=== PATIENT | female | born 1990 | race Caucasian/White ===

== ENCOUNTER 2016-08-27 18:08 | Inpatient (IN) | payer OTHER ==
[2016-08-27] MEDS ORDERED: ALBUTEROL SO4 2.5/IPRATROPIUM 0.5 INH SOL 3 ML VIAL.NEB. NEB ONE ×2 (18:24→18:51)
[2016-08-27 18:51] LABS: BASOPHIL 0.1 % (0-2.0); EOSINOPHIL 0.1 % (0-4.5); MCHC 33.8 g/dl (32.0-36.0); MEAN CELL VOLUME 97.8 fl (80-96); MEAN PLT VOLUME 9.3 fl (7.5-11.1); NEUTROPHILS 88.9 % (42.8-82.8); PLATELET COUNT 155 K/MM3 (134-434); RDW 15.6 % (11.6-15.6); WHITE BLOOD COUNT 12.1 K/mm3 (4.0-10.0)
[2016-08-27 18:55] LABS: URINE APPEARANCE CLEAR; URINE BILIRUBIN NEGATIVE (NEGATIVE); URINE BLOOD NEGATIVE (NEGATIVE); URINE COLOR YELLOW; URINE GLUCOSE (UA) NEGATIVE (NEGATIVE); URINE KETONE NEGATIVE (NEGATIVE); URINE NITRITE NEGATIVE (NEGATIVE); URINE PROTEIN NEGATIVE (NEGATIVE); URINE UROBILINOGEN NEGATIVE E.U./dl (0.2-1.0)
[2016-08-27 18:56] LABS: URINE LEUK ESTERASE TRACE (NEGATIVE)
--- NOTE | 2016-08-27 18:59 | PDOC ---
History of Present Illness - General History Source: Snf Records Exam Limitations: Clinical Condition - History of Present Illness Initial Comments: 08/27/16 19:45 The patient is a 25-year-old female from [facility], with a significant past medical history of cerebral palsy, severe mental retardation, seizure disorder with multiple seizures per day, PEG, spastic quadriparesis, GERD, scoliosis, visual impairment, who presents to the ED for upper respiratory infection. Pt was noted to be in respiratory distress with O2 saturations of 86% and tachypnea. HPI is limited because pt is nonverbal. <Trini Hodge - Last Filed: 08/27/16 19:45> - General History Source: Care Provider, EMS, Snf Records Exam Limitations: Clinical Condition <Srinivas Boggs - Last Filed: 08/27/16 20:45> - General Chief Complaint: Respiratory Stated Complaint: DIFFICULT BREATHING Time Seen by Provider: 08/27/16 18:21 Past History <Trini Hodge - Last Filed: 08/27/16 19:45> - Past Medical History GI Disorders: Yes (GERD. GTUBE.) Seizures: Yes (EPILEPSY.) Other medical history: CONGENITAL QUAD. PROFOUND MR. CP. VISUAL IMPAIRMENT. CORTICAL BLINDNESS. - Surgical History Abdominal Surgery: Yes GI Surgery: Yes (GTUBE.) Neurologic Surgery: Yes (SPINAL SX.) - Psycho/Social/Smoking Cessation Hx Anxiety: No Suicidal Ideation: No Smoking History: Never smoked Have you smoked in the past 12 months: No Number of Cigarettes Smoked Daily: 0 Hx Alcohol Use: No Drug/Substance Use Hx: No Substance Use Type: None Hx Substance Use Treatment: No <Srinivas Boggs - Last Filed: 08/27/16 20:45> - Past Medical History Allergies/Adverse Reactions: Allergies Allergy/AdvReac Type Severity Reaction Status Date / Time No Known Allergies Allergy Verified 08/27/16 18:35 Home Medications: Ambulatory Orders Albuterol 2.5/Ipratropium 0.5 [Duoneb -] 1 neb NEB Q4H PRN 02/26/16 Baclofen 5 mg GT TID 02/26/16 Cholecalciferol (Vitamin D3) [Vitamin D3] 2,000 unit GT DAILY 02/26/16 Diazepam Rectal Gel [Diastat Rectal Gel -] 10 mg RC PRN 02/26/16 Lactulose 10 gm GT TID 02/26/16 Nutritional Supplement [Promote] 237 ml GT DAILY 02/26/16 Oxcarbazepine [Trileptal Susp 300 mg/5 mL -] 180 mg GT DAILY 02/26/16 Oxcarbazepine [Trileptal Susp 300 mg/5 mL -] 210 mg GT HS 02/26/16 Topiramate 225 mg GT BID 02/26/16 Levetiracetam [Keppra Oral Solution -] 1,500 mg GT BID 08/27/16 Multivit-Min/FA/Lycopen/Lutein [Vitrum 50+ Senior Tablet] 1 each GT DAILY Sennosides/Docusate Sodium [Senna-S Tablet] 2 each GT HS 08/27/16 Review of Systems - Review of Systems Able to Perform ROS?: No Comments:: 08/27/16 19:46 ROS unable to obtain because patient is nonverbal. <Trini Hodge - Last Filed: 08/27/16 19:45> *Physical Exam - Vital Signs Last Vital Signs Temp Pulse Resp BP Pulse Ox 97.4 F L 93 H 38 H 126/67 97 08/27/16 18:53 08/27/16 19:25 08/27/16 19:25 08/27/16 19:25 08/27/16 19:25 - Physical Exam Comments: 08/27/16 19:46 GENERAL: Alert. (+)Nonverbal, spastic quadriparesis, tachypnea in the 20s HEAD: No signs of trauma EYES: PERRLA, EOMI, sclera anicteric, conjunctiva clear ENT: Auricles normal inspection, hearing grossly normal, nares patent, oropharynx clear without exudates. Moist mucosa NECK: Normal ROM, supple, no lymphadenopathy, JVD, or masses LUNGS: (+)Transmitted upper airway sound with wheezing and rhonchi in the right lower base. HEART: Regular rate and rhythm, normal S1 and S2, no murmurs, rubs or gallops ABDOMEN: Soft, nontender, normoactive bowel sounds. No guarding, no rebound. No masses. Peg is clean, dry, and intact EXTREMITIES: No clubbing or cyanosis. No cords, erythema, or tenderness NEUROLOGICAL: (+)Severe mental retardation, seizure disorder with multiple seizures SKIN: Warm, Dry, normal turgor, no rashes or lesions noted <Trini Hodge - Last Filed: 08/27/16 19:45> - Vital Signs Last Vital Signs Temp Pulse Resp BP Pulse Ox 90 36 H 129/78 98 08/27/16 18:27 08/27/16 18:27 08/27/16 18:27 08/27/16 18:49 <Srinivas Boggs - Last Filed: 08/27/16 20:45> Heart Score/ECG Review #1 ECG reviewed & interpreted by me at: 18:30 08/27/16 19:01 NSR 89, no std/elizabeth, TWI III, normal axis, normal intervals, QTC 455 msec <Srinivas Boggs - Last Filed: 08/27/16 20:45> ED Treatment Course - LABORATORY CBC & Chemistry Diagram: 08/27/16 18:30 08/27/16 18:30 - ADDITIONAL ORDERS Additional order review: Laboratory Results 08/27/16 08/27/16 08/27/16 18:50 18:30 18:30 INR PTT (Actin FS) Sodium Potassium Chloride Carbon Dioxide Anion Gap BUN Creatinine Creat Clearance w eGFR Random Glucose Lactic Acid 1.968 Calcium Total Bilirubin AST ALT Alkaline Phosphatase Creatine Kinase Troponin I Total Protein Albumin Urine Color Yellow Urine Appearance Clear Urine pH 7.0 D Ur Specific [place] 1.017 Urine Protein Negative Urine Glucose (UA) Negative Urine Ketones Negative Urine Blood Negative Urine Nitrite Negative Urine Bilirubin Negative Urine Urobilinogen Negative Ur Leukocyte Esterase Trace H Urine RBC None Urine WBC 5 Ur Epithelial Cells Rare Urine Bacteria Rare Urine Mucus Rare Blood Type Cancelled Antibody Screen Cancelled Spec Expiration Date Cancelled 08/27/16 08/27/16 18:30 18:30 INR 1.03 PTT (Actin FS) 44.9 H Sodium Cancelled Potassium Cancelled Chloride Cancelled Carbon Dioxide Cancelled Anion Gap Cancelled BUN Cancelled Creatinine Cancelled Creat Clearance w eGFR Cancelled Random Glucose Cancelled Lactic Acid Calcium Cancelled Total Bilirubin Cancelled AST Cancelled ALT Cancelled Alkaline Phosphatase Cancelled Creatine Kinase Cancelled Troponin I Cancelled Total Protein Cancelled Albumin Cancelled Urine Color Urine Appearance Urine pH Ur Specific [place] Urine Protein Urine Glucose (UA) Urine Ketones Urine Blood Urine Nitrite Urine Bilirubin Urine Urobilinogen Ur Leukocyte Esterase Urine RBC Urine WBC Ur Epithelial Cells Urine Bacteria Urine Mucus Blood Type Antibody Screen Spec Expiration Date 08/27/16 18:30 RBC 3.89 MCV 97.8 H MCHC 33.8 RDW 15.6 D MPV 9.3 Neutrophils % 88.9 H Lymphocytes % 7.3 L D Monocytes % 3.6 L Eosinophils % 0.1 D Basophils % 0.1 - Medications Given in the ED: ED Medications Discontinued Medications Generic Name Dose Route Start Last Admin Trade Name Freq PRN Reason Stop Dose Admin Albuterol/Ipratropium 1 amp 08/27/16 18:51 08/27/16 18:51 Duoneb - NEB 08/27/16 18:52 1 amp NOW ONE Administration <Trini Hodge - Last Filed: 08/27/16 19:45> - LABORATORY CBC & Chemistry Diagram: 08/27/16 18:30 08/27/16 19:15 - RADIOLOGY Radiology Studies Ordered: Category Date Time Status CHEST X-RAY PORTABLE* [RAD] Stat Radiology 08/27/16 18:24 Ordered - Medications Given in the ED: ED Medications Discontinued Medications Generic Name Dose Route Start Last Admin Trade Name Freq PRN Reason Stop Dose Admin Albuterol/Ipratropium 1 amp 08/27/16 18:51 08/27/16 18:51 Duoneb - NEB 08/27/16 18:52 1 amp NOW ONE Administration <Srinivas Boggs - Last Filed: 08/27/16 20:45> Medical Decision Making - Medical Decision Making 08/27/16 18:59 A portion of this note was documented by scribe services under my direction. I have reviewed the details of the note, within reason, and agree with the documentation with the following case summary and management plan written by me. Patient treated in the ED. Patient arrives by ambulance to the emergency department. Nursing notes are reviewed and incorporated into the medical decision-making. Vital signs reviewed. Peripheral IV access obtained by the nurse, laboratory studies are drawn and sent, reviewed and interpreted by myself. Vital Signs Temp Pulse Resp BP Pulse Ox 90 36 H 129/78 98 08/27/16 18:27 08/27/16 18:27 08/27/16 18:27 08/27/16 18:49 25-year-old female from [facility], past medical history cerebral palsy, severe mental retardation, seizure disorder with multiple seizures per day, PEG, spastic quadriparesis, GERD, scoliosis, visual impairment presents to the emergency department for upper respiratory infection. Patient noted today to be restaurant distress with O2 saturations of 86% and tachypnea. The patient was placed on supplement auction which improved the oxygenation. Patient is nonverbal and unable to provide more history. The patient had a previous admission to the hospital in late 2016 for urinary tract infection pneumonia. Adult sepsis protocol initiated. I suspect the patient may potentially have pneumonia. There is some crackles and rales at the right base of the lung with has been upper airway sounds. Given the hypoxia, the patient will be admitted to the hospital for further evaluation. As per bolt cutter, pt is rectally afebrile. 08/27/16 20:44 Chest xray reivewed. Clinically patient has a pneumonia. Labs reviewed. Vanc, zosyn, azithromycin initiated. case discussed with [place] hospitalist. Accepted to med/surg admission. <Srinivas Boggs - Last Filed: 08/27/16 20:45> *DC/Admit/Observation/Transfer - Attestations Scribe Attestion: 08/27/16 19:51 Documentation prepared by Trini Hodge, acting as clinical specialist medical device for Srinivas Boggs MD. <Trini Hodge - Last Filed: 08/27/16 19:45> - Discharge Dispostion Admit: Yes <Srinivas Boggs - Last Filed: 08/27/16 20:45> Diagnosis at time of Disposition: Pneumonia Qualifiers: Pneumonia type: due to unspecified organism Laterality: unspecified laterality Lung location: unspecified part of lung Qualified Code(s): J18.9 - Pneumonia, unspecified organism - Discharge Dispostion Condition at time of disposition: Guarded - Referrals Referrals: Gianfranco Mosher MD, MD [Primary Care Provider] -
[2016-08-27 19:03] LABS: INR 1.03 (0.82-1.09); PROTHROMBIN TIME (PATIENT) 11.3 SEC (9.98-11.88)
[2016-08-27 19:03] LABS: URINE BACTERIA RARE /hpf (NONE SEEN); URINE MUCUS RARE; URINE WBC 5 /hpf (3-5)
[2016-08-27 19:06] LABS: ACTIVATED PTT 44.9 SECONDS (26.9-34.4)
[2016-08-27] MEDS ORDERED: VANCOMYCIN 1,000 MG in DEXTROSE 5%-WATER - 250 ML IVPB ONE (19:35)
[2016-08-27] MEDS ORDERED: AZITHROMYCIN IVPB 500 MG in DEXTROSE 5%-WATER - 250 ML IVPB ONE (19:35)
[2016-08-27] MEDS ORDERED: PIPERACILLIN/TAZOB 3.375 GM/50 ML PRE-DOCKED IVPB ONE (19:35)
[2016-08-27] MEDS ORDERED: AZITHROMYCIN IVPB 250 ML IVPB ONE (19:52)
[2016-08-27] MEDS ORDERED: VANCOMYCIN 1 GRAM (PRE-DOCKED) 250 ML IVPB ONE (19:53)
[2016-08-27] MEDS ORDERED: PIPERACILLIN/TAZOB 3.375 GM 50 ML IVPB ONE (19:53)
[2016-08-27 19:55] LABS: INR 1.04 (0.82-1.09); PROTHROMBIN TIME (PATIENT) 11.4 SEC (9.98-11.88)
[2016-08-27 19:57] LABS: ACTIVATED PTT 43.5 SECONDS (26.9-34.4)
[2016-08-27 20:05] LABS: ALBUMIN 2.8 g/dl (3.4-5.0); ANION GAP 10 (8-16); BILIRUBIN,TOTAL 0.2 mg/dL (0.2-1.0); CALCIUM 8.9 mg/dL (8.5-10.1); CO2 23 mmol/L (21-32); CREATININE 0.4 mg/dL (0.55-1.02); GLUCOSE,RANDOM 157 mg/dL (74-106); MAGNESIUM 1.9 mg/dL (1.8-2.4); SGOT/AST 50 U/L (15-37); SGPT/ALT 105 U/L (12-78); TOT PROT 6.6 g/dl (6.4-8.2)
[2016-08-27 20:08] LABS: ALK PHOS 262 U/L (45-117); TROPONIN I < 0.02 ng/ml (0.00-0.05)
[2016-08-27] MEDS ORDERED: ALBUTEROL SO4 0.083% IH SOL 2.5 MG/3 ML VIAL.NEB. NEB PRN (20:57)
[2016-08-27] MEDS ORDERED: ALBUTEROL SO4 2.5/IPRATROPIUM 0.5 INH SOL 3 ML VIAL.NEB. NEB PRN (21:01)
--- NOTE | 2016-08-27 21:04 | HP ---
CHIEF COMPLAINT: Difficulty breathing PCP:Gianfranco Mosher MD HISTORY OF PRESENT ILLNESS: 25 yo F from [facility], PMHx of cerebral palsy, severe MR, seizure disorder with multiple seizures per day, PEG, spastic quadriparesis, GERD, scoliosis, visual impairment presents to the emergency department for SOB 2/2 possible upper respiratory infection. Patient noted today to be respiratory distress with O2 sat of 86% and tachypnea. Improved with supplemental oxygen. Patient is nonverbal and unable to provide more history. She was recently hospitalized for UTI in 2015. ER course was notable for: (1)CXR shows PNA- cultures pending and Influenza swab taken (2)WBC - 12.1-Given Vanco, Zosyn , and Azithromycin x1 (3)Oxygenation improved on supplemental O2 via [place] Recent Travel:Denies PAST MEDICAL HISTORY:CONGENITAL QUAD. PROFOUND MR. CP. VISUAL IMPAIRMENT. CORTICAL BLINDNESS. PAST SURGICAL HISTORY: Peg tube placement. Social History: Smoking:Never smoked Alcohol:no Drugs: no Family History: Allergies No Known Allergies Allergy (Verified 08/27/16 18:35) HOME MEDICATIONS: Home Medications Medication Instructions Recorded Albuterol 2.5/Ipratropium 0.5 1 neb NEB Q4H PRN 02/26/16 [Duoneb -] Baclofen 5 mg GT TID 02/26/16 Cholecalciferol (Vitamin D3) 2,000 unit GT DAILY 02/26/16 [Vitamin D3] Diazepam Rectal Gel [Diastat 10 mg RC PRN 02/26/16 Rectal Gel -] Lactulose 10 gm GT TID 02/26/16 Nutritional Supplement [Promote] 237 ml GT DAILY 02/26/16 Oxcarbazepine [Trileptal Susp 300 180 mg GT DAILY 02/26/16 mg/5 mL -] Oxcarbazepine [Trileptal Susp 300 210 mg GT HS 02/26/16 mg/5 mL -] Topiramate 225 mg GT BID 02/26/16 Levetiracetam [Keppra Oral 1,500 mg GT BID 08/27/16 Solution -] Multivit-Min/FA/Lycopen/Lutein 1 each GT DAILY 08/27/16 [Vitrum 50+ Senior Tablet] Sennosides/Docusate Sodium 2 each GT HS 08/27/16 [Senna-S Tablet] REVIEW OF SYSTEMS Unable to obtain as patient is non-verbal PHYSICAL EXAMINATION Vital Signs - 24 hr 08/27/16 08/27/16 08/27/16 18:27 18:48 18:49 Temperature Pulse Rate 90 Pulse Rate [ Apical] Respiratory 36 H Rate Blood Pressure 129/78 Blood Pressure [Right Arm] O2 Sat by Pulse 95 99 98 Oximetry (%) 08/27/16 08/27/16 18:53 19:25 Temperature 97.4 F L Pulse Rate Pulse Rate [ 93 H Apical] Respiratory 38 H Rate Blood Pressure Blood Pressure 126/67 [Right Arm] O2 Sat by Pulse 97 Oximetry (%) GENERAL: Awake,moderate distress. HEAD: Normal with no signs of trauma. EYES: Pupils equal, round and reactive to light, sclera anicteric, conjunctiva clear. EARS, NOSE, THROAT: Ears normal, nares patent, dry mucous membranes. NECK: supple , no JVD LUNGS:Scattered coarse rhonchi, decreased breath sounds >R . No accessory muscle use. HEART: Regular rate and rhythm, normal S1 and S2 without murmur, rub or gallop. ABDOMEN: Soft, PEG RUQ, nontender, not distended, normoactive bowel sounds, no guarding, no rebound, no masses. No hepatomegaly or splenomegaly. MUSCULOSKELETAL: Multiple contractures of hands and feet. No CVA tenderness. UPPER EXTREMITIES: 2+ pulses, warm, well-perfused. No cyanosis. No clubbing. No peripheral edema. LOWER EXTREMITIES: 1+ pulses, warm, No peripheral edema. NEUROLOGICAL: (+) severe mental retardation PSYCHIATRIC: Cooperative. Good eye contact. Appropriate mood and affect. SKIN: Warm, dry, normal turgor, no rashes or lesions noted. Laboratory Results - last 24 hr 08/27/16 08/27/16 08/27/16 18:30 18:30 18:30 WBC 12.1 H D RBC 3.89 Hgb 12.9 D Hct 38.1 MCV 97.8 H MCHC 33.8 RDW 15.6 D Plt Count 155 MPV 9.3 Neutrophils % 88.9 H Lymphocytes % 7.3 L D Monocytes % 3.6 L Eosinophils % 0.1 D Basophils % 0.1 INR 1.03 PTT (Actin FS) 44.9 H Sodium Cancelled Potassium Cancelled Chloride Cancelled Carbon Dioxide Cancelled Anion Gap Cancelled BUN Cancelled Creatinine Cancelled Creat Clearance w eGFR Cancelled Random Glucose Cancelled Lactic Acid Calcium Cancelled Phosphorus Magnesium Total Bilirubin Cancelled AST Cancelled ALT Cancelled Alkaline Phosphatase Cancelled Creatine Kinase Cancelled CK-MB (CK-2) Troponin I Cancelled Total Protein Cancelled Albumin Cancelled Urine Color Urine Appearance Urine pH Ur Specific [place] Urine Protein Urine Glucose (UA) Urine Ketones Urine Blood Urine Nitrite Urine Bilirubin Urine Urobilinogen Ur Leukocyte Esterase Urine RBC Urine WBC Ur Epithelial Cells Urine Bacteria Urine Mucus Blood Type Antibody Screen Spec Expiration Date 08/27/16 08/27/16 08/27/16 18:30 18:30 18:50 WBC RBC Hgb Hct MCV MCHC RDW Plt Count MPV Neutrophils % Lymphocytes % Monocytes % Eosinophils % Basophils % INR PTT (Actin FS) Sodium Potassium Chloride Carbon Dioxide Anion Gap BUN Creatinine Creat Clearance w eGFR Random Glucose Lactic Acid 1.968 Calcium Phosphorus Magnesium Total Bilirubin AST ALT Alkaline Phosphatase Creatine Kinase CK-MB (CK-2) Troponin I Total Protein Albumin Urine Color Yellow Urine Appearance Clear Urine pH 7.0 D Ur Specific [place] 1.017 Urine Protein Negative Urine Glucose (UA) Negative Urine Ketones Negative Urine Blood Negative Urine Nitrite Negative Urine Bilirubin Negative Urine Urobilinogen Negative Ur Leukocyte Esterase Trace H Urine RBC None Urine WBC 5 Ur Epithelial Cells Rare Urine Bacteria Rare Urine Mucus Rare Blood Type Cancelled Antibody Screen Cancelled Spec Expiration Date Cancelled 08/27/16 08/27/16 19:15 19:15 WBC RBC Hgb Hct MCV MCHC RDW Plt Count MPV Neutrophils % Lymphocytes % Monocytes % Eosinophils % Basophils % INR 1.04 PTT (Actin FS) 43.5 H Sodium 140 Potassium 3.5 D Chloride 107 Carbon Dioxide 23 Anion Gap 10 BUN 17 Creatinine 0.4 L D Creat Clearance w eGFR > 60 Random Glucose 157 H D Lactic Acid Calcium 8.9 Phosphorus 3.0 Magnesium 1.9 Total Bilirubin 0.2 AST 50 H D ALT 105 H D Alkaline Phosphatase 262 H D Creatine Kinase 271 H D CK-MB (CK-2) 6.188 H Troponin I < 0.02 Total Protein 6.6 Albumin 2.8 L Urine Color Urine Appearance Urine pH Ur Specific [place] Urine Protein Urine Glucose (UA) Urine Ketones Urine Blood Urine Nitrite Urine Bilirubin Urine Urobilinogen Ur Leukocyte Esterase Urine RBC Urine WBC Ur Epithelial Cells Urine Bacteria Urine Mucus Blood Type Antibody Screen Spec Expiration Date EKG: NSR 89, no std/elizabeth, TWI III, normal axis, normal intervals, QTC 455 msec ASSESSMENT/PLAN: 25 yo F from [facility], PMHx of cerebral palsy, severe MR, seizure disorder with multiple seizures per day, PEG, spastic quadriparesis, GERD, scoliosis, visual impairment admitted for PNA. Problem List - Problem (1) Pneumonia Assessment/Plan: * Admitted to med/surg * CXR show possible PNA * Given stat dose of Vanco, Zosyn , Azithromycin * Consult ID- Dr. Rider * Will continue with Rocephin and Azithromycin * Solumedrol 40mg IV BID * Duonebs QID PRN * Supplemental O2 to maintain SpO2 >90% * Aspiration precautions. (2) Acute respiratory failure with hypoxia Assessment/Plan: * Supplemental O2 via [place] * STAT ABG (3) Seizure disorder Assessment/Plan: * Continue * Levetiracetam (Keppra Oral Solution -) 1,500 mg GT BID * Topiramate 200 mg/ Topiramate (25 mg) 225 mg GT BID HARIS (4) Cerebral palsy (5) Functional quadriplegia Assessment/Plan: * PEG tube in place * will resume tube feeds. * daily assessment. * turn patient Q2H * Physical therapy request. (6) Mental retardation (7) DVT prophylaxis Assessment/Plan: * Heparin 5000 units BID Visit type - Emergency Visit Emergency Visit: Yes ED Registration Date: 08/27/16 Care time: The patient presented to the Emergency Department on the above date and was hospitalized for further evaluation of their emergent condition. - New Patient This patient is new to me today: Yes Date on this admission: 08/28/16 - Critical Care Critical Care patient: No
[2016-08-27] MEDS ORDERED: diazePAM ACUDIAL 5-7.5-10 MG 1 EACH KIT RC PRN (21:15)
[2016-08-27] MEDS ORDERED: TOPIRAMATE 25 MG TABLET (FP) NR SCH (22:00)
--- NOTE | 2016-08-27 23:00 | PN ---
<Lucinda Gutierrez - Last Filed: 08/27/16 22:59> Teaching Attending Note Name of Resident: King Roberts <Bayron Pascual - Last Filed: 08/28/16 02:05> Teaching Attending Note ATTENDING PHYSICIAN STATEMENT I saw and evaluated the patient. I reviewed the resident's note and discussed the case with the resident. I agree with the resident's findings and plan as documented. SUBJECTIVE: 25 year old female who presented with multiple admissions for respiratory distress secondary to HCAP recently, sent from [facility] for respiratory distress with episode of desaturation to 86% and tachypnea. There is concern for respiratory infection. On evaluation in ED found to be with leukocytosis and stating and vancomycin and azithromycin. Past Medical History: cerebral palsys, severe mental retardation, seizure disorder, PEG, spastic quadriparesis, GERD, scoliosis, visual impairment. OBJECTIVE: Vital Signs: Last Vital Signs Temp Pulse Resp BP Pulse Ox 96.0 F L 84 26 H 119/70 95 08/27/16 21:04 08/27/16 21:04 08/27/16 21:04 08/27/16 21:04 08/27/16 21:04 GENERAL: (+) Nonverbal. Awake. HEENT: Atraumatic. PERRLA, EOMI. Moist mucosa. No JVD LUNGS: (+) Diffuse rhonchi. HEART: Regular rate and rhythm, normal S1 and S2, no murmurs, rubs or gallops, peripheral pulses normal and equal bilaterally. ABDOMEN: Soft, nontender, normoactive bowel sounds. No guarding, no rebound. No masses EXTREMITIES: Normal inspection, Normal range of motion, no edema. No clubbing or cyanosis. NEUROLOGICAL: (+) severe mental retardation SKIN: Warm, Dry, normal turgor, no rashes or lesions noted. Labs: CBCD WBC 12.1 K/mm3 (4.0-10.0) H D 08/27/16 18:30 RBC 3.89 M/mm3 (3.60-5.2) 08/27/16 18:30 Hgb 12.9 GM/dL (10.7-15.3) D 08/27/16 18:30 Hct 38.1 % (32.4-45.2) 08/27/16 18:30 MCV 97.8 fl (80-96) H 08/27/16 18:30 MCHC 33.8 g/dl (32.0-36.0) 08/27/16 18:30 RDW 15.6 % (11.6-15.6) D 08/27/16 18:30 Plt Count 155 K/MM3 (134-434) 08/27/16 18:30 MPV 9.3 fl (7.5-11.1) 08/27/16 18:30 CMP Sodium 140 mmol/L (136-145) 08/27/16 19:15 Potassium 3.5 mmol/L (3.5-5.1) D 08/27/16 19:15 Chloride 107 mmol/L (98-107) 08/27/16 19:15 Carbon Dioxide 23 mmol/L (21-32) 08/27/16 19:15 Anion Gap 10 (8-16) 08/27/16 19:15 BUN 17 mg/dL (7-18) 08/27/16 19:15 Creatinine 0.4 mg/dL (0.55-1.02) L D 08/27/16 19:15 Creat Clearance w eGFR > 60 (>60) 08/27/16 19:15 Calcium 8.9 mg/dL (8.5-10.1) 08/27/16 19:15 Total Bilirubin 0.2 mg/dL (0.2-1.0) 08/27/16 19:15 AST 50 U/L (15-37) H D 08/27/16 19:15 ALT 105 U/L (12-78) H D 08/27/16 19:15 Alkaline Phosphatase 262 U/L (45-117) H D 08/27/16 19:15 Total Protein 6.6 g/dl (6.4-8.2) 08/27/16 19:15 Albumin 2.8 g/dl (3.4-5.0) L 08/27/16 19:15 Imaging: CXR Impression: diffuse bilateral infiltrate. ASSESSMENT AND PLAN : 1. HCAP Pneumonia -Stat dose Azithromycin, Vanco, and Zosyn -Duonebs QID PRN -O2 -ABG -ID consult -Follow sputum and blood cultures -Frequent suction 2. DVT PPX -Heparin 500 units BID Continue home medications. Admit to med surg. Documentation prepared by Bayron Pascual, acting as certified medical records coder for Dr. Lucinda Gutierrez MD.
[2016-08-28 02:02] VITALS: BMI 24.7
[2016-08-28] MEDS ORDERED: levETIRAcetam 500 MG/5 ML ORAL SOLUTION (UNIT-DOSE CUPS) PO ONE (02:15)
[2016-08-28] MEDS ORDERED: TOPIRAMATE 25 MG TABLET (FP) PO ONE (02:16)
[2016-08-28] MEDS ORDERED: OXcarbazepine 300 MG/5 ML 250 ML BULK BOTTLE GT ONE (02:18)
[2016-08-28] MEDS ORDERED: methylPREDNISolone NA SUCC 40 MG/1 ML VIAL IVPB ONE (02:20)
[2016-08-28] MEDS ORDERED: TOPIRAMATE GT ONE (02:30)
[2016-08-28] MEDS: LACTULOSE 20 GM/30 ML UDC (FOR ORAL USE ONLY) GT SCH ×4 (02:31→21:46)
[2016-08-28] MEDS: levETIRAcetam 500 MG/5 ML ORAL SOLUTION (UNIT-DOSE CUPS) GT SCH ×3 (02:32→22:01)
[2016-08-28] MEDS: BACLOFEN 10 MG TABLET (FP) GT SCH ×4 (02:32→21:47)
[2016-08-28] MEDS: SENNOSIDES/DOCUSATE COMBO (SENNA PLUS) TABLET (UD) PO SCH ×2 (02:32→21:47)
[2016-08-28] MEDS: HEPARIN NA (PORCINE) 5,000 UNITS/ML 1ML VIAL SQ SCH ×3 (02:32→21:48)
[2016-08-28] MEDS: methylPREDNISolone NA SUCC 40 MG/1 ML VIAL IVPB SCH ×3 (02:33→21:48)
[2016-08-28] MEDS: TOPIRAMATE GT SCH ×3 (02:33→22:02)
[2016-08-28] MEDS: OXcarbazepine 300 MG/5 ML 250 ML BULK BOTTLE GT SCH ×4 (02:33→22:02)
--- NOTE | 2016-08-28 08:00 | PN ---
Physical Exam: SUBJECTIVE: Patient seen and examined Patient is having lots of secretions. OBJECTIVE: Vital Signs Temperature 97.3 F L 08/28/16 06:43 Pulse Rate 80 08/28/16 06:43 Respiratory Rate 20 08/28/16 06:43 Blood Pressure 120/62 08/28/16 06:43 O2 Sat by Pulse Oximetry (%) 95 08/27/16 23:57 GENERAL: The patient is awake, alert, and fully oriented, in no acute distress. HEAD: Normal with no signs of trauma. EYES: PERRL, extraocular movements intact, sclera anicteric, conjunctiva clear. ENT: Ears normal, oropharynx clear without exudates, moist mucous membranes. NECK: Trachea midline, full range of motion, supple. LUNGS: Breath sounds equal, clear to auscultation bilaterally, no wheezes, no crackles, no accessory muscle use. HEART: Regular rate and rhythm, S1, S2 without murmur, rub or gallop. ABDOMEN: Soft, nontender, nondistended, normoactive bowel sounds, no guarding, no rebound, no hepatosplenomegaly, no masses. EXTREMITIES: 2+ pulses, warm, well-perfused, no edema. NEUROLOGICAL: Cranial nerves II through XII grossly intact. Normal speech, gait not observed. PSYCH: Normal mood, normal affect. SKIN: Warm, dry, normal turgor, no rashes or lesions noted CBCD WBC 13.2 K/mm3 (4.0-10.0) H 08/28/16 07:50 RBC 3.33 M/mm3 (3.60-5.2) L 08/28/16 07:50 Hgb 10.9 GM/dL (10.7-15.3) D 08/28/16 07:50 Hct 32.8 % (32.4-45.2) 08/28/16 07:50 MCV 98.6 fl (80-96) H 08/28/16 07:50 MCHC 33.3 g/dl (32.0-36.0) 08/28/16 07:50 RDW 15.3 % (11.6-15.6) 08/28/16 07:50 Plt Count 118 K/MM3 (134-434) L D 08/28/16 07:50 MPV 9.1 fl (7.5-11.1) 08/28/16 07:50 CMP Sodium 135 mmol/L (136-145) L 08/28/16 07:50 Potassium 5.1 mmol/L (3.5-5.1) D 08/28/16 07:50 Chloride 102 mmol/L (98-107) 08/28/16 07:50 Carbon Dioxide 25 mmol/L (21-32) 08/28/16 07:50 Anion Gap 8 (8-16) 08/28/16 07:50 BUN 16 mg/dL (7-18) 08/28/16 07:50 Creatinine 0.4 mg/dL (0.55-1.02) L 08/28/16 07:50 Creat Clearance w eGFR > 60 (>60) 08/28/16 07:50 Random Glucose 73 mg/dL (74-106) L D 08/28/16 07:50 Calcium 8.7 mg/dL (8.5-10.1) 08/28/16 07:50 Total Bilirubin 0.2 mg/dL (0.2-1.0) 08/28/16 07:50 AST 47 U/L (15-37) H 08/28/16 07:50 ALT 108 U/L (12-78) H 08/28/16 07:50 Alkaline Phosphatase 247 U/L (45-117) H 08/28/16 07:50 Total Protein 6.4 g/dl (6.4-8.2) 08/28/16 07:50 Albumin 2.7 g/dl (3.4-5.0) L 08/28/16 07:50 CARDIAC ENZYMES Creatine Kinase 271 IU/L (26-192) H D 08/27/16 19:15 Troponin I < 0.02 ng/ml (0.00-0.05) 08/27/16 19:15 Active Medications Generic Name Dose Route Start Last Admin Trade Name Freq PRN Reason Stop Dose Admin Albuterol Sulfate 1 amp 08/27/16 20:57 Ventolin 0.083% Nebulizer Soln - NEB Q4H PRN SHORT OF BREATH/WHEEZING Albuterol/Ipratropium 1 amp 08/27/16 21:01 Duoneb - NEB Q4H PRN WHEEZING Azithromycin 500 mg 08/28/16 10:00 Zithromax 500mg Ivpb (Pre-Docked) IVPB DAILY [facility] Baclofen 5 mg 08/27/16 22:00 08/28/16 06:10 Lioresal - GT 5 mg TID [facility] Administration Ceftriaxone Sodium 1 gm 08/28/16 10:00 Rocephin 1gm Ivpb (Pre-Docked) IVPB DAILY [facility] Protocol Cholecalciferol 2,000 unit 08/28/16 10:00 Vitamin D3 - GT DAILY [facility] Diazepam 10 mg 08/27/16 21:15 Diastat Rectal Gel - RC PRN PRN SEIZURE Heparin Sodium (Porcine) 5,000 unit 08/27/16 22:00 08/28/16 02:32 Heparin - SQ Not Given BID [facility] Lactulose 10 gm 08/27/16 22:00 08/28/16 06:10 Cephulac (Oral Use) GT 10 gm TID [facility] Administration Levetiracetam 1,500 mg 08/27/16 22:00 08/28/16 02:32 Keppra Oral Solution - GT Not Given BID [facility] Methylprednisolone Sodium Succinate 40 mg 08/27/16 22:00 08/28/16 02:33 Solu-Medrol - IVPB Not Given BID [facility] Multivitamins 5 ml 08/28/16 10:00 Thera-Plus - PO DAILY [facility] Oxcarbazepine 210 mg 08/27/16 22:00 08/28/16 02:54 Trileptal GT 210 mg HS [facility] Administration Oxcarbazepine 180 mg 08/28/16 10:00 Trileptal GT DAILY [facility] Senna/Docusate Sodium 2 tablet 08/27/16 22:00 08/28/16 02:32 Pericolace - PO Not Given HS [facility] Topiramate 200 mg/ Topiramate 225 mg 08/27/16 22:00 08/28/16 02:33 25 mg GT Not Given BID [facility] CXR: Impression: diffuse bilateral infiltrate. ASSESSMENT AND PLAN : Patient is a 25 year old female who presented with multiple admissions for respiratory distress secondary to HCAP recently, sent from [facility] for respiratory distress with episode of desaturation to 86% and was found to be tachypneac # HCAP Pneumonia on Azithromycin and Rocephin given Vanco, and Zosyn; Duonebs QID PRN; O2; ID consult -Follow sputum and blood cultures ;Frequent suctioning needed, chest PT, diatary consult for feeding. DVT PPX : Heparin 500 units BID Visit type - Emergency Visit Emergency Visit: Yes ED Registration Date: 08/27/16 Care time: The patient presented to the Emergency Department on the above date and was hospitalized for further evaluation of their emergent condition. - New Patient This patient is new to me today: Yes Date on this admission: 08/28/16 - Critical Care Critical Care patient: No
[2016-08-28 09:27] LABS: BASOPHIL 0.1 % (0-2.0); MCH 32.8 pg (25.7-33.7); MCHC 33.3 g/dl (32.0-36.0); MEAN CELL VOLUME 98.6 fl (80-96); MEAN PLT VOLUME 9.1 fl (7.5-11.1); PLATELET COUNT 118 K/MM3 (134-434); RDW 15.3 % (11.6-15.6); WHITE BLOOD COUNT 13.2 K/mm3 (4.0-10.0)
[2016-08-28 09:45] LABS: ALBUMIN 2.7 g/dl (3.4-5.0); ANION GAP 8 (8-16); CALCIUM 8.7 mg/dL (8.5-10.1); CO2 25 mmol/L (21-32); GLUCOSE,RANDOM 73 mg/dL (74-106); MAGNESIUM 2.2 mg/dL (1.8-2.4)
[2016-08-28 09:50] LABS: ALK PHOS 247 U/L (45-117); BILIRUBIN,TOTAL 0.2 mg/dL (0.2-1.0); CREATININE 0.4 mg/dL (0.55-1.02); PHOSPHOROUS 4.5 mg/dL (2.5-4.9); SGOT/AST 47 U/L (15-37); SGPT/ALT 108 U/L (12-78); TOT PROT 6.4 g/dl (6.4-8.2)
[2016-08-28] MEDS ORDERED: AZITHROMYCIN IVPB 500 MG in DEXTROSE 5%-WATER - 250 ML IVPB SCH (10:00)
[2016-08-28] MEDS ORDERED: cefTRIAXone 1 GM/50 ML BAG (PRE-DOCKED) IVPB SCH (10:00)
[2016-08-28] MEDS ORDERED: PT OWN MED DRAWER 7, Y5N ONE ×2 (10:06→21:33)
[2016-08-28] MEDS: CHOLECALCIFEROL (VITAMIN D3) 1,000 UNIT TABLET (FP) GT SCH (10:10)
[2016-08-28] MEDS: AZITHROMYCIN IVPB 500 MG/250 ML D5W PRE-DOCKED IVPB SCH (10:10)
[2016-08-28] MEDS: MULTIVITAMINS LIQUID THERAPEUTIC 118 ML BOT PO SCH (10:14)
--- NOTE | 2016-08-28 15:37 | CONSULT ---
Consult Consult Specialty:: infectious diseases Reason for Consultation:: pneumonia fever - History of Present Illness Chief Complaint: cough with secretions History of Present Illness: 25 yo F from [facility], PMHx of cerebral palsy, severe MR, seizure disorder with multiple seizures per day, PEG, spastic quadriparesis, GERD, scoliosis, visual impairment presents to the emergency department for SOB 2/2 possible upper respiratory infection. Patient noted today to be respiratory distress with O2 sat of 86% and tachypnea. Improved with supplemental oxygen. Patient is nonverbal and unable to provide more history. She was recently hospitalized for UTI in 2015. 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 (cerbral palsy) Pulmonary: Yes: Asthma ...: No - Alcohol/Substance Use Hx Alcohol Use: No - Smoking History Smoking history: Never smoked Have you smoked in the past 12 months: No Aproximately how many cigarettes per day: 0 - Social History Usual Living Arrangement: Jail History of Recent Travel: No Home Medications - Allergies Allergies/Adverse Reactions: Allergies Allergy/AdvReac Type Severity Reaction Status Date / Time No Known Allergies Allergy Verified 08/27/16 18:35 - Home Medications Home Medications: Ambulatory Orders Albuterol 2.5/Ipratropium 0.5 [Duoneb -] 1 neb NEB Q4H PRN 02/26/16 Baclofen 5 mg GT TID 02/26/16 Cholecalciferol (Vitamin D3) [Vitamin D3] 2,000 unit GT DAILY 02/26/16 Diazepam Rectal Gel [Diastat Rectal Gel -] 10 mg RC PRN 02/26/16 Lactulose 10 gm GT TID 02/26/16 Nutritional Supplement [Promote] 237 ml GT DAILY 02/26/16 Oxcarbazepine [Trileptal Susp 300 mg/5 mL -] 180 mg GT DAILY 02/26/16 Oxcarbazepine [Trileptal Susp 300 mg/5 mL -] 210 mg GT HS 02/26/16 Topiramate 225 mg GT BID 02/26/16 Levetiracetam [Keppra Oral Solution -] 1,500 mg GT BID 08/27/16 Multivit-Min/FA/Lycopen/Lutein [Vitrum 50+ Senior Tablet] 1 each GT DAILY Sennosides/Docusate Sodium [Senna-S Tablet] 2 each GT HS 08/27/16 Review of Systems Unable to obtain ROS, reason: unable to obtain Physical Exam Vital Signs: Vital Signs Temperature 97.4 F L 08/28/16 14:19 Pulse Rate 86 08/28/16 14:19 Respiratory Rate 20 08/28/16 10:00 Blood Pressure 98/56 08/28/16 14:19 O2 Sat by Pulse Oximetry (%) 95 08/27/16 23:57 Constitutional: Yes: Moderate Distress, Other Eyes: Yes: Conjunctiva Clear Neck: Yes: Supple Cardiovascular: Yes: Regular Rate and Rhythm, Tachycardia Respiratory: Yes: Regular, On Nasal O2, Rhonchi, Other (crackles secretions) Gastrointestinal: Yes: Normal Bowel Sounds, Soft Musculoskeletal: Yes: WNL Extremities: Yes: WNL Neurological: Yes: Alert, Other Psychiatric: Yes: Other Labs: CBC, BMP 08/28/16 07:50 08/28/16 07:50 Imaging - Results Chest X-ray: Report Reviewed, Image Reviewed Assessment/Plan Problem List - Problem (1) Pneumonia (2) Acute respiratory failure with hypoxia (3) Seizure disorder (4) Cerebral palsy (5) Functional quadriplegia (6) Mental retardation leukocytosis sepsis due to pnumonia hypothermia plan i have started patient on vanco and zosyn close monitoring of temprature
[2016-08-28] MEDS: VANCOMYCIN 1 GRAM (PRE-DOCKED) 250 ML IVPB SCH (15:51)
[2016-08-28] MEDS: PIPERACILLIN/TAZOB 3.375 GM 50 ML IVPB SCH (17:49)
[2016-08-29] MEDS: PIPERACILLIN/TAZOB 3.375 GM 50 ML IVPB SCH ×3 (01:19→18:23)
[2016-08-29] MEDS: BACLOFEN 10 MG TABLET (FP) GT SCH ×3 (07:00→22:56)
[2016-08-29] MEDS: LACTULOSE 20 GM/30 ML UDC (FOR ORAL USE ONLY) GT SCH ×3 (07:01→22:47)
[2016-08-29] MEDS ORDERED: PT OWN MED DRAWER 7, Y5N ONE ×2 (09:19→22:12)
[2016-08-29] MEDS: CHOLECALCIFEROL (VITAMIN D3) 1,000 UNIT TABLET (FP) GT SCH (09:29)
[2016-08-29] MEDS: VANCOMYCIN 1 GRAM (PRE-DOCKED) 250 ML IVPB SCH (09:30)
[2016-08-29] MEDS: HEPARIN NA (PORCINE) 5,000 UNITS/ML 1ML VIAL SQ SCH ×2 (09:33→22:47)
[2016-08-29] MEDS: methylPREDNISolone NA SUCC 40 MG/1 ML VIAL IVPB SCH ×2 (09:36→22:47)
[2016-08-29] MEDS: levETIRAcetam 500 MG/5 ML ORAL SOLUTION (UNIT-DOSE CUPS) GT SCH ×2 (09:37→22:48)
[2016-08-29] MEDS: MULTIVITAMINS LIQUID THERAPEUTIC 118 ML BOT PO SCH (09:38)
[2016-08-29] MEDS: OXcarbazepine 300 MG/5 ML 250 ML BULK BOTTLE GT SCH ×2 (09:41→22:56)
[2016-08-29] MEDS: TOPIRAMATE GT SCH ×2 (09:42→22:48)
[2016-08-29] MEDS: AZITHROMYCIN IVPB 500 MG/250 ML D5W PRE-DOCKED IVPB SCH (10:59)
--- NOTE | 2016-08-29 14:42 | PN ---
Progress Note (short form) - Note Progress Note: Patient is lying in bed with no acute distress, smiles when you talk to her. Vital Signs Temperature 98.3 F 08/29/16 14:05 Pulse Rate 81 08/29/16 14:05 Respiratory Rate 20 08/29/16 10:00 Blood Pressure 116/60 08/29/16 14:05 O2 Sat by Pulse Oximetry (%) 96 08/29/16 09:00 GENERAL: The patient is awake, in no acute distress. HEAD: Normal with no signs of trauma. EYES: PERRL, extraocular movements intact, sclera anicteric, conjunctiva clear. ENT: Ears normal, moist mucous membranes. less secretions today NECK: Trachea midline, full range of motion, supple. LUNGS: positive for rhonchi BL , no crackles, no accessory muscle use. HEART: Regular rate and rhythm, S1, S2 without murmur, rub or gallop. ABDOMEN: Soft, nontender, nondistended, normoactive bowel sounds, no guarding, no rebound, no hepatosplenomegaly, no masses. EXTREMITIES: 2+ pulses, warm, well-perfused, no edema. NEUROLOGICAL: Cranial nerves II through XII grossly intact. patient is nonverbal PSYCH: jacobo's palsy SKIN: Warm, dry, normal turgor, no rashes or lesions noted CBCD WBC 13.2 K/mm3 (4.0-10.0) H 08/28/16 07:50 RBC 3.33 M/mm3 (3.60-5.2) L 08/28/16 07:50 Hgb 10.9 GM/dL (10.7-15.3) D 08/28/16 07:50 Hct 32.8 % (32.4-45.2) 08/28/16 07:50 MCV 98.6 fl (80-96) H 08/28/16 07:50 MCHC 33.3 g/dl (32.0-36.0) 08/28/16 07:50 RDW 15.3 % (11.6-15.6) 08/28/16 07:50 Plt Count 118 K/MM3 (134-434) L D 08/28/16 07:50 MPV 9.1 fl (7.5-11.1) 08/28/16 07:50 CMP Sodium 135 mmol/L (136-145) L 08/28/16 07:50 Potassium 5.1 mmol/L (3.5-5.1) D 08/28/16 07:50 Chloride 102 mmol/L (98-107) 08/28/16 07:50 Carbon Dioxide 25 mmol/L (21-32) 08/28/16 07:50 Anion Gap 8 (8-16) 08/28/16 07:50 BUN 16 mg/dL (7-18) 08/28/16 07:50 Creatinine 0.4 mg/dL (0.55-1.02) L 08/28/16 07:50 Creat Clearance w eGFR > 60 (>60) 08/28/16 07:50 Random Glucose 73 mg/dL (74-106) L D 08/28/16 07:50 Calcium 8.7 mg/dL (8.5-10.1) 08/28/16 07:50 Total Bilirubin 0.2 mg/dL (0.2-1.0) 08/28/16 07:50 AST 47 U/L (15-37) H 08/28/16 07:50 ALT 108 U/L (12-78) H 08/28/16 07:50 Alkaline Phosphatase 247 U/L (45-117) H 08/28/16 07:50 Total Protein 6.4 g/dl (6.4-8.2) 08/28/16 07:50 Albumin 2.7 g/dl (3.4-5.0) L 08/28/16 07:50 CARDIAC ENZYMES Creatine Kinase 271 IU/L (26-192) H D 08/27/16 19:15 Troponin I < 0.02 ng/ml (0.00-0.05) 08/27/16 19:15 Current Medications Generic Name Dose Route Start Last Admin Trade Name Freq PRN Reason Stop Dose Admin Albuterol Sulfate 1 amp 08/27/16 20:57 08/29/16 11:47 Ventolin 0.083% Nebulizer Soln - NEB 1 amp Q4H PRN Administration SHORT OF BREATH/WHEEZING Albuterol/Ipratropium 1 amp 08/27/16 21:01 Duoneb - NEB Q4H PRN WHEEZING Azithromycin 500 mg 08/28/16 10:00 08/29/16 10:59 Zithromax 500mg Ivpb (Pre-Docked) IVPB 500 mg DAILY [facility] Administration Baclofen 5 mg 08/27/16 22:00 08/29/16 13:21 Lioresal - GT 5 mg TID [facility] Administration Cholecalciferol 2,000 unit 08/28/16 10:00 08/29/16 09:29 Vitamin D3 - GT 2,000 unit DAILY [facility] Administration Diazepam 10 mg 08/27/16 21:15 Diastat Rectal Gel - RC PRN PRN SEIZURE Heparin Sodium (Porcine) 5,000 unit 08/27/16 22:00 08/29/16 09:33 Heparin - SQ 5,000 unit BID [facility] Administration Vancomycin HCl 250 mls @ 250 mls/hr 08/28/16 15:45 08/29/16 09:30 Vancomycin (Pre-Docked) IVPB 250 mls/hr DAILY [facility] Administration Protocol Piperacillin Sod/Tazobactam Sod 50 mls @ 100 mls/hr 08/28/16 18:00 08/29/16 13: 03 Zosyn 3.375gm Ivpb (Pre-Docked) IVPB 100 mls/hr Q8H-IV [facility] Administration Protocol Lactulose 10 gm 08/27/16 22:00 08/29/16 13:21 Cephulac (Oral Use) GT 10 gm TID [facility] Administration Levetiracetam 1,500 mg 08/27/16 22:00 08/29/16 09:37 Keppra Oral Solution - GT 1,500 mg BID [facility] Administration Methylprednisolone Sodium Succinate 40 mg 08/27/16 22:00 08/29/16 09:36 Solu-Medrol - IVPB 40 mg BID [facility] Administration Multivitamins 5 ml 08/28/16 10:00 08/29/16 09:38 Thera-Plus - PO 5 ml DAILY [facility] Administration Oxcarbazepine 210 mg 08/27/16 22:00 08/28/16 22:02 Trileptal GT 210 mg HS [facility] Administration Oxcarbazepine 180 mg 08/28/16 10:00 08/29/16 09:41 Trileptal GT 180 mg DAILY [facility] Administration Senna/Docusate Sodium 2 tablet 08/27/16 22:00 08/28/16 21:47 Pericolace - PO 2 tablet HS [facility] Administration Topiramate 200 mg/ Topiramate 225 mg 08/27/16 22:00 08/29/16 09:42 25 mg GT 225 mg BID [facility] Administration Home Medications Medication Instructions Recorded Albuterol 2.5/Ipratropium 0.5 1 neb NEB Q4H PRN 02/26/16 [Duoneb -] Baclofen 5 mg GT TID 02/26/16 Cholecalciferol (Vitamin D3) 2,000 unit GT DAILY 02/26/16 [Vitamin D3] Diazepam Rectal Gel [Diastat 10 mg RC PRN 02/26/16 Rectal Gel -] Lactulose 10 gm GT TID 02/26/16 Nutritional Supplement [Promote] 237 ml GT DAILY 02/26/16 Oxcarbazepine [Trileptal Susp 300 180 mg GT DAILY 02/26/16 mg/5 mL -] Oxcarbazepine [Trileptal Susp 300 210 mg GT HS 02/26/16 mg/5 mL -] Topiramate 225 mg GT BID 02/26/16 Levetiracetam [Keppra Oral 1,500 mg GT BID 08/27/16 Solution -] Multivit-Min/FA/Lycopen/Lutein 1 each GT DAILY 08/27/16 [Vitrum 50+ Senior Tablet] Sennosides/Docusate Sodium 2 each GT HS 08/27/16 [Senna-S Tablet] CXR: Impression: diffuse bilateral infiltrate. ASSESSMENT AND PLAN : Patient is a 25 year old female who presented with multiple admissions for respiratory distress secondary to HCAP recently, sent from [facility] for respiratory distress with episode of desaturation to 86% and was found to be tachypneac # HCAP Pneumonia on Azithromycin and Rocephin given Vanco, and Zosyn; Duonebs QID PRN; O2; ID consult -Follow sputum and blood cultures ;Frequent suctioning needed, chest PT, diatary consult for feeding. # Acute respiratory failure with hypoxia due to Pneumonia on IV antibiotic continue # Seizure disorder continue meds # Hx of Cerebral palsy from [facility] # hx of quadriplegia # Nutrition as per dietary consult: Promote 1/2 can (120ml) slow bolus @ 10am, Promote 1 can (237ml) slow bolus @ 2pm, Promote 1 can (237ml) slow bolus @ 5pm, Promote 1/2 can (120ml) slow bolus @ 830pm. Pt gets 100ml slow water bolus after each feed. DVT PPX : Heparin 500 units BID Visit type - Emergency Visit Emergency Visit: Yes ED Registration Date: 08/27/16 Care time: The patient presented to the Emergency Department on the above date and was hospitalized for further evaluation of their emergent condition. - New Patient This patient is new to me today: No - Critical Care Critical Care patient: No
--- NOTE | 2016-08-29 16:20 | PN ---
Progress Note, Physician History of Present Illness: patient looks much better much calmer smiling breathing much better - Current Medication List Current Medications: Active Medications Albuterol Sulfate (Ventolin 0.083% Nebulizer Soln -) 1 amp NEB Q4H PRN PRN Reason: SHORT OF BREATH/WHEEZING Last Admin: 08/29/16 11:47 Dose: 1 amp Albuterol/Ipratropium (Duoneb -) 1 amp NEB Q4H PRN PRN Reason: WHEEZING Azithromycin (Zithromax 500mg Ivpb (Pre-Docked)) 500 mg IVPB DAILY [facility] Last Admin: 08/29/16 10:59 Dose: 500 mg Baclofen (Lioresal -) 5 mg GT TID [facility] Last Admin: 08/29/16 13:21 Dose: 5 mg Cholecalciferol (Vitamin D3 -) 2,000 unit GT DAILY [facility] Last Admin: 08/29/16 09:29 Dose: 2,000 unit Diazepam (Diastat Rectal Gel -) 10 mg RC PRN PRN PRN Reason: SEIZURE Heparin Sodium (Porcine) (Heparin -) 5,000 unit SQ BID [facility] Last Admin: 08/29/16 09:33 Dose: 5,000 unit Vancomycin HCl (Vancomycin (Pre-Docked)) 250 mls @ 250 mls/hr IVPB DAILY [facility] PRN Reason: Protocol Last Admin: 08/29/16 09:30 Dose: 250 mls/hr Piperacillin Sod/Tazobactam Sod (Zosyn 3.375gm Ivpb (Pre-Docked)) 50 mls @ 100 mls/hr IVPB Q8H-IV [facility] PRN Reason: Protocol Last Admin: 08/29/16 13:03 Dose: 100 mls/hr Lactulose (Cephulac (Oral Use)) 10 gm GT TID [facility] Last Admin: 08/29/16 13:21 Dose: 10 gm Levetiracetam (Keppra Oral Solution -) 1,500 mg GT BID [facility] Last Admin: 08/29/16 09:37 Dose: 1,500 mg Methylprednisolone Sodium Succinate (Solu-Medrol -) 40 mg IVPB BID [facility] Last Admin: 08/29/16 09:36 Dose: 40 mg Multivitamins (Thera-Plus -) 5 ml PO DAILY [facility] Last Admin: 08/29/16 09:38 Dose: 5 ml Oxcarbazepine (Trileptal) 210 mg GT HS [facility] Last Admin: 08/28/16 22:02 Dose: 210 mg Oxcarbazepine (Trileptal) 180 mg GT DAILY [facility] Last Admin: 08/29/16 09:41 Dose: 180 mg Senna/Docusate Sodium (Pericolace -) 2 tablet PO HS [facility] Last Admin: 08/28/16 21:47 Dose: 2 tablet Topiramate 200 mg/ Topiramate (25 mg) 225 mg GT BID [facility] Last Admin: 08/29/16 09:42 Dose: 225 mg - Objective Vital Signs: Vital Signs Temperature 98.3 F 08/29/16 14:05 Pulse Rate 81 08/29/16 14:05 Respiratory Rate 20 08/29/16 10:00 Blood Pressure 116/60 08/29/16 14:05 O2 Sat by Pulse Oximetry (%) 96 08/29/16 09:00 Constitutional: Yes: No Distress, Calm Cardiovascular: Yes: Regular Rate and Rhythm Respiratory: Yes: Regular, Rhonchi, Other Gastrointestinal: Yes: Normal Bowel Sounds, Soft, Other Musculoskeletal: Yes: WNL Extremities: Yes: WNL Neurological: Yes: Alert, Other Labs: CBC, BMP 08/28/16 07:50 08/28/16 07:50 INR, PTT INR 1.04 (0.82-1.09) 08/27/16 19:15 Assessment/Plan Problem List - Problem (1) Pneumonia (2) Acute respiratory failure with hypoxia (3) Seizure disorder (4) Cerebral palsy (5) Functional quadriplegia (6) Mental retardation leukocytosis sepsis due to pnumonia hypothermia plan stable continue abx cx result noted if patient remains stable will deescalte vanco tomorrow
--- NOTE | 2016-08-29 21:56 | EKG ---
Test Reason : Blood Pressure : / mmHG Vent. Rate : 089 BPM Atrial Rate : 089 BPM P-R Int : 186 ms QRS Dur : 086 ms QT Int : 374 ms P-R-T Axes : 026 060 016 degrees QTc Int : 455 ms NORMAL SINUS RHYTHM NONSPECIFIC T WAVE ABNORMALITY ABNORMAL ECG WHEN COMPARED WITH ECG OF 26-FEB-2016 11:47, NO SIGNIFICANT CHANGE WAS FOUND Confirmed by RODRIGO GREENWOOD MD ([id number]) on 08/29/2016 9:56:13 PM Referred By: Confirmed By:RODRIGO GREENWOOD MD
[2016-08-29] MEDS: SENNOSIDES/DOCUSATE COMBO (SENNA PLUS) TABLET (UD) PO SCH (22:48)
[2016-08-30] MEDS: PIPERACILLIN/TAZOB 3.375 GM 50 ML IVPB SCH ×3 (01:16→17:11)
[2016-08-30] MEDS: LACTULOSE 20 GM/30 ML UDC (FOR ORAL USE ONLY) GT SCH ×3 (06:05→21:45)
[2016-08-30] MEDS: BACLOFEN 10 MG TABLET (FP) GT SCH ×3 (06:05→21:44)
[2016-08-30 07:24] LABS: BASOPHIL 0.1 % (0-2.0); MCH 33.4 pg (25.7-33.7); MCHC 34.3 g/dl (32.0-36.0); MEAN CELL VOLUME 97.2 fl (80-96); MEAN PLT VOLUME 8.9 fl (7.5-11.1); NEUTROPHILS 71.6 % (42.8-82.8); PLATELET COUNT 147 K/MM3 (134-434); RDW 15.1 % (11.6-15.6); WHITE BLOOD COUNT 7.1 K/mm3 (4.0-10.0)
[2016-08-30 08:07] LABS: ALBUMIN 2.9 g/dl (3.4-5.0); GLUCOSE,RANDOM 107 mg/dL (74-106)
[2016-08-30 08:13] LABS: ALK PHOS 358 U/L (45-117); ANION GAP 11 (8-16); BILIRUBIN,TOTAL 0.2 mg/dL (0.2-1.0); CO2 24 mmol/L (21-32); CREATININE 0.5 mg/dL (0.55-1.02); SGOT/AST 171 U/L (15-37); SGPT/ALT 287 U/L (12-78); TOT PROT 6.7 g/dl (6.4-8.2)
[2016-08-30] MEDS ORDERED: PT OWN MED DRAWER 7, Y5N ONE ×2 (09:35→21:41)
[2016-08-30] MEDS: HEPARIN NA (PORCINE) 5,000 UNITS/ML 1ML VIAL SQ SCH ×2 (09:37→21:44)
[2016-08-30] MEDS: levETIRAcetam 500 MG/5 ML ORAL SOLUTION (UNIT-DOSE CUPS) GT SCH ×2 (09:38→21:44)
[2016-08-30] MEDS: methylPREDNISolone NA SUCC 40 MG/1 ML VIAL IVPB SCH ×2 (09:38→21:44)
[2016-08-30] MEDS: MULTIVITAMINS LIQUID THERAPEUTIC 118 ML BOT PO SCH (09:40)
[2016-08-30] MEDS: TOPIRAMATE GT SCH ×2 (09:41→21:44)
[2016-08-30] MEDS: OXcarbazepine 300 MG/5 ML 250 ML BULK BOTTLE GT SCH ×2 (09:43→23:25)
[2016-08-30] MEDS: VANCOMYCIN 1 GRAM (PRE-DOCKED) 250 ML IVPB SCH (09:43)
[2016-08-30] MEDS: CHOLECALCIFEROL (VITAMIN D3) 1,000 UNIT TABLET (FP) GT SCH (09:43)
[2016-08-30] MEDS: AZITHROMYCIN IVPB 500 MG/250 ML D5W PRE-DOCKED IVPB SCH (09:43)
--- NOTE | 2016-08-30 10:04 | PN ---
Teaching Attending Note Name of Resident: Brianna Barone ATTENDING PHYSICIAN STATEMENT I saw and evaluated the patient. I reviewed the resident's note and discussed the case with the resident. I agree with the resident's findings and plan as documented. Patient is lying in bed with no acute distress. No shortness of breaths, no nausea or vomiting. Decreased secretions. Vital Signs Temperature 97.9 F 08/30/16 06:00 Pulse Rate 60 08/30/16 06:00 Respiratory Rate 22 08/30/16 06:00 Blood Pressure 107/75 08/30/16 06:00 O2 Sat by Pulse Oximetry (%) 94 L 08/30/16 08:55 CBCD WBC 7.1 K/mm3 (4.0-10.0) D 08/30/16 06:05 RBC 3.27 M/mm3 (3.60-5.2) L 08/30/16 06:05 Hgb 10.9 GM/dL (10.7-15.3) 08/30/16 06:05 Hct 31.8 % (32.4-45.2) L 08/30/16 06:05 MCV 97.2 fl (80-96) H 08/30/16 06:05 MCHC 34.3 g/dl (32.0-36.0) 08/30/16 06:05 RDW 15.1 % (11.6-15.6) 08/30/16 06:05 Plt Count 147 K/MM3 (134-434) D 08/30/16 06:05 MPV 8.9 fl (7.5-11.1) 08/30/16 06:05 CMP Sodium 143 mmol/L (136-145) 08/30/16 06:05 Potassium 4.0 mmol/L (3.5-5.1) D 08/30/16 06:05 Chloride 108 mmol/L (98-107) H 08/30/16 06:05 Carbon Dioxide 24 mmol/L (21-32) 08/30/16 06:05 Anion Gap 11 (8-16) 08/30/16 06:05 BUN 15 mg/dL (7-18) 08/30/16 06:05 Creatinine 0.5 mg/dL (0.55-1.02) L D 08/30/16 06:05 Creat Clearance w eGFR > 60 (>60) 08/30/16 06:05 Random Glucose 107 mg/dL (74-106) H D 08/30/16 06:05 Calcium 9.0 mg/dL (8.5-10.1) 08/30/16 06:05 Total Bilirubin 0.2 mg/dL (0.2-1.0) 08/30/16 06:05 AST 171 U/L (15-37) H D 08/30/16 06:05 ALT 287 U/L (12-78) H D 08/30/16 06:05 Alkaline Phosphatase 358 U/L (45-117) H D 08/30/16 06:05 Total Protein 6.7 g/dl (6.4-8.2) 08/30/16 06:05 Albumin 2.9 g/dl (3.4-5.0) L 08/30/16 06:05 CARDIAC ENZYMES Creatine Kinase 271 IU/L (26-192) H D 08/27/16 19:15 Troponin I < 0.02 ng/ml (0.00-0.05) 08/27/16 19:15 Current Medications Generic Name Dose Route Start Last Admin Trade Name Freq PRN Reason Stop Dose Admin Albuterol Sulfate 1 amp 08/27/16 20:57 08/29/16 11:47 Ventolin 0.083% Nebulizer Soln - NEB 1 amp Q4H PRN Administration SHORT OF BREATH/WHEEZING Albuterol/Ipratropium 1 amp 08/27/16 21:01 Duoneb - NEB Q4H PRN WHEEZING Azithromycin 500 mg 08/28/16 10:00 08/30/16 09:43 Zithromax 500mg Ivpb (Pre-Docked) IVPB 500 mg DAILY [facility] Administration Baclofen 5 mg 08/27/16 22:00 08/30/16 06:05 Lioresal - GT 5 mg TID [facility] Administration Cholecalciferol 2,000 unit 08/28/16 10:00 08/30/16 09:43 Vitamin D3 - GT 2,000 unit DAILY [facility] Administration Diazepam 10 mg 08/27/16 21:15 Diastat Rectal Gel - RC PRN PRN SEIZURE Heparin Sodium (Porcine) 5,000 unit 08/27/16 22:00 08/30/16 09:37 Heparin - SQ 5,000 unit BID [facility] Administration Vancomycin HCl 250 mls @ 250 mls/hr 08/28/16 15:45 08/30/16 09:43 Vancomycin (Pre-Docked) IVPB 250 mls/hr DAILY [facility] Administration Protocol Piperacillin Sod/Tazobactam Sod 50 mls @ 100 mls/hr 08/28/16 18:00 08/30/16 09: 44 Zosyn 3.375gm Ivpb (Pre-Docked) IVPB 100 mls/hr Q8H-IV [facility] Administration Protocol Lactulose 10 gm 08/27/16 22:00 08/30/16 06:05 Cephulac (Oral Use) GT 10 gm TID [facility] Administration Levetiracetam 1,500 mg 08/27/16 22:00 08/30/16 09:38 Keppra Oral Solution - GT 1,500 mg BID [facility] Administration Methylprednisolone Sodium Succinate 40 mg 08/27/16 22:00 08/30/16 09:38 Solu-Medrol - IVPB 40 mg BID [facility] Administration Multivitamins 5 ml 08/28/16 10:00 08/30/16 09:40 Thera-Plus - PO 5 ml DAILY [facility] Administration Oxcarbazepine 210 mg 08/27/16 22:00 08/29/16 22:56 Trileptal GT 210 mg HS [facility] Administration Oxcarbazepine 180 mg 08/28/16 10:00 08/30/16 09:43 Trileptal GT 180 mg DAILY [facility] Administration Senna/Docusate Sodium 2 tablet 08/27/16 22:00 08/29/16 22:48 Pericolace - PO 2 tablet HS [facility] Administration Topiramate 200 mg/ Topiramate 225 mg 08/27/16 22:00 08/30/16 09:41 25 mg GT 225 mg BID [facility] Administration Home Medications Medication Instructions Recorded Albuterol 2.5/Ipratropium 0.5 1 neb NEB Q4H PRN 02/26/16 [Duoneb -] Baclofen 5 mg GT TID 02/26/16 Cholecalciferol (Vitamin D3) 2,000 unit GT DAILY 02/26/16 [Vitamin D3] Diazepam Rectal Gel [Diastat 10 mg RC PRN 02/26/16 Rectal Gel -] Lactulose 10 gm GT TID 02/26/16 Nutritional Supplement [Promote] 237 ml GT DAILY 02/26/16 Oxcarbazepine [Trileptal Susp 300 180 mg GT DAILY 02/26/16 mg/5 mL -] Oxcarbazepine [Trileptal Susp 300 210 mg GT HS 02/26/16 mg/5 mL -] Topiramate 225 mg GT BID 02/26/16 Levetiracetam [Keppra Oral 1,500 mg GT BID 08/27/16 Solution -] Multivit-Min/FA/Lycopen/Lutein 1 each GT DAILY 08/27/16 [Vitrum 50+ Senior Tablet] Sennosides/Docusate Sodium 2 each GT HS 08/27/16 [Senna-S Tablet] CXR: Impression: diffuse bilateral infiltrate. ASSESSMENT AND PLAN : Patient is a 25 year old female who presented with multiple admissions for respiratory distress secondary to HCAP recently, sent from [facility] for respiratory distress with episode of desaturation to 86% and was found to be tachypneac # Acute HCAP on IV Vanco, and Zosyn as per ID continue; Duonebs QID PRN; O2; continue Frequent suctioning as needed, chest PT, diatary consult for feeding. Patient is doing better. # Acute respiratory failure with hypoxia due to Pneumonia on IV antibiotic continue # Seizure disorder continue meds # Hx of Cerebral palsy from [facility] # hx of quadriplegia # Nutrition as per dietary consult: Promote 1/2 can (120ml) slow bolus @ 10am, Promote 1 can (237ml) slow bolus @ 2pm, Promote 1 can (237ml) slow bolus @ 5pm, Promote 1/2 can (120ml) slow bolus @ 830pm. Pt gets 100ml slow water bolus after each feed. DVT PPX : Heparin 500 units BID possible dc in am
--- NOTE | 2016-08-30 13:38 | PN ---
Progress Note, Physician History of Present Illness: patient looks better more awake and alert - Current Medication List Current Medications: Active Medications Albuterol Sulfate (Ventolin 0.083% Nebulizer Soln -) 1 amp NEB Q4H PRN PRN Reason: SHORT OF BREATH/WHEEZING Last Admin: 08/29/16 11:47 Dose: 1 amp Albuterol/Ipratropium (Duoneb -) 1 amp NEB Q4H PRN PRN Reason: WHEEZING Azithromycin (Zithromax 500mg Ivpb (Pre-Docked)) 500 mg IVPB DAILY [facility] Last Admin: 08/30/16 09:43 Dose: 500 mg Baclofen (Lioresal -) 5 mg GT TID [facility] Last Admin: 08/30/16 06:05 Dose: 5 mg Cholecalciferol (Vitamin D3 -) 2,000 unit GT DAILY [facility] Last Admin: 08/30/16 09:43 Dose: 2,000 unit Diazepam (Diastat Rectal Gel -) 10 mg RC PRN PRN PRN Reason: SEIZURE Heparin Sodium (Porcine) (Heparin -) 5,000 unit SQ BID [facility] Last Admin: 08/30/16 09:37 Dose: 5,000 unit Vancomycin HCl (Vancomycin (Pre-Docked)) 250 mls @ 250 mls/hr IVPB DAILY [facility] PRN Reason: Protocol Last Admin: 08/30/16 09:43 Dose: 250 mls/hr Piperacillin Sod/Tazobactam Sod (Zosyn 3.375gm Ivpb (Pre-Docked)) 50 mls @ 100 mls/hr IVPB Q8H-IV [facility] PRN Reason: Protocol Last Admin: 08/30/16 09:44 Dose: 100 mls/hr Lactulose (Cephulac (Oral Use)) 10 gm GT TID [facility] Last Admin: 08/30/16 06:05 Dose: 10 gm Levetiracetam (Keppra Oral Solution -) 1,500 mg GT BID [facility] Last Admin: 08/30/16 09:38 Dose: 1,500 mg Methylprednisolone Sodium Succinate (Solu-Medrol -) 40 mg IVPB BID [facility] Last Admin: 08/30/16 09:38 Dose: 40 mg Multivitamins (Thera-Plus -) 5 ml PO DAILY [facility] Last Admin: 08/30/16 09:40 Dose: 5 ml Oxcarbazepine (Trileptal) 210 mg GT HS [facility] Last Admin: 08/29/16 22:56 Dose: 210 mg Oxcarbazepine (Trileptal) 180 mg GT DAILY [facility] Last Admin: 08/30/16 09:43 Dose: 180 mg Senna/Docusate Sodium (Pericolace -) 2 tablet PO HS [facility] Last Admin: 08/29/16 22:48 Dose: 2 tablet Topiramate 200 mg/ Topiramate (25 mg) 225 mg GT BID [facility] Last Admin: 08/30/16 09:41 Dose: 225 mg - Objective Vital Signs: Vital Signs Temperature 97.5 F L 08/30/16 10:00 Pulse Rate 57 L 08/30/16 11:45 Respiratory Rate 18 08/30/16 10:00 Blood Pressure 105/58 08/30/16 10:00 O2 Sat by Pulse Oximetry (%) 98 08/30/16 11:45 Constitutional: Yes: No Distress, Calm Cardiovascular: Yes: Regular Rate and Rhythm Respiratory: Yes: Regular, CTA Bilaterally Gastrointestinal: Yes: Normal Bowel Sounds, Soft, Other (peg in place) Musculoskeletal: Yes: WNL Extremities: Yes: WNL Neurological: Yes: Alert, Other Labs: CBC, BMP 08/30/16 06:05 08/30/16 06:05 INR, PTT INR 1.04 (0.82-1.09) 08/27/16 19:15 Assessment/Plan Problem List - Problem (1) Pneumonia (2) Acute respiratory failure with hypoxia (3) Seizure disorder (4) Cerebral palsy (5) Functional quadriplegia (6) Mental retardation leukocytosis sepsis due to pnumonia hypothermia plan stable continue abx cx result noted if patient remains stable stop vanco tomorrow patient looks much better remaining afebrile
--- NOTE | 2016-08-30 17:30 | PN ---
Physical Exam: SUBJECTIVE: Patient seen and examined. Nonverbal, smiling. OBJECTIVE: Vital Signs Period Temp Pulse Resp BP Sys/Herman Pulse Ox Last 24 Hr 97.0 F-99.0 F 56-72 18-22 105-124/58-75 94-98 GENERAL: The patient is awake, in no acute distress, Down's syndrome, not following commends. HEAD: Normal with no signs of trauma. EYES: PERRL, small eyes,conjunctiva clear ENT: oropharynx clear without exudates, moist mucous membranes. NECK: Trachea midline, full range of motion, supple. LUNGS: Breath sounds equal, crackles B/L, and rhonchi on r side, no wheezes, no accessory muscle use. HEART: Regular rate and rhythm, S1, S2 without murmur, rub or gallop. ABDOMEN: Soft, nontender, nondistended, normoactive bowel sounds, no guarding, no rebound, peg tube. EXTREMITIES:no edema. NEUROLOGICAL: No facial asymmetry, gait not observed. PSYCH: Normal mood, normal affect. SKIN: Warm, dry, normal turgor, petechiae on upoper and lower extremities, mild redness as well. Laboratory Results - last 24 hr 08/30/16 08/30/16 06:05 06:05 WBC 7.1 D RBC 3.27 L Hgb 10.9 Hct 31.8 L MCV 97.2 H MCHC 34.3 RDW 15.1 Plt Count 147 D MPV 8.9 Neutrophils % 71.6 D Lymphocytes % 25.0 D Monocytes % 3.3 L Eosinophils % 0.0 Basophils % 0.1 Sodium 143 Potassium 4.0 D Chloride 108 H Carbon Dioxide 24 Anion Gap 11 BUN 15 Creatinine 0.5 L D Creat Clearance w eGFR > 60 Random Glucose 107 H D Calcium 9.0 Total Bilirubin 0.2 AST 171 H D ALT 287 H D Alkaline Phosphatase 358 H D Total Protein 6.7 Albumin 2.9 L Active Medications Generic Name Dose Route Start Last Admin Trade Name Freq PRN Reason Stop Dose Admin Albuterol Sulfate 1 amp 08/27/16 20:57 08/29/16 11:47 Ventolin 0.083% Nebulizer Soln - NEB 1 amp Q4H PRN Administration SHORT OF BREATH/WHEEZING Albuterol/Ipratropium 1 amp 08/27/16 21:01 Duoneb - NEB Q4H PRN WHEEZING Azithromycin 500 mg 08/28/16 10:00 08/30/16 09:43 Zithromax 500mg Ivpb (Pre-Docked) IVPB 500 mg DAILY [facility] Administration Baclofen 5 mg 08/27/16 22:00 08/30/16 13:48 Lioresal - GT 5 mg TID [facility] Administration Cholecalciferol 2,000 unit 08/28/16 10:00 08/30/16 09:43 Vitamin D3 - GT 2,000 unit DAILY [facility] Administration Diazepam 10 mg 08/27/16 21:15 Diastat Rectal Gel - RC PRN PRN SEIZURE Heparin Sodium (Porcine) 5,000 unit 08/27/16 22:00 08/30/16 09:37 Heparin - SQ 5,000 unit BID [facility] Administration Vancomycin HCl 250 mls @ 250 mls/hr 08/28/16 15:45 08/30/16 09:43 Vancomycin (Pre-Docked) IVPB 250 mls/hr DAILY [facility] Administration Protocol Piperacillin Sod/Tazobactam Sod 50 mls @ 100 mls/hr 08/28/16 18:00 08/30/16 17: 11 Zosyn 3.375gm Ivpb (Pre-Docked) IVPB 100 mls/hr Q8H-IV [facility] Administration Protocol Lactulose 10 gm 08/27/16 22:00 08/30/16 13:49 Cephulac (Oral Use) GT 10 gm TID [facility] Administration Levetiracetam 1,500 mg 08/27/16 22:00 08/30/16 09:38 Keppra Oral Solution - GT 1,500 mg BID [facility] Administration Methylprednisolone Sodium Succinate 40 mg 08/27/16 22:00 08/30/16 09:38 Solu-Medrol - IVPB 40 mg BID [facility] Administration Multivitamins 5 ml 08/28/16 10:00 08/30/16 09:40 Thera-Plus - PO 5 ml DAILY [facility] Administration Oxcarbazepine 210 mg 08/27/16 22:00 08/29/16 22:56 Trileptal GT 210 mg HS [facility] Administration Oxcarbazepine 180 mg 08/28/16 10:00 08/30/16 09:43 Trileptal GT 180 mg DAILY [facility] Administration Senna/Docusate Sodium 2 tablet 08/27/16 22:00 08/29/16 22:48 Pericolace - PO 2 tablet HS [facility] Administration Topiramate 200 mg/ Topiramate 225 mg 08/27/16 22:00 08/30/16 09:41 25 mg GT 225 mg BID [facility] Administration EKG: NSR 89, no std/elizabeth, TWI III, normal axis, normal intervals, QTC 455 msec ASSESSMENT/PLAN: 25 yo F from [facility], PMHx of cerebral palsy, severe MR, seizure disorder with multiple seizures per day, PEG, spastic quadriparesis, GERD, scoliosis, visual impairment admitted for PNA. Pneumonia CXR show possible PNA Vanco, Zosyn , Azithromycin day 3 Consult ID- Dr. Rider Solumedrol 40mg IV BID Duonebs QID PRN Supplemental O2 to maintain SpO2 >90% Aspiration precautions chest PT frequent suctioning Seizure disorder Continue Levetiracetam (Keppra Oral Solution -) 1,500 mg GT BID Topiramate 200 mg/ Topiramate (25 mg) 225 mg GT BID [facility] Transaminitis: -abdoomen US Hx of Cerebral palsy/Functional quadriplegia -comes from [facility] PEG tube in place daily assessment. Physical therapy request. DVT prophylaxis Heparin 5000 units BID Disposition: No plan for discharge yet Problem List - Problems (1) Functional quadriplegia Code(s): R53.2 - FUNCTIONAL QUADRIPLEGIA (2) Pneumonia Code(s): J18.9 - PNEUMONIA, UNSPECIFIED ORGANISM Qualifiers: Pneumonia type: due to unspecified organism Laterality: unspecified laterality Lung location: unspecified part of lung Qualified Code(s): J18.9 - Pneumonia, unspecified organism (3) Acute respiratory failure with hypoxia Code(s): J96.01 - ACUTE RESPIRATORY FAILURE WITH HYPOXIA (4) Cerebral palsy Code(s): G80.9 - CEREBRAL PALSY, UNSPECIFIED Qualifiers: Cerebral palsy type: spastic quadriplegic Qualified Code(s): G80.0 - Spastic quadriplegic cerebral palsy (5) Elevated liver enzymes Code(s): R74.8 - ABNORMAL LEVELS OF OTHER SERUM ENZYMES (6) Contusion Code(s): T14.8 - OTHER INJURY OF UNSPECIFIED BODY REGION (7) DVT prophylaxis Code(s): WGM9840 - Visit type - Emergency Visit Emergency Visit: Yes ED Registration Date: 08/27/16 Care time: The patient presented to the Emergency Department on the above date and was hospitalized for further evaluation of their emergent condition. - New Patient This patient is new to me today: Yes Date on this admission: 08/30/16 - Critical Care Critical Care patient: No - Discharge Referral [facility]erred [facility] No
[2016-08-30] MEDS: SENNOSIDES/DOCUSATE COMBO (SENNA PLUS) TABLET (UD) PO SCH (21:45)
[2016-08-31] MEDS: PIPERACILLIN/TAZOB 3.375 GM 50 ML IVPB SCH ×3 (01:23→17:44)
[2016-08-31] MEDS: LACTULOSE 20 GM/30 ML UDC (FOR ORAL USE ONLY) GT SCH ×3 (06:01→22:00)
[2016-08-31] MEDS: BACLOFEN 10 MG TABLET (FP) GT SCH ×3 (06:01→21:59)
[2016-08-31 07:28] LABS: BASOPHIL 0.1 % (0-2.0); EOSINOPHIL 0.1 % (0-4.5); MCH 33.2 pg (25.7-33.7); MCHC 33.9 g/dl (32.0-36.0); MEAN CELL VOLUME 97.8 fl (80-96); MEAN PLT VOLUME 9.2 fl (7.5-11.1); NEUTROPHILS 45.3 % (42.8-82.8); PLATELET COUNT 152 K/MM3 (134-434); RDW 15.1 % (11.6-15.6); WHITE BLOOD COUNT 4.9 K/mm3 (4.0-10.0)
[2016-08-31 07:50] LABS: ALBUMIN 2.7 g/dl (3.4-5.0); GLUCOSE,RANDOM 109 mg/dL (74-106); SGOT/AST 141 U/L (15-37); SGPT/ALT 333 U/L (12-78)
[2016-08-31 07:53] LABS: ALK PHOS 358 U/L (45-117); ANION GAP 9 (8-16); BILIRUBIN,TOTAL 0.2 mg/dL (0.2-1.0); CO2 26 mmol/L (21-32); CREATININE 0.4 mg/dL (0.55-1.02); TOT PROT 6.3 g/dl (6.4-8.2)
--- NOTE | 2016-08-31 09:57 | PN ---
Teaching Attending Note Name of Resident: Brianna Barone ATTENDING PHYSICIAN STATEMENT I saw and evaluated the patient. I reviewed the resident's note and discussed the case with the resident. I agree with the resident's findings and plan as documented. Patient is comfortable with no acute distress Vital Signs Temperature 97.8 F 08/31/16 05:53 Pulse Rate 65 08/31/16 05:53 Respiratory Rate 22 08/31/16 05:53 Blood Pressure 119/60 08/31/16 05:53 O2 Sat by Pulse Oximetry (%) 98 08/30/16 21:00 CBCD WBC 4.9 K/mm3 (4.0-10.0) D 08/31/16 06:35 RBC 3.21 M/mm3 (3.60-5.2) L 08/31/16 06:35 Hgb 10.6 GM/dL (10.7-15.3) L 08/31/16 06:35 Hct 31.4 % (32.4-45.2) L 08/31/16 06:35 MCV 97.8 fl (80-96) H 08/31/16 06:35 MCHC 33.9 g/dl (32.0-36.0) 08/31/16 06:35 RDW 15.1 % (11.6-15.6) 08/31/16 06:35 Plt Count 152 K/MM3 (134-434) 08/31/16 06:35 MPV 9.2 fl (7.5-11.1) 08/31/16 06:35 CMP Sodium 145 mmol/L (136-145) 08/31/16 06:35 Potassium 3.7 mmol/L (3.5-5.1) 08/31/16 06:35 Chloride 110 mmol/L (98-107) H 08/31/16 06:35 Carbon Dioxide 26 mmol/L (21-32) 08/31/16 06:35 Anion Gap 9 (8-16) 08/31/16 06:35 BUN 14 mg/dL (7-18) 08/31/16 06:35 Creatinine 0.4 mg/dL (0.55-1.02) L 08/31/16 06:35 Creat Clearance w eGFR > 60 (>60) 08/31/16 06:35 Random Glucose 109 mg/dL (74-106) H 08/31/16 06:35 Calcium 9.0 mg/dL (8.5-10.1) 08/31/16 06:35 Total Bilirubin 0.2 mg/dL (0.2-1.0) 08/31/16 06:35 AST 141 U/L (15-37) H 08/31/16 06:35 ALT 333 U/L (12-78) H 08/31/16 06:35 Alkaline Phosphatase 358 U/L (45-117) H 08/31/16 06:35 Total Protein 6.3 g/dl (6.4-8.2) L 08/31/16 06:35 Albumin 2.7 g/dl (3.4-5.0) L 08/31/16 06:35 CARDIAC ENZYMES Creatine Kinase 271 IU/L (26-192) H D 08/27/16 19:15 Troponin I < 0.02 ng/ml (0.00-0.05) 08/27/16 19:15 Current Medications Generic Name Dose Route Start Last Admin Trade Name Freq PRN Reason Stop Dose Admin Albuterol Sulfate 1 amp 08/27/16 20:57 08/29/16 11:47 Ventolin 0.083% Nebulizer Soln - NEB 1 amp Q4H PRN Administration SHORT OF BREATH/WHEEZING Albuterol/Ipratropium 1 amp 08/27/16 21:01 Duoneb - NEB Q4H PRN WHEEZING Azithromycin 500 mg 08/28/16 10:00 08/30/16 09:43 Zithromax 500mg Ivpb (Pre-Docked) IVPB 500 mg DAILY [facility] Administration Baclofen 5 mg 08/27/16 22:00 08/31/16 06:01 Lioresal - GT 5 mg TID [facility] Administration Cholecalciferol 2,000 unit 08/28/16 10:00 08/30/16 09:43 Vitamin D3 - GT 2,000 unit DAILY [facility] Administration Diazepam 10 mg 08/27/16 21:15 Diastat Rectal Gel - RC PRN PRN SEIZURE Heparin Sodium (Porcine) 5,000 unit 08/27/16 22:00 08/30/16 21:44 Heparin - SQ 5,000 unit BID [facility] Administration Vancomycin HCl 250 mls @ 250 mls/hr 08/28/16 15:45 08/30/16 09:43 Vancomycin (Pre-Docked) IVPB 250 mls/hr DAILY [facility] Administration Protocol Piperacillin Sod/Tazobactam Sod 50 mls @ 100 mls/hr 08/28/16 18:00 08/31/16 01: 23 Zosyn 3.375gm Ivpb (Pre-Docked) IVPB 100 mls/hr Q8H-IV [facility] Administration Protocol Lactulose 10 gm 08/27/16 22:00 08/31/16 06:01 Cephulac (Oral Use) GT 10 gm TID [facility] Administration Levetiracetam 1,500 mg 08/27/16 22:00 08/30/16 21:44 Keppra Oral Solution - GT 1,500 mg BID [facility] Administration Methylprednisolone Sodium Succinate 40 mg 08/27/16 22:00 08/30/16 21:44 Solu-Medrol - IVPB 40 mg BID [facility] Administration Multivitamins 5 ml 08/28/16 10:00 08/30/16 09:40 Thera-Plus - PO 5 ml DAILY [facility] Administration Oxcarbazepine 210 mg 08/27/16 22:00 08/30/16 23:25 Trileptal GT 210 mg HS [facility] Administration Oxcarbazepine 180 mg 08/28/16 10:00 08/30/16 09:43 Trileptal GT 180 mg DAILY [facility] Administration Senna/Docusate Sodium 2 tablet 08/27/16 22:00 08/30/16 21:45 Pericolace - PO 2 tablet HS [facility] Administration Topiramate 200 mg/ Topiramate 225 mg 08/27/16 22:00 08/30/16 21:44 25 mg GT 225 mg BID [facility] Administration Home Medications Medication Instructions Recorded Albuterol 2.5/Ipratropium 0.5 1 neb NEB Q4H PRN 02/26/16 [Duoneb -] Baclofen 5 mg GT TID 02/26/16 Cholecalciferol (Vitamin D3) 2,000 unit GT DAILY 02/26/16 [Vitamin D3] Diazepam Rectal Gel [Diastat 10 mg RC PRN 02/26/16 Rectal Gel -] Lactulose 10 gm GT TID 02/26/16 Nutritional Supplement [Promote] 237 ml GT DAILY 02/26/16 Oxcarbazepine [Trileptal Susp 300 180 mg GT DAILY 02/26/16 mg/5 mL -] Oxcarbazepine [Trileptal Susp 300 210 mg GT HS 02/26/16 mg/5 mL -] Topiramate 225 mg GT BID 02/26/16 Levetiracetam [Keppra Oral 1,500 mg GT BID 08/27/16 Solution -] Multivit-Min/FA/Lycopen/Lutein 1 each GT DAILY 08/27/16 [Vitrum 50+ Senior Tablet] Sennosides/Docusate Sodium 2 each GT HS 08/27/16 [Senna-S Tablet] CXR: Impression: diffuse bilateral infiltrate. ASSESSMENT AND PLAN : Patient is a 25 year old female with Hx of Cerebral palsy was sent from [facility] for respiratory distress with episode of desaturation to 86% and was found to be bl infiltrate. # Acute HCAP on IV Vanco, and Zosyn continue and last dose of Zithromax today as per ID continue; Duonebs QID PRN; O2; continue Frequent suctioning as needed, chest PT. # Acute respiratory failure with hypoxia due to Pneumonia on IV antibiotic continue # Elevated transaminitis monitor LFTs possible due to sepsis # Seizure disorder continue meds # Hx of Cerebral palsy from [facility] # hx of quadriplegia # Nutrition as per dietary consult: Promote 1/2 can (120ml) slow bolus @ 10am, Promote 1 can (237ml) slow bolus @ 2pm, Promote 1 can (237ml) slow bolus @ 5pm, Promote 1/2 can (120ml) slow bolus @ 830pm. Pt gets 100ml slow water bolus after each feed. DVT PPX : Heparin 500 units BID
[2016-08-31] MEDS ORDERED: PT OWN MED DRAWER 7, Y5N ONE ×2 (10:35→21:58)
[2016-08-31] MEDS: HEPARIN NA (PORCINE) 5,000 UNITS/ML 1ML VIAL SQ SCH ×2 (10:55→21:59)
[2016-08-31] MEDS: levETIRAcetam 500 MG/5 ML ORAL SOLUTION (UNIT-DOSE CUPS) GT SCH ×2 (10:55→21:59)
[2016-08-31] MEDS: MULTIVITAMINS LIQUID THERAPEUTIC 118 ML BOT PO SCH (10:56)
[2016-08-31] MEDS: methylPREDNISolone NA SUCC 40 MG/1 ML VIAL IVPB SCH ×2 (10:56→21:59)
[2016-08-31] MEDS: OXcarbazepine 300 MG/5 ML 250 ML BULK BOTTLE GT SCH ×2 (10:56→22:01)
[2016-08-31] MEDS: TOPIRAMATE GT SCH ×2 (10:56→22:01)
[2016-08-31] MEDS: CHOLECALCIFEROL (VITAMIN D3) 1,000 UNIT TABLET (FP) GT SCH (10:56)
[2016-08-31] MEDS: VANCOMYCIN 1 GRAM (PRE-DOCKED) 250 ML IVPB SCH (11:22)
--- NOTE | 2016-08-31 13:01 | PN ---
Progress Note, Physician History of Present Illness: patient doing well looks a lot stable calm - Current Medication List Current Medications: Active Medications Albuterol Sulfate (Ventolin 0.083% Nebulizer Soln -) 1 amp NEB Q4H PRN PRN Reason: SHORT OF BREATH/WHEEZING Last Admin: 08/29/16 11:47 Dose: 1 amp Albuterol/Ipratropium (Duoneb -) 1 amp NEB Q4H PRN PRN Reason: WHEEZING Azithromycin (Zithromax 500mg Ivpb (Pre-Docked)) 500 mg IVPB DAILY [facility] Last Admin: 08/30/16 09:43 Dose: 500 mg Baclofen (Lioresal -) 5 mg GT TID [facility] Last Admin: 08/31/16 06:01 Dose: 5 mg Cholecalciferol (Vitamin D3 -) 2,000 unit GT DAILY [facility] Last Admin: 08/31/16 10:56 Dose: 2,000 unit Diazepam (Diastat Rectal Gel -) 10 mg RC PRN PRN PRN Reason: SEIZURE Heparin Sodium (Porcine) (Heparin -) 5,000 unit SQ BID [facility] Last Admin: 08/31/16 10:55 Dose: 5,000 unit Piperacillin Sod/Tazobactam Sod (Zosyn 3.375gm Ivpb (Pre-Docked)) 50 mls @ 100 mls/hr IVPB Q8H-IV [facility] PRN Reason: Protocol Last Admin: 08/31/16 10:57 Dose: 100 mls/hr Lactulose (Cephulac (Oral Use)) 10 gm GT TID [facility] Last Admin: 08/31/16 06:01 Dose: 10 gm Levetiracetam (Keppra Oral Solution -) 1,500 mg GT BID [facility] Last Admin: 08/31/16 10:55 Dose: 1,500 mg Methylprednisolone Sodium Succinate (Solu-Medrol -) 40 mg IVPB BID [facility] Last Admin: 08/31/16 10:56 Dose: 40 mg Multivitamins (Thera-Plus -) 5 ml PO DAILY [facility] Last Admin: 08/31/16 10:56 Dose: 5 ml Oxcarbazepine (Trileptal) 210 mg GT HS [facility] Last Admin: 08/30/16 23:25 Dose: 210 mg Oxcarbazepine (Trileptal) 180 mg GT DAILY [facility] Last Admin: 08/31/16 10:56 Dose: 180 mg Senna/Docusate Sodium (Pericolace -) 2 tablet PO HS [facility] Last Admin: 08/30/16 21:45 Dose: 2 tablet Topiramate 200 mg/ Topiramate (25 mg) 225 mg GT BID [facility] Last Admin: 08/31/16 10:56 Dose: 225 mg - Objective Vital Signs: Vital Signs Temperature 97.8 F 08/31/16 05:53 Pulse Rate 62 08/31/16 11:17 Respiratory Rate 22 08/31/16 05:53 Blood Pressure 119/60 08/31/16 05:53 O2 Sat by Pulse Oximetry (%) 97 08/31/16 11:17 Constitutional: Yes: No Distress, Calm Cardiovascular: Yes: Regular Rate and Rhythm Respiratory: Yes: Regular, Poor Air Entry, Rhonchi Gastrointestinal: Yes: Normal Bowel Sounds, Soft, Other (peg in place) Musculoskeletal: Yes: WNL Extremities: Yes: WNL Neurological: Yes: Alert Psychiatric: Yes: Alert Labs: CBC, BMP 08/31/16 06:35 08/31/16 06:35 INR, PTT INR 1.04 (0.82-1.09) 08/27/16 19:15 - ....Imaging X-ray: Report Reviewed, Image Reviewed Assessment/Plan Problem List - Problem (1) Pneumonia (2) Acute respiratory failure with hypoxia (3) Seizure disorder (4) Cerebral palsy (5) Functional quadriplegia (6) Mental retardation leukocytosis sepsis due to pnumonia hypothermia plan stop zithro vanco stopped will evalaute patient tomorrow if stable will stop zosyn on
[2016-08-31] MEDS: AZITHROMYCIN IVPB 500 MG/250 ML D5W PRE-DOCKED IVPB SCH (13:21)
--- NOTE | 2016-08-31 19:15 | PN ---
Physical Exam: SUBJECTIVE: Patient seen and examined, nonverbal, cerebral palsy. OBJECTIVE: Vital Signs Period Temp Pulse Resp BP Sys/Herman Pulse Ox Last 24 Hr 96.6 F-97.8 F 60-78 17-22 107-119/60-70 68-98 GENERAL: The patient is awake, in no acute distress, not following commends. HEAD: Normal with no signs of trauma. EYES: PERRL, small eyes,conjunctiva clear ENT: oropharynx clear without exudates, moist mucous membranes. NECK: Trachea midline, full range of motion, supple. LUNGS: Breath sounds equal, crackles B/L, no wheezes, no accessory muscle use. HEART: Regular rate and rhythm, S1, S2 without murmur, rub or gallop. ABDOMEN: Soft, nontender, nondistended, normoactive bowel sounds, no guarding, no rebound, peg tube, no erythema around. EXTREMITIES:no edema. NEUROLOGICAL: No facial asymmetry, gait not observed. PSYCH: Normal mood, normal affect. SKIN: Warm, dry, normal turgor, petechiae on upper and lower extremities, mild redness as well. Laboratory Results - last 24 hr 08/31/16 08/31/16 06:35 06:35 WBC 4.9 D RBC 3.21 L Hgb 10.6 L Hct 31.4 L MCV 97.8 H MCHC 33.9 RDW 15.1 Plt Count 152 MPV 9.2 Neutrophils % 45.3 D Lymphocytes % 48.9 H D Monocytes % 5.6 Eosinophils % 0.1 D Basophils % 0.1 Sodium 145 Potassium 3.7 Chloride 110 H Carbon Dioxide 26 Anion Gap 9 BUN 14 Creatinine 0.4 L Creat Clearance w eGFR > 60 Random Glucose 109 H Calcium 9.0 Total Bilirubin 0.2 AST 141 H ALT 333 H Alkaline Phosphatase 358 H Total Protein 6.3 L Albumin 2.7 L Active Medications Generic Name Dose Route Start Last Admin Trade Name Freq PRN Reason Stop Dose Admin Albuterol Sulfate 1 amp 08/27/16 20:57 08/29/16 11:47 Ventolin 0.083% Nebulizer Soln - NEB 1 amp Q4H PRN Administration SHORT OF BREATH/WHEEZING Albuterol/Ipratropium 1 amp 08/27/16 21:01 Duoneb - NEB Q4H PRN WHEEZING Baclofen 5 mg 08/27/16 22:00 08/31/16 13:33 Lioresal - GT 5 mg TID HARIS Administration Cholecalciferol 2,000 unit 08/28/16 10:00 08/31/16 10:56 Vitamin D3 - GT 2,000 unit DAILY HARIS Administration Diazepam 10 mg 08/27/16 21:15 Diastat Rectal Gel - RC PRN PRN SEIZURE Heparin Sodium (Porcine) 5,000 unit 08/27/16 22:00 08/31/16 10:55 Heparin - SQ 5,000 unit BID HARIS Administration Piperacillin Sod/Tazobactam Sod 50 mls @ 100 mls/hr 08/28/16 18:00 08/31/16 17: 44 Zosyn 3.375gm Ivpb (Pre-Docked) IVPB 100 mls/hr Q8H-IV HARIS Administration Protocol Lactulose 10 gm 08/27/16 22:00 08/31/16 13:33 Cephulac (Oral Use) GT 10 gm TID HARIS Administration Levetiracetam 1,500 mg 08/27/16 22:00 08/31/16 10:55 Keppra Oral Solution - GT 1,500 mg BID HARIS Administration Methylprednisolone Sodium Succinate 40 mg 08/27/16 22:00 08/31/16 10:56 Solu-Medrol - IVPB 40 mg BID HARIS Administration Multivitamins 5 ml 08/28/16 10:00 08/31/16 10:56 Thera-Plus - PO 5 ml DAILY HARIS Administration Oxcarbazepine 210 mg 08/27/16 22:00 08/30/16 23:25 Trileptal GT 210 mg HS HARIS Administration Oxcarbazepine 180 mg 08/28/16 10:00 08/31/16 10:56 Trileptal GT 180 mg DAILY HARIS Administration Senna/Docusate Sodium 2 tablet 08/27/16 22:00 08/30/16 21:45 Pericolace - PO 2 tablet HS HARIS Administration Topiramate 200 mg/ Topiramate 225 mg 08/27/16 22:00 08/31/16 10:56 25 mg GT 225 mg BID HARIS Administration EKG: NSR 89, no std/elizabeth, TWI III, normal axis, normal intervals, QTC 455 msec ASSESSMENT/PLAN: 25 yo F from [facility], PMHx of cerebral palsy, severe MR, seizure disorder with multiple seizures per day, PEG, spastic quadriparesis, GERD, scoliosis, visual impairment admitted for PNA. Pneumonia CXR show possible PNA Vanco stopped, Zosyn for 2 more days , Azithromycin day 3 last dose Consult ID- Dr. Rider Solumedrol 40mg IV BID Duonebs QID PRN Supplemental O2 to maintain SpO2 >90% Aspiration precautions chest PT frequent suctioning Seizure disorder Continue Levetiracetam (Keppra Oral Solution -) 1,500 mg GT BID Topiramate 200 mg/ Topiramate (25 mg) 225 mg GT BID HARIS Transaminitis: -abdoomen US done, no choolelithiasis, hyperechogenic liver -will monitor Hx of Cerebral palsy/Functional quadriplegia -comes from [facility] PEG tube in place daily assessment. Physical therapy request. DVT prophylaxis Heparin 5000 units BID Disposition: No plan for discharge yet Problem List - Problems (1) Functional quadriplegia Code(s): R53.2 - FUNCTIONAL QUADRIPLEGIA (2) Pneumonia Code(s): J18.9 - PNEUMONIA, UNSPECIFIED ORGANISM Qualifiers: Pneumonia type: due to unspecified organism Laterality: unspecified laterality Lung location: unspecified part of lung Qualified Code(s): J18.9 - Pneumonia, unspecified organism (3) Acute respiratory failure with hypoxia Code(s): J96.01 - ACUTE RESPIRATORY FAILURE WITH HYPOXIA (4) Cerebral palsy Code(s): G80.9 - CEREBRAL PALSY, UNSPECIFIED Qualifiers: Cerebral palsy type: spastic quadriplegic Qualified Code(s): G80.0 - Spastic quadriplegic cerebral palsy (5) Elevated liver enzymes Code(s): R74.8 - ABNORMAL LEVELS OF OTHER SERUM ENZYMES (6) Contusion Code(s): T14.8 - OTHER INJURY OF UNSPECIFIED BODY REGION (7) DVT prophylaxis Code(s): [id number] - Visit type - Emergency Visit Emergency Visit: Yes ED Registration Date: 08/27/16 Care time: The patient presented to the Emergency Department on the above date and was hospitalized for further evaluation of their emergent condition. - New Patient This patient is new to me today: No - Critical Care Critical Care patient: No - Discharge Referral Referred to [facility] Med P.C.: No
[2016-08-31] MEDS: SENNOSIDES/DOCUSATE COMBO (SENNA PLUS) TABLET (UD) PO SCH (22:00)
[2016-09-01] MEDS: PIPERACILLIN/TAZOB 3.375 GM 50 ML IVPB SCH ×2 (01:48→09:43)
[2016-09-01] MEDS: LACTULOSE 20 GM/30 ML UDC (FOR ORAL USE ONLY) GT SCH ×3 (06:15→21:50)
[2016-09-01] MEDS: BACLOFEN 10 MG TABLET (FP) GT SCH ×3 (06:15→21:51)
[2016-09-01 08:24] LABS: BASOPHIL 0.1 % (0-2.0); EOSINOPHIL 0.1 % (0-4.5); MCH 33.3 pg (25.7-33.7); MCHC 33.8 g/dl (32.0-36.0); MEAN CELL VOLUME 98.4 fl (80-96); MEAN PLT VOLUME 8.8 fl (7.5-11.1); NEUTROPHILS 49.5 % (42.8-82.8); PLATELET COUNT 166 K/MM3 (134-434); RDW 15.2 % (11.6-15.6); WHITE BLOOD COUNT 4.7 K/mm3 (4.0-10.0)
[2016-09-01] MEDS ORDERED: PT OWN MED DRAWER 7, Y5N ONE ×2 (09:05→21:42)
[2016-09-01] MEDS: TOPIRAMATE GT SCH ×2 (09:42→21:52)
[2016-09-01] MEDS: HEPARIN NA (PORCINE) 5,000 UNITS/ML 1ML VIAL SQ SCH ×2 (09:42→21:51)
[2016-09-01] MEDS: MULTIVITAMINS LIQUID THERAPEUTIC 118 ML BOT PO SCH (09:42)
[2016-09-01] MEDS: methylPREDNISolone NA SUCC 40 MG/1 ML VIAL IVPB SCH ×2 (09:42→21:51)
[2016-09-01] MEDS: levETIRAcetam 500 MG/5 ML ORAL SOLUTION (UNIT-DOSE CUPS) GT SCH ×2 (09:42→21:51)
[2016-09-01] MEDS: CHOLECALCIFEROL (VITAMIN D3) 1,000 UNIT TABLET (FP) GT SCH (09:43)
[2016-09-01] MEDS: OXcarbazepine 300 MG/5 ML 250 ML BULK BOTTLE GT SCH ×2 (09:43→21:53)
[2016-09-01 09:52] LABS: ALBUMIN 2.8 g/dl (3.4-5.0); ALK PHOS 333 U/L (45-117); ANION GAP 11 (8-16); BILIRUBIN,TOTAL 0.2 mg/dL (0.2-1.0); CALCIUM 9.1 mg/dL (8.5-10.1); CO2 24 mmol/L (21-32); CREATININE 0.4 mg/dL (0.55-1.02); GLUCOSE,RANDOM 103 mg/dL (74-106); SGOT/AST 94 U/L (15-37); SGPT/ALT 326 U/L (12-78); TOT PROT 6.3 g/dl (6.4-8.2)
--- NOTE | 2016-09-01 14:47 | PN ---
Physical Exam: SUBJECTIVE: Patient seen and examined. nonverbal. No overnight events. OBJECTIVE: Vital Signs Period Temp Pulse Resp BP Sys/Herman Pulse Ox Last 24 Hr 96.6 F-97.4 F 58-78 17-20 107-113/64-78 96-97 GENERAL: The patient is awake, in no acute distress, nonverbal, not following commands. HEAD: Normal with no signs of trauma. EYES: extraocular movements intact, sclera anicteric, conjunctiva clear. ENT: moist mucous membranes. NECK: Supple. LUNGS: Breath sounds equal, crackles bilaterally, no wheezes, no accessory muscle use. HEART: Regular rate and rhythm, S1, S2 without murmur, rub or gallop. ABDOMEN: Soft, nontender, nondistended, normoactive bowel sounds, no guarding, no rebound, no hepatosplenomegaly, PEG tube. EXTREMITIES: no edema. NEUROLOGICAL: no facial asymmetry gait not observed. PSYCH: Normal mood, normal affect. SKIN: Warm, dry, normal turgor, ecchymosis on upper and lower extremity. Laboratory Results - last 24 hr 09/01/16 09/01/16 07:10 07:10 WBC 4.7 RBC 3.19 L Hgb 10.6 L Hct 31.4 L MCV 98.4 H MCHC 33.8 RDW 15.2 Plt Count 166 MPV 8.8 Neutrophils % 49.5 Lymphocytes % 45.9 H Monocytes % 4.4 Eosinophils % 0.1 Basophils % 0.1 Sodium 146 H Potassium 3.8 Chloride 111 H Carbon Dioxide 24 Anion Gap 11 BUN 17 D Creatinine 0.4 L Creat Clearance w eGFR > 60 Random Glucose 103 Calcium 9.1 Total Bilirubin 0.2 AST 94 H D ALT 326 H Alkaline Phosphatase 333 H Total Protein 6.3 L Albumin 2.8 L Active Medications Generic Name Dose Route Start Last Admin Trade Name Freq PRN Reason Stop Dose Admin Albuterol Sulfate 1 amp 08/27/16 20:57 08/29/16 11:47 Ventolin 0.083% Nebulizer Soln - NEB 1 amp Q4H PRN Administration SHORT OF BREATH/WHEEZING Albuterol/Ipratropium 1 amp 08/27/16 21:01 08/31/16 21:48 Duoneb - NEB 1 amp Q4H PRN Administration WHEEZING Baclofen 5 mg 08/27/16 22:00 09/01/16 06:15 Lioresal - GT 5 mg TID HARIS Administration Cholecalciferol 2,000 unit 08/28/16 10:00 09/01/16 09:43 Vitamin D3 - GT 2,000 unit DAILY HARIS Administration Diazepam 10 mg 08/27/16 21:15 Diastat Rectal Gel - RC PRN PRN SEIZURE Heparin Sodium (Porcine) 5,000 unit 08/27/16 22:00 09/01/16 09:42 Heparin - SQ 5,000 unit BID AHRIS Administration Piperacillin Sod/Tazobactam Sod 50 mls @ 100 mls/hr 08/28/16 18:00 09/01/16 09: 43 Zosyn 3.375gm Ivpb (Pre-Docked) IVPB 100 mls/hr Q8H-IV HARIS Administration Protocol Lactulose 10 gm 08/27/16 22:00 09/01/16 06:15 Cephulac (Oral Use) GT 10 gm TID HARIS Administration Levetiracetam 1,500 mg 08/27/16 22:00 09/01/16 09:42 Keppra Oral Solution - GT 1,500 mg BID HARIS Administration Methylprednisolone Sodium Succinate 40 mg 08/27/16 22:00 09/01/16 09:42 Solu-Medrol - IVPB 40 mg BID HARIS Administration Multivitamins 5 ml 08/28/16 10:00 09/01/16 09:42 Thera-Plus - PO 5 ml DAILY HARIS Administration Oxcarbazepine 210 mg 08/27/16 22:00 08/31/16 22:01 Trileptal GT 210 mg HS HARIS Administration Oxcarbazepine 180 mg 08/28/16 10:00 09/01/16 09:43 Trileptal GT 180 mg DAILY HARIS Administration Senna/Docusate Sodium 2 tablet 08/27/16 22:00 08/31/16 22:00 Pericolace - PO 2 tablet HS HARIS Administration Topiramate 200 mg/ Topiramate 225 mg 08/27/16 22:00 09/01/16 09:42 25 mg GT 225 mg BID HARIS Administration EKG: NSR 89, no std/elizabeth, TWI III, normal axis, normal intervals, QTC 455 msec ASSESSMENT/PLAN: 25 yo F from [facility], PMHx of cerebral palsy, severe MR, seizure disorder with multiple seizures per day, PEG, spastic quadriparesis, GERD, scoliosis, visual impairment admitted for PNA. Pneumonia CXR show possible PNA: early infiltrates Vanco stopped, Zosyn for 2 more days , Azithromycin stopped Consult ID- Dr. Rider Solumedrol 40mg IV BID Duonebs QID PRN Supplemental O2 to maintain SpO2 >90% Aspiration precautions chest PT frequent suctioning Seizure disorder Continue Levetiracetam (Keppra Oral Solution -) 1,500 mg GT BID Topiramate 200 mg/ Topiramate (25 mg) 225 mg GT BID HARIS Transaminitis: -abdoomen US done, no choolelithiasis, hyperechogenic liver -will monitor Hx of Cerebral palsy/Functional quadriplegia -comes from [facility] PEG tube in place daily assessment. Physical therapy request. DVT prophylaxis Heparin 5000 units BID Disposition: No plan for discharge yet Problem List - Problems (1) Functional quadriplegia Code(s): R53.2 - FUNCTIONAL QUADRIPLEGIA (2) Pneumonia Code(s): J18.9 - PNEUMONIA, UNSPECIFIED ORGANISM Qualifiers: Pneumonia type: due to unspecified organism Laterality: unspecified laterality Lung location: unspecified part of lung Qualified Code(s): J18.9 - Pneumonia, unspecified organism (3) Acute respiratory failure with hypoxia Code(s): J96.01 - ACUTE RESPIRATORY FAILURE WITH HYPOXIA (4) Cerebral palsy Code(s): G80.9 - CEREBRAL PALSY, UNSPECIFIED Qualifiers: Cerebral palsy type: spastic quadriplegic Qualified Code(s): G80.0 - Spastic quadriplegic cerebral palsy (5) Elevated liver enzymes Code(s): R74.8 - ABNORMAL LEVELS OF OTHER SERUM ENZYMES (6) Contusion Code(s): T14.8 - OTHER INJURY OF UNSPECIFIED BODY REGION (7) DVT prophylaxis Code(s): [id number] - Visit type - Emergency Visit Emergency Visit: Yes ED Registration Date: 08/27/16 Care time: The patient presented to the Emergency Department on the above date and was hospitalized for further evaluation of their emergent condition. - New Patient This patient is new to me today: No - Critical Care Critical Care patient: No - Discharge Referral Referred to [facility] Med P.C.: No
--- NOTE | 2016-09-01 14:49 | PN ---
Progress Note, Physician History of Present Illness: patient doing well much better - Current Medication List Current Medications: Active Medications Albuterol Sulfate (Ventolin 0.083% Nebulizer Soln -) 1 amp NEB Q4H PRN PRN Reason: SHORT OF BREATH/WHEEZING Last Admin: 08/29/16 11:47 Dose: 1 amp Albuterol/Ipratropium (Duoneb -) 1 amp NEB Q4H PRN PRN Reason: WHEEZING Last Admin: 08/31/16 21:48 Dose: 1 amp Baclofen (Lioresal -) 5 mg GT TID [facility] Last Admin: 09/01/16 06:15 Dose: 5 mg Cholecalciferol (Vitamin D3 -) 2,000 unit GT DAILY [facility] Last Admin: 09/01/16 09:43 Dose: 2,000 unit Diazepam (Diastat Rectal Gel -) 10 mg RC PRN PRN PRN Reason: SEIZURE Heparin Sodium (Porcine) (Heparin -) 5,000 unit SQ BID [facility] Last Admin: 09/01/16 09:42 Dose: 5,000 unit Piperacillin Sod/Tazobactam Sod (Zosyn 3.375gm Ivpb (Pre-Docked)) 50 mls @ 100 mls/hr IVPB Q8H-IV HARIS PRN Reason: Protocol Last Admin: 09/01/16 09:43 Dose: 100 mls/hr Lactulose (Cephulac (Oral Use)) 10 gm GT TID [facility] Last Admin: 09/01/16 06:15 Dose: 10 gm Levetiracetam (Keppra Oral Solution -) 1,500 mg GT BID [facility] Last Admin: 09/01/16 09:42 Dose: 1,500 mg Methylprednisolone Sodium Succinate (Solu-Medrol -) 40 mg IVPB BID [facility] Last Admin: 09/01/16 09:42 Dose: 40 mg Multivitamins (Thera-Plus -) 5 ml PO DAILY [facility] Last Admin: 09/01/16 09:42 Dose: 5 ml Oxcarbazepine (Trileptal) 210 mg GT HS [facility] Last Admin: 08/31/16 22:01 Dose: 210 mg Oxcarbazepine (Trileptal) 180 mg GT DAILY [facility] Last Admin: 09/01/16 09:43 Dose: 180 mg Senna/Docusate Sodium (Pericolace -) 2 tablet PO [facility] Last Admin: 08/31/16 22:00 Dose: 2 tablet Topiramate 200 mg/ Topiramate (25 mg) 225 mg GT BID [facility] Last Admin: 09/01/16 09:42 Dose: 225 mg - Objective Vital Signs: Vital Signs Temperature 97.0 F L 09/01/16 14:00 Pulse Rate 58 L 09/01/16 14:00 Respiratory Rate 17 09/01/16 14:00 Blood Pressure 113/78 09/01/16 06:00 O2 Sat by Pulse Oximetry (%) 97 09/01/16 11:05 Constitutional: Yes: No Distress, Calm Cardiovascular: Yes: Regular Rate and Rhythm Respiratory: Yes: Regular, Rhonchi Gastrointestinal: Yes: Normal Bowel Sounds, Soft Musculoskeletal: Yes: WNL Extremities: Yes: WNL Neurological: Yes: Alert, Oriented Psychiatric: Yes: Alert Labs: CBC, BMP 09/01/16 07:10 09/01/16 07:10 INR, PTT INR 1.04 (0.82-1.09) 08/27/16 19:15 Assessment/Plan Problem List - Problem (1) Pneumonia (2) Acute respiratory failure with hypoxia (3) Seizure disorder (4) Cerebral palsy (5) Functional quadriplegia (6) Mental retardation leukocytosis sepsis due to pnumonia hypothermia plan patient continuing to do well can stop abx tomorrow
--- NOTE | 2016-09-01 17:17 | PN ---
Teaching Attending Note Name of Resident: Brianna Barone ATTENDING PHYSICIAN STATEMENT I saw and evaluated the patient. I reviewed the resident's note and discussed the case with the resident. I agree with the resident's findings and plan as documented. SUBJECTIVE: no events over night OBJECTIVE: NAD , CV: RRR Lungs : b/l course breathing sounds Ext : no n pitting edema over feet Abd: soft, NT, ND , NL BS ASSESSMENT AND PLAN: 25 year old female with Hx of Cerebral palsy , seizures and recurrent PNAs , who was sent from [facility] for respiratory distress with episode of desaturation to 86% and was found to have PNA 1- Acute resp failure due to PNA ( likely aspiration vs HCAP) . day 5/5 of Abx . will dc zosyn after this evening dose raise the head of the bed 2- transaminitis : LFTS plateaued and now started to improve. sepsis then Abx probably caused it Us reviewed. will repeat in AM 3- seizures , cont meds 4- dehydration : increase free water through TF meds were confirmed with [place] paperwork Possible dc to [place] tomorrow
[2016-09-01] MEDS ORDERED: PIPERACILLIN/TAZOB 3.375 GM 50 ML IVPB ONE (18:00)
[2016-09-01] MEDS: SENNOSIDES/DOCUSATE COMBO (SENNA PLUS) TABLET (UD) PO SCH (21:51)
[2016-09-02] MEDS: LACTULOSE 20 GM/30 ML UDC (FOR ORAL USE ONLY) GT SCH ×2 (06:01→13:54)
[2016-09-02] MEDS: BACLOFEN 10 MG TABLET (FP) GT SCH ×2 (06:02→13:53)
[2016-09-02] MEDS ORDERED: PT OWN MED DRAWER 7, Y5N ONE (09:16)
[2016-09-02] MEDS: HEPARIN NA (PORCINE) 5,000 UNITS/ML 1ML VIAL SQ SCH (09:19)
[2016-09-02] MEDS: levETIRAcetam 500 MG/5 ML ORAL SOLUTION (UNIT-DOSE CUPS) GT SCH (09:22)
[2016-09-02] MEDS: methylPREDNISolone NA SUCC 40 MG/1 ML VIAL IVPB SCH (09:22)
[2016-09-02] MEDS: MULTIVITAMINS LIQUID THERAPEUTIC 118 ML BOT PO SCH (09:23)
[2016-09-02] MEDS: OXcarbazepine 300 MG/5 ML 250 ML BULK BOTTLE GT SCH (09:24)
[2016-09-02] MEDS: TOPIRAMATE GT SCH (09:24)
[2016-09-02 09:26] LABS: ALBUMIN 2.9 g/dl (3.4-5.0); ANION GAP 8 (8-16); BILIRUBIN,TOTAL 0.3 mg/dL (0.2-1.0); CALCIUM 9.2 mg/dL (8.5-10.1); CO2 26 mmol/L (21-32); CREATININE 0.3 mg/dL (0.55-1.02); GLUCOSE,RANDOM 90 mg/dL (74-106); SGOT/AST 109 U/L (15-37); SGPT/ALT 359 U/L (12-78); TOT PROT 6.5 g/dl (6.4-8.2)
[2016-09-02] MEDS: CHOLECALCIFEROL (VITAMIN D3) 1,000 UNIT TABLET (FP) GT SCH (09:26)
[2016-09-02 09:27] LABS: ALK PHOS 332 U/L (45-117)
[2016-09-02 10:59] VITALS: BP 118/73; TEMP 97.1
[2016-09-02 13:50] VITALS: PULSE 64
--- NOTE | 2016-09-02 13:57 | PN ---
Teaching Attending Note Name of Resident: Brianna Barone ATTENDING PHYSICIAN STATEMENT I saw and evaluated the patient. I reviewed the resident's note and discussed the case with the resident. I agree with the resident's findings and plan as documented. SUBJECTIVE: no events over night OBJECTIVE: NAD , CV: RRR Lungs : b/l course breathing sounds Ext : non pitting edema over feet Abd: soft, NT, ND , NL BS ASSESSMENT AND PLAN: 25 year old female with Hx of Cerebral palsy , seizures and recurrent PNAs , who was sent from [facility] for respiratory distress with episode of desaturation to 86% and was found to have PNA 1- Acute resp failure due to PNA ( likely aspiration vs HCAP) . received 5 days of Abx . cont prednisone taper due to COPD 2- Transaminitis : LFTS plateaued . likely due to infection and Abx . will need repeat LFTS in 1 week , if not trending down will need further w/u 3- Seizures , cont meds 4- Dehydration , resolved . cont TF and free water per pre-admission rate dc to [place]
--- NOTE | 2016-09-02 16:32 | PN ---
Progress Note, Physician History of Present Illness: stable no new issues - Objective Vital Signs: Vital Signs Temperature 97.1 F L 09/02/16 13:49 Pulse Rate 64 09/02/16 13:49 Respiratory Rate 17 09/02/16 13:49 Blood Pressure 118/73 09/02/16 10:00 O2 Sat by Pulse Oximetry (%) 98 09/02/16 09:00 Constitutional: Yes: No Distress, Calm Cardiovascular: Yes: Regular Rate and Rhythm Respiratory: Yes: Regular, Poor Air Entry Gastrointestinal: Yes: Normal Bowel Sounds, Soft, Other (peg in place) Neurological: Yes: Alert Psychiatric: Yes: Alert Labs: CBC, BMP 09/01/16 07:10 09/02/16 08:13 INR, PTT INR 1.04 (0.82-1.09) 08/27/16 19:15 Assessment/Plan Problem List - Problem (1) Pneumonia (2) Acute respiratory failure with hypoxia (3) Seizure disorder (4) Cerebral palsy (5) Functional quadriplegia (6) Mental retardation leukocytosis sepsis due to pnumonia hypothermia plan patient continuing to do well can stop abx tomorrow
--- NOTE | 2016-09-02 18:14 | DS ---
Physical Exam: SUBJECTIVE: Patient seen and examined. She is nonverbal, MR. OBJECTIVE: Vital Signs Period Temp Pulse Resp BP Sys/Herman Pulse Ox Last 24 Hr 96.9 F-97.5 F 60-66 17-22 117-118/63-73 97-98 PHYSICAL EXAM GENERAL: The patient is awake, in no acute distress, nonverbal, not following commands. HEAD: Normal with no signs of trauma. EYES: extraocular movements intact, sclera anicteric, conjunctiva clear. ENT: moist mucous membranes. NECK: Supple. LUNGS: Breath sounds equal, crackles bilaterally, no wheezes, no accessory muscle use. HEART: Regular rate and rhythm, S1, S2 without murmur, rub or gallop. ABDOMEN: Soft, nontender, nondistended, normoactive bowel sounds, no guarding, no rebound, no hepatosplenomegaly, PEG tube. EXTREMITIES: no edema. NEUROLOGICAL: no facial asymmetry gait not observed. PSYCH: Normal mood, normal affect. SKIN: Warm, dry, normal turgor, ecchymosis on upper and lower extremity. LABS Laboratory Results - last 24 hr 09/02/16 08:13 Sodium 144 Potassium 3.9 Chloride 110 H Carbon Dioxide 26 Anion Gap 8 BUN 20 H Creatinine 0.3 L D Creat Clearance w eGFR > 60 Random Glucose 90 Calcium 9.2 Total Bilirubin 0.3 D AST 109 H ALT 359 H Alkaline Phosphatase 332 H Total Protein 6.5 Albumin 2.9 L HOSPITAL COURSE: Date of Admission:08/27/16 Date of Discharge: 09/02/16 Minutes to complete discharge: 50 Discharge Summary Reason For Visit: PNEUMONIA Hospital Course: 25 yo F from [facility], PMHx of cerebral palsy, severe MR, seizure disorder with multiple seizures per day, PEG, spastic quadriparesis, GERD, scoliosis, visual impairment presents to the emergency department for SOB 2/2 possible upper respiratory infection. Patient noted to be respiratory distress with O2 sat of 86% and tachypnea. Improved with supplemental oxygen. Patient is nonverbal and unable to provide more history. She was recently hospitalized for UTI in 2015. She was admitted for PNA. Hospital course: Pneumonia: CXR show possible PNA: early infiltrates, consulted ID, Vancomycin, Zosyn, Azithromycin, Solumedrol changed to Prednisone and taper after leaving the hospital. Duonebs QID PRN, Supplemental O2 to maintain SpO2 >90%, she was on 2 L NC, aspiration precautions, chest PT, frequent suctioning Seizure disorder:Continued Levetiracetam, Topiramate Transaminitis:-abdoomen US done, no choolelithiasis, hyperechogenic liver, LFTS plateaued . likely due to infection and Abx . She needs to repeat LFTS in 1 week , if not trending down will need further w/u. Hx of Cerebral palsy/Functional quadriplegia: comes from [facility], PEG tube in place, cont TF and free water per pre-admission rate. She clinically improved and was discharged to [facility] [place]. Condition: Improved - Instructions Diet, Activity, Other Instructions: Please see your primary care doctor in a week. Take Prednisone 40 mg once a day for 3 days, then 30 mg for 3 days, then 20 mg for 3 days, then 10 mg for 3 days, then stop. need repeat CBC , BMP , LFTs in q week continue feeding tube and free water per pre-admission routine . if NA started to be elevated , please adjust free water intake Referrals: Gianfranco Mohser MD, MD [Primary Care Provider] - Disposition: HOME - Home Medications Comprehensive Discharge Medication List: Ambulatory Orders Albuterol 2.5/Ipratropium 0.5 [Duoneb -] 1 neb NEB Q4H PRN 02/26/16 Baclofen 5 mg GT TID 02/26/16 Cholecalciferol (Vitamin D3) [Vitamin D3] 2,000 unit GT DAILY 02/26/16 Diazepam Rectal Gel [Diastat Rectal Gel -] 10 mg RC PRN 02/26/16 Lactulose 10 gm GT TID 02/26/16 Nutritional Supplement [Promote] 237 ml GT DAILY 02/26/16 Oxcarbazepine [Trileptal Susp 300 mg/5 mL -] 180 mg GT DAILY 02/26/16 Oxcarbazepine [Trileptal Susp 300 mg/5 mL -] 210 mg GT HS 02/26/16 Topiramate 225 mg GT BID 02/26/16 Levetiracetam [Keppra Oral Solution -] 1,500 mg GT BID 08/27/16 Multivit-Min/FA/Lycopen/Lutein [Vitrum 50+ Senior Tablet] 1 each GT DAILY Sennosides/Docusate Sodium [Senna-S Tablet] 2 each GT HS 08/27/16 Prednisone [Deltasone -] 40 mg PO DAILY #30 tablet 09/02/16 Problem List - Problems (1) Functional quadriplegia Code(s): R53.2 - FUNCTIONAL QUADRIPLEGIA (2) Pneumonia Code(s): J18.9 - PNEUMONIA, UNSPECIFIED ORGANISM Qualifiers: Pneumonia type: due to unspecified organism Laterality: unspecified laterality Lung location: unspecified part of lung Qualified Code(s): J18.9 - Pneumonia, unspecified organism (3) Acute respiratory failure with hypoxia Code(s): J96.01 - ACUTE RESPIRATORY FAILURE WITH HYPOXIA (4) Cerebral palsy Code(s): G80.9 - CEREBRAL PALSY, UNSPECIFIED Qualifiers: Cerebral palsy type: spastic quadriplegic Qualified Code(s): G80.0 - Spastic quadriplegic cerebral palsy (5) Elevated liver enzymes Code(s): R74.8 - ABNORMAL LEVELS OF OTHER SERUM ENZYMES (6) DVT prophylaxis Code(s): [id number] - This patient is new to me today: No Emergency Visit: Yes ED Registration Date: 08/27/16 Care time: The patient presented to the Emergency Department on the above date and was hospitalized for further evaluation of their emergent condition. Critical Care patient: No - Discharge Referral Referred to [facility] Med P.C.: No
[2016-09-03] MEDS ORDERED: predniSONE 10 MG TABLET (UD) PO SCH (10:00)
== END 2016-09-02 03:00 | disposition home or self-care (01) | DRG 871 ==
LOC: JER 18:08 → JERBED 20:45 → J6S 08-28 01:22
PROVIDERS: ADMIT Internal Medicine; ATTEND Internal Medicine
PROC: 3E0F7GC Introduction of Other Therapeutic Substance into Respiratory Tract, Via Natural or Artificial Opening (ICD-10-PCS; 2016-08-27)
PROC: 3E0H76Z Introduction of Nutritional Substance into Lower GI, Via Natural or Artificial Opening (ICD-10-PCS; principal; 2016-08-30)
DX: A41.9 Sepsis, unspecified organism (principal); G80.0 Spastic quadriplegic cerebral palsy; J96.01 Acute respiratory failure with hypoxia; J18.9 Pneumonia, unspecified organism; G40.802 Other epilepsy, not intractable, without status epilepticus; F72 Severe intellectual disabilities; K21.9 Gastro-esophageal reflux disease without esophagitis; M41.80 Other forms of scoliosis, site unspecified; H54.7 Unspecified visual loss; H47.619 Cortical blindness, unspecified side of brain; R68.0 Hypothermia, not associated with low environmental temperature; R74.8 Abnormal levels of other serum enzymes; E86.0 Dehydration; Z93.1 Gastrostomy status
CPT/HCPCS: 36415; 71010-TC; 76705-TC; 80053; 81003; 81015; 82550; 82553; 83605; 83735; 84100; 84484; 85025; 85610; 85730; 86850; 86900; 86901; 87040; 87086; 87254; 87804; 93005; 93010; 94640; 94667; 99285-25; J0475; J1644

== ENCOUNTER 2016-09-25 15:03 | Inpatient (IN) | payer OTHER ==
[2016-09-25 15:21] VITALS: BMI 21.7
[2016-09-25] MEDS ORDERED: ALBUTEROL SO4 2.5/IPRATROPIUM 0.5 INH SOL 3 ML VIAL.NEB. NEB ONE ×2 (15:30→15:59)
[2016-09-25] MEDS: ALBUTEROL SO4 2.5/IPRATROPIUM 0.5 INH SOL 3 ML VIAL.NEB. NEB SCH ×3 (15:45→16:43)
--- NOTE | 2016-09-25 16:19 | PDOC ---
History of Present Illness - General History Source: Care Provider, EMS Exam Limitations: Physical Impairment - History of Present Illness Initial Comments: 09/25/16 16:27 The patient is a 25 year old female brought via EMS from [facility] and presenting with a health care attorney, with a significant past medical history of with a significant past medical history of cerebral palsy, severe mental retardation, seizure disorder, PEG, spastic quadriparesis, GERD, scoliosis, visual impairment, who presents to the emergency department with congestion and cough with oxygen desaturation to 86-87%. The patient's oxygen saturation on baseline is 93%. The health care attorney notes that the patient has been congested and was sent from the correction for evaluation and treatment. The HPI is limited. Allergies: None Past surgical history: Peg Tube <Amaury Webster - Last Filed: 09/25/16 16:26> <Srinivas Boggs - Last Filed: 09/25/16 17:47> <Codey Nelson - Last Filed: 09/30/16 16:21> - General Chief Complaint: Cold Symptoms Stated Complaint: CONGESTION Time Seen by Provider: 09/25/16 15:28 Past History <Amaury Webster - Last Filed: 09/25/16 16:26> <Srinivas Boggs - Last Filed: 09/25/16 17:47> - Past Medical History GI Disorders: Yes (GERD. GTUBE.) Seizures: Yes (EPILEPSY.) - Surgical History Abdominal Surgery: Yes GI Surgery: Yes (GTUBE.) Neurologic Surgery: Yes (SPINAL SX.) - Psycho/Social/Smoking Cessation Hx Anxiety: No Suicidal Ideation: No Smoking History: Never smoked Have you smoked in the past 12 months: No Number of Cigarettes Smoked Daily: 0 Hx Alcohol Use: No Drug/Substance Use Hx: No Substance Use Type: None Hx Substance Use Treatment: No <Codey Nelson - Last Filed: 09/30/16 16:21> - Past Medical History Allergies/Adverse Reactions: Allergies Allergy/AdvReac Type Severity Reaction Status Date / Time No Known Allergies Allergy Verified 09/25/16 17:12 Home Medications: Ambulatory Orders Baclofen 5 mg GT TID 09/25/16 Cholecalciferol (Vitamin D3) [Vitamin D3] 2,000 unit GT DAILY 09/25/16 Diazepam Rectal Gel [Diastat Rectal Gel -] 10 mg HI PRN PRN 09/25/16 Lactulose 10 gm GT TID 09/25/16 Levetiracetam [levETIRAcetam ORAL SUSPENSION] 15 mg GT BID 09/25/16 OXcarbazepine [Trileptal] 180 mg GT DAILY 09/25/16 OXcarbazepine [Trileptal] 210 mg PO HS 09/25/16 Sennosides [Senna] 17.2 mg PO MOWEFR 09/25/16 Topiramate 25 mg GT BID 09/25/16 Topiramate 200 mg GT BID 09/25/16 Vitrum Liquid 15 ml GT DAILY 09/25/16 Review of Systems - Review of Systems Able to Perform ROS?: No Comments:: 09/25/16 16:27 Unable to obtain due to physical impairment. <Amaury Webster - Last Filed: 09/25/16 16:26> *Physical Exam - Vital Signs Last Vital Signs Temp Pulse Resp BP Pulse Ox 95.1 F L 95 H 26 H 114/57 93 L 09/25/16 15:30 09/25/16 15:12 09/25/16 15:12 09/25/16 15:12 09/25/16 15:12 <Amaury Webster - Last Filed: 09/25/16 16:26> - Vital Signs Last Vital Signs Temp Pulse Resp BP Pulse Ox 95.1 F L 95 H 26 H 114/57 95 09/25/16 15:30 09/25/16 15:12 09/25/16 15:12 09/25/16 15:12 09/25/16 15:35 <Srinivas Boggs - Last Filed: 09/25/16 17:47> - Vital Signs Last Vital Signs Temp Pulse Resp BP Pulse Ox 95.1 F L 95 H 26 H 114/57 93 L 09/25/16 15:30 09/25/16 15:12 09/25/16 15:12 09/25/16 15:12 09/25/16 15:12 - Physical Exam Comments: 09/25/16 16:33 EXAMINATION CONSTITUTIONAL: Awake, nonverbal, doesn't follow commands, in no apparent distress HEAD: Microcephalic EYES: PERRL; ENMT: mmm NECK: no cervical lymphadenopathy CARD: Normal S1, S2; no murmurs, rubs, or gallops RESP: Mildly tachypneic; diffuse rhonchi bilaterally, as well as upper respiratory sounds transmitted distally; ABD: Soft, non-distended; non-tender; no palpable organomegaly, no palpable hernias EXT: Extension contractures bilaterally to upper and lower extremities SKIN: Warm, dry, diffuse maculopapular rash to upper extremities, trunk and lower extremities, nonblanching, consistent with purpura NEURO: Awake, nonverbal, doesn't follow commands, <Codey Nelson - Last Filed: 09/30/16 16:21> ED Treatment Course - LABORATORY CBC & Chemistry Diagram: 09/25/16 16:40 09/25/16 16:40 - ADDITIONAL ORDERS Additional order review: Laboratory Results 09/25/16 16:40 Sodium 140 Potassium 3.5 Chloride 104 Carbon Dioxide 24 Anion Gap 12 BUN 16 Creatinine 0.5 L D Creat Clearance w eGFR > 60 Random Glucose 108 H Calcium 9.0 Total Bilirubin 0.3 AST 55 H D ALT 95 H D Alkaline Phosphatase 226 H D Total Protein 7.4 Albumin 3.6 D 09/25/16 16:40 RBC 3.88 D MCV 99.0 H MCHC 33.7 RDW 15.9 H MPV 8.6 Neutrophils % 90.1 H D Lymphocytes % 6.7 L D Monocytes % 3.0 L Eosinophils % 0.0 D Basophils % 0.2 - Medications Given in the ED: ED Medications Discontinued Medications Generic Name Dose Route Start Last Admin Trade Name Freq PRN Reason Stop Dose Admin Albuterol/Ipratropium 1 amp 09/25/16 15:45 09/25/16 16:43 Duoneb - NEB 09/25/16 16:31 Not Given Q15M HARIS <Srinivas Boggs - Last Filed: 09/25/16 17:47> - LABORATORY CBC & Chemistry Diagram: 09/30/16 05:50 09/30/16 05:50 - RADIOLOGY Radiology Studies Ordered: Category Date Time Status CHEST X-RAY PORTABLE* [RAD] Stat Radiology 09/25/16 15:28 Taken <Codey Nelson - Last Filed: 09/30/16 16:21> Medical Decision Making - Medical Decision Making 04/01/17 16:28 Patient is a 25-year-old female with history of cerebral palsy, severe MR, seizures, spastic quadriparesis, dextroscoliosis, GERD brought in for an episode of cough and congestion with desaturation to 86-87% prior to arrival. In the ER, patient is awake, nonverbal, does not follow commands, is noted to be hypothermic (baseline) and hypoxemic to 93% on room air (baseline). I suspect aspiration versus mucous plug. Will nebulized albuterol/Atrovent; will obtain a chest x-ray; will obtain CBC and CMP; the patient is no longer desaturating and no obvious infiltrate is noted on chest x-ray, we'll consider discharge. <Codey Nelson - Last Filed: 09/30/16 16:21> *DC/Admit/Observation/Transfer - Attestations Scribe Attestion: 09/25/16 16:27 Documentation prepared by Amaury Webster, acting as medical stenographer for Codey Nelson MD <Amaury Webster - Last Filed: 09/25/16 16:26> <Srinivas Boggs - Last Filed: 09/25/16 17:47> - Attestations Physician Attestion: 09/25/16 16:28 The documentation was prepared by the scribe under my direct supervision. I have reviewed the documentation which correctly represents the findings, medical decision-making and critical action taken by me. <Codey Nelson - Last Filed: 09/30/16 16:21> Diagnosis at time of Disposition: Pneumonia
[2016-09-25 16:49] LABS: BASOPHIL 0.2 % (0-2.0); MCH 33.3 pg (25.7-33.7); MCHC 33.7 g/dl (32.0-36.0); MEAN PLT VOLUME 8.6 fl (7.5-11.1); NEUTROPHILS 90.1 % (42.8-82.8); PLATELET COUNT 170 K/MM3 (134-434); RDW 15.9 % (11.6-15.6); WHITE BLOOD COUNT 12.1 K/mm3 (4.0-10.0)
[2016-09-25 17:18] LABS: ALBUMIN 3.6 g/dl (3.4-5.0); ALK PHOS 226 U/L (45-117); ANION GAP 12 (8-16); BILIRUBIN,TOTAL 0.3 mg/dL (0.2-1.0); CO2 24 mmol/L (21-32); CREATININE 0.5 mg/dL (0.55-1.02); GLUCOSE,RANDOM 108 mg/dL (74-106); SGOT/AST 55 U/L (15-37); SGPT/ALT 95 U/L (12-78); TOT PROT 7.4 g/dl (6.4-8.2)
[2016-09-25] MEDS ORDERED: SODIUM CHLORIDE 1,000 ML IV STA (18:07)
[2016-09-25] MEDS ORDERED: VANCOMYCIN 1,000 MG in DEXTROSE 5%-WATER - 250 ML IVPB ONE (18:09)
[2016-09-25] MEDS ORDERED: PIPERACILLIN/TAZOB 3.375 GM/50 ML PRE-DOCKED IVPB ONE (18:09)
--- NOTE | 2016-09-25 18:32 | PDOC ---
*Physical Exam - Vital Signs Last Vital Signs Temp Pulse Resp BP Pulse Ox 95.1 F L 95 H 26 H 114/57 95 09/25/16 15:30 09/25/16 15:12 09/25/16 15:12 09/25/16 15:12 09/25/16 15:35 ED Treatment Course - LABORATORY CBC & Chemistry Diagram: 09/25/16 16:40 09/25/16 16:40 - ADDITIONAL ORDERS Additional order review: Laboratory Results 09/25/16 16:40 Sodium 140 Potassium 3.5 Chloride 104 Carbon Dioxide 24 Anion Gap 12 BUN 16 Creatinine 0.5 L D Creat Clearance w eGFR > 60 Random Glucose 108 H Calcium 9.0 Total Bilirubin 0.3 AST 55 H D ALT 95 H D Alkaline Phosphatase 226 H D Total Protein 7.4 Albumin 3.6 D 09/25/16 16:40 RBC 3.88 D MCV 99.0 H MCHC 33.7 RDW 15.9 H MPV 8.6 Neutrophils % 90.1 H D Lymphocytes % 6.7 L D Monocytes % 3.0 L Eosinophils % 0.0 D Basophils % 0.2 - Medications Given in the ED: ED Medications Discontinued Medications Generic Name Dose Route Start Last Admin Trade Name Freq PRN Reason Stop Dose Admin Albuterol/Ipratropium 1 amp 09/25/16 15:45 09/25/16 16:43 Duoneb - NEB 09/25/16 16:31 Not Given Q15M [facility] Medical Decision Making - Medical Decision Making 09/25/16 18:29 Sign-out received from outgoing Emergency Physician Dr. Nelson Pt interviewed and examined Ancillary studies reviewed Case discussed in detail with oncoming Emergency Physician including history, physical exam and ancillary studies. Chest xray reviewed on imaging production superintendent hydro. Cannot rule out infiltrate. CBC, BMP 09/25/16 16:40 09/25/16 16:40 CMP Sodium 140 mmol/L (136-145) 09/25/16 16:40 Potassium 3.5 mmol/L (3.5-5.1) 09/25/16 16:40 Chloride 104 mmol/L (98-107) 09/25/16 16:40 Carbon Dioxide 24 mmol/L (21-32) 09/25/16 16:40 Anion Gap 12 (8-16) 09/25/16 16:40 BUN 16 mg/dL (7-18) 09/25/16 16:40 Creatinine 0.5 mg/dL (0.55-1.02) L D 09/25/16 16:40 Creat Clearance w eGFR > 60 (>60) 09/25/16 16:40 Random Glucose 108 mg/dL (74-106) H 09/25/16 16:40 Calcium 9.0 mg/dL (8.5-10.1) 09/25/16 16:40 Total Bilirubin 0.3 mg/dL (0.2-1.0) 09/25/16 16:40 AST 55 U/L (15-37) H D 09/25/16 16:40 ALT 95 U/L (12-78) H D 09/25/16 16:40 Alkaline Phosphatase 226 U/L (45-117) H D 09/25/16 16:40 Total Protein 7.4 g/dl (6.4-8.2) 09/25/16 16:40 Albumin 3.6 g/dl (3.4-5.0) D 09/25/16 16:40 While O2 saturation is improved, the patient continues to be tachycardic in 120s and still remains tachypneic to mid 20s. The brim molder at bedside notes that the patient appears to be in more distressed than her usual self. Blood cultured ordered. Vanc and zosyn ordered. Pt accepted to noncardiac tele under Dr. Zarate. Case discussed in detail with admitting physician including history, physical exam and ancillary studies. Admitting physician has assumed care for the patient, will follow all pending diagnostics and will complete the evaluation and treatment. *DC/Admit/Observation/Transfer Diagnosis at time of Disposition: Pneumonia Qualifiers: Pneumonia type: due to unspecified organism Laterality: unspecified laterality Lung location: unspecified part of lung Qualified Code(s): J18.9 - Pneumonia, unspecified organism - Discharge Dispostion Condition at time of disposition: Fair Admit: Yes
[2016-09-25] MEDS ORDERED: PIPERACILLIN/TAZOB 3.375 GM 50 ML IVPB ONE (18:43)
[2016-09-25] MEDS ORDERED: VANCOMYCIN 1 GRAM (PRE-DOCKED) 250 ML IVPB ONE (18:44)
[2016-09-25] MEDS ORDERED: SENNOSIDES 8.8 MG/5 ML BULK BOTTLE PO PRN (20:59)
--- NOTE | 2016-09-25 21:31 | HP ---
CHIEF COMPLAINT: Hypoxia PCP: Not on Staff HISTORY OF PRESENT ILLNESS: This is a 25 y/o female with a past medical history of Profound MR, Cerebral Palsy, Seizure Disorder, Peg Placement. Who presented to the ED from the [facility] for Hypoxia O2 86-87%. Unable to get HPI secondary to MR roque. Patient arrived to ED tachypneic 28, Spo2 93%. Patient was recently admitted last month for Pnuemonia. ER course was notable for: (1) WBC 12.1 (2) Chest Xray- Limited poor inspiratory study. Mild pulmonary vascular congestion or mild lung interstitial lung infiltrate is not excluded. (3) Transaminitis- > 1-2 xNL Recent Travel: None PAST MEDICAL HISTORY: See HPI PAST SURGICAL HISTORY: Peg Social History: Smoking: Never Alcohol: None Drugs: None Family History: Unknown Allergies No Known Allergies Allergy (Verified 09/25/16 17:12) HOME MEDICATIONS: Home Medications Medication Instructions Recorded Baclofen 5 mg GT TID 09/25/16 Cholecalciferol (Vitamin D3) 2,000 unit GT DAILY 09/25/16 [Vitamin D3] Diazepam Rectal Gel [Diastat 10 mg AL PRN PRN 09/25/16 Rectal Gel -] Lactulose 10 gm GT TID 09/25/16 Levetiracetam [levETIRAcetam ORAL 180 mg GT DAILY 09/25/16 SUSPENSION] Multivit-Min/FA/Lycopen/Lutein 1 each GT DAILY 09/25/16 [Vitrum 50+ Senior Tablet] OXcarbazepine [Trileptal] 180 mg GT DAILY 09/25/16 OXcarbazepine [Trileptal] 210 mg PO HS 09/25/16 Sennosides [Senna] 17.2 mg PO MOWEFR 09/25/16 Topiramate 25 mg GT BID 09/25/16 Topiramate 200 mg GT BID 09/25/16 REVIEW OF SYSTEMS Unable to Obtain CONSTITUTIONAL: Absent: fever, chills, diaphoresis, generalized weakness, malaise, loss of appetite, weight change HEENT: Absent: rhinorrhea, nasal congestion, throat pain, throat swelling, difficulty swallowing, mouth swelling, ear pain, eye pain, visual changes CARDIOVASCULAR: Absent: chest pain, syncope, palpitations, irregular heart rate, lightheadedness , peripheral edema RESPIRATORY: Absent: cough, shortness of breath, dyspnea with exertion, orthopnea, wheezing, stridor, hemoptysis GASTROINTESTINAL: Absent: abdominal pain, abdominal distension, nausea, vomiting, diarrhea, constipation, melena, hematochezia GENITOURINARY: Absent: dysuria, frequency, urgency, hesitancy, hematuria, flank pain, genital pain MUSCULOSKELETAL: Absent: myalgia, arthralgia, joint swelling, back pain, neck pain SKIN: Absent: rash, itching, pallor HEMATOLOGIC/IMMUNOLOGIC: Absent: easy bleeding, easy bruising, lymphadenopathy, frequent infections ENDOCRINE: Absent: unexplained weight gain, unexplained weight loss, heat intolerance, cold intolerance NEUROLOGIC: Absent: headache, focal weakness or paresthesias, dizziness, unsteady gait, seizure, mental status changes, bladder or bowel incontinence PSYCHIATRIC: Absent: anxiety, depression, suicidal or homicidal ideation, hallucinations. PHYSICAL EXAMINATION Vital Signs - 24 hr 09/25/16 19:08 Temperature 98.3 F Pulse Rate [ 117 H Apical] Respiratory 24 Rate Blood Pressure 113/85 [Left Arm] O2 Sat by Pulse 95 Oximetry (%) GENERAL: MR at baseline HEAD: Normal with no signs of trauma. EYES: Pupils equal, round and reactive to light, sclera anicteric, conjunctiva clear. No lid lag. EARS, NOSE, THROAT: Ears normal, nares patent, oropharynx clear without exudates. Moist mucous membranes. NECK: Passive range of motion, supple without lymphadenopathy, JVD, or masses. LUNGS: Scattered coarse rhonchi to right lobes, diffuse wheezes, and no crackles. No accessory muscle use. HEART: Regular rate and rhythm, normal S1 and S2 without murmur, rub or gallop. ABDOMEN: Peg tube, intact. Soft, nontender, not distended, normoactive bowel sounds, no guarding, no rebound, no masses. No hepatomegaly or splenomegaly. MUSCULOSKELETAL: Spastic, flaccid tone UPPER EXTREMITIES: 2+ pulses, warm, well-perfused. No cyanosis. No clubbing. No peripheral edema. LOWER EXTREMITIES: 2+ pulses, warm, well-perfused. No calf tenderness. No peripheral edema. NEUROLOGICAL: Profound MR. PSYCHIATRIC: Profound MR SKIN: Warm, dry, normal turgor, rashes or lesions noted, normal capillary refill. Laboratory Results - last 24 hr 04/01/17 04/01/17 04/01/17 16:40 16:40 18:15 WBC 12.1 H D RBC 3.88 D Hgb 12.9 D Hct 38.4 D MCV 99.0 H MCHC 33.7 RDW 15.9 H Plt Count 170 MPV 8.6 Neutrophils % 90.1 H D Lymphocytes % 6.7 L D Monocytes % 3.0 L Eosinophils % 0.0 D Basophils % 0.2 Sodium 140 Potassium 3.5 Chloride 104 Carbon Dioxide 24 Anion Gap 12 BUN 16 Creatinine 0.5 L D Creat Clearance w eGFR > 60 Random Glucose 108 H Lactic Acid 1.091 Calcium 9.0 Total Bilirubin 0.3 AST 55 H D ALT 95 H D Alkaline Phosphatase 226 H D Total Protein 7.4 Albumin 3.6 D ASSESSMENT/PLAN: This is a 25 y/o female with a PMHx of: Profound MR, Cerebral Palsy, Seizure Disorder. Admitted for HCAP, Acute Respiratory Failure with Hypoxia for further evaluation of their emergent condition. Problem List - Problem (1) Pneumonia Assessment/Plan: - Likely secondary to HCAP vs Aspirate - Patient is from the [facility] sent in for Hypoxia 86-87% - CURB65 Score 1 - Will treat for HCAP secondary to admission < 90 days - Appreciate ID Consult - Chest Xray- reviewed - WBC 12.1, with Left shift - Blood Cultures- pending - Urine Legionella-pending - Vanco and Zosyn given in ED - Will continue current ABX regimen - Monitor Vitals - HOB 30 degrees Code(s): J18.9 - PNEUMONIA, UNSPECIFIED ORGANISM Qualifiers: Pneumonia type: due to unspecified organism Laterality: unspecified laterality Lung location: unspecified part of lung Qualified Code(s): J18.9 - Pneumonia, unspecified organism (2) Acute respiratory failure with hypoxia Assessment/Plan: - Likely secondary to PNA - O2 - Duonebs prn - Consider Pulmonary Consult if no improvement Code(s): J96.01 - ACUTE RESPIRATORY FAILURE WITH HYPOXIA (3) Elevated liver enzymes Assessment/Plan: - Continue Lactulose - Monitor LFTs - Avoid Acetaminophen Code(s): R74.8 - ABNORMAL LEVELS OF OTHER SERUM ENZYMES (4) Seizure disorder Assessment/Plan: - Continue Keppra, Topamax, Tripletal - Seizure Precautions Code(s): G40.909 - EPILEPSY, UNSP, NOT INTRACTABLE, WITHOUT STATUS EPILEPTICUS (5) Cerebral palsy Assessment/Plan: - Continue Baclofen, anticonvulsants - Fall Precautions Code(s): G80.9 - CEREBRAL PALSY, UNSPECIFIED (6) Functional quadriplegia Code(s): R53.2 - FUNCTIONAL QUADRIPLEGIA (7) Mental retardation Assessment/Plan: - Continue to monitor and treat with interventions accordingly Code(s): F79 - UNSPECIFIED INTELLECTUAL DISABILITIES (8) Muscle spasm Assessment/Plan: - Continue Baclofen Code(s): M62.838 - OTHER MUSCLE SPASM (9) DVT prophylaxis Assessment/Plan: - TEDs - SCDs - Heparin SQ Code(s): [id number] - Visit type - Emergency Visit Emergency Visit: Yes ED Registration Date: 09/25/16 Care time: The patient presented to the Emergency Department on the above date and was hospitalized for further evaluation of their emergent condition. - New Patient This patient is new to me today: Yes Date on this admission: 09/25/16 - Critical Care Critical Care patient: No
[2016-09-25] MEDS ORDERED: TOPIRAMATE 200 MG TABLET (FP) GT SCH (22:00)
[2016-09-25] MEDS ORDERED: TOPIRAMATE 25 MG TABLET (FP) PO SCH (22:00)
[2016-09-25] MEDS: OXcarbazepine 300 MG/5 ML 250 ML BULK BOTTLE GT SCH (22:30)
[2016-09-25] MEDS: TOPIRAMATE GT SCH (22:30)
[2016-09-25] MEDS: LACTULOSE 20 GM/30 ML UDC (FOR ORAL USE ONLY) GT SCH (22:30)
[2016-09-25] MEDS: BACLOFEN 10 MG TABLET (FP) GT SCH (22:30)
[2016-09-25] MEDS: levETIRAcetam 500 MG/5 ML ORAL SOLUTION (UNIT-DOSE CUPS) GT SCH (22:30)
[2016-09-25] MEDS: HEPARIN NA (PORCINE) 5,000 UNITS/ML 1ML VIAL SQ SCH (22:44)
[2016-09-26] MEDS ORDERED: PIPERACILLIN/TAZOB 3.375 GM/50 ML PRE-DOCKED IVPB ONE ×2 (01:30→11:45)
[2016-09-26] MEDS: LACTULOSE 20 GM/30 ML UDC (FOR ORAL USE ONLY) GT SCH ×3 (05:49→22:45)
[2016-09-26] MEDS: BACLOFEN 10 MG TABLET (FP) GT SCH ×3 (05:49→22:48)
[2016-09-26 08:15] LABS: BASOPHIL 0.3 % (0-2.0); EOSINOPHIL 0.2 % (0-4.5); MCH 33.4 pg (25.7-33.7); MCHC 33.3 g/dl (32.0-36.0); MEAN CELL VOLUME 100.2 fl (80-96); MEAN PLT VOLUME 8.8 fl (7.5-11.1); NEUTROPHILS 86.6 % (42.8-82.8); PLATELET COUNT 143 K/MM3 (134-434); RDW 16.1 % (11.6-15.6); WHITE BLOOD COUNT 11.8 K/mm3 (4.0-10.0)
[2016-09-26 08:57] LABS: CALCIUM 8.5 mg/dL (8.5-10.1); CREATININE 0.6 mg/dL (0.55-1.02)
[2016-09-26] MEDS ORDERED: methylPREDNISolone NA SUCC 125 MG/2 ML VIAL IVPB ONE (09:01)
[2016-09-26] MEDS ORDERED: methylPREDNISolone NA SUCC 125 MG/2 ML VIAL ONE (09:04)
[2016-09-26] MEDS ORDERED: PT OWN MED DRAWER 7, Y5N ONE ×3 (09:46→22:42)
[2016-09-26] MEDS: OXcarbazepine 300 MG/5 ML 250 ML BULK BOTTLE GT SCH ×2 (09:55→22:52)
[2016-09-26] MEDS: levETIRAcetam 500 MG/5 ML ORAL SOLUTION (UNIT-DOSE CUPS) GT SCH ×2 (09:56→22:47)
[2016-09-26] MEDS: TOPIRAMATE GT SCH ×2 (09:57→22:51)
[2016-09-26 10:01] LABS: ALBUMIN 2.9 g/dl (3.4-5.0); BILIRUBIN,DIRECT 0.1 mg/dL (0.0-0.2); BILIRUBIN,TOTAL 0.4 mg/dL (0.2-1.0); TOT PROT 6.3 g/dl (6.4-8.2)
[2016-09-26] MEDS: HEPARIN NA (PORCINE) 5,000 UNITS/ML 1ML VIAL SQ SCH (10:06)
--- NOTE | 2016-09-26 10:07 | PN ---
Progress Note (short form) - Note Progress Note: Subjective: The patient was seen and examined at the bedside, she is non-verbal at baseline. Aide from [facility] at bedside. Tachypnea, tachycardia Patient has wheezing, given duoneb and started on Solumedrol Awaiting ID approval for abx Called by RN for temp 101, given rectal acetaminophen Liver enzymes trended down Current Medications Generic Name Dose Route Start Last Admin Trade Name Freq PRN Reason Stop Dose Admin Acetaminophen 650 mg 09/26/16 10:14 Tylenol Suppository - AL 09/26/16 10:15 ONCE ONE Albuterol/Ipratropium 1 amp 09/25/16 21:17 Duoneb - NEB Q6H PRN SHORTNESS OF BREATH Baclofen 5 mg 09/25/16 22:00 09/26/16 05:49 Lioresal - GT 5 mg TID HARIS Administration Heparin Sodium (Porcine) 5,000 unit 09/25/16 22:00 09/26/16 10:06 Heparin - SQ 5,000 unit BID HARIS Administration Vancomycin HCl 250 mls @ 200 mls/hr 09/26/16 10:00 Vancomycin (Pre-Docked) IVPB Q24H HARIS Lactulose 10 gm 09/25/16 22:00 09/26/16 05:49 Cephulac (Oral Use) GT 10 gm TID HARIS Administration Levetiracetam 1,500 mg 09/25/16 22:00 09/26/16 09:56 Keppra Oral Solution - GT 1,500 mg BID HARIS Administration Methylprednisolone Sodium Succinate 60 mg 09/26/16 18:00 Solu-Medrol - IVPB Q8H-IV HARIS Oxcarbazepine 180 mg 09/26/16 10:00 09/26/16 09:55 Trileptal GT 180 mg DAILY HARIS Administration Oxcarbazepine 210 mg 09/25/16 22:00 09/25/16 22:30 Trileptal GT 210 mg HS HARIS Administration Piperacillin Sod/Tazobactam Sod 3.375 gm 09/26/16 02:00 Zosyn 3.375gm Ivpb (Pre-Docked) IVPB Q8H-IV HARIS Protocol Senna 17.6 mg 09/27/16 10:00 Senna Oral Solution - PO MoWeFr@1000 HARIS Topiramate 200 mg/ Topiramate 225 mg 09/25/16 22:00 09/26/16 09:57 25 mg GT 225 mg BID HARIS Administration Objective: Vital Signs Period Temp Pulse Resp BP Sys/Herman Pulse Ox Last 24 Hr 95.1 F-99.1 F 89-119 16-26 113-142/57-87 93-98 Physical Exam: General: Non-verbal, tachypnic Lungs: Wheezing throughout anteriorly Heart: Tachycardia, S1S2 Abd: Soft, non-tender, non-distended. Normoactive bowel sounds Ext: Warm, well-perfused. Contracted. Neuro: unable to assess, patient non-verbal, does not follow commands CBCD WBC 11.8 K/mm3 (4.0-10.0) H 09/26/16 06:02 RBC 3.42 M/mm3 (3.60-5.2) L 09/26/16 06:02 Hgb 11.4 GM/dL (10.7-15.3) D 09/26/16 06:02 Hct 34.3 % (32.4-45.2) 09/26/16 06:02 MCV 100.2 fl (80-96) H 09/26/16 06:02 MCHC 33.3 g/dl (32.0-36.0) 09/26/16 06:02 RDW 16.1 % (11.6-15.6) H 09/26/16 06:02 Plt Count 143 K/MM3 (134-434) 09/26/16 06:02 MPV 8.8 fl (7.5-11.1) 09/26/16 06:02 CMP Sodium 145 mmol/L (136-145) 09/26/16 06:02 Potassium 3.7 mmol/L (3.5-5.1) 09/26/16 06:02 Chloride 111 mmol/L (98-107) H 09/26/16 06:02 Carbon Dioxide 23 mmol/L (21-32) 09/26/16 06:02 Anion Gap 11 (8-16) 09/26/16 06:02 BUN 13 mg/dL (7-18) 09/26/16 06:02 Creatinine 0.6 mg/dL (0.55-1.02) 09/26/16 06:02 Creat Clearance w eGFR > 60 (>60) 09/25/16 16:40 Random Glucose 66 mg/dL (74-106) L D 09/26/16 06:02 Calcium 8.5 mg/dL (8.5-10.1) 09/26/16 06:02 Total Bilirubin 0.4 mg/dL (0.2-1.0) D 09/26/16 06:02 AST 35 U/L (15-37) D 09/26/16 06:02 ALT 78 U/L (12-78) 09/26/16 06:02 Alkaline Phosphatase 165 U/L (45-117) H D 09/26/16 06:02 Total Protein 6.3 g/dl (6.4-8.2) L 09/26/16 06:02 Albumin 2.9 g/dl (3.4-5.0) L 09/26/16 06:02 Microbiology 09/25/16 18:37 Nasopharyngeal Swab Influenza Types A,B Antigen (RO) - Final 09/25/16 18:37 Nasopharyngeal Swab - Final Assessment: This is a 25 year old female with PMHx of cerebral palsy, severe MR , seizure disorder, PEG, spastic quadriparesis, GERD, scoliosis, who presented to the ED with tachypnea and was found to have pneumonia. Plan: 1) ID: Sepsis 2/2 presumptive aspiration pneumonia - F/u UA, urine legionella antigen - Tmax 101 today - WBC trending down - Blood cultures pending - F/u sputum culture - Continue Vancomycin and Zosyn (awaiting ID approval- hospitalization on 08/27, will treat as HCAP) - F/u ID consult 2) Pulmonary: Acute hypoxic respiratory failure 2/2 pneumonia - Audible wheezing throughout - Supplemental O2, keep SpO2 >90% - Duonebs - Solumedrol - Aspiration precautions - Chest PT - Suctioning prn - F/u pulmonary consult 3) Neuro: Seizure disorder - Continue Keppra - Continue Topamax - Continue Trileptal Mental retardation 4) GI: Transaminitis - Improving - Continue to monitor 5) F/E/N: - Monitor electrolytes - Tube feeds 6) Prophylaxis: - Heparin 5,000u sq bid - Functional quadraplegia 7) Dispo: - Requires continued inpatient care CODE STATUS: FULL CODE Visit type - Emergency Visit Emergency Visit: Yes ED Registration Date: 09/25/16 Care time: The patient presented to the Emergency Department on the above date and was hospitalized for further evaluation of their emergent condition. - New Patient This patient is new to me today: Yes Date on this admission: 09/26/16 - Critical Care Critical Care patient: No
[2016-09-26] MEDS ORDERED: ACETAMINOPHEN 650 MG SUPP.RECT PR ONE ×2 (10:14→15:56)
[2016-09-26] MEDS ORDERED: PIPERACILLIN/TAZOB 3.375 GM 50 ML IVPB ONE (11:19)
--- NOTE | 2016-09-26 14:26 | CON.PULM ---
Consult Consult Specialty:: PULM/CCM Referred by:: JASMYN Reason for Consultation:: SOB - History of Present Illness Chief Complaint: fever / SOB History of Present Illness: 25 F, well known to me from a recent admission in August for possible aspiration pneumonitis. Returns due to tachypnea and and Hypoxia to 86-87%. Unable to get a history due to profound MRTrevor Now seen on the medical floor. NAD on NC O2. CXR: significant improvement when compared to the CXR from 08/26/2016. 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, Other (cerbral palsy) Pulmonary: Yes: Asthma - Alcohol/Substance Use Hx Alcohol Use: No - Smoking History Smoking history: Never smoked Have you smoked in the past 12 months: No Aproximately how many cigarettes per day: 0 - Social History Usual Living Arrangement: Senior Living History of Recent Travel: No Home Medications - Allergies Allergies/Adverse Reactions: Allergies Allergy/AdvReac Type Severity Reaction Status Date / Time No Known Allergies Allergy Verified 09/25/16 17:12 - Home Medications Home Medications: Ambulatory Orders Baclofen 5 mg GT TID 09/25/16 Cholecalciferol (Vitamin D3) [Vitamin D3] 2,000 unit GT DAILY 09/25/16 Diazepam Rectal Gel [Diastat Rectal Gel -] 10 mg [place] PRN PRN 09/25/16 Lactulose 10 gm GT TID 09/25/16 Levetiracetam [levETIRAcetam ORAL SUSPENSION] 15 mg GT BID 09/25/16 OXcarbazepine [Trileptal] 180 mg GT DAILY 09/25/16 OXcarbazepine [Trileptal] 210 mg PO HS 09/25/16 Sennosides [Senna] 17.2 mg PO MOWEFR 09/25/16 Topiramate 25 mg GT BID 09/25/16 Topiramate 200 mg GT BID 09/25/16 Vitrum Liquid 15 ml GT DAILY 09/25/16 Review of Systems Unable to obtain ROS, reason: not able to provide Physical Exam Vital Sings: Vital Signs Temperature 99.1 F 09/26/16 08:00 Pulse Rate 119 H 09/26/16 08:00 Respiratory Rate 22 09/26/16 08:22 Blood Pressure 142/87 09/26/16 08:00 O2 Sat by Pulse Oximetry (%) 94 L 09/26/16 08:22 Constitutional: Yes: No Distress Eyes: Yes: Conjunctiva Clear HENT: Yes: Atraumatic Neck: Yes: Supple, Trachea Midline Cardiovascular: Yes: Regular Rate and Rhythm Respiratory: Yes: Cough, Diminished, On Nasal O2, Rhonchi. No: Accessory Muscle Use, Stridor, Tachypnea, Wheezes Labs: CBC, BMP 09/26/16 06:02 09/26/16 06:02 Imaging - Results Chest X-ray: Report Reviewed, Image Reviewed Problem List - Problems (1) Pneumonia Code(s): J18.9 - PNEUMONIA, UNSPECIFIED ORGANISM Qualifiers: Pneumonia type: due to unspecified organism Laterality: unspecified laterality Lung location: unspecified part of lung Qualified Code(s): J18.9 - Pneumonia, unspecified organism (2) Acute respiratory failure with hypoxia Code(s): J96.01 - ACUTE RESPIRATORY FAILURE WITH HYPOXIA (3) Elevated liver enzymes Code(s): R74.8 - ABNORMAL LEVELS OF OTHER SERUM ENZYMES (4) Cerebral palsy Code(s): G80.9 - CEREBRAL PALSY, UNSPECIFIED (5) Functional quadriplegia Code(s): R53.2 - FUNCTIONAL QUADRIPLEGIA (6) Mental retardation Code(s): F79 - UNSPECIFIED INTELLECTUAL DISABILITIES (7) Muscle spasm Code(s): M62.838 - OTHER MUSCLE SPASM (8) Seizure disorder Code(s): G40.909 - EPILEPSY, UNSP, NOT INTRACTABLE, WITHOUT STATUS EPILEPTICUS Assessment/Plan ABX per ID Aspirations precautions Check UA Terrazas-culture Check urinary antigen Would not CT chest at this time Will follow Thank you. Dr Ruffin
[2016-09-26] MEDS: ALBUTEROL SO4 2.5/IPRATROPIUM 0.5 INH SOL 3 ML VIAL.NEB. NEB PRN (15:26)
[2016-09-26 17:04] LABS: URINE APPEARANCE CLEAR; URINE BILIRUBIN NEGATIVE (NEGATIVE); URINE BLOOD NEGATIVE (NEGATIVE); URINE COLOR YELLOW; URINE GLUCOSE (UA) NEGATIVE (NEGATIVE); URINE KETONE NEGATIVE (NEGATIVE); URINE LEUK ESTERASE NEGATIVE (NEGATIVE); URINE NITRITE NEGATIVE (NEGATIVE); URINE PROTEIN NEGATIVE (NEGATIVE); URINE UROBILINOGEN NEGATIVE E.U./dl (0.2-1.0)
[2016-09-26] MEDS: methylPREDNISolone NA SUCC 125 MG/2 ML VIAL IVPB SCH (17:32)
--- NOTE | 2016-09-26 17:46 | CONSULT ---
Consult Consult Specialty:: infectious diseases Reason for Consultation:: pna - History of Present Illness Chief Complaint: resp distress History of Present Illness: a 25 y/o female with a past medical history of Profound MR, Cerebral Palsy, Seizure Disorder, Peg Placement. Who presented to the ED from the [facility] for Hypoxia O2 86-87%. Unable to get HPI secondary to MR roque. 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 (cerbral palsy) Pulmonary: Yes: Asthma - Alcohol/Substance Use Hx Alcohol Use: No - Smoking History Smoking history: Never smoked Have you smoked in the past 12 months: No Aproximately how many cigarettes per day: 0 - Social History Usual Living Arrangement: [facility] History of Recent Travel: No Home Medications - Allergies Allergies/Adverse Reactions: Allergies Allergy/AdvReac Type Severity Reaction Status Date / Time No Known Allergies Allergy Verified 09/25/16 17:12 - Home Medications Home Medications: Ambulatory Orders Baclofen 5 mg GT TID 09/25/16 Cholecalciferol (Vitamin D3) [Vitamin D3] 2,000 unit GT DAILY 09/25/16 Diazepam Rectal Gel [Diastat Rectal Gel -] 10 mg [place] PRN PRN 09/25/16 Lactulose 10 gm GT TID 09/25/16 Levetiracetam [levETIRAcetam ORAL SUSPENSION] 15 mg GT BID 09/25/16 OXcarbazepine [Trileptal] 180 mg GT DAILY 09/25/16 OXcarbazepine [Trileptal] 210 mg PO HS 09/25/16 Sennosides [Senna] 17.2 mg PO MOWEFR 09/25/16 Topiramate 25 mg GT BID 09/25/16 Topiramate 200 mg GT BID 09/25/16 Vitrum Liquid 15 ml GT DAILY 09/25/16 Review of Systems Unable to obtain ROS, reason: unable to obtain Physical Exam Vital Signs: Vital Signs Temperature 100.1 F H 09/26/16 14:30 Pulse Rate 91 H 09/26/16 14:30 Respiratory Rate 19 09/26/16 14:30 Blood Pressure 115/75 09/26/16 14:30 O2 Sat by Pulse Oximetry (%) 94 L 09/26/16 08:22 Constitutional: Yes: Other Eyes: Yes: WNL HENT: Yes: Atraumatic Neck: Yes: Supple Cardiovascular: Yes: Regular Rate and Rhythm, Tachycardia Respiratory: Yes: On Nasal O2, Poor Air Entry, Rhonchi Gastrointestinal: Yes: Normal Bowel Sounds, Soft, Other (peg in place) Musculoskeletal: Yes: Other Extremities: Yes: Other Neurological: Yes: Other Psychiatric: Yes: Alert Labs: CBC, BMP 09/26/16 06:02 09/26/16 06:02 Imaging - Results Chest X-ray: Report Reviewed, Image Reviewed Assessment/Plan Problem List - Problems (1) Pneumonia Code(s): J18.9 - PNEUMONIA, UNSPECIFIED ORGANISM Qualifiers: Pneumonia type: due to unspecified organism Laterality: unspecified laterality Lung location: unspecified part of lung Qualified Code(s): J18.9 - Pneumonia, unspecified organism (2) Acute respiratory failure with hypoxia Code(s): J96.01 - ACUTE RESPIRATORY FAILURE WITH HYPOXIA (3) Elevated liver enzymes Code(s): R74.8 - ABNORMAL LEVELS OF OTHER SERUM ENZYMES (4) Cerebral palsy Code(s): G80.9 - CEREBRAL PALSY, UNSPECIFIED (5) Functional quadriplegia Code(s): R53.2 - FUNCTIONAL QUADRIPLEGIA (6) Mental retardation Code(s): F79 - UNSPECIFIED INTELLECTUAL DISABILITIES (7) Muscle spasm Code(s): M62.838 - OTHER MUSCLE SPASM (8) Seizure disorder Code(s): G40.909 - EPILEPSY, UNSP, NOT INTRACTABLE, WITHOUT STATUS EPILEPTICUS plan hydration will start on zosyn close monitoring suctioning of secretions '
[2016-09-26] MEDS: PIPERACILLIN/TAZOB 3.375 GM 50 ML IVPB SCH (18:34)
[2016-09-27] MEDS: PIPERACILLIN/TAZOB 3.375 GM 50 ML IVPB SCH ×3 (02:30→17:34)
[2016-09-27] MEDS: methylPREDNISolone NA SUCC 125 MG/2 ML VIAL IVPB SCH ×3 (03:00→17:35)
[2016-09-27] MEDS: BACLOFEN 10 MG TABLET (FP) GT SCH ×3 (06:58→22:45)
[2016-09-27] MEDS: LACTULOSE 20 GM/30 ML UDC (FOR ORAL USE ONLY) GT SCH ×3 (06:58→22:46)
[2016-09-27 07:56] LABS: MCH 34.2 pg (25.7-33.7); MCHC 33.9 g/dl (32.0-36.0); MEAN CELL VOLUME 100.9 fl (80-96); MEAN PLT VOLUME 8.8 fl (7.5-11.1); PLATELET COUNT 141 K/MM3 (134-434); WHITE BLOOD COUNT 7.9 K/mm3 (4.0-10.0)
[2016-09-27 08:08] LABS: ALBUMIN 2.8 g/dl (3.4-5.0); CALCIUM 8.9 mg/dL (8.5-10.1); GLUCOSE,RANDOM 86 mg/dL (74-106); SGOT/AST 71 U/L (15-37); SGPT/ALT 103 U/L (12-78)
[2016-09-27 08:13] LABS: ALK PHOS 196 U/L (45-117); ANION GAP 12 (8-16); BILIRUBIN,TOTAL 0.5 mg/dL (0.2-1.0); CO2 22 mmol/L (21-32)
--- NOTE | 2016-09-27 09:35 | PN ---
Progress Note (short form) - Note Progress Note: Subjective: The patient was seen and examined at the bedside, she is non-verbal at baseline. Patient appear more comfortable than yesterday, tachycardia and tachypnea resolved Current Medications Generic Name Dose Route Start Last Admin Trade Name Freq PRN Reason Stop Dose Admin Albuterol/Ipratropium 1 amp 09/25/16 21:17 09/26/16 15:26 Duoneb - NEB 1 amp Q6H PRN Administration SHORTNESS OF BREATH Baclofen 5 mg 09/25/16 22:00 09/27/16 06:58 Lioresal - GT 5 mg TID HARIS Administration Vancomycin HCl 250 mls @ 200 mls/hr 09/26/16 10:00 Vancomycin (Pre-Docked) IVPB Q24H HARIS Piperacillin Sod/Tazobactam Sod 50 mls @ 100 mls/hr 09/26/16 18:00 09/27/16 02: 30 Zosyn 3.375gm Ivpb (Pre-Docked) IVPB 100 mls/hr Q8H-IV HARIS Administration Protocol Lactulose 10 gm 09/25/16 22:00 09/27/16 06:58 Cephulac (Oral Use) GT 10 gm TID HARIS Administration Levetiracetam 1,500 mg 09/25/16 22:00 09/26/16 22:47 Keppra Oral Solution - GT 1,500 mg BID HARIS Administration Methylprednisolone Sodium Succinate 60 mg 09/26/16 18:00 09/27/16 03:00 Solu-Medrol - IVPB 60 mg Q8H-IV HARIS Administration Oxcarbazepine 180 mg 09/26/16 10:00 09/26/16 09:55 Trileptal GT 180 mg DAILY HARIS Administration Oxcarbazepine 210 mg 09/25/16 22:00 09/26/16 22:52 Trileptal GT 210 mg HS HARIS Administration Senna 17.6 mg 09/27/16 10:00 Senna Oral Solution - PO MoWeFr@1000 HARIS Topiramate 200 mg/ Topiramate 225 mg 09/25/16 22:00 09/26/16 22:51 25 mg GT 225 mg BID HARIS Administration Objective: Vital Signs Period Temp Pulse Resp BP Sys/Herman Pulse Ox Last 24 Hr 98.6 F-100.1 F 76-128 18-20 98-115/44-75 100 Physical Exam: General: Non-verbal, tachypnic Lungs: Wheezing throughout anteriorly Heart: RRR, S1S2 Abd: Soft, non-tender, non-distended. Normoactive bowel sounds Ext: Warm, well-perfused. Contracted. Petechial rash on lower extremities and upper extremities (spoke to Khushi RN at [facility] who states patient has rash at baseline) Neuro: unable to assess, patient non-verbal, does not follow commands CBCD WBC 7.9 K/mm3 (4.0-10.0) D 09/27/16 06:00 RBC 2.98 M/mm3 (3.60-5.2) L 09/27/16 06:00 Hgb 10.2 GM/dL (10.7-15.3) L D 09/27/16 06:00 Hct 30.1 % (32.4-45.2) L 09/27/16 06:00 MCV 100.9 fl (80-96) H 09/27/16 06:00 MCHC 33.9 g/dl (32.0-36.0) 09/27/16 06:00 RDW 16.0 % (11.6-15.6) H 09/27/16 06:00 Plt Count 141 K/MM3 (134-434) 09/27/16 06:00 MPV 8.8 fl (7.5-11.1) 09/27/16 06:00 CMP Sodium 146 mmol/L (136-145) H 09/27/16 06:00 Potassium 4.0 mmol/L (3.5-5.1) 09/27/16 06:00 Chloride 112 mmol/L (98-107) H 09/27/16 06:00 Carbon Dioxide 22 mmol/L (21-32) 09/27/16 06:00 Anion Gap 12 (8-16) 09/27/16 06:00 BUN 13 mg/dL (7-18) 09/27/16 06:00 Creatinine 1.0 mg/dL (0.55-1.02) D 09/27/16 06:00 Creat Clearance w eGFR > 60 (>60) 09/27/16 06:00 Random Glucose 86 mg/dL (74-106) D 09/27/16 06:00 Calcium 8.9 mg/dL (8.5-10.1) 09/27/16 06:00 Total Bilirubin 0.5 mg/dL (0.2-1.0) D 09/27/16 06:00 AST 71 U/L (15-37) H D 09/27/16 06:00 ALT 103 U/L (12-78) H D 09/27/16 06:00 Alkaline Phosphatase 196 U/L (45-117) H 09/27/16 06:00 Total Protein 6.0 g/dl (6.4-8.2) L 09/27/16 06:00 Albumin 2.8 g/dl (3.4-5.0) L 09/27/16 06:00 Microbiology 09/25/16 18:15 Blood - Peripheral Venous Blood Culture - Preliminary NO GROWTH OBTAINED AFTER 24 HOURS, INCUBATION TO CONTINUE FOR 4 DAYS. 09/25/16 18:15 Blood - Peripheral Venous Blood Culture - Preliminary NO GROWTH OBTAINED AFTER 24 HOURS, INCUBATION TO CONTINUE FOR 4 DAYS. 09/25/16 18:37 Nasopharyngeal Swab Influenza Types A,B Antigen (RO) - Final 09/25/16 18:37 Nasopharyngeal Swab - Final Assessment: This is a 25 year old female with PMHx of cerebral palsy, severe MR , seizure disorder, PEG, spastic quadriparesis, GERD, scoliosis, who presented to the ED with tachypnea and was found to have pneumonia. Plan: 1) ID: Sepsis 2/2 presumptive aspiration pneumonia - UA negative - F/u urine legionella Ag - Tmax 100.1 - WBC wnl - Blood cultures NGTD - F/u sputum culture - Continue Vancomycin and Zosyn - F/u ID consult 2) Pulmonary: Acute hypoxic respiratory failure 2/2 pneumonia - Improving - Supplemental O2, keep SpO2 >90% - Duonebs - Solumedrol - Aspiration precautions - Chest PT - Suctioning prn - Appreciate pulmonary consult 3) Neuro: Seizure disorder - Continue Keppra - Continue Topamax - Continue Trileptal Mental retardation 4) GI: Transaminitis - Worsening today - Continue to monitor 5) F/E/N: - Monitor electrolytes - Tube feeds 6) Prophylaxis: - Heparin 5,000u sq bid - Functional quadraplegia 7) Dispo: - Requires continued inpatient care CODE STATUS: FULL CODE Visit type - Emergency Visit Emergency Visit: Yes ED Registration Date: 09/25/16 Care time: The patient presented to the Emergency Department on the above date and was hospitalized for further evaluation of their emergent condition. - New Patient This patient is new to me today: No - Critical Care Critical Care patient: No
[2016-09-27] MEDS ORDERED: PT OWN MED DRAWER 7, Y5N ONE (10:18)
[2016-09-27] MEDS: ALBUTEROL SO4 2.5/IPRATROPIUM 0.5 INH SOL 3 ML VIAL.NEB. NEB PRN ×2 (10:20→14:20)
[2016-09-27] MEDS: levETIRAcetam 500 MG/5 ML ORAL SOLUTION (UNIT-DOSE CUPS) GT SCH ×2 (10:32→22:45)
[2016-09-27] MEDS: SENNOSIDES 8.8 MG/5 ML BULK BOTTLE PO SCH (10:34)
[2016-09-27] MEDS: TOPIRAMATE GT SCH ×2 (10:35→22:45)
[2016-09-27] MEDS: OXcarbazepine 300 MG/5 ML 250 ML BULK BOTTLE GT SCH ×2 (10:36→22:46)
--- NOTE | 2016-09-27 11:49 | PN ---
Progress Note, Physician History of Present Illness: pulmonary awake,congested,+ less oral secretions - Current Medication List Current Medications: Active Medications Albuterol/Ipratropium (Duoneb -) 1 amp NEB Q6H PRN PRN Reason: SHORTNESS OF BREATH Last Admin: 09/27/16 10:20 Dose: 1 amp Baclofen (Lioresal -) 5 mg GT TID [facility] Last Admin: 09/27/16 06:58 Dose: 5 mg Vancomycin HCl (Vancomycin (Pre-Docked)) 250 mls @ 200 mls/hr IVPB Q24H HARIS Piperacillin Sod/Tazobactam Sod (Zosyn 3.375gm Ivpb (Pre-Docked)) 50 mls @ 100 mls/hr IVPB Q8H-IV HARIS PRN Reason: Protocol Last Admin: 09/27/16 10:37 Dose: 100 mls/hr Lactulose (Cephulac (Oral Use)) 10 gm GT TID [facility] Last Admin: 09/27/16 06:58 Dose: 10 gm Levetiracetam (Keppra Oral Solution -) 1,500 mg GT BID [facility] Last Admin: 09/27/16 10:32 Dose: 1,500 mg Methylprednisolone Sodium Succinate (Solu-Medrol -) 60 mg IVPB Q8H-IV [facility]IS Last Admin: 09/27/16 10:20 Dose: 60 mg Oxcarbazepine (Trileptal) 180 mg GT DAILY [facility] Last Admin: 09/27/16 10:36 Dose: 180 mg Oxcarbazepine (Trileptal) 210 mg GT HS [facility] Last Admin: 09/26/16 22:52 Dose: 210 mg Senna (Senna Oral Solution -) 17.6 mg PO MoWeFr@1000 [facility] Last Admin: 09/27/16 10:34 Dose: 17.6 mg Topiramate 200 mg/ Topiramate (25 mg) 225 mg GT BID [facility] Last Admin: 09/27/16 10:35 Dose: 225 mg - Objective Vital Signs: Vital Signs Temperature 98.4 F 09/27/16 10:00 Pulse Rate 83 09/27/16 10:00 Respiratory Rate 20 09/27/16 10:00 Blood Pressure 108/69 09/27/16 10:00 O2 Sat by Pulse Oximetry (%) 100 09/27/16 09:00 Constitutional: Yes: Calm, Thin Eyes: Yes: WNL HENT: Yes: WNL Neck: Yes: WNL Cardiovascular: Yes: Regular Rate and Rhythm, S1, S2 Respiratory: Yes: Rhonchi (bilateral rhonchi) Gastrointestinal: Yes: Normal Bowel Sounds, Soft Extremities: Yes: Shortened Edema: No Labs: CBC, BMP 09/27/16 06:00 09/27/16 06:00 Assessment/Plan Problem List - Problems (1) Pneumonia Code(s): J18.9 - PNEUMONIA, UNSPECIFIED ORGANISM Qualifiers: Pneumonia type: due to unspecified organism Laterality: unspecified laterality Lung location: unspecified part of lung Qualified Code(s): J18.9 - Pneumonia, unspecified organism (2) Acute respiratory failure with hypoxia Code(s): J96.01 - ACUTE RESPIRATORY FAILURE WITH HYPOXIA (3) Elevated liver enzymes Code(s): R74.8 - ABNORMAL LEVELS OF OTHER SERUM ENZYMES (4) Cerebral palsy Code(s): G80.9 - CEREBRAL PALSY, UNSPECIFIED (5) Functional quadriplegia Code(s): R53.2 - FUNCTIONAL QUADRIPLEGIA (6) Mental retardation Code(s): F79 - UNSPECIFIED INTELLECTUAL DISABILITIES (7) Muscle spasm Code(s): M62.838 - OTHER MUSCLE SPASM (8) Seizure disorder Code(s): G40.909 - EPILEPSY, UNSP, NOT INTRACTABLE, WITHOUT STATUS EPILEPTICUS Assessment/Plan ABX per ID Aspirations precautions Inhaled bronchodilators O2 F/U chest x-ray DR MATHEWS
--- NOTE | 2016-09-27 16:18 | PN ---
Progress Note, Physician History of Present Illness: patient looks much better than yesterday less secretions more awake - Current Medication List Current Medications: Active Medications Albuterol/Ipratropium (Duoneb -) 1 amp NEB Q6H PRN PRN Reason: SHORTNESS OF BREATH Last Admin: 09/27/16 10:20 Dose: 1 amp Baclofen (Lioresal -) 5 mg GT TID [facility] Last Admin: 09/27/16 14:03 Dose: 5 mg Vancomycin HCl (Vancomycin (Pre-Docked)) 250 mls @ 200 mls/hr IVPB Q24H HARIS Piperacillin Sod/Tazobactam Sod (Zosyn 3.375gm Ivpb (Pre-Docked)) 50 mls @ 100 mls/hr IVPB Q8H-IV HARIS PRN Reason: Protocol Last Admin: 09/27/16 10:37 Dose: 100 mls/hr Lactulose (Cephulac (Oral Use)) 10 gm GT TID [facility] Last Admin: 09/27/16 14:03 Dose: 10 gm Levetiracetam (Keppra Oral Solution -) 1,500 mg GT BID [facility] Last Admin: 09/27/16 10:32 Dose: 1,500 mg Methylprednisolone Sodium Succinate (Solu-Medrol -) 60 mg IVPB Q8H-IV [facility] Last Admin: 09/27/16 10:20 Dose: 60 mg Oxcarbazepine (Trileptal) 180 mg GT DAILY [facility] Last Admin: 09/27/16 10:36 Dose: 180 mg Oxcarbazepine (Trileptal) 210 mg GT HS [facility] Last Admin: 09/26/16 22:52 Dose: 210 mg Senna (Senna Oral Solution -) 17.6 mg PO MoWeFr@1000 [facility] Last Admin: 09/27/16 10:34 Dose: 17.6 mg Topiramate 200 mg/ Topiramate (25 mg) 225 mg GT BID [facility] Last Admin: 09/27/16 10:35 Dose: 225 mg - Objective Vital Signs: Vital Signs Temperature 99.2 F 09/27/16 13:52 Pulse Rate 74 09/27/16 13:52 Respiratory Rate 20 09/27/16 13:52 Blood Pressure 102/54 09/27/16 13:52 O2 Sat by Pulse Oximetry (%) 100 09/27/16 09:00 Constitutional: Yes: Calm Cardiovascular: Yes: Regular Rate and Rhythm Respiratory: Yes: Regular, On Nasal O2, Poor Air Entry, Rhonchi Gastrointestinal: Yes: Normal Bowel Sounds, Soft, Other (peg in place) Musculoskeletal: Yes: Other Extremities: Yes: Other Neurological: Yes: Alert, Other Psychiatric: Yes: Other Labs: CBC, BMP 09/27/16 06:00 09/27/16 06:00 Assessment/Plan Problem List - Problems (1) Pneumonia Code(s): J18.9 - PNEUMONIA, UNSPECIFIED ORGANISM Qualifiers: Pneumonia type: due to unspecified organism Laterality: unspecified laterality Lung location: unspecified part of lung Qualified Code(s): J18.9 - Pneumonia, unspecified organism (2) Acute respiratory failure with hypoxia Code(s): J96.01 - ACUTE RESPIRATORY FAILURE WITH HYPOXIA (3) Elevated liver enzymes Code(s): R74.8 - ABNORMAL LEVELS OF OTHER SERUM ENZYMES (4) Cerebral palsy Code(s): G80.9 - CEREBRAL PALSY, UNSPECIFIED (5) Functional quadriplegia Code(s): R53.2 - FUNCTIONAL QUADRIPLEGIA (6) Mental retardation Code(s): F79 - UNSPECIFIED INTELLECTUAL DISABILITIES (7) Muscle spasm Code(s): M62.838 - OTHER MUSCLE SPASM (8) Seizure disorder Code(s): G40.909 - EPILEPSY, UNSP, NOT INTRACTABLE, WITHOUT STATUS EPILEPTICUS plan conitnue abx patient improving '
[2016-09-28] MEDS: methylPREDNISolone NA SUCC 125 MG/2 ML VIAL IVPB SCH ×3 (01:26→17:18)
[2016-09-28] MEDS: PIPERACILLIN/TAZOB 3.375 GM 50 ML IVPB SCH ×3 (02:44→18:23)
[2016-09-28] MEDS: PIPERACILLIN/TAZOB 3.375 GM/50 ML PRE-DOCKED IVPB SCH (03:07)
[2016-09-28] MEDS: BACLOFEN 10 MG TABLET (FP) GT SCH ×3 (06:40→22:01)
[2016-09-28] MEDS: LACTULOSE 20 GM/30 ML UDC (FOR ORAL USE ONLY) GT SCH ×3 (06:40→22:00)
[2016-09-28 07:28] LABS: MCH 33.6 pg (25.7-33.7); MCHC 33.3 g/dl (32.0-36.0); MEAN PLT VOLUME 8.7 fl (7.5-11.1); NEUTROPHILS 76.5 % (42.8-82.8); PLATELET COUNT 155 K/MM3 (134-434); RDW 16.1 % (11.6-15.6); WHITE BLOOD COUNT 6.5 K/mm3 (4.0-10.0)
--- NOTE | 2016-09-28 07:33 | EKG ---
Test Reason : Blood Pressure : / mmHG Vent. Rate : 129 BPM Atrial Rate : 115 BPM P-R Int : 000 ms QRS Dur : 080 ms QT Int : 402 ms P-R-T Axes : 000 071 017 degrees QTc Int : 588 ms SINUS TACHYCARDIA NONSPECIFIC T WAVE ABNORMALITY ABNORMAL ECG WHEN COMPARED WITH ECG OF 27-AUG-2016 18:24, NO SIGNIFICANT CHANGE WAS FOUND Confirmed by RODRIGO GREENWOOD MD ([id number]) on 09/28/2016 7:32:52 AM Referred By: Rolanda GAINES Confirmed By:RODRIGO GREENWOOD MD
[2016-09-28 07:52] LABS: ANION GAP 12 (8-16); CO2 22 mmol/L (21-32); GLUCOSE,RANDOM 105 mg/dL (74-106)
[2016-09-28 07:54] LABS: ALK PHOS 191 U/L (45-117); BILIRUBIN,TOTAL 0.3 mg/dL (0.2-1.0); CREATININE 0.9 mg/dL (0.55-1.02); SGOT/AST 62 U/L (15-37); SGPT/ALT 115 U/L (12-78); TOT PROT 6.5 g/dl (6.4-8.2)
[2016-09-28] MEDS ORDERED: PT OWN MED DRAWER 7, Y5N ONE (10:07)
[2016-09-28] MEDS: TOPIRAMATE GT SCH ×2 (10:09→22:37)
[2016-09-28] MEDS: levETIRAcetam 500 MG/5 ML ORAL SOLUTION (UNIT-DOSE CUPS) GT SCH ×2 (10:10→22:00)
[2016-09-28] MEDS: OXcarbazepine 300 MG/5 ML 250 ML BULK BOTTLE GT SCH ×2 (10:11→22:01)
[2016-09-28] MEDS: ALBUTEROL SO4 2.5/IPRATROPIUM 0.5 INH SOL 3 ML VIAL.NEB. NEB PRN (10:40)
--- NOTE | 2016-09-28 11:10 | PN ---
Progress Note, Physician History of Present Illness: PULMONARY SLEEPING ,-RESP DISTRESS. - Current Medication List Current Medications: Active Medications Albuterol/Ipratropium (Duoneb -) 1 amp NEB Q6H PRN PRN Reason: SHORTNESS OF BREATH Last Admin: 09/27/16 10:20 Dose: 1 amp Baclofen (Lioresal -) 5 mg GT TID [facility] Last Admin: 09/28/16 06:40 Dose: 5 mg Vancomycin HCl (Vancomycin (Pre-Docked)) 250 mls @ 200 mls/hr IVPB Q24H [facility]IS Piperacillin Sod/Tazobactam Sod (Zosyn 3.375gm Ivpb (Pre-Docked)) 50 mls @ 100 mls/hr IVPB Q8H-IV [facility]IS PRN Reason: Protocol Last Admin: 09/28/16 10:27 Dose: 100 mls/hr Lactulose (Cephulac (Oral Use)) 10 gm GT TID [facility] Last Admin: 09/28/16 06:40 Dose: 10 gm Levetiracetam (Keppra Oral Solution -) 1,500 mg GT BID [facility] Last Admin: 09/28/16 10:10 Dose: 1,500 mg Methylprednisolone Sodium Succinate (Solu-Medrol -) 60 mg IVPB Q8H-IV [facility] Last Admin: 09/28/16 10:09 Dose: 60 mg Oxcarbazepine (Trileptal) 180 mg GT DAILY [facility] Last Admin: 09/28/16 10:11 Dose: 180 mg Oxcarbazepine (Trileptal) 210 mg GT HS [facility] Last Admin: 09/27/16 22:46 Dose: 210 mg Senna (Senna Oral Solution -) 17.6 mg PO MoWeFr@1000 [facility] Last Admin: 09/27/16 10:34 Dose: 17.6 mg Topiramate 200 mg/ Topiramate (25 mg) 225 mg GT BID [facility] Last Admin: 09/28/16 10:09 Dose: 225 mg - Objective Vital Signs: Vital Signs Temperature 99.0 F 09/28/16 06:00 Pulse Rate 65 09/28/16 06:00 Respiratory Rate 24 09/28/16 06:00 Blood Pressure 116/70 09/28/16 06:00 O2 Sat by Pulse Oximetry (%) 98 09/27/16 21:00 Constitutional: Yes: Well Nourished, Other (SLEEPING) Eyes: Yes: WNL HENT: Yes: WNL Neck: Yes: WNL Cardiovascular: Yes: Regular Rate and Rhythm, S1, S2 Respiratory: Yes: Rhonchi (LESS RHONCHI BILATERALLY) Gastrointestinal: Yes: Normal Bowel Sounds, Soft Extremities: Yes: WNL Edema: Yes Labs: CBC, BMP 09/28/16 05:35 09/28/16 05:35 Assessment/Plan Problem List - Problems (1) Pneumonia Code(s): J18.9 - PNEUMONIA, UNSPECIFIED ORGANISM Qualifiers: Pneumonia type: due to unspecified organism Laterality: unspecified laterality Lung location: unspecified part of lung Qualified Code(s): J18.9 - Pneumonia, unspecified organism (2) Acute respiratory failure with hypoxia Code(s): J96.01 - ACUTE RESPIRATORY FAILURE WITH HYPOXIA (3) Elevated liver enzymes Code(s): R74.8 - ABNORMAL LEVELS OF OTHER SERUM ENZYMES (4) Cerebral palsy Code(s): G80.9 - CEREBRAL PALSY, UNSPECIFIED (5) Functional quadriplegia Code(s): R53.2 - FUNCTIONAL QUADRIPLEGIA (6) Mental retardation Code(s): F79 - UNSPECIFIED INTELLECTUAL DISABILITIES (7) Muscle spasm Code(s): M62.838 - OTHER MUSCLE SPASM (8) Seizure disorder Code(s): G40.909 - EPILEPSY, UNSP, NOT INTRACTABLE, WITHOUT STATUS EPILEPTICUS Assessment/Plan ABX per ID Aspirations precautions Inhaled bronchodilators O2 F/U chest x-ray DR MATHEWS
--- NOTE | 2016-09-28 14:01 | PN ---
Progress Note, Physician History of Present Illness: events noted patient txed to telemetry - Current Medication List Current Medications: Active Medications Albuterol/Ipratropium (Duoneb -) 1 amp NEB Q6H PRN PRN Reason: SHORTNESS OF BREATH Last Admin: 09/28/16 10:40 Dose: 1 amp Baclofen (Lioresal -) 5 mg GT TID [facility] Last Admin: 09/28/16 13:00 Dose: 5 mg Vancomycin HCl (Vancomycin (Pre-Docked)) 250 mls @ 200 mls/hr IVPB Q24H [facility] Piperacillin Sod/Tazobactam Sod (Zosyn 3.375gm Ivpb (Pre-Docked)) 50 mls @ 100 mls/hr IVPB Q8H-IV [facility] PRN Reason: Protocol Last Admin: 09/28/16 10:27 Dose: 100 mls/hr Lactulose (Cephulac (Oral Use)) 10 gm GT TID [facility] Last Admin: 09/28/16 13:01 Dose: 10 gm Levetiracetam (Keppra Oral Solution -) 1,500 mg GT BID [facility] Last Admin: 09/28/16 10:10 Dose: 1,500 mg Methylprednisolone Sodium Succinate (Solu-Medrol -) 60 mg IVPB Q8H-IV [facility] Last Admin: 09/28/16 10:09 Dose: 60 mg Oxcarbazepine (Trileptal) 180 mg GT DAILY [facility] Last Admin: 09/28/16 10:11 Dose: 180 mg Oxcarbazepine (Trileptal) 210 mg GT HS [facility] Last Admin: 09/27/16 22:46 Dose: 210 mg Senna (Senna Oral Solution -) 17.6 mg PO MoWeFr@1000 [facility] Last Admin: 09/27/16 10:34 Dose: 17.6 mg Topiramate 200 mg/ Topiramate (25 mg) 225 mg GT BID [facility] Last Admin: 09/28/16 10:09 Dose: 225 mg - Objective Vital Signs: Vital Signs Temperature 99 F 09/28/16 10:00 Pulse Rate 78 09/28/16 10:40 Respiratory Rate 18 09/28/16 10:00 Blood Pressure 119/68 09/28/16 10:00 O2 Sat by Pulse Oximetry (%) 97 09/28/16 10:40 Constitutional: Yes: No Distress, Other Cardiovascular: Yes: Regular Rate and Rhythm, Tachycardia Respiratory: Yes: Poor Air Entry, Rhonchi, Other (secretions better) Gastrointestinal: Yes: Normal Bowel Sounds, Soft, Other (peg in place) Musculoskeletal: Yes: Other Extremities: Yes: Other Neurological: Yes: Other Labs: CBC, BMP 09/28/16 05:35 09/28/16 05:35 Assessment/Plan Problem List - Problems (1) Pneumonia Code(s): J18.9 - PNEUMONIA, UNSPECIFIED ORGANISM Qualifiers: Pneumonia type: due to unspecified organism Laterality: unspecified laterality Lung location: unspecified part of lung Qualified Code(s): J18.9 - Pneumonia, unspecified organism (2) Acute respiratory failure with hypoxia Code(s): J96.01 - ACUTE RESPIRATORY FAILURE WITH HYPOXIA (3) Elevated liver enzymes Code(s): R74.8 - ABNORMAL LEVELS OF OTHER SERUM ENZYMES (4) Cerebral palsy Code(s): G80.9 - CEREBRAL PALSY, UNSPECIFIED (5) Functional quadriplegia Code(s): R53.2 - FUNCTIONAL QUADRIPLEGIA (6) Mental retardation Code(s): F79 - UNSPECIFIED INTELLECTUAL DISABILITIES (7) Muscle spasm Code(s): M62.838 - OTHER MUSCLE SPASM (8) Seizure disorder Code(s): G40.909 - EPILEPSY, UNSP, NOT INTRACTABLE, WITHOUT STATUS EPILEPTICUS plan conitnue abx continue resp supprt rest as per pulmonary monitor closely for aspiration
--- NOTE | 2016-09-28 15:41 | PN ---
Physical Exam: SUBJECTIVE: Patient seen and examined. Nonverbal, sleeping on exam. arouses to pain. mild respiratory distress noted. OBJECTIVE: Vital Signs - 24 hr 3 09/27/16 09/27/16 09/27/16 18:00 21:00 21:30 Temperature 98.6 F 98.5 F Pulse Rate 95 H 65 Respiratory 19 24 Rate Blood Pressure 113/52 122/47 O2 Sat by Pulse 98 Oximetry (%) 3 09/28/16 09/28/16 09/28/16 06:00 10:00 10:40 Temperature 99.0 F 99 F Pulse Rate 65 60 78 Respiratory 24 18 Rate Blood Pressure 116/70 119/68 O2 Sat by Pulse 97 Oximetry (%) 3 09/28/16 15:19 Temperature 98.2 F Pulse Rate 72 Respiratory 18 Rate Blood Pressure 110/75 O2 Sat by Pulse Oximetry (%) GENERAL: The patient is sleeping on exam. arouses to pain. mild respiratory distress noted. HEAD: Normal with no signs of trauma. EYES: PERRL, extraocular movements intact, sclera anicteric, conjunctiva clear. No ptosis. ENT: Ears normal, nares patent, oropharynx clear without exudates, moist mucous membranes. NECK: Trachea midline, full range of motion, supple. LUNGS: Expiratory wheezing and rhonchi all lung zavala. HEART: Regular rate and rhythm, S1, S2 without murmur, rub or gallop. ABDOMEN: Soft, nontender, nondistended, normoactive bowel sounds, no guarding, no rebound, no hepatosplenomegaly, no masses. EXTREMITIES: 2+ pulses, warm, well-perfused, no edema. NEUROLOGICAL: Cranial nerves II through XII grossly intact. Normal speech, gait not observed. PSYCH: Normal mood, normal affect. SKIN: Warm, dry, normal turgor, no rashes or lesions noted Laboratory Results - last 24 hr 3 09/28/16 09/28/16 05:35 05:35 WBC 6.5 RBC 3.03 L Hgb 10.2 L Hct 30.6 L MCV 101.0 H MCHC 33.3 RDW 16.1 H Plt Count 155 MPV 8.7 Neutrophils % 76.5 Lymphocytes % 16.5 D Monocytes % 7.0 Eosinophils % 0.0 D Basophils % 0.0 Sodium 146 H Potassium 4.1 Chloride 112 H Carbon Dioxide 22 Anion Gap 12 BUN 19 H D Creatinine 0.9 Creat Clearance w eGFR > 60 Random Glucose 105 D Calcium 9.0 Total Bilirubin 0.3 D AST 62 H ALT 115 H Alkaline Phosphatase 191 H Total Protein 6.5 Albumin 3.0 L Active Medications 3 Generic Name Dose Route Start Last Admin Trade Name Freq PRN Reason Stop Dose Admin Albuterol/Ipratropium 1 amp 09/25/16 21:17 09/28/16 10:40 Duoneb - NEB 1 amp Q6H PRN Administration SHORTNESS OF BREATH Baclofen 5 mg 09/25/16 22:00 09/28/16 13:00 Lioresal - GT 5 mg TID [facility] Administration Vancomycin HCl 250 mls @ 200 mls/hr 09/26/16 10:00 Vancomycin (Pre-Docked) IVPB Q24H [facility] Piperacillin Sod/Tazobactam Sod 50 mls @ 100 mls/hr 09/26/16 18:00 09/28/16 10: 27 Zosyn 3.375gm Ivpb (Pre-Docked) IVPB 100 mls/hr Q8H-IV [facility] Administration Protocol Lactulose 10 gm 09/25/16 22:00 09/28/16 13:01 Cephulac (Oral Use) GT 10 gm TID [facility] Administration Levetiracetam 1,500 mg 09/25/16 22:00 09/28/16 10:10 Keppra Oral Solution - GT 1,500 mg BID [facility] Administration Methylprednisolone Sodium Succinate 60 mg 09/26/16 18:00 09/28/16 10:09 Solu-Medrol - IVPB 60 mg Q8H-IV [facility] Administration Oxcarbazepine 180 mg 09/26/16 10:00 09/28/16 10:11 Trileptal GT 180 mg DAILY [facility] Administration Oxcarbazepine 210 mg 09/25/16 22:00 09/27/16 22:46 Trileptal GT 210 mg HS [facility] Administration Senna 17.6 mg 09/27/16 10:00 09/27/16 10:34 Senna Oral Solution - PO 17.6 mg MoWeFr@1000 [facility] Administration Topiramate 200 mg/ Topiramate 225 mg 09/25/16 22:00 09/28/16 10:09 25 mg GT 225 mg BID [facility] Administration ASSESSMENT/PLAN: This is a 25 year old female with PMHx of cerebral palsy, severe MR, seizure disorder, PEG, spastic quadriparesis, GERD, scoliosis, who presented to the ED with tachypnea and was found to have pneumonia. Plan: Sepsis 2/2 presumptive aspiration pneumonia - urine legionella Ag and sprtococcus pneumoniae antigen negative - WBC wnl - Blood cultures NGTD - sputum culture prelim normal respiratory shiloh - Continue Vancomycin and Zosyn - F/u ID consult Acute hypoxic respiratory failure 2/2 pneumonia - Improving - Supplemental O2, keep SpO2 >90% - Duonebs - Solumedrol - Aspiration precautions - Chest PT - Suctioning prn - Appreciate pulmonary consult Seizure disorder - Continue Keppra - Continue Topamax - Continue Trileptal Transaminitis - slight improvement today - Continue to monitor Functional quadraplegia - increased risk for pneumonia, pressure ulcers - elevate HOB at all times F/E/N: - Monitor electrolytes - Tube feeds Prophylaxis: - Heparin 5,000u sq bid Dispo: - Requires continued inpatient care CODE STATUS: FULL CODE Visit type - Emergency Visit Emergency Visit: Yes ED Registration Date: 09/25/16 Care time: The patient presented to the Emergency Department on the above date and was hospitalized for further evaluation of their emergent condition. - New Patient This patient is new to me today: Yes Date on this admission: 09/28/16 - Critical Care Critical Care patient: No - Discharge Referral Referred to [facility] Med P.C.: No
[2016-09-28] MEDS: ALBUTEROL SO4 2.5/IPRATROPIUM 0.5 INH SOL 3 ML VIAL.NEB. NEB SCH (23:15)
[2016-09-29] MEDS: PIPERACILLIN/TAZOB 3.375 GM 50 ML IVPB SCH ×3 (01:00→17:18)
[2016-09-29] MEDS: methylPREDNISolone NA SUCC 125 MG/2 ML VIAL IVPB SCH ×3 (01:00→17:18)
[2016-09-29] MEDS: ALBUTEROL SO4 2.5/IPRATROPIUM 0.5 INH SOL 3 ML VIAL.NEB. NEB SCH ×3 (06:30→18:28)
[2016-09-29] MEDS: BACLOFEN 10 MG TABLET (FP) GT SCH ×3 (06:39→22:11)
[2016-09-29] MEDS: LACTULOSE 20 GM/30 ML UDC (FOR ORAL USE ONLY) GT SCH ×3 (06:40→22:11)
[2016-09-29] MEDS ORDERED: PT OWN MED DRAWER 7, Y5N ONE (09:50)
[2016-09-29] MEDS: levETIRAcetam 500 MG/5 ML ORAL SOLUTION (UNIT-DOSE CUPS) GT SCH ×2 (10:00→22:11)
[2016-09-29] MEDS: SENNOSIDES 8.8 MG/5 ML BULK BOTTLE PO SCH (10:00)
[2016-09-29] MEDS: OXcarbazepine 300 MG/5 ML 250 ML BULK BOTTLE GT SCH ×2 (10:01→22:12)
[2016-09-29] MEDS: TOPIRAMATE GT SCH ×2 (10:01→22:11)
--- NOTE | 2016-09-29 10:58 | PN ---
Progress Note, Physician History of Present Illness: PULMONARY SLEEPING,-RESP DISTRESS,LESS CONGESTION,LESS SECRETIONS - Current Medication List Current Medications: Active Medications Albuterol/Ipratropium (Duoneb -) 1 amp NEB QIDR [facility] Last Admin: 09/29/16 06:30 Dose: 1 amp Baclofen (Lioresal -) 5 mg GT TID [facility] Last Admin: 09/29/16 06:39 Dose: 5 mg Vancomycin HCl (Vancomycin (Pre-Docked)) 250 mls @ 200 mls/hr IVPB Q24H [facility] Piperacillin Sod/Tazobactam Sod (Zosyn 3.375gm Ivpb (Pre-Docked)) 50 mls @ 100 mls/hr IVPB Q8H-IV [facility] PRN Reason: Protocol Last Admin: 09/29/16 10:04 Dose: 100 mls/hr Lactulose (Cephulac (Oral Use)) 10 gm GT TID [facility] Last Admin: 09/29/16 06:40 Dose: 10 gm Levetiracetam (Keppra Oral Solution -) 1,500 mg GT BID [facility] Last Admin: 09/29/16 10:00 Dose: 1,500 mg Methylprednisolone Sodium Succinate (Solu-Medrol -) 60 mg IVPB Q8H-IV [facility] Last Admin: 09/29/16 09:59 Dose: 60 mg Oxcarbazepine (Trileptal) 180 mg GT DAILY [facility] Last Admin: 09/29/16 10:01 Dose: 180 mg Oxcarbazepine (Trileptal) 210 mg GT HS [facility] Last Admin: 09/28/16 22:01 Dose: 210 mg Senna (Senna Oral Solution -) 17.6 mg PO MoWeFr@1000 [facility] Last Admin: 09/29/16 10:00 Dose: 17.6 mg Topiramate 200 mg/ Topiramate (25 mg) 225 mg GT BID [facility] Last Admin: 09/29/16 10:01 Dose: 225 mg - Objective Vital Signs: Vital Signs Temperature 97.8 F 09/29/16 09:56 Pulse Rate 60 09/29/16 09:56 Respiratory Rate 18 09/29/16 09:56 Blood Pressure 116/65 09/29/16 09:56 O2 Sat by Pulse Oximetry (%) 97 09/28/16 21:00 Constitutional: Yes: Well Nourished, Other (SLEEPING) Eyes: Yes: WNL HENT: Yes: WNL Neck: Yes: Supple Cardiovascular: Yes: Regular Rate and Rhythm, S1, S2 Respiratory: Yes: Rhonchi Gastrointestinal: Yes: Normal Bowel Sounds, Soft Extremities: Yes: WNL Edema: No Labs: CBC, BMP 09/28/16 05:35 09/28/16 05:35 Assessment/Plan Problem List - Problems (1) Pneumonia Code(s): J18.9 - PNEUMONIA, UNSPECIFIED ORGANISM Qualifiers: Pneumonia type: due to unspecified organism Laterality: unspecified laterality Lung location: unspecified part of lung Qualified Code(s): J18.9 - Pneumonia, unspecified organism (2) Acute respiratory failure with hypoxia Code(s): J96.01 - ACUTE RESPIRATORY FAILURE WITH HYPOXIA (3) Elevated liver enzymes Code(s): R74.8 - ABNORMAL LEVELS OF OTHER SERUM ENZYMES (4) Cerebral palsy Code(s): G80.9 - CEREBRAL PALSY, UNSPECIFIED (5) Functional quadriplegia Code(s): R53.2 - FUNCTIONAL QUADRIPLEGIA (6) Mental retardation Code(s): F79 - UNSPECIFIED INTELLECTUAL DISABILITIES (7) Muscle spasm Code(s): M62.838 - OTHER MUSCLE SPASM (8) Seizure disorder Code(s): G40.909 - EPILEPSY, UNSP, NOT INTRACTABLE, WITHOUT STATUS EPILEPTICUS Assessment/Plan ABX per ID Aspirations precautions Inhaled bronchodilators O2 F/U chest x-ray today DR MATHEWS
--- NOTE | 2016-09-29 16:44 | PN ---
Physical Exam: SUBJECTIVE: Patient seen and examined. Nonverbal at baseline, opens eyes to tactile stimulation. OBJECTIVE: Vital Signs - 24 hr 3 09/28/16 09/28/16 09/28/16 17:00 21:00 22:00 Temperature 98.5 F 97.8 F Pulse Rate 52 L 58 L Respiratory 18 18 18 Rate Blood Pressure 95/49 120/84 O2 Sat by Pulse 97 Oximetry (%) 3 09/29/16 09/29/16 09/29/16 02:00 06:00 09:56 Temperature 97.6 F 97.6 F 97.8 F Pulse Rate 68 56 L 60 Respiratory 20 20 18 Rate Blood Pressure 128/79 131/68 116/65 O2 Sat by Pulse Oximetry (%) 3 09/29/16 09/29/16 09/29/16 10:10 12:12 13:18 Temperature 98.2 F Pulse Rate 68 48 L Respiratory 20 Rate Blood Pressure 101/57 O2 Sat by Pulse 96 95 Oximetry (%) GENERAL: The patient is arousable, in no acute distress. HEAD: Normal with no signs of trauma. EYES: PERRL, extraocular movements intact, sclera anicteric, conjunctiva clear. No ptosis. ENT: Ears normal, nares patent, oropharynx clear without exudates, moist mucous membranes. NECK: Trachea midline, full range of motion, supple. LUNGS: Breath sounds + wheezes, no rhonchi, no crackles, no accessory muscle use. HEART: Regular rate and rhythm, S1, S2 without murmur, rub or gallop. ABDOMEN: Soft, nontender, nondistended, normoactive bowel sounds, no guarding, no rebound, no hepatosplenomegaly, no masses. EXTREMITIES: 2+ pulses, warm, well-perfused, no edema. NEUROLOGICAL: Cranial nerves II through XII grossly intact. Normal speech, gait not observed. PSYCH: Normal mood, normal affect. SKIN: Warm, dry, normal turgor, no rashes or lesions noted Active Medications 3 Generic Name Dose Route Start Last Admin Trade Name Freq PRN Reason Stop Dose Admin Albuterol/Ipratropium 1 amp 09/28/16 18:30 09/29/16 12:15 Duoneb - NEB 1 amp QIDR [facility] Administration Baclofen 5 mg 09/25/16 22:00 04/05/17 14:28 Lioresal - GT 5 mg TID [facility] Administration Vancomycin HCl 250 mls @ 200 mls/hr 09/26/16 10:00 Vancomycin (Pre-Docked) IVPB Q24H [facility] Piperacillin Sod/Tazobactam Sod 50 mls @ 100 mls/hr 09/26/16 18:00 09/29/16 10: 04 Zosyn 3.375gm Ivpb (Pre-Docked) IVPB 100 mls/hr Q8H-IV [facility] Administration Protocol Lactulose 10 gm 09/25/16 22:00 09/29/16 14:28 Cephulac (Oral Use) GT 10 gm TID [facility] Administration Levetiracetam 1,500 mg 09/25/16 22:00 09/29/16 10:00 Keppra Oral Solution - GT 1,500 mg BID [facility] Administration Methylprednisolone Sodium Succinate 60 mg 09/26/16 18:00 09/29/16 09:59 Solu-Medrol - IVPB 60 mg Q8H-IV [facility] Administration Oxcarbazepine 180 mg 09/26/16 10:00 09/29/16 10:01 Trileptal GT 180 mg DAILY [facility] Administration Oxcarbazepine 210 mg 09/25/16 22:00 09/28/16 22:01 Trileptal GT 210 mg HS [facility] Administration Senna 17.6 mg 09/27/16 10:00 09/29/16 10:00 Senna Oral Solution - PO 17.6 mg MoWeFr@1000 [facility] Administration Topiramate 200 mg/ Topiramate 225 mg 09/25/16 22:00 09/29/16 10:01 25 mg GT 225 mg BID [facility] Administration ASSESSMENT/PLAN: This is a 25 year old female with PMHx of cerebral palsy, severe MR, seizure disorder, PEG, spastic quadriparesis, GERD, scoliosis, who presented to the ED with tachypnea and was found to have pneumonia. Sepsis 2/2 presumptive aspiration pneumonia - urine legionella Ag and sprtococcus pneumoniae antigen negative - WBC wnl - Blood cultures NGTD - sputum culture normal respiratory shiloh - Continue Vancomycin and Zosyn, tx for HCAP, recent hospitalization 08/27-09/02 - F/u ID consult Acute hypoxic respiratory failure 2/2 pneumonia - Improving - Supplemental O2, keep SpO2 >90% - Duonebs - cont Solumedrol at current dose as still actively wheezing - Aspiration precautions - Chest PT - Suctioning prn - Appreciate pulmonary consult Seizure disorder - Continue Keppra - Continue Topamax - Continue Trileptal Transaminitis - Continue to monitor Functional quadraplegia - increased risk for pneumonia, pressure ulcers - elevate HOB at all times while receiving tube feeds F/E/N: - Monitor electrolytes - Tube feeds Prophylaxis: - Heparin 5,000u sq bid Dispo: - Requires continued inpatient care CODE STATUS: FULL CODE Visit type - Emergency Visit Emergency Visit: Yes ED Registration Date: 09/25/16 Care time: The patient presented to the Emergency Department on the above date and was hospitalized for further evaluation of their emergent condition. - New Patient This patient is new to me today: No - Critical Care Critical Care patient: No - Discharge Referral Referred to [facility] Med P.C.: No
[2016-09-30] MEDS: ALBUTEROL SO4 2.5/IPRATROPIUM 0.5 INH SOL 3 ML VIAL.NEB. NEB SCH ×6 (00:18→23:37)
[2016-09-30] MEDS: methylPREDNISolone NA SUCC 125 MG/2 ML VIAL IVPB SCH ×4 (02:02→21:54)
[2016-09-30] MEDS: PIPERACILLIN/TAZOB 3.375 GM 50 ML IVPB SCH ×3 (02:02→17:49)
[2016-09-30] MEDS: LACTULOSE 20 GM/30 ML UDC (FOR ORAL USE ONLY) GT SCH ×3 (06:26→21:53)
[2016-09-30] MEDS: BACLOFEN 10 MG TABLET (FP) GT SCH ×3 (06:26→21:52)
[2016-09-30 08:07] LABS: BASOPHIL 0.1 % (0-2.0); EOSINOPHIL 0.1 % (0-4.5); MCH 33.6 pg (25.7-33.7); MCHC 33.1 g/dl (32.0-36.0); MEAN CELL VOLUME 101.3 fl (80-96); MEAN PLT VOLUME 9.1 fl (7.5-11.1); NEUTROPHILS 80.5 % (42.8-82.8); PLATELET COUNT 143 K/MM3 (134-434); RDW 15.8 % (11.6-15.6); WHITE BLOOD COUNT 6.7 K/mm3 (4.0-10.0)
[2016-09-30 08:46] LABS: ALK PHOS 164 U/L (45-117); ANION GAP 12 (8-16); BILIRUBIN,TOTAL 0.3 mg/dL (0.2-1.0); CALCIUM 8.4 mg/dL (8.5-10.1); CO2 23 mmol/L (21-32); CREATININE 0.7 mg/dL (0.55-1.02); GLUCOSE,RANDOM 136 mg/dL (74-106); SGOT/AST 45 U/L (15-37); SGPT/ALT 99 U/L (12-78); TOT PROT 6.3 g/dl (6.4-8.2)
[2016-09-30] MEDS ORDERED: PT OWN MED DRAWER 7, Y5N ONE ×2 (09:02→21:56)
[2016-09-30] MEDS: levETIRAcetam 500 MG/5 ML ORAL SOLUTION (UNIT-DOSE CUPS) GT SCH ×2 (09:52→22:06)
[2016-09-30] MEDS: OXcarbazepine 300 MG/5 ML 250 ML BULK BOTTLE GT SCH ×2 (09:56→22:06)
[2016-09-30] MEDS: TOPIRAMATE GT SCH ×2 (09:58→22:06)
--- NOTE | 2016-09-30 12:10 | PN ---
Progress Note (short form) - Note Progress Note: Subjective: The patient was seen and examined at the bedside, she is non-verbal at baseline. Patient appears comfortable, no wheezing noted on exam, will decrease solu- medrol dosage Current Medications Generic Name Dose Route Start Last Admin Trade Name Medq PRN Reason Stop Dose Admin Albuterol/Ipratropium 1 amp 09/28/16 18:30 09/30/16 12:08 Duoneb - NEB 1 amp QIDR [facility] Administration Baclofen 5 mg 09/25/16 22:00 09/30/16 06:26 Lioresal - GT 5 mg TID [facility] Administration Vancomycin HCl 250 mls @ 200 mls/hr 09/26/16 10:00 Vancomycin (Pre-Docked) IVPB Q24H [facility] Piperacillin Sod/Tazobactam Sod 50 mls @ 100 mls/hr 09/26/16 18:00 09/30/16 09: 45 Zosyn 3.375gm Ivpb (Pre-Docked) IVPB 100 mls/hr Q8H-IV [facility] Administration Protocol Lactulose 10 gm 09/25/16 22:00 09/30/16 06:26 Cephulac (Oral Use) GT 10 gm TID [facility] Administration Levetiracetam 1,500 mg 09/25/16 22:00 09/30/16 09:52 Keppra Oral Solution - GT 1,500 mg BID [facility] Administration Methylprednisolone Sodium Succinate 40 mg 09/30/16 12:15 Solu-Medrol - IVPB Q6H [facility] Oxcarbazepine 180 mg 09/26/16 10:00 09/30/16 09:56 Trileptal GT 180 mg DAILY [facility] Administration Oxcarbazepine 210 mg 09/25/16 22:00 09/29/16 22:12 Trileptal GT 210 mg HS [facility] Administration Senna 17.6 mg 09/27/16 10:00 09/29/16 10:00 Senna Oral Solution - PO 17.6 mg MoWeFr@1000 [facility] Administration Topiramate 200 mg/ Topiramate 225 mg 09/25/16 22:00 09/30/16 09:58 25 mg GT 225 mg BID [facility] Administration Objective: Vital Signs Period Temp Pulse Resp BP Sys/Herman Pulse Ox Last 24 Hr 97.6 F-98.2 F 48-80 18-22 101-134/57-85 95-97 Physical Exam: General: Non-verbal, tachypnic Lungs: Upper airway grunting noted, no wheezing on exam Heart: RRR, S1S2 Abd: Soft, non-tender, non-distended. Normoactive bowel sounds Ext: Warm, well-perfused. Contracted. Petechial rash on lower extremities and upper extremities (spoke to SUZAN Puri at [facility] who states patient has rash at baseline) Neuro: unable to assess, patient non-verbal, does not follow commands CBCD WBC 6.7 K/mm3 (4.0-10.0) 09/30/16 05:50 RBC 3.00 M/mm3 (3.60-5.2) L 09/30/16 05:50 Hgb 10.1 GM/dL (10.7-15.3) L 09/30/16 05:50 Hct 30.3 % (32.4-45.2) L 09/30/16 05:50 MCV 101.3 fl (80-96) H 09/30/16 05:50 MCHC 33.1 g/dl (32.0-36.0) 09/30/16 05:50 RDW 15.8 % (11.6-15.6) H 09/30/16 05:50 Plt Count 143 K/MM3 (134-434) 09/30/16 05:50 MPV 9.1 fl (7.5-11.1) 09/30/16 05:50 CMP Sodium 147 mmol/L (136-145) H 09/30/16 05:50 Potassium 3.7 mmol/L (3.5-5.1) 09/30/16 05:50 Chloride 112 mmol/L (98-107) H 09/30/16 05:50 Carbon Dioxide 23 mmol/L (21-32) 09/30/16 05:50 Anion Gap 12 (8-16) 09/30/16 05:50 BUN 22 mg/dL (7-18) H 09/30/16 05:50 Creatinine 0.7 mg/dL (0.55-1.02) D 09/30/16 05:50 Creat Clearance w eGFR > 60 (>60) 09/30/16 05:50 Random Glucose 136 mg/dL (74-106) H D 09/30/16 05:50 Calcium 8.4 mg/dL (8.5-10.1) L 09/30/16 05:50 Total Bilirubin 0.3 mg/dL (0.2-1.0) 09/30/16 05:50 AST 45 U/L (15-37) H D 09/30/16 05:50 ALT 99 U/L (12-78) H 09/30/16 05:50 Alkaline Phosphatase 164 U/L (45-117) H 09/30/16 05:50 Total Protein 6.3 g/dl (6.4-8.2) L 09/30/16 05:50 Albumin 3.0 g/dl (3.4-5.0) L 09/30/16 05:50 Microbiology 09/25/16 18:15 Blood - Peripheral Venous Blood Culture - Preliminary NO GROWTH OBTAINED AFTER 96 HOURS, INCUBATION TO CONTINUE FOR 1 DAYS. 09/25/16 18:15 Blood - Peripheral Venous Blood Culture - Preliminary NO GROWTH OBTAINED AFTER 96 HOURS, INCUBATION TO CONTINUE FOR 1 DAYS. 09/27/16 03:00 Sputum - Endotracheal Suction W/O Vent Gram Stain - Final 09/27/16 03:00 Sputum - Endotracheal Suction W/O Vent Sputum Culture - Final NORMAL RESPIRATORY RONI 09/27/16 16:30 Urine - Urine - Catheterized Urine Culture - Final NO GROWTH OBTAINED 09/27/16 16:30 Urine For Antigen Detection Legionella Antigen - Final 09/27/16 16:30 Urine For Antigen Detection Streptococcus pneumoniae Antigen (M - Final 09/25/16 18:37 Nasopharyngeal Swab Respiratory Virus Panel - Preliminary 09/25/16 18:37 Nasopharyngeal Swab Influenza Types A,B Antigen (RO) - Final 09/25/16 18:37 Nasopharyngeal Swab - Final Assessment: This is a 25 year old female with PMHx of cerebral palsy, severe MR , seizure disorder, PEG, spastic quadriparesis, GERD, scoliosis, who presented to the ED with tachypnea and was found to have pneumonia. Plan: 1) ID: Sepsis 2/2 presumptive aspiration pneumonia - Chest X-ray 09/29 wtih congestive changes, underlying infiltrate can't be excluded - UA negative - Urine legionella Ag negative - WBC wnl - Blood cultures NGTD - Sputum culture negative - Continue Vancomycin and Zosyn - Appreciate ID consult 2) Pulmonary: Acute hypoxic respiratory failure 2/2 pneumonia - Improving - Supplemental O2, keep SpO2 >90% - Duonebs - Solumedrol taper - Aspiration precautions - Chest PT - Suctioning prn - Appreciate pulmonary consult 3) Neuro: Seizure disorder - Continue Keppra - Continue Topamax - Continue Trileptal Mental retardation 4) GI: Transaminitis - Trending down - Continue to monitor 5) F/E/N: - Monitor electrolytes - Tube feeds 6) Prophylaxis: - Heparin 5,000u sq bid - Functional quadraplegia 7) Dispo: - Requires continued inpatient care CODE STATUS: FULL CODE Visit type - Emergency Visit Emergency Visit: Yes ED Registration Date: 09/25/16 Care time: The patient presented to the Emergency Department on the above date and was hospitalized for further evaluation of their emergent condition. - New Patient This patient is new to me today: No - Critical Care Critical Care patient: No
--- NOTE | 2016-09-30 16:34 | PN ---
Progress Note (short form) - Note Progress Note: Awake,some congested cough is noted. NAD on NC O2. Intake & Output 09/27/16 09/28/16 09/29/16 09/30/16 23:59 23:59 23:59 23:59 Intake Total 410 530 515 100 Balance 410 530 515 100 Last Vital Signs Temp Pulse Resp BP Pulse Ox 98.1 F 76 18 115/70 97 09/30/16 09:00 09/30/16 09:00 09/30/16 09:00 09/30/16 09:00 09/30/16 09:00 Active Medications Albuterol/Ipratropium (Duoneb -) 1 amp NEB QIDR [facility] Last Admin: 09/30/16 12:14 Dose: 1 amp Baclofen (Lioresal -) 5 mg GT TID [facility] Last Admin: 09/30/16 15:16 Dose: 5 mg Vancomycin HCl (Vancomycin (Pre-Docked)) 250 mls @ 200 mls/hr IVPB Q24H [facility] Piperacillin Sod/Tazobactam Sod (Zosyn 3.375gm Ivpb (Pre-Docked)) 50 mls @ 100 mls/hr IVPB Q8H-IV [facility] PRN Reason: Protocol Last Admin: 09/30/16 09:45 Dose: 100 mls/hr Lactulose (Cephulac (Oral Use)) 10 gm GT TID [facility] Last Admin: 09/30/16 15:16 Dose: Not Given Levetiracetam (Keppra Oral Solution -) 1,500 mg GT BID [facility] Last Admin: 09/30/16 09:52 Dose: 1,500 mg Methylprednisolone Sodium Succinate (Solu-Medrol -) 40 mg IVPB Q6H-IV [facility] Last Admin: 09/30/16 15:16 Dose: 40 mg Oxcarbazepine (Trileptal) 180 mg GT DAILY [facility] Last Admin: 09/30/16 09:56 Dose: 180 mg Oxcarbazepine (Trileptal) 210 mg GT HS [facility] Last Admin: 09/29/16 22:12 Dose: 210 mg Senna (Senna Oral Solution -) 17.6 mg PO MoWeFr@1000 [facility] Last Admin: 09/29/16 10:00 Dose: 17.6 mg Topiramate 200 mg/ Topiramate (25 mg) 225 mg GT BID [facility] Last Admin: 09/30/16 09:58 Dose: 225 mg Constitutional: Yes: NAD Eyes: Yes: WNL HENT: Yes: WNL Neck: Yes: WNL Cardiovascular: Yes: Regular Rate and Rhythm, S1, S2 Respiratory: Yes: Rhonchi (bilateral rhonchi) Gastrointestinal: Yes: Normal Bowel Sounds, Soft Extremities: Yes: Shortened Edema: No Labs: Laboratory Results - last 24 hr 09/30/16 09/30/16 05:50 05:50 WBC 6.7 RBC 3.00 L Hgb 10.1 L Hct 30.3 L MCV 101.3 H MCHC 33.1 RDW 15.8 H Plt Count 143 MPV 9.1 Neutrophils % 80.5 Lymphocytes % 14.5 Monocytes % 4.8 Eosinophils % 0.1 D Basophils % 0.1 D Sodium 147 H Potassium 3.7 Chloride 112 H Carbon Dioxide 23 Anion Gap 12 BUN 22 H Creatinine 0.7 D Creat Clearance w eGFR > 60 Random Glucose 136 H D Calcium 8.4 L Total Bilirubin 0.3 AST 45 H D ALT 99 H Alkaline Phosphatase 164 H Total Protein 6.3 L Albumin 3.0 L Assessment/Plan Problem List - Problems (1) Pneumonia Code(s): J18.9 - PNEUMONIA, UNSPECIFIED ORGANISM Qualifiers: Pneumonia type: due to unspecified organism Laterality: unspecified laterality Lung location: unspecified part of lung Qualified Code(s): J18.9 - Pneumonia, unspecified organism (2) Acute respiratory failure with hypoxia Code(s): J96.01 - ACUTE RESPIRATORY FAILURE WITH HYPOXIA (3) Elevated liver enzymes Code(s): R74.8 - ABNORMAL LEVELS OF OTHER SERUM ENZYMES (4) Cerebral palsy Code(s): G80.9 - CEREBRAL PALSY, UNSPECIFIED (5) Functional quadriplegia Code(s): R53.2 - FUNCTIONAL QUADRIPLEGIA (6) Mental retardation Code(s): F79 - UNSPECIFIED INTELLECTUAL DISABILITIES (7) Muscle spasm Code(s): M62.838 - OTHER MUSCLE SPASM (8) Seizure disorder Code(s): G40.909 - EPILEPSY, UNSP, NOT INTRACTABLE, WITHOUT STATUS EPILEPTICUS Assessment/Plan ABX per ID Aspirations precautions Inhaled bronchodilators If stable, can taper Medrol tomorrow O2 as needed Dr Ruffin Problem List - Problems (1) Pneumonia Code(s): J18.9 - PNEUMONIA, UNSPECIFIED ORGANISM Qualifiers: Pneumonia type: due to unspecified organism Laterality: unspecified laterality Lung location: unspecified part of lung Qualified Code(s): J18.9 - Pneumonia, unspecified organism (2) Acute respiratory failure with hypoxia Code(s): J96.01 - ACUTE RESPIRATORY FAILURE WITH HYPOXIA (3) Elevated liver enzymes Code(s): R74.8 - ABNORMAL LEVELS OF OTHER SERUM ENZYMES (4) Cerebral palsy Code(s): G80.9 - CEREBRAL PALSY, UNSPECIFIED (5) Functional quadriplegia Code(s): R53.2 - FUNCTIONAL QUADRIPLEGIA (6) Mental retardation Code(s): F79 - UNSPECIFIED INTELLECTUAL DISABILITIES (7) Muscle spasm Code(s): M62.838 - OTHER MUSCLE SPASM (8) Seizure disorder Code(s): G40.909 - EPILEPSY, UNSP, NOT INTRACTABLE, WITHOUT STATUS EPILEPTICUS
--- NOTE | 2016-09-30 16:51 | PN ---
Progress Note, Physician History of Present Illness: patient stable looks much calmer breathing better secretions less - Current Medication List Current Medications: Active Medications Albuterol/Ipratropium (Duoneb -) 1 amp NEB QIDR [facility] Last Admin: 09/30/16 12:14 Dose: 1 amp Baclofen (Lioresal -) 5 mg GT TID [facility] Last Admin: 09/30/16 15:16 Dose: 5 mg Vancomycin HCl (Vancomycin (Pre-Docked)) 250 mls @ 200 mls/hr IVPB Q24H [facility] Piperacillin Sod/Tazobactam Sod (Zosyn 3.375gm Ivpb (Pre-Docked)) 50 mls @ 100 mls/hr IVPB Q8H-IV [facility] PRN Reason: Protocol Last Admin: 09/30/16 09:45 Dose: 100 mls/hr Lactulose (Cephulac (Oral Use)) 10 gm GT TID [facility] Last Admin: 09/30/16 15:16 Dose: Not Given Levetiracetam (Keppra Oral Solution -) 1,500 mg GT BID [facility] Last Admin: 09/30/16 09:52 Dose: 1,500 mg Methylprednisolone Sodium Succinate (Solu-Medrol -) 40 mg IVPB Q6H-IV [facility] Last Admin: 09/30/16 15:16 Dose: 40 mg Oxcarbazepine (Trileptal) 180 mg GT DAILY [facility] Last Admin: 09/30/16 09:56 Dose: 180 mg Oxcarbazepine (Trileptal) 210 mg GT HS [facility] Last Admin: 09/29/16 22:12 Dose: 210 mg Senna (Senna Oral Solution -) 17.6 mg PO MoWeFr@1000 [facility] Last Admin: 09/29/16 10:00 Dose: 17.6 mg Topiramate 200 mg/ Topiramate (25 mg) 225 mg GT BID [facility] Last Admin: 09/30/16 09:58 Dose: 225 mg - Objective Vital Signs: Vital Signs Temperature 98.1 F 09/30/16 09:00 Pulse Rate 76 09/30/16 09:00 Respiratory Rate 18 09/30/16 09:00 Blood Pressure 115/70 09/30/16 09:00 O2 Sat by Pulse Oximetry (%) 97 09/30/16 09:00 Constitutional: Yes: No Distress, Calm Cardiovascular: Yes: Regular Rate and Rhythm Respiratory: Yes: Regular, Rhonchi Gastrointestinal: Yes: Normal Bowel Sounds, Soft, Other (peg in place) Musculoskeletal: Yes: Other Extremities: Yes: Other Integumentary: Yes: WNL Neurological: Yes: Alert, Other Labs: CBC, BMP 09/30/16 05:50 09/30/16 05:50 Assessment/Plan Problem List - Problems (1) Pneumonia Code(s): J18.9 - PNEUMONIA, UNSPECIFIED ORGANISM Qualifiers: Pneumonia type: due to unspecified organism Laterality: unspecified laterality Lung location: unspecified part of lung Qualified Code(s): J18.9 - Pneumonia, unspecified organism (2) Acute respiratory failure with hypoxia Code(s): J96.01 - ACUTE RESPIRATORY FAILURE WITH HYPOXIA (3) Elevated liver enzymes Code(s): R74.8 - ABNORMAL LEVELS OF OTHER SERUM ENZYMES (4) Cerebral palsy Code(s): G80.9 - CEREBRAL PALSY, UNSPECIFIED (5) Functional quadriplegia Code(s): R53.2 - FUNCTIONAL QUADRIPLEGIA (6) Mental retardation Code(s): F79 - UNSPECIFIED INTELLECTUAL DISABILITIES (7) Muscle spasm Code(s): M62.838 - OTHER MUSCLE SPASM (8) Seizure disorder Code(s): G40.909 - EPILEPSY, UNSP, NOT INTRACTABLE, WITHOUT STATUS EPILEPTICUS plan conitnue abx continue resp supprt rest as per pulmonary monitor closely for aspiration will evaluate tomorrow and decide further plan
[2016-10-01] MEDS: PIPERACILLIN/TAZOB 3.375 GM 50 ML IVPB SCH (01:58)
[2016-10-01] MEDS: methylPREDNISolone NA SUCC 125 MG/2 ML VIAL IVPB SCH ×4 (02:13→22:36)
[2016-10-01] MEDS: BACLOFEN 10 MG TABLET (FP) GT SCH ×3 (05:52→22:37)
[2016-10-01] MEDS: LACTULOSE 20 GM/30 ML UDC (FOR ORAL USE ONLY) GT SCH ×3 (05:52→22:36)
[2016-10-01] MEDS: ALBUTEROL SO4 2.5/IPRATROPIUM 0.5 INH SOL 3 ML VIAL.NEB. NEB SCH ×3 (06:59→17:05)
[2016-10-01 08:43] LABS: BASOPHIL 0.7 % (0-2.0); MCH 33.6 pg (25.7-33.7); MCHC 32.9 g/dl (32.0-36.0); MEAN CELL VOLUME 102.1 fl (80-96); MEAN PLT VOLUME 9.2 fl (7.5-11.1); NEUTROPHILS 61.9 % (42.8-82.8); PLATELET COUNT 161 K/MM3 (134-434); RDW 15.5 % (11.6-15.6); WHITE BLOOD COUNT 6.3 K/mm3 (4.0-10.0)
[2016-10-01 09:03] LABS: ANION GAP 11 (8-16); CALCIUM 8.7 mg/dL (8.5-10.1); CO2 25 mmol/L (21-32); GLUCOSE,RANDOM 104 mg/dL (74-106)
[2016-10-01 09:07] LABS: ALK PHOS 176 U/L (45-117); BILIRUBIN,TOTAL 0.3 mg/dL (0.2-1.0); COCKROFT - GAULT 135.5155; CREATININE 0.5 mg/dL (0.55-1.02); SGOT/AST 32 U/L (15-37); SGPT/ALT 97 U/L (12-78); TOT PROT 6.4 g/dl (6.4-8.2)
[2016-10-01] MEDS ORDERED: PT OWN MED DRAWER 7, Y5N ONE (09:10)
[2016-10-01] MEDS: SENNOSIDES 8.8 MG/5 ML BULK BOTTLE PO SCH (09:21)
[2016-10-01] MEDS: levETIRAcetam 500 MG/5 ML ORAL SOLUTION (UNIT-DOSE CUPS) GT SCH ×2 (09:22→22:37)
[2016-10-01] MEDS: TOPIRAMATE GT SCH ×2 (09:25→22:37)
[2016-10-01] MEDS: OXcarbazepine 300 MG/5 ML 250 ML BULK BOTTLE GT SCH ×2 (09:26→22:37)
[2016-10-01] MEDS ORDERED: VANCOMYCIN 1 GRAM (PRE-DOCKED) 250 ML IVPB SCH (10:00)
[2016-10-01] MEDS ORDERED: PIPERACILLIN/TAZOB 3.375 GM 50 ML IVPB SCH (10:00)
--- NOTE | 2016-10-01 12:44 | PN ---
Progress Note, Physician History of Present Illness: pulmonary comfortable,alert,nad - Current Medication List Current Medications: Active Medications Albuterol/Ipratropium (Duoneb -) 1 amp NEB QIDR [facility] Last Admin: 10/01/16 11:34 Dose: 1 amp Baclofen (Lioresal -) 5 mg GT TID [facility] Vancomycin HCl (Vancomycin (Pre-Docked)) 250 mls @ 200 mls/hr IVPB Q24H [facility] Piperacillin Sod/Tazobactam Sod (Zosyn 3.375gm Ivpb (Pre-Docked)) 50 mls @ 100 mls/hr IVPB Q8H-IV [facility] PRN Reason: Protocol Last Admin: 10/01/16 09:36 Dose: 100 mls/hr Lactulose (Cephulac (Oral Use)) 10 gm GT TID [facility] Levetiracetam (Keppra Oral Solution -) 1,500 mg GT BID [facility] Last Admin: 10/01/16 09:22 Dose: 1,500 mg Methylprednisolone Sodium Succinate (Solu-Medrol -) 40 mg IVPB Q6H-IV [facility] Last Admin: 10/01/16 09:16 Dose: 40 mg Oxcarbazepine (Trileptal) 180 mg GT DAILY [facility] Last Admin: 10/01/16 09:26 Dose: 180 mg Oxcarbazepine (Trileptal) 210 mg GT HS [facility] Senna (Senna Oral Solution -) 17.6 mg PO MoWeFr@1000 [facility] Last Admin: 10/01/16 09:21 Dose: 17.6 mg Topiramate 200 mg/ Topiramate (25 mg) 225 mg GT BID [facility] Last Admin: 10/01/16 09:25 Dose: 225 mg - Objective Vital Signs: Vital Signs Temperature 98.2 F 10/01/16 10:00 Pulse Rate 52 L 10/01/16 11:33 Respiratory Rate 20 10/01/16 10:00 Blood Pressure 135/69 10/01/16 10:00 O2 Sat by Pulse Oximetry (%) 97 10/01/16 11:33 Constitutional: Yes: Calm, Thin Eyes: Yes: WNL HENT: Yes: WNL Neck: Yes: WNL Cardiovascular: Yes: Regular Rate and Rhythm, S1, S2 Respiratory: Yes: Rhonchi (less rhonchi bilaterally) Extremities: Yes: WNL Edema: No Labs: CBC, BMP 10/01/16 06:15 10/01/16 06:15 Assessment/Plan Problem List - Problems (1) Pneumonia Code(s): J18.9 - PNEUMONIA, UNSPECIFIED ORGANISM Qualifiers: Pneumonia type: due to unspecified organism Laterality: unspecified laterality Lung location: unspecified part of lung Qualified Code(s): J18.9 - Pneumonia, unspecified organism (2) Acute respiratory failure with hypoxia Code(s): J96.01 - ACUTE RESPIRATORY FAILURE WITH HYPOXIA (3) Elevated liver enzymes Code(s): R74.8 - ABNORMAL LEVELS OF OTHER SERUM ENZYMES (4) Cerebral palsy Code(s): G80.9 - CEREBRAL PALSY, UNSPECIFIED (5) Functional quadriplegia Code(s): R53.2 - FUNCTIONAL QUADRIPLEGIA (6) Mental retardation Code(s): F79 - UNSPECIFIED INTELLECTUAL DISABILITIES (7) Muscle spasm Code(s): M62.838 - OTHER MUSCLE SPASM (8) Seizure disorder Code(s): G40.909 - EPILEPSY, UNSP, NOT INTRACTABLE, WITHOUT STATUS EPILEPTICUS Assessment/Plan ABX per ID Aspirations precautions Inhaled bronchodilators O2 Steroid taper DR MATHEWS
--- NOTE | 2016-10-01 14:26 | PN ---
Progress Note, Physician History of Present Illness: patient looking much comfortable respirations much better patient calmer secretions minimal - Current Medication List Current Medications: Active Medications Albuterol/Ipratropium (Duoneb -) 1 amp NEB QIDR [facility] Last Admin: 10/01/16 11:34 Dose: 1 amp Baclofen (Lioresal -) 5 mg GT TID [facility] Piperacillin Sod/Tazobactam Sod (Zosyn 3.375gm Ivpb (Pre-Docked)) 50 mls @ 100 mls/hr IVPB Q8H-IV [facility] PRN Reason: Protocol Last Admin: 10/01/16 09:36 Dose: 100 mls/hr Lactulose (Cephulac (Oral Use)) 10 gm GT TID [facility] Levetiracetam (Keppra Oral Solution -) 1,500 mg GT BID [facility] Last Admin: 10/01/16 09:22 Dose: 1,500 mg Methylprednisolone Sodium Succinate (Solu-Medrol -) 40 mg IVPB Q6H-IV [facility] Last Admin: 10/01/16 09:16 Dose: 40 mg Oxcarbazepine (Trileptal) 180 mg GT DAILY [facility] Last Admin: 10/01/16 09:26 Dose: 180 mg Oxcarbazepine (Trileptal) 210 mg GT HS [facility] Senna (Senna Oral Solution -) 17.6 mg PO MoWeFr@1000 [facility] Last Admin: 10/01/16 09:21 Dose: 17.6 mg Topiramate 200 mg/ Topiramate (25 mg) 225 mg GT BID [facility] Last Admin: 10/01/16 09:25 Dose: 225 mg - Objective Vital Signs: Vital Signs Temperature 98.2 F 10/01/16 10:00 Pulse Rate 52 L 10/01/16 11:33 Respiratory Rate 20 10/01/16 10:00 Blood Pressure 135/69 10/01/16 10:00 O2 Sat by Pulse Oximetry (%) 97 10/01/16 11:33 Constitutional: Yes: No Distress, Calm Cardiovascular: Yes: Regular Rate and Rhythm Respiratory: Yes: Regular, Rhonchi Gastrointestinal: Yes: Normal Bowel Sounds, Soft, Other (peg i place) Musculoskeletal: Yes: Other Extremities: Yes: Other Neurological: Yes: Alert, Other Psychiatric: Yes: Alert, Other Labs: CBC, BMP 10/01/16 06:15 10/01/16 06:15 Assessment/Plan Problem List - Problems (1) Pneumonia Code(s): J18.9 - PNEUMONIA, UNSPECIFIED ORGANISM Qualifiers: Pneumonia type: due to unspecified organism Laterality: unspecified laterality Lung location: unspecified part of lung Qualified Code(s): J18.9 - Pneumonia, unspecified organism (2) Acute respiratory failure with hypoxia Code(s): J96.01 - ACUTE RESPIRATORY FAILURE WITH HYPOXIA (3) Elevated liver enzymes Code(s): R74.8 - ABNORMAL LEVELS OF OTHER SERUM ENZYMES (4) Cerebral palsy Code(s): G80.9 - CEREBRAL PALSY, UNSPECIFIED (5) Functional quadriplegia Code(s): R53.2 - FUNCTIONAL QUADRIPLEGIA (6) Mental retardation Code(s): F79 - UNSPECIFIED INTELLECTUAL DISABILITIES (7) Muscle spasm Code(s): M62.838 - OTHER MUSCLE SPASM (8) Seizure disorder Code(s): G40.909 - EPILEPSY, UNSP, NOT INTRACTABLE, WITHOUT STATUS EPILEPTICUS plan continue resp supprt rest as per pulmonary monitor closely for aspiration will stop abx
--- NOTE | 2016-10-01 15:09 | PN ---
Progress Note (short form) - Note Progress Note: Subjective: The patient was seen and examined at the bedside, she is non-verbal at baseline. Abx discontinued today Continue steroid taper Current Medications Generic Name Dose Route Start Last Admin Trade Name Darren PRN Reason Stop Dose Admin Albuterol/Ipratropium 1 amp 10/01/16 12:00 10/01/16 11:34 Duoneb - NEB 1 amp QIDR [facility] Administration Baclofen 5 mg 10/01/16 14:00 10/01/16 14:25 Lioresal - GT 5 mg TID [facility] Administration Lactulose 10 gm 10/01/16 14:00 10/01/16 14:25 Cephulac (Oral Use) GT 10 gm TID [facility] Administration Levetiracetam 1,500 mg 10/01/16 10:00 10/01/16 09:22 Keppra Oral Solution - GT 1,500 mg BID [facility] Administration Methylprednisolone Sodium Succinate 40 mg 10/01/16 09:00 10/01/16 14:25 Solu-Medrol - IVPB 40 mg Q6H-IV [facility] Administration Oxcarbazepine 180 mg 10/01/16 10:00 10/01/16 09:26 Trileptal GT 180 mg DAILY [facility] Administration Oxcarbazepine 210 mg 10/01/16 22:00 Trileptal GT HS [facility] Senna 17.6 mg 10/01/16 10:00 10/01/16 09:21 Senna Oral Solution - PO 17.6 mg MoWeFr@1000 [facility] Administration Topiramate 200 mg/ Topiramate 225 mg 10/01/16 10:00 10/01/16 09:25 25 mg GT 225 mg BID [facility] Administration Objective: Vital Signs Period Temp Pulse Resp BP Sys/Herman Pulse Ox Last 24 Hr 98.1 F-98.4 F 51-60 20-20 101-136/52-71 97-97 Physical Exam: General: Non-verbal, tachypnic Lungs: Upper airway grunting noted, no wheezing on exam Heart: RRR, S1S2 Abd: Soft, non-tender, non-distended. Normoactive bowel sounds Ext: Warm, well-perfused. Contracted. Petechial rash on lower extremities and upper extremities (spoke to SUZAN Puri at [facility] who states patient has rash at baseline) Neuro: unable to assess, patient non-verbal, does not follow commands CBCD WBC 6.3 K/mm3 (4.0-10.0) 10/01/16 06:15 RBC 3.20 M/mm3 (3.60-5.2) L 10/01/16 06:15 Hgb 10.8 GM/dL (10.7-15.3) 10/01/16 06:15 Hct 32.7 % (32.4-45.2) 10/01/16 06:15 MCV 102.1 fl (80-96) H 10/01/16 06:15 MCHC 32.9 g/dl (32.0-36.0) 10/01/16 06:15 RDW 15.5 % (11.6-15.6) 10/01/16 06:15 Plt Count 161 K/MM3 (134-434) 10/01/16 06:15 MPV 9.2 fl (7.5-11.1) 10/01/16 06:15 CMP Sodium 149 mmol/L (136-145) H 10/01/16 06:15 Potassium 3.6 mmol/L (3.5-5.1) 10/01/16 06:15 Chloride 113 mmol/L (98-107) H 10/01/16 06:15 Carbon Dioxide 25 mmol/L (21-32) 10/01/16 06:15 Anion Gap 11 (8-16) 10/01/16 06:15 BUN 20 mg/dL (7-18) H 10/01/16 06:15 Creatinine 0.5 mg/dL (0.55-1.02) L D 10/01/16 06:15 Creat Clearance w eGFR > 60 (>60) 10/01/16 06:15 Random Glucose 104 mg/dL (74-106) D 10/01/16 06:15 Calcium 8.7 mg/dL (8.5-10.1) 10/01/16 06:15 Total Bilirubin 0.3 mg/dL (0.2-1.0) 10/01/16 06:15 AST 32 U/L (15-37) D 10/01/16 06:15 ALT 97 U/L (12-78) H 10/01/16 06:15 Alkaline Phosphatase 176 U/L (45-117) H 10/01/16 06:15 Total Protein 6.4 g/dl (6.4-8.2) 10/01/16 06:15 Albumin 3.0 g/dl (3.4-5.0) L 10/01/16 06:15 Microbiology 09/25/16 18:37 Nasopharyngeal Swab Respiratory Virus Panel - Preliminary 09/25/16 18:15 Blood - Peripheral Venous Blood Culture - Final NO GROWTH AFTER 5 DAYS INCUBATION 09/25/16 18:15 Blood - Peripheral Venous Blood Culture - Final NO GROWTH AFTER 5 DAYS INCUBATION 09/27/16 03:00 Sputum - Endotracheal Suction W/O Vent Gram Stain - Final 09/27/16 03:00 Sputum - Endotracheal Suction W/O Vent Sputum Culture - Final NORMAL RESPIRATORY RONI 09/27/16 16:30 Urine - Urine - Catheterized Urine Culture - Final NO GROWTH OBTAINED 09/27/16 16:30 Urine For Antigen Detection Legionella Antigen - Final 09/27/16 16:30 Urine For Antigen Detection Streptococcus pneumoniae Antigen (M - Final 09/25/16 18:37 Nasopharyngeal Swab Influenza Types A,B Antigen (RO) - Final 09/25/16 18:37 Nasopharyngeal Swab - Final Assessment: This is a 25 year old female with PMHx of cerebral palsy, severe MR , seizure disorder, PEG, spastic quadriparesis, GERD, scoliosis, who presented to the ED with tachypnea and was found to have pneumonia. Plan: 1) ID: Sepsis 2/2 presumptive aspiration pneumonia - Chest X-ray 09/29 wtih congestive changes, underlying infiltrate can't be excluded - UA negative - Urine legionella Ag negative - WBC wnl - Blood cultures NGTD - Sputum culture negative - Discontinued Vancomycin and Zosyn on 10/01 - Appreciate ID consult 2) Pulmonary: Acute hypoxic respiratory failure 2/2 presumptive pneumonia - Improving - Supplemental O2, keep SpO2 >90% - Duonebs - Solumedrol taper - Aspiration precautions - Chest PT - Suctioning prn - Appreciate pulmonary consult 3) Neuro: Seizure disorder - Continue Keppra - Continue Topamax - Continue Trileptal Mental retardation 4) GI: Transaminitis - Trending down - Continue to monitor 5) F/E/N: - Monitor electrolytes - Tube feeds 6) Prophylaxis: - Heparin 5,000u sq bid - Functional quadraplegia 7) Dispo: - Requires continued inpatient care CODE STATUS: FULL CODE Visit type - Emergency Visit Emergency Visit: Yes ED Registration Date: 09/25/16 Care time: The patient presented to the Emergency Department on the above date and was hospitalized for further evaluation of their emergent condition. - New Patient This patient is new to me today: No - Critical Care Critical Care patient: No
[2016-10-02] MEDS: ALBUTEROL SO4 2.5/IPRATROPIUM 0.5 INH SOL 3 ML VIAL.NEB. NEB SCH ×4 (00:29→18:11)
[2016-10-02] MEDS: methylPREDNISolone NA SUCC 125 MG/2 ML VIAL IVPB SCH ×2 (03:00→09:49)
[2016-10-02] MEDS: LACTULOSE 20 GM/30 ML UDC (FOR ORAL USE ONLY) GT SCH ×3 (05:47→21:49)
[2016-10-02] MEDS: BACLOFEN 10 MG TABLET (FP) GT SCH ×3 (05:48→21:51)
[2016-10-02] MEDS: VANCOMYCIN 1 GRAM (PRE-DOCKED) 250 ML IVPB SCH (08:13)
[2016-10-02 08:46] LABS: ALBUMIN 2.8 g/dl (3.4-5.0); ALK PHOS 167 U/L (45-117); ANION GAP 10 (8-16); BILIRUBIN,TOTAL 0.2 mg/dL (0.2-1.0); CALCIUM 8.5 mg/dL (8.5-10.1); CO2 26 mmol/L (21-32); COCKROFT - GAULT 169.3965; CREATININE 0.4 mg/dL (0.55-1.02); GLUCOSE,RANDOM 155 mg/dL (74-106); SGOT/AST 16 U/L (15-37); SGPT/ALT 79 U/L (12-78); TOT PROT 6.2 g/dl (6.4-8.2)
--- NOTE | 2016-10-02 09:38 | PN ---
Physical Exam: SUBJECTIVE: Patient seen and examined. She is awake, appears comfortable, non verbal at baseline. Events: - Vanco, Zosyn discontinued yesterday OBJECTIVE: Vital Signs Period Temp Pulse Resp BP Sys/Herman Pulse Ox Last 24 Hr 97.7 F-99.3 F 52-87 16-20 125-148/69-76 97-97 PE Neuro: awake, non verbal, eye tracking, smiles Pulm: scattered rhonchi, moving air, + NC CV: s1 s2 rrr no mrg Abd: s nt nd +peg tube cdi Ext: contracted, bilateral lower ext petechial rash Laboratory Results - last 24 hr 10/02/16 06:20 Sodium 145 Potassium 4.1 Chloride 109 H Carbon Dioxide 26 Anion Gap 10 BUN 17 Creatinine 0.4 L Creat Clearance w eGFR > 60 Random Glucose 155 H D Calcium 8.5 Total Bilirubin 0.2 D AST 16 D ALT 79 H Alkaline Phosphatase 167 H Total Protein 6.2 L Albumin 2.8 L Active Medications Generic Name Dose Route Start Last Admin Trade Name Darren PRN Reason Stop Dose Admin Albuterol/Ipratropium 1 amp 10/01/16 12:00 10/02/16 07:25 Duoneb - NEB 1 amp QIDR [facility] Administration Baclofen 5 mg 10/01/16 14:00 10/02/16 05:48 Lioresal - GT 5 mg TID [facility] Administration Lactulose 10 gm 10/01/16 14:00 10/02/16 05:47 Cephulac (Oral Use) GT 10 gm TID [facility] Administration Levetiracetam 1,500 mg 10/01/16 10:00 10/01/16 22:37 Keppra Oral Solution - GT 1,500 mg BID [facility] Administration Methylprednisolone Sodium Succinate 40 mg 10/02/16 10:00 Solu-Medrol - IVPB Q8H-IV [facility] Oxcarbazepine 180 mg 10/01/16 10:00 10/01/16 09:26 Trileptal GT 180 mg DAILY [facility] Administration Oxcarbazepine 210 mg 10/01/16 22:00 10/01/16 22:37 Trileptal GT 210 mg HS [facility] Administration Senna 17.6 mg 10/01/16 10:00 10/01/16 09:21 Senna Oral Solution - PO 17.6 mg MoWeFr@1000 [facility] Administration Topiramate 200 mg/ Topiramate 225 mg 10/01/16 10:00 10/01/16 22:37 25 mg GT 225 mg BID [facility] Administration Microbiology 09/25/16 18:37 Nasopharyngeal Swab Respiratory Virus Panel - Preliminary 09/25/16 18:15 Blood - Peripheral Venous Blood Culture - Final NO GROWTH AFTER 5 DAYS INCUBATION 09/25/16 18:15 Blood - Peripheral Venous Blood Culture - Final NO GROWTH AFTER 5 DAYS INCUBATION 09/27/16 03:00 Sputum - Endotracheal Suction W/O Vent Gram Stain - Final 09/27/16 03:00 Sputum - Endotracheal Suction W/O Vent Sputum Culture - Final NORMAL RESPIRATORY RONI 09/27/16 16:30 Urine - Urine - Catheterized Urine Culture - Final NO GROWTH OBTAINED 09/27/16 16:30 Urine For Antigen Detection Legionella Antigen - Final 09/27/16 16:30 Urine For Antigen Detection Streptococcus pneumoniae Antigen (M - Final 09/25/16 18:37 Nasopharyngeal Swab Influenza Types A,B Antigen (RO) - Final 09/25/16 18:37 Nasopharyngeal Swab - Final Assessment: 25 year old female with PMHx of cerebral palsy, severe MR, seizure disorder, PEG, spastic quadriparesis, GERD, scoliosis admitted with pneumonia. Plan: 1. Sepsis 2/2 presumptive aspiration pneumonia - Culture date no growth - WBC stable, no fevers overnight - Continue observe off abx day 2 2. Acute hypoxic respiratory failure 2/2 presumptive pneumonia - Taper medrol 40mg q8h - Duonebs QID - Chest PT 3. Seizure disorder - Continue Keppra - Continue Topamax - Continue Trileptal 3. Transaminitis - Trending down - Continue Tube feeds 4. Functional quadraplegia - Requires total care Visit type - Emergency Visit Emergency Visit: Yes ED Registration Date: 09/25/16 Care time: The patient presented to the Emergency Department on the above date and was hospitalized for further evaluation of their emergent condition. - New Patient This patient is new to me today: Yes Date on this admission: 10/02/16 - Critical Care Critical Care patient: No
[2016-10-02] MEDS ORDERED: PT OWN MED DRAWER 7, Y5N ONE ×2 (11:05→21:15)
[2016-10-02] MEDS: levETIRAcetam 500 MG/5 ML ORAL SOLUTION (UNIT-DOSE CUPS) GT SCH ×2 (11:19→21:50)
[2016-10-02] MEDS: TOPIRAMATE GT SCH ×2 (11:19→21:52)
[2016-10-02] MEDS: methylPREDNISolone NA SUCC 40 MG/1 ML VIAL IVPB SCH ×2 (11:20→18:00)
[2016-10-02] MEDS: OXcarbazepine 300 MG/5 ML 250 ML BULK BOTTLE GT SCH ×2 (11:20→21:52)
--- NOTE | 2016-10-02 12:43 | PN ---
Progress Note, Physician History of Present Illness: patient stable no new issues still with cough breathing calmly - Current Medication List Current Medications: Active Medications Albuterol/Ipratropium (Duoneb -) 1 amp NEB QIDR [facility] Last Admin: 10/02/16 12:11 Dose: 1 amp Baclofen (Lioresal -) 5 mg GT TID [facility] Last Admin: 10/02/16 05:48 Dose: 5 mg Lactulose (Cephulac (Oral Use)) 10 gm GT TID [facility] Last Admin: 10/02/16 05:47 Dose: 10 gm Levetiracetam (Keppra Oral Solution -) 1,500 mg GT BID [facility] Last Admin: 10/02/16 11:19 Dose: 1,500 mg Methylprednisolone Sodium Succinate (Solu-Medrol -) 40 mg IVPB Q8H-IV [facility] Last Admin: 10/02/16 11:20 Dose: 40 mg Oxcarbazepine (Trileptal) 180 mg GT DAILY [facility] Last Admin: 10/02/16 11:20 Dose: 180 mg Oxcarbazepine (Trileptal) 210 mg GT HS [facility] Last Admin: 10/01/16 22:37 Dose: 210 mg Senna (Senna Oral Solution -) 17.6 mg PO MoWeFr@1000 [facility] Last Admin: 10/01/16 09:21 Dose: 17.6 mg Topiramate 200 mg/ Topiramate (25 mg) 225 mg GT BID [facility] Last Admin: 10/02/16 11:19 Dose: 225 mg - Objective Vital Signs: Vital Signs Temperature 99.3 F 10/02/16 06:00 Pulse Rate 87 10/02/16 06:00 Respiratory Rate 20 10/02/16 06:00 Blood Pressure 125/76 10/02/16 06:00 O2 Sat by Pulse Oximetry (%) 97 10/01/16 21:00 Constitutional: Yes: No Distress, Calm Cardiovascular: Yes: Regular Rate and Rhythm Respiratory: Yes: Regular, CTA Bilaterally Gastrointestinal: Yes: Normal Bowel Sounds, Soft, Other (peg in place) Musculoskeletal: Yes: Other Extremities: Yes: Other Neurological: Yes: Alert, Oriented Psychiatric: Yes: Alert Labs: CBC, BMP 10/01/16 06:15 10/02/16 06:20 Assessment/Plan Problem List - Problems (1) Pneumonia Code(s): J18.9 - PNEUMONIA, UNSPECIFIED ORGANISM Qualifiers: Pneumonia type: due to unspecified organism Laterality: unspecified laterality Lung location: unspecified part of lung Qualified Code(s): J18.9 - Pneumonia, unspecified organism (2) Acute respiratory failure with hypoxia Code(s): J96.01 - ACUTE RESPIRATORY FAILURE WITH HYPOXIA (3) Elevated liver enzymes Code(s): R74.8 - ABNORMAL LEVELS OF OTHER SERUM ENZYMES (4) Cerebral palsy Code(s): G80.9 - CEREBRAL PALSY, UNSPECIFIED (5) Functional quadriplegia Code(s): R53.2 - FUNCTIONAL QUADRIPLEGIA (6) Mental retardation Code(s): F79 - UNSPECIFIED INTELLECTUAL DISABILITIES (7) Muscle spasm Code(s): M62.838 - OTHER MUSCLE SPASM (8) Seizure disorder Code(s): G40.909 - EPILEPSY, UNSP, NOT INTRACTABLE, WITHOUT STATUS EPILEPTICUS plan continue resp supprt rest as per pulmonary monitor closely for aspiration stable off of abx
--- NOTE | 2016-10-02 13:28 | PN ---
Progress Note (short form) - Note Progress Note: PULMONARY LOW GRADE TEMP ANICTERIC/PALE RHONCHI B/L ANTERIOR S1S2 BS+ SOFT SCD'S NO EDEMA LABS/MEDS/NOTES/IMAGING/MICRO REVIEWED (1) Pneumonia Code(s): J18.9 - PNEUMONIA, UNSPECIFIED ORGANISM Qualifiers: Pneumonia type: due to unspecified organism Laterality: unspecified laterality Lung location: unspecified part of lung Qualified Code(s): J18.9 - Pneumonia, unspecified organism (2) Acute respiratory failure with hypoxia Code(s): J96.01 - ACUTE RESPIRATORY FAILURE WITH HYPOXIA (3) Elevated liver enzymes Code(s): R74.8 - ABNORMAL LEVELS OF OTHER SERUM ENZYMES (4) Cerebral palsy Code(s): G80.9 - CEREBRAL PALSY, UNSPECIFIED (5) Functional quadriplegia Code(s): R53.2 - FUNCTIONAL QUADRIPLEGIA (6) Mental retardation Code(s): F79 - UNSPECIFIED INTELLECTUAL DISABILITIES (7) Muscle spasm Code(s): M62.838 - OTHER MUSCLE SPASM (8) Seizure disorder Code(s): G40.909 - EPILEPSY, UNSP, NOT INTRACTABLE, WITHOUT STATUS EPILEPTICUS ABX per ID Aspirations precautions Inhaled bronchodilators O2 Steroid taper Darnell MUNOZ MD
[2016-10-03] MEDS: ALBUTEROL SO4 2.5/IPRATROPIUM 0.5 INH SOL 3 ML VIAL.NEB. NEB SCH ×4 (00:09→18:33)
[2016-10-03] MEDS: methylPREDNISolone NA SUCC 40 MG/1 ML VIAL IVPB SCH ×3 (02:25→17:24)
[2016-10-03] MEDS: BACLOFEN 10 MG TABLET (FP) GT SCH ×3 (06:26→22:09)
[2016-10-03] MEDS: LACTULOSE 20 GM/30 ML UDC (FOR ORAL USE ONLY) GT SCH ×3 (06:27→22:12)
[2016-10-03 08:22] LABS: BASOPHIL 0.2 % (0-2.0); EOSINOPHIL 0.9 % (0-4.5); MCH 33.6 pg (25.7-33.7); MCHC 33.1 g/dl (32.0-36.0); MEAN CELL VOLUME 101.4 fl (80-96); MEAN PLT VOLUME 8.4 fl (7.5-11.1); NEUTROPHILS 40.3 % (42.8-82.8); PLATELET COUNT 242 K/MM3 (134-434); RDW 15.2 % (11.6-15.6); WHITE BLOOD COUNT 6.6 K/mm3 (4.0-10.0)
[2016-10-03 08:47] LABS: ALBUMIN 2.7 g/dl (3.4-5.0); GLUCOSE,RANDOM 107 mg/dL (74-106); SGOT/AST 10 U/L (15-37)
[2016-10-03 08:50] LABS: ALK PHOS 156 U/L (45-117); ANION GAP 8 (8-16); BILIRUBIN,TOTAL 0.3 mg/dL (0.2-1.0); CALCIUM 8.8 mg/dL (8.5-10.1); CO2 29 mmol/L (21-32); COCKROFT - GAULT 169.3965; CREATININE 0.4 mg/dL (0.55-1.02); MAGNESIUM 1.7 mg/dL (1.8-2.4); SGPT/ALT 63 U/L (12-78)
--- NOTE | 2016-10-03 09:32 | PN ---
Physical Exam: SUBJECTIVE: Patient seen and examined. She is laying flat w/o distress. No acute events overnight OBJECTIVE: Vital Signs Period Temp Pulse Resp BP Sys/Herman Pulse Ox Last 24 Hr 99.2 F-99.2 F 70-87 18-20 109-137/54-79 100 PE Neuro: awake, non verbal, eye tracking, smiles Pulm: scattered rhonchi anteriorly- improved CV: s1 s2 rrr no mrg Abd: s nt nd +peg tube cdi Ext: contracted, bilateral lower ext petechial rash Laboratory Results - last 24 hr 10/03/16 10/03/16 06:30 06:30 WBC 6.6 RBC 3.33 L Hgb 11.2 Hct 33.8 MCV 101.4 H MCHC 33.1 RDW 15.2 Plt Count 242 D MPV 8.4 Neutrophils % 40.3 L D Lymphocytes % 47.1 H D Monocytes % 11.5 H Eosinophils % 0.9 D Basophils % 0.2 Sodium 143 Potassium 3.5 Chloride 106 Carbon Dioxide 29 Anion Gap 8 BUN 17 Creatinine 0.4 L Creat Clearance w eGFR > 60 Random Glucose 107 H D Calcium 8.8 Magnesium 1.7 L D Total Bilirubin 0.3 D AST 10 L D ALT 63 D Alkaline Phosphatase 156 H Total Protein 6.0 L Albumin 2.7 L Active Medications Generic Name Dose Route Start Last Admin Trade Name Medq PRN Reason Stop Dose Admin Albuterol/Ipratropium 1 amp 10/01/16 12:00 10/03/16 06:28 Duoneb - NEB 1 amp QIDR [facility] Administration Baclofen 5 mg 10/01/16 14:00 10/03/16 06:26 Lioresal - GT 5 mg TID [facility] Administration Lactulose 10 gm 10/01/16 14:00 10/03/16 06:27 Cephulac (Oral Use) GT 10 gm TID [facility] Administration Levetiracetam 1,500 mg 10/01/16 10:00 10/02/16 21:50 Keppra Oral Solution - GT 1,500 mg BID [facility] Administration Magnesium Sulfate 1 gm 10/03/16 09:31 Magnesium Sulfate IVPB 10/03/16 09:32 ONCE ONE Methylprednisolone Sodium Succinate 40 mg 10/02/16 10:00 10/03/16 02:25 Solu-Medrol - IVPB 40 mg Q8H-IV [facility] Administration Oxcarbazepine 180 mg 10/01/16 10:00 10/02/16 11:20 Trileptal GT 180 mg DAILY [facility] Administration Oxcarbazepine 210 mg 10/01/16 22:00 10/02/16 21:52 Trileptal GT 210 mg HS [facility] Administration Senna 17.6 mg 10/01/16 10:00 10/01/16 09:21 Senna Oral Solution - PO 17.6 mg MoWeFr@1000 [facility] Administration Topiramate 200 mg/ Topiramate 225 mg 10/01/16 10:00 10/02/16 21:52 25 mg GT 225 mg BID [facility] Administration Assessment: 25 year old female with PMHx of cerebral palsy, severe MR, seizure disorder, PEG, spastic quadriparesis, GERD, scoliosis admitted with pneumonia. Plan: 1. Sepsis 2/2 presumptive aspiration pneumonia - Resolved, off abx x3 days 2. Acute hypoxic respiratory failure 2/2 presumptive pneumonia - Medrol 40mg q8h, taper to BID tomorrow - Duonebs QID - Chest PT 3. Seizure disorder - Continue Keppra - Continue Topamax - Continue Trileptal 3. Transaminitis - Trending down - Continue Tube feeds 4. Functional quadraplegia - Requires total care 5. Hypomagnesemia - Replete 1gm IV Visit type - Emergency Visit Emergency Visit: Yes ED Registration Date: 09/25/16 Care time: The patient presented to the Emergency Department on the above date and was hospitalized for further evaluation of their emergent condition. - New Patient This patient is new to me today: No - Critical Care Critical Care patient: No
[2016-10-03] MEDS ORDERED: PT OWN MED DRAWER 7, Y5N ONE ×2 (10:16→21:38)
[2016-10-03] MEDS: levETIRAcetam 500 MG/5 ML ORAL SOLUTION (UNIT-DOSE CUPS) GT SCH ×2 (10:22→22:12)
[2016-10-03] MEDS: OXcarbazepine 300 MG/5 ML 250 ML BULK BOTTLE GT SCH ×2 (10:23→22:14)
[2016-10-03] MEDS: TOPIRAMATE GT SCH ×2 (10:24→22:13)
--- NOTE | 2016-10-03 10:53 | PN ---
Progress Note (short form) - Note Progress Note: PULMONARY LOW GRADE TEMP APPEARS STABLE ANICTERIC/PALE RHONCHI B/L ANTERIOR S1S2 BS+ SOFT SCD'S NO EDEMA LABS/MEDS/NOTES/IMAGING/MICRO REVIEWED (1) Pneumonia Code(s): J18.9 - PNEUMONIA, UNSPECIFIED ORGANISM Qualifiers: Pneumonia type: due to unspecified organism Laterality: unspecified laterality Lung location: unspecified part of lung Qualified Code(s): J18.9 - Pneumonia, unspecified organism (2) Acute respiratory failure with hypoxia Code(s): J96.01 - ACUTE RESPIRATORY FAILURE WITH HYPOXIA (3) Elevated liver enzymes Code(s): R74.8 - ABNORMAL LEVELS OF OTHER SERUM ENZYMES (4) Cerebral palsy Code(s): G80.9 - CEREBRAL PALSY, UNSPECIFIED (5) Functional quadriplegia Code(s): R53.2 - FUNCTIONAL QUADRIPLEGIA (6) Mental retardation Code(s): F79 - UNSPECIFIED INTELLECTUAL DISABILITIES (7) Muscle spasm Code(s): M62.838 - OTHER MUSCLE SPASM (8) Seizure disorder Code(s): G40.909 - EPILEPSY, UNSP, NOT INTRACTABLE, WITHOUT STATUS EPILEPTICUS ABX per ID Aspirations precautions Inhaled bronchodilators O2 Steroid taper Darnell MUNOZ MD
[2016-10-03] MEDS ORDERED: MAGNESIUM SULF 50% (8.12 MEQ/2 ML-1 GM VIAL) IVPB ONE (11:00)
--- NOTE | 2016-10-03 15:29 | PN ---
Progress Note, Physician History of Present Illness: patient stable still coughing had low grade temp - Current Medication List Current Medications: Active Medications Albuterol/Ipratropium (Duoneb -) 1 amp NEB QIDR [facility] Last Admin: 10/03/16 12:31 Dose: 1 amp Baclofen (Lioresal -) 5 mg GT TID [facility] Last Admin: 10/03/16 06:26 Dose: 5 mg Lactulose (Cephulac (Oral Use)) 10 gm GT TID [facility] Last Admin: 10/03/16 06:27 Dose: 10 gm Levetiracetam (Keppra Oral Solution -) 1,500 mg GT BID [facility] Last Admin: 10/03/16 10:22 Dose: 1,500 mg Methylprednisolone Sodium Succinate (Solu-Medrol -) 40 mg IVPB Q8H-IV [facility] Last Admin: 10/03/16 10:23 Dose: 40 mg Oxcarbazepine (Trileptal) 180 mg GT DAILY [facility] Last Admin: 10/03/16 10:23 Dose: 180 mg Oxcarbazepine (Trileptal) 210 mg GT HS [facility] Last Admin: 10/02/16 21:52 Dose: 210 mg Senna (Senna Oral Solution -) 17.6 mg PO MoWeFr@1000 [facility] Last Admin: 10/01/16 09:21 Dose: 17.6 mg Topiramate 200 mg/ Topiramate (25 mg) 225 mg GT BID [facility] Last Admin: 10/03/16 10:24 Dose: 225 mg - Objective Vital Signs: Vital Signs Temperature 99.2 F 10/03/16 07:00 Pulse Rate 87 10/03/16 07:00 Respiratory Rate 18 10/03/16 07:00 Blood Pressure 109/54 10/03/16 07:00 O2 Sat by Pulse Oximetry (%) 100 10/02/16 21:00 Constitutional: Yes: No Distress, Calm Cardiovascular: Yes: Regular Rate and Rhythm Respiratory: Yes: Regular, On Nasal O2, Poor Air Entry Gastrointestinal: Yes: Normal Bowel Sounds, Soft, Other (peg in place) Musculoskeletal: Yes: WNL Extremities: Yes: WNL Neurological: Yes: Alert, Other Psychiatric: Yes: Other Labs: CBC, BMP 10/03/16 06:30 10/03/16 06:30 Assessment/Plan Problem List - Problems (1) Pneumonia Code(s): J18.9 - PNEUMONIA, UNSPECIFIED ORGANISM Qualifiers: Pneumonia type: due to unspecified organism Laterality: unspecified laterality Lung location: unspecified part of lung Qualified Code(s): J18.9 - Pneumonia, unspecified organism (2) Acute respiratory failure with hypoxia Code(s): J96.01 - ACUTE RESPIRATORY FAILURE WITH HYPOXIA (3) Elevated liver enzymes Code(s): R74.8 - ABNORMAL LEVELS OF OTHER SERUM ENZYMES (4) Cerebral palsy Code(s): G80.9 - CEREBRAL PALSY, UNSPECIFIED (5) Functional quadriplegia Code(s): R53.2 - FUNCTIONAL QUADRIPLEGIA (6) Mental retardation Code(s): F79 - UNSPECIFIED INTELLECTUAL DISABILITIES (7) Muscle spasm Code(s): M62.838 - OTHER MUSCLE SPASM (8) Seizure disorder Code(s): G40.909 - EPILEPSY, UNSP, NOT INTRACTABLE, WITHOUT STATUS EPILEPTICUS plan continue resp supprt rest as per pulmonary monitor closely for aspiration stable off of abx if patient continues to have low grade fever will reintroduce abx
[2016-10-04] MEDS: methylPREDNISolone NA SUCC 40 MG/1 ML VIAL IVPB SCH ×3 (02:45→22:50)
[2016-10-04] MEDS: LACTULOSE 20 GM/30 ML UDC (FOR ORAL USE ONLY) GT SCH ×3 (06:21→22:49)
[2016-10-04] MEDS: BACLOFEN 10 MG TABLET (FP) GT SCH ×3 (06:21→22:48)
[2016-10-04] MEDS: ALBUTEROL SO4 2.5/IPRATROPIUM 0.5 INH SOL 3 ML VIAL.NEB. NEB SCH ×5 (06:35→23:46)
[2016-10-04] MEDS: levETIRAcetam 500 MG/5 ML ORAL SOLUTION (UNIT-DOSE CUPS) GT SCH ×2 (09:32→22:49)
[2016-10-04] MEDS: TOPIRAMATE GT SCH ×2 (09:34→23:09)
[2016-10-04] MEDS: SENNOSIDES 8.8 MG/5 ML BULK BOTTLE PO SCH (11:46)
[2016-10-04] MEDS: OXcarbazepine 300 MG/5 ML 250 ML BULK BOTTLE GT SCH ×2 (11:47→22:52)
--- NOTE | 2016-10-04 15:18 | PN ---
Progress Note (short form) - Note Progress Note: PULMONARY Appears comfortable. No fevers recorded. Last Vital Signs Temp Pulse Resp BP Pulse Ox 96.6 F L 103 H 18 108/68 97 10/04/16 07:35 10/04/16 11:50 10/04/16 11:00 10/04/16 11:00 10/04/16 11:50 Gen: NAD at rest Heart: RRR Lung: decreased breath sounds at the bases Abd: soft, nontender Ext: no edema CBC, BMP 10/03/16 06:30 10/03/16 06:30 Active Medications Albuterol/Ipratropium (Duoneb -) 1 amp NEB QIDR [facility] Last Admin: 10/04/16 11:50 Dose: 1 amp Baclofen (Lioresal -) 5 mg GT TID [facility] Last Admin: 10/04/16 06:21 Dose: 5 mg Lactulose (Cephulac (Oral Use)) 10 gm GT TID [facility] Last Admin: 10/04/16 06:21 Dose: 10 gm Levetiracetam (Keppra Oral Solution -) 1,500 mg GT BID [facility] Last Admin: 10/04/16 09:32 Dose: 1,500 mg Methylprednisolone Sodium Succinate (Solu-Medrol -) 40 mg IVPB Q8H-IV [facility] Last Admin: 10/04/16 09:32 Dose: 40 mg Oxcarbazepine (Trileptal) 180 mg GT DAILY [facility] Last Admin: 10/04/16 11:47 Dose: 180 mg Oxcarbazepine (Trileptal) 210 mg GT HS [facility] Last Admin: 10/03/16 22:14 Dose: 210 mg Senna (Senna Oral Solution -) 17.6 mg PO MoWeFr@1000 [facility] Last Admin: 10/04/16 11:46 Dose: 17.6 mg Topiramate 200 mg/ Topiramate (25 mg) 225 mg GT BID [facility] Last Admin: 10/04/16 09:34 Dose: 225 mg A/P Pneumonia likely Aspiration Seizure Disorder Cerebral Palsy Mental Retardation Functional Quadriplegia - s/p antibiotics - can change steroids to PO tomorrow - inhaled bronchodilators - O2 as needed - aspiration precautions - DVT prophylaxis
--- NOTE | 2016-10-04 17:02 | PN ---
Physical Exam: SUBJECTIVE: Patient seen and examined. No acute distress or events overnight. OBJECTIVE: Vital Signs Period Temp Pulse Resp BP Sys/Herman Pulse Ox Last 24 Hr 96.6 F-97.7 F 76-103 18-20 104-118/58-74 97 PE Neuro: awake, non verbal, eye tracks Pulm: clear anteriorly CV: s1 s2 rrr no mrg Abd: s nt nd +peg tube cdi Ext: contracted, bilateral lower ext petechial rash Active Medications Generic Name Dose Route Start Last Admin Trade Name Freq PRN Reason Stop Dose Admin Albuterol/Ipratropium 1 amp 10/01/16 12:00 10/04/16 11:50 Duoneb - NEB 1 amp QIDR [facility] Administration Baclofen 5 mg 10/01/16 14:00 10/04/16 16:13 Lioresal - GT 5 mg TID [facility] Administration Lactulose 10 gm 10/01/16 14:00 10/04/16 16:14 Cephulac (Oral Use) GT 10 gm TID [facility] Administration Levetiracetam 1,500 mg 10/01/16 10:00 10/04/16 09:32 Keppra Oral Solution - GT 1,500 mg BID [facility] Administration Methylprednisolone Sodium Succinate 40 mg 10/04/16 22:00 Solu-Medrol - IVPB BID [facility] Oxcarbazepine 180 mg 10/01/16 10:00 10/04/16 11:47 Trileptal GT 180 mg DAILY [facility] Administration Oxcarbazepine 210 mg 10/01/16 22:00 10/03/16 22:14 Trileptal GT 210 mg HS [facility] Administration Senna 17.6 mg 10/01/16 10:00 10/04/16 11:46 Senna Oral Solution - PO 17.6 mg MoWeFr@1000 [facility] Administration Topiramate 200 mg/ Topiramate 225 mg 10/01/16 10:00 10/04/16 09:34 25 mg GT 225 mg BID [facility] Administration Assessment: 25 year old female with PMHx of cerebral palsy, severe MR, seizure disorder, PEG, spastic quadriparesis, GERD, scoliosis admitted with pneumonia. Plan: 1. Sepsis 2/2 presumptive aspiration pneumonia - Resolved, off abx x4 days 2. Acute hypoxic respiratory failure 2/2 presumptive pneumonia - Taper Medrol BID, transition to PO tomorrow - Duonebs QID - Chest PT 3. Seizure disorder - Continue Keppra - Continue Topamax - Continue Trileptal 3. Transaminitis - Trending down - Continue Tube feeds 4. Functional quadraplegia - Requires total care 5. Hypomagnesemia - Repleted Dispo: - Can DC on PO steroids tomorrow Visit type - Emergency Visit Emergency Visit: Yes ED Registration Date: 09/25/16 Care time: The patient presented to the Emergency Department on the above date and was hospitalized for further evaluation of their emergent condition. - New Patient This patient is new to me today: No - Critical Care Critical Care patient: No
--- NOTE | 2016-10-04 20:00 | PN ---
Progress Note, Physician History of Present Illness: patient doing better minimal cough sputum production decreased secretions minimal - Current Medication List Current Medications: Active Medications Albuterol/Ipratropium (Duoneb -) 1 amp NEB QIDR [facility] Last Admin: 10/04/16 18:22 Dose: 1 amp Baclofen (Lioresal -) 5 mg GT TID [facility] Last Admin: 10/04/16 16:13 Dose: 5 mg Lactulose (Cephulac (Oral Use)) 10 gm GT TID [facility] Last Admin: 10/04/16 16:14 Dose: 10 gm Levetiracetam (Keppra Oral Solution -) 1,500 mg GT BID [facility] Last Admin: 10/04/16 09:32 Dose: 1,500 mg Methylprednisolone Sodium Succinate (Solu-Medrol -) 40 mg IVPB BID [facility] Oxcarbazepine (Trileptal) 180 mg GT DAILY [facility] Last Admin: 10/04/16 11:47 Dose: 180 mg Oxcarbazepine (Trileptal) 210 mg GT HS [facility] Last Admin: 10/03/16 22:14 Dose: 210 mg Senna (Senna Oral Solution -) 17.6 mg PO MoWeFr@1000 [facility] Last Admin: 10/04/16 11:46 Dose: 17.6 mg Topiramate 200 mg/ Topiramate (25 mg) 225 mg GT BID [facility] Last Admin: 10/04/16 09:34 Dose: 225 mg - Objective Vital Signs: Vital Signs Temperature 97.1 F L 10/04/16 17:13 Pulse Rate 71 10/04/16 17:13 Respiratory Rate 20 10/04/16 17:13 Blood Pressure 113/63 10/04/16 17:13 O2 Sat by Pulse Oximetry (%) 97 10/04/16 11:50 Constitutional: Yes: No Distress, Calm Cardiovascular: Yes: Regular Rate and Rhythm Respiratory: Yes: Regular, Poor Air Entry Gastrointestinal: Yes: Normal Bowel Sounds, Soft, Other (tolerating tube feed) Musculoskeletal: Yes: WNL Extremities: Yes: Other Neurological: Yes: Alert, Other Psychiatric: Yes: Other Labs: CBC, BMP 10/03/16 06:30 10/03/16 06:30 Assessment/Plan Problem List - Problems (1) Pneumonia Code(s): J18.9 - PNEUMONIA, UNSPECIFIED ORGANISM Qualifiers: Pneumonia type: due to unspecified organism Laterality: unspecified laterality Lung location: unspecified part of lung Qualified Code(s): J18.9 - Pneumonia, unspecified organism (2) Acute respiratory failure with hypoxia Code(s): J96.01 - ACUTE RESPIRATORY FAILURE WITH HYPOXIA (3) Elevated liver enzymes Code(s): R74.8 - ABNORMAL LEVELS OF OTHER SERUM ENZYMES (4) Cerebral palsy Code(s): G80.9 - CEREBRAL PALSY, UNSPECIFIED (5) Functional quadriplegia Code(s): R53.2 - FUNCTIONAL QUADRIPLEGIA (6) Mental retardation Code(s): F79 - UNSPECIFIED INTELLECTUAL DISABILITIES (7) Muscle spasm Code(s): M62.838 - OTHER MUSCLE SPASM (8) Seizure disorder Code(s): G40.909 - EPILEPSY, UNSP, NOT INTRACTABLE, WITHOUT STATUS EPILEPTICUS plan continue resp supprt rest as per pulmonary monitor closely for aspiration stable off of abx continue to monitor temp now temp on the lower side
[2016-10-04] MEDS ORDERED: PT OWN MED DRAWER 7, Y5N ONE (22:45)
[2016-10-05] MEDS: BACLOFEN 10 MG TABLET (FP) GT SCH ×2 (06:07→14:12)
[2016-10-05] MEDS: LACTULOSE 20 GM/30 ML UDC (FOR ORAL USE ONLY) GT SCH ×2 (06:08→14:12)
[2016-10-05] MEDS: ALBUTEROL SO4 2.5/IPRATROPIUM 0.5 INH SOL 3 ML VIAL.NEB. NEB SCH ×2 (07:02→11:45)
[2016-10-05] MEDS ORDERED: PT OWN MED DRAWER 7, Y5N ONE (09:16)
[2016-10-05] MEDS: levETIRAcetam 500 MG/5 ML ORAL SOLUTION (UNIT-DOSE CUPS) GT SCH (09:22)
[2016-10-05] MEDS: TOPIRAMATE GT SCH (09:22)
[2016-10-05] MEDS: methylPREDNISolone NA SUCC 40 MG/1 ML VIAL IVPB SCH (09:22)
[2016-10-05] MEDS: OXcarbazepine 300 MG/5 ML 250 ML BULK BOTTLE GT SCH (09:24)
[2016-10-05 13:58] VITALS: BP 100/50; PULSE 85; TEMP 98.3
--- NOTE | 2016-10-05 17:14 | PN ---
Progress Note, Physician History of Present Illness: stable minimal secretions - Objective Vital Signs: Vital Signs Temperature 98.3 F 10/05/16 09:00 Pulse Rate 85 10/05/16 09:00 Respiratory Rate 20 10/05/16 09:00 Blood Pressure 100/50 10/05/16 09:00 O2 Sat by Pulse Oximetry (%) 97 10/04/16 21:00 Constitutional: Yes: No Distress, Calm Cardiovascular: Yes: Regular Rate and Rhythm Respiratory: Yes: Regular, Rhonchi Gastrointestinal: Yes: Normal Bowel Sounds, Soft, Other (peg in place) Extremities: Yes: Other Neurological: Yes: Alert, Other Psychiatric: Yes: Other Labs: CBC, BMP 10/03/16 06:30 10/03/16 06:30 Assessment/Plan Problem List - Problems (1) Pneumonia Code(s): J18.9 - PNEUMONIA, UNSPECIFIED ORGANISM Qualifiers: Pneumonia type: due to unspecified organism Laterality: unspecified laterality Lung location: unspecified part of lung Qualified Code(s): J18.9 - Pneumonia, unspecified organism (2) Acute respiratory failure with hypoxia Code(s): J96.01 - ACUTE RESPIRATORY FAILURE WITH HYPOXIA (3) Elevated liver enzymes Code(s): R74.8 - ABNORMAL LEVELS OF OTHER SERUM ENZYMES (4) Cerebral palsy Code(s): G80.9 - CEREBRAL PALSY, UNSPECIFIED (5) Functional quadriplegia Code(s): R53.2 - FUNCTIONAL QUADRIPLEGIA (6) Mental retardation Code(s): F79 - UNSPECIFIED INTELLECTUAL DISABILITIES (7) Muscle spasm Code(s): M62.838 - OTHER MUSCLE SPASM (8) Seizure disorder Code(s): G40.909 - EPILEPSY, UNSP, NOT INTRACTABLE, WITHOUT STATUS EPILEPTICUS plan continue resp supprt rest as per pulmonary monitor closely for aspiration stable off of abx continue to monitor temp
--- NOTE | 2016-10-26 16:05 | DS ---
Physical Exam: SUBJECTIVE: Patient seen and examined OBJECTIVE: Vital Signs Temperature 98.3 F 10/05/16 09:00 Pulse Rate 85 10/05/16 09:00 Respiratory Rate 20 10/05/16 09:00 Blood Pressure 100/50 10/05/16 09:00 O2 Sat by Pulse Oximetry (%) 97 10/04/16 21:00 PHYSICAL EXAM GENERAL: The patient is awake, alert, and fully oriented, in no acute distress. HEAD: Normal with no signs of trauma. EYES: PERRL, extraocular movements intact, sclera anicteric, conjunctiva clear. ENT: Ears normal, nares patent, oropharynx clear without exudates, moist mucous membranes. NECK: Trachea midline, full range of motion, supple. LUNGS: Breath sounds equal, clear to auscultation bilaterally, no wheezes, no crackles, no accessory muscle use. HEART: Regular rate and rhythm, S1, S2 without murmur, rub or gallop. ABDOMEN: Soft, nontender, nondistended, normoactive bowel sounds, no guarding, no rebound, no hepatosplenomegaly, no masses. EXTREMITIES: 2+ pulses, warm, well-perfused, no edema; contracted NEUROLOGICAL: Cranial nerves II through XII grossly intact. Normal speech, gait not observed. PSYCH: Normal mood, normal affect. SKIN: Warm, dry, normal turgor, no rashes or lesions noted. CBCD WBC 6.6 K/mm3 (4.0-10.0) 10/03/16 06:30 RBC 3.33 M/mm3 (3.60-5.2) L 10/03/16 06:30 Hgb 11.2 GM/dL (10.7-15.3) 10/03/16 06:30 Hct 33.8 % (32.4-45.2) 10/03/16 06:30 MCV 101.4 fl (80-96) H 10/03/16 06:30 MCHC 33.1 g/dl (32.0-36.0) 10/03/16 06:30 RDW 15.2 % (11.6-15.6) 10/03/16 06:30 Plt Count 242 K/MM3 (134-434) D 10/03/16 06:30 MPV 8.4 fl (7.5-11.1) 10/03/16 06:30 CMP Sodium 143 mmol/L (136-145) 10/03/16 06:30 Potassium 3.5 mmol/L (3.5-5.1) 10/03/16 06:30 Chloride 106 mmol/L (98-107) 10/03/16 06:30 Carbon Dioxide 29 mmol/L (21-32) 10/03/16 06:30 Anion Gap 8 (8-16) 10/03/16 06:30 BUN 17 mg/dL (7-18) 10/03/16 06:30 Creatinine 0.4 mg/dL (0.55-1.02) L 10/03/16 06:30 Creat Clearance w eGFR > 60 (>60) 10/03/16 06:30 Calcium 8.8 mg/dL (8.5-10.1) 10/03/16 06:30 Total Bilirubin 0.3 mg/dL (0.2-1.0) D 10/03/16 06:30 AST 10 U/L (15-37) L D 10/03/16 06:30 ALT 63 U/L (12-78) D 10/03/16 06:30 Alkaline Phosphatase 156 U/L (45-117) H 10/03/16 06:30 Total Protein 6.0 g/dl (6.4-8.2) L 10/03/16 06:30 Albumin 2.7 g/dl (3.4-5.0) L 10/03/16 06:30 HOSPITAL COURSE: Date of Admission:09/25/16 Date of Discharge: 10/05/16 25 year old female with PMHx of cerebral palsy, severe MR, seizure disorder, PEG , spastic quadriparesis, GERD, scoliosis admitted with pneumonia. 1. Sepsis 2/2 presumptive aspiration pneumonia - completed Zosyn x 7 days 2. Acute hypoxic respiratory failure 2/2 presumptive pneumonia - Taper Medrol BID, transitioned PO on discharge - Duonebs QID - Chest PT 3. Seizure disorder - Continued Keppra - Continued Topamax - Continued Trileptal 3. Transaminitis - Trending down 4. Functional quadraplegia - Requires total care 5. Hypomagnesemia - Repleted Minutes to complete discharge: 35 Discharge Summary Reason For Visit: PNEUMONIA NONCARDIAC Condition: Improved - Instructions Referrals: Oscar Cheek Jr [Non Staff, Medical] - Disposition: HOME - Home Medications Comprehensive Discharge Medication List: Ambulatory Orders Baclofen 5 mg GT TID 09/25/16 Cholecalciferol (Vitamin D3) [Vitamin D3] 2,000 unit GT DAILY 09/25/16 Diazepam Rectal Gel [Diastat Rectal Gel -] 10 mg CA PRN PRN 09/25/16 Lactulose 10 gm GT TID 09/25/16 Levetiracetam [levETIRAcetam ORAL SUSPENSION] 15 mg GT BID 09/25/16 OXcarbazepine [Trileptal] 180 mg GT DAILY 09/25/16 OXcarbazepine [Trileptal] 210 mg PO HS 09/25/16 Topiramate 25 mg GT BID 09/25/16 Topiramate 200 mg GT BID 09/25/16 Vitrum Liquid 15 ml GT DAILY 09/25/16 Prednisone 10 mg PO ASDIR #27 tablet 10/05/16 This patient is new to me today: Yes Date on this admission: 10/26/16 Emergency Visit: Yes ED Registration Date: 09/25/16 Care time: The patient presented to the Emergency Department on the above date and was hospitalized for further evaluation of their emergent condition. Critical Care patient: No - Discharge Referral Referred to [facility] No
== END 2016-10-05 15:14 | disposition home or self-care (01) | DRG 871 ==
LOC: JER 15:03 → JERBED 19:03 → J4W 09-26 02:09 → J8W 09-30 18:16
PROVIDERS: ADMIT Internal Medicine; ATTEND Nurse Practitioner Acute Care
PROC: 3E0F7GC Introduction of Other Therapeutic Substance into Respiratory Tract, Via Natural or Artificial Opening (ICD-10-PCS; principal; 2016-09-27)
PROC: 3E0H76Z Introduction of Nutritional Substance into Lower GI, Via Natural or Artificial Opening (ICD-10-PCS; 2016-09-27)
DX: A41.9 Sepsis, unspecified organism (principal); J69.0 Pneumonitis due to inhalation of food and vomit; G80.0 Spastic quadriplegic cerebral palsy; J96.01 Acute respiratory failure with hypoxia; F72 Severe intellectual disabilities; G40.802 Other epilepsy, not intractable, without status epilepticus; E83.42 Hypomagnesemia; R74.0 Nonspecific elevation of levels of transaminase and lactic acid dehydrogenase [LDH]; K21.9 Gastro-esophageal reflux disease without esophagitis; M41.80 Other forms of scoliosis, site unspecified; R68.0 Hypothermia, not associated with low environmental temperature; M62.838 Other muscle spasm; Z93.1 Gastrostomy status
CPT/HCPCS: 36415; 71010-TC; 80048; 80053; 80076; 81003; 83605; 83735; 85025; 85027; 87040; 87070; 87086; 87205; 87254; 87804; 87899; 93005; 93010; 94640; 99285-25; J0475; J1644

== ENCOUNTER 2016-11-26 15:22 | Inpatient (IN) | payer OTHER ==
[2016-11-26 15:46] VITALS: BMI 24.5
--- NOTE | 2016-11-26 15:54 | PDOC ---
History of Present Illness - History of Present Illness Initial Comments: 11/26/16 16:35 Patient is a 26 year old female from [facility] with significant medical hx of cerebral palsy, severe MR, seizure disorder with multiple seizures per day, PEG , spastic quadriparesis, GERD, scoliosis, visual impairment, and frequent pneumonia who has been sent to the ED for hypoxia and respiratory distress. Patients O2Sat was 86-88% on room air at the senior care. Physician from senior care reports that the patient has not been herself and she's had increased sputum production. The patient is non-verbal at baseline with some occasional eye contact. She is accompanied by residency staff who is not familiar with her baseline. Patient cannot provide history due to severe MR. [place] Physician: Oscar Cheek MD <Charley Haro - Last Filed: 11/26/16 16:59> <Belen Green - Last Filed: 11/26/16 18:04> - General Chief Complaint: Shortness of Breath Stated Complaint: Shortness of Breath Time Seen by Provider: 11/26/16 15:53 Past History <Charley Haro - Last Filed: 11/26/16 16:59> - Past Medical History GI Disorders: Yes (GERD. GTUBE.) Seizures: Yes (EPILEPSY.) Other medical history: congenital quadriplegia, cerebal palsy - Surgical History Abdominal Surgery: Yes GI Surgery: Yes (GTUBE.) Neurologic Surgery: Yes (SPINAL SX.) - Psycho/Social/Smoking Cessation Hx Anxiety: No Suicidal Ideation: No Smoking History: Never smoked Have you smoked in the past 12 months: No Number of Cigarettes Smoked Daily: 0 Hx Alcohol Use: No Drug/Substance Use Hx: No Substance Use Type: None Hx Substance Use Treatment: No <Belen Green - Last Filed: 11/26/16 18:04> - Past Medical History Allergies/Adverse Reactions: Allergies Allergy/AdvReac Type Severity Reaction Status Date / Time No Known Allergies Allergy Verified 11/26/16 15:41 Home Medications: Ambulatory Orders Baclofen 5 mg GT TID 09/25/16 Cholecalciferol (Vitamin D3) [Vitamin D3] 2,000 unit GT DAILY 09/25/16 Diazepam Rectal Gel [Diastat Rectal Gel -] [address] PRN PRN 09/25/16 Lactulose 10 gm GT TID 09/25/16 Levetiracetam [levETIRAcetam ORAL SUSPENSION] 15 mg GT BID 09/25/16 OXcarbazepine [Trileptal] 180 mg GT DAILY 09/25/16 OXcarbazepine [Trileptal] 210 mg PO HS 09/25/16 Topiramate 25 mg GT BID 09/25/16 Topiramate 200 mg GT BID 09/25/16 Vitrum Liquid 15 ml GT DAILY 09/25/16 Prednisone 10 mg PO ASDIR #27 tablet 10/05/16 Review of Systems - Review of Systems Comments:: 11/26/16 16:36 Patient unable to perform ROS. <Charley Haro - Last Filed: 11/26/16 16:59> *Physical Exam - Vital Signs Last Vital Signs Temp Pulse Resp BP Pulse Ox 52 L 30 H 168/101 97 11/26/16 15:41 11/26/16 15:41 11/26/16 15:41 11/26/16 15:41 - Physical Exam Comments: 11/26/16 17:00 GENERAL: Awake. Nonverbal. Responds to verbal stimuli, in no acute distress HEAD: No signs of trauma EYES: PERRLA, EOMI, sclera anicteric, conjunctiva clear ENT: Auricles normal inspection, hearing grossly normal, nares patent, oropharynx clear without exudates. Moist mucosa NECK: Normal ROM, supple, no lymphadenopathy, JVD, or masses LUNGS: Mild respiratory distress, no accessory muscle use. Rhonchi bilaterally throughout lung zavaal. Upper airway noises. No wheezes and no crackles HEART: Regular rate and rhythm, normal S1 and S2, no murmurs, rubs or gallops ABDOMEN: Peg tube intact, no surrounding erythema. Soft, nontender, normoactive bowel sounds. No guarding, no rebound. No masses EXTREMITIES: Contractures to upper extremities. No edema. NEUROLOGICAL: Nonverbal. Opens eyes to verbal stimuli. Withdraws to pain. SKIN: Petechial rash. Warm, Dry, normal turgor, no lesions noted. HEMATOLOGIC/LYMPHATIC: No anemia, easy bleeding, or history of blood clots. ALLERGIC/IMMUNOLOGIC: No hives or skin allergy. <Charley Haro - Last Filed: 11/26/16 16:59> - Vital Signs Last Vital Signs Temp Pulse Resp BP Pulse Ox 52 L 30 H 168/101 97 11/26/16 15:41 11/26/16 15:41 11/26/16 15:41 11/26/16 15:41 <Belen Green - Last Filed: 11/26/16 18:04> ED Treatment Course - RADIOLOGY Radiograph Interpretation: 11/26/16 16:39 Chest X-Ray Impression: Mild bibasal atelectatic changes without gross evidence of infiltrates. Reported By: Rhea Brandon MD <Charley Haro - Last Filed: 11/26/16 16:59> - LABORATORY CBC & Chemistry Diagram: 11/26/16 15:54 11/26/16 17:00 <Belen Green - Last Filed: 11/26/16 18:04> Medical Decision Making - Medical Decision Making 11/26/16 17:54 Pt presents to the ED after sent in from [place] for increase sputum production and hypoxia. As per pateint's [place] physcian, patient does not usually have an oxygen requirement. Multiple admissions to [facility] for pneumonia with several ICU stays. CXR is negative for PNA, but given patient's hypoxia and increased WBC count, will admit to medicine for PNA. Will treat with levaquin. <Belen Green - Last Filed: 11/26/16 18:04> *DC/Admit/Observation/Transfer - Attestations Scribe Attestion: 11/26/16 16:38 Documentation prepared by Charley Haro, acting as dental assistant medical assistant for Belen Green MD. <Charley Haro - Last Filed: 11/26/16 16:59> - Discharge Dispostion Admit: Yes <Belen Green - Last Filed: 11/26/16 18:04> Diagnosis at time of Disposition: Pneumonia - Discharge Dispostion Condition at time of disposition: Fair
[2016-11-26 17:10] LABS: BASOPHIL 0.1 % (0-2.0); MCH 33.1 pg (25.7-33.7); MCHC 33.2 g/dl (32.0-36.0); MEAN CELL VOLUME 99.7 fl (80-96); MEAN PLT VOLUME 8.7 fl (7.5-11.1); PLATELET COUNT 201 K/MM3 (134-434); RDW 15.5 % (11.6-15.6); WHITE BLOOD COUNT 13.6 K/mm3 (4.0-10.0)
[2016-11-26 17:45] LABS: ALBUMIN 3.6 g/dl (3.4-5.0); ALK PHOS 212 U/L (45-117); ANION GAP 9 (8-16); BILIRUBIN,TOTAL 0.2 mg/dL (0.2-1.0); CALCIUM 8.8 mg/dL (8.5-10.1); CO2 24 mmol/L (21-32); COCKROFT - GAULT 171.8445; CREATININE 0.4 mg/dL (0.55-1.02); GLUCOSE,RANDOM 87 mg/dL (74-106); SGOT/AST 40 U/L (15-37); SGPT/ALT 66 U/L (12-78); TOT PROT 6.9 g/dl (6.4-8.2)
[2016-11-26] MEDS ORDERED: PIPERACILLIN/TAZOB 3.375 GM 50 ML IVPB ONE ×2 (19:34→20:50)
[2016-11-26 20:28] LABS: URINE APPEARANCE CLEAR; URINE BILIRUBIN NEGATIVE (NEGATIVE); URINE COLOR COLORLESS; URINE GLUCOSE (UA) NEGATIVE (NEGATIVE); URINE KETONE NEGATIVE (NEGATIVE); URINE LEUK ESTERASE NEGATIVE (NEGATIVE); URINE NITRITE NEGATIVE (NEGATIVE); URINE PROTEIN NEGATIVE (NEGATIVE); URINE UROBILINOGEN NEGATIVE E.U./dl (0.2-1.0)
[2016-11-26] MEDS ORDERED: ALBUTEROL SO4 0.083% IH SOL 2.5 MG/3 ML VIAL.NEB. NEB PRN (20:28)
[2016-11-26 20:29] LABS: URINE BLOOD 2+ (NEGATIVE)
[2016-11-26 20:30] LABS: URINE RBC 1 /hpf (0-3)
[2016-11-26] MEDS ORDERED: VANCOMYCIN 1 GRAM (PRE-DOCKED) 1,000 MG/250 ML BAG IVPB ONE (20:49)
[2016-11-26] MEDS ORDERED: VANCOMYCIN 1 GRAM (PRE-DOCKED) 250 ML IVPB ONE (21:13)
--- NOTE | 2016-11-26 21:26 | HP ---
CHIEF COMPLAINT: cough/hypoxia PCP: Oscar Cheek MD HISTORY OF PRESENT ILLNESS: This is a 26 year old female with a past medical history of cerebral palsy, severe MR, seizure d/o, Pneumonia, PEG tube, spastic quadriparesis, GERD who presented to the ED from her correction, [facility], with report of increased cough with increased sputum production and hypoxia (sat in 80s). Pt is nonverbal and noncommunicative at baseline. ER course was notable for: (1) WBC 13.6 Recent Travel: none PAST MEDICAL HISTORY: cerebral palsy with severe MR seizure d/o PNA-mult episodes Spastic quadriparesis GERD scoliosis PAST SURGICAL HISTORY: PEG tub scoliosis surgery Social History: Smoking: none Alcohol: none Drugs: none Family History: unable to obtain Allergies No Known Allergies Allergy (Verified 11/26/16 15:41) HOME MEDICATIONS: 3 Medication Instructions Recorded Baclofen 5 mg GT TID 09/25/16 Cholecalciferol (Vitamin D3) 2,000 unit GT DAILY 09/25/16 [Vitamin D3] Diazepam Rectal Gel [Diastat [address] PRN PRN 09/25/16 Rectal Gel -] Lactulose 10 gm GT TID 09/25/16 Levetiracetam [levETIRAcetam ORAL 1,500 mg GT BID 09/25/16 SUSPENSION] OXcarbazepine [Trileptal] 180 mg GT DAILY 09/25/16 OXcarbazepine [Trileptal] 210 mg PO HS 09/25/16 Topiramate 25 mg GT BID 09/25/16 Topiramate 200 mg GT BID 09/25/16 Vitrum Liquid 15 ml GT DAILY 09/25/16 Albuterol 0.083% Nebulizer Sobeida 1 amp NEB PRN PRN 11/26/16 [Ventolin 0.083% Nebulizer Soln -] Ipratropium/Albuterol Sulfate 3 ml NEB Q4HWA PRN 11/26/16 [Iprat-Albut 0.5-3(2.5) mg/3 ml] Nystatin/Triamcinolone Top Oin 1 applic TP PRN PRN 11/26/16 [Mycolog II Ointment -] REVIEW OF SYSTEMS CONSTITUTIONAL: Absent: fever, chills, diaphoresis, generalized weakness, malaise, loss of appetite, weight change HEENT: Absent: rhinorrhea, nasal congestion, throat pain, throat swelling, difficulty swallowing, mouth swelling, ear pain, eye pain, visual changes CARDIOVASCULAR: Absent: chest pain, syncope, palpitations, irregular heart rate, lightheadedness , peripheral edema RESPIRATORY: Present: cough Absent: shortness of breath, dyspnea with exertion, orthopnea, wheezing, stridor , hemoptysis GASTROINTESTINAL: Absent: abdominal pain, abdominal distension, nausea, vomiting, diarrhea, constipation, melena, hematochezia GENITOURINARY: Absent: dysuria, frequency, urgency, hesitancy, hematuria, flank pain, genital pain MUSCULOSKELETAL: Absent: myalgia, arthralgia, joint swelling, back pain, neck pain SKIN: Absent: rash, itching, pallor HEMATOLOGIC/IMMUNOLOGIC: Absent: easy bleeding, easy bruising, lymphadenopathy, frequent infections ENDOCRINE: Absent: unexplained weight gain, unexplained weight loss, heat intolerance, cold intolerance NEUROLOGIC: Absent: headache, focal weakness or paresthesias, dizziness, unsteady gait, seizure, mental status changes, bladder or bowel incontinence PSYCHIATRIC: Absent: anxiety, depression, suicidal or homicidal ideation, hallucinations. PHYSICAL EXAMINATION Vital Signs - 24 hr 3 11/26/16 11/26/16 11/26/16 11/26/16 15:41 16:41 18:05 19:30 Temperature 96 F L 98.1 F Pulse Rate 52 L 102 H Pulse Rate [ 103 H 89 Apical] Respiratory 30 H 18 20 Rate Blood Pressure 168/101 130/60 Blood Pressure 147/130 122/79 [Left Arm] O2 Sat by Pulse 97 98 98 99 Oximetry (%) GENERAL: Awake, alert, in no acute distress. does not follow commands HEAD: Normal with no signs of trauma. EYES: Pupils equal, round and reactive to light, extraocular movements intact, sclera anicteric, conjunctiva clear. No lid lag. EARS, NOSE, THROAT: Ears normal, nares patent, oropharynx clear without exudates. Moist mucous membranes. drooling noted NECK: Normal range of motion, supple without lymphadenopathy, JVD, or masses. LUNGS: Breath sounds equal, clear to auscultation bilaterally. + rhonchi, + upper airway noise. No wheezes, and no crackles. No accessory muscle use. HEART: Regular rate and rhythm, normal S1 and S2 without murmur, rub or gallop. ABDOMEN: Soft, nontender, not distended, normoactive bowel sounds, no guarding, no rebound, no masses. No hepatomegaly or splenomegaly. MUSCULOSKELETAL: + contractures noted: bilat elbows, knees, hips, wrists. No tenderness. No CVA tenderness. UPPER EXTREMITIES: 2+ pulses, warm, well-perfused. No cyanosis. No clubbing. No peripheral edema. LOWER EXTREMITIES: 2+ pulses, warm, well-perfused. No calf tenderness. No peripheral edema. NEUROLOGICAL: Cranial nerves II-XII intact. Normal speech. Normal gait. PSYCHIATRIC: Cooperative. Good eye contact. Appropriate mood and affect. SKIN: Warm, dry, normal turgor, no lesions noted, normal capillary refill. + petechial rash to extremities Laboratory Results - last 24 hr 3 11/26/16 11/26/16 11/26/16 15:54 17:00 17:00 WBC 13.6 H D RBC 3.69 Hgb 12.2 Hct 36.8 MCV 99.7 H MCHC 33.2 RDW 15.5 Plt Count 201 MPV 8.7 Neutrophils % 89.0 H D Lymphocytes % 4.2 L D Monocytes % 6.7 Eosinophils % 0.0 D Basophils % 0.1 Sodium 135 L Potassium 4.4 D Chloride 102 Carbon Dioxide 24 Anion Gap 9 BUN 16 Creatinine 0.4 L Creat Clearance w eGFR > 60 Random Glucose 87 Lactic Acid 1.1 Calcium 8.8 Total Bilirubin 0.2 D AST 40 H D ALT 66 Alkaline Phosphatase 212 H D Total Protein 6.9 Albumin 3.6 D Urine Color Urine Appearance Urine pH Urine Protein Urine Glucose (UA) Urine Ketones Urine Blood Urine Nitrite Urine Bilirubin Urine Urobilinogen Ur Leukocyte Esterase Urine RBC Urine WBC Ur Epithelial Cells 3 11/26/16 20:12 Urine Color Colorless Urine Appearance Clear Urine pH 8.0 D Urine Protein Negative Urine Glucose (UA) Negative Urine Ketones Negative Urine Blood 2+ H Urine Nitrite Negative Urine Bilirubin Negative Urine Urobilinogen Negative Ur Leukocyte Esterase Negative Urine RBC 1 Urine WBC None Ur Epithelial Cells Rare Portable chest x-ray AP sitting. Since 09/29/2016, there remains severe dextroscoliosis of the mid and lower thoracic as well as included upper lumbar spine with Le rods identified. There is a significant elevation of the left hemidiaphragm reaching the level of the left hilum. Mild bibasal atelectatic changes are present. The heart remains within normal limits in size. Mediastinum and visualized rib cage appear unremarkable IMPRESSION: Mild bibasal atelectatic changes without gross evidence of infiltrates ASSESSMENT/PLAN: 26yF with PMH cerebral palsy, severe MR, seizure d/o, Pneumonia, PEG tube, spastic quadriparesis, GERD, scoliosis who presented with cough and increased sputum production. Sepsis due to Pneumonia-health care acquired - sepsis as evidenced by elevated HR, WBC - start zosyn 3.375 and vancomycin 1g - ID consult - cont duonebs - consider pulm consult given repeat episodes - NS @ 100cc/hr for now, most recent bp 122/51 @8pm as per RN seizure - cont home meds, seizure free with same CP with spasticity - cont home baclofen functional quadriplegia - as evidenced by inability to perform basic ADLs. totally dependent on staff for all ADLs - increased risk for pneumonia, pressure ulcers, UTI-h/o ESBL in 02/2016 but has had 2 negative cultures since, no need for isolation. DVT PPX - heparin 5000u SC TID FEN - NS @ 100cc/hr - repeat labs in am - tube feed to restart tomorrow Dispo: Pt currently requires inpatient management of his emergent condition. Visit type - Emergency Visit Emergency Visit: Yes ED Registration Date: 11/26/16 Care time: The patient presented to the Emergency Department on the above date and was hospitalized for further evaluation of their emergent condition. - New Patient This patient is new to me today: Yes Date on this admission: 11/26/16 - Critical Care Critical Care patient: No
[2016-11-26] MEDS ORDERED: OXCARBAZEPINE PO SCH (22:00)
[2016-11-26] MEDS ORDERED: TOPIRAMATE 25 MG TABLET (FP) NR SCH ×2 (22:00)
[2016-11-26] MEDS ORDERED: LACTULOSE 10 GM GT SCH (22:00)
[2016-11-26] MEDS ORDERED: LEVETIRACETAM 1500 MG GT SCH (22:00)
[2016-11-26] MEDS: ALBUTEROL SO4 2.5/IPRATROPIUM 0.5 INH SOL 3 ML VIAL.NEB. NEB SCH (22:57)
[2016-11-27] MEDS: levETIRAcetam 500 MG/5 ML ORAL SOLUTION (UNIT-DOSE CUPS) GT SCH ×3 (00:01→21:44)
[2016-11-27] MEDS: LACTULOSE 20 GM/30 ML UDC (FOR ORAL USE ONLY) GT SCH ×4 (00:01→21:44)
[2016-11-27] MEDS: TOPIRAMATE 25 MG TABLET (FP) NR SCH ×3 (00:02→21:43)
[2016-11-27] MEDS: BACLOFEN 10 MG TABLET (FP) GT SCH ×4 (00:03→21:43)
[2016-11-27] MEDS: HEPARIN NA (PORCINE) 5,000 UNITS/ML 1ML VIAL SQ SCH ×4 (00:03→21:47)
[2016-11-27] MEDS: ALBUTEROL SO4 2.5/IPRATROPIUM 0.5 INH SOL 3 ML VIAL.NEB. NEB SCH ×4 (02:00→17:48)
[2016-11-27] MEDS ORDERED: ALBUTEROL SO4 0.083% IH SOL 2.5 MG/3 ML VIAL.NEB. NEB PRN (05:09)
[2016-11-27 08:35] LABS: BASOPHIL 0.1 % (0-2.0); EOSINOPHIL 0.1 % (0-4.5); MCH 33.9 pg (25.7-33.7); MCHC 34.3 g/dl (32.0-36.0); MEAN CELL VOLUME 98.7 fl (80-96); MEAN PLT VOLUME 8.3 fl (7.5-11.1); PLATELET COUNT 183 K/MM3 (134-434); RDW 15.4 % (11.6-15.6); WHITE BLOOD COUNT 14.4 K/mm3 (4.0-10.0)
[2016-11-27 08:54] LABS: ALBUMIN 3.2 g/dl (3.4-5.0); ANION GAP 12 (8-16); CALCIUM 9.2 mg/dL (8.5-10.1); CO2 23 mmol/L (21-32); GLUCOSE,RANDOM 94 mg/dL (74-106); MAGNESIUM 2.1 mg/dL (1.8-2.4)
[2016-11-27 08:59] LABS: ALK PHOS 181 U/L (45-117); BILIRUBIN,TOTAL 0.3 mg/dL (0.2-1.0); COCKROFT - GAULT 171.8445; CREATININE 0.4 mg/dL (0.55-1.02); PHOSPHOROUS 3.5 mg/dL (2.5-4.9); SGOT/AST 32 U/L (15-37); SGPT/ALT 58 U/L (12-78); TOT PROT 6.6 g/dl (6.4-8.2)
[2016-11-27] MEDS ORDERED: PIPERACILLIN/TAZOB 3.375 GM/50 ML PRE-DOCKED IVPB ONE ×2 (09:45→20:48)
[2016-11-27] MEDS ORDERED: OXCARBAZEPINE GT SCH (10:00)
[2016-11-27] MEDS ORDERED: PIPERACILLIN/TAZOB 3.375 GM 3.375 GM in DEXTROSE 5%-WATER - 50 ML IVPB SCH (10:15)
[2016-11-27] MEDS ORDERED: PT OWN MED DRAWER 7, Y5N ONE ×2 (10:21→21:41)
[2016-11-27] MEDS: CHOLECALCIFEROL (VITAMIN D3) 1,000 UNIT TABLET (FP) GT SCH (10:23)
[2016-11-27] MEDS: OXcarbazepine 300 MG/5 ML 250 ML BULK BOTTLE GT SCH ×3 (10:23→21:47)
--- NOTE | 2016-11-27 10:26 | CONSULT ---
Consult Consult Specialty:: infectious diseases Reason for Consultation:: pneumonia - History of Present Illness History of Present Illness: patient well known to me with multiple admission for pneumonia comes in with same issues patient has MR and rich and non verbal,unable to give any history 26 year old female with a past medical history of cerebral palsy, severe MR, seizure d/o, Pneumonia, PEG tube, spastic quadriparesis, GERD admitted from her senior living, [facility], with report of increased cough with increased sputum production and hypoxia (sat in 80s). Pt is nonverbal and noncommunicative at baseline. 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, Other (cerbral palsy) Pulmonary: Yes: Asthma - Alcohol/Substance Use Hx Alcohol Use: No - Smoking History Smoking history: Never smoked Have you smoked in the past 12 months: No Aproximately how many cigarettes per day: 0 - Social History Usual Living Arrangement: [facility] History of Recent Travel: No Home Medications - Allergies Allergies/Adverse Reactions: Allergies Allergy/AdvReac Type Severity Reaction Status Date / Time No Known Allergies Allergy Verified 11/26/16 15:41 - Home Medications Home Medications: Ambulatory Orders Baclofen 5 mg GT TID 09/25/16 Cholecalciferol (Vitamin D3) [Vitamin D3] 2,000 unit GT DAILY 09/25/16 Diazepam Rectal Gel [Diastat Rectal Gel -] 10 mg RI PRN PRN 09/25/16 Lactulose 10 gm GT TID 09/25/16 Levetiracetam [levETIRAcetam ORAL SUSPENSION] 1,500 mg GT BID 09/25/16 OXcarbazepine [Trileptal] 180 mg GT DAILY 09/25/16 OXcarbazepine [Trileptal] 210 mg PO HS 09/25/16 Topiramate 25 mg GT BID 09/25/16 Topiramate 200 mg GT BID 09/25/16 Vitrum Liquid 15 ml GT DAILY 09/25/16 Albuterol 0.083% Nebulizer Sobeida [Ventolin 0.083% Nebulizer Soln -] 1 amp NEB PRN PRN 11/26/16 Ipratropium/Albuterol Sulfate [Iprat-Albut 0.5-3(2.5) mg/3 ml] 3 ml NEB Q4HWA PRN 11/26/16 Nystatin/Triamcinolone Top Oin [Mycolog II Ointment -] 1 applic TP PRN PRN 11/26 Review of Systems Unable to obtain ROS, reason: unable to obtain Physical Exam Vital Signs: Vital Signs Temperature 99.7 F H 11/27/16 02:00 Pulse Rate 106 H 11/27/16 02:00 Respiratory Rate 18 11/27/16 02:00 Blood Pressure 122/51 11/26/16 21:52 O2 Sat by Pulse Oximetry (%) 98 11/26/16 21:52 Constitutional: Yes: Other (non verbal) Neck: Yes: Supple, Trachea Midline Cardiovascular: Yes: Regular Rate and Rhythm Respiratory: Yes: Poor Air Entry, Rhonchi Gastrointestinal: Yes: Normal Bowel Sounds, Other (peg tube in place) Musculoskeletal: Yes: Other Neurological: Yes: Other Psychiatric: Yes: Other Labs: CBC, BMP 11/27/16 07:00 11/27/16 07:00 Imaging - Results Chest X-ray: Report Reviewed, Image Reviewed Assessment/Plan pneumonia probably due to aspiration plan keep patient npo will start zosyn
[2016-11-27] MEDS ORDERED: ALBUTEROL SO4 2.5/IPRATROPIUM 0.5 INH SOL 3 ML VIAL.NEB. NEB SCH (10:30)
[2016-11-27] MEDS: PIPERACILLIN/TAZOB 3.375 GM 50 ML IVPB SCH ×2 (11:11→17:06)
--- NOTE | 2016-11-27 12:10 | PN ---
Physical Exam: SUBJECTIVE: Patient seen and examined at the bedside. She is non verbal at baseline. OBJECTIVE: scattered rhonchi auscultated on bilateral lung zavala, no wheezing Multiple admissions for PNA with history of intubation On Zosyn as per ID Will stop tube feeds and monitor Vital Signs Period Temp Pulse Resp BP Sys/Herman Pulse Ox Last 24 Hr 99.3 F-99.7 F 89-106 18-20 122-122/51-79 95-99 GENERAL: Non verbal, severe MR, no eye contact HEAD: Normal with no signs of trauma. EYES: PERRL, extraocular movements intact, sclera anicteric, conjunctiva clear. No ptosis. ENT: Ears normal, nares patent, oropharynx clear without exudates, moist mucous membranes. NECK: Trachea midline, full range of motion, supple. LUNGS: Scattered rhonchi ABDOMEN: Soft, nontender, nondistended, PEG tube present EXTREMITIES: + petechial rash of upper and lower extremities, likely chronic NEUROLOGICAL: bed bound, severe cognitive impairment SKIN: + petechial rash of upper and lower extremities, likey chronic Laboratory Results - last 24 hr 11/26/16 11/27/16 11/27/16 20:12 07:00 07:00 WBC 14.4 H RBC 3.46 L Hgb 11.7 Hct 34.2 MCV 98.7 H MCHC 34.3 RDW 15.4 Plt Count 183 MPV 8.3 Neutrophils % 84.0 H Lymphocytes % 11.0 D Monocytes % 4.8 Eosinophils % 0.1 D Basophils % 0.1 Sodium 144 Potassium 3.5 D Chloride 109 H Carbon Dioxide 23 Anion Gap 12 BUN 11 D Creatinine 0.4 L Creat Clearance w eGFR > 60 Random Glucose 94 Calcium 9.2 Phosphorus 3.5 D Magnesium 2.1 D Total Bilirubin 0.3 D AST 32 ALT 58 Alkaline Phosphatase 181 H Total Protein 6.6 Albumin 3.2 L Urine Color Colorless Urine Appearance Clear Urine pH 8.0 D Ur Specific Sage 1.010 Urine Protein Negative Urine Glucose (UA) Negative Urine Ketones Negative Urine Blood 2+ H Urine Nitrite Negative Urine Bilirubin Negative Urine Urobilinogen Negative Ur Leukocyte Esterase Negative Urine RBC 1 Urine WBC None Ur Epithelial Cells Rare Active Medications Generic Name Dose Route Start Last Admin Trade Name Freq PRN Reason Stop Dose Admin Albuterol/Ipratropium 1 amp 11/27/16 12:00 11/27/16 11:30 Duoneb - NEB 1 amp QIDR HARIS Administration Baclofen 5 mg 11/26/16 22:00 11/27/16 06:18 Lioresal - GT 5 mg TID HARIS Administration Cholecalciferol 2,000 unit 11/27/16 10:00 11/27/16 10:23 Vitamin D3 - GT 2,000 unit DAILY HARIS Administration Heparin Sodium (Porcine) 5,000 unit 11/26/16 22:00 11/27/16 06:18 Heparin - SQ 5,000 unit TID HARIS Administration Piperacillin Sod/Tazobactam Sod 50 mls @ 100 mls/hr 11/27/16 11:15 11/27/16 11: 11 Zosyn 3.375gm Ivpb (Pre-Docked) IVPB Not Given Q8H-IV HARIS Protocol Lactulose 10 gm 11/26/16 22:00 11/27/16 06:18 Cephulac (Oral Use) GT 10 gm TID HARIS Administration Levetiracetam 1,500 mg 11/26/16 22:00 11/27/16 10:23 Keppra Oral Solution - GT 1,500 mg BID HARIS Administration Non-Formulary Medication 15 ml 11/27/16 10:00 Vitrum Liquid GT DAILY HARIS Oxcarbazepine 210 mg 11/26/16 22:00 11/27/16 00:00 Trileptal GT 210 mg HS HARIS Administration Oxcarbazepine 180 mg 11/27/16 10:00 11/27/16 10:23 Trileptal GT 180 mg DAILY HARIS Administration Topiramate 25 mg 11/26/16 22:00 11/27/16 10:23 Topamax - NR 25 mg BID HARIS Administration ASSESSMENT/PLAN: Patient is a 26 [address] old female from [facility] with significant medical history of cerebral palsy, severe MR, seizure disorder with multiple seizures per day, PEG tube, spastic quadriparesis, GERD, scoliosis, visual impairment, and frequent pneumonias. She presented to the ER on 11/26/2016 with hypoxia and respiratory distress. As per ER notes, her oxygen saturation was between 86-88% on room air at care home. She was also reported to have increased sputum production. She is not oxygen dependent @ the facility and she has had numerous admission at [facility] for pneumonia with intubation. Patient cannot provide history due to severe MR. She is non communicative at baseline. Pulmonary: Sepsis secondary to Aspiration Pneumonia vs. care home acquired PNA - acute Assessment/Plan: Hypoxic on admission with leukocytosis, tachycardia Lactic acid within normal limits on admission On Zosyn as per ID Hold tube feeds Gentle hydration with D5 NS @50cc/hr Will have RD follow Duonebs scheduled Monitor vitals, maintain aspiration precautions HOB elevated at 45 degrees at all times Oxygen @2 liters Pulmonary consult Neurology: Seizures - chronic Assessment/Plan: Multiple seizures reported Continue home medications Levetiracem level ordered Also on Trileptal, Topamax Seizure precautions F.E.N. Fluids: D5 NS @ 50cc/hr Electrolytes: monitor with bmp daily Nutrition: NPO Prophylaxis: DVT:Heparin: TID GI: protonix ivpb daily Full Code. Visit type - Emergency Visit Emergency Visit: Yes ED Registration Date: 11/26/16 Care time: The patient presented to the Emergency Department on the above date and was hospitalized for further evaluation of their emergent condition. - New Patient This patient is new to me today: Yes Date on this admission: 11/27/16 - Critical Care Critical Care patient: No - Discharge Referral Referred to [facility] Med P.[facility] No
[2016-11-27] MEDS ORDERED: DEXTROSE 5%-NORMAL SALINE 1,000 ML IV SCH (13:00)
[2016-11-27] MEDS ORDERED: POTASSIUM CHLORIDE 10 MEQ in DEXTROSE 5%-NORMAL SALINE 1,000 ML IVPB SCH ×2 (13:00→14:15)
[2016-11-27] MEDS: PANTOPRAZOLE SODIUM 100 ML IVPB SCH (13:27)
--- NOTE | 2016-11-27 13:28 | CON.PULM ---
Consult Consult Specialty:: PULMONARY Referred by:: JASMYN Reason for Consultation:: COUGH/SPUTUM/DECREASED O2 SAT - History of Present Illness History of Present Illness: Patient is a 26 year old female from [facility] with significant medical hx of cerebral palsy, severe MR, seizure disorder with multiple seizures per day , PEG, spastic quadriparesis, GERD, scoliosis, visual impairment, and frequent pneumonia who has been sent to the ED for hypoxia and respiratory distress. Patients O2Sat was 86-88% on room air at the custodial. 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) Pulmonary: Yes: Asthma, Pneumonia - Alcohol/Substance Use Hx Alcohol Use: No - Smoking History Smoking history: Never smoked Have you smoked in the past 12 months: No Aproximately how many cigarettes per day: 0 - Social History Usual Living Arrangement: Care Home History of Recent Travel: No Home Medications - Allergies Allergies/Adverse Reactions: Allergies Allergy/AdvReac Type Severity Reaction Status Date / Time No Known Allergies Allergy Verified 11/26/16 15:41 - Home Medications Home Medications: Ambulatory Orders Baclofen 5 mg GT TID 09/25/16 Cholecalciferol (Vitamin D3) [Vitamin D3] 2,000 unit GT DAILY 09/25/16 Diazepam Rectal Gel [Diastat Rectal Gel -] 10 mg VT PRN PRN 09/25/16 Lactulose 10 gm GT TID 09/25/16 Levetiracetam [levETIRAcetam ORAL SUSPENSION] 1,500 mg GT BID 09/25/16 OXcarbazepine [Trileptal] 180 mg GT DAILY 09/25/16 OXcarbazepine [Trileptal] 210 mg PO HS 09/25/16 Topiramate 25 mg GT BID 09/25/16 Topiramate 200 mg GT BID 09/25/16 Vitrum Liquid 15 ml GT DAILY 09/25/16 Albuterol 0.083% Nebulizer Sobeida [Ventolin 0.083% Nebulizer Soln -] 1 amp NEB PRN PRN 11/26/16 Ipratropium/Albuterol Sulfate [Iprat-Albut 0.5-3(2.5) mg/3 ml] 3 ml NEB Q4HWA PRN 11/26/16 Nystatin/Triamcinolone Top Oin [Mycolog II Ointment -] 1 applic TP PRN PRN 11/26 Review of Systems Unable to obtain ROS, reason: UNABLE Physical Exam Vital Sings: Vital Signs Temperature 99.7 F H 11/27/16 02:00 Pulse Rate 91 H 11/27/16 11:29 Respiratory Rate 18 11/27/16 02:00 Blood Pressure 122/51 11/26/16 21:52 O2 Sat by Pulse Oximetry (%) 95 11/27/16 11:29 Constitutional: Yes: Pallor Eyes: Yes: EOM Intact. No: Ptosis HENT: Yes: Atraumatic Neck: No: Lymphadenopathy Cardiovascular: Yes: S1, S2 Respiratory: Yes: Rhonchi Gastrointestinal: Yes: Soft Edema: No Neurological: Yes: Other (CP) Labs: CBC, BMP 11/27/16 07:00 11/27/16 07:00 REST REVIEWED Imaging - Results Chest X-ray: Image Reviewed Problem List - Problems (1) Pneumonia Code(s): J18.9 - PNEUMONIA, UNSPECIFIED ORGANISM (2) Acute respiratory failure with hypoxia Code(s): J96.01 - ACUTE RESPIRATORY FAILURE WITH HYPOXIA (3) Cerebral palsy Code(s): G80.9 - CEREBRAL PALSY, UNSPECIFIED (4) Functional quadriplegia Code(s): R53.2 - FUNCTIONAL QUADRIPLEGIA (5) Mental retardation Code(s): F79 - UNSPECIFIED INTELLECTUAL DISABILITIES Assessment/Plan PANCULTURE O2 SUPPLEMENTATION SUCTION PRN EMPIRIC ANTIBIOTICS BRONCHODILATORS/HOLD PEG FEEDINGS FOR NOW ID EVAL REVIEWED R TAMMY RAO
[2016-11-27] MEDS ORDERED: LORAZEPAM CARPU-JECT 2 MG/ML DISP.SYRIN IM PRN (15:24)
[2016-11-28] MEDS: ALBUTEROL SO4 2.5/IPRATROPIUM 0.5 INH SOL 3 ML VIAL.NEB. NEB SCH ×5 (00:06→23:30)
[2016-11-28] MEDS: PIPERACILLIN/TAZOB 3.375 GM 50 ML IVPB SCH ×3 (01:44→17:36)
[2016-11-28] MEDS: LACTULOSE 20 GM/30 ML UDC (FOR ORAL USE ONLY) GT SCH ×3 (06:03→22:10)
[2016-11-28] MEDS: HEPARIN NA (PORCINE) 5,000 UNITS/ML 1ML VIAL SQ SCH ×3 (06:03→22:10)
[2016-11-28] MEDS: BACLOFEN 10 MG TABLET (FP) GT SCH ×3 (06:03→22:10)
[2016-11-28 08:56] LABS: BASOPHIL 0.2 % (0-2.0); EOSINOPHIL 0.3 % (0-4.5); MCH 34.2 pg (25.7-33.7); MCHC 34.2 g/dl (32.0-36.0); MEAN CELL VOLUME 100.2 fl (80-96); MEAN PLT VOLUME 8.3 fl (7.5-11.1); NEUTROPHILS 63.5 % (42.8-82.8); PLATELET COUNT 168 K/MM3 (134-434); RDW 15.4 % (11.6-15.6); WHITE BLOOD COUNT 6.8 K/mm3 (4.0-10.0)
[2016-11-28 09:05] LABS: ALBUMIN 2.8 g/dl (3.4-5.0); ALK PHOS 252 U/L (45-117); ANION GAP 9 (8-16); BILIRUBIN,TOTAL 0.3 mg/dL (0.2-1.0); CALCIUM 8.8 mg/dL (8.5-10.1); CO2 21 mmol/L (21-32); COCKROFT - GAULT 171.8445; CREATININE 0.4 mg/dL (0.55-1.02); GLUCOSE,RANDOM 93 mg/dL (74-106); SGOT/AST 90 U/L (15-37); SGPT/ALT 139 U/L (12-78); TOT PROT 5.7 g/dl (6.4-8.2)
[2016-11-28] MEDS ORDERED: DEXTROSE 5%-0.45% SALINE 1,000 ML IV SCH (09:30)
[2016-11-28] MEDS ORDERED: PT OWN MED DRAWER 7, Y5N ONE ×3 (10:17→22:29)
[2016-11-28] MEDS: CHOLECALCIFEROL (VITAMIN D3) 1,000 UNIT TABLET (FP) GT SCH (10:23)
[2016-11-28] MEDS: TOPIRAMATE 25 MG TABLET (FP) NR SCH ×2 (10:23→22:10)
--- NOTE | 2016-11-28 10:34 | PN ---
Physical Exam: SUBJECTIVE: Patient seen and examined. Non verbal @ baseline. OBJECTIVE: ast/alt elevated, will trend Continue to HOLD feeds scattered rhonchi auscultated on bilateral lung zavala, no wheezing Multiple admissions for PNA with history of intubation Vital Signs Period Temp Pulse Resp BP Sys/Herman Pulse Ox Last 24 Hr 97.3 F-98.2 F 91-102 20-20 105-129/62-70 95-95 GENERAL: Non verbal, severe MR, no eye contact HEAD: Normal with no signs of trauma. EYES: PERRL, extraocular movements intact, sclera anicteric, conjunctiva clear. No ptosis. ENT: Ears normal, nares patent, oropharynx clear without exudates, moist mucous membranes. NECK: Trachea midline, full range of motion, supple. LUNGS: Scattered rhonchi ABDOMEN: Soft, nontender, nondistended, PEG tube present EXTREMITIES: + petechial rash of upper and lower extremities, likely chronic NEUROLOGICAL: bed bound, severe cognitive impairment SKIN: + petechial rash of upper and lower extremities, likey chronic Laboratory Results - last 24 hr 11/28/16 11/28/16 06:00 07:30 WBC 6.8 D RBC 2.97 L Hgb 10.2 L D Hct 29.8 L MCV 100.2 H MCHC 34.2 RDW 15.4 Plt Count 168 MPV 8.3 Neutrophils % 63.5 D Lymphocytes % 28.9 D Monocytes % 7.1 Eosinophils % 0.3 D Basophils % 0.2 Sodium 146 H Potassium 3.6 Chloride 116 H Carbon Dioxide 21 Anion Gap 9 BUN 9 Creatinine 0.4 L Creat Clearance w eGFR > 60 Random Glucose 93 Calcium 8.8 Total Bilirubin 0.3 AST 90 H D ALT 139 H D Alkaline Phosphatase 252 H D Total Protein 5.7 L Albumin 2.8 L Active Medications Generic Name Dose Route Start Last Admin Trade Name Freq PRN Reason Stop Dose Admin Albuterol/Ipratropium 1 amp 11/27/16 12:00 11/28/16 06:19 Duoneb - NEB 1 amp QIDR [facility] Administration Baclofen 5 mg 11/26/16 22:00 11/28/16 06:03 Lioresal - GT 5 mg TID [facility] Administration Cholecalciferol 2,000 unit 11/27/16 10:00 11/28/16 10:23 Vitamin D3 - GT 2,000 unit DAILY [facility] Administration Heparin Sodium (Porcine) 5,000 unit 11/26/16 22:00 11/28/16 06:03 Heparin - SQ 5,000 unit TID [facility] Administration Piperacillin Sod/Tazobactam Sod 50 mls @ 100 mls/hr 11/27/16 11:15 11/28/16 10: 25 Zosyn 3.375gm Ivpb (Pre-Docked) IVPB 100 mls/hr Q8H-IV [facility] Administration Protocol Pantoprazole Sodium 100 mls @ 200 mls/hr 11/27/16 13:00 11/27/16 13:27 Protonix 40mg Ivpb (Pre-Docked) IVPB 200 mls/hr DAILY [facility] Administration Dextrose/Sodium Chloride 1,000 mls @ 75 mls/hr 11/28/16 09:30 11/28/16 10:24 D5-1/2ns - IV 75 mls/hr ASDIR [facility] Administration Lactulose 10 gm 11/26/16 22:00 11/28/16 06:03 Cephulac (Oral Use) GT 10 gm TID [facility] Administration Levetiracetam 1,500 mg 11/26/16 22:00 11/27/16 21:44 Keppra Oral Solution - GT 1,500 mg BID [facility] Administration Lorazepam 0.5 mg 11/27/16 15:24 Ativan Injection - IM Q6H PRN seizures Non-Formulary Medication 15 ml 11/27/16 10:00 Vitrum Liquid GT DAILY [facility] Oxcarbazepine 210 mg 11/26/16 22:00 11/27/16 21:47 Trileptal GT 210 mg HS [facility] Administration Oxcarbazepine 180 mg 11/27/16 10:00 11/27/16 10:23 Trileptal GT 180 mg DAILY [facility] Administration Topiramate 25 mg 11/26/16 22:00 11/28/16 10:23 Topamax - NR 25 mg BID [facility] Administration ASSESSMENT/PLAN: Patient is a 26 year old female from [facility] with significant medical history of cerebral palsy, severe MR, seizure disorder with multiple seizures per day, PEG tube, spastic quadriparesis, GERD, scoliosis, visual impairment, and frequent pneumonias. She presented to the ER on 11/26/2016 with hypoxia and respiratory distress. As per ER notes, her oxygen saturation was between 86-88% on room air at care home. She was also reported to have increased sputum production. She is not oxygen dependent @ the facility and she has had numerous admission at [facility] for pneumonia with intubation. Patient cannot provide history due to severe MR. She is non communicative at baseline. Pulmonary: Sepsis secondary to Aspiration Pneumonia vs. care home acquired PNA - acute Assessment/Plan: Hypoxic on admission with leukocytosis, tachycardia Lactic acid within normal limits on admission On Zosyn as per ID Continue to Hold tube feeds-ast/alt now elevated Gentle hydration with D5 1/2NS @75cc/hr Will have RD follow Duonebs scheduled Monitor vitals, maintain aspiration precautions HOB elevated at 45 degrees at all times Oxygen @2 liters Pulmonary following Neurology: Seizures - chronic Assessment/Plan: as per ED, notes pt has multiple seizures at care home Continue home anti seizure medications of Keppra, Trileptal, Topamax Levetiracem levels pending Seizure precautions Ativan 0.5mg prn for breakthrough seizures GI: Elevated ast/alt/alk phos Assessment/Plan: AST 40>90, ALT 66>139, Alk phos 212>252 Will continue to trend and hold feeds Will stop Protonix ivpb as it may be contributing If continues to trend up, consider CT scan of abdomen and GI consult Abdomen soft, non tender, + bowel sounds F.E.N. Fluids: D5 1/2NS @ 75cc/hr Electrolytes: monitor with bmp daily Nutrition: NPO - hold tube feeds Prophylaxis: DVT:Heparin: TID GI: deferred until GI levels stablize Full Code. Visit type - Emergency Visit Emergency Visit: Yes ED Registration Date: 11/26/16 Care time: The patient presented to the Emergency Department on the above date and was hospitalized for further evaluation of their emergent condition. - New Patient This patient is new to me today: No - Critical Care Critical Care patient: No - Discharge Referral Referred to [facility] No
[2016-11-28] MEDS: PANTOPRAZOLE SODIUM 100 ML IVPB SCH (11:17)
[2016-11-28] MEDS: OXcarbazepine 300 MG/5 ML 250 ML BULK BOTTLE GT SCH ×2 (11:24→23:02)
[2016-11-28] MEDS: levETIRAcetam 500 MG/5 ML ORAL SOLUTION (UNIT-DOSE CUPS) GT SCH ×2 (11:24→22:09)
--- NOTE | 2016-11-28 11:41 | PN ---
Progress Note (short form) - Note Progress Note: PULMONARY VSS/AFEBRILE APPEARS COMFORTABLE MUCH LESS COUGHING PALE/ANICTERIC LESS B/L RHONCHI S1S2 BS+ PEG CONTRACTURES UPPER EXT LABS/MEDS/NOTES/IMAGES/MICRO REVIEWED LFT'S/ALK PHOS ELEVATED (THESE HAVE BEEN ELEVATED IN PAST) PAST WORK UPS WITH ULTRASOUNDS HAVE BEEN UNREVEALING (1) Pneumonia Code(s): J18.9 - PNEUMONIA, UNSPECIFIED ORGANISM (2) Acute respiratory failure with hypoxia Code(s): J96.01 - ACUTE RESPIRATORY FAILURE WITH HYPOXIA (3) Cerebral palsy Code(s): G80.9 - CEREBRAL PALSY, UNSPECIFIED (4) Functional quadriplegia Code(s): R53.2 - FUNCTIONAL QUADRIPLEGIA (5) Mental retardation Code(s): F79 - UNSPECIFIED INTELLECTUAL DISABILITIES Assessment/Plan PANCULTURE NEGATIVE O2 SUPPLEMENTATION SUCTION PRN ANTIBIOTICS BRONCHODILATORS/CONTINUE PEG FEEDINGS ID EVAL REVIEWED SUGGEST GI INPUT Darnell MUNOZ MD Problem List - Problems (1) Pneumonia Code(s): J18.9 - PNEUMONIA, UNSPECIFIED ORGANISM (2) Acute respiratory failure with hypoxia Code(s): J96.01 - ACUTE RESPIRATORY FAILURE WITH HYPOXIA (3) Cerebral palsy Code(s): G80.9 - CEREBRAL PALSY, UNSPECIFIED (4) Functional quadriplegia Code(s): R53.2 - FUNCTIONAL QUADRIPLEGIA (5) Mental retardation Code(s): F79 - UNSPECIFIED INTELLECTUAL DISABILITIES
--- NOTE | 2016-11-28 12:06 | PN ---
Progress Note, Physician History of Present Illness: better than yesterday calmer wbc normalized - Current Medication List Current Medications: Active Medications Albuterol/Ipratropium (Duoneb -) 1 amp NEB QIDR [facility] Last Admin: 11/28/16 06:19 Dose: 1 amp Baclofen (Lioresal -) 5 mg GT TID [facility] Last Admin: 11/28/16 06:03 Dose: 5 mg Cholecalciferol (Vitamin D3 -) 2,000 unit GT DAILY [facility] Last Admin: 11/28/16 10:23 Dose: 2,000 unit Heparin Sodium (Porcine) (Heparin -) 5,000 unit SQ TID [facility] Last Admin: 11/28/16 06:03 Dose: 5,000 unit Piperacillin Sod/Tazobactam Sod (Zosyn 3.375gm Ivpb (Pre-Docked)) 50 mls @ 100 mls/hr IVPB Q8H-IV [facility] PRN Reason: Protocol Last Admin: 11/28/16 10:25 Dose: 100 mls/hr Dextrose/Sodium Chloride (D5-1/2ns -) 1,000 mls @ 75 mls/hr IV ASDIR [facility] Last Admin: 11/28/16 10:24 Dose: 75 mls/hr Lactulose (Cephulac (Oral Use)) 10 gm GT TID [facility] Last Admin: 11/28/16 06:03 Dose: 10 gm Levetiracetam (Keppra Oral Solution -) 1,500 mg GT BID [facility] Last Admin: 11/28/16 11:24 Dose: 1,500 mg Lorazepam (Ativan Injection -) 0.5 mg IM Q6H PRN PRN Reason: seizures Non-Formulary Medication (Vitrum Liquid) 15 ml GT DAILY [facility] Oxcarbazepine (Trileptal) 210 mg GT HS [facility] Last Admin: 11/27/16 21:47 Dose: 210 mg Oxcarbazepine (Trileptal) 180 mg GT DAILY [facility] Last Admin: 11/28/16 11:24 Dose: 180 mg Topiramate (Topamax -) 25 mg NR BID [facility] Last Admin: 11/28/16 10:23 Dose: 25 mg - Objective Vital Signs: Vital Signs Temperature 97.5 F L 11/28/16 06:00 Pulse Rate 82 11/28/16 11:24 Respiratory Rate 20 11/27/16 21:00 Blood Pressure 105/62 11/28/16 06:00 O2 Sat by Pulse Oximetry (%) 96 11/28/16 11:24 Constitutional: Yes: Calm Cardiovascular: Yes: Regular Rate and Rhythm Respiratory: Yes: Poor Air Entry, Rhonchi Gastrointestinal: Yes: Soft, Other (fedding tube in place) Musculoskeletal: Yes: Other Extremities: Yes: Other (contractures) Neurological: Yes: Alert, Other Labs: CBC, BMP 11/28/16 06:00 11/28/16 07:30 Assessment/Plan (1) Pneumonia Code(s): J18.9 - PNEUMONIA, UNSPECIFIED ORGANISM (2) Acute respiratory failure with hypoxia Code(s): J96.01 - ACUTE RESPIRATORY FAILURE WITH HYPOXIA (3) Cerebral palsy Code(s): G80.9 - CEREBRAL PALSY, UNSPECIFIED (4) Functional quadriplegia Code(s): R53.2 - FUNCTIONAL QUADRIPLEGIA (5) Mental retardation Code(s): F79 - UNSPECIFIED INTELLECTUAL DISABILITIES plan continue abx we should be able to resume her TF cx results noted rest as per primary team
[2016-11-28] MEDS: DEXTROSE 5%-0.45% SALINE 1,000 ML IV SCH (22:26)
[2016-11-29] MEDS: PIPERACILLIN/TAZOB 3.375 GM 50 ML IVPB SCH ×3 (01:40→17:31)
[2016-11-29] MEDS: LACTULOSE 20 GM/30 ML UDC (FOR ORAL USE ONLY) GT SCH ×3 (05:49→21:47)
[2016-11-29] MEDS: BACLOFEN 10 MG TABLET (FP) GT SCH ×3 (05:50→21:47)
[2016-11-29] MEDS: HEPARIN NA (PORCINE) 5,000 UNITS/ML 1ML VIAL SQ SCH ×3 (05:50→21:47)
[2016-11-29] MEDS: ALBUTEROL SO4 2.5/IPRATROPIUM 0.5 INH SOL 3 ML VIAL.NEB. NEB SCH ×3 (06:40→17:20)
[2016-11-29 07:49] LABS: BASOPHIL 0.4 % (0-2.0); EOSINOPHIL 0.6 % (0-4.5); MCHC 34.1 g/dl (32.0-36.0); MEAN CELL VOLUME 99.5 fl (80-96); MEAN PLT VOLUME 8.2 fl (7.5-11.1); NEUTROPHILS 43.6 % (42.8-82.8); PLATELET COUNT 164 K/MM3 (134-434); RDW 15.6 % (11.6-15.6); WHITE BLOOD COUNT 4.9 K/mm3 (4.0-10.0)
[2016-11-29 08:17] LABS: ALBUMIN 2.7 g/dl (3.4-5.0); ANION GAP 10 (8-16); CALCIUM 8.3 mg/dL (8.5-10.1); CO2 22 mmol/L (21-32); GLUCOSE,RANDOM 100 mg/dL (74-106); SGOT/AST 50 U/L (15-37)
[2016-11-29 08:20] LABS: ALK PHOS 240 U/L (45-117); BILIRUBIN,TOTAL 0.2 mg/dL (0.2-1.0); COCKROFT - GAULT 171.8445; CREATININE 0.4 mg/dL (0.55-1.02); SGPT/ALT 111 U/L (12-78); TOT PROT 5.7 g/dl (6.4-8.2)
[2016-11-29] MEDS ORDERED: PT OWN MED DRAWER 7, Y5N ONE ×2 (10:16→21:45)
[2016-11-29] MEDS: DEXTROSE 5%-0.45% SALINE 1,000 ML IV SCH ×2 (10:22→22:11)
[2016-11-29] MEDS: TOPIRAMATE 25 MG TABLET (FP) NR SCH ×2 (10:24→21:47)
[2016-11-29] MEDS: CHOLECALCIFEROL (VITAMIN D3) 1,000 UNIT TABLET (FP) GT SCH (10:24)
[2016-11-29] MEDS: levETIRAcetam 500 MG/5 ML ORAL SOLUTION (UNIT-DOSE CUPS) GT SCH ×2 (10:25→21:47)
[2016-11-29] MEDS: FERROUS GLUC GT SCH (10:25)
[2016-11-29] MEDS: MULTIVIT MINERALS GT SCH (10:25)
[2016-11-29] MEDS: OXcarbazepine 300 MG/5 ML 250 ML BULK BOTTLE GT SCH ×2 (10:29→22:05)
--- NOTE | 2016-11-29 11:40 | PN ---
Progress Note (short form) - Note Progress Note: PULMONARY Awake, appears comfortable. Normothermic. Last Vital Signs Temp Pulse Resp BP Pulse Ox 98.2 F 89 20 106/55 93 L 11/29/16 07:50 11/29/16 11:07 11/29/16 07:50 11/29/16 07:50 11/29/16 11:07 Gen: breathing nonlabored Heart: RRR Lung: scattered rhonchi Abd: soft, nontender Ext: no edema CBC, BMP 11/29/16 06:20 11/29/16 06:20 Active Medications Albuterol/Ipratropium (Duoneb -) 1 amp NEB QIDR [facility] Last Admin: 11/29/16 11:08 Dose: 1 amp Baclofen (Lioresal -) 5 mg GT TID [facility] Last Admin: 11/29/16 05:50 Dose: 5 mg Cholecalciferol (Vitamin D3 -) 2,000 unit GT DAILY [facility] Last Admin: 11/29/16 10:24 Dose: 2,000 unit Heparin Sodium (Porcine) (Heparin -) 5,000 unit SQ TID [facility] Last Admin: 11/29/16 05:50 Dose: 5,000 unit Piperacillin Sod/Tazobactam Sod (Zosyn 3.375gm Ivpb (Pre-Docked)) 50 mls @ 100 mls/hr IVPB Q8H-IV [facility] PRN Reason: Protocol Last Admin: 11/29/16 10:24 Dose: 100 mls/hr Dextrose/Sodium Chloride (D5-1/2ns -) 1,000 mls @ 100 mls/hr IV ASDIR [facility] Last Admin: 11/29/16 10:22 Dose: 100 mls/hr Lactulose (Cephulac (Oral Use)) 10 gm GT TID [facility] Last Admin: 11/29/16 05:49 Dose: 10 gm Levetiracetam (Keppra Oral Solution -) 1,500 mg GT BID [facility] Last Admin: 11/29/16 10:25 Dose: 1,500 mg Lorazepam (Ativan Injection -) 0.5 mg IM Q6H PRN PRN Reason: seizures Oxcarbazepine (Trileptal) 210 mg GT HS [facility] Last Admin: 11/28/16 23:02 Dose: 210 mg Oxcarbazepine (Trileptal) 180 mg GT DAILY [facility] Last Admin: 11/29/16 10:29 Dose: 180 mg Topiramate (Topamax -) 25 mg NR BID [facility] Last Admin: 11/29/16 10:24 Dose: 25 mg A/P Pneumonia likely aspiration Acute Hypoxic Respiratory Failure improving Mental Retardation Cerebral Palsy Seizure Disorder - antibiotics per ID - O2 to keep SpO2 >90% - aspiration/seizure precautions - DVT prophylaxis
[2016-11-29 14:18] LABS: HEP B SURFACE AB Reactive (.)
--- NOTE | 2016-11-29 17:25 | PN ---
Physical Exam: SUBJECTIVE: Patient seen and examined OBJECTIVE: Vital Signs Period Temp Pulse Resp BP Sys/Herman Pulse Ox Last 24 Hr 95.9 F-98.6 F 82-96 18-21 100-118/50-68 93-96 GENERAL/NEURO: The patient is awake. Nonverbal at baseline. HEAD: Normal with no signs of trauma. EYES: PERRL, sclera anicteric, conjunctiva clear. No ptosis. LUNGS: Coarse breath sounds throughout, no wheezing. No accessory muscle use. HEART: Regular rate and rhythm, S1, S2 without murmur, rub or gallop. ABDOMEN: Soft, nontender, nondistended, normoactive bowel sounds, no guarding, no rebound, no hepatosplenomegaly, no masses. PEG tube in situ. Surrounding skin intact, no erythema, no warmth, no sign of infection EXTREMITIES: 2+ pulses, warm, well-perfused, no edema. All four extremities are contracted Laboratory Results - last 24 hr 11/28/16 11/28/16 11/29/16 09:28 16:15 06:20 WBC 4.9 RBC 2.85 L Hgb 9.7 L Hct 28.4 L MCV 99.5 H MCHC 34.1 RDW 15.6 Plt Count 164 MPV 8.2 Neutrophils % 43.6 D Lymphocytes % 46.0 H D Monocytes % 9.4 Eosinophils % 0.6 D Basophils % 0.4 Sodium Potassium Chloride Carbon Dioxide Anion Gap BUN Creatinine Creat Clearance w eGFR Random Glucose Lactic Acid 0.6 Calcium Total Bilirubin AST ALT Alkaline Phosphatase Total Protein Albumin Hepatitis A Ab Total Negative Hep Bs Antigen Negative Hep Bs Antibody Reactive Hep B Core Total Ab Negative 11/29/16 06:20 WBC RBC Hgb Hct MCV MCHC RDW Plt Count MPV Neutrophils % Lymphocytes % Monocytes % Eosinophils % Basophils % Sodium 143 Potassium 3.5 Chloride 111 H Carbon Dioxide 22 Anion Gap 10 BUN 6 L D Creatinine 0.4 L Creat Clearance w eGFR > 60 Random Glucose 100 Lactic Acid Calcium 8.3 L Total Bilirubin 0.2 D AST 50 H D ALT 111 H D Alkaline Phosphatase 240 H Total Protein 5.7 L Albumin 2.7 L Hepatitis A Ab Total Hep Bs Antigen Hep Bs Antibody Hep B Core Total Ab Active Medications Generic Name Dose Route Start Last Admin Trade Name Freq PRN Reason Stop Dose Admin Albuterol/Ipratropium 1 amp 11/27/16 12:00 11/29/16 11:08 Duoneb - NEB 1 amp QIDR [facility] Administration Baclofen 5 mg 11/26/16 22:00 11/29/16 13:59 Lioresal - GT 5 mg TID [facility] Administration Cholecalciferol 2,000 unit 11/27/16 10:00 11/29/16 10:24 Vitamin D3 - GT 2,000 unit DAILY [facility] Administration Heparin Sodium (Porcine) 5,000 unit 11/26/16 22:00 11/29/16 13:59 Heparin - SQ 5,000 unit TID [facility] Administration Piperacillin Sod/Tazobactam Sod 50 mls @ 100 mls/hr 11/27/16 11:15 11/29/16 10: 24 Zosyn 3.375gm Ivpb (Pre-Docked) IVPB 100 mls/hr Q8H-IV [facility] Administration Protocol Dextrose/Sodium Chloride 1,000 mls @ 100 mls/hr 11/28/16 15:38 11/29/16 10:22 D5-1/2ns - IV 100 mls/hr ASDIR [facility] Administration Lactulose 10 gm 11/26/16 22:00 11/29/16 13:59 Cephulac (Oral Use) GT 10 gm TID [facility] Administration Levetiracetam 1,500 mg 11/26/16 22:00 11/29/16 10:25 Keppra Oral Solution - GT 1,500 mg BID [facility] Administration Lorazepam 0.5 mg 11/27/16 15:24 Ativan Injection - IM Q6H PRN seizures Oxcarbazepine 210 mg 11/26/16 22:00 11/28/16 23:02 Trileptal GT 210 mg HS [facility] Administration Oxcarbazepine 180 mg 11/27/16 10:00 11/29/16 10:29 Trileptal GT 180 mg DAILY [facility] Administration Topiramate 25 mg 11/26/16 22:00 11/29/16 10:24 Topamax - NR 25 mg BID [facility] Administration ASSESSMENT/PLAN 26 year-old female, [facility], with a PMH of cerebral palsy, severe mental retardation, spastic quadriplegia, GERD, seizure disorder, recurrent pneumonia, and PEG tube. Sepsis secondary to pneumonia, aspiration v. HCAP --was hypoxic on admission with leukocytosis and tachycardia, these symptoms have resolved --continue Zosyn (day #3) Seizure disorder --stable --continue Keppra, trileptal, Topamax, ativan PRN Cerebral palsy Spastic quadriplegia --continue baclofen Functional quadriplegia --fully dependent for all ADLs Elevated transaminases --trending down F/E/N Fluids:D51/2 @ 100mL/hr Electrolytes: replete as indicated Nutrition: need input from registered associate to start tube feeds tomorrow DVT prophylaxis: subq heparin Dispo: continues to require inpatient care. Full Code. Visit type - Emergency Visit Emergency Visit: Yes ED Registration Date: 11/26/16 Care time: The patient presented to the Emergency Department on the above date and was hospitalized for further evaluation of their emergent condition. - New Patient This patient is new to me today: Yes Date on this admission: 11/29/16 - Critical Care Critical Care patient: No
[2016-11-30] MEDS: ALBUTEROL SO4 2.5/IPRATROPIUM 0.5 INH SOL 3 ML VIAL.NEB. NEB SCH ×5 (00:08→23:25)
[2016-11-30] MEDS: PIPERACILLIN/TAZOB 3.375 GM 50 ML IVPB SCH ×3 (01:30→17:38)
[2016-11-30] MEDS: BACLOFEN 10 MG TABLET (FP) GT SCH ×3 (05:48→22:23)
[2016-11-30] MEDS: LACTULOSE 20 GM/30 ML UDC (FOR ORAL USE ONLY) GT SCH ×3 (05:48→22:25)
[2016-11-30] MEDS: HEPARIN NA (PORCINE) 5,000 UNITS/ML 1ML VIAL SQ SCH ×3 (05:49→22:25)
[2016-11-30 07:10] LABS: BASOPHIL 0.2 % (0-2.0); EOSINOPHIL 0.3 % (0-4.5); MCH 33.9 pg (25.7-33.7); MEAN CELL VOLUME 99.5 fl (80-96); MEAN PLT VOLUME 7.8 fl (7.5-11.1); NEUTROPHILS 49.8 % (42.8-82.8); PLATELET COUNT 157 K/MM3 (134-434); RDW 15.1 % (11.6-15.6); WHITE BLOOD COUNT 6.1 K/mm3 (4.0-10.0)
[2016-11-30 07:38] LABS: ALBUMIN 2.6 g/dl (3.4-5.0); ANION GAP 10 (8-16); CALCIUM 8.1 mg/dL (8.5-10.1); CO2 22 mmol/L (21-32); GLUCOSE,RANDOM 104 mg/dL (74-106); MAGNESIUM 1.5 mg/dL (1.8-2.4); PHOSPHOROUS 4.1 mg/dL (2.5-4.9); SGOT/AST 50 U/L (15-37)
[2016-11-30 07:40] LABS: ALK PHOS 233 U/L (45-117); BILIRUBIN,TOTAL 0.3 mg/dL (0.2-1.0); CREATININE 0.5 mg/dL (0.55-1.02); SGPT/ALT 100 U/L (12-78); TOT PROT 5.4 g/dl (6.4-8.2)
[2016-11-30] MEDS ORDERED: POTASSIUM CHLORIDE ORAL LIQUID 20 MEQ/15 ML GT SCH (08:00)
[2016-11-30] MEDS ORDERED: MAGNESIUM SULF 50% (8.12 MEQ/2 ML-1 GM VIAL) IVPB ONE (08:45)
[2016-11-30] MEDS ORDERED: PT OWN MED DRAWER 7, Y5N ONE (09:49)
[2016-11-30] MEDS: CHOLECALCIFEROL (VITAMIN D3) 1,000 UNIT TABLET (FP) GT SCH (09:55)
[2016-11-30] MEDS: POTASSIUM CHLORIDE ORAL LIQUID 20 MEQ/15 ML GT SCH ×2 (09:55→14:52)
[2016-11-30] MEDS: TOPIRAMATE 25 MG TABLET (FP) NR SCH ×2 (09:55→22:24)
[2016-11-30] MEDS: levETIRAcetam 500 MG/5 ML ORAL SOLUTION (UNIT-DOSE CUPS) GT SCH ×2 (09:55→22:23)
[2016-11-30] MEDS: MULTIVIT MINERALS GT SCH (09:56)
[2016-11-30] MEDS: OXcarbazepine 300 MG/5 ML 250 ML BULK BOTTLE GT SCH ×2 (09:56→22:24)
[2016-11-30] MEDS: FERROUS GLUC GT SCH (09:56)
--- NOTE | 2016-11-30 11:14 | PN ---
Progress Note (short form) - Note Progress Note: PULMONARY No fevers recorded, appears comfortable. Last Vital Signs Temp Pulse Resp BP Pulse Ox 97.6 F 90 20 114/75 93 L 11/30/16 09:22 11/30/16 09:22 11/30/16 09:22 11/30/16 09:22 11/29/16 21:00 Gen: breathing nonlabored Heart: RRR Lung: scattered rhonchi Abd: soft, nontender Ext: no edema CBC, BMP 11/30/16 06:05 11/30/16 06:05 Active Medications Albuterol/Ipratropium (Duoneb -) 1 amp NEB QIDR [facility] Last Admin: 11/30/16 06:34 Dose: 1 amp Baclofen (Lioresal -) 5 mg GT TID [facility] Last Admin: 11/30/16 05:48 Dose: 5 mg Cholecalciferol (Vitamin D3 -) 2,000 unit GT DAILY [facility] Last Admin: 11/30/16 09:55 Dose: 2,000 unit Heparin Sodium (Porcine) (Heparin -) 5,000 unit SQ TID [facility] Last Admin: 11/30/16 05:49 Dose: 5,000 unit Piperacillin Sod/Tazobactam Sod (Zosyn 3.375gm Ivpb (Pre-Docked)) 50 mls @ 100 mls/hr IVPB Q8H-IV [facility] PRN Reason: Protocol Last Admin: 11/30/16 09:56 Dose: 100 mls/hr Dextrose/Sodium Chloride (D5-1/2ns -) 1,000 mls @ 100 mls/hr IV ASDIR [facility] Last Admin: 11/29/16 22:11 Dose: 100 mls/hr Lactulose (Cephulac (Oral Use)) 10 gm GT TID [facility] Last Admin: 11/30/16 05:48 Dose: 10 gm Levetiracetam (Keppra Oral Solution -) 1,500 mg GT BID [facility] Last Admin: 11/30/16 09:55 Dose: 1,500 mg Lorazepam (Ativan Injection -) 0.5 mg IM Q6H PRN PRN Reason: seizures Oxcarbazepine (Trileptal) 210 mg GT HS [facility] Last Admin: 11/29/16 22:05 Dose: 210 mg Oxcarbazepine (Trileptal) 180 mg GT DAILY [facility] Last Admin: 11/30/16 09:56 Dose: 180 mg Potassium Chloride (Potassium Chloride Oral Liquid) 40 meq GT Q6H [facility] Stop: 11/30/16 15:46 Last Admin: 11/30/16 09:55 Dose: 40 meq Topiramate (Topamax -) 25 mg NR BID [facility] Last Admin: 11/30/16 09:55 Dose: 25 mg A/P Pneumonia likely aspiration Acute Hypoxic Respiratory Failure improving Mental Retardation Cerebral Palsy Seizure Disorder - antibiotics per ID - O2 to keep SpO2 >90% - aspiration/seizure precautions - DVT prophylaxis
--- NOTE | 2016-11-30 11:47 | PN ---
Progress Note, Physician History of Present Illness: patient stable looks much better opens eyes - Current Medication List Current Medications: Active Medications Albuterol/Ipratropium (Duoneb -) 1 amp NEB QIDR [facility] Last Admin: 11/30/16 11:23 Dose: 1 amp Baclofen (Lioresal -) 5 mg GT TID [facility] Last Admin: 11/30/16 05:48 Dose: 5 mg Cholecalciferol (Vitamin D3 -) 2,000 unit GT DAILY [facility] Last Admin: 11/30/16 09:55 Dose: 2,000 unit Heparin Sodium (Porcine) (Heparin -) 5,000 unit SQ TID [facility] Last Admin: 11/30/16 05:49 Dose: 5,000 unit Piperacillin Sod/Tazobactam Sod (Zosyn 3.375gm Ivpb (Pre-Docked)) 50 mls @ 100 mls/hr IVPB Q8H-IV [facility] PRN Reason: Protocol Last Admin: 11/30/16 09:56 Dose: 100 mls/hr Dextrose/Sodium Chloride (D5-1/2ns -) 1,000 mls @ 100 mls/hr IV ASDIR [facility] Last Admin: 11/29/16 22:11 Dose: 100 mls/hr Lactulose (Cephulac (Oral Use)) 10 gm GT TID [facility] Last Admin: 11/30/16 05:48 Dose: 10 gm Levetiracetam (Keppra Oral Solution -) 1,500 mg GT BID [facility] Last Admin: 11/30/16 09:55 Dose: 1,500 mg Lorazepam (Ativan Injection -) 0.5 mg IM Q6H PRN PRN Reason: seizures Oxcarbazepine (Trileptal) 210 mg GT HS [facility] Last Admin: 11/29/16 22:05 Dose: 210 mg Oxcarbazepine (Trileptal) 180 mg GT DAILY [facility] Last Admin: 11/30/16 09:56 Dose: 180 mg Potassium Chloride (Potassium Chloride Oral Liquid) 40 meq GT Q6H [facility] Stop: 11/30/16 15:46 Last Admin: 11/30/16 09:55 Dose: 40 meq Topiramate (Topamax -) 25 mg NR BID [facility] Last Admin: 11/30/16 09:55 Dose: 25 mg - Objective Vital Signs: Vital Signs Temperature 97.6 F 11/30/16 09:22 Pulse Rate 90 11/30/16 09:22 Respiratory Rate 20 11/30/16 09:22 Blood Pressure 114/75 11/30/16 09:22 O2 Sat by Pulse Oximetry (%) 93 L 11/29/16 21:00 Constitutional: Yes: Calm Cardiovascular: Yes: Regular Rate and Rhythm Respiratory: Yes: Poor Air Entry, Rhonchi, Other (secretions improving) Gastrointestinal: Yes: Normal Bowel Sounds, Soft, Other (peg in place) Musculoskeletal: Yes: Other Extremities: Yes: Other Neurological: Yes: Other Labs: CBC, BMP 11/30/16 06:05 11/30/16 06:05 Assessment/Plan (1) Pneumonia Code(s): J18.9 - PNEUMONIA, UNSPECIFIED ORGANISM (2) Acute respiratory failure with hypoxia Code(s): J96.01 - ACUTE RESPIRATORY FAILURE WITH HYPOXIA (3) Cerebral palsy Code(s): G80.9 - CEREBRAL PALSY, UNSPECIFIED (4) Functional quadriplegia Code(s): R53.2 - FUNCTIONAL QUADRIPLEGIA (5) Mental retardation Code(s): F79 - UNSPECIFIED INTELLECTUAL DISABILITIES plan continue abx continue suctioning rest as per primary team monitor for fevers
--- NOTE | 2016-11-30 15:44 | PN ---
Progress Note, Physician History of Present Illness: stable much better - Current Medication List Current Medications: Active Medications Albuterol/Ipratropium (Duoneb -) 1 amp NEB QIDR [facility] Last Admin: 11/30/16 11:23 Dose: 1 amp Baclofen (Lioresal -) 5 mg GT TID [facility] Last Admin: 11/30/16 14:38 Dose: 5 mg Cholecalciferol (Vitamin D3 -) 2,000 unit GT DAILY [facility] Last Admin: 11/30/16 09:55 Dose: 2,000 unit Heparin Sodium (Porcine) (Heparin -) 5,000 unit SQ TID [facility] Last Admin: 11/30/16 14:38 Dose: 5,000 unit Piperacillin Sod/Tazobactam Sod (Zosyn 3.375gm Ivpb (Pre-Docked)) 50 mls @ 100 mls/hr IVPB Q8H-IV [facility] PRN Reason: Protocol Last Admin: 11/30/16 09:56 Dose: 100 mls/hr Dextrose/Sodium Chloride (D5-1/2ns -) 1,000 mls @ 100 mls/hr IV ASDIR [facility] Last Admin: 11/29/16 22:11 Dose: 100 mls/hr Lactulose (Cephulac (Oral Use)) 10 gm GT TID [facility] Last Admin: 11/30/16 14:37 Dose: 10 gm Levetiracetam (Keppra Oral Solution -) 1,500 mg GT BID [facility] Last Admin: 11/30/16 09:55 Dose: 1,500 mg Oxcarbazepine (Trileptal) 210 mg GT HS [facility] Last Admin: 11/29/16 22:05 Dose: 210 mg Oxcarbazepine (Trileptal) 180 mg GT DAILY [facility] Last Admin: 11/30/16 09:56 Dose: 180 mg Potassium Chloride (Potassium Chloride Oral Liquid) 40 meq GT Q6H [facility] Stop: 11/30/16 15:46 Last Admin: 11/30/16 14:52 Dose: 40 meq Topiramate (Topamax -) 25 mg NR BID [facility] Last Admin: 11/30/16 09:55 Dose: 25 mg - Objective Vital Signs: Vital Signs Temperature 97.6 F 11/30/16 14:33 Pulse Rate 60 11/30/16 14:33 Respiratory Rate 20 11/30/16 09:22 Blood Pressure 99/66 11/30/16 14:33 O2 Sat by Pulse Oximetry (%) 95 11/30/16 09:00 Constitutional: Yes: No Distress, Calm Cardiovascular: Yes: Regular Rate and Rhythm Respiratory: Yes: On Nasal O2, Rhonchi, Other (secretions much less) Gastrointestinal: Yes: Normal Bowel Sounds, Soft Musculoskeletal: Yes: Other Extremities: Yes: Other Integumentary: Yes: Other Neurological: Yes: Alert, Other Labs: CBC, BMP 11/30/16 06:05 11/30/16 06:05 Assessment/Plan (1) Pneumonia Code(s): J18.9 - PNEUMONIA, UNSPECIFIED ORGANISM (2) Acute respiratory failure with hypoxia Code(s): J96.01 - ACUTE RESPIRATORY FAILURE WITH HYPOXIA (3) Cerebral palsy Code(s): G80.9 - CEREBRAL PALSY, UNSPECIFIED (4) Functional quadriplegia Code(s): R53.2 - FUNCTIONAL QUADRIPLEGIA (5) Mental retardation Code(s): F79 - UNSPECIFIED INTELLECTUAL DISABILITIES plan continue abx continue suctioning rest as per primary team monitor for fevers
[2016-11-30] MEDS: DEXTROSE 5%-0.45% SALINE 1,000 ML IV SCH (15:50)
--- NOTE | 2016-11-30 17:06 | PN ---
Physical Exam: SUBJECTIVE: Patient seen and examined at bedside. OBJECTIVE: Vital Signs Period Temp Pulse Resp BP Sys/Herman Pulse Ox Last 24 Hr 97.6 F-98.7 F 60-90 20-20 99-118/64-75 93-95 GENERAL/NEURO: The patient is awake. Nonverbal at baseline. HEAD: Normal with no signs of trauma. EYES: PERRL, sclera anicteric, conjunctiva clear. No ptosis. LUNGS: Mild expiratory wheezing. No accessory muscle use. HEART: Regular rate and rhythm, S1, S2 without murmur, rub or gallop. ABDOMEN: Soft, nontender, nondistended, normoactive bowel sounds, no guarding, no rebound, no hepatosplenomegaly, no masses. PEG tube in situ. Surrounding skin intact, no erythema, no warmth, no sign of infection EXTREMITIES: 2+ pulses, warm, well-perfused, no edema. All four extremities are contracted Laboratory Results - last 24 hr 11/28/16 11/30/16 11/30/16 07:30 06:05 06:05 WBC 6.1 RBC 2.81 L Hgb 9.5 L Hct 28.0 L MCV 99.5 H MCHC 34.0 RDW 15.1 Plt Count 157 MPV 7.8 Neutrophils % 49.8 Lymphocytes % 38.9 Monocytes % 10.8 H Eosinophils % 0.3 Basophils % 0.2 Sodium 145 Potassium 3.1 L Chloride 113 H Carbon Dioxide 22 Anion Gap 10 BUN 3 L D Creatinine 0.5 L D Creat Clearance w eGFR > 60 Random Glucose 104 Calcium 8.1 L Phosphorus 4.1 Magnesium 1.5 L D Total Bilirubin 0.3 D AST 50 H ALT 100 H Alkaline Phosphatase 233 H Total Protein 5.4 L Albumin 2.6 L Levetiracetam 45.6 H Active Medications Generic Name Dose Route Start Last Admin Trade Name Freq PRN Reason Stop Dose Admin Albuterol/Ipratropium 1 amp 11/27/16 12:00 11/30/16 11:23 Duoneb - NEB 1 amp QIDR [facility] Administration Baclofen 5 mg 11/26/16 22:00 11/30/16 14:38 Lioresal - GT 5 mg TID [facility] Administration Cholecalciferol 2,000 unit 11/27/16 10:00 11/30/16 09:55 Vitamin D3 - GT 2,000 unit DAILY [facility] Administration Heparin Sodium (Porcine) 5,000 unit 11/26/16 22:00 11/30/16 14:38 Heparin - SQ 5,000 unit TID [facility] Administration Piperacillin Sod/Tazobactam Sod 50 mls @ 100 mls/hr 11/27/16 11:15 11/30/16 09: 56 Zosyn 3.375gm Ivpb (Pre-Docked) IVPB 100 mls/hr Q8H-IV [facility] Administration Protocol Dextrose/Sodium Chloride 1,000 mls @ 100 mls/hr 11/28/16 15:38 11/30/16 15:50 D5-1/2ns - IV 100 mls/hr ASDIR [facility] Administration Lactulose 10 gm 11/26/16 22:00 11/30/16 14:37 Cephulac (Oral Use) GT 10 gm TID [facility] Administration Levetiracetam 1,500 mg 11/26/16 22:00 11/30/16 09:55 Keppra Oral Solution - GT 1,500 mg BID [facility] Administration Oxcarbazepine 210 mg 11/26/16 22:00 11/29/16 22:05 Trileptal GT 210 mg HS [facility] Administration Oxcarbazepine 180 mg 11/27/16 10:00 11/30/16 09:56 Trileptal GT 180 mg DAILY [facility] Administration Topiramate 25 mg 11/26/16 22:00 11/30/16 09:55 Topamax - NR 25 mg BID [facility] Administration ASSESSMENT/PLAN 26 year-old female, [place] resident, with a PMH of cerebral palsy, severe mental retardation, spastic quadriplegia, GERD, seizure disorder, recurrent pneumonia, and PEG tube. Sepsis secondary to pneumonia, aspiration v. HCAP --was hypoxic on admission with leukocytosis and tachycardia, these symptoms have resolved --continue Zosyn (day #4) Seizure disorder --stable --continue Keppra, trileptal, Topamax, ativan PRN Cerebral palsy Spastic quadriplegia --continue baclofen Functional quadriplegia --fully dependent for all ADLs Elevated transaminases --continue to trend down F/E/N Fluids/Nutrition: Promote @ 20mL/hr start, titrate to 40mL/hr; 15mL/hr free water; d/c IV fluids Electrolytes: replete as indicated DVT prophylaxis: subq heparin Dispo: continues to require inpatient care. Full Code. Visit type - Emergency Visit Emergency Visit: Yes ED Registration Date: 11/26/16 Care time: The patient presented to the Emergency Department on the above date and was hospitalized for further evaluation of their emergent condition. - New Patient This patient is new to me today: No - Critical Care Critical Care patient: No
[2016-12-01] MEDS: PIPERACILLIN/TAZOB 3.375 GM 50 ML IVPB SCH ×3 (01:22→17:12)
[2016-12-01] MEDS: HEPARIN NA (PORCINE) 5,000 UNITS/ML 1ML VIAL SQ SCH ×3 (06:27→22:01)
[2016-12-01] MEDS: LACTULOSE 20 GM/30 ML UDC (FOR ORAL USE ONLY) GT SCH ×3 (06:27→21:59)
[2016-12-01] MEDS: BACLOFEN 10 MG TABLET (FP) GT SCH ×3 (06:28→22:00)
[2016-12-01] MEDS: ALBUTEROL SO4 2.5/IPRATROPIUM 0.5 INH SOL 3 ML VIAL.NEB. NEB SCH ×3 (06:48→18:00)
[2016-12-01 07:30] LABS: BASOPHIL 0.4 % (0-2.0); EOSINOPHIL 0.8 % (0-4.5); MCH 33.7 pg (25.7-33.7); MCHC 33.7 g/dl (32.0-36.0); MEAN PLT VOLUME 8.1 fl (7.5-11.1); NEUTROPHILS 38.9 % (42.8-82.8); PLATELET COUNT 143 K/MM3 (134-434); RDW 14.9 % (11.6-15.6)
[2016-12-01 08:15] LABS: ALBUMIN 2.7 g/dl (3.4-5.0); ANION GAP 7 (8-16); BILIRUBIN,TOTAL 0.5 mg/dL (0.2-1.0); CALCIUM 8.7 mg/dL (8.5-10.1); CO2 24 mmol/L (21-32); CREATININE 0.5 mg/dL (0.55-1.02); GLUCOSE,RANDOM 103 mg/dL (74-106); MAGNESIUM 1.9 mg/dL (1.8-2.4); SGOT/AST 52 U/L (15-37); SGPT/ALT 102 U/L (12-78); TOT PROT 5.6 g/dl (6.4-8.2)
[2016-12-01 08:16] LABS: ALK PHOS 240 U/L (45-117)
--- NOTE | 2016-12-01 09:57 | PN ---
Progress Note (short form) - Note Progress Note: PULMONARY VSS/AFEBRILE APPEARS COMFORTABLE/SMILING MUCH LESS COUGHING PALE/ANICTERIC LESS B/L RHONCHI S1S2 BS+ PEG CONTRACTURES UPPER EXT LABS/MEDS/NOTES/IMAGES/MICRO REVIEWED LFT'S/ALK PHOS ELEVATED (THESE HAVE BEEN ELEVATED IN PAST) PAST WORK UPS WITH ULTRASOUNDS HAVE BEEN UNREVEALING (1) Pneumonia Code(s): J18.9 - PNEUMONIA, UNSPECIFIED ORGANISM (2) Acute respiratory failure with hypoxia Code(s): J96.01 - ACUTE RESPIRATORY FAILURE WITH HYPOXIA (3) Cerebral palsy Code(s): G80.9 - CEREBRAL PALSY, UNSPECIFIED (4) Functional quadriplegia Code(s): R53.2 - FUNCTIONAL QUADRIPLEGIA (5) Mental retardation Code(s): F79 - UNSPECIFIED INTELLECTUAL DISABILITIES Assessment/Plan PANCULTURE NEGATIVE O2 SUPPLEMENTATION SUCTION PRN ANTIBIOTICS BRONCHODILATORS/CONTINUE PEG FEEDINGS Darnell MUNOZ MD Problem List - Problems (1) Pneumonia Code(s): J18.9 - PNEUMONIA, UNSPECIFIED ORGANISM (2) Acute respiratory failure with hypoxia Code(s): J96.01 - ACUTE RESPIRATORY FAILURE WITH HYPOXIA (3) Cerebral palsy Code(s): G80.9 - CEREBRAL PALSY, UNSPECIFIED (4) Functional quadriplegia Code(s): R53.2 - FUNCTIONAL QUADRIPLEGIA (5) Mental retardation Code(s): F79 - UNSPECIFIED INTELLECTUAL DISABILITIES
[2016-12-01] MEDS ORDERED: PT OWN MED DRAWER 7, Y5N ONE (10:04)
[2016-12-01] MEDS: TOPIRAMATE 25 MG TABLET (FP) NR SCH ×2 (10:20→22:00)
[2016-12-01] MEDS: levETIRAcetam 500 MG/5 ML ORAL SOLUTION (UNIT-DOSE CUPS) GT SCH ×2 (10:22→22:05)
[2016-12-01] MEDS: CHOLECALCIFEROL (VITAMIN D3) 1,000 UNIT TABLET (FP) GT SCH (10:22)
[2016-12-01] MEDS: OXcarbazepine 300 MG/5 ML 250 ML BULK BOTTLE GT SCH ×2 (10:23→22:04)
[2016-12-01] MEDS: FERROUS GLUC GT SCH (10:23)
[2016-12-01] MEDS: MULTIVIT MINERALS GT SCH (10:23)
--- NOTE | 2016-12-01 14:14 | PN ---
Physical Exam: SUBJECTIVE: Patient seen and examined at bedside. OBJECTIVE: Vital Signs Period Temp Pulse Resp BP Sys/Herman Pulse Ox Last 24 Hr 97.6 F-97.8 F 60-82 18-20 99-127/58-66 97-98 GENERAL/NEURO: The patient is awake. Nonverbal at baseline. HEAD: Normal with no signs of trauma. EYES: PERRL, sclera anicteric, conjunctiva clear. No ptosis. LUNGS: No wheezing appreciated today. Coarse breath sounds. No accessory muscle use. HEART: Regular rate and rhythm, S1, S2 without murmur, rub or gallop. ABDOMEN: Soft, nontender, nondistended, normoactive bowel sounds, no guarding, no rebound, no hepatosplenomegaly, no masses. PEG tube in situ. Surrounding skin intact, no erythema, no warmth, no sign of infection EXTREMITIES: 2+ pulses, warm, well-perfused, no edema. All four extremities are contracted Laboratory Results - last 24 hr 11/28/16 12/01/16 12/01/16 07:30 05:35 05:35 WBC 4.0 D RBC 2.97 L Hgb 10.0 L Hct 29.7 L MCV 100.0 H MCHC 33.7 RDW 14.9 Plt Count 143 MPV 8.1 Neutrophils % 38.9 L D Lymphocytes % 48.7 H D Monocytes % 11.2 H Eosinophils % 0.8 D Basophils % 0.4 Sodium 144 Potassium 4.3 D Chloride 113 H Carbon Dioxide 24 Anion Gap 7 L BUN 5 L D Creatinine 0.5 L Creat Clearance w eGFR > 60 Random Glucose 103 Calcium 8.7 Magnesium 1.9 D Total Bilirubin 0.5 D AST 52 H ALT 102 H Alkaline Phosphatase 240 H Total Protein 5.6 L Albumin 2.7 L Levetiracetam 45.6 H Active Medications Generic Name Dose Route Start Last Admin Trade Name Freq PRN Reason Stop Dose Admin Albuterol/Ipratropium 1 amp 11/27/16 12:00 12/01/16 12:03 Duoneb - NEB 1 amp QIDR [facility] Administration Baclofen 5 mg 11/26/16 22:00 12/01/16 06:28 Lioresal - GT 5 mg TID [facility] Administration Cholecalciferol 2,000 unit 11/27/16 10:00 12/01/16 10:22 Vitamin D3 - GT 2,000 unit DAILY [facility] Administration Heparin Sodium (Porcine) 5,000 unit 11/26/16 22:00 12/01/16 06:27 Heparin - SQ 5,000 unit TID [facility] Administration Piperacillin Sod/Tazobactam Sod 50 mls @ 100 mls/hr 11/27/16 11:15 12/01/16 10: 19 Zosyn 3.375gm Ivpb (Pre-Docked) IVPB 100 mls/hr Q8H-IV [facility] Administration Protocol Lactulose 10 gm 11/26/16 22:00 12/01/16 06:27 Cephulac (Oral Use) GT 10 gm TID [facility] Administration Levetiracetam 1,500 mg 11/26/16 22:00 12/01/16 10:22 Keppra Oral Solution - GT 1,500 mg BID [facility] Administration Oxcarbazepine 210 mg 11/26/16 22:00 11/30/16 22:24 Trileptal GT 210 mg HS [facility] Administration Oxcarbazepine 180 mg 11/27/16 10:00 12/01/16 10:23 Trileptal GT 180 mg DAILY [facility] Administration Topiramate 25 mg 11/26/16 22:00 12/01/16 10:20 Topamax - NR 25 mg BID [facility] Administration ASSESSMENT/PLAN 26 year-old female, [place] resident, with a PMH of cerebral palsy, severe mental retardation, spastic quadriplegia, GERD, seizure disorder, recurrent pneumonia, and PEG tube. Sepsis secondary to pneumonia, aspiration v. HCAP --was hypoxic on admission with leukocytosis and tachycardia, these symptoms have resolved --continue Zosyn (day #5) Seizure disorder --stable --continue Keppra, trileptal, Topamax, ativan PRN Cerebral palsy Spastic quadriplegia --continue baclofen Functional quadriplegia --fully dependent for all ADLs Elevated transaminases --continue to trend down F/E/N Fluids/Nutrition: Promote @ 20mL/hr start, titrate to 40mL/hr; 15mL/hr free water; d/c IV fluids Electrolytes: replete as indicated DVT prophylaxis: subq heparin Dispo: continues to require inpatient care. Full Code. Visit type - Emergency Visit Emergency Visit: Yes ED Registration Date: 11/26/16 Care time: The patient presented to the Emergency Department on the above date and was hospitalized for further evaluation of their emergent condition. - New Patient This patient is new to me today: No - Critical Care Critical Care patient: No
--- NOTE | 2016-12-01 16:19 | PN ---
Progress Note, Physician History of Present Illness: continues to improve breathing better secretions much less - Current Medication List Current Medications: Active Medications Albuterol/Ipratropium (Duoneb -) 1 amp NEB QIDR [facility] Last Admin: 12/01/16 12:03 Dose: 1 amp Baclofen (Lioresal -) 5 mg GT TID [facility] Last Admin: 12/01/16 15:28 Dose: 5 mg Cholecalciferol (Vitamin D3 -) 2,000 unit GT DAILY [facility] Last Admin: 12/01/16 10:22 Dose: 2,000 unit Heparin Sodium (Porcine) (Heparin -) 5,000 unit SQ TID [facility] Last Admin: 12/01/16 15:28 Dose: 5,000 unit Piperacillin Sod/Tazobactam Sod (Zosyn 3.375gm Ivpb (Pre-Docked)) 50 mls @ 100 mls/hr IVPB Q8H-IV [facility] PRN Reason: Protocol Last Admin: 12/01/16 10:19 Dose: 100 mls/hr Lactulose (Cephulac (Oral Use)) 10 gm GT TID [facility] Last Admin: 12/01/16 15:28 Dose: 10 gm Levetiracetam (Keppra Oral Solution -) 1,500 mg GT BID [facility] Last Admin: 12/01/16 10:22 Dose: 1,500 mg Oxcarbazepine (Trileptal) 210 mg GT HS [facility] Last Admin: 11/30/16 22:24 Dose: 210 mg Oxcarbazepine (Trileptal) 180 mg GT DAILY [facility] Last Admin: 12/01/16 10:23 Dose: 180 mg Topiramate (Topamax -) 25 mg NR BID [facility] Last Admin: 12/01/16 10:20 Dose: 25 mg - Objective Vital Signs: Vital Signs Temperature 98.2 F 12/01/16 14:55 Pulse Rate 61 12/01/16 14:55 Respiratory Rate 18 12/01/16 07:50 Blood Pressure 98/69 12/01/16 14:55 O2 Sat by Pulse Oximetry (%) 97 12/01/16 09:00 Constitutional: Yes: No Distress, Calm Respiratory: Yes: On Nasal O2, Rhonchi Gastrointestinal: Yes: Normal Bowel Sounds, Soft Musculoskeletal: Yes: Other Extremities: Yes: Other Neurological: Yes: Alert ...Motor Strength: RLE Psychiatric: Yes: Other Labs: CBC, BMP 12/01/16 05:35 12/01/16 05:35 Assessment/Plan (1) Pneumonia Code(s): J18.9 - PNEUMONIA, UNSPECIFIED ORGANISM (2) Acute respiratory failure with hypoxia Code(s): J96.01 - ACUTE RESPIRATORY FAILURE WITH HYPOXIA (3) Cerebral palsy Code(s): G80.9 - CEREBRAL PALSY, UNSPECIFIED (4) Functional quadriplegia Code(s): R53.2 - FUNCTIONAL QUADRIPLEGIA (5) Mental retardation Code(s): F79 - UNSPECIFIED INTELLECTUAL DISABILITIES plan continue abx continue suctioning rest as per primary team monitor for fevers
[2016-12-02] MEDS: ALBUTEROL SO4 2.5/IPRATROPIUM 0.5 INH SOL 3 ML VIAL.NEB. NEB SCH ×5 (00:05→23:29)
[2016-12-02] MEDS: PIPERACILLIN/TAZOB 3.375 GM 50 ML IVPB SCH ×3 (01:05→17:52)
[2016-12-02] MEDS: HEPARIN NA (PORCINE) 5,000 UNITS/ML 1ML VIAL SQ SCH ×3 (05:49→21:55)
[2016-12-02] MEDS: LACTULOSE 20 GM/30 ML UDC (FOR ORAL USE ONLY) GT SCH ×3 (05:49→21:54)
[2016-12-02] MEDS: BACLOFEN 10 MG TABLET (FP) GT SCH ×3 (05:49→21:54)
[2016-12-02] MEDS ORDERED: MULTIVITAMINS (PEDIATRIC) 50 ML DROPS GT SCH (10:00)
[2016-12-02] MEDS ORDERED: PT OWN MED DRAWER 7, Y5N ONE ×2 (10:19→11:31)
[2016-12-02] MEDS: OXcarbazepine 300 MG/5 ML 250 ML BULK BOTTLE GT SCH ×2 (10:32→21:56)
[2016-12-02] MEDS: ERGOCALCIFEROL 8,000 UNITS/ML DROPSBTL GT SCH (10:33)
[2016-12-02] MEDS: TOPIRAMATE 25 MG TABLET (FP) NR SCH ×2 (10:33→21:55)
[2016-12-02] MEDS: CHOLECALCIFEROL (VITAMIN D3) 1,000 UNIT TABLET (FP) GT SCH (10:33)
[2016-12-02] MEDS: MULTIVIT MINERALS GT SCH (10:34)
[2016-12-02] MEDS: FERROUS GLUC GT SCH (10:34)
[2016-12-02] MEDS: levETIRAcetam 500 MG/5 ML ORAL SOLUTION (UNIT-DOSE CUPS) GT SCH ×2 (10:34→21:55)
--- NOTE | 2016-12-02 11:14 | PN ---
Progress Note (short form) - Note Progress Note: PULMONARY Pt nonverbal. No fevers recorded, appears comfortable. Last Vital Signs Temp Pulse Resp BP Pulse Ox 97.4 F L 66 16 94/63 97 12/02/16 06:13 12/02/16 09:12 12/02/16 09:12 12/02/16 09:12 12/01/16 21:00 Gen: breathing nonlabored Heart: RRR Lung: scattered rhonchi Abd: soft, nontender Ext: no edema CBC, BMP 12/01/16 05:35 12/01/16 05:35 Active Medications Albuterol/Ipratropium (Duoneb -) 1 amp NEB QIDR [facility] Last Admin: 12/02/16 06:39 Dose: 1 amp Baclofen (Lioresal -) 5 mg GT TID [facility] Last Admin: 12/02/16 05:49 Dose: 5 mg Cholecalciferol (Vitamin D3 -) 2,000 unit GT DAILY [facility] Last Admin: 12/02/16 10:33 Dose: 2,000 unit Ergocalciferol (Drisdol Oral Solution -) 8,000 units GT DAILY [facility] Last Admin: 12/02/16 10:33 Dose: 8,000 units Heparin Sodium (Porcine) (Heparin -) 5,000 unit SQ TID [facility] Last Admin: 12/02/16 05:49 Dose: 5,000 unit Piperacillin Sod/Tazobactam Sod (Zosyn 3.375gm Ivpb (Pre-Docked)) 50 mls @ 100 mls/hr IVPB Q8H-IV [facility] PRN Reason: Protocol Last Admin: 12/02/16 10:27 Dose: 100 mls/hr Lactulose (Cephulac (Oral Use)) 10 gm GT TID [facility] Last Admin: 12/02/16 05:49 Dose: 10 gm Levetiracetam (Keppra Oral Solution -) 1,500 mg GT BID [facility] Last Admin: 12/02/16 10:34 Dose: 1,500 mg Oxcarbazepine (Trileptal) 210 mg GT HS [facility] Last Admin: 12/01/16 22:04 Dose: 210 mg Oxcarbazepine (Trileptal) 180 mg GT DAILY [facility] Last Admin: 12/02/16 10:32 Dose: 180 mg Topiramate (Topamax -) 25 mg NR BID [facility] Last Admin: 12/02/16 10:33 Dose: 25 mg A/P Pneumonia likely aspiration Acute Hypoxic Respiratory Failure improving Mental Retardation Cerebral Palsy Seizure Disorder Functional Quadriplegia - antibiotics per ID - O2 to keep SpO2 >90% - aspiration/seizure precautions - DVT prophylaxis
--- NOTE | 2016-12-02 12:02 | PN ---
Physical Exam: SUBJECTIVE: Patient seen and examined at bedside. OBJECTIVE: Vital Signs Period Temp Pulse Resp BP Sys/Herman Pulse Ox Last 24 Hr 97.4 F-98.2 F 59-70 16-20 94-131/63-92 97 GENERAL/NEURO: The patient is awake. Nonverbal at baseline. HEAD: Normal with no signs of trauma. EYES: PERRL, sclera anicteric, conjunctiva clear. No ptosis. LUNGS: No wheezing appreciated today. Coarse breath sounds. No accessory muscle use. HEART: Regular rate and rhythm, S1, S2 without murmur, rub or gallop. ABDOMEN: Soft, nontender, nondistended, normoactive bowel sounds, no guarding, no rebound, no hepatosplenomegaly, no masses. PEG tube in situ. Surrounding skin intact, no erythema, no warmth, no sign of infection EXTREMITIES: 2+ pulses, warm, well-perfused, no edema. All four extremities are contracted Active Medications Generic Name Dose Route Start Last Admin Trade Name Freq PRN Reason Stop Dose Admin Albuterol/Ipratropium 1 amp 11/27/16 12:00 12/02/16 11:38 Duoneb - NEB 1 amp QIDR [facility] Administration Baclofen 5 mg 11/26/16 22:00 12/02/16 05:49 Lioresal - GT 5 mg TID [facility] Administration Cholecalciferol 2,000 unit 11/27/16 10:00 12/02/16 10:33 Vitamin D3 - GT 2,000 unit DAILY [facility] Administration Ergocalciferol 8,000 units 12/02/16 10:00 12/02/16 10:33 Drisdol Oral Solution - GT 8,000 units DAILY [facility] Administration Heparin Sodium (Porcine) 5,000 unit 11/26/16 22:00 12/02/16 05:49 Heparin - SQ 5,000 unit TID [facility] Administration Piperacillin Sod/Tazobactam Sod 50 mls @ 100 mls/hr 11/27/16 11:15 12/02/16 10: 27 Zosyn 3.375gm Ivpb (Pre-Docked) IVPB 100 mls/hr Q8H-IV [facility] Administration Protocol Lactulose 10 gm 11/26/16 22:00 12/02/16 05:49 Cephulac (Oral Use) GT 10 gm TID [facility] Administration Levetiracetam 1,500 mg 11/26/16 22:00 12/02/16 10:34 Keppra Oral Solution - GT 1,500 mg BID [facility] Administration Oxcarbazepine 210 mg 11/26/16 22:00 12/01/16 22:04 Trileptal GT 210 mg HS [facility] Administration Oxcarbazepine 180 mg 11/27/16 10:00 12/02/16 10:32 Trileptal GT 180 mg DAILY [facility] Administration Topiramate 25 mg 11/26/16 22:00 12/02/16 10:33 Topamax - NR 25 mg BID [facility] Administration ASSESSMENT/PLAN 26 year-old female, [place] resident, with a PMH of cerebral palsy, severe mental retardation, spastic quadriplegia, GERD, seizure disorder, recurrent pneumonia, and PEG tube. Sepsis secondary to pneumonia, aspiration v. HCAP; sepsis resolved --much improved, lungs clear today --continue Zosyn (day #6) Seizure disorder --stable --continue Keppra, trileptal, Topamax, ativan PRN Cerebral palsy Spastic quadriplegia --continue baclofen Functional quadriplegia --fully dependent for all ADLs Elevated transaminases --continue to trend down F/E/N Fluids/Nutrition: Promote @ 40mL/hr; free water Electrolytes: replete as indicated DVT prophylaxis: subq heparin Dispo: plan to discharge tomorrow. Full Code. Visit type - Emergency Visit Emergency Visit: Yes ED Registration Date: 11/26/16 Care time: The patient presented to the Emergency Department on the above date and was hospitalized for further evaluation of their emergent condition. - New Patient This patient is new to me today: No - Critical Care Critical Care patient: No
--- NOTE | 2016-12-02 15:03 | PN ---
Progress Note, Physician History of Present Illness: patient stable no new issues much better minimal secretions - Current Medication List Current Medications: Active Medications Albuterol/Ipratropium (Duoneb -) 1 amp NEB QIDR [facility] Last Admin: 12/02/16 11:38 Dose: 1 amp Baclofen (Lioresal -) 5 mg GT TID [facility] Last Admin: 12/02/16 14:16 Dose: 5 mg Cholecalciferol (Vitamin D3 -) 2,000 unit GT DAILY [facility] Last Admin: 12/02/16 10:33 Dose: 2,000 unit Ergocalciferol (Drisdol Oral Solution -) 8,000 units GT DAILY [facility] Last Admin: 12/02/16 10:33 Dose: 8,000 units Heparin Sodium (Porcine) (Heparin -) 5,000 unit SQ TID [facility] Last Admin: 12/02/16 14:15 Dose: 5,000 unit Piperacillin Sod/Tazobactam Sod (Zosyn 3.375gm Ivpb (Pre-Docked)) 50 mls @ 100 mls/hr IVPB Q8H-IV [facility] PRN Reason: Protocol Last Admin: 12/02/16 10:27 Dose: 100 mls/hr Lactulose (Cephulac (Oral Use)) 10 gm GT TID [facility] Last Admin: 12/02/16 14:16 Dose: 10 gm Levetiracetam (Keppra Oral Solution -) 1,500 mg GT BID [facility] Last Admin: 12/02/16 10:34 Dose: 1,500 mg Oxcarbazepine (Trileptal) 210 mg GT HS [facility] Last Admin: 12/01/16 22:04 Dose: 210 mg Oxcarbazepine (Trileptal) 180 mg GT DAILY [facility] Last Admin: 12/02/16 10:32 Dose: 180 mg Topiramate (Topamax -) 25 mg NR BID [facility] Last Admin: 12/02/16 10:33 Dose: 25 mg - Objective Vital Signs: Vital Signs Temperature 97.4 F L 12/02/16 14:04 Pulse Rate 68 12/02/16 14:04 Respiratory Rate 16 12/02/16 09:12 Blood Pressure 94/63 12/02/16 09:12 O2 Sat by Pulse Oximetry (%) 100 12/02/16 09:00 Constitutional: Yes: No Distress, Calm Cardiovascular: Yes: Regular Rate and Rhythm Respiratory: Yes: Regular, On Nasal O2, Rhonchi Gastrointestinal: Yes: Normal Bowel Sounds, Soft, Other (peg tube) Musculoskeletal: Yes: Other Extremities: Yes: Other Neurological: Yes: Alert, Other Labs: CBC, BMP 12/01/16 05:35 12/01/16 05:35 Assessment/Plan (1) Pneumonia Code(s): J18.9 - PNEUMONIA, UNSPECIFIED ORGANISM (2) Acute respiratory failure with hypoxia Code(s): J96.01 - ACUTE RESPIRATORY FAILURE WITH HYPOXIA (3) Cerebral palsy Code(s): G80.9 - CEREBRAL PALSY, UNSPECIFIED (4) Functional quadriplegia Code(s): R53.2 - FUNCTIONAL QUADRIPLEGIA (5) Mental retardation Code(s): F79 - UNSPECIFIED INTELLECTUAL DISABILITIES plan continue abx continue suctioning rest as per primary team abx to be stopped on tuesday
[2016-12-03] MEDS: PIPERACILLIN/TAZOB 3.375 GM 50 ML IVPB SCH ×3 (01:05→17:32)
[2016-12-03] MEDS: LACTULOSE 20 GM/30 ML UDC (FOR ORAL USE ONLY) GT SCH ×3 (06:11→21:02)
[2016-12-03] MEDS: HEPARIN NA (PORCINE) 5,000 UNITS/ML 1ML VIAL SQ SCH ×3 (06:11→21:02)
[2016-12-03] MEDS: BACLOFEN 10 MG TABLET (FP) GT SCH ×3 (06:11→21:02)
[2016-12-03] MEDS: ALBUTEROL SO4 2.5/IPRATROPIUM 0.5 INH SOL 3 ML VIAL.NEB. NEB SCH ×3 (06:50→18:02)
[2016-12-03 07:29] LABS: CALCIUM 8.7 mg/dL (8.5-10.1)
[2016-12-03 07:35] LABS: ALBUMIN 2.8 g/dl (3.4-5.0); ALK PHOS 189 U/L (45-117); ANION GAP 6 (8-16); BILIRUBIN,TOTAL 0.2 mg/dL (0.2-1.0); CO2 27 mmol/L (21-32); COCKROFT - GAULT 171.8445; CREATININE 0.4 mg/dL (0.55-1.02); GLUCOSE,RANDOM 90 mg/dL (74-106); MAGNESIUM 1.8 mg/dL (1.8-2.4); SGOT/AST 24 U/L (15-37); SGPT/ALT 79 U/L (12-78); TOT PROT 5.8 g/dl (6.4-8.2)
[2016-12-03 07:36] LABS: BILIRUBIN,DIRECT < 0.1 mg/dL (0.0-0.2)
[2016-12-03] MEDS ORDERED: PT OWN MED DRAWER 7, Y5N ONE ×2 (09:33→11:29)
[2016-12-03] MEDS: ERGOCALCIFEROL 8,000 UNITS/ML DROPSBTL GT SCH (10:11)
[2016-12-03] MEDS: OXcarbazepine 300 MG/5 ML 250 ML BULK BOTTLE GT SCH ×2 (10:11→21:03)
[2016-12-03] MEDS: FERROUS GLUC GT SCH (10:12)
[2016-12-03] MEDS: CHOLECALCIFEROL (VITAMIN D3) 1,000 UNIT TABLET (FP) GT SCH (10:12)
[2016-12-03] MEDS: TOPIRAMATE 25 MG TABLET (FP) NR SCH ×2 (10:12→21:02)
[2016-12-03] MEDS: MULTIVIT MINERALS GT SCH (10:12)
[2016-12-03] MEDS: levETIRAcetam 500 MG/5 ML ORAL SOLUTION (UNIT-DOSE CUPS) GT SCH ×2 (10:12→21:02)
--- NOTE | 2016-12-03 11:04 | PN ---
Progress Note (short form) - Note Progress Note: PULMONARY VSS/AFEBRILE APPEARS COMFORTABLE MUCH LESS COUGHING PALE/ANICTERIC LESS B/L RHONCHI S1S2 BS+ PEG CONTRACTURES UPPER EXT LABS/MEDS/NOTES/IMAGES/MICRO REVIEWED LFT'S/ALK PHOS ELEVATED (THESE HAVE BEEN ELEVATED IN PAST) PAST WORK UPS WITH ULTRASOUNDS HAVE BEEN UNREVEALING (1) Pneumonia Code(s): J18.9 - PNEUMONIA, UNSPECIFIED ORGANISM (2) Acute respiratory failure with hypoxia Code(s): J96.01 - ACUTE RESPIRATORY FAILURE WITH HYPOXIA (3) Cerebral palsy Code(s): G80.9 - CEREBRAL PALSY, UNSPECIFIED (4) Functional quadriplegia Code(s): R53.2 - FUNCTIONAL QUADRIPLEGIA (5) Mental retardation Code(s): F79 - UNSPECIFIED INTELLECTUAL DISABILITIES Assessment/Plan PANCULTURE NEGATIVE O2 SUPPLEMENTATION SUCTION PRN ANTIBIOTICS BRONCHODILATORS/CONTINUE PEG FEEDINGS Darnell MUNOZ MD Problem List - Problems (1) Pneumonia Code(s): J18.9 - PNEUMONIA, UNSPECIFIED ORGANISM (2) Acute respiratory failure with hypoxia Code(s): J96.01 - ACUTE RESPIRATORY FAILURE WITH HYPOXIA (3) Cerebral palsy Code(s): G80.9 - CEREBRAL PALSY, UNSPECIFIED (4) Functional quadriplegia Code(s): R53.2 - FUNCTIONAL QUADRIPLEGIA (5) Mental retardation Code(s): F79 - UNSPECIFIED INTELLECTUAL DISABILITIES
--- NOTE | 2016-12-03 12:07 | PN ---
Physical Exam: SUBJECTIVE: Patient seen and examined at bedside. OBJECTIVE: Vital Signs Period Temp Pulse Resp BP Sys/Herman Pulse Ox Last 24 Hr 97.4 F-98.7 F 62-78 20-22 83-138/56-70 97-97 GENERAL/NEURO: The patient is awake. Nonverbal at baseline. HEAD: Normal with no signs of trauma. EYES: PERRL, sclera anicteric, conjunctiva clear. No ptosis. LUNGS: No wheezing appreciated today. Coarse breath sounds. No accessory muscle use. HEART: Regular rate and rhythm, S1, S2 without murmur, rub or gallop. ABDOMEN: Soft, nontender, nondistended, normoactive bowel sounds, no guarding, no rebound, no hepatosplenomegaly, no masses. PEG tube in situ. Surrounding skin intact, no erythema, no warmth, no sign of infection EXTREMITIES: 2+ pulses, warm, well-perfused, no edema. All four extremities are contracted Laboratory Results - last 24 hr 12/03/16 06:20 Sodium 142 Potassium 4.1 Chloride 109 H Carbon Dioxide 27 Anion Gap 6 L BUN 15 D Creatinine 0.4 L Random Glucose 90 Calcium 8.7 Magnesium 1.8 Total Bilirubin 0.2 D Direct Bilirubin < 0.1 AST 24 D ALT 79 H D Alkaline Phosphatase 189 H D Total Protein 5.8 L Albumin 2.8 L Active Medications Generic Name Dose Route Start Last Admin Trade Name Freq PRN Reason Stop Dose Admin Albuterol/Ipratropium 1 amp 11/27/16 12:00 12/03/16 12:01 Duoneb - NEB 1 amp QIDR [facility] Administration Baclofen 5 mg 11/26/16 22:00 12/03/16 06:11 Lioresal - GT 5 mg TID [facility] Administration Cholecalciferol 2,000 unit 11/27/16 10:00 12/03/16 10:12 Vitamin D3 - GT 2,000 unit DAILY [facility] Administration Ergocalciferol 8,000 units 12/02/16 10:00 12/03/16 10:11 Drisdol Oral Solution - GT 8,000 units DAILY [facility] Administration Heparin Sodium (Porcine) 5,000 unit 11/26/16 22:00 12/03/16 06:11 Heparin - SQ 5,000 unit TID [facility] Administration Piperacillin Sod/Tazobactam Sod 50 mls @ 100 mls/hr 11/27/16 11:15 12/03/16 10: 08 Zosyn 3.375gm Ivpb (Pre-Docked) IVPB 100 mls/hr Q8H-IV [facility] Administration Protocol Lactulose 10 gm 11/26/16 22:00 12/03/16 06:11 Cephulac (Oral Use) GT 10 gm TID [facility] Administration Levetiracetam 1,500 mg 11/26/16 22:00 12/03/16 10:12 Keppra Oral Solution - GT 1,500 mg BID [facility] Administration Oxcarbazepine 210 mg 11/26/16 22:00 12/02/16 21:56 Trileptal GT 210 mg HS [facility] Administration Oxcarbazepine 180 mg 11/27/16 10:00 12/03/16 10:11 Trileptal GT 180 mg DAILY [facility] Administration Topiramate 25 mg 11/26/16 22:00 12/03/16 10:12 Topamax - NR 25 mg BID [facility] Administration ASSESSMENT/PLAN 26 year-old female, [place] resident, with a PMH of cerebral palsy, severe mental retardation, spastic quadriplegia, GERD, seizure disorder, recurrent pneumonia, and PEG tube. Sepsis secondary to pneumonia, aspiration v. HCAP; sepsis resolved --much improved, lungs remain clear --continue Zosyn (day #6) Seizure disorder --stable --continue Keppra, trileptal, Topamax, ativan PRN Cerebral palsy Spastic quadriplegia --continue baclofen Functional quadriplegia --fully dependent for all ADLs Elevated transaminases --continue to trend down F/E/N Fluids/Nutrition: Promote @ 40mL/hr; free water Electrolytes: replete as indicated DVT prophylaxis: subq heparin Dispo: plan to discharge Tuesday if remains stable. Full Code. Visit type - Emergency Visit Emergency Visit: Yes ED Registration Date: 11/26/16 Care time: The patient presented to the Emergency Department on the above date and was hospitalized for further evaluation of their emergent condition. - New Patient This patient is new to me today: No - Critical Care Critical Care patient: No
[2016-12-04] MEDS: ALBUTEROL SO4 2.5/IPRATROPIUM 0.5 INH SOL 3 ML VIAL.NEB. NEB SCH ×5 (00:10→23:08)
[2016-12-04] MEDS: PIPERACILLIN/TAZOB 3.375 GM 50 ML IVPB SCH ×2 (01:02→10:41)
[2016-12-04] MEDS: BACLOFEN 10 MG TABLET (FP) GT SCH ×3 (06:02→22:03)
[2016-12-04] MEDS: LACTULOSE 20 GM/30 ML UDC (FOR ORAL USE ONLY) GT SCH ×3 (06:02→22:05)
[2016-12-04] MEDS ORDERED: PT OWN MED DRAWER 7, Y5N ONE ×2 (10:29→21:12)
[2016-12-04] MEDS: ERGOCALCIFEROL 8,000 UNITS/ML DROPSBTL GT SCH (10:42)
[2016-12-04] MEDS: FERROUS GLUC GT SCH (10:42)
[2016-12-04] MEDS: CHOLECALCIFEROL (VITAMIN D3) 1,000 UNIT TABLET (FP) GT SCH (10:42)
[2016-12-04] MEDS: MULTIVIT MINERALS GT SCH (10:42)
[2016-12-04] MEDS: TOPIRAMATE 25 MG TABLET (FP) NR SCH ×2 (10:42→22:03)
[2016-12-04] MEDS: levETIRAcetam 500 MG/5 ML ORAL SOLUTION (UNIT-DOSE CUPS) GT SCH ×2 (10:42→22:04)
[2016-12-04] MEDS: OXcarbazepine 300 MG/5 ML 250 ML BULK BOTTLE GT SCH ×2 (10:43→22:05)
--- NOTE | 2016-12-04 11:51 | PN ---
Progress Note (short form) - Note Progress Note: PULMONARY Pt nonverbal. No fevers recorded, appears comfortable. Last Vital Signs Temp Pulse Resp BP Pulse Ox 96.7 F L 74 20 111/70 97 12/04/16 10:00 12/04/16 10:00 12/04/16 10:00 12/04/16 10:00 12/04/16 09:00 Gen: breathing nonlabored Heart: RRR Lung: scattered rhonchi Abd: soft, nontender Ext: no edema CBC, BMP 12/01/16 05:35 12/03/16 06:20 Active Medications Albuterol/Ipratropium (Duoneb -) 1 amp NEB QIDR [facility] Last Admin: 12/04/16 11:20 Dose: 1 amp Baclofen (Lioresal -) 5 mg GT TID [facility] Last Admin: 12/04/16 06:02 Dose: 5 mg Cholecalciferol (Vitamin D3 -) 2,000 unit GT DAILY [facility] Last Admin: 12/04/16 10:42 Dose: 2,000 unit Ergocalciferol (Drisdol Oral Solution -) 8,000 units GT DAILY [facility] Last Admin: 12/04/16 10:42 Dose: 8,000 units Piperacillin Sod/Tazobactam Sod (Zosyn 3.375gm Ivpb (Pre-Docked)) 50 mls @ 100 mls/hr IVPB Q8H-IV [facility] PRN Reason: Protocol Last Admin: 12/04/16 10:41 Dose: 100 mls/hr Lactulose (Cephulac (Oral Use)) 10 gm GT TID [facility] Last Admin: 12/04/16 06:02 Dose: 10 gm Levetiracetam (Keppra Oral Solution -) 1,500 mg GT BID [facility] Last Admin: 12/04/16 10:42 Dose: 1,500 mg Oxcarbazepine (Trileptal) 210 mg GT HS [facility] Last Admin: 12/03/16 21:03 Dose: 210 mg Oxcarbazepine (Trileptal) 180 mg GT DAILY [facility] Last Admin: 12/04/16 10:43 Dose: 180 mg Topiramate (Topamax -) 25 mg NR BID [facility] Last Admin: 12/04/16 10:42 Dose: 25 mg A/P Pneumonia likely aspiration Acute Hypoxic Respiratory Failure improving Mental Retardation Cerebral Palsy Seizure Disorder Functional Quadriplegia - antibiotics per ID - O2 to keep SpO2 >90% - aspiration/seizure precautions - DVT prophylaxis
--- NOTE | 2016-12-04 14:55 | PN ---
Progress Note, Physician History of Present Illness: stable improving - Current Medication List Current Medications: Active Medications Albuterol/Ipratropium (Duoneb -) 1 amp NEB QIDR [facility] Last Admin: 12/04/16 11:20 Dose: 1 amp Baclofen (Lioresal -) 5 mg GT TID [facility] Last Admin: 12/04/16 14:10 Dose: 5 mg Cholecalciferol (Vitamin D3 -) 2,000 unit GT DAILY [facility] Last Admin: 12/04/16 10:42 Dose: 2,000 unit Ergocalciferol (Drisdol Oral Solution -) 8,000 units GT DAILY [facility] Last Admin: 12/04/16 10:42 Dose: 8,000 units Piperacillin Sod/Tazobactam Sod (Zosyn 3.375gm Ivpb (Pre-Docked)) 50 mls @ 100 mls/hr IVPB Q8H-IV [facility] PRN Reason: Protocol Last Admin: 12/04/16 10:41 Dose: 100 mls/hr Lactulose (Cephulac (Oral Use)) 10 gm GT TID [facility] Last Admin: 12/04/16 14:10 Dose: 10 gm Levetiracetam (Keppra Oral Solution -) 1,500 mg GT BID [facility] Last Admin: 12/04/16 10:42 Dose: 1,500 mg Oxcarbazepine (Trileptal) 210 mg GT HS [facility] Last Admin: 12/03/16 21:03 Dose: 210 mg Oxcarbazepine (Trileptal) 180 mg GT DAILY [facility] Last Admin: 12/04/16 10:43 Dose: 180 mg Topiramate (Topamax -) 25 mg NR BID [facility] Last Admin: 12/04/16 10:42 Dose: 25 mg - Objective Vital Signs: Vital Signs Temperature 97.8 F 12/04/16 14:19 Pulse Rate 63 12/04/16 14:19 Respiratory Rate 20 12/04/16 10:00 Blood Pressure 113/65 12/04/16 14:19 O2 Sat by Pulse Oximetry (%) 97 12/04/16 09:00 Constitutional: Yes: No Distress, Calm Cardiovascular: Yes: Regular Rate and Rhythm Respiratory: Yes: On Nasal O2, Rhonchi, Other (secretions minimal) Gastrointestinal: Yes: Normal Bowel Sounds, Soft, Other (peg in place) Musculoskeletal: Yes: Other Extremities: Yes: Other Neurological: Yes: Alert, Other Psychiatric: Yes: Other Labs: CBC, BMP 12/01/16 05:35 12/03/16 06:20 Assessment/Plan (1) Pneumonia Code(s): J18.9 - PNEUMONIA, UNSPECIFIED ORGANISM (2) Acute respiratory failure with hypoxia Code(s): J96.01 - ACUTE RESPIRATORY FAILURE WITH HYPOXIA (3) Cerebral palsy Code(s): G80.9 - CEREBRAL PALSY, UNSPECIFIED (4) Functional quadriplegia Code(s): R53.2 - FUNCTIONAL QUADRIPLEGIA (5) Mental retardation Code(s): F79 - UNSPECIFIED INTELLECTUAL DISABILITIES plan continue abx continue suctioning rest as per primary team abx to be stopped on tuesday
--- NOTE | 2016-12-04 14:56 | PN ---
Progress Note, Physician History of Present Illness: stable looks like at baseline - Current Medication List Current Medications: Active Medications Albuterol/Ipratropium (Duoneb -) 1 amp NEB QIDR [facility] Last Admin: 12/04/16 11:20 Dose: 1 amp Baclofen (Lioresal -) 5 mg GT TID [facility] Last Admin: 12/04/16 14:10 Dose: 5 mg Cholecalciferol (Vitamin D3 -) 2,000 unit GT DAILY [facility] Last Admin: 12/04/16 10:42 Dose: 2,000 unit Ergocalciferol (Drisdol Oral Solution -) 8,000 units GT DAILY [facility] Last Admin: 12/04/16 10:42 Dose: 8,000 units Piperacillin Sod/Tazobactam Sod (Zosyn 3.375gm Ivpb (Pre-Docked)) 50 mls @ 100 mls/hr IVPB Q8H-IV [facility] PRN Reason: Protocol Last Admin: 12/04/16 10:41 Dose: 100 mls/hr Lactulose (Cephulac (Oral Use)) 10 gm GT TID [facility] Last Admin: 12/04/16 14:10 Dose: 10 gm Levetiracetam (Keppra Oral Solution -) 1,500 mg GT BID [facility] Last Admin: 12/04/16 10:42 Dose: 1,500 mg Oxcarbazepine (Trileptal) 210 mg GT HS [facility] Last Admin: 12/03/16 21:03 Dose: 210 mg Oxcarbazepine (Trileptal) 180 mg GT DAILY [facility] Last Admin: 12/04/16 10:43 Dose: 180 mg Topiramate (Topamax -) 25 mg NR BID [facility] Last Admin: 12/04/16 10:42 Dose: 25 mg - Objective Vital Signs: Vital Signs Temperature 97.8 F 12/04/16 14:19 Pulse Rate 63 12/04/16 14:19 Respiratory Rate 20 12/04/16 10:00 Blood Pressure 113/65 12/04/16 14:19 O2 Sat by Pulse Oximetry (%) 97 12/04/16 09:00 Constitutional: Yes: No Distress, Calm Cardiovascular: Yes: Regular Rate and Rhythm Respiratory: Yes: On Nasal O2, Rhonchi Gastrointestinal: Yes: Normal Bowel Sounds, Soft, Other (peg in place) Extremities: Yes: Other Neurological: Yes: Alert, Other Labs: CBC, BMP 12/01/16 05:35 12/03/16 06:20 Assessment/Plan (1) Pneumonia Code(s): J18.9 - PNEUMONIA, UNSPECIFIED ORGANISM (2) Acute respiratory failure with hypoxia Code(s): J96.01 - ACUTE RESPIRATORY FAILURE WITH HYPOXIA (3) Cerebral palsy Code(s): G80.9 - CEREBRAL PALSY, UNSPECIFIED (4) Functional quadriplegia Code(s): R53.2 - FUNCTIONAL QUADRIPLEGIA (5) Mental retardation Code(s): F79 - UNSPECIFIED INTELLECTUAL DISABILITIES plan stop abx tomorrow continue suctioning
--- NOTE | 2016-12-04 15:18 | PN ---
Physical Exam: SUBJECTIVE: Patient seen and examined at bedside. OBJECTIVE: Vital Signs Period Temp Pulse Resp BP Sys/Herman Pulse Ox Last 24 Hr 96.7 F-98.0 F 63-74 18-20 100-113/47-70 96-97 GENERAL/NEURO: The patient is awake. Nonverbal at baseline. HEAD: Normal with no signs of trauma. EYES: PERRL, sclera anicteric, conjunctiva clear. No ptosis. LUNGS: No wheezing appreciated today. Coarse breath sounds. No accessory muscle use. HEART: Regular rate and rhythm, S1, S2 without murmur, rub or gallop. ABDOMEN: Soft, nontender, nondistended, normoactive bowel sounds, no guarding, no rebound, no hepatosplenomegaly, no masses. PEG tube in situ. Surrounding skin intact, no erythema, no warmth, no sign of infection EXTREMITIES: 2+ pulses, warm, well-perfused, no edema. All four extremities are contracted Active Medications Generic Name Dose Route Start Last Admin Trade Name Freq PRN Reason Stop Dose Admin Albuterol/Ipratropium 1 amp 11/27/16 12:00 12/04/16 11:20 Duoneb - NEB 1 amp QIDR [facility] Administration Baclofen 5 mg 11/26/16 22:00 12/04/16 14:10 Lioresal - GT 5 mg TID [facility] Administration Cholecalciferol 2,000 unit 11/27/16 10:00 12/04/16 10:42 Vitamin D3 - GT 2,000 unit DAILY [facility] Administration Ergocalciferol 8,000 units 12/02/16 10:00 12/04/16 10:42 Drisdol Oral Solution - GT 8,000 units DAILY [facility] Administration Piperacillin Sod/Tazobactam Sod 50 mls @ 100 mls/hr 11/27/16 11:15 12/04/16 10: 41 Zosyn 3.375gm Ivpb (Pre-Docked) IVPB 100 mls/hr Q8H-IV [facility] Administration Protocol Lactulose 10 gm 11/26/16 22:00 12/04/16 14:10 Cephulac (Oral Use) GT 10 gm TID [facility] Administration Levetiracetam 1,500 mg 11/26/16 22:00 12/04/16 10:42 Keppra Oral Solution - GT 1,500 mg BID [facility] Administration Oxcarbazepine 210 mg 11/26/16 22:00 12/03/16 21:03 Trileptal GT 210 mg HS [facility] Administration Oxcarbazepine 180 mg 11/27/16 10:00 12/04/16 10:43 Trileptal GT 180 mg DAILY [facility] Administration Topiramate 25 mg 11/26/16 22:00 12/04/16 10:42 Topamax - NR 25 mg BID [facility] Administration ASSESSMENT/PLAN 26 year-old female, [place] resident, with a PMH of cerebral palsy, severe mental retardation, spastic quadriplegia, GERD, seizure disorder, recurrent pneumonia, and PEG tube. Sepsis secondary to pneumonia, aspiration v. HCAP; sepsis resolved --Zosyn course complete today Seizure disorder --stable --continue Keppra, trileptal, Topamax, ativan PRN Cerebral palsy Spastic quadriplegia --continue baclofen Functional quadriplegia --fully dependent for all ADLs Elevated transaminases --continue to trend down F/E/N Fluids/Nutrition: Promote @ 40mL/hr; free water Electrolytes: replete as indicated DVT prophylaxis: subq heparin Dispo: plan to discharge Tuesday if remains stable. Full Code. Visit type - Emergency Visit Emergency Visit: Yes ED Registration Date: 11/26/16 Care time: The patient presented to the Emergency Department on the above date and was hospitalized for further evaluation of their emergent condition. - New Patient This patient is new to me today: No - Critical Care Critical Care patient: No
[2016-12-05] MEDS: LACTULOSE 20 GM/30 ML UDC (FOR ORAL USE ONLY) GT SCH ×2 (06:34→14:58)
[2016-12-05] MEDS: BACLOFEN 10 MG TABLET (FP) GT SCH ×2 (06:34→14:57)
[2016-12-05] MEDS: ALBUTEROL SO4 2.5/IPRATROPIUM 0.5 INH SOL 3 ML VIAL.NEB. NEB SCH ×3 (06:49→17:10)
--- NOTE | 2016-12-05 07:36 | DS ---
Physical Exam: SUBJECTIVE: Patient seen and examined OBJECTIVE: Vital Signs Period Temp Pulse Resp BP Sys/Herman Pulse Ox Last 24 Hr 96.7 F-97.8 F 63-82 17-20 90-113/56-70 97-97 PHYSICAL EXAM GENERAL: The patient is awake, alert, and fully oriented, in no acute distress. HEAD: Normal with no signs of trauma. EYES: PERRL, extraocular movements intact, sclera anicteric, conjunctiva clear. ENT: Ears normal, nares patent, oropharynx clear without exudates, moist mucous membranes. NECK: Trachea midline, full range of motion, supple. LUNGS: Breath sounds equal, clear to auscultation bilaterally, no wheezes, no crackles, no accessory muscle use. HEART: Regular rate and rhythm, S1, S2 without murmur, rub or gallop. ABDOMEN: Soft, nontender, nondistended, normoactive bowel sounds, no guarding, no rebound, no hepatosplenomegaly, no masses. EXTREMITIES: 2+ pulses, warm, well-perfused, no edema. NEUROLOGICAL: Cranial nerves II through XII grossly intact. Normal speech, gait not observed. PSYCH: Normal mood, normal affect. SKIN: Warm, dry, normal turgor, no rashes or lesions noted. LABS HOSPITAL COURSE: Date of Admission:11/26/16 Date of Discharge: 12/05/16 Minutes to complete discharge: 35 Discharge Summary Reason For Visit: PNEUMONIA Current Active Problems Pneumonia (Acute) Condition: Improved - Instructions Referrals: Oscar Cheek Jr [Non Staff, Medical] - Disposition: [facility] - Home Medications Comprehensive Discharge Medication List: Ambulatory Orders Baclofen 5 mg GT TID 09/25/16 Cholecalciferol (Vitamin D3) [Vitamin D3] 2,000 unit GT DAILY 09/25/16 Diazepam Rectal Gel [Diastat Rectal Gel -] 10 mg ND PRN PRN 09/25/16 Lactulose 10 gm GT TID 09/25/16 Levetiracetam [levETIRAcetam ORAL SUSPENSION] 1,500 mg GT BID 09/25/16 OXcarbazepine [Trileptal] 180 mg GT DAILY 09/25/16 OXcarbazepine [Trileptal] 210 mg PO HS 09/25/16 Topiramate 25 mg GT BID 04/01/17 Vitrum Liquid 15 ml GT DAILY 09/25/16 Albuterol 0.083% Nebulizer Sobeida [Ventolin 0.083% Nebulizer Soln -] 1 amp NEB PRN PRN 11/26/16 Ipratropium/Albuterol Sulfate [Iprat-Albut 0.5-3(2.5) mg/3 ml] 3 ml NEB Q4HWA PRN 11/26/16 Nystatin/Triamcinolone Top Oin [Mycolog II -] 1 applic TP PRN PRN 11/26/16 This patient is new to me today: No Emergency Visit: Yes ED Registration Date: 11/26/16 Care time: The patient presented to the Emergency Department on the above date and was hospitalized for further evaluation of their emergent condition. Critical Care patient: No - Discharge Referral Referred to [facility] No
[2016-12-05 10:52] VITALS: BP 105/62
[2016-12-05] MEDS ORDERED: PT OWN MED DRAWER 7, Y5N ONE (10:54)
[2016-12-05] MEDS: FERROUS GLUC GT SCH (10:56)
[2016-12-05] MEDS: TOPIRAMATE 25 MG TABLET (FP) NR SCH (10:56)
[2016-12-05] MEDS: CHOLECALCIFEROL (VITAMIN D3) 1,000 UNIT TABLET (FP) GT SCH (10:56)
[2016-12-05] MEDS: MULTIVIT MINERALS GT SCH (10:56)
[2016-12-05] MEDS: levETIRAcetam 500 MG/5 ML ORAL SOLUTION (UNIT-DOSE CUPS) GT SCH (10:57)
[2016-12-05] MEDS: ERGOCALCIFEROL 8,000 UNITS/ML DROPSBTL GT SCH (10:58)
[2016-12-05] MEDS: OXcarbazepine 300 MG/5 ML 250 ML BULK BOTTLE GT SCH (10:59)
--- NOTE | 2016-12-05 11:52 | PN ---
Progress Note (short form) - Note Progress Note: PULMONARY Pt nonverbal. No fevers recorded, appears comfortable. Last Vital Signs Temp Pulse Resp BP Pulse Ox 97.3 F L 74 18 105/62 95 12/05/16 10:00 12/05/16 11:17 12/05/16 10:00 12/05/16 10:00 12/05/16 11:17 Gen: breathing nonlabored Heart: RRR Lung: decreased breath sounds at the bases Abd: soft, nontender Ext: no edema CBC, BMP 12/01/16 05:35 12/03/16 06:20 Active Medications Albuterol/Ipratropium (Duoneb -) 1 amp NEB QIDR [facility] Last Admin: 12/05/16 11:18 Dose: 1 amp Baclofen (Lioresal -) 5 mg GT TID [facility] Last Admin: 12/05/16 06:34 Dose: 5 mg Cholecalciferol (Vitamin D3 -) 2,000 unit GT DAILY [facility] Last Admin: 12/05/16 10:56 Dose: 2,000 unit Ergocalciferol (Drisdol Oral Solution -) 8,000 units GT DAILY [facility] Last Admin: 12/05/16 10:58 Dose: 8,000 units Lactulose (Cephulac (Oral Use)) 10 gm GT TID [facility] Last Admin: 12/05/16 06:34 Dose: 10 gm Levetiracetam (Keppra Oral Solution -) 1,500 mg GT BID [facility] Last Admin: 12/05/16 10:57 Dose: 1,500 mg Oxcarbazepine (Trileptal) 210 mg GT HS [facility] Last Admin: 12/04/16 22:05 Dose: 210 mg Oxcarbazepine (Trileptal) 180 mg GT DAILY [facility] Last Admin: 12/05/16 10:59 Dose: 180 mg Topiramate (Topamax -) 25 mg NR BID [facility] Last Admin: 12/05/16 10:56 Dose: 25 mg A/P Pneumonia likely aspiration Acute Hypoxic Respiratory Failure improved Mental Retardation Cerebral Palsy Seizure Disorder Functional Quadriplegia - antibiotics completed - O2 to keep SpO2 >90% - aspiration/seizure precautions - DVT prophylaxis - d/c planning
--- NOTE | 2016-12-05 12:25 | PN ---
Progress Note, Physician History of Present Illness: stable looks like at baseline - Current Medication List Current Medications: Active Medications Albuterol/Ipratropium (Duoneb -) 1 amp NEB QIDR [facility] Last Admin: 12/05/16 11:18 Dose: 1 amp Baclofen (Lioresal -) 5 mg GT TID [facility] Last Admin: 12/05/16 06:34 Dose: 5 mg Cholecalciferol (Vitamin D3 -) 2,000 unit GT DAILY [facility] Last Admin: 12/05/16 10:56 Dose: 2,000 unit Ergocalciferol (Drisdol Oral Solution -) 8,000 units GT DAILY [facility] Last Admin: 12/05/16 10:58 Dose: 8,000 units Lactulose (Cephulac (Oral Use)) 10 gm GT TID [facility] Last Admin: 12/05/16 06:34 Dose: 10 gm Levetiracetam (Keppra Oral Solution -) 1,500 mg GT BID [facility] Last Admin: 12/05/16 10:57 Dose: 1,500 mg Oxcarbazepine (Trileptal) 210 mg GT HS [facility] Last Admin: 12/04/16 22:05 Dose: 210 mg Oxcarbazepine (Trileptal) 180 mg GT DAILY [facility] Last Admin: 12/05/16 10:59 Dose: 180 mg Topiramate (Topamax -) 25 mg NR BID [facility] Last Admin: 12/05/16 10:56 Dose: 25 mg - Objective Vital Signs: Vital Signs Temperature 97.3 F L 12/05/16 10:00 Pulse Rate 74 12/05/16 11:17 Respiratory Rate 18 12/05/16 10:00 Blood Pressure 105/62 12/05/16 10:00 O2 Sat by Pulse Oximetry (%) 95 12/05/16 11:17 Constitutional: Yes: No Distress, Calm Cardiovascular: Yes: Regular Rate and Rhythm Respiratory: Yes: Regular, On Nasal O2, Rhonchi Gastrointestinal: Yes: Normal Bowel Sounds, Soft Musculoskeletal: Yes: Other Extremities: Yes: Other Neurological: Yes: Alert, Other Labs: CBC, BMP 12/01/16 05:35 12/03/16 06:20 Assessment/Plan (1) Pneumonia Code(s): J18.9 - PNEUMONIA, UNSPECIFIED ORGANISM (2) Acute respiratory failure with hypoxia Code(s): J96.01 - ACUTE RESPIRATORY FAILURE WITH HYPOXIA (3) Cerebral palsy Code(s): G80.9 - CEREBRAL PALSY, UNSPECIFIED (4) Functional quadriplegia Code(s): R53.2 - FUNCTIONAL QUADRIPLEGIA (5) Mental retardation Code(s): F79 - UNSPECIFIED INTELLECTUAL DISABILITIES plan stable continue supportive measures no more abx rest as per primary
--- NOTE | 2016-12-05 14:06 | PN ---
Physical Exam: SUBJECTIVE: Patient seen and examined at bedside. OBJECTIVE: Vital Signs Period Temp Pulse Resp BP Sys/Herman Pulse Ox Last 24 Hr 97.3 F-97.8 F 63-82 17-20 90-113/56-65 95-97 GENERAL/NEURO: The patient is awake. Nonverbal at baseline. HEAD: Normal with no signs of trauma. EYES: PERRL, sclera anicteric, conjunctiva clear. No ptosis. LUNGS: No wheezing appreciated today. Coarse breath sounds. No accessory muscle use. HEART: Regular rate and rhythm, S1, S2 without murmur, rub or gallop. ABDOMEN: Soft, nontender, nondistended, normoactive bowel sounds, no guarding, no rebound, no hepatosplenomegaly, no masses. PEG tube in situ. Surrounding skin intact, no erythema, no warmth, no sign of infection EXTREMITIES: 2+ pulses, warm, well-perfused, no edema. All four extremities are contracted Active Medications Generic Name Dose Route Start Last Admin Trade Name Freq PRN Reason Stop Dose Admin Albuterol/Ipratropium 1 amp 11/27/16 12:00 12/05/16 11:18 Duoneb - NEB 1 amp QIDR [facility] Administration Baclofen 5 mg 11/26/16 22:00 12/05/16 06:34 Lioresal - GT 5 mg TID [facility] Administration Cholecalciferol 2,000 unit 11/27/16 10:00 12/05/16 10:56 Vitamin D3 - GT 2,000 unit DAILY [facility] Administration Ergocalciferol 8,000 units 12/02/16 10:00 12/05/16 10:58 Drisdol Oral Solution - GT 8,000 units DAILY [facility] Administration Lactulose 10 gm 11/26/16 22:00 12/05/16 06:34 Cephulac (Oral Use) GT 10 gm TID [facility] Administration Levetiracetam 1,500 mg 11/26/16 22:00 12/05/16 10:57 Keppra Oral Solution - GT 1,500 mg BID [facility] Administration Oxcarbazepine 210 mg 11/26/16 22:00 12/04/16 22:05 Trileptal GT 210 mg HS [facility] Administration Oxcarbazepine 180 mg 11/27/16 10:00 12/05/16 10:59 Trileptal GT 180 mg DAILY [facility] Administration Topiramate 25 mg 11/26/16 22:00 12/05/16 10:56 Topamax - NR 25 mg BID [facility] Administration ASSESSMENT/PLAN 26 year-old female, [place] resident, with a PMH of cerebral palsy, severe mental retardation, spastic quadriplegia, GERD, seizure disorder, recurrent pneumonia, and PEG tube. Sepsis secondary to pneumonia, aspiration v. HCAP; sepsis resolved --Zosyn course complete Seizure disorder --stable --continue Keppra, trileptal, Topamax, ativan PRN Cerebral palsy Spastic quadriplegia --continue baclofen Functional quadriplegia --fully dependent for all ADLs Elevated transaminases --continue to trend down F/E/N Fluids/Nutrition: Promote @ 40mL/hr; free water Electrolytes: replete as indicated DVT prophylaxis: subq heparin Dispo: discharge tomorrow. Full Code. Visit type - Emergency Visit Emergency Visit: Yes ED Registration Date: 11/26/16 Care time: The patient presented to the Emergency Department on the above date and was hospitalized for further evaluation of their emergent condition. - New Patient This patient is new to me today: No - Critical Care Critical Care patient: No
[2016-12-05 14:53] VITALS: PULSE 65; TEMP 97.9
--- NOTE | 2016-12-05 15:41 | DS ---
Physical Exam: SUBJECTIVE: Patient seen and examined OBJECTIVE: Vital Signs Period Temp Pulse Resp BP Sys/Herman Pulse Ox Last 24 Hr 97.3 F-97.9 F 65-82 17-20 90-105/56-63 95-97 PHYSICAL EXAM GENERAL: The patient is awake, alert, and fully oriented, in no acute distress. HEAD: Normal with no signs of trauma. EYES: PERRL, extraocular movements intact, sclera anicteric, conjunctiva clear. ENT: Ears normal, nares patent, oropharynx clear without exudates, moist mucous membranes. NECK: Trachea midline, full range of motion, supple. LUNGS: Breath sounds equal, clear to auscultation bilaterally, no wheezes, no crackles, no accessory muscle use. HEART: Regular rate and rhythm, S1, S2 without murmur, rub or gallop. ABDOMEN: Soft, nontender, nondistended, normoactive bowel sounds, no guarding, no rebound, no hepatosplenomegaly, no masses. EXTREMITIES: 2+ pulses, warm, well-perfused, no edema. NEUROLOGICAL: Cranial nerves II through XII grossly intact. Normal speech, gait not observed. PSYCH: Normal mood, normal affect. SKIN: Warm, dry, normal turgor, no rashes or lesions noted. LABS HOSPITAL COURSE: Date of Admission:11/26/16 Date of Discharge: 12/05/16 Discharge Summary Reason For Visit: PNEUMONIA Current Active Problems Pneumonia (Acute) Condition: Improved - Instructions Referrals: Oscar Cheek Jr [Non Staff, Medical] - Disposition: [facility] FACILITY - Home Medications Comprehensive Discharge Medication List: Ambulatory Orders Baclofen 5 mg GT TID 09/25/16 Cholecalciferol (Vitamin D3) [Vitamin D3] 2,000 unit GT DAILY 09/25/16 Diazepam Rectal Gel [Diastat Rectal Gel -] 10 mg UT PRN PRN 09/25/16 Lactulose 10 gm GT TID 09/25/16 Levetiracetam [levETIRAcetam ORAL SUSPENSION] 1,500 mg GT BID 09/25/16 OXcarbazepine [Trileptal] 180 mg GT DAILY 09/25/16 OXcarbazepine [Trileptal] 210 mg PO HS 09/25/16 Topiramate 25 mg GT BID 09/25/16 Vitrum Liquid 15 ml GT DAILY 09/25/16 Albuterol 0.083% Nebulizer Sobeida [Ventolin 0.083% Nebulizer Soln -] 1 amp NEB PRN PRN 11/26/16 Ipratropium/Albuterol Sulfate [Iprat-Albut 0.5-3(2.5) mg/3 ml] 3 ml NEB Q4HWA PRN 11/26/16 Nystatin/Triamcinolone Top Oin [Mycolog II -] 1 applic TP PRN PRN 11/26/16 - Discharge Referral Referred to [facility] No
== END 2016-12-05 17:44 | disposition home or self-care (01) | DRG 871 ==
LOC: JER 15:22 → JERBED 18:05 → J6S 21:54
PROVIDERS: ADMIT Internal Medicine; ATTEND Nurse Practitioner Acute Care
DX: A41.9 Sepsis, unspecified organism (principal); J69.0 Pneumonitis due to inhalation of food and vomit; G80.0 Spastic quadriplegic cerebral palsy; R53.2 Functional quadriplegia; J96.01 Acute respiratory failure with hypoxia; F72 Severe intellectual disabilities; I34.0 Nonrheumatic mitral (valve) insufficiency; G40.909 Epilepsy, unspecified, not intractable, without status epilepticus; H54.7 Unspecified visual loss; K21.9 Gastro-esophageal reflux disease without esophagitis; M41.9 Scoliosis, unspecified; J45.909 Unspecified asthma, uncomplicated; R74.0 Nonspecific elevation of levels of transaminase and lactic acid dehydrogenase [LDH]; Z93.1 Gastrostomy status
CPT/HCPCS: 36415; 71010-TC; 80048; 80053; 80076; 81003; 81015; 83605; 83735; 84100; 85025; 86704; 86706; 86708; 87040; 87086; 87340; 94640; 94761; 99285-25; J0475; J1644

== ENCOUNTER 2017-02-05 12:33 | Inpatient (IN) | payer OTHER ==
[2017-02-05] MEDS ORDERED: ALBUTEROL SO4 2.5/IPRATROPIUM 0.5 INH SOL 3 ML VIAL.NEB. NEB ONE (12:48)
--- NOTE | 2017-02-05 12:51 | PDOC ---
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) Exam Limitations: Other (MR) - History of Present Illness Timing/Duration: reports: this morning Past History - Past Medical History Allergies/Adverse Reactions: Allergies Allergy/AdvReac Type Severity Reaction Status Date / Time No Known Allergies Allergy Verified 02/05/17 12:40 Home Medications: Ambulatory Orders Albuterol 0.083% Nebulizer Sobeida [Ventolin 0.083%] 1 neb NEB PRN PRN 02/05/17 Baclofen 5 mg GT TID 02/05/17 Cholecalciferol (Vitamin D3) [Vitamin D3] 2,000 unit GT DAILY 02/05/17 Diazepam [Diastat Acudial] 1 each RC PRN PRN 02/05/17 Ipratropium/Albuterol Sulfate [Iprat-Albut 0.5-3(2.5) mg/3 ml] 3 ml IH PRN PRN 02/05/17 Lactulose 15 gm GT TID 02/05/17 Levetiracetam 1,500 mg GT BID 02/05/17 Multivit-Min/FA/Lycopen/Lutein [Vitrum 50+ Senior Tablet] 1 each PO DAILY OXcarbazepine [Trileptal] 180 mg GT DAILY 02/05/17 OXcarbazepine [Trileptal] 210 mg GT HS 02/05/17 Sennosides/Docusate Sodium [Senna-S Tablet] 2 each GT HS 02/05/17 Topiramate [Trokendi Xr] 25 mg GT BID 02/05/17 GI Disorders: Yes (GERD. GTUBE.) Seizures: Yes (EPILEPSY.) - Surgical History Abdominal Surgery: Yes GI Surgery: Yes (GTUBE.) Neurologic Surgery: Yes (SPINAL SX.) - Psycho/Social/Smoking Cessation Hx Anxiety: No Suicidal Ideation: No Smoking History: Never smoked Have you smoked in the past 12 months: No Number of Cigarettes Smoked Daily: 0 Hx Alcohol Use: No Drug/Substance Use Hx: No Substance Use Type: None Hx Substance Use Treatment: No Review of Systems - Review of Systems Able to Perform ROS?: No Constitutional: No: Fever Respiratory: Yes: Cough. No: Wheezing *Physical Exam - Physical Exam Gastrointestinal/Abdominal: positive: Soft Integumentary: positive: Dry, Warm Neurologic: positive: Alert ED Treatment Course - LABORATORY CBC & Chemistry Diagram: 02/05/17 13:40 02/05/17 13:40 Medical Decision Making - Medical Decision Making 02/05/17 12:49 26 yo F, cerebral palsy, severe MR, quadraplegia, seizure d/o, PEG, GERD, recurrent pneumonias, some requiring ICU admissions, sent from [facility] for congestion w/ cough. No fevers See exam R/o recurrent PNA Hypotensive, hypoxic, tachypneic and hypothermic w/ rhonchorus lungs -empirical abx -IV abx -gianluca moises -CXR -labs -admit 02/05/17 14:50 K 3.1, will replete via PEG. Elevated LFTs, similar to labs in the past, wbc wnl. CXR w/ no obvious infiltrate. Of note, no obvious infiltrate during last admission for PNA which was thought to be 2/2 aspiration as per ID notes. Will contact hospitalist and admit 02/05/17 15:36 02/05/17 15:37 02/05/17 15:37 *DC/Admit/Observation/Transfer Diagnosis at time of Disposition: Pneumonia Qualifiers: Pneumonia type: due to unspecified organism Laterality: unspecified laterality Lung location: unspecified part of lung Qualified Code(s): J18.9 - Pneumonia, unspecified organism - Discharge Dispostion Condition at time of disposition: Fair Admit: Yes - Referrals Referrals: Austin Briggs MD [Primary Care Provider] -
[2017-02-05 13:03] VITALS: BMI 29.2
--- NOTE | 2017-02-05 13:25 | PDOC ---
*Physical Exam - Vital Signs Last Vital Signs Temp Pulse Resp BP Pulse Ox 93.5 F L 94 H 24 97/82 96 02/05/17 12:36 02/05/17 12:36 02/05/17 12:36 02/05/17 12:36 02/05/17 12:36 ED Treatment Course - LABORATORY CBC & Chemistry Diagram: 02/07/17 07:40 02/07/17 07:40 Medical Decision Making - Medical Decision Making 02/05/17 13:25 Pt seen by the Advanced Practice Provider under my direct supervision Ancillary studies reviewed I agree with plan as outlined by the Advanced Practice Provider ALEJANDRINA Perez *DC/Admit/Observation/Transfer Diagnosis at time of Disposition: Pneumonia - Discharge Dispostion Condition at time of disposition: Fair
[2017-02-05] MEDS ORDERED: AZITHROMYCIN IVPB 500 MG in DEXTROSE 5%-WATER - 250 ML IVPB ONE (13:27)
[2017-02-05] MEDS ORDERED: CEFEPIME HCL 2 GM VIAL (RESTRICTED TO ID) IVPB ONE (13:27)
[2017-02-05] MEDS ORDERED: VANCOMYCIN 1,000 MG in DEXTROSE 5%-WATER - 250 ML IVPB ONE (13:27)
[2017-02-05] MEDS ORDERED: AZITHROMYCIN IVPB 250 ML IVPB ONE ×2 (13:44→13:46)
[2017-02-05] MEDS ORDERED: CEFEPIME 100 ML IVPB ONE (13:47)
[2017-02-05] MEDS ORDERED: VANCOMYCIN 1 GRAM (PRE-DOCKED) 250 ML IVPB ONE (13:47)
[2017-02-05 13:48] LABS: VENOUS BLOOD GAS HCO3 21.3 meq/L (19-25); VENOUS PH 7.28 (7.32-7.42)
[2017-02-05 13:50] LABS: MCH 32.7 pg (25.7-33.7); MCHC 32.8 g/dl (32.0-36.0); MEAN CELL VOLUME 99.8 fl (80-96); MEAN PLT VOLUME 8.9 fl (7.5-11.1); PLATELET COUNT 151 K/MM3 (134-434); RDW 14.6 % (11.6-15.6); WHITE BLOOD COUNT 11.3 K/mm3 (4.0-10.0)
[2017-02-05 14:05] LABS: ALBUMIN 3.3 g/dl (3.4-5.0); ALK PHOS 267 U/L (45-117); ANION GAP 11 (8-16); BILIRUBIN,TOTAL 0.2 mg/dL (0.2-1.0); CALCIUM 8.3 mg/dL (8.5-10.1); CO2 21 mmol/L (21-32); CREATININE 0.3 mg/dL (0.55-1.02); GLUCOSE,RANDOM 93 mg/dL (74-106); SGOT/AST 62 U/L (15-37); SGPT/ALT 124 U/L (12-78); TOT PROT 6.9 g/dl (6.4-8.2)
[2017-02-05] MEDS ORDERED: POTASSIUM CHLORIDE TABS 20 MEQ TABLET.ER (FP) PO ONE (14:17)
[2017-02-05] MEDS ORDERED: POTASSIUM CHLORIDE ORAL LIQUID 20 MEQ/15 ML ONE (14:26)
[2017-02-05 15:28] LABS: PLATELET ESTIMATE ADEQUATE (NORMAL)
[2017-02-05] MEDS ORDERED: diazePAM ACUDIAL 5-7.5-10 MG 1 EACH KIT RC PRN (16:16)
--- NOTE | 2017-02-05 17:50 | PN ---
Teaching Attending Note Name of Resident: Ekta Wan ATTENDING PHYSICIAN STATEMENT I saw and evaluated the patient. I reviewed the resident's note and discussed the case with the resident. I agree with the resident's findings and plan as documented. SUBJECTIVE: CC: increased secretions and tachypnea HPI: obtained form aid at bed side. she was noted to be tachypnic and with increased secretions at [place]. No fever . She was suctioned and had yellow secretions. . upon arrival to ER she was hypothermic T93. and was placed on Jin hugger , and given ABx [facility] staff to be called for further details OBJECTIVE: Awake , tachypnic , gurgling. cough No facial asymmetry , has no LAP inneck. CV: RRR, tachy. Lungs: increased rales on L base anteriorly. Abd: absent BS. ND , NT, Peg in . Neuro : very limited. no facial droop. pupils , round equal and minimally reactive to light ASSESSMENT AND PLAN: 26 y/o lady with h/o severe mental retardation ,cerebral palsy quadriplegia, recurrent PNAs , and seizure disorder who was sent from [place] with increased secretions and tachypnea. She was found to be septic with hypothermia 1- Sepsis: Source of infection is likely the lung especially with sx of increased secretions and cough , although Cxray does not show any infliltrate. Likely aspiration PNA . - Start zosyn to cover for aspiration . Add vanco since she comes from [place]. - IVF - jin hugger . - CT chest likely will not spinning frame changer , unless she does not improve - check KUB as bowel sounds are absent - follow blood cx - Monitor in ICU - O2 Via C - Mucomyst , and Nebulizers. 2- H/o Seizure: had a seizure inER. will get more info ifrom [facility]. It seems like seizure med( oxcarbazepine ) was increased recently, probably due ot un- controlled seizures. - cont current meds - if seizure recur , will consult neuro - ativan PRN 3- Nutrition , cont TUbe feeds ICU admission . CCT 45 min
[2017-02-05] MEDS ORDERED: TOPIRAMATE 200 MG TABLET (FP) GT SCH ×2 (18:00→22:00)
[2017-02-05 18:46] LABS: ARTERIAL BLD GAS O2 SATURATION 97.7 % (90-98.9); ARTERIAL BLOOD GAS BASE EXCESS -3.9 meq/l (-2-2); ARTERIAL BLOOD GAS HCO3 21.2 meq/L (22-26); ARTERIAL BLOOD GAS PO2 92.9 mmHg (80-100)
[2017-02-05 18:49] LABS: ALLENS TEST POSITIVE; ARTERIAL BLOOD GAS pH 7.33 (7.35-7.45)
[2017-02-05 18:50] LABS: ART PUNCT SITE RIGHT RADIAL; LPM/O2% 3LPM; PT. ON O2? YES; TYPE OF O2 NASAL
--- NOTE | 2017-02-05 20:54 | CONSULT ---
Consult Consult Specialty:: PULMONARY/CRITICAL CARE Referred by:: Dr Richardson Reason for Consultation:: pneumonia, sepsis - History of Present Illness Chief Complaint: SOB History of Present Illness: Briefly, 26 y/o woman with CP, severe developmental delay, quadraplegia, seizures, dysphagia, GERD, recurrent pneumonias, presents to the ED with SOB, hypoxia and hypothermia, pulmonic sepsis. She was cultured, started on Vanc/ Zosyn and admitted to the ICU on 4L nasal oxygen. 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, Other (CP) Pulmonary: Yes: Asthma, Pneumonia ...: No - Alcohol/Substance Use Hx Alcohol Use: No - Smoking History Smoking history: Never smoked Have you smoked in the past 12 months: No Aproximately how many cigarettes per day: 0 - Social History Usual Living Arrangement: Prison History of Recent Travel: No Home Medications - Allergies Allergies/Adverse Reactions: Allergies Allergy/AdvReac Type Severity Reaction Status Date / Time No Known Allergies Allergy Verified 02/05/17 12:40 - Home Medications Home Medications: Ambulatory Orders Albuterol 0.083% Nebulizer Sobeida [Ventolin 0.083%] 1 neb NEB PRN PRN 02/05/17 Baclofen 5 mg GT TID 02/05/17 Cholecalciferol (Vitamin D3) [Vitamin D3] 2,000 unit GT DAILY 02/05/17 Diazepam [Diastat Acudial] 10 mg RC PRN PRN 02/05/17 Ipratropium/Albuterol Sulfate [Iprat-Albut 0.5-3(2.5) mg/3 ml] 3 ml IH Q4HWA PRN 02/05/17 Lactulose 15 gm GT TID 02/05/17 Levetiracetam 1,500 mg GT BID 02/05/17 Multivit-Min/FA/Lycopen/Lutein [Vitrum 50+ Senior Tablet] 1 each PO DAILY Nystatin Ointment [Mycostatin Ointment -] 1 applic TP PRN PRN 02/05/17 OXcarbazepine [Trileptal] 180 mg GT DAILY 02/05/17 OXcarbazepine [Trileptal] 210 mg GT HS 02/05/17 Topiramate 200 mg GT BID 02/05/17 Topiramate [Trokendi Xr] 25 mg GT BID 02/05/17 Family Disease History - Family Disease History Family History: Unremarkable Review of Systems Unable to obtain ROS, reason: unresponsive Physical Exam Vital Signs: Vital Signs Temperature 96.6 F L 02/05/17 20:11 Pulse Rate 92 H 02/05/17 20:11 Respiratory Rate 35 H 02/05/17 20:11 Blood Pressure 96/63 02/05/17 20:11 O2 Sat by Pulse Oximetry (%) 95 02/05/17 19:00 Constitutional: Yes: Moderate Distress Eyes: Yes: WNL HENT: Yes: Drooling Neck: Yes: Decreased ROM Cardiovascular: Yes: Tachycardia, S1, S2 Respiratory: Yes: Diminished Gastrointestinal: Yes: Soft Musculoskeletal: Yes: Other (contracted) Extremities: Yes: Cool, Other (contracted) Edema: No Peripheral Pulses WNL: Yes Neurological: Yes: Other (unresponsive) Imaging - Results Chest X-ray: Image Reviewed Problem List - Problems (1) Pneumonia Code(s): J18.9 - PNEUMONIA, UNSPECIFIED ORGANISM Qualifiers: Pneumonia type: due to unspecified organism Laterality: unspecified laterality Lung location: unspecified part of lung Qualified Code(s): J18.9 - Pneumonia, unspecified organism (2) Acute respiratory failure with hypoxia Code(s): J96.01 - ACUTE RESPIRATORY FAILURE WITH HYPOXIA (3) Cerebral palsy Code(s): G80.9 - CEREBRAL PALSY, UNSPECIFIED (4) Functional quadriplegia Code(s): R53.2 - FUNCTIONAL QUADRIPLEGIA (5) Mental retardation Code(s): F79 - UNSPECIFIED INTELLECTUAL DISABILITIES (6) Seizure disorder Code(s): G40.909 - EPILEPSY, UNSP, NOT INTRACTABLE, WITHOUT STATUS EPILEPTICUS Assessment/Plan CP Functional quadriplegia Seizures Severe developmental delay Pulmonic sepsis Hypoxia -Oxygen -Abx - Vanc/Zosyn ok - has history of MSSA and sensitive PSA -Follow cultures -Gentle fluids -Restart home meds Monitor in ICU Thank you for this interesting consult Horace Ashton Pulm/Critical Care MAT INSPECTOR
[2017-02-05] MEDS ORDERED: PT OWN MED DRAWER 7, Y5N ONE (21:06)
[2017-02-05] MEDS: PIPERACILLIN/TAZOB 3.375 GM/50 ML PRE-DOCKED IVPB SCH (21:19)
[2017-02-05] MEDS: HEPARIN NA (PORCINE) 5,000 UNITS/ML 1ML VIAL SQ SCH (21:19)
[2017-02-05] MEDS: SODIUM CHLORIDE 1,000 ML IV SCH (21:56)
[2017-02-05] MEDS: TOPIRAMATE GT SCH (21:57)
[2017-02-05] MEDS: levETIRAcetam 500 MG/5 ML ORAL SOLUTION (UNIT-DOSE CUPS) GT SCH (21:58)
[2017-02-05] MEDS: OXcarbazepine 300 MG/5 ML 250 ML BULK BOTTLE GT SCH (22:00)
[2017-02-05] MEDS ORDERED: OXcarbazepine 300 MG/5 ML 250 ML BULK BOTTLE PO SCH (22:00)
[2017-02-05] MEDS ORDERED: NYSTATIN 100000 UNIT/GM TOPICAL OINTMENT 15 GM TUBE TP SCH (22:00)
[2017-02-05] MEDS ORDERED: levETIRAcetam 500 MG/5 ML ORAL SOLUTION (UNIT-DOSE CUPS) GT SCH (22:00)
[2017-02-05] MEDS ORDERED: TOPIRAMATE 25 MG TABLET (FP) PO SCH (22:00)
[2017-02-05] MEDS: MUPIROCIN 2% TOPICAL OINTMENT FOR DECOLONIZATION NS SCH (22:01)
[2017-02-05] MEDS: BACLOFEN 10 MG TABLET (FP) GT SCH (22:01)
[2017-02-05] MEDS: CHLORHEXIDINE GLUCONATE 4% CLEANSER FOR DECOLONIZATION TP SCH (22:01)
--- NOTE | 2017-02-05 23:02 | HP ---
CHIEF COMPLAINT: Cough, increased secretions, labored breathing HISTORY OF PRESENT ILLNESS: Pt is a 26yo F from [facility] with severe MR, spastic quadriplegia, epilepsy, and hx of recurrent PNAs presents from [place] after she was found to have increase cough and congestion. History was obtained by her aid who was at bedside. Aid states that in addition to coughing, pt was having labored breathing. She was suctioned and yellow secretions was obtained. Unsure if patient had more seizures recently or witnessed aspiration. She was afebrile at [place], with labored respirations over 20, stable BP. Pt has been to this facility multiple times for PNA, and treated succesfully on Zosyn x7days. When she arrived in the Emergency Dept her T was 93.5, and placed on iganluca hugger. She was given Azithromycin, Vancomycin, and Cefepime. ER course was notable for: (1) Labs (2) Antibiotics (3) Gianluca Hugger Recent Travel: None PAST MEDICAL HISTORY: Cerebral Palsy, Severe MR, Spastic Quadriplegic, Seizure Disorder, Recurrent PNA, PEG, Esophageal Reflux, Corticol Blindness PAST SURGICAL HISTORY: Scoliosis surgery, PEG tube Social History: Smoking: Denies Alcohol: Denies Drugs: Denies Family History: Noncontributory Allergies No Known Allergies Allergy (Verified 02/05/17 12:40) HOME MEDICATIONS: Home Medications Medication Instructions Recorded Albuterol 0.083% Nebulizer Sobeida 1 neb NEB PRN PRN 02/05/17 [Ventolin 0.083%] Baclofen 5 mg GT TID 02/05/17 Cholecalciferol (Vitamin D3) 2,000 unit GT DAILY 02/05/17 [Vitamin D3] Diazepam [Diastat Acudial] 10 mg RC PRN PRN 02/05/17 Ipratropium/Albuterol Sulfate 3 ml IH Q4HWA PRN 02/05/17 [Iprat-Albut 0.5-3(2.5) mg/3 ml] Lactulose 15 gm GT TID 02/05/17 Levetiracetam 1,500 mg GT BID 02/05/17 Multivit-Min/FA/Lycopen/Lutein 1 each PO DAILY 02/05/17 [Vitrum 50+ Senior Tablet] Nystatin Ointment [Mycostatin 1 applic TP PRN PRN 02/05/17 Ointment -] OXcarbazepine [Trileptal] 180 mg GT DAILY 02/05/17 OXcarbazepine [Trileptal] 210 mg GT HS 02/05/17 Topiramate 200 mg GT BID 02/05/17 Topiramate [Trokendi Xr] 25 mg GT BID 02/05/17 REVIEW OF SYSTEMS Pt was unable to answer ROS PHYSICAL EXAMINATION Vital Signs - 24 hr 02/05/17 02/05/17 02/05/17 16:05 16:08 17:20 Temperature 95.0 F L Pulse Rate Pulse Rate [ 96 H 98 H Apical] Respiratory 24 24 Rate Blood Pressure Blood Pressure 109/84 102/57 [Right Arm] O2 Sat by Pulse 95 95 Oximetry (%) 02/05/17 02/05/17 19:00 20:11 Temperature 96.6 F L Pulse Rate 92 H Pulse Rate [ Apical] Respiratory 24 35 H Rate Blood Pressure 96/63 Blood Pressure [Right Arm] O2 Sat by Pulse 95 Oximetry (%) GEN: Awake, alert, eyes open, NAD, pt was coughing, gurgling HEENT: PERRLA, no cervical LAD CV: S1, S2, RRR, no murmur appreciated LUNG: Rales/rhonchi anteriorly, unique in LLbase ABD: Soft, ND, pt has pEG tube, hypoactive BS MSK: 2+ pulses, well perfused, no edema NEURO: Exam limited. PERRLA, no facial droop. Laboratory Results - last 24 hr 02/05/17 18:45 Puncture Site Right radial ABG pH 7.33 L ABG pCO2 at Pt Temp 41.1 ABG pO2 at Pt Temp 92.9 D ABG HCO3 21.2 L ABG O2 Sat (Measured) 97.7 ABG O2 Content 15.3 ABG Base Excess -3.9 L Sen Test Positive O2 Delivery Device Nasal Oxygen Flow Rate 3lpm PEEP 0.0 ASSESSMENT/PLAN: Pt is a 26yo F from [place] with severe MR, CP, spastic quadriplegia, seizure dz, with recurrent PNAs who presented with sepsis. # Sepsis likely 2/2 PNA - Aspiration vs HCAP - Though CXR appears WNL, clinical picture is of PNA - F/u Blood cx (taken before abx) - Start Zosyn 3.375mg IV Q6 for pseudomonas + anaerobes - Start Vanco 1g QD IV for MRSA since pt comes from [place] - Alina + Mucomist nebs - Sputum cx - Gianluca hugger as needed - ABG - O2 4L as needed - ID consult # Hypoactive BS - F/u KUB # Transaminitis - Chronic - Hepatocellular pictures, less likely obstructive - Can f/u outpatient with imaging + autoimmune labs # Hx of Seizures - Called [facility], spoke to Nursing Local Bulk Driver ([phone]), states pt has seizures "once in a while" without specific timeline, denies any recent increase in seizure frequency or any recent medication changes. - Pt had one seizure in ER, 10 sec, resolved w/o Ativan - Reconciled seizure meds - Continue in hospital (Keppra, Oxcarb, Topamax, Rectal DIazepam PRN) - Ativan PRN for new seizure - If pt presents with new seizures, consider Neuro consult # Hx of Spastic CP - Continue Baclofen # Hx of Constipation - Continue Senna and lactulose # FEN - Fluids: IVNS 100cc/hr - Electrolytes: Monitor, given 40meq PO of KCl through G tube - Nutrition: Continue bolus tube feeds # Prophylaxis - DVT: Pt is high risk, Heparin SQ TID - GI: Not indicated # Dispo - Transfer to ICU # Med Rec - Medications reconciled with chart from [facility] on 02/05 Dr. Ekta Wan, PGY1 - Internal Medicine Visit type - Emergency Visit Emergency Visit: Yes ED Registration Date: 02/05/17 Care time: The patient presented to the Emergency Department on the above date and was hospitalized for further evaluation of their emergent condition. - New Patient This patient is new to me today: Yes Date on this admission: 02/12/17 - Critical Care Critical Care patient: No
[2017-02-05] MEDS: ALBUTEROL SO4 2.5/IPRATROPIUM 0.5 INH SOL 3 ML VIAL.NEB. NEB SCH (23:30)
[2017-02-05] MEDS: ACETYLCYSTEINE 20% 200MG/ML 4 ML VIAL *FOR ORAL / INH USE ONLY NEB SCH (23:30)
[2017-02-06] MEDS: ALBUTEROL SO4 2.5/IPRATROPIUM 0.5 INH SOL 3 ML VIAL.NEB. NEB SCH ×5 (00:05→23:08)
[2017-02-06] MEDS: ACETYLCYSTEINE 20% 200MG/ML 4 ML VIAL *FOR ORAL / INH USE ONLY NEB SCH (00:05)
[2017-02-06] MEDS: PIPERACILLIN/TAZOB 3.375 GM/50 ML PRE-DOCKED IVPB SCH (03:07)
[2017-02-06] MEDS: SCOPOLAMINE HYDROBROMIDE 1 PATCH PATCH.TD72 TD SCH (03:10)
[2017-02-06 06:25] LABS: MCHC 34.7 g/dl (32.0-36.0); MEAN CELL VOLUME 97.7 fl (80-96); MEAN PLT VOLUME 9.1 fl (7.5-11.1); PLATELET COUNT 136 K/MM3 (134-434); RDW 14.9 % (11.6-15.6); WHITE BLOOD COUNT 10.3 K/mm3 (4.0-10.0)
[2017-02-06] MEDS: OXcarbazepine 300 MG/5 ML 250 ML BULK BOTTLE GT SCH ×2 (06:42→22:42)
[2017-02-06] MEDS: levETIRAcetam 500 MG/5 ML ORAL SOLUTION (UNIT-DOSE CUPS) GT SCH ×2 (06:42→17:33)
[2017-02-06] MEDS: HEPARIN NA (PORCINE) 5,000 UNITS/ML 1ML VIAL SQ SCH ×3 (06:44→22:39)
[2017-02-06] MEDS: BACLOFEN 10 MG TABLET (FP) GT SCH ×3 (06:45→22:39)
[2017-02-06] MEDS: TOPIRAMATE GT SCH ×2 (06:46→17:32)
[2017-02-06 07:05] LABS: ALBUMIN 2.6 g/dl (3.4-5.0); ANION GAP 10 (8-16); CALCIUM 8.1 mg/dL (8.5-10.1); CO2 22 mmol/L (21-32); GLUCOSE,RANDOM 79 mg/dL (74-106)
[2017-02-06 07:10] LABS: ALK PHOS 225 U/L (45-117); BILIRUBIN,TOTAL 0.4 mg/dL (0.2-1.0); CREATININE 0.3 mg/dL (0.55-1.02); SGOT/AST 77 U/L (15-37); SGPT/ALT 127 U/L (12-78); TOT PROT 5.7 g/dl (6.4-8.2)
--- NOTE | 2017-02-06 09:11 | PN ---
Progress Note (short form) - Note Progress Note: Subjective: unable to take hx no events over night Objective: Vital Signs: Last Vital Signs Temp Pulse Resp BP Pulse Ox 96.6 F L 104 H 20 96/47 96 02/06/17 08:00 02/06/17 08:00 02/06/17 08:00 02/06/17 08:00 02/06/17 08:13 Laboratory Results - last 24 hr 02/05/17 02/05/17 02/05/17 13:40 13:40 13:40 WBC 11.3 H D RBC 3.76 D Hgb 12.3 D Hct 37.5 D MCV 99.8 H MCH 32.7 MCHC 32.8 RDW 14.6 Plt Count 151 MPV 8.9 Neutrophils % 85.0 H D Lymphocytes % 13.0 D Monocytes % 1.0 L D Band Neutrophils 1.0 Differential Comment Manual diff done Platelet Estimate Adequate Puncture Site ABG pH ABG pCO2 at Pt Temp ABG pO2 at Pt Temp ABG HCO3 ABG O2 Sat (Measured) ABG O2 Content ABG Base Excess Sen Test VBG pH POC VBG pCO2 POC VBG pO2 Mixed VBG HCO3 O2 Delivery Device Oxygen Flow Rate PEEP Sodium 141 Potassium 3.1 L D Chloride 109 H Carbon Dioxide 21 D Anion Gap 11 BUN 13 Creatinine 0.3 L D Creat Clearance w eGFR > 60 Random Glucose 93 Lactic Acid Calcium 8.3 L Total Bilirubin 0.2 AST 62 H D ALT 124 H D Alkaline Phosphatase 267 H D Total Protein 6.9 Albumin 3.3 L Serum , Qual Negative 02/05/17 02/05/17 02/05/17 13:45 14:20 18:45 WBC RBC Hgb Hct MCV MCH MCHC RDW Plt Count MPV Neutrophils % Lymphocytes % Monocytes % Band Neutrophils Differential Comment Platelet Estimate Puncture Site Right radial ABG pH 7.33 L ABG pCO2 at Pt Temp 41.1 ABG pO2 at Pt Temp 92.9 D ABG HCO3 21.2 L ABG O2 Sat (Measured) 97.7 ABG O2 Content 15.3 ABG Base Excess -3.9 L Sen Test Positive VBG pH 7.28 L POC VBG pCO2 46.6 POC VBG pO2 80.0 H Mixed VBG HCO3 21.3 O2 Delivery Device Nasal Oxygen Flow Rate 3lpm PEEP 0.0 Sodium Potassium Chloride Carbon Dioxide Anion Gap BUN Creatinine Creat Clearance w eGFR Random Glucose Lactic Acid 1.6 Calcium Total Bilirubin AST ALT Alkaline Phosphatase Total Protein Albumin Serum , Qual 02/06/17 02/06/17 05:35 05:35 WBC 10.3 H RBC 3.19 L Hgb 10.8 D Hct 31.2 L D MCV 97.7 H MCH 34.0 H MCHC 34.7 RDW 14.9 Plt Count 136 MPV 9.1 Neutrophils % Lymphocytes % Monocytes % Band Neutrophils Differential Comment Platelet Estimate Puncture Site ABG pH ABG pCO2 at Pt Temp ABG pO2 at Pt Temp ABG HCO3 ABG O2 Sat (Measured) ABG O2 Content ABG Base Excess Sen Test VBG pH POC VBG pCO2 POC VBG pO2 Mixed VBG HCO3 O2 Delivery Device Oxygen Flow Rate PEEP Sodium 143 Potassium 3.8 D Chloride 111 H Carbon Dioxide 22 Anion Gap 10 BUN 9 D Creatinine 0.3 L Creat Clearance w eGFR > 60 Random Glucose 79 Lactic Acid Calcium 8.1 L Total Bilirubin 0.4 D AST 77 H D ALT 127 H Alkaline Phosphatase 225 H Total Protein 5.7 L Albumin 2.6 L D Serum , Qual Physical Exam: comfortable , tachypnic . No facial asymmetry , has no LAP in neck. CV: RRR, tachy( less than yesterday ) . Lungs: increased rales on L base anteriorly. Abd: Nl BS today . ND , NT, Peg in . ASSESSMENT AND PLAN: 26 y/o lady with h/o severe mental retardation ,cerebral palsy quadriplegia, recurrent PNAs , and seizure disorder who was sent from [place] with increased secretions and tachypnea. She was found to be septic with hypothermia 1- Sepsis: Source of infection is likely the lung especially with sx of increased secretions and cough , although Cxray does not show any infliltrate. Likely aspiration PNA. WBc improved and tachycardia improved . Hypothermia resolved - Cont zosyn to cover for aspiration. will ocnt vanco if indicated by ID - IVF, will probably decrease rate later today - CT chest likely will not tar heat exchanger cleaner , unless she does not improve - follow blood cx - venti mask 50 % - Mucomyst , and Nebulizers. 2- H/o Seizure: had a seizure in ER which resolved after 10 sec. at base line has intermittent seizures. - cont current meds - if seizure recur , will consult neuro - ativan PRN 3- Nutrition , cont TUbe feeds Visit type - Emergency Visit Emergency Visit: Yes ED Registration Date: 02/05/17 Care time: The patient presented to the Emergency Department on the above date and was hospitalized for further evaluation of their emergent condition. - New Patient This patient is new to me today: No - Critical Care Critical Care patient: Yes Total Critical Care Time (in minutes): 25
--- NOTE | 2017-02-06 09:44 | PN ---
Progress Note (short form) - Note Progress Note: Patient seen and examined in the ICU. Lethargic and non-verbal on VM O2. No pressors. CXR : yesterday : Elevated Left diaphragm / (?) infiltrate Intake & Output 02/03/17 02/04/17 02/05/17 02/06/17 23:59 23:59 23:59 23:59 Intake Total 100 Balance 100 Weight 135 lb Last Vital Signs Temp Pulse Resp BP Pulse Ox 96.6 F L 104 H 20 96/47 96 02/06/17 08:00 02/06/17 08:00 02/06/17 08:00 02/06/17 08:00 02/06/17 08:13 Active Medications Albuterol/Ipratropium (Duoneb -) 1 amp NEB QIDR [facility] Last Admin: 02/06/17 06:54 Dose: 1 amp Baclofen (Lioresal -) 5 mg GT TID [facility] Last Admin: 02/06/17 06:45 Dose: 5 mg Chlorhexidine Gluconate (Hibiclens For Decolonization -) 1 applic TP HS [facility] Last Admin: 02/05/17 22:01 Dose: 1 applic Diazepam (Diastat Rectal Gel -) 10 mg RC PRN PRN PRN Reason: ANXIETY Heparin Sodium (Porcine) (Heparin -) 5,000 unit SQ TID [facility] Last Admin: 02/06/17 06:44 Dose: 5,000 unit Sodium Chloride (Normal Saline -) 1,000 mls @ 100 mls/hr IV ASDIR [facility] Last Admin: 02/05/17 21:56 Dose: 100 mls/hr Vancomycin HCl (Vancomycin (Pre-Docked)) 250 mls @ 250 mls/hr IVPB ONCE ONE PRN Reason: Protocol Stop: 02/06/17 10:59 Vancomycin HCl (Vancomycin (Pre-Docked)) 250 mls @ 250 mls/hr IVPB DAILY [facility] PRN Reason: Protocol Lactulose (Cephulac (Oral Use)) 10 gm GT TID PRN PRN Reason: CONSTIPATION Levetiracetam (Keppra Oral Solution -) 1,500 mg GT BID@0630,1830 [facility] Last Admin: 02/06/17 06:42 Dose: 1,500 mg Lorazepam (Ativan Injection -) 2 mg IVPUSH ONCE PRN PRN Reason: AGITATION Stop: 02/06/17 16:29 Mupirocin (Bactroban Ointment (For Decolonization) -) 1 applic NS BID [facility] Stop: 02/10/17 21:59 Last Admin: 02/05/17 22:01 Dose: 1 applic Oxcarbazepine (Trileptal) 180 mg GT DAILY@0630 [facility] Last Admin: 02/06/17 06:42 Dose: 180 mg Oxcarbazepine (Trileptal) 210 mg GT DAILY@1900 [facility] Last Admin: 02/05/17 22:00 Dose: 210 mg Piperacillin Sod/Tazobactam Sod (Zosyn 3.375gm Ivpb (Pre-Docked)) 3.375 gm IVPB Q8H-IV [facility] PRN Reason: Protocol Scopolamine HBr (Transderm-Scop -) 1 patch TD Q72H [facility] Last Admin: 02/06/17 03:10 Dose: 1 patch Topiramate 200 mg/ Topiramate (25 mg) 225 mg GT BID@06,18 [facility] Last Admin: 02/06/17 06:46 Dose: 225 mg Constitutional: Yes: Mildly tachypneic on VM O2 Eyes: Yes: WNL HENT: Yes: Drooling Neck: Yes: Decreased ROM Cardiovascular: Yes: Tachycardia, S1, S2 Respiratory: Yes: Basilar rhonchi Gastrointestinal: Yes: Soft Musculoskeletal: Yes: Other (contracted) Extremities: Yes: Cool, Other (contracted) Edema: No Peripheral Pulses WNL: Yes Neurological: Yes: poorly responsive Laboratory Results - last 24 hr 02/05/17 02/05/17 02/05/17 13:40 13:40 13:40 WBC 11.3 H D RBC 3.76 D Hgb 12.3 D Hct 37.5 D MCV 99.8 H MCH 32.7 MCHC 32.8 RDW 14.6 Plt Count 151 MPV 8.9 Neutrophils % 85.0 H D Lymphocytes % 13.0 D Monocytes % 1.0 L D Band Neutrophils 1.0 Differential Comment Manual diff done Platelet Estimate Adequate Puncture Site ABG pH ABG pCO2 at Pt Temp ABG pO2 at Pt Temp ABG HCO3 ABG O2 Sat (Measured) ABG O2 Content ABG Base Excess Sen Test VBG pH POC VBG pCO2 POC VBG pO2 Mixed VBG HCO3 O2 Delivery Device Oxygen Flow Rate PEEP Sodium 141 Potassium 3.1 L D Chloride 109 H Carbon Dioxide 21 D Anion Gap 11 BUN 13 Creatinine 0.3 L D Creat Clearance w eGFR > 60 Random Glucose 93 Lactic Acid Calcium 8.3 L Total Bilirubin 0.2 AST 62 H D ALT 124 H D Alkaline Phosphatase 267 H D Total Protein 6.9 Albumin 3.3 L Serum , Qual Negative 02/05/17 02/05/17 02/05/17 13:45 14:20 18:45 WBC RBC Hgb Hct MCV MCH MCHC RDW Plt Count MPV Neutrophils % Lymphocytes % Monocytes % Band Neutrophils Differential Comment Platelet Estimate Puncture Site Right radial ABG pH 7.33 L ABG pCO2 at Pt Temp 41.1 ABG pO2 at Pt Temp 92.9 D ABG HCO3 21.2 L ABG O2 Sat (Measured) 97.7 ABG O2 Content 15.3 ABG Base Excess -3.9 L Sen Test Positive VBG pH 7.28 L POC VBG pCO2 46.6 POC VBG pO2 80.0 H Mixed VBG HCO3 21.3 O2 Delivery Device Nasal Oxygen Flow Rate 3lpm PEEP 0.0 Sodium Potassium Chloride Carbon Dioxide Anion Gap BUN Creatinine Creat Clearance w eGFR Random Glucose Lactic Acid 1.6 Calcium Total Bilirubin AST ALT Alkaline Phosphatase Total Protein Albumin Serum , Qual 02/06/17 02/06/17 05:35 05:35 WBC 10.3 H RBC 3.19 L Hgb 10.8 D Hct 31.2 L D MCV 97.7 H MCH 34.0 H MCHC 34.7 RDW 14.9 Plt Count 136 MPV 9.1 Neutrophils % Lymphocytes % Monocytes % Band Neutrophils Differential Comment Platelet Estimate Puncture Site ABG pH ABG pCO2 at Pt Temp ABG pO2 at Pt Temp ABG HCO3 ABG O2 Sat (Measured) ABG O2 Content ABG Base Excess Sen Test VBG pH POC VBG pCO2 POC VBG pO2 Mixed VBG HCO3 O2 Delivery Device Oxygen Flow Rate PEEP Sodium 143 Potassium 3.8 D Chloride 111 H Carbon Dioxide 22 Anion Gap 10 BUN 9 D Creatinine 0.3 L Creat Clearance w eGFR > 60 Random Glucose 79 Lactic Acid Calcium 8.1 L Total Bilirubin 0.4 D AST 77 H D ALT 127 H Alkaline Phosphatase 225 H Total Protein 5.7 L Albumin 2.6 L D Serum , Qual Problem List - Problems (1) Pneumonia Code(s): J18.9 - PNEUMONIA, UNSPECIFIED ORGANISM Qualifiers: Pneumonia type: due to unspecified organism Laterality: unspecified laterality Lung location: unspecified part of lung Qualified Code(s): J18.9 - Pneumonia, unspecified organism (2) Acute respiratory failure with hypoxia Code(s): J96.01 - ACUTE RESPIRATORY FAILURE WITH HYPOXIA (3) Cerebral palsy Code(s): G80.9 - CEREBRAL PALSY, UNSPECIFIED (4) Functional quadriplegia Code(s): R53.2 - FUNCTIONAL QUADRIPLEGIA (5) Mental retardation Code(s): F79 - UNSPECIFIED INTELLECTUAL DISABILITIES (6) Seizure disorder Code(s): G40.909 - EPILEPSY, UNSP, NOT INTRACTABLE, WITHOUT STATUS EPILEPTICUS Assessment/Plan Sepsis due to suspected LLL PNA CP Functional quadriplegia Seizures Severe developmental delay Hypoxia -O2 to maintain saturation -ABX : Vanco/Zosyn -Follow cultures -IVF hydration -VTE prophylaxis Dr Ruffin Critical care time spent in reviewing chart, evaluating patient and formulating plan - 35 minutes.
[2017-02-06] MEDS ORDERED: VANCOMYCIN 1 GRAM (PRE-DOCKED) 250 ML IVPB ONE (10:00)
[2017-02-06] MEDS ORDERED: OXcarbazepine 300 MG/5 ML 250 ML BULK BOTTLE PO SCH (10:00)
[2017-02-06] MEDS ORDERED: PIPERACILLIN/TAZOB 3.375 GM/50 ML PRE-DOCKED IVPB SCH ×2 (10:00)
[2017-02-06] MEDS ORDERED: LORazepam 2 MG/ML SDV VIAL ONE (10:21)
[2017-02-06] MEDS: MUPIROCIN 2% TOPICAL OINTMENT FOR DECOLONIZATION NS SCH ×2 (11:26→22:40)
--- NOTE | 2017-02-06 13:34 | EKG ---
Test Reason : Blood Pressure : / mmHG Vent. Rate : 097 BPM Atrial Rate : 097 BPM P-R Int : 156 ms QRS Dur : 092 ms QT Int : 378 ms P-R-T Axes : 009 060 018 degrees QTc Int : 480 ms NORMAL SINUS RHYTHM NONSPECIFIC T WAVE ABNORMALITY ABNORMAL ECG WHEN COMPARED WITH ECG OF 26-SEP-2016 09:22, NONSPECIFIC T WAVE ABNORMALITY NO LONGER EVIDENT IN ANTERIOR LEADS CLINICAL CORRELATION IS RECOMMENDED Confirmed by LALY RAO, HERMANN ([id number]) on 02/06/2017 1:33:38 PM Referred By: Confirmed By:HERMANN RUFFIN MD
--- NOTE | 2017-02-06 13:46 | CONSULT ---
Consult Consult Specialty:: infectious diseases Reason for Consultation:: pneumonia - History of Present Illness History of Present Illness: 26yo F from [facility] with severe MR, spastic quadriplegia, epilepsy, and hx of recurrent PNAs presents from [place] after she was found to have increase cough and congestion. Patient known to me from previous admission and has been treated multiple times for aspiration pneumonia Patient comes back with the symptoms . was started on zosyn , patient had lot of secretions which was yellowish in color - History Source History Provided By: Medical Record Limitations to Obtaining History: Clinical Condition - Past Medical History RESIDENTIAL CONCIERGE: Yes: Seizure, Other (CP) Pulmonary: Yes: Asthma, Pneumonia ...: No - Alcohol/Substance Use Hx Alcohol Use: No - Smoking History Smoking history: Never smoked Have you smoked in the past 12 months: No Aproximately how many cigarettes per day: 0 - Social History Usual Living Arrangement: Residential History of Recent Travel: No Home Medications - Allergies Allergies/Adverse Reactions: Allergies Allergy/AdvReac Type Severity Reaction Status Date / Time No Known Allergies Allergy Verified 02/05/17 12:40 - Home Medications Home Medications: Ambulatory Orders Albuterol 0.083% Nebulizer Sobeida [Ventolin 0.083%] 1 neb NEB PRN PRN 02/05/17 Baclofen 5 mg GT TID 02/05/17 Cholecalciferol (Vitamin D3) [Vitamin D3] 2,000 unit GT DAILY 02/05/17 Diazepam [Diastat Acudial] 10 mg RC PRN PRN 02/05/17 Ipratropium/Albuterol Sulfate [Iprat-Albut 0.5-3(2.5) mg/3 ml] 3 ml IH Q4HWA PRN 02/05/17 Lactulose 15 gm GT TID 02/05/17 Levetiracetam 1,500 mg GT BID 02/05/17 Multivit-Min/FA/Lycopen/Lutein [Vitrum 50+ Senior Tablet] 1 each PO DAILY Nystatin Ointment [Mycostatin Ointment -] 1 applic TP PRN PRN 02/05/17 OXcarbazepine [Trileptal] 180 mg GT DAILY 02/05/17 OXcarbazepine [Trileptal] 210 mg GT HS 02/05/17 Topiramate 200 mg GT BID 02/05/17 Topiramate [Trokendi Xr] 25 mg GT BID 02/05/17 Review of Systems Unable to obtain ROS, reason: unable to obtain Physical Exam Vital Signs: Vital Signs Temperature 97.2 F L 02/06/17 12:00 Pulse Rate 100 H 02/06/17 12:00 Respiratory Rate 24 02/06/17 12:00 Blood Pressure 86/43 02/06/17 12:00 O2 Sat by Pulse Oximetry (%) 95 02/06/17 11:49 Constitutional: Yes: Mild Distress, Other Eyes: Yes: Conjunctiva Clear Neck: Yes: Supple Cardiovascular: Yes: Regular Rate and Rhythm, Tachycardia Respiratory: Yes: On Venti-Mask, Rhonchi, Other (secretions) Gastrointestinal: Yes: Normal Bowel Sounds, Soft, Other (peg in place) Musculoskeletal: Yes: Other Extremities: Yes: Other Neurological: Yes: Lethargy, Other Labs: CBC, BMP 02/06/17 05:35 02/06/17 05:35 Imaging - Results Chest X-ray: Report Reviewed, Image Reviewed Assessment/Plan Problem List - Problems (1) Pneumonia Code(s): J18.9 - PNEUMONIA, UNSPECIFIED ORGANISM Qualifiers: Pneumonia type: due to unspecified organism Laterality: unspecified laterality Lung location: unspecified part of lung Qualified Code(s): J18.9 - Pneumonia, unspecified organism (2) Acute respiratory failure with hypoxia Code(s): J96.01 - ACUTE RESPIRATORY FAILURE WITH HYPOXIA (3) Cerebral palsy Code(s): G80.9 - CEREBRAL PALSY, UNSPECIFIED (4) Functional quadriplegia Code(s): R53.2 - FUNCTIONAL QUADRIPLEGIA (5) Mental retardation Code(s): F79 - UNSPECIFIED INTELLECTUAL DISABILITIES (6) Seizure disorder Code(s): G40.909 - EPILEPSY, UNSP, NOT INTRACTABLE, WITHOUT STATUS EPILEPTICUS plan conitnue zosyn suctioning aspiration precautions resp support monitor for detoriation rest as per icu cc time 45 min
[2017-02-06] MEDS ORDERED: PT OWN MED DRAWER 7, Y5N ONE ×2 (15:09→21:17)
[2017-02-06] MEDS: PIPERACILLIN/TAZOB 3.375 GM 50 ML IVPB SCH ×2 (15:11→17:31)
[2017-02-06] MEDS: SODIUM CHLORIDE 1,000 ML IV SCH (17:34)
[2017-02-06] MEDS: CHLORHEXIDINE GLUCONATE 4% CLEANSER FOR DECOLONIZATION TP SCH (22:40)
[2017-02-07] MEDS: PIPERACILLIN/TAZOB 3.375 GM 50 ML IVPB SCH ×3 (02:00→17:20)
[2017-02-07] MEDS: HEPARIN NA (PORCINE) 5,000 UNITS/ML 1ML VIAL SQ SCH ×3 (06:07→22:13)
[2017-02-07] MEDS: OXcarbazepine 300 MG/5 ML 250 ML BULK BOTTLE GT SCH ×2 (06:09→18:24)
[2017-02-07] MEDS: ALBUTEROL SO4 2.5/IPRATROPIUM 0.5 INH SOL 3 ML VIAL.NEB. NEB SCH ×3 (06:38→17:57)
[2017-02-07] MEDS: TOPIRAMATE GT SCH ×2 (06:42→17:20)
[2017-02-07] MEDS: BACLOFEN 10 MG TABLET (FP) GT SCH ×3 (06:42→22:12)
[2017-02-07] MEDS: levETIRAcetam 500 MG/5 ML ORAL SOLUTION (UNIT-DOSE CUPS) GT SCH ×2 (06:42→18:23)
[2017-02-07 08:25] LABS: BASOPHIL 0.1 % (0-2.0); EOSINOPHIL 0.1 % (0-4.5); MCH 33.1 pg (25.7-33.7); MCHC 33.4 g/dl (32.0-36.0); MEAN CELL VOLUME 99.1 fl (80-96); MEAN PLT VOLUME 9.2 fl (7.5-11.1); NEUTROPHILS 84.5 % (42.8-82.8); PLATELET COUNT 97 K/MM3 (134-434); RDW 14.7 % (11.6-15.6); WHITE BLOOD COUNT 8.3 K/mm3 (4.0-10.0)
[2017-02-07 09:04] LABS: ALBUMIN 2.4 g/dl (3.4-5.0); ANION GAP 10 (8-16); CALCIUM 8.5 mg/dL (8.5-10.1); CO2 20 mmol/L (21-32); CREATININE 1.3 mg/dL (0.55-1.02); GLUCOSE,RANDOM 114 mg/dL (74-106); MAGNESIUM 2.2 mg/dL (1.8-2.4); PHOSPHOROUS 3.3 mg/dL (2.5-4.9); SGOT/AST 78 U/L (15-37); SGPT/ALT 118 U/L (12-78); TOT PROT 5.6 g/dl (6.4-8.2)
[2017-02-07 09:05] LABS: ALK PHOS 240 U/L (45-117)
[2017-02-07] MEDS ORDERED: VANCOMYCIN 1 GRAM (PRE-DOCKED) 250 ML IVPB SCH ×2 (10:00)
[2017-02-07] MEDS ORDERED: PT OWN MED DRAWER 7, Y5N ONE (10:07)
[2017-02-07] MEDS: MUPIROCIN 2% TOPICAL OINTMENT FOR DECOLONIZATION NS SCH ×2 (10:36→22:13)
[2017-02-07 12:02] LABS: ARTERIAL BLD GAS O2 SATURATION 97.2 % (90-98.9); ARTERIAL BLOOD GAS BASE EXCESS -7.6 meq/l (-2-2); ARTERIAL BLOOD GAS HCO3 17.2 meq/L (22-26); ARTERIAL BLOOD GAS pH 7.32 (7.35-7.45)
[2017-02-07 12:05] LABS: ALLENS TEST POSITIVE; ART PUNCT SITE LEFT RADIAL; LPM/O2% 2L; PT. ON O2? YES; TYPE OF O2 NASAL
--- NOTE | 2017-02-07 12:54 | PN ---
Teaching Attending Note Name of Resident: Vidal Barboza ATTENDING PHYSICIAN STATEMENT I saw and evaluated the patient. I reviewed the resident's note and discussed the case with the resident. I agree with the resident's findings and plan as documented. SUBJECTIVE: Patient seen and examined in the ICU. Lethargic and non-verbal on NC O2. No pressors. Noted significant increase in BUN/Creatinine CXR : Increasing bilateral airspace disease / Elevated Left diaphragm Intake & Output 02/04/17 02/05/17 02/06/17 02/07/17 23:59 23:59 23:59 23:59 Intake Total 100 1350 Balance 100 1350 Weight 135 lb Last Vital Signs Temp Pulse Resp BP Pulse Ox 96.5 F L 82 37 H 127/63 93 L 02/07/17 10:00 02/07/17 12:00 02/07/17 12:00 02/07/17 12:00 02/07/17 10:13 Active Medications Albuterol/Ipratropium (Duoneb -) 1 amp NEB QIDR [facility] Last Admin: 02/07/17 11:02 Dose: 1 amp Baclofen (Lioresal -) 5 mg GT TID [facility] Last Admin: 02/07/17 06:42 Dose: 5 mg Chlorhexidine Gluconate (Hibiclens For Decolonization -) 1 applic TP HS [facility] Last Admin: 02/06/17 22:40 Dose: 1 applic Diazepam (Diastat Rectal Gel -) 10 mg RC PRN PRN PRN Reason: ANXIETY Heparin Sodium (Porcine) (Heparin -) 5,000 unit SQ TID [facility] Last Admin: 02/07/17 06:07 Dose: 5,000 unit Sodium Chloride (Normal Saline -) 1,000 mls @ 100 mls/hr IV ASDIR [facility] Last Admin: 02/06/17 17:34 Dose: 100 mls/hr Piperacillin Sod/Tazobactam Sod (Zosyn 3.375gm Ivpb (Pre-Docked)) 50 mls @ 100 mls/hr IVPB Q8H-IV [facility] PRN Reason: Protocol Last Admin: 02/07/17 10:36 Dose: 100 mls/hr Lactulose (Cephulac (Oral Use)) 10 gm GT TID PRN PRN Reason: CONSTIPATION Levetiracetam (Keppra Oral Solution -) 1,500 mg GT BID@0630,1830 [facility] Last Admin: 02/07/17 06:42 Dose: 1,500 mg Mupirocin (Bactroban Ointment (For Decolonization) -) 1 applic NS BID [facility] Stop: 02/10/17 21:59 Last Admin: 02/07/17 10:36 Dose: 1 applic Oxcarbazepine (Trileptal) 180 mg GT DAILY@0630 [facility] Last Admin: 02/07/17 06:09 Dose: 180 mg Oxcarbazepine (Trileptal) 210 mg GT DAILY@1900 [facility] Last Admin: 02/06/17 22:42 Dose: 210 mg Scopolamine HBr (Transderm-Scop -) 1 patch TD Q72H [facility] Last Admin: 02/06/17 03:10 Dose: 1 patch Topiramate 200 mg/ Topiramate (25 mg) 225 mg GT BID@,18 [facility] Last Admin: 02/07/17 06:42 Dose: 225 mg Constitutional: Yes: Mildly tachypneic on NC O2 Eyes: Yes: WNL HENT: Yes: Drooling Neck: Yes: Decreased ROM Cardiovascular: Yes: Tachycardia, S1, S2 Respiratory: Yes: Basilar rhonchi Gastrointestinal: Yes: Soft Musculoskeletal: Yes: Other (contracted) Extremities: Yes: Cool, Other (contracted) Edema: No Peripheral Pulses WNL: Yes Neurological: Yes: poorly responsive Laboratory Results - last 24 hr 02/07/17 02/07/17 02/07/17 07:40 07:40 11:55 WBC 8.3 RBC 2.91 L Hgb 9.6 L D Hct 28.8 L MCV 99.1 H MCH 33.1 MCHC 33.4 RDW 14.7 Plt Count 97 L D MPV 9.2 Neutrophils % 84.5 H Lymphocytes % 10.4 Monocytes % 4.9 D Eosinophils % 0.1 D Basophils % 0.1 Puncture Site Left radial ABG pH 7.32 L ABG pCO2 at Pt Temp 34.1 L ABG pO2 at Pt Temp 81.0 ABG HCO3 17.2 L ABG O2 Sat (Measured) 97.2 ABG O2 Content 13.3 L ABG Base Excess -7.6 L Sen Test Positive O2 Delivery Device Nasal Oxygen Flow Rate 2l PEEP 0.0 Sodium 143 Potassium 3.8 Chloride 113 H Carbon Dioxide 20 L Anion Gap 10 BUN 22 H D Creatinine 1.3 H D Creat Clearance w eGFR 49.13 Random Glucose 114 H D Calcium 8.5 Phosphorus 3.3 Magnesium 2.2 D Total Bilirubin 1.0 D AST 78 H ALT 118 H Alkaline Phosphatase 240 H Total Protein 5.6 L Albumin 2.4 L Problem List - Problems (1) Pneumonia Code(s): J18.9 - PNEUMONIA, UNSPECIFIED ORGANISM Qualifiers: Pneumonia type: due to unspecified organism Laterality: unspecified laterality Lung location: unspecified part of lung Qualified Code(s): J18.9 - Pneumonia, unspecified organism (2) Acute respiratory failure with hypoxia Code(s): J96.01 - ACUTE RESPIRATORY FAILURE WITH HYPOXIA (3) Cerebral palsy Code(s): G80.9 - CEREBRAL PALSY, UNSPECIFIED (4) Functional quadriplegia Code(s): R53.2 - FUNCTIONAL QUADRIPLEGIA (5) Mental retardation Code(s): F79 - UNSPECIFIED INTELLECTUAL DISABILITIES (6) Seizure disorder Code(s): G40.909 - EPILEPSY, UNSP, NOT INTRACTABLE, WITHOUT STATUS EPILEPTICUS Assessment/Plan Sepsis due to PNA CP Functional quadriplegia Seizures Severe developmental delay Hypoxemia Pulmonary Vascular Congestion (?) ARDS physiology -O2 to maintain saturation -Aspiration precautions -ABX : Vanco/Zosyn -Follow cultures -Reduce IVF -VTE prophylaxis Dr Ruffin Critical care time spent in reviewing chart, evaluating patient and formulating plan - 35 minutes.
[2017-02-07] MEDS ORDERED: SODIUM CHLORIDE 1,000 ML IV SCH (12:57)
[2017-02-07] MEDS ORDERED: VANCOMYCIN 1 GRAM (PRE-DOCKED) 250 ML IVPB ONE (13:30)
--- NOTE | 2017-02-07 14:08 | PN ---
Progress Note, Physician History of Present Illness: patient seen and examined at bedside non verbal - Current Medication List Current Medications: Active Medications Albuterol/Ipratropium (Duoneb -) 1 amp NEB QIDR [facility] Last Admin: 02/07/17 11:02 Dose: 1 amp Baclofen (Lioresal -) 5 mg GT TID [facility] Last Admin: 02/07/17 06:42 Dose: 5 mg Chlorhexidine Gluconate (Hibiclens For Decolonization -) 1 applic TP HS [facility] Last Admin: 02/06/17 22:40 Dose: 1 applic Diazepam (Diastat Rectal Gel -) 10 mg RC PRN PRN PRN Reason: ANXIETY Heparin Sodium (Porcine) (Heparin -) 5,000 unit SQ TID [facility] Last Admin: 02/07/17 06:07 Dose: 5,000 unit Piperacillin Sod/Tazobactam Sod (Zosyn 3.375gm Ivpb (Pre-Docked)) 50 mls @ 100 mls/hr IVPB Q8H-IV [facility] PRN Reason: Protocol Last Admin: 02/07/17 10:36 Dose: 100 mls/hr Sodium Chloride (Normal Saline -) 1,000 mls @ 50 mls/hr IV ASDIR [facility] Vancomycin HCl (Vancomycin (Pre-Docked)) 250 mls @ 166.667 mls/hr IVPB ONCE ONE Stop: 02/07/17 14:59 Lactulose (Cephulac (Oral Use)) 10 gm GT TID PRN PRN Reason: CONSTIPATION Levetiracetam (Keppra Oral Solution -) 1,500 mg GT BID@0630,1830 [facility] Last Admin: 02/07/17 06:42 Dose: 1,500 mg Mupirocin (Bactroban Ointment (For Decolonization) -) 1 applic NS BID [facility] Stop: 02/10/17 21:59 Last Admin: 02/07/17 10:36 Dose: 1 applic Oxcarbazepine (Trileptal) 180 mg GT DAILY@0630 [facility] Last Admin: 02/07/17 06:09 Dose: 180 mg Oxcarbazepine (Trileptal) 210 mg GT DAILY@1900 [facility] Last Admin: 02/06/17 22:42 Dose: 210 mg Scopolamine HBr (Transderm-Scop -) 1 patch TD Q72H [facility] Last Admin: 02/06/17 03:10 Dose: 1 patch Topiramate 200 mg/ Topiramate (25 mg) 225 mg GT BID@18 [facility] Last Admin: 02/07/17 06:42 Dose: 225 mg - Objective Vital Signs: Vital Signs Temperature 96.5 F L 02/07/17 10:00 Pulse Rate 82 02/07/17 12:00 Respiratory Rate 37 H 02/07/17 12:00 Blood Pressure 127/63 02/07/17 12:00 O2 Sat by Pulse Oximetry (%) 93 L 02/07/17 10:13 Constitutional: Yes: No Distress HENT: Yes: Atraumatic, Normocephalic Neck: Yes: Supple, Trachea Midline Cardiovascular: Yes: Regular Rate and Rhythm Respiratory: Yes: Other (coase breath sounds. large amount of secretions) Gastrointestinal: Yes: Soft, Other (PEG in place) Extremities: Yes: Other (lower and upper extremities contracted) Edema: No Labs: CBC, BMP 02/07/17 07:40 02/07/17 07:40 - ....Imaging Chest X-ray: Report Reviewed, Image Reviewed Assessment/Plan 26F with multiple medical problems presents to the hospital with sepsis secondary to pneumonia. pneumonia/hypoxemia. HCAP vs aspiration. possible ARDS etiology though unlikely. patient has a history of multiple aspirations in the past. ID consult appreciated continue zosyn give a dose of vanco to cover MRSA CXR in AM scopolamine patch to dry up secretions. restrictive lung disease like picture given scoliosis Duonebs O2 PRN Pulmonary vascular congestion: decrease IVF to 50ml/hr repeat CXR in AM will consider lasix if needed Seizure disorder: continue trileptal continue topamax continue keppra diazepam rectal PRN functional quadriplegia: continue baclofen for spasticity severe developmental delay: will go back to [facility] after discharge FEN: NS @ 50ml/hr no electrolyte issues Tube feeds @ 42ml/hr PPx: HSQ/SCDs no GI PPx indicated CCTime 35 min
[2017-02-07] MEDS ORDERED: POTASSIUM CHLORIDE ORAL LIQUID 20 MEQ/15 ML PEG ONE (14:29)
--- NOTE | 2017-02-07 15:00 | PN ---
Progress Note, Physician History of Present Illness: patient slightly more lethargic according to the staff though breathing is better patient has remained afebrile wbc has normalized - Current Medication List Current Medications: Active Medications Albuterol/Ipratropium (Duoneb -) 1 amp NEB QIDR [facility] Last Admin: 02/07/17 11:02 Dose: 1 amp Baclofen (Lioresal -) 5 mg GT TID [facility] Last Admin: 02/07/17 06:42 Dose: 5 mg Chlorhexidine Gluconate (Hibiclens For Decolonization -) 1 applic TP HS [facility] Last Admin: 02/06/17 22:40 Dose: 1 applic Diazepam (Diastat Rectal Gel -) 10 mg RC PRN PRN PRN Reason: ANXIETY Heparin Sodium (Porcine) (Heparin -) 5,000 unit SQ TID [facility] Last Admin: 02/07/17 06:07 Dose: 5,000 unit Piperacillin Sod/Tazobactam Sod (Zosyn 3.375gm Ivpb (Pre-Docked)) 50 mls @ 100 mls/hr IVPB Q8H-IV [facility] PRN Reason: Protocol Last Admin: 02/07/17 10:36 Dose: 100 mls/hr Sodium Chloride (Normal Saline -) 1,000 mls @ 50 mls/hr IV ASDIR [facility] Lactulose (Cephulac (Oral Use)) 10 gm GT TID PRN PRN Reason: CONSTIPATION Levetiracetam (Keppra Oral Solution -) 1,500 mg GT BID@0630,1830 [facility] Last Admin: 02/07/17 06:42 Dose: 1,500 mg Mupirocin (Bactroban Ointment (For Decolonization) -) 1 applic NS BID [facility] Stop: 02/10/17 21:59 Last Admin: 02/07/17 10:36 Dose: 1 applic Oxcarbazepine (Trileptal) 180 mg GT DAILY@0630 [facility] Last Admin: 02/07/17 06:09 Dose: 180 mg Oxcarbazepine (Trileptal) 210 mg GT DAILY@1900 [facility] Last Admin: 02/06/17 22:42 Dose: 210 mg Potassium Chloride (Potassium Chloride Oral Liquid) 40 meq PEG ONCE ONE Stop: 02/07/17 14:30 Scopolamine HBr (Transderm-Scop -) 1 patch TD Q72H [facility] Last Admin: 02/06/17 03:10 Dose: 1 patch Topiramate 200 mg/ Topiramate (25 mg) 225 mg GT BID@ [facility] Last Admin: 02/07/17 06:42 Dose: 225 mg - Objective Vital Signs: Vital Signs Temperature 96.5 F L 02/07/17 10:00 Pulse Rate 82 02/07/17 12:00 Respiratory Rate 37 H 02/07/17 12:00 Blood Pressure 127/63 02/07/17 12:00 O2 Sat by Pulse Oximetry (%) 93 L 02/07/17 10:13 Constitutional: Yes: Calm Respiratory: Yes: On Nasal O2, Rhonchi, Other Gastrointestinal: Yes: Normal Bowel Sounds, Soft, Other (peg in place) Musculoskeletal: Yes: WNL Extremities: Yes: WNL Neurological: Yes: Lethargy, Other Labs: CBC, BMP 02/07/17 07:40 02/07/17 07:40 Assessment/Plan Problem List - Problems (1) Pneumonia Code(s): J18.9 - PNEUMONIA, UNSPECIFIED ORGANISM Qualifiers: Pneumonia type: due to unspecified organism Laterality: unspecified laterality Lung location: unspecified part of lung Qualified Code(s): J18.9 - Pneumonia, unspecified organism (2) Acute respiratory failure with hypoxia Code(s): J96.01 - ACUTE RESPIRATORY FAILURE WITH HYPOXIA (3) Cerebral palsy Code(s): G80.9 - CEREBRAL PALSY, UNSPECIFIED (4) Functional quadriplegia Code(s): R53.2 - FUNCTIONAL QUADRIPLEGIA (5) Mental retardation Code(s): F79 - UNSPECIFIED INTELLECTUAL DISABILITIES (6) Seizure disorder Code(s): G40.909 - EPILEPSY, UNSP, NOT INTRACTABLE, WITHOUT STATUS EPILEPTICUS plan conitnue zosyn suctioning aspiration precautions resp support monitor for detoriation rest as per icu one dose of vanco given await for all cx reports cc time 45 min
--- NOTE | 2017-02-07 18:07 | PN ---
Physical Exam: SUBJECTIVE: Patient seen and examined this AM. Nurse stated that pt was switched to scopolamine patch to dry up secretions. No seizures. Pt had slight vaginal bleeding. Monitor reviewed, episode of low BP, RR in the 40s. No abnormal rhythm strips. OBJECTIVE: Vital Signs Period Temp Pulse Resp BP Sys/Herman Pulse Ox Last 24 Hr 96.4 F-97.1 F 74-99 26-40 82-136/48-73 93-98 GEN: Pt sleeping, pt visible had high RR, coughing at times HEENT: PERRLA, no cervical LAD CV: S1, S2, RRR, no murmur appreciated LUNG: Rales/rhonchi in lung bases ABD: Soft, ND, pt has pEG tube, hypoactive BS MSK: 2+ pulses, well perfused, no edema NEURO: Exam limited. PERRLA, no facial droop. Laboratory Results - last 24 hr 02/07/17 02/07/17 02/07/17 07:40 07:40 11:55 WBC 8.3 RBC 2.91 L Hgb 9.6 L D Hct 28.8 L MCV 99.1 H MCH 33.1 MCHC 33.4 RDW 14.7 Plt Count 97 L D MPV 9.2 Neutrophils % 84.5 H Lymphocytes % 10.4 Monocytes % 4.9 D Eosinophils % 0.1 D Basophils % 0.1 Puncture Site Left radial ABG pH 7.32 L ABG pCO2 at Pt Temp 34.1 L ABG pO2 at Pt Temp 81.0 ABG HCO3 17.2 L ABG O2 Sat (Measured) 97.2 ABG O2 Content 13.3 L ABG Base Excess -7.6 L Sen Test Positive O2 Delivery Device Nasal Oxygen Flow Rate 2l PEEP 0.0 Sodium 143 Potassium 3.8 Chloride 113 H Carbon Dioxide 20 L Anion Gap 10 BUN 22 H D Creatinine 1.3 H D Creat Clearance w eGFR 49.13 Random Glucose 114 H D Calcium 8.5 Phosphorus 3.3 Magnesium 2.2 D Total Bilirubin 1.0 D AST 78 H ALT 118 H Alkaline Phosphatase 240 H Total Protein 5.6 L Albumin 2.4 L Active Medications Generic Name Dose Route Start Last Admin Trade Name Freq PRN Reason Stop Dose Admin Albuterol/Ipratropium 1 amp 02/05/17 18:00 02/07/17 17:57 Duoneb - NEB 1 amp QIDR HARIS Administration Baclofen 5 mg 02/05/17 22:00 02/07/17 15:22 Lioresal - GT 5 mg TID HARIS Administration Chlorhexidine Gluconate 1 applic 02/05/17 22:00 02/06/17 22:40 Hibiclens For Decolonization - TP 1 applic HS HARIS Administration Diazepam 10 mg 02/05/17 16:16 Diastat Rectal Gel - RC PRN PRN ANXIETY Heparin Sodium (Porcine) 5,000 unit 02/05/17 22:00 02/07/17 15:19 Heparin - SQ 5,000 unit TID HARIS Administration Piperacillin Sod/Tazobactam Sod 50 mls @ 100 mls/hr 02/06/17 14:30 02/07/17 17: 20 Zosyn 3.375gm Ivpb (Pre-Docked) IVPB 100 mls/hr Q8H-IV HARIS Administration Protocol Sodium Chloride 1,000 mls @ 50 mls/hr 02/07/17 12:57 02/07/17 13:30 Normal Saline - IV 50 mls/hr ASDIR HARIS Administration Lactulose 10 gm 02/05/17 18:22 Cephulac (Oral Use) GT TID PRN CONSTIPATION Levetiracetam 1,500 mg 02/05/17 18:30 02/07/17 06:42 Keppra Oral Solution - GT 1,500 mg BID@0630,1830 HARIS Administration Mupirocin 1 applic 02/05/17 22:00 02/07/17 10:36 Bactroban Ointment (For Decolonization) - NS 02/10/17 21:59 1 applic BID HARIS Administration Oxcarbazepine 180 mg 02/06/17 06:30 02/07/17 06:09 Trileptal GT 180 mg DAILY@0630 HARIS Administration Oxcarbazepine 210 mg 02/05/17 19:00 02/06/17 22:42 Trileptal GT 210 mg DAILY@1900 HARIS Administration Scopolamine HBr 1 patch 02/06/17 01:00 02/06/17 03:10 Transderm-Scop - TD 1 patch Q72H HARIS Administration Topiramate 200 mg/ Topiramate 225 mg 02/05/17 18:00 02/07/17 17:20 25 mg GT 225 mg BID@06,18 [facility] Administration ASSESSMENT/PLAN: Pt is a 26yo F from [place] with severe MR, CP, spastic quadriplegia, seizure dz, with recurrent PNAs who presented with sepsis. # Sepsis likely 2/2 PNA - Aspiration vs HCAP - Start Zosyn 3.375mg IV Q6 for pseudomonas + anaerobes - Start Vanco 1g QD IV for MRSA since pt comes from [place] - F/u Blood cx - prelim no growth - F/u sputum cx - tailor antibiotics - Duonebs - Scopolamine patch # Tachypnea - Pt has RR in the 40s - Will monitor, if RR still high consider intubation - F/u ABG tomorrow AM # NAG Metabolic Acidosis - Recent ABG shows met acidosis with resp compensation - F/u on lactate # ALEKSANDR - Likely prerenal due to hypotension last night - IVNS 50cc/hr - Monitor BPs # Low PLT - 136 --> 97 - Pt had one episode of slight vaginal bleeding - Near her normal menstrual period time - Monitor for HIT # Hypoactive BS - Abdomen not distended on exam - KUB shows no obstruction # Transaminitis - Chronic - Hepatocellular pictures, less likely obstructive - Can f/u outpatient with imaging + autoimmune labs # Hx of Seizures - Continue in hospital (Keppra, Oxcarb, Topamax, Rectal DIazepam PRN) - Ativan PRN for new seizure - If pt presents with new seizures, consider Neuro consult # Hx of Spastic CP - Continue Baclofen # Hx of Constipation - Continue Senna and lactulose # FEN - Fluids: IVNS 50cc/hr - Electrolytes: Monitor - Nutrition: Changed bolus feeds --> continuous # Prophylaxis - DVT: Pt is high risk, Heparin SQ TID - GI: Not indicated # Dispo - Await sputum cx for correct antibiotic tx - Monitor RR, consider intubation Dr. Ekta Wan, PGY1 - Internal Medicine Visit type - Emergency Visit Emergency Visit: No - New Patient This patient is new to me today: No - Critical Care Critical Care patient: No - Discharge Referral Referred to [facility] Med P.C.: No
--- NOTE | 2017-02-07 18:16 | PN ---
Teaching Attending Note Name of Resident: Ekta Wan ATTENDING PHYSICIAN STATEMENT I saw and evaluated the patient. I reviewed the resident's note and discussed the case with the resident. I agree with the resident's findings and plan as documented. SUBJECTIVE: no events overnight OBJECTIVE: comfortable , tachypnic . No facial asymmetry , has no LAP in neck. CV: RRR, tachy. Lungs:rales at both bases Abd: Nl BS today . ND , NT, Peg in . Ext: petechiae on LE , no edema ASSESSMENT AND PLAN: 26 y/o lady with h/o severe mental retardation ,cerebral palsy quadriplegia, recurrent PNAs , and seizure disorder who was sent from [place] with increased secretions and tachypnea. She was found to be septic with hypothermia 1- Sepsis: likely due to aspiration PNA . COnt to be tachypnia ABG with Met acidosis with resp compensation . - Check lactic - Cont zosyn. 1 dose of vanco today - Cont low dose IVF - Repeat cxray in am - Follow blood cx - If continue to be tachypnic, might need intubation. - scopolamine patch to control secretions - follow sputum Cx 2- H/o Seizure:no recurrence of seizure - cont current meds - If seizure recur , will consult neuro - ativan PRN 3- Nutrition , cont continuous Tube feeds CCT 35 min
[2017-02-07] MEDS: CHLORHEXIDINE GLUCONATE 4% CLEANSER FOR DECOLONIZATION TP SCH (22:14)
[2017-02-07] MEDS ORDERED: SODIUM CHLORIDE 500 ML IV ONE (23:22)
[2017-02-08] MEDS: PIPERACILLIN/TAZOB 3.375 GM 50 ML IVPB SCH ×3 (01:23→17:35)
[2017-02-08] MEDS: TOPIRAMATE GT SCH ×2 (05:11→17:35)
[2017-02-08] MEDS: BACLOFEN 10 MG TABLET (FP) GT SCH ×3 (05:11→21:31)
[2017-02-08] MEDS: HEPARIN NA (PORCINE) 5,000 UNITS/ML 1ML VIAL SQ SCH ×3 (05:13→21:31)
[2017-02-08] MEDS: ALBUTEROL SO4 2.5/IPRATROPIUM 0.5 INH SOL 3 ML VIAL.NEB. NEB SCH ×5 (06:29→23:25)
[2017-02-08] MEDS ORDERED: PT OWN MED DRAWER 7, Y5N ONE ×2 (06:46→08:27)
[2017-02-08] MEDS: levETIRAcetam 500 MG/5 ML ORAL SOLUTION (UNIT-DOSE CUPS) GT SCH ×2 (07:03→17:33)
[2017-02-08] MEDS: OXcarbazepine 300 MG/5 ML 250 ML BULK BOTTLE GT SCH ×2 (07:04→18:05)
[2017-02-08 07:53] LABS: ARTERIAL BLD GAS O2 SATURATION 99.3 % (90-98.9); ARTERIAL BLOOD GAS BASE EXCESS -8.3 meq/l (-2-2); ARTERIAL BLOOD GAS HCO3 16.6 meq/L (22-26); ARTERIAL BLOOD GAS pH 7.32 (7.35-7.45)
[2017-02-08 08:00] LABS: ALLENS TEST POSITIVE; ART PUNCT SITE LEFT RADIAL; LPM/O2% 3L; PT. ON O2? YES; TYPE OF O2 NASAL
[2017-02-08 08:59] LABS: MCH 32.9 pg (25.7-33.7); MCHC 33.1 g/dl (32.0-36.0); MEAN CELL VOLUME 99.6 fl (80-96); MEAN PLT VOLUME 9.3 fl (7.5-11.1); PLATELET COUNT 84 K/MM3 (134-434); RDW 15.4 % (11.6-15.6); WHITE BLOOD COUNT 6.2 K/mm3 (4.0-10.0)
[2017-02-08] MEDS: MUPIROCIN 2% TOPICAL OINTMENT FOR DECOLONIZATION NS SCH ×2 (09:02→21:32)
[2017-02-08 09:34] LABS: ALBUMIN 2.3 g/dl (3.4-5.0); ANION GAP 12 (8-16); BILIRUBIN,TOTAL 0.7 mg/dL (0.2-1.0); CALCIUM 8.5 mg/dL (8.5-10.1); CO2 18 mmol/L (21-32); CREATININE 2.5 mg/dL (0.55-1.02); GLUCOSE,RANDOM 100 mg/dL (74-106); MAGNESIUM 2.4 mg/dL (1.8-2.4); PHOSPHOROUS 3.8 mg/dL (2.5-4.9); SGOT/AST 61 U/L (15-37); SGPT/ALT 109 U/L (12-78); TOT PROT 5.6 g/dl (6.4-8.2)
[2017-02-08 09:35] LABS: ALK PHOS 251 U/L (45-117)
[2017-02-08] MEDS: LACTULOSE 20 GM/30 ML UDC (FOR ORAL USE ONLY) GT PRN ×2 (09:38→14:07)
[2017-02-08] MEDS ORDERED: FUROSEMIDE 40 MG/4 ML INJECTABLE VIAL IVPUSH ONE (11:15)
--- NOTE | 2017-02-08 11:40 | PN ---
Teaching Attending Note Name of Resident: Vidal Barboza ATTENDING PHYSICIAN STATEMENT I saw and evaluated the patient. I reviewed the resident's note and discussed the case with the resident. I agree with the resident's findings and plan as documented. SUBJECTIVE: Patient seen and examined in the ICU. Lethargic and non-verbal on NC O2. No pressors. Noted significant increase in BUN/Creatinine CXR : Increasing bilateral airspace disease / effusions / Elevated Left diaphragm Intake & Output 02/05/17 02/06/17 02/07/17 02/08/17 23:59 23:59 23:59 23:59 Intake Total 100 1350 1340 662 Balance 100 1350 1340 662 Weight 135 lb 113 lb 15.664 oz 118 lb 9.739 oz Last Vital Signs Temp Pulse Resp BP Pulse Ox 97.6 F 73 22 115/71 100 02/08/17 10:00 02/08/17 10:00 02/08/17 10:00 02/08/17 10:00 02/08/17 08:14 Active Medications Albuterol/Ipratropium (Duoneb -) 1 amp NEB QIDR [facility] Last Admin: 02/08/17 06:29 Dose: 1 amp Baclofen (Lioresal -) 5 mg GT TID HARIS Last Admin: 02/08/17 05:11 Dose: 5 mg Chlorhexidine Gluconate (Hibiclens For Decolonization -) 1 applic TP HS [facility] Last Admin: 02/07/17 22:14 Dose: 1 applic Diazepam (Diastat Rectal Gel -) 10 mg RC PRN PRN PRN Reason: ANXIETY Heparin Sodium (Porcine) (Heparin -) 5,000 unit SQ TID HARIS Last Admin: 02/08/17 05:13 Dose: 5,000 unit Piperacillin Sod/Tazobactam Sod (Zosyn 3.375gm Ivpb (Pre-Docked)) 50 mls @ 100 mls/hr IVPB Q8H-IV HARIS PRN Reason: Protocol Last Admin: 02/08/17 09:01 Dose: 100 mls/hr Sodium Chloride (Normal Saline -) 500 mls @ 21 mls/hr IV ASDIR ONE Stop: 02/08/17 23:10 Last Admin: 02/07/17 22:00 Dose: 21 mls/hr Lactulose (Cephulac (Oral Use)) 10 gm GT TID PRN PRN Reason: CONSTIPATION Last Admin: 02/08/17 09:38 Dose: 10 gm Levetiracetam (Keppra Oral Solution -) 1,500 mg GT BID@0630,1830 [facility] Last Admin: 02/08/17 07:03 Dose: 1,500 mg Mupirocin (Bactroban Ointment (For Decolonization) -) 1 applic NS BID [facility] Stop: 02/10/17 21:59 Last Admin: 02/08/17 09:02 Dose: 1 applic Oxcarbazepine (Trileptal) 180 mg GT DAILY@0630 [facility] Last Admin: 02/08/17 07:04 Dose: 180 mg Oxcarbazepine (Trileptal) 210 mg GT DAILY@1900 [facility] Last Admin: 02/07/17 18:24 Dose: 210 mg Scopolamine HBr (Transderm-Scop -) 1 patch TD Q72H [facility] Last Admin: 02/06/17 03:10 Dose: 1 patch Topiramate 200 mg/ Topiramate (25 mg) 225 mg GT BID@06,18 [facility] Last Admin: 02/08/17 05:11 Dose: 225 mg Constitutional: Yes: Mildly tachypneic on NC O2 Eyes: Yes: WNL HENT: Yes: Drooling Neck: Yes: Decreased ROM Cardiovascular: Yes: Tachycardia, S1, S2 Respiratory: Yes: Basilar rhonchi Gastrointestinal: Yes: Soft Musculoskeletal: Yes: Other (contracted) Extremities: Yes: Cool, Other (contracted) Edema: No Peripheral Pulses WNL: Yes Neurological: Yes: poorly responsive Laboratory Results - last 24 hr 02/07/17 02/07/17 02/08/17 11:55 17:21 07:20 WBC RBC Hgb Hct MCV MCH MCHC RDW Plt Count MPV Puncture Site Left radial Left radial ABG pH 7.32 L 7.32 L ABG pCO2 at Pt Temp 34.1 L 33.3 L ABG pO2 at Pt Temp 81.0 123.0 H D ABG HCO3 17.2 L 16.6 L ABG O2 Sat (Measured) 97.2 99.3 H ABG O2 Content 13.3 L 13.2 L ABG Base Excess -7.6 L -8.3 L Sen Test Positive Positive O2 Delivery Device Nasal Nasal Oxygen Flow Rate 2l 3l PEEP 0.0 0.0 Sodium Potassium Chloride Carbon Dioxide Anion Gap BUN Creatinine Creat Clearance w eGFR Random Glucose Lactic Acid 0.6 Calcium Phosphorus Magnesium Total Bilirubin AST ALT Alkaline Phosphatase Total Protein Albumin 02/08/17 02/08/17 08:15 08:15 WBC 6.2 RBC 2.99 L Hgb 9.9 L Hct 29.8 L MCV 99.6 H MCH 32.9 MCHC 33.1 RDW 15.4 Plt Count 84 L MPV 9.3 Puncture Site ABG pH ABG pCO2 at Pt Temp ABG pO2 at Pt Temp ABG HCO3 ABG O2 Sat (Measured) ABG O2 Content ABG Base Excess Sen Test O2 Delivery Device Oxygen Flow Rate PEEP Sodium 143 Potassium 3.8 Chloride 113 H Carbon Dioxide 18 L Anion Gap 12 BUN 32 H D Creatinine 2.5 H D Creat Clearance w eGFR 23.10 Random Glucose 100 Lactic Acid Calcium 8.5 Phosphorus 3.8 Magnesium 2.4 Total Bilirubin 0.7 D AST 61 H D ALT 109 H Alkaline Phosphatase 251 H Total Protein 5.6 L Albumin 2.3 L Problem List - Problems (1) Pneumonia Code(s): J18.9 - PNEUMONIA, UNSPECIFIED ORGANISM Qualifiers: Pneumonia type: due to unspecified organism Laterality: unspecified laterality Lung location: unspecified part of lung Qualified Code(s): J18.9 - Pneumonia, unspecified organism (2) Acute respiratory failure with hypoxia Code(s): J96.01 - ACUTE RESPIRATORY FAILURE WITH HYPOXIA (3) Cerebral palsy Code(s): G80.9 - CEREBRAL PALSY, UNSPECIFIED (4) Functional quadriplegia Code(s): R53.2 - FUNCTIONAL QUADRIPLEGIA (5) Mental retardation Code(s): F79 - UNSPECIFIED INTELLECTUAL DISABILITIES (6) Seizure disorder Code(s): G40.909 - EPILEPSY, UNSP, NOT INTRACTABLE, WITHOUT STATUS EPILEPTICUS Assessment/Plan Sepsis due to PNA CP Functional quadriplegia Seizures Severe developmental delay Hypoxemia Pulmonary Vascular Congestion (?) ARDS physiology -Trial of Lasix -Renal evaluation -O2 to maintain saturation -Aspiration precautions -ABX coverage -Follow final cultures -Minimize IVF -VTE prophylaxis Dr Ruffin Critical care time spent in reviewing chart, evaluating patient and formulating plan - 35 minutes
--- NOTE | 2017-02-08 12:44 | PN ---
Teaching Attending Note Name of Resident: Ekta Wan ATTENDING PHYSICIAN STATEMENT I saw and evaluated the patient. I reviewed the resident's note and discussed the case with the resident. I agree with the resident's findings and plan as documented. SUBJECTIVE: No events over night OBJECTIVE: comfortable , tachypnic . CV: RRR, tachy. Lungs: rales at both bases Ext: petechiae on LE , no edema ASSESSMENT AND PLAN: 26 y/o lady with h/o severe mental retardation ,cerebral palsy quadriplegia, recurrent PNAs , and seizure disorder who was sent from [place] with increased secretions and tachypnea. She was found to be septic with hypothermia 1- Sepsis: likely due to aspiration PNA . Cont to be tachypnic Cont to have non Anion gap Met acidosis with resp compensation . Nl lactic acid - cont zosyn , received a dose of vanco yesterday - cxray reviewed todayand d/w ICU staff, possible early ARDS vs volume overload . - Echo with Nl EF and nl LV function - follow blood cx and sputum cx ( non lactose fermenting bacilli x 2 ) - trial of lasix 2- ALEKSANDR: no clear etiology, ? ATN from decreased perfusion (hypotension) vs just hypovolemia. - Check urine electrolytes and calculate FeNA - Trial of lasix due to lung congestion - renal consult - renal US 3- H/o Seizure:no recurrence of seizure - cont current meds - If seizure recur , will consult neuro - ativan PRN 4- Chronic transaminitis : could be due to medicationsn VS underlyting liver disease ( Autoimmune hepatitis, PSC, ...etc ) . hepatitis serology was neg last admission stable LFTS for now complete w.u as out pt 5-Nutrition , cont continuous Tube feeds CCT 40 min D/W ICU team
--- NOTE | 2017-02-08 14:09 | PN ---
Progress Note, Physician History of Present Illness: patient seen and examined at bedside non verbal slightly tachypneic but not in distress - Current Medication List Current Medications: Active Medications Albuterol/Ipratropium (Duoneb -) 1 amp NEB QIDR [facility] Last Admin: 02/08/17 12:24 Dose: 1 amp Baclofen (Lioresal -) 5 mg GT TID [facility] Last Admin: 02/08/17 05:11 Dose: 5 mg Chlorhexidine Gluconate (Hibiclens For Decolonization -) 1 applic TP HS [facility] Last Admin: 02/07/17 22:14 Dose: 1 applic Diazepam (Diastat Rectal Gel -) 10 mg RC PRN PRN PRN Reason: ANXIETY Heparin Sodium (Porcine) (Heparin -) 5,000 unit SQ TID [facility] Last Admin: 02/08/17 05:13 Dose: 5,000 unit Piperacillin Sod/Tazobactam Sod (Zosyn 3.375gm Ivpb (Pre-Docked)) 50 mls @ 100 mls/hr IVPB Q8H-IV HARIS PRN Reason: Protocol Last Admin: 02/08/17 09:01 Dose: 100 mls/hr Sodium Chloride (Normal Saline -) 500 mls @ 21 mls/hr IV ASDIR ONE Stop: 02/08/17 23:10 Last Admin: 02/07/17 22:00 Dose: 21 mls/hr Lactulose (Cephulac (Oral Use)) 10 gm GT TID PRN PRN Reason: CONSTIPATION Last Admin: 02/08/17 09:38 Dose: 10 gm Levetiracetam (Keppra Oral Solution -) 1,500 mg GT BID@0630,1830 [facility] Last Admin: 02/08/17 07:03 Dose: 1,500 mg Mupirocin (Bactroban Ointment (For Decolonization) -) 1 applic NS BID [facility] Stop: 02/10/17 21:59 Last Admin: 02/08/17 09:02 Dose: 1 applic Oxcarbazepine (Trileptal) 180 mg GT DAILY@0630 [facility] Last Admin: 02/08/17 07:04 Dose: 180 mg Oxcarbazepine (Trileptal) 210 mg GT DAILY@1900 [facility] Last Admin: 02/07/17 18:24 Dose: 210 mg Scopolamine HBr (Transderm-Scop -) 1 patch TD Q72H [facility] Last Admin: 02/06/17 03:10 Dose: 1 patch Topiramate 200 mg/ Topiramate (25 mg) 225 mg GT BID@06,18 [facility] Last Admin: 02/08/17 05:11 Dose: 225 mg - Objective Vital Signs: Vital Signs Temperature 97.6 F 02/08/17 10:00 Pulse Rate 95 H 02/08/17 12:00 Respiratory Rate 32 H 02/08/17 12:00 Blood Pressure 103/56 02/08/17 12:00 O2 Sat by Pulse Oximetry (%) 100 02/08/17 12:16 Constitutional: Yes: No Distress HENT: Yes: Atraumatic, Normocephalic Neck: Yes: Supple, Trachea Midline Cardiovascular: Yes: Regular Rate and Rhythm Respiratory: Yes: Other (coarse breath sounds. large amount of secretions) Gastrointestinal: Yes: Soft, Other (PEG in place) Extremities: Yes: Other (lower and upper extremities contracted). small red spots of lower extremities ? petechiae Edema: No Labs: CBC, BMP 02/08/17 08:15 02/08/17 08:15 Assessment/Plan 26F with multiple medical problems presents to the hospital with sepsis secondary to pneumonia. pneumonia/hypoxemia. HCAP vs aspiration. possible ARDS etiology though unlikely. patient has a history of multiple aspirations in the past. ID consult appreciated continue zosyn given a dose of vanco to cover MRSA yesterday-will check vanco random level in AM CXR in AM scopolamine patch to dry up secretions. restrictive lung disease like picture given scoliosis Duonebs O2 PRN f/u sputum Cx-so far GNB non lactose fermenting-f/u final ID and sensitivities Pulmonary vascular congestion: stop IVF give one dose of 40mg IVP lasix repeat CXR in AM ALEKSANDR: likely from pre-renal causes such as decreased perfusion to the kidney give a trial of lasix nephrology consult urine electrolytes before lasix-calculate FeNa renal/bladder ultrasound Seizure disorder: continue trileptal continue topamax continue keppra diazepam rectal PRN functional quadriplegia: continue baclofen for spasticity severe developmental delay: will go back [facility] discharge FEN: KVO no electrolyte issues-give one dose of potassium Tube feeds @ 42ml/hr PPx: HSQ/SCDs no GI PPx indicated CCTime 35min
--- NOTE | 2017-02-08 15:05 | PN ---
Physical Exam: SUBJECTIVE: Patient seen and examined this AM. Events on tele reviewed. Pt's BP dropped after fluids were dropped. RR decreased from 40s to 30s. Pt likely to be transferred to floors as per ICU staff. OBJECTIVE: Vital Signs Period Temp Pulse Resp BP Sys/Herman Pulse Ox Last 24 Hr 96.7 F-97.6 F 73-96 22-40 88-127/48-86 98-100 GEN: Pt sleeping, coughing at times HEENT: PERRLA, no cervical LAD CV: S1, S2, RRR, no murmur appreciated LUNG: Rales/rhonchi in lung bases bilaterally ABD: Soft, ND, pt has PEG tube, hypoactive BS MSK: 2+ pulses, well perfused, no edema NEURO: Exam limited. PERRLA, no facial droop. Laboratory Results - last 24 hr 02/07/17 02/08/17 02/08/17 17:21 07:20 08:15 WBC 6.2 RBC 2.99 L Hgb 9.9 L Hct 29.8 L MCV 99.6 H MCH 32.9 MCHC 33.1 RDW 15.4 Plt Count 84 L MPV 9.3 Puncture Site Left radial ABG pH 7.32 L ABG pCO2 at Pt Temp 33.3 L ABG pO2 at Pt Temp 123.0 H D ABG HCO3 16.6 L ABG O2 Sat (Measured) 99.3 H ABG O2 Content 13.2 L ABG Base Excess -8.3 L Sen Test Positive O2 Delivery Device Nasal Oxygen Flow Rate 3l PEEP 0.0 Sodium Potassium Chloride Carbon Dioxide Anion Gap BUN Creatinine Creat Clearance w eGFR Random Glucose Lactic Acid 0.6 Calcium Phosphorus Magnesium Total Bilirubin AST ALT Alkaline Phosphatase Total Protein Albumin Urine Creatinine 02/08/17 02/08/17 08:15 11:30 WBC RBC Hgb Hct MCV MCH MCHC RDW Plt Count MPV Puncture Site ABG pH ABG pCO2 at Pt Temp ABG pO2 at Pt Temp ABG HCO3 ABG O2 Sat (Measured) ABG O2 Content ABG Base Excess Sen Test O2 Delivery Device Oxygen Flow Rate PEEP Sodium 143 Potassium 3.8 Chloride 113 H Carbon Dioxide 18 L Anion Gap 12 BUN 32 H D Creatinine 2.5 H D Creat Clearance w eGFR 23.10 Random Glucose 100 Lactic Acid Calcium 8.5 Phosphorus 3.8 Magnesium 2.4 Total Bilirubin 0.7 D AST 61 H D ALT 109 H Alkaline Phosphatase 251 H Total Protein 5.6 L Albumin 2.3 L Urine Creatinine 21.3 Active Medications Generic Name Dose Route Start Last Admin Trade Name Freq PRN Reason Stop Dose Admin Albuterol/Ipratropium 1 amp 02/05/17 18:00 02/08/17 12:24 Duoneb - NEB 1 amp QIDR HARIS Administration Baclofen 5 mg 02/05/17 22:00 02/08/17 14:09 Lioresal - GT 5 mg TID HARIS Administration Chlorhexidine Gluconate 1 applic 02/05/17 22:00 02/07/17 22:14 Hibiclens For Decolonization - TP 1 applic HS [facility]IS Administration Diazepam 10 mg 02/05/17 16:16 Diastat Rectal Gel - RC PRN PRN ANXIETY Heparin Sodium (Porcine) 5,000 unit 02/05/17 22:00 02/08/17 05:13 Heparin - SQ 5,000 unit TID HARIS Administration Piperacillin Sod/Tazobactam Sod 50 mls @ 100 mls/hr 02/06/17 14:30 02/08/17 09: 01 Zosyn 3.375gm Ivpb (Pre-Docked) IVPB 100 mls/hr Q8H-IV HARIS Administration Protocol Sodium Chloride 500 mls @ 21 mls/hr 02/07/17 23:22 02/07/17 22:00 Normal Saline - IV 02/08/17 23:10 21 mls/hr ASDIR ONE Administration Lactulose 10 gm 02/05/17 18:22 02/08/17 14:07 Cephulac (Oral Use) GT 10 gm TID PRN Administration CONSTIPATION Levetiracetam 1,500 mg 02/05/17 18:30 02/08/17 07:03 Keppra Oral Solution - GT 1,500 mg BID@0630,1830 [facility]IS Administration Mupirocin 1 applic 02/05/17 22:00 02/08/17 09:02 Bactroban Ointment (For Decolonization) - NS 02/10/17 21:59 1 applic BID [facility]IS Administration Oxcarbazepine 180 mg 02/06/17 06:30 02/08/17 07:04 Trileptal GT 180 mg DAILY@0630 [facility] Administration Oxcarbazepine 210 mg 02/05/17 19:00 02/07/17 18:24 Trileptal GT 210 mg DAILY@1900 [facility] Administration Scopolamine HBr 1 patch 02/06/17 01:00 02/06/17 03:10 Transderm-Scop - TD 1 patch Q72H [facility] Administration Topiramate 200 mg/ Topiramate 225 mg 02/05/17 18:00 02/08/17 05:11 25 mg GT 225 mg BID@06,18 [facility] Administration ASSESSMENT/PLAN: Pt is a 26yo F from [place] with severe MR, CP, spastic quadriplegia, seizure dz, with recurrent PNAs who presented with sepsis. # Sepsis likely 2/2 PNA - Aspiration vs HCAP - Continue Zosyn 3.375mg IV Q6 for pseudomonas + anaerobes - F/u Blood cx - prelim no growth - F/u sputum cx - LFGNB x2 - Duonebs - Scopolamine patch # Tachypnea - Pt has RR in the 40s - ABG shows no CO2 retention - CXR shows possible ARDS vs volume overload - Echo shows normal EF, normal LV function - Pt given Lasix IVP 40mg, d/c'd fluids, will assess # ALEKSANDR - worsening - Likely prerenal due to hypotension vs ATN - Will give lasix, assess Cr tomorrow - Monitor BPs since patient is now off fluids - Renal consult reviewed - agree with lasix, will look at UA, Ulytes, calculate FeUrea (given lasix), keep brown in place, check urine Eos, anca, anti GBM - Renal Ultrasound # NAG Metabolic Acidosis - Recent ABG shows met acidosis with resp compensation - F/u on lactate # Low PLT - 151 --> 136 --> 97 --> 84 - Pt had one episode of slight vaginal bleeding - Monitor for HIT (>50% drop), if so then stop Hep SQ # Hypoactive BS - Abdomen not distended on exam - KUB shows no obstruction # Transaminitis - Chronic - Hepatocellular pictures, less likely obstructive - Can f/u outpatient with imaging + autoimmune labs # Hx of Seizures - Continue in hospital (Keppra, Oxcarb, Topamax, Rectal DIazepam PRN) - Ativan PRN for new seizure - If pt presents with new seizures, consider Neuro consult # Hx of Spastic CP - Continue Baclofen # Hx of Constipation - Continue Senna and lactulose # FEN - Fluids: IVNS 50cc/hr - Electrolytes: Monitor - Nutrition: Changed bolus feeds --> continuous # Prophylaxis - DVT: Pt is high risk, Heparin SQ TID - GI: Not indicated # Dispo - Await sputum cx for correct antibiotic tx - Monitor RR, consider intubation Dr. Ekta Wan, PGY1 - Internal Medicine Visit type - Emergency Visit Emergency Visit: No - New Patient This patient is new to me today: No - Critical Care Critical Care patient: No - Discharge Referral Referred to [facility] Med P.C.: No
--- NOTE | 2017-02-08 16:07 | PN ---
Progress Note, Physician History of Present Illness: patient improving more calmer breathing better - Current Medication List Current Medications: Active Medications Albuterol/Ipratropium (Duoneb -) 1 amp NEB QIDR [facility] Last Admin: 02/08/17 12:24 Dose: 1 amp Baclofen (Lioresal -) 5 mg GT TID [facility] Last Admin: 02/08/17 14:09 Dose: 5 mg Chlorhexidine Gluconate (Hibiclens For Decolonization -) 1 applic TP HS [facility] Last Admin: 02/07/17 22:14 Dose: 1 applic Diazepam (Diastat Rectal Gel -) 10 mg RC PRN PRN PRN Reason: ANXIETY Heparin Sodium (Porcine) (Heparin -) 5,000 unit SQ TID [facility] Last Admin: 02/08/17 15:07 Dose: 5,000 unit Piperacillin Sod/Tazobactam Sod (Zosyn 3.375gm Ivpb (Pre-Docked)) 50 mls @ 100 mls/hr IVPB Q8H-IV [facility] PRN Reason: Protocol Last Admin: 02/08/17 09:01 Dose: 100 mls/hr Sodium Chloride (Normal Saline -) 500 mls @ 21 mls/hr IV ASDIR ONE Stop: 02/08/17 23:10 Last Admin: 02/07/17 22:00 Dose: 21 mls/hr Lactulose (Cephulac (Oral Use)) 10 gm GT TID PRN PRN Reason: CONSTIPATION Last Admin: 02/08/17 14:07 Dose: 10 gm Levetiracetam (Keppra Oral Solution -) 1,500 mg GT BID@0630,1830 [facility] Last Admin: 02/08/17 07:03 Dose: 1,500 mg Mupirocin (Bactroban Ointment (For Decolonization) -) 1 applic NS BID [facility] Stop: 02/10/17 21:59 Last Admin: 02/08/17 09:02 Dose: 1 applic Oxcarbazepine (Trileptal) 180 mg GT DAILY@0630 [facility] Last Admin: 02/08/17 07:04 Dose: 180 mg Oxcarbazepine (Trileptal) 210 mg GT DAILY@1900 [facility] Last Admin: 02/07/17 18:24 Dose: 210 mg Scopolamine HBr (Transderm-Scop -) 1 patch TD Q72H [facility] Last Admin: 02/06/17 03:10 Dose: 1 patch Topiramate 200 mg/ Topiramate (25 mg) 225 mg GT BID@ [facility] Last Admin: 02/08/17 05:11 Dose: 225 mg - Objective Vital Signs: Vital Signs Temperature 97.3 F L 02/08/17 14:00 Pulse Rate 83 02/08/17 14:00 Respiratory Rate 27 H 02/08/17 14:00 Blood Pressure 98/58 02/08/17 14:00 O2 Sat by Pulse Oximetry (%) 100 02/08/17 12:16 Constitutional: Yes: No Distress Neck: Yes: Supple Cardiovascular: Yes: Regular Rate and Rhythm Respiratory: Yes: Regular Gastrointestinal: Yes: Normal Bowel Sounds, Soft Musculoskeletal: Yes: WNL Extremities: Yes: WNL Neurological: Yes: Other Labs: CBC, BMP 02/08/17 08:15 02/08/17 08:15 Assessment/Plan Problem List - Problems (1) Pneumonia Code(s): J18.9 - PNEUMONIA, UNSPECIFIED ORGANISM Qualifiers: Pneumonia type: due to unspecified organism Laterality: unspecified laterality Lung location: unspecified part of lung Qualified Code(s): J18.9 - Pneumonia, unspecified organism (2) Acute respiratory failure with hypoxia Code(s): J96.01 - ACUTE RESPIRATORY FAILURE WITH HYPOXIA (3) Cerebral palsy Code(s): G80.9 - CEREBRAL PALSY, UNSPECIFIED (4) Functional quadriplegia Code(s): R53.2 - FUNCTIONAL QUADRIPLEGIA (5) Mental retardation Code(s): F79 - UNSPECIFIED INTELLECTUAL DISABILITIES (6) Seizure disorder Code(s): G40.909 - EPILEPSY, UNSP, NOT INTRACTABLE, WITHOUT STATUS EPILEPTICUS patient s renal function has detoriated wi plan conitnue zosyn suctioning aspiration precautions resp support monitor for detoriation rest as per icu one dose of vanco given cx reports noted if creatinine increases will adjust zosyn cc time 40 min
--- NOTE | 2017-02-08 16:34 | CONSULT ---
Consult Consult Specialty:: Nephrology Reason for Consultation:: ALEKSANDR - History of Present Illness Chief Complaint: sent in for increased cough and congestion. History of Present Illness: Pt is a 26 year old female with sever mental retardation, quadriplegia, and epilepsy who was sent in from [facility] for cough and congestion. She is unable to give history and chart was reviewed. Pt was found to be febrile and her breathing labored. She was admitted with sepsis secondary to PNA. Pt was found to have elevated creatinine and I was called to evaluate her. She is putting out urine. 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 Pt was initially given fluid but then found to be congested and started on lasix. 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 (CP) Pulmonary: Yes: Asthma, Pneumonia ...: No - Alcohol/Substance Use Hx Alcohol Use: No - Smoking History Smoking history: Never smoked Have you smoked in the past 12 months: No Aproximately how many cigarettes per day: 0 - Social History Usual Living Arrangement: Long Term History of Recent Travel: No Home Medications - Allergies Allergies/Adverse Reactions: Allergies Allergy/AdvReac Type Severity Reaction Status Date / Time No Known Allergies Allergy Verified 02/05/17 12:40 - Home Medications Home Medications: Ambulatory Orders Albuterol 0.083% Nebulizer Sobeida [Ventolin 0.083%] 1 neb NEB PRN PRN 02/05/17 Baclofen 5 mg GT TID 02/05/17 Cholecalciferol (Vitamin D3) [Vitamin D3] 2,000 unit GT DAILY 02/05/17 Diazepam [Diastat Acudial] 10 mg RC PRN PRN 02/05/17 Ipratropium/Albuterol Sulfate [Iprat-Albut 0.5-3(2.5) mg/3 ml] 3 ml IH Q4HWA PRN 02/05/17 Lactulose 15 gm GT TID 02/05/17 Levetiracetam 1,500 mg GT BID 02/05/17 Multivit-Min/FA/Lycopen/Lutein [Vitrum 50+ Senior Tablet] 1 each PO DAILY Nystatin Ointment [Mycostatin Ointment -] 1 applic TP PRN PRN 02/05/17 OXcarbazepine [Trileptal] 180 mg GT DAILY 02/05/17 OXcarbazepine [Trileptal] 210 mg GT HS 02/05/17 Topiramate 200 mg GT BID 02/05/17 Topiramate [Trokendi Xr] 25 mg GT BID 02/05/17 Family Disease History - Family Disease History Family History: Unable to Obtain Review of Systems Unable to obtain ROS, reason: severe MR Physical Exam Vital Signs: Vital Signs Temperature 97.3 F L 02/08/17 14:00 Pulse Rate 84 02/08/17 16:00 Respiratory Rate 30 H 02/08/17 16:00 Blood Pressure 98/58 02/08/17 16:00 O2 Sat by Pulse Oximetry (%) 100 02/08/17 12:16 Selected Entries 02/05/17 02/05/17 02/05/17 12:36 15:36 20:11 Blood Pressure 97/82 114/28 96/63 02/06/17 02/06/17 02/06/17 00:00 02:00 04:00 Blood Pressure 95/49 108/56 95/54 02/06/17 02/06/17 02/06/17 08:00 10:00 12:00 Blood Pressure 96/47 93/63 86/43 02/06/17 02/06/17 02/06/17 15:00 17:00 19:00 Blood Pressure 101/60 93/49 82/55 02/06/17 21:00 Blood Pressure 99/56 Constitutional: Yes: Calm Cardiovascular: Yes: S1, S2 Respiratory: Yes: Rhonchi Gastrointestinal: Yes: Soft Renal/: Yes: Brown Present Musculoskeletal: Yes: Muscle Weakness Edema: Yes Edema: LLE: Trace, RLE: Trace Neurological: Yes: Lethargy, Pre-Existing Deficit Labs: CBC, BMP 02/08/17 08:15 02/08/17 08:15 Laboratory Tests 02/05/17 02/05/17 02/06/17 13:40 13:40 05:35 WBC 11.3 H D 10.3 H Hgb Sodium Potassium Chloride Carbon Dioxide Anion Gap BUN Creatinine 0.3 L D Ur Random Sodium Urine Creatinine 02/06/17 02/07/17 02/08/17 05:35 07:40 08:15 WBC 6.2 Hgb 9.9 L Sodium Potassium Chloride Carbon Dioxide Anion Gap BUN Creatinine 0.3 L 1.3 H D Ur Random Sodium Urine Creatinine 02/08/17 02/08/17 02/08/17 08:15 16:00 16:00 WBC Hgb Sodium 143 Potassium 3.8 Chloride 113 H Carbon Dioxide 18 L Anion Gap 12 BUN 32 H D Creatinine 2.5 H D Ur Random Sodium Pending Urine Creatinine Pending Imaging - Results Chest X-ray: Report Reviewed Problem List - Problems (1) Pneumonia Code(s): J18.9 - PNEUMONIA, UNSPECIFIED ORGANISM Qualifiers: Pneumonia type: due to unspecified organism Laterality: unspecified laterality Lung location: unspecified part of lung Qualified Code(s): J18.9 - Pneumonia, unspecified organism (2) Acute respiratory failure with hypoxia Code(s): J96.01 - ACUTE RESPIRATORY FAILURE WITH HYPOXIA (3) ALEKSANDR (acute kidney injury) Code(s): N17.9 - ACUTE KIDNEY FAILURE, UNSPECIFIED Assessment/Plan Current Medications Generic Name Dose Route Start Last Admin Trade Name Freq PRN Reason Stop Dose Admin Albuterol/Ipratropium 1 amp 02/05/17 18:00 02/08/17 12:24 Duoneb - NEB 1 amp QIDR [facility] Administration Baclofen 5 mg 02/05/17 22:00 02/08/17 14:09 Lioresal - GT 5 mg TID [facility] Administration Chlorhexidine Gluconate 1 applic 02/05/17 22:00 02/07/17 22:14 Hibiclens For Decolonization - TP 1 applic HS [facility] Administration Diazepam 10 mg 02/05/17 16:16 Diastat Rectal Gel - RC PRN PRN ANXIETY Heparin Sodium (Porcine) 5,000 unit 02/05/17 22:00 02/08/17 15:07 Heparin - SQ 5,000 unit TID [facility] Administration Piperacillin Sod/Tazobactam Sod 50 mls @ 100 mls/hr 02/06/17 14:30 02/08/17 09: 01 Zosyn 3.375gm Ivpb (Pre-Docked) IVPB 100 mls/hr Q8H-IV [facility] Administration Protocol Sodium Chloride 500 mls @ 21 mls/hr 02/07/17 23:22 02/07/17 22:00 Normal Saline - IV 02/08/17 23:10 21 mls/hr ASDIR ONE Administration Lactulose 10 gm 02/05/17 18:22 02/08/17 14:07 Cephulac (Oral Use) GT 10 gm TID PRN Administration CONSTIPATION Levetiracetam 1,500 mg 02/05/17 18:30 02/08/17 07:03 Keppra Oral Solution - GT 1,500 mg BID@0630,1830 [facility] Administration Mupirocin 1 applic 02/05/17 22:00 02/08/17 09:02 Bactroban Ointment (For Decolonization) - NS 02/10/17 21:59 1 applic BID [facility] Administration Oxcarbazepine 180 mg 02/06/17 06:30 02/08/17 07:04 Trileptal GT 180 mg DAILY@0630 [facility] Administration Oxcarbazepine 210 mg 02/05/17 19:00 02/07/17 18:24 Trileptal GT 210 mg DAILY@1900 [facility] Administration Scopolamine HBr 1 patch 02/06/17 01:00 02/06/17 03:10 Transderm-Scop - TD 1 patch Q72H [facility] Administration Topiramate 200 mg/ Topiramate 225 mg 02/05/17 18:00 02/08/17 05:11 25 mg GT 225 mg BID@06,18 [facility] Administration Impression 1. ALEKSANDR 2. sepsis 3. pna 4. severe developmental delay 5. epilepsy 6. venous congestion Plan - send urine lytes and licensed land surveyor - check renal ultrasound - check ua - keep brown in place - send urine eos - agree with lasix for congestion - check anca and anti gbm - monitor renal function closely - will follow Dr Cesar
[2017-02-08 17:44] LABS: URINE APPEARANCE CLEAR; URINE BILIRUBIN NEGATIVE (NEGATIVE); URINE BLOOD 3+ (NEGATIVE); URINE COLOR STRAW; URINE GLUCOSE (UA) NEGATIVE (NEGATIVE); URINE KETONE NEGATIVE (NEGATIVE); URINE LEUK ESTERASE TRACE (NEGATIVE); URINE NITRITE NEGATIVE (NEGATIVE); URINE PROTEIN NEGATIVE (NEGATIVE); URINE UROBILINOGEN NEGATIVE mg/dL (0.2-1.0)
[2017-02-08] MEDS: CHLORHEXIDINE GLUCONATE 4% CLEANSER FOR DECOLONIZATION TP SCH (21:32)
[2017-02-08 22:55] LABS: URINE MUCUS RARE; URINE RBC 58 /hpf (0-3); URINE WBC 18 /hpf (3-5)
[2017-02-09] MEDS: PIPERACILLIN/TAZOB 3.375 GM 50 ML IVPB SCH ×2 (02:23→08:59)
[2017-02-09] MEDS: SCOPOLAMINE HYDROBROMIDE 1 PATCH PATCH.TD72 TD SCH (02:24)
[2017-02-09] MEDS: TOPIRAMATE GT SCH (05:19)
[2017-02-09] MEDS: HEPARIN NA (PORCINE) 5,000 UNITS/ML 1ML VIAL SQ SCH ×3 (05:20→21:51)
[2017-02-09] MEDS: BACLOFEN 10 MG TABLET (FP) GT SCH ×3 (05:21→21:52)
[2017-02-09] MEDS: levETIRAcetam 500 MG/5 ML ORAL SOLUTION (UNIT-DOSE CUPS) GT SCH (06:10)
[2017-02-09] MEDS: OXcarbazepine 300 MG/5 ML 250 ML BULK BOTTLE GT SCH (06:11)
[2017-02-09] MEDS: ALBUTEROL SO4 2.5/IPRATROPIUM 0.5 INH SOL 3 ML VIAL.NEB. NEB SCH ×2 (06:15→12:00)
[2017-02-09 06:28] LABS: BASOPHIL 0.2 % (0-2.0); EOSINOPHIL 0.4 % (0-4.5); MCH 33.5 pg (25.7-33.7); MCHC 34.1 g/dl (32.0-36.0); MEAN CELL VOLUME 98.4 fl (80-96); MEAN PLT VOLUME 9.8 fl (7.5-11.1); NEUTROPHILS 79.1 % (42.8-82.8); RDW 15.4 % (11.6-15.6); WHITE BLOOD COUNT 7.3 K/mm3 (4.0-10.0)
[2017-02-09 07:29] LABS: PLATELET COMMENT2 NO CLOTTING DETECTED; PLATELET COMMENT3 FEW LARGE PLTS; PLATELET COUNT 96 K/MM3 (134-434)
--- NOTE | 2017-02-09 07:58 | PN ---
Physical Exam: SUBJECTIVE: Patient seen and examined this AM. Pt received lasix yseterday. Overnight patient's MAP remained >65. RR started in the 30s, now in the 20s. HR has generally been <100. Pt has bleeding from vagina, previous call to [facility] indicated her last menstrual period was a month ago. Pt doing well with chest physiotherapy. Patient producing less secretions with scopolamine patch OBJECTIVE: Vital Signs Period Temp Pulse Resp BP Sys/Herman Pulse Ox Last 24 Hr 97.2 F-98.3 F 73-108 22-33 88-123/56-78 99-100 GEN: Pt sleeping, not coughing HEENT: PERRLA, no cervical LAD CV: S1, S2, RRR, no murmur appreciated LUNG: Rales/rhonchi in lung bases bilaterally ABD: Soft, ND, pt has PEG tube, hypoactive BS MSK: 2+ pulses, well perfused, no edema NEURO: Exam limited. PERRLA, no facial droop. Laboratory Results - last 24 hr 02/08/17 02/08/17 02/08/17 07:20 08:15 08:15 WBC 6.2 RBC 2.99 L Hgb 9.9 L Hct 29.8 L MCV 99.6 H MCH 32.9 MCHC 33.1 RDW 15.4 Plt Count 84 L MPV 9.3 Neutrophils % Lymphocytes % Monocytes % Eosinophils % Basophils % Platelet Comment Puncture Site Left radial ABG pH 7.32 L ABG pCO2 at Pt Temp 33.3 L ABG pO2 at Pt Temp 123.0 H D ABG HCO3 16.6 L ABG O2 Sat (Measured) 99.3 H ABG O2 Content 13.2 L ABG Base Excess -8.3 L Sen Test Positive O2 Delivery Device Nasal Oxygen Flow Rate 3l PEEP 0.0 Sodium 143 Potassium 3.8 Chloride 113 H Carbon Dioxide 18 L Anion Gap 12 BUN 32 H D Creatinine 2.5 H D Creat Clearance w eGFR 23.10 Random Glucose 100 Calcium 8.5 Phosphorus 3.8 Magnesium 2.4 Total Bilirubin 0.7 D AST 61 H D ALT 109 H Alkaline Phosphatase 251 H Total Protein 5.6 L Albumin 2.3 L Urine Color Urine Appearance Urine pH Ur Specific [place] Urine Protein Urine Glucose (UA) Urine Ketones Urine Blood Urine Nitrite Urine Bilirubin Urine Urobilinogen Ur Leukocyte Esterase Urine RBC Urine WBC Ur Epithelial Cells Urine Mucus Ur Random Sodium Ur Random Potassium Ur Random Chloride Ur Random Urea Nitrogn Urine Creatinine 02/08/17 02/08/17 02/08/17 11:30 16:00 16:00 WBC RBC Hgb Hct MCV MCH MCHC RDW Plt Count MPV Neutrophils % Lymphocytes % Monocytes % Eosinophils % Basophils % Platelet Comment Puncture Site ABG pH ABG pCO2 at Pt Temp ABG pO2 at Pt Temp ABG HCO3 ABG O2 Sat (Measured) ABG O2 Content ABG Base Excess Sen Test O2 Delivery Device Oxygen Flow Rate PEEP Sodium Potassium Chloride Carbon Dioxide Anion Gap BUN Creatinine Creat Clearance w eGFR Random Glucose Calcium Phosphorus Magnesium Total Bilirubin AST ALT Alkaline Phosphatase Total Protein Albumin Urine Color Urine Appearance Urine pH Ur Specific [place] Urine Protein Urine Glucose (UA) Urine Ketones Urine Blood Urine Nitrite Urine Bilirubin Urine Urobilinogen Ur Leukocyte Esterase Urine RBC Urine WBC Ur Epithelial Cells Urine Mucus Ur Random Sodium 103 Ur Random Potassium 8.8 Ur Random Chloride 106 Ur Random Urea Nitrogn Urine Creatinine 21.3 < 13.0 L 02/08/17 02/08/17 02/09/17 17:15 17:15 05:20 WBC 7.3 RBC 2.91 L Hgb 9.8 L Hct 28.6 L MCV 98.4 H MCH 33.5 MCHC 34.1 RDW 15.4 Plt Count 96 L MPV 9.8 Neutrophils % 79.1 Lymphocytes % 12.9 D Monocytes % 7.4 Eosinophils % 0.4 D Basophils % 0.2 Platelet Comment No clotting detected Puncture Site ABG pH ABG pCO2 at Pt Temp ABG pO2 at Pt Temp ABG HCO3 ABG O2 Sat (Measured) ABG O2 Content ABG Base Excess Sen Test O2 Delivery Device Oxygen Flow Rate PEEP Sodium Potassium Chloride Carbon Dioxide Anion Gap BUN Creatinine Creat Clearance w eGFR Random Glucose Calcium Phosphorus Magnesium Total Bilirubin AST ALT Alkaline Phosphatase Total Protein Albumin Urine Color Straw Urine Appearance Clear Urine pH 5.0 D Ur Specific [place] 1.010 Urine Protein Negative Urine Glucose (UA) Negative Urine Ketones Negative Urine Blood 3+ H Urine Nitrite Negative Urine Bilirubin Negative Urine Urobilinogen Negative Ur Leukocyte Esterase Trace Urine RBC 58 Urine WBC 18 Ur Epithelial Cells Rare Urine Mucus Rare Ur Random Sodium Ur Random Potassium Ur Random Chloride Ur Random Urea Nitrogn 81 Urine Creatinine Active Medications Generic Name Dose Route Start Last Admin Trade Name Freq PRN Reason Stop Dose Admin Albuterol/Ipratropium 1 amp 02/05/17 18:00 02/09/17 06:15 Duoneb - NEB 1 amp QIDR [facility] Administration Baclofen 5 mg 02/05/17 22:00 02/09/17 05:21 Lioresal - GT 5 mg TID [facility] Administration Chlorhexidine Gluconate 1 applic 02/05/17 22:00 02/08/17 21:32 Hibiclens For Decolonization - TP 1 applic HS [facility] Administration Diazepam 10 mg 02/05/17 16:16 Diastat Rectal Gel - RC PRN PRN ANXIETY Heparin Sodium (Porcine) 5,000 unit 02/05/17 22:00 02/09/17 05:20 Heparin - SQ 5,000 unit TID [facility] Administration Piperacillin Sod/Tazobactam Sod 50 mls @ 100 mls/hr 02/06/17 14:30 02/09/17 02: 23 Zosyn 3.375gm Ivpb (Pre-Docked) IVPB 100 mls/hr Q8H-IV [facility] Administration Protocol Lactulose 10 gm 02/05/17 18:22 02/08/17 14:07 Cephulac (Oral Use) GT 10 gm TID PRN Administration CONSTIPATION Levetiracetam 1,500 mg 02/05/17 18:30 02/09/17 06:10 Keppra Oral Solution - GT 1,500 mg BID@0630,1830 [facility] Administration Mupirocin 1 applic 02/05/17 22:00 02/08/17 21:32 Bactroban Ointment (For Decolonization) - NS 02/10/17 21:59 1 applic BID [facility] Administration Oxcarbazepine 180 mg 02/06/17 06:30 02/09/17 06:11 Trileptal GT 180 mg DAILY@0630 [facility] Administration Oxcarbazepine 210 mg 02/05/17 19:00 02/08/17 18:05 Trileptal GT 210 mg DAILY@1900 [facility] Administration Scopolamine HBr 1 patch 02/06/17 01:00 02/09/17 02:24 Transderm-Scop - TD 1 patch Q72H [facility] Administration Topiramate 200 mg/ Topiramate 225 mg 02/05/17 18:00 02/09/17 05:19 25 mg GT 225 mg BID@,18 [facility] Administration ASSESSMENT/PLAN: Pt is a 26yo F from [place] with severe MR, CP, spastic quadriplegia, seizure dz, with recurrent PNAs who presented with sepsis. # Sepsis likely 2/2 PNA - Aspiration vs HCAP - CXR and clinical status improved - F/u sputum cx -Pseudomonas + Serratia s/s Zosyn - Day 5 of Zosyn 3.375mg IV Q6 (started Feb 05) - Duonebs - Scopolamine patch # Tachypnea - resolving - RR in the 20s now, improved - Latest ABG shows no CO2 retention # ALEKSANDR - worsening - FeUrea >48.7% suggests intrinsic renal disease, possible ATN - Nephrology reccs increasing Free water through NGT 100cc Q6 --> 250cc Q6 - Renal/Bladder ultrasound shows no obstrction - Check Anca, AntiGBM # NAG Metabolic Acidosis - Recent ABG shows met acidosis with resp compensation - Likely from intrinsic kidney disease # Thrombocytopenia - PLT improved from yest - Vaginal bleeding likely normal menses, unlikely pathologic from low PLT - Continue to monitor PLT - Monitor for HIT (>50% drop), if so then stop Hep SQ # Transaminitis - Chronic - Hepatocellular pictures, less likely obstructive - Can f/u outpatient with imaging + autoimmune labs # Hx of Seizures - Continue in hospital (Keppra, Oxcarb, Topamax, Rectal Diazepam PRN) - Ativan PRN for new seizure - If pt presents with new seizures, consider Neuro consult # Hx of Spastic CP - Continue Baclofen # Hx of Constipation - Continue Senna and lactulose # FEN - Fluids: None - Electrolytes: Monitor - Nutrition: Continuous tube feeds with increased Free Water (100 -> 250cc Q6) # Prophylaxis - DVT: Pt is high risk, Heparin SQ TID - GI: Not indicated # Dispo - Pt needs at least 2 more days of treatment w/ Zosyn - F/u creatinine after increasing free water Dr. Ekta Wan, PGY1 - Internal Medicine Visit type - Emergency Visit Emergency Visit: No - New Patient This patient is new to me today: No - Critical Care Critical Care patient: No - Discharge Referral Referred to [facility] No
[2017-02-09] MEDS: MUPIROCIN 2% TOPICAL OINTMENT FOR DECOLONIZATION NS SCH (08:59)
[2017-02-09 09:09] LABS: ALBUMIN 2.2 g/dl (3.4-5.0); ALK PHOS 265 U/L (45-117); ANION GAP 15 (8-16); BILIRUBIN,TOTAL 0.5 mg/dL (0.2-1.0); CALCIUM 8.7 mg/dL (8.5-10.1); CO2 19 mmol/L (21-32); GLUCOSE,RANDOM 128 mg/dL (74-106); MAGNESIUM 2.8 mg/dL (1.8-2.4); PHOSPHOROUS 5.2 mg/dL (2.5-4.9); SGOT/AST 54 U/L (15-37); SGPT/ALT 108 U/L (12-78); TOT PROT 5.6 g/dl (6.4-8.2)
--- NOTE | 2017-02-09 09:56 | PN ---
Teaching Attending Note Name of Resident: Vidal Barboza ATTENDING PHYSICIAN STATEMENT I saw and evaluated the patient. I reviewed the resident's note and discussed the case with the resident. I agree with the resident's findings and plan as documented. SUBJECTIVE: Patient seen and examined in the ICU. Breathing seems less labored today. Remains lethargic and non-verbal on NC O2. No pressors. Noted increase in BUN/Creatinine CXR : Some decrease in bilateral airspace disease & effusions / Elevated Left diaphragm Intake & Output 02/06/17 02/07/17 02/08/17 02/09/17 23:59 23:59 23:59 23:59 Intake Total 1350 1340 1062 1006 Output Total 1090 500 Balance 1350 1340 -28 506 Weight 113 lb 15.664 oz 118 lb 9.739 oz 117 lb 11.629 oz Last Vital Signs Temp Pulse Resp BP Pulse Ox 98.1 F 98 H 24 103/57 100 02/09/17 06:00 02/09/17 08:00 02/09/17 08:00 02/09/17 08:00 02/08/17 21:18 Active Medications Albuterol/Ipratropium (Duoneb -) 1 amp NEB QIDR [facility] Last Admin: 02/09/17 06:15 Dose: 1 amp Baclofen (Lioresal -) 5 mg GT TID [facility] Last Admin: 02/09/17 05:21 Dose: 5 mg Chlorhexidine Gluconate (Hibiclens For Decolonization -) 1 applic TP HS [facility] Last Admin: 02/08/17 21:32 Dose: 1 applic Diazepam (Diastat Rectal Gel -) 10 mg RC PRN PRN PRN Reason: ANXIETY Heparin Sodium (Porcine) (Heparin -) 5,000 unit SQ TID [facility] Last Admin: 02/09/17 05:20 Dose: 5,000 unit Piperacillin Sod/Tazobactam Sod (Zosyn 3.375gm Ivpb (Pre-Docked)) 50 mls @ 100 mls/hr IVPB Q8H-IV [facility] PRN Reason: Protocol Last Admin: 02/09/17 08:59 Dose: 100 mls/hr Lactulose (Cephulac (Oral Use)) 10 gm GT TID PRN PRN Reason: CONSTIPATION Last Admin: 02/08/17 14:07 Dose: 10 gm Levetiracetam (Keppra Oral Solution -) 1,500 mg GT BID@0630,1830 [facility] Last Admin: 02/09/17 06:10 Dose: 1,500 mg Mupirocin (Bactroban Ointment (For Decolonization) -) 1 applic NS BID [facility] Stop: 02/10/17 21:59 Last Admin: 02/09/17 08:59 Dose: 1 applic Oxcarbazepine (Trileptal) 180 mg GT DAILY@0630 [facility] Last Admin: 02/09/17 06:11 Dose: 180 mg Oxcarbazepine (Trileptal) 210 mg GT DAILY@1900 [facility] Last Admin: 02/08/17 18:05 Dose: 210 mg Scopolamine HBr (Transderm-Scop -) 1 patch TD Q72H [facility] Last Admin: 02/09/17 02:24 Dose: 1 patch Topiramate 200 mg/ Topiramate (25 mg) 225 mg GT BID@,18 [facility] Last Admin: 02/09/17 05:19 Dose: 225 mg Constitutional: Yes: Less tachypneic on NC O2 Eyes: Yes: WNL HENT: Yes: Drooling Neck: Yes: Decreased ROM Cardiovascular: Yes: Tachycardia, S1, S2 Respiratory: Yes: Basilar rhonchi Gastrointestinal: Yes: Soft Musculoskeletal: Yes: Other (contracted) Extremities: Yes: Cool, Other (contracted) Edema: No Peripheral Pulses WNL: Yes Neurological: Yes: poorly responsive Laboratory Results - last 24 hr 02/08/17 02/08/17 02/08/17 11:30 16:00 16:00 WBC RBC Hgb Hct MCV MCH MCHC RDW Plt Count MPV Neutrophils % Lymphocytes % Monocytes % Eosinophils % Basophils % Platelet Comment Sodium Potassium Chloride Carbon Dioxide Anion Gap BUN Creatinine Creat Clearance w eGFR Random Glucose Calcium Phosphorus Magnesium Total Bilirubin AST ALT Alkaline Phosphatase Total Protein Albumin Urine Color Urine Appearance Urine pH Ur Specific [place] Urine Protein Urine Glucose (UA) Urine Ketones Urine Blood Urine Nitrite Urine Bilirubin Urine Urobilinogen Ur Leukocyte Esterase Urine RBC Urine WBC Ur Epithelial Cells Urine Mucus Ur Random Sodium 103 Ur Random Potassium 8.8 Ur Random Chloride 106 Ur Random Urea Nitrogn Urine Creatinine 21.3 < 13.0 L Random Vancomycin 02/08/17 02/08/17 02/09/17 17:15 17:15 05:20 WBC 7.3 RBC 2.91 L Hgb 9.8 L Hct 28.6 L MCV 98.4 H MCH 33.5 MCHC 34.1 RDW 15.4 Plt Count 96 L MPV 9.8 Neutrophils % 79.1 Lymphocytes % 12.9 D Monocytes % 7.4 Eosinophils % 0.4 D Basophils % 0.2 Platelet Comment No clotting detected Sodium Potassium Chloride Carbon Dioxide Anion Gap BUN Creatinine Creat Clearance w eGFR Random Glucose Calcium Phosphorus Magnesium Total Bilirubin AST ALT Alkaline Phosphatase Total Protein Albumin Urine Color Straw Urine Appearance Clear Urine pH 5.0 D Ur Specific [place] 1.010 Urine Protein Negative Urine Glucose (UA) Negative Urine Ketones Negative Urine Blood 3+ H Urine Nitrite Negative Urine Bilirubin Negative Urine Urobilinogen Negative Ur Leukocyte Esterase Trace Urine RBC 58 Urine WBC 18 Ur Epithelial Cells Rare Urine Mucus Rare Ur Random Sodium Ur Random Potassium Ur Random Chloride Ur Random Urea Nitrogn 81 Urine Creatinine Random Vancomycin 02/09/17 02/09/17 08:00 08:00 WBC RBC Hgb Hct MCV MCH MCHC RDW Plt Count MPV Neutrophils % Lymphocytes % Monocytes % Eosinophils % Basophils % Platelet Comment Sodium 146 H Potassium 3.4 L Chloride 112 H Carbon Dioxide 19 L Anion Gap 15 BUN 44 H D Creatinine 3.0 H Creat Clearance w eGFR 18.72 Random Glucose 128 H D Calcium 8.7 Phosphorus 5.2 H D Magnesium 2.8 H Total Bilirubin 0.5 D AST 54 H ALT 108 H Alkaline Phosphatase 265 H Total Protein 5.6 L Albumin 2.2 L Urine Color Urine Appearance Urine pH Ur Specific [place] Urine Protein Urine Glucose (UA) Urine Ketones Urine Blood Urine Nitrite Urine Bilirubin Urine Urobilinogen Ur Leukocyte Esterase Urine RBC Urine WBC Ur Epithelial Cells Urine Mucus Ur Random Sodium Ur Random Potassium Ur Random Chloride Ur Random Urea Nitrogn Urine Creatinine Random Vancomycin 30.840 Problem List - Problems (1) Pneumonia Code(s): J18.9 - PNEUMONIA, UNSPECIFIED ORGANISM Qualifiers: Pneumonia type: due to unspecified organism Laterality: unspecified laterality Lung location: unspecified part of lung Qualified Code(s): J18.9 - Pneumonia, unspecified organism (2) Acute respiratory failure with hypoxia Code(s): J96.01 - ACUTE RESPIRATORY FAILURE WITH HYPOXIA (3) Cerebral palsy Code(s): G80.9 - CEREBRAL PALSY, UNSPECIFIED (4) Functional quadriplegia Code(s): R53.2 - FUNCTIONAL QUADRIPLEGIA (5) Mental retardation Code(s): F79 - UNSPECIFIED INTELLECTUAL DISABILITIES (6) Seizure disorder Code(s): G40.909 - EPILEPSY, UNSP, NOT INTRACTABLE, WITHOUT STATUS EPILEPTICUS Assessment/Plan Sepsis due to PNA CP Functional quadriplegia Seizures Severe developmental delay Hypoxemia Pulmonary Vascular Congestion (?) ARDS physiology -Daily assessment for Lasix need -Renal evaluation noted -O2 to maintain saturation -Aspiration precautions -ABX coverage -Minimize IVF -VTE prophylaxis Dr Ruffin CCTime 35" Critical care time spent in reviewing chart, evaluating patient and formulating plan
--- NOTE | 2017-02-09 11:09 | PN ---
Progress Note, Physician History of Present Illness: patient seen and examined at bedside non verbal slightly tachypneic but not in distress - Current Medication List Current Medications: Active Medications Albuterol/Ipratropium (Duoneb -) 1 amp NEB QIDR [facility] Last Admin: 02/09/17 06:15 Dose: 1 amp Baclofen (Lioresal -) 5 mg GT TID [facility] Last Admin: 02/09/17 05:21 Dose: 5 mg Chlorhexidine Gluconate (Hibiclens For Decolonization -) 1 applic TP HS [facility] Last Admin: 02/08/17 21:32 Dose: 1 applic Diazepam (Diastat Rectal Gel -) 10 mg RC PRN PRN PRN Reason: ANXIETY Heparin Sodium (Porcine) (Heparin -) 5,000 unit SQ TID [facility] Last Admin: 02/09/17 05:20 Dose: 5,000 unit Piperacillin Sod/Tazobactam Sod (Zosyn 3.375gm Ivpb (Pre-Docked)) 50 mls @ 100 mls/hr IVPB Q8H-IV [facility] PRN Reason: Protocol Last Admin: 02/09/17 08:59 Dose: 100 mls/hr Lactulose (Cephulac (Oral Use)) 10 gm GT TID PRN PRN Reason: CONSTIPATION Last Admin: 02/08/17 14:07 Dose: 10 gm Levetiracetam (Keppra Oral Solution -) 1,500 mg GT BID@0630,1830 [facility] Last Admin: 02/09/17 06:10 Dose: 1,500 mg Mupirocin (Bactroban Ointment (For Decolonization) -) 1 applic NS BID [facility] Stop: 02/10/17 21:59 Last Admin: 02/09/17 08:59 Dose: 1 applic Oxcarbazepine (Trileptal) 180 mg GT DAILY@0630 [facility] Last Admin: 02/09/17 06:11 Dose: 180 mg Oxcarbazepine (Trileptal) 210 mg GT DAILY@1900 [facility] Last Admin: 02/08/17 18:05 Dose: 210 mg Potassium Chloride (Potassium Chloride Oral Liquid) 40 meq PEG BID [facility] Scopolamine HBr (Transderm-Scop -) 1 patch TD Q72H [facility] Last Admin: 02/09/17 02:24 Dose: 1 patch Topiramate 200 mg/ Topiramate (25 mg) 225 mg GT BID@06,18 [facility] Last Admin: 02/09/17 05:19 Dose: 225 mg - Objective Vital Signs: Vital Signs Temperature 98.5 F 02/09/17 10:00 Pulse Rate 96 H 02/09/17 10:00 Respiratory Rate 22 02/09/17 10:00 Blood Pressure 88/61 02/09/17 10:00 O2 Sat by Pulse Oximetry (%) 100 02/08/17 21:18 Constitutional: Yes: No Distress HENT: Yes: Atraumatic, Normocephalic Neck: Yes: Supple, Trachea Midline Cardiovascular: Yes: Regular Rate and Rhythm Respiratory: Yes: Other (scattered crackles but much improved than yesterday) Gastrointestinal: Yes: Soft, Other (PEG in place) Extremities: Yes: Other (lower and upper extremities contracted). small red spots of lower extremities ? petechiae Edema: No Labs: CBC, BMP 02/09/17 05:20 02/09/17 08:00 - ....Imaging Chest X-ray: Report Reviewed, Image Reviewed Ultrasound: Report Reviewed, Image Reviewed (no acute pathology of renal/ bladder US) Assessment/Plan 26F with multiple medical problems presents to the hospital with sepsis secondary to pneumonia. pneumonia/hypoxemia. HCAP vs aspiration. possible ARDS etiology though unlikely. patient has a history of multiple aspirations in the past. ID consult appreciated continue zosyn CXR in AM scopolamine patch to dry up secretions. restrictive lung disease like picture given scoliosis Duonebs O2 PRN sputum Cx-so far GNB non lactose fermenting-f/u final ID and sensitivities- serratial marcenans and pseudomonas are both sensitive to zosyn Pulmonary vascular congestion: stop IVF hold lasix for now as worsening renal function repeat CXR in AM ALEKSANDR: likely from pre-renal causes such as decreased perfusion to the kidney gave a trial of lasix renal function worsened will follow up nephrology renal/bladder ultrasound Seizure disorder: continue trileptal continue topamax continue keppra diazepam rectal PRN functional quadriplegia: continue baclofen for spasticity severe developmental delay: will go back to [facility] after discharge FEN: KVO no electrolyte issues-give one dose of potassium Tube feeds @ 42ml/hr PPx: HSQ/SCDs no GI PPx indicated CCTime 35min Transfer to Med/Surg
[2017-02-09] MEDS ORDERED: POTASSIUM CHLORIDE ORAL LIQUID 20 MEQ/15 ML PEG SCH ×2 (11:15→22:00)
[2017-02-09] MEDS: LACTULOSE 20 GM/30 ML UDC (FOR ORAL USE ONLY) GT PRN (14:03)
[2017-02-09] MEDS ORDERED: diazePAM ACUDIAL 5-7.5-10 MG 1 EACH KIT RC PRN ×2 (14:27→20:49)
[2017-02-09] MEDS ORDERED: LACTULOSE 20 GM/30 ML UDC (FOR ORAL USE ONLY) GT PRN ×2 (14:27→20:49)
--- NOTE | 2017-02-09 14:41 | PN ---
Progress Note, Physician History of Present Illness: Pt seen and examined at bedside. She remains in the ICU. Pt is not verbal. - Current Medication List Current Medications: Active Medications Albuterol/Ipratropium (Duoneb -) 1 amp NEB QIDR [facility] Baclofen (Lioresal -) 5 mg GT TID [facility] Chlorhexidine Gluconate (Hibiclens For Decolonization -) 1 applic TP HS [facility] Diazepam (Diastat Rectal Gel -) 10 mg RC PRN PRN PRN Reason: ANXIETY Heparin Sodium (Porcine) (Heparin -) 5,000 unit SQ TID [facility] Piperacillin Sod/Tazobactam Sod (Zosyn 3.375gm Ivpb (Pre-Docked)) 50 mls @ 100 mls/hr IVPB Q8H-IV [facility] PRN Reason: Protocol Lactulose (Cephulac (Oral Use)) 10 gm GT TID PRN PRN Reason: CONSTIPATION Levetiracetam (Keppra Oral Solution -) 1,500 mg GT BID@0630,1830 [facility] Mupirocin (Bactroban Ointment (For Decolonization) -) 1 applic NS BID [facility] Stop: 02/10/17 21:59 Oxcarbazepine (Trileptal) 210 mg GT DAILY@1900 [facility] Oxcarbazepine (Trileptal) 180 mg GT DAILY@0630 [facility] Potassium Chloride (Potassium Chloride Oral Liquid) 40 meq PEG BID [facility] Scopolamine HBr (Transderm-Scop -) 1 patch TD Q72H [facility] Topiramate 200 mg/ Topiramate (25 mg) 225 mg GT BID@06,18 [facility] - Objective Vital Signs: Vital Signs Temperature 98.5 F 02/09/17 10:00 Pulse Rate 73 02/09/17 12:00 Respiratory Rate 16 02/09/17 12:00 Blood Pressure 91/67 02/09/17 12:00 O2 Sat by Pulse Oximetry (%) 99 02/09/17 09:00 Constitutional: Yes: Calm Eyes: Yes: Conjunctiva Clear Cardiovascular: Yes: S1, S2 Respiratory: Yes: Rhonchi Gastrointestinal: Yes: Soft, Other (peg) Genitourinary: Yes: Brown Present Musculoskeletal: Yes: Muscle Weakness Edema: No Neurological: Yes: Lethargy, Pre-Existing Deficit Labs: CBC, BMP 02/09/17 05:20 02/09/17 08:00 - ....Imaging Chest X-ray: Report Reviewed Problem List - Problems (1) Pneumonia Code(s): J18.9 - PNEUMONIA, UNSPECIFIED ORGANISM Qualifiers: Pneumonia type: due to unspecified organism Laterality: unspecified laterality Lung location: unspecified part of lung Qualified Code(s): J18.9 - Pneumonia, unspecified organism (2) Acute respiratory failure with hypoxia Code(s): J96.01 - ACUTE RESPIRATORY FAILURE WITH HYPOXIA (3) ALEKSANDR (acute kidney injury) Code(s): N17.9 - ACUTE KIDNEY FAILURE, UNSPECIFIED Assessment/Plan Current Medications Generic Name Dose Route Start Last Admin Trade Name Freq PRN Reason Stop Dose Admin Albuterol/Ipratropium 1 amp 02/09/17 18:00 Duoneb - NEB QIDR [facility] Baclofen 5 mg 02/09/17 22:00 Lioresal - GT TID [facility] Chlorhexidine Gluconate 1 applic 02/09/17 22:00 Hibiclens For Decolonization - TP HS [facility] Diazepam 10 mg 02/09/17 14:27 Diastat Rectal Gel - RC PRN PRN ANXIETY Heparin Sodium (Porcine) 5,000 unit 02/09/17 22:00 Heparin - SQ TID [facility] Piperacillin Sod/Tazobactam Sod 50 mls @ 100 mls/hr 02/09/17 18:00 Zosyn 3.375gm Ivpb (Pre-Docked) IVPB Q8H-IV [facility] Protocol Lactulose 10 gm 02/09/17 14:27 Cephulac (Oral Use) GT TID PRN CONSTIPATION Levetiracetam 1,500 mg 02/09/17 18:30 Keppra Oral Solution - GT BID@0630,1830 [facility] Mupirocin 1 applic 02/09/17 22:00 Bactroban Ointment (For Decolonization) - NS 02/10/17 21:59 BID [facility] Oxcarbazepine 210 mg 02/09/17 19:00 Trileptal GT DAILY@1900 [facility] Oxcarbazepine 180 mg 02/10/17 06:30 Trileptal GT DAILY@0630 [facility] Potassium Chloride 40 meq 02/09/17 22:00 Potassium Chloride Oral Liquid PEG BID [facility] Scopolamine HBr 1 patch 02/12/17 01:00 Transderm-Scop - TD Q72H [facility] Topiramate 200 mg/ Topiramate 225 mg 02/09/17 18:00 25 mg GT BID@ [facility] Laboratory Tests 02/08/17 17:15 Urine Eosinophils Pending c-ANCA Pending Proteinase 3 (PR3) Pending p-ANCA Pending Atypical p-ANCA Pending Myeloperoxidase Ab Pending Glomerular Base Memb Ab Pending Impression 1. ALEKSANDR 2. sepsis 3. pna 4. severe developmental delay 5. epilepsy 6. venous congestion Plan - renal function continues to worsen - monitor urine ouput - no lasix today - follow renal workup - keep brown in place - cont abx - will repeat ua today - will follow Dr Cesar
--- NOTE | 2017-02-09 16:53 | PN ---
Progress Note, Physician History of Present Illness: stable still with lethargy on nasal canula breathing better - Current Medication List Current Medications: Active Medications Albuterol/Ipratropium (Duoneb -) 1 amp NEB QIDR [facility] Baclofen (Lioresal -) 5 mg GT TID [facility] Chlorhexidine Gluconate (Hibiclens For Decolonization -) 1 applic TP HS [facility] Diazepam (Diastat Rectal Gel -) 10 mg RC PRN PRN PRN Reason: ANXIETY Heparin Sodium (Porcine) (Heparin -) 5,000 unit SQ TID [facility] Piperacillin Sod/Tazobactam Sod (Zosyn 3.375gm Ivpb (Pre-Docked)) 50 mls @ 100 mls/hr IVPB Q8H-IV [facility] PRN Reason: Protocol Lactulose (Cephulac (Oral Use)) 10 gm GT TID PRN PRN Reason: CONSTIPATION Levetiracetam (Keppra Oral Solution -) 1,500 mg GT BID@0630,1830 [facility] Mupirocin (Bactroban Ointment (For Decolonization) -) 1 applic NS BID [facility] Stop: 02/10/17 21:59 Oxcarbazepine (Trileptal) 210 mg GT DAILY@1900 [facility] Oxcarbazepine (Trileptal) 180 mg GT DAILY@0630 [facility] Potassium Chloride (Potassium Chloride Oral Liquid) 40 meq PEG BID [facility] Scopolamine HBr (Transderm-Scop -) 1 patch TD Q72H [facility] Topiramate 200 mg/ Topiramate (25 mg) 225 mg GT BID@06,18 [facility] - Objective Vital Signs: Vital Signs Temperature 98.5 F 02/09/17 10:00 Pulse Rate 73 02/09/17 12:00 Respiratory Rate 16 02/09/17 12:00 Blood Pressure 91/67 02/09/17 12:00 O2 Sat by Pulse Oximetry (%) 99 02/09/17 09:00 Constitutional: Yes: No Distress, Calm Cardiovascular: Yes: Regular Rate and Rhythm Respiratory: Yes: On Nasal O2, Poor Air Entry, Rhonchi Gastrointestinal: Yes: Normal Bowel Sounds, Soft Musculoskeletal: Yes: WNL Extremities: Yes: Other Neurological: Yes: Other Labs: CBC, BMP 02/09/17 05:20 02/09/17 08:00 Assessment/Plan Problem List - Problems (1) Pneumonia Code(s): J18.9 - PNEUMONIA, UNSPECIFIED ORGANISM Qualifiers: Pneumonia type: due to unspecified organism Laterality: unspecified laterality Lung location: unspecified part of lung Qualified Code(s): J18.9 - Pneumonia, unspecified organism (2) Acute respiratory failure with hypoxia Code(s): J96.01 - ACUTE RESPIRATORY FAILURE WITH HYPOXIA (3) Cerebral palsy Code(s): G80.9 - CEREBRAL PALSY, UNSPECIFIED (4) Functional quadriplegia Code(s): R53.2 - FUNCTIONAL QUADRIPLEGIA (5) Mental retardation Code(s): F79 - UNSPECIFIED INTELLECTUAL DISABILITIES (6) Seizure disorder Code(s): G40.909 - EPILEPSY, UNSP, NOT INTRACTABLE, WITHOUT STATUS EPILEPTICUS patient s renal function has detoriated wi plan conitnue zosyn suctioning aspiration precautions resp support monitor for detoriation rest as per icu cx reports noted monitor creatinine cc time 40 min
--- NOTE | 2017-02-09 17:44 | PN ---
Teaching Attending Note Name of Resident: Ekta Wan ATTENDING PHYSICIAN STATEMENT I saw and evaluated the patient. I reviewed the resident's note and discussed the case with the resident. I agree with the resident's findings and plan as documented. SUBJECTIVE: Patient looks comfortable, from [facility]. OBJECTIVE: Vital Signs Temperature 98.5 F 02/09/17 10:00 Pulse Rate 73 02/09/17 12:00 Respiratory Rate 16 02/09/17 12:00 Blood Pressure 91/67 02/09/17 12:00 O2 Sat by Pulse Oximetry (%) 99 02/09/17 09:00 CBCD WBC 7.3 K/mm3 (4.0-10.0) 02/09/17 05:20 RBC 2.91 M/mm3 (3.60-5.2) L 02/09/17 05:20 Hgb 9.8 GM/dL (10.7-15.3) L 02/09/17 05:20 Hct 28.6 % (32.4-45.2) L 02/09/17 05:20 MCV 98.4 fl (80-96) H 02/09/17 05:20 MCHC 34.1 g/dl (32.0-36.0) 02/09/17 05:20 RDW 15.4 % (11.6-15.6) 02/09/17 05:20 Plt Count 96 K/MM3 (134-434) L 02/09/17 05:20 MPV 9.8 fl (7.5-11.1) 02/09/17 05:20 CMP Sodium 146 mmol/L (136-145) H 02/09/17 08:00 Potassium 3.4 mmol/L (3.5-5.1) L 02/09/17 08:00 Chloride 112 mmol/L (98-107) H 02/09/17 08:00 Carbon Dioxide 19 mmol/L (21-32) L 02/09/17 08:00 Anion Gap 15 (8-16) 02/09/17 08:00 BUN 44 mg/dL (7-18) H D 02/09/17 08:00 Creatinine 3.0 mg/dL (0.55-1.02) H 02/09/17 08:00 Creat Clearance w eGFR 18.72 (>60) 02/09/17 08:00 Random Glucose 128 mg/dL (74-106) H D 02/09/17 08:00 Calcium 8.7 mg/dL (8.5-10.1) 02/09/17 08:00 Total Bilirubin 0.5 mg/dL (0.2-1.0) D 02/09/17 08:00 AST 54 U/L (15-37) H 02/09/17 08:00 ALT 108 U/L (12-78) H 02/09/17 08:00 Alkaline Phosphatase 265 U/L (45-117) H 02/09/17 08:00 Total Protein 5.6 g/dl (6.4-8.2) L 02/09/17 08:00 Albumin 2.2 g/dl (3.4-5.0) L 02/09/17 08:00 Current Medications Generic Name Dose Route Start Last Admin Trade Name Freq PRN Reason Stop Dose Admin Albuterol/Ipratropium 1 amp 02/09/17 18:00 Duoneb - NEB QIDR [facility] Baclofen 5 mg 02/09/17 22:00 Lioresal - GT TID [facility] Chlorhexidine Gluconate 1 applic 02/09/17 22:00 Hibiclens For Decolonization - TP HS [facility] Diazepam 10 mg 02/09/17 14:27 Diastat Rectal Gel - RC PRN PRN ANXIETY Heparin Sodium (Porcine) 5,000 unit 02/09/17 22:00 Heparin - SQ TID [facility] Piperacillin Sod/Tazobactam Sod 50 mls @ 100 mls/hr 02/09/17 18:00 Zosyn 3.375gm Ivpb (Pre-Docked) IVPB Q8H-IV [facility] Protocol Lactulose 10 gm 02/09/17 14:27 Cephulac (Oral Use) GT TID PRN CONSTIPATION Levetiracetam 1,500 mg 02/09/17 18:30 Keppra Oral Solution - GT BID@0630,1830 [facility] Mupirocin 1 applic 02/09/17 22:00 Bactroban Ointment (For Decolonization) - NS 02/10/17 21:59 BID [facility] Oxcarbazepine 210 mg 02/09/17 19:00 Trileptal GT DAILY@1900 [facility] Oxcarbazepine 180 mg 02/10/17 06:30 Trileptal GT DAILY@0630 [facility] Potassium Chloride 40 meq 02/09/17 22:00 Potassium Chloride Oral Liquid PEG BID [facility] Scopolamine HBr 1 patch 02/12/17 01:00 Transderm-Scop - TD Q72H [facility] Topiramate 200 mg/ Topiramate 225 mg 02/09/17 18:00 25 mg GT BID@06,18 [facility] Home Medications Medication Instructions Recorded Albuterol 0.083% Nebulizer Sobeida 1 neb NEB PRN PRN 02/05/17 [Ventolin 0.083%] Baclofen 5 mg GT TID 02/05/17 Cholecalciferol (Vitamin D3) 2,000 unit GT DAILY 02/05/17 [Vitamin D3] Diazepam [Diastat Acudial] 10 mg RC PRN PRN 02/05/17 Ipratropium/Albuterol Sulfate 3 ml IH Q4HWA PRN 02/05/17 [Iprat-Albut 0.5-3(2.5) mg/3 ml] Lactulose 15 gm GT TID 02/05/17 Levetiracetam 1,500 mg GT BID 02/05/17 Multivit-Min/FA/Lycopen/Lutein 1 each PO DAILY 02/05/17 [Vitrum 50+ Senior Tablet] Nystatin Ointment [Mycostatin 1 applic TP PRN PRN 02/05/17 Ointment -] OXcarbazepine [Trileptal] 180 mg GT DAILY 02/05/17 OXcarbazepine [Trileptal] 210 mg GT HS 02/05/17 Topiramate 200 mg GT BID 02/05/17 Topiramate [Trokendi Xr] 25 mg GT BID 02/05/17 ASSESSMENT AND PLAN: 26 y/o lady with h/o severe mental retardation ,cerebral palsy quadriplegia, recurrent PNAs , and seizure disorder who was sent from [place] with increased secretions and tachypnea. She was found to be septic with hypothermia # Sepsis: likely due to aspiration PNA . On IV Antibiotic zosyn renally dosed and s/p Vanco # Aspiration Pneumonia on IV zosyn , ID on the case # ALEKSANDR:possible due to sepsis ; ATN from decreased perfusion (hypotension) vs just hypovolemia. Incerrease free fluid from the tube feeding from 100ml to 250ml q6 + 1 liter of free fluid, will repeat the levels in am # H/o Seizure:no recurrence of seizure , cont current meds # Chronic transaminitis : could be due to medicationsn vs underlying liver disease ( Autoimmune hepatitis, PSC, ...etc ) . hepatitis serology was neg last admission ;stable LFTS for now. complete w.u as out pt # Nutrition on Peg tube feeding and increased the free fluid water since dehydrated and elevated creatinine discussed with DVT Px: Heparin
[2017-02-09] MEDS ORDERED: TOPIRAMATE GT SCH (18:00)
[2017-02-09] MEDS ORDERED: PIPERACILLIN/TAZOB 3.375 GM 50 ML IVPB SCH (18:00)
[2017-02-09] MEDS ORDERED: ALBUTEROL SO4 2.5/IPRATROPIUM 0.5 INH SOL 3 ML VIAL.NEB. NEB SCH (18:00)
[2017-02-09] MEDS ORDERED: levETIRAcetam 500 MG/5 ML ORAL SOLUTION (UNIT-DOSE CUPS) GT SCH (18:30)
[2017-02-09] MEDS ORDERED: OXcarbazepine 300 MG/5 ML 250 ML BULK BOTTLE GT SCH (19:00)
[2017-02-09 19:17] LABS: URINE APPEARANCE SLCLOUDY; URINE BILIRUBIN NEGATIVE (NEGATIVE); URINE BLOOD 2+ (NEGATIVE); URINE COLOR STRAW; URINE GLUCOSE (UA) NEGATIVE (NEGATIVE); URINE KETONE NEGATIVE (NEGATIVE); URINE LEUK ESTERASE NEGATIVE (NEGATIVE); URINE NITRITE NEGATIVE (NEGATIVE); URINE PROTEIN NEGATIVE (NEGATIVE); URINE UROBILINOGEN NEGATIVE mg/dL (0.2-1.0)
[2017-02-09 20:14] LABS: URINE HYALINE CAST 1 /lpf; URINE MUCUS RARE; URINE RBC 45 /hpf (0-3); URINE WBC 5 /hpf (3-5)
[2017-02-09] MEDS: POTASSIUM CHLORIDE ORAL LIQUID 20 MEQ/15 ML PEG SCH (21:52)
[2017-02-09] MEDS ORDERED: MUPIROCIN 2% TOPICAL OINTMENT FOR DECOLONIZATION NS SCH ×2 (22:00)
[2017-02-09] MEDS ORDERED: HEPARIN NA (PORCINE) 5,000 UNITS/ML 1ML VIAL SQ SCH (22:00)
[2017-02-09] MEDS ORDERED: BACLOFEN 10 MG TABLET (FP) GT SCH (22:00)
[2017-02-09] MEDS ORDERED: CHLORHEXIDINE GLUCONATE 4% CLEANSER FOR DECOLONIZATION TP SCH ×2 (22:00)
[2017-02-09] MEDS ORDERED: ALBUTEROL SO4 2.5/IPRATROPIUM 0.5 INH SOL 3 ML VIAL.NEB. NEB ONE (22:41)
[2017-02-10] MEDS: ALBUTEROL SO4 2.5/IPRATROPIUM 0.5 INH SOL 3 ML VIAL.NEB. NEB SCH ×5 (00:20→23:16)
[2017-02-10] MEDS: PIPERACILLIN/TAZOB 3.375 GM 50 ML IVPB SCH ×3 (02:17→18:13)
[2017-02-10] MEDS: TOPIRAMATE GT SCH ×2 (05:43→18:12)
[2017-02-10] MEDS: BACLOFEN 10 MG TABLET (FP) GT SCH ×3 (05:43→22:07)
[2017-02-10] MEDS: HEPARIN NA (PORCINE) 5,000 UNITS/ML 1ML VIAL SQ SCH ×3 (05:43→22:08)
[2017-02-10] MEDS: OXcarbazepine 300 MG/5 ML 250 ML BULK BOTTLE GT SCH ×2 (05:44→19:05)
[2017-02-10] MEDS: levETIRAcetam 500 MG/5 ML ORAL SOLUTION (UNIT-DOSE CUPS) GT SCH ×2 (05:53→18:08)
[2017-02-10] MEDS ORDERED: OXcarbazepine 300 MG/5 ML 250 ML BULK BOTTLE GT SCH (06:30)
[2017-02-10 06:41] LABS: MCH 33.8 pg (25.7-33.7); MCHC 33.8 g/dl (32.0-36.0); MEAN CELL VOLUME 99.9 fl (80-96); MEAN PLT VOLUME 10.3 fl (7.5-11.1); PLATELET COUNT 103 K/MM3 (134-434); RDW 15.5 % (11.6-15.6); WHITE BLOOD COUNT 6.5 K/mm3 (4.0-10.0)
--- NOTE | 2017-02-10 07:18 | PN ---
Physical Exam: SUBJECTIVE: Patient seen and examined this AM. Nonverbal at baseline. Pt is receiving 41cc/hr of free water, will increase to 60cc/hr due to non-improving Cr, and increasing sodium. Pt still bleeding from vagina, likely on period. Breathing better, RR improved last night OBJECTIVE: Vital Signs Period Temp Pulse Resp BP Sys/Herman Pulse Ox Last 24 Hr 96.4 F-98.5 F 73-110 16-30 88-113/56-75 99-100 GEN: Pt sleeping, comfortable not coughing HEENT: PERRLA, no cervical LAD CV: S1, S2, RRR, no murmur appreciated LUNG: Rales/rhonchi in lung bases bilaterally ABD: Soft, ND, pt has G tube, hypoactive BS, but having regular BMs MSK: 2+ pulses, well perfused, no edema NEURO: Exam limited. PERRLA, no facial droop. Laboratory Results - last 24 hr 02/09/17 02/09/17 02/09/17 05:20 08:00 08:00 WBC 7.3 RBC 2.91 L Hgb 9.8 L Hct 28.6 L MCV 98.4 H MCH 33.5 MCHC 34.1 RDW 15.4 Plt Count 96 L MPV 9.8 Neutrophils % 79.1 Lymphocytes % 12.9 D Monocytes % 7.4 Eosinophils % 0.4 D Basophils % 0.2 Platelet Comment No clotting detected Sodium 146 H Potassium 3.4 L Chloride 112 H Carbon Dioxide 19 L Anion Gap 15 BUN 44 H D Creatinine 3.0 H Creat Clearance w eGFR 18.72 Random Glucose 128 H D Calcium 8.7 Phosphorus 5.2 H D Magnesium 2.8 H Total Bilirubin 0.5 D AST 54 H ALT 108 H Alkaline Phosphatase 265 H Total Protein 5.6 L Albumin 2.2 L Urine Color Urine Appearance Urine pH Ur Specific Raven Urine Protein Urine Glucose (UA) Urine Ketones Urine Blood Urine Nitrite Urine Bilirubin Urine Urobilinogen Ur Leukocyte Esterase Urine RBC Urine WBC Hyaline Casts Urine Mucus Urine Osmolality Ur Random Sodium Ur Random Potassium Ur Random Chloride Random Vancomycin 30.840 02/09/17 02/09/17 02/09/17 18:45 18:45 18:45 WBC RBC Hgb Hct MCV MCH MCHC RDW Plt Count MPV Neutrophils % Lymphocytes % Monocytes % Eosinophils % Basophils % Platelet Comment Sodium Potassium Chloride Carbon Dioxide Anion Gap BUN Creatinine Creat Clearance w eGFR Random Glucose Calcium Phosphorus Magnesium Total Bilirubin AST ALT Alkaline Phosphatase Total Protein Albumin Urine Color Straw Urine Appearance Slcloudy Urine pH 5.0 Ur Specific Raven <= 1.005 Urine Protein Negative Urine Glucose (UA) Negative Urine Ketones Negative Urine Blood 2+ H Urine Nitrite Negative Urine Bilirubin Negative Urine Urobilinogen Negative Ur Leukocyte Esterase Negative Urine RBC 45 Urine WBC 5 Hyaline Casts 1 Urine Mucus Rare Urine Osmolality 259 L Ur Random Sodium 73 Ur Random Potassium 18.2 Ur Random Chloride 74 Random Vancomycin Active Medications Generic Name Dose Route Start Last Admin Trade Name Freq PRN Reason Stop Dose Admin Albuterol/Ipratropium 1 amp 02/10/17 00:00 02/10/17 06:39 Duoneb - NEB 1 amp QIDR [facility] Administration Baclofen 5 mg 02/09/17 22:00 02/10/17 05:43 Lioresal - GT 5 mg TID [facility] Administration Diazepam 10 mg 02/09/17 20:49 Diastat Rectal Gel - RC PRN PRN ANXIETY Heparin Sodium (Porcine) 5,000 unit 02/09/17 22:00 02/10/17 05:43 Heparin - SQ 5,000 unit TID [facility] Administration Piperacillin Sod/Tazobactam Sod 50 mls @ 100 mls/hr 02/10/17 02:00 02/10/17 02: 17 Zosyn 3.375gm Ivpb (Pre-Docked) IVPB 100 mls/hr Q8H-IV [facility] Administration Protocol Lactulose 10 gm 02/09/17 20:49 Cephulac (Oral Use) GT TID PRN CONSTIPATION Levetiracetam 1,500 mg 02/10/17 06:30 02/10/17 05:53 Keppra Oral Solution - GT 1,500 mg BID@0630,1830 [facility] Administration Oxcarbazepine 180 mg 02/10/17 06:30 02/10/17 05:44 Trileptal GT 5 ml DAILY@0630 [facility] Administration Oxcarbazepine 210 mg 02/10/17 19:00 Trileptal GT DAILY@1900 [facility] Potassium Chloride 40 meq 02/09/17 22:00 02/09/17 21:52 Potassium Chloride Oral Liquid PEG 40 meq BID [facility] Administration Scopolamine HBr 1 patch 02/12/17 01:00 Transderm-Scop - TD Q72H [facility] Topiramate 200 mg/ Topiramate 225 mg 02/10/17 06:00 02/10/17 05:43 25 mg GT 225 mg BID@ [facility] Administration ASSESSMENT/PLAN: Pt is a 26yo F from [place] with severe MR, CP, spastic quadriplegia, seizure dz, with recurrent PNAs who presented with sepsis. # Sepsis likely 2/2 PNA - resolving - Aspiration vs HCAP - CXR and clinical status improved - F/u sputum cx -Pseudomonas + Serratia s/s Zosyn - Day 6 of Zosyn 3.375mg IV Q6 (started Feb 05) - Duonebs - Scopolamine patch # ALEKSANDR - stable - FeUrea >48.7% suggests intrinsic renal disease, possible ATN - Nephrology reccs increasing Free water through NGT 42cc/hr (1,000/day) --> 60cc/hr (1,400/day) - Renal/Bladder ultrasound shows no obstrction - F/u Anca, AntiGBM # Hyperkalemia - Potassium trending up, Max 7.0 - Stat EKG showed prominent t waves - Given calcium gluconate, insulin, D5, sodium bicarb, kayexalate - Repeat BMP in 4 hours # Tachypnea - resolving - RR in the 20s now, improved - Latest ABG shows no CO2 retention # NAG Metabolic Acidosis - Recent ABG shows met acidosis with resp compensation - Likely from intrinsic kidney disease # Thrombocytopenia - improving - PLT improved from yest - Vaginal bleeding likely normal menses, unlikely pathologic from low PLT - Continue to monitor PLT - Monitor for HIT (>50% drop), if so then stop Hep SQ # Transaminitis - Chronic - Hepatocellular pictures, less likely obstructive - Can f/u outpatient with imaging + autoimmune labs # Hx of Seizures - controlled - Continue in hospital (Keppra, Oxcarb, Topamax, Rectal Diazepam PRN) - Ativan PRN for new seizure - If pt presents with new seizures, consider Neuro consult # Hx of Spastic CP - Continue Baclofen # Hx of Constipation - Continue Senna and lactulose # FEN - Fluids: None - Electrolytes: Monitor - Nutrition: Continuous tube feeds with increased Free Water to 60cc/hr # Prophylaxis - DVT: Pt is high risk, Heparin SQ TID - GI: Not indicated # Dispo - Pt needs at least 1 more day of treatment w/ Zosyn - Assess Cr after increased free water through G tube Dr. Ekta Wan, PGY1 - Internal Medicine Visit type - Emergency Visit Emergency Visit: No - New Patient This patient is new to me today: No - Critical Care Critical Care patient: No
[2017-02-10] MEDS ORDERED: PT OWN MED DRAWER 7, Y5N ONE ×2 (08:48→22:16)
[2017-02-10 08:54] LABS: ALBUMIN 2.3 g/dl (3.4-5.0); ANION GAP 9 (8-16); BILIRUBIN,TOTAL 0.5 mg/dL (0.2-1.0); CALCIUM 9.3 mg/dL (8.5-10.1); CO2 21 mmol/L (21-32); CREATININE 3.1 mg/dL (0.55-1.02); GLUCOSE,RANDOM 84 mg/dL (74-106); SGOT/AST 44 U/L (15-37); SGPT/ALT 102 U/L (12-78); TOT PROT 6.3 g/dl (6.4-8.2)
[2017-02-10 08:55] LABS: ALK PHOS 281 U/L (45-117)
[2017-02-10] MEDS: POTASSIUM CHLORIDE ORAL LIQUID 20 MEQ/15 ML PEG SCH ×2 (09:29→14:24)
--- NOTE | 2017-02-10 15:45 | PN ---
Teaching Attending Note Name of Resident: Ekta Wan ATTENDING PHYSICIAN STATEMENT I saw and evaluated the patient. I reviewed the resident's note and discussed the case with the resident. I agree with the resident's findings and plan as documented. SUBJECTIVE: Patient is tachycardic, otherwise no acute distress, positive for coughing. OBJECTIVE: Vital Signs Temperature 99.6 F 02/10/17 14:00 Pulse Rate 129 H 02/10/17 14:00 Respiratory Rate 28 H 02/10/17 14:00 Blood Pressure 110/66 02/10/17 14:00 O2 Sat by Pulse Oximetry (%) 97 02/10/17 10:09 CBCD WBC 6.5 K/mm3 (4.0-10.0) 02/10/17 05:15 RBC 3.05 M/mm3 (3.60-5.2) L 02/10/17 05:15 Hgb 10.3 GM/dL (10.7-15.3) L 02/10/17 05:15 Hct 30.5 % (32.4-45.2) L 02/10/17 05:15 MCV 99.9 fl (80-96) H 02/10/17 05:15 MCHC 33.8 g/dl (32.0-36.0) 02/10/17 05:15 RDW 15.5 % (11.6-15.6) 02/10/17 05:15 Plt Count 103 K/MM3 (134-434) L 02/10/17 05:15 MPV 10.3 fl (7.5-11.1) 02/10/17 05:15 CMP Sodium 147 mmol/L (136-145) H 02/10/17 07:45 Potassium 5.7 mmol/L (3.5-5.1) H D 02/10/17 07:45 Chloride 117 mmol/L (98-107) H 02/10/17 07:45 Carbon Dioxide 21 mmol/L (21-32) 02/10/17 07:45 Anion Gap 9 (8-16) 02/10/17 07:45 BUN 52 mg/dL (7-18) H 02/10/17 07:45 Creatinine 3.1 mg/dL (0.55-1.02) H 02/10/17 07:45 Creat Clearance w eGFR 18.02 (>60) 02/10/17 07:45 Random Glucose 84 mg/dL (74-106) D 02/10/17 07:45 Calcium 9.3 mg/dL (8.5-10.1) 02/10/17 07:45 Total Bilirubin 0.5 mg/dL (0.2-1.0) 02/10/17 07:45 AST 44 U/L (15-37) H 02/10/17 07:45 ALT 102 U/L (12-78) H 02/10/17 07:45 Alkaline Phosphatase 281 U/L (45-117) H 02/10/17 07:45 Total Protein 6.3 g/dl (6.4-8.2) L 02/10/17 07:45 Albumin 2.3 g/dl (3.4-5.0) L 02/10/17 07:45 Current Medications Generic Name Dose Route Start Last Admin Trade Name Freq PRN Reason Stop Dose Admin Albuterol/Ipratropium 1 amp 02/10/17 00:00 02/10/17 11:37 Duoneb - NEB 1 amp QIDR [facility] Administration Baclofen 5 mg 02/09/17 22:00 02/10/17 14:30 Lioresal - GT 5 mg TID [facility] Administration Diazepam 10 mg 02/09/17 20:49 Diastat Rectal Gel - RC PRN PRN ANXIETY Heparin Sodium (Porcine) 5,000 unit 02/09/17 22:00 02/10/17 14:28 Heparin - SQ 5,000 unit TID [facility] Administration Piperacillin Sod/Tazobactam Sod 50 mls @ 100 mls/hr 02/10/17 02:00 02/10/17 09: 28 Zosyn 3.375gm Ivpb (Pre-Docked) IVPB 100 mls/hr Q8H-IV [facility] Administration Protocol Lactulose 10 gm 02/09/17 20:49 02/10/17 09:28 Cephulac (Oral Use) GT 10 gm TID PRN Administration CONSTIPATION Levetiracetam 1,500 mg 02/10/17 06:30 02/10/17 05:53 Keppra Oral Solution - GT 1,500 mg BID@0630,1830 [facility] Administration Oxcarbazepine 180 mg 02/10/17 06:30 02/10/17 05:44 Trileptal GT 5 ml DAILY@0630 [facility] Administration Oxcarbazepine 210 mg 02/10/17 19:00 Trileptal GT DAILY@1900 [facility] Potassium Chloride 40 meq 02/09/17 22:00 02/10/17 14:24 Potassium Chloride Oral Liquid PEG Not Given BID [facility] Scopolamine HBr 1 patch 02/12/17 01:00 Transderm-Scop - TD Q72H [facility] Topiramate 200 mg/ Topiramate 225 mg 02/10/17 06:00 02/10/17 05:43 25 mg GT 225 mg BID@18 [facility] Administration Home Medications Medication Instructions Recorded Albuterol 0.083% Nebulizer Sobeida 1 neb NEB PRN PRN 02/05/17 [Ventolin 0.083%] Baclofen 5 mg GT TID 02/05/17 Cholecalciferol (Vitamin D3) 2,000 unit GT DAILY 02/05/17 [Vitamin D3] Diazepam [Diastat Acudial] 10 mg RC PRN PRN 02/05/17 Ipratropium/Albuterol Sulfate 3 ml IH Q4HWA PRN 02/05/17 [Iprat-Albut 0.5-3(2.5) mg/3 ml] Lactulose 15 gm GT TID 02/05/17 Levetiracetam 1,500 mg GT BID 02/05/17 Multivit-Min/FA/Lycopen/Lutein 1 each PO DAILY 02/05/17 [Vitrum 50+ Senior Tablet] Nystatin Ointment [Mycostatin 1 applic TP PRN PRN 02/05/17 Ointment -] OXcarbazepine [Trileptal] 180 mg GT DAILY 02/05/17 OXcarbazepine [Trileptal] 210 mg GT HS 02/05/17 Topiramate 200 mg GT BID 02/05/17 Topiramate [Trokendi Xr] 25 mg GT BID 02/05/17 Heart: S1S2 positive, tachycardic ASSESSMENT AND PLAN: 26 y/o lady with h/o severe mental retardation ,cerebral palsy quadriplegia, recurrent PNAs , and seizure disorder who was sent from [place] with increased secretions and tachypnea. She was found to be septic with hypothermia # Acute Hyperkalemia 5.7, repeat was 7.0, stat Calcium gluconate, stat albuterol , insulin, d25,bicarb 1/2 and insulin iv 1/2 the dose decreased the tube feeding due to potassium in the feeding, will adjuat in am. Kayexalate 30gm now, repeat levels of potassium in 4 hrs. # Sepsis: likely due to aspiration PNA . On IV Antibiotic zosyn renally dosed and s/p Vanco # Aspiration Pneumonia on IV zosyn , ID on the case # ALEKSANDR:possible due to sepsis ; ATN from decreased perfusion (hypotension) vs just hypovolemia. Incerrease free fluid from the tube feeding from 100ml to 250ml q6 + 1 liter of free fluid, will repeat the levels in am, cre. 3.1 WILL FOLLOW, will repeat the level in am. # H/o Seizure:no recurrence of seizure , cont current meds # Chronic transaminitis : could be due to medicationsn vs underlying liver disease ( Autoimmune hepatitis, PSC, ...etc ) . hepatitis serology was neg last admission ;stable LFTS for now. complete w.u as out pt # Nutrition on Peg tube feeding and increased the free fluid water since dehydrated and elevated creatinine discussed with DVT Px: Heparin
--- NOTE | 2017-02-10 15:51 | PN ---
Progress Note (short form) - Note Progress Note: Patient seen and examined in the Telemetry unit. Breathing less labored today, but still mildly tachypneic. Saturation 97% on 2 L NC O2. No pressors. Noted increase in BUN/Creatinine CXR : No gross change -> I suspect difference in technique accounting for findings Intake & Output 02/07/17 02/08/17 02/09/17 02/10/17 23:59 23:59 23:59 23:59 Intake Total 1340 1062 2534 898 Output Total 1090 1300 1900 Balance 1340 -28 1234 -1002 Weight 113 lb 15.664 oz 118 lb 9.739 oz 117 lb 11.629 oz 118 lb 6.212 oz Last Vital Signs Temp Pulse Resp BP Pulse Ox 99.6 F 129 H 28 H 110/66 97 02/10/17 14:00 02/10/17 14:00 02/10/17 14:00 02/10/17 14:00 02/10/17 10:09 Active Medications Albuterol/Ipratropium (Duoneb -) 1 amp NEB QIDR [facility] Last Admin: 02/10/17 11:37 Dose: 1 amp Baclofen (Lioresal -) 5 mg GT TID [facility] Last Admin: 02/10/17 14:30 Dose: 5 mg Diazepam (Diastat Rectal Gel -) 10 mg RC PRN PRN PRN Reason: ANXIETY Heparin Sodium (Porcine) (Heparin -) 5,000 unit SQ TID [facility] Last Admin: 02/10/17 14:28 Dose: 5,000 unit Piperacillin Sod/Tazobactam Sod (Zosyn 3.375gm Ivpb (Pre-Docked)) 50 mls @ 100 mls/hr IVPB Q8H-IV [facility] PRN Reason: Protocol Last Admin: 02/10/17 09:28 Dose: 100 mls/hr Lactulose (Cephulac (Oral Use)) 10 gm GT TID PRN PRN Reason: CONSTIPATION Last Admin: 02/10/17 09:28 Dose: 10 gm Levetiracetam (Keppra Oral Solution -) 1,500 mg GT BID@0630,1830 [facility] Last Admin: 02/10/17 05:53 Dose: 1,500 mg Oxcarbazepine (Trileptal) 180 mg GT DAILY@0630 [facility] Last Admin: 02/10/17 05:44 Dose: 5 ml Oxcarbazepine (Trileptal) 210 mg GT DAILY@1900 [facility] Potassium Chloride (Potassium Chloride Oral Liquid) 40 meq PEG BID [facility] Last Admin: 02/10/17 14:24 Dose: Not Given Scopolamine HBr (Transderm-Scop -) 1 patch TD Q72H [facility] Topiramate 200 mg/ Topiramate (25 mg) 225 mg GT BID@,18 [facility] Last Admin: 02/10/17 05:43 Dose: 225 mg Constitutional: Yes: Less tachypneic on NC O2 Eyes: Yes: WNL HENT: Yes: Drooling Neck: Yes: Decreased ROM Cardiovascular: Yes: Tachycardia, S1, S2 Respiratory: Yes: Basilar rhonchi Gastrointestinal: Yes: Soft Musculoskeletal: Yes: Other (contracted) Extremities: Yes: Cool, Other (contracted) Edema: No Peripheral Pulses WNL: Yes Neurological: Yes: poorly responsive Laboratory Results - last 24 hr 02/09/17 02/09/17 02/09/17 18:45 18:45 18:45 WBC RBC Hgb Hct MCV MCH MCHC RDW Plt Count MPV Sodium Potassium Chloride Carbon Dioxide Anion Gap BUN Creatinine Creat Clearance w eGFR Random Glucose Calcium Phosphorus Magnesium Total Bilirubin AST ALT Alkaline Phosphatase Total Protein Albumin Urine Color Straw Urine Appearance Slcloudy Urine pH 5.0 Ur Specific [place] <= 1.005 Urine Protein Negative Urine Glucose (UA) Negative Urine Ketones Negative Urine Blood 2+ H Urine Nitrite Negative Urine Bilirubin Negative Urine Urobilinogen Negative Ur Leukocyte Esterase Negative Urine RBC 45 Urine WBC 5 Hyaline Casts 1 Urine Mucus Rare Urine Osmolality 259 L Ur Random Sodium 73 Ur Random Potassium 18.2 Ur Random Chloride 74 02/10/17 02/10/17 05:15 07:45 WBC 6.5 RBC 3.05 L Hgb 10.3 L Hct 30.5 L MCV 99.9 H MCH 33.8 H MCHC 33.8 RDW 15.5 Plt Count 103 L MPV 10.3 Sodium 147 H Potassium 5.7 H D Chloride 117 H Carbon Dioxide 21 Anion Gap 9 BUN 52 H Creatinine 3.1 H Creat Clearance w eGFR 18.02 Random Glucose 84 D Calcium 9.3 Phosphorus 7.0 H D Magnesium 3.0 H Total Bilirubin 0.5 AST 44 H ALT 102 H Alkaline Phosphatase 281 H Total Protein 6.3 L Albumin 2.3 L Urine Color Urine Appearance Urine pH Ur Specific [place] Urine Protein Urine Glucose (UA) Urine Ketones Urine Blood Urine Nitrite Urine Bilirubin Urine Urobilinogen Ur Leukocyte Esterase Urine RBC Urine WBC Hyaline Casts Urine Mucus Urine Osmolality Ur Random Sodium Ur Random Potassium Ur Random Chloride Problem List - Problems (1) Pneumonia Code(s): J18.9 - PNEUMONIA, UNSPECIFIED ORGANISM Qualifiers: Pneumonia type: due to unspecified organism Laterality: unspecified laterality Lung location: unspecified part of lung Qualified Code(s): J18.9 - Pneumonia, unspecified organism (2) Acute respiratory failure with hypoxia Code(s): J96.01 - ACUTE RESPIRATORY FAILURE WITH HYPOXIA (3) Cerebral palsy Code(s): G80.9 - CEREBRAL PALSY, UNSPECIFIED (4) Functional quadriplegia Code(s): R53.2 - FUNCTIONAL QUADRIPLEGIA (5) Mental retardation Code(s): F79 - UNSPECIFIED INTELLECTUAL DISABILITIES (6) Seizure disorder Code(s): G40.909 - EPILEPSY, UNSP, NOT INTRACTABLE, WITHOUT STATUS EPILEPTICUS Assessment/Plan Sepsis due to PNA CP Functional quadriplegia Seizures Severe developmental delay Hypoxemia Pulmonary Vascular Congestion (?) ARDS physiology -Daily assessment for Lasix need --> Hold today as good output noted -O2 to maintain saturation -Aspiration precautions -ABX coverage -Minimize IVF -VTE prophylaxis Dr Ruffin
--- NOTE | 2017-02-10 16:00 | PN ---
Progress Note, Physician History of Present Illness: Pt seen and examined at bedside. She remains in the ICU. - Current Medication List Current Medications: Active Medications Albuterol/Ipratropium (Duoneb -) 1 amp NEB QIDR [facility] Last Admin: 02/10/17 11:37 Dose: 1 amp Baclofen (Lioresal -) 5 mg GT TID [facility] Last Admin: 02/10/17 14:30 Dose: 5 mg Diazepam (Diastat Rectal Gel -) 10 mg RC PRN PRN PRN Reason: ANXIETY Heparin Sodium (Porcine) (Heparin -) 5,000 unit SQ TID [facility] Last Admin: 02/10/17 14:28 Dose: 5,000 unit Piperacillin Sod/Tazobactam Sod (Zosyn 3.375gm Ivpb (Pre-Docked)) 50 mls @ 100 mls/hr IVPB Q8H-IV [facility] PRN Reason: Protocol Last Admin: 02/10/17 09:28 Dose: 100 mls/hr Lactulose (Cephulac (Oral Use)) 10 gm GT TID PRN PRN Reason: CONSTIPATION Last Admin: 02/10/17 09:28 Dose: 10 gm Levetiracetam (Keppra Oral Solution -) 1,500 mg GT BID@0630,1830 [facility] Last Admin: 02/10/17 05:53 Dose: 1,500 mg Oxcarbazepine (Trileptal) 180 mg GT DAILY@0630 [facility] Last Admin: 02/10/17 05:44 Dose: 5 ml Oxcarbazepine (Trileptal) 210 mg GT DAILY@1900 [facility] Potassium Chloride (Potassium Chloride Oral Liquid) 40 meq PEG BID [facility] Last Admin: 02/10/17 14:24 Dose: Not Given Scopolamine HBr (Transderm-Scop -) 1 patch TD Q72H [facility] Topiramate 200 mg/ Topiramate (25 mg) 225 mg GT BID@,18 [facility] Last Admin: 02/10/17 05:43 Dose: 225 mg - Objective Vital Signs: Vital Signs Temperature 99.6 F 02/10/17 14:00 Pulse Rate 129 H 02/10/17 14:00 Respiratory Rate 28 H 02/10/17 14:00 Blood Pressure 110/66 02/10/17 14:00 O2 Sat by Pulse Oximetry (%) 97 02/10/17 10:09 Constitutional: Yes: Calm Cardiovascular: Yes: S1, S2 Respiratory: Yes: On Venti-Mask, Rhonchi Gastrointestinal: Yes: Soft Genitourinary: Yes: Brown Present Musculoskeletal: Yes: Muscle Weakness Edema: Yes Edema: LLE: Trace, RLE: Trace Neurological: Yes: Lethargy, Pre-Existing Deficit Labs: CBC, BMP 02/10/17 05:15 Problem List - Problems (1) Pneumonia Code(s): J18.9 - PNEUMONIA, UNSPECIFIED ORGANISM Qualifiers: Qualified Code(s): J18.9 - Pneumonia, unspecified organism (2) Acute respiratory failure with hypoxia Code(s): J96.01 - ACUTE RESPIRATORY FAILURE WITH HYPOXIA (3) ALEKSANDR (acute kidney injury) Code(s): N17.9 - ACUTE KIDNEY FAILURE, UNSPECIFIED Assessment/Plan Current Medications Generic Name Dose Route Start Last Admin Trade Name Freq PRN Reason Stop Dose Admin Albuterol/Ipratropium 1 amp 02/10/17 00:00 02/10/17 11:37 Duoneb - NEB 1 amp QIDR [facility] Administration Baclofen 5 mg 02/09/17 22:00 02/10/17 14:30 Lioresal - GT 5 mg TID [facility] Administration Diazepam 10 mg 02/09/17 20:49 Diastat Rectal Gel - RC PRN PRN ANXIETY Heparin Sodium (Porcine) 5,000 unit 02/09/17 22:00 02/10/17 14:28 Heparin - SQ 5,000 unit TID [facility] Administration Piperacillin Sod/Tazobactam Sod 50 mls @ 100 mls/hr 02/10/17 02:00 02/10/17 09: 28 Zosyn 3.375gm Ivpb (Pre-Docked) IVPB 100 mls/hr Q8H-IV [facility] Administration Protocol Lactulose 10 gm 02/09/17 20:49 02/10/17 09:28 Cephulac (Oral Use) GT 10 gm TID PRN Administration CONSTIPATION Levetiracetam 1,500 mg 02/10/17 06:30 02/10/17 05:53 Keppra Oral Solution - GT 1,500 mg BID@0630,1830 [facility] Administration Oxcarbazepine 180 mg 02/10/17 06:30 02/10/17 05:44 Trileptal GT 5 ml DAILY@0630 [facility] Administration Oxcarbazepine 210 mg 02/10/17 19:00 Trileptal GT DAILY@1900 [facility] Potassium Chloride 40 meq 02/09/17 22:00 02/10/17 14:24 Potassium Chloride Oral Liquid PEG Not Given BID [facility] Scopolamine HBr 1 patch 02/12/17 01:00 Transderm-Scop - TD Q72H [facility] Topiramate 200 mg/ Topiramate 225 mg 02/10/17 06:00 02/10/17 05:43 25 mg GT 225 mg BID@06,18 [facility] Administration Laboratory Tests 02/08/17 17:15 c-ANCA Pending Proteinase 3 (PR3) Pending p-ANCA Pending Atypical p-ANCA Pending Myeloperoxidase Ab Pending Glomerular Base Memb Ab Pending Impression 1. ALEKSANDR 2. sepsis 3. pna 4. severe developmental delay 5. epilepsy 6. venous congestion Plan - follow up repeat potassium level - stop potassium supplements - repeat bmp in am - monitor urine output - renal workup in progress - keep brown in place - cont abx - will follow Dr Cesar
[2017-02-10] MEDS ORDERED: INSULIN REGULAR HUMAN 100 UNITS/ML *VIAL IVPUSH ONE (16:10)
[2017-02-10] MEDS ORDERED: CALCIUM GLUBIONATE PO ONE (16:10)
[2017-02-10] MEDS ORDERED: SODIUM POLYSTYRENE SULFONATE 15 GM/60 ML BOTTLE PO ONE (16:10)
[2017-02-10] MEDS ORDERED: SODIUM BICARBONATE 4.2% 5 MEQ/10 ML DISP.SYRIN IVPUSH ONE (16:11)
[2017-02-10] MEDS ORDERED: DEXTROSE 50%-WATER - 25 GM/50 ML VIAL IVPUSH ONE (16:12)
[2017-02-10] MEDS ORDERED: SODIUM POLYSTYRENE SULFONATE 15 GM/60 ML BOTTLE ONE (16:12)
[2017-02-10] MEDS ORDERED: CALCIUM GLUCONATE 10% - 1,000 MG/10 ML VIAL ONE (16:13)
[2017-02-10] MEDS ORDERED: CALCIUM GLUCONATE 10% - 1,000 MG/10 ML VIAL IVPUSH ONE (16:20)
[2017-02-10] MEDS ORDERED: SODIUM BICARBONATE 8.4% 50 MEQ/50 ML VIAL IVPUSH ONE (17:00)
--- NOTE | 2017-02-10 17:45 | PN ---
Progress Note, Physician History of Present Illness: stable still with lethargy on nasal canula breathing better much calmer - Current Medication List Current Medications: Active Medications Albuterol/Ipratropium (Duoneb -) 1 amp NEB QIDR [facility] Last Admin: 02/10/17 17:23 Dose: 1 amp Baclofen (Lioresal -) 5 mg GT TID [facility] Last Admin: 02/10/17 14:30 Dose: 5 mg Diazepam (Diastat Rectal Gel -) 10 mg RC PRN PRN PRN Reason: ANXIETY Heparin Sodium (Porcine) (Heparin -) 5,000 unit SQ TID [facility] Last Admin: 02/10/17 14:28 Dose: 5,000 unit Piperacillin Sod/Tazobactam Sod (Zosyn 3.375gm Ivpb (Pre-Docked)) 50 mls @ 100 mls/hr IVPB Q8H-IV [facility] PRN Reason: Protocol Last Admin: 02/10/17 09:28 Dose: 100 mls/hr Lactulose (Cephulac (Oral Use)) 10 gm GT TID PRN PRN Reason: CONSTIPATION Last Admin: 02/10/17 09:28 Dose: 10 gm Levetiracetam (Keppra Oral Solution -) 1,500 mg GT BID@0630,1830 [facility] Last Admin: 02/10/17 05:53 Dose: 1,500 mg Oxcarbazepine (Trileptal) 180 mg GT DAILY@0630 [facility] Last Admin: 02/10/17 05:44 Dose: 5 ml Oxcarbazepine (Trileptal) 210 mg GT DAILY@1900 [facility] Scopolamine HBr (Transderm-Scop -) 1 patch TD Q72H [facility] Topiramate 200 mg/ Topiramate (25 mg) 225 mg GT BID@06,18 [facility] Last Admin: 02/10/17 05:43 Dose: 225 mg - Objective Vital Signs: Vital Signs Temperature 99.6 F 02/10/17 14:00 Pulse Rate 129 H 02/10/17 14:00 Respiratory Rate 28 H 02/10/17 14:00 Blood Pressure 110/66 02/10/17 14:00 O2 Sat by Pulse Oximetry (%) 97 02/10/17 10:09 Constitutional: Yes: No Distress, Calm Cardiovascular: Yes: Regular Rate and Rhythm Respiratory: Yes: On Nasal O2, Poor Air Entry, Rhonchi Gastrointestinal: Yes: Normal Bowel Sounds, Soft, Other (peg in place) Musculoskeletal: Yes: WNL Extremities: Yes: Other Neurological: Yes: Other Psychiatric: Yes: Other Labs: CBC, BMP 02/10/17 05:15 02/10/17 15:15 Assessment/Plan Problem List - Problems (1) Pneumonia Code(s): J18.9 - PNEUMONIA, UNSPECIFIED ORGANISM Qualifiers: Pneumonia type: due to unspecified organism Laterality: unspecified laterality Lung location: unspecified part of lung Qualified Code(s): J18.9 - Pneumonia, unspecified organism (2) Acute respiratory failure with hypoxia Code(s): J96.01 - ACUTE RESPIRATORY FAILURE WITH HYPOXIA (3) Cerebral palsy Code(s): G80.9 - CEREBRAL PALSY, UNSPECIFIED (4) Functional quadriplegia Code(s): R53.2 - FUNCTIONAL QUADRIPLEGIA (5) Mental retardation Code(s): F79 - UNSPECIFIED INTELLECTUAL DISABILITIES (6) Seizure disorder Code(s): G40.909 - EPILEPSY, UNSP, NOT INTRACTABLE, WITHOUT STATUS EPILEPTICUS patient s renal function has detoriated wi plan continue current mgmt continue zosyn will soon deescalate suctioning nutrition rest as per primary
[2017-02-10 22:46] LABS: ANION GAP 9 (8-16); CALCIUM 9.1 mg/dL (8.5-10.1); CO2 23 mmol/L (21-32); GLUCOSE,RANDOM 116 mg/dL (74-106)
[2017-02-11] MEDS: PIPERACILLIN/TAZOB 3.375 GM 50 ML IVPB SCH ×3 (02:23→18:34)
[2017-02-11] MEDS: ALBUTEROL SO4 2.5/IPRATROPIUM 0.5 INH SOL 3 ML VIAL.NEB. NEB SCH ×4 (05:32→23:05)
[2017-02-11] MEDS ORDERED: PT OWN MED DRAWER 7, Y5N ONE ×2 (05:52→22:37)
[2017-02-11] MEDS: BACLOFEN 10 MG TABLET (FP) GT SCH ×3 (05:54→22:46)
[2017-02-11] MEDS: HEPARIN NA (PORCINE) 5,000 UNITS/ML 1ML VIAL SQ SCH ×3 (05:54→22:45)
[2017-02-11] MEDS: TOPIRAMATE GT SCH ×2 (05:55→18:37)
[2017-02-11] MEDS: levETIRAcetam 500 MG/5 ML ORAL SOLUTION (UNIT-DOSE CUPS) GT SCH ×2 (05:55→18:34)
[2017-02-11] MEDS: OXcarbazepine 300 MG/5 ML 250 ML BULK BOTTLE GT SCH ×2 (05:55→18:37)
--- NOTE | 2017-02-11 06:57 | PN ---
Physical Exam: SUBJECTIVE: Patient seen and examined this AM. Pt did not have bowel movement yet, repeat K+ has decreased. Pt HR has decreased, RR has stabilized. OBJECTIVE: Vital Signs Period Temp Pulse Resp BP Sys/Herman Pulse Ox Last 24 Hr 94.2 F-99.6 F 75-129 20-35 90-110/54-73 97-100 GEN: Pt sleeping, comfortable not coughing HEENT: PERRLA, no cervical LAD CV: S1, S2, RRR, no murmur appreciated LUNG: Lungs are clearing anteriorly ABD: Soft, ND, pt has G tube, hypoactive BS, but having regular BMs MSK: 2+ pulses, well perfused, no edema NEURO: Exam limited. PERRLA, no facial droop. Laboratory Results - last 24 hr 02/08/17 02/10/17 02/10/17 17:15 05:15 07:45 WBC 6.5 RBC 3.05 L Hgb 10.3 L Hct 30.5 L MCV 99.9 H MCH 33.8 H MCHC 33.8 RDW 15.5 Plt Count 103 L MPV 10.3 Sodium 147 H Potassium 5.7 H D Chloride 117 H Carbon Dioxide 21 Anion Gap 9 BUN 52 H Creatinine 3.1 H Creat Clearance w eGFR 18.02 Random Glucose 84 D Calcium 9.3 Phosphorus 7.0 H D Magnesium 3.0 H Total Bilirubin 0.5 AST 44 H ALT 102 H Alkaline Phosphatase 281 H Total Protein 6.3 L Albumin 2.3 L Urine Eosinophils None seen 02/10/17 02/10/17 15:15 21:30 WBC RBC Hgb Hct MCV MCH MCHC RDW Plt Count MPV Sodium 155 H Potassium 7.0 H* D 5.2 H D Chloride 123 H Carbon Dioxide 23 Anion Gap 9 BUN 50 H Creatinine 3.0 H Creat Clearance w eGFR Random Glucose 116 H D Calcium 9.1 Phosphorus Magnesium Total Bilirubin AST ALT Alkaline Phosphatase Total Protein Albumin Urine Eosinophils Active Medications Generic Name Dose Route Start Last Admin Trade Name Freq PRN Reason Stop Dose Admin Albuterol/Ipratropium 1 amp 02/10/17 00:00 02/10/17 23:16 Duoneb - NEB 1 amp QIDR [facility] Administration Baclofen 5 mg 02/09/17 22:00 02/11/17 05:54 Lioresal - GT 5 mg TID [facility] Administration Diazepam 10 mg 02/09/17 20:49 Diastat Rectal Gel - RC PRN PRN ANXIETY Heparin Sodium (Porcine) 5,000 unit 02/09/17 22:00 02/11/17 05:54 Heparin - SQ 5,000 unit TID [facility] Administration Piperacillin Sod/Tazobactam Sod 50 mls @ 100 mls/hr 02/10/17 02:00 02/11/17 02: 23 Zosyn 3.375gm Ivpb (Pre-Docked) IVPB 100 mls/hr Q8H-IV [facility] Administration Protocol Lactulose 10 gm 02/09/17 20:49 02/10/17 09:28 Cephulac (Oral Use) GT 10 gm TID PRN Administration CONSTIPATION Levetiracetam 1,500 mg 02/10/17 06:30 02/11/17 05:55 Keppra Oral Solution - GT 1,500 mg BID@0630,1830 [facility] Administration Oxcarbazepine 180 mg 02/10/17 06:30 02/11/17 05:55 Trileptal GT 180 ml DAILY@0630 [facility] Administration Oxcarbazepine 210 mg 02/10/17 19:00 02/10/17 19:05 Trileptal GT 210 mg DAILY@1900 [facility] Administration Scopolamine HBr 1 patch 02/12/17 01:00 Transderm-Scop - TD Q72H [facility] Topiramate 200 mg/ Topiramate 225 mg 02/10/17 06:00 02/11/17 05:55 25 mg GT 225 mg BID@06,18 [facility] Administration ASSESSMENT/PLAN: Pt is a 26yo F from [place] with severe MR, CP, spastic quadriplegia, seizure dz, with recurrent PNAs who presented with sepsis. # Sepsis likely 2/2 PNA - resolving - Aspiration vs HCAP - CXR and clinical status improved - F/u sputum cx -Pseudomonas + Serratia, sensitive to Zosyn - Day 6 of Zosyn 3.375mg IV Q6 (started Feb 05) - Duonebs - Scopolamine patch # ALEKSANDR - stable - FeUrea >48.7% suggests intrinsic renal disease, possible ATN - Nephrology reccs increasing Free water through NGT 60cc/hr --> 75cc/hr - Renal/Bladder ultrasound shows no obstruction - F/u Anca, AntiGBM # Hyperkalemia - Improving, now normal level - Discontinued K+ through G tube - Repeat BMP in the AM # Tachypnea - resolving - RR in the 20s now, improved - Latest ABG shows no CO2 retention # NAG Metabolic Acidosis - Recent ABG shows met acidosis with resp compensation - Likely from intrinsic kidney disease # Thrombocytopenia - improving - PLT improved from yest - Vaginal bleeding likely normal menses, unlikely pathologic from low PLT - Continue to monitor PLT - Monitor for HIT (>50% drop), if so then stop Hep SQ # Transaminitis - Chronic - Hepatocellular pictures, less likely obstructive - Can f/u outpatient with imaging + autoimmune labs # Hx of Seizures - controlled - Continue in hospital (Keppra, Oxcarb, Topamax, Rectal Diazepam PRN) - Ativan PRN for new seizure - If pt presents with new seizures, consider Neuro consult # Hx of Spastic CP - Continue Baclofen # Hx of Constipation - Continue Senna and lactulose # FEN - Fluids: None - Electrolytes: Monitor - Nutrition: Continuous tube feeds with increased Free Water to 60cc/hr # Prophylaxis - DVT: Pt is high risk, Heparin SQ TID - GI: Not indicated # Dispo - Pt needs at least 1 more day of treatment w/ Zosyn - Assess Cr after increased free water through G tube Dr. Ekta Wan, PGY1 - Internal Medicine Visit type - Emergency Visit Emergency Visit: No - New Patient This patient is new to me today: No - Critical Care Critical Care patient: No
[2017-02-11 08:00] LABS: MCHC 33.3 g/dl (32.0-36.0); MEAN CELL VOLUME 99.3 fl (80-96); MEAN PLT VOLUME 9.4 fl (7.5-11.1); PLATELET COUNT 93 K/MM3 (134-434); RDW 15.3 % (11.6-15.6); WHITE BLOOD COUNT 5.6 K/mm3 (4.0-10.0)
[2017-02-11 09:42] LABS: ANION GAP 11 (8-16); CALCIUM 8.6 mg/dL (8.5-10.1); CO2 21 mmol/L (21-32); CREATININE 2.8 mg/dL (0.55-1.02); GLUCOSE,RANDOM 97 mg/dL (74-106)
--- NOTE | 2017-02-11 10:26 | EKG ---
Test Reason : Blood Pressure : / mmHG Vent. Rate : 123 BPM Atrial Rate : 123 BPM P-R Int : 156 ms QRS Dur : 094 ms QT Int : 302 ms P-R-T Axes : 023 057 039 degrees QTc Int : 432 ms SINUS TACHYCARDIA NON-SPECIFIC INTRA-VENTRICULAR CONDUCTION DELAY Confirmed by MATTHEW DIMAS MD [id number]) on 02/11/2017 10:26:12 AM Referred By: DAXA RUSSELL Confirmed By:MATTHEW DIAMS MD
--- NOTE | 2017-02-11 11:31 | PN ---
Teaching Attending Note Name of Resident: Ekta Wan ATTENDING PHYSICIAN STATEMENT I saw and evaluated the patient. I reviewed the resident's note and discussed the case with the resident. I agree with the resident's findings and plan as documented. SUBJECTIVE: Patient is doing better. No fever or chills. OBJECTIVE: Vital Signs Temperature 98.0 F 02/11/17 06:00 Pulse Rate 103 H 02/11/17 06:00 Respiratory Rate 22 02/11/17 06:00 Blood Pressure 108/72 02/11/17 06:00 O2 Sat by Pulse Oximetry (%) 100 02/10/17 21:00 CBCD WBC 5.6 K/mm3 (4.0-10.0) 02/11/17 07:30 RBC 2.69 M/mm3 (3.60-5.2) L 02/11/17 07:30 Hgb 8.9 GM/dL (10.7-15.3) L D 02/11/17 07:30 Hct 26.7 % (32.4-45.2) L 02/11/17 07:30 MCV 99.3 fl (80-96) H 02/11/17 07:30 MCHC 33.3 g/dl (32.0-36.0) 02/11/17 07:30 RDW 15.3 % (11.6-15.6) 02/11/17 07:30 Plt Count 93 K/MM3 (134-434) L 02/11/17 07:30 MPV 9.4 fl (7.5-11.1) 02/11/17 07:30 CMP Sodium 153 mmol/L (136-145) H 02/11/17 07:30 Potassium 4.1 mmol/L (3.5-5.1) D 02/11/17 07:30 Chloride 121 mmol/L (98-107) H 02/11/17 07:30 Carbon Dioxide 21 mmol/L (21-32) 02/11/17 07:30 Anion Gap 11 (8-16) 02/11/17 07:30 BUN 50 mg/dL (7-18) H 02/11/17 07:30 Creatinine 2.8 mg/dL (0.55-1.02) H 02/11/17 07:30 Creat Clearance w eGFR 18.02 (>60) 02/10/17 07:45 Random Glucose 97 mg/dL (74-106) 02/11/17 07:30 Calcium 8.6 mg/dL (8.5-10.1) 02/11/17 07:30 Total Bilirubin 0.5 mg/dL (0.2-1.0) 02/10/17 07:45 AST 44 U/L (15-37) H 02/10/17 07:45 ALT 102 U/L (12-78) H 02/10/17 07:45 Alkaline Phosphatase 281 U/L (45-117) H 02/10/17 07:45 Total Protein 6.3 g/dl (6.4-8.2) L 02/10/17 07:45 Albumin 2.3 g/dl (3.4-5.0) L 02/10/17 07:45 Current Medications Generic Name Dose Route Start Last Admin Trade Name Freq PRN Reason Stop Dose Admin Albuterol/Ipratropium 1 amp 02/10/17 00:00 02/11/17 05:32 Duoneb - NEB 1 amp QIDR [facility] Administration Baclofen 5 mg 02/09/17 22:00 02/11/17 05:54 Lioresal - GT 5 mg TID [facility] Administration Diazepam 10 mg 02/09/17 20:49 Diastat Rectal Gel - RC PRN PRN ANXIETY Heparin Sodium (Porcine) 5,000 unit 02/09/17 22:00 02/11/17 05:54 Heparin - SQ 5,000 unit TID [facility] Administration Piperacillin Sod/Tazobactam Sod 50 mls @ 100 mls/hr 02/10/17 02:00 02/11/17 11: 03 Zosyn 3.375gm Ivpb (Pre-Docked) IVPB 100 mls/hr Q8H-IV [facility] Administration Protocol Lactulose 10 gm 02/09/17 20:49 02/10/17 09:28 Cephulac (Oral Use) GT 10 gm TID PRN Administration CONSTIPATION Levetiracetam 1,500 mg 02/10/17 06:30 02/11/17 05:55 Keppra Oral Solution - GT 1,500 mg BID@0630,1830 [facility] Administration Oxcarbazepine 180 mg 02/10/17 06:30 02/11/17 05:55 Trileptal GT 180 ml DAILY@0630 [facility] Administration Oxcarbazepine 210 mg 02/10/17 19:00 02/10/17 19:05 Trileptal GT 210 mg DAILY@1900 [facility] Administration Scopolamine HBr 1 patch 02/12/17 01:00 Transderm-Scop - TD Q72H [facility] Topiramate 200 mg/ Topiramate 225 mg 02/10/17 06:00 02/11/17 05:55 25 mg GT 225 mg BID@ [facility] Administration Home Medications Medication Instructions Recorded Albuterol 0.083% Nebulizer Sobeida 1 neb NEB PRN PRN 02/05/17 [Ventolin 0.083%] Baclofen 5 mg GT TID 02/05/17 Cholecalciferol (Vitamin D3) 2,000 unit GT DAILY 02/05/17 [Vitamin D3] Diazepam [Diastat Acudial] 10 mg RC PRN PRN 02/05/17 Ipratropium/Albuterol Sulfate 3 ml IH Q4HWA PRN 02/05/17 [Iprat-Albut 0.5-3(2.5) mg/3 ml] Lactulose 15 gm GT TID 02/05/17 Levetiracetam 1,500 mg GT BID 02/05/17 Multivit-Min/FA/Lycopen/Lutein 1 each PO DAILY 02/05/17 [Vitrum 50+ Senior Tablet] Nystatin Ointment [Mycostatin 1 applic TP PRN PRN 02/05/17 Ointment -] OXcarbazepine [Trileptal] 180 mg GT DAILY 02/05/17 OXcarbazepine [Trileptal] 210 mg GT HS 02/05/17 Topiramate 200 mg GT BID 02/05/17 Topiramate [Trokendi Xr] 25 mg GT BID 02/05/17 Laboratory Tests 02/08/17 02/09/17 02/10/17 08:15 08:00 07:45 AST 61 H D 54 H 44 H ALT 109 H 108 H 102 H Alkaline Phosphatase 251 H 265 H 281 H Total Protein 6.3 L Heart: S1S2 positive, tachycardic ASSESSMENT AND PLAN: 26 y/o lady with h/o severe mental retardation ,cerebral palsy quadriplegia, recurrent PNAs , and seizure disorder who was sent from [place] with increased secretions and tachypnea. She was found to be septic with hypothermia # Acute Hyperkalemia 5.7, repeat was 7.0, stat Calcium gluconate, stat albuterol , insulin, d25,bicarb 1/2 and insulin iv 1/2 the dose decreased the tube feeding due to potassium in the feeding, will adjuat in am. Kayexalate 30gm now, repeat levels of potassium in 4 hrs. # Sepsis: likely due to aspiration PNA . On IV Antibiotic zosyn renally dosed and s/p Vanco # Aspiration Pneumonia on IV zosyn , ID on the case # ALEKSANDR:possible due to sepsis ; ATN from decreased perfusion (hypotension) vs just hypovolemia. Incerrease free fluid from the tube feeding from 100ml to 250ml q6 + 1 liter of free fluid, will repeat the levels in am, cre. 3.1 WILL FOLLOW, will repeat the level in am. # H/o Seizure:no recurrence of seizure , cont current meds # Chronic transaminitis improving : could be due to medications vs underlying liver disease ( Autoimmune hepatitis, PSC, ...etc ) . hepatitis serology was neg last admission ;stable LFTS for now. complete w.u as out pt # Nutrition on Peg tube feeding and increased the free fluid water since dehydrated and elevated creatinine discussed with DVT Px: Heparin
--- NOTE | 2017-02-11 12:11 | PN ---
Progress Note (short form) - Note Progress Note: PULMONARY Somnolent, no fevers recorded. Last Vital Signs Temp Pulse Resp BP Pulse Ox 98.0 F 103 H 22 108/72 100 02/11/17 06:00 02/11/17 06:00 02/11/17 06:00 02/11/17 06:00 02/10/17 21:00 Gen: breathing nonlabored Heart: tachycardic, regular Lung: scattered rhonchi Abd: soft, nontender Ext: +edema CBC, BMP 02/11/17 07:30 02/11/17 07:30 Active Medications Albuterol/Ipratropium (Duoneb -) 1 amp NEB QIDR [facility] Last Admin: 02/11/17 11:52 Dose: 1 amp Baclofen (Lioresal -) 5 mg GT TID [facility] Last Admin: 02/11/17 05:54 Dose: 5 mg Diazepam (Diastat Rectal Gel -) 10 mg RC PRN PRN PRN Reason: ANXIETY Heparin Sodium (Porcine) (Heparin -) 5,000 unit SQ TID [facility] Last Admin: 02/11/17 05:54 Dose: 5,000 unit Piperacillin Sod/Tazobactam Sod (Zosyn 3.375gm Ivpb (Pre-Docked)) 50 mls @ 100 mls/hr IVPB Q8H-IV [facility] PRN Reason: Protocol Last Admin: 02/11/17 11:03 Dose: 100 mls/hr Lactulose (Cephulac (Oral Use)) 10 gm GT TID PRN PRN Reason: CONSTIPATION Last Admin: 02/10/17 09:28 Dose: 10 gm Levetiracetam (Keppra Oral Solution -) 1,500 mg GT BID@0630,1830 [facility] Last Admin: 02/11/17 05:55 Dose: 1,500 mg Oxcarbazepine (Trileptal) 180 mg GT DAILY@0630 [facility] Last Admin: 02/11/17 05:55 Dose: 180 ml Oxcarbazepine (Trileptal) 210 mg GT DAILY@1900 [facility] Last Admin: 02/10/17 19:05 Dose: 210 mg Scopolamine HBr (Transderm-Scop -) 1 patch TD Q72H [facility] Topiramate 200 mg/ Topiramate (25 mg) 225 mg GT BID@ [facility] Last Admin: 02/11/17 05:55 Dose: 225 mg A/P Pneumonia Sepsis Acute Kidney Injury Mental Retardation Seizure Disorder - continue antibiotics - monitor urine output, creatinine - aspiration precautions - O2 to keep SpO2 >90% - DVT prophylaxis
--- NOTE | 2017-02-11 16:03 | PN ---
Progress Note, Physician History of Present Illness: Pt seen and examined at bedside. She is now in the medical zhang. Her potassium is improved. - Current Medication List Current Medications: Active Medications Albuterol/Ipratropium (Duoneb -) 1 amp NEB QIDR [facility] Last Admin: 02/11/17 11:52 Dose: 1 amp Baclofen (Lioresal -) 5 mg GT TID [facility] Last Admin: 02/11/17 15:15 Dose: 5 mg Diazepam (Diastat Rectal Gel -) 10 mg RC PRN PRN PRN Reason: ANXIETY Heparin Sodium (Porcine) (Heparin -) 5,000 unit SQ TID [facility] Last Admin: 02/11/17 14:45 Dose: 5,000 unit Piperacillin Sod/Tazobactam Sod (Zosyn 3.375gm Ivpb (Pre-Docked)) 50 mls @ 100 mls/hr IVPB Q8H-IV [facility] PRN Reason: Protocol Last Admin: 02/11/17 11:03 Dose: 100 mls/hr Lactulose (Cephulac (Oral Use)) 10 gm GT TID PRN PRN Reason: CONSTIPATION Last Admin: 02/10/17 09:28 Dose: 10 gm Levetiracetam (Keppra Oral Solution -) 1,500 mg GT BID@0630,1830 [facility] Last Admin: 02/11/17 05:55 Dose: 1,500 mg Oxcarbazepine (Trileptal) 180 mg GT DAILY@0630 [facility] Last Admin: 02/11/17 05:55 Dose: 180 ml Oxcarbazepine (Trileptal) 210 mg GT DAILY@1900 [facility] Last Admin: 02/10/17 19:05 Dose: 210 mg Scopolamine HBr (Transderm-Scop -) 1 patch TD Q72H [facility] Topiramate 200 mg/ Topiramate (25 mg) 225 mg GT BID@06,18 [facility] Last Admin: 02/11/17 05:55 Dose: 225 mg - Objective Vital Signs: Vital Signs Temperature 98.2 F 02/11/17 14:00 Pulse Rate 79 02/11/17 14:00 Respiratory Rate 20 02/11/17 14:00 Blood Pressure 92/58 02/11/17 14:00 O2 Sat by Pulse Oximetry (%) 100 02/10/17 21:00 Constitutional: Yes: Calm Eyes: Yes: Conjunctiva Clear HENT: Yes: Atraumatic Cardiovascular: Yes: S1, S2 Respiratory: Yes: Rhonchi Gastrointestinal: Yes: Soft, Other (peg) Genitourinary: Yes: Brown Present Musculoskeletal: Yes: Muscle Weakness Edema: Yes Edema: LLE: 1+, RLE: 1+ Neurological: Yes: Pre-Existing Deficit Labs: CBC, BMP 02/11/17 07:30 02/11/17 07:30 Problem List - Problems (1) Pneumonia Code(s): J18.9 - PNEUMONIA, UNSPECIFIED ORGANISM Qualifiers: Pneumonia type: due to unspecified organism Laterality: unspecified laterality Lung location: unspecified part of lung Qualified Code(s): J18.9 - Pneumonia, unspecified organism (2) Acute respiratory failure with hypoxia Code(s): J96.01 - ACUTE RESPIRATORY FAILURE WITH HYPOXIA (3) ALEKSANDR (acute kidney injury) Code(s): N17.9 - ACUTE KIDNEY FAILURE, UNSPECIFIED Assessment/Plan Current Medications Generic Name Dose Route Start Last Admin Trade Name Freq PRN Reason Stop Dose Admin Albuterol/Ipratropium 1 amp 02/10/17 00:00 02/11/17 11:52 Duoneb - NEB 1 amp QIDR [facility] Administration Baclofen 5 mg 02/09/17 22:00 02/11/17 15:15 Lioresal - GT 5 mg TID [facility] Administration Diazepam 10 mg 02/09/17 20:49 Diastat Rectal Gel - RC PRN PRN ANXIETY Heparin Sodium (Porcine) 5,000 unit 02/09/17 22:00 02/11/17 14:45 Heparin - SQ 5,000 unit TID [facility] Administration Piperacillin Sod/Tazobactam Sod 50 mls @ 100 mls/hr 02/10/17 02:00 02/11/17 11: 03 Zosyn 3.375gm Ivpb (Pre-Docked) IVPB 100 mls/hr Q8H-IV [facility] Administration Protocol Lactulose 10 gm 02/09/17 20:49 02/10/17 09:28 Cephulac (Oral Use) GT 10 gm TID PRN Administration CONSTIPATION Levetiracetam 1,500 mg 02/10/17 06:30 02/11/17 05:55 Keppra Oral Solution - GT 1,500 mg BID@0630,1830 [facility] Administration Oxcarbazepine 180 mg 02/10/17 06:30 02/11/17 05:55 Trileptal GT 180 ml DAILY@0630 [facility] Administration Oxcarbazepine 210 mg 02/10/17 19:00 02/10/17 19:05 Trileptal GT 210 mg DAILY@1900 [facility] Administration Scopolamine HBr 1 patch 02/12/17 01:00 Transderm-Scop - TD Q72H [facility] Topiramate 200 mg/ Topiramate 225 mg 02/10/17 06:00 02/11/17 05:55 25 mg GT 225 mg BID@ [facility] Administration Laboratory Tests 02/08/17 17:15 Urine Eosinophils None seen c-ANCA Pending Proteinase 3 (PR3) Pending p-ANCA Pending Atypical p-ANCA Pending Myeloperoxidase Ab Pending Glomerular Base Memb Ab 6 Impression 1. ALEKSANDR 2. sepsis 3. pna 4. severe developmental delay 5. epilepsy 6. venous congestion 7. hypernatremia Plan - potassium is improving - cont free water with feeds - renal function is starting to improve - follow renal workup - likely resolving ATN - keep brown in place - cont abx - will follow Dr Cesar
[2017-02-11 16:30] LABS: C-ANCA <1:20 titer (Neg:<1:20); MYELOPEROXIDASE ANTIBODY <9.0 U/mL (0.0-9.0); P-ANCA <1:20 titer (Neg:<1:20); PROTEINASE-3 ANTIBODY <3.5 U/mL (0.0-3.5)
--- NOTE | 2017-02-11 16:41 | PN ---
Progress Note, Physician History of Present Illness: stable improving - Current Medication List Current Medications: Active Medications Albuterol/Ipratropium (Duoneb -) 1 amp NEB QIDR [facility] Last Admin: 02/11/17 11:52 Dose: 1 amp Baclofen (Lioresal -) 5 mg GT TID [facility] Last Admin: 02/11/17 15:15 Dose: 5 mg Diazepam (Diastat Rectal Gel -) 10 mg RC PRN PRN PRN Reason: ANXIETY Heparin Sodium (Porcine) (Heparin -) 5,000 unit SQ TID [facility] Last Admin: 02/11/17 14:45 Dose: 5,000 unit Piperacillin Sod/Tazobactam Sod (Zosyn 3.375gm Ivpb (Pre-Docked)) 50 mls @ 100 mls/hr IVPB Q8H-IV [facility] PRN Reason: Protocol Last Admin: 02/11/17 11:03 Dose: 100 mls/hr Lactulose (Cephulac (Oral Use)) 10 gm GT TID PRN PRN Reason: CONSTIPATION Last Admin: 02/10/17 09:28 Dose: 10 gm Levetiracetam (Keppra Oral Solution -) 1,500 mg GT BID@0630,1830 [facility] Last Admin: 02/11/17 05:55 Dose: 1,500 mg Oxcarbazepine (Trileptal) 180 mg GT DAILY@0630 [facility] Last Admin: 02/11/17 05:55 Dose: 180 ml Oxcarbazepine (Trileptal) 210 mg GT DAILY@1900 [facility] Last Admin: 02/10/17 19:05 Dose: 210 mg Scopolamine HBr (Transderm-Scop -) 1 patch TD Q72H [facility] Topiramate 200 mg/ Topiramate (25 mg) 225 mg GT BID@06,18 [facility] Last Admin: 02/11/17 05:55 Dose: 225 mg - Objective Vital Signs: Vital Signs Temperature 98.2 F 02/11/17 14:00 Pulse Rate 79 02/11/17 14:00 Respiratory Rate 20 02/11/17 14:00 Blood Pressure 92/58 02/11/17 14:00 O2 Sat by Pulse Oximetry (%) 100 02/10/17 21:00 Constitutional: Yes: No Distress, Calm Cardiovascular: Yes: Regular Rate and Rhythm Respiratory: Yes: On Nasal O2, Poor Air Entry, Rhonchi Gastrointestinal: Yes: Normal Bowel Sounds, Soft, Other (peg in place) Musculoskeletal: Yes: Other Extremities: Yes: Other Neurological: Yes: Alert, Other Psychiatric: Yes: Other Labs: CBC, BMP 02/11/17 07:30 02/11/17 07:30 Assessment/Plan Problem List - Problems (1) Pneumonia Code(s): J18.9 - PNEUMONIA, UNSPECIFIED ORGANISM Qualifiers: Pneumonia type: due to unspecified organism Laterality: unspecified laterality Lung location: unspecified part of lung Qualified Code(s): J18.9 - Pneumonia, unspecified organism (2) Acute respiratory failure with hypoxia Code(s): J96.01 - ACUTE RESPIRATORY FAILURE WITH HYPOXIA (3) Cerebral palsy Code(s): G80.9 - CEREBRAL PALSY, UNSPECIFIED (4) Functional quadriplegia Code(s): R53.2 - FUNCTIONAL QUADRIPLEGIA (5) Mental retardation Code(s): F79 - UNSPECIFIED INTELLECTUAL DISABILITIES (6) Seizure disorder Code(s): G40.909 - EPILEPSY, UNSP, NOT INTRACTABLE, WITHOUT STATUS EPILEPTICUS patient s renal function has detoriated wi plan continue current mgmt patient improving will see how she does tomorrow rest s per primary
[2017-02-12] MEDS ORDERED: SCOPOLAMINE HYDROBROMIDE 1 PATCH PATCH.TD72 TD SCH (01:00)
[2017-02-12] MEDS: SCOPOLAMINE HYDROBROMIDE 1 PATCH PATCH.TD72 TD SCH (02:19)
[2017-02-12] MEDS: PIPERACILLIN/TAZOB 3.375 GM 50 ML IVPB SCH ×3 (02:19→17:27)
[2017-02-12] MEDS: TOPIRAMATE GT SCH ×2 (06:04→17:27)
[2017-02-12] MEDS: OXcarbazepine 300 MG/5 ML 250 ML BULK BOTTLE GT SCH ×2 (06:05→18:44)
[2017-02-12] MEDS: BACLOFEN 10 MG TABLET (FP) GT SCH ×2 (06:05→13:56)
[2017-02-12] MEDS: levETIRAcetam 500 MG/5 ML ORAL SOLUTION (UNIT-DOSE CUPS) GT SCH ×2 (06:06→17:29)
[2017-02-12] MEDS: HEPARIN NA (PORCINE) 5,000 UNITS/ML 1ML VIAL SQ SCH ×2 (06:07→13:59)
[2017-02-12] MEDS: ALBUTEROL SO4 2.5/IPRATROPIUM 0.5 INH SOL 3 ML VIAL.NEB. NEB SCH ×4 (06:55→23:52)
[2017-02-12 07:25] LABS: MCH 33.9 pg (25.7-33.7); MCHC 34.5 g/dl (32.0-36.0); PLATELET COUNT 117 K/MM3 (134-434); RDW 15.3 % (11.6-15.6); WHITE BLOOD COUNT 6.1 K/mm3 (4.0-10.0)
[2017-02-12 09:06] LABS: ALBUMIN 2.1 g/dl (3.4-5.0); ANION GAP 10 (8-16); BILIRUBIN,TOTAL 0.4 mg/dL (0.2-1.0); CALCIUM 9.2 mg/dL (8.5-10.1); CO2 23 mmol/L (21-32); CREATININE 2.3 mg/dL (0.55-1.02); GLUCOSE,RANDOM 104 mg/dL (74-106); SGOT/AST 52 U/L (15-37); SGPT/ALT 92 U/L (12-78); TOT PROT 5.6 g/dl (6.4-8.2)
[2017-02-12 09:07] LABS: ALK PHOS 290 U/L (45-117)
[2017-02-12] MEDS ORDERED: PT OWN MED DRAWER 7, Y5N ONE ×3 (09:49→23:57)
--- NOTE | 2017-02-12 12:13 | PN ---
Progress Note, Physician History of Present Illness: No new events. Pt without distress, nonverbal - Current Medication List Current Medications: Active Medications Albuterol/Ipratropium (Duoneb -) 1 amp NEB QIDR [facility] Last Admin: 02/12/17 11:08 Dose: 1 amp Baclofen (Lioresal -) 5 mg GT TID [facility] Last Admin: 02/12/17 06:05 Dose: 5 mg Diazepam (Diastat Rectal Gel -) 10 mg RC PRN PRN PRN Reason: ANXIETY Heparin Sodium (Porcine) (Heparin -) 5,000 unit SQ TID [facility] Last Admin: 02/12/17 06:07 Dose: 5,000 unit Piperacillin Sod/Tazobactam Sod (Zosyn 3.375gm Ivpb (Pre-Docked)) 50 mls @ 100 mls/hr IVPB Q8H-IV [facility] PRN Reason: Protocol Last Admin: 02/12/17 10:02 Dose: 100 mls/hr Lactulose (Cephulac (Oral Use)) 10 gm GT TID PRN PRN Reason: CONSTIPATION Last Admin: 02/10/17 09:28 Dose: 10 gm Levetiracetam (Keppra Oral Solution -) 1,500 mg GT BID@0630,1830 [facility] Last Admin: 02/12/17 06:06 Dose: 1,500 mg Oxcarbazepine (Trileptal) 180 mg GT DAILY@0630 [facility] Last Admin: 02/12/17 06:05 Dose: 3 ml Oxcarbazepine (Trileptal) 210 mg GT DAILY@1900 [facility] Last Admin: 02/11/17 18:37 Dose: 210 mg Scopolamine HBr (Transderm-Scop -) 1 patch TD Q72H [facility] Last Admin: 02/12/17 02:19 Dose: 1 patch Topiramate 200 mg/ Topiramate (25 mg) 225 mg GT BID@,18 [facility] Last Admin: 02/12/17 06:04 Dose: 225 mg - Objective Vital Signs: Vital Signs Temperature 97.1 F L 02/12/17 06:00 Pulse Rate 90 02/12/17 10:59 Respiratory Rate 18 02/12/17 06:00 Blood Pressure 100/64 02/12/17 06:00 O2 Sat by Pulse Oximetry (%) 95 02/12/17 10:59 Constitutional: Yes: No Distress HENT: Yes: WNL Neck: Yes: Supple Cardiovascular: Yes: Regular Rate and Rhythm Respiratory: Yes: Regular Gastrointestinal: Yes: Normal Bowel Sounds, Soft, Other (+ peg) Musculoskeletal: Yes: WNL Extremities: Yes: WNL Peripheral Pulses WNL: Yes Integumentary: Yes: WNL Labs: CBC, BMP 02/12/17 06:35 02/12/17 06:35 Problem List - Problems (1) Pneumonia Code(s): J18.9 - PNEUMONIA, UNSPECIFIED ORGANISM Qualifiers: Pneumonia type: due to unspecified organism Laterality: unspecified laterality Lung location: unspecified part of lung Qualified Code(s): J18.9 - Pneumonia, unspecified organism (2) Cerebral palsy Code(s): G80.9 - CEREBRAL PALSY, UNSPECIFIED (3) Mental retardation Code(s): F79 - UNSPECIFIED INTELLECTUAL DISABILITIES Assessment/Plan Pt afebrile, currently stable continue antibiotics continue monitor
--- NOTE | 2017-02-12 13:01 | PN ---
Progress Note (short form) - Note Progress Note: RENAL Pt seen and examined did not respond to questions Last Vital Signs Temp Pulse Resp BP Pulse Ox 97.1 F L 90 18 100/64 95 02/12/17 06:00 02/12/17 10:59 02/12/17 06:00 02/12/17 06:00 02/12/17 10:59 lungs rhonchi bilat cvs s1s2 rr abd soft ext +edema neuro asleep brown bag with clear urine Current Medications Generic Name Dose Route Start Last Admin Trade Name Freq PRN Reason Stop Dose Admin Albuterol/Ipratropium 1 amp 02/10/17 00:00 02/12/17 11:08 Duoneb - NEB 1 amp QIDR [facility] Administration Baclofen 5 mg 02/09/17 22:00 02/12/17 06:05 Lioresal - GT 5 mg TID [facility] Administration Diazepam 10 mg 02/09/17 20:49 Diastat Rectal Gel - RC PRN PRN ANXIETY Heparin Sodium (Porcine) 5,000 unit 02/09/17 22:00 02/12/17 06:07 Heparin - SQ 5,000 unit TID [facility] Administration Piperacillin Sod/Tazobactam Sod 50 mls @ 100 mls/hr 02/10/17 02:00 02/12/17 10: 02 Zosyn 3.375gm Ivpb (Pre-Docked) IVPB 100 mls/hr Q8H-IV [facility] Administration Protocol Lactulose 10 gm 02/09/17 20:49 02/10/17 09:28 Cephulac (Oral Use) GT 10 gm TID PRN Administration CONSTIPATION Levetiracetam 1,500 mg 02/10/17 06:30 02/12/17 06:06 Keppra Oral Solution - GT 1,500 mg BID@0630,1830 [facility] Administration Oxcarbazepine 180 mg 02/10/17 06:30 02/12/17 06:05 Trileptal GT 3 ml DAILY@0630 [facility] Administration Oxcarbazepine 210 mg 02/10/17 19:00 02/11/17 18:37 Trileptal GT 210 mg DAILY@1900 [facility] Administration Scopolamine HBr 1 patch 02/12/17 01:00 02/12/17 02:19 Transderm-Scop - TD 1 patch Q72H [facility] Administration Topiramate 200 mg/ Topiramate 225 mg 02/10/17 06:00 02/12/17 06:04 25 mg GT 225 mg BID@,18 [facility] Administration CBC, BMP 02/12/17 06:35 02/12/17 06:35 IMPRESSION Impression 1. ALEKSANDR appears to be ATN from sepsis and hypotension Improving 2. sepsis 3. pna 4. severe developmental delay 5. epilepsy 6. venous congestion 7. hypernatremia improved Plan - potassium is improving - cont free water with feed - keep brown in place - cont abx MV
--- NOTE | 2017-02-12 15:32 | PN ---
Progress Note (short form) - Note Progress Note: PULMONARY Somnolent, no fevers recorded. Last Vital Signs Temp Pulse Resp BP Pulse Ox 97.2 F L 90 18 116/77 95 02/12/17 10:00 02/12/17 10:59 02/12/17 10:00 02/12/17 10:00 02/12/17 10:59 Gen: breathing nonlabored Heart: tachycardic, regular Lung: scattered rhonchi Abd: soft, nontender Ext: +edema CBC, BMP 02/12/17 06:35 02/12/17 06:35 Active Medications Albuterol/Ipratropium (Duoneb -) 1 amp NEB QIDR [facility] Last Admin: 02/12/17 11:08 Dose: 1 amp Baclofen (Lioresal -) 5 mg GT TID [facility] Last Admin: 02/12/17 13:56 Dose: 5 mg Diazepam (Diastat Rectal Gel -) 10 mg RC PRN PRN PRN Reason: ANXIETY Heparin Sodium (Porcine) (Heparin -) 5,000 unit SQ TID [facility] Last Admin: 02/12/17 13:59 Dose: 5,000 unit Piperacillin Sod/Tazobactam Sod (Zosyn 3.375gm Ivpb (Pre-Docked)) 50 mls @ 100 mls/hr IVPB Q8H-IV [facility] PRN Reason: Protocol Last Admin: 02/12/17 10:02 Dose: 100 mls/hr Lactulose (Cephulac (Oral Use)) 10 gm GT TID PRN PRN Reason: CONSTIPATION Last Admin: 02/10/17 09:28 Dose: 10 gm Levetiracetam (Keppra Oral Solution -) 1,500 mg GT BID@0630,1830 [facility] Last Admin: 02/12/17 06:06 Dose: 1,500 mg Oxcarbazepine (Trileptal) 180 mg GT DAILY@0630 [facility] Last Admin: 02/12/17 06:05 Dose: 3 ml Oxcarbazepine (Trileptal) 210 mg GT DAILY@1900 [facility] Last Admin: 02/11/17 18:37 Dose: 210 mg Scopolamine HBr (Transderm-Scop -) 1 patch TD Q72H [facility] Last Admin: 02/12/17 02:19 Dose: 1 patch Topiramate 200 mg/ Topiramate (25 mg) 225 mg GT BID@ [facility] Last Admin: 02/12/17 06:04 Dose: 225 mg A/P Pneumonia Sepsis Acute Kidney Injury Mental Retardation Seizure Disorder - continue antibiotics - monitor urine output, creatinine - aspiration precautions - O2 to keep SpO2 >90% - DVT prophylaxis
--- NOTE | 2017-02-12 17:45 | PN ---
Physical Exam: SUBJECTIVE: Patient seen and examined Patient is lying in bed with no acute distress. OBJECTIVE: Vital Signs Temperature 98.7 F 02/12/17 14:56 Pulse Rate 97 H 02/12/17 14:56 Respiratory Rate 18 02/12/17 14:56 Blood Pressure 110/64 02/12/17 14:56 O2 Sat by Pulse Oximetry (%) 95 02/12/17 10:59 GENERAL: lying in bed with no acute distress. HEAD: Normal with no signs of trauma. EYES: PERRL, sclera anicteric, conjunctiva clear. ENT: Ears normal, oropharynx clear without exudates, moist mucous membranes. NECK: Trachea midline, full range of motion, supple. LUNGS: decreased Breath sounds bl, no wheezes, no crackles, no accessory muscle use. HEART: Regular rate and rhythm, S1, S2 positive, no rub or gallop. ABDOMEN: Soft, nontender, nondistended, normoactive bowel sounds, no guarding, no rebound, no hepatosplenomegaly, no masses. EXTREMITIES: 2+ pulses, warm, well-perfused, no edema. NEUROLOGICAL: unable to access. PSYCH:Unable to access. SKIN: Warm, dry, normal turgor, no rashes or lesions noted CBCD WBC 6.1 K/mm3 (4.0-10.0) 02/12/17 06:35 RBC 2.52 M/mm3 (3.60-5.2) L 02/12/17 06:35 Hgb 8.5 GM/dL (10.7-15.3) L 02/12/17 06:35 Hct 24.7 % (32.4-45.2) L 02/12/17 06:35 MCV 98.0 fl (80-96) H 02/12/17 06:35 MCHC 34.5 g/dl (32.0-36.0) 02/12/17 06:35 RDW 15.3 % (11.6-15.6) 02/12/17 06:35 Plt Count 117 K/MM3 (134-434) L D 02/12/17 06:35 MPV 9.0 fl (7.5-11.1) 02/12/17 06:35 CMP Sodium 150 mmol/L (136-145) H 02/12/17 06:35 Potassium 4.2 mmol/L (3.5-5.1) 02/12/17 06:35 Chloride 117 mmol/L (98-107) H 02/12/17 06:35 Carbon Dioxide 23 mmol/L (21-32) 02/12/17 06:35 Anion Gap 10 (8-16) 02/12/17 06:35 BUN 49 mg/dL (7-18) H 02/12/17 06:35 Creatinine 2.3 mg/dL (0.55-1.02) H 02/12/17 06:35 Creat Clearance w eGFR 25.44 (>60) 02/12/17 06:35 Random Glucose 104 mg/dL (74-106) 02/12/17 06:35 Calcium 9.2 mg/dL (8.5-10.1) 02/12/17 06:35 Total Bilirubin 0.4 mg/dL (0.2-1.0) 02/12/17 06:35 AST 52 U/L (15-37) H 02/12/17 06:35 ALT 92 U/L (12-78) H 02/12/17 06:35 Alkaline Phosphatase 290 U/L (45-117) H 02/12/17 06:35 Total Protein 5.6 g/dl (6.4-8.2) L 02/12/17 06:35 Albumin 2.1 g/dl (3.4-5.0) L 02/12/17 06:35 Active Medications Generic Name Dose Route Start Last Admin Trade Name Freq PRN Reason Stop Dose Admin Albuterol/Ipratropium 1 amp 02/10/17 00:00 02/12/17 11:08 Duoneb - NEB 1 amp QIDR [facility]IS Administration Baclofen 5 mg 02/09/17 22:00 02/12/17 13:56 Lioresal - GT 5 mg TID [facility]IS Administration Diazepam 10 mg 02/09/17 20:49 Diastat Rectal Gel - RC PRN PRN ANXIETY Heparin Sodium (Porcine) 5,000 unit 02/09/17 22:00 02/12/17 13:59 Heparin - SQ 5,000 unit TID [facility]IS Administration Piperacillin Sod/Tazobactam Sod 50 mls @ 100 mls/hr 02/10/17 02:00 02/12/17 17: 27 Zosyn 3.375gm Ivpb (Pre-Docked) IVPB 100 mls/hr Q8H-IV [facility] Administration Protocol Lactulose 10 gm 02/09/17 20:49 02/10/17 09:28 Cephulac (Oral Use) GT 10 gm TID PRN Administration CONSTIPATION Levetiracetam 1,500 mg 02/10/17 06:30 02/12/17 17:29 Keppra Oral Solution - GT 1,500 mg BID@0630,1830 [facility] Administration Oxcarbazepine 180 mg 02/10/17 06:30 02/12/17 06:05 Trileptal GT 3 ml DAILY@0630 [facility] Administration Oxcarbazepine 210 mg 02/10/17 19:00 02/11/17 18:37 Trileptal GT 210 mg DAILY@1900 [facility] Administration Scopolamine HBr 1 patch 02/12/17 01:00 02/12/17 02:19 Transderm-Scop - TD 1 patch Q72H [facility] Administration Topiramate 200 mg/ Topiramate 225 mg 02/10/17 06:00 02/12/17 17:27 25 mg GT 225 mg BID@,18 [facility] Administration ASSESSMENT/PLAN: 26 y/o lady with h/o severe mental retardation ,cerebral palsy quadriplegia, recurrent PNAs , and seizure disorder who was sent from [place] with increased secretions and tachypnea. She was found to be septic with hypothermia # Acute Hyperkalemia resolved 4.2 today from---> 5.7, repeat was 7.0, s/p Calcium gluconate, stat albuterol, insulin, d25,bicarb 1/2 and insulin iv 1/2 the dose decreased the tube feeding due to potassium in the feeding, Kayexalate 30gm now. #Acute Hypernatremia will increase the free fluid to 75cc/hr, will repeat the level in am # Sepsis: likely due to aspiration PNA . On IV Antibiotic zosyn renally dosed and s/p Vanco # Aspiration Pneumonia on IV zosyn , ID on the case # ALEKSANDR: improving cr 2.3 today from 3.1 ,possible due ATN from decreased perfusion (hypotension) vs just hypovolemia. Increased free fluid from the tube feeding to 75cc/hr total volume of 1800 for now. repeat the level in am. # H/o Seizure:no recurrence of seizure , cont current meds # Chronic transaminitis improving : could be due to medications vs underlying liver disease ( Autoimmune hepatitis, PSC, ...etc ) . hepatitis serology was neg last admission ;stable LFTS for now. complete w.u as out pt # Nutrition on Peg tube feeding and increased the free fluid water again since dehydrated and elevated creatinine as per discussion with DVT Px: Heparin Visit type - Emergency Visit Emergency Visit: Yes ED Registration Date: 02/05/17 Care time: The patient presented to the Emergency Department on the above date and was hospitalized for further evaluation of their emergent condition. - New Patient This patient is new to me today: No - Critical Care Critical Care patient: No
[2017-02-13] MEDS: HEPARIN NA (PORCINE) 5,000 UNITS/ML 1ML VIAL SQ SCH ×3 (00:01→14:17)
[2017-02-13] MEDS: PIPERACILLIN/TAZOB 3.375 GM 50 ML IVPB SCH ×3 (02:20→16:59)
[2017-02-13] MEDS ORDERED: PT OWN MED DRAWER 7, Y5N ONE ×3 (05:42→23:58)
[2017-02-13] MEDS: TOPIRAMATE GT SCH ×2 (05:49→17:00)
[2017-02-13] MEDS: BACLOFEN 10 MG TABLET (FP) GT SCH ×3 (05:49→14:17)
[2017-02-13] MEDS: OXcarbazepine 300 MG/5 ML 250 ML BULK BOTTLE GT SCH ×2 (05:50→18:26)
[2017-02-13] MEDS: levETIRAcetam 500 MG/5 ML ORAL SOLUTION (UNIT-DOSE CUPS) GT SCH ×2 (05:50→17:36)
[2017-02-13] MEDS: ALBUTEROL SO4 2.5/IPRATROPIUM 0.5 INH SOL 3 ML VIAL.NEB. NEB SCH ×4 (06:58→23:00)
--- NOTE | 2017-02-13 08:38 | PN ---
Physical Exam: SUBJECTIVE: Patient seen and examined this AM. Pt still maintaining good UOP. Doing much better. Brown has blood tniged urine but pt is on her period, and brown was removed and placed back in. OBJECTIVE: Vital Signs Period Temp Pulse Resp BP Sys/Herman Pulse Ox Last 24 Hr 97.2 F-98.8 F 63-97 18-20 90-116/53-77 95-100 GEN: Pt sleeping, comfortable HEENT: PERRLA, no cervical LAD CV: S1, S2, RRR, no murmur appreciated LUNG: Lungs are clearing anteriorly ABD: Soft, ND, pt has G tube, normoative BS MSK: 2+ pulses, well perfused, no edema : Pt has visible gross blood on pad from vagina, brown NEURO: Exam limited. PERRLA, no facial droop. Active Medications Generic Name Dose Route Start Last Admin Trade Name Freq PRN Reason Stop Dose Admin Albuterol/Ipratropium 1 amp 02/10/17 00:00 02/13/17 06:58 Duoneb - NEB 1 amp QIDR [facility]IS Administration Baclofen 5 mg 02/09/17 22:00 02/13/17 05:49 Lioresal - GT 5 mg TID [facility]IS Administration Heparin Sodium (Porcine) 5,000 unit 02/09/17 22:00 02/13/17 05:49 Heparin - SQ 5,000 unit TID [facility] Administration Piperacillin Sod/Tazobactam Sod 50 mls @ 100 mls/hr 02/10/17 02:00 02/13/17 02: 20 Zosyn 3.375gm Ivpb (Pre-Docked) IVPB 100 mls/hr Q8H-IV [facility]IS Administration Protocol Lactulose 10 gm 02/09/17 20:49 02/10/17 09:28 Cephulac (Oral Use) GT 10 gm TID PRN Administration CONSTIPATION Levetiracetam 1,500 mg 02/10/17 06:30 02/13/17 05:50 Keppra Oral Solution - GT 1,500 mg BID@0630,1830 [facility] Administration Oxcarbazepine 180 mg 02/10/17 06:30 02/13/17 05:50 Trileptal GT 5 ml DAILY@0630 [facility] Administration Oxcarbazepine 210 mg 02/10/17 19:00 02/12/17 18:44 Trileptal GT 210 mg DAILY@1900 [facility] Administration Scopolamine HBr 1 patch 02/12/17 01:00 02/12/17 02:19 Transderm-Scop - TD 1 patch Q72H [facility] Administration Topiramate 200 mg/ Topiramate 225 mg 02/10/17 06:00 02/13/17 05:49 25 mg GT 225 mg BID@06,18 [facility]IS Administration Laboratory Results - last 24 hr 02/13/17 02/13/17 08:50 08:50 WBC 5.4 RBC 2.48 L Hgb 8.3 L Hct 24.3 L MCV 98.1 H MCH 33.5 MCHC 34.1 RDW 14.8 Plt Count 145 D MPV 8.9 Sodium 148 H Potassium 3.8 Chloride 115 H Carbon Dioxide 23 Anion Gap 10 BUN 50 H Creatinine 1.9 H Random Glucose 92 Calcium 8.9 ASSESSMENT/PLAN: Pt is a 26yo F from [place] with severe MR, CP, spastic quadriplegia, seizure dz, with recurrent PNAs who presented with sepsis. # Sepsis likely 2/2 PNA - resolving - Aspiration vs HCAP - Clinical status improved - Day 8 of Zosyn 3.375mg IV Q6 (started Feb 05) - Duonebs - Scopolamine patch # ALEKSANDR - improving - Free water through NGT increased to 75cc/hr - Pt's ALEKSANDR is improving gradually - Maintains good UOP - Anca, AntiGBM are negative # Hyperkalemia - improving - Discontinued K+ through G tube - Repeat BMP in the AM # Hypernatremia - improving - S/p K+ shifter meds albuterol + bicarb - Improving with increased free water # Tachypnea - resolving - RR in the 20s now, improved - Latest ABG shows no CO2 retention # NAG Metabolic Acidosis - Recent ABG shows met acidosis with resp compensation - Likely from intrinsic kidney disease # Thrombocytopenia - improved - Vaginal bleeding likely normal menses, unlikely pathologic from low PLT - Continue to monitor PLT # Transaminitis - Chronic - Hepatocellular pictures, less likely obstructive - Can f/u outpatient with imaging + autoimmune labs # Hx of Seizures - controlled - Continue in hospital (Keppra, Oxcarb, Topamax, Rectal Diazepam PRN) - Ativan PRN for new seizure - No seizures in house, if pt presents with new seizures, consider Neuro consult # Hx of Spastic CP - Continue Baclofen # Hx of Constipation - Continue Senna and lactulose # FEN - Fluids: None - Electrolytes: Monitor - Nutrition: Continuous tube feeds with increased Free Water to 75cc/hr # Prophylaxis - DVT: Pt is high risk, Heparin SQ TID - GI: Not indicated # Dispo - Consult with ID about antibiotic duration and PO transition - Pt's kidneys are improving with increased free water through GT - Likely discharge on Tuesday Dr. Ekta Wan, PGY1 - Internal Medicine Visit type - Emergency Visit Emergency Visit: No - New Patient This patient is new to me today: No - Critical Care Critical Care patient: No
[2017-02-13 09:06] LABS: MCH 33.5 pg (25.7-33.7)
[2017-02-13 09:07] LABS: MCHC 34.1 g/dl (32.0-36.0); MEAN CELL VOLUME 98.1 fl (80-96); MEAN PLT VOLUME 8.9 fl (7.5-11.1); PLATELET COUNT 145 K/MM3 (134-434); RDW 14.8 % (11.6-15.6); WHITE BLOOD COUNT 5.4 K/mm3 (4.0-10.0)
[2017-02-13 11:24] LABS: ANION GAP 10 (8-16); CALCIUM 8.9 mg/dL (8.5-10.1); CO2 23 mmol/L (21-32); CREATININE 1.9 mg/dL (0.55-1.02); GLUCOSE,RANDOM 92 mg/dL (74-106)
--- NOTE | 2017-02-13 11:56 | PN ---
Teaching Attending Note Name of Resident: Ekta Wan ATTENDING PHYSICIAN STATEMENT I saw and evaluated the patient. I reviewed the resident's note and discussed the case with the resident. I agree with the resident's findings and plan as documented. SUBJECTIVE: Patient is doing better, but having her menstrual cycle at this time. OBJECTIVE: Vital Signs Temperature 97.8 F 02/13/17 10:00 Pulse Rate 73 02/13/17 11:28 Respiratory Rate 20 02/13/17 10:00 Blood Pressure 104/69 02/13/17 10:00 O2 Sat by Pulse Oximetry (%) 96 02/13/17 11:28 CBCD WBC 5.4 K/mm3 (4.0-10.0) 02/13/17 08:50 RBC 2.48 M/mm3 (3.60-5.2) L 02/13/17 08:50 Hgb 8.3 GM/dL (10.7-15.3) L 02/13/17 08:50 Hct 24.3 % (32.4-45.2) L 02/13/17 08:50 MCV 98.1 fl (80-96) H 02/13/17 08:50 MCHC 34.1 g/dl (32.0-36.0) 02/13/17 08:50 RDW 14.8 % (11.6-15.6) 02/13/17 08:50 Plt Count 145 K/MM3 (134-434) D 02/13/17 08:50 MPV 8.9 fl (7.5-11.1) 02/13/17 08:50 CMP Sodium 148 mmol/L (136-145) H 02/13/17 08:50 Potassium 3.8 mmol/L (3.5-5.1) 02/13/17 08:50 Chloride 115 mmol/L (98-107) H 02/13/17 08:50 Carbon Dioxide 23 mmol/L (21-32) 02/13/17 08:50 Anion Gap 10 (8-16) 02/13/17 08:50 BUN 50 mg/dL (7-18) H 02/13/17 08:50 Creatinine 1.9 mg/dL (0.55-1.02) H 02/13/17 08:50 Creat Clearance w eGFR 25.44 (>60) 02/12/17 06:35 Random Glucose 92 mg/dL (74-106) 02/13/17 08:50 Calcium 8.9 mg/dL (8.5-10.1) 02/13/17 08:50 Total Bilirubin 0.4 mg/dL (0.2-1.0) 02/12/17 06:35 AST 52 U/L (15-37) H 02/12/17 06:35 ALT 92 U/L (12-78) H 02/12/17 06:35 Alkaline Phosphatase 290 U/L (45-117) H 02/12/17 06:35 Total Protein 5.6 g/dl (6.4-8.2) L 02/12/17 06:35 Albumin 2.1 g/dl (3.4-5.0) L 02/12/17 06:35 Current Medications Generic Name Dose Route Start Last Admin Trade Name Freq PRN Reason Stop Dose Admin Albuterol/Ipratropium 1 amp 02/10/17 00:00 02/13/17 11:27 Duoneb - NEB 1 amp QIDR [facility]IS Administration Baclofen 5 mg 02/09/17 22:00 02/13/17 05:49 Lioresal - GT 5 mg TID [facility]IS Administration Heparin Sodium (Porcine) 5,000 unit 02/09/17 22:00 02/13/17 05:49 Heparin - SQ 5,000 unit TID [facility] Administration Piperacillin Sod/Tazobactam Sod 50 mls @ 100 mls/hr 02/10/17 02:00 02/13/17 10: 22 Zosyn 3.375gm Ivpb (Pre-Docked) IVPB 100 mls/hr Q8H-IV [facility]IS Administration Protocol Lactulose 10 gm 02/09/17 20:49 02/10/17 09:28 Cephulac (Oral Use) GT 10 gm TID PRN Administration CONSTIPATION Levetiracetam 1,500 mg 02/10/17 06:30 02/13/17 05:50 Keppra Oral Solution - GT 1,500 mg BID@0630,1830 [facility] Administration Oxcarbazepine 180 mg 02/10/17 06:30 02/13/17 05:50 Trileptal GT 5 ml DAILY@0630 [facility] Administration Oxcarbazepine 210 mg 02/10/17 19:00 02/12/17 18:44 Trileptal GT 210 mg DAILY@1900 [facility]IS Administration Scopolamine HBr 1 patch 02/12/17 01:00 02/12/17 02:19 Transderm-Scop - TD 1 patch Q72H [facility]IS Administration Topiramate 200 mg/ Topiramate 225 mg 02/10/17 06:00 02/13/17 05:49 25 mg GT 225 mg BID@,18 [facility]IS Administration Home Medications Medication Instructions Recorded Albuterol 0.083% Nebulizer Sobeida 1 neb NEB PRN PRN 02/05/17 [Ventolin 0.083%] Baclofen 5 mg GT TID 02/05/17 Cholecalciferol (Vitamin D3) 2,000 unit GT DAILY 02/05/17 [Vitamin D3] Diazepam [Diastat Acudial] 10 mg RC PRN PRN 02/05/17 Ipratropium/Albuterol Sulfate 3 ml IH Q4HWA PRN 02/05/17 [Iprat-Albut 0.5-3(2.5) mg/3 ml] Lactulose 15 gm GT TID 02/05/17 Levetiracetam 1,500 mg GT BID 02/05/17 Multivit-Min/FA/Lycopen/Lutein 1 each PO DAILY 02/05/17 [Vitrum 50+ Senior Tablet] Nystatin Ointment [Mycostatin 1 applic TP PRN PRN 02/05/17 Ointment -] OXcarbazepine [Trileptal] 180 mg GT DAILY 02/05/17 OXcarbazepine [Trileptal] 210 mg GT HS 02/05/17 Topiramate 200 mg GT BID 02/05/17 Topiramate [Trokendi Xr] 25 mg GT BID 02/05/17 PE: per resident's note ASSESSMENT AND PLAN: 26 y/o lady with h/o severe mental retardation ,cerebral palsy quadriplegia, recurrent PNAs , and seizure disorder who was sent from [place] with increased secretions and tachypnea. She was found to be septic with hypothermia # s/p Acute Hyperkalemia resolved now 7.0-->4.2--> 3.8 , s/p Calcium gluconate, stat albuterol, insulin, d25,bicarb 1/2 and insulin iv 1/2 the dose decreased the tube feeding due to potassium in the feeding, Kayexalate 30gm now. #Acute Hypernatremia improving post increasing the free fluid to 75cc/hr, will repeat the level in am # Sepsis: likely due to aspiration PNA . On IV Antibiotic zosyn renally dosed and s/p Vanco, no leukocytosis today. # Aspiration Pneumonia on IV zosyn continue, ID on the case # ALEKSANDR: improving cr 31.-->2.3-->1.9 today , most likely due to ATN from decreased perfusion . Increased free fluid from the tube feeding to 75cc/hr total volume of 1800 for now. repeat the level in am. # H/o Seizure:no recurrence of seizure , cont current meds # Chronic transaminitis improving as well : could be due to medications vs underlying liver disease ( Autoimmune hepatitis, PSC, ...etc ) . hepatitis serology was neg last admission ;stable LFTS for now. complete w.u as out pt # Nutrition on Peg tube feeding and continue the free fluid water. DVT Px: Heparin
--- NOTE | 2017-02-13 12:24 | PN ---
Progress Note (short form) - Note Progress Note: RENAL Pt seen and examined did not respond to questions Last Vital Signs Temp Pulse Resp BP Pulse Ox 97.8 F 73 20 104/69 96 02/13/17 10:00 02/13/17 11:28 02/13/17 10:00 02/13/17 10:00 02/13/17 11:28 lungs rhonchi bilat cvs s1s2 rr abd soft ext +edema neuro asleep brown bag with clear urine neuro arousable CBC, BMP 02/13/17 08:50 02/13/17 08:50 Current Medications Generic Name Dose Route Start Last Admin Trade Name Freq PRN Reason Stop Dose Admin Albuterol/Ipratropium 1 amp 02/10/17 00:00 02/13/17 11:27 Duoneb - NEB 1 amp QIDR [facility]IS Administration Baclofen 5 mg 02/09/17 22:00 02/13/17 05:49 Lioresal - GT 5 mg TID [facility] Administration Heparin Sodium (Porcine) 5,000 unit 02/09/17 22:00 02/13/17 05:49 Heparin - SQ 5,000 unit TID [facility] Administration Piperacillin Sod/Tazobactam Sod 50 mls @ 100 mls/hr 02/10/17 02:00 02/13/17 10: 22 Zosyn 3.375gm Ivpb (Pre-Docked) IVPB 100 mls/hr Q8H-IV [facility]IS Administration Protocol Lactulose 10 gm 02/09/17 20:49 02/10/17 09:28 Cephulac (Oral Use) GT 10 gm TID PRN Administration CONSTIPATION Levetiracetam 1,500 mg 02/10/17 06:30 02/13/17 05:50 Keppra Oral Solution - GT 1,500 mg BID@0630,1830 [facility] Administration Oxcarbazepine 180 mg 02/10/17 06:30 02/13/17 05:50 Trileptal GT 5 ml DAILY@0630 [facility] Administration Oxcarbazepine 210 mg 02/10/17 19:00 02/12/17 18:44 Trileptal GT 210 mg DAILY@1900 [facility] Administration Scopolamine HBr 1 patch 02/12/17 01:00 02/12/17 02:19 Transderm-Scop - TD 1 patch Q72H [facility] Administration Topiramate 200 mg/ Topiramate 225 mg 02/10/17 06:00 02/13/17 05:49 25 mg GT 225 mg BID@,18 [facility] Administration IMPRESSION Impression 1. ALEKSANDR appears to be ATN from sepsis and hypotension Improving 2. sepsis 3. pna 4. severe developmental delay 5. epilepsy 6. venous congestion 7. hypernatremia improved 8.worsening anemia 9. aleksandr improved Plan continue current management avoid hypotensive episodes evaluate anemia continue free water via feeding tube MV
--- NOTE | 2017-02-13 14:41 | PN ---
Progress Note (short form) - Note Progress Note: PULMONARY Somnolent, no fevers recorded. Last Vital Signs Temp Pulse Resp BP Pulse Ox 98.3 F 75 20 112/57 96 02/13/17 14:09 02/13/17 14:09 02/13/17 14:09 02/13/17 14:09 02/13/17 11:28 Gen: breathing nonlabored Heart: tachycardic, regular Lung: scattered rhonchi Abd: soft, nontender Ext: +edema CBC, BMP 02/13/17 08:50 02/13/17 08:50 Active Medications Albuterol/Ipratropium (Duoneb -) 1 amp NEB QIDR [facility] Last Admin: 02/13/17 11:27 Dose: 1 amp Baclofen (Lioresal -) 5 mg GT TID [facility] Last Admin: 02/13/17 14:17 Dose: 5 mg Heparin Sodium (Porcine) (Heparin -) 5,000 unit SQ TID [facility] Last Admin: 02/13/17 14:17 Dose: 5,000 unit Piperacillin Sod/Tazobactam Sod (Zosyn 3.375gm Ivpb (Pre-Docked)) 50 mls @ 100 mls/hr IVPB Q8H-IV [facility]IS PRN Reason: Protocol Last Admin: 02/13/17 10:22 Dose: 100 mls/hr Lactulose (Cephulac (Oral Use)) 10 gm GT TID PRN PRN Reason: CONSTIPATION Last Admin: 02/10/17 09:28 Dose: 10 gm Levetiracetam (Keppra Oral Solution -) 1,500 mg GT BID@0630,1830 [facility] Last Admin: 02/13/17 05:50 Dose: 1,500 mg Oxcarbazepine (Trileptal) 180 mg GT DAILY@0630 [facility] Last Admin: 02/13/17 05:50 Dose: 5 ml Oxcarbazepine (Trileptal) 210 mg GT DAILY@1900 [facility] Last Admin: 02/12/17 18:44 Dose: 210 mg Scopolamine HBr (Transderm-Scop -) 1 patch TD Q72H [facility] Last Admin: 02/12/17 02:19 Dose: 1 patch Topiramate 200 mg/ Topiramate (25 mg) 225 mg GT BID@,18 [facility] Last Admin: 02/13/17 05:49 Dose: 225 mg A/P Pneumonia Sepsis Acute Kidney Injury Mental Retardation Seizure Disorder - continue antibiotics - monitor urine output, creatinine - aspiration precautions - O2 to keep SpO2 >90% - DVT prophylaxis
--- NOTE | 2017-02-13 17:35 | PN ---
Progress Note, Physician History of Present Illness: Pt is much more alert today. Nonverbal but without acute distress. - Current Medication List Current Medications: Active Medications Albuterol/Ipratropium (Duoneb -) 1 amp NEB QIDR [facility] Last Admin: 02/13/17 11:27 Dose: 1 amp Baclofen (Lioresal -) 5 mg GT TID [facility] Last Admin: 02/13/17 14:17 Dose: 5 mg Heparin Sodium (Porcine) (Heparin -) 5,000 unit SQ TID [facility] Last Admin: 02/13/17 14:17 Dose: 5,000 unit Piperacillin Sod/Tazobactam Sod (Zosyn 3.375gm Ivpb (Pre-Docked)) 50 mls @ 100 mls/hr IVPB Q8H-IV [facility] PRN Reason: Protocol Last Admin: 02/13/17 16:59 Dose: 100 mls/hr Lactulose (Cephulac (Oral Use)) 10 gm GT TID PRN PRN Reason: CONSTIPATION Last Admin: 02/10/17 09:28 Dose: 10 gm Levetiracetam (Keppra Oral Solution -) 1,500 mg GT BID@0630,1830 [facility] Last Admin: 02/13/17 05:50 Dose: 1,500 mg Oxcarbazepine (Trileptal) 180 mg GT DAILY@0630 [facility] Last Admin: 02/13/17 05:50 Dose: 5 ml Oxcarbazepine (Trileptal) 210 mg GT DAILY@1900 [facility] Last Admin: 02/12/17 18:44 Dose: 210 mg Scopolamine HBr (Transderm-Scop -) 1 patch TD Q72H [facility] Last Admin: 02/12/17 02:19 Dose: 1 patch Topiramate 200 mg/ Topiramate (25 mg) 225 mg GT BID@06,18 [facility] Last Admin: 02/13/17 17:00 Dose: 225 mg - Objective Vital Signs: Vital Signs Temperature 98.3 F 02/13/17 14:09 Pulse Rate 75 02/13/17 14:09 Respiratory Rate 20 02/13/17 14:09 Blood Pressure 112/57 02/13/17 14:09 O2 Sat by Pulse Oximetry (%) 96 02/13/17 11:28 Constitutional: Yes: No Distress, Calm Neck: Yes: Supple Cardiovascular: Yes: Regular Rate and Rhythm Respiratory: Yes: Other (coarse breath sounds L>R) Gastrointestinal: Yes: Normal Bowel Sounds, Soft Genitourinary: Yes: Traore Present, Other (hematuria vs. bleeding from menses?) Integumentary: Yes: WNL Neurological: Yes: Alert Labs: CBC, BMP 02/13/17 08:50 02/13/17 08:50 Problem List - Problems (1) Pneumonia Code(s): J18.9 - PNEUMONIA, UNSPECIFIED ORGANISM Qualifiers: Pneumonia type: due to unspecified organism Laterality: unspecified laterality Lung location: unspecified part of lung Qualified Code(s): J18.9 - Pneumonia, unspecified organism (2) Cerebral palsy Code(s): G80.9 - CEREBRAL PALSY, UNSPECIFIED (3) Mental retardation Code(s): F79 - UNSPECIFIED INTELLECTUAL DISABILITIES (4) Acute respiratory failure with hypoxia Code(s): J96.01 - ACUTE RESPIRATORY FAILURE WITH HYPOXIA Assessment/Plan Patient more alert today Without respiratory distress, afebrile - continue antibiotics - monitor Hgb, continue monitor vitals
[2017-02-14] MEDS: HEPARIN NA (PORCINE) 5,000 UNITS/ML 1ML VIAL SQ SCH ×2 (00:09→07:01)
[2017-02-14] MEDS: BACLOFEN 10 MG TABLET (FP) GT SCH ×4 (00:09→21:05)
[2017-02-14] MEDS: PIPERACILLIN/TAZOB 3.375 GM 50 ML IVPB SCH ×3 (02:45→18:17)
[2017-02-14] MEDS: ALBUTEROL SO4 2.5/IPRATROPIUM 0.5 INH SOL 3 ML VIAL.NEB. NEB SCH ×4 (06:37→23:08)
[2017-02-14] MEDS ORDERED: PT OWN MED DRAWER 7, Y5N ONE ×2 (06:51→20:48)
[2017-02-14] MEDS: levETIRAcetam 500 MG/5 ML ORAL SOLUTION (UNIT-DOSE CUPS) GT SCH ×2 (07:00→18:45)
[2017-02-14] MEDS: TOPIRAMATE GT SCH ×2 (07:00→18:22)
[2017-02-14] MEDS: OXcarbazepine 300 MG/5 ML 250 ML BULK BOTTLE GT SCH ×2 (07:00→19:06)
[2017-02-14 07:31] LABS: MCH 33.5 pg (25.7-33.7); MCHC 34.1 g/dl (32.0-36.0); MEAN CELL VOLUME 98.1 fl (80-96); MEAN PLT VOLUME 9.1 fl (7.5-11.1); PLATELET COUNT 192 K/MM3 (134-434); RDW 14.9 % (11.6-15.6); WHITE BLOOD COUNT 4.7 K/mm3 (4.0-10.0)
[2017-02-14 08:23] LABS: ANION GAP 7 (8-16); CALCIUM 8.6 mg/dL (8.5-10.1); CO2 26 mmol/L (21-32); CREATININE 1.5 mg/dL (0.55-1.02); GLUCOSE,RANDOM 102 mg/dL (74-106)
--- NOTE | 2017-02-14 09:30 | PN ---
Physical Exam: SUBJECTIVE: Patient seen and examined this AM. Nonverbal. Nurse endorsed no acute events overnight. No seizures. Discontinued brown. UA came back positive, but patient is afebrile and without WBC and on antibiotics. OBJECTIVE: Vital Signs Period Temp Pulse Resp BP Sys/Herman Pulse Ox Last 24 Hr 97.8 F-98.7 F 68-88 18-20 101-112/57-69 96-99 GEN: Pt awake, comfortable HEENT: PERRLA, no cervical LAD CV: S1, S2, RRR, no murmur appreciated LUNG: Lungs are clearing anteriorly ABD: Soft, ND, pt has G tube, normoative BS MSK: 2+ pulses, well perfused, no edema : Pt has visible gross blood clots on pad from vagina NEURO: Exam limited. PERRLA, no facial droop. Laboratory Results - last 24 hr 02/13/17 02/14/17 02/14/17 08:50 07:24 07:24 WBC 4.7 RBC 2.14 L Hgb 7.2 L D Hct 21.0 L MCV 98.1 H MCH 33.5 MCHC 34.1 RDW 14.9 Plt Count 192 D MPV 9.1 Sodium 148 H 146 H Potassium 3.8 4.1 Chloride 115 H 113 H Carbon Dioxide 23 26 Anion Gap 10 7 L BUN 50 H 44 H Creatinine 1.9 H 1.5 H D Random Glucose 92 102 Calcium 8.9 8.6 Active Medications Generic Name Dose Route Start Last Admin Trade Name Freq PRN Reason Stop Dose Admin Albuterol/Ipratropium 1 amp 02/10/17 00:00 02/14/17 06:37 Duoneb - NEB 1 amp QIDR [facility]IS Administration Baclofen 5 mg 02/09/17 22:00 02/14/17 07:00 Lioresal - GT 5 mg TID [facility] Administration Heparin Sodium (Porcine) 5,000 unit 02/09/17 22:00 02/14/17 07:01 Heparin - SQ 5,000 unit TID [facility] Administration Piperacillin Sod/Tazobactam Sod 50 mls @ 100 mls/hr 02/10/17 02:00 02/14/17 02: 45 Zosyn 3.375gm Ivpb (Pre-Docked) IVPB 100 mls/hr Q8H-IV [facility]IS Administration Protocol Lactulose 10 gm 02/09/17 20:49 02/10/17 09:28 Cephulac (Oral Use) GT 10 gm TID PRN Administration CONSTIPATION Levetiracetam 1,500 mg 02/10/17 06:30 02/14/17 07:00 Keppra Oral Solution - GT Not Given BID@0630,1830 [facility] Oxcarbazepine 180 mg 02/10/17 06:30 02/14/17 07:00 Trileptal GT 5 ml DAILY@0630 [facility] Administration Oxcarbazepine 210 mg 02/10/17 19:00 02/13/17 18:26 Trileptal GT 210 mg DAILY@1900 [facility] Administration Scopolamine HBr 1 patch 02/12/17 01:00 02/12/17 02:19 Transderm-Scop - TD 1 patch Q72H [facility] Administration Topiramate 200 mg/ Topiramate 225 mg 02/10/17 06:00 02/14/17 07:00 25 mg GT 225 mg BID@06,18 [facility] Administration ASSESSMENT/PLAN: Pt is a 26yo F from [place] with severe MR, CP, spastic quadriplegia, seizure dz, with recurrent PNAs who presented with sepsis. # Sepsis likely 2/2 PNA - resolving - Aspiration vs HCAP - Clinical status improved - Day 9 of Zosyn 3.375mg IV Q6 (started Feb 05) - Duonebs - Scopolamine patch # Anemia - Likely from menstrual bleeding - Will get Type + Screen - Transfuse 1 unit PRBC - Consent obtained from Pts father Omar Braxton # ALEKSANDR - improving - Free water through NGT at 75cc/hr - Pt's ALEKSANDR is improving gradually - Maintains good UOP - Anca, AntiGBM are negative # Hyperkalemia - improving - Likely from ALEKSANDR - Improved after d/cing K+ through G tube + fluids # Hypernatremia - improving - S/p K+ shifter meds albuterol + bicarb - Improving with increased free water # Tachypnea - resolving - RR in the 20s now, improved - Latest ABG shows no CO2 retention # NAG Metabolic Acidosis - Recent ABG shows met acidosis with resp compensation - Likely from intrinsic kidney disease # Thrombocytopenia - improved - Vaginal bleeding likely normal menses, unlikely pathologic from low PLT - Continue to monitor PLT # Transaminitis - Chronic - Hepatocellular pictures, less likely obstructive - Can f/u outpatient with imaging + autoimmune labs # Hx of Seizures - controlled - Continue in hospital (Keppra, Oxcarb, Topamax, Rectal Diazepam PRN) - Ativan PRN for new seizure - No seizures in house, if pt presents with new seizures, consider Neuro consult # Hx of Spastic CP - Continue Baclofen # Hx of Constipation - Continue Senna and lactulose # FEN - Fluids: None - Electrolytes: Monitor - Nutrition: Continuous tube feeds with increased Free Water to 75cc/hr # Prophylaxis - DVT: Pt is high risk, Heparin SQ TID - GI: Not indicated # Dispo - Consult with ID about antibiotic duration and PO transition - Pt's kidneys are improving with increased free water through GT - Getting [address] Ekta Wan, PGY1 - Internal Medicine Visit type - Emergency Visit Emergency Visit: No - New Patient This patient is new to me today: No - Critical Care Critical Care patient: No - Discharge Referral Referred to [facility] No
--- NOTE | 2017-02-14 14:22 | PN ---
Progress Note, Physician History of Present Illness: Pt seen and examined at bedside. She remains in tele. She is tolerating tube feeds. - Current Medication List Current Medications: Active Medications Albuterol/Ipratropium (Duoneb -) 1 amp NEB QIDR [facility] Last Admin: 02/14/17 11:30 Dose: 1 amp Baclofen (Lioresal -) 5 mg GT TID [facility] Last Admin: 02/14/17 07:00 Dose: 5 mg Heparin Sodium (Porcine) (Heparin -) 5,000 unit SQ TID [facility] Last Admin: 02/14/17 07:01 Dose: 5,000 unit Piperacillin Sod/Tazobactam Sod (Zosyn 3.375gm Ivpb (Pre-Docked)) 50 mls @ 100 mls/hr IVPB Q8H-IV [facility]IS PRN Reason: Protocol Last Admin: 02/14/17 02:45 Dose: 100 mls/hr Lactulose (Cephulac (Oral Use)) 10 gm GT TID PRN PRN Reason: CONSTIPATION Last Admin: 02/10/17 09:28 Dose: 10 gm Levetiracetam (Keppra Oral Solution -) 1,500 mg GT BID@0630,1830 [facility] Last Admin: 02/14/17 07:00 Dose: Not Given Oxcarbazepine (Trileptal) 180 mg GT DAILY@0630 [facility] Last Admin: 02/14/17 07:00 Dose: 5 ml Oxcarbazepine (Trileptal) 210 mg GT DAILY@1900 [facility] Last Admin: 02/13/17 18:26 Dose: 210 mg Scopolamine HBr (Transderm-Scop -) 1 patch TD Q72H [facility] Last Admin: 02/12/17 02:19 Dose: 1 patch Topiramate 200 mg/ Topiramate (25 mg) 225 mg GT BID@06,18 [facility] Last Admin: 02/14/17 07:00 Dose: 225 mg - Objective Vital Signs: Vital Signs Temperature 98.6 F 02/14/17 14:17 Pulse Rate 93 H 02/14/17 14:17 Respiratory Rate 19 02/14/17 14:17 Blood Pressure 111/71 02/14/17 14:17 O2 Sat by Pulse Oximetry (%) 96 02/14/17 09:00 Constitutional: Yes: Calm Eyes: Yes: Conjunctiva Clear HENT: Yes: Atraumatic Cardiovascular: Yes: S1, S2 Respiratory: Yes: On Nasal O2 Gastrointestinal: Yes: Soft Genitourinary: Yes: Traore Present Musculoskeletal: Yes: Muscle Weakness Edema: Yes Edema: LLE: Trace, RLE: Trace Neurological: Yes: Pre-Existing Deficit Labs: CBC, BMP 02/14/17 07:24 02/14/17 07:24 Problem List - Problems (1) Pneumonia Code(s): J18.9 - PNEUMONIA, UNSPECIFIED ORGANISM Qualifiers: Pneumonia type: due to unspecified organism Laterality: unspecified laterality Lung location: unspecified part of lung Qualified Code(s): J18.9 - Pneumonia, unspecified organism (2) Acute respiratory failure with hypoxia Code(s): J96.01 - ACUTE RESPIRATORY FAILURE WITH HYPOXIA (3) ALEKSANDR (acute kidney injury) Code(s): N17.9 - ACUTE KIDNEY FAILURE, UNSPECIFIED Assessment/Plan Current Medications Generic Name Dose Route Start Last Admin Trade Name Freq PRN Reason Stop Dose Admin Albuterol/Ipratropium 1 amp 02/10/17 00:00 02/14/17 11:30 Duoneb - NEB 1 amp QIDR [facility] Administration Baclofen 5 mg 02/09/17 22:00 02/14/17 07:00 Lioresal - GT 5 mg TID [facility] Administration Heparin Sodium (Porcine) 5,000 unit 02/09/17 22:00 02/14/17 07:01 Heparin - SQ 5,000 unit TID [facility] Administration Piperacillin Sod/Tazobactam Sod 50 mls @ 100 mls/hr 02/10/17 02:00 02/14/17 02: 45 Zosyn 3.375gm Ivpb (Pre-Docked) IVPB 100 mls/hr Q8H-IV [facility] Administration Protocol Lactulose 10 gm 02/09/17 20:49 02/10/17 09:28 Cephulac (Oral Use) GT 10 gm TID PRN Administration CONSTIPATION Levetiracetam 1,500 mg 02/10/17 06:30 02/14/17 07:00 Keppra Oral Solution - GT Not Given BID@0630,1830 [facility] Oxcarbazepine 180 mg 02/10/17 06:30 02/14/17 07:00 Trileptal GT 5 ml DAILY@0630 [facility] Administration Oxcarbazepine 210 mg 02/10/17 19:00 02/13/17 18:26 Trileptal GT 210 mg DAILY@1900 [facility] Administration Scopolamine HBr 1 patch 02/12/17 01:00 02/12/17 02:19 Transderm-Scop - TD 1 patch Q72H [facility] Administration Topiramate 200 mg/ Topiramate 225 mg 02/10/17 06:00 02/14/17 07:00 25 mg GT 225 mg BID@06,18 [facility] Administration Laboratory Tests 02/08/17 17:15 c-ANCA <1:20 Proteinase 3 (PR3) <3.5 p-ANCA <1:20 Atypical p-ANCA <1:20 Myeloperoxidase Ab <9.0 Glomerular Base Memb Ab 6 Impression 1. ALEKSANDR 2. sepsis 3. pna 4. severe developmental delay 5. epilepsy 6. venous congestion 7. hypernatremia Plan - renal function is improving, her baseline is about 0.3 - sodium is improving - cont with tube feeds - renal workup negative so far - likely resolving ATN - cont abx - will follow Dr Cesar
[2017-02-14 14:33] LABS: URINE BILIRUBIN NEGATIVE (NEGATIVE); URINE BLOOD 3+ (NEGATIVE); URINE COLOR DK. RED; URINE GLUCOSE (UA) TRACE (NEGATIVE); URINE KETONE 1+ (NEGATIVE)
[2017-02-14 14:39] LABS: URINE APPEARANCE HAZY; URINE LEUK ESTERASE 2+ (NEGATIVE); URINE NITRITE POSITIVE (NEGATIVE); URINE PROTEIN 3+ (NEGATIVE)
[2017-02-14 14:42] LABS: URINE BACTERIA MODERATE /hpf (NONE SEEN); URINE RBC >100 /hpf (0-3); URINE WBC 25-35 /hpf (3-5)
--- NOTE | 2017-02-14 14:50 | PN ---
Progress Note, Physician History of Present Illness: pulmonary more awake,-resp distress - Current Medication List Current Medications: Active Medications Albuterol/Ipratropium (Duoneb -) 1 amp NEB QIDR [facility] Last Admin: 02/14/17 11:30 Dose: 1 amp Baclofen (Lioresal -) 5 mg GT TID [facility] Last Admin: 02/14/17 07:00 Dose: 5 mg Heparin Sodium (Porcine) (Heparin -) 5,000 unit SQ TID [facility] Last Admin: 02/14/17 07:01 Dose: 5,000 unit Piperacillin Sod/Tazobactam Sod (Zosyn 3.375gm Ivpb (Pre-Docked)) 50 mls @ 100 mls/hr IVPB Q8H-IV [facility]IS PRN Reason: Protocol Last Admin: 02/14/17 02:45 Dose: 100 mls/hr Lactulose (Cephulac (Oral Use)) 10 gm GT TID PRN PRN Reason: CONSTIPATION Last Admin: 02/10/17 09:28 Dose: 10 gm Levetiracetam (Keppra Oral Solution -) 1,500 mg GT BID@0630,1830 [facility] Last Admin: 02/14/17 07:00 Dose: Not Given Oxcarbazepine (Trileptal) 180 mg GT DAILY@0630 [facility] Last Admin: 02/14/17 07:00 Dose: 5 ml Oxcarbazepine (Trileptal) 210 mg GT DAILY@1900 [facility] Last Admin: 02/13/17 18:26 Dose: 210 mg Scopolamine HBr (Transderm-Scop -) 1 patch TD Q72H [facility] Last Admin: 02/12/17 02:19 Dose: 1 patch Topiramate 200 mg/ Topiramate (25 mg) 225 mg GT BID@06,18 [facility] Last Admin: 02/14/17 07:00 Dose: 225 mg - Objective Vital Signs: Vital Signs Temperature 98.6 F 02/14/17 14:17 Pulse Rate 93 H 02/14/17 14:17 Respiratory Rate 19 02/14/17 14:17 Blood Pressure 111/71 02/14/17 14:17 O2 Sat by Pulse Oximetry (%) 96 02/14/17 09:00 Constitutional: Yes: Well Nourished, Calm Eyes: Yes: WNL HENT: Yes: WNL Neck: Yes: WNL Cardiovascular: Yes: Regular Rate and Rhythm, S1, S2 Respiratory: Yes: Rhonchi (few scattered rhonchi) Gastrointestinal: Yes: Normal Bowel Sounds, Soft Extremities: Yes: WNL Edema: No Labs: CBC, BMP 02/14/17 07:24 02/14/17 07:24 Problem List - Problems (1) ALEKSANDR (acute kidney injury) Code(s): N17.9 - ACUTE KIDNEY FAILURE, UNSPECIFIED (2) Pneumonia Code(s): J18.9 - PNEUMONIA, UNSPECIFIED ORGANISM Qualifiers: Pneumonia type: due to unspecified organism Laterality: unspecified laterality Lung location: unspecified part of lung Qualified Code(s): J18.9 - Pneumonia, unspecified organism (3) DVT prophylaxis Code(s): [id number] - (4) Cerebral palsy Code(s): G80.9 - CEREBRAL PALSY, UNSPECIFIED (5) Functional quadriplegia Code(s): R53.2 - FUNCTIONAL QUADRIPLEGIA (6) Mental retardation Code(s): F79 - UNSPECIFIED INTELLECTUAL DISABILITIES (7) Seizure disorder Code(s): G40.909 - EPILEPSY, UNSP, NOT INTRACTABLE, WITHOUT STATUS EPILEPTICUS Assessment/Plan A/P Pneumonia Sepsis Acute Kidney Injury improving Mental Retardation Seizure Disorder Anemia - continue antibiotics - monitor urine output, creatinine - aspiration precautions - O2 to keep SpO2 >90% - DVT prophylaxis DR MATHEWS
--- NOTE | 2017-02-14 14:59 | PN ---
Progress Note, Physician History of Present Illness: much more awake and alert looks calm - Current Medication List Current Medications: Active Medications Albuterol/Ipratropium (Duoneb -) 1 amp NEB QIDR [facility] Last Admin: 02/14/17 11:30 Dose: 1 amp Baclofen (Lioresal -) 5 mg GT TID [facility] Last Admin: 02/14/17 07:00 Dose: 5 mg Heparin Sodium (Porcine) (Heparin -) 5,000 unit SQ TID [facility] Last Admin: 02/14/17 07:01 Dose: 5,000 unit Piperacillin Sod/Tazobactam Sod (Zosyn 3.375gm Ivpb (Pre-Docked)) 50 mls @ 100 mls/hr IVPB Q8H-IV [facility]IS PRN Reason: Protocol Last Admin: 02/14/17 02:45 Dose: 100 mls/hr Lactulose (Cephulac (Oral Use)) 10 gm GT TID PRN PRN Reason: CONSTIPATION Last Admin: 02/10/17 09:28 Dose: 10 gm Levetiracetam (Keppra Oral Solution -) 1,500 mg GT BID@0630,1830 [facility] Last Admin: 02/14/17 07:00 Dose: Not Given Oxcarbazepine (Trileptal) 180 mg GT DAILY@0630 [facility] Last Admin: 02/14/17 07:00 Dose: 5 ml Oxcarbazepine (Trileptal) 210 mg GT DAILY@1900 [facility] Last Admin: 02/13/17 18:26 Dose: 210 mg Scopolamine HBr (Transderm-Scop -) 1 patch TD Q72H [facility] Last Admin: 02/12/17 02:19 Dose: 1 patch Topiramate 200 mg/ Topiramate (25 mg) 225 mg GT BID@06,18 [facility] Last Admin: 02/14/17 07:00 Dose: 225 mg - Objective Vital Signs: Vital Signs Temperature 98.6 F 02/14/17 14:17 Pulse Rate 93 H 02/14/17 14:17 Respiratory Rate 19 02/14/17 14:17 Blood Pressure 111/71 02/14/17 14:17 O2 Sat by Pulse Oximetry (%) 96 02/14/17 09:00 Constitutional: Yes: No Distress, Calm Cardiovascular: Yes: Regular Rate and Rhythm Respiratory: Yes: On Nasal O2, Poor Air Entry, Other Gastrointestinal: Yes: Normal Bowel Sounds, Soft, Other (peg in place) Musculoskeletal: Yes: Other Extremities: Yes: Other Neurological: Yes: Alert, Other Psychiatric: Yes: Alert Labs: CBC, BMP 02/14/17 07:24 02/14/17 07:24 Assessment/Plan Problem List - Problems (1) Pneumonia Code(s): J18.9 - PNEUMONIA, UNSPECIFIED ORGANISM Qualifiers: Pneumonia type: due to unspecified organism Laterality: unspecified laterality Lung location: unspecified part of lung Qualified Code(s): J18.9 - Pneumonia, unspecified organism (2) Acute respiratory failure with hypoxia Code(s): J96.01 - ACUTE RESPIRATORY FAILURE WITH HYPOXIA (3) Cerebral palsy Code(s): G80.9 - CEREBRAL PALSY, UNSPECIFIED (4) Functional quadriplegia Code(s): R53.2 - FUNCTIONAL QUADRIPLEGIA (5) Mental retardation Code(s): F79 - UNSPECIFIED INTELLECTUAL DISABILITIES (6) Seizure disorder Code(s): G40.909 - EPILEPSY, UNSP, NOT INTRACTABLE, WITHOUT STATUS EPILEPTICUS patient s renal function has detoriated wi plan continue current mgmt patient improving will evaluate tomorrow will decide about abx
--- NOTE | 2017-02-14 15:07 | PN ---
Teaching Attending Note Name of Resident: Ekta Wan ATTENDING PHYSICIAN STATEMENT I saw and evaluated the patient. I reviewed the resident's note and discussed the case with the resident. I agree with the resident's findings and plan as documented. SUBJECTIVE: Patient is having heavy period. OBJECTIVE: Vital Signs Temperature 98.6 F 02/14/17 14:17 Pulse Rate 93 H 02/14/17 14:17 Respiratory Rate 19 02/14/17 14:17 Blood Pressure 111/71 02/14/17 14:17 O2 Sat by Pulse Oximetry (%) 96 02/14/17 09:00 CBCD WBC 4.7 K/mm3 (4.0-10.0) 02/14/17 07:24 RBC 2.14 M/mm3 (3.60-5.2) L 02/14/17 07:24 Hgb 7.2 GM/dL (10.7-15.3) L D 02/14/17 07:24 Hct 21.0 % (32.4-45.2) L 02/14/17 07:24 MCV 98.1 fl (80-96) H 02/14/17 07:24 MCHC 34.1 g/dl (32.0-36.0) 02/14/17 07:24 RDW 14.9 % (11.6-15.6) 02/14/17 07:24 Plt Count 192 K/MM3 (134-434) D 02/14/17 07:24 MPV 9.1 fl (7.5-11.1) 02/14/17 07:24 CMP Sodium 146 mmol/L (136-145) H 02/14/17 07:24 Potassium 4.1 mmol/L (3.5-5.1) 02/14/17 07:24 Chloride 113 mmol/L (98-107) H 02/14/17 07:24 Carbon Dioxide 26 mmol/L (21-32) 02/14/17 07:24 Anion Gap 7 (8-16) L 02/14/17 07:24 BUN 44 mg/dL (7-18) H 02/14/17 07:24 Creatinine 1.5 mg/dL (0.55-1.02) H D 02/14/17 07:24 Creat Clearance w eGFR 25.44 (>60) 02/12/17 06:35 Random Glucose 102 mg/dL (74-106) 02/14/17 07:24 Calcium 8.6 mg/dL (8.5-10.1) 02/14/17 07:24 Total Bilirubin 0.4 mg/dL (0.2-1.0) 02/12/17 06:35 AST 52 U/L (15-37) H 02/12/17 06:35 ALT 92 U/L (12-78) H 02/12/17 06:35 Alkaline Phosphatase 290 U/L (45-117) H 02/12/17 06:35 Total Protein 5.6 g/dl (6.4-8.2) L 02/12/17 06:35 Albumin 2.1 g/dl (3.4-5.0) L 02/12/17 06:35 Current Medications Generic Name Dose Route Start Last Admin Trade Name Freq PRN Reason Stop Dose Admin Albuterol/Ipratropium 1 amp 02/10/17 00:00 02/14/17 11:30 Duoneb - NEB 1 amp QIDR [facility] Administration Baclofen 5 mg 02/09/17 22:00 02/14/17 07:00 Lioresal - GT 5 mg TID [facility] Administration Heparin Sodium (Porcine) 5,000 unit 02/09/17 22:00 02/14/17 07:01 Heparin - SQ 5,000 unit TID [facility] Administration Piperacillin Sod/Tazobactam Sod 50 mls @ 100 mls/hr 02/10/17 02:00 02/14/17 02: 45 Zosyn 3.375gm Ivpb (Pre-Docked) IVPB 100 mls/hr Q8H-IV [facility] Administration Protocol Lactulose 10 gm 02/09/17 20:49 02/10/17 09:28 Cephulac (Oral Use) GT 10 gm TID PRN Administration CONSTIPATION Levetiracetam 1,500 mg 02/10/17 06:30 02/14/17 07:00 Keppra Oral Solution - GT Not Given BID@0630,1830 [facility] Oxcarbazepine 180 mg 02/10/17 06:30 02/14/17 07:00 Trileptal GT 5 ml DAILY@0630 [facility] Administration Oxcarbazepine 210 mg 02/10/17 19:00 02/13/17 18:26 Trileptal GT 210 mg DAILY@1900 [facility] Administration Scopolamine HBr 1 patch 02/12/17 01:00 02/12/17 02:19 Transderm-Scop - TD 1 patch Q72H [facility] Administration Topiramate 200 mg/ Topiramate 225 mg 02/10/17 06:00 02/14/17 07:00 25 mg GT 225 mg BID@06,18 [facility] Administration Home Medications Medication Instructions Recorded Albuterol 0.083% Nebulizer Sobeida 1 neb NEB PRN PRN 02/05/17 [Ventolin 0.083%] Baclofen 5 mg GT TID 02/05/17 Cholecalciferol (Vitamin D3) 2,000 unit GT DAILY 02/05/17 [Vitamin D3] Diazepam [Diastat Acudial] 10 mg RC PRN PRN 02/05/17 Ipratropium/Albuterol Sulfate 3 ml IH Q4HWA PRN 02/05/17 [Iprat-Albut 0.5-3(2.5) mg/3 ml] Lactulose 15 gm GT TID 02/05/17 Levetiracetam 1,500 mg GT BID 02/05/17 Multivit-Min/FA/Lycopen/Lutein 1 each PO DAILY 02/05/17 [Vitrum 50+ Senior Tablet] Nystatin Ointment [Mycostatin 1 applic TP PRN PRN 02/05/17 Ointment -] OXcarbazepine [Trileptal] 180 mg GT DAILY 02/05/17 OXcarbazepine [Trileptal] 210 mg GT HS 02/05/17 Topiramate 200 mg GT BID 02/05/17 Topiramate [Trokendi Xr] 25 mg GT BID 02/05/17 PE: per resident's note BRIAN Traore discontinued ASSESSMENT AND PLAN: 26 y/o lady with h/o severe mental retardation ,cerebral palsy quadriplegia, recurrent PNAs , and seizure disorder who was sent from [place] with increased secretions and tachypnea. She was found to be septic with hypothermia # Heavy menstrual bleed, s/p one unit of PRBC transfusion, repeat level in am. # s/p Acute Hyperkalemia resolved now 7.0-->4.2--> 3.8-->4.1 today , s/p Calcium gluconate, stat albuterol, insulin, d25,bicarb 1/2 and insulin iv 1/2 the dose decreased the tube feeding due to potassium in the feeding, Kayexalate 30gm now. #Acute Hypernatremia improving (153-->148--146) post increasing the free fluid to 75cc/hr, will repeat the level in am # Sepsis: likely due to aspiration PNA . On IV Antibiotic zosyn renally dosed and s/p Vanco, no leukocytosis today. # Aspiration Pneumonia on IV zosyn continue, ID on the case # ALEKSANDR: improving cr 3.1-->2.3-->1.9-->1.5 today , most likely due to ATN from decreased perfusion . Increased free fluid from the tube feeding to 75cc/hr total volume of 1800 for now. repeat the level in am. # H/o Seizure:no recurrence of seizure , cont. current meds # Chronic transaminitis improving as well : could be due to medications vs underlying liver disease ( Autoimmune hepatitis, PSC, ...etc ) . hepatitis serology was neg last admission ;stable LFTS for now. complete w.u as an out pt # Nutrition on Peg tube feeding and continue the free fluid water. DVT Px: SCDs, stopped heparin since menstruating heavily
[2017-02-15] MEDS: SCOPOLAMINE HYDROBROMIDE 1 PATCH PATCH.TD72 TD SCH (01:23)
[2017-02-15] MEDS: PIPERACILLIN/TAZOB 3.375 GM 50 ML IVPB SCH ×2 (01:23→09:04)
[2017-02-15] MEDS ORDERED: PT OWN MED DRAWER 7, Y5N ONE ×3 (05:51→22:32)
[2017-02-15] MEDS: BACLOFEN 10 MG TABLET (FP) GT SCH ×3 (06:09→22:34)
[2017-02-15] MEDS: TOPIRAMATE GT SCH ×2 (06:09→17:39)
[2017-02-15] MEDS: OXcarbazepine 300 MG/5 ML 250 ML BULK BOTTLE GT SCH ×3 (06:09→19:12)
[2017-02-15] MEDS: levETIRAcetam 500 MG/5 ML ORAL SOLUTION (UNIT-DOSE CUPS) GT SCH ×2 (06:10→17:39)
[2017-02-15 08:00] LABS: MCH 31.8 pg (25.7-33.7); MCHC 33.7 g/dl (32.0-36.0); MEAN CELL VOLUME 94.5 fl (80-96); PLATELET COUNT 216 K/MM3 (134-434); RDW 15.8 % (11.6-15.6); WHITE BLOOD COUNT 4.5 K/mm3 (4.0-10.0)
[2017-02-15 08:26] LABS: ALBUMIN 2.1 g/dl (3.4-5.0); ANION GAP 10 (8-16); BILIRUBIN,TOTAL 0.4 mg/dL (0.2-1.0); CALCIUM 8.6 mg/dL (8.5-10.1); CO2 24 mmol/L (21-32); CREATININE 1.2 mg/dL (0.55-1.02); GLUCOSE,RANDOM 129 mg/dL (74-106); SGOT/AST 20 U/L (15-37); SGPT/ALT 50 U/L (12-78); TOT PROT 5.6 g/dl (6.4-8.2)
[2017-02-15 08:27] LABS: ALK PHOS 317 U/L (45-117)
--- NOTE | 2017-02-15 09:47 | PN ---
Physical Exam: SUBJECTIVE: Patient seen and examined this AM. Pt is nonverbal, but looks more awake today. Pt still having menstrual bleeding. No seizures. No acute events overnight. S/p 1u PRBC OBJECTIVE: Vital Signs Period Temp Pulse Resp BP Sys/Herman Pulse Ox Last 24 Hr 96.4 F-99.2 F 63-108 19-20 108-162/62-86 97-98 GEN: Pt is more awake, at baseline, looks comfortable HEENT: PERRLA, no cervical LAD CV: S1, S2, RRR, no murmur appreciated LUNG: Lungs are clear anteriorly ABD: Soft, ND, pt has G tube, normoative BS MSK: 2+ pulses, well perfused, no edema : Pt has visible gross blood clots on pad from vagina NEURO: Exam limited. PERRLA, no facial droop. CBC, BMP 02/15/17 07:15 02/15/17 07:15 Active Medications Generic Name Dose Route Start Last Admin Trade Name Freq PRN Reason Stop Dose Admin Albuterol/Ipratropium 1 amp 02/10/17 00:00 02/14/17 23:08 Duoneb - NEB 1 amp QIDR [facility] Administration Baclofen 5 mg 02/09/17 22:00 02/15/17 06:09 Lioresal - GT 5 mg TID [facility] Administration Heparin Sodium (Porcine) 5,000 unit 02/09/17 22:00 02/14/17 07:01 Heparin - SQ 5,000 unit TID [facility] Administration Piperacillin Sod/Tazobactam Sod 50 mls @ 100 mls/hr 02/10/17 02:00 02/15/17 09: 04 Zosyn 3.375gm Ivpb (Pre-Docked) IVPB 100 mls/hr Q8H-IV [facility] Administration Protocol Lactulose 10 gm 02/09/17 20:49 02/10/17 09:28 Cephulac (Oral Use) GT 10 gm TID PRN Administration CONSTIPATION Levetiracetam 1,500 mg 02/10/17 06:30 02/15/17 06:10 Keppra Oral Solution - GT 1,500 mg BID@0630,1830 [facility] Administration Oxcarbazepine 180 mg 02/10/17 06:30 02/15/17 06:09 Trileptal GT 5 ml DAILY@0630 [facility] Administration Oxcarbazepine 210 mg 02/10/17 19:00 02/14/17 19:06 Trileptal GT 210 mg DAILY@1900 [facility] Administration Scopolamine HBr 1 patch 02/12/17 01:00 02/15/17 01:23 Transderm-Scop - TD 1 patch Q72H [facility] Administration Topiramate 200 mg/ Topiramate 225 mg 02/10/17 06:00 02/15/17 06:09 25 mg GT 225 mg BID@,18 [facility] Administration ASSESSMENT/PLAN: Pt is a 26yo F from [place] with severe MR, CP, spastic quadriplegia, seizure dz, with recurrent PNAs who presented with sepsis secondary to PNA. # Sepsis likely 2/2 PNA - resolving - Aspiration vs HCAP - Clinical status improved - Sputum shows Pseudomonas + Serratia, sensitive to Zosyn - Day 10 of Zosyn 3.375mg IV Q6 (started Feb 05) - Tachypnea resolved - Duonebs - Scopolamine patch # Anemia - improved - Likely from menstrual bleeding - After 1u PRBC, Hgb improved to 8.1 - Consent obtained from Pts father # ALEKSANDR - improving - Free water through NGT at 75cc/hr - Pt's ALEKSANDR is improving gradually - Maintains good UOP - Anca, AntiGBM are negative # Hyperkalemia - improving - Likely from ALEKSANDR - Improved after d/cing K+ through G tube + fluids # Hypernatremia - improving - S/p K+ shifter meds albuterol + bicarb - Improving with increased free water # Thrombocytopenia - improved - Vaginal bleeding likely normal menses, unlikely pathologic from low PLT - Continue to monitor PLT # Transaminitis - Chronic - Hepatocellular pictures, less likely obstructive - Can f/u outpatient with imaging + autoimmune labs # Hx of Seizures - controlled - Continue in hospital (Keppra, Oxcarb, Topamax, Rectal Diazepam PRN) # Hx of Spastic CP - Continue Baclofen # Hx of Constipation - Continue Senna and lactulose # FEN - Fluids: Getting fluids through g tube - Electrolytes: Monitor - Nutrition: Continuous tube feeds with increased Free Water to 75cc/hr # Prophylaxis - DVT: Pt is high risk, Heparin SQ TID - GI: Not indicated # Dispo - Talk with ID about PO antibiotics at discharge - Otherwise, stable for d.c likely today or tmrw Dr. Ekta Wan, PGY1 - Internal Medicine Visit type - Emergency Visit Emergency Visit: No - New Patient This patient is new to me today: No - Critical Care Critical Care patient: No - Discharge Referral Referred to [facility] No
[2017-02-15] MEDS: ALBUTEROL SO4 2.5/IPRATROPIUM 0.5 INH SOL 3 ML VIAL.NEB. NEB SCH ×3 (11:10→23:15)
--- NOTE | 2017-02-15 13:09 | PN ---
Progress Note, Physician History of Present Illness: pulmonary alert,-resp distress - Current Medication List Current Medications: Active Medications Albuterol/Ipratropium (Duoneb -) 1 amp NEB QIDR [facility] Last Admin: 02/15/17 11:10 Dose: 1 amp Baclofen (Lioresal -) 5 mg GT TID [facility] Last Admin: 02/15/17 06:09 Dose: 5 mg Heparin Sodium (Porcine) (Heparin -) 5,000 unit SQ TID [facility] Last Admin: 02/14/17 07:01 Dose: 5,000 unit Piperacillin Sod/Tazobactam (Sod 3.375 gm/ Dextrose) 50 mls @ 100 mls/hr IVPB Q8H-IV [facility] PRN Reason: Protocol Stop: 02/16/17 18:29 Lactulose (Cephulac (Oral Use)) 10 gm GT TID PRN PRN Reason: CONSTIPATION Last Admin: 02/10/17 09:28 Dose: 10 gm Levetiracetam (Keppra Oral Solution -) 1,500 mg GT BID@0630,1830 [facility] Last Admin: 02/15/17 06:10 Dose: 1,500 mg Oxcarbazepine (Trileptal) 180 mg GT DAILY@0630 [facility] Last Admin: 02/15/17 06:09 Dose: 5 ml Oxcarbazepine (Trileptal) 210 mg GT DAILY@1900 [facility] Last Admin: 02/14/17 19:06 Dose: 210 mg Scopolamine HBr (Transderm-Scop -) 1 patch TD Q72H [facility] Last Admin: 02/15/17 01:23 Dose: 1 patch Topiramate 200 mg/ Topiramate (25 mg) 225 mg GT BID@06,18 [facility] Last Admin: 02/15/17 06:09 Dose: 225 mg - Objective Vital Signs: Vital Signs Temperature 96.4 F L 02/15/17 06:00 Pulse Rate 56 L 02/15/17 10:00 Respiratory Rate 20 02/15/17 10:00 Blood Pressure 105/55 02/15/17 10:00 O2 Sat by Pulse Oximetry (%) 98 02/15/17 10:00 Constitutional: Yes: Well Nourished, Calm Eyes: Yes: WNL HENT: Yes: WNL Neck: Yes: WNL Cardiovascular: Yes: Regular Rate and Rhythm, S1, S2 Respiratory: Yes: Rhonchi (few scattered rhonchi) Gastrointestinal: Yes: Normal Bowel Sounds, Soft Extremities: Yes: WNL Edema: No Labs: CBC, BMP 02/15/17 07:15 02/15/17 07:15 Problem List - Problems (1) ALEKSANDR (acute kidney injury) Code(s): N17.9 - ACUTE KIDNEY FAILURE, UNSPECIFIED (2) Pneumonia Code(s): J18.9 - PNEUMONIA, UNSPECIFIED ORGANISM Qualifiers: Pneumonia type: due to unspecified organism Laterality: unspecified laterality Lung location: unspecified part of lung Qualified Code(s): J18.9 - Pneumonia, unspecified organism (3) DVT prophylaxis Code(s): [id number] - (4) Cerebral palsy Code(s): G80.9 - CEREBRAL PALSY, UNSPECIFIED (5) Functional quadriplegia Code(s): R53.2 - FUNCTIONAL QUADRIPLEGIA (6) Mental retardation Code(s): F79 - UNSPECIFIED INTELLECTUAL DISABILITIES (7) Seizure disorder Code(s): G40.909 - EPILEPSY, UNSP, NOT INTRACTABLE, WITHOUT STATUS EPILEPTICUS Assessment/Plan A/P Pneumonia Sepsis Acute Kidney Injury improving Mental Retardation Seizure Disorder Anemia - continue antibiotics - monitor urine output, creatinine - aspiration precautions - O2 to keep SpO2 >90% - DVT prophylaxis DR MTAHEWS
--- NOTE | 2017-02-15 15:07 | PN ---
Teaching Attending Note Name of Resident: Ekta Wan ATTENDING PHYSICIAN STATEMENT I saw and evaluated the patient. I reviewed the resident's note and discussed the case with the resident. I agree with the resident's findings and plan as documented. SUBJECTIVE: Patient is doing well, no acute distress s/p RBC transfusion. OBJECTIVE: Vital Signs Temperature 96.4 F L 02/15/17 06:00 Pulse Rate 56 L 02/15/17 10:00 Respiratory Rate 20 02/15/17 10:00 Blood Pressure 105/55 02/15/17 10:00 O2 Sat by Pulse Oximetry (%) 98 02/15/17 10:00 CBCD WBC 4.5 K/mm3 (4.0-10.0) 02/15/17 07:15 RBC 2.53 M/mm3 (3.60-5.2) L 02/15/17 07:15 Hgb 8.1 GM/dL (10.7-15.3) L D 02/15/17 07:15 Hct 23.9 % (32.4-45.2) L 02/15/17 07:15 MCV 94.5 fl (80-96) 02/15/17 07:15 MCHC 33.7 g/dl (32.0-36.0) 02/15/17 07:15 RDW 15.8 % (11.6-15.6) H 02/15/17 07:15 Plt Count 216 K/MM3 (134-434) 02/15/17 07:15 MPV 9.0 fl (7.5-11.1) 02/15/17 07:15 CMP Sodium 146 mmol/L (136-145) H 02/15/17 07:15 Potassium 3.5 mmol/L (3.5-5.1) 02/15/17 07:15 Chloride 112 mmol/L (98-107) H 02/15/17 07:15 Carbon Dioxide 24 mmol/L (21-32) 02/15/17 07:15 Anion Gap 10 (8-16) 02/15/17 07:15 BUN 36 mg/dL (7-18) H 02/15/17 07:15 Creatinine 1.2 mg/dL (0.55-1.02) H 02/15/17 07:15 Creat Clearance w eGFR 53.89 (>60) 02/15/17 07:15 Random Glucose 129 mg/dL (74-106) H D 02/15/17 07:15 Calcium 8.6 mg/dL (8.5-10.1) 02/15/17 07:15 Total Bilirubin 0.4 mg/dL (0.2-1.0) 02/15/17 07:15 AST 20 U/L (15-37) D 02/15/17 07:15 ALT 50 U/L (12-78) D 02/15/17 07:15 Alkaline Phosphatase 317 U/L (45-117) H 02/15/17 07:15 Total Protein 5.6 g/dl (6.4-8.2) L 02/15/17 07:15 Albumin 2.1 g/dl (3.4-5.0) L 02/15/17 07:15 Current Medications Generic Name Dose Route Start Last Admin Trade Name Freq PRN Reason Stop Dose Admin Albuterol/Ipratropium 1 amp 02/10/17 00:00 02/15/17 11:10 Duoneb - NEB 1 amp QIDR [facility] Administration Baclofen 5 mg 02/09/17 22:00 02/15/17 06:09 Lioresal - GT 5 mg TID [facility] Administration Heparin Sodium (Porcine) 5,000 unit 02/09/17 22:00 02/14/17 07:01 Heparin - SQ 5,000 unit TID [facility] Administration Piperacillin Sod/Tazobactam 50 mls @ 100 mls/hr 02/15/17 11:39 Sod 3.375 gm/ Dextrose IVPB 02/16/17 18:29 Q8H-IV [facility] Protocol Lactulose 10 gm 02/09/17 20:49 02/10/17 09:28 Cephulac (Oral Use) GT 10 gm TID PRN Administration CONSTIPATION Levetiracetam 1,500 mg 02/10/17 06:30 02/15/17 06:10 Keppra Oral Solution - GT 1,500 mg BID@0630,1830 [facility] Administration Oxcarbazepine 180 mg 02/10/17 06:30 02/15/17 06:09 Trileptal GT 5 ml DAILY@0630 [facility] Administration Oxcarbazepine 210 mg 02/10/17 19:00 02/14/17 19:06 Trileptal GT 210 mg DAILY@1900 [facility] Administration Scopolamine HBr 1 patch 02/12/17 01:00 02/15/17 01:23 Transderm-Scop - TD 1 patch Q72H [facility] Administration Topiramate 200 mg/ Topiramate 225 mg 02/10/17 06:00 02/15/17 06:09 25 mg GT 225 mg BID@06,18 [facility] Administration Home Medications Medication Instructions Recorded Albuterol 0.083% Nebulizer Sobeida 1 neb NEB PRN PRN 02/05/17 [Ventolin 0.083%] Baclofen 5 mg GT TID 02/05/17 Cholecalciferol (Vitamin D3) 2,000 unit GT DAILY 02/05/17 [Vitamin D3] Diazepam [Diastat Acudial] 10 mg RC PRN PRN 02/05/17 Ipratropium/Albuterol Sulfate 3 ml IH Q4HWA PRN 02/05/17 [Iprat-Albut 0.5-3(2.5) mg/3 ml] Lactulose 15 gm GT TID 02/05/17 Levetiracetam 1,500 mg GT BID 02/05/17 Multivit-Min/FA/Lycopen/Lutein 1 each PO DAILY 02/05/17 [Vitrum 50+ Senior Tablet] Nystatin Ointment [Mycostatin 1 applic TP PRN PRN 02/05/17 Ointment -] OXcarbazepine [Trileptal] 180 mg GT DAILY 02/05/17 OXcarbazepine [Trileptal] 210 mg GT HS 02/05/17 Topiramate 200 mg GT BID 02/05/17 Topiramate [Trokendi Xr] 25 mg GT BID 02/05/17 Microbiology 02/14/17 14:00 Urine - Urine [place] Urine Culture - Preliminary Non Lactose Fermenting Gnb 02/05/17 13:35 Blood - Peripheral Venous Blood Culture - Final NO GROWTH AFTER 5 DAYS INCUBATION 02/05/17 13:40 Blood - Peripheral Venous Blood Culture - Final NO GROWTH AFTER 5 DAYS INCUBATION 02/07/17 06:00 Sputum - Expectorated Gram Stain - Final 02/07/17 06:00 Sputum - Expectorated Sputum Culture - Final Serratia Marcescens Pseudomonas Aeruginosa PE: per resident's note SCDS [place] discontinued ASSESSMENT AND PLAN: 26 y/o lady with h/o severe mental retardation ,cerebral palsy quadriplegia, recurrent PNAs , and seizure disorder who was sent from [place] with increased secretions and tachypnea. She was found to be septic with hypothermia # Heavy menstrual bleed CONTINUES , s/p one unit of PRBC transfusion, Hemoglobin is 7.2-- 8.1 now from 7.2 , FOLLOW h/h in am. # s/p Acute Hyperkalemia resolved now 7.0-->4.2--> 3.8-->4.1-->3.5 today will continue the tube feeding, s/p Calcium gluconate, stat albuterol, insulin, d25, bicarb 1/2 and insulin iv 1/2 the dose decreased the tube feeding due to potassium in the feeding, Kayexalate 30gm now. REPEAT THE LEVEL IN AM #Acute Hypernatremia improving (153-->148--146-->146 TODAY) post increasing the free fluid to 75cc/hr, will repeat the level in am # S/P Sepsis: likely due to aspiration PNA . On IV Antibiotic zosyn renally dosed and s/p Vanco, no leukocytosis today. WILL CHECK WITH ID REGARDING THE DISCHARGE THE PATIENT BACK TO [facility] WITH ORAL ANTIBIOTIC # Aspiration Pneumonia on IV zosyn continue, ID on the case # ALEKSANDR: improving cr 3.1-->2.3-->1.9-->1.5-->1.2 today , most likely due to ATN DUE TO SEPSIS . Increased free fluid from the tube feeding to 75cc/hr total volume of 1800 for now. repeat the level in am. # H/o Seizure:no recurrence of seizure , cont. current meds # Chronic transaminitis improving : POSSIBLE DUE TO medications vs underlying liver disease ( Autoimmune hepatitis, PSC, ...etc ) . hepatitis serology was neg last admission ;stable LFTS for now. complete w.u as an out pt # Nutrition on Peg tube feeding and continue the free fluid water. DVT Px: SCDs, stopped heparin since menstruating heavily POSSIBEL DISCHARGE IN AM WITH ORAL ANTIBIOTIC , WILL DISCUSS WITH ID AND ID'S RECOMMENDATION
--- NOTE | 2017-02-15 15:08 | PN ---
Progress Note, Physician History of Present Illness: Pt seen and examined at bedside. No new events. - Current Medication List Current Medications: Active Medications Albuterol/Ipratropium (Duoneb -) 1 amp NEB QIDR [facility] Last Admin: 02/15/17 11:10 Dose: 1 amp Baclofen (Lioresal -) 5 mg GT TID [facility] Last Admin: 02/15/17 06:09 Dose: 5 mg Heparin Sodium (Porcine) (Heparin -) 5,000 unit SQ TID [facility] Last Admin: 02/14/17 07:01 Dose: 5,000 unit Piperacillin Sod/Tazobactam (Sod 3.375 gm/ Dextrose) 50 mls @ 100 mls/hr IVPB Q8H-IV [facility] PRN Reason: Protocol Stop: 02/16/17 18:29 Lactulose (Cephulac (Oral Use)) 10 gm GT TID PRN PRN Reason: CONSTIPATION Last Admin: 02/10/17 09:28 Dose: 10 gm Levetiracetam (Keppra Oral Solution -) 1,500 mg GT BID@0630,1830 [facility] Last Admin: 02/15/17 06:10 Dose: 1,500 mg Oxcarbazepine (Trileptal) 180 mg GT DAILY@0630 [facility] Last Admin: 02/15/17 06:09 Dose: 5 ml Oxcarbazepine (Trileptal) 210 mg GT DAILY@1900 [facility] Last Admin: 02/14/17 19:06 Dose: 210 mg Scopolamine HBr (Transderm-Scop -) 1 patch TD Q72H [facility] Last Admin: 02/15/17 01:23 Dose: 1 patch Topiramate 200 mg/ Topiramate (25 mg) 225 mg GT BID@,18 [facility] Last Admin: 02/15/17 06:09 Dose: 225 mg - Objective Vital Signs: Vital Signs Temperature 96.4 F L 02/15/17 06:00 Pulse Rate 56 L 02/15/17 10:00 Respiratory Rate 20 02/15/17 10:00 Blood Pressure 105/55 02/15/17 10:00 O2 Sat by Pulse Oximetry (%) 98 02/15/17 10:00 Constitutional: Yes: Calm Eyes: Yes: Conjunctiva Clear HENT: Yes: Atraumatic Neck: Yes: Supple Cardiovascular: Yes: S1, S2 Respiratory: Yes: CTA Bilaterally Gastrointestinal: Yes: Soft Genitourinary: Yes: Incontinence Musculoskeletal: Yes: Muscle Weakness Edema: Yes Edema: LLE: Trace, RLE: Trace Neurological: Yes: Pre-Existing Deficit Labs: CBC, BMP 02/15/17 07:15 02/15/17 07:15 Problem List - Problems (1) Pneumonia Code(s): J18.9 - PNEUMONIA, UNSPECIFIED ORGANISM Qualifiers: Pneumonia type: due to unspecified organism Laterality: unspecified laterality Lung location: unspecified part of lung Qualified Code(s): J18.9 - Pneumonia, unspecified organism (2) Acute respiratory failure with hypoxia Code(s): J96.01 - ACUTE RESPIRATORY FAILURE WITH HYPOXIA (3) ALEKSANDR (acute kidney injury) Code(s): N17.9 - ACUTE KIDNEY FAILURE, UNSPECIFIED Assessment/Plan Current Medications Generic Name Dose Route Start Last Admin Trade Name Freq PRN Reason Stop Dose Admin Albuterol/Ipratropium 1 amp 02/10/17 00:00 02/15/17 11:10 Duoneb - NEB 1 amp QIDR [facility] Administration Baclofen 5 mg 02/09/17 22:00 02/15/17 06:09 Lioresal - GT 5 mg TID [facility] Administration Heparin Sodium (Porcine) 5,000 unit 02/09/17 22:00 02/14/17 07:01 Heparin - SQ 5,000 unit TID [facility] Administration Piperacillin Sod/Tazobactam 50 mls @ 100 mls/hr 02/15/17 11:39 Sod 3.375 gm/ Dextrose IVPB 02/16/17 18:29 Q8H-IV [facility] Protocol Lactulose 10 gm 02/09/17 20:49 02/10/17 09:28 Cephulac (Oral Use) GT 10 gm TID PRN Administration CONSTIPATION Levetiracetam 1,500 mg 02/10/17 06:30 02/15/17 06:10 Keppra Oral Solution - GT 1,500 mg BID@0630,1830 [facility] Administration Oxcarbazepine 180 mg 02/10/17 06:30 02/15/17 06:09 Trileptal GT 5 ml DAILY@0630 [facility] Administration Oxcarbazepine 210 mg 02/10/17 19:00 02/14/17 19:06 Trileptal GT 210 mg DAILY@1900 [facility] Administration Scopolamine HBr 1 patch 02/12/17 01:00 02/15/17 01:23 Transderm-Scop - TD 1 patch Q72H [facility] Administration Topiramate 200 mg/ Topiramate 225 mg 02/10/17 06:00 02/15/17 06:09 25 mg GT 225 mg BID@06,18 [facility] Administration Impression 1. ALEKSANDR 2. sepsis 3. pna 4. severe developmental delay 5. epilepsy 6. venous congestion 7. hypernatremia Plan - renal function continues to improve - repeat labs in am - cont with feeds - renal workup negative so far - likely resolving ATN - cont abx - will follow Dr Cesar
[2017-02-15] MEDS: HEPARIN NA (PORCINE) 5,000 UNITS/ML 1ML VIAL SQ SCH ×2 (15:38→22:35)
--- NOTE | 2017-02-15 15:59 | PN ---
Progress Note, Physician History of Present Illness: much more awake and alert looks calm - Current Medication List Current Medications: Active Medications Albuterol/Ipratropium (Duoneb -) 1 amp NEB QIDR [facility] Last Admin: 02/15/17 11:10 Dose: 1 amp Baclofen (Lioresal -) 5 mg GT TID [facility] Last Admin: 02/15/17 06:09 Dose: 5 mg Heparin Sodium (Porcine) (Heparin -) 5,000 unit SQ TID [facility] Last Admin: 02/14/17 07:01 Dose: 5,000 unit Piperacillin Sod/Tazobactam (Sod 3.375 gm/ Dextrose) 50 mls @ 100 mls/hr IVPB Q8H-IV [facility] PRN Reason: Protocol Stop: 02/16/17 18:29 Lactulose (Cephulac (Oral Use)) 10 gm GT TID PRN PRN Reason: CONSTIPATION Last Admin: 02/10/17 09:28 Dose: 10 gm Levetiracetam (Keppra Oral Solution -) 1,500 mg GT BID@0630,1830 [facility] Last Admin: 02/15/17 06:10 Dose: 1,500 mg Oxcarbazepine (Trileptal) 180 mg GT DAILY@0630 [facility] Last Admin: 02/15/17 06:09 Dose: 5 ml Oxcarbazepine (Trileptal) 210 mg GT DAILY@1900 [facility] Last Admin: 02/14/17 19:06 Dose: 210 mg Scopolamine HBr (Transderm-Scop -) 1 patch TD Q72H [facility] Last Admin: 02/15/17 01:23 Dose: 1 patch Topiramate 200 mg/ Topiramate (25 mg) 225 mg GT BID@06,18 [facility] Last Admin: 02/15/17 06:09 Dose: 225 mg - Objective Vital Signs: Vital Signs Temperature 96.4 F L 02/15/17 06:00 Pulse Rate 56 L 02/15/17 10:00 Respiratory Rate 20 02/15/17 10:00 Blood Pressure 105/55 02/15/17 10:00 O2 Sat by Pulse Oximetry (%) 98 02/15/17 10:00 Constitutional: Yes: No Distress, Calm Cardiovascular: Yes: Regular Rate and Rhythm Respiratory: Yes: On Nasal O2, Rhonchi Gastrointestinal: Yes: Normal Bowel Sounds, Soft, Other (peg in place) Musculoskeletal: Yes: Other Extremities: Yes: Other Neurological: Yes: Alert, Other Psychiatric: Yes: Alert Labs: CBC, BMP 02/15/17 07:15 02/15/17 07:15 Assessment/Plan Problem List - Problems (1) Pneumonia Code(s): J18.9 - PNEUMONIA, UNSPECIFIED ORGANISM Qualifiers: Pneumonia type: due to unspecified organism Laterality: unspecified laterality Lung location: unspecified part of lung Qualified Code(s): J18.9 - Pneumonia, unspecified organism (2) Acute respiratory failure with hypoxia Code(s): J96.01 - ACUTE RESPIRATORY FAILURE WITH HYPOXIA (3) Cerebral palsy Code(s): G80.9 - CEREBRAL PALSY, UNSPECIFIED (4) Functional quadriplegia Code(s): R53.2 - FUNCTIONAL QUADRIPLEGIA (5) Mental retardation Code(s): F79 - UNSPECIFIED INTELLECTUAL DISABILITIES (6) Seizure disorder Code(s): G40.909 - EPILEPSY, UNSP, NOT INTRACTABLE, WITHOUT STATUS EPILEPTICUS patient s renal function has detoriated wi plan continue current mgmt patient improving will evaluate tomorrow finish abx and can stop all abx tomorrow
[2017-02-15 17:40] LABS: MCHC 33.6 g/dl (32.0-36.0); MEAN CELL VOLUME 95.2 fl (80-96); MEAN PLT VOLUME 9.1 fl (7.5-11.1); PLATELET COUNT 256 K/MM3 (134-434); RDW 15.7 % (11.6-15.6); WHITE BLOOD COUNT 5.4 K/mm3 (4.0-10.0)
[2017-02-15] MEDS ORDERED: DEXTROSE 5%-WATER - 50 ML IVPB ONE (18:30)
[2017-02-15] MEDS ORDERED: PIPERACILLIN/TAZOBACTAM 3.375 GM VIAL IVPB ONE (18:30)
[2017-02-15] MEDS: PIPERACILLIN/TAZOB 3.375 GM 3.375 GM in DEXTROSE 5%-WATER - 50 ML IVPB SCH (19:12)
[2017-02-16] MEDS ORDERED: PIPERACILLIN/TAZOBACTAM 3.375 GM VIAL IVPB ONE ×3 (02:02→17:09)
[2017-02-16] MEDS ORDERED: DEXTROSE 5%-WATER - 50 ML IVPB ONE ×3 (02:03→17:09)
[2017-02-16] MEDS: ALBUTEROL SO4 2.5/IPRATROPIUM 0.5 INH SOL 3 ML VIAL.NEB. NEB SCH ×3 (06:20→17:25)
[2017-02-16] MEDS ORDERED: PT OWN MED DRAWER 7, Y5N ONE ×3 (07:07→17:08)
[2017-02-16 08:09] LABS: ANION GAP 10 (8-16); CALCIUM 8.7 mg/dL (8.5-10.1); CO2 23 mmol/L (21-32); GLUCOSE,RANDOM 100 mg/dL (74-106)
[2017-02-16] MEDS: PIPERACILLIN/TAZOB 3.375 GM 3.375 GM in DEXTROSE 5%-WATER - 50 ML IVPB SCH ×3 (09:54→17:13)
[2017-02-16] MEDS: BACLOFEN 10 MG TABLET (FP) GT SCH ×2 (09:55→13:56)
[2017-02-16] MEDS: HEPARIN NA (PORCINE) 5,000 UNITS/ML 1ML VIAL SQ SCH ×2 (09:55→13:56)
[2017-02-16] MEDS: levETIRAcetam 500 MG/5 ML ORAL SOLUTION (UNIT-DOSE CUPS) GT SCH ×2 (09:56→17:55)
[2017-02-16] MEDS: OXcarbazepine 300 MG/5 ML 250 ML BULK BOTTLE GT SCH ×2 (09:56→18:26)
--- NOTE | 2017-02-16 12:59 | PN ---
Progress Note (short form) - Note Progress Note: PULMONARY Somnolent, no fevers recorded. Last Vital Signs Temp Pulse Resp BP Pulse Ox 97.3 F L 74 18 112/68 97 02/16/17 06:00 02/16/17 06:00 02/16/17 06:00 02/16/17 06:00 02/15/17 22:00 Gen: breathing nonlabored Heart: tachycardic, regular Lung: decreased breath sounds at the bases Abd: soft, nontender Ext: +edema CBC, BMP 02/15/17 17:20 02/16/17 05:25 Active Medications Albuterol/Ipratropium (Duoneb -) 1 amp NEB QIDR [facility] Last Admin: 02/16/17 06:20 Dose: 1 amp Baclofen (Lioresal -) 5 mg GT TID [facility] Last Admin: 02/16/17 09:55 Dose: Not Given Heparin Sodium (Porcine) (Heparin -) 5,000 unit SQ TID [facility] Last Admin: 02/16/17 09:55 Dose: Not Given Piperacillin Sod/Tazobactam (Sod 3.375 gm/ Dextrose) 50 mls @ 100 mls/hr IVPB Q8H-IV [facility] PRN Reason: Protocol Stop: 02/16/17 18:29 Last Admin: 02/16/17 10:04 Dose: 100 mls/hr Lactulose (Cephulac (Oral Use)) 10 gm GT TID PRN PRN Reason: CONSTIPATION Last Admin: 02/10/17 09:28 Dose: 10 gm Levetiracetam (Keppra Oral Solution -) 1,500 mg GT BID@0630,1830 [facility] Last Admin: 02/16/17 09:56 Dose: Not Given Oxcarbazepine (Trileptal) 180 mg GT DAILY@0630 [facility] Last Admin: 02/16/17 09:56 Dose: Not Given Oxcarbazepine (Trileptal) 210 mg GT DAILY@1900 [facility] Last Admin: 02/15/17 19:12 Dose: 210 mg Scopolamine HBr (Transderm-Scop -) 1 patch TD Q72H [facility] Last Admin: 02/15/17 01:23 Dose: 1 patch Topiramate 200 mg/ Topiramate (25 mg) 225 mg GT BID@ [facility] Last Admin: 02/15/17 17:39 Dose: 225 mg A/P Pneumonia Sepsis Acute Kidney Injury Mental Retardation Seizure Disorder - complete antibiotics - monitor urine output, creatinine - aspiration precautions - O2 to keep SpO2 >90% - DVT prophylaxis
--- NOTE | 2017-02-16 13:04 | PN ---
Progress Note, Physician History of Present Illness: Pt seen and examined at bedside. She is awake and appears comfortable. - Current Medication List Current Medications: Active Medications Albuterol/Ipratropium (Duoneb -) 1 amp NEB QIDR [facility] Last Admin: 02/16/17 11:40 Dose: 1 amp Baclofen (Lioresal -) 5 mg GT TID [facility] Last Admin: 02/16/17 09:55 Dose: Not Given Heparin Sodium (Porcine) (Heparin -) 5,000 unit SQ TID [facility] Last Admin: 02/16/17 09:55 Dose: Not Given Piperacillin Sod/Tazobactam (Sod 3.375 gm/ Dextrose) 50 mls @ 100 mls/hr IVPB Q8H-IV [facility] PRN Reason: Protocol Stop: 02/16/17 18:29 Last Admin: 02/16/17 10:04 Dose: 100 mls/hr Lactulose (Cephulac (Oral Use)) 10 gm GT TID PRN PRN Reason: CONSTIPATION Last Admin: 02/10/17 09:28 Dose: 10 gm Levetiracetam (Keppra Oral Solution -) 1,500 mg GT BID@0630,1830 [facility] Last Admin: 02/16/17 09:56 Dose: Not Given Oxcarbazepine (Trileptal) 180 mg GT DAILY@0630 [facility] Last Admin: 02/16/17 09:56 Dose: Not Given Oxcarbazepine (Trileptal) 210 mg GT DAILY@1900 [facility] Last Admin: 02/15/17 19:12 Dose: 210 mg Scopolamine HBr (Transderm-Scop -) 1 patch TD Q72H [facility] Last Admin: 02/15/17 01:23 Dose: 1 patch Topiramate 200 mg/ Topiramate (25 mg) 225 mg GT BID@06,18 [facility] Last Admin: 02/15/17 17:39 Dose: 225 mg - Objective Vital Signs: Vital Signs Temperature 97.3 F L 02/16/17 06:00 Pulse Rate 71 02/16/17 11:40 Respiratory Rate 18 02/16/17 06:00 Blood Pressure 112/68 02/16/17 06:00 O2 Sat by Pulse Oximetry (%) 100 02/16/17 11:40 Constitutional: Yes: Calm Eyes: Yes: Conjunctiva Clear HENT: Yes: Atraumatic Neck: Yes: Supple Cardiovascular: Yes: S1, S2 Respiratory: Yes: CTA Bilaterally Gastrointestinal: Yes: Soft Musculoskeletal: Yes: Muscle Weakness Edema: Yes Neurological: Yes: Pre-Existing Deficit Labs: CBC, BMP 02/15/17 17:20 02/16/17 05:25 Problem List - Problems (1) Pneumonia Code(s): J18.9 - PNEUMONIA, UNSPECIFIED ORGANISM Qualifiers: Pneumonia type: due to unspecified organism Laterality: unspecified laterality Lung location: unspecified part of lung Qualified Code(s): J18.9 - Pneumonia, unspecified organism (2) Acute respiratory failure with hypoxia Code(s): J96.01 - ACUTE RESPIRATORY FAILURE WITH HYPOXIA (3) ALEKSANDR (acute kidney injury) Code(s): N17.9 - ACUTE KIDNEY FAILURE, UNSPECIFIED Assessment/Plan Current Medications Generic Name Dose Route Start Last Admin Trade Name Freq PRN Reason Stop Dose Admin Albuterol/Ipratropium 1 amp 02/10/17 00:00 02/16/17 11:40 Duoneb - NEB 1 amp QIDR [facility] Administration Baclofen 5 mg 02/09/17 22:00 02/16/17 09:55 Lioresal - GT Not Given TID [facility] Heparin Sodium (Porcine) 5,000 unit 02/09/17 22:00 02/16/17 09:55 Heparin - SQ Not Given TID [facility] Piperacillin Sod/Tazobactam 50 mls @ 100 mls/hr 02/15/17 11:39 02/16/17 10:04 Sod 3.375 gm/ Dextrose IVPB 02/16/17 18:29 100 mls/hr Q8H-IV [facility] Administration Protocol Lactulose 10 gm 02/09/17 20:49 02/10/17 09:28 Cephulac (Oral Use) GT 10 gm TID PRN Administration CONSTIPATION Levetiracetam 1,500 mg 02/10/17 06:30 02/16/17 09:56 Keppra Oral Solution - GT Not Given BID@0630,1830 [facility] Oxcarbazepine 180 mg 02/10/17 06:30 02/16/17 09:56 Trileptal GT Not Given DAILY@0630 [facility] Oxcarbazepine 210 mg 02/10/17 19:00 02/15/17 19:12 Trileptal GT 210 mg DAILY@1900 [facility] Administration Scopolamine HBr 1 patch 02/12/17 01:00 02/15/17 01:23 Transderm-Scop - TD 1 patch Q72H [facility] Administration Topiramate 200 mg/ Topiramate 225 mg 02/10/17 06:00 02/15/17 17:39 25 mg GT 225 mg BID@06,18 [facility] Administration Impression 1. ALEKSANDR 2. sepsis 3. pna 4. severe developmental delay 5. epilepsy 6. venous congestion 7. hypernatremia Plan - cont with feeds - sodium improving - renal function is also improving, she has a baseline office administrator of about 0.3 - likely resolving ATN - cont abx - will follow Dr Cesar
[2017-02-16 14:46] VITALS: BP 101/68; TEMP 97.6
--- NOTE | 2017-02-16 16:37 | DS ---
Physical Exam: SUBJECTIVE: Patient seen and examined this AM. Nonverbal but looks comfortable, eyes open. OBJECTIVE: Vital Signs Period Temp Pulse Resp BP Sys/Herman Pulse Ox Last 24 Hr 97 F-97.6 F 64-82 18-18 98-120/68-74 97-100 PHYSICAL EXAM GEN: Pt is more awake, at baseline, looks comfortable HEENT: PERRLA, no cervical LAD CV: S1, S2, RRR, no murmur appreciated LUNG: Lungs are clear anteriorly ABD: Soft, ND, pt has G tube, normoative BS MSK: 2+ pulses, well perfused, no edema : Pt has visible gross blood clots on pad from vagina NEURO: Exam limited. PERRLA, no facial droop. LABS Laboratory Results - last 24 hr 02/15/17 02/16/17 17:20 05:25 WBC 5.4 RBC 2.54 L Hgb 8.1 L Hct 24.2 L MCV 95.2 MCH 32.0 MCHC 33.6 RDW 15.7 H Plt Count 256 MPV 9.1 Sodium 144 Potassium 4.3 D Chloride 111 H Carbon Dioxide 23 Anion Gap 10 BUN 34 H Creatinine 1.0 Random Glucose 100 D Calcium 8.7 HOSPITAL COURSE: Date of Admission:02/05/17 Date of Discharge: 02/16/17 Ms. Cher Braxton is a 26yo F from [facility] with severe MR, CP, spastic quadriplegia, seizure disorder, with recurrent PNAs who presented with sepsis secondary to PNA. # Sepsis likely secondary to PNA - She was managed initially in the ICU due to her hypothermia, did not require intubation. Sputum cultures grew Serratia and Pseudomonas sensitive to Zosyn. The patient received a 11 days of IV Zosyn with eventual relief in symptoms. The patient was followed by infectious disease (Dr. Rider) throughout the hospitalization. # Acute Kidney Injury - This was likely caused by sepsis. Her Cr toshia to max 3.1. She was treated with increasing free water fluids through her G-tube which brought her Cr steadily down to baseline. She was placed on a brown catheter, and maintained good urine output throughout # UTI - The patient's urine culture grew Pseudomonas, which is sensitive to Zosyn and Levofloxacin, she will receive 4 more days of Levo through the GTube. # Anemia - The patient had heavy menstrual bleeding, which contributed to her anemia. She received 1 unit of PRBC which brought her hemoglobin from 7.2 to 8.1. Consent was obtained from the patient's father Omar Braxton. # Transaminitis - The patient's transaminitis is likely chronic, looks like a hepatocellular picture. We encourage the patient's primary care doctor to followup the patient' s liver with imaging and autoimmune labs. For all other chronic medical problems, we continued the patient on all of her home medications. The hospitalist intern brand discussed the case with Dr. Cheek, lead hospitalist at [facility], who agrees with the discharge. Minutes to complete discharge: 55 Discharge Summary Reason For Visit: PNEUMONIA Current Active Problems ALEKSANDR (acute kidney injury) (Acute) Pneumonia (Acute) Condition: Improved - Instructions Diet, Activity, Other Instructions: - You were treated with antibiotics in the hospital - You are doing much better NEW MEDICATIONS: - Levofloxacin 500mg QD x 4 more days for your Urinary Tract Infection FOLLOWUPS: - Followup with your Primary Care doctor at [facility] - Ask your doctor about your elevated liver enzymes, they may want to run tests for it - Consider seeing an OB-CLOTHING SUPERVISOR doctor for your heavy menstrual periods - If you do not have a kidney doctor, please followup with Dr. Cesar in 2 weeks If you have any serious symptoms, please return to the Emergency Department Referrals: Austin Briggs MD [Primary Care Provider] - Julito Cesar MD [Staff Physician] - 2 Weeks Disposition: CARE HOME FACILITY - Home Medications Comprehensive Discharge Medication List: Ambulatory Orders Albuterol 0.083% Nebulizer Sobeida [Ventolin 0.083% Nebulizer Soln -] 1 neb NEB PRN PRN 02/05/17 Baclofen 5 mg GT TID 02/05/17 Cholecalciferol (Vitamin D3) [Vitamin D3] 2,000 unit GT DAILY 02/05/17 Diazepam [Diastat Acudial] 10 mg RC PRN PRN 02/05/17 Ipratropium/Albuterol Sulfate [Iprat-Albut 0.5-3(2.5) mg/3 ml] 3 ml IH Q4HWA PRN 02/05/17 Lactulose 15 gm GT TID 02/05/17 Levetiracetam 1,500 mg GT BID 02/05/17 Multivit-Min/FA/Lycopen/Lutein [Vitrum 50+ Senior Tablet] 1 each PO DAILY Nystatin Ointment [Mycostatin Ointment -] 1 applic TP PRN PRN 02/05/17 OXcarbazepine [Trileptal] 180 mg GT DAILY 02/05/17 OXcarbazepine [Trileptal] 210 mg GT HS 02/05/17 Topiramate 200 mg GT BID 02/05/17 Topiramate [Trokendi Xr] 25 mg GT BID 02/05/17 Levofloxacin [Levaquin] 500 mg GT DAILY #4 tablet 02/16/17 This patient is new to me today: No Emergency Visit: No Critical Care patient: No - Discharge Referral Referred to [facility] No
--- NOTE | 2017-02-16 17:10 | PN ---
Progress Note, Physician History of Present Illness: much more awake and alert looks calm still she is bleeding - Current Medication List Current Medications: Active Medications Albuterol/Ipratropium (Duoneb -) 1 amp NEB QIDR [facility] Last Admin: 02/16/17 11:40 Dose: 1 amp Baclofen (Lioresal -) 5 mg GT TID [facility] Last Admin: 02/16/17 13:56 Dose: 5 mg Heparin Sodium (Porcine) (Heparin -) 5,000 unit SQ TID [facility] Last Admin: 02/16/17 13:56 Dose: 5,000 unit Piperacillin Sod/Tazobactam (Sod 3.375 gm/ Dextrose) 50 mls @ 100 mls/hr IVPB Q8H-IV HARIS PRN Reason: Protocol Stop: 02/16/17 18:29 Last Admin: 02/16/17 10:04 Dose: 100 mls/hr Lactulose (Cephulac (Oral Use)) 10 gm GT TID PRN PRN Reason: CONSTIPATION Last Admin: 02/10/17 09:28 Dose: 10 gm Levetiracetam (Keppra Oral Solution -) 1,500 mg GT BID@0630,1830 [facility] Last Admin: 02/16/17 09:56 Dose: Not Given Oxcarbazepine (Trileptal) 180 mg GT DAILY@0630 [facility] Last Admin: 02/16/17 09:56 Dose: Not Given Oxcarbazepine (Trileptal) 210 mg GT DAILY@1900 [facility] Last Admin: 02/15/17 19:12 Dose: 210 mg Scopolamine HBr (Transderm-Scop -) 1 patch TD Q72H [facility] Last Admin: 02/15/17 01:23 Dose: 1 patch Topiramate 200 mg/ Topiramate (25 mg) 225 mg GT BID@06,18 [facility] Last Admin: 02/15/17 17:39 Dose: 225 mg - Objective Vital Signs: Vital Signs Temperature 97.6 F 02/16/17 14:45 Pulse Rate 64 02/16/17 14:45 Respiratory Rate 18 02/16/17 14:45 Blood Pressure 101/68 02/16/17 14:45 O2 Sat by Pulse Oximetry (%) 100 02/16/17 11:40 Constitutional: Yes: No Distress, Calm HENT: Yes: Atraumatic Cardiovascular: Yes: Regular Rate and Rhythm Respiratory: Yes: Regular, Rhonchi Gastrointestinal: Yes: Normal Bowel Sounds, Soft Musculoskeletal: Yes: Other Extremities: Yes: Other Neurological: Yes: Alert, Other Labs: CBC, BMP 02/15/17 17:20 02/16/17 05:25 Assessment/Plan Problem List - Problems (1) Pneumonia Code(s): J18.9 - PNEUMONIA, UNSPECIFIED ORGANISM Qualifiers: Pneumonia type: due to unspecified organism Laterality: unspecified laterality Lung location: unspecified part of lung Qualified Code(s): J18.9 - Pneumonia, unspecified organism (2) Acute respiratory failure with hypoxia Code(s): J96.01 - ACUTE RESPIRATORY FAILURE WITH HYPOXIA (3) Cerebral palsy Code(s): G80.9 - CEREBRAL PALSY, UNSPECIFIED (4) Functional quadriplegia Code(s): R53.2 - FUNCTIONAL QUADRIPLEGIA (5) Mental retardation Code(s): F79 - UNSPECIFIED INTELLECTUAL DISABILITIES (6) Seizure disorder Code(s): G40.909 - EPILEPSY, UNSP, NOT INTRACTABLE, WITHOUT STATUS EPILEPTICUS patient s renal function has detoriated wi plan can stop abx patient still bleeding make sure her count is ok rest as per primary
[2017-02-16] MEDS: TOPIRAMATE GT SCH (17:15)
--- NOTE | 2017-02-16 17:24 | PN ---
Teaching Attending Note Name of Resident: Ekta Wan ATTENDING PHYSICIAN STATEMENT I saw and evaluated the patient. I reviewed the resident's note and discussed the case with the resident. I agree with the resident's findings and plan as documented. SUBJECTIVE: OBJECTIVE: Vital Signs Period Temp Pulse Resp BP Sys/Herman Pulse Ox Last 24 Hr 97 F-97.6 F 64-82 18-18 98-120/68-74 97-100 ASSESSMENT AND PLAN:
[2017-02-16 17:27] VITALS: PULSE 101
== END 2017-02-16 19:44 | DRG 871 ==
LOC: JER 12:33 → JERBED 15:36 → JICU 19:36 → J2W 02-09 20:34 → J4S 02-10 19:32
PROVIDERS: ADMIT Internal Medicine; ATTEND Internal Medicine
PROC: 3E0F7GC Introduction of Other Therapeutic Substance into Respiratory Tract, Via Natural or Artificial Opening (ICD-10-PCS; principal; 2017-02-05)
PROC: 30233H1 Transfusion of Nonautologous Whole Blood into Peripheral Vein, Percutaneous Approach (ICD-10-PCS; 2017-02-15)
DX: A41.9 Sepsis, unspecified organism (principal); J69.0 Pneumonitis due to inhalation of food and vomit; R53.2 Functional quadriplegia; J96.01 Acute respiratory failure with hypoxia; N17.0 Acute kidney failure with tubular necrosis; F72 Severe intellectual disabilities; G40.89 Other seizures; E87.4 Mixed disorder of acid-base balance; E87.0 Hyperosmolality and hypernatremia; G80.8 Other cerebral palsy; R68.0 Hypothermia, not associated with low environmental temperature; Z93.1 Gastrostomy status; K21.9 Gastro-esophageal reflux disease without esophagitis; R13.10 Dysphagia, unspecified; J45.909 Unspecified asthma, uncomplicated; H47.611 Cortical blindness, right side of brain; H47.612 Cortical blindness, left side of brain; R74.0 Nonspecific elevation of levels of transaminase and lactic acid dehydrogenase [LDH]; K59.00 Constipation, unspecified; B96.5 Pseudomonas (aeruginosa) (mallei) (pseudomallei) as the cause of diseases classified elsewhere; D69.6 Thrombocytopenia, unspecified; E87.6 Hypokalemia; E86.0 Dehydration; D64.89 Other specified anemias; B96.89 Other specified bacterial agents as the cause of diseases classified elsewhere
CPT/HCPCS: 36415; 36430; 36600; 71010-TC; 74000-TC; 76775-TC; 76856-TC; 80048; 80053; 81003; 81015; 82436; 82570; 82803; 83516; 83520; 83605; 83735; 83935; 84100; 84132; 84133; 84300; 84540; 84703; 85025; 85027; 86256; 86850; 86900; 86901; 86922; 87040; 87070; 87086; 87186; 87205; 93005; 93010; 93306-TC; 94640; 94660; 99284-25; G0480; J0475; J1644; P9038; P9058

== ENCOUNTER 2017-11-30 10:02 | Inpatient (IN) | payer OTHER ==
--- NOTE | 2017-11-30 11:10 | PDOC ---
History of Present Illness <Codey Nelson - Last Filed: 11/30/17 15:54> - General History Source: Old Records, Unavil. due to pt. cond. Exam Limitations: Clinical Condition, Physical Impairment - History of Present Illness Initial Comments: 11/30/17 11:38 The patient is a 27 year old female, with a significant past medical history of congenital quadriplegia, cerebral palsy, severe MR, seizure d/o, PEG, GERD, recurrent pneumonias(some with ICU admission), sent from [facility] for congestion w/ cough since earlier today. Per aide no fever, chills, nausea, or vomiting were noted. Patient is nonverbal and history is limited. Allergies: NKDA Past Surgical History: PEG tube placement <True Acuña - Last Filed: 11/30/17 15:59> - General Chief Complaint: Shortness of Breath Stated Complaint: SOB Time Seen by Provider: 11/30/17 10:55 Past History - Past Medical History Anemia: No Asthma: No Cancer: No Cardiac Disorders: No CVA: No COPD: No CHF: No Dementia: No GI Disorders: Yes (GERD. GTUBE.) HTN: No Hypercholesterolemia: No Seizures: Yes (EPILEPSY.) Other medical history: CONGENITAL QUADRIPLEGIA - Surgical History Abdominal Surgery: Yes GI Surgery: Yes (GTUBE.) Neurologic Surgery: Yes (SPINAL SX.) - Immunization History Td Vaccination: Yes Immunization Up to Date: Yes - Suicide/Smoking/Psychosocial Hx Smoking History: Never smoked Have you smoked in the past 12 months: No Number of Cigarettes Smoked Daily: 0 Hx Alcohol Use: No Drug/Substance Use Hx: No Substance Use Type: None Hx Substance Use Treatment: No <Codey Nelson - Last Filed: 11/30/17 15:54> <True Acuña - Last Filed: 11/30/17 15:59> - Past Medical History Allergies/Adverse Reactions: Allergies Allergy/AdvReac Type Severity Reaction Status Date / Time No Known Allergies Allergy Verified 02/05/17 12:40 Home Medications: Ambulatory Orders Albuterol 0.083% Nebulizer Sobeida [Ventolin 0.083% Nebulizer Soln -] 1 neb NEB PRN PRN 02/05/17 Baclofen 5 mg GT TID 02/05/17 Cholecalciferol (Vitamin D3) [Vitamin D3] 2,000 unit GT DAILY 02/05/17 Lactulose 15 gm GT TID 02/05/17 Levetiracetam 1,500 mg GT BID 02/05/17 Nystatin Ointment [Mycostatin Ointment -] 1 applic TP PRN PRN 02/05/17 OXcarbazepine [Trileptal] 180 mg GT DAILY 02/05/17 OXcarbazepine [Trileptal] 210 mg GT HS 02/05/17 Topiramate 200 mg GT BID 02/05/17 Topiramate [Trokendi Xr] 25 mg GT BID 02/05/17 Albuterol 2.5/Ipratropium 0.5 [Duoneb -] 1 neb NEB Q4H 11/30/17 Diazepam Rectal Gel [Diastat Rectal Gel -] 10 mg [place] PRN 11/30/17 Nutritional Supplement [Promote] 120 ml PO ASDIR 11/30/17 Sennosides [Senna] 8.6 mg PO BID 11/30/17 Review of Systems - Review of Systems Able to Perform ROS?: No <True Acuña - Last Filed: 11/30/17 15:59> *Physical Exam - Vital Signs Last Vital Signs Temp Pulse Resp BP Pulse Ox 98.9 F 115 H 36 H 110/76 100 11/30/17 10:05 11/30/17 10:05 11/30/17 10:05 11/30/17 10:05 11/30/17 10:54 - Physical Exam Comments: 11/30/17 14:54 EXAMINATION CONSTITUTIONAL: Awake, nonverbal, doesn't follow commands, tachypneic, hypoxemic on room air to 89%, improving to 97% on nonrebreather at 10 L/m; HEAD: Microcephalic EYES: No icterus, conjunctiva are pink ENMT: mmm NECK: no cervical lymphadenopathy CARD: Tachycardic, Normal S1, S2; no murmurs, rubs, or gallops RESP: + Extensive rhonchi bilaterally, as well as upper respiratory sounds transmitted distally into the lung zavala bilaterally; ABD: Soft, non-distended; non-tender; no palpable organomegaly, no palpable hernias; + feeding tube and left upper quadrant EXT: Upper extremities held in flexion contraction, lower extremities held in extension and contraction; SKIN: Warm, dry, no petechia NEURO: Alert, nonverbal, does not follow commands, <Codey Nelson - Last Filed: 11/30/17 15:54> - Vital Signs Last Vital Signs Temp Pulse Resp BP Pulse Ox 98.9 F 115 H 36 H 110/76 100 11/30/17 10:05 11/30/17 10:05 11/30/17 10:05 11/30/17 10:05 11/30/17 10:54 <True Acuña - Last Filed: 11/30/17 15:59> Heart Score/ECG Review - ECG Intrepretation Comment:: 11/30/17 14:26 Vent Rate: 131 bpm IMPRESSION: Sinus tachycardia with short TX. Septal infarct, age undetermined. Lateral infarct, age undetermined. Cannot rule out inferior infarct. <True Acuña - Last Filed: 11/30/17 15:59> ED Treatment Course - LABORATORY CBC & Chemistry Diagram: 11/30/17 11:47 11/30/17 11:47 <Codey Nelson - Last Filed: 11/30/17 15:54> - LABORATORY CBC & Chemistry Diagram: 11/30/17 11:47 11/30/17 11:47 - RADIOLOGY Radiograph Interpretation: 11/30/17 15:58 EXAM: CXR INTERPRETED BY: Dr. Yang REVIEWED BY: Dr. Nelson IMPRESSION: Since the prior study of 04/03/2017, again is a scoliosis with spinal support rods. There are new congestive and infiltrative changes with pleural fluid. There is a weak inspiration. There is an elevated left hemidiaphragm. Correlation recommended. SUMMARY: Severe scoliosis with spinal support rods. New congestive and infiltrative changes with elevated left hemidiaphragm. <True Acuña - Last Filed: 11/30/17 15:59> Medical Decision Making - Medical Decision Making 11/30/17 14:56 Patient is a 27-year-old female with history of severe MR, spastic quadriplegia , epilepsy and recurrent pneumonia presents from [facility] for tachypnea and severely decreased oxygen saturation associated with the cough. Patient is afebrile in the ER, the oxygen saturation of 89% room air, improving to 97-98% on 10 L via nonrebreather. Chest x-ray reveals new infiltrative changes consistent with aspiration pneumonia. Review of medical record reveals sputum culture positive for Serratia and pseudomonas sensitive to Zosyn. Case discussed with Dr. Flora fuentes. Will administer IV Zosyn. Will admit. 11/30/17 15:54 pt hypotensive. will adminsiter ns bolus. <Codey Nelson - Last Filed: 11/30/17 15:54> - Medical Decision Making 11/30/17 14:29 First call placed to Dr. Babb at 14:28. Case discussed at this time. <True Acuña - Last Filed: 11/30/17 15:59> *DC/Admit/Observation/Transfer - Discharge Dispostion Decision to Admit order: Yes - Attestations Physician Attestion: 11/30/17 14:53 The documentation was prepared by the scribe under my direct supervision. I have reviewed the documentation which correctly represents the findings, medical decision-making and critical action taken by me. <Codey Nelson - Last Filed: 11/30/17 15:54> - Attestations Scribe Attestion: 11/30/17 11:39 Documentation prepared by True Acuña, acting as emergency medical service manager for Codey Nelson MD. <True Acuña - Last Filed: 11/30/17 15:59> Diagnosis at time of Disposition: Pneumonia Qualifiers: Pneumonia type: aspiration pneumonia Aspiration pneumonia type: unspecified Laterality: unspecified laterality Lung location: unspecified part of lung Qualified Code(s): J69.0 - Pneumonitis due to inhalation of food and vomit - Discharge Dispostion Condition at time of disposition: Fair
[2017-11-30] MEDS ORDERED: ALBUTEROL SO4 2.5/IPRATROPIUM 0.5 INH SOL 3 ML VIAL.NEB. NEB ONE ×4 (11:29→18:47)
[2017-11-30] MEDS: ALBUTEROL SO4 2.5/IPRATROPIUM 0.5 INH SOL 3 ML VIAL.NEB. NEB SCH ×6 (12:00→20:50)
[2017-11-30 12:03] LABS: BASO % 0.1 % (0-2.0); EOS % 0.1 % (0-4.5); HEMATOCRIT 32.8 % (32.4-45.2); HEMOGLOBIN 11.3 GM/dL (10.7-15.3); LYMPH % 6.6 % (8-40); MCH 34.1 pg (25.7-33.7); MCHC 34.6 g/dl (32.0-36.0); MEAN CELL VOLUME 98.7 fl (80-96); MEAN PLT VOLUME 9.3 fl (7.5-11.1); MONO % 4.4 % (3.8-10.2); NEUT % 88.8 % (42.8-82.8); PLATELET COUNT 153 K/MM3 (134-434); RBC 3.33 M/mm3 (3.60-5.2); RDW 15.8 % (11.6-15.6); WHITE BLOOD COUNT 10.1 K/mm3 (4.0-10.0)
[2017-11-30 12:37] LABS: ALBUMIN 2.9 g/dl (3.4-5.0); ANION GAP 8 (8-16); BLOOD UREA NITROGEN 12 mg/dL (7-18); CALCIUM 8.7 mg/dL (8.5-10.1); CHLORIDE 103 mmol/L (98-107); CO2 23 mmol/L (21-32); CREATININE 0.4 mg/dL (0.55-1.02); GLUCOSE,RANDOM 90 mg/dL (74-106); POTASSIUM 3.5 mmol/L (3.5-5.1); SGOT/AST 48 U/L (15-37); SGPT/ALT 190 U/L (12-78); SODIUM 134 mmol/L (136-145)
[2017-11-30 12:39] LABS: ALK PHOS 299 U/L (45-117); BILIRUBIN,TOTAL 0.3 mg/dL (0.2-1.0)
[2017-11-30] MEDS ORDERED: PIPERACILLIN/TAZOB 3.375 GM 3.375 GM in DEXTROSE 5%-WATER - 50 ML IVPB ONE (14:00)
[2017-11-30] MEDS ORDERED: PIPERACILLIN/TAZOB 3.375 GM 3.375 GM/50 ML BAG IVPB ONE (14:08)
[2017-11-30] MEDS ORDERED: SODIUM CHLORIDE 500 ML IV STA (15:54)
--- NOTE | 2017-11-30 18:29 | CON.ID ---
Consult Consult Specialty:: infectious diseases Reason for Consultation:: pneumonia - History of Present Illness History of Present Illness: The patient is a 27 year old female, known to me from multiple admission with a significant past medical history of congenital quadriplegia, cerebral palsy, severe MR, seizure d/o, PEG, GERD, recurrent pneumonias(some with ICU admission) , sent from [facility] for congestion w/ cough since earlier today. Per aide no fever, chills, nausea, or vomiting were noted. 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) Pulmonary: Yes: Asthma, Pneumonia - Alcohol/Substance Use Hx Alcohol Use: No - Smoking History Smoking history: Never smoked Have you smoked in the past 12 months: No Aproximately how many cigarettes per day: 0 - Social History Usual Living Arrangement: Shelter History of Recent Travel: No Home Medications - Allergies Allergies/Adverse Reactions: Allergies Allergy/AdvReac Type Severity Reaction Status Date / Time No Known Allergies Allergy Verified 02/05/17 12:40 - Home Medications Home Medications: Ambulatory Orders Albuterol 0.083% Nebulizer Sobeida [Ventolin 0.083% Nebulizer Soln -] 1 neb NEB PRN PRN 02/05/17 Baclofen 5 mg GT TID 02/05/17 Cholecalciferol (Vitamin D3) [Vitamin D3] 2,000 unit GT DAILY 02/05/17 Lactulose 15 gm GT TID 02/05/17 Levetiracetam 1,500 mg GT BID 02/05/17 Nystatin Ointment [Mycostatin Ointment -] 1 applic TP PRN PRN 02/05/17 OXcarbazepine [Trileptal] 180 mg GT DAILY 02/05/17 OXcarbazepine [Trileptal] 210 mg GT HS 02/05/17 Topiramate 200 mg GT BID 02/05/17 Topiramate [Trokendi Xr] 25 mg GT BID 02/05/17 Albuterol 2.5/Ipratropium 0.5 [Duoneb -] 1 neb NEB Q4H 11/30/17 Diazepam Rectal Gel [Diastat Rectal Gel -] 10 mg HI PRN 11/30/17 Nutritional Supplement [Promote] 120 ml PO ASDIR 11/30/17 Sennosides [Senna] 8.6 mg PO BID 11/30/17 Review of Systems Unable to obtain ROS, reason: unable Physical Exam Vital Signs: Vital Signs Temperature 98 F 11/30/17 15:46 Pulse Rate 111 H 11/30/17 16:24 Respiratory Rate 27 H 11/30/17 16:24 Blood Pressure 94/69 11/30/17 16:24 O2 Sat by Pulse Oximetry (%) 96 11/30/17 16:24 Constitutional: Yes: Other (non verbal) Eyes: Yes: Conjunctiva Clear Neck: Yes: Supple Cardiovascular: Yes: Regular Rate and Rhythm Respiratory: Yes: Cough, On Nasal O2, Poor Air Entry, Rhonchi Gastrointestinal: Yes: Normal Bowel Sounds, Soft, Other (peg in place) Musculoskeletal: Yes: WNL Extremities: Yes: Other (contracted) Integumentary: Yes: Rash Neurological: Yes: Alert, Other Psychiatric: Yes: Other Labs: CBC, BMP 11/30/17 11:47 11/30/17 11:47 Assessment/Plan Assessment/Plan Problem List - Problems (1) Pneumonia Code(s): J18.9 - PNEUMONIA, UNSPECIFIED ORGANISM Qualifiers: Pneumonia type: due to unspecified organism Laterality: unspecified laterality Lung location: unspecified part of lung Qualified Code(s): J18.9 - Pneumonia, unspecified organism (2) Acute respiratory failure with hypoxia Code(s): J96.01 - ACUTE RESPIRATORY FAILURE WITH HYPOXIA (3) Cerebral palsy Code(s): G80.9 - CEREBRAL PALSY, UNSPECIFIED (4) Functional quadriplegia Code(s): R53.2 - FUNCTIONAL QUADRIPLEGIA (5) Mental retardation Code(s): F79 - UNSPECIFIED INTELLECTUAL DISABILITIES (6) Seizure disorder Code(s): G40.909 - EPILEPSY, UNSP, NOT INTRACTABLE, WITHOUT STATUS EPILEPTICUS plan murray tart patient on zosyn monitor closely for resp failure rest continue current mgmt keeping npo for now aspiration precautions
--- NOTE | 2017-11-30 18:31 | HP ---
Admitting History and Physical - Primary Care Physician PCP: Ivonne Babb - Admission History of Present Illness: - 27 year old female, with a significant past medical history of congenital quadriplegia, cerebral palsy, severe MR, seizure d/o, PEG, GERD, recurrent pneumonias(some with ICU admission), sent from [facility] for congestion w/ cough since earlier today. Per aide no fever, chills, nausea, or vomiting were noted. Patient is nonverbal and history is limited. 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) Pulmonary: Yes: Asthma, Pneumonia - Smoking History Smoking history: Never smoked Have you smoked in the past 12 months: No Aproximately how many cigarettes per day: 0 - Alcohol/Substance Use Hx Alcohol Use: No - Social History History of Recent Travel: No Home Medications - Allergies Allergies/Adverse Reactions: Allergies Allergy/AdvReac Type Severity Reaction Status Date / Time No Known Allergies Allergy Verified 02/05/17 12:40 - Home Medications Home Medications: Ambulatory Orders Albuterol 0.083% Nebulizer Osbeida [Ventolin 0.083% Nebulizer Soln -] 1 neb NEB PRN PRN 02/05/17 Baclofen 5 mg GT TID 02/05/17 Cholecalciferol (Vitamin D3) [Vitamin D3] 2,000 unit GT DAILY 02/05/17 Lactulose 15 gm GT TID 02/05/17 Levetiracetam 1,500 mg GT BID 02/05/17 Nystatin Ointment [Mycostatin Ointment -] 1 applic TP PRN PRN 02/05/17 OXcarbazepine [Trileptal] 180 mg GT DAILY 02/05/17 OXcarbazepine [Trileptal] 210 mg GT HS 02/05/17 Topiramate 200 mg GT BID 02/05/17 Topiramate [Trokendi Xr] 25 mg GT BID 02/05/17 Albuterol 2.5/Ipratropium 0.5 [Duoneb -] 1 neb NEB Q4H 11/30/17 Diazepam Rectal Gel [Diastat Rectal Gel -] 10 mg [place] PRN 11/30/17 Nutritional Supplement [Promote] 120 ml PO ASDIR 11/30/17 Sennosides [Senna] 8.6 mg PO BID 11/30/17 Physical Examination Vital Signs: Vital Signs Temperature 98 F 11/30/17 15:46 Pulse Rate 111 H 11/30/17 16:24 Respiratory Rate 27 H 11/30/17 16:24 Blood Pressure 94/69 11/30/17 16:24 O2 Sat by Pulse Oximetry (%) 96 11/30/17 16:24 Constitutional: Yes: No Distress HENT: Yes: Atraumatic Neck: Yes: Supple Cardiovascular: Yes: Regular Rate and Rhythm Respiratory: Yes: Rhonchi Gastrointestinal: Yes: Normal Bowel Sounds Edema: No Neurological: Yes: Alert Labs: CBC, BMP 11/30/17 11:47 11/30/17 11:47 Problem List - Problems (1) Pneumonia Assessment/Plan: iv abx prn oxygen id consult Code(s): J18.9 - PNEUMONIA, UNSPECIFIED ORGANISM Qualifiers: Pneumonia type: aspiration pneumonia Aspiration pneumonia type: unspecified Laterality: unspecified laterality Lung location: unspecified part of lung Qualified Code(s): J69.0 - Pneumonitis due to inhalation of food and vomit (2) Cerebral palsy Code(s): G80.9 - CEREBRAL PALSY, UNSPECIFIED (3) Mental retardation Code(s): F79 - UNSPECIFIED INTELLECTUAL DISABILITIES (4) Seizure disorder Assessment/Plan: on meds stable Code(s): G40.909 - EPILEPSY, UNSP, NOT INTRACTABLE, WITHOUT STATUS EPILEPTICUS Assessment/Plan Laboratory Tests 11/30/17 11/30/17 11:47 11:47 WBC 10.1 H D RBC 3.33 L D Hgb 11.3 D Hct 32.8 D MCV 98.7 H MCH 34.1 H MCHC 34.6 RDW 15.8 H Plt Count 153 D MPV 9.3 Absolute Neuts (auto) 9.0 Neutrophils % 88.8 H Lymphocytes % 6.6 L D Monocytes % 4.4 Eosinophils % 0.1 Basophils % 0.1 Nucleated RBC % 0 Sodium 134 L Potassium 3.5 Chloride 103 Carbon Dioxide 23 Anion Gap 8 BUN 12 Creatinine 0.4 L Creat Clearance w eGFR > 60 Random Glucose 90 Calcium 8.7 Total Bilirubin 0.3 D AST 48 H ALT 190 H Alkaline Phosphatase 299 H Total Protein 7.0 Albumin 2.9 L Active Medications Generic Name Dose Route Start Last Admin Trade Name Freq PRN Reason Stop Dose Admin Albuterol/Ipratropium amp 11/30/17 18:45 Duoneb - NEB Q4H [facility]END[facility] Baclofen 5 mg 11/30/17 22:00 Lioresal - GT TID [facility]END[facility] Diazepam 10 mg 11/30/17 18:45 Diastat Rectal Gel - RC PRN PENDING SALE TO [facility] Heparin Sodium (Porcine) 5,000 unit 11/30/17 22:00 Heparin - SQ BID PENDING S[facility] TO [facility] Piperacillin Sod/Tazobactam 50 mls @ 100 mls/hr 12/01/17 02:00 Sod 3.375 gm/ Dextrose IVPB Q8H-IV [facility] Protocol Non-Formulary Medication 2,000 unit 12/01/17 10:00 Cholecalciferol (Vitamin D3) [Vitamin D3] GT DAILY [facility]END[facility] S[facility] TO [facility] Non-Formulary Medication 15 gm 11/30/17 22:00 Lactulose [Lactulose] GT TID [facility] S[facility] TO [facility] Non-Formulary Medication 1,500 mg 11/30/17 22:00 Levetiracetam [Levetiracetam] GT BID [facility] Non-Formulary Medication 180 mg 12/01/17 10:00 Oxcarbazepine [Trileptal] GT DAILY [facility] Nystatin 1 applic 11/30/17 18:32 Mycostatin Ointment - TP PRN PRN FOR ITCHING Senna tab 11/30/17 22:00 Senna - PO BID [facility]END[facility] S[facility] TO [facility] Topiramate 200 mg 11/30/17 22:00 Topamax - GT BID [facility]
[2017-11-30] MEDS ORDERED: NYSTATIN 100000 UNIT/GM TOPICAL OINTMENT 15 GM TUBE TP PRN (18:32)
[2017-11-30] MEDS ORDERED: diazePAM ACUDIAL 5-7.5-10 MG 1 EACH KIT RC SCH (18:45)
[2017-12-01] MEDS: LACTULOSE 20 GM/30 ML UDC (FOR ORAL USE ONLY) GT SCH ×4 (00:02→21:16)
[2017-12-01] MEDS: BACLOFEN 10 MG TABLET (FP) GT SCH ×4 (00:02→21:16)
[2017-12-01] MEDS: SENNOSIDES 8.6MG TABLET (FP) PO SCH ×3 (00:02→21:16)
[2017-12-01] MEDS: HEPARIN NA (PORCINE) 5,000 UNITS/ML 1ML VIAL SQ SCH ×3 (00:02→21:16)
[2017-12-01] MEDS: TOPIRAMATE 200 MG TABLET (FP) GT SCH ×3 (00:40→21:16)
[2017-12-01] MEDS: levETIRAcetam 500 MG/5 ML ORAL SOLUTION BULK GT SCH ×3 (00:40→21:17)
[2017-12-01] MEDS ORDERED: PIPERACILLIN/TAZOBACTAM 3.375 GM VIAL IVPB ONE ×3 (01:35→17:32)
[2017-12-01] MEDS ORDERED: DEXTROSE 5%-WATER - 50 ML IVPB ONE ×3 (01:36→17:32)
[2017-12-01] MEDS: PIPERACILLIN/TAZOB 3.375 GM 3.375 GM in DEXTROSE 5%-WATER - 50 ML IVPB SCH ×3 (01:55→17:34)
[2017-12-01] MEDS: ALBUTEROL SO4 2.5/IPRATROPIUM 0.5 INH SOL 3 ML VIAL.NEB. NEB SCH ×5 (07:10→21:26)
[2017-12-01] MEDS: CHOLECALCIFEROL (VITAMIN D3) 1,000 UNIT TABLET (FP) GT SCH (09:48)
[2017-12-01] MEDS ORDERED: PT OWN MED DRAWER 7, Y5N ONE ×4 (09:51→20:49)
[2017-12-01] MEDS: OXcarbazepine 300 MG/5 ML 250 ML BULK BOTTLE GT SCH (09:55)
[2017-12-01 13:06] VITALS: BMI 33.5
--- NOTE | 2017-12-01 16:04 | PN ---
Progress Note, Physician History of Present Illness: still very congested more awake than before still with cough on face mask - Current Medication List Current Medications: Active Medications Albuterol/Ipratropium (Duoneb -) 1 amp NEB Q4HWA [facility] Last Admin: 12/01/17 14:00 Dose: 1 amp Baclofen (Lioresal -) 5 mg GT TID [facility] Last Admin: 12/01/17 14:01 Dose: 5 mg Cholecalciferol (Vitamin D3 -) 2,000 unit GT DAILY [facility] Last Admin: 12/01/17 09:48 Dose: 2,000 unit Diazepam (Diastat Rectal Gel -) 10 mg RC PRN [facility] Heparin Sodium (Porcine) (Heparin -) 5,000 unit SQ BID [facility] Last Admin: 12/01/17 09:47 Dose: 5,000 unit Piperacillin Sod/Tazobactam (Sod 3.375 gm/ Dextrose) 50 mls @ 100 mls/hr IVPB Q8H-IV [facility]; Protocol Last Admin: 12/01/17 09:47 Dose: 100 mls/hr Lactulose (Cephulac (Oral Use)) 15 gm GT TID [facility] Last Admin: 12/01/17 14:02 Dose: 15 gm Levetiracetam (Levetiracetam Oral Suspension) 1,500 mg GT BID [facility] Last Admin: 12/01/17 09:53 Dose: 1,500 mg Nystatin (Mycostatin Ointment -) 1 applic TP DAILY PRN PRN Reason: FOR ITCHING Oxcarbazepine (Trileptal) 180 mg GT DAILY [facility] Last Admin: 12/01/17 09:55 Dose: 180 mg Senna (Senna -) 1 tab PO BID [facility] Last Admin: 12/01/17 09:48 Dose: 1 tab Topiramate (Topamax -) 200 mg GT BID [facility] Last Admin: 12/01/17 09:55 Dose: 200 mg - Objective Vital Signs: Vital Signs Temperature 97.5 F L 12/01/17 14:57 Pulse Rate 83 12/01/17 14:57 Respiratory Rate 20 12/01/17 14:57 Blood Pressure 107/64 12/01/17 14:57 O2 Sat by Pulse Oximetry (%) 91 L 12/01/17 12:41 Constitutional: Yes: Calm, Mild Distress Cardiovascular: Yes: Regular Rate and Rhythm Respiratory: Yes: On Venti-Mask, Poor Air Entry, Rhonchi Gastrointestinal: Yes: Normal Bowel Sounds, Soft, Other (peg tube in place) Musculoskeletal: Yes: WNL Extremities: Yes: Other (contracted) Neurological: Yes: Alert, Other Psychiatric: Yes: Other Labs: CBC, BMP 11/30/17 11:47 11/30/17 11:47 Assessment/Plan Assessment/Plan Problem List - Problems (1) Pneumonia Code(s): J18.9 - PNEUMONIA, UNSPECIFIED ORGANISM Qualifiers: Pneumonia type: due to unspecified organism Laterality: unspecified laterality Lung location: unspecified part of lung Qualified Code(s): J18.9 - Pneumonia, unspecified organism (2) Acute respiratory failure with hypoxia Code(s): J96.01 - ACUTE RESPIRATORY FAILURE WITH HYPOXIA (3) Cerebral palsy Code(s): G80.9 - CEREBRAL PALSY, UNSPECIFIED (4) Functional quadriplegia Code(s): R53.2 - FUNCTIONAL QUADRIPLEGIA (5) Mental retardation Code(s): F79 - UNSPECIFIED INTELLECTUAL DISABILITIES (6) Seizure disorder Code(s): G40.909 - EPILEPSY, UNSP, NOT INTRACTABLE, WITHOUT STATUS EPILEPTICUS plan continue zosyn hydration monitor closely for resp failure rest continue current mgmt keeping npo for now aspiration precautions
--- NOTE | 2017-12-01 17:18 | PN ---
Progress Note, Physician - Current Medication List Current Medications: Active Medications Albuterol/Ipratropium (Duoneb -) 1 amp NEB Q4HWA [facility] Last Admin: 12/01/17 14:00 Dose: 1 amp Baclofen (Lioresal -) 5 mg GT TID [facility] Last Admin: 12/01/17 14:01 Dose: 5 mg Cholecalciferol (Vitamin D3 -) 2,000 unit GT DAILY [facility] Last Admin: 12/01/17 09:48 Dose: 2,000 unit Diazepam (Diastat Rectal Gel -) 10 mg RC PRN [facility] Heparin Sodium (Porcine) (Heparin -) 5,000 unit SQ BID [facility] Last Admin: 12/01/17 09:47 Dose: 5,000 unit Piperacillin Sod/Tazobactam (Sod 3.375 gm/ Dextrose) 50 mls @ 100 mls/hr IVPB Q8H-IV [facility]; Protocol Last Admin: 12/01/17 09:47 Dose: 100 mls/hr Lactulose (Cephulac (Oral Use)) 15 gm GT TID [facility] Last Admin: 12/01/17 14:02 Dose: 15 gm Levetiracetam (Levetiracetam Oral Suspension) 1,500 mg GT BID [facility] Last Admin: 12/01/17 09:53 Dose: 1,500 mg Nystatin (Mycostatin Ointment -) 1 applic TP DAILY PRN PRN Reason: FOR ITCHING Oxcarbazepine (Trileptal) 180 mg GT DAILY [facility] Last Admin: 12/01/17 09:55 Dose: 180 mg Senna (Senna -) 1 tab PO BID [facility] Last Admin: 12/01/17 09:48 Dose: 1 tab Topiramate (Topamax -) 200 mg GT BID [facility] Last Admin: 12/01/17 09:55 Dose: 200 mg - Objective Vital Signs: Vital Signs Temperature 97.5 F L 12/01/17 14:57 Pulse Rate 83 12/01/17 14:57 Respiratory Rate 20 12/01/17 14:57 Blood Pressure 107/64 12/01/17 14:57 O2 Sat by Pulse Oximetry (%) 91 L 12/01/17 12:41 Constitutional: Yes: No Distress HENT: Yes: Atraumatic Neck: Yes: Supple Cardiovascular: Yes: Regular Rate and Rhythm Respiratory: Yes: Rhonchi, Wheezes Gastrointestinal: Yes: Normal Bowel Sounds Extremities: Yes: Deformity Neurological: Yes: Alert Labs: CBC, BMP 11/30/17 11:47 11/30/17 11:47 Problem List - Problems (1) Pneumonia Assessment/Plan: iv abx prn oxygen Code(s): J18.9 - PNEUMONIA, UNSPECIFIED ORGANISM Qualifiers: Pneumonia type: aspiration pneumonia Aspiration pneumonia type: unspecified Laterality: unspecified laterality Lung location: unspecified part of lung Qualified Code(s): J69.0 - Pneumonitis due to inhalation of food and vomit (2) Cerebral palsy Code(s): G80.9 - CEREBRAL PALSY, UNSPECIFIED (3) Mental retardation Code(s): F79 - UNSPECIFIED INTELLECTUAL DISABILITIES (4) Seizure disorder Assessment/Plan: on meds stable Code(s): G40.909 - EPILEPSY, UNSP, NOT INTRACTABLE, WITHOUT STATUS EPILEPTICUS
[2017-12-02] MEDS ORDERED: PIPERACILLIN/TAZOBACTAM 3.375 GM VIAL IVPB ONE ×3 (00:35→17:47)
[2017-12-02] MEDS ORDERED: DEXTROSE 5%-WATER - 50 ML IVPB ONE ×3 (00:35→17:47)
[2017-12-02] MEDS: PIPERACILLIN/TAZOB 3.375 GM 3.375 GM in DEXTROSE 5%-WATER - 50 ML IVPB SCH ×3 (02:39→17:52)
[2017-12-02] MEDS: LACTULOSE 20 GM/30 ML UDC (FOR ORAL USE ONLY) GT SCH ×3 (05:21→21:09)
[2017-12-02] MEDS: BACLOFEN 10 MG TABLET (FP) GT SCH ×3 (05:21→21:09)
[2017-12-02] MEDS: ALBUTEROL SO4 2.5/IPRATROPIUM 0.5 INH SOL 3 ML VIAL.NEB. NEB SCH ×5 (06:51→21:11)
[2017-12-02] MEDS ORDERED: PT OWN MED DRAWER 7, Y5N ONE (10:19)
[2017-12-02] MEDS: HEPARIN NA (PORCINE) 5,000 UNITS/ML 1ML VIAL SQ SCH ×2 (10:35→21:09)
[2017-12-02] MEDS: levETIRAcetam 500 MG/5 ML ORAL SOLUTION BULK GT SCH ×2 (10:36→21:09)
[2017-12-02] MEDS: TOPIRAMATE 200 MG TABLET (FP) GT SCH ×2 (10:36→21:10)
[2017-12-02] MEDS: SENNOSIDES 8.6MG TABLET (FP) PO SCH ×2 (10:36→21:09)
[2017-12-02] MEDS: OXcarbazepine 300 MG/5 ML 250 ML BULK BOTTLE GT SCH (10:37)
[2017-12-02] MEDS: CHOLECALCIFEROL (VITAMIN D3) 1,000 UNIT TABLET (FP) GT SCH (10:37)
--- NOTE | 2017-12-02 13:18 | PN ---
Progress Note, Physician History of Present Illness: patient stable no new issues looking better breathing better - Current Medication List Current Medications: Active Medications Albuterol/Ipratropium (Duoneb -) 1 amp NEB Q4HWA [facility] Last Admin: 12/02/17 10:25 Dose: 1 amp Baclofen (Lioresal -) 5 mg GT TID [facility] Last Admin: 12/02/17 05:21 Dose: 5 mg Cholecalciferol (Vitamin D3 -) 2,000 unit GT DAILY [facility] Last Admin: 12/02/17 10:37 Dose: 2,000 unit Diazepam (Diastat Rectal Gel -) 10 mg RC PRN [facility] Heparin Sodium (Porcine) (Heparin -) 5,000 unit SQ BID [facility] Last Admin: 12/02/17 10:35 Dose: 5,000 unit Piperacillin Sod/Tazobactam (Sod 3.375 gm/ Dextrose) 50 mls @ 100 mls/hr IVPB Q8H-IV [facility]; Protocol Last Admin: 12/02/17 10:31 Dose: 100 mls/hr Lactulose (Cephulac (Oral Use)) 15 gm GT TID [facility] Last Admin: 12/02/17 05:21 Dose: 15 gm Levetiracetam (Levetiracetam Oral Suspension) 1,500 mg GT BID [facility] Last Admin: 12/02/17 10:36 Dose: 1,500 mg Nystatin (Mycostatin Ointment -) 1 applic TP DAILY PRN PRN Reason: FOR ITCHING Oxcarbazepine (Trileptal) 180 mg GT DAILY [facility] Last Admin: 12/02/17 10:37 Dose: 180 mg Senna (Senna -) 1 tab PO BID [facility] Last Admin: 12/02/17 10:36 Dose: 1 tab Topiramate (Topamax -) 200 mg GT BID [facility] Last Admin: 12/02/17 10:36 Dose: 200 mg - Objective Vital Signs: Vital Signs Temperature 97.6 F 12/02/17 10:13 Pulse Rate 81 12/02/17 10:13 Respiratory Rate 22 12/02/17 10:13 Blood Pressure 110/71 12/02/17 10:13 O2 Sat by Pulse Oximetry (%) 96 12/01/17 20:24 Constitutional: Yes: No Distress, Calm Cardiovascular: Yes: Regular Rate and Rhythm Respiratory: Yes: On Venti-Mask, Poor Air Entry, Rhonchi Gastrointestinal: Yes: Normal Bowel Sounds, Soft, Other (peg tube in place) Musculoskeletal: Yes: WNL Extremities: Yes: WNL Neurological: Yes: Alert, Other Labs: CBC, BMP 11/30/17 11:47 11/30/17 11:47 Assessment/Plan Assessment/Plan Problem List - Problems (1) Pneumonia Code(s): J18.9 - PNEUMONIA, UNSPECIFIED ORGANISM Qualifiers: Pneumonia type: due to unspecified organism Laterality: unspecified laterality Lung location: unspecified part of lung Qualified Code(s): J18.9 - Pneumonia, unspecified organism (2) Acute respiratory failure with hypoxia Code(s): J96.01 - ACUTE RESPIRATORY FAILURE WITH HYPOXIA (3) Cerebral palsy Code(s): G80.9 - CEREBRAL PALSY, UNSPECIFIED (4) Functional quadriplegia Code(s): R53.2 - FUNCTIONAL QUADRIPLEGIA (5) Mental retardation Code(s): F79 - UNSPECIFIED INTELLECTUAL DISABILITIES (6) Seizure disorder Code(s): G40.909 - EPILEPSY, UNSP, NOT INTRACTABLE, WITHOUT STATUS EPILEPTICUS plan continue zosyn hydration monitor closely for resp failure rest continue current mgmt start feeding
[2017-12-02] MEDS ORDERED: diazePAM ACUDIAL 5-7.5-10 MG 1 EACH KIT RC PRN (14:44)
--- NOTE | 2017-12-02 14:55 | RAPID ---
Physical Examination Vital Signs: Vital Signs Temperature 97.9 F 12/02/17 13:44 Pulse Rate 77 12/02/17 13:44 Respiratory Rate 22 12/02/17 13:44 Blood Pressure 91/63 12/02/17 13:44 O2 Sat by Pulse Oximetry (%) 96 12/01/17 20:24 Findings/Remarks: Rapid response called this afternoon, as pt was witnessed to have a seizure by family. As per family, pt seized for 15 second duration, with tonic clonic movements seen in upper and lower extremities. Eyes rolled back. Episode is typical of pt's seizures. Family is unsure of last episode, as pt is from [facility]. Pt seen and examined. Resting comfortably in bed, team did not witness seizure activity upon arrival. Vital signs -99/67 mmHg -HR 78 bpm -RR 18/min -02 sat: 97% on 40% 02 venti mask PE -PULM: b/l air entry present, no accessory m usage. b/l coarse breath sounds -CVS: S1, S2 normal, RRR -NEURO: no active seizure witnessed upon arrival. pupils b/l reactive to light. without tonic-clonic motions noted -EXTREMITIES: 2+ radial pulses, with wrist hyperflexion b/l. PLAN -Stat labs ordered: CBC, CMP, mg -continue topimax, keppra, trileptal -F/u stat Keppra level to determine whether therapeutic -Diazepam-rectal ordered 10mg PRN daily -Neuro consult: Dr. Cordero -aspiration precautions, elevate HOB -seizure precautions, padding Labs: CBC, BMP 11/30/17 11:47 11/30/17 11:47
[2017-12-02] MEDS ORDERED: ACETAMINOPHEN 650 MG/20.3 ML ORAL SOLUTION (CUPS) PO PRN (16:59)
--- NOTE | 2017-12-02 17:06 | PN ---
Progress Note, Physician History of Present Illness: all previous noted - Current Medication List Current Medications: Active Medications Acetaminophen (Tylenol Oral Solution -) 650 mg PO Q6H PRN PRN Reason: PAIN Albuterol/Ipratropium (Duoneb -) 1 amp NEB Q4HWA [facility] Last Admin: 12/02/17 14:43 Dose: 1 amp Baclofen (Lioresal -) 5 mg GT TID [facility] Last Admin: 12/02/17 15:02 Dose: Not Given Cholecalciferol (Vitamin D3 -) 2,000 unit GT DAILY [facility] Last Admin: 12/02/17 10:37 Dose: 2,000 unit Diazepam (Diastat Rectal Gel -) 10 mg RC DAILY PRN PRN Reason: seizure Last Admin: 12/02/17 16:32 Dose: 10 mg Heparin Sodium (Porcine) (Heparin -) 5,000 unit SQ BID [facility] Last Admin: 12/02/17 10:35 Dose: 5,000 unit Piperacillin Sod/Tazobactam (Sod 3.375 gm/ Dextrose) 50 mls @ 100 mls/hr IVPB Q8H-IV [facility]; Protocol Last Admin: 12/02/17 10:31 Dose: 100 mls/hr Lactulose (Cephulac (Oral Use)) 15 gm GT TID [facility] Last Admin: 12/02/17 15:02 Dose: Not Given Levetiracetam (Levetiracetam Oral Suspension) 1,500 mg GT BID [facility] Last Admin: 12/02/17 10:36 Dose: 1,500 mg Nystatin (Mycostatin Ointment -) 1 applic TP DAILY PRN PRN Reason: FOR ITCHING Oxcarbazepine (Trileptal) 180 mg GT DAILY [facility] Last Admin: 12/02/17 10:37 Dose: 180 mg Senna (Senna -) 1 tab PO BID [facility] Last Admin: 12/02/17 10:36 Dose: 1 tab Topiramate (Topamax -) 200 mg GT BID [facility] Last Admin: 12/02/17 10:36 Dose: 200 mg - Objective Vital Signs: Vital Signs Temperature 97.6 F 12/02/17 15:19 Pulse Rate 78 12/02/17 15:19 Respiratory Rate 22 12/02/17 15:19 Blood Pressure 99/67 12/02/17 15:19 O2 Sat by Pulse Oximetry (%) 96 12/01/17 20:24 Constitutional: Yes: Calm HENT: Yes: Atraumatic Neck: Yes: Supple Cardiovascular: Yes: Regular Rate and Rhythm Respiratory: Yes: Rhonchi, Wheezes Gastrointestinal: Yes: Normal Bowel Sounds, Other (peg in place) Extremities: Yes: Other (contracted) Neurological: Yes: Alert Labs: CBC, BMP 11/30/17 11:47 11/30/17 11:47 Problem List - Problems (1) Pneumonia Assessment/Plan: iv abx prn oxygen Code(s): J18.9 - PNEUMONIA, UNSPECIFIED ORGANISM Qualifiers: Pneumonia type: aspiration pneumonia Aspiration pneumonia type: unspecified Laterality: unspecified laterality Lung location: unspecified part of lung Qualified Code(s): J69.0 - Pneumonitis due to inhalation of food and vomit (2) Cerebral palsy Code(s): G80.9 - CEREBRAL PALSY, UNSPECIFIED (3) Mental retardation Code(s): F79 - UNSPECIFIED INTELLECTUAL DISABILITIES (4) Seizure disorder Assessment/Plan: pt had seizures today on prn valium now Code(s): G40.909 - EPILEPSY, UNSP, NOT INTRACTABLE, WITHOUT STATUS EPILEPTICUS Assessment/Plan discussed in detail karina MCCOY [phone] WHO IS [employer], 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
[2017-12-02 17:08] LABS: BASO % 0.4 % (0-2.0); EOS % 0.8 % (0-4.5); HEMATOCRIT 32.1 % (32.4-45.2); HEMOGLOBIN 10.6 GM/dL (10.7-15.3); LYMPH % 41.5 % (8-40); MCH 33.1 pg (25.7-33.7); MEAN CELL VOLUME 100.5 fl (80-96); MEAN PLT VOLUME 8.9 fl (7.5-11.1); MONO % 12.3 % (3.8-10.2); PLATELET COUNT 180 K/MM3 (134-434); RBC 3.19 M/mm3 (3.60-5.2); RDW 16.1 % (11.6-15.6); WHITE BLOOD COUNT 4.1 K/mm3 (4.0-10.0)
[2017-12-02 17:46] LABS: ALBUMIN 2.7 g/dl (3.4-5.0); ALK PHOS 468 U/L (45-117); ANION GAP 7 (8-16); BILIRUBIN,TOTAL 0.2 mg/dL (0.2-1.0); BLOOD UREA NITROGEN 14 mg/dL (7-18); CALCIUM 8.8 mg/dL (8.5-10.1); CHLORIDE 110 mmol/L (98-107); CO2 24 mmol/L (21-32); CREATININE 0.4 mg/dL (0.55-1.02); GLUCOSE,RANDOM 98 mg/dL (74-106); POTASSIUM 3.9 mmol/L (3.5-5.1); SGOT/AST 73 U/L (15-37); SGPT/ALT 146 U/L (12-78); SODIUM 141 mmol/L (136-145); TOT PROT 6.8 g/dl (6.4-8.2)
[2017-12-03] MEDS ORDERED: PIPERACILLIN/TAZOBACTAM 3.375 GM VIAL IVPB ONE ×3 (00:22→17:09)
[2017-12-03] MEDS ORDERED: DEXTROSE 5%-WATER - 50 ML IVPB ONE ×3 (00:22→17:09)
[2017-12-03] MEDS: PIPERACILLIN/TAZOB 3.375 GM 3.375 GM in DEXTROSE 5%-WATER - 50 ML IVPB SCH ×3 (02:32→17:12)
[2017-12-03] MEDS: BACLOFEN 10 MG TABLET (FP) GT SCH ×3 (05:35→22:00)
[2017-12-03] MEDS: LACTULOSE 20 GM/30 ML UDC (FOR ORAL USE ONLY) GT SCH ×3 (05:35→21:59)
[2017-12-03] MEDS: ALBUTEROL SO4 2.5/IPRATROPIUM 0.5 INH SOL 3 ML VIAL.NEB. NEB SCH ×5 (06:40→21:22)
--- NOTE | 2017-12-03 08:44 | CON.NEURO ---
Consult - Past Medical History LATHE SANDER: Yes: Seizure, Other (CP) Pulmonary: Yes: Asthma, Pneumonia - Alcohol/Substance Use Hx Alcohol Use: No - Smoking History Smoking history: Never smoked Have you smoked in the past 12 months: No Aproximately how many cigarettes per day: 0 - Social History Usual Living Arrangement: Care Home History of Recent Travel: No Home Medications - Allergies Allergies/Adverse Reactions: Allergies Allergy/AdvReac Type Severity Reaction Status Date / Time No Known Allergies Allergy Verified 02/05/17 12:40 - Home Medications Home Medications: Ambulatory Orders Albuterol 0.083% Nebulizer Sobeida [Ventolin 0.083% Nebulizer Soln -] 1 neb NEB PRN PRN 02/05/17 Baclofen 5 mg GT TID 02/05/17 Cholecalciferol (Vitamin D3) [Vitamin D3] 2,000 unit GT DAILY 02/05/17 Lactulose 15 gm GT TID 02/05/17 Levetiracetam 1,500 mg GT BID 02/05/17 Nystatin Ointment [Mycostatin Ointment -] 1 applic TP PRN PRN 02/05/17 OXcarbazepine [Trileptal] 180 mg GT DAILY 02/05/17 OXcarbazepine [Trileptal] 210 mg GT HS 02/05/17 Topiramate 200 mg GT BID 02/05/17 Topiramate [Trokendi Xr] 25 mg GT BID 02/05/17 Albuterol 2.5/Ipratropium 0.5 [Duoneb -] 1 neb NEB Q4H 11/30/17 Diazepam Rectal Gel [Diastat Rectal Gel -] 10 mg ME PRN 11/30/17 Nutritional Supplement [Promote] 120 ml PO ASDIR 11/30/17 Sennosides [Senna] 8.6 mg PO BID 11/30/17 Physical Exam-Neuro Vital Signs: Vital Signs Temperature 97.4 F L 12/03/17 06:20 Pulse Rate 86 12/03/17 06:20 Respiratory Rate 20 12/03/17 06:20 Blood Pressure 101/66 12/03/17 06:20 O2 Sat by Pulse Oximetry (%) 99 12/02/17 21:00 Labs: CBC, BMP 12/02/17 16:00 12/02/17 16:00 Assessment/Plan cc Breakthrough seizure HPI 27 year old female hitory of cerebral palsy and quadreplegic, epilepsy.She is being treated for pneumonia at hospital. Patient is on three AED and getting diazepam prn. There has been two episode of seizure and rapid response team was called. PMH as above SH,LAZARUS,FH reviewed in chart NKDA Home Medications: Albuterol 0.083% Nebulizer Sobeida [Ventolin 0.083% Nebulizer Soln -] 1 neb NEB PRN PRN 02/05/17 Baclofen 5 mg GT TID 02/05/17 Cholecalciferol (Vitamin D3) [Vitamin D3] 2,000 unit GT DAILY 02/05/17 Lactulose 15 gm GT TID 02/05/17 Levetiracetam 1,500 mg GT BID 02/05/17 Nystatin Ointment [Mycostatin Ointment -] 1 applic TP PRN PRN 02/05/17 OXcarbazepine [Trileptal] 180 mg GT DAILY 02/05/17 OXcarbazepine [Trileptal] 210 mg GT HS 02/05/17 Topiramate 200 mg GT BID 02/05/17 Topiramate [Trokendi Xr] 25 mg GT BID 02/05/17 Albuterol 2.5/Ipratropium 0.5 [Duoneb -] 1 neb NEB Q4H 11/30/17 Diazepam Rectal Gel [Diastat Rectal Gel -] 10 mg ME PRN 11/30/17 Nutritional Supplement [Promote] 120 ml PO ASDIR 11/30/17 Sennosides [Senna] 8.6 mg PO BID 11/30/17 Neurological Examination Sleepy and opens eye to painful stimuli. pupils reactive, no face asymmetry both arms and legs are contract NECK STIFFNESS ABSENT NO brain imaging done during hospitalization Assessment- Breakthrough seizure, Medication reviewed , Intercurrent infection can worsen seizure and clinically there is no evidence of Meningitis. it appears she was taking additional dose of trileptal 210 mg and topamax 25 mg po bid, will resume home meds Plan- add trileptal 210 mg po qhs - add topamax 25 mg po bid - no need for brain imaging or spinal tap at this time Thanking you so much Teodoro Cordero MD
[2017-12-03] MEDS ORDERED: PT OWN MED DRAWER 7, Y5N ONE ×2 (09:11→21:34)
[2017-12-03] MEDS: SENNOSIDES 8.6MG TABLET (FP) PO SCH ×2 (09:30→22:00)
[2017-12-03] MEDS: TOPIRAMATE 200 MG TABLET (FP) GT SCH ×2 (09:30→22:01)
[2017-12-03] MEDS: levETIRAcetam 500 MG/5 ML ORAL SOLUTION BULK GT SCH ×2 (09:31→22:00)
[2017-12-03] MEDS: OXcarbazepine 300 MG/5 ML 250 ML BULK BOTTLE GT SCH (09:31)
[2017-12-03] MEDS: HEPARIN NA (PORCINE) 5,000 UNITS/ML 1ML VIAL SQ SCH ×2 (09:31→21:59)
[2017-12-03] MEDS: CHOLECALCIFEROL (VITAMIN D3) 1,000 UNIT TABLET (FP) GT SCH (09:32)
[2017-12-03] MEDS: TOPIRAMATE 25 MG TABLET (FP) PO SCH (09:32)
[2017-12-03 09:34] LABS: BASO % 0.3 % (0-2.0); EOS % 0.8 % (0-4.5); HEMATOCRIT 28.7 % (32.4-45.2); HEMOGLOBIN 9.6 GM/dL (10.7-15.3); LYMPH % 44.1 % (8-40); MCH 33.3 pg (25.7-33.7); MCHC 33.5 g/dl (32.0-36.0); MEAN CELL VOLUME 99.5 fl (80-96); MEAN PLT VOLUME 8.4 fl (7.5-11.1); MONO % 9.1 % (3.8-10.2); NEUT % 45.7 % (42.8-82.8); PLATELET COUNT 148 K/MM3 (134-434); RBC 2.89 M/mm3 (3.60-5.2); RDW 15.9 % (11.6-15.6); WHITE BLOOD COUNT 4.3 K/mm3 (4.0-10.0)
[2017-12-03 10:02] LABS: ANION GAP 7 (8-16); BLOOD UREA NITROGEN 14 mg/dL (7-18); CALCIUM 8.5 mg/dL (8.5-10.1); CHLORIDE 110 mmol/L (98-107); CO2 24 mmol/L (21-32); CREATININE 0.4 mg/dL (0.55-1.02); GLUCOSE,RANDOM 83 mg/dL (74-106); POTASSIUM 3.8 mmol/L (3.5-5.1); SODIUM 141 mmol/L (136-145)
--- NOTE | 2017-12-03 13:03 | PN ---
Progress Note, Physician History of Present Illness: Pt seen and examined. Events noted. Afebrile, without acute distress at this time. - Current Medication List Current Medications: Active Medications Acetaminophen (Tylenol Oral Solution -) 650 mg PO Q6H PRN PRN Reason: PAIN Albuterol/Ipratropium (Duoneb -) 1 amp NEB Q4HWA [facility] Last Admin: 12/03/17 09:25 Dose: 1 amp Baclofen (Lioresal -) 5 mg GT TID [facility] Last Admin: 12/03/17 05:35 Dose: 5 mg Cholecalciferol (Vitamin D3 -) 2,000 unit GT DAILY [facility] Last Admin: 12/03/17 09:32 Dose: 2,000 unit Diazepam (Diastat Rectal Gel -) 10 mg RC DAILY PRN PRN Reason: seizure Last Admin: 12/02/17 16:32 Dose: 10 mg Heparin Sodium (Porcine) (Heparin -) 5,000 unit SQ BID [facility] Last Admin: 12/03/17 09:31 Dose: 5,000 unit Piperacillin Sod/Tazobactam (Sod 3.375 gm/ Dextrose) 50 mls @ 100 mls/hr IVPB Q8H-IV [facility]; Protocol Last Admin: 12/03/17 09:30 Dose: 100 mls/hr Lactulose (Cephulac (Oral Use)) 15 gm GT TID [facility] Last Admin: 12/03/17 05:35 Dose: 15 gm Levetiracetam (Levetiracetam Oral Suspension) 1,500 mg GT BID [facility] Last Admin: 12/03/17 09:31 Dose: 1,500 mg Nystatin (Mycostatin Ointment -) 1 applic TP DAILY PRN PRN Reason: FOR ITCHING Oxcarbazepine (Trileptal) 210 mg GT DAILY [facility] Last Admin: 12/03/17 09:31 Dose: 210 mg Senna (Senna -) 1 tab PO BID [facility] Last Admin: 12/03/17 09:30 Dose: 1 tab Topiramate (Topamax -) 200 mg GT BID [facility] Last Admin: 12/03/17 09:30 Dose: 200 mg Topiramate (Topamax -) 25 mg PO DAILY [facility] Last Admin: 12/03/17 09:32 Dose: 25 mg - Objective Vital Signs: Vital Signs Temperature 97.4 F L 12/03/17 06:20 Pulse Rate 86 12/03/17 06:20 Respiratory Rate 20 12/03/17 06:20 Blood Pressure 101/66 12/03/17 06:20 O2 Sat by Pulse Oximetry (%) 99 12/02/17 21:00 Constitutional: Yes: No Distress Cardiovascular: Yes: Regular Rate and Rhythm Respiratory: Yes: Other (b/l coarse BS) Gastrointestinal: Yes: Normal Bowel Sounds, Soft Labs: CBC, BMP 12/03/17 09:10 12/03/17 09:10 - ....Imaging Chest X-ray: Report Reviewed (b/l congestion/infiltrates) Problem List - Problems (1) Pneumonia Code(s): J18.9 - PNEUMONIA, UNSPECIFIED ORGANISM Qualifiers: Pneumonia type: aspiration pneumonia Aspiration pneumonia type: unspecified Laterality: unspecified laterality Lung location: unspecified part of lung Qualified Code(s): J69.0 - Pneumonitis due to inhalation of food and vomit (2) Cerebral palsy Code(s): G80.9 - CEREBRAL PALSY, UNSPECIFIED (3) Functional quadriplegia Code(s): R53.2 - FUNCTIONAL QUADRIPLEGIA (4) Mental retardation Code(s): F79 - UNSPECIFIED INTELLECTUAL DISABILITIES (5) Seizure disorder Code(s): G40.909 - EPILEPSY, UNSP, NOT INTRACTABLE, WITHOUT STATUS EPILEPTICUS Assessment/Plan continue Zosyn empirically for now pt remains afebrile aspiration precautions monitor for recurrence of seizures
--- NOTE | 2017-12-03 17:46 | PN ---
Progress Note, Physician History of Present Illness: comfortable - Current Medication List Current Medications: Active Medications Acetaminophen (Tylenol Oral Solution -) 650 mg PO Q6H PRN PRN Reason: PAIN Albuterol/Ipratropium (Duoneb -) 1 amp NEB Q4HWA [facility] Last Admin: 12/03/17 17:16 Dose: 1 amp Baclofen (Lioresal -) 5 mg GT TID [facility] Last Admin: 12/03/17 14:28 Dose: 5 mg Cholecalciferol (Vitamin D3 -) 2,000 unit GT DAILY [facility] Last Admin: 12/03/17 09:32 Dose: 2,000 unit Diazepam (Diastat Rectal Gel -) 10 mg RC DAILY PRN PRN Reason: seizure Last Admin: 12/02/17 16:32 Dose: 10 mg Heparin Sodium (Porcine) (Heparin -) 5,000 unit SQ BID [facility] Last Admin: 12/03/17 09:31 Dose: 5,000 unit Piperacillin Sod/Tazobactam (Sod 3.375 gm/ Dextrose) 50 mls @ 100 mls/hr IVPB Q8H-IV [facility]; Protocol Last Admin: 12/03/17 17:12 Dose: 100 mls/hr Lactulose (Cephulac (Oral Use)) 15 gm GT TID [facility] Last Admin: 12/03/17 14:27 Dose: 15 gm Levetiracetam (Levetiracetam Oral Suspension) 1,500 mg GT BID [facility] Last Admin: 12/03/17 09:31 Dose: 1,500 mg Nystatin (Mycostatin Ointment -) 1 applic TP DAILY PRN PRN Reason: FOR ITCHING Oxcarbazepine (Trileptal) 210 mg GT DAILY [facility] Last Admin: 12/03/17 09:31 Dose: 210 mg Senna (Senna -) 1 tab PO BID [facility] Last Admin: 12/03/17 09:30 Dose: 1 tab Topiramate (Topamax -) 200 mg GT BID [facility] Last Admin: 12/03/17 09:30 Dose: 200 mg Topiramate (Topamax -) 25 mg PO DAILY [facility] Last Admin: 12/03/17 09:32 Dose: 25 mg - Objective Vital Signs: Vital Signs Temperature 96.6 F L 12/03/17 14:41 Pulse Rate 71 06/09/18 14:41 Respiratory Rate 20 12/03/17 14:41 Blood Pressure 97/62 12/03/17 14:41 O2 Sat by Pulse Oximetry (%) 98 12/03/17 09:00 Constitutional: Yes: No Distress HENT: Yes: Atraumatic Neck: Yes: Supple Cardiovascular: Yes: Regular Rate and Rhythm Respiratory: Yes: CTA Bilaterally Gastrointestinal: Yes: Normal Bowel Sounds Extremities: Yes: Deformity Labs: CBC, BMP 12/03/17 09:10 12/03/17 09:10 Problem List - Problems (1) Pneumonia Assessment/Plan: iv abx prn oxygen Code(s): J18.9 - PNEUMONIA, UNSPECIFIED ORGANISM Qualifiers: Pneumonia type: aspiration pneumonia Aspiration pneumonia type: unspecified Laterality: unspecified laterality Lung location: unspecified part of lung Qualified Code(s): J69.0 - Pneumonitis due to inhalation of food and vomit (2) Cerebral palsy Code(s): G80.9 - CEREBRAL PALSY, UNSPECIFIED (3) Mental retardation Code(s): F79 - UNSPECIFIED INTELLECTUAL DISABILITIES (4) Seizure disorder Assessment/Plan: on meds stable Code(s): G40.909 - EPILEPSY, UNSP, NOT INTRACTABLE, WITHOUT STATUS EPILEPTICUS
[2017-12-04] MEDS ORDERED: PT OWN MED DRAWER 7, Y5N ONE ×3 (00:42→21:08)
[2017-12-04] MEDS ORDERED: PIPERACILLIN/TAZOBACTAM 3.375 GM VIAL IVPB ONE ×3 (01:00→17:37)
[2017-12-04] MEDS ORDERED: DEXTROSE 5%-WATER - 50 ML IVPB ONE ×3 (01:00→17:37)
[2017-12-04] MEDS: PIPERACILLIN/TAZOB 3.375 GM 3.375 GM in DEXTROSE 5%-WATER - 50 ML IVPB SCH ×3 (01:46→17:41)
[2017-12-04] MEDS: BACLOFEN 10 MG TABLET (FP) GT SCH ×3 (06:31→21:11)
[2017-12-04] MEDS: LACTULOSE 20 GM/30 ML UDC (FOR ORAL USE ONLY) GT SCH ×3 (06:31→21:09)
[2017-12-04] MEDS: ALBUTEROL SO4 2.5/IPRATROPIUM 0.5 INH SOL 3 ML VIAL.NEB. NEB SCH ×5 (06:40→21:32)
[2017-12-04] MEDS: levETIRAcetam 500 MG/5 ML ORAL SOLUTION BULK GT SCH ×2 (09:22→21:12)
[2017-12-04] MEDS: SENNOSIDES 8.6MG TABLET (FP) PO SCH ×2 (09:23→21:11)
[2017-12-04] MEDS: HEPARIN NA (PORCINE) 5,000 UNITS/ML 1ML VIAL SQ SCH ×2 (09:23→21:10)
[2017-12-04] MEDS: OXcarbazepine 300 MG/5 ML 250 ML BULK BOTTLE GT SCH (09:27)
[2017-12-04] MEDS: CHOLECALCIFEROL (VITAMIN D3) 1,000 UNIT TABLET (FP) GT SCH (09:27)
[2017-12-04] MEDS: TOPIRAMATE 25 MG TABLET (FP) PO SCH (09:28)
[2017-12-04] MEDS: TOPIRAMATE 200 MG TABLET (FP) GT SCH ×2 (09:28→21:12)
--- NOTE | 2017-12-04 14:11 | PN ---
Progress Note, Physician History of Present Illness: Pt is without respiratory distress, remains afebrile. Nonverbal. - Current Medication List Current Medications: Active Medications Acetaminophen (Tylenol Oral Solution -) 650 mg PO Q6H PRN PRN Reason: PAIN Albuterol/Ipratropium (Duoneb -) 1 amp NEB Q4HWA [facility] Last Admin: 12/04/17 13:33 Dose: 1 amp Baclofen (Lioresal -) 5 mg GT TID [facility] Last Admin: 12/04/17 06:31 Dose: 5 mg Cholecalciferol (Vitamin D3 -) 2,000 unit GT DAILY [facility] Last Admin: 12/04/17 09:27 Dose: 2,000 unit Diazepam (Diastat Rectal Gel -) 10 mg RC DAILY PRN PRN Reason: seizure Last Admin: 12/02/17 16:32 Dose: 10 mg Heparin Sodium (Porcine) (Heparin -) 5,000 unit SQ BID [facility] Last Admin: 12/04/17 09:23 Dose: 5,000 unit Piperacillin Sod/Tazobactam (Sod 3.375 gm/ Dextrose) 50 mls @ 100 mls/hr IVPB Q8H-IV [facility]; Protocol Last Admin: 12/04/17 09:29 Dose: 100 mls/hr Lactulose (Cephulac (Oral Use)) 15 gm GT TID [facility] Last Admin: 12/04/17 06:31 Dose: 15 gm Levetiracetam (Levetiracetam Oral Suspension) 1,500 mg GT BID [facility] Last Admin: 12/04/17 09:22 Dose: 1,500 mg Nystatin (Mycostatin Ointment -) 1 applic TP DAILY PRN PRN Reason: FOR ITCHING Oxcarbazepine (Trileptal) 210 mg GT DAILY [facility] Last Admin: 12/04/17 09:27 Dose: 210 mg Senna (Senna -) 1 tab PO BID [facility] Last Admin: 12/04/17 09:23 Dose: 1 tab Topiramate (Topamax -) 200 mg GT BID [facility] Last Admin: 12/04/17 09:28 Dose: 200 mg Topiramate (Topamax -) 25 mg PO DAILY [facility] Last Admin: 12/04/17 09:28 Dose: 25 mg - Objective Vital Signs: Vital Signs Temperature 98.0 F 12/04/17 07:19 Pulse Rate 84 06/10/18 07:19 Respiratory Rate 20 12/04/17 07:19 Blood Pressure 110/66 12/04/17 07:19 O2 Sat by Pulse Oximetry (%) 98 12/03/17 21:00 Constitutional: Yes: No Distress Cardiovascular: Yes: Regular Rate and Rhythm Respiratory: Yes: Other (b/l air entry, no rhonchi) Gastrointestinal: Yes: Normal Bowel Sounds, Soft Labs: CBC, BMP 12/03/17 09:10 12/03/17 09:10 Problem List - Problems (1) Pneumonia Code(s): J18.9 - PNEUMONIA, UNSPECIFIED ORGANISM Qualifiers: Pneumonia type: aspiration pneumonia Aspiration pneumonia type: unspecified Laterality: unspecified laterality Lung location: unspecified part of lung Qualified Code(s): J69.0 - Pneumonitis due to inhalation of food and vomit (2) Cerebral palsy Code(s): G80.9 - CEREBRAL PALSY, UNSPECIFIED (3) Functional quadriplegia Code(s): R53.2 - FUNCTIONAL QUADRIPLEGIA (4) Mental retardation Code(s): F79 - UNSPECIFIED INTELLECTUAL DISABILITIES (5) Seizure disorder Code(s): G40.909 - EPILEPSY, UNSP, NOT INTRACTABLE, WITHOUT STATUS EPILEPTICUS Assessment/Plan 27 y.o. female [place] resident with above history admitted with respiratory distress /hypoxia/ tachycardia continue Zosyn aspiration precautions monitor for recurrence of seizures monitor vitals, currently stable
--- NOTE | 2017-12-04 16:25 | PN ---
Progress Note, Physician History of Present Illness: comfortable - Current Medication List Current Medications: Active Medications Acetaminophen (Tylenol Oral Solution -) 650 mg PO Q6H PRN PRN Reason: PAIN Albuterol/Ipratropium (Duoneb -) 1 amp NEB Q4HWA [facility] Last Admin: 12/04/17 13:33 Dose: 1 amp Baclofen (Lioresal -) 5 mg GT TID [facility] Last Admin: 12/04/17 14:46 Dose: 5 mg Cholecalciferol (Vitamin D3 -) 2,000 unit GT DAILY [facility] Last Admin: 12/04/17 09:27 Dose: 2,000 unit Diazepam (Diastat Rectal Gel -) 10 mg RC DAILY PRN PRN Reason: seizure Last Admin: 12/02/17 16:32 Dose: 10 mg Heparin Sodium (Porcine) (Heparin -) 5,000 unit SQ BID [facility] Last Admin: 12/04/17 09:23 Dose: 5,000 unit Piperacillin Sod/Tazobactam (Sod 3.375 gm/ Dextrose) 50 mls @ 100 mls/hr IVPB Q8H-IV [facility]; Protocol Last Admin: 12/04/17 09:29 Dose: 100 mls/hr Lactulose (Cephulac (Oral Use)) 15 gm GT TID [facility] Last Admin: 12/04/17 14:46 Dose: 15 gm Levetiracetam (Levetiracetam Oral Suspension) 1,500 mg GT BID [facility] Last Admin: 12/04/17 09:22 Dose: 1,500 mg Nystatin (Mycostatin Ointment -) 1 applic TP DAILY PRN PRN Reason: FOR ITCHING Oxcarbazepine (Trileptal) 210 mg GT DAILY [facility] Last Admin: 12/04/17 09:27 Dose: 210 mg Senna (Senna -) 1 tab PO BID [facility] Last Admin: 12/04/17 09:23 Dose: 1 tab Topiramate (Topamax -) 200 mg GT BID [facility] Last Admin: 12/04/17 09:28 Dose: 200 mg Topiramate (Topamax -) 25 mg PO DAILY [facility] Last Admin: 12/04/17 09:28 Dose: 25 mg - Objective Vital Signs: Vital Signs Temperature 97.4 F L 12/04/17 10:00 Pulse Rate 70 06/10/18 10:00 Respiratory Rate 20 12/04/17 10:00 Blood Pressure 100/68 12/04/17 10:00 O2 Sat by Pulse Oximetry (%) 98 12/03/17 21:00 Constitutional: Yes: No Distress HENT: Yes: Atraumatic Neck: Yes: Supple Cardiovascular: Yes: Regular Rate and Rhythm Respiratory: Yes: Rhonchi Gastrointestinal: Yes: Normal Bowel Sounds Extremities: Yes: Deformity Neurological: Yes: Alert Labs: CBC, BMP 12/03/17 09:10 12/03/17 09:10 Problem List - Problems (1) Pneumonia Assessment/Plan: iv abx prn oxygen Code(s): J18.9 - PNEUMONIA, UNSPECIFIED ORGANISM Qualifiers: Pneumonia type: aspiration pneumonia Aspiration pneumonia type: unspecified Laterality: unspecified laterality Lung location: unspecified part of lung Qualified Code(s): J69.0 - Pneumonitis due to inhalation of food and vomit (2) Cerebral palsy Code(s): G80.9 - CEREBRAL PALSY, UNSPECIFIED (3) Mental retardation Code(s): F79 - UNSPECIFIED INTELLECTUAL DISABILITIES (4) Seizure disorder Assessment/Plan: on meds stable Code(s): G40.909 - EPILEPSY, UNSP, NOT INTRACTABLE, WITHOUT STATUS EPILEPTICUS
[2017-12-05] MEDS ORDERED: PIPERACILLIN/TAZOBACTAM 3.375 GM VIAL IVPB ONE ×3 (02:00→17:16)
[2017-12-05] MEDS ORDERED: DEXTROSE 5%-WATER - 50 ML IVPB ONE ×3 (02:00→17:16)
[2017-12-05] MEDS: PIPERACILLIN/TAZOB 3.375 GM 3.375 GM in DEXTROSE 5%-WATER - 50 ML IVPB SCH ×3 (02:06→17:18)
[2017-12-05] MEDS: ALBUTEROL SO4 2.5/IPRATROPIUM 0.5 INH SOL 3 ML VIAL.NEB. NEB SCH ×4 (05:42→17:18)
[2017-12-05] MEDS: BACLOFEN 10 MG TABLET (FP) GT SCH ×3 (06:05→21:52)
[2017-12-05] MEDS: LACTULOSE 20 GM/30 ML UDC (FOR ORAL USE ONLY) GT SCH ×3 (06:05→21:51)
--- NOTE | 2017-12-05 08:50 | EKG ---
Test Reason : Blood Pressure : / mmHG Vent. Rate : 131 BPM Atrial Rate : 131 BPM P-R Int : 000 ms QRS Dur : 082 ms QT Int : 398 ms P-R-T Axes : 000 073 016 degrees QTc Int : 587 ms SINUS TACHYCARDIA WITH SHORT FL SEPTAL INFARCT , AGE UNDETERMINED LATERAL INFARCT , AGE UNDETERMINED CANNOT RULE OUT INFERIOR INFARCT , AGE UNDETERMINED ABNORMAL ECG WHEN COMPARED WITH ECG OF 10-FEB-2017 15:08, [place] INTERVAL HAS DECREASED LATERAL INFARCT IS NOW PRESENT ST NOW DEPRESSED IN ANTEROLATERAL LEADS T WAVE INVERSION NOW EVIDENT IN ANTEROLATERAL LEADS Confirmed by SUNSHINE GALVEZ MD ([id number]) on 12/05/2017 8:50:22 AM Referred By: Confirmed By:SUNSHINE GALVEZ MD
[2017-12-05] MEDS ORDERED: PT OWN MED DRAWER 7, Y5N ONE (09:32)
[2017-12-05] MEDS: levETIRAcetam 500 MG/5 ML ORAL SOLUTION BULK GT SCH ×2 (09:47→21:52)
[2017-12-05] MEDS: HEPARIN NA (PORCINE) 5,000 UNITS/ML 1ML VIAL SQ SCH ×2 (09:47→21:51)
[2017-12-05] MEDS: OXcarbazepine 300 MG/5 ML 250 ML BULK BOTTLE GT SCH (09:48)
[2017-12-05] MEDS: CHOLECALCIFEROL (VITAMIN D3) 1,000 UNIT TABLET (FP) GT SCH (09:48)
[2017-12-05] MEDS: SENNOSIDES 8.6MG TABLET (FP) PO SCH ×2 (09:48→21:59)
[2017-12-05] MEDS: TOPIRAMATE 200 MG TABLET (FP) GT SCH ×2 (09:48→21:52)
[2017-12-05] MEDS: TOPIRAMATE 25 MG TABLET (FP) PO SCH (09:48)
--- NOTE | 2017-12-05 11:34 | PN ---
Progress Note, Physician History of Present Illness: stable doing well will change to nasal canula from face mask - Current Medication List Current Medications: Active Medications Acetaminophen (Tylenol Oral Solution -) 650 mg PO Q6H PRN PRN Reason: PAIN Albuterol/Ipratropium (Duoneb -) 1 amp NEB Q4HWA [facility] Last Admin: 12/05/17 09:41 Dose: 1 amp Baclofen (Lioresal -) 5 mg GT TID [facility] Last Admin: 12/05/17 06:05 Dose: 5 mg Cholecalciferol (Vitamin D3 -) 2,000 unit GT DAILY [facility] Last Admin: 12/05/17 09:48 Dose: 2,000 unit Diazepam (Diastat Rectal Gel -) 10 mg RC DAILY PRN PRN Reason: seizure Last Admin: 12/02/17 16:32 Dose: 10 mg Heparin Sodium (Porcine) (Heparin -) 5,000 unit SQ BID [facility] Last Admin: 12/05/17 09:47 Dose: 5,000 unit Piperacillin Sod/Tazobactam (Sod 3.375 gm/ Dextrose) 50 mls @ 100 mls/hr IVPB Q8H-IV [facility]; Protocol Last Admin: 12/05/17 09:49 Dose: 100 mls/hr Lactulose (Cephulac (Oral Use)) 15 gm GT TID [facility] Last Admin: 12/05/17 06:05 Dose: 15 gm Levetiracetam (Levetiracetam Oral Suspension) 1,500 mg GT BID [facility] Last Admin: 12/05/17 09:47 Dose: 1,500 mg Nystatin (Mycostatin Ointment -) 1 applic TP DAILY PRN PRN Reason: FOR ITCHING Oxcarbazepine (Trileptal) 210 mg GT DAILY [facility] Last Admin: 12/05/17 09:48 Dose: 210 mg Senna (Senna -) 1 tab PO BID [facility] Last Admin: 12/05/17 09:48 Dose: 1 tab Topiramate (Topamax -) 200 mg GT BID [facility] Last Admin: 12/05/17 09:48 Dose: 200 mg Topiramate (Topamax -) 25 mg PO DAILY [facility] Last Admin: 12/05/17 09:48 Dose: 25 mg - Objective Vital Signs: Vital Signs Temperature 97.9 F 12/05/17 08:00 Pulse Rate 63 12/05/17 08:00 Respiratory Rate 20 12/05/17 08:00 Blood Pressure 95/63 12/05/17 08:00 O2 Sat by Pulse Oximetry (%) 98 12/05/17 08:00 Constitutional: Yes: No Distress, Calm Cardiovascular: Yes: Regular Rate and Rhythm Respiratory: Yes: Regular, Poor Air Entry Gastrointestinal: Yes: Normal Bowel Sounds, Soft Musculoskeletal: Yes: WNL Extremities: Yes: WNL Neurological: Yes: Alert, Other Psychiatric: Yes: Alert Labs: CBC, BMP 12/03/17 09:10 12/03/17 09:10 Assessment/Plan Assessment/Plan Problem List - Problems (1) Pneumonia Code(s): J18.9 - PNEUMONIA, UNSPECIFIED ORGANISM Qualifiers: Pneumonia type: due to unspecified organism Laterality: unspecified laterality Lung location: unspecified part of lung Qualified Code(s): J18.9 - Pneumonia, unspecified organism (2) Acute respiratory failure with hypoxia Code(s): J96.01 - ACUTE RESPIRATORY FAILURE WITH HYPOXIA (3) Cerebral palsy Code(s): G80.9 - CEREBRAL PALSY, UNSPECIFIED (4) Functional quadriplegia Code(s): R53.2 - FUNCTIONAL QUADRIPLEGIA (5) Mental retardation Code(s): F79 - UNSPECIFIED INTELLECTUAL DISABILITIES (6) Seizure disorder Code(s): G40.909 - EPILEPSY, UNSP, NOT INTRACTABLE, WITHOUT STATUS EPILEPTICUS plan will see how patient does tomorrow then will deescalate abx also will switch her to room air tomorrow rest as per the team nutrition
--- NOTE | 2017-12-05 16:34 | EKG ---
Test Reason : Blood Pressure : / mmHG Vent. Rate : 072 BPM Atrial Rate : 072 BPM P-R Int : 158 ms QRS Dur : 082 ms QT Int : 376 ms P-R-T Axes : 012 053 039 degrees QTc Int : 411 ms NORMAL SINUS RHYTHM WITH SINUS ARRHYTHMIA NORMAL ECG WHEN COMPARED WITH ECG OF 30-NOV-2017 14:18, [place] INTERVAL HAS INCREASED VENT. RATE HAS DECREASED BY [address] NO LONGER DEPRESSED IN ANTEROLATERAL LEADS NONSPECIFIC T WAVE ABNORMALITY NO LONGER EVIDENT IN INFERIOR LEADS T WAVE INVERSION NO LONGER EVIDENT IN ANTEROLATERAL LEADS Confirmed by SUNSHINE GALVEZ MD ([id number]) on 12/05/2017 4:34:37 PM Referred By: Confirmed By:SUNSHINE GALVEZ MD
--- NOTE | 2017-12-05 17:53 | PN ---
Progress Note, Physician History of Present Illness: comfortable - Current Medication List Current Medications: Active Medications Acetaminophen (Tylenol Oral Solution -) 650 mg PO Q6H PRN PRN Reason: PAIN Albuterol/Ipratropium (Duoneb -) 1 amp NEB Q4HWA [facility] Last Admin: 12/05/17 17:18 Dose: 1 amp Baclofen (Lioresal -) 5 mg GT TID [facility] Last Admin: 12/05/17 14:20 Dose: 5 mg Cholecalciferol (Vitamin D3 -) 2,000 unit GT DAILY [facility] Last Admin: 12/05/17 09:48 Dose: 2,000 unit Heparin Sodium (Porcine) (Heparin -) 5,000 unit SQ BID [facility] Last Admin: 12/05/17 09:47 Dose: 5,000 unit Piperacillin Sod/Tazobactam (Sod 3.375 gm/ Dextrose) 50 mls @ 100 mls/hr IVPB Q8H-IV [facility]; Protocol Last Admin: 12/05/17 17:18 Dose: 100 mls/hr Lactulose (Cephulac (Oral Use)) 15 gm GT TID [facility] Last Admin: 12/05/17 14:19 Dose: 15 gm Levetiracetam (Levetiracetam Oral Suspension) 1,500 mg GT BID [facility] Last Admin: 12/05/17 09:47 Dose: 1,500 mg Nystatin (Mycostatin Ointment -) 1 applic TP DAILY PRN PRN Reason: FOR ITCHING Oxcarbazepine (Trileptal) 210 mg GT DAILY [facility] Last Admin: 12/05/17 09:48 Dose: 210 mg Senna (Senna -) 1 tab PO BID [facility] Last Admin: 12/05/17 09:48 Dose: 1 tab Topiramate (Topamax -) 200 mg GT BID [facility] Last Admin: 12/05/17 09:48 Dose: 200 mg Topiramate (Topamax -) 25 mg PO DAILY [facility] Last Admin: 12/05/17 09:48 Dose: 25 mg - Objective Vital Signs: Vital Signs Temperature 97.9 F 12/05/17 08:00 Pulse Rate 63 12/05/17 14:00 Respiratory Rate 18 12/05/17 14:00 Blood Pressure 121/57 12/05/17 14:00 O2 Sat by Pulse Oximetry (%) 98 12/05/17 08:00 Constitutional: Yes: No Distress HENT: Yes: Atraumatic Neck: Yes: Supple Cardiovascular: Yes: Regular Rate and Rhythm Respiratory: Yes: Rhonchi Gastrointestinal: Yes: Normal Bowel Sounds Extremities: Yes: Deformity Neurological: Yes: Alert Labs: CBC, BMP 12/03/17 09:10 12/03/17 09:10 Problem List - Problems (1) Pneumonia Assessment/Plan: iv abx prn oxygen Code(s): J18.9 - PNEUMONIA, UNSPECIFIED ORGANISM Qualifiers: Pneumonia type: aspiration pneumonia Aspiration pneumonia type: unspecified Laterality: unspecified laterality Lung location: unspecified part of lung Qualified Code(s): J69.0 - Pneumonitis due to inhalation of food and vomit (2) Cerebral palsy Code(s): G80.9 - CEREBRAL PALSY, UNSPECIFIED (3) Mental retardation Code(s): F79 - UNSPECIFIED INTELLECTUAL DISABILITIES (4) Seizure disorder Assessment/Plan: on meds stable Code(s): G40.909 - EPILEPSY, UNSP, NOT INTRACTABLE, WITHOUT STATUS EPILEPTICUS
[2017-12-06] MEDS ORDERED: PIPERACILLIN/TAZOBACTAM 3.375 GM VIAL IVPB ONE ×3 (00:49→17:05)
[2017-12-06] MEDS ORDERED: DEXTROSE 5%-WATER - 50 ML IVPB ONE ×3 (00:49→17:05)
[2017-12-06] MEDS: PIPERACILLIN/TAZOB 3.375 GM 3.375 GM in DEXTROSE 5%-WATER - 50 ML IVPB SCH ×3 (01:39→17:07)
[2017-12-06] MEDS: BACLOFEN 10 MG TABLET (FP) GT SCH ×3 (05:35→22:04)
[2017-12-06] MEDS: LACTULOSE 20 GM/30 ML UDC (FOR ORAL USE ONLY) GT SCH ×3 (05:35→22:03)
[2017-12-06] MEDS ORDERED: PT OWN MED DRAWER 7, Y5N ONE ×2 (09:31→22:00)
[2017-12-06] MEDS: CHOLECALCIFEROL (VITAMIN D3) 1,000 UNIT TABLET (FP) GT SCH (09:34)
[2017-12-06] MEDS: HEPARIN NA (PORCINE) 5,000 UNITS/ML 1ML VIAL SQ SCH ×2 (09:34→22:03)
[2017-12-06] MEDS: TOPIRAMATE 25 MG TABLET (FP) PO SCH (09:35)
[2017-12-06] MEDS: SENNOSIDES 8.6MG TABLET (FP) PO SCH ×2 (09:35→22:04)
[2017-12-06] MEDS: levETIRAcetam 500 MG/5 ML ORAL SOLUTION BULK GT SCH ×2 (09:35→22:03)
[2017-12-06] MEDS: OXcarbazepine 300 MG/5 ML 250 ML BULK BOTTLE GT SCH (09:36)
[2017-12-06] MEDS: TOPIRAMATE 200 MG TABLET (FP) GT SCH ×2 (09:36→22:05)
--- NOTE | 2017-12-06 14:34 | PN ---
Progress Note, Physician History of Present Illness: patient improving still on face mask - Current Medication List Current Medications: Active Medications Acetaminophen (Tylenol Oral Solution -) 650 mg PO Q6H PRN PRN Reason: PAIN Baclofen (Lioresal -) 5 mg GT TID [facility] Last Admin: 12/06/17 14:17 Dose: 5 mg Cholecalciferol (Vitamin D3 -) 2,000 unit GT DAILY [facility] Last Admin: 12/06/17 09:34 Dose: 2,000 unit Heparin Sodium (Porcine) (Heparin -) 5,000 unit SQ BID [facility] Last Admin: 12/06/17 09:34 Dose: 5,000 unit Piperacillin Sod/Tazobactam (Sod 3.375 gm/ Dextrose) 50 mls @ 100 mls/hr IVPB Q8H-IV [facility]; Protocol Last Admin: 12/06/17 09:37 Dose: 100 mls/hr Lactulose (Cephulac (Oral Use)) 15 gm GT TID [facility] Last Admin: 12/06/17 14:17 Dose: 15 gm Levetiracetam (Levetiracetam Oral Suspension) 1,500 mg GT BID [facility] Last Admin: 12/06/17 09:35 Dose: 1,500 mg Nystatin (Mycostatin Ointment -) 1 applic TP DAILY PRN PRN Reason: FOR ITCHING Oxcarbazepine (Trileptal) 210 mg GT DAILY [facility] Last Admin: 12/06/17 09:36 Dose: 210 mg Senna (Senna -) 1 tab PO BID [facility] Last Admin: 12/06/17 09:35 Dose: 1 tab Topiramate (Topamax -) 200 mg GT BID [facility] Last Admin: 12/06/17 09:36 Dose: 200 mg Topiramate (Topamax -) 25 mg PO DAILY [facility] Last Admin: 12/06/17 09:35 Dose: 25 mg - Objective Vital Signs: Vital Signs Temperature 97.5 F L 12/06/17 14:00 Pulse Rate 66 12/06/17 14:00 Respiratory Rate 21 12/06/17 14:00 Blood Pressure 111/58 12/06/17 14:00 O2 Sat by Pulse Oximetry (%) 98 12/06/17 08:00 Constitutional: Yes: No Distress, Calm Cardiovascular: Yes: Regular Rate and Rhythm Respiratory: Yes: Regular, Rhonchi Gastrointestinal: Yes: Normal Bowel Sounds, Soft, Other (peg in place) Musculoskeletal: Yes: WNL Extremities: Yes: Other Neurological: Yes: Alert, Oriented Psychiatric: Yes: Alert, Oriented Labs: CBC, BMP 12/03/17 09:10 12/03/17 09:10 Assessment/Plan Assessment/Plan Problem List - Problems (1) Pneumonia Code(s): J18.9 - PNEUMONIA, UNSPECIFIED ORGANISM Qualifiers: Pneumonia type: due to unspecified organism Laterality: unspecified laterality Lung location: unspecified part of lung Qualified Code(s): J18.9 - Pneumonia, unspecified organism (2) Acute respiratory failure with hypoxia Code(s): J96.01 - ACUTE RESPIRATORY FAILURE WITH HYPOXIA (3) Cerebral palsy Code(s): G80.9 - CEREBRAL PALSY, UNSPECIFIED (4) Functional quadriplegia Code(s): R53.2 - FUNCTIONAL QUADRIPLEGIA (5) Mental retardation Code(s): F79 - UNSPECIFIED INTELLECTUAL DISABILITIES (6) Seizure disorder Code(s): G40.909 - EPILEPSY, UNSP, NOT INTRACTABLE, WITHOUT STATUS EPILEPTICUS plan continue zosyn hydration nutrition change to nasal canula
--- NOTE | 2017-12-06 15:46 | PN ---
Progress Note, Physician History of Present Illness: comfortable - Current Medication List Current Medications: Active Medications Acetaminophen (Tylenol Oral Solution -) 650 mg PO Q6H PRN PRN Reason: PAIN Baclofen (Lioresal -) 5 mg GT TID [facility] Last Admin: 12/06/17 14:17 Dose: 5 mg Cholecalciferol (Vitamin D3 -) 2,000 unit GT DAILY [facility] Last Admin: 12/06/17 09:34 Dose: 2,000 unit Heparin Sodium (Porcine) (Heparin -) 5,000 unit SQ BID [facility] Last Admin: 12/06/17 09:34 Dose: 5,000 unit Piperacillin Sod/Tazobactam (Sod 3.375 gm/ Dextrose) 50 mls @ 100 mls/hr IVPB Q8H-IV [facility]; Protocol Last Admin: 12/06/17 09:37 Dose: 100 mls/hr Lactulose (Cephulac (Oral Use)) 15 gm GT TID [facility] Last Admin: 12/06/17 14:17 Dose: 15 gm Levetiracetam (Levetiracetam Oral Suspension) 1,500 mg GT BID [facility] Last Admin: 12/06/17 09:35 Dose: 1,500 mg Nystatin (Mycostatin Ointment -) 1 applic TP DAILY PRN PRN Reason: FOR ITCHING Oxcarbazepine (Trileptal) 210 mg GT DAILY [facility] Last Admin: 12/06/17 09:36 Dose: 210 mg Senna (Senna -) 1 tab PO BID [facility] Last Admin: 12/06/17 09:35 Dose: 1 tab Topiramate (Topamax -) 200 mg GT BID [facility] Last Admin: 12/06/17 09:36 Dose: 200 mg Topiramate (Topamax -) 25 mg PO DAILY [facility] Last Admin: 12/06/17 09:35 Dose: 25 mg - Objective Vital Signs: Vital Signs Temperature 97.5 F L 12/06/17 14:00 Pulse Rate 66 12/06/17 14:00 Respiratory Rate 21 12/06/17 14:00 Blood Pressure 111/58 12/06/17 14:00 O2 Sat by Pulse Oximetry (%) 98 12/06/17 08:00 Constitutional: Yes: No Distress HENT: Yes: Atraumatic Neck: Yes: Supple Cardiovascular: Yes: Regular Rate and Rhythm Respiratory: Yes: Rhonchi Gastrointestinal: Yes: Normal Bowel Sounds, Other (peg in place) Extremities: Yes: Deformity Neurological: Yes: Alert Labs: CBC, BMP 12/03/17 09:10 12/03/17 09:10 Problem List - Problems (1) Pneumonia Assessment/Plan: on iv abx chest pt monitor oxygen sats Code(s): J18.9 - PNEUMONIA, UNSPECIFIED ORGANISM Qualifiers: Pneumonia type: aspiration pneumonia Aspiration pneumonia type: unspecified Laterality: unspecified laterality Lung location: unspecified part of lung Qualified Code(s): J69.0 - Pneumonitis due to inhalation of food and vomit (2) Cerebral palsy Code(s): G80.9 - CEREBRAL PALSY, UNSPECIFIED (3) Mental retardation Code(s): F79 - UNSPECIFIED INTELLECTUAL DISABILITIES (4) Seizure disorder Assessment/Plan: on meds stable Code(s): G40.909 - EPILEPSY, UNSP, NOT INTRACTABLE, WITHOUT STATUS EPILEPTICUS Assessment/Plan dr oconnor covering until this week
[2017-12-06] MEDS: ALBUTEROL SO4 0.083% IH SOL 2.5 MG/3 ML VIAL.NEB. NEB PRN (18:47)
[2017-12-07] MEDS ORDERED: DEXTROSE 5%-WATER - 50 ML IVPB ONE ×2 (01:29→09:05)
[2017-12-07] MEDS ORDERED: PIPERACILLIN/TAZOBACTAM 3.375 GM VIAL IVPB ONE ×2 (01:29→09:05)
[2017-12-07] MEDS: PIPERACILLIN/TAZOB 3.375 GM 3.375 GM in DEXTROSE 5%-WATER - 50 ML IVPB SCH ×2 (01:51→09:06)
[2017-12-07] MEDS: ALBUTEROL SO4 0.083% IH SOL 2.5 MG/3 ML VIAL.NEB. NEB PRN ×3 (06:10→16:30)
[2017-12-07] MEDS: BACLOFEN 10 MG TABLET (FP) GT SCH ×3 (06:11→22:53)
[2017-12-07] MEDS: LACTULOSE 20 GM/30 ML UDC (FOR ORAL USE ONLY) GT SCH ×3 (06:11→22:52)
[2017-12-07] MEDS ORDERED: PT OWN MED DRAWER 7, Y5N ONE ×2 (08:56→09:17)
[2017-12-07] MEDS: HEPARIN NA (PORCINE) 5,000 UNITS/ML 1ML VIAL SQ SCH ×2 (09:06→22:53)
[2017-12-07] MEDS: TOPIRAMATE 25 MG TABLET (FP) PO SCH (09:07)
[2017-12-07] MEDS: OXcarbazepine 300 MG/5 ML 250 ML BULK BOTTLE GT SCH (09:07)
[2017-12-07] MEDS: levETIRAcetam 500 MG/5 ML ORAL SOLUTION BULK GT SCH ×2 (09:07→22:53)
[2017-12-07] MEDS: SENNOSIDES 8.6MG TABLET (FP) PO SCH ×2 (09:07→22:53)
[2017-12-07] MEDS: CHOLECALCIFEROL (VITAMIN D3) 1,000 UNIT TABLET (FP) GT SCH (09:07)
[2017-12-07] MEDS: TOPIRAMATE 200 MG TABLET (FP) GT SCH ×2 (09:08→22:53)
--- NOTE | 2017-12-07 15:30 | PN ---
Progress Note, Physician History of Present Illness: doing much better on nasal canula sating well good air entry calm - Current Medication List Current Medications: Active Medications Acetaminophen (Tylenol Oral Solution -) 650 mg PO Q6H PRN PRN Reason: PAIN Albuterol Sulfate (Ventolin 0.083% Nebulizer Soln -) 1 amp NEB Q4HWA PRN PRN Reason: SHORT OF BREATH/WHEEZING Last Admin: 12/07/17 09:57 Dose: 1 amp Baclofen (Lioresal -) 5 mg GT TID [facility] Last Admin: 12/07/17 13:53 Dose: 5 mg Cholecalciferol (Vitamin D3 -) 2,000 unit GT DAILY [facility] Last Admin: 12/07/17 09:07 Dose: 2,000 unit Heparin Sodium (Porcine) (Heparin -) 5,000 unit SQ BID [facility] Last Admin: 12/07/17 09:06 Dose: 5,000 unit Lactulose (Cephulac (Oral Use)) 15 gm GT TID [facility] Last Admin: 12/07/17 13:54 Dose: 15 gm Levetiracetam (Levetiracetam Oral Suspension) 1,500 mg GT BID [facility] Last Admin: 12/07/17 09:07 Dose: 1,500 mg Nystatin (Mycostatin Ointment -) 1 applic TP DAILY PRN PRN Reason: FOR ITCHING Oxcarbazepine (Trileptal) 210 mg GT DAILY [facility] Last Admin: 12/07/17 09:07 Dose: 210 mg Senna (Senna -) 1 tab PO BID [facility] Last Admin: 12/07/17 09:07 Dose: 1 tab Topiramate (Topamax -) 200 mg GT BID [facility] Last Admin: 12/07/17 09:08 Dose: 200 mg Topiramate (Topamax -) 25 mg PO DAILY [facility] Last Admin: 12/07/17 09:07 Dose: 25 mg - Objective Vital Signs: Vital Signs Temperature 97.4 F L 12/07/17 13:39 Pulse Rate 68 12/07/17 13:39 Respiratory Rate 18 12/07/17 13:39 Blood Pressure 127/87 12/07/17 13:39 O2 Sat by Pulse Oximetry (%) 97 12/07/17 09:00 Constitutional: Yes: No Distress, Calm, Other Cardiovascular: Yes: Regular Rate and Rhythm Respiratory: Yes: Regular, On Nasal O2, Other Gastrointestinal: Yes: Normal Bowel Sounds, Soft, Other (peg in place) Musculoskeletal: Yes: WNL Extremities: Yes: Other Neurological: Yes: Alert, Other Labs: CBC, BMP 12/03/17 09:10 12/03/17 09:10 Assessment/Plan Assessment/Plan Problem List - Problems (1) Pneumonia Code(s): J18.9 - PNEUMONIA, UNSPECIFIED ORGANISM Qualifiers: Pneumonia type: due to unspecified organism Laterality: unspecified laterality Lung location: unspecified part of lung Qualified Code(s): J18.9 - Pneumonia, unspecified organism (2) Acute respiratory failure with hypoxia Code(s): J96.01 - ACUTE RESPIRATORY FAILURE WITH HYPOXIA (3) Cerebral palsy Code(s): G80.9 - CEREBRAL PALSY, UNSPECIFIED (4) Functional quadriplegia Code(s): R53.2 - FUNCTIONAL QUADRIPLEGIA (5) Mental retardation Code(s): F79 - UNSPECIFIED INTELLECTUAL DISABILITIES (6) Seizure disorder Code(s): G40.909 - EPILEPSY, UNSP, NOT INTRACTABLE, WITHOUT STATUS EPILEPTICUS plan will stop zosyn stop oxygen and see how much patients sats on room air rest continue current mgmt patient stable
--- NOTE | 2017-12-07 22:50 | PN ---
Progress Note, Physician - Current Medication List Current Medications: Active Medications Acetaminophen (Tylenol Oral Solution -) 650 mg PO Q6H PRN PRN Reason: PAIN Albuterol Sulfate (Ventolin 0.083% Nebulizer Soln -) 1 amp NEB Q4HWA PRN PRN Reason: SHORT OF BREATH/WHEEZING Last Admin: 12/07/17 16:30 Dose: 1 amp Baclofen (Lioresal -) 5 mg GT TID [facility] Last Admin: 12/07/17 13:53 Dose: 5 mg Cholecalciferol (Vitamin D3 -) 2,000 unit GT DAILY [facility] Last Admin: 12/07/17 09:07 Dose: 2,000 unit Heparin Sodium (Porcine) (Heparin -) 5,000 unit SQ BID [facility] Lactulose (Cephulac (Oral Use)) 15 gm GT TID [facility] Last Admin: 12/07/17 13:54 Dose: 15 gm Levetiracetam (Levetiracetam Oral Suspension) 1,500 mg GT BID [facility] Last Admin: 12/07/17 09:07 Dose: 1,500 mg Nystatin (Mycostatin Ointment -) 1 applic TP DAILY PRN PRN Reason: FOR ITCHING Oxcarbazepine (Trileptal) 210 mg GT DAILY [facility] Last Admin: 12/07/17 09:07 Dose: 210 mg Senna (Senna -) 1 tab PO BID [facility] Last Admin: 12/07/17 09:07 Dose: 1 tab Topiramate (Topamax -) 200 mg GT BID [facility] Last Admin: 12/07/17 09:08 Dose: 200 mg Topiramate (Topamax -) 25 mg PO DAILY [facility] Last Admin: 12/07/17 09:07 Dose: 25 mg - Objective Vital Signs: Vital Signs Temperature 97 F L 12/07/17 18:00 Pulse Rate 74 12/07/17 18:00 Respiratory Rate 18 12/07/17 18:00 Blood Pressure 88/56 12/07/17 18:00 O2 Sat by Pulse Oximetry (%) 97 12/07/17 09:00 Labs: CBC, BMP 12/03/17 09:10 12/03/17 09:10
[2017-12-08] MEDS ORDERED: PT OWN MED DRAWER 7, Y5N ONE (10:23)
[2017-12-08] MEDS: SENNOSIDES 8.6MG TABLET (FP) PO SCH ×2 (10:30→22:53)
[2017-12-08] MEDS: CHOLECALCIFEROL (VITAMIN D3) 1,000 UNIT TABLET (FP) GT SCH (10:30)
[2017-12-08] MEDS: TOPIRAMATE 200 MG TABLET (FP) GT SCH ×2 (10:30→22:56)
[2017-12-08] MEDS: TOPIRAMATE 25 MG TABLET (FP) PO SCH (10:30)
[2017-12-08] MEDS: HEPARIN NA (PORCINE) 5,000 UNITS/ML 1ML VIAL SQ SCH ×2 (10:30→22:53)
[2017-12-08] MEDS: OXcarbazepine 300 MG/5 ML 250 ML BULK BOTTLE GT SCH (10:31)
[2017-12-08] MEDS: levETIRAcetam 500 MG/5 ML ORAL SOLUTION BULK GT SCH ×2 (10:36→22:56)
--- NOTE | 2017-12-08 11:11 | PN ---
Progress Note, Physician History of Present Illness: stable no new issues breathing well on room air - Current Medication List Current Medications: Active Medications Acetaminophen (Tylenol Oral Solution -) 650 mg PO Q6H PRN PRN Reason: PAIN Albuterol Sulfate (Ventolin 0.083% Nebulizer Soln -) 1 amp NEB Q4HWA PRN PRN Reason: SHORT OF BREATH/WHEEZING Last Admin: 12/07/17 16:30 Dose: 1 amp Baclofen (Lioresal -) 5 mg GT TID [facility] Last Admin: 12/07/17 22:53 Dose: 5 mg Cholecalciferol (Vitamin D3 -) 2,000 unit GT DAILY [facility] Last Admin: 12/08/17 10:30 Dose: 2,000 unit Heparin Sodium (Porcine) (Heparin -) 5,000 unit SQ BID [facility] Last Admin: 12/08/17 10:30 Dose: 5,000 unit Lactulose (Cephulac (Oral Use)) 15 gm GT TID [facility] Last Admin: 12/07/17 22:52 Dose: 15 gm Levetiracetam (Levetiracetam Oral Suspension) 1,500 mg GT BID [facility] Last Admin: 12/08/17 10:36 Dose: 1,500 mg Nystatin (Mycostatin Ointment -) 1 applic TP DAILY PRN PRN Reason: FOR ITCHING Oxcarbazepine (Trileptal) 210 mg GT DAILY [facility] Last Admin: 12/08/17 10:31 Dose: 210 mg Senna (Senna -) 1 tab PO BID [facility] Last Admin: 12/08/17 10:30 Dose: 1 tab Topiramate (Topamax -) 200 mg GT BID [facility] Last Admin: 12/08/17 10:30 Dose: 200 mg Topiramate (Topamax -) 25 mg PO DAILY [facility] Last Admin: 12/08/17 10:30 Dose: 25 mg - Objective Vital Signs: Vital Signs Temperature 97 F L 12/07/17 18:00 Pulse Rate 74 12/07/17 18:00 Respiratory Rate 18 12/07/17 21:00 Blood Pressure 88/56 12/07/17 18:00 O2 Sat by Pulse Oximetry (%) 95 12/07/17 21:00 Constitutional: Yes: No Distress, Calm Cardiovascular: Yes: Regular Rate and Rhythm Respiratory: Yes: Regular, Other Gastrointestinal: Yes: Normal Bowel Sounds, Soft, Other (peg tube in place) Musculoskeletal: Yes: WNL Extremities: Yes: Other Neurological: Yes: Alert Psychiatric: Yes: Other Labs: CBC, BMP 12/03/17 09:10 12/03/17 09:10 Assessment/Plan Assessment/Plan Problem List - Problems (1) Pneumonia Code(s): J18.9 - PNEUMONIA, UNSPECIFIED ORGANISM Qualifiers: Pneumonia type: due to unspecified organism Laterality: unspecified laterality Lung location: unspecified part of lung Qualified Code(s): J18.9 - Pneumonia, unspecified organism (2) Acute respiratory failure with hypoxia Code(s): J96.01 - ACUTE RESPIRATORY FAILURE WITH HYPOXIA (3) Cerebral palsy Code(s): G80.9 - CEREBRAL PALSY, UNSPECIFIED (4) Functional quadriplegia Code(s): R53.2 - FUNCTIONAL QUADRIPLEGIA (5) Mental retardation Code(s): F79 - UNSPECIFIED INTELLECTUAL DISABILITIES (6) Seizure disorder Code(s): G40.909 - EPILEPSY, UNSP, NOT INTRACTABLE, WITHOUT STATUS EPILEPTICUS plan stable off of abx continue nutrition rest as per the team
--- NOTE | 2017-12-08 22:26 | PN ---
Progress Note, Physician - Current Medication List Current Medications: Active Medications Acetaminophen (Tylenol Oral Solution -) 650 mg PO Q6H PRN PRN Reason: PAIN Albuterol Sulfate (Ventolin 0.083% Nebulizer Soln -) 1 amp NEB Q4HWA PRN PRN Reason: SHORT OF BREATH/WHEEZING Last Admin: 12/07/17 16:30 Dose: 1 amp Baclofen (Lioresal -) 5 mg GT TID [facility] Last Admin: 12/07/17 22:53 Dose: 5 mg Cholecalciferol (Vitamin D3 -) 2,000 unit GT DAILY [facility] Last Admin: 12/08/17 10:30 Dose: 2,000 unit Heparin Sodium (Porcine) (Heparin -) 5,000 unit SQ BID [facility] Last Admin: 12/08/17 10:30 Dose: 5,000 unit Lactulose (Cephulac (Oral Use)) 15 gm GT TID [facility] Last Admin: 12/07/17 22:52 Dose: 15 gm Levetiracetam (Levetiracetam Oral Suspension) 1,500 mg GT BID [facility] Last Admin: 12/08/17 10:36 Dose: 1,500 mg Nystatin (Mycostatin Ointment -) 1 applic TP DAILY PRN PRN Reason: FOR ITCHING Oxcarbazepine (Trileptal) 210 mg GT DAILY [facility] Last Admin: 12/08/17 10:31 Dose: 210 mg Senna (Senna -) 1 tab PO BID [facility] Last Admin: 12/08/17 10:30 Dose: 1 tab Topiramate (Topamax -) 200 mg GT BID [facility] Last Admin: 12/08/17 10:30 Dose: 200 mg Topiramate (Topamax -) 25 mg PO DAILY [facility] Last Admin: 12/08/17 10:30 Dose: 25 mg - Objective Vital Signs: Vital Signs Temperature 98.6 F 12/08/17 18:00 Pulse Rate 72 12/08/17 18:00 Respiratory Rate 19 12/08/17 18:00 Blood Pressure 105/72 12/08/17 18:00 O2 Sat by Pulse Oximetry (%) 94 L 12/08/17 10:00 Labs: CBC, BMP 12/03/17 09:10 12/03/17 09:10
[2017-12-08] MEDS: LACTULOSE 20 GM/30 ML UDC (FOR ORAL USE ONLY) GT SCH ×2 (22:50→22:52)
[2017-12-08] MEDS: BACLOFEN 10 MG TABLET (FP) GT SCH ×2 (22:50→22:52)
[2017-12-09] MEDS: LACTULOSE 20 GM/30 ML UDC (FOR ORAL USE ONLY) GT SCH ×3 (06:38→22:24)
[2017-12-09] MEDS: BACLOFEN 10 MG TABLET (FP) GT SCH ×3 (06:38→22:22)
[2017-12-09] MEDS ORDERED: PT OWN MED DRAWER 7, Y5N ONE ×2 (09:35→22:17)
[2017-12-09] MEDS: HEPARIN NA (PORCINE) 5,000 UNITS/ML 1ML VIAL SQ SCH ×2 (09:36→22:24)
[2017-12-09] MEDS: OXcarbazepine 300 MG/5 ML 250 ML BULK BOTTLE GT SCH (09:37)
[2017-12-09] MEDS: SENNOSIDES 8.6MG TABLET (FP) PO SCH ×2 (09:38→22:23)
[2017-12-09] MEDS: levETIRAcetam 500 MG/5 ML ORAL SOLUTION BULK GT SCH ×2 (09:38→22:00)
[2017-12-09] MEDS: TOPIRAMATE 200 MG TABLET (FP) GT SCH ×2 (09:39→22:23)
[2017-12-09] MEDS: TOPIRAMATE 25 MG TABLET (FP) PO SCH (09:39)
[2017-12-09] MEDS: CHOLECALCIFEROL (VITAMIN D3) 1,000 UNIT TABLET (FP) GT SCH (09:39)
--- NOTE | 2017-12-09 13:33 | PN ---
Progress Note, Physician History of Present Illness: patient doing well but still sats going on the lower side - Current Medication List Current Medications: Active Medications Acetaminophen (Tylenol Oral Solution -) 650 mg PO Q6H PRN PRN Reason: PAIN Albuterol Sulfate (Ventolin 0.083% Nebulizer Soln -) 1 amp NEB Q4HWA PRN PRN Reason: SHORT OF BREATH/WHEEZING Last Admin: 12/07/17 16:30 Dose: 1 amp Baclofen (Lioresal -) 5 mg GT TID [facility] Last Admin: 12/09/17 13:02 Dose: 5 mg Cholecalciferol (Vitamin D3 -) 2,000 unit GT DAILY [facility] Last Admin: 12/09/17 09:39 Dose: 2,000 unit Heparin Sodium (Porcine) (Heparin -) 5,000 unit SQ BID [facility] Last Admin: 12/09/17 09:36 Dose: 5,000 unit Lactulose (Cephulac (Oral Use)) 15 gm GT TID [facility] Last Admin: 12/09/17 06:38 Dose: 15 gm Levetiracetam (Levetiracetam Oral Suspension) 1,500 mg GT BID [facility] Last Admin: 12/09/17 09:38 Dose: 1,500 mg Nystatin (Mycostatin Ointment -) 1 applic TP DAILY PRN PRN Reason: FOR ITCHING Oxcarbazepine (Trileptal) 210 mg GT DAILY [facility] Last Admin: 12/09/17 09:37 Dose: 210 mg Senna (Senna -) 1 tab PO BID [facility] Last Admin: 12/09/17 09:38 Dose: 1 tab Topiramate (Topamax -) 200 mg GT BID [facility] Last Admin: 12/09/17 09:39 Dose: 200 mg Topiramate (Topamax -) 25 mg PO DAILY [facility] Last Admin: 12/09/17 09:39 Dose: 25 mg - Objective Vital Signs: Vital Signs Temperature 98.0 F 12/09/17 08:06 Pulse Rate 70 12/09/17 08:06 Respiratory Rate 20 12/09/17 08:06 Blood Pressure 110/70 12/09/17 08:06 O2 Sat by Pulse Oximetry (%) 94 L 12/09/17 09:00 Constitutional: Yes: No Distress, Calm Cardiovascular: Yes: Regular Rate and Rhythm Respiratory: Yes: Poor Air Entry Gastrointestinal: Yes: Normal Bowel Sounds, Soft, Other (peg in place) Musculoskeletal: Yes: WNL Extremities: Yes: Other Neurological: Yes: Alert, Oriented Psychiatric: Yes: Alert, Oriented Labs: CBC, BMP 12/03/17 09:10 12/03/17 09:10 Assessment/Plan Assessment/Plan Problem List - Problems (1) Pneumonia Code(s): J18.9 - PNEUMONIA, UNSPECIFIED ORGANISM Qualifiers: Pneumonia type: due to unspecified organism Laterality: unspecified laterality Lung location: unspecified part of lung Qualified Code(s): J18.9 - Pneumonia, unspecified organism (2) Acute respiratory failure with hypoxia Code(s): J96.01 - ACUTE RESPIRATORY FAILURE WITH HYPOXIA (3) Cerebral palsy Code(s): G80.9 - CEREBRAL PALSY, UNSPECIFIED (4) Functional quadriplegia Code(s): R53.2 - FUNCTIONAL QUADRIPLEGIA (5) Mental retardation Code(s): F79 - UNSPECIFIED INTELLECTUAL DISABILITIES (6) Seizure disorder Code(s): G40.909 - EPILEPSY, UNSP, NOT INTRACTABLE, WITHOUT STATUS EPILEPTICUS plan stable off of abx patient sating on the lower side i suggest we should watch her for at least one day and see how she sats on room air chest pt
--- NOTE | 2017-12-09 13:37 | PN ---
Progress Note, Physician History of Present Illness: comfortable - Current Medication List Current Medications: Active Medications Acetaminophen (Tylenol Oral Solution -) 650 mg PO Q6H PRN PRN Reason: PAIN Albuterol Sulfate (Ventolin 0.083% Nebulizer Soln -) 1 amp NEB Q4HWA PRN PRN Reason: SHORT OF BREATH/WHEEZING Last Admin: 12/07/17 16:30 Dose: 1 amp Baclofen (Lioresal -) 5 mg GT TID [facility] Last Admin: 12/09/17 13:02 Dose: 5 mg Cholecalciferol (Vitamin D3 -) 2,000 unit GT DAILY [facility] Last Admin: 12/09/17 09:39 Dose: 2,000 unit Heparin Sodium (Porcine) (Heparin -) 5,000 unit SQ BID [facility] Last Admin: 12/09/17 09:36 Dose: 5,000 unit Lactulose (Cephulac (Oral Use)) 15 gm GT TID [facility] Last Admin: 12/09/17 06:38 Dose: 15 gm Levetiracetam (Levetiracetam Oral Suspension) 1,500 mg GT BID [facility] Last Admin: 12/09/17 09:38 Dose: 1,500 mg Nystatin (Mycostatin Ointment -) 1 applic TP DAILY PRN PRN Reason: FOR ITCHING Oxcarbazepine (Trileptal) 210 mg GT DAILY [facility] Last Admin: 12/09/17 09:37 Dose: 210 mg Senna (Senna -) 1 tab PO BID [facility] Last Admin: 12/09/17 09:38 Dose: 1 tab Topiramate (Topamax -) 200 mg GT BID [facility] Last Admin: 12/09/17 09:39 Dose: 200 mg Topiramate (Topamax -) 25 mg PO DAILY [facility] Last Admin: 12/09/17 09:39 Dose: 25 mg - Objective Vital Signs: Vital Signs Temperature 98.0 F 12/09/17 08:06 Pulse Rate 70 12/09/17 08:06 Respiratory Rate 20 12/09/17 08:06 Blood Pressure 110/70 12/09/17 08:06 O2 Sat by Pulse Oximetry (%) 94 L 12/09/17 09:00 HENT: Yes: Atraumatic Cardiovascular: Yes: Regular Rate and Rhythm Respiratory: Yes: Rhonchi, Wheezes Gastrointestinal: Yes: Normal Bowel Sounds, Other (peg in place) Extremities: Yes: Deformity Neurological: Yes: Alert Labs: CBC, BMP 12/03/17 09:10 12/03/17 09:10 Problem List - Problems (1) Pneumonia Assessment/Plan: off of abx chest pt monitor oxygen sats Code(s): J18.9 - PNEUMONIA, UNSPECIFIED ORGANISM Qualifiers: Pneumonia type: aspiration pneumonia Aspiration pneumonia type: unspecified Laterality: unspecified laterality Lung location: unspecified part of lung Qualified Code(s): J69.0 - Pneumonitis due to inhalation of food and vomit (2) Cerebral palsy Code(s): G80.9 - CEREBRAL PALSY, UNSPECIFIED (3) Mental retardation Code(s): F79 - UNSPECIFIED INTELLECTUAL DISABILITIES (4) Seizure disorder Assessment/Plan: on meds stable Code(s): G40.909 - EPILEPSY, UNSP, NOT INTRACTABLE, WITHOUT STATUS EPILEPTICUS
[2017-12-09 16:11] LABS: BASO % 0.5 % (0-2.0); HEMATOCRIT 31.9 % (32.4-45.2); HEMOGLOBIN 10.8 GM/dL (10.7-15.3); LYMPH % 47.8 % (8-40); MCH 33.7 pg (25.7-33.7); MEAN CELL VOLUME 99.1 fl (80-96); MEAN PLT VOLUME 8.2 fl (7.5-11.1); MONO % 7.1 % (3.8-10.2); NEUT % 43.6 % (42.8-82.8); PLATELET COUNT 388 K/MM3 (134-434); RBC 3.22 M/mm3 (3.60-5.2); RDW 14.7 % (11.6-15.6); WHITE BLOOD COUNT 5.8 K/mm3 (4.0-10.0)
[2017-12-09 16:44] LABS: ANION GAP 9 (8-16); BLOOD UREA NITROGEN 19 mg/dL (7-18); CALCIUM 8.8 mg/dL (8.5-10.1); CHLORIDE 108 mmol/L (98-107); CO2 21 mmol/L (21-32); GLUCOSE,RANDOM 111 mg/dL (74-106); SODIUM 138 mmol/L (136-145)
[2017-12-09 16:49] LABS: ALK PHOS 262 U/L (45-117); BILIRUBIN,TOTAL 0.3 mg/dL (0.2-1.0); CREATININE 0.4 mg/dL (0.55-1.02); SGPT/ALT 61 U/L (12-78); TOT PROT 7.3 g/dl (6.4-8.2)
[2017-12-09 16:50] LABS: POTASSIUM 4.4 mmol/L (3.5-5.1); SGOT/AST 29 U/L (15-37)
[2017-12-09] MEDS: ALBUTEROL SO4 0.083% IH SOL 2.5 MG/3 ML VIAL.NEB. NEB PRN (20:03)
[2017-12-10] MEDS ORDERED: PT OWN MED DRAWER 7, Y5N ONE ×4 (00:38→21:24)
[2017-12-10] MEDS: BACLOFEN 10 MG TABLET (FP) GT SCH ×3 (05:20→21:39)
[2017-12-10] MEDS: LACTULOSE 20 GM/30 ML UDC (FOR ORAL USE ONLY) GT SCH ×3 (05:20→21:40)
--- NOTE | 2017-12-10 09:26 | PN ---
Progress Note, Physician History of Present Illness: patient doing well no issues breathing much better stll 93-94 - Current Medication List Current Medications: Active Medications Acetaminophen (Tylenol Oral Solution -) 650 mg PO Q6H PRN PRN Reason: PAIN Albuterol Sulfate (Ventolin 0.083% Nebulizer Soln -) 1 amp NEB Q4HWA PRN PRN Reason: SHORT OF BREATH/WHEEZING Last Admin: 12/09/17 20:03 Dose: 1 amp Baclofen (Lioresal -) 5 mg GT TID [facility] Last Admin: 12/10/17 05:20 Dose: 5 mg Cholecalciferol (Vitamin D3 -) 2,000 unit GT DAILY [facility] Last Admin: 12/09/17 09:39 Dose: 2,000 unit Heparin Sodium (Porcine) (Heparin -) 5,000 unit SQ BID [facility] Last Admin: 12/09/17 22:24 Dose: 5,000 unit Lactulose (Cephulac (Oral Use)) 15 gm GT TID [facility] Last Admin: 12/10/17 05:20 Dose: 15 gm Levetiracetam (Levetiracetam Oral Suspension) 1,500 mg GT BID [facility] Last Admin: 12/09/17 22:00 Dose: 1,500 mg Nystatin (Mycostatin Ointment -) 1 applic TP DAILY PRN PRN Reason: FOR ITCHING Oxcarbazepine (Trileptal) 210 mg GT DAILY [facility] Last Admin: 12/09/17 09:37 Dose: 210 mg Senna (Senna -) 1 tab PO BID [facility] Last Admin: 12/09/17 22:23 Dose: 1 tab Topiramate (Topamax -) 200 mg GT BID [facility] Last Admin: 12/09/17 22:23 Dose: 200 mg Topiramate (Topamax -) 25 mg PO DAILY [facility] Last Admin: 12/09/17 09:39 Dose: 25 mg - Objective Vital Signs: Vital Signs Temperature 97.8 F 12/10/17 06:00 Pulse Rate 66 12/10/17 06:00 Respiratory Rate 18 12/10/17 06:00 Blood Pressure 100/69 12/10/17 06:00 O2 Sat by Pulse Oximetry (%) 94 L 12/09/17 21:00 Constitutional: Yes: No Distress, Calm Eyes: Yes: Conjunctiva Clear Cardiovascular: Yes: Regular Rate and Rhythm Respiratory: Yes: Regular, Rhonchi Gastrointestinal: Yes: Normal Bowel Sounds, Soft Musculoskeletal: Yes: WNL Extremities: Yes: WNL Neurological: Yes: Alert, Other Psychiatric: Yes: Other Labs: CBC, BMP 12/09/17 15:45 12/09/17 15:45 Assessment/Plan Assessment/Plan Problem List - Problems (1) Pneumonia Code(s): J18.9 - PNEUMONIA, UNSPECIFIED ORGANISM Qualifiers: Pneumonia type: due to unspecified organism Laterality: unspecified laterality Lung location: unspecified part of lung Qualified Code(s): J18.9 - Pneumonia, unspecified organism (2) Acute respiratory failure with hypoxia Code(s): J96.01 - ACUTE RESPIRATORY FAILURE WITH HYPOXIA (3) Cerebral palsy Code(s): G80.9 - CEREBRAL PALSY, UNSPECIFIED (4) Functional quadriplegia Code(s): R53.2 - FUNCTIONAL QUADRIPLEGIA (5) Mental retardation Code(s): F79 - UNSPECIFIED INTELLECTUAL DISABILITIES (6) Seizure disorder Code(s): G40.909 - EPILEPSY, UNSP, NOT INTRACTABLE, WITHOUT STATUS EPILEPTICUS plan stable off of abx continue current mgmt
[2017-12-10] MEDS: HEPARIN NA (PORCINE) 5,000 UNITS/ML 1ML VIAL SQ SCH ×2 (11:03→21:38)
[2017-12-10] MEDS: CHOLECALCIFEROL (VITAMIN D3) 1,000 UNIT TABLET (FP) GT SCH (11:03)
[2017-12-10] MEDS: OXcarbazepine 300 MG/5 ML 250 ML BULK BOTTLE GT SCH (11:03)
[2017-12-10] MEDS: TOPIRAMATE 25 MG TABLET (FP) PO SCH (11:03)
[2017-12-10] MEDS: SENNOSIDES 8.6MG TABLET (FP) PO SCH ×2 (11:03→21:39)
[2017-12-10] MEDS: levETIRAcetam 500 MG/5 ML ORAL SOLUTION BULK GT SCH ×2 (11:07→21:39)
[2017-12-10] MEDS: TOPIRAMATE 200 MG TABLET (FP) GT SCH ×2 (11:08→21:39)
--- NOTE | 2017-12-10 13:04 | PN ---
Progress Note, Physician History of Present Illness: comfortable - Current Medication List Current Medications: Active Medications Acetaminophen (Tylenol Oral Solution -) 650 mg PO Q6H PRN PRN Reason: PAIN Albuterol Sulfate (Ventolin 0.083% Nebulizer Soln -) 1 amp NEB Q4HWA PRN PRN Reason: SHORT OF BREATH/WHEEZING Last Admin: 12/09/17 20:03 Dose: 1 amp Baclofen (Lioresal -) 5 mg GT TID [facility] Last Admin: 12/10/17 05:20 Dose: 5 mg Cholecalciferol (Vitamin D3 -) 2,000 unit GT DAILY [facility] Last Admin: 12/10/17 11:03 Dose: 2,000 unit Heparin Sodium (Porcine) (Heparin -) 5,000 unit SQ BID [facility] Last Admin: 12/10/17 11:03 Dose: 5,000 unit Lactulose (Cephulac (Oral Use)) 15 gm GT TID [facility] Last Admin: 12/10/17 05:20 Dose: 15 gm Levetiracetam (Levetiracetam Oral Suspension) 1,500 mg GT BID [facility] Last Admin: 12/10/17 11:07 Dose: 1,500 mg Nystatin (Mycostatin Ointment -) 1 applic TP DAILY PRN PRN Reason: FOR ITCHING Oxcarbazepine (Trileptal) 210 mg GT DAILY [facility] Last Admin: 12/10/17 11:03 Dose: 210 mg Senna (Senna -) 1 tab PO BID [facility] Last Admin: 12/10/17 11:03 Dose: 1 tab Topiramate (Topamax -) 200 mg GT BID [facility] Last Admin: 12/10/17 11:08 Dose: 200 mg Topiramate (Topamax -) 25 mg PO DAILY [facility] Last Admin: 12/10/17 11:03 Dose: 25 mg - Objective Vital Signs: Vital Signs Temperature 96.4 F L 12/10/17 08:00 Pulse Rate 68 12/10/17 08:00 Respiratory Rate 18 12/10/17 08:00 Blood Pressure 118/76 12/10/17 08:00 O2 Sat by Pulse Oximetry (%) 95 12/10/17 09:00 Constitutional: Yes: Calm HENT: Yes: Atraumatic Cardiovascular: Yes: Regular Rate and Rhythm Respiratory: Yes: Rhonchi, Wheezes Gastrointestinal: Yes: Normal Bowel Sounds, Other (peg in place) Extremities: Yes: Deformity Neurological: Yes: Alert Labs: CBC, BMP 12/09/17 15:45 12/09/17 15:45 Problem List - Problems (1) Pneumonia Assessment/Plan: off of abx chest pt monitor oxygen sats dc planning Code(s): J18.9 - PNEUMONIA, UNSPECIFIED ORGANISM Qualifiers: Pneumonia type: aspiration pneumonia Aspiration pneumonia type: unspecified Laterality: unspecified laterality Lung location: unspecified part of lung Qualified Code(s): J69.0 - Pneumonitis due to inhalation of food and vomit (2) Cerebral palsy Code(s): G80.9 - CEREBRAL PALSY, UNSPECIFIED (3) Mental retardation Code(s): F79 - UNSPECIFIED INTELLECTUAL DISABILITIES (4) Seizure disorder Assessment/Plan: on meds stable Code(s): G40.909 - EPILEPSY, UNSP, NOT INTRACTABLE, WITHOUT STATUS EPILEPTICUS
[2017-12-11] MEDS: LACTULOSE 20 GM/30 ML UDC (FOR ORAL USE ONLY) GT SCH ×4 (06:13→21:17)
[2017-12-11] MEDS: BACLOFEN 10 MG TABLET (FP) GT SCH ×3 (06:13→21:16)
[2017-12-11] MEDS ORDERED: PT OWN MED DRAWER 7, Y5N ONE ×2 (10:41→20:26)
[2017-12-11] MEDS: TOPIRAMATE 25 MG TABLET (FP) PO SCH (10:51)
[2017-12-11] MEDS: TOPIRAMATE 200 MG TABLET (FP) GT SCH ×2 (10:51→21:16)
[2017-12-11] MEDS: SENNOSIDES 8.6MG TABLET (FP) PO SCH ×2 (10:51→21:16)
[2017-12-11] MEDS: levETIRAcetam 500 MG/5 ML ORAL SOLUTION BULK GT SCH ×2 (10:52→21:17)
[2017-12-11] MEDS: HEPARIN NA (PORCINE) 5,000 UNITS/ML 1ML VIAL SQ SCH ×2 (10:52→21:17)
[2017-12-11] MEDS: CHOLECALCIFEROL (VITAMIN D3) 1,000 UNIT TABLET (FP) GT SCH (10:52)
[2017-12-11] MEDS: OXcarbazepine 300 MG/5 ML 250 ML BULK BOTTLE GT SCH (10:53)
--- NOTE | 2017-12-11 11:08 | PN ---
Progress Note, Physician History of Present Illness: stable doing well no issues - Current Medication List Current Medications: Active Medications Acetaminophen (Tylenol Oral Solution -) 650 mg PO Q6H PRN PRN Reason: PAIN Albuterol Sulfate (Ventolin 0.083% Nebulizer Soln -) 1 amp NEB Q4HWA PRN PRN Reason: SHORT OF BREATH/WHEEZING Last Admin: 12/09/17 20:03 Dose: 1 amp Baclofen (Lioresal -) 5 mg GT TID [facility] Last Admin: 12/11/17 06:13 Dose: 5 mg Cholecalciferol (Vitamin D3 -) 2,000 unit GT DAILY [facility] Last Admin: 12/11/17 10:52 Dose: 2,000 unit Heparin Sodium (Porcine) (Heparin -) 5,000 unit SQ BID [facility] Last Admin: 12/11/17 10:52 Dose: 5,000 unit Lactulose (Cephulac (Oral Use)) 15 gm GT TID [facility] 234 [facility] Last Admin: 12/11/17 06:13 Dose: 15 gm Levetiracetam (Levetiracetam Oral Suspension) 1,500 mg GT BID [facility] Last Admin: 12/11/17 10:52 Dose: 1,500 mg Nystatin (Mycostatin Ointment -) 1 applic TP DAILY PRN PRN Reason: FOR ITCHING Oxcarbazepine (Trileptal) 210 mg GT DAILY [facility] Last Admin: 12/11/17 10:53 Dose: 210 mg Senna (Senna -) 1 tab PO BID [facility] Last Admin: 12/11/17 10:51 Dose: 1 tab Topiramate (Topamax -) 200 mg GT BID [facility] Last Admin: 12/11/17 10:51 Dose: 200 mg Topiramate (Topamax -) 25 mg PO DAILY [facility] Last Admin: 12/11/17 10:51 Dose: 25 mg - Objective Vital Signs: Vital Signs Temperature 98.0 F 12/11/17 06:00 Pulse Rate 72 12/11/17 06:00 Respiratory Rate 18 12/11/17 06:00 Blood Pressure 105/74 12/11/17 06:00 O2 Sat by Pulse Oximetry (%) 97 12/10/17 21:00 Constitutional: Yes: No Distress, Calm Cardiovascular: Yes: Regular Rate and Rhythm Respiratory: Yes: Regular, CTA Bilaterally Gastrointestinal: Yes: Normal Bowel Sounds, Soft, Other (peg in place) Musculoskeletal: Yes: WNL Extremities: Yes: Other Neurological: Yes: Alert, Other Psychiatric: Yes: Other Labs: CBC, BMP 12/09/17 15:45 12/09/17 15:45 Assessment/Plan Assessment/Plan Problem List - Problems (1) Pneumonia Code(s): J18.9 - PNEUMONIA, UNSPECIFIED ORGANISM Qualifiers: Pneumonia type: due to unspecified organism Laterality: unspecified laterality Lung location: unspecified part of lung Qualified Code(s): J18.9 - Pneumonia, unspecified organism (2) Acute respiratory failure with hypoxia Code(s): J96.01 - ACUTE RESPIRATORY FAILURE WITH HYPOXIA (3) Cerebral palsy Code(s): G80.9 - CEREBRAL PALSY, UNSPECIFIED (4) Functional quadriplegia Code(s): R53.2 - FUNCTIONAL QUADRIPLEGIA (5) Mental retardation Code(s): F79 - UNSPECIFIED INTELLECTUAL DISABILITIES (6) Seizure disorder Code(s): G40.909 - EPILEPSY, UNSP, NOT INTRACTABLE, WITHOUT STATUS EPILEPTICUS plan stable off of abx continue current mgmt aspiration precautions rest as per the team
[2017-12-11 19:22] VITALS: BP 101/60; PULSE 65; TEMP 97.2
--- NOTE | 2017-12-11 20:10 | PN ---
Progress Note, Physician History of Present Illness: comfortable on room air - Current Medication List Current Medications: Active Medications Acetaminophen (Tylenol Oral Solution -) 650 mg PO Q6H PRN PRN Reason: PAIN Baclofen (Lioresal -) 5 mg GT TID [facility] Last Admin: 12/11/17 14:04 Dose: 5 mg Cholecalciferol (Vitamin D3 -) 2,000 unit GT DAILY [facility] Last Admin: 12/11/17 10:52 Dose: 2,000 unit Heparin Sodium (Porcine) (Heparin -) 5,000 unit SQ BID [facility] Last Admin: 12/11/17 10:52 Dose: 5,000 unit Lactulose (Cephulac (Oral Use)) 15 gm GT TID [facility] Last Admin: 12/11/17 14:04 Dose: 15 gm Levetiracetam (Levetiracetam Oral Suspension) 1,500 mg GT BID [facility] Last Admin: 12/11/17 10:52 Dose: 1,500 mg Nystatin (Mycostatin Ointment -) 1 applic TP DAILY PRN PRN Reason: FOR ITCHING Oxcarbazepine (Trileptal) 210 mg GT DAILY [facility] Last Admin: 12/11/17 10:53 Dose: 210 mg Senna (Senna -) 1 tab PO BID [facility] Last Admin: 12/11/17 10:51 Dose: 1 tab Topiramate (Topamax -) 200 mg GT BID [facility] Last Admin: 12/11/17 10:51 Dose: 200 mg Topiramate (Topamax -) 25 mg PO DAILY [facility] Last Admin: 12/11/17 10:51 Dose: 25 mg - Objective Vital Signs: Vital Signs Temperature 97.2 F L 12/11/17 18:00 Pulse Rate 65 12/11/17 18:00 Respiratory Rate 20 12/11/17 18:00 Blood Pressure 101/60 12/11/17 18:00 O2 Sat by Pulse Oximetry (%) 93 L 12/11/17 09:00 Constitutional: Yes: No Distress HENT: Yes: Atraumatic Neck: Yes: Supple Cardiovascular: Yes: Regular Rate and Rhythm Respiratory: Yes: Rhonchi Extremities: Yes: Deformity Neurological: Yes: Alert Labs: CBC, BMP 12/09/17 15:45 12/09/17 15:45 Problem List - Problems (1) Pneumonia Assessment/Plan: off of abx chest pt monitor oxygen sats dc planning Code(s): J18.9 - PNEUMONIA, UNSPECIFIED ORGANISM Qualifiers: Pneumonia type: aspiration pneumonia Aspiration pneumonia type: unspecified Laterality: unspecified laterality Lung location: unspecified part of lung Qualified Code(s): J69.0 - Pneumonitis due to inhalation of food and vomit (2) Cerebral palsy Code(s): G80.9 - CEREBRAL PALSY, UNSPECIFIED (3) Mental retardation Code(s): F79 - UNSPECIFIED INTELLECTUAL DISABILITIES (4) Seizure disorder Assessment/Plan: on meds stable Code(s): G40.909 - EPILEPSY, UNSP, NOT INTRACTABLE, WITHOUT STATUS EPILEPTICUS Assessment/Plan spoke with Jessy betancur np [phone] pt alexsandra aguirre
--- NOTE | 2017-12-11 20:56 | DS ---
Physical Examination Vital Signs: Vital Signs Temperature 97.2 F L 12/11/17 18:00 Pulse Rate 65 12/11/17 18:00 Respiratory Rate 20 12/11/17 18:00 Blood Pressure 101/60 12/11/17 18:00 O2 Sat by Pulse Oximetry (%) 93 L 12/11/17 09:00 Constitutional: Yes: Calm HENT: Yes: Atraumatic Neck: Yes: Supple Cardiovascular: Yes: Regular Rate and Rhythm Respiratory: Yes: CTA Bilaterally, Rhonchi Gastrointestinal: Yes: Normal Bowel Sounds Extremities: Yes: Deformity Labs: CBC, BMP 12/09/17 15:45 12/09/17 15:45 Discharge Summary Reason For Visit: PNEUMONIA Current Active Problems Pneumonia (Acute) Condition: Fair - Instructions Referrals: Austin Briggs MD [Primary Care Provider] - - Home Medications Comprehensive Discharge Medication List: Ambulatory Orders Albuterol 0.083% Nebulizer Sobeida [Ventolin 0.083% Nebulizer Soln -] 1 neb NEB PRN PRN 02/05/17 Baclofen 5 mg GT TID 02/05/17 Cholecalciferol (Vitamin D3) [Vitamin D3] 2,000 unit GT DAILY 02/05/17 Lactulose 15 gm GT TID 02/05/17 Levetiracetam 1,500 mg GT BID 02/05/17 Nystatin Ointment [Mycostatin Ointment -] 1 applic TP PRN PRN 02/05/17 OXcarbazepine [Trileptal] 180 mg GT DAILY 02/05/17 OXcarbazepine [Trileptal] 210 mg GT HS 02/05/17 Topiramate 200 mg GT BID 02/05/17 Topiramate [Trokendi Xr] 25 mg GT BID 02/05/17 Albuterol 2.5/Ipratropium 0.5 [Duoneb -] 1 neb NEB Q4H 11/30/17 Diazepam Rectal Gel [Diastat Rectal Gel -] [address] PRN 11/30/17 Nutritional Supplement [Promote] 120 ml PO ASDIR 11/30/17 Sennosides [Senna] 8.6 mg PO BID 11/30/17 [place]
== END 2017-12-11 22:15 | disposition home or self-care (01) | DRG 177 ==
LOC: JER 10:02 → JERBED 14:47 → J6S 22:05
PROVIDERS: ADMIT Internal Medicine; ATTEND Internal Medicine
DX: J69.0 Pneumonitis due to inhalation of food and vomit (principal); J96.01 Acute respiratory failure with hypoxia; F72 Severe intellectual disabilities; Q67.5 Congenital deformity of spine; N39.0 Urinary tract infection, site not specified; G80.8 Other cerebral palsy; Z93.1 Gastrostomy status; K21.9 Gastro-esophageal reflux disease without esophagitis; G40.409 Other generalized epilepsy and epileptic syndromes, not intractable, without status epilepticus; B96.5 Pseudomonas (aeruginosa) (mallei) (pseudomallei) as the cause of diseases classified elsewhere; B96.89 Other specified bacterial agents as the cause of diseases classified elsewhere
CPT/HCPCS: 36415; 71045-TC-FY; 80048; 80053; 83735; 85025; 87040; 93005; 93010; 94640; 99283-25; J0475; J1644; J7620

== ENCOUNTER 2018-01-18 23:10 | Inpatient (IN) | payer OTHER ==
[2018-01-18] MEDS ORDERED: DEXAMETHASONE SOD PHOSPHATE 10 MG/1 ML VIAL ONE (23:20)
[2018-01-18] MEDS ORDERED: ALBUTEROL SO4 2.5/IPRATROPIUM 0.5 INH SOL 3 ML VIAL.NEB. NEB ONE ×2 (23:20→23:42)
[2018-01-18] MEDS ORDERED: SODIUM CHLORIDE 0.9% 1000 ML INFUS.BAG IV ONE (23:44)
--- NOTE | 2018-01-18 23:55 | PDOC ---
History of Present Illness - General Chief Complaint: Shortness of Breath Stated Complaint: DIFFICULTY BREATHING Time Seen by Provider: 01/18/18 23:36 - History of Present Illness Initial Comments: 01/18/18 23:44 27 yo F with h/o PEG, GERD, cerebral palsy, congenital quadriplegia, spastic quadriparesis, cerebral palsy, severe MR, non verbal and non communicative at baseline, seizure d/o, recurrent pneumonias (some with ICU admission), sent from [facility] with SOB, and hypoxia. Patient aide at bedside reports patient shortness of breath today with increased congestion. Oxygen 88% on 2 liters NC, BP 112/60, and HR 116, at OSNF. On Prednisone and albuterol. Patient aide denies N/V, F/C, SOB, urinary complaints, diarrhea, constipation. PMHx: as noted above ROS: as noted Allergies: NKDA Past History - Past Medical History Allergies/Adverse Reactions: Allergies Allergy/AdvReac Type Severity Reaction Status Date / Time No Known Allergies Allergy Verified 01/18/18 23:26 Home Medications: Ambulatory Orders Albuterol 0.083% Nebulizer Sobeida [Ventolin 0.083% Nebulizer Soln -] 1 neb NEB PRN PRN 02/05/17 Baclofen 5 mg GT TID 02/05/17 Cholecalciferol (Vitamin D3) [Vitamin D3] 2,000 unit GT DAILY 02/05/17 Lactulose 15 gm GT TID 02/05/17 Levetiracetam 1,500 mg GT BID 02/05/17 Nystatin Ointment [Mycostatin Ointment -] 1 applic TP PRN PRN 02/05/17 OXcarbazepine [Trileptal] 180 mg GT DAILY 02/05/17 OXcarbazepine [Trileptal] 210 mg GT HS 02/05/17 Topiramate 200 mg GT BID 02/05/17 Topiramate [Trokendi Xr] 25 mg GT BID 02/05/17 Albuterol 2.5/Ipratropium 0.5 [Duoneb -] 1 neb NEB Q4H 11/30/17 Diazepam Rectal Gel [Diastat Rectal Gel -] 10 mg WI PRN 11/30/17 Nutritional Supplement [Promote] 120 ml PO ASDIR 11/30/17 Sennosides [Senna] 8.6 mg PO BID 11/30/17 Anemia: No Asthma: No Cancer: No Cardiac Disorders: No CVA: No COPD: No CHF: No Dementia: No GI Disorders: Yes (GERD. GTUBE.) HTN: No Hypercholesterolemia: No Seizures: Yes (EPILEPSY.) Other medical history: QUADRIPLEGIA - Surgical History Abdominal Surgery: Yes GI Surgery: Yes (GTUBE.) Neurologic Surgery: Yes (SPINAL SX.) - Immunization History Td Vaccination: Yes Immunization Up to Date: Yes - Suicide/Smoking/Psychosocial Hx Smoking History: Never smoked Have you smoked in the past 12 months: No Number of Cigarettes Smoked Daily: 0 Hx Alcohol Use: No Drug/Substance Use Hx: No Substance Use Type: None Hx Substance Use Treatment: No Review of Systems - Review of Systems Comments:: 01/19/18 01:30 Limited d/t MR, non verbal, non communicative at baseline. *Physical Exam - Vital Signs Last Vital Signs Temp Pulse Resp BP Pulse Ox 118 H 24 86/50 88 L 01/18/18 23:24 01/18/18 23:24 01/18/18 23:24 01/18/18 23:24 - Physical Exam Comments: 01/19/18 01:31 GENERAL: Awake, alert, non verbal, non communicative at baseline. Eyes open to verbal command. HEAD: No signs of trauma, normocephalic, atraumatic EYES: PERRLA, EOMI, sclera anicteric, conjunctiva clear ENT: Auricles normal inspection, hearing grossly normal, nares patent, oropharynx clear without exudates. Moist mucosa NECK: Normal ROM, supple, no lymphadenopathy, JVD, or masses LUNGS: BL coarse rhoncorous lungs sound throughout. HEART: Regular rate and rhythm, normal S1 and S2, no murmurs, rubs or gallops, peripheral pulses normal and equal bilaterally. ABDOMEN: Soft, nontender, normoactive bowel sounds. No guarding, no rebound. No masses. Neg CVA ttp. + PEG tube placement in LUQ. insertion site c/d/i. EXTREMITIES : + BL UE wrist contractions. Normal inspection, Normal range of motion, no edema. No clubbing or cyanosis. SKIN: Warm, Dry, normal turgor, no rashes or lesions noted ED Treatment Course - LABORATORY CBC & Chemistry Diagram: 01/19/18 01:00 01/19/18 01:34 Medical Decision Making - Medical Decision Making 01/19/18 01:18 27 yo F with h/o PEG, GERD, cerebral palsy, congenital quadriplegia, spastic quadriparesis, cerebral palsy, severe MR, non verbal and non communicative at baseline, seizure d/o, recurrent pneumonias (some with ICU admission), sent from [facility] with SOB, and hypoxia. HR 118, O2 88 % NRB 10 L%. Moderate risk PE based on Wells Criteria. R/o PNA. DDx: aspiration PNA, reactive airway disease, asthma exacerbation. Will assess for electrolyte abnml, metabolic and toxic derangements, acid base disturbances, and infection. Ed Course: CBC, CMP, LA, ABG UA, Urine Cx. EKG, CXR EKG: Sinus Tachycardia, with absent NELLY, STD. Nml interval duration and axis. 01/19/18 02:26 Patient given Topamax 200, Keppra 1500 mg, Oxcarbazepine 200, and Baclofen 5 GT seizure ppx. 01/19/18 02:27 WBC: 8.9 AB.28/40.1/154/18.1 01/19/18 04:28 CXR: R middle lobe infiltrates on preliminary read. kush Jolly Admit to Dr. Gutierrez. ICU
--- NOTE | 2018-01-19 00:23 | PDOC ---
Attending Attestation - Resident Resident Name: Selvin Garner - ED Attending Attestation I have performed the following: I have examined & evaluated the patient, The case was reviewed & discussed with the resident, I agree w/resident's findings & plan, Exceptions are as noted - Medical Decision Making 01/19/18 00:16 I, Dr. Shayy Ruelas, DO, attest that this document has been prepared under my direction and personally reviewed by me in its entirety. I further attest, that it accurately reflects all work, treatment, procedures and medical decision -making performed by me. 01/19/18 00:16 a/p: 27yo female from [facility] with hx of mental retardation/ cp - nonverbal at baseline -sent for eval of low pulse ox, cough, sounding congested -no fever per transfer paperwork -pulse ox 88 on vitals at facility -will send labs, cultures, cxr -abg -will give neb tx -will most likely have PNA - recently admitted in November for PNA -if pna on imaging will need hcap meds -will monitor and reassess -pulse ox 100% on neb and after suctioning <Shayy Ruelas - Last Filed: 01/19/18 00:25> - HPI HPI: 01/19/18 01:52 The patient is a 27-year-old female from [facility], with as past medical history of mental retardation, cerebral palsy (nonverbal at baseline), and seizure disorder, who presents to the ED with difficulty breathing accompanied by cough and congestion. The patient was diagnosed with pneumonia in November 2017. Patient was noted to be in respiratory distress upon arrival to the ED. No seizure activity was noted during the visit. - Physicial Exam PE: 01/19/18 01:57 GENERAL: Awake, alert, in no acute distress HEAD: No signs of trauma EYES: PERRLA, EOMI, sclera anicteric, conjunctiva clear ENT: Auricles normal inspection, hearing grossly normal, nares patent, oropharynx clear without exudates. Moist mucosa NECK: Normal ROM, supple, no lymphadenopathy, JVD, or masses LUNGS: (+)Very rhonchorous breath sounds. No wheezes, and no crackles HEART: (+)Tachycardic. Normal S1 and S2, no murmurs, rubs or gallops ABDOMEN: (+)Peg tube in place. Soft, nontender, normoactive bowel sounds. No guarding, no rebound. No masses EXTREMITIES: (+)Lower extremities are extended, upper extremities are contracted. No edema. No clubbing or cyanosis. No cords, erythema, or tenderness. NEUROLOGICAL: (+)Nonverbal at baseline, opens eyes to verbal commands at baseline. SKIN: Warm, Dry, normal turgor, no rashes or lesions noted <Trini Hodge - Last Filed: 01/19/18 02:01> Heart Score/ECG Review - ECG Intrepretation Comment:: 01/19/18 00:25 sinus tach at 107, nl axis, nl interval, t wave inversions III, no acute st changes <Shayy Ruelas - Last Filed: 01/19/18 00:25> Attestations - Attestations 01/19/18 02:01 Documentation prepared by Trini Hodge, acting as medical instructor for Shayy Ruelas DO. <Trini Hodge - Last Filed: 01/19/18 02:01>
[2018-01-19] MEDS ORDERED: ALBUTEROL SO4 2.5/IPRATROPIUM 0.5 INH SOL 3 ML VIAL.NEB. NEB ONE (00:32)
[2018-01-19 01:02] LABS: HEMATOCRIT 30.2 % (32.4-45.2); HEMOGLOBIN 10.3 GM/dL (10.7-15.3); LYMPH % 2.8 % (8-40); MEAN CELL VOLUME 97.1 fl (80-96); MEAN PLT VOLUME 9.8 fl (7.5-11.1); MONO % 4.6 % (3.8-10.2); NEUT % 92.6 % (42.8-82.8); PLATELET COUNT 117 K/MM3 (134-434); RBC 3.11 M/mm3 (3.60-5.2); RDW 16.8 % (11.6-15.6); WHITE BLOOD COUNT 8.9 K/mm3 (4.0-10.0)
[2018-01-19] MEDS ORDERED: BACLOFEN 10 MG TABLET (FP) PO ONE (01:37)
[2018-01-19] MEDS ORDERED: TOPIRAMATE 200 MG TABLET (FP) PO ONE (01:37)
[2018-01-19] MEDS ORDERED: OXcarbazepine 300 MG/5 ML 250 ML BULK BOTTLE PO ONE (01:37)
[2018-01-19] MEDS ORDERED: levETIRAcetam 500 MG TABLET (FP) PO ONE (01:37)
[2018-01-19 01:57] LABS: ARTERIAL BLD GAS O2 SATURATION 99.5 % (90-98.9); ARTERIAL BLOOD GAS BASE EXCESS -7.7 meq/l (-2-2); ARTERIAL BLOOD GAS PCO2 40.1 mmHg (35-45); ARTERIAL BLOOD GAS pH 7.28 (7.35-7.45)
[2018-01-19 02:02] LABS: ALLENS TEST POSITIVE
[2018-01-19 02:05] LABS: CARBOXYHEMOGLOBIN 1.9 gm% (0.5-2.0)
[2018-01-19 02:12] LABS: PLATELET ESTIMATE ADEQUATE
[2018-01-19 02:21] LABS: ALBUMIN 2.8 g/dl (3.4-5.0); ANION GAP 10 (8-16); BILIRUBIN,TOTAL 0.2 mg/dL (0.2-1.0); BLOOD UREA NITROGEN 16 mg/dL (7-18); CALCIUM 8.1 mg/dL (8.5-10.1); CHLORIDE 113 mmol/L (98-107); CO2 18 mmol/L (21-32); CREATININE 0.6 mg/dL (0.55-1.02); GLUCOSE,RANDOM 181 mg/dL (74-106); MAGNESIUM 1.9 mg/dL (1.8-2.4); POTASSIUM 3.5 mmol/L (3.5-5.1); SGOT/AST 206 U/L (15-37); SGPT/ALT 230 U/L (12-78); SODIUM 141 mmol/L (136-145); TOT PROT 6.6 g/dl (6.4-8.2)
[2018-01-19 02:23] LABS: ALK PHOS 380 U/L (45-117)
[2018-01-19] MEDS ORDERED: PIPERACILLIN/TAZOB 4.5 GM 4.5 GM in DEXTROSE 5%-WATER 100 ML IVPB ONE ×3 (04:27→17:00)
[2018-01-19] MEDS ORDERED: VANCOMYCIN 1,500 MG in DEXTROSE 5%-WATER - 250 ML IVPB ONE (04:27)
[2018-01-19] MEDS ORDERED: PIPERACILLIN/TAZOB 4.5 GM 4.5 GM/100 ML BAG IVPB ONE (04:39)
[2018-01-19] MEDS ORDERED: VANCOMYCIN 1,500 MG in DEXTROSE 5%-WATER - 500 ML IVPB ONE (04:41)
[2018-01-19] MEDS ORDERED: SODIUM CHLORIDE 1,000 ML IV STA (04:50)
[2018-01-19] MEDS ORDERED: VANCOMYCIN 1 GM PREMIX - 1 GM/200 ML BAG IVPB ONE ×3 (05:38→17:00)
[2018-01-19] MEDS ORDERED: ACETAMINOPHEN 1000 MG/100 ML VIAL (NON FORMULARY) IVPB PRN (05:40)
[2018-01-19] MEDS ORDERED: SODIUM CHLORIDE 1,000 ML IV SCH ×2 (05:45→12:42)
[2018-01-19] MEDS ORDERED: NUTRITIONAL SUPPLEMENT PO SCH (06:00)
--- NOTE | 2018-01-19 06:12 | HP ---
CHIEF COMPLAINT: shortness of breath PCP: HISTORY OF PRESENT ILLNESS: 27 y/o female from [facility] presents with shortness of breath. As per her aide at bedside, she first noticed at beginning of her shift 11PM last night that patient had audible coarse, labored breathing and productive cough with light-yellow colored sputum. Admits patient was saturating 88% on 2L nasal cannula, and had chills. Denies sick contacts. Last pneumonia was November 2017. ER course was notable for: (1) Vancomycin, zosyn, CXR, (2) (3) Recent Travel: PAST MEDICAL HISTORY: recurrent pneumonia cerebral palsy, congenital quadriplegia, MR, nonverbal non communicative at baseline, seizures PAST SURGICAL HISTORY: Unable to obtain Social History: Unable to obtain Family History: Unable to obtain Allergies No Known Allergies Allergy (Verified 01/18/18 23:26) HOME MEDICATIONS: Home Medications Medication Instructions Recorded Albuterol 0.083% Nebulizer Sobeida 1 neb NEB PRN PRN 02/05/17 [Ventolin 0.083% Nebulizer Soln -] Baclofen 5 mg GT TID 02/05/17 Cholecalciferol (Vitamin D3) 2,000 unit GT DAILY 02/05/17 [Vitamin D3] Lactulose 15 gm GT TID 02/05/17 Levetiracetam 1,500 mg GT BID 02/05/17 Nystatin Ointment [Mycostatin 1 applic TP PRN PRN 02/05/17 Ointment -] OXcarbazepine [Trileptal] 180 mg GT DAILY 02/05/17 OXcarbazepine [Trileptal] 210 mg GT HS 02/05/17 Topiramate 200 mg GT BID 02/05/17 Topiramate [Trokendi Xr] 25 mg GT BID 02/05/17 Albuterol 2.5/Ipratropium 0.5 1 neb NEB Q4H 11/30/17 [Duoneb -] Diazepam Rectal Gel [Diastat 10 mg VA PRN 11/30/17 Rectal Gel -] Nutritional Supplement [Promote] 120 ml PO ASDIR 11/30/17 Sennosides [Senna] 8.6 mg PO BID 11/30/17 REVIEW OF SYSTEMS Unable to obtain PHYSICAL EXAMINATION Vital Signs - 24 hr 01/18/18 01/19/18 01/19/18 23:24 02:02 05:35 Temperature 98.1 F Pulse Rate 118 H Pulse Rate [ 81 Right Radial] Respiratory 24 20 Rate Blood Pressure 86/50 Blood Pressure 95/65 [Right Arm] O2 Sat by Pulse 88 L 95 94 L Oximetry (%) 01/19/18 05:43 Temperature Pulse Rate Pulse Rate [ Right Radial] Respiratory Rate Blood Pressure Blood Pressure [Right Arm] O2 Sat by Pulse 94 L Oximetry (%) GENERAL: Awake, diaphoretic, in respiratory distress. HEAD: Normal with no signs of trauma. EYES: Pupils equal, round and reactive to light, conjunctiva clear. EARS, NOSE, THROAT: Oropharynx with copious secretions LUNGS: Labored breathing, inspiratory wheezing, coarse breath sounds B/L worse upon exhalation. Coarse crackles auscultated B/L HEART: Regular rate and rhythm, normal S1 and S2. ABDOMEN: Soft, not distended. PEG tube in place, nonerythematous skin surrounding PEG tube site. EXTREMITIES: 2+ pulses, warm. No peripheral edema. Laboratory Results - last 24 hr 01/18/18 01/19/18 01/19/18 01:05 00:00 00:00 WBC RBC Hgb Hct MCV MCH MCHC RDW Plt Count MPV Absolute Neuts (auto) Neutrophils % Neutrophils % (Manual) Band Neutrophils % Lymphocytes % Lymphocytes % (Manual) Monocytes % Monocytes % (Manual) Eosinophils % Basophils % Nucleated RBC % Platelet Estimate Anticoagulation Therapy Puncture Site ABG pH ABG pCO2 at Pt Temp ABG pO2 at Pt Temp ABG HCO3 ABG O2 Sat (Measured) ABG O2 Content ABG Base Excess Sen Test Carboxyhemoglobin 1.9 Methemoglobin 1.4 O2 Delivery Device Oxygen Flow Rate Vent Mode Vent Rate Mechanical Rate Pressure Support Vent Sodium Cancelled Potassium Cancelled Chloride Cancelled Carbon Dioxide Cancelled Anion Gap Cancelled BUN Cancelled Creatinine Cancelled Creat Clearance w eGFR Cancelled Random Glucose Cancelled Lactic Acid 1.6 Calcium Cancelled Magnesium Cancelled Total Bilirubin Cancelled AST Cancelled ALT Cancelled Alkaline Phosphatase Cancelled Creatine Kinase Cancelled Creatine Kinase Index CK-MB (CK-2) Troponin I Cancelled Total Protein Cancelled Albumin Cancelled Serum , Qual 01/19/18 01/19/18 01/19/18 00:26 01:00 01:10 WBC 8.9 RBC 3.11 L Hgb 10.3 L Hct 30.2 L MCV 97.1 H MCH 33.0 MCHC 34.0 RDW 16.8 H Plt Count 117 L D MPV 9.8 D Absolute Neuts (auto) 8.2 Neutrophils % 92.6 H D Neutrophils % (Manual) 80.0 Band Neutrophils % 6.0 Lymphocytes % 2.8 L D Lymphocytes % (Manual) 6.0 L Monocytes % 4.6 Monocytes % (Manual) 8 Eosinophils % 0.0 D Basophils % 0.0 Nucleated RBC % 0 Platelet Estimate Adequate Anticoagulation Therapy No Result Required. Puncture Site ABG pH ABG pCO2 at Pt Temp ABG pO2 at Pt Temp ABG HCO3 ABG O2 Sat (Measured) ABG O2 Content ABG Base Excess Sen Test Carboxyhemoglobin Methemoglobin O2 Delivery Device No Result Required. Oxygen Flow Rate Vent Mode No Result Required. Vent Rate No Result Required. Mechanical Rate No Result Required. Pressure Support Vent No Result Required. Sodium Potassium Chloride Carbon Dioxide Anion Gap BUN Creatinine Creat Clearance w eGFR Random Glucose Lactic Acid Calcium Magnesium Total Bilirubin AST ALT Alkaline Phosphatase Creatine Kinase Creatine Kinase Index CK-MB (CK-2) Troponin I Total Protein Albumin Serum , Qual Negative 01/19/18 01/19/18 01:10 01:34 WBC RBC Hgb Hct MCV MCH MCHC RDW Plt Count MPV Absolute Neuts (auto) Neutrophils % Neutrophils % (Manual) Band Neutrophils % Lymphocytes % Lymphocytes % (Manual) Monocytes % Monocytes % (Manual) Eosinophils % Basophils % Nucleated RBC % Platelet Estimate Anticoagulation Therapy Puncture Site Right radial ABG pH 7.28 L ABG pCO2 at Pt Temp 40.1 D ABG pO2 at Pt Temp 154.0 H* ABG HCO3 18.1 L ABG O2 Sat (Measured) 99.5 H ABG O2 Content 14.6 L ABG Base Excess -7.7 L Sen Test Positive Carboxyhemoglobin Methemoglobin O2 Delivery Device Oxygen Flow Rate Yes Vent Mode Vent Rate Mechanical Rate Pressure Support Vent Sodium 141 Potassium 3.5 Chloride 113 H Carbon Dioxide 18 L Anion Gap 10 BUN 16 Creatinine 0.6 Creat Clearance w eGFR > 60 Random Glucose 181 H Lactic Acid Calcium 8.1 L Magnesium 1.9 Total Bilirubin 0.2 AST 206 H ALT 230 H Alkaline Phosphatase 380 H Creatine Kinase 327 H Creatine Kinase Index 4.2 CK-MB (CK-2) 13.84 H Troponin I < 0.02 Total Protein 6.6 Albumin 2.8 L Serum , Qual ASSESSMENT/PLAN: 27 y/o female from [facility] presents with shortness of breath for the past day. Pneumonia- Health care acquired pneumonia vs Aspiration pneumonia -Admit to ICU -CXR shows B/L diffuse infiltrates with B/L costophrenic angle blunting -Vancomycin, Zosyn -ID consult -F/U sputum, blood, urine cultures -Tylenol PRN -Duonebs Seizures -Reinstate Keppra, Topamax, Oxcarbazepine, rectal Diazepam Spastic cerebral palsy -Continue Baclofen Constipation -Continue Lactulose, Senna FEN -IV NS 100ml/hr -No electrolyte repletion at this time -PEG tube feeds- to be adjusted by banjo repair person Prophylaxis -Heparin subqTID 5000u Disposition: Admit to ICU Code status: Full code Case discussed with collection specialist attending. Visit type - Emergency Visit Emergency Visit: Yes Care time: The patient presented to the Emergency Department on the above date and was hospitalized for further evaluation of their emergent condition. - New Patient This patient is new to me today: Yes Date on this admission: 01/19/18 - Critical Care Critical Care patient: Yes Total Critical Care Time (in minutes): 30 Critical Care Statement: The care of this patient involved high complexity decision making to prevent further life threatening deterioration of the patient 's condition and/or to evaluate & treat vital organ system(s) failure or risk of failure. Hospitalist Screening - Colonoscopy Questionnaire Colonoscopy Questionnaire: Colonoscopy Questionnaire - Patient: 50 - 75 years old and never had a screening colonoscopy: Unknown History of colon or rectal polyps, or CA: Unknown History of IBD, Crohn's disease or UC: Unknown History of abdominal radiation therapy as a child: Unknown - Relative: 1 with colon or rectal CA, or polyps at age 60 or younger: Unknown Colon or rectal CA diagnosed at age 45 or younger: Unknown Multiple relatives with colon or rectal CA: Unknown - Outcome: Screening Result: Negative Screen
[2018-01-19] MEDS ORDERED: LACTULOSE 20 GM/30 ML UDC (FOR ORAL USE ONLY) ONE (06:20)
[2018-01-19] MEDS: BACLOFEN 10 MG TABLET (FP) GT SCH ×3 (06:30→22:33)
[2018-01-19] MEDS: HEPARIN NA (PORCINE) 5,000 UNITS/ML 1ML VIAL SQ SCH ×3 (06:30→22:05)
[2018-01-19 06:35] LABS: ALLENS TEST POSITIVE; ARTERIAL BLD GAS O2 SATURATION 95.1 % (90-98.9); ARTERIAL BLOOD GAS PCO2 36.7 mmHg (35-45); ARTERIAL BLOOD GAS PO2 72.3 mmHg (80-100); ARTERIAL BLOOD GAS pH 7.33 (7.35-7.45)
[2018-01-19 06:36] LABS: CARBOXYHEMOGLOBIN 2.1 gm% (0.5-2.0)
[2018-01-19 07:17] LABS: BASO % 0.1 % (0-2.0); HEMATOCRIT 22.7 % (32.4-45.2); HEMOGLOBIN 7.1 GM/dL (10.7-15.3); LYMPH % 6.4 % (8-40); MCH 33.4 pg (25.7-33.7); MCHC 31.4 g/dl (32.0-36.0); MEAN CELL VOLUME 106.3 fl (80-96); MEAN PLT VOLUME 9.5 fl (7.5-11.1); MONO % 4.5 % (3.8-10.2); PLATELET COUNT 71 K/MM3 (134-434); RBC 2.14 M/mm3 (3.60-5.2); RDW 17.9 % (11.6-15.6); WHITE BLOOD COUNT 7.5 K/mm3 (4.0-10.0)
[2018-01-19 07:37] LABS: URINE APPEARANCE CLEAR; URINE BILIRUBIN NEGATIVE (<2.0 mg/dL); URINE COLOR LTYELLOW; URINE GLUCOSE (UA) NEGATIVE (NEGATIVE); URINE KETONE NEGATIVE (NEGATIVE); URINE LEUK ESTERASE NEGATIVE (NEGATIVE); URINE NITRITE NEGATIVE (NEGATIVE); URINE PROTEIN NEGATIVE (NEGATIVE); URINE UROBILINOGEN NEGATIVE mg/dL (0.2-1.0)
[2018-01-19 07:41] LABS: INR 1.01 (0.82-1.09); PROTHROMBIN TIME (PATIENT) 11.4 SEC (9.7-13.0)
[2018-01-19 07:44] LABS: ACTIVATED PTT 20.7 SECONDS (25.2-36.5)
--- NOTE | 2018-01-19 07:49 | PN ---
Teaching Attending Note Name of Resident: Chris Burnett ATTENDING PHYSICIAN STATEMENT I saw and evaluated the patient. I reviewed the resident's note and discussed the case with the resident. I agree with the resident's findings and plan as documented. SUBJECTIVE: Patient sent from [facility] for productive cough, SOB for evaluation for pneumonia. Patient is nonverbal and so unable to give history. Medical documents sent from [place] and reviewed. PMH: Past Problems Acute respiratory failure with hypoxia (Resolved) OBJECTIVE: Exam as documented in H&P CBCD WBC 8.9 K/mm3 (4.0-10.0) 01/19/18 01:00 RBC 3.11 M/mm3 (3.60-5.2) L 01/19/18 01:00 Hgb 10.3 GM/dL (10.7-15.3) L 01/19/18 01:00 Hct 30.2 % (32.4-45.2) L 01/19/18 01:00 MCV 97.1 fl (80-96) H 01/19/18 01:00 MCHC 34.0 g/dl (32.0-36.0) 01/19/18 01:00 RDW 16.8 % (11.6-15.6) H 01/19/18 01:00 Plt Count 117 K/MM3 (134-434) L D 01/19/18 01:00 MPV 9.8 fl (7.5-11.1) D 01/19/18 01:00 CMP Sodium 141 mmol/L (136-145) 01/19/18 01:34 Potassium 3.5 mmol/L (3.5-5.1) 01/19/18 01:34 Chloride 113 mmol/L (98-107) H 01/19/18 01:34 Carbon Dioxide 18 mmol/L (21-32) L 01/19/18 01:34 Anion Gap 10 (8-16) 01/19/18 01:34 BUN 16 mg/dL (7-18) 01/19/18 01:34 Creatinine 0.6 mg/dL (0.55-1.02) 01/19/18 01:34 Creat Clearance w eGFR > 60 (>60) 01/19/18 01:34 Calcium 8.1 mg/dL (8.5-10.1) L 01/19/18 01:34 Total Bilirubin 0.2 mg/dL (0.2-1.0) 01/19/18 01:34 AST 206 U/L (15-37) H 01/19/18 01:34 ALT 230 U/L (12-78) H 01/19/18 01:34 Alkaline Phosphatase 380 U/L (45-117) H 01/19/18 01:34 Total Protein 6.6 g/dl (6.4-8.2) 01/19/18 01:34 Albumin 2.8 g/dl (3.4-5.0) L 01/19/18 01:34 ASSESSMENT AND PLAN: Sepsis secondary to HAP with hypoxic respiratory failure Oxygen via CO ICU consulted for admission Trisha and Armin IVF Follow cultures
[2018-01-19] MEDS: ALBUTEROL SO4 2.5/IPRATROPIUM 0.5 INH SOL 3 ML VIAL.NEB. NEB PRN (08:32)
[2018-01-19 09:37] LABS: ALBUMIN 2.9 g/dl (3.4-5.0); ANION GAP 7 (8-16); BLOOD UREA NITROGEN 12 mg/dL (7-18); CALCIUM 8.4 mg/dL (8.5-10.1); CHLORIDE 111 mmol/L (98-107); CO2 22 mmol/L (21-32); GLUCOSE,RANDOM 89 mg/dL (74-106); POTASSIUM 3.6 mmol/L (3.5-5.1); SODIUM 140 mmol/L (136-145)
[2018-01-19 09:46] LABS: ALK PHOS 340 U/L (45-117); BILIRUBIN,TOTAL 0.3 mg/dL (0.2-1.0); CREATININE 0.5 mg/dL (0.55-1.02); SGOT/AST 132 U/L (15-37); SGPT/ALT 212 U/L (12-78); TOT PROT 6.7 g/dl (6.4-8.2)
[2018-01-19] MEDS ORDERED: diazePAM ACUDIAL 5-7.5-10 MG 1 EACH KIT RC ONE (10:15)
[2018-01-19] MEDS ORDERED: PT OWN MED DRAWER 7, Y5N ONE ×5 (10:43→21:59)
[2018-01-19] MEDS: LACTULOSE 20 GM/30 ML UDC (FOR ORAL USE ONLY) GT SCH ×3 (10:47→22:05)
[2018-01-19] MEDS: MUPIROCIN 2% TOPICAL OINTMENT FOR DECOLONIZATION NS SCH ×2 (10:48→22:06)
[2018-01-19] MEDS: levETIRAcetam 500 MG/5 ML ORAL SOLUTION (UNIT-DOSE CUPS) GT SCH ×2 (10:49→22:05)
[2018-01-19] MEDS: SCOPOLAMINE HYDROBROMIDE 1 PATCH PATCH.TD72 TD SCH (10:55)
[2018-01-19] MEDS: SENNOSIDES 8.6MG TABLET (FP) PO SCH ×2 (10:57→22:06)
--- NOTE | 2018-01-19 11:00 | PN ---
Progress Note (short form) - Note Progress Note: ID Consult dictated R HCAP Possible sepsis secondary to pneumonia Thrombocytopenia ? sepsis Elevated LFTs CP/MR Await c/s Empiric zosyn + stat dose vancomycin Monitor plt/ LFTs
--- NOTE | 2018-01-19 11:34 | CONS ---
DATE OF CONSULTATION: DATE OF DICTATION: 01/19/2018 HISTORY OF PRESENT ILLNESS: The patient is a 27-year-old female resident of [facility] who is evaluated for pneumonia and sepsis. History was obtained from the chart as she cannot give a history secondary to her mental state. She was transferred from the facility on January 19, 2018, with worsening shortness of breath. The patient was noted at the facility to be short of breath and hypoxemic with respiratory secretions. She was transferred to [facility] where she was evaluated in the emergency room. Chest x-ray showed increased markings, right lung field, consistent with pneumonia. She was noted to have congestion, cough and increased secretions. She was transferred to the intensive care unit where she was empirically treated with vancomycin and Zosyn. At the present time she is awake. However, she is not verbally responsive which is her baseline. She does not appear to be in any acute respiratory distress on nasal cannula. She is noted to have cough and respiratory secretions. The patient is a resident of a nursing facility. She has had a recent hospitalization in November of this year for pneumonia. She has had multiple hospitalizations in the past. No known ill contacts. No active tobacco or alcohol use. Patient received a pneumococcal vaccine in 2016 and influenza vaccine in 2016. PAST MEDICAL HISTORY: Positive for cerebral palsy, mental retardation, seizure disorder, gastroesophageal reflux, recurrent pneumonias. PAST SURGICAL HISTORY: Status post feeding gastrostomy. ALLERGIES: No known allergies. MEDICATIONS: Include albuterol; baclofen; lactulose; Trileptal; topiramate; Valium. SOCIAL HISTORY: She is a resident of a senior living facility. She is nonverbal at baseline. She is totally dependent in activities of daily living. No active tobacco or alcohol use. SYSTEMS REVIEW:Neurologic: Positive for mental retardation, cerebral palsy, seizure disorder. Cardiac: Negative. Respiratory: As per HPI. Gastrointestinal: History of GERD and a feeding gastrostomy. Genitourinary: Negative for urinary tract infection. LABORATORY DATA: White count 7.5, hematocrit 22.7, platelet count 71. BUN 12, creatinine 0.5, total bilirubin 0.3, alkaline phosphatase 340, AST 132, ALT 212. Cultures pending. Chest x-ray shows increased markings, right lung field. PHYSICAL EXAMINATION:General: She is awake. She is not verbally responsive. She appears comfortable on nasal cannula O2 in no acute respiratory distress. Vital Signs: Temperature 98, blood pressure 109/61, pulse 91, regular, respirations 22 per minute. HEENT: Sclerae are anicteric. Positive oral secretions. Cardiac: Heart sounds S1, S2. Lungs: Scattered rhonchi bilaterally. No wheezing noted. Abdomen: Distended, tympanitic. No tenderness elicited. Feeding gastrostomy tube is in place. Extremities: Edema 1+. Neurologic: Positive for quadriparesis. IMPRESSION: 1. Healthcare-associated pneumonia, right lung. 2. Possible sepsis secondary to the pneumonia. 3. Thrombocytopenia, possibly secondary to sepsis. 4. Elevated liver enzymes, possibly related to sepsis. 5. Cerebral palsy and mental retardation. RECOMMENDATIONS: Await blood and sputum culture results. Obtain urine Legionella and pneumococcal antigen. Continue empiric Zosyn. Stat dose vancomycin. Patient previously had Pseudomonas and Serratia in sputum culture sensitive to Zosyn. Monitor platelet count, hematocrit and liver enzymes. Will follow. Thank you for the kind referral. MATTHEW JJ M.D. [id number]
[2018-01-19 12:33] LABS: ANISOCYTOSIS 1+; MACROCYTOSIS 1+; OVALOCYTE 1+
[2018-01-19 12:46] LABS: BASO % 0.2 % (0-2.0); HEMATOCRIT 26.6 % (32.4-45.2); HEMOGLOBIN 8.9 GM/dL (10.7-15.3); LYMPH % 17.7 % (8-40); MCH 32.4 pg (25.7-33.7); MCHC 33.3 g/dl (32.0-36.0); MEAN CELL VOLUME 97.4 fl (80-96); MEAN PLT VOLUME 9.4 fl (7.5-11.1); MONO % 8.1 % (3.8-10.2); PLATELET COUNT 106 K/MM3 (134-434); RBC 2.73 M/mm3 (3.60-5.2); RDW 17.2 % (11.6-15.6); WHITE BLOOD COUNT 6.8 K/mm3 (4.0-10.0)
--- NOTE | 2018-01-19 13:58 | PN ---
Teaching Attending Note Name of Resident: Madhu Sweet ATTENDING PHYSICIAN STATEMENT I saw and evaluated the patient. I reviewed the resident's note and discussed the case with the resident. I agree with the resident's findings and plan as documented. SUBJECTIVE: Patient seen and examined in the ICU. Awake. Non-verbal. Mildly tachypneic with dry cough on NC O2. No pressors. Hemodynamics have been stable. Intake & Output 01/16/18 01/17/18 01/18/18 01/19/18 23:59 23:59 23:59 23:59 Weight 100 lb 110 lb 7.225 oz Last Vital Signs Temp Pulse Resp BP Pulse Ox 97.2 F L 79 26 H 124/68 95 01/19/18 12:17 01/19/18 12:17 01/19/18 12:17 01/19/18 12:17 01/19/18 09:46 Active Medications Acetaminophen (Ofirmev Injection -) 1,000 mg IVPB ONCE PRN PRN Reason: FEVER Albuterol/Ipratropium (Duoneb -) 1 amp NEB Q4H PRN PRN Reason: respiratory distress Last Admin: 01/19/18 08:32 Dose: 1 amp Baclofen (Lioresal -) 5 mg GT TID HARIS Last Admin: 01/19/18 06:30 Dose: 5 mg Chlorhexidine Gluconate (Hibiclens For Decolonization -) 1 applic TP HS HARIS Heparin Sodium (Porcine) (Heparin -) 5,000 unit SQ TID HARIS Last Admin: 01/19/18 06:30 Dose: 5,000 unit Vancomycin HCl (Vancomycin 1 Gm Premix -) 1 gm in 200 mls @ 133.333 mls/hr IVPB ONCE ONE Stop: 01/19/18 14:29 Piperacillin Sod/Tazobactam (Sod 3.375 gm/ Dextrose) 50 mls @ 100 mls/hr IVPB Q8H-IV HARIS; Protocol Sodium Chloride (Normal Saline -) 1,000 mls @ 50 mls/hr IV ASDIR HARIS Lactulose (Cephulac (Oral Use)) 10 gm GT TID HARIS Last Admin: 01/19/18 10:47 Dose: 10 gm Levetiracetam (Keppra Oral Solution -) 1,500 mg GT BID HARIS Last Admin: 01/19/18 10:49 Dose: 1,500 mg Mupirocin (Bactroban Ointment (For Decolonization) -) 1 applic NS BID [facility] Stop: 01/24/18 09:59 Last Admin: 01/19/18 10:48 Dose: 1 applic Oxcarbazepine (Trileptal) 210 mg GT HS HARIS Prednisone (Deltasone -) 40 mg PO DAILY [facility] Scopolamine HBr (Transderm-Scop -) 1 patch TD Q72H HARIS Last Admin: 01/19/18 10:55 Dose: 1 patch Senna (Senna -) 1 tab PO BID HARIS Last Admin: 01/19/18 10:57 Dose: 1 tab Topiramate (Topamax -) 200 mg GT BID [facility] GENERAL: Awake, non-verbal, no respiratory distress. HEAD: Normal with no signs of trauma. EYES: Pupils equal, round and reactive to light, conjunctiva clear. EARS, NOSE, THROAT: Oropharynx with copious secretions LUNGS: Bilateral coarse breath sounds, no wheezing HEART: Regular rate and rhythm, normal S1 and S2. ABDOMEN: Soft, not distended. PEG tube in place, nonerythematous skin surrounding PEG tube site. EXTREMITIES: 2+ pulses, warm. No peripheral edema. Laboratory Results - last 24 hr 01/18/18 01/19/18 01/19/18 01:05 00:00 00:00 WBC RBC Hgb Hct MCV MCH MCHC RDW Plt Count MPV Absolute Neuts (auto) Neutrophils % Neutrophils % (Manual) Band Neutrophils % Lymphocytes % Lymphocytes % (Manual) Monocytes % Monocytes % (Manual) Eosinophils % Basophils % Nucleated RBC % Platelet Estimate Anticoagulation Therapy Puncture Site ABG pH ABG pCO2 at Pt Temp ABG pO2 at Pt Temp ABG HCO3 ABG O2 Sat (Measured) ABG O2 Content ABG Base Excess Sen Test Carboxyhemoglobin 1.9 Methemoglobin 1.4 O2 Delivery Device Oxygen Flow Rate Vent Mode Vent Rate Mechanical Rate Pressure Support Vent Sodium Cancelled Potassium Cancelled Chloride Cancelled Carbon Dioxide Cancelled Anion Gap Cancelled BUN Cancelled Creatinine Cancelled Creat Clearance w eGFR Cancelled Random Glucose Cancelled Lactic Acid 1.6 Calcium Cancelled Magnesium Cancelled Total Bilirubin Cancelled AST Cancelled ALT Cancelled Alkaline Phosphatase Cancelled Creatine Kinase Cancelled Creatine Kinase Index CK-MB (CK-2) Troponin I Cancelled Total Protein Cancelled Albumin Cancelled Serum , Qual 01/19/18 01/19/18 01/19/18 00:26 01:00 01:10 WBC 8.9 RBC 3.11 L Hgb 10.3 L Hct 30.2 L MCV 97.1 H MCH 33.0 MCHC 34.0 RDW 16.8 H Plt Count 117 L D MPV 9.8 D Absolute Neuts (auto) 8.2 Neutrophils % 92.6 H D Neutrophils % (Manual) 80.0 Band Neutrophils % 6.0 Lymphocytes % 2.8 L D Lymphocytes % (Manual) 6.0 L Monocytes % 4.6 Monocytes % (Manual) 8 Eosinophils % 0.0 D Basophils % 0.0 Nucleated RBC % 0 Platelet Estimate Adequate Anticoagulation Therapy No Result Required. Puncture Site ABG pH ABG pCO2 at Pt Temp ABG pO2 at Pt Temp ABG HCO3 ABG O2 Sat (Measured) ABG O2 Content ABG Base Excess Sen Test Carboxyhemoglobin Methemoglobin O2 Delivery Device No Result Required. Oxygen Flow Rate Vent Mode No Result Required. Vent Rate No Result Required. Mechanical Rate No Result Required. Pressure Support Vent No Result Required. Sodium Potassium Chloride Carbon Dioxide Anion Gap BUN Creatinine Creat Clearance w eGFR Random Glucose Lactic Acid Calcium Magnesium Total Bilirubin AST ALT Alkaline Phosphatase Creatine Kinase Creatine Kinase Index CK-MB (CK-2) Troponin I Total Protein Albumin Serum , Qual Negative 01/19/18 01/19/18 01:10 01:34 WBC RBC Hgb Hct MCV MCH MCHC RDW Plt Count MPV Absolute Neuts (auto) Neutrophils % Neutrophils % (Manual) Band Neutrophils % Lymphocytes % Lymphocytes % (Manual) Monocytes % Monocytes % (Manual) Eosinophils % Basophils % Nucleated RBC % Platelet Estimate Anticoagulation Therapy Puncture Site Right radial ABG pH 7.28 L ABG pCO2 at Pt Temp 40.1 D ABG pO2 at Pt Temp 154.0 H* ABG HCO3 18.1 L ABG O2 Sat (Measured) 99.5 H ABG O2 Content 14.6 L ABG Base Excess -7.7 L Sen Test Positive Carboxyhemoglobin Methemoglobin O2 Delivery Device Oxygen Flow Rate Yes Vent Mode Vent Rate Mechanical Rate Pressure Support Vent Sodium 141 Potassium 3.5 Chloride 113 H Carbon Dioxide 18 L Anion Gap 10 BUN 16 Creatinine 0.6 Creat Clearance w eGFR > 60 Random Glucose 181 H Lactic Acid Calcium 8.1 L Magnesium 1.9 Total Bilirubin 0.2 AST 206 H ALT 230 H Alkaline Phosphatase 380 H Creatine Kinase 327 H Creatine Kinase Index 4.2 CK-MB (CK-2) 13.84 H Troponin I < 0.02 Total Protein 6.6 Albumin 2.8 L Serum , Qual ASSESSMENT/PLAN: Acute Respiratory Distress due to possible Aspiration Pneumonitis R/O HCAP (?) Component of Pulmonary Vascular congestion Seizure D/O Spastic Cerebral Palsy ABX per ID O2 as needed Aspiration precautions Follow cultures Follow CXR HF NC O2 if there is an increase in WOB Minimize IVF Trial of Steroids BD TX ICU monitoring Dr Ruffin Critical care time spent in reviewing chart, evaluating patient and formulating plan - 36 minutes.
[2018-01-19] MEDS: TOPIRAMATE 200 MG TABLET (FP) GT SCH ×2 (14:00→22:06)
[2018-01-19] MEDS: predniSONE 20 MG TABLET (UD) PO SCH (14:30)
--- NOTE | 2018-01-19 15:46 | PN ---
Physical Exam: SUBJECTIVE: Patient seen and examined this am in ICU. Pt is nonverbal and noncommunicative. Was receiving Duoneb treatment this am. Here from [facility]. OBJECTIVE: Vital Signs Period Temp Pulse Resp BP Sys/Herman Pulse Ox Last 24 Hr 97.2 F-98.1 F 79-118 20-31 83-124/50-87 88-95 GENERAL: Nonverbal, Nonresponsive. EYES: Upward gazing. ENT: Ears normal, nares patent, oropharynx clear without exudates, moist mucous membranes.. LUNGS: Coarse breath sounds throughout. B/L rhonchi. HEART: RRR ABDOMEN: Soft, No HSM, ND EXTREMITIES: Contractures upper/Lower extremities NEUROLOGICAL: Cerebral palsy, M.R SKIN: Multiple Petechiae over extremities. Laboratory Results - last 24 hr 01/18/18 01/19/18 01/19/18 01:05 00:00 00:00 WBC RBC Hgb Hct MCV MCH MCHC RDW Plt Count MPV Absolute Neuts (auto) Neutrophils % Neutrophils % (Manual) Band Neutrophils % Lymphocytes % Lymphocytes % (Manual) Monocytes % Monocytes % (Manual) Eosinophils % Basophils % Nucleated RBC % Platelet Estimate Anisocytosis Macrocytosis Ovalocytes PT with INR INR PTT (Actin FS) Anticoagulation Therapy Puncture Site ABG pH ABG pCO2 at Pt Temp ABG pO2 at Pt Temp ABG HCO3 ABG O2 Sat (Measured) ABG O2 Content ABG Base Excess Sen Test Carboxyhemoglobin 1.9 Methemoglobin 1.4 O2 Delivery Device Oxygen Flow Rate Vent Mode Vent Rate Mechanical Rate PEEP Pressure Support Vent Sodium Cancelled Potassium Cancelled Chloride Cancelled Carbon Dioxide Cancelled Anion Gap Cancelled BUN Cancelled Creatinine Cancelled Creat Clearance w eGFR Cancelled Random Glucose Cancelled Lactic Acid 1.6 Calcium Cancelled Magnesium Cancelled Total Bilirubin Cancelled AST Cancelled ALT Cancelled Alkaline Phosphatase Cancelled Creatine Kinase Cancelled Creatine Kinase Index CK-MB (CK-2) Troponin I Cancelled Total Protein Cancelled Albumin Cancelled Serum , Qual Urine Color Urine Appearance Urine pH Ur Specific Nichols Urine Protein Urine Glucose (UA) Urine Ketones Urine Blood Urine Nitrite Urine Bilirubin Urine Urobilinogen Ur Leukocyte Esterase 01/19/18 01/19/18 01/19/18 00:26 01:00 01:10 WBC 8.9 RBC 3.11 L Hgb 10.3 L Hct 30.2 L MCV 97.1 H MCH 33.0 MCHC 34.0 RDW 16.8 H Plt Count 117 L D MPV 9.8 D Absolute Neuts (auto) 8.2 Neutrophils % 92.6 H D Neutrophils % (Manual) 80.0 Band Neutrophils % 6.0 Lymphocytes % 2.8 L D Lymphocytes % (Manual) 6.0 L Monocytes % 4.6 Monocytes % (Manual) 8 Eosinophils % 0.0 D Basophils % 0.0 Nucleated RBC % 0 Platelet Estimate Adequate Anisocytosis Macrocytosis Ovalocytes PT with INR INR PTT (Actin FS) Anticoagulation Therapy No Result Required. Puncture Site ABG pH ABG pCO2 at Pt Temp ABG pO2 at Pt Temp ABG HCO3 ABG O2 Sat (Measured) ABG O2 Content ABG Base Excess Sen Test Carboxyhemoglobin Methemoglobin O2 Delivery Device No Result Required. Oxygen Flow Rate Vent Mode No Result Required. Vent Rate No Result Required. Mechanical Rate No Result Required. PEEP Pressure Support Vent No Result Required. Sodium Potassium Chloride Carbon Dioxide Anion Gap BUN Creatinine Creat Clearance w eGFR Random Glucose Lactic Acid Calcium Magnesium Total Bilirubin AST ALT Alkaline Phosphatase Creatine Kinase Creatine Kinase Index CK-MB (CK-2) Troponin I Total Protein Albumin Serum , Qual Negative Urine Color Urine Appearance Urine pH Ur Specific Nichols Urine Protein Urine Glucose (UA) Urine Ketones Urine Blood Urine Nitrite Urine Bilirubin Urine Urobilinogen Ur Leukocyte Esterase 01/19/18 01/19/18 01/19/18 01:10 01:34 06:15 WBC RBC Hgb Hct MCV MCH MCHC RDW Plt Count MPV Absolute Neuts (auto) Neutrophils % Neutrophils % (Manual) Band Neutrophils % Lymphocytes % Lymphocytes % (Manual) Monocytes % Monocytes % (Manual) Eosinophils % Basophils % Nucleated RBC % Platelet Estimate Anisocytosis Macrocytosis Ovalocytes PT with INR INR PTT (Actin FS) Anticoagulation Therapy Puncture Site Right radial Right radial ABG pH 7.28 L 7.33 L ABG pCO2 at Pt Temp 40.1 D 36.7 ABG pO2 at Pt Temp 154.0 H* 72.3 L D ABG HCO3 18.1 L 18.8 L ABG O2 Sat (Measured) 99.5 H 95.1 ABG O2 Content 14.6 L 14.5 L ABG Base Excess -7.7 L -6.0 L Sen Test Positive Positive Carboxyhemoglobin Methemoglobin O2 Delivery Device Room air Oxygen Flow Rate Yes No Vent Mode Vent Rate Mechanical Rate PEEP 0.0 Pressure Support Vent Sodium 141 Potassium 3.5 Chloride 113 H Carbon Dioxide 18 L Anion Gap 10 BUN 16 Creatinine 0.6 Creat Clearance w eGFR > 60 Random Glucose 181 H Lactic Acid Calcium 8.1 L Magnesium 1.9 Total Bilirubin 0.2 AST 206 H ALT 230 H Alkaline Phosphatase 380 H Creatine Kinase 327 H Creatine Kinase Index 4.2 CK-MB (CK-2) 13.84 H Troponin I < 0.02 Total Protein 6.6 Albumin 2.8 L Serum , Qual Urine Color Urine Appearance Urine pH Ur Specific Nichols Urine Protein Urine Glucose (UA) Urine Ketones Urine Blood Urine Nitrite Urine Bilirubin Urine Urobilinogen Ur Leukocyte Esterase 01/19/18 01/19/18 01/19/18 06:15 06:50 06:50 WBC 7.5 RBC 2.14 L Hgb 7.1 L Hct 22.7 L D MCV 106.3 H D MCH 33.4 MCHC 31.4 L RDW 17.9 H Plt Count 71 L D MPV 9.5 Absolute Neuts (auto) 6.6 Neutrophils % 89.0 H Neutrophils % (Manual) Band Neutrophils % Lymphocytes % 6.4 L D Lymphocytes % (Manual) Monocytes % 4.5 Monocytes % (Manual) Eosinophils % 0.0 Basophils % 0.1 D Nucleated RBC % 0 Platelet Estimate Anisocytosis 1+ Macrocytosis 1+ Ovalocytes 1+ PT with INR 11.40 INR 1.01 PTT (Actin FS) 20.7 L D Anticoagulation Therapy Puncture Site ABG pH ABG pCO2 at Pt Temp ABG pO2 at Pt Temp ABG HCO3 ABG O2 Sat (Measured) ABG O2 Content ABG Base Excess Sen Test Carboxyhemoglobin 2.1 H Methemoglobin 1.5 O2 Delivery Device Oxygen Flow Rate Vent Mode Vent Rate Mechanical Rate PEEP Pressure Support Vent Sodium Potassium Chloride Carbon Dioxide Anion Gap BUN Creatinine Creat Clearance w eGFR Random Glucose Lactic Acid Calcium Magnesium Total Bilirubin AST ALT Alkaline Phosphatase Creatine Kinase Creatine Kinase Index CK-MB (CK-2) Troponin I Total Protein Albumin Serum , Qual Urine Color Urine Appearance Urine pH Ur Specific Nichols Urine Protein Urine Glucose (UA) Urine Ketones Urine Blood Urine Nitrite Urine Bilirubin Urine Urobilinogen Ur Leukocyte Esterase 01/19/18 01/19/18 01/19/18 06:50 06:50 06:50 WBC RBC Hgb Hct MCV MCH MCHC RDW Plt Count MPV Absolute Neuts (auto) Neutrophils % Neutrophils % (Manual) Band Neutrophils % Lymphocytes % Lymphocytes % (Manual) Monocytes % Monocytes % (Manual) Eosinophils % Basophils % Nucleated RBC % Platelet Estimate Anisocytosis Macrocytosis Ovalocytes PT with INR INR PTT (Actin FS) Anticoagulation Therapy Puncture Site ABG pH ABG pCO2 at Pt Temp ABG pO2 at Pt Temp ABG HCO3 ABG O2 Sat (Measured) ABG O2 Content ABG Base Excess Sen Test Carboxyhemoglobin Methemoglobin O2 Delivery Device Oxygen Flow Rate Vent Mode Vent Rate Mechanical Rate PEEP Pressure Support Vent Sodium Cancelled Potassium Cancelled Chloride Cancelled Carbon Dioxide Cancelled Anion Gap Cancelled BUN Cancelled Creatinine Cancelled Creat Clearance w eGFR Cancelled Random Glucose Cancelled Lactic Acid 1.4 Calcium Cancelled Magnesium Total Bilirubin Cancelled AST Cancelled ALT Cancelled Alkaline Phosphatase Cancelled Creatine Kinase Creatine Kinase Index CK-MB (CK-2) Troponin I Total Protein Cancelled Albumin Cancelled Serum , Qual Urine Color Ltyellow Urine Appearance Clear Urine pH 6.0 Ur Specific Nichols 1.013 Urine Protein Negative Urine Glucose (UA) Negative Urine Ketones Negative Urine Blood Negative Urine Nitrite Negative Urine Bilirubin Negative Urine Urobilinogen Negative Ur Leukocyte Esterase Negative 01/19/18 01/19/18 08:30 12:35 WBC 6.8 RBC 2.73 L Hgb 8.9 L Hct 26.6 L D MCV 97.4 H D MCH 32.4 MCHC 33.3 RDW 17.2 H Plt Count 106 L D MPV 9.4 Absolute Neuts (auto) 5.0 Neutrophils % 74.0 Neutrophils % (Manual) Band Neutrophils % Lymphocytes % 17.7 D Lymphocytes % (Manual) Monocytes % 8.1 Monocytes % (Manual) Eosinophils % 0.0 Basophils % 0.2 Nucleated RBC % 0 Platelet Estimate Anisocytosis Macrocytosis Ovalocytes PT with INR INR PTT (Actin FS) Anticoagulation Therapy Puncture Site ABG pH ABG pCO2 at Pt Temp ABG pO2 at Pt Temp ABG HCO3 ABG O2 Sat (Measured) ABG O2 Content ABG Base Excess Sen Test Carboxyhemoglobin Methemoglobin O2 Delivery Device Oxygen Flow Rate Vent Mode Vent Rate Mechanical Rate PEEP Pressure Support Vent Sodium 140 Potassium 3.6 Chloride 111 H Carbon Dioxide 22 Anion Gap 7 L BUN 12 Creatinine 0.5 L Creat Clearance w eGFR > 60 Random Glucose 89 Lactic Acid Calcium 8.4 L Magnesium Total Bilirubin 0.3 AST 132 H ALT 212 H Alkaline Phosphatase 340 H D Creatine Kinase Creatine Kinase Index CK-MB (CK-2) Troponin I Total Protein 6.7 Albumin 2.9 L Serum , Qual Urine Color Urine Appearance Urine pH Ur Specific Nichols Urine Protein Urine Glucose (UA) Urine Ketones Urine Blood Urine Nitrite Urine Bilirubin Urine Urobilinogen Ur Leukocyte Esterase Active Medications Generic Name Dose Route Start Last Admin Trade Name Freq PRN Reason Stop Dose Admin Albuterol/Ipratropium 1 amp 01/19/18 05:39 01/19/18 08:32 Duoneb - NEB 1 amp Q4H PRN Administration respiratory distress Baclofen 5 mg 01/19/18 06:00 01/19/18 06:30 Lioresal - GT 5 mg TID HARIS Administration Chlorhexidine Gluconate 1 applic 01/19/18 22:00 Hibiclens For Decolonization - TP HS HARIS Heparin Sodium (Porcine) 5,000 unit 01/19/18 06:00 01/19/18 14:32 Heparin - SQ 5,000 unit TID HARIS Administration Piperacillin Sod/Tazobactam 50 mls @ 100 mls/hr 01/19/18 18:00 Sod 3.375 gm/ Dextrose IVPB Q8H-IV HARIS Protocol Sodium Chloride 1,000 mls @ 50 mls/hr 01/19/18 12:42 01/19/18 14:31 Normal Saline - IV 50 mls/hr ASDIR HARIS Administration Lactulose 10 gm 01/19/18 07:00 01/19/18 14:31 Cephulac (Oral Use) GT 10 gm TID HARIS Administration Levetiracetam 1,500 mg 01/19/18 10:00 01/19/18 10:49 Keppra Oral Solution - GT 1,500 mg BID HARIS Administration Mupirocin 1 applic 01/19/18 10:00 01/19/18 10:48 Bactroban Ointment (For Decolonization) - NS 01/24/18 09:59 1 applic BID AHRIS Administration Oxcarbazepine 210 mg 01/19/18 22:00 Trileptal GT HS HARIS Prednisone 40 mg 01/19/18 12:45 01/19/18 14:30 Deltasone - PO 40 mg DAILY HARIS Administration Scopolamine HBr 1 patch 01/19/18 10:00 01/19/18 10:55 Transderm-Scop - TD 1 patch Q72H HARIS Administration Senna 1 tab 01/19/18 10:00 01/19/18 10:57 Senna - PO 1 tab BID HARIS Administration Topiramate 200 mg 01/19/18 10:00 Topamax - GT BID HARIS ASSESSMENT/PLAN: 27 y/o female w/ pmh of GERD, cerebral palsy, congenital quadriplegia, spastic quadriparesis, cerebral palsy, severe MR, non verbal and non communicative at baseline, seizure d/o, recurrent pneumonia from [facility] came to [facility] ED due to respirtory distress. At [facility], patient had audible coarse, labored breathing and cough that was productive of light-yellow colored sputum. Patient was saturating 88% on 2L nasal cannula, and had chills. Neuro: Seizure D/O Oxcarbazepine 210 mg GT Topiramate 200 mg GT BID Levetiracetam 1,500 mg GT BID Pulm: Aspiration Pneumonia vs, Aspiration Pneumonitis? I.D on board Vanco 1 gm- d/c'ed Piperacillin Sod/Tazobactam 50 mls @ 100 mls/hr IVPB Q8H Chest X-Ray 01/19: Progressive infiltrative and congestive changes. Duoneb 1 amp NEB Q4H PRN for Respiratory Distress Awaiting c/s Aspiration precautions FEN Normal Saline 50 mls/Hr Monitor Electrolytes Tube Feed Jevity DVT ppx: Heparin 5,000 U SQ TID Dispo: Continue to monitor in icu. Visit type - Emergency Visit Emergency Visit: Yes ED Registration Date: 01/19/18 Care time: The patient presented to the Emergency Department on the above date and was hospitalized for further evaluation of their emergent condition. - New Patient This patient is new to me today: Yes Date on this admission: 01/19/18 - Critical Care Critical Care patient: Yes Total Critical Care Time (in minutes): 35 Critical Care Statement: The care of this patient involved high complexity decision making to prevent further life threatening deterioration of the patient 's condition and/or to evaluate & treat vital organ system(s) failure or risk of failure.
[2018-01-19] MEDS ORDERED: PIPERACILLIN/TAZOBACTAM 3.375 GM VIAL IVPB ONE (17:59)
[2018-01-19] MEDS ORDERED: DEXTROSE 5%-WATER - 50 ML IVPB ONE (18:00)
[2018-01-19] MEDS: PIPERACILLIN/TAZOB 3.375 GM 3.375 GM in DEXTROSE 5%-WATER - 50 ML IVPB SCH (18:05)
--- NOTE | 2018-01-19 18:20 | PN ---
Physical Exam: SUBJECTIVE: Patient seen and examined OBJECTIVE: Vital Signs Period Temp Pulse Resp BP Sys/Herman Pulse Ox Last 24 Hr 97.2 F-98.1 F 73-118 20-31 83-124/50-87 88-95 GENERAL: The patient is awake, alert, and fully oriented, in no acute distress. HEAD: Normal with no signs of trauma. EYES: PERRL, extraocular movements intact, sclera anicteric, conjunctiva clear. No ptosis. ENT: Ears normal, nares patent, oropharynx clear without exudates, moist mucous membranes. NECK: Trachea midline, full range of motion, supple. LUNGS: Breath sounds equal, clear to auscultation bilaterally, no wheezes, no crackles, no accessory muscle use. HEART: Regular rate and rhythm, S1, S2 without murmur, rub or gallop. ABDOMEN: Soft, nontender, nondistended, normoactive bowel sounds, no guarding, no rebound, no hepatosplenomegaly, no masses. EXTREMITIES: 2+ pulses, warm, well-perfused, no edema. NEUROLOGICAL: Cranial nerves II through XII grossly intact. Normal speech, gait not observed. PSYCH: Normal mood, normal affect. SKIN: Warm, dry, normal turgor, no rashes or lesions noted Laboratory Results - last 24 hr 01/18/18 01/19/18 01/19/18 01:05 00:00 00:00 WBC RBC Hgb Hct MCV MCH MCHC RDW Plt Count MPV Absolute Neuts (auto) Neutrophils % Neutrophils % (Manual) Band Neutrophils % Lymphocytes % Lymphocytes % (Manual) Monocytes % Monocytes % (Manual) Eosinophils % Basophils % Nucleated RBC % Platelet Estimate Anisocytosis Macrocytosis Ovalocytes PT with INR INR PTT (Actin FS) Anticoagulation Therapy Puncture Site ABG pH ABG pCO2 at Pt Temp ABG pO2 at Pt Temp ABG HCO3 ABG O2 Sat (Measured) ABG O2 Content ABG Base Excess Sen Test Carboxyhemoglobin 1.9 Methemoglobin 1.4 O2 Delivery Device Oxygen Flow Rate Vent Mode Vent Rate Mechanical Rate PEEP Pressure Support Vent Sodium Cancelled Potassium Cancelled Chloride Cancelled Carbon Dioxide Cancelled Anion Gap Cancelled BUN Cancelled Creatinine Cancelled Creat Clearance w eGFR Cancelled Random Glucose Cancelled Lactic Acid 1.6 Calcium Cancelled Magnesium Cancelled Total Bilirubin Cancelled AST Cancelled ALT Cancelled Alkaline Phosphatase Cancelled Creatine Kinase Cancelled Creatine Kinase Index CK-MB (CK-2) Troponin I Cancelled Total Protein Cancelled Albumin Cancelled Serum , Qual Urine Color Urine Appearance Urine pH Ur Specific [place] Urine Protein Urine Glucose (UA) Urine Ketones Urine Blood Urine Nitrite Urine Bilirubin Urine Urobilinogen Ur Leukocyte Esterase 01/19/18 01/19/18 01/19/18 00:26 01:00 01:10 WBC 8.9 RBC 3.11 L Hgb 10.3 L Hct 30.2 L MCV 97.1 H MCH 33.0 MCHC 34.0 RDW 16.8 H Plt Count 117 L D MPV 9.8 D Absolute Neuts (auto) 8.2 Neutrophils % 92.6 H D Neutrophils % (Manual) 80.0 Band Neutrophils % 6.0 Lymphocytes % 2.8 L D Lymphocytes % (Manual) 6.0 L Monocytes % 4.6 Monocytes % (Manual) 8 Eosinophils % 0.0 D Basophils % 0.0 Nucleated RBC % 0 Platelet Estimate Adequate Anisocytosis Macrocytosis Ovalocytes PT with INR INR PTT (Actin FS) Anticoagulation Therapy No Result Required. Puncture Site ABG pH ABG pCO2 at Pt Temp ABG pO2 at Pt Temp ABG HCO3 ABG O2 Sat (Measured) ABG O2 Content ABG Base Excess Sen Test Carboxyhemoglobin Methemoglobin O2 Delivery Device No Result Required. Oxygen Flow Rate Vent Mode No Result Required. Vent Rate No Result Required. Mechanical Rate No Result Required. PEEP Pressure Support Vent No Result Required. Sodium Potassium Chloride Carbon Dioxide Anion Gap BUN Creatinine Creat Clearance w eGFR Random Glucose Lactic Acid Calcium Magnesium Total Bilirubin AST ALT Alkaline Phosphatase Creatine Kinase Creatine Kinase Index CK-MB (CK-2) Troponin I Total Protein Albumin Serum , Qual Negative Urine Color Urine Appearance Urine pH Ur Specific [place] Urine Protein Urine Glucose (UA) Urine Ketones Urine Blood Urine Nitrite Urine Bilirubin Urine Urobilinogen Ur Leukocyte Esterase 01/19/18 01/19/18 01/19/18 01:10 01:34 06:15 WBC RBC Hgb Hct MCV MCH MCHC RDW Plt Count MPV Absolute Neuts (auto) Neutrophils % Neutrophils % (Manual) Band Neutrophils % Lymphocytes % Lymphocytes % (Manual) Monocytes % Monocytes % (Manual) Eosinophils % Basophils % Nucleated RBC % Platelet Estimate Anisocytosis Macrocytosis Ovalocytes PT with INR INR PTT (Actin FS) Anticoagulation Therapy Puncture Site Right radial Right radial ABG pH 7.28 L 7.33 L ABG pCO2 at Pt Temp 40.1 D 36.7 ABG pO2 at Pt Temp 154.0 H* 72.3 L D ABG HCO3 18.1 L 18.8 L ABG O2 Sat (Measured) 99.5 H 95.1 ABG O2 Content 14.6 L 14.5 L ABG Base Excess -7.7 L -6.0 L Sen Test Positive Positive Carboxyhemoglobin Methemoglobin O2 Delivery Device Room air Oxygen Flow Rate Yes No Vent Mode Vent Rate Mechanical Rate PEEP 0.0 Pressure Support Vent Sodium 141 Potassium 3.5 Chloride 113 H Carbon Dioxide 18 L Anion Gap 10 BUN 16 Creatinine 0.6 Creat Clearance w eGFR > 60 Random Glucose 181 H Lactic Acid Calcium 8.1 L Magnesium 1.9 Total Bilirubin 0.2 AST 206 H ALT 230 H Alkaline Phosphatase 380 H Creatine Kinase 327 H Creatine Kinase Index 4.2 CK-MB (CK-2) 13.84 H Troponin I < 0.02 Total Protein 6.6 Albumin 2.8 L Serum , Qual Urine Color Urine Appearance Urine pH Ur Specific [place] Urine Protein Urine Glucose (UA) Urine Ketones Urine Blood Urine Nitrite Urine Bilirubin Urine Urobilinogen Ur Leukocyte Esterase 01/19/18 01/19/18 01/19/18 06:15 06:50 06:50 WBC 7.5 RBC 2.14 L Hgb 7.1 L Hct 22.7 L D MCV 106.3 H D MCH 33.4 MCHC 31.4 L RDW 17.9 H Plt Count 71 L D MPV 9.5 Absolute Neuts (auto) 6.6 Neutrophils % 89.0 H Neutrophils % (Manual) Band Neutrophils % Lymphocytes % 6.4 L D Lymphocytes % (Manual) Monocytes % 4.5 Monocytes % (Manual) Eosinophils % 0.0 Basophils % 0.1 D Nucleated RBC % 0 Platelet Estimate Anisocytosis 1+ Macrocytosis 1+ Ovalocytes 1+ PT with INR 11.40 INR 1.01 PTT (Actin FS) 20.7 L D Anticoagulation Therapy Puncture Site ABG pH ABG pCO2 at Pt Temp ABG pO2 at Pt Temp ABG HCO3 ABG O2 Sat (Measured) ABG O2 Content ABG Base Excess Sen Test Carboxyhemoglobin 2.1 H Methemoglobin 1.5 O2 Delivery Device Oxygen Flow Rate Vent Mode Vent Rate Mechanical Rate PEEP Pressure Support Vent Sodium Potassium Chloride Carbon Dioxide Anion Gap BUN Creatinine Creat Clearance w eGFR Random Glucose Lactic Acid Calcium Magnesium Total Bilirubin AST ALT Alkaline Phosphatase Creatine Kinase Creatine Kinase Index CK-MB (CK-2) Troponin I Total Protein Albumin Serum , Qual Urine Color Urine Appearance Urine pH Ur Specific [place] Urine Protein Urine Glucose (UA) Urine Ketones Urine Blood Urine Nitrite Urine Bilirubin Urine Urobilinogen Ur Leukocyte Esterase 01/19/18 01/19/18 01/19/18 06:50 06:50 06:50 WBC RBC Hgb Hct MCV MCH MCHC RDW Plt Count MPV Absolute Neuts (auto) Neutrophils % Neutrophils % (Manual) Band Neutrophils % Lymphocytes % Lymphocytes % (Manual) Monocytes % Monocytes % (Manual) Eosinophils % Basophils % Nucleated RBC % Platelet Estimate Anisocytosis Macrocytosis Ovalocytes PT with INR INR PTT (Actin FS) Anticoagulation Therapy Puncture Site ABG pH ABG pCO2 at Pt Temp ABG pO2 at Pt Temp ABG HCO3 ABG O2 Sat (Measured) ABG O2 Content ABG Base Excess Sen Test Carboxyhemoglobin Methemoglobin O2 Delivery Device Oxygen Flow Rate Vent Mode Vent Rate Mechanical Rate PEEP Pressure Support Vent Sodium Cancelled Potassium Cancelled Chloride Cancelled Carbon Dioxide Cancelled Anion Gap Cancelled BUN Cancelled Creatinine Cancelled Creat Clearance w eGFR Cancelled Random Glucose Cancelled Lactic Acid 1.4 Calcium Cancelled Magnesium Total Bilirubin Cancelled AST Cancelled ALT Cancelled Alkaline Phosphatase Cancelled Creatine Kinase Creatine Kinase Index CK-MB (CK-2) Troponin I Total Protein Cancelled Albumin Cancelled Serum , Qual Urine Color Ltyellow Urine Appearance Clear Urine pH 6.0 Ur Specific [place] 1.013 Urine Protein Negative Urine Glucose (UA) Negative Urine Ketones Negative Urine Blood Negative Urine Nitrite Negative Urine Bilirubin Negative Urine Urobilinogen Negative Ur Leukocyte Esterase Negative 01/19/18 01/19/18 08:30 12:35 WBC 6.8 RBC 2.73 L Hgb 8.9 L Hct 26.6 L D MCV 97.4 H D MCH 32.4 MCHC 33.3 RDW 17.2 H Plt Count 106 L D MPV 9.4 Absolute Neuts (auto) 5.0 Neutrophils % 74.0 Neutrophils % (Manual) Band Neutrophils % Lymphocytes % 17.7 D Lymphocytes % (Manual) Monocytes % 8.1 Monocytes % (Manual) Eosinophils % 0.0 Basophils % 0.2 Nucleated RBC % 0 Platelet Estimate Anisocytosis Macrocytosis Ovalocytes PT with INR INR PTT (Actin FS) Anticoagulation Therapy Puncture Site ABG pH ABG pCO2 at Pt Temp ABG pO2 at Pt Temp ABG HCO3 ABG O2 Sat (Measured) ABG O2 Content ABG Base Excess Sen Test Carboxyhemoglobin Methemoglobin O2 Delivery Device Oxygen Flow Rate Vent Mode Vent Rate Mechanical Rate PEEP Pressure Support Vent Sodium 140 Potassium 3.6 Chloride 111 H Carbon Dioxide 22 Anion Gap 7 L BUN 12 Creatinine 0.5 L Creat Clearance w eGFR > 60 Random Glucose 89 Lactic Acid Calcium 8.4 L Magnesium Total Bilirubin 0.3 AST 132 H ALT 212 H Alkaline Phosphatase 340 H D Creatine Kinase Creatine Kinase Index CK-MB (CK-2) Troponin I Total Protein 6.7 Albumin 2.9 L Serum , Qual Urine Color Urine Appearance Urine pH Ur Specific [place] Urine Protein Urine Glucose (UA) Urine Ketones Urine Blood Urine Nitrite Urine Bilirubin Urine Urobilinogen Ur Leukocyte Esterase Active Medications Generic Name Dose Route Start Last Admin Trade Name Freq PRN Reason Stop Dose Admin Albuterol/Ipratropium 1 amp 01/19/18 05:39 01/19/18 08:32 Duoneb - NEB 1 amp Q4H PRN Administration respiratory distress Baclofen 5 mg 01/19/18 06:00 01/19/18 18:03 Lioresal - GT Not Given TID [facility]IS Chlorhexidine Gluconate 1 applic 01/19/18 22:00 Hibiclens For Decolonization - TP HS [facility]IS Heparin Sodium (Porcine) 5,000 unit 01/19/18 06:00 01/19/18 14:32 Heparin - SQ 5,000 unit TID [facility] Administration Piperacillin Sod/Tazobactam 50 mls @ 100 mls/hr 01/19/18 18:00 01/19/18 18:05 Sod 3.375 gm/ Dextrose IVPB 100 mls/hr Q8H-IV [facility] Administration Protocol Sodium Chloride 1,000 mls @ 50 mls/hr 01/19/18 12:42 01/19/18 14:31 Normal Saline - IV 50 mls/hr ASDIR [facility] Administration Lactulose 10 gm 01/19/18 07:00 01/19/18 14:31 Cephulac (Oral Use) GT 10 gm TID [facility] Administration Levetiracetam 1,500 mg 01/19/18 10:00 01/19/18 10:49 Keppra Oral Solution - GT 1,500 mg BID [facility] Administration Mupirocin 1 applic 01/19/18 10:00 01/19/18 10:48 Bactroban Ointment (For Decolonization) - NS 01/24/18 09:59 1 applic BID [facility] Administration Oxcarbazepine 210 mg 01/19/18 22:00 Trileptal GT HS [facility]IS Prednisone 40 mg 01/19/18 12:45 01/19/18 14:30 Deltasone - PO 40 mg DAILY [facility] Administration Scopolamine HBr 1 patch 01/19/18 10:00 01/19/18 10:55 Transderm-Scop - TD 1 patch Q72H [facility] Administration Senna 1 tab 01/19/18 10:00 01/19/18 10:57 Senna - PO 1 tab BID [facility] Administration Topiramate 200 mg 01/19/18 10:00 01/19/18 14:00 Topamax - GT 200 mg BID [facility] Administration ASSESSMENT/PLAN:
[2018-01-19] MEDS: CHLORHEXIDINE GLUCONATE 4% CLEANSER FOR DECOLONIZATION TP SCH (22:05)
[2018-01-19] MEDS: OXcarbazepine 300 MG/5 ML 250 ML BULK BOTTLE GT SCH (22:33)
[2018-01-20] MEDS ORDERED: PIPERACILLIN/TAZOBACTAM 3.375 GM VIAL IVPB ONE ×2 (00:34→10:27)
[2018-01-20] MEDS ORDERED: DEXTROSE 5%-WATER - 50 ML IVPB ONE ×2 (00:34→10:27)
[2018-01-20] MEDS: PIPERACILLIN/TAZOB 3.375 GM 3.375 GM in DEXTROSE 5%-WATER - 50 ML IVPB SCH ×2 (01:05→10:29)
[2018-01-20] MEDS: LACTULOSE 20 GM/30 ML UDC (FOR ORAL USE ONLY) GT SCH ×4 (05:33→21:59)
[2018-01-20] MEDS: HEPARIN NA (PORCINE) 5,000 UNITS/ML 1ML VIAL SQ SCH ×3 (05:33→21:59)
[2018-01-20] MEDS: BACLOFEN 10 MG TABLET (FP) GT SCH ×3 (05:34→22:00)
[2018-01-20] MEDS ORDERED: PT OWN MED DRAWER 7, Y5N ONE ×3 (05:36→21:21)
[2018-01-20 07:31] LABS: HEMATOCRIT 26.7 % (32.4-45.2); HEMOGLOBIN 8.9 GM/dL (10.7-15.3); MCH 33.2 pg (25.7-33.7); MCHC 33.4 g/dl (32.0-36.0); MEAN CELL VOLUME 99.3 fl (80-96); MEAN PLT VOLUME 9.8 fl (7.5-11.1); PLATELET COUNT 106 K/MM3 (134-434); RBC 2.69 M/mm3 (3.60-5.2); RDW 17.4 % (11.6-15.6); WHITE BLOOD COUNT 3.6 K/mm3 (4.0-10.0)
[2018-01-20 08:19] LABS: ALBUMIN 2.8 g/dl (3.4-5.0); ANION GAP 9 (8-16); BLOOD UREA NITROGEN 9 mg/dL (7-18); CALCIUM 8.7 mg/dL (8.5-10.1); CHLORIDE 118 mmol/L (98-107); CO2 21 mmol/L (21-32); GLUCOSE,RANDOM 119 mg/dL (74-106); MAGNESIUM 2.3 mg/dL (1.8-2.4); POTASSIUM 4.5 mmol/L (3.5-5.1); SODIUM 148 mmol/L (136-145)
[2018-01-20 08:31] LABS: ALK PHOS 365 U/L (45-117); BILIRUBIN,TOTAL 0.3 mg/dL (0.2-1.0); CREATININE 0.5 mg/dL (0.55-1.02); SGOT/AST 267 U/L (15-37); SGPT/ALT 344 U/L (12-78); TOT PROT 6.4 g/dl (6.4-8.2)
--- NOTE | 2018-01-20 09:26 | PN ---
Progress Note (short form) - Note Progress Note: Awake on nasal canulla Vital Signs Period Temp Pulse Resp BP Sys/Herman Pulse Ox Last 24 Hr 97.2 F-98.6 F 42-95 22-31 109-140/60-87 95-97 cor-rrr lungs decreased bs at bases bilateral rhonchi abd soft,nt +gt ext no edema CBC, BMP 01/20/18 06:30 01/20/18 06:30
--- NOTE | 2018-01-20 09:33 | PN ---
Progress Note (short form) - Note Progress Note: Awake on nasal canulla Vital Signs Period Temp Pulse Resp BP Sys/Herman Pulse Ox Last 24 Hr 97.2 F-98.6 F 42-95 22-31 109-140/60-87 95-97 clear sputum being suctioned cor-rrr lungs decreased bs at bases bilateral rhonchi abd soft,nt +gt ext no edema CBC, BMP 01/20/18 06:30 01/20/18 06:30 Microbiology 01/19/18 00:25 Blood - Peripheral Venous Blood Culture - Preliminary NO GROWTH OBTAINED AFTER 24 HOURS, INCUBATION TO CONTINUE FOR 4 DAYS. 01/19/18 10:00 Sputum - Endotracheal Suction W/O Vent Gram Stain - Final cxray-minimally improved Current Medications Albuterol/Ipratropium (Duoneb -) 1 amp NEB Q4H PRN PRN Reason: respiratory distress Last Admin: 01/19/18 08:32 Dose: 1 amp Baclofen (Lioresal -) 5 mg GT TID [facility] Last Admin: 01/20/18 05:34 Dose: 5 mg Chlorhexidine Gluconate (Hibiclens For Decolonization -) 1 applic TP HS [facility] Last Admin: 01/19/18 22:05 Dose: 1 applic Heparin Sodium (Porcine) (Heparin -) 5,000 unit SQ TID HARIS Last Admin: 01/20/18 05:33 Dose: 5,000 unit Piperacillin Sod/Tazobactam (Sod 3.375 gm/ Dextrose) 50 mls @ 100 mls/hr IVPB Q8H-IV HARIS; Protocol Last Admin: 01/20/18 01:05 Dose: 100 mls/hr Lactulose (Cephulac (Oral Use)) 10 gm GT TID [facility] Last Admin: 01/20/18 05:51 Dose: Not Given Levetiracetam (Keppra Oral Solution -) 1,500 mg GT BID [facility] Last Admin: 01/19/18 22:05 Dose: 1,500 mg Mupirocin (Bactroban Ointment (For Decolonization) -) 1 applic NS BID [facility]IS Stop: 01/24/18 09:59 Last Admin: 01/19/18 22:06 Dose: 1 applic Oxcarbazepine (Trileptal) 210 mg GT HS [facility] Last Admin: 01/19/18 22:33 Dose: 210 mg Prednisone (Deltasone -) 40 mg PO DAILY [facility] Last Admin: 01/19/18 14:30 Dose: 40 mg Scopolamine HBr (Transderm-Scop -) 1 patch TD Q72H [facility] Last Admin: 01/19/18 10:55 Dose: 1 patch Senna (Senna -) 1 tab PO BID [facility] Last Admin: 01/19/18 22:06 Dose: 1 tab Topiramate (Topamax -) 200 mg GT BID [facility] Last Admin: 01/19/18 22:06 Dose: 200 mg a/p pneumonia-please check legionella antigen, continue zosyn- ?aspiration, being suctioned for clear secretions, check rsv respiratory status and oxygenation improved BP improved abnl LFTS- ?secondary to hypotension would consider imaging, hepatitis serology
[2018-01-20] MEDS: predniSONE 20 MG TABLET (UD) PO SCH (10:29)
[2018-01-20] MEDS: SENNOSIDES 8.6MG TABLET (FP) PO SCH ×2 (10:29→22:00)
[2018-01-20] MEDS: MUPIROCIN 2% TOPICAL OINTMENT FOR DECOLONIZATION NS SCH ×2 (10:30→21:59)
[2018-01-20] MEDS: levETIRAcetam 500 MG/5 ML ORAL SOLUTION (UNIT-DOSE CUPS) GT SCH ×2 (10:30→22:00)
[2018-01-20] MEDS: TOPIRAMATE 200 MG TABLET (FP) GT SCH ×2 (10:31→22:00)
--- NOTE | 2018-01-20 11:48 | PN ---
Teaching Attending Note Name of Resident: Madhu Sweet ATTENDING PHYSICIAN STATEMENT I saw and evaluated the patient. I reviewed the resident's note and discussed the case with the resident. I agree with the resident's findings and plan as documented. SUBJECTIVE: Patient seen and examined in the ICU. Awake. Non-verbal. Less tachypneic today. NAD on NC O2. Noted episodes of bradycardia overnight, but hemodynamics remained stable. No pressors. CXR: improving bilateral infiltrates Intake & Output 01/17/18 01/18/18 01/19/18 01/20/18 23:59 23:59 23:59 23:59 Intake Total 1340 946 Balance 1340 946 Weight 100 lb 110 lb 111 lb 11.2 oz Last Vital Signs Temp Pulse Resp BP Pulse Ox 98.2 F 42 L 23 140/86 95 01/20/18 06:00 01/20/18 06:00 01/20/18 06:00 01/20/18 06:00 01/19/18 21:00 Active Medications Albuterol/Ipratropium (Duoneb -) 1 amp NEB Q4H PRN PRN Reason: respiratory distress Last Admin: 01/19/18 08:32 Dose: 1 amp Baclofen (Lioresal -) 5 mg GT TID [facility] Last Admin: 01/20/18 05:34 Dose: 5 mg Chlorhexidine Gluconate (Hibiclens For Decolonization -) 1 applic TP HS [facility] Last Admin: 01/19/18 22:05 Dose: 1 applic Heparin Sodium (Porcine) (Heparin -) 5,000 unit SQ TID [facility] Last Admin: 01/20/18 05:33 Dose: 5,000 unit Piperacillin Sod/Tazobactam (Sod 3.375 gm/ Dextrose) 50 mls @ 100 mls/hr IVPB Q8H-IV [facility]; Protocol Last Admin: 01/20/18 10:29 Dose: 100 mls/hr Lactulose (Cephulac (Oral Use)) 10 gm GT TID [facility] Last Admin: 01/20/18 05:51 Dose: Not Given Levetiracetam (Keppra Oral Solution -) 1,500 mg GT BID [facility] Last Admin: 01/20/18 10:30 Dose: 1,500 mg Mupirocin (Bactroban Ointment (For Decolonization) -) 1 applic NS BID [facility] Stop: 01/24/18 09:59 Last Admin: 01/20/18 10:30 Dose: 1 applic Oxcarbazepine (Trileptal) 210 mg GT HS [facility] Last Admin: 01/19/18 22:33 Dose: 210 mg Prednisone (Deltasone -) 40 mg PO DAILY [facility] Last Admin: 01/20/18 10:29 Dose: 40 mg Scopolamine HBr (Transderm-Scop -) 1 patch TD Q72H [facility] Last Admin: 01/19/18 10:55 Dose: 1 patch Senna (Senna -) 1 tab PO BID [facility] Last Admin: 01/20/18 10:29 Dose: 1 tab Topiramate (Topamax -) 200 mg GT BID [facility] Last Admin: 01/20/18 10:31 Dose: 200 mg GENERAL: Awake, non-verbal, no respiratory distress. HEAD: Normal with no signs of trauma. EYES: Pupils equal, round and reactive to light, conjunctiva clear. EARS, NOSE, THROAT: Oropharynx with copious secretions LUNGS: Bilateral coarse breath sounds, no wheezing HEART: Regular rate and rhythm, normal S1 and S2. ABDOMEN: Soft, not distended. PEG tube in place, nonerythematous skin surrounding PEG tube site. EXTREMITIES: 2+ pulses, warm. No peripheral edema. Laboratory Results - last 24 hr 01/19/18 01/19/18 01/20/18 06:50 12:35 06:30 WBC 6.8 3.6 L RBC 2.73 L 2.69 L Hgb 8.9 L 8.9 L Hct 26.6 L D 26.7 L MCV 97.4 H D 99.3 H MCH 32.4 33.2 MCHC 33.3 33.4 RDW 17.2 H 17.4 H Plt Count 106 L D 106 L MPV 9.4 9.8 Absolute Neuts (auto) 5.0 Neutrophils % 74.0 Lymphocytes % 17.7 D Monocytes % 8.1 Eosinophils % 0.0 Basophils % 0.2 Nucleated RBC % 0 Anisocytosis 1+ Macrocytosis 1+ Ovalocytes 1+ Sodium Potassium Chloride Carbon Dioxide Anion Gap BUN Creatinine Creat Clearance w eGFR Random Glucose Calcium Magnesium Total Bilirubin AST ALT Alkaline Phosphatase Total Protein Albumin TSH 01/20/18 01/20/18 06:30 06:30 WBC RBC Hgb Hct MCV MCH MCHC RDW Plt Count MPV Absolute Neuts (auto) Neutrophils % Lymphocytes % Monocytes % Eosinophils % Basophils % Nucleated RBC % Anisocytosis Macrocytosis Ovalocytes Sodium 148 H Potassium 4.5 Chloride 118 H Carbon Dioxide 21 Anion Gap 9 BUN 9 Creatinine 0.5 L Creat Clearance w eGFR > 60 Random Glucose 119 H Calcium 8.7 Magnesium 2.3 Total Bilirubin 0.3 AST 267 H ALT 344 H Alkaline Phosphatase 365 H D Total Protein 6.4 Albumin 2.8 L TSH 0.92 Cancelled ASSESSMENT/PLAN: Acute Respiratory Distress due to possible Aspiration Pneumonitis R/O HCAP (?) Component of Pulmonary Vascular congestion Seizure D/O Spastic Cerebral Palsy Bradycardia: (?) due to autonomic dysfunction +/- medication effect Check Ab US ABX per ID O2 as needed Aspiration precautions Follow final cultures Follow CXR Minimize IVF Steroids BD TX Cardiac Telemetry monitoring Dr Ruffin Critical care time spent in reviewing chart, evaluating patient and formulating plan - 36 minutes.
--- NOTE | 2018-01-20 12:38 | PN ---
Physical Exam: SUBJECTIVE: Patient seen and examined at bedside. Bradycardic. Zoll pads on. OBJECTIVE: Vital Signs Period Temp Pulse Resp BP Sys/Herman Pulse Ox Last 24 Hr 97.8 F-98.6 F 40-80 20-30 109-143/64-86 95-98 GENERAL: The patient is sleeping, arousable. Non verbal at baseline. LUNGS: Anterior wheezing and rhonchi HEART: Regular rate and rhythm, S1, S2 ABDOMEN: Soft, nontender, nondistended; feeding tube, surrounding skin intact EXTREMITIES: 2+ pulses, warm, well-perfused, no edema. Laboratory Results - last 24 hr 01/19/18 01/20/18 01/20/18 12:35 06:30 06:30 WBC 6.8 3.6 L RBC 2.73 L 2.69 L Hgb 8.9 L 8.9 L Hct 26.6 L D 26.7 L MCV 97.4 H D 99.3 H MCH 32.4 33.2 MCHC 33.3 33.4 RDW 17.2 H 17.4 H Plt Count 106 L D 106 L MPV 9.4 9.8 Absolute Neuts (auto) 5.0 Neutrophils % 74.0 Lymphocytes % 17.7 D Monocytes % 8.1 Eosinophils % 0.0 Basophils % 0.2 Nucleated RBC % 0 Sodium 148 H Potassium 4.5 Chloride 118 H Carbon Dioxide 21 Anion Gap 9 BUN 9 Creatinine 0.5 L Creat Clearance w eGFR > 60 Random Glucose 119 H Calcium 8.7 Magnesium 2.3 Total Bilirubin 0.3 AST 267 H ALT 344 H Alkaline Phosphatase 365 H D Total Protein 6.4 Albumin 2.8 L TSH 0.92 01/20/18 06:30 WBC RBC Hgb Hct MCV MCH MCHC RDW Plt Count MPV Absolute Neuts (auto) Neutrophils % Lymphocytes % Monocytes % Eosinophils % Basophils % Nucleated RBC % Sodium Potassium Chloride Carbon Dioxide Anion Gap BUN Creatinine Creat Clearance w eGFR Random Glucose Calcium Magnesium Total Bilirubin AST ALT Alkaline Phosphatase Total Protein Albumin TSH Cancelled Active Medications Generic Name Dose Route Start Last Admin Trade Name Freq PRN Reason Stop Dose Admin Albuterol/Ipratropium 1 amp 01/19/18 05:39 01/19/18 08:32 Duoneb - NEB 1 amp Q4H PRN Administration respiratory distress Baclofen 5 mg 01/19/18 06:00 01/20/18 05:34 Lioresal - GT 5 mg TID [facility]IS Administration Chlorhexidine Gluconate 1 applic 01/19/18 22:00 01/19/18 22:05 Hibiclens For Decolonization - TP 1 applic HS [facility] Administration Heparin Sodium (Porcine) 5,000 unit 01/19/18 06:00 01/20/18 05:33 Heparin - SQ 5,000 unit TID [facility] Administration Piperacillin Sod/Tazobactam 50 mls @ 100 mls/hr 01/19/18 18:00 01/20/18 10:29 Sod 3.375 gm/ Dextrose IVPB 100 mls/hr Q8H-IV [facility] Administration Protocol Ceftriaxone Sodium 2 gm in 50 mls @ 100 mls/hr 01/20/18 12:45 Ceftriaxone 2 Gm-D5w Bag IVPB DAILY [facility] Protocol Lactulose 10 gm 01/19/18 07:00 01/20/18 05:51 Cephulac (Oral Use) GT Not Given TID HARIS Levetiracetam 1,500 mg 01/19/18 10:00 01/20/18 10:30 Keppra Oral Solution - GT 1,500 mg BID [facility] Administration Mupirocin 1 applic 01/19/18 10:00 01/20/18 10:30 Bactroban Ointment (For Decolonization) - NS 01/24/18 09:59 1 applic BID [facility] Administration Oxcarbazepine 210 mg 01/19/18 22:00 01/19/18 22:33 Trileptal GT 210 mg HS [facility] Administration Prednisone 40 mg 01/19/18 12:45 01/20/18 10:29 Deltasone - PO 40 mg DAILY [facility] Administration Scopolamine HBr 1 patch 01/19/18 10:00 01/19/18 10:55 Transderm-Scop - TD 1 patch Q72H [facility] Administration Senna 1 tab 01/19/18 10:00 01/20/18 10:29 Senna - PO 1 tab BID [facility] Administration Topiramate 200 mg 01/19/18 10:00 01/20/18 10:31 Topamax - GT 200 mg BID [facility] Administration Microbiology 01/19/18 04:00 Urine For Antigen Detection Legionella Antigen - Final 01/19/18 04:00 Urine For Antigen Detection Streptococcus pneumoniae Antigen (M - Final 01/19/18 10:00 Sputum - Endotracheal Suction W/O Vent Gram Stain - Final 01/19/18 10:00 Sputum - Endotracheal Suction W/O Vent Sputum Culture - Preliminary NORMAL RESPIRATORY RONI 01/19/18 00:25 Blood - Peripheral Venous Blood Culture - Preliminary NO GROWTH OBTAINED AFTER 24 HOURS, INCUBATION TO CONTINUE FOR 4 DAYS. ASSESSMENT/PLAN 27 year-old female, [place] resident, with a PMH of cerebral palsy, severe mental retardation, spastic quadriplegia, GERD, seizure disorder, and recurrent pneumonia. Strep pneumonia/HCAP --afebrile, WBC 3.6k --urine antigen positive for strep pneumoniae --switch from Zosyn to ceftriaxone (day #1) --duonebs --ID following Bradycardia --HR 40s-50s, not baseline --ECG --Zoll pads on --cardiology consult requested Seizure disorder --stable --continue Keppra, trileptal, Topamax Cerebral palsy Spastic quadriplegia --continue baclofen Functional quadriplegia --fully dependent for all ADLs Elevated transaminases --US abdomen shows hepatomegaly, diffuse fatty liver --continue to trend Hypernatremia --Na 148 --increase free water FEN Fluids/Nutrition: Jevity 1.5 @ 42mL/hr which is goal; increase free water from 35 to 45mL/hr Electrolytes: replete as indicated DVT prophylaxis: subq heparin Dispo: continues to require ICU level care. Full code. Visit type - Emergency Visit Emergency Visit: Yes ED Registration Date: 01/19/18 Care time: The patient presented to the Emergency Department on the above date and was hospitalized for further evaluation of their emergent condition. - New Patient This patient is new to me today: Yes Date on this admission: 01/20/18 - Critical Care Critical Care patient: Yes Total Critical Care Time (in minutes): 35 Critical Care Statement: The care of this patient involved high complexity decision making to prevent further life threatening deterioration of the patient 's condition and/or to evaluate & treat vital organ system(s) failure or risk of failure.
[2018-01-20] MEDS ORDERED: DEXTROSE 5%-WATER 100 ML IVPB ONE (15:37)
[2018-01-20] MEDS: CEFTRIAXONE 2 GM in DEXTROSE 5%-WATER 100 ML IVPB SCH (15:38)
--- NOTE | 2018-01-20 16:16 | CON.CARD ---
Consult Consult Specialty:: Cardiology Reason for Consultation:: bradycardia - History of Present Illness Chief Complaint: bradycardia History of Present Illness: 27F h/o cerebral palsy, severe mental retardation, spastic quadriplegia, GERD, seizure disorder, and recurrent pneumonia p/w pneumonia. Noted to have bradycardia in ICU. - Past Medical History [employer]: Yes: Seizure, Other (CP) Pulmonary: Yes: Asthma, Pneumonia - Alcohol/Substance Use Hx Alcohol Use: No - Smoking History Smoking history: Never smoked Have you smoked in the past 12 months: No Aproximately how many cigarettes per day: 0 - Social History Usual Living Arrangement: Prison History of Recent Travel: No Home Medications - Allergies Allergies/Adverse Reactions: Allergies Allergy/AdvReac Type Severity Reaction Status Date / Time No Known Allergies Allergy Verified 01/18/18 23:26 - Home Medications Home Medications: Ambulatory Orders Albuterol 0.083% Nebulizer Sobeida [Ventolin 0.083% Nebulizer Soln -] 1 neb NEB Q6H PRN 02/05/17 Baclofen 5 mg GT TID 02/05/17 Cholecalciferol (Vitamin D3) [Vitamin D3] 2,000 unit GT DAILY 02/05/17 Lactulose 10 gm GT TID 02/05/17 Levetiracetam 1,500 mg GT BID 02/05/17 Nystatin Ointment [Mycostatin Ointment -] 1 applic TP PRN PRN 02/05/17 OXcarbazepine [Trileptal] 180 mg GT DAILY 02/05/17 OXcarbazepine [Trileptal] 210 mg GT HS 02/05/17 Topiramate 200 mg GT BID 02/05/17 Topiramate [Trokendi Xr] 25 mg GT BID 02/05/17 Albuterol 2.5/Ipratropium 0.5 [Duoneb -] 1 neb NEB Q4H PRN 11/30/17 Diazepam Rectal Gel [Diastat Rectal Gel -] 10 mg AR PRN 11/30/17 Nutritional Supplement [Promote] 120 ml PO ASDIR 11/30/17 Sennosides [Senna] 8.6 mg PO BID 11/30/17 Vital Signs: Vital Signs Temperature 98.1 F 01/20/18 10:00 Pulse Rate 52 L 01/20/18 12:00 Respiratory Rate 20 01/20/18 12:00 Blood Pressure 143/86 01/20/18 12:00 O2 Sat by Pulse Oximetry (%) 98 01/20/18 10:00 - Other Data Labs, Other Data: CBC, BMP 01/20/18 06:30 01/20/18 06:30 INR, PTT INR 1.01 (0.82-1.09) 01/19/18 06:50 Assessment/Plan EKG 12/2017 sinus bradycardia, 40 bpm tele: sinus bradycardia 40s-50s bpm with episodes of HR 110s-120s 27 year-old female, [place] resident, with a PMH of cerebral palsy, severe mental retardation, spastic quadriplegia, GERD, seizure disorder, and recurrent pneumonia. Bradycardia - sinus bradycardia likely in setting of autonomic dysfunction, hypoxia, more notable when patient is sleeping - may also be medication effect, can be seen with topamax - patient is hemodynamically stable, no indication for pacing at this point - tele reviewed, no episodes of pause/heart block; also noted to have episodes today of HR >100 suggesting appropriate chronotropic response - continue monitoring on tele PNA - on IV abx per primary team Seizure disorder - stable on keppra, trileptal, topamax Cerebral palsy Spastic quadriplegia - on baclofen Hypernatremia - Na 148 today, increasing free water per primary team
--- NOTE | 2018-01-20 18:48 | PN ---
Physical Exam: SUBJECTIVE: Patient seen and examined this am in icu. Resting in bed. Coughing up copious amounts of respiratory secretions, patient suctioned. Having episodes of bradycardia in high 30's and low 40's. OBJECTIVE: Vital Signs Period Temp Pulse Resp BP Sys/Herman Pulse Ox Last 24 Hr 98.1 F-98.9 F 40-66 20-30 119-145/68-86 95-98 GENERAL: Nonverbal, Nonresponsive. EYES: Upward gazing. ENT: Ears normal, nares patent, oropharynx clear without exudates, moist mucous membranes.. LUNGS: Coarse breath sounds throughout. B/L rhonchi. HEART: RRR ABDOMEN: Soft, No HSM, ND EXTREMITIES: Contractures upper/Lower extremities NEUROLOGICAL: Cerebral palsy, M.R SKIN: Multiple Petechiae over extremities. Laboratory Results - last 24 hr 01/20/18 01/20/18 01/20/18 06:30 06:30 06:30 WBC 3.6 L RBC 2.69 L Hgb 8.9 L Hct 26.7 L MCV 99.3 H MCH 33.2 MCHC 33.4 RDW 17.4 H Plt Count 106 L MPV 9.8 Sodium 148 H Potassium 4.5 Chloride 118 H Carbon Dioxide 21 Anion Gap 9 BUN 9 Creatinine 0.5 L Creat Clearance w eGFR > 60 Random Glucose 119 H Calcium 8.7 Magnesium 2.3 Total Bilirubin 0.3 AST 267 H ALT 344 H Alkaline Phosphatase 365 H D Total Protein 6.4 Albumin 2.8 L TSH 0.92 Cancelled Active Medications Generic Name Dose Route Start Last Admin Trade Name Freq PRN Reason Stop Dose Admin Albuterol/Ipratropium 1 amp 01/19/18 05:39 01/19/18 08:32 Duoneb - NEB 1 amp Q4H PRN Administration respiratory distress Baclofen 5 mg 01/19/18 06:00 01/20/18 15:36 Lioresal - GT 5 mg TID HARIS Administration Chlorhexidine Gluconate 1 applic 01/19/18 22:00 01/19/18 22:05 Hibiclens For Decolonization - TP 1 applic HS HARIS Administration Heparin Sodium (Porcine) 5,000 unit 01/19/18 06:00 01/20/18 15:35 Heparin - SQ 5,000 unit TID HARIS Administration Ceftriaxone Sodium 2 gm/ 100 mls @ 200 mls/hr 01/20/18 12:45 01/20/18 15:38 Dextrose IVPB 200 mls/hr DAILY HARIS Administration Protocol Lactulose 10 gm 01/19/18 07:00 01/20/18 15:35 Cephulac (Oral Use) GT 10 gm TID HARIS Administration Levetiracetam 1,500 mg 01/19/18 10:00 01/20/18 10:30 Keppra Oral Solution - GT 1,500 mg BID HARIS Administration Mupirocin 1 applic 01/19/18 10:00 01/20/18 10:30 Bactroban Ointment (For Decolonization) - NS 01/24/18 09:59 1 applic BID HARIS Administration Oxcarbazepine 210 mg 01/19/18 22:00 01/19/18 22:33 Trileptal GT 210 mg HS HARIS Administration Prednisone 40 mg 01/19/18 12:45 01/20/18 10:29 Deltasone - PO 40 mg DAILY HARIS Administration Scopolamine HBr 1 patch 01/19/18 10:00 01/19/18 10:55 Transderm-Scop - TD 1 patch Q72H HARIS Administration Senna 1 tab 01/19/18 10:00 01/20/18 10:29 Senna - PO 1 tab BID HARIS Administration Topiramate 200 mg 01/19/18 10:00 01/20/18 10:31 Topamax - GT 200 mg BID HARIS Administration ASSESSMENT/PLAN: 27 y/o female w/ pmh of GERD, cerebral palsy, congenital quadriplegia, spastic quadriparesis, cerebral palsy, severe MR, non verbal and non communicative at baseline, seizure d/o, recurrent pneumonia from [facility] came to [facility] ED due to respirtory distress. At [facility], patient had audible coarse, labored breathing and cough that was productive of light-yellow colored sputum. Patient was saturating 88% on 2L nasal cannula, and had chills. Neuro: Seizure D/O Oxcarbazepine 210 mg GT Topiramate 200 mg GT BID Levetiracetam 1,500 mg GT BID Pulm: Aspiration Pneumonia vs, Aspiration Pneumonitis? I.D on board Piperacillin Sod/Tazobactam D/C'ed Chest X-Ray 7/27: Lungs slightly better aerated. Duoneb 1 amp NEB Q4H PRN for Respiratory Distress Urine Strep Pneumo antigen POSITIVE------> Zosyn switched to Ceftriaxone today. Aspiration precautions G.I AST->267 ALT->344 Alk Phos->365 RUQ Ultrasound---->Trace Ascites, Hepatomegaly and diffuse fatty infiltration of liver. Cardio: Episodes of Bradycardia Cardiology-Dr Rosa on board Etiology of bradycardia unknown. May be due to topamax or autonomic dysfunction or hypoxia. Continue telemetr. FEN No Fluids Monitor Electrolytes Tube Feed Jevity DVT ppx: Heparin 5,000 U SQ TID Dispo: Pt to be transferred to telemetry. Visit type - Emergency Visit Emergency Visit: Yes ED Registration Date: 01/19/18 Care time: The patient presented to the Emergency Department on the above date and was hospitalized for further evaluation of their emergent condition. - New Patient This patient is new to me today: No - Critical Care Critical Care patient: Yes Total Critical Care Time (in minutes): 36 Critical Care Statement: The care of this patient involved high complexity decision making to prevent further life threatening deterioration of the patient 's condition and/or to evaluate & treat vital organ system(s) failure or risk of failure.
[2018-01-20] MEDS: CHLORHEXIDINE GLUCONATE 4% CLEANSER FOR DECOLONIZATION TP SCH (21:59)
[2018-01-20] MEDS ORDERED: guaiFENesin 600 MG TABLET.ER (FP) PO SCH (22:00)
[2018-01-20] MEDS: OXcarbazepine 300 MG/5 ML 250 ML BULK BOTTLE GT SCH (22:01)
[2018-01-20] MEDS: ALBUTEROL SO4 2.5/IPRATROPIUM 0.5 INH SOL 3 ML VIAL.NEB. NEB PRN (22:12)
[2018-01-21] MEDS: BACLOFEN 10 MG TABLET (FP) GT SCH ×3 (05:36→22:15)
[2018-01-21] MEDS: HEPARIN NA (PORCINE) 5,000 UNITS/ML 1ML VIAL SQ SCH ×3 (05:36→22:14)
[2018-01-21] MEDS: LACTULOSE 20 GM/30 ML UDC (FOR ORAL USE ONLY) GT SCH ×2 (05:37→14:10)
[2018-01-21 05:50] LABS: BASO % 0.2 % (0-2.0); EOS % 0.5 % (0-4.5); HEMOGLOBIN 9.7 GM/dL (10.7-15.3); LYMPH % 48.7 % (8-40); MCH 32.9 pg (25.7-33.7); MCHC 33.5 g/dl (32.0-36.0); MEAN CELL VOLUME 98.4 fl (80-96); MONO % 8.6 % (3.8-10.2); PLATELET COUNT 146 K/MM3 (134-434); RBC 2.94 M/mm3 (3.60-5.2); RDW 17.4 % (11.6-15.6); WHITE BLOOD COUNT 5.5 K/mm3 (4.0-10.0)
[2018-01-21 06:19] LABS: ALBUMIN 2.9 g/dl (3.4-5.0); ANION GAP 9 (8-16); BLOOD UREA NITROGEN 11 mg/dL (7-18); CHLORIDE 116 mmol/L (98-107); CO2 23 mmol/L (21-32); CREATININE 0.5 mg/dL (0.55-1.02); GLUCOSE,RANDOM 112 mg/dL (74-106); POTASSIUM 3.9 mmol/L (3.5-5.1); SGOT/AST 316 U/L (15-37); SODIUM 148 mmol/L (136-145)
[2018-01-21 06:20] LABS: ALK PHOS 362 U/L (45-117); BILIRUBIN,TOTAL 0.2 mg/dL (0.2-1.0); TOT PROT 6.6 g/dl (6.4-8.2)
[2018-01-21 06:24] LABS: SGPT/ALT 579 U/L (12-78)
--- NOTE | 2018-01-21 08:52 | PN ---
Progress Note (short form) - Note Progress Note: resting comfortably no fevers Vital Signs Period Temp Pulse Resp BP Sys/Herman Pulse Ox Last 24 Hr 97.4 F-98.9 F 40-96 15-28 113-145/68-90 97-98 cor-rrr lungs decreased bs at bases abd soft,nt ext no edema CBC, BMP 01/21/18 05:30 01/21/18 05:30 Microbiology 01/19/18 08:10 Blood - Peripheral Venous Blood Culture - Preliminary NO GROWTH OBTAINED AFTER 48 HOURS, INCUBATION TO CONTINUE FOR 3 DAYS. 01/20/18 10:00 Nasopharyngeal Swab Respiratory Syncytial Virus Ag - Final 01/19/18 04:00 Sputum - Expectorated Gram Stain - Final 01/19/18 04:00 Urine For Antigen Detection Legionella Antigen - Final 01/19/18 04:00 Urine For Antigen Detection Streptococcus pneumoniae Antigen (M - Final 01/19/18 10:00 Sputum - Endotracheal Suction W/O Vent Gram Stain - Final 01/19/18 10:00 Sputum - Endotracheal Suction W/O Vent Sputum Culture - Preliminary NORMAL RESPIRATORY RONI 01/19/18 00:25 Blood - Peripheral Venous Blood Culture - Preliminary NO GROWTH OBTAINED AFTER 24 HOURS, INCUBATION TO CONTINUE FOR 4 DAYS. cxray/ultrasound noted Current Medications Albuterol/Ipratropium (Duoneb -) 1 amp NEB Q4H PRN PRN Reason: respiratory distress Last Admin: 01/20/18 22:12 Dose: 1 amp Baclofen (Lioresal -) 5 mg GT TID [facility] Last Admin: 01/21/18 05:36 Dose: 5 mg Chlorhexidine Gluconate (Hibiclens For Decolonization -) 1 applic TP HS [facility] Last Admin: 01/20/18 21:59 Dose: 1 applic Heparin Sodium (Porcine) (Heparin -) 5,000 unit SQ TID HARIS Last Admin: 01/21/18 05:36 Dose: 5,000 unit Ceftriaxone Sodium 2 gm/ (Dextrose) 100 mls @ 200 mls/hr IVPB DAILY [facility]; Protocol Last Admin: 01/20/18 15:38 Dose: 200 mls/hr Lactulose (Cephulac (Oral Use)) 10 gm GT TID HARIS Last Admin: 01/21/18 05:37 Dose: 10 gm Levetiracetam (Keppra Oral Solution -) 1,500 mg GT BID [facility] Last Admin: 01/20/18 22:00 Dose: 1,500 mg Mupirocin (Bactroban Ointment (For Decolonization) -) 1 applic NS BID [facility] Stop: 01/24/18 09:59 Last Admin: 01/20/18 21:59 Dose: 1 applic Oxcarbazepine (Trileptal) 210 mg GT HS [facility] Last Admin: 01/20/18 22:01 Dose: 210 mg Prednisone (Deltasone -) 40 mg PO DAILY [facility] Last Admin: 01/20/18 10:29 Dose: 40 mg Scopolamine HBr (Transderm-Scop -) 1 patch TD Q72H [facility] Last Admin: 01/19/18 10:55 Dose: 1 patch Senna (Senna -) 1 tab PO BID [facility] Last Admin: 01/20/18 22:00 Dose: Not Given Topiramate (Topamax -) 200 mg GT BID [facility] Last Admin: 01/20/18 22:00 Dose: Not Given a/p pneumonia-pneumococcal antigen positive continue rocephin day #2 abnormal LFTS-worsening- check hep serology would ask GI to see bradycardia Downs syndrome seizure disorder
--- NOTE | 2018-01-21 09:38 | PN ---
Progress Note (short form) - Note Progress Note: PULM/CCM SUBJECTIVE: Patient seen and examined in the ICU. Awake. -still marilou but stable BP -rising LFTS, no obstruction on US but some NEWMAN -GI to be consulted...suspect med (has occured in past) Vital Signs Temp 97.4 F L 01/21/18 08:00 Pulse 42 L 01/21/18 08:00 Resp 20 01/21/18 08:00 BP 140/90 01/21/18 08:00 Pulse Ox 100 01/21/18 08:51 Intake & Output 01/20/18 01/20/18 01/21/18 11:59 23:59 11:59 Intake Total 684 040 8252 Balance 724 033 9919 Weight 50.666 kg 51.6 kg Intake: IV 400 400 531 Left Hand #22g 01/19 531 Normal Saline - 1,000 ml 400 400 @ 50 mls/hr IV ASDIR HARIS Rx#:[id number] IVPB 50 150 Tube Feeding 336 504 Tube Irrigant 160 540 Other: Voiding Method Diaper Incontinent Incontinent # Unmeasured Voids Void 2 4 Bowel Movement Yes Yes Yes # Bowel Movements 2 1 2 Weight Measurement Method Built in Bedscale Built in Bedscale Active Medications Albuterol/Ipratropium (Duoneb -) 1 amp NEB Q4H PRN PRN Reason: respiratory distress Last Admin: 01/20/18 22:12 Dose: 1 amp Baclofen (Lioresal -) 5 mg GT TID HARIS Last Admin: 01/21/18 05:36 Dose: 5 mg Chlorhexidine Gluconate (Hibiclens For Decolonization -) 1 applic TP HS HARIS Last Admin: 01/20/18 21:59 Dose: 1 applic Heparin Sodium (Porcine) (Heparin -) 5,000 unit SQ TID HARIS Last Admin: 01/21/18 05:36 Dose: 5,000 unit Ceftriaxone Sodium 2 gm/ (Dextrose) 100 mls @ 200 mls/hr IVPB DAILY [facility]; Protocol Last Admin: 01/20/18 15:38 Dose: 200 mls/hr Lactulose (Cephulac (Oral Use)) 10 gm GT TID HARIS Last Admin: 01/21/18 05:37 Dose: 10 gm Levetiracetam (Keppra Oral Solution -) 1,500 mg GT BID [facility] Last Admin: 01/20/18 22:00 Dose: 1,500 mg Mupirocin (Bactroban Ointment (For Decolonization) -) 1 applic NS BID [facility] Stop: 01/24/18 09:59 Last Admin: 01/20/18 21:59 Dose: 1 applic Oxcarbazepine (Trileptal) 210 mg GT HS [facility] Last Admin: 01/20/18 22:01 Dose: 210 mg Prednisone (Deltasone -) 40 mg PO DAILY [facility] Last Admin: 01/20/18 10:29 Dose: 40 mg Scopolamine HBr (Transderm-Scop -) 1 patch TD Q72H [facility] Last Admin: 01/19/18 10:55 Dose: 1 patch Senna (Senna -) 1 tab PO BID [facility] Last Admin: 01/20/18 22:00 Dose: Not Given Topiramate (Topamax -) 200 mg GT BID [facility] Last Admin: 01/20/18 22:00 Dose: Not Given GENERAL: Awake, non-verbal, no respiratory distress. HEAD: Normal with no signs of trauma. EYES: Pupils equal, round and reactive to light, conjunctiva clear. EARS, NOSE, THROAT: some drooling and pooling of oral secretions LUNGS: Bilateral coarse breath sounds, no wheezing HEART: Regular rate and rhythm, normal S1 and S2. ABDOMEN: Soft, not distended. No pain on palp. PEG tube in place, nonerythematous skin surrounding PEG tube site. EXTREMITIES: 2+ pulses, warm. No peripheral edema., contracted Laboratory Results - last 24 hr 01/21/18 01/21/18 05:30 05:30 WBC 5.5 RBC 2.94 L Hgb 9.7 L Hct 29.0 L MCV 98.4 H MCH 32.9 MCHC 33.5 RDW 17.4 H Plt Count 146 D MPV 10.0 Absolute Neuts (auto) 2.3 Neutrophils % 42.0 L D Lymphocytes % 48.7 H D Monocytes % 8.6 Eosinophils % 0.5 D Basophils % 0.2 Nucleated RBC % 0 Sodium 148 H Potassium 3.9 Chloride 116 H Carbon Dioxide 23 Anion Gap 9 BUN 11 Creatinine 0.5 L Creat Clearance w eGFR > 60 Random Glucose 112 H Calcium 9.0 Total Bilirubin 0.2 AST 316 H ALT 579 H Alkaline Phosphatase 362 H Creatine Kinase 92 Total Protein 6.6 Albumin 2.9 L ASSESSMENT/PLAN: Acute Respiratory Distress due to possible Aspiration Pneumonitis R/O HCAP (?) Component of Pulmonary Vascular congestion Seizure D/O Spastic Cerebral Palsy Bradycardia: (?) due to autonomic dysfunction +/- medication effect Acute Liver Injury---NEWMAN on US strep pneumo AG + ABX per ID ---Ceftriaxone O2 as needed Aspiration precautions Follow CXR Minimize IVF Steroids BD TX OK for Telemetry monitoring Yudelka HAJI [id number]
[2018-01-21] MEDS ORDERED: DEXTROSE 5%-WATER 100 ML IVPB ONE (09:41)
[2018-01-21] MEDS: MUPIROCIN 2% TOPICAL OINTMENT FOR DECOLONIZATION NS SCH ×2 (09:43→22:14)
[2018-01-21] MEDS: CEFTRIAXONE 2 GM in DEXTROSE 5%-WATER 100 ML IVPB SCH (09:44)
[2018-01-21] MEDS: predniSONE 20 MG TABLET (UD) PO SCH (09:45)
[2018-01-21] MEDS: SENNOSIDES 8.6MG TABLET (FP) PO SCH ×2 (09:45→22:16)
[2018-01-21] MEDS: TOPIRAMATE 200 MG TABLET (FP) GT SCH ×2 (09:46→22:16)
--- NOTE | 2018-01-21 09:53 | PN ---
Progress Note (short form) - Note Progress Note: s: awake this morning, not conversing, currently HR 40s Tele: HR high 30s-low 40s, episodes of HR 70s-110s as well o: Vital Signs Period Temp Pulse Resp BP Sys/Herman Pulse Ox Last 24 Hr 97.4 F-98.9 F 40-96 15-28 113-145/68-90 97-100 Current Medications Generic Name Dose Route Start Last Admin Trade Name Freq PRN Reason Stop Dose Admin Albuterol/Ipratropium 1 amp 01/19/18 05:39 01/20/18 22:12 Duoneb - NEB 1 amp Q4H PRN Administration respiratory distress Baclofen 5 mg 01/19/18 06:00 01/21/18 05:36 Lioresal - GT 5 mg TID HARIS Administration Chlorhexidine Gluconate 1 applic 01/19/18 22:00 01/20/18 21:59 Hibiclens For Decolonization - TP 1 applic HS HARIS Administration Heparin Sodium (Porcine) 5,000 unit 01/19/18 06:00 01/21/18 05:36 Heparin - SQ 5,000 unit TID HARIS Administration Ceftriaxone Sodium 2 gm/ 100 mls @ 200 mls/hr 01/20/18 12:45 01/21/18 09:44 Dextrose IVPB 200 mls/hr DAILY HARIS Administration Protocol Lactulose 10 gm 01/19/18 07:00 01/21/18 05:37 Cephulac (Oral Use) GT 10 gm TID HARIS Administration Levetiracetam 1,500 mg 01/19/18 10:00 01/20/18 22:00 Keppra Oral Solution - GT 1,500 mg BID HARIS Administration Mupirocin 1 applic 01/19/18 10:00 01/21/18 09:43 Bactroban Ointment (For Decolonization) - NS 01/24/18 09:59 1 applic BID HARIS Administration Oxcarbazepine 210 mg 01/19/18 22:00 01/20/18 22:01 Trileptal GT 210 mg HS HARIS Administration Prednisone 40 mg 01/19/18 12:45 01/21/18 09:45 Deltasone - PO 40 mg DAILY HARIS Administration Scopolamine HBr 1 patch 01/19/18 10:00 01/19/18 10:55 Transderm-Scop - TD 1 patch Q72H HARIS Administration Senna 1 tab 01/19/18 10:00 01/21/18 09:45 Senna - PO 1 tab BID HARIS Administration Topiramate 200 mg 01/19/18 10:00 01/21/18 09:46 Topamax - GT 200 mg BID HARIS Administration Assessment/Plan EKG 12/2017 sinus bradycardia, 40 bpm tele: sinus bradycardia 40s-50s bpm with episodes of HR 110s-120s 27 year-old female, [place] resident, with a PMH of cerebral palsy, severe mental retardation, spastic quadriplegia, GERD, seizure disorder, and recurrent pneumonia. Bradycardia - sinus bradycardia likely in setting of autonomic dysfunction, hypoxia, more notable when patient is sleeping, also 40s when patient awake - may also be medication effect, can be seen with topamax, although patient has been on this at home - patient is hemodynamically stable, no indication for pacing at this point - tele reviewed, no episodes of pause/heart block; also noted to have episodes of HR >100 suggesting appropriate chronotropic response - continue monitoring on tele PNA - on IV abx per primary team Seizure disorder - stable on keppra, trileptal, topamax Cerebral palsy Spastic quadriplegia - on baclofen Hypernatremia - Na 148 today, continue increasing free water per primary team
--- NOTE | 2018-01-21 10:04 | PN ---
Physical Exam: SUBJECTIVE: Patient seen and examined at bedside in ICU. OBJECTIVE: Vital Signs Period Temp Pulse Resp BP Sys/Herman Pulse Ox Last 24 Hr 97.4 F-98.9 F 40-96 15-28 113-145/68-90 97-100 GENERAL: The patient is awake, appears comfortable. Reacts to voice by smiling. LUNGS: Mild expiratory wheezing, improved HEART: Regular rate and rhythm, S1, S2 ABDOMEN: Soft, nontender, nondistended; feeding tube, surrounding skin intact EXTREMITIES: 2+ pulses, warm, well-perfused, no edema. Laboratory Results - last 24 hr 01/21/18 01/21/18 05:30 05:30 WBC 5.5 RBC 2.94 L Hgb 9.7 L Hct 29.0 L MCV 98.4 H MCH 32.9 MCHC 33.5 RDW 17.4 H Plt Count 146 D MPV 10.0 Absolute Neuts (auto) 2.3 Neutrophils % 42.0 L D Lymphocytes % 48.7 H D Monocytes % 8.6 Eosinophils % 0.5 D Basophils % 0.2 Nucleated RBC % 0 Sodium 148 H Potassium 3.9 Chloride 116 H Carbon Dioxide 23 Anion Gap 9 BUN 11 Creatinine 0.5 L Creat Clearance w eGFR > 60 Random Glucose 112 H Calcium 9.0 Total Bilirubin 0.2 AST 316 H ALT 579 H Alkaline Phosphatase 362 H Creatine Kinase 92 Total Protein 6.6 Albumin 2.9 L Active Medications Generic Name Dose Route Start Last Admin Trade Name Freq PRN Reason Stop Dose Admin Albuterol/Ipratropium 1 amp 01/19/18 05:39 01/20/18 22:12 Duoneb - NEB 1 amp Q4H PRN Administration respiratory distress Baclofen 5 mg 01/19/18 06:00 01/21/18 05:36 Lioresal - GT 5 mg TID HARIS Administration Chlorhexidine Gluconate 1 applic 01/19/18 22:00 01/20/18 21:59 Hibiclens For Decolonization - TP 1 applic HS HARIS Administration Heparin Sodium (Porcine) 5,000 unit 01/19/18 06:00 01/21/18 05:36 Heparin - SQ 5,000 unit TID HARIS Administration Ceftriaxone Sodium 2 gm/ 100 mls @ 200 mls/hr 01/20/18 12:45 01/21/18 09:44 Dextrose IVPB 200 mls/hr DAILY HARIS Administration Protocol Lactulose 10 gm 01/19/18 07:00 01/21/18 05:37 Cephulac (Oral Use) GT 10 gm TID HARIS Administration Levetiracetam 1,500 mg 01/19/18 10:00 01/20/18 22:00 Keppra Oral Solution - GT 1,500 mg BID HARIS Administration Mupirocin 1 applic 01/19/18 10:00 01/21/18 09:43 Bactroban Ointment (For Decolonization) - NS 01/24/18 09:59 1 applic BID HARIS Administration Oxcarbazepine 210 mg 01/19/18 22:00 01/20/18 22:01 Trileptal GT 210 mg HS HARIS Administration Prednisone 40 mg 01/19/18 12:45 01/21/18 09:45 Deltasone - PO 40 mg DAILY HARIS Administration Scopolamine HBr 1 patch 01/19/18 10:00 01/19/18 10:55 Transderm-Scop - TD 1 patch Q72H HARIS Administration Senna 1 tab 01/19/18 10:00 01/21/18 09:45 Senna - PO 1 tab BID HARIS Administration Topiramate 200 mg 01/19/18 10:00 01/21/18 09:46 Topamax - GT 200 mg BID HARIS Administration ASSESSMENT/PLAN Microbiology 01/19/18 04:00 Urine For Antigen Detection Legionella Antigen - Final 01/19/18 04:00 Urine For Antigen Detection Streptococcus pneumoniae Antigen (M - Final 01/19/18 10:00 Sputum - Endotracheal Suction W/O Vent Gram Stain - Final 01/19/18 10:00 Sputum - Endotracheal Suction W/O Vent Sputum Culture - Preliminary NORMAL RESPIRATORY RONI 01/19/18 00:25 Blood - Peripheral Venous Blood Culture - Preliminary NO GROWTH OBTAINED AFTER 24 HOURS, INCUBATION TO CONTINUE FOR 4 DAYS. ASSESSMENT/PLAN 27 year-old female, [place] resident, with a PMH of cerebral palsy, severe mental retardation, spastic quadriplegia, GERD, seizure disorder, and recurrent pneumonia. Strep pneumonia/HCAP --afebrile, WBC 3.6k --urine antigen positive for strep pneumoniae --ceftriaxone (day #2) --duonebs --ID following Bradycardia --HR 40s --per cardiology: likely due to autonomic dysfunction, hypoxia, more notable when patient is sleeping --BP is stable, no indication for pacing at this point --continue monitoring on tele Seizure disorder --stable --continue Keppra, trileptal, Topamax Cerebral palsy Spastic quadriplegia --continue baclofen Functional quadriplegia --fully dependent for all ADLs Elevated transaminases --US abdomen shows hepatomegaly, diffuse fatty liver --hepatitis panel pending Hypernatremia --still elevated Na 148 --increase free water to 55mL/hr FEN Fluids/Nutrition: Jevity 1.5 @ 42mL/hr which is goal; free water 55mL/hr Electrolytes: replete as indicated DVT prophylaxis: subq heparin Dispo: continues to require ICU level care. Full code. Visit type - Emergency Visit Emergency Visit: Yes ED Registration Date: 01/19/18 Care time: The patient presented to the Emergency Department on the above date and was hospitalized for further evaluation of their emergent condition. - New Patient This patient is new to me today: No - Critical Care Critical Care patient: Yes Total Critical Care Time (in minutes): 35 Critical Care Statement: The care of this patient involved high complexity decision making to prevent further life threatening deterioration of the patient 's condition and/or to evaluate & treat vital organ system(s) failure or risk of failure.
[2018-01-21] MEDS ORDERED: PT OWN MED DRAWER 7, Y5N ONE ×3 (10:22→21:45)
[2018-01-21] MEDS: levETIRAcetam 500 MG/5 ML ORAL SOLUTION (UNIT-DOSE CUPS) GT SCH ×2 (10:23→22:15)
--- NOTE | 2018-01-21 13:45 | CON.GI ---
Consult Consult Specialty:: GI: for Dr. Sotelo Referred by:: Hospitalist Reason for Consultation:: Abnormal Liver Chemistries - History of Present Illness Chief Complaint: Patient non-verbal History of Present Illness: 27F admitted from [facility] for evaluation of increased respiratory secretions and SOB. Asked to evaluate elevated transamonases and alkaline phosphataase. In review of the mediitech, transaminases and alkaline phosphatase have been elevated to some extent from at least 2014. It is unclear if she has ever had an outpatient work-up regarding this or if there has been an attempt to adjust her medication regimen due to this. Her abdominal US revealed hepatomegaly and fatty infiltration without discrete hepatic mass or biliary ductal dilatation. A previous US revealed an echogenic appearing liver. Hepatitis A and B serologies from 12/11 revealed immunity to hepatitis B and were otherwise unrevealing. She is being treated for a Strep Pneumoniae PNA and is now being evaluated for bradycardia. 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, Other (CP) Pulmonary: Yes: Asthma, Pneumonia - Past Surgical History Additional Surgical History: spinal surgery - Alcohol/Substance Use Hx Alcohol Use: No - Smoking History Smoking history: Never smoked Have you smoked in the past 12 months: No Aproximately how many cigarettes per day: 0 - Social History Usual Living Arrangement: Group Home ADL: Support Services Place of : [facility] History of Recent Travel: No Home Medications - Allergies Allergies/Adverse Reactions: Allergies Allergy/AdvReac Type Severity Reaction Status Date / Time No Known Allergies Allergy Verified 01/18/18 23:26 - Home Medications Home Medications: Ambulatory Orders Albuterol 0.083% Nebulizer Sobeida [Ventolin 0.083% Nebulizer Soln -] 1 neb NEB Q6H PRN 02/05/17 Baclofen 5 mg GT TID 02/05/17 Cholecalciferol (Vitamin D3) [Vitamin D3] 2,000 unit GT DAILY 02/05/17 Lactulose 10 gm GT TID 02/05/17 Levetiracetam 1,500 mg GT BID 02/05/17 Nystatin Ointment [Mycostatin Ointment -] 1 applic TP PRN PRN 02/05/17 OXcarbazepine [Trileptal] 180 mg GT DAILY 02/05/17 OXcarbazepine [Trileptal] 210 mg GT HS 02/05/17 Topiramate 200 mg GT BID 02/05/17 Topiramate [Trokendi Xr] 25 mg GT BID 02/05/17 Albuterol 2.5/Ipratropium 0.5 [Duoneb -] 1 neb NEB Q4H PRN 11/30/17 Diazepam Rectal Gel [Diastat Rectal Gel -] 10 mg AK PRN 11/30/17 Nutritional Supplement [Promote] 120 ml PO ASDIR 11/30/17 Sennosides [Senna] 8.6 mg PO BID 11/30/17 Family Disease History - Family Disease History Family History: Unable to Obtain Review of Systems - Review of Systems Respiratory: reports: Cough (per nursing) Gastrointestinal: reports: Diarrhea (per nursing) Physical Exam-GI Vital Signs: Vital Signs Temperature 97.8 F 01/21/18 10:00 Pulse Rate 40 L 01/21/18 12:00 Respiratory Rate 24 01/21/18 12:00 Blood Pressure 127/77 01/21/18 12:00 O2 Sat by Pulse Oximetry (%) 100 01/21/18 08:51 Constitutional: Yes: Calm Eyes: No: Sclera Icterus Cardiovascular: Yes: Bradycardia Respiratory: Yes: Diminished (at bases, b/l w/ poor insp effort) Gastrointestinal Inspection: No: Distention ...Auscultate: Yes: Normoactive Bowel Sounds ...Palpate: Yes: Soft. No: Tenderness (no graimacing upon palpation) ...Percussion: No: Tympanitic Edema: No (No LE edema ) Neurological: Yes: Alert, Oriented Labs: CBC, BMP 01/21/18 05:30 01/21/18 05:30 INR, PTT INR 1.01 (0.82-1.09) 01/19/18 06:50 Hepatic Panel Total Bilirubin 0.2 mg/dL (0.2-1.0) 01/21/18 05:30 AST 316 U/L (15-37) H 01/21/18 05:30 ALT 579 U/L (12-78) H 01/21/18 05:30 Alkaline Phosphatase 362 U/L (45-117) H 01/21/18 05:30 Albumin 2.9 g/dl (3.4-5.0) L 01/21/18 05:30 Imaging - Results Ultrasound: Report Reviewed Problem List - Problems (1) Elevated liver enzymes Assessment/Plan: Acute on chronic process: In terms of the acute component: ? if reactive secondary to systemic illness / PNA. Unclear if there is significant RLL infiltrate that could contribute ? if worsening cholestasis secondary to Ceftriaxone In terms of the chronic component: Limited radiographic options as I dount she would be able to be positioned appropriately for an MRCP for further evaluate her biliary anatomy Liver US reveals fatty infiltration of the liver. ? microvesicular steatosis secondary to meds, macrovesicular steatosis, combination or alternate etiologies , Short of a liver biopsy, it is hard to say what is causing her chronic LFT abnormalities. She is on chronic antiseizure medications that I'm sure cannot be abruptly discontinued but her home medication regimen should be reviewed, discussed with her outpatient PMD / neurologist and adjusted as feasible to minimize hepatotoxicity Hepatitis serologies are pending Further serologic testing can be performed (ceruloplasmin to eval for kari's, AARON/Smooth muscle antibody to eval for an autoimmune component, alpha-1- antitrypsin level and phenotype to assess for pskyg-[id number] deficiency, AMA to evaluate for PBC (albeit wrong age) but the question is if testing is abnormal, would the family want her to undergo liver biopsy or further evaluation. this should be discussed with the family and if they are agreeable testing can be performed consider adjustment of antibiotics If ALP / bilirubin begin to rise, would assess if MRCP would be feasible however as above, it likely wont be. Code(s): R74.8 - ABNORMAL LEVELS OF OTHER SERUM ENZYMES (2) Diarrhea Assessment/Plan: On IV Abx and on standing lactulose. She has been recently hospitalized and is a [place] resident. Can stop lactulose. If persistent diarrhea then check stool c. diff. Code(s): R19.7 - DIARRHEA, UNSPECIFIED
[2018-01-21] MEDS: ALBUTEROL SO4 2.5/IPRATROPIUM 0.5 INH SOL 3 ML VIAL.NEB. NEB PRN (20:23)
[2018-01-21] MEDS: CHLORHEXIDINE GLUCONATE 4% CLEANSER FOR DECOLONIZATION TP SCH (22:15)
[2018-01-21] MEDS: OXcarbazepine 300 MG/5 ML 250 ML BULK BOTTLE GT SCH (22:24)
[2018-01-22] MEDS: HEPARIN NA (PORCINE) 5,000 UNITS/ML 1ML VIAL SQ SCH ×3 (06:05→21:53)
[2018-01-22] MEDS: BACLOFEN 10 MG TABLET (FP) GT SCH ×3 (06:05→21:53)
[2018-01-22 08:09] LABS: HBSAG SCREEN Negative (Negative); HEP B CORE AB, TOT Negative (Negative)
--- NOTE | 2018-01-22 08:23 | PN ---
Progress Note (short form) - Note Progress Note: continues to cough Vital Signs Period Temp Pulse Resp BP Sys/Herman Pulse Ox Last 24 Hr 97.8 F-98.5 F 34-47 14-24 127-166/73-102 99-100 cor-rrr lungs bilateral rhonchi abd soft, nt ext no edema Labs pending Microbiology 01/19/18 08:10 Blood - Peripheral Venous Blood Culture - Preliminary NO GROWTH OBTAINED AFTER 72 HOURS, INCUBATION TO CONTINUE FOR 2 DAYS. 01/19/18 10:00 Sputum - Endotracheal Suction W/O Vent Gram Stain - Final 01/19/18 10:00 Sputum - Endotracheal Suction W/O Vent Sputum Culture - Final NORMAL RESPIRATORY RONI 01/19/18 04:00 Sputum - Expectorated Gram Stain - Final 01/19/18 04:00 Sputum - Expectorated Sputum Culture - Preliminary NORMAL RESPIRATORY RONI 01/19/18 00:25 Blood - Peripheral Venous Blood Culture - Preliminary NO GROWTH OBTAINED AFTER 48 HOURS, INCUBATION TO CONTINUE FOR 3 DAYS. 01/20/18 10:00 Nasopharyngeal Swab Respiratory Syncytial Virus Ag - Final 01/19/18 04:00 Urine For Antigen Detection Legionella Antigen - Final 01/19/18 04:00 Urine For Antigen Detection Streptococcus pneumoniae Antigen (M - Final a/p pneumococcal pneumonia day #4 antibiotics afebrile switch to cefuroxime repeat cxray abnormal lfts will switch off ceftriaxone although abnl lfts preceded the switch to ceftriacone seizures MR
--- NOTE | 2018-01-22 09:10 | PN ---
Progress Note (short form) - Note Progress Note: GI Nurse told me this morning that Ms. Braxton's G-Tube "popped out" last night. It apparently was placed back in by the nurse however it "popped out again" and no other interventions were attempted such a brown tube placement. on exam: closed stoma. and 18Fr low profile G-Tube could not be replaced Imp: Dislodged G-tube with closed stoma Plan: Will need G-Tube replaced. IR vs. endoscopically. Care takers / decision makers will need to be informed Dr. Sotelo resumes coverage 01/23 Problem List - Problems (1) Elevated liver enzymes Code(s): R74.8 - ABNORMAL LEVELS OF OTHER SERUM ENZYMES (2) Diarrhea Code(s): R19.7 - DIARRHEA, UNSPECIFIED
--- NOTE | 2018-01-22 09:20 | PN ---
Progress Note (short form) - Note Progress Note: s: awake this morning, not communicating Tele: HR high 30s-low 40s, episodes of HR 70s-90s o: Vital Signs Period Temp Pulse Resp BP Sys/Herman Pulse Ox Last 24 Hr 98.2 F-98.5 F 34-47 14-22 140-166/74-102 100 Current Medications Generic Name Dose Route Start Last Admin Trade Name Freq PRN Reason Stop Dose Admin Albuterol/Ipratropium 1 amp 01/19/18 05:39 01/21/18 20:23 Duoneb - NEB 1 amp Q4H PRN Administration respiratory distress Baclofen 5 mg 01/19/18 06:00 01/22/18 06:05 Lioresal - GT 5 mg TID HARIS Administration Chlorhexidine Gluconate 1 applic 01/19/18 22:00 01/21/18 22:15 Hibiclens For Decolonization - TP 1 applic HS HARIS Administration Heparin Sodium (Porcine) 5,000 unit 01/19/18 06:00 01/22/18 06:05 Heparin - SQ 5,000 unit TID HARIS Administration Cefuroxime Sodium 750 mg/ 50 mls @ 100 mls/hr 01/22/18 10:00 01/22/18 11:00 Dextrose IVPB 100 mls/hr Q8H-IV HARIS Administration Levetiracetam 1,500 mg 01/19/18 10:00 01/22/18 11:14 Keppra Oral Solution - GT Not Given BID HARIS Mupirocin 1 applic 01/19/18 10:00 01/22/18 11:00 Bactroban Ointment (For Decolonization) - NS 01/24/18 09:59 1 applic BID HARIS Administration Oxcarbazepine 210 mg 01/19/18 22:00 01/21/18 22:24 Trileptal GT 210 mg HS HARIS Administration Prednisone 40 mg 01/19/18 12:45 01/22/18 11:21 Deltasone - PO Not Given DAILY HARIS Scopolamine HBr 1 patch 01/19/18 10:00 01/22/18 11:00 Transderm-Scop - TD 1 patch Q72H HARIS Administration Senna 1 tab 01/19/18 10:00 01/22/18 11:17 Senna - PO Not Given BID HARIS Topiramate 200 mg 01/19/18 10:00 01/22/18 11:13 Topamax - GT Not Given BID [facility] Assessment/Plan EKG 12/2017 sinus bradycardia, 40 bpm tele: sinus bradycardia 40s-50s bpm with episodes of HR 110s-120s 27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 Bradycardia - sinus bradycardia likely in setting of autonomic dysfunction, hypoxia - may also be medication effect, can be seen with topamax, although patient has been on this at home - patient is hemodynamically stable, no indication for pacing at this point, continue monitoring - tele reviewed, no episodes of pause/heart block; also noted to have episodes of HR >100 suggesting appropriate chronotropic response - continue monitoring on tele, has remained hemodynamically stable PNA - on IV abx per primary team Seizure disorder - stable on keppra, trileptal, topamax Cerebral palsy Spastic quadriplegia - on baclofen Hypernatremia - improving with increased free water
[2018-01-22 09:50] LABS: BASO % 0.2 % (0-2.0); HEMATOCRIT 27.7 % (32.4-45.2); HEMOGLOBIN 9.3 GM/dL (10.7-15.3); LYMPH % 56.1 % (8-40); MCHC 33.6 g/dl (32.0-36.0); MEAN PLT VOLUME 10.8 fl (7.5-11.1); MONO % 6.5 % (3.8-10.2); NEUT % 36.2 % (42.8-82.8); RBC 2.83 M/mm3 (3.60-5.2); RDW 17.8 % (11.6-15.6)
[2018-01-22 10:21] LABS: ALBUMIN 2.8 g/dl (3.4-5.0); ALK PHOS 319 U/L (45-117); ANION GAP 7 (8-16); BILIRUBIN,TOTAL 0.2 mg/dL (0.2-1.0); BLOOD UREA NITROGEN 13 mg/dL (7-18); CALCIUM 8.7 mg/dL (8.5-10.1); CHLORIDE 113 mmol/L (98-107); CO2 25 mmol/L (21-32); CREATININE 0.3 mg/dL (0.55-1.02); GLUCOSE,RANDOM 77 mg/dL (74-106); PHOSPHOROUS 4.7 mg/dL (2.5-4.9); SODIUM 145 mmol/L (136-145); TOT PROT 6.6 g/dl (6.4-8.2)
[2018-01-22 10:25] LABS: BILIRUBIN,DIRECT < 0.2 mg/dL (0.0-0.2); MAGNESIUM 1.8 mg/dL (1.8-2.4); POTASSIUM 4.1 mmol/L (3.5-5.1); SGOT/AST 211 U/L (15-37); SGPT/ALT 567 U/L (12-78)
[2018-01-22] MEDS: CEFUROXIME INJECTION 750 MG in DEXTROSE 5%-WATER - 50 ML IVPB SCH ×2 (11:00→18:52)
[2018-01-22] MEDS: MUPIROCIN 2% TOPICAL OINTMENT FOR DECOLONIZATION NS SCH ×2 (11:00→21:53)
[2018-01-22] MEDS: SCOPOLAMINE HYDROBROMIDE 1 PATCH PATCH.TD72 TD SCH (11:00)
--- NOTE | 2018-01-22 11:02 | PN ---
Progress Note (short form) - Note Progress Note: PULM/CCM SUBJECTIVE: Patient seen and examined in the ICU. Awake. -still marilou but stable BP -LFTs equivical -G tube dislodged and stoma closed before brown could be placed -Na downtrending -otherwise stable, awaiting tele bed. Vital Signs Temp 98.5 F 01/22/18 06:00 Pulse 36 L 01/22/18 06:00 Resp 15 01/22/18 06:00 BP 155/91 01/22/18 06:00 Pulse Ox 100 01/21/18 19:26 Intake & Output 01/21/18 01/21/18 01/22/18 11:59 23:59 11:59 Intake Total 1575 1084 609 Balance 1575 1084 609 Weight 51.6 kg 52.787 kg Intake: IV 531 Left Hand #22g 01/19 531 IVPB 100 Tube Feeding 504 475 294 Tube Irrigant 540 509 315 Other: Voiding Method Incontinent Incontinent Incontinent # Unmeasured Voids Void 2 1 Bowel Movement Yes Yes Yes # Bowel Movements 2 2 1 Weight Measurement Method [facility] Total Bilirubin 0.2 mg/dL (0.2-1.0) 01/22/18 09:40 Direct Bilirubin < 0.2 mg/dL (0.0-0.2) 01/22/18 09:40 AST 211 U/L (15-37) H 01/22/18 09:40 ALT 567 U/L (12-78) H 01/22/18 09:40 Alkaline Phosphatase 319 U/L (45-117) H D 01/22/18 09:40 Albumin 2.8 g/dl (3.4-5.0) L 01/22/18 09:40 CBC, BMP 01/22/18 09:40 01/22/18 09:40 GENERAL: Awake, non-verbal, no respiratory distress. HEAD: Normal with no signs of trauma. EYES: Pupils equal, round and reactive to light, conjunctiva clear. EARS, NOSE, THROAT: some drooling and pooling of oral secretions LUNGS: Bilateral coarse breath sounds, no wheezing HEART: Regular rate and rhythm, normal S1 and S2. ABDOMEN: Soft, not distended. No pain on palp. PEG dislodged and unfortuately stoma closed EXTREMITIES: 2+ pulses, warm. No peripheral edema., contracted Active Medications Albuterol/Ipratropium (Duoneb -) 1 amp NEB Q4H PRN PRN Reason: respiratory distress Last Admin: 01/21/18 20:23 Dose: 1 amp Baclofen (Lioresal -) 5 mg GT TID [facility] Last Admin: 01/22/18 06:05 Dose: 5 mg Chlorhexidine Gluconate (Hibiclens For Decolonization -) 1 applic TP HS [facility] Last Admin: 01/21/18 22:15 Dose: 1 applic Heparin Sodium (Porcine) (Heparin -) 5,000 unit SQ TID [facility] Last Admin: 01/22/18 06:05 Dose: 5,000 unit Cefuroxime Sodium 750 mg/ (Dextrose) 50 mls @ 100 mls/hr IVPB Q8H-IV [facility] Levetiracetam (Keppra Oral Solution -) 1,500 mg GT BID [facility] Last Admin: 01/21/18 22:15 Dose: 1,500 mg Mupirocin (Bactroban Ointment (For Decolonization) -) 1 applic NS BID [facility] Stop: 01/24/18 09:59 Last Admin: 01/21/18 22:14 Dose: 1 applic Oxcarbazepine (Trileptal) 210 mg GT [facility] Last Admin: 01/21/18 22:24 Dose: 210 mg Prednisone (Deltasone -) 40 mg PO DAILY [facility] Last Admin: 01/21/18 09:45 Dose: 40 mg Scopolamine HBr (Transderm-Scop -) 1 patch TD Q72H [facility] Last Admin: 01/19/18 10:55 Dose: 1 patch Senna (Senna -) 1 tab PO BID [facility] Last Admin: 01/21/18 22:16 Dose: Not Given Topiramate (Topamax -) 200 mg GT BID [facility] Last Admin: 01/21/18 22:16 Dose: 200 mg ASSESSMENT/PLAN: Acute Respiratory Distress due to possible Aspiration Pneumonitis R/O HCAP (?) Component of Pulmonary Vascular congestion Seizure D/O Spastic Cerebral Palsy Bradycardia: (?) due to autonomic dysfunction +/- medication effect Acute Liver Injury---NEWMAN on US strep pneumo AG + ABX per ID ---Ceftriaxone O2 as needed Aspiration precautions Follow CXR Minimize IVF , free water being repleted Steroids BD TX OK for Telemetry monitoring today Yudelka ACNP [id number]
[2018-01-22] MEDS: TOPIRAMATE 200 MG TABLET (FP) GT SCH ×2 (11:13→21:54)
[2018-01-22] MEDS: levETIRAcetam 500 MG/5 ML ORAL SOLUTION (UNIT-DOSE CUPS) GT SCH ×2 (11:14→21:53)
[2018-01-22] MEDS: SENNOSIDES 8.6MG TABLET (FP) PO SCH ×2 (11:17→21:53)
[2018-01-22 11:19] LABS: PLATELET COUNT 166 K/MM3 (134-434)
[2018-01-22] MEDS: predniSONE 20 MG TABLET (UD) PO SCH ×2 (11:21→14:49)
--- NOTE | 2018-01-22 13:32 | PN ---
Progress Note (short form) - Note Progress Note: reevaluated G-Tube site. Attempted a smaller 16fr replacement balloon g-tube through stoma. there was still resistance. I used a 14fr. brown catheter that was able to be placed through the stoma with very mild resistance. I was then able to place the 16fr. balloon replacement G-Tube through the stoma. Obtain stat gastrograffin G-Tube study to assess G-tube position Keep abdominal binder in place to prevent tube dislodgement Do not use until position confirmed Problem List - Problems (1) Elevated liver enzymes Code(s): R74.8 - ABNORMAL LEVELS OF OTHER SERUM ENZYMES (2) Diarrhea Code(s): R19.7 - DIARRHEA, UNSPECIFIED
--- NOTE | 2018-01-22 14:43 | PN ---
Progress Note (short form) - Note Progress Note: G-Tube study shows G-Tube in place without extravasation. OK to use. Aspiration precautions. Keep abdominal binder in place to prevent tube dislodgement. Problem List - Problems (1) Elevated liver enzymes Code(s): R74.8 - ABNORMAL LEVELS OF OTHER SERUM ENZYMES (2) Diarrhea Code(s): R19.7 - DIARRHEA, UNSPECIFIED
[2018-01-22] MEDS ORDERED: PT OWN MED DRAWER 7, Y5N ONE ×3 (14:46→21:47)
--- NOTE | 2018-01-22 21:28 | PN ---
Physical Exam: SUBJECTIVE: Patient seen and examined in ICU. OBJECTIVE: Vital Signs Period Temp Pulse Resp BP Sys/Herman Pulse Ox Last 24 Hr 95.2 F-98.5 F 34-54 14-26 114-165/68-102 100-100 GENERAL: The patient is sleeping but arousable, responds to verbal stimuli. LUNGS: Mild expiratory wheezing HEART: Regular rate and rhythm, S1, S2 ABDOMEN: Soft, nontender, nondistended; feeding tube, surrounding skin intact EXTREMITIES: 2+ pulses, warm, well-perfused, no edema. Laboratory Results - last 24 hr 01/21/18 01/21/18 01/22/18 09:20 09:20 09:40 WBC 6.0 RBC 2.83 L Hgb 9.3 L Hct 27.7 L MCV 98.0 H MCH 33.0 MCHC 33.6 RDW 17.8 H Plt Count 166 MPV 10.8 Absolute Neuts (auto) 2.2 Neutrophils % 36.2 L Lymphocytes % 56.1 H Monocytes % 6.5 Eosinophils % 1.0 D Basophils % 0.2 Nucleated RBC % 0 Sodium Potassium Chloride Carbon Dioxide Anion Gap BUN Creatinine Creat Clearance w eGFR POC Glucometer Random Glucose Calcium Phosphorus Magnesium Total Bilirubin Direct Bilirubin AST ALT Alkaline Phosphatase Total Protein Albumin Hepatitis A Ab Total Negative Hep Bs Antigen Negative Hep Bs Antibody Non reactive Hep B Core Total Ab Negative Hep C Ab Diagnostic 0.1 Liver Fibrosis Interp 01/22/18 01/22/18 09:40 12:08 WBC RBC Hgb Hct MCV MCH MCHC RDW Plt Count MPV Absolute Neuts (auto) Neutrophils % Lymphocytes % Monocytes % Eosinophils % Basophils % Nucleated RBC % Sodium 145 Potassium 4.1 Chloride 113 H Carbon Dioxide 25 Anion Gap 7 L BUN 13 Creatinine 0.3 L Creat Clearance w eGFR > 60 POC Glucometer 115.44587 Random Glucose 77 Calcium 8.7 Phosphorus 4.7 Magnesium 1.8 Total Bilirubin 0.2 Direct Bilirubin < 0.2 AST 211 H ALT 567 H Alkaline Phosphatase 319 H D Total Protein 6.6 Albumin 2.8 L Hepatitis A Ab Total Hep Bs Antigen Hep Bs Antibody Hep B Core Total Ab Hep C Ab Diagnostic Liver Fibrosis Interp Active Medications Generic Name Dose Route Start Last Admin Trade Name Freq PRN Reason Stop Dose Admin Albuterol/Ipratropium 1 amp 01/19/18 05:39 01/21/18 20:23 Duoneb - NEB 1 amp Q4H PRN Administration respiratory distress Baclofen 5 mg 01/19/18 06:00 01/22/18 14:48 Lioresal - GT 5 mg TID HARIS Administration Chlorhexidine Gluconate 1 applic 01/19/18 22:00 01/21/18 22:15 Hibiclens For Decolonization - TP 1 applic HS HARIS Administration Heparin Sodium (Porcine) 5,000 unit 01/19/18 06:00 01/22/18 14:49 Heparin - SQ 5,000 unit TID HARIS Administration Cefuroxime Sodium 750 mg/ 50 mls @ 100 mls/hr 01/22/18 10:00 01/22/18 18:52 Dextrose IVPB 100 mls/hr Q8H-IV HARIS Administration Levetiracetam 1,500 mg 01/19/18 10:00 01/22/18 11:14 Keppra Oral Solution - GT Not Given BID HARIS Mupirocin 1 applic 01/19/18 10:00 01/22/18 11:00 Bactroban Ointment (For Decolonization) - NS 01/24/18 09:59 1 applic BID HARIS Administration Oxcarbazepine 210 mg 01/19/18 22:00 01/21/18 22:24 Trileptal GT 210 mg HS HARIS Administration Prednisone 40 mg 01/19/18 12:45 01/22/18 14:49 Deltasone - PO 40 mg DAILY HARIS Administration Scopolamine HBr 1 patch 01/19/18 10:00 01/22/18 11:00 Transderm-Scop - TD 1 patch Q72H HARIS Administration Senna 1 tab 01/19/18 10:00 01/22/18 11:17 Senna - PO Not Given BID HARIS Topiramate 200 mg 01/19/18 10:00 01/22/18 11:13 Topamax - GT Not Given BID [facility]IS ASSESSMENT/PLAN: 27 year-old female, [place] resident, with a PMH of cerebral palsy, severe mental retardation, spastic quadriplegia, GERD, seizure disorder, and recurrent pneumonia. Feeding tube dislodged last night. Strep pneumonia/HCAP --afebrile, WBC 6.0k --urine antigen positive for strep pneumoniae --ceftriaxone (day #3) --duonebs --ID following Bradycardia --HR 30s-40s at times --per cardiology: likely due to autonomic dysfunction, hypoxia, more notable when patient is sleeping --BP is stable, no indication for pacing at this point --continue monitoring on tele Seizure disorder --stable --continue Keppra, trileptal, Topamax Cerebral palsy Spastic quadriplegia --continue baclofen Functional quadriplegia --fully dependent for all ADLs Elevated transaminases --US abdomen shows hepatomegaly, diffuse fatty liver --hepatitis panel negative --GI following Hypernatremia --trended to wnl --continue free water 55mL/hr Feeding tube dislodgement --repositioned by GI, Audrey carrera, JS for use FEN Fluids/Nutrition: Jevity 1.5 @ 42mL/hr which is goal; free water 55mL/hr Electrolytes: replete as indicated; K.4, Mg>2 DVT prophylaxis: subq heparin Dispo: continues to require ICU level care. Full code. Visit type - Emergency Visit Emergency Visit: Yes ED Registration Date: 01/19/18 Care time: The patient presented to the Emergency Department on the above date and was hospitalized for further evaluation of their emergent condition. - New Patient This patient is new to me today: No - Critical Care Critical Care patient: Yes Total Critical Care Time (in minutes): 35 Critical Care Statement: The care of this patient involved high complexity decision making to prevent further life threatening deterioration of the patient 's condition and/or to evaluate & treat vital organ system(s) failure or risk of failure.
[2018-01-22] MEDS ORDERED: MAGNESIUM 2GM/50ML STERILE WATER IVPB IVPB ONE (21:45)
[2018-01-22] MEDS ORDERED: MAGNESIUM 1GM/D5W 100ML - 100 ML IVPB IVPB ONE (21:45)
[2018-01-22] MEDS: OXcarbazepine 300 MG/5 ML 250 ML BULK BOTTLE GT SCH (21:54)
[2018-01-22] MEDS: CHLORHEXIDINE GLUCONATE 4% CLEANSER FOR DECOLONIZATION TP SCH (22:06)
[2018-01-23] MEDS ORDERED: PT OWN MED DRAWER 7, Y5N ONE ×4 (01:10→22:53)
[2018-01-23] MEDS: CEFUROXIME INJECTION 750 MG in DEXTROSE 5%-WATER - 50 ML IVPB SCH ×2 (01:13→10:46)
[2018-01-23] MEDS: ALBUTEROL SO4 2.5/IPRATROPIUM 0.5 INH SOL 3 ML VIAL.NEB. NEB PRN ×2 (04:47→10:47)
[2018-01-23] MEDS: HEPARIN NA (PORCINE) 5,000 UNITS/ML 1ML VIAL SQ SCH ×3 (05:44→23:48)
[2018-01-23] MEDS: BACLOFEN 10 MG TABLET (FP) GT SCH ×3 (05:44→23:47)
[2018-01-23 05:47] LABS: HEMOGLOBIN 9.8 GM/dL (10.7-15.3); MCH 32.9 pg (25.7-33.7); MCHC 33.8 g/dl (32.0-36.0); MEAN CELL VOLUME 97.5 fl (80-96); MEAN PLT VOLUME 9.9 fl (7.5-11.1); PLATELET COUNT 214 K/MM3 (134-434); RBC 2.98 M/mm3 (3.60-5.2); RDW 17.2 % (11.6-15.6); WHITE BLOOD COUNT 4.9 K/mm3 (4.0-10.0)
[2018-01-23 06:54] LABS: ANION GAP 7 (8-16); BLOOD UREA NITROGEN 13 mg/dL (7-18); CALCIUM 8.5 mg/dL (8.5-10.1); CHLORIDE 111 mmol/L (98-107); CO2 27 mmol/L (21-32); CREATININE 0.4 mg/dL (0.55-1.02); GLUCOSE,RANDOM 103 mg/dL (74-106); SODIUM 145 mmol/L (136-145)
--- NOTE | 2018-01-23 09:22 | PN ---
Progress Note (short form) - Note Progress Note: alert nad gtube replaced yesterday Vital Signs Period Temp Pulse Resp BP Sys/Herman Pulse Ox Last 24 Hr 95.2 F-97.4 F 38-60 16-27 89-142/50-86 100-100 cor-rrr lungs decreased bs at bases abd soft,nt +GT ext no edema CBC, BMP 01/23/18 05:30 01/23/18 05:30 lfts not repeated today Microbiology 01/19/18 00:25 Blood - Peripheral Venous Blood Culture - Preliminary NO GROWTH OBTAINED AFTER 96 HOURS, INCUBATION TO CONTINUE FOR 1 DAYS. 01/19/18 08:10 Blood - Peripheral Venous Blood Culture - Preliminary NO GROWTH OBTAINED AFTER 96 HOURS, INCUBATION TO CONTINUE FOR 1 DAYS. 01/19/18 04:00 Urine - Urine Clean Catch Urine Culture - Final Contaminated: Please Repeat 01/19/18 04:00 Sputum - Expectorated Gram Stain - Final 01/19/18 04:00 Sputum - Expectorated Sputum Culture - Final NORMAL RESPIRATORY RONI 01/19/18 10:00 Sputum - Endotracheal Suction W/O Vent Gram Stain - Final 01/19/18 10:00 Sputum - Endotracheal Suction W/O Vent Sputum Culture - Final NORMAL RESPIRATORY RONI 01/20/18 10:00 Nasopharyngeal Swab Respiratory Syncytial Virus Ag - Final 01/19/18 04:00 Urine For Antigen Detection Legionella Antigen - Final 01/19/18 04:00 Urine For Antigen Detection Streptococcus pneumoniae Antigen (M - Final a/p pneumococcal pneumonia day #5 antibiotics afebrile can switch to po ceftin 500 bid for another 48 hours abnormal lfts ?meds-doubt antibiotics as lefts were abnormal before the ceftriaxone now on cefuroxime repeat lfts today ordered seizures MR please call back if needed
[2018-01-23] MEDS: predniSONE 20 MG TABLET (UD) PO SCH (10:46)
[2018-01-23] MEDS: SENNOSIDES 8.6MG TABLET (FP) PO SCH ×2 (10:46→23:46)
[2018-01-23] MEDS: TOPIRAMATE 200 MG TABLET (FP) GT SCH ×2 (10:47→23:46)
[2018-01-23] MEDS: levETIRAcetam 500 MG/5 ML ORAL SOLUTION (UNIT-DOSE CUPS) GT SCH ×2 (10:47→23:48)
[2018-01-23] MEDS: MUPIROCIN 2% TOPICAL OINTMENT FOR DECOLONIZATION NS SCH (10:48)
--- NOTE | 2018-01-23 10:48 | EKG ---
Test Reason : Blood Pressure : / mmHG Vent. Rate : 040 BPM Atrial Rate : 040 BPM P-R Int : 142 ms QRS Dur : 080 ms QT Int : 444 ms P-R-T Axes : 003 063 042 degrees QTc Int : 361 ms MARKED SINUS BRADYCARDIA ABNORMAL ECG WHEN COMPARED WITH ECG OF 19-JAN-2018 00:16, VENT. RATE HAS DECREASED BY 67 BPM T WAVE VARIATION Confirmed by QUIN BENTON MD ([id number]) on 01/23/2018 10:48:26 AM Referred By: Confirmed By:QUIN BENTON MD
--- NOTE | 2018-01-23 11:03 | PN ---
Progress Note (short form) - Note Progress Note: No events. NAD. Awake. G-tube intact, w/o leak, bleeding at the track. Benign abdominal exam. Moderate transaminitis which is likely multifactorial in nature (NEWMAN, medications, acute infection). Continue current care, avoid/minimize hepatotoxic medications, monitor liver enzymes.
--- NOTE | 2018-01-23 11:10 | PN ---
Teaching Attending Note Name of Resident: Madhu Sweet ATTENDING PHYSICIAN STATEMENT I saw and evaluated the patient. I reviewed the resident's note and discussed the case with the resident. I agree with the resident's findings and plan as documented. SUBJECTIVE: Patient seen and examined in the ICU. Awake. Non-verbal. NAD on NC O2. Events from the weekend noted. Intake & Output 01/20/18 01/21/18 01/22/18 01/23/18 23:59 23:59 23:59 23:59 Intake Total 1496 2659 1464 1094 Balance 1496 2659 1464 1094 Weight 111 lb 11.2 oz 113 lb 12.136 oz 116 lb 6 oz 54 lb 1.6 oz Last Vital Signs Temp Pulse Resp BP Pulse Ox 96.7 F L 57 L 26 H 104/66 100 01/23/18 06:00 01/23/18 08:00 01/23/18 08:00 01/23/18 08:00 01/23/18 08:36 Active Medications Albuterol/Ipratropium (Duoneb -) 1 amp NEB Q4H PRN PRN Reason: respiratory distress Last Admin: 01/23/18 10:47 Dose: 1 amp Baclofen (Lioresal -) 5 mg GT TID [facility] Last Admin: 01/23/18 05:44 Dose: 5 mg Chlorhexidine Gluconate (Hibiclens For Decolonization -) 1 applic TP HS [facility] Last Admin: 01/22/18 22:06 Dose: 1 applic Heparin Sodium (Porcine) (Heparin -) 5,000 unit SQ TID [facility] Last Admin: 01/23/18 05:44 Dose: 5,000 unit Cefuroxime Sodium 750 mg/ (Dextrose) 50 mls @ 100 mls/hr IVPB Q8H-IV [facility] Last Admin: 01/23/18 10:46 Dose: 100 mls/hr Levetiracetam (Keppra Oral Solution -) 1,500 mg GT BID [facility] Last Admin: 01/23/18 10:47 Dose: 1,500 mg Mupirocin (Bactroban Ointment (For Decolonization) -) 1 applic NS BID [facility] Stop: 01/24/18 09:59 Last Admin: 01/23/18 10:48 Dose: 1 applic Oxcarbazepine (Trileptal) 210 mg GT HS [facility] Last Admin: 01/22/18 21:54 Dose: 210 mg Prednisone (Deltasone -) 40 mg PO DAILY [facility] Last Admin: 01/23/18 10:46 Dose: 40 mg Scopolamine HBr (Transderm-Scop -) 1 patch TD Q72H [facility] Last Admin: 01/22/18 11:00 Dose: 1 patch Senna (Senna -) 1 tab PO BID [facility] Last Admin: 01/23/18 10:46 Dose: 1 tab Topiramate (Topamax -) 200 mg GT BID [facility] Last Admin: 01/23/18 10:47 Dose: 200 mg GENERAL: Awake, non-verbal, no respiratory distress. HEAD: Normal with no signs of trauma. EYES: Pupils equal, round and reactive to light, conjunctiva clear. EARS, NOSE, THROAT: Oropharynx with copious secretions LUNGS: Bilateral coarse breath sounds, no wheezing HEART: Regular rate and rhythm, normal S1 and S2. ABDOMEN: Soft, not distended. PEG tube in place, nonerythematous skin surrounding PEG tube site. EXTREMITIES: 2+ pulses, warm. No peripheral edema. Laboratory Results - last 24 hr 01/22/18 01/22/18 01/23/18 09:40 12:08 05:30 WBC 4.9 RBC 2.98 L Hgb 9.8 L Hct 29.0 L MCV 97.5 H MCH 32.9 MCHC 33.8 RDW 17.2 H Plt Count 166 214 D MPV 10.8 9.9 Sodium Potassium Chloride Carbon Dioxide Anion Gap BUN Creatinine Creat Clearance w eGFR POC Glucometer 115.62262 Random Glucose Calcium 01/23/18 05:30 WBC RBC Hgb Hct MCV MCH MCHC RDW Plt Count MPV Sodium 145 Potassium 4.0 Chloride 111 H Carbon Dioxide 27 Anion Gap 7 L BUN 13 Creatinine 0.4 L Creat Clearance w eGFR > 60 POC Glucometer Random Glucose 103 Calcium 8.5 ASSESSMENT/PLAN: Acute Respiratory Distress due to possible Aspiration Pneumonitis R/O HCAP Resolving Pulmonary Vascular congestion Seizure D/O Spastic Cerebral Palsy Bradycardia: (?) due to autonomic dysfunction +/- medication effect Transaminitis ABX per ID O2 as needed Aspiration precautions Follow final cultures Monitor off IVF Follow LFTs BD [place] Floor Dr Ruffin
[2018-01-23 11:59] VITALS: BMI 25.9
[2018-01-23 12:13] LABS: ALBUMIN 2.8 g/dl (3.4-5.0); BILIRUBIN,DIRECT < 0.2 mg/dL (0.0-0.2); BILIRUBIN,TOTAL 0.2 mg/dL (0.2-1.0); SGOT/AST 153 U/L (15-37); TOT PROT 6.2 g/dl (6.4-8.2)
[2018-01-23 12:14] LABS: ALK PHOS 343 U/L (45-117)
[2018-01-23 12:16] LABS: SGPT/ALT 521 U/L (12-78)
--- NOTE | 2018-01-23 13:39 | PN ---
Progress Note (short form) - Note Progress Note: s: alert, not communicating Tele: HR 50s-60s, occasional episodes of bradycardia 30s-40s o: Vital Signs Period Temp Pulse Resp BP Sys/Herman Pulse Ox Last 24 Hr 96.5 F-97.4 F 42-61 18-27 89-132/50-83 100-100 Current Medications Generic Name Dose Route Start Last Admin Trade Name Freq PRN Reason Stop Dose Admin Albuterol/Ipratropium 1 amp 01/19/18 05:39 01/21/18 20:23 Duoneb - NEB 1 amp Q4H PRN Administration respiratory distress Baclofen 5 mg 01/19/18 06:00 01/22/18 06:05 Lioresal - GT 5 mg TID [facility] Administration Chlorhexidine Gluconate 1 applic 01/19/18 22:00 01/21/18 22:15 Hibiclens For Decolonization - TP 1 applic HS [facility] Administration Heparin Sodium (Porcine) 5,000 unit 01/19/18 06:00 01/22/18 06:05 Heparin - SQ 5,000 unit TID [facility] Administration Cefuroxime Sodium 750 mg/ 50 mls @ 100 mls/hr 01/22/18 10:00 01/22/18 11:00 Dextrose IVPB 100 mls/hr Q8H-IV [facility] Administration Levetiracetam 1,500 mg 01/19/18 10:00 01/22/18 11:14 Keppra Oral Solution - GT Not Given BID [facility] Mupirocin 1 applic 01/19/18 10:00 01/22/18 11:00 Bactroban Ointment (For Decolonization) - NS 01/24/18 09:59 1 applic BID [facility] Administration Oxcarbazepine 210 mg 01/19/18 22:00 01/21/18 22:24 Trileptal GT 210 mg HS [facility] Administration Prednisone 40 mg 01/19/18 12:45 01/22/18 11:21 Deltasone - PO Not Given DAILY [facility] Scopolamine HBr 1 patch 01/19/18 10:00 01/22/18 11:00 Transderm-Scop - TD 1 patch Q72H [facility] Administration Senna 1 tab 01/19/18 10:00 01/22/18 11:17 Senna - PO Not Given BID [facility] Topiramate 200 mg 01/19/18 10:00 01/22/18 11:13 Topamax - GT Not Given BID [facility] Assessment/Plan EKG 12/2017 sinus bradycardia, 40 bpm tele: sinus bradycardia 40s-50s bpm with episodes of HR 110s-120s 27 year-old female, [place] resident, with a PMH of cerebral palsy, severe mental retardation, spastic quadriplegia, GERD, seizure disorder, and recurrent pneumonia. Bradycardia - sinus bradycardia likely in setting of autonomic dysfunction, hypoxia, pt also noted to be hypothermic - may also be medication effect, can be seen with topamax, although patient has been on this at home - patient is hemodynamically stable, no indication for pacing at this point, continue monitoring - improving, rates 50s-60s on tele, has occasional episodes of tachycardia suggesting in tact chronotropic response PNA - on IV abx per primary team Seizure disorder - stable on keppra, trileptal, topamax Cerebral palsy Spastic quadriplegia - on baclofen Hypernatremia - improving with increased free water
--- NOTE | 2018-01-23 14:57 | PN ---
Physical Exam: SUBJECTIVE: Patient seen and examined today in bed. Resting in no apparent distress. Still has coughing spells. Suctioning prn. OBJECTIVE: Vital Signs Period Temp Pulse Resp BP Sys/Herman Pulse Ox Last 24 Hr 96.5 F-97.4 F 42-61 18-27 89-132/50-83 100-100 GENERAL: Nonverbal, Nonresponsive. EYES: Upward gazing. ENT: Ears normal, nares patent, oropharynx clear without exudates, moist mucous membranes.. LUNGS: Coarse breath sounds throughout. B/L rhonchi. HEART: RRR ABDOMEN: Soft, No HSM, ND EXTREMITIES: Contractures upper/Lower extremities NEUROLOGICAL: Cerebral palsy, M.R SKIN: Multiple Petechiae over extremities. Laboratory Results - last 24 hr 01/22/18 01/23/18 01/23/18 12:08 05:30 05:30 WBC 4.9 RBC 2.98 L Hgb 9.8 L Hct 29.0 L MCV 97.5 H MCH 32.9 MCHC 33.8 RDW 17.2 H Plt Count 214 D MPV 9.9 Sodium 145 Potassium 4.0 Chloride 111 H Carbon Dioxide 27 Anion Gap 7 L BUN 13 Creatinine 0.4 L Creat Clearance w eGFR > 60 POC Glucometer [id number] Random Glucose 103 Calcium 8.5 Total Bilirubin 0.2 Direct Bilirubin < 0.2 AST 153 H ALT 521 H Alkaline Phosphatase 343 H D Total Protein 6.2 L Albumin 2.8 L 01/23/18 05:30 WBC RBC Hgb Hct MCV MCH MCHC RDW Plt Count MPV Sodium Potassium Chloride Carbon Dioxide Anion Gap BUN Creatinine Creat Clearance w eGFR POC Glucometer Random Glucose Calcium Total Bilirubin Cancelled Direct Bilirubin Cancelled AST Cancelled ALT Cancelled Alkaline Phosphatase Cancelled Total Protein Cancelled Albumin Cancelled Active Medications Generic Name Dose Route Start Last Admin Trade Name Freq PRN Reason Stop Dose Admin Albuterol/Ipratropium 1 amp 01/19/18 05:39 01/23/18 10:47 Duoneb - NEB 1 amp Q4H PRN Administration respiratory distress Baclofen 5 mg 01/19/18 06:00 01/23/18 14:16 Lioresal - GT 5 mg TID [facility] Administration Cefuroxime Axetil 500 mg 01/23/18 22:00 Ceftin - PO BID [facility] Chlorhexidine Gluconate 1 applic 01/19/18 22:00 01/22/18 22:06 Hibiclens For Decolonization - TP 1 applic HS [facility] Administration Heparin Sodium (Porcine) 5,000 unit 01/19/18 06:00 01/23/18 14:15 Heparin - SQ 5,000 unit TID [facility] Administration Levetiracetam 1,500 mg 01/19/18 10:00 01/23/18 10:47 Keppra Oral Solution - GT 1,500 mg BID [facility] Administration Mupirocin 1 applic 01/19/18 10:00 01/23/18 10:48 Bactroban Ointment (For Decolonization) - NS 01/24/18 09:59 1 applic BID [facility] Administration Oxcarbazepine 210 mg 01/19/18 22:00 01/22/18 21:54 Trileptal GT 210 mg HS [facility] Administration Prednisone 40 mg 01/19/18 12:45 01/23/18 10:46 Deltasone - PO 40 mg DAILY [facility] Administration Scopolamine HBr 1 patch 01/19/18 10:00 01/22/18 11:00 Transderm-Scop - TD 1 patch Q72H [facility] Administration Senna 1 tab 01/19/18 10:00 01/23/18 10:46 Senna - PO 1 tab BID [facility] Administration Topiramate 200 mg 01/19/18 10:00 01/23/18 10:47 Topamax - GT 200 mg BID [facility] Administration ASSESSMENT/PLAN: 27 y/o female w/ pmh of GERD, cerebral palsy, congenital quadriplegia, spastic quadriparesis, cerebral palsy, severe MR, non verbal and non communicative at baseline, seizure d/o, recurrent pneumonia from [facility] came to [facility] ED due to respirtory distress. At [facility], patient had audible coarse, labored breathing and cough that was productive of light-yellow colored sputum. Patient was saturating 88% on 2L nasal cannula, and had chills. Neuro:Seizure D/O Oxcarbazepine 210 mg GT Topiramate 200 mg GT BID Levetiracetam 1,500 mg GT BID Pulm: Aspiration Pneumonia vs, Aspiration Pneumonitis? I.D on board Chest X-Ray 01/20: Lungs slightly better aerated. Duoneb 1 amp NEB Q4H PRN for Respiratory Distress Urine Strep Pneumo antigen POSITIVE Ceftriaxone Switched to Cefuroxamine Aspiration precautions G.I AST->153 Today ALT->521 Today Alk Phos->343 Today RUQ Ultrasound---->Trace Ascites, Hepatomegaly and diffuse fatty infiltration of liver. G-Tube dislodged over weekend. Dr Archuleta replaced tube with 16 Fr, Abdomal X- Ray shows tube to be properly placed. Cardio: Episodes of Bradycardia Cardiology-Dr Rosa on board Etiology of bradycardia unknown. May be due to topamax or autonomic dysfunction or hypoxia. Pt also noted to be hypothermic, discussed with Dr Rosa that marilou could be result of this. FEN No Fluids Monitor Electrolytes Tube Feed Jevity DVT ppx: Heparin 5,000 U SQ TID Dispo: Pt to be transferred to med-surg Visit type - Emergency Visit Emergency Visit: Yes ED Registration Date: 01/19/18 Care time: The patient presented to the Emergency Department on the above date and was hospitalized for further evaluation of their emergent condition. - New Patient This patient is new to me today: No - Critical Care Critical Care patient: Yes Total Critical Care Time (in minutes): 36 Critical Care Statement: The care of this patient involved high complexity decision making to prevent further life threatening deterioration of the patient 's condition and/or to evaluate & treat vital organ system(s) failure or risk of failure.
[2018-01-23] MEDS ORDERED: ALBUTEROL SO4 2.5/IPRATROPIUM 0.5 INH SOL 3 ML VIAL.NEB. NEB PRN ×2 (15:15→16:05)
[2018-01-23] MEDS ORDERED: MAGNESIUM 2GM/50ML STERILE WATER IVPB IVPB ONE ×2 (15:15→16:05)
--- NOTE | 2018-01-23 15:19 | PN ---
Physical Exam: SUBJECTIVE: Patient seen and examined in ICU. She is awake , appears comfortable OBJECTIVE: Vital Signs Period Temp Pulse Resp BP Sys/Herman Pulse Ox Last 24 Hr 96.5 F-97.4 F 42-61 18-27 89-132/50-83 100-100 PE Neuro: alert, awake, non verbal Pulm: wet cough, diffuse rhonci + nc CV: S1 s2 rrr Abd: + Peg tube cdi Ex: mild pedal edema, + contractures Laboratory Results - last 24 hr 01/22/18 01/23/18 01/23/18 12:08 05:30 05:30 WBC 4.9 RBC 2.98 L Hgb 9.8 L Hct 29.0 L MCV 97.5 H MCH 32.9 MCHC 33.8 RDW 17.2 H Plt Count 214 D MPV 9.9 Sodium 145 Potassium 4.0 Chloride 111 H Carbon Dioxide 27 Anion Gap 7 L BUN 13 Creatinine 0.4 L Creat Clearance w eGFR > 60 POC Glucometer 115.45862 Random Glucose 103 Calcium 8.5 Total Bilirubin 0.2 Direct Bilirubin < 0.2 AST 153 H ALT 521 H Alkaline Phosphatase 343 H D Total Protein 6.2 L Albumin 2.8 L Active Medications Generic Name Dose Route Start Last Admin Trade Name Freq PRN Reason Stop Dose Admin Albuterol/Ipratropium 1 amp 01/23/18 15:15 Duoneb - NEB Q4H PRN respiratory distress Baclofen 5 mg 01/23/18 22:00 Lioresal - GT TID [facility] Cefuroxime Axetil 500 mg 01/23/18 22:00 Ceftin - PO BID [facility] Chlorhexidine Gluconate 1 applic 01/23/18 22:00 Hibiclens For Decolonization - TP HS [facility] Heparin Sodium (Porcine) 5,000 unit 01/23/18 22:00 Heparin - SQ TID [facility] Levetiracetam 1,500 mg 01/23/18 22:00 Keppra Oral Solution - GT BID [facility] Magnesium Sulfate 2 gm 01/23/18 15:15 Magnesium Sulf 2 G/50 Ml Bag IVPB 01/23/18 15:16 ONCE ONE Oxcarbazepine 210 mg 01/23/18 22:00 Trileptal GT HS [facility] Prednisone 40 mg 01/24/18 10:00 Deltasone - PO DAILY [facility] Scopolamine HBr 1 patch 08/01/18 10:00 Transderm-Scop - TD Q72H [facility] Senna 1 tab 01/23/18 22:00 Senna - PO BID [facility] Topiramate 200 mg 01/23/18 22:00 Topamax - GT BID [facility] Microbiology 01/19/18 00:25 Blood - Peripheral Venous Blood Culture - Preliminary NO GROWTH OBTAINED AFTER 96 HOURS, INCUBATION TO CONTINUE FOR 1 DAYS. 01/19/18 08:10 Blood - Peripheral Venous Blood Culture - Preliminary NO GROWTH OBTAINED AFTER 96 HOURS, INCUBATION TO CONTINUE FOR 1 DAYS. 01/19/18 04:00 Urine - Urine Clean Catch Urine Culture - Final Contaminated: Please Repeat 01/19/18 04:00 Sputum - Expectorated Gram Stain - Final 01/19/18 04:00 Sputum - Expectorated Sputum Culture - Final NORMAL RESPIRATORY RONI 01/19/18 10:00 Sputum - Endotracheal Suction W/O Vent Gram Stain - Final 01/19/18 10:00 Sputum - Endotracheal Suction W/O Vent Sputum Culture - Final NORMAL RESPIRATORY RONI 01/20/18 10:00 Nasopharyngeal Swab Respiratory Syncytial Virus Ag - Final 01/19/18 04:00 Urine For Antigen Detection Legionella Antigen - Final 01/19/18 04:00 Urine For Antigen Detection Streptococcus pneumoniae Antigen (M - Final Assessment: 27 year old female, [place] resident, with a PMH of cerebral palsy , severe mental retardation, spastic quadriplegia, GERD, seizure disorder, and recurrent pneumonia admitted with dislodged feeding tube and sob. Plan: 1. Strep pneumonia/HCAP - Cefuroxmine stopped - Continue ceftin 50mg BID 2. Bradycardia -H R 30s-40s at times - Per cardiology: likely due to autonomic dysfunction, hypoxia, more notable when patient is sleeping, no indication for pacing at this time 3. Seizure disorder - stable - Continue Keppra, trileptal, Topamax 4. Cerebral palsy, Spastic quadriplegia - Continue baclofen 5. Functional quadriplegia - Fully dependent for all ADLs 6. Elevated transaminases - Down trending today, no over cause, was elevated prior to abx - US abdomen shows hepatomegaly, diffuse fatty liver - GI seeing 7. Hypernatremia - Remains WNL - Continue free water 55mL/hr 8. Feeding tube dislodgement - Repositioned by GI, cleared for usage - Jevity 1.5 @ 42mL/hr which is goal; free water 55mL/hr 9. DVT ppx - Heparin sq Dispo: continues to require ICU level care. Full code. Visit type - Emergency Visit Emergency Visit: Yes ED Registration Date: 01/19/18 Care time: The patient presented to the Emergency Department on the above date and was hospitalized for further evaluation of their emergent condition. - New Patient This patient is new to me today: Yes Date on this admission: 01/23/18 - Critical Care Critical Care patient: No
[2018-01-23] MEDS ORDERED: BACLOFEN 10 MG TABLET (FP) GT SCH (22:00)
[2018-01-23] MEDS ORDERED: levETIRAcetam 500 MG/5 ML ORAL SOLUTION (UNIT-DOSE CUPS) GT SCH (22:00)
[2018-01-23] MEDS ORDERED: OXcarbazepine 300 MG/5 ML 250 ML BULK BOTTLE GT SCH (22:00)
[2018-01-23] MEDS ORDERED: SENNOSIDES 8.6MG TABLET (FP) PO SCH (22:00)
[2018-01-23] MEDS ORDERED: CHLORHEXIDINE GLUCONATE 4% CLEANSER FOR DECOLONIZATION TP SCH (22:00)
[2018-01-23] MEDS ORDERED: HEPARIN NA (PORCINE) 5,000 UNITS/ML 1ML VIAL SQ SCH (22:00)
[2018-01-23] MEDS ORDERED: CEFUROXIME AXETIL 500 MG TABLET PO SCH (22:00)
[2018-01-23] MEDS ORDERED: TOPIRAMATE 200 MG TABLET (FP) GT SCH (22:00)
[2018-01-23] MEDS: OXcarbazepine 300 MG/5 ML 250 ML BULK BOTTLE GT SCH (23:47)
[2018-01-23] MEDS: CEFUROXIME AXETIL 500 MG TABLET PO SCH (23:48)
[2018-01-24] MEDS: BACLOFEN 10 MG TABLET (FP) GT SCH ×3 (06:07→22:44)
[2018-01-24] MEDS: HEPARIN NA (PORCINE) 5,000 UNITS/ML 1ML VIAL SQ SCH ×3 (06:07→22:43)
[2018-01-24 07:34] LABS: HEMATOCRIT 27.5 % (32.4-45.2); HEMOGLOBIN 9.4 GM/dL (10.7-15.3); MCH 33.3 pg (25.7-33.7); MCHC 34.2 g/dl (32.0-36.0); MEAN CELL VOLUME 97.6 fl (80-96); MEAN PLT VOLUME 9.4 fl (7.5-11.1); PLATELET COUNT 243 K/MM3 (134-434); RBC 2.82 M/mm3 (3.60-5.2); RDW 17.4 % (11.6-15.6); WHITE BLOOD COUNT 6.1 K/mm3 (4.0-10.0)
[2018-01-24 08:02] LABS: CHLORIDE 110 mmol/L (98-107); SODIUM 144 mmol/L (136-145)
[2018-01-24 08:18] LABS: ALBUMIN 2.7 g/dl (3.4-5.0); ALK PHOS 292 U/L (45-117); ANION GAP 8 (8-16); BILIRUBIN,TOTAL 0.2 mg/dL (0.2-1.0); BLOOD UREA NITROGEN 13 mg/dL (7-18); CALCIUM 8.8 mg/dL (8.5-10.1); CO2 26 mmol/L (21-32); CREATININE 0.2 mg/dL (0.55-1.02); GLUCOSE,RANDOM 88 mg/dL (74-106); PHOSPHOROUS 3.6 mg/dL (2.5-4.9); SGPT/ALT 344 U/L (12-78); TOT PROT 6.1 g/dl (6.4-8.2)
[2018-01-24 08:24] LABS: MAGNESIUM 1.9 mg/dL (1.8-2.4); SGOT/AST 58 U/L (15-37)
[2018-01-24] MEDS ORDERED: PT OWN MED DRAWER 7, Y5N ONE ×3 (09:05→22:41)
[2018-01-24] MEDS: CEFUROXIME AXETIL 500 MG TABLET PO SCH ×2 (09:21→22:43)
[2018-01-24] MEDS: TOPIRAMATE 200 MG TABLET (FP) GT SCH ×2 (09:21→22:44)
[2018-01-24] MEDS: levETIRAcetam 500 MG/5 ML ORAL SOLUTION (UNIT-DOSE CUPS) GT SCH ×2 (09:21→22:44)
[2018-01-24] MEDS: SENNOSIDES 8.6MG TABLET (FP) PO SCH ×2 (09:21→22:43)
[2018-01-24] MEDS: predniSONE 20 MG TABLET (UD) PEG SCH (09:21)
[2018-01-24] MEDS ORDERED: predniSONE 20 MG TABLET (UD) PO SCH (10:00)
--- NOTE | 2018-01-24 10:11 | PN ---
Physical Exam: SUBJECTIVE: Patient seen and examined. Appears calm, no distress, no overnight events noted OBJECTIVE: Vital Signs Period Temp Pulse Resp BP Sys/Herman Pulse Ox Last 24 Hr 96.9 F-97.9 F 51-67 22-24 110-139/64-86 94 PE Neuro: alert, awake, non verbal , smiling Pulm: diffuse rhonci throughout +NC CV: s1 s2 rrr Abd: + Peg tube cdi Ex: mild pedal edema, + contractures Laboratory Results - last 24 hr 01/23/18 01/23/18 01/24/18 05:30 05:30 06:15 WBC RBC Hgb Hct MCV MCH MCHC RDW Plt Count MPV Sodium 145 144 Potassium 4.0 4.0 Chloride 111 H 110 H Carbon Dioxide 27 26 Anion Gap 7 L 8 BUN 13 13 Creatinine 0.4 L 0.2 L Creat Clearance w eGFR > 60 > 60 Random Glucose 103 88 Calcium 8.5 8.8 Phosphorus 3.6 Magnesium 1.9 Total Bilirubin 0.2 Cancelled 0.2 Direct Bilirubin < 0.2 Cancelled AST 153 H Cancelled 58 H ALT 521 H Cancelled 344 H Alkaline Phosphatase 343 H D Cancelled 292 H D Total Protein 6.2 L Cancelled 6.1 L Albumin 2.8 L Cancelled 2.7 L 01/24/18 06:15 WBC 6.1 RBC 2.82 L Hgb 9.4 L Hct 27.5 L MCV 97.6 H MCH 33.3 MCHC 34.2 RDW 17.4 H Plt Count 243 MPV 9.4 Sodium Potassium Chloride Carbon Dioxide Anion Gap BUN Creatinine Creat Clearance w eGFR Random Glucose Calcium Phosphorus Magnesium Total Bilirubin Direct Bilirubin AST ALT Alkaline Phosphatase Total Protein Albumin Active Medications Generic Name Dose Route Start Last Admin Trade Name Freq PRN Reason Stop Dose Admin Albuterol/Ipratropium 1 amp 01/23/18 16:05 Duoneb - NEB Q4H PRN respiratory distress Baclofen 5 mg 01/23/18 22:00 01/24/18 06:07 Lioresal - GT 5 mg TID [facility] Administration Cefuroxime Axetil 500 mg 01/23/18 22:00 01/24/18 09:21 Ceftin - PO 500 mg BID [facility] Administration Heparin Sodium (Porcine) 5,000 unit 01/23/18 22:00 01/24/18 06:07 Heparin - SQ 5,000 unit TID [facility] Administration Levetiracetam 1,500 mg 01/23/18 22:00 01/24/18 09:21 Keppra Oral Solution - GT 1,500 mg BID [facility] Administration Oxcarbazepine 210 mg 01/23/18 22:00 01/23/18 23:47 Trileptal GT 210 mg HS [facility] Administration Prednisone 40 mg 01/24/18 10:00 01/24/18 09:21 Deltasone - PEG 40 mg DAILY [facility] Administration Scopolamine HBr 1 patch 01/25/18 10:00 Transderm-Scop - TD Q3D@1000 [facility] Senna 1 tab 01/23/18 22:00 01/24/18 09:21 Senna - PO 1 tab BID [facility] Administration Topiramate 200 mg 01/23/18 22:00 01/24/18 09:21 Topamax - GT 200 mg BID [facility] Administration Assessment: 27 year old female, [place] resident, with a PMH of cerebral palsy , severe mental retardation, spastic quadriplegia, GERD, seizure disorder, and recurrent pneumonia admitted with dislodged feeding tube and sob. Plan: 1. Strep pneumonia/HCAP - Continue ceftin 50mg BID (day 2) - Prednisone 40mg daily 2. Bradycardia - Stable - Per cardiology: likely due to autonomic dysfunction, hypoxia, more notable when patient is sleeping, no indication for pacing at this time 3. Seizure disorder - Stable - Continue Keppra, trileptal, Topamax 4. Cerebral palsy, Spastic quadriplegia - Continue baclofen 5. Functional quadriplegia - Fully dependent for all ADLs 6. Elevated transaminases - Continues to down trending, cont to monitor - US abdomen shows hepatomegaly, diffuse fatty liver - GI seeing 7. Hypernatremia - Remains WNL - Continue free water 55mL/hr 8. Feeding tube dislodgement - Repositioned by GI 01/22 - Jevity 1.5 @ 42mL/hr which is goal; free water 55mL/hr 9. DVT ppx - Heparin sq Visit type - Emergency Visit Emergency Visit: Yes ED Registration Date: 01/19/18 Care time: The patient presented to the Emergency Department on the above date and was hospitalized for further evaluation of their emergent condition. - New Patient This patient is new to me today: No - Critical Care Critical Care patient: No
--- NOTE | 2018-01-24 11:21 | PN ---
Progress Note (short form) - Note Progress Note: PULMONARY Pt nonverbal. No fevers recorded. Saturating well. Vital Signs Period Temp Pulse Resp BP Sys/Herman Pulse Ox Last 24 Hr 96.9 F-97.9 F 51-67 22-24 110-139/64-86 94 Gen: breathing nonlabored Heart: RRR Lung: decreased breath sounds at the bases Abd: soft, nontender Ext: contracted, no edema CBC, BMP 01/24/18 06:15 01/24/18 06:15 Active Medications Albuterol/Ipratropium (Duoneb -) 1 amp NEB Q4H PRN PRN Reason: respiratory distress Baclofen (Lioresal -) 5 mg GT TID [facility] Last Admin: 01/24/18 06:07 Dose: 5 mg Cefuroxime Axetil (Ceftin -) 500 mg PO BID [facility] Last Admin: 01/24/18 09:21 Dose: 500 mg Heparin Sodium (Porcine) (Heparin -) 5,000 unit SQ TID [facility] Last Admin: 01/24/18 06:07 Dose: 5,000 unit Levetiracetam (Keppra Oral Solution -) 1,500 mg GT BID [facility] Last Admin: 01/24/18 09:21 Dose: 1,500 mg Oxcarbazepine (Trileptal) 210 mg GT HS [facility] Last Admin: 01/23/18 23:47 Dose: 210 mg Prednisone (Deltasone -) 40 mg PEG DAILY [facility] Last Admin: 01/24/18 09:21 Dose: 40 mg Scopolamine HBr (Transderm-Scop -) 1 patch TD Q3D@1000 [facility] Senna (Senna -) 1 tab PO BID [facility] Last Admin: 01/24/18 09:21 Dose: 1 tab Topiramate (Topamax -) 200 mg GT BID [facility] Last Admin: 01/24/18 09:21 Dose: 200 mg A/P Pneumonia Cerebral Palsy Seizure Disorder Functional Quadriplegia Mental Retardation GERD - complete antibiotics - prednisone taper - inhaled bronchodilators - O2 to keep SpO2 >90% - enteral feeds - aspiration precautions - DVT prophylaxis
[2018-01-24] MEDS: OXcarbazepine 300 MG/5 ML 250 ML BULK BOTTLE GT SCH (22:44)
[2018-01-25] MEDS: HEPARIN NA (PORCINE) 5,000 UNITS/ML 1ML VIAL SQ SCH ×3 (05:20→22:51)
[2018-01-25] MEDS: BACLOFEN 10 MG TABLET (FP) GT SCH ×3 (05:21→22:51)
[2018-01-25 09:55] LABS: ALBUMIN 2.7 g/dl (3.4-5.0); ANION GAP 9 (8-16); BLOOD UREA NITROGEN 14 mg/dL (7-18); CALCIUM 8.9 mg/dL (8.5-10.1); CHLORIDE 111 mmol/L (98-107); CO2 23 mmol/L (21-32); CREATININE 0.3 mg/dL (0.55-1.02); GLUCOSE,RANDOM 102 mg/dL (74-106); SGPT/ALT 241 U/L (12-78); SODIUM 143 mmol/L (136-145)
[2018-01-25 09:57] LABS: ALK PHOS 265 U/L (45-117); BILIRUBIN,TOTAL 0.3 mg/dL (0.2-1.0); TOT PROT 6.3 g/dl (6.4-8.2)
[2018-01-25] MEDS ORDERED: PT OWN MED DRAWER 7, Y5N ONE ×3 (10:00→22:39)
[2018-01-25] MEDS ORDERED: SCOPOLAMINE HYDROBROMIDE 1 PATCH PATCH.TD72 TD SCH ×2 (10:00)
[2018-01-25 10:09] LABS: POTASSIUM 4.9 mmol/L (3.5-5.1); SGOT/AST 52 U/L (15-37)
[2018-01-25] MEDS: predniSONE 20 MG TABLET (UD) PEG SCH (10:10)
[2018-01-25] MEDS: TOPIRAMATE 200 MG TABLET (FP) GT SCH ×2 (10:10→22:51)
[2018-01-25] MEDS: SENNOSIDES 8.6MG TABLET (FP) PO SCH (10:10)
[2018-01-25] MEDS: levETIRAcetam 500 MG/5 ML ORAL SOLUTION (UNIT-DOSE CUPS) GT SCH ×2 (10:11→22:51)
[2018-01-25] MEDS: CEFUROXIME AXETIL 500 MG TABLET PO SCH (10:12)
--- NOTE | 2018-01-25 14:26 | PN ---
Physical Exam: SUBJECTIVE: Patient seen and examined. No acute issues overnight. OBJECTIVE: Vital Signs Period Temp Pulse Resp BP Sys/Herman Pulse Ox Last 24 Hr 97 F-97.9 F 48-63 16-16 113-178/61-83 98-98 PE Neuro: alert, awake, non verbal , smiling Pulm: diffuse rhonci throughout +NC CV: s1 s2 rrr Abd: + Peg tube cdi Ex: mild pedal edema, + contractures Laboratory Results - last 24 hr 01/25/18 09:10 Sodium 143 Potassium 4.9 Chloride 111 H Carbon Dioxide 23 Anion Gap 9 BUN 14 Creatinine 0.3 L Creat Clearance w eGFR > 60 Random Glucose 102 Calcium 8.9 Total Bilirubin 0.3 AST 52 H ALT 241 H Alkaline Phosphatase 265 H D Total Protein 6.3 L Albumin 2.7 L Active Medications Generic Name Dose Route Start Last Admin Trade Name Freq PRN Reason Stop Dose Admin Albuterol/Ipratropium 1 amp 01/23/18 16:05 Duoneb - NEB Q4H PRN respiratory distress Baclofen 5 mg 01/23/18 22:00 01/25/18 05:21 Lioresal - GT 5 mg TID HARIS Administration Heparin Sodium (Porcine) 5,000 unit 01/23/18 22:00 01/25/18 05:20 Heparin - SQ 5,000 unit TID HARIS Administration Levetiracetam 1,500 mg 01/23/18 22:00 01/25/18 10:11 Keppra Oral Solution - GT 1,500 mg BID HARIS Administration Oxcarbazepine 210 mg 01/23/18 22:00 01/24/18 22:44 Trileptal GT 210 mg HS HARIS Administration Prednisone 40 mg 01/24/18 10:00 01/25/18 10:10 Deltasone - PEG 40 mg DAILY HARIS Administration Scopolamine HBr 1 patch 01/25/18 10:00 01/25/18 10:12 Transderm-Scop - TD 1 patch Q3D@1000 HARIS Administration Senna 1 tab 01/23/18 22:00 01/25/18 10:10 Senna - PO 1 tab BID HARIS Administration Topiramate 200 mg 01/23/18 22:00 01/25/18 10:10 Topamax - GT 200 mg BID HARIS Administration Assessment: 27 year old female, [place] resident, with a PMH of cerebral palsy , severe mental retardation, spastic quadriplegia, GERD, seizure disorder, and recurrent pneumonia admitted with dislodged feeding tube and sob. Plan: 1. Strep pneumonia/HCAP - Completed 7 days abx - Prednisone 40mg daily, steroiod taper sent to pharmacy - Pt will require home oxygen, pt desats into mid 80's 2. Bradycardia - Stable - Per cardiology: likely due to autonomic dysfunction, hypoxia, more notable when patient is sleeping, no indication for pacing at this time 3. Seizure disorder - Stable - Continue Keppra, trileptal, Topamax 4. Cerebral palsy, Spastic quadriplegia - Continue baclofen 5. Functional quadriplegia - Fully dependent for all ADLs 6. Elevated transaminases - Continues to down trending, cont to monitor - US abdomen shows hepatomegaly, diffuse fatty liver - GI seeing 7. Hypernatremia - Remains WNL - Continue free water 55mL/hr 8. Feeding tube dislodgement - Repositioned by GI 01/22 - Jevity 1.5 @ 42mL/hr which is goal; free water 55mL/hr 9. DVT ppx - Heparin sq Dispo: - Pt will require home o2, paper work initiated for this, delivery tomorrow, can DC to [place] tomorrow, report given to PCP PRAKASH Chan [phone] Visit type - Emergency Visit Emergency Visit: Yes ED Registration Date: 01/19/18 Care time: The patient presented to the Emergency Department on the above date and was hospitalized for further evaluation of their emergent condition. - New Patient This patient is new to me today: No - Critical Care Critical Care patient: No
--- NOTE | 2018-01-25 14:38 | PN ---
Progress Note (short form) - Note Progress Note: Liver enzymes trend and viral serology results noted.
--- NOTE | 2018-01-25 14:47 | PN ---
Progress Note, Physician History of Present Illness: pulmonary sleeping,no distress - Current Medication List Current Medications: Active Medications Albuterol/Ipratropium (Duoneb -) 1 amp NEB Q4H PRN PRN Reason: respiratory distress Baclofen (Lioresal -) 5 mg GT TID [facility] Last Admin: 01/25/18 14:38 Dose: 5 mg Heparin Sodium (Porcine) (Heparin -) 5,000 unit SQ TID [facility] Last Admin: 01/25/18 14:38 Dose: 5,000 unit Levetiracetam (Keppra Oral Solution -) 1,500 mg GT BID [facility] Last Admin: 01/25/18 10:11 Dose: 1,500 mg Oxcarbazepine (Trileptal) 210 mg GT HS [facility] Last Admin: 01/24/18 22:44 Dose: 210 mg Prednisone (Deltasone -) 40 mg PEG DAILY [facility] Last Admin: 01/25/18 10:10 Dose: 40 mg Scopolamine HBr (Transderm-Scop -) 1 patch TD Q3D@1000 [facility] Last Admin: 01/25/18 10:12 Dose: 1 patch Senna (Senna -) 1 tab PO BID [facility] Last Admin: 01/25/18 10:10 Dose: 1 tab Topiramate (Topamax -) 200 mg GT BID [facility] Last Admin: 01/25/18 10:10 Dose: 200 mg - Objective Vital Signs: Vital Signs Temperature 97.2 F L 01/25/18 14:12 Pulse Rate 63 01/25/18 14:12 Respiratory Rate 16 01/25/18 14:12 Blood Pressure 178/67 01/25/18 14:12 O2 Sat by Pulse Oximetry (%) 98 01/25/18 07:00 Constitutional: Yes: Well Nourished, Other (sleeping) Eyes: Yes: WNL HENT: Yes: WNL Neck: Yes: WNL Cardiovascular: Yes: Regular Rate and Rhythm, S1, S2 Respiratory: Yes: Diminished Gastrointestinal: Yes: Normal Bowel Sounds, Soft Extremities: Yes: Other (contracted) Edema: No Labs: CBC, BMP 01/25/18 09:10 INR, PTT INR 1.01 (0.82-1.09) 01/19/18 06:50 Problem List - Problems (1) Pneumonia Code(s): J18.9 - PNEUMONIA, UNSPECIFIED ORGANISM Qualifiers: Pneumonia type: aspiration pneumonia Aspiration pneumonia type: unspecified Laterality: unspecified laterality Lung location: unspecified part of lung Qualified Code(s): J69.0 - Pneumonitis due to inhalation of food and vomit (2) Cerebral palsy Code(s): G80.9 - CEREBRAL PALSY, UNSPECIFIED (3) Functional quadriplegia Code(s): R53.2 - FUNCTIONAL QUADRIPLEGIA (4) Mental retardation Code(s): F79 - UNSPECIFIED INTELLECTUAL DISABILITIES (5) Seizure disorder Code(s): G40.909 - EPILEPSY, UNSP, NOT INTRACTABLE, WITHOUT STATUS EPILEPTICUS Assessment/Plan A/P Pneumonia clinically improved Cerebral Palsy Seizure Disorder Functional Quadriplegia Mental Retardation GERD - prednisone taper - inhaled bronchodilators - O2 to keep SpO2 >90% - enteral feeds - aspiration precautions - DVT prophylaxis DR MATHEWS
--- NOTE | 2018-01-25 15:32 | PN ---
Progress Note (short form) - Note Progress Note: s: alert, not communicating o: Current Medications Generic Name Dose Route Start Last Admin Trade Name Freq PRN Reason Stop Dose Admin Albuterol/Ipratropium 1 amp 01/23/18 16:05 Duoneb - NEB Q4H PRN respiratory distress Baclofen 5 mg 01/23/18 22:00 01/25/18 14:38 Lioresal - GT 5 mg TID HARIS Administration Heparin Sodium (Porcine) 5,000 unit 01/23/18 22:00 01/25/18 14:38 Heparin - SQ 5,000 unit TID HARIS Administration Levetiracetam 1,500 mg 01/23/18 22:00 01/25/18 10:11 Keppra Oral Solution - GT 1,500 mg BID HARIS Administration Oxcarbazepine 210 mg 01/23/18 22:00 01/24/18 22:44 Trileptal GT 210 mg HS HARIS Administration Prednisone 40 mg 01/24/18 10:00 01/25/18 10:10 Deltasone - PEG 40 mg DAILY HARIS Administration Scopolamine HBr 1 patch 01/25/18 10:00 01/25/18 10:12 Transderm-Scop - TD 1 patch Q3D@1000 HARIS Administration Senna 1 tab 01/23/18 22:00 01/25/18 10:10 Senna - PO 1 tab BID HARIS Administration Topiramate 200 mg 01/23/18 22:00 01/25/18 10:10 Topamax - GT 200 mg BID HARIS Administration Vital Signs Period Temp Pulse Resp BP Sys/Herman Pulse Ox Last 24 Hr 97 F-97.9 F 48-63 16-16 113-178/67-83 98-98 nad no jvd rrr s1s2 no mrg cta bl ant, poor effort no jaunidce diaphoresis no le e/c/c not communicating CBC, BMP 01/24/18 06:15 01/25/18 09:10 Assessment/Plan EKG 12/2017 sinus bradycardia, 40 bpm 27 year-old female, [place] resident, with a PMH of cerebral palsy, severe mental retardation, spastic quadriplegia, GERD, seizure disorder, and recurrent pneumonia. Bradycardia - sinus bradycardia likely in setting of autonomic dysfunction, hypoxia, pt also noted to be hypothermic - may also be medication effect, can be seen with topamax, although patient has been on this at home - patient is hemodynamically stable, no indication for pacing PNA - abx per primary team Cerebral palsy Spastic quadriplegia - on baclofen Hypernatremia - improving with increased free water
[2018-01-25] MEDS ORDERED: guaiFENesin 600 MG TABLET.ER (FP) PO SCH (22:00)
[2018-01-25] MEDS: OXcarbazepine 300 MG/5 ML 250 ML BULK BOTTLE GT SCH (22:51)
[2018-01-26] MEDS: SENNOSIDES 8.6MG TABLET (FP) PO SCH ×2 (00:18→09:53)
[2018-01-26] MEDS: BACLOFEN 10 MG TABLET (FP) GT SCH ×2 (06:23→14:29)
[2018-01-26] MEDS: HEPARIN NA (PORCINE) 5,000 UNITS/ML 1ML VIAL SQ SCH ×2 (06:23→14:29)
[2018-01-26] MEDS ORDERED: PT OWN MED DRAWER 7, Y5N ONE ×2 (09:30→10:53)
[2018-01-26 09:48] VITALS: PULSE 57
[2018-01-26] MEDS: levETIRAcetam 500 MG/5 ML ORAL SOLUTION (UNIT-DOSE CUPS) GT SCH (09:52)
[2018-01-26] MEDS: TOPIRAMATE 200 MG TABLET (FP) GT SCH (09:52)
[2018-01-26] MEDS: predniSONE 20 MG TABLET (UD) PEG SCH (09:52)
--- NOTE | 2018-01-26 10:58 | PN ---
Progress Note (short form) - Note Progress Note: PULMONARY Pt nonverbal. No fevers recorded. Vital Signs Period Temp Pulse Resp BP Sys/Herman Pulse Ox Last 24 Hr 97 F-98.4 F 46-63 16-20 102-178/42-73 86-100 Gen: breathing nonlabored Heart: RRR Lung: decreased breath sounds at the bases Abd: soft, nontender Ext: contracted, no edema CBC, BMP 01/24/18 06:15 01/25/18 09:10 Active Medications Albuterol/Ipratropium (Duoneb -) 1 amp NEB Q4H PRN PRN Reason: respiratory distress Baclofen (Lioresal -) 5 mg GT TID [facility] Last Admin: 01/26/18 06:23 Dose: 5 mg Heparin Sodium (Porcine) (Heparin -) 5,000 unit SQ TID [facility] Last Admin: 01/26/18 06:23 Dose: 5,000 unit Levetiracetam (Keppra Oral Solution -) 1,500 mg GT BID [facility] Last Admin: 01/26/18 09:52 Dose: 1,500 mg Oxcarbazepine (Trileptal) 210 mg GT HS [facility] Last Admin: 01/25/18 22:51 Dose: 210 mg Prednisone (Deltasone -) 40 mg PEG DAILY [facility] Last Admin: 01/26/18 09:52 Dose: 40 mg Scopolamine HBr (Transderm-Scop -) 1 patch TD Q3D@1000 [facility] Last Admin: 01/25/18 10:12 Dose: 1 patch Senna (Senna -) 1 tab PO BID [facility] Last Admin: 01/26/18 09:53 Dose: 1 tab Topiramate (Topamax -) 200 mg GT BID [facility] Last Admin: 01/26/18 09:52 Dose: 200 mg A/P Pneumonia Cerebral Palsy Seizure Disorder Functional Quadriplegia Mental Retardation GERD - complete antibiotics - prednisone taper - inhaled bronchodilators - O2 to keep SpO2 >90% - enteral feeds - aspiration precautions - DVT prophylaxis
--- NOTE | 2018-01-26 11:57 | DS ---
Physical Exam: SUBJECTIVE: Patient seen and examined at bedside. Appears quite comfortable. OBJECTIVE: Vital Signs Period Temp Pulse Resp BP Sys/Herman Pulse Ox Last 24 Hr 97.2 F-98.4 F 46-63 16-20 102-178/42-73 86-100 PHYSICAL EXAM GENERAL: The patient is sleeping but arousable, responds to verbal stimuli. LUNGS: Mild expiratory wheezing HEART: Regular rate and rhythm, S1, S2 ABDOMEN: Soft, nontender, nondistended; feeding tube, surrounding skin intact EXTREMITIES: 2+ pulses, warm, well-perfused, no edema. LABS CBCD WBC 6.1 K/mm3 (4.0-10.0) 01/24/18 06:15 RBC 2.82 M/mm3 (3.60-5.2) L 01/24/18 06:15 Hgb 9.4 GM/dL (10.7-15.3) L 01/24/18 06:15 Hct 27.5 % (32.4-45.2) L 01/24/18 06:15 MCV 97.6 fl (80-96) H 01/24/18 06:15 MCHC 34.2 g/dl (32.0-36.0) 01/24/18 06:15 RDW 17.4 % (11.6-15.6) H 01/24/18 06:15 Plt Count 243 K/MM3 (134-434) 01/24/18 06:15 MPV 9.4 fl (7.5-11.1) 01/24/18 06:15 CMP Sodium 143 mmol/L (136-145) 01/25/18 09:10 Potassium 4.9 mmol/L (3.5-5.1) 01/25/18 09:10 Chloride 111 mmol/L (98-107) H 01/25/18 09:10 Carbon Dioxide 23 mmol/L (21-32) 01/25/18 09:10 Anion Gap 9 (8-16) 01/25/18 09:10 BUN 14 mg/dL (7-18) 01/25/18 09:10 Creatinine 0.3 mg/dL (0.55-1.02) L 01/25/18 09:10 Creat Clearance w eGFR > 60 (>60) 01/25/18 09:10 Calcium 8.9 mg/dL (8.5-10.1) 01/25/18 09:10 Total Bilirubin 0.3 mg/dL (0.2-1.0) 01/25/18 09:10 AST 52 U/L (15-37) H 01/25/18 09:10 ALT 241 U/L (12-78) H 01/25/18 09:10 Alkaline Phosphatase 265 U/L (45-117) H D 01/25/18 09:10 Total Protein 6.3 g/dl (6.4-8.2) L 01/25/18 09:10 Albumin 2.7 g/dl (3.4-5.0) L 01/25/18 09:10 HOSPITAL COURSE: Date of Admission:01/19/18 Date of Discharge: 01/26/18 27 year-old female, [facility], with a PMH of cerebral palsy, severe mental retardation, spastic quadriplegia, GERD, seizure disorder, and recurrent pneumonia. Admitted and treated for Strep pneumoniae pneumonia. Strep pneumoniae pneumonia/HCAP --completed course of ceftriaxone and cerufoxime; no further antibiotics --continued duonebs Bradycardia --HR 30s-40s at times --per cardiology: likely due to autonomic dysfunction, hypoxia, more notable when patient is sleeping --BP is stable, no indication for pacing at this point Seizure disorder --stable --continued Keppra, trileptal, Topamax Cerebral palsy Spastic quadriplegia --continued baclofen Functional quadriplegia --fully dependent for all ADLs Elevated transaminases --US abdomen shows hepatomegaly, diffuse fatty liver --have been trending down over past 48 hours Hypernatremia --improved with free water @ 55mL/hr Feeding tube dislodgement x 2 --repositioned by GI FEN Fluids/Nutrition: Jevity 1.5 @ 42mL/hr which is goal; free water 55mL/hr Electrolytes: replete as indicated; K.4, Mg>2 Minutes to complete discharge: 35 Discharge Summary Reason For Visit: HYPOXIA, SEPSIS, PNEUMONIA Current Active Problems Diarrhea (Acute) Condition: Improved - Instructions Diet, Activity, Other Instructions: The patient is being discharged to your facility today. She has completed an antibiotic course for strep pneumoniae pneumonia. No further antibiotics are indicated. She is being discharged on a very slow prednisone taper starting 8/3: 30, 30, 20 , 20, 20, 10, 10, 10, 5, 5, 5, off She will require continuous oxygen. Referrals: Oscar Cheek Jr [Non Staff, Medical] - Disposition: [facility] - Home Medications Comprehensive Discharge Medication List: Ambulatory Orders Albuterol 0.083% Nebulizer Sobeida [Ventolin 0.083% Nebulizer Soln -] 1 neb NEB Q6H PRN 02/05/17 Baclofen 5 mg GT TID 02/05/17 Cholecalciferol (Vitamin D3) [Vitamin D3] 2,000 unit GT DAILY 02/05/17 Lactulose 10 gm GT TID 02/05/17 Levetiracetam 1,500 mg GT BID 02/05/17 Nystatin Ointment [Mycostatin Ointment -] 1 applic TP PRN PRN 02/05/17 OXcarbazepine [Trileptal] 180 mg GT DAILY 02/05/17 OXcarbazepine [Trileptal] 210 mg GT HS 02/05/17 Topiramate 200 mg GT BID 02/05/17 Topiramate [Trokendi Xr] 25 mg GT BID 02/05/17 Albuterol 2.5/Ipratropium 0.5 [Duoneb -] 1 neb NEB Q4H PRN 11/30/17 Diazepam Rectal Gel [Diastat Rectal Gel -] 10 mg AR PRN 11/30/17 Nutritional Supplement [Promote] 120 ml PO ASDIR 11/30/17 Sennosides [Senna] 8.6 mg PO BID 11/30/17 Prednisone 10 mg PO ASDIR #22 tablet 01/25/18 This patient is new to me today: No Emergency Visit: Yes ED Registration Date: 01/19/18 Care time: The patient presented to the Emergency Department on the above date and was hospitalized for further evaluation of their emergent condition. Critical Care patient: No - Discharge Referral Referred to [facility] No
--- NOTE | 2018-01-26 15:33 | PN ---
Progress Note (short form) - Note Progress Note: Called for dislodged G-tube. The G-tube was found to be functional and w/o signs of damage. Reinserted at bedside w/o difficulties, or immediate complications. AXR with gastropgrafin ordered. As discussed with the pt's nurse , the G-tube will not be used until cleared by GI.
[2018-01-26 18:22] VITALS: BP 99/62; TEMP 98.3
[2018-01-27] MEDS ORDERED: predniSONE 10 MG TABLET (UD) PEG SCH (10:00)
== END 2018-01-26 19:20 | disposition home or self-care (01) | DRG 177 ==
LOC: JER 23:10 → JERBED 01-19 03:11 → UNDOADMIN 01-19 05:39 → JERBED 01-19 05:51 → UNDOADMIN 01-19 05:51 → JICU 01-19 07:17 → J5S 01-23 15:18
PROVIDERS: ADMIT Internal Medicine; ATTEND Nurse Practitioner Acute Care
DX: J69.0 Pneumonitis due to inhalation of food and vomit (principal); G80.0 Spastic quadriplegic cerebral palsy; R53.2 Functional quadriplegia; F72 Severe intellectual disabilities; E87.0 Hyperosmolality and hypernatremia; Z43.1 Encounter for attention to gastrostomy; R18.8 Other ascites; J13 Pneumonia due to Streptococcus pneumoniae; K59.00 Constipation, unspecified; G40.909 Epilepsy, unspecified, not intractable, without status epilepticus; K21.9 Gastro-esophageal reflux disease without esophagitis; R74.0 Nonspecific elevation of levels of transaminase and lactic acid dehydrogenase [LDH]; R19.7 Diarrhea, unspecified; R00.1 Bradycardia, unspecified; Q90.9 Down syndrome, unspecified; D69.6 Thrombocytopenia, unspecified; R16.0 Hepatomegaly, not elsewhere classified; K76.0 Fatty (change of) liver, not elsewhere classified
CPT/HCPCS: 36415; 36600; 71045-TC-FY; 71046-TC-FY; 74018-TC-FY; 76705-TC; 80048; 80053; 80076; 81003; 82375; 82550; 82553; 82803; 82962; 83050; 83605; 83735; 84100; 84443; 84484; 84703; 85025; 85027; 85610; 85730; 86704; 86706; 86708; 86803; 87040; 87070; 87086; 87205; 87340; 87420; 87899; 93005; 93010; 94640; 94761; 99283-25; J0475; J1644; J7030; J7620

== ENCOUNTER 2019-05-25 15:20 | Emergency (ER) | payer OTHER ==
[2019-05-25 16:34] VITALS: BP 114/66; PULSE 72; TEMP 97.9; BMI 27.6
--- NOTE | 2019-05-25 19:00 | PDOC ---
History of Present Illness - General Chief Complaint: Injury Stated Complaint: Injury Time Seen by Provider: 05/25/19 16:14 History Source: Other (staff from [facility]) Exam Limitations: Clinical Condition Past History - Past Medical History Allergies/Adverse Reactions: Allergies Allergy/AdvReac Type Severity Reaction Status Date / Time No Known Allergies Allergy Verified 01/18/18 23:26 Home Medications: Ambulatory Orders Albuterol 0.083% Nebulizer Sobeida [Ventolin 0.083% Nebulizer Soln -] 1 amp IH Q8H 03/21/19 Baclofen 5 mg GT TID 03/21/19 Cholecalciferol (Vitamin D3) [Vitamin D3 -] 2,000 unit GT DAILY 03/21/19 Diazepam Rectal Gel [Diastat Rectal Gel -] 10 mg SD PRN PRN 03/21/19 Lactulose (Oral Use) [Cephulac -] 10 gm GT TID 03/21/19 Nutritional Supplement [Promote] 0.5 can GT ACDIN 03/21/19 Nutritional Supplement [Promote] 1 can GT TID 03/21/19 Nystatin/Triamcin [Nystatin-Triamcinolone Cream] 1 appful TP PRN PRN 03/21/19 Oxcarbazepine 210 mg GT BID 03/21/19 Sennosides [Senna -] 1 tab GT BID 03/21/19 Silver Sulfadiazine 1% Top Cr [Silvadene -] 1 appful TP BID 03/21/19 Topiramate 25 mg GT BID 03/21/19 Topiramate 200 mg GT BID 03/21/19 levETIRAcetam [Levetiracetam -] 1,500 mg GT BID 03/21/19 Anemia: No Asthma: No Cancer: No Cardiac Disorders: No CVA: No COPD: No CHF: No Dementia: No GI Disorders: Yes (GERD. GTUBE.) HTN: No Hypercholesterolemia: No Seizures: Yes (EPILEPSY.) - Surgical History Abdominal Surgery: Yes GI Surgery: Yes (GTUBE.) Neurologic Surgery: Yes (SPINAL SX.) - Immunization History Td Vaccination: Yes Immunization Up to Date: Yes - Psycho Social/Smoking Cessation Hx Smoking History: Never smoked Have you smoked in the past 12 months: No Number of Cigarettes Smoked Daily: 0 Information on smoking cessation initiated: No Hx Alcohol Use: No Drug/Substance Use Hx: No Substance Use Type: None Hx Substance Use Treatment: No *Physical Exam - Vital Signs Last Vital Signs Temp Pulse Resp BP Pulse Ox 97.9 F 72 16 114/66 100 05/25/19 15:25 05/25/19 15:25 05/25/19 15:25 05/25/19 15:25 05/25/19 15:25 - Physical Exam On PE, patient appears comfortable Patient appears comfortable when pressing on abdomen B/L hip joints unremarkable, surgical scar noted No skin breakdown/open wounds noted along R hip/buttocks Normal skin color of extremities; no erythema Has old wound along tailbone which is covered with gauze 05/25/19 18:56 General Appearance: No: Apparent Distress ED Treatment Course - RADIOLOGY Radiology Studies Ordered: Category Date Time Status HIP & PELVIS-LEFT [RAD] Stat Radiology 05/25/19 16:26 Completed HIP & PELVIS-RIGHT [RAD] Stat Radiology 05/25/19 16:26 Completed Medical Decision Making - Medical Decision Making 28 y/o F hx of cerebral palsy, severe MR, GERD, spastic guadriplegia, seizures sent from [place] by Dr. Oscar Cheek, due to having r/o R hip fracture/ dislocation. Per nurse Yao from facility, they have noted that when turning patient to R, she appears uncomfortable. Patient is mostly bedbound and staff has not noted any falls. Denies fever, URI sxs, vomiting, diarrhea. Patient has hx of B/L proximal femur fracture s/p ORIF 12/2018. Hip xrays negative for acute pathology No evidence of new pressure ulcers noted Patient appears comfortable When repositioned, patient elicited no grimacing stable for dc 05/25/19 18:58 Discharge - Discharge Information Problems reviewed: Yes Clinical Impression/Diagnosis: Right hip pain Condition: Stable Disposition: HOME - Admission No - Additional Discharge Information Prescription Drug Monitoring Program (I-STOP) results: I-STOP not reviewed - Follow up/Referral - Patient Discharge Instructions Patient Printed Discharge Instructions: DI for Hip Pain Additional Instructions: Thank you for choosing [facility]. It was a pleasure taking care of you. No new fractures or other acute pathology were noted on your xrays Return to the Emergency Department if your symptoms worsen or persist or have other concerning symptoms. - Post Discharge Activity
== END 2019-05-25 21:09 | disposition home or self-care (01) ==
LOC: JER 15:20
DX: M25.551 Pain in right hip (principal); G80.0 Spastic quadriplegic cerebral palsy; F72 Severe intellectual disabilities; G40.909 Epilepsy, unspecified, not intractable, without status epilepticus; K21.9 Gastro-esophageal reflux disease without esophagitis; Z93.1 Gastrostomy status; Z87.81 Personal history of (healed) traumatic fracture; Z74.01 Bed confinement status
CPT/HCPCS: 73523-TC-FY; 99281-25

== ENCOUNTER 2020-08-03 13:00 | Inpatient (IN) | payer OTHER ==
[2020-08-03 14:24] LABS: VENOUS BASE EXCESS -1.1 mmol/L (-2-2); VENOUS O2 SATURATION 54.5 % (70-80); VENOUS PCO2 49.4 mmHg (38-52); VENOUS PH 7.331 (7.310-7.410)
[2020-08-03 14:26] LABS: BASO % 0.1 % (0-2.0); HEMOGLOBIN 11.9 GM/dL (10.7-15.3); LYMPH % 7.7 % (8-40); MCH 33.5 pg (25.7-33.7); MCHC 34.1 g/dl (32.0-36.0); MEAN CELL VOLUME 98.2 fl (80-96); MEAN PLT VOLUME 8.8 fl (7.5-11.1); MONO % 3.8 % (3.8-10.2); NEUT % 88.4 % (42.8-82.8); PLATELET COUNT 181 K/MM3 (134-434); RBC 3.56 M/mm3 (3.60-5.2); RDW 14.3 % (11.6-15.6); WHITE BLOOD COUNT 12.8 K/mm3 (4.0-10.0)
[2020-08-03 14:39] LABS: INR 1.02 (0.83-1.09); PROTHROMBIN TIME (PATIENT) 12.3 SEC (9.7-13.0)
[2020-08-03 14:42] LABS: ACTIVATED PTT 39.9 SECONDS (25.2-36.5)
[2020-08-03 14:43] LABS: CHLORIDE 110 mmol/L (98-107); POTASSIUM 4.5 mmol/L (3.5-5.1); SODIUM 142 mmol/L (136-145)
[2020-08-03 14:45] LABS: ALBUMIN 3.7 g/dl (3.4-5.0); ANION GAP 8 MMOL/L (8-16); CALCIUM 9.8 mg/dL (8.5-10.1); CO2 23 mmol/L (21-32)
[2020-08-03 14:46] LABS: GLUCOSE,RANDOM 74 mg/dL (74-106)
[2020-08-03 14:48] LABS: BILIRUBIN,DIRECT 0.1 mg/dL (0.0-0.2); SGPT/ALT 227 U/L (13-61)
[2020-08-03 14:49] LABS: BLOOD UREA NITROGEN 14.9 mg/dL (7-18); CREATININE 0.5 mg/dL (0.55-1.3); LDH 345 U/L (84-246); SGOT/AST 142 U/L (15-37)
[2020-08-03 14:50] LABS: BILIRUBIN,TOTAL 0.5 mg/dL (0.2-1); TOT PROT 7.9 g/dl (6.4-8.2)
[2020-08-03 14:51] LABS: ALK PHOS 348 U/L (45-117)
[2020-08-03] MEDS ORDERED: VANCOMYCIN 1,000 MG in DEXTROSE 5%-WATER - 250 ML IVPB ONE (15:42)
[2020-08-03] MEDS ORDERED: PIPERACILLIN/TAZOB 4.5 GM 4.5 GM in DEXTROSE 5%-WATER 100 ML IVPB ONE (15:42)
[2020-08-03] MEDS ORDERED: PIPERACILLIN/TAZOB 4.5 GM 4.5 GM/100 ML BAG IVPB ONE (15:46)
[2020-08-03] MEDS ORDERED: VANCOMYCIN 1 GRAM (PRE-DOCKED) 1,000 MG/250 ML BAG IVPB ONE (15:46)
[2020-08-04] MEDS ORDERED: ACETAMINOPHEN 650 MG/20.3 ML ORAL SOLUTION (CUPS) GT PRN (00:05)
[2020-08-04] MEDS ORDERED: diazePAM RECTAL GEL 10 MG KIT (PRE-CALIBRATED) RC PRN (00:18)
[2020-08-04] MEDS ORDERED: DEXAMETHASONE SOD PHOSPHATE 4 MG/1 ML VIAL IVPUSH ONE (00:43)
[2020-08-04] MEDS ORDERED: DEXTROSE 5%-WATER - 50 ML IVPB ONE ×3 (01:22→18:14)
[2020-08-04] MEDS ORDERED: PIPERACILLIN/TAZOBACTAM 3.375 GM VIAL IVPB ONE ×3 (01:22→18:14)
[2020-08-04] MEDS: PIPERACILLIN/TAZOB 3.375 GM 3.375 GM in DEXTROSE 5%-WATER - 50 ML IVPB SCH ×3 (01:29→18:16)
[2020-08-04 02:54] LABS: EPI CELLS 21 /uL (0-25.1); HYALINE CASTS 5 /uL (0-3.1); URINE APPEARANCE CLEAR; URINE BACTERIA 3 /uL (0-1359); URINE BILIRUBIN NEGATIVE (NEGATIVE); URINE COLOR DK YELLOW; URINE GLUCOSE (UA) NEGATIVE (NEGATIVE); URINE KETONE 1+ (NEGATIVE); URINE LEUK ESTERASE 1+ (NEGATIVE); URINE NITRITE NEGATIVE (NEGATIVE); URINE PROTEIN NEGATIVE (NEGATIVE); URINE RBC 270 /uL (0-23.9); URINE WBC 33 /uL (0-25.8)
[2020-08-04] MEDS: BACLOFEN 10 MG TABLET (FP) GT SCH ×3 (06:48→22:14)
[2020-08-04 09:10] LABS: HEMATOCRIT 30.2 % (32.4-45.2); HEMOGLOBIN 10.2 GM/dL (10.7-15.3); MCH 33.6 pg (25.7-33.7); MCHC 33.8 g/dl (32.0-36.0); MEAN CELL VOLUME 99.4 fl (80-96); MEAN PLT VOLUME 8.7 fl (7.5-11.1); PLATELET COUNT 162 K/MM3 (134-434); RBC 3.04 M/mm3 (3.60-5.2); RDW 14.9 % (11.6-15.6); WHITE BLOOD COUNT 8.1 K/mm3 (4.0-10.0)
[2020-08-04 09:18] LABS: INR 1.08 (0.83-1.09); PROTHROMBIN TIME (PATIENT) 13.3 SEC (9.7-13.0)
[2020-08-04 09:20] LABS: ACTIVATED PTT 34.5 SECONDS (25.2-36.5)
[2020-08-04] MEDS ORDERED: PT OWN MED DRAWER 7, Y5N ONE ×3 (09:57→22:08)
[2020-08-04] MEDS ORDERED: TOPIRAMATE 25 MG TABLET CRUSH SCH (10:00)
[2020-08-04] MEDS ORDERED: CHOLECALCIFEROL (VIT D3) 1,000 UNIT (25 MCG) TABLET GT SCH (10:00)
[2020-08-04] MEDS ORDERED: DEXAMETHASONE SOD PHOSPHATE 10 MG/1 ML VIAL IVPUSH SCH (10:00)
[2020-08-04] MEDS: levETIRAcetam 500 MG/5 ML ORAL SOLUTION (UNIT-DOSE CUPS) GT SCH ×2 (10:37→22:15)
[2020-08-04 10:38] LABS: BILIRUBIN,TOTAL 0.4 mg/dL (0.2-1)
[2020-08-04] MEDS: ZINC SULFATE 220 MG CAPSULE (FP) GT SCH (10:40)
[2020-08-04] MEDS: CHOLECALCIFEROL (VIT D SOLUTION) 400 UNIT/1 ML DROPS GT SCH (10:40)
[2020-08-04] MEDS: TOPIRAMATE 200 MG TABLET GT SCH ×2 (10:40→22:15)
[2020-08-04] MEDS: SENNOSIDES 8.8 MG/5 ML BULK BOTTLE GT SCH ×2 (10:41→22:16)
[2020-08-04] MEDS: OXcarbazepine 300 MG/5 ML 250 ML BULK BOTTLE GT SCH ×2 (10:41→22:14)
[2020-08-04 10:42] LABS: BLOOD UREA NITROGEN 10.3 mg/dL (7-18)
[2020-08-04] MEDS: ASCORBIC ACID 500 MG/5 ML UNIT DOSE CUP GT SCH ×2 (10:42→22:16)
[2020-08-04 10:43] LABS: ALBUMIN 3.3 g/dl (3.4-5.0)
[2020-08-04 10:44] LABS: CALCIUM 9.1 mg/dL (8.5-10.1)
[2020-08-04 10:46] LABS: CREATININE 0.5 mg/dL (0.55-1.3); MAGNESIUM 1.8 mg/dL (1.8-2.4); PHOSPHOROUS 3.1 mg/dL (2.5-4.9)
[2020-08-04] MEDS: ENOXAPARIN NA (PORCINE) 40 MG/0.4 ML DISP.SYRIN SQ SCH (14:59)
[2020-08-05] MEDS ORDERED: PIPERACILLIN/TAZOB 3.375 GM 3.375 GM in DEXTROSE 5%-WATER - 50 ML IVPB SCH (02:00)
[2020-08-05] MEDS ORDERED: DEXTROSE 5%-WATER - 50 ML IVPB ONE ×3 (03:00→17:49)
[2020-08-05] MEDS ORDERED: PIPERACILLIN/TAZOBACTAM 3.375 GM VIAL IVPB ONE ×3 (03:00→17:48)
[2020-08-05] MEDS: PIPERACILLIN/TAZOB 3.375 GM 3.375 GM in DEXTROSE 5%-WATER - 50 ML IVPB SCH ×3 (03:03→17:50)
[2020-08-05] MEDS: BACLOFEN 10 MG TABLET (FP) GT SCH ×3 (05:52→21:26)
[2020-08-05 09:23] LABS: BASO % 0.3 % (0-2.0); EOS % 0.8 % (0-4.5); HEMATOCRIT 28.6 % (32.4-45.2); HEMOGLOBIN 9.6 GM/dL (10.7-15.3); LYMPH % 40.2 % (8-40); MCH 33.6 pg (25.7-33.7); MCHC 33.7 g/dl (32.0-36.0); MEAN CELL VOLUME 99.9 fl (80-96); MONO % 9.1 % (3.8-10.2); NEUT % 49.6 % (42.8-82.8); PLATELET COUNT 167 K/MM3 (134-434); RBC 2.86 M/mm3 (3.60-5.2); RDW 14.6 % (11.6-15.6); WHITE BLOOD COUNT 7.7 K/mm3 (4.0-10.0)
[2020-08-05 09:53] LABS: MAGNESIUM 1.5 mg/dL (1.8-2.4)
[2020-08-05 09:55] LABS: PHOSPHOROUS 3.2 mg/dL (2.5-4.9)
[2020-08-05] MEDS ORDERED: PT OWN MED DRAWER 7, Y5N ONE ×2 (10:36→21:14)
[2020-08-05] MEDS: CHOLECALCIFEROL (VIT D SOLUTION) 400 UNIT/1 ML DROPS GT SCH (10:59)
[2020-08-05] MEDS: ENOXAPARIN NA (PORCINE) 40 MG/0.4 ML DISP.SYRIN SQ SCH (10:59)
[2020-08-05] MEDS: OXcarbazepine 300 MG/5 ML 250 ML BULK BOTTLE GT SCH ×2 (10:59→21:27)
[2020-08-05] MEDS: SENNOSIDES 8.8 MG/5 ML BULK BOTTLE GT SCH ×2 (11:00→21:26)
[2020-08-05] MEDS: TOPIRAMATE 200 MG TABLET GT SCH ×2 (11:00→21:26)
[2020-08-05] MEDS: levETIRAcetam 500 MG/5 ML ORAL SOLUTION (UNIT-DOSE CUPS) GT SCH ×2 (11:00→21:26)
[2020-08-05] MEDS: ZINC SULFATE 220 MG CAPSULE (FP) GT SCH (11:00)
[2020-08-05] MEDS: ASCORBIC ACID 500 MG/5 ML UNIT DOSE CUP GT SCH ×2 (11:01→21:27)
[2020-08-05] MEDS ORDERED: MAGNESIUM 1GM/D5W 100ML - 100 ML IVPB IVPB ONE (13:00)
[2020-08-05] MEDS ORDERED: MAGNESIUM SULF 50% (8.12 MEQ/2 ML-1 GM VIAL) IVPB ONE (14:38)
[2020-08-06] MEDS ORDERED: DEXTROSE 5%-WATER - 50 ML IVPB ONE ×3 (00:15→16:56)
[2020-08-06] MEDS ORDERED: PIPERACILLIN/TAZOBACTAM 3.375 GM VIAL IVPB ONE ×3 (00:15→16:56)
[2020-08-06] MEDS: PIPERACILLIN/TAZOB 3.375 GM 3.375 GM in DEXTROSE 5%-WATER - 50 ML IVPB SCH ×3 (01:01→17:01)
[2020-08-06] MEDS: BACLOFEN 10 MG TABLET (FP) GT SCH ×3 (06:00→22:22)
[2020-08-06 09:26] LABS: HEMATOCRIT 28.6 % (32.4-45.2); HEMOGLOBIN 9.8 GM/dL (10.7-15.3); MCH 33.7 pg (25.7-33.7); MCHC 34.2 g/dl (32.0-36.0); MEAN CELL VOLUME 98.4 fl (80-96); MEAN PLT VOLUME 8.6 fl (7.5-11.1); PLATELET COUNT 156 K/MM3 (134-434); RDW 14.5 % (11.6-15.6); WHITE BLOOD COUNT 4.2 K/mm3 (4.0-10.0)
[2020-08-06] MEDS ORDERED: PT OWN MED DRAWER 7, Y5N ONE ×3 (09:29→21:23)
[2020-08-06 09:56] LABS: POTASSIUM 3.6 mmol/L (3.5-5.1)
[2020-08-06 09:59] LABS: CALCIUM 8.7 mg/dL (8.5-10.1)
[2020-08-06 10:03] LABS: CREATININE 0.5 mg/dL (0.55-1.3); PHOSPHOROUS 4.2 mg/dL (2.5-4.9)
[2020-08-06 10:04] LABS: BILIRUBIN,TOTAL 0.7 mg/dL (0.2-1); TOT PROT 6.4 g/dl (6.4-8.2)
[2020-08-06] MEDS: ZINC SULFATE 220 MG CAPSULE (FP) GT SCH (10:04)
[2020-08-06] MEDS: levETIRAcetam 500 MG/5 ML ORAL SOLUTION (UNIT-DOSE CUPS) GT SCH ×2 (10:04→22:22)
[2020-08-06] MEDS: ENOXAPARIN NA (PORCINE) 40 MG/0.4 ML DISP.SYRIN SQ SCH (10:04)
[2020-08-06] MEDS: CHOLECALCIFEROL (VIT D SOLUTION) 400 UNIT/1 ML DROPS GT SCH (10:06)
[2020-08-06] MEDS: MULTIVIT-MINERALS ORAL LIQUID PO SCH (11:34)
[2020-08-06] MEDS: ASCORBIC ACID 500 MG/5 ML UNIT DOSE CUP GT SCH ×2 (11:34→22:23)
[2020-08-06] MEDS: SENNOSIDES 8.8 MG/5 ML BULK BOTTLE GT SCH ×2 (15:05→22:25)
[2020-08-06] MEDS: TOPIRAMATE 200 MG TABLET GT SCH ×2 (15:48→22:22)
[2020-08-06] MEDS: OXcarbazepine 300 MG/5 ML 250 ML BULK BOTTLE GT SCH ×2 (15:48→22:23)
[2020-08-06 16:08] LABS: MYCOPLASMA PNEUMONIAE,IG G AB <100 U/mL (0-99); MYCOPLASMA PNEUMONIAE,IGM AB <770 U/mL (0-769)
[2020-08-07] MEDS ORDERED: PIPERACILLIN/TAZOBACTAM 3.375 GM VIAL IVPB ONE ×4 (01:02→17:25)
[2020-08-07] MEDS ORDERED: DEXTROSE 5%-WATER - 50 ML IVPB ONE ×4 (01:03→17:25)
[2020-08-07] MEDS: PIPERACILLIN/TAZOB 3.375 GM 3.375 GM in DEXTROSE 5%-WATER - 50 ML IVPB SCH ×3 (02:40→17:51)
[2020-08-07] MEDS: BACLOFEN 10 MG TABLET (FP) GT SCH ×3 (06:19→22:58)
[2020-08-07] MEDS ORDERED: PT OWN MED DRAWER 7, Y5N ONE ×2 (10:59→22:49)
[2020-08-07] MEDS: TOPIRAMATE 200 MG TABLET GT SCH ×2 (12:25→23:00)
[2020-08-07] MEDS: levETIRAcetam 500 MG/5 ML ORAL SOLUTION (UNIT-DOSE CUPS) GT SCH ×2 (12:25→22:58)
[2020-08-07] MEDS: MULTIVIT-MINERALS ORAL LIQUID PO SCH (12:26)
[2020-08-07] MEDS: ASCORBIC ACID 500 MG/5 ML UNIT DOSE CUP GT SCH ×2 (12:26→22:59)
[2020-08-07] MEDS: CHOLECALCIFEROL (VIT D SOLUTION) 400 UNIT/1 ML DROPS GT SCH (12:26)
[2020-08-07] MEDS: ENOXAPARIN NA (PORCINE) 40 MG/0.4 ML DISP.SYRIN SQ SCH (12:27)
[2020-08-07] MEDS: ZINC SULFATE 220 MG CAPSULE (FP) GT SCH (12:27)
[2020-08-07] MEDS: SENNOSIDES 8.8 MG/5 ML BULK BOTTLE GT SCH ×2 (12:28→22:59)
[2020-08-07] MEDS: OXcarbazepine 300 MG/5 ML 250 ML BULK BOTTLE GT SCH ×2 (12:29→22:59)
[2020-08-07 14:31] LABS: BASO % 0.3 % (0-2.0); EOS % 1.6 % (0-4.5); HEMATOCRIT 31.1 % (32.4-45.2); HEMOGLOBIN 10.5 GM/dL (10.7-15.3); LYMPH % 53.3 % (8-40); MCH 33.6 pg (25.7-33.7); MCHC 33.6 g/dl (32.0-36.0); MEAN CELL VOLUME 100.1 fl (80-96); MEAN PLT VOLUME 9.3 fl (7.5-11.1); MONO % 9.8 % (3.8-10.2); PLATELET COUNT 178 K/MM3 (134-434); RBC 3.11 M/mm3 (3.60-5.2); RDW 14.2 % (11.6-15.6); WHITE BLOOD COUNT 2.8 K/mm3 (4.0-10.0)
[2020-08-07 14:53] LABS: POTASSIUM 3.3 mmol/L (3.5-5.1)
[2020-08-07 14:56] LABS: BLOOD UREA NITROGEN 15.1 mg/dL (7-18); CALCIUM 8.9 mg/dL (8.5-10.1); MAGNESIUM 1.7 mg/dL (1.8-2.4)
[2020-08-07 14:59] LABS: CREATININE 0.5 mg/dL (0.55-1.3)
[2020-08-07 15:01] LABS: BILIRUBIN,TOTAL 0.4 mg/dL (0.2-1); TOT PROT 6.5 g/dl (6.4-8.2)
[2020-08-08] MEDS ORDERED: PIPERACILLIN/TAZOBACTAM 3.375 GM VIAL IVPB ONE ×3 (01:58→16:31)
[2020-08-08] MEDS ORDERED: DEXTROSE 5%-WATER - 50 ML IVPB ONE ×3 (01:58→16:32)
[2020-08-08] MEDS: PIPERACILLIN/TAZOB 3.375 GM 3.375 GM in DEXTROSE 5%-WATER - 50 ML IVPB SCH ×3 (02:30→18:00)
[2020-08-08] MEDS: BACLOFEN 10 MG TABLET (FP) GT SCH ×3 (06:23→23:36)
[2020-08-08 08:58] LABS: BASO % 0.4 % (0-2.0); EOS % 0.8 % (0-4.5); HEMATOCRIT 29.4 % (32.4-45.2); LYMPH % 54.4 % (8-40); MCH 33.9 pg (25.7-33.7); MCHC 34.1 g/dl (32.0-36.0); MEAN CELL VOLUME 99.4 fl (80-96); MONO % 9.3 % (3.8-10.2); NEUT % 35.1 % (42.8-82.8); PLATELET COUNT 184 K/MM3 (134-434); RBC 2.95 M/mm3 (3.60-5.2); RDW 14.3 % (11.6-15.6); WHITE BLOOD COUNT 2.6 K/mm3 (4.0-10.0)
[2020-08-08 09:21] LABS: POTASSIUM 3.6 mmol/L (3.5-5.1)
[2020-08-08] MEDS ORDERED: PT OWN MED DRAWER 7, Y5N ONE ×2 (09:24→23:28)
[2020-08-08 09:34] LABS: ALBUMIN 2.9 g/dl (3.4-5.0); BLOOD UREA NITROGEN 16.5 mg/dL (7-18); CALCIUM 8.5 mg/dL (8.5-10.1); MAGNESIUM 1.8 mg/dL (1.8-2.4)
[2020-08-08 09:38] LABS: CREATININE 0.4 mg/dL (0.55-1.3)
[2020-08-08 09:39] LABS: BILIRUBIN,TOTAL 0.8 mg/dL (0.2-1); TOT PROT 6.2 g/dl (6.4-8.2)
[2020-08-08] MEDS: ENOXAPARIN NA (PORCINE) 40 MG/0.4 ML DISP.SYRIN SQ SCH (09:55)
[2020-08-08] MEDS: ZINC SULFATE 220 MG CAPSULE (FP) GT SCH (09:56)
[2020-08-08] MEDS: levETIRAcetam 500 MG/5 ML ORAL SOLUTION (UNIT-DOSE CUPS) GT SCH ×2 (09:56→23:36)
[2020-08-08] MEDS: SENNOSIDES 8.8 MG/5 ML BULK BOTTLE GT SCH ×2 (09:57→23:34)
[2020-08-08] MEDS: MULTIVIT-MINERALS ORAL LIQUID PO SCH (09:57)
[2020-08-08] MEDS: TOPIRAMATE 200 MG TABLET GT SCH ×2 (09:57→23:36)
[2020-08-08] MEDS: OXcarbazepine 300 MG/5 ML 250 ML BULK BOTTLE GT SCH ×2 (09:58→23:35)
[2020-08-08] MEDS: CHOLECALCIFEROL (VIT D SOLUTION) 400 UNIT/1 ML DROPS GT SCH (09:59)
[2020-08-08] MEDS: ASCORBIC ACID 500 MG/5 ML UNIT DOSE CUP GT SCH ×2 (09:59→23:34)
[2020-08-09] MEDS ORDERED: PIPERACILLIN/TAZOBACTAM 3.375 GM VIAL IVPB ONE ×2 (02:17→09:45)
[2020-08-09] MEDS ORDERED: DEXTROSE 5%-WATER - 50 ML IVPB ONE ×2 (02:17→09:45)
[2020-08-09] MEDS: PIPERACILLIN/TAZOB 3.375 GM 3.375 GM in DEXTROSE 5%-WATER - 50 ML IVPB SCH ×2 (02:34→09:57)
[2020-08-09] MEDS: BACLOFEN 10 MG TABLET (FP) GT SCH ×3 (06:54→22:17)
[2020-08-09] MEDS ORDERED: PT OWN MED DRAWER 7, Y5N ONE ×3 (09:47→21:25)
[2020-08-09 10:06] LABS: BASO % 0.3 % (0-2.0); EOS % 0.8 % (0-4.5); HEMATOCRIT 30.5 % (32.4-45.2); HEMOGLOBIN 10.5 GM/dL (10.7-15.3); LYMPH % 41.3 % (8-40); MCH 34.1 pg (25.7-33.7); MCHC 34.3 g/dl (32.0-36.0); MEAN CELL VOLUME 99.3 fl (80-96); MEAN PLT VOLUME 9.2 fl (7.5-11.1); MONO % 8.2 % (3.8-10.2); NEUT % 49.4 % (42.8-82.8); PLATELET COUNT 209 K/MM3 (134-434); RBC 3.08 M/mm3 (3.60-5.2); RDW 14.4 % (11.6-15.6); WHITE BLOOD COUNT 3.4 K/mm3 (4.0-10.0)
[2020-08-09] MEDS: ENOXAPARIN NA (PORCINE) 40 MG/0.4 ML DISP.SYRIN SQ SCH (10:07)
[2020-08-09] MEDS: ZINC SULFATE 220 MG CAPSULE (FP) GT SCH (10:11)
[2020-08-09] MEDS: levETIRAcetam 500 MG/5 ML ORAL SOLUTION (UNIT-DOSE CUPS) GT SCH ×2 (10:13→22:17)
[2020-08-09] MEDS: SENNOSIDES 8.8 MG/5 ML BULK BOTTLE GT SCH ×2 (10:22→22:18)
[2020-08-09] MEDS: ASCORBIC ACID 500 MG/5 ML UNIT DOSE CUP GT SCH ×2 (10:24→22:18)
[2020-08-09] MEDS: MULTIVIT-MINERALS ORAL LIQUID PO SCH (10:25)
[2020-08-09] MEDS: TOPIRAMATE 200 MG TABLET GT SCH ×2 (10:27→22:18)
[2020-08-09 10:29] LABS: ALBUMIN 2.9 g/dl (3.4-5.0); CALCIUM 8.9 mg/dL (8.5-10.1); MAGNESIUM 1.9 mg/dL (1.8-2.4)
[2020-08-09 10:30] LABS: BLOOD UREA NITROGEN 13.6 mg/dL (7-18)
[2020-08-09] MEDS: OXcarbazepine 300 MG/5 ML 250 ML BULK BOTTLE GT SCH ×2 (10:30→22:18)
[2020-08-09 10:32] LABS: CREATININE 0.5 mg/dL (0.55-1.3)
[2020-08-09 10:33] LABS: PHOSPHOROUS 3.9 mg/dL (2.5-4.9); TOT PROT 6.1 g/dl (6.4-8.2)
[2020-08-09] MEDS: CHOLECALCIFEROL (VIT D SOLUTION) 400 UNIT/1 ML DROPS GT SCH (10:33)
[2020-08-09 10:35] LABS: BILIRUBIN,TOTAL 0.3 mg/dL (0.2-1)
[2020-08-09 10:43] LABS: POTASSIUM 3.8 mmol/L (3.5-5.1)
[2020-08-10] MEDS: BACLOFEN 10 MG TABLET (FP) GT SCH ×2 (06:04→14:41)
[2020-08-10 09:56] LABS: BASO % 0.4 % (0-2.0); EOS % 1.1 % (0-4.5); HEMOGLOBIN 10.2 GM/dL (10.7-15.3); MCH 33.6 pg (25.7-33.7); MEAN PLT VOLUME 8.7 fl (7.5-11.1); MONO % 8.6 % (3.8-10.2); NEUT % 29.9 % (42.8-82.8); PLATELET COUNT 225 K/MM3 (134-434); RBC 3.03 M/mm3 (3.60-5.2); RDW 14.5 % (11.6-15.6); WHITE BLOOD COUNT 3.8 K/mm3 (4.0-10.0)
[2020-08-10] MEDS: ENOXAPARIN NA (PORCINE) 40 MG/0.4 ML DISP.SYRIN SQ SCH (10:11)
[2020-08-10] MEDS: CHOLECALCIFEROL (VIT D SOLUTION) 400 UNIT/1 ML DROPS GT SCH (10:14)
[2020-08-10] MEDS: OXcarbazepine 300 MG/5 ML 250 ML BULK BOTTLE GT SCH (10:15)
[2020-08-10] MEDS: levETIRAcetam 500 MG/5 ML ORAL SOLUTION (UNIT-DOSE CUPS) GT SCH (10:15)
[2020-08-10] MEDS: MULTIVIT-MINERALS ORAL LIQUID PO SCH (10:16)
[2020-08-10] MEDS: TOPIRAMATE 200 MG TABLET GT SCH (10:17)
[2020-08-10] MEDS: ZINC SULFATE 220 MG CAPSULE (FP) GT SCH (10:17)
[2020-08-10] MEDS: SENNOSIDES 8.8 MG/5 ML BULK BOTTLE GT SCH (10:20)
[2020-08-10] MEDS: ASCORBIC ACID 500 MG/5 ML UNIT DOSE CUP GT SCH (10:20)
[2020-08-10 10:22] LABS: POTASSIUM 3.8 mmol/L (3.5-5.1)
[2020-08-10 10:29] LABS: ALBUMIN 2.9 g/dl (3.4-5.0); BLOOD UREA NITROGEN 14.7 mg/dL (7-18); CALCIUM 8.6 mg/dL (8.5-10.1)
[2020-08-10 10:30] LABS: MAGNESIUM 1.8 mg/dL (1.8-2.4)
[2020-08-10 10:32] LABS: CREATININE 0.4 mg/dL (0.55-1.3); PHOSPHOROUS 3.4 mg/dL (2.5-4.9)
[2020-08-10 10:34] LABS: TOT PROT 6.3 g/dl (6.4-8.2)
[2020-08-10 10:40] LABS: BILIRUBIN,TOTAL 0.5 mg/dL (0.2-1)
[2020-08-10 11:36] VITALS: BMI 21.4
[2020-08-10 14:22] VITALS: BP 90/60; PULSE 50; TEMP 97
[2020-08-10] MEDS ORDERED: PT OWN MED DRAWER 7, Y5N ONE (15:06)
== END 2020-08-10 17:30 | DRG 871 ==
LOC: JER 13:00 → JERBED 14:11 → J6S 22:54
PROVIDERS: ADMIT Internal Medicine; ATTEND Internal Medicine
DX: A41.9 Sepsis, unspecified organism (principal); G80.0 Spastic quadriplegic cerebral palsy; J18.9 Pneumonia, unspecified organism; J96.01 Acute respiratory failure with hypoxia; K76.0 Fatty (change of) liver, not elsewhere classified; D72.819 Decreased white blood cell count, unspecified; G40.909 Epilepsy, unspecified, not intractable, without status epilepticus; I34.0 Nonrheumatic mitral (valve) insufficiency; K21.9 Gastro-esophageal reflux disease without esophagitis; Z93.1 Gastrostomy status; R94.5 Abnormal results of liver function studies; E83.42 Hypomagnesemia; K83.8 Other specified diseases of biliary tract
CPT/HCPCS: 36415; 71045-TC-FY; 76705-TC; 80053; 80061; 81003; 82248; 82550; 82728; 82803; 82962; 83540; 83550; 83605; 83615; 83721; 83735; 84100; 84484; 85025; 85027; 85379; 85610; 85730; 86140; 86738; 86850; 86900; 86901; 87040; 87086; 87804; 87899; 93005; 93010; 99291; C9803; J0475; J1100; U0003

== ENCOUNTER 2020-09-21 22:40 | Inpatient (IN) | payer OTHER ==
[2020-09-21] MEDS ORDERED: VANCOMYCIN/WATER BAGS 1,250 MG/250 ML BAG IVPB ONE (23:36)
[2020-09-21] MEDS ORDERED: PIPERACILLIN/TAZOB 3.375 GM 3.375 GM in DEXTROSE 5%-WATER - 50 ML IVPB ONE (23:36)
[2020-09-21] MEDS ORDERED: ACETAMINOPHEN 1000 MG/100 ML VIAL (NON FORMULARY) IVPB ONE (23:49)
[2020-09-21] MEDS ORDERED: ACETAMINOPHEN INJECTION 100 ML IVPB ONE (23:56)
[2020-09-21] MEDS ORDERED: ONDANSETRON 4 MG/2 ML VIAL ONE (23:57)
[2020-09-22 01:07] LABS: HEMOGLOBIN 11.8 GM/dL (10.7-15.3); MEAN PLT VOLUME 9.5 fl (7.5-11.1); RDW 15.6 % (11.6-15.6)
[2020-09-22 01:08] LABS: PH,URINE 7.5 (5.0-8.0); URINE APPEARANCE CLEAR; URINE BILIRUBIN NEGATIVE (NEGATIVE); URINE COLOR YELLOW; URINE GLUCOSE (UA) NEGATIVE (NEGATIVE); URINE KETONE NEGATIVE (NEGATIVE); URINE LEUK ESTERASE NEGATIVE (NEGATIVE); URINE NITRITE NEGATIVE (NEGATIVE); URINE PROTEIN NEGATIVE (NEGATIVE); URINE UROBILINOGEN 0.2 mg/dL (0.2-1.0)
[2020-09-22 01:14] LABS: BASO % 0.3 % (0-2.0); EOS % 0.6 % (0-4.5); HEMATOCRIT 34.7 % (32.4-45.2); MCH 33.6 pg (25.7-33.7); MEAN CELL VOLUME 98.8 fl (80-96); MONO % 6.2 % (3.8-10.2); NEUT % 59.9 % (42.8-82.8); PLATELET COUNT 248 K/MM3 (134-434); RBC 3.51 M/mm3 (3.60-5.2); WHITE BLOOD COUNT 5.5 K/mm3 (4.0-10.0)
[2020-09-22 01:16] LABS: CHLORIDE 103 mmol/L (98-107); SODIUM 132 mmol/L (136-145)
[2020-09-22 01:18] LABS: BLOOD UREA NITROGEN 27.7 mg/dL (7-18); CALCIUM 8.5 mg/dL (8.5-10.1)
[2020-09-22 01:19] LABS: ALBUMIN 3.5 g/dl (3.4-5.0); ANION GAP 6 MMOL/L (8-16); CO2 23 mmol/L (21-32); GLUCOSE,RANDOM 51 mg/dL (74-106)
[2020-09-22 01:21] LABS: BILIRUBIN,DIRECT 0.1 mg/dL (0.0-0.2); CREATININE 0.4 mg/dL (0.55-1.3)
[2020-09-22 01:22] LABS: SGOT/AST 85 U/L (15-37); SGPT/ALT 224 U/L (13-61)
[2020-09-22 01:23] LABS: BILIRUBIN,TOTAL 0.1 mg/dL (0.2-1); TOT PROT 7.3 g/dl (6.4-8.2)
[2020-09-22 01:24] LABS: ALK PHOS 408 U/L (45-117)
[2020-09-22 01:26] LABS: LDH 229 U/L (84-246)
[2020-09-22] MEDS ORDERED: SODIUM CHLORIDE 0.9% 500 ML INFUS.BAG IV ONE ×2 (01:39)
[2020-09-22] MEDS ORDERED: DEXTROSE 50%-WATER - 25 GM/50 ML VIAL IVPUSH PRN (04:18)
[2020-09-22] MEDS ORDERED: TRIAMCIN TP PRN (05:15)
[2020-09-22] MEDS ORDERED: NYSTATIN TP PRN (05:15)
[2020-09-22] MEDS ORDERED: [UNRECOGNIZED DRUG - OTHER] TP PRN (05:15)
[2020-09-22] MEDS ORDERED: DOXYCYCLINE HYCLATE 100 MG VIAL ONE (05:20)
[2020-09-22] MEDS: DOXYCYCLINE INJECTION 100 MG in DEXTROSE 5%-WATER - 100 ML IVPB SCH ×3 (05:38→23:47)
[2020-09-22] MEDS: DEXTROSE 5%-NORMAL SALINE 1,000 ML IV SCH (06:20)
[2020-09-22] MEDS: ALBUTEROL SO4 0.083% IH SOL 2.5 MG/3 ML VIAL.NEB. NEB SCH ×3 (07:15→20:45)
[2020-09-22] MEDS: NOREPINEPHRINE BITARTRATE 16,000 MCG in SODIUM CHLORIDE 484 ML IV SCH (07:35)
[2020-09-22 08:38] LABS: BASO % 0.3 % (0-2.0); EOS % 0.2 % (0-4.5); HEMATOCRIT 28.3 % (32.4-45.2); HEMOGLOBIN 9.5 GM/dL (10.7-15.3); LYMPH % 18.4 % (8-40); MCH 33.8 pg (25.7-33.7); MCHC 33.7 g/dl (32.0-36.0); MEAN CELL VOLUME 100.3 fl (80-96); MEAN PLT VOLUME 8.6 fl (7.5-11.1); MONO % 5.6 % (3.8-10.2); NEUT % 75.5 % (42.8-82.8); PLATELET COUNT 186 K/MM3 (134-434); RBC 2.82 M/mm3 (3.60-5.2); RDW 15.3 % (11.6-15.6); WHITE BLOOD COUNT 4.4 K/mm3 (4.0-10.0)
[2020-09-22 08:46] LABS: INR 0.94 (0.83-1.09); PROTHROMBIN TIME (PATIENT) 11.6 SEC (9.7-13.0)
[2020-09-22 08:49] LABS: ACTIVATED PTT 36.5 SECONDS (25.2-36.5)
[2020-09-22] MEDS ORDERED: NUTRITIONAL SUPPLEMENT GT SCH (10:00)
[2020-09-22] MEDS ORDERED: levETIRAcetam XR 750 MG TAB PO SCH (10:00)
[2020-09-22] MEDS: ENOXAPARIN NA (PORCINE) 40 MG/0.4 ML DISP.SYRIN SQ SCH (10:19)
[2020-09-22] MEDS: SENNOSIDES 8.6MG TABLET (FP) PO SCH ×2 (10:53→22:44)
[2020-09-22] MEDS: levETIRAcetam 500 MG/5 ML ORAL SOLUTION (UNIT-DOSE CUPS) GT SCH ×2 (10:53→22:44)
[2020-09-22] MEDS: TOPIRAMATE 25 MG TABLET PO SCH ×2 (10:55→22:44)
[2020-09-22] MEDS: PIPERACILLIN/TAZOB 3.375 GM 3.375 GM in DEXTROSE 5%-WATER - 50 ML IVPB SCH ×2 (11:19→19:09)
[2020-09-22 11:20] LABS: CALCIUM 7.9 mg/dL (8.5-10.1)
[2020-09-22 11:23] LABS: ALBUMIN 2.6 g/dl (3.4-5.0); CREATININE 0.4 mg/dL (0.55-1.3); PHOSPHOROUS 2.3 mg/dL (2.5-4.9)
[2020-09-22 11:25] LABS: BILIRUBIN,TOTAL 0.2 mg/dL (0.2-1); TOT PROT 5.6 g/dl (6.4-8.2)
[2020-09-22] MEDS ORDERED: PIPERACILLIN/TAZOBACTAM 3.375 GM VIAL IVPB ONE ×2 (11:36→16:58)
[2020-09-22] MEDS ORDERED: DEXTROSE 5%-WATER - 50 ML IVPB ONE ×2 (11:36→16:58)
[2020-09-22] MEDS: NYSTATIN/TRIAMCINOLONE TOPICAL CREAM 15 GM TUBE TP SCH ×2 (15:57→23:49)
[2020-09-22] MEDS ORDERED: PT OWN MED DRAWER 7, Y5N ONE (22:37)
[2020-09-22] MEDS: MUPIROCIN 2% TOPICAL OINTMENT FOR DECOLONIZATION NS SCH (22:44)
[2020-09-22] MEDS: CHLORHEXIDINE GLUCONATE 4% CLEANSER FOR DECOLONIZATION TP SCH (22:44)
[2020-09-23] MEDS ORDERED: DEXTROSE 5%-WATER - 50 ML IVPB ONE ×4 (01:21→22:02)
[2020-09-23] MEDS ORDERED: PIPERACILLIN/TAZOBACTAM 3.375 GM VIAL IVPB ONE ×4 (01:21→22:02)
[2020-09-23] MEDS: PIPERACILLIN/TAZOB 3.375 GM 3.375 GM in DEXTROSE 5%-WATER - 50 ML IVPB SCH ×3 (01:40→17:58)
[2020-09-23] MEDS: MUPIROCIN 2% TOPICAL OINTMENT FOR DECOLONIZATION NS SCH ×3 (01:56→22:09)
[2020-09-23 06:44] LABS: HEMATOCRIT 27.7 % (32.4-45.2); HEMOGLOBIN 9.5 GM/dL (10.7-15.3); MCH 34.5 pg (25.7-33.7); MCHC 34.4 g/dl (32.0-36.0); MEAN CELL VOLUME 100.1 fl (80-96); MEAN PLT VOLUME 8.2 fl (7.5-11.1); PLATELET COUNT 234 K/MM3 (134-434); RBC 2.77 M/mm3 (3.60-5.2); RDW 16.3 % (11.6-15.6); WHITE BLOOD COUNT 4.1 K/mm3 (4.0-10.0)
[2020-09-23 07:05] LABS: ALBUMIN 2.7 g/dl (3.4-5.0)
[2020-09-23 07:07] LABS: BLOOD UREA NITROGEN 8.4 mg/dL (7-18); MAGNESIUM 1.9 mg/dL (1.8-2.4)
[2020-09-23 07:08] LABS: PHOSPHOROUS 2.3 mg/dL (2.5-4.9)
[2020-09-23 07:09] LABS: CREATININE 0.4 mg/dL (0.55-1.3)
[2020-09-23 07:10] LABS: BILIRUBIN,TOTAL 0.3 mg/dL (0.2-1); TOT PROT 5.6 g/dl (6.4-8.2)
[2020-09-23] MEDS: DEXTROSE 5%-NORMAL SALINE 1,000 ML IV SCH ×2 (07:21→13:37)
[2020-09-23] MEDS: NOREPINEPHRINE BITARTRATE 16,000 MCG in SODIUM CHLORIDE 484 ML IV SCH (07:21)
[2020-09-23] MEDS: ALBUTEROL SO4 0.083% IH SOL 2.5 MG/3 ML VIAL.NEB. NEB SCH ×3 (08:33→21:40)
[2020-09-23] MEDS ORDERED: PIPERACILLIN/TAZOB 3.375 GM 3.375 GM in DEXTROSE 5%-WATER - 50 ML IVPB SCH (10:00)
[2020-09-23] MEDS ORDERED: PT OWN MED DRAWER 7, Y5N ONE ×2 (11:41→13:21)
[2020-09-23] MEDS: levETIRAcetam 500 MG/5 ML ORAL SOLUTION (UNIT-DOSE CUPS) GT SCH ×2 (13:16→22:10)
[2020-09-23] MEDS: ENOXAPARIN NA (PORCINE) 40 MG/0.4 ML DISP.SYRIN SQ SCH (13:17)
[2020-09-23] MEDS: SENNOSIDES 8.6MG TABLET (FP) PO SCH ×2 (13:17→22:10)
[2020-09-23] MEDS: NYSTATIN/TRIAMCINOLONE TOPICAL CREAM 15 GM TUBE TP SCH ×2 (13:17→22:11)
[2020-09-23] MEDS: TOPIRAMATE 25 MG TABLET PO SCH ×2 (13:18→22:10)
[2020-09-23] MEDS: DOXYCYCLINE INJECTION 100 MG in DEXTROSE 5%-WATER - 100 ML IVPB SCH ×2 (13:23→22:39)
[2020-09-23] MEDS: CHLORHEXIDINE GLUCONATE 4% CLEANSER FOR DECOLONIZATION TP SCH (22:09)
[2020-09-24] MEDS: PIPERACILLIN/TAZOB 3.375 GM 3.375 GM in DEXTROSE 5%-WATER - 50 ML IVPB SCH ×3 (01:17→18:20)
[2020-09-24] MEDS: DEXTROSE 5%-NORMAL SALINE 1,000 ML IV SCH ×2 (03:30→04:30)
[2020-09-24] MEDS: NOREPINEPHRINE BITARTRATE 16,000 MCG in SODIUM CHLORIDE 484 ML IV SCH (05:00)
[2020-09-24 07:04] LABS: BASO % 0.4 % (0-2.0); EOS % 0.2 % (0-4.5); HEMATOCRIT 26.5 % (32.4-45.2); HEMOGLOBIN 8.8 GM/dL (10.7-15.3); LYMPH % 34.3 % (8-40); MCH 33.3 pg (25.7-33.7); MCHC 33.1 g/dl (32.0-36.0); MEAN CELL VOLUME 100.6 fl (80-96); MEAN PLT VOLUME 8.9 fl (7.5-11.1); MONO % 9.2 % (3.8-10.2); NEUT % 55.9 % (42.8-82.8); PLATELET COUNT 209 K/MM3 (134-434); RBC 2.64 M/mm3 (3.60-5.2); RDW 16.2 % (11.6-15.6); WHITE BLOOD COUNT 2.7 K/mm3 (4.0-10.0)
[2020-09-24 07:17] LABS: CALCIUM 8.2 mg/dL (8.5-10.1)
[2020-09-24 07:18] LABS: ALBUMIN 2.6 g/dl (3.4-5.0); BLOOD UREA NITROGEN 8.9 mg/dL (7-18); MAGNESIUM 1.8 mg/dL (1.8-2.4)
[2020-09-24 07:21] LABS: CREATININE 0.6 mg/dL (0.55-1.3); PHOSPHOROUS 2.4 mg/dL (2.5-4.9)
[2020-09-24 07:23] LABS: BILIRUBIN,TOTAL 0.3 mg/dL (0.2-1)
[2020-09-24 07:25] LABS: TOT PROT 5.5 g/dl (6.4-8.2)
[2020-09-24] MEDS ORDERED: POTASSIUM CHLORIDE ORAL LIQUID 20 MEQ/15 ML PEG ONE (08:30)
[2020-09-24] MEDS ORDERED: NAPH,MB-DB/K PH,MBDB POWDER PACKET PEG ONE (08:45)
[2020-09-24] MEDS: ALBUTEROL SO4 0.083% IH SOL 2.5 MG/3 ML VIAL.NEB. NEB SCH ×3 (08:50→20:00)
[2020-09-24] MEDS ORDERED: PIPERACILLIN/TAZOBACTAM 3.375 GM VIAL IVPB ONE ×3 (09:04→22:26)
[2020-09-24] MEDS ORDERED: DEXTROSE 5%-WATER - 50 ML IVPB ONE ×3 (09:04→22:26)
[2020-09-24] MEDS: DEXTROSE 5%-0.45% SALINE 1,000 ML IV SCH ×2 (10:14→22:37)
[2020-09-24] MEDS: levETIRAcetam 500 MG/5 ML ORAL SOLUTION (UNIT-DOSE CUPS) GT SCH ×2 (10:16→22:35)
[2020-09-24] MEDS: MUPIROCIN 2% TOPICAL OINTMENT FOR DECOLONIZATION NS SCH ×2 (10:16→22:34)
[2020-09-24] MEDS: ENOXAPARIN NA (PORCINE) 40 MG/0.4 ML DISP.SYRIN SQ SCH (10:16)
[2020-09-24] MEDS: TOPIRAMATE 25 MG TABLET PO SCH ×2 (10:17→22:35)
[2020-09-24] MEDS: DOXYCYCLINE INJECTION 100 MG in DEXTROSE 5%-WATER - 100 ML IVPB SCH ×2 (10:17→22:32)
[2020-09-24] MEDS: NYSTATIN/TRIAMCINOLONE TOPICAL CREAM 15 GM TUBE TP SCH ×2 (10:17→22:35)
[2020-09-24] MEDS: SENNOSIDES 8.6MG TABLET (FP) PO SCH ×2 (10:17→22:35)
[2020-09-24] MEDS ORDERED: PT OWN MED DRAWER 7, Y5N ONE (22:25)
[2020-09-24] MEDS: CHLORHEXIDINE GLUCONATE 4% CLEANSER FOR DECOLONIZATION TP SCH (22:34)
[2020-09-25] MEDS: PIPERACILLIN/TAZOB 3.375 GM 3.375 GM in DEXTROSE 5%-WATER - 50 ML IVPB SCH ×2 (01:07→09:39)
[2020-09-25] MEDS: NOREPINEPHRINE BITARTRATE 16,000 MCG in SODIUM CHLORIDE 484 ML IV SCH (05:30)
[2020-09-25] MEDS: ALBUTEROL SO4 0.083% IH SOL 2.5 MG/3 ML VIAL.NEB. NEB SCH ×3 (08:15→20:44)
[2020-09-25] MEDS ORDERED: PIPERACILLIN/TAZOBACTAM 3.375 GM VIAL IVPB ONE (09:38)
[2020-09-25] MEDS ORDERED: DEXTROSE 5%-WATER - 50 ML IVPB ONE (09:38)
[2020-09-25] MEDS: SENNOSIDES 8.6MG TABLET (FP) PO SCH ×2 (09:39→22:34)
[2020-09-25] MEDS: levETIRAcetam 500 MG/5 ML ORAL SOLUTION (UNIT-DOSE CUPS) GT SCH ×2 (09:39→22:44)
[2020-09-25] MEDS: ENOXAPARIN NA (PORCINE) 40 MG/0.4 ML DISP.SYRIN SQ SCH (09:39)
[2020-09-25] MEDS: DEXTROSE 5%-0.45% SALINE 1,000 ML IV SCH (09:40)
[2020-09-25] MEDS: TOPIRAMATE 25 MG TABLET PO SCH ×2 (09:40→22:34)
[2020-09-25] MEDS: DOXYCYCLINE INJECTION 100 MG in DEXTROSE 5%-WATER - 100 ML IVPB SCH ×2 (09:40→22:34)
[2020-09-25] MEDS: MUPIROCIN 2% TOPICAL OINTMENT FOR DECOLONIZATION NS SCH ×2 (09:40→22:34)
[2020-09-25] MEDS: NYSTATIN/TRIAMCINOLONE TOPICAL CREAM 15 GM TUBE TP SCH ×2 (09:41→22:34)
[2020-09-25] MEDS ORDERED: CEFEPIME HCL 1 GM VIAL (RESTRICTED TO ID) ONE (17:37)
[2020-09-25] MEDS ORDERED: DEXTROSE 5%-WATER 100 ML IVPB ONE (17:37)
[2020-09-25] MEDS: CEFEPIME 1 GM in DEXTROSE 5%-WATER 1 GM/50 ML BAG IVPB SCH (17:49)
[2020-09-25] MEDS ORDERED: PT OWN MED DRAWER 7, Y5N ONE ×2 (22:18→22:43)
[2020-09-25] MEDS: CHLORHEXIDINE GLUCONATE 4% CLEANSER FOR DECOLONIZATION TP SCH (22:34)
[2020-09-26] MEDS ORDERED: DEXTROSE 5%-WATER 100 ML IVPB ONE ×3 (01:27→17:25)
[2020-09-26] MEDS ORDERED: CEFEPIME HCL 1 GM VIAL (RESTRICTED TO ID) ONE ×3 (01:27→17:25)
[2020-09-26] MEDS: CEFEPIME 1 GM in DEXTROSE 5%-WATER 1 GM/50 ML BAG IVPB SCH (02:19)
[2020-09-26 07:16] LABS: BASO % 0.5 % (0-2.0); EOS % 1.2 % (0-4.5); HEMATOCRIT 27.4 % (32.4-45.2); HEMOGLOBIN 9.4 GM/dL (10.7-15.3); LYMPH % 42.3 % (8-40); MCH 34.1 pg (25.7-33.7); MCHC 34.3 g/dl (32.0-36.0); MEAN CELL VOLUME 99.5 fl (80-96); MEAN PLT VOLUME 8.9 fl (7.5-11.1); MONO % 11.8 % (3.8-10.2); NEUT % 44.2 % (42.8-82.8); PLATELET COUNT 184 K/MM3 (134-434); RBC 2.75 M/mm3 (3.60-5.2); RDW 15.6 % (11.6-15.6)
[2020-09-26] MEDS: ALBUTEROL SO4 0.083% IH SOL 2.5 MG/3 ML VIAL.NEB. NEB SCH ×3 (07:45→20:56)
[2020-09-26 08:00] LABS: CALCIUM 8.4 mg/dL (8.5-10.1)
[2020-09-26 08:01] LABS: BLOOD UREA NITROGEN 12.9 mg/dL (7-18); MAGNESIUM 1.5 mg/dL (1.8-2.4)
[2020-09-26 08:04] LABS: PHOSPHOROUS 4.3 mg/dL (2.5-4.9)
[2020-09-26 08:05] LABS: CREATININE 0.4 mg/dL (0.55-1.3)
[2020-09-26] MEDS ORDERED: PT OWN MED DRAWER 7, Y5N ONE ×2 (09:33→10:33)
[2020-09-26] MEDS: TOPIRAMATE 25 MG TABLET PO SCH ×2 (09:54→22:15)
[2020-09-26] MEDS: SENNOSIDES 8.6MG TABLET (FP) PO SCH ×2 (09:54→22:15)
[2020-09-26] MEDS: ENOXAPARIN NA (PORCINE) 40 MG/0.4 ML DISP.SYRIN SQ SCH (09:54)
[2020-09-26] MEDS: levETIRAcetam 500 MG/5 ML ORAL SOLUTION (UNIT-DOSE CUPS) GT SCH ×2 (09:55→22:15)
[2020-09-26] MEDS: NYSTATIN/TRIAMCINOLONE TOPICAL CREAM 15 GM TUBE TP SCH ×2 (09:56→22:15)
[2020-09-26] MEDS: MUPIROCIN 2% TOPICAL OINTMENT FOR DECOLONIZATION NS SCH ×2 (09:56→22:15)
[2020-09-26] MEDS: CEFEPIME 1 GM in DEXTROSE 5%-WATER 1 GM/100 ML BAG IVPB SCH ×2 (09:57→17:37)
[2020-09-26] MEDS: DOXYCYCLINE INJECTION 100 MG in DEXTROSE 5%-WATER - 100 ML IVPB SCH ×2 (09:57→22:15)
[2020-09-26] MEDS ORDERED: MAGNESIUM SULF 50% (8.12 MEQ/2 ML-1 GM VIAL) IVPB ONE (10:42)
[2020-09-26] MEDS: CHLORHEXIDINE GLUCONATE 4% CLEANSER FOR DECOLONIZATION TP SCH (22:15)
[2020-09-27] MEDS ORDERED: DEXTROSE 5%-WATER 100 ML IVPB ONE ×3 (00:36→16:16)
[2020-09-27] MEDS ORDERED: CEFEPIME HCL 1 GM VIAL (RESTRICTED TO ID) ONE ×3 (00:36→16:16)
[2020-09-27] MEDS: CEFEPIME 1 GM in DEXTROSE 5%-WATER 1 GM/100 ML BAG IVPB SCH ×3 (01:43→17:27)
[2020-09-27 08:06] LABS: HEMATOCRIT 28.8 % (32.4-45.2); HEMOGLOBIN 9.8 GM/dL (10.7-15.3); MCH 33.9 pg (25.7-33.7); MCHC 33.9 g/dl (32.0-36.0); MEAN CELL VOLUME 99.9 fl (80-96); PLATELET COUNT 196 K/MM3 (134-434); RBC 2.88 M/mm3 (3.60-5.2); RDW 15.8 % (11.6-15.6); WHITE BLOOD COUNT 4.3 K/mm3 (4.0-10.0)
[2020-09-27 08:12] LABS: ALBUMIN 2.6 g/dl (3.4-5.0)
[2020-09-27 08:15] LABS: CREATININE 0.4 mg/dL (0.55-1.3); PHOSPHOROUS 4.3 mg/dL (2.5-4.9)
[2020-09-27 08:16] LABS: BILIRUBIN,TOTAL 0.4 mg/dL (0.2-1)
[2020-09-27 08:17] LABS: TOT PROT 5.6 g/dl (6.4-8.2)
[2020-09-27 08:28] LABS: BLOOD UREA NITROGEN 16.8 mg/dL (7-18); CALCIUM 8.6 mg/dL (8.5-10.1); MAGNESIUM 2.1 mg/dL (1.8-2.4)
[2020-09-27] MEDS: SENNOSIDES 8.6MG TABLET (FP) PO SCH ×2 (09:20→21:18)
[2020-09-27] MEDS: ENOXAPARIN NA (PORCINE) 40 MG/0.4 ML DISP.SYRIN SQ SCH (09:20)
[2020-09-27] MEDS: TOPIRAMATE 25 MG TABLET PO SCH ×2 (09:20→21:18)
[2020-09-27] MEDS: NYSTATIN/TRIAMCINOLONE TOPICAL CREAM 15 GM TUBE TP SCH ×2 (09:21→21:17)
[2020-09-27] MEDS: DOXYCYCLINE INJECTION 100 MG in DEXTROSE 5%-WATER - 100 ML IVPB SCH ×2 (10:40→21:19)
[2020-09-27] MEDS: levETIRAcetam 500 MG/5 ML ORAL SOLUTION (UNIT-DOSE CUPS) GT SCH ×2 (11:15→21:18)
[2020-09-27] MEDS: CHLORHEXIDINE GLUCONATE 4% CLEANSER FOR DECOLONIZATION TP SCH (21:18)
[2020-09-28] MEDS ORDERED: CEFEPIME HCL 1 GM VIAL (RESTRICTED TO ID) ONE ×3 (01:41→17:00)
[2020-09-28] MEDS ORDERED: DEXTROSE 5%-WATER 100 ML IVPB ONE ×3 (01:42→17:00)
[2020-09-28] MEDS: CEFEPIME 1 GM in DEXTROSE 5%-WATER 1 GM/100 ML BAG IVPB SCH ×3 (01:49→18:51)
[2020-09-28 06:28] LABS: HEMATOCRIT 29.3 % (32.4-45.2); HEMOGLOBIN 9.9 GM/dL (10.7-15.3); MCH 33.9 pg (25.7-33.7); MCHC 33.7 g/dl (32.0-36.0); MEAN CELL VOLUME 100.4 fl (80-96); MEAN PLT VOLUME 9.3 fl (7.5-11.1); PLATELET COUNT 220 K/MM3 (134-434); RBC 2.92 M/mm3 (3.60-5.2); RDW 15.5 % (11.6-15.6); WHITE BLOOD COUNT 4.6 K/mm3 (4.0-10.0)
[2020-09-28 06:36] LABS: ALBUMIN 2.6 g/dl (3.4-5.0); BLOOD UREA NITROGEN 16.8 mg/dL (7-18); CALCIUM 8.8 mg/dL (8.5-10.1); MAGNESIUM 1.8 mg/dL (1.8-2.4)
[2020-09-28 06:39] LABS: CREATININE 0.4 mg/dL (0.55-1.3); PHOSPHOROUS 3.9 mg/dL (2.5-4.9)
[2020-09-28 06:41] LABS: BILIRUBIN,TOTAL 0.5 mg/dL (0.2-1); TOT PROT 5.8 g/dl (6.4-8.2)
[2020-09-28] MEDS ORDERED: PT OWN MED DRAWER 7, Y5N ONE ×2 (10:44→23:26)
[2020-09-28] MEDS: TOPIRAMATE 25 MG TABLET PO SCH ×2 (10:52→23:37)
[2020-09-28] MEDS: ENOXAPARIN NA (PORCINE) 40 MG/0.4 ML DISP.SYRIN SQ SCH (10:52)
[2020-09-28] MEDS: SENNOSIDES 8.6MG TABLET (FP) PO SCH ×2 (10:53→23:37)
[2020-09-28] MEDS: DOXYCYCLINE INJECTION 100 MG in DEXTROSE 5%-WATER - 100 ML IVPB SCH (10:53)
[2020-09-28] MEDS: levETIRAcetam 500 MG/5 ML ORAL SOLUTION (UNIT-DOSE CUPS) GT SCH ×2 (10:53→23:36)
[2020-09-28] MEDS: NYSTATIN/TRIAMCINOLONE TOPICAL CREAM 15 GM TUBE TP SCH ×2 (10:59→23:37)
[2020-09-28] MEDS: CHLORHEXIDINE GLUCONATE 4% CLEANSER FOR DECOLONIZATION TP SCH (23:36)
[2020-09-29] MEDS ORDERED: CEFEPIME HCL 1 GM VIAL (RESTRICTED TO ID) ONE ×3 (01:55→18:43)
[2020-09-29] MEDS ORDERED: DEXTROSE 5%-WATER 100 ML IVPB ONE ×3 (01:55→18:43)
[2020-09-29] MEDS: CEFEPIME 1 GM in DEXTROSE 5%-WATER 1 GM/100 ML BAG IVPB SCH ×3 (01:56→18:48)
[2020-09-29 06:40] LABS: HEMATOCRIT 29.3 % (32.4-45.2); MCH 34.3 pg (25.7-33.7); MCHC 34.1 g/dl (32.0-36.0); MEAN CELL VOLUME 100.4 fl (80-96); MEAN PLT VOLUME 9.5 fl (7.5-11.1); PLATELET COUNT 213 K/MM3 (134-434); RBC 2.91 M/mm3 (3.60-5.2); RDW 15.5 % (11.6-15.6); WHITE BLOOD COUNT 3.9 K/mm3 (4.0-10.0)
[2020-09-29 06:48] LABS: CALCIUM 8.9 mg/dL (8.5-10.1)
[2020-09-29 06:49] LABS: BLOOD UREA NITROGEN 19.1 mg/dL (7-18)
[2020-09-29 06:52] LABS: CREATININE 0.4 mg/dL (0.55-1.3)
[2020-09-29] MEDS: ENOXAPARIN NA (PORCINE) 40 MG/0.4 ML DISP.SYRIN SQ SCH (09:43)
[2020-09-29] MEDS: NYSTATIN/TRIAMCINOLONE TOPICAL CREAM 15 GM TUBE TP SCH ×2 (09:43→22:38)
[2020-09-29] MEDS: SENNOSIDES 8.6MG TABLET (FP) PO SCH ×2 (09:44→22:38)
[2020-09-29] MEDS: TOPIRAMATE 25 MG TABLET PO SCH ×2 (09:44→22:39)
[2020-09-29] MEDS ORDERED: PT OWN MED DRAWER 7, Y5N ONE ×2 (09:45→22:36)
[2020-09-29] MEDS: levETIRAcetam 500 MG/5 ML ORAL SOLUTION (UNIT-DOSE CUPS) GT SCH ×2 (09:46→22:38)
[2020-09-29] MEDS: CHLORHEXIDINE GLUCONATE 4% CLEANSER FOR DECOLONIZATION TP SCH (22:38)
[2020-09-30] MEDS ORDERED: CEFEPIME HCL 1 GM VIAL (RESTRICTED TO ID) ONE ×3 (02:56→17:51)
[2020-09-30] MEDS ORDERED: DEXTROSE 5%-WATER 100 ML IVPB ONE ×2 (02:57→17:51)
[2020-09-30] MEDS: CEFEPIME 1 GM in DEXTROSE 5%-WATER 1 GM/100 ML BAG IVPB SCH ×3 (02:58→17:53)
[2020-09-30 06:43] LABS: BASO % 0.5 % (0-2.0); HEMATOCRIT 29.5 % (32.4-45.2); HEMOGLOBIN 9.9 GM/dL (10.7-15.3); LYMPH % 24.4 % (8-40); MCH 33.6 pg (25.7-33.7); MCHC 33.7 g/dl (32.0-36.0); MEAN CELL VOLUME 99.8 fl (80-96); MEAN PLT VOLUME 9.5 fl (7.5-11.1); MONO % 9.8 % (3.8-10.2); NEUT % 64.3 % (42.8-82.8); PLATELET COUNT 253 K/MM3 (134-434); RBC 2.96 M/mm3 (3.60-5.2); RDW 15.7 % (11.6-15.6); WHITE BLOOD COUNT 6.7 K/mm3 (4.0-10.0)
[2020-09-30 07:05] LABS: ALBUMIN 2.7 g/dl (3.4-5.0); BLOOD UREA NITROGEN 17.2 mg/dL (7-18); CALCIUM 8.5 mg/dL (8.5-10.1); MAGNESIUM 1.9 mg/dL (1.8-2.4)
[2020-09-30 07:08] LABS: CREATININE 0.4 mg/dL (0.55-1.3)
[2020-09-30 07:09] LABS: PHOSPHOROUS 4.2 mg/dL (2.5-4.9)
[2020-09-30 07:10] LABS: BILIRUBIN,TOTAL 0.4 mg/dL (0.2-1)
[2020-09-30] MEDS ORDERED: PT OWN MED DRAWER 7, Y5N ONE ×2 (10:16→22:22)
[2020-09-30] MEDS: ENOXAPARIN NA (PORCINE) 40 MG/0.4 ML DISP.SYRIN SQ SCH (10:24)
[2020-09-30] MEDS: levETIRAcetam 500 MG/5 ML ORAL SOLUTION (UNIT-DOSE CUPS) GT SCH ×2 (10:24→22:28)
[2020-09-30] MEDS: NYSTATIN/TRIAMCINOLONE TOPICAL CREAM 15 GM TUBE TP SCH ×2 (10:27→22:27)
[2020-09-30] MEDS: TOPIRAMATE 25 MG TABLET PO SCH ×2 (10:28→22:25)
[2020-09-30] MEDS: SENNOSIDES 8.6MG TABLET (FP) PO SCH ×2 (10:28→10:36)
[2020-09-30] MEDS ORDERED: POTASSIUM PHOSPHATE 15 MM in DEXTROSE 5%-WATER - 250 ML IVPB ONE (13:49)
[2020-09-30] MEDS: SENNOSIDES 8.8 MG/5 ML BULK BOTTLE GT SCH (21:36)
[2020-09-30] MEDS: CHLORHEXIDINE GLUCONATE 4% CLEANSER FOR DECOLONIZATION TP SCH (22:27)
[2020-10-01] MEDS ORDERED: CEFEPIME HCL 1 GM VIAL (RESTRICTED TO ID) ONE ×3 (02:15→18:20)
[2020-10-01] MEDS ORDERED: DEXTROSE 5%-WATER 100 ML IVPB ONE ×3 (02:16→18:20)
[2020-10-01] MEDS: CEFEPIME 1 GM in DEXTROSE 5%-WATER 1 GM/100 ML BAG IVPB SCH ×3 (02:20→18:26)
[2020-10-01 06:54] LABS: HEMATOCRIT 31.5 % (32.4-45.2); HEMOGLOBIN 10.5 GM/dL (10.7-15.3); MCH 33.3 pg (25.7-33.7); MCHC 33.4 g/dl (32.0-36.0); MEAN CELL VOLUME 99.7 fl (80-96); PLATELET COUNT 278 K/MM3 (134-434); RBC 3.16 M/mm3 (3.60-5.2); RDW 15.6 % (11.6-15.6); WHITE BLOOD COUNT 5.7 K/mm3 (4.0-10.0)
[2020-10-01 07:07] LABS: SARS-CoV-2 NAA Not Detected (Not Detected)
[2020-10-01 07:18] LABS: CALCIUM 9.2 mg/dL (8.5-10.1)
[2020-10-01 07:19] LABS: ALBUMIN 2.9 g/dl (3.4-5.0); BLOOD UREA NITROGEN 17.2 mg/dL (7-18); MAGNESIUM 2.1 mg/dL (1.8-2.4)
[2020-10-01 07:22] LABS: CREATININE 0.4 mg/dL (0.55-1.3); PHOSPHOROUS 3.9 mg/dL (2.5-4.9)
[2020-10-01 07:23] LABS: BILIRUBIN,TOTAL 0.4 mg/dL (0.2-1); TOT PROT 6.5 g/dl (6.4-8.2)
[2020-10-01] MEDS ORDERED: PT OWN MED DRAWER 7, Y5N ONE ×3 (09:14→22:45)
[2020-10-01] MEDS: ENOXAPARIN NA (PORCINE) 40 MG/0.4 ML DISP.SYRIN SQ SCH (09:16)
[2020-10-01] MEDS: NYSTATIN/TRIAMCINOLONE TOPICAL CREAM 15 GM TUBE TP SCH ×2 (09:16→22:42)
[2020-10-01] MEDS: levETIRAcetam 500 MG/5 ML ORAL SOLUTION (UNIT-DOSE CUPS) GT SCH ×2 (09:16→22:41)
[2020-10-01] MEDS: SENNOSIDES 8.8 MG/5 ML BULK BOTTLE GT SCH ×2 (09:17→22:42)
[2020-10-01] MEDS: TOPIRAMATE 25 MG TABLET PO SCH ×2 (09:17→22:42)
[2020-10-01] MEDS: CHLORHEXIDINE GLUCONATE 4% CLEANSER FOR DECOLONIZATION TP SCH (22:41)
[2020-10-02] MEDS ORDERED: CEFEPIME HCL 1 GM VIAL (RESTRICTED TO ID) ONE (02:56)
[2020-10-02] MEDS ORDERED: DEXTROSE 5%-WATER 100 ML IVPB ONE (02:56)
[2020-10-02] MEDS: CEFEPIME 1 GM in DEXTROSE 5%-WATER 1 GM/100 ML BAG IVPB SCH (02:57)
[2020-10-02 06:55] LABS: BASO % 0.6 % (0-2.0); EOS % 1.1 % (0-4.5); HEMATOCRIT 34.7 % (32.4-45.2); HEMOGLOBIN 11.6 GM/dL (10.7-15.3); LYMPH % 31.1 % (8-40); MCH 33.6 pg (25.7-33.7); MCHC 33.6 g/dl (32.0-36.0); MEAN CELL VOLUME 100.1 fl (80-96); MEAN PLT VOLUME 9.1 fl (7.5-11.1); MONO % 10.9 % (3.8-10.2); NEUT % 56.3 % (42.8-82.8); PLATELET COUNT 301 K/MM3 (134-434); RBC 3.46 M/mm3 (3.60-5.2); RDW 15.2 % (11.6-15.6); WHITE BLOOD COUNT 5.8 K/mm3 (4.0-10.0)
[2020-10-02 07:21] LABS: CALCIUM 9.3 mg/dL (8.5-10.1)
[2020-10-02 07:23] LABS: ALBUMIN 3.3 g/dl (3.4-5.0); BLOOD UREA NITROGEN 16.2 mg/dL (7-18)
[2020-10-02 07:26] LABS: CREATININE 0.4 mg/dL (0.55-1.3); PHOSPHOROUS 4.4 mg/dL (2.5-4.9)
[2020-10-02 07:27] LABS: BILIRUBIN,TOTAL 0.8 mg/dL (0.2-1); TOT PROT 7.1 g/dl (6.4-8.2)
[2020-10-02] MEDS ORDERED: PT OWN MED DRAWER 7, Y5N ONE ×2 (09:05→22:54)
[2020-10-02] MEDS: levETIRAcetam 500 MG/5 ML ORAL SOLUTION (UNIT-DOSE CUPS) GT SCH ×2 (10:24→23:12)
[2020-10-02] MEDS: ENOXAPARIN NA (PORCINE) 40 MG/0.4 ML DISP.SYRIN SQ SCH (10:24)
[2020-10-02] MEDS: TOPIRAMATE 25 MG TABLET PO SCH ×2 (10:25→23:13)
[2020-10-02] MEDS: NYSTATIN/TRIAMCINOLONE TOPICAL CREAM 15 GM TUBE TP SCH ×3 (10:25→23:12)
[2020-10-02] MEDS: SENNOSIDES 8.8 MG/5 ML BULK BOTTLE GT SCH ×2 (10:25→23:12)
[2020-10-02] MEDS: CHLORHEXIDINE GLUCONATE 4% CLEANSER FOR DECOLONIZATION TP SCH (23:12)
[2020-10-03 07:18] LABS: BASO % 0.6 % (0-2.0); EOS % 1.6 % (0-4.5); HEMATOCRIT 36.4 % (32.4-45.2); HEMOGLOBIN 12.3 GM/dL (10.7-15.3); LYMPH % 28.5 % (8-40); MCH 33.8 pg (25.7-33.7); MCHC 33.6 g/dl (32.0-36.0); MEAN CELL VOLUME 100.5 fl (80-96); MONO % 9.5 % (3.8-10.2); NEUT % 59.8 % (42.8-82.8); PLATELET COUNT 308 K/MM3 (134-434); RBC 3.63 M/mm3 (3.60-5.2); RDW 15.9 % (11.6-15.6); WHITE BLOOD COUNT 5.2 K/mm3 (4.0-10.0)
[2020-10-03 07:26] LABS: ALBUMIN 3.6 g/dl (3.4-5.0)
[2020-10-03 07:27] LABS: BLOOD UREA NITROGEN 24.4 mg/dL (7-18); CALCIUM 9.1 mg/dL (8.5-10.1)
[2020-10-03 07:30] LABS: BILIRUBIN,TOTAL 0.4 mg/dL (0.2-1); CREATININE 0.4 mg/dL (0.55-1.3)
[2020-10-03 07:31] LABS: PHOSPHOROUS 4.4 mg/dL (2.5-4.9); TOT PROT 7.6 g/dl (6.4-8.2)
[2020-10-03] MEDS: ENOXAPARIN NA (PORCINE) 40 MG/0.4 ML DISP.SYRIN SQ SCH (09:38)
[2020-10-03] MEDS: levETIRAcetam 500 MG/5 ML ORAL SOLUTION (UNIT-DOSE CUPS) GT SCH ×2 (09:38→22:15)
[2020-10-03] MEDS: NYSTATIN/TRIAMCINOLONE TOPICAL CREAM 15 GM TUBE TP SCH ×2 (09:39→22:15)
[2020-10-03] MEDS: TOPIRAMATE 25 MG TABLET PO SCH ×2 (09:40→22:23)
[2020-10-03] MEDS: SENNOSIDES 8.8 MG/5 ML BULK BOTTLE GT SCH ×2 (11:00→22:17)
[2020-10-03] MEDS: CHLORHEXIDINE GLUCONATE 4% CLEANSER FOR DECOLONIZATION TP SCH (22:14)
[2020-10-04 07:10] LABS: BASO % 0.6 % (0-2.0); EOS % 1.5 % (0-4.5); HEMATOCRIT 35.4 % (32.4-45.2); LYMPH % 38.4 % (8-40); MCH 33.9 pg (25.7-33.7); MCHC 34.1 g/dl (32.0-36.0); MEAN CELL VOLUME 99.6 fl (80-96); MEAN PLT VOLUME 8.9 fl (7.5-11.1); NEUT % 49.5 % (42.8-82.8); PLATELET COUNT 327 K/MM3 (134-434); RBC 3.55 M/mm3 (3.60-5.2); RDW 14.9 % (11.6-15.6); WHITE BLOOD COUNT 4.8 K/mm3 (4.0-10.0)
[2020-10-04 07:32] LABS: CALCIUM 9.7 mg/dL (8.5-10.1)
[2020-10-04 07:33] LABS: ALBUMIN 3.5 g/dl (3.4-5.0); BLOOD UREA NITROGEN 26.8 mg/dL (7-18); MAGNESIUM 2.1 mg/dL (1.8-2.4)
[2020-10-04 07:36] LABS: BILIRUBIN,TOTAL 0.4 mg/dL (0.2-1); CREATININE 0.5 mg/dL (0.55-1.3); PHOSPHOROUS 4.4 mg/dL (2.5-4.9)
[2020-10-04 07:38] LABS: TOT PROT 7.5 g/dl (6.4-8.2)
[2020-10-04] MEDS: NYSTATIN/TRIAMCINOLONE TOPICAL CREAM 15 GM TUBE TP SCH ×2 (09:49→21:36)
[2020-10-04] MEDS: ENOXAPARIN NA (PORCINE) 40 MG/0.4 ML DISP.SYRIN SQ SCH (09:49)
[2020-10-04] MEDS: levETIRAcetam 500 MG/5 ML ORAL SOLUTION (UNIT-DOSE CUPS) GT SCH ×2 (09:49→21:39)
[2020-10-04] MEDS: SENNOSIDES 8.8 MG/5 ML BULK BOTTLE GT SCH ×2 (09:49→21:39)
[2020-10-04] MEDS: TOPIRAMATE 25 MG TABLET PO SCH ×2 (09:53→21:21)
[2020-10-04] MEDS: CHLORHEXIDINE GLUCONATE 4% CLEANSER FOR DECOLONIZATION TP SCH (21:21)
[2020-10-05] MEDS ORDERED: PT OWN MED DRAWER 7, Y5N ONE ×2 (09:17→09:45)
[2020-10-05] MEDS: levETIRAcetam 500 MG/5 ML ORAL SOLUTION (UNIT-DOSE CUPS) GT SCH ×2 (09:41→21:39)
[2020-10-05] MEDS: ENOXAPARIN NA (PORCINE) 40 MG/0.4 ML DISP.SYRIN SQ SCH (09:42)
[2020-10-05] MEDS: TOPIRAMATE 25 MG TABLET PO SCH ×2 (09:42→21:43)
[2020-10-05] MEDS: SENNOSIDES 8.8 MG/5 ML BULK BOTTLE GT SCH ×2 (09:42→21:39)
[2020-10-05] MEDS: NYSTATIN/TRIAMCINOLONE TOPICAL CREAM 15 GM TUBE TP SCH ×2 (09:42→21:39)
[2020-10-05] MEDS: SODIUM CHLORIDE 0.45% 1,000 ML IV SCH ×2 (10:18→21:51)
[2020-10-05 13:43] VITALS: BMI 22.7
[2020-10-05] MEDS: CHLORHEXIDINE GLUCONATE 4% CLEANSER FOR DECOLONIZATION TP SCH (21:38)
[2020-10-06 06:02] VITALS: TEMP 97.3
[2020-10-06 07:36] LABS: BASO % 0.5 % (0-2.0); EOS % 1.5 % (0-4.5); HEMATOCRIT 34.9 % (32.4-45.2); HEMOGLOBIN 11.9 GM/dL (10.7-15.3); LYMPH % 43.3 % (8-40); MCH 33.8 pg (25.7-33.7); MCHC 34.1 g/dl (32.0-36.0); MEAN CELL VOLUME 99.4 fl (80-96); MONO % 12.4 % (3.8-10.2); NEUT % 42.3 % (42.8-82.8); PLATELET COUNT 285 K/MM3 (134-434); RBC 3.51 M/mm3 (3.60-5.2); RDW 14.7 % (11.6-15.6); WHITE BLOOD COUNT 3.9 K/mm3 (4.0-10.0)
[2020-10-06 07:50] LABS: ALBUMIN 3.3 g/dl (3.4-5.0)
[2020-10-06 07:51] LABS: BLOOD UREA NITROGEN 20.2 mg/dL (7-18); CALCIUM 9.2 mg/dL (8.5-10.1); MAGNESIUM 1.9 mg/dL (1.8-2.4)
[2020-10-06 07:53] LABS: PHOSPHOROUS 4.3 mg/dL (2.5-4.9)
[2020-10-06 07:54] LABS: CREATININE 0.4 mg/dL (0.55-1.3)
[2020-10-06 07:58] LABS: BILIRUBIN,TOTAL 0.3 mg/dL (0.2-1); TOT PROT 7.2 g/dl (6.4-8.2)
[2020-10-06] MEDS ORDERED: PT OWN MED DRAWER 7, Y5N ONE ×3 (09:17→15:59)
[2020-10-06] MEDS: ENOXAPARIN NA (PORCINE) 40 MG/0.4 ML DISP.SYRIN SQ SCH (09:24)
[2020-10-06] MEDS: levETIRAcetam 500 MG/5 ML ORAL SOLUTION (UNIT-DOSE CUPS) GT SCH (09:24)
[2020-10-06] MEDS: NYSTATIN/TRIAMCINOLONE TOPICAL CREAM 15 GM TUBE TP SCH (09:24)
[2020-10-06] MEDS: SENNOSIDES 8.8 MG/5 ML BULK BOTTLE GT SCH (09:25)
[2020-10-06] MEDS: TOPIRAMATE 25 MG TABLET PO SCH (09:28)
[2020-10-06 14:12] VITALS: BP 115/65; PULSE 55
== END 2020-10-06 16:00 | disposition home or self-care (01) | DRG 871 ==
LOC: JER 22:40 → JERBED 09-22 03:22 → JICU 09-22 08:39 → J2W 09-27 21:31
PROVIDERS: ADMIT Internal Medicine Pulmonary Disease; ATTEND Internal Medicine
PROC: 3E0G76Z Introduction of Nutritional Substance into Upper GI, Via Natural or Artificial Opening (ICD-10-PCS; principal; 2020-09-22)
PROC: 05H533Z Insertion of Infusion Device into Right Subclavian Vein, Percutaneous Approach (ICD-10-PCS; 2020-09-22)
DX: A41.9 Sepsis, unspecified organism (principal); R65.21 Severe sepsis with septic shock; J18.9 Pneumonia, unspecified organism; R53.2 Functional quadriplegia; E87.0 Hyperosmolality and hypernatremia; J98.11 Atelectasis; G80.9 Cerebral palsy, unspecified; I34.0 Nonrheumatic mitral (valve) insufficiency; G40.909 Epilepsy, unspecified, not intractable, without status epilepticus; K21.9 Gastro-esophageal reflux disease without esophagitis; D64.9 Anemia, unspecified; E16.2 Hypoglycemia, unspecified; R74.01 Elevation of levels of liver transaminase levels; E86.0 Dehydration; R13.10 Dysphagia, unspecified; L30.9 Dermatitis, unspecified; R00.1 Bradycardia, unspecified
CPT/HCPCS: 36415; 71045-TC-FY; 71250-TC; 80048; 80053; 80074; 81003; 82248; 82530; 82533; 82550; 82553; 82728; 82962; 83605; 83615; 83735; 84100; 84439; 84443; 84484; 85025; 85027; 85610; 85730; 86140; 86631; 86632; 86738; 86769; 87040; 87070; 87086; 87109; 87186; 87205; 87804; 87899; 93005; 93010; 94640; 99285-25; C9803; J0131; U0003; U0005

== ENCOUNTER 2021-01-24 08:12 | Inpatient (IN) | payer OTHER ==
[2021-01-24] MEDS ORDERED: SODIUM CHLORIDE IV ONE (09:13)
[2021-01-24] MEDS ORDERED: AZITHROMYCIN IVPB 500 MG in DEXTROSE 5%-WATER - 250 ML IVPB ONE (09:18)
[2021-01-24] MEDS ORDERED: VANCOMYCIN 1 GM in D5W (PRE-DOCKED) 1,000 MG/250 ML IVPB ONE (09:19)
[2021-01-24] MEDS ORDERED: PIPERACILLIN/TAZOB 4.5 GM 4.5 GM in DEXTROSE 5%-WATER 100 ML IVPB ONE (09:19)
[2021-01-24] MEDS ORDERED: ACETAMINOPHEN 1000 MG/100 ML VIAL (NON FORMULARY) IVPB ONE (10:16)
[2021-01-24] MEDS ORDERED: PIPERACILLIN/TAZOB 4.5 GM 4.5 GM/100 ML BAG IVPB ONE (10:28)
[2021-01-24] MEDS ORDERED: ACETAMINOPHEN INJECTION 100 ML IVPB ONE (10:29)
[2021-01-24 10:32] LABS: BASO % 0.1 % (0-2.0); HEMATOCRIT 31.6 % (32.4-45.2); HEMOGLOBIN 11.1 GM/dL (10.7-15.3); LYMPH % 1.6 % (8-40); MCH 32.9 pg (25.7-33.7); MCHC 35.2 g/dl (32.0-36.0); MEAN CELL VOLUME 93.3 fl (80-96); MEAN PLT VOLUME 7.4 fl (7.5-11.1); MONO % 1.7 % (3.8-10.2); NEUT % 96.6 % (42.8-82.8); PLATELET COUNT 191 10^3/uL (134-434); RBC 3.39 M/mm3 (3.60-5.2); RDW 14.8 % (11.6-15.6); WHITE BLOOD COUNT 14.6 K/mm3 (4.0-10.0)
[2021-01-24 10:39] LABS: INR 0.97 (0.83-1.09); PROTHROMBIN TIME (PATIENT) 11.8 SEC (9.7-13.0)
[2021-01-24 10:41] LABS: ACTIVATED PTT 26.7 SECONDS (25.2-36.5)
[2021-01-24 10:58] LABS: CALCIUM 8.6 mg/dL (8.5-10.1)
[2021-01-24 10:59] LABS: ALBUMIN 3.3 g/dl (3.4-5.0); BLOOD UREA NITROGEN 16.3 mg/dL (7-18)
[2021-01-24 11:02] LABS: CREATININE 0.5 mg/dL (0.55-1.3)
[2021-01-24 11:03] LABS: ANISOCYTOSIS 0; BILIRUBIN,TOTAL 0.3 mg/dL (0.2-1); MACROCYTOSIS 0; PLATELET ESTIMATE NORMAL; TOT PROT 7.5 g/dl (6.4-8.2)
[2021-01-24 11:24] LABS: PH,URINE 7.5 (5.0-8.0); URINE APPEARANCE CLEAR; URINE BILIRUBIN NEGATIVE (NEGATIVE); URINE COLOR YELLOW; URINE GLUCOSE (UA) NEGATIVE (NEGATIVE); URINE KETONE NEGATIVE (NEGATIVE); URINE LEUK ESTERASE NEGATIVE (NEGATIVE); URINE NITRITE NEGATIVE (NEGATIVE); URINE PROTEIN NEGATIVE (NEGATIVE)
[2021-01-24] MEDS ORDERED: levETIRAcetam XR 750 MG TAB PO SCH (13:00)
[2021-01-24] MEDS ORDERED: TOPIRAMATE 25 MG TABLET GT SCH (13:00)
[2021-01-24] MEDS ORDERED: VANCOMYCIN 1 GRAM (PRE-DOCKED) 1,000 MG/250 ML BAG IVPB ONE ×2 (13:05→15:00)
[2021-01-24] MEDS ORDERED: AZITHROMYCIN IVPB 500 MG/250 ML BAG IVPB ONE (13:05)
[2021-01-24] MEDS ORDERED: NUTRITIONAL SUPPLEMENT GT SCH (14:00)
[2021-01-24] MEDS ORDERED: BACLOFEN 10 MG TABLET (FP) ONE (15:07)
[2021-01-24] MEDS: LACTATED RINGERS SOLUTION 1,000 ML IV SCH (15:07)
[2021-01-24] MEDS: BACLOFEN 10 MG TABLET (FP) GT SCH ×2 (15:08→23:15)
[2021-01-24] MEDS: OXcarbazepine 300 MG/5 ML 250 ML BULK BOTTLE GT SCH (17:43)
[2021-01-24] MEDS: HEPARIN NA (PORCINE) 5,000 UNITS/ML 1ML VIAL SQ SCH (23:14)
[2021-01-24] MEDS: TOPIRAMATE 25 MG TABLET GT SCH (23:15)
[2021-01-25] MEDS: OXcarbazepine 300 MG/5 ML 250 ML BULK BOTTLE GT SCH ×3 (00:55→22:11)
[2021-01-25] MEDS: levETIRAcetam 500 MG/5 ML ORAL SOLUTION (UNIT-DOSE CUPS) GT SCH ×3 (00:55→22:45)
[2021-01-25] MEDS: SENNOSIDES 8.8 MG/5 ML BULK BOTTLE GT SCH ×3 (00:55→22:12)
[2021-01-25] MEDS: LACTATED RINGERS SOLUTION 1,000 ML IV SCH (05:33)
[2021-01-25] MEDS: BACLOFEN 10 MG TABLET (FP) GT SCH ×3 (06:28→22:12)
[2021-01-25 09:23] LABS: BASO % 0.1 % (0-2.0); EOS % 0.2 % (0-4.5); HEMATOCRIT 29.9 % (32.4-45.2); HEMOGLOBIN 10.3 GM/dL (10.7-15.3); LYMPH % 10.9 % (8-40); MCH 32.9 pg (25.7-33.7); MCHC 34.5 g/dl (32.0-36.0); MEAN CELL VOLUME 95.3 fl (80-96); MONO % 6.2 % (3.8-10.2); NEUT % 82.6 % (42.8-82.8); PLATELET COUNT 187 10^3/uL (134-434); RBC 3.14 M/mm3 (3.60-5.2); RDW 15.1 % (11.6-15.6); WHITE BLOOD COUNT 6.4 K/mm3 (4.0-10.0)
[2021-01-25 09:50] LABS: CALCIUM 8.8 mg/dL (8.5-10.1)
[2021-01-25 09:51] LABS: BLOOD UREA NITROGEN 8.6 mg/dL (7-18); MAGNESIUM 1.7 mg/dL (1.8-2.4)
[2021-01-25 09:53] LABS: CREATININE 0.5 mg/dL (0.55-1.3)
[2021-01-25 09:55] LABS: BILIRUBIN,TOTAL 0.3 mg/dL (0.2-1); TOT PROT 6.8 g/dl (6.4-8.2)
[2021-01-25] MEDS: TOPIRAMATE 25 MG TABLET GT SCH ×2 (09:59→22:11)
[2021-01-25] MEDS: HEPARIN NA (PORCINE) 5,000 UNITS/ML 1ML VIAL SQ SCH ×2 (10:00→22:12)
[2021-01-25] MEDS: CHOLECALCIFEROL (VIT D SOLUTION) 400 UNIT/1 ML DROPS GT SCH (10:00)
[2021-01-25] MEDS ORDERED: PIPERACILLIN/TAZOBACTAM 2.25 GM VIAL IVPB ONE ×2 (12:05→18:16)
[2021-01-25] MEDS ORDERED: DEXTROSE 5%-WATER - 50 ML IVPB ONE ×2 (12:05→18:16)
[2021-01-25] MEDS: PIPERACILLIN/TAZOB 2.25 GM 2.25 GM in DEXTROSE 5%-WATER - 50 ML IVPB SCH ×2 (12:11→18:21)
[2021-01-25] MEDS: SODIUM CHLORIDE 1,000 ML IV SCH ×2 (14:50→22:49)
[2021-01-25] MEDS ORDERED: VANCOMYCIN 1 GRAM (PRE-DOCKED) 1,000 MG/250 ML BAG IVPB ONE (17:24)
[2021-01-25] MEDS ORDERED: PT OWN MED DRAWER 7, Y5N ONE (21:08)
[2021-01-26] MEDS ORDERED: DEXTROSE 5%-WATER - 50 ML IVPB ONE ×3 (00:55→18:30)
[2021-01-26] MEDS ORDERED: PIPERACILLIN/TAZOBACTAM 2.25 GM VIAL IVPB ONE ×3 (00:55→18:30)
[2021-01-26] MEDS: PIPERACILLIN/TAZOB 2.25 GM 2.25 GM in DEXTROSE 5%-WATER - 50 ML IVPB SCH ×3 (01:02→18:54)
[2021-01-26] MEDS: BACLOFEN 10 MG TABLET (FP) GT SCH ×3 (06:19→22:04)
[2021-01-26 09:49] LABS: BASO % 0.3 % (0-2.0); EOS % 0.8 % (0-4.5); HEMATOCRIT 26.9 % (32.4-45.2); HEMOGLOBIN 9.5 GM/dL (10.7-15.3); LYMPH % 30.1 % (8-40); MCH 33.6 pg (25.7-33.7); MCHC 35.3 g/dl (32.0-36.0); MEAN CELL VOLUME 95.3 fl (80-96); MONO % 9.3 % (3.8-10.2); NEUT % 59.5 % (42.8-82.8); PLATELET COUNT 185 10^3/uL (134-434); RBC 2.83 M/mm3 (3.60-5.2); RDW 15.4 % (11.6-15.6); WHITE BLOOD COUNT 4.8 K/mm3 (4.0-10.0)
[2021-01-26 10:07] LABS: CREATININE 0.5 mg/dL (0.55-1.3)
[2021-01-26 10:08] LABS: CALCIUM 8.2 mg/dL (8.5-10.1)
[2021-01-26 10:19] LABS: ALBUMIN 2.8 g/dl (3.4-5.0)
[2021-01-26 10:24] LABS: BILIRUBIN,TOTAL 0.3 mg/dL (0.2-1); TOT PROT 6.2 g/dl (6.4-8.2)
[2021-01-26] MEDS: levETIRAcetam 500 MG/5 ML ORAL SOLUTION (UNIT-DOSE CUPS) GT SCH ×2 (10:38→22:04)
[2021-01-26] MEDS: TOPIRAMATE 25 MG TABLET GT SCH ×2 (10:38→22:04)
[2021-01-26] MEDS: HEPARIN NA (PORCINE) 5,000 UNITS/ML 1ML VIAL SQ SCH (10:39)
[2021-01-26] MEDS: SENNOSIDES 8.8 MG/5 ML BULK BOTTLE GT SCH ×2 (10:39→22:04)
[2021-01-26] MEDS: OXcarbazepine 300 MG/5 ML 250 ML BULK BOTTLE GT SCH ×2 (10:41→22:04)
[2021-01-26] MEDS ORDERED: LACTATED RINGERS SOLUTION 1,000 ML with POTASSIUM CHLORIDE 20 MEQ IV ONE (10:46)
[2021-01-26] MEDS: CHOLECALCIFEROL (VIT D SOLUTION) 400 UNIT/1 ML DROPS GT SCH (11:29)
[2021-01-26] MEDS ORDERED: POTASSIUM CHLORIDE 20 MEQ in LACTATED RINGERS SOLUTION 1,000 ML IV ONE (12:45)
[2021-01-26] MEDS ORDERED: POTASSIUM CHLORIDE ORAL LIQUID 20 MEQ/15 ML GT ONE (14:19)
[2021-01-26] MEDS: AMINO ACIDS 4.25%/D5W 1,000 ML IV SCH (14:20)
[2021-01-26] MEDS: BACITRACIN 15 GM TUBE TOPICAL OINTMENT TP SCH (14:23)
[2021-01-26] MEDS: SODIUM CHLORIDE 1,000 ML IV SCH (14:24)
[2021-01-26 16:08] LABS: HEP B CORE AB, TOT Positive (Negative)
[2021-01-26 16:27] VITALS: BMI 27.3
[2021-01-26] MEDS ORDERED: diazePAM RECTAL GEL 10 MG KIT (PRE-CALIBRATED) RC PRN (16:27)
[2021-01-26] MEDS ORDERED: PT OWN MED DRAWER 7, Y5N ONE (21:13)
[2021-01-27] MEDS: AMINO ACIDS 4.25%/D5W 1,000 ML IV SCH ×2 (01:23→02:10)
[2021-01-27] MEDS ORDERED: PIPERACILLIN/TAZOBACTAM 2.25 GM VIAL IVPB ONE ×3 (01:50→17:24)
[2021-01-27] MEDS ORDERED: DEXTROSE 5%-WATER - 50 ML IVPB ONE ×3 (01:50→17:24)
[2021-01-27] MEDS: PIPERACILLIN/TAZOB 2.25 GM 2.25 GM in DEXTROSE 5%-WATER - 50 ML IVPB SCH ×3 (01:50→17:31)
[2021-01-27] MEDS: BACLOFEN 10 MG TABLET (FP) GT SCH ×3 (06:24→21:12)
[2021-01-27 08:33] LABS: BASO % 0.3 % (0-2.0); EOS % 0.8 % (0-4.5); HEMATOCRIT 27.1 % (32.4-45.2); HEMOGLOBIN 9.4 GM/dL (10.7-15.3); LYMPH % 32.1 % (8-40); MCH 33.3 pg (25.7-33.7); MCHC 34.9 g/dl (32.0-36.0); MEAN CELL VOLUME 95.6 fl (80-96); MEAN PLT VOLUME 8.2 fl (7.5-11.1); MONO % 7.9 % (3.8-10.2); NEUT % 58.9 % (42.8-82.8); PLATELET COUNT 183 10^3/uL (134-434); RBC 2.83 M/mm3 (3.60-5.2); WHITE BLOOD COUNT 4.7 K/mm3 (4.0-10.0)
[2021-01-27 09:27] LABS: ALBUMIN 2.6 g/dl (3.4-5.0); BILIRUBIN,TOTAL 0.3 mg/dL (0.2-1); BLOOD UREA NITROGEN 19.1 mg/dL (7-18); CREATININE 0.5 mg/dL (0.55-1.3); MAGNESIUM 1.6 mg/dL (1.8-2.4); PHOSPHOROUS 3.4 mg/dL (2.5-4.9); TOT PROT 6.1 g/dl (6.4-8.2)
[2021-01-27] MEDS ORDERED: PT OWN MED DRAWER 7, Y5N ONE (09:36)
[2021-01-27] MEDS: levETIRAcetam 500 MG/5 ML ORAL SOLUTION (UNIT-DOSE CUPS) GT SCH ×2 (09:42→21:11)
[2021-01-27] MEDS: CHOLECALCIFEROL (VIT D SOLUTION) 400 UNIT/1 ML DROPS GT SCH (09:42)
[2021-01-27] MEDS: TOPIRAMATE 25 MG TABLET GT SCH ×2 (09:42→21:12)
[2021-01-27] MEDS: SENNOSIDES 8.8 MG/5 ML BULK BOTTLE GT SCH ×2 (09:43→21:13)
[2021-01-27] MEDS: OXcarbazepine 300 MG/5 ML 250 ML BULK BOTTLE GT SCH ×2 (09:45→21:11)
[2021-01-27] MEDS: BACITRACIN 15 GM TUBE TOPICAL OINTMENT TP SCH (09:46)
[2021-01-27] MEDS ORDERED: VANCOMYCIN 1 GRAM (PRE-DOCKED) 1,000 MG/250 ML BAG IVPB ONE (10:08)
[2021-01-27] MEDS ORDERED: MAGNESIUM SULF 50% (8.12 MEQ/2 ML-1 GM VIAL) IVPB ONE (11:53)
[2021-01-27] MEDS: SODIUM CHLORIDE 1,000 ML IV SCH (16:50)
[2021-01-28] MEDS ORDERED: PIPERACILLIN/TAZOBACTAM 2.25 GM VIAL IVPB ONE ×2 (01:27→09:52)
[2021-01-28] MEDS ORDERED: DEXTROSE 5%-WATER - 50 ML IVPB ONE ×2 (01:27→09:52)
[2021-01-28] MEDS: PIPERACILLIN/TAZOB 2.25 GM 2.25 GM in DEXTROSE 5%-WATER - 50 ML IVPB SCH ×2 (01:32→10:00)
[2021-01-28] MEDS: BACLOFEN 10 MG TABLET (FP) GT SCH ×3 (06:00→21:44)
[2021-01-28 09:13] LABS: BASO % 0.6 % (0-2.0); EOS % 0.9 % (0-4.5); HEMATOCRIT 27.7 % (32.4-45.2); HEMOGLOBIN 9.5 GM/dL (10.7-15.3); LYMPH % 38.9 % (8-40); MCH 32.4 pg (25.7-33.7); MCHC 34.3 g/dl (32.0-36.0); MEAN CELL VOLUME 94.2 fl (80-96); MEAN PLT VOLUME 7.9 fl (7.5-11.1); MONO % 7.3 % (3.8-10.2); NEUT % 52.3 % (42.8-82.8); PLATELET COUNT 192 10^3/uL (134-434); RBC 2.94 M/mm3 (3.60-5.2); RDW 15.1 % (11.6-15.6); WHITE BLOOD COUNT 3.9 K/mm3 (4.0-10.0)
[2021-01-28 09:21] LABS: INR 1.06 (0.83-1.09); PROTHROMBIN TIME (PATIENT) 12.8 SEC (9.7-13.0)
[2021-01-28 09:33] LABS: IRON SERUM 75 ug/dL (50-175); TOTAL IRON BINDING CAPACITY 242 ug/dL (250-450)
[2021-01-28 09:49] LABS: ALBUMIN 2.6 g/dl (3.4-5.0)
[2021-01-28 09:51] LABS: PHOSPHOROUS 4.2 mg/dL (2.5-4.9)
[2021-01-28] MEDS ORDERED: PT OWN MED DRAWER 7, Y5N ONE ×2 (09:52→21:17)
[2021-01-28 09:53] LABS: CALCIUM 8.2 mg/dL (8.5-10.1)
[2021-01-28 09:54] LABS: BLOOD UREA NITROGEN 12.8 mg/dL (7-18)
[2021-01-28 09:55] LABS: CREATININE 0.4 mg/dL (0.55-1.3)
[2021-01-28] MEDS: TOPIRAMATE 25 MG TABLET GT SCH ×2 (10:00→21:44)
[2021-01-28] MEDS: CHOLECALCIFEROL (VIT D SOLUTION) 400 UNIT/1 ML DROPS GT SCH (10:00)
[2021-01-28] MEDS: POLYETHYLENE GLYCOL (HEALTHYLAX) 3350 17 GM PACKET GT SCH (10:00)
[2021-01-28] MEDS: OXcarbazepine 300 MG/5 ML 250 ML BULK BOTTLE GT SCH ×2 (10:00→21:45)
[2021-01-28] MEDS: levETIRAcetam 500 MG/5 ML ORAL SOLUTION (UNIT-DOSE CUPS) GT SCH ×2 (10:00→21:44)
[2021-01-28] MEDS: SENNOSIDES 8.8 MG/5 ML BULK BOTTLE GT SCH ×2 (10:01→21:46)
[2021-01-28] MEDS: BACITRACIN 15 GM TUBE TOPICAL OINTMENT TP SCH (10:01)
[2021-01-28 10:04] LABS: BILIRUBIN,TOTAL 0.3 mg/dL (0.2-1)
[2021-01-28] MEDS: SODIUM CHLORIDE 1,000 ML IV SCH (14:57)
[2021-01-28] MEDS: CEFTAZIDIME PENTAHYDRATE 1 GM in DEXTROSE 5%-WATER - 50 ML IVPB SCH (17:10)
[2021-01-28] MEDS ORDERED: cefTAZidime PENTAHYDRATE 1 GM/50ML PRE-DOCKED (RESTRICTED TO ID) IVPB SCH (18:00)
[2021-01-28] MEDS: TRIAMCINOLONE ACET 0.1% CREAM 15 GM TUBE TP SCH (21:44)
[2021-01-29] MEDS: CEFTAZIDIME PENTAHYDRATE 1 GM in DEXTROSE 5%-WATER - 50 ML IVPB SCH ×2 (01:58→10:46)
[2021-01-29] MEDS: BACLOFEN 10 MG TABLET (FP) GT SCH ×3 (06:14→21:03)
[2021-01-29 09:29] LABS: BASO % 0.4 % (0-2.0); EOS % 1.1 % (0-4.5); HEMATOCRIT 28.4 % (32.4-45.2); HEMOGLOBIN 9.8 GM/dL (10.7-15.3); LYMPH % 45.1 % (8-40); MCH 32.7 pg (25.7-33.7); MCHC 34.5 g/dl (32.0-36.0); MEAN CELL VOLUME 94.8 fl (80-96); MEAN PLT VOLUME 8.1 fl (7.5-11.1); MONO % 8.2 % (3.8-10.2); NEUT % 45.2 % (42.8-82.8); PLATELET COUNT 207 10^3/uL (134-434); RBC 2.99 M/mm3 (3.60-5.2); RDW 15.3 % (11.6-15.6)
[2021-01-29 09:50] LABS: ALBUMIN 2.7 g/dl (3.4-5.0); BLOOD UREA NITROGEN 14.8 mg/dL (7-18)
[2021-01-29 09:51] LABS: CALCIUM 8.4 mg/dL (8.5-10.1)
[2021-01-29] MEDS ORDERED: PT OWN MED DRAWER 7, Y5N ONE ×3 (09:52→20:47)
[2021-01-29 09:53] LABS: PHOSPHOROUS 4.3 mg/dL (2.5-4.9)
[2021-01-29 09:55] LABS: BILIRUBIN,TOTAL 0.3 mg/dL (0.2-1); CREATININE 0.4 mg/dL (0.55-1.3); TOT PROT 6.2 g/dl (6.4-8.2)
[2021-01-29] MEDS: TRIAMCINOLONE ACET 0.1% CREAM 15 GM TUBE TP SCH ×2 (10:16→23:00)
[2021-01-29] MEDS: BACITRACIN 15 GM TUBE TOPICAL OINTMENT TP SCH (10:16)
[2021-01-29] MEDS: TOPIRAMATE 25 MG TABLET GT SCH ×2 (10:17→21:03)
[2021-01-29] MEDS: levETIRAcetam 500 MG/5 ML ORAL SOLUTION (UNIT-DOSE CUPS) GT SCH ×2 (10:17→23:00)
[2021-01-29] MEDS: OXcarbazepine 300 MG/5 ML 250 ML BULK BOTTLE GT SCH ×2 (10:18→21:05)
[2021-01-29] MEDS: CHOLECALCIFEROL (VIT D SOLUTION) 400 UNIT/1 ML DROPS GT SCH (10:19)
[2021-01-29] MEDS: SENNOSIDES 8.8 MG/5 ML BULK BOTTLE GT SCH ×2 (10:46→21:05)
[2021-01-29] MEDS: POLYETHYLENE GLYCOL (HEALTHYLAX) 3350 17 GM PACKET GT SCH (10:46)
[2021-01-30] MEDS: BACLOFEN 10 MG TABLET (FP) GT SCH ×3 (05:46→21:59)
[2021-01-30] MEDS: TOPIRAMATE 25 MG TABLET GT SCH ×2 (09:13→22:02)
[2021-01-30] MEDS: SENNOSIDES 8.8 MG/5 ML BULK BOTTLE GT SCH ×2 (09:13→23:00)
[2021-01-30] MEDS: POLYETHYLENE GLYCOL (HEALTHYLAX) 3350 17 GM PACKET GT SCH (09:13)
[2021-01-30] MEDS: CHOLECALCIFEROL (VIT D SOLUTION) 400 UNIT/1 ML DROPS GT SCH (09:14)
[2021-01-30] MEDS ORDERED: PT OWN MED DRAWER 7, Y5N ONE ×3 (09:52→21:53)
[2021-01-30 10:13] LABS: BASO % 0.4 % (0-2.0); EOS % 1.2 % (0-4.5); HEMATOCRIT 28.6 % (32.4-45.2); LYMPH % 45.7 % (8-40); MCH 33.5 pg (25.7-33.7); MEAN CELL VOLUME 95.6 fl (80-96); MONO % 7.8 % (3.8-10.2); NEUT % 44.9 % (42.8-82.8); PLATELET COUNT 253 10^3/uL (134-434); RBC 2.99 M/mm3 (3.60-5.2); WHITE BLOOD COUNT 4.6 K/mm3 (4.0-10.0)
[2021-01-30] MEDS: OXcarbazepine 300 MG/5 ML 250 ML BULK BOTTLE GT SCH ×2 (10:24→22:03)
[2021-01-30] MEDS: TRIAMCINOLONE ACET 0.1% CREAM 15 GM TUBE TP SCH ×2 (10:26→22:03)
[2021-01-30] MEDS: BACITRACIN 15 GM TUBE TOPICAL OINTMENT TP SCH (10:36)
[2021-01-30 10:53] LABS: ALBUMIN 2.8 g/dl (3.4-5.0); BILIRUBIN,TOTAL 0.9 mg/dL (0.2-1); BLOOD UREA NITROGEN 13.1 mg/dL (7-18); CALCIUM 8.5 mg/dL (8.5-10.1); CREATININE 0.5 mg/dL (0.55-1.3); TOT PROT 6.4 g/dl (6.4-8.2)
[2021-01-30] MEDS: levETIRAcetam 500 MG/5 ML ORAL SOLUTION (UNIT-DOSE CUPS) GT SCH ×2 (11:42→22:00)
[2021-01-31] MEDS: BACLOFEN 10 MG TABLET (FP) GT SCH ×3 (05:49→22:12)
[2021-01-31 10:06] LABS: BASO % 0.5 % (0-2.0); EOS % 1.3 % (0-4.5); HEMATOCRIT 28.8 % (32.4-45.2); LYMPH % 45.8 % (8-40); MCH 33.4 pg (25.7-33.7); MCHC 34.9 g/dl (32.0-36.0); MEAN CELL VOLUME 95.7 fl (80-96); MEAN PLT VOLUME 7.9 fl (7.5-11.1); MONO % 10.4 % (3.8-10.2); PLATELET COUNT 280 10^3/uL (134-434); RBC 3.01 M/mm3 (3.60-5.2); RDW 14.9 % (11.6-15.6); WHITE BLOOD COUNT 4.1 K/mm3 (4.0-10.0)
[2021-01-31] MEDS ORDERED: PT OWN MED DRAWER 7, Y5N ONE ×4 (10:15→21:58)
[2021-01-31 10:22] LABS: ALBUMIN 2.9 g/dl (3.4-5.0); CALCIUM 8.6 mg/dL (8.5-10.1); MAGNESIUM 1.9 mg/dL (1.8-2.4)
[2021-01-31 10:25] LABS: CREATININE 0.4 mg/dL (0.55-1.3); PHOSPHOROUS 4.7 mg/dL (2.5-4.9)
[2021-01-31] MEDS: BACITRACIN 15 GM TUBE TOPICAL OINTMENT TP SCH (10:26)
[2021-01-31] MEDS: TRIAMCINOLONE ACET 0.1% CREAM 15 GM TUBE TP SCH ×2 (10:26→22:12)
[2021-01-31 10:27] LABS: BILIRUBIN,TOTAL 0.2 mg/dL (0.2-1); TOT PROT 6.4 g/dl (6.4-8.2)
[2021-01-31] MEDS: CHOLECALCIFEROL (VIT D SOLUTION) 400 UNIT/1 ML DROPS GT SCH (10:34)
[2021-01-31] MEDS: OXcarbazepine 300 MG/5 ML 250 ML BULK BOTTLE GT SCH ×2 (10:34→22:14)
[2021-01-31] MEDS: TOPIRAMATE 25 MG TABLET GT SCH ×2 (10:35→22:15)
[2021-01-31] MEDS: SENNOSIDES 8.8 MG/5 ML BULK BOTTLE GT SCH ×2 (10:35→22:11)
[2021-01-31] MEDS: POLYETHYLENE GLYCOL (HEALTHYLAX) 3350 17 GM PACKET GT SCH (10:35)
[2021-01-31] MEDS ORDERED: PIPERACILLIN/TAZOB 3.375 GM 3.375 GM in DEXTROSE 5%-WATER - 50 ML IVPB SCH (11:45)
[2021-01-31] MEDS: levETIRAcetam 500 MG/5 ML ORAL SOLUTION (UNIT-DOSE CUPS) GT SCH ×2 (12:17→22:12)
[2021-01-31] MEDS ORDERED: cefTAZidime PENTAHYDRATE 1 GM VIAL (RESTRICTED TO ID) ONE ×2 (12:24→17:12)
[2021-01-31] MEDS ORDERED: DEXTROSE 5%-WATER - 50 ML IVPB ONE ×2 (12:24→17:12)
[2021-01-31] MEDS: CEFTAZIDIME PENTAHYDRATE 1 GM in DEXTROSE 5%-WATER - 50 ML IVPB SCH ×4 (12:28→18:04)
[2021-02-01] MEDS ORDERED: DEXTROSE 5%-WATER - 50 ML IVPB ONE ×3 (01:10→17:43)
[2021-02-01] MEDS ORDERED: cefTAZidime PENTAHYDRATE 1 GM VIAL (RESTRICTED TO ID) ONE ×3 (01:10→17:43)
[2021-02-01] MEDS: CEFTAZIDIME PENTAHYDRATE 1 GM in DEXTROSE 5%-WATER - 50 ML IVPB SCH ×3 (01:18→18:09)
[2021-02-01] MEDS: BACLOFEN 10 MG TABLET (FP) GT SCH ×3 (05:48→22:08)
[2021-02-01 08:18] LABS: BASO % 0.4 % (0-2.0); EOS % 1.3 % (0-4.5); HEMATOCRIT 29.9 % (32.4-45.2); HEMOGLOBIN 10.3 GM/dL (10.7-15.3); LYMPH % 33.6 % (8-40); MCH 33.1 pg (25.7-33.7); MCHC 34.4 g/dl (32.0-36.0); MEAN CELL VOLUME 96.1 fl (80-96); MONO % 7.6 % (3.8-10.2); NEUT % 57.1 % (42.8-82.8); PLATELET COUNT 334 10^3/uL (134-434); RBC 3.12 M/mm3 (3.60-5.2); RDW 14.9 % (11.6-15.6); WHITE BLOOD COUNT 4.8 K/mm3 (4.0-10.0)
[2021-02-01 08:31] LABS: CALCIUM 8.5 mg/dL (8.5-10.1)
[2021-02-01 08:32] LABS: BLOOD UREA NITROGEN 17.8 mg/dL (7-18); MAGNESIUM 1.9 mg/dL (1.8-2.4)
[2021-02-01 08:33] LABS: BILIRUBIN,TOTAL 0.3 mg/dL (0.2-1); TOT PROT 6.6 g/dl (6.4-8.2)
[2021-02-01 08:34] LABS: CREATININE 0.4 mg/dL (0.55-1.3); PHOSPHOROUS 4.5 mg/dL (2.5-4.9)
[2021-02-01] MEDS ORDERED: PT OWN MED DRAWER 7, Y5N ONE ×2 (09:48→21:59)
[2021-02-01] MEDS: OXcarbazepine 300 MG/5 ML 250 ML BULK BOTTLE GT SCH ×2 (09:56→22:32)
[2021-02-01] MEDS: levETIRAcetam 500 MG/5 ML ORAL SOLUTION (UNIT-DOSE CUPS) GT SCH ×2 (09:56→22:01)
[2021-02-01] MEDS: CHOLECALCIFEROL (VIT D SOLUTION) 400 UNIT/1 ML DROPS GT SCH (09:58)
[2021-02-01] MEDS: SENNOSIDES 8.8 MG/5 ML BULK BOTTLE GT SCH ×2 (09:59→22:09)
[2021-02-01] MEDS: POLYETHYLENE GLYCOL (HEALTHYLAX) 3350 17 GM PACKET GT SCH (10:01)
[2021-02-01] MEDS: TOPIRAMATE 25 MG TABLET GT SCH ×2 (10:01→22:08)
[2021-02-01] MEDS: TRIAMCINOLONE ACET 0.1% CREAM 15 GM TUBE TP SCH ×2 (10:02→22:32)
[2021-02-01] MEDS: BACITRACIN 15 GM TUBE TOPICAL OINTMENT TP SCH (10:02)
[2021-02-02] MEDS ORDERED: DEXTROSE 5%-WATER - 50 ML IVPB ONE ×2 (01:19→11:45)
[2021-02-02] MEDS ORDERED: cefTAZidime PENTAHYDRATE 1 GM VIAL (RESTRICTED TO ID) ONE ×2 (01:19→11:45)
[2021-02-02] MEDS: CEFTAZIDIME PENTAHYDRATE 1 GM in DEXTROSE 5%-WATER - 50 ML IVPB SCH ×2 (01:24→12:03)
[2021-02-02] MEDS: BACLOFEN 10 MG TABLET (FP) GT SCH ×2 (05:25→14:17)
[2021-02-02 10:35] LABS: BASO % 0.7 % (0-2.0); EOS % 1.1 % (0-4.5); HEMATOCRIT 31.5 % (32.4-45.2); HEMOGLOBIN 10.7 GM/dL (10.7-15.3); LYMPH % 38.9 % (8-40); MCH 33.2 pg (25.7-33.7); MCHC 34.1 g/dl (32.0-36.0); MEAN CELL VOLUME 97.3 fl (80-96); MEAN PLT VOLUME 8.3 fl (7.5-11.1); MONO % 6.7 % (3.8-10.2); NEUT % 52.6 % (42.8-82.8); PLATELET COUNT 311 10^3/uL (134-434); RBC 3.23 M/mm3 (3.60-5.2); RDW 14.8 % (11.6-15.6)
[2021-02-02] MEDS ORDERED: PT OWN MED DRAWER 7, Y5N ONE (11:46)
[2021-02-02] MEDS: levETIRAcetam 500 MG/5 ML ORAL SOLUTION (UNIT-DOSE CUPS) GT SCH (12:04)
[2021-02-02] MEDS: CHOLECALCIFEROL (VIT D SOLUTION) 400 UNIT/1 ML DROPS GT SCH (12:05)
[2021-02-02] MEDS: OXcarbazepine 300 MG/5 ML 250 ML BULK BOTTLE GT SCH (12:05)
[2021-02-02] MEDS: TOPIRAMATE 25 MG TABLET GT SCH (12:06)
[2021-02-02] MEDS: POLYETHYLENE GLYCOL (HEALTHYLAX) 3350 17 GM PACKET GT SCH (12:06)
[2021-02-02] MEDS: SENNOSIDES 8.8 MG/5 ML BULK BOTTLE GT SCH (12:07)
[2021-02-02] MEDS: TRIAMCINOLONE ACET 0.1% CREAM 15 GM TUBE TP SCH (12:09)
[2021-02-02] MEDS: BACITRACIN 15 GM TUBE TOPICAL OINTMENT TP SCH (12:09)
[2021-02-02 13:09] LABS: CALCIUM 8.7 mg/dL (8.5-10.1)
[2021-02-02 13:10] LABS: ALBUMIN 3.1 g/dl (3.4-5.0); BLOOD UREA NITROGEN 20.4 mg/dL (7-18); MAGNESIUM 2.1 mg/dL (1.8-2.4)
[2021-02-02 13:14] LABS: BILIRUBIN,TOTAL 0.3 mg/dL (0.2-1); CREATININE 0.5 mg/dL (0.55-1.3); PHOSPHOROUS 4.3 mg/dL (2.5-4.9)
[2021-02-02 14:27] VITALS: BP 121/74; PULSE 70; TEMP 98.7
== END 2021-02-02 18:32 | DRG 871 ==
LOC: JER 08:12 → JERBED 11:19 → J6S 15:10
PROVIDERS: ADMIT Internal Medicine
DX: A41.52 Sepsis due to Pseudomonas (principal); J69.0 Pneumonitis due to inhalation of food and vomit; R53.2 Functional quadriplegia; J96.01 Acute respiratory failure with hypoxia; G80.1 Spastic diplegic cerebral palsy; G40.909 Epilepsy, unspecified, not intractable, without status epilepticus; R74.01 Elevation of levels of liver transaminase levels; R23.3 Spontaneous ecchymoses; Z93.1 Gastrostomy status; I34.0 Nonrheumatic mitral (valve) insufficiency
CPT/HCPCS: 36415; 71045-TC-FY; 73590-TC-RT-FY; 76705-TC; 80048; 80053; 80177; 80183; 80201; 81003; 82550; 82977; 83516; 83540; 83550; 83605; 83735; 84100; 85025; 85610; 85730; 86038; 86140; 86704; 86706; 86707; 86708; 86709; 87040; 87070; 87076; 87086; 87186; 87205; 87340; 87517; 87522; 87804; 93005; 93010; 99285-25; C9803; J0131; J0475; J1644; U0003; U0005

== ENCOUNTER 2021-03-13 15:11 | Inpatient (IN) | payer OTHER ==
[2021-03-13] MEDS ORDERED: VANCOMYCIN 1 GM in D5W (PRE-DOCKED) 1,000 MG/250 ML IVPB ONE (16:34)
[2021-03-13] MEDS ORDERED: PIPERACILLIN/TAZOB 4.5 GM 3.375 GM in DEXTROSE 5%-WATER 100 ML IVPB ONE (16:34)
[2021-03-13] MEDS ORDERED: SODIUM CHLORIDE 0.9% 500 ML INFUS.BAG IV ONE (16:42)
[2021-03-13] MEDS ORDERED: VANCOMYCIN 1 GRAM (PRE-DOCKED) 1,000 MG/250 ML BAG IVPB ONE (17:14)
[2021-03-13 17:59] LABS: VENOUS BASE EXCESS -3.9 mmol/L (-2-2); VENOUS O2 SATURATION 88.3 % (70-80); VENOUS PH 7.296 (7.310-7.410)
[2021-03-13 18:09] LABS: BASO % 0.2 % (0-2.0); EOS % 0.2 % (0-4.5); HEMATOCRIT 32.7 % (32.4-45.2); HEMOGLOBIN 11.1 GM/dL (10.7-15.3); LYMPH % 30.6 % (8-40); MCH 32.7 pg (25.7-33.7); MEAN CELL VOLUME 96.2 fl (80-96); MEAN PLT VOLUME 9.4 fl (7.5-11.1); MONO % 7.8 % (3.8-10.2); NEUT % 61.2 % (42.8-82.8); PLATELET COUNT 112 10^3/uL (134-434); RDW 16.7 % (11.6-15.6); WHITE BLOOD COUNT 3.5 K/mm3 (4.0-10.0)
[2021-03-13] MEDS ORDERED: LORazepam 2 MG/ML SDV VIAL ONE (18:23)
[2021-03-13 18:24] LABS: CALCIUM 8.8 mg/dL (8.5-10.1)
[2021-03-13] MEDS ORDERED: levETIRAcetam 500 MG/5 ML INJECTION VIAL IVPB ONE ×2 (18:24→18:25)
[2021-03-13 18:26] LABS: ALBUMIN 3.3 g/dl (3.4-5.0); BLOOD UREA NITROGEN 16.6 mg/dL (7-18)
[2021-03-13 18:28] LABS: CREATININE 0.4 mg/dL (0.55-1.3); PHOSPHOROUS 3.4 mg/dL (2.5-4.9)
[2021-03-13 18:29] LABS: BILIRUBIN,TOTAL 0.2 mg/dL (0.2-1); TOT PROT 7.4 g/dl (6.4-8.2)
[2021-03-13 18:49] LABS: EPI CELLS 6 /uL (0-25.1); HYALINE CASTS 0 /uL (0-3.1); PH,URINE 7.5 (5.0-8.0); URINE APPEARANCE CLEAR; URINE BACTERIA 1121 /uL (0-1359); URINE BILIRUBIN NEGATIVE (NEGATIVE); URINE COLOR YELLOW; URINE GLUCOSE (UA) NEGATIVE (NEGATIVE); URINE KETONE NEGATIVE (NEGATIVE); URINE LEUK ESTERASE TRACE (NEGATIVE); URINE NITRITE NEGATIVE (NEGATIVE); URINE PROTEIN NEGATIVE (NEGATIVE); URINE RBC 1 /uL (0-23.9); URINE UROBILINOGEN 0.2 mg/dL (0.2-1.0); URINE WBC 35 /uL (0-25.8)
[2021-03-13] MEDS ORDERED: LORazepam 2 MG/ML SDV VIAL IVPUSH ONE (19:47)
[2021-03-14] MEDS ORDERED: LORazepam 2 MG/ML SDV VIAL IVPUSH PRN ×2 (00:51→00:54)
[2021-03-14] MEDS ORDERED: VANCOMYCIN 1 GRAM (PRE-DOCKED) 1,000 MG/250 ML BAG IVPB SCH (06:30)
[2021-03-14 08:29] LABS: BASO % 0.2 % (0-2.0); EOS % 0.4 % (0-4.5); HEMATOCRIT 28.4 % (32.4-45.2); HEMOGLOBIN 9.8 GM/dL (10.7-15.3); LYMPH % 21.7 % (8-40); MCHC 34.5 g/dl (32.0-36.0); MEAN CELL VOLUME 95.6 fl (80-96); MEAN PLT VOLUME 8.2 fl (7.5-11.1); MONO % 6.9 % (3.8-10.2); NEUT % 70.8 % (42.8-82.8); PLATELET COUNT 98 10^3/uL (134-434); RBC 2.97 M/mm3 (3.60-5.2); RDW 16.6 % (11.6-15.6); WHITE BLOOD COUNT 4.1 K/mm3 (4.0-10.0)
[2021-03-14 08:38] LABS: INR 1.01 (0.83-1.09); PROTHROMBIN TIME (PATIENT) 12.4 SEC (9.7-13.0)
[2021-03-14 08:40] LABS: ACTIVATED PTT 37.1 SECONDS (25.2-36.5)
[2021-03-14 08:48] LABS: BLOOD UREA NITROGEN 9.5 mg/dL (7-18); CALCIUM 8.1 mg/dL (8.5-10.1)
[2021-03-14 08:49] LABS: ALBUMIN 2.6 g/dl (3.4-5.0); MAGNESIUM 1.7 mg/dL (1.8-2.4)
[2021-03-14 08:53] LABS: BILIRUBIN,TOTAL 0.2 mg/dL (0.2-1); CREATININE 0.4 mg/dL (0.55-1.3); PHOSPHOROUS 2.3 mg/dL (2.5-4.9); TOT PROT 6.2 g/dl (6.4-8.2)
[2021-03-14] MEDS: levETIRAcetam 500 MG/5 ML INJECTION VIAL IVPB SCH ×2 (09:32→21:01)
[2021-03-14] MEDS: ENOXAPARIN NA (PORCINE) 40 MG/0.4 ML DISP.SYRIN SQ SCH (09:33)
[2021-03-14] MEDS ORDERED: MAGNESIUM SULF 50% (8.12 MEQ/2 ML-1 GM VIAL) IVPB ONE (09:38)
[2021-03-14] MEDS ORDERED: PT OWN MED DRAWER 7, Y5N ONE ×2 (10:28→13:07)
[2021-03-14] MEDS: OXcarbazepine 300 MG/5 ML 250 ML BULK BOTTLE GT SCH ×3 (11:58→21:02)
[2021-03-14] MEDS: TOPIRAMATE 25 MG TABLET GT SCH ×3 (11:58→21:02)
[2021-03-14] MEDS: BACLOFEN 10 MG TABLET (FP) GT SCH ×2 (15:01→21:01)
[2021-03-14] MEDS: AMINO ACIDS 4.25%/D5W 1,000 ML IV SCH (15:02)
[2021-03-14] MEDS ORDERED: VANCOMYCIN 1 GRAM (PRE-DOCKED) 1,000 MG/250 ML BAG IVPB ONE (17:00)
[2021-03-14] MEDS ORDERED: DEXTROSE 5%-WATER - 50 ML IVPB ONE (17:03)
[2021-03-14] MEDS ORDERED: PIPERACILLIN/TAZOBACTAM 2.25 GM VIAL IVPB ONE (17:03)
[2021-03-14] MEDS: PIPERACILLIN/TAZOB 2.25 GM 2.25 GM in DEXTROSE 5%-WATER - 50 ML IVPB SCH (17:07)
[2021-03-15] MEDS ORDERED: DEXTROSE 5%-WATER - 50 ML IVPB ONE ×3 (00:51→16:46)
[2021-03-15] MEDS ORDERED: PIPERACILLIN/TAZOBACTAM 2.25 GM VIAL IVPB ONE ×3 (00:51→16:46)
[2021-03-15] MEDS: PIPERACILLIN/TAZOB 2.25 GM 2.25 GM in DEXTROSE 5%-WATER - 50 ML IVPB SCH ×3 (01:43→17:06)
[2021-03-15] MEDS: BACLOFEN 10 MG TABLET (FP) GT SCH ×3 (05:02→21:48)
[2021-03-15] MEDS: ENOXAPARIN NA (PORCINE) 40 MG/0.4 ML DISP.SYRIN SQ SCH (09:24)
[2021-03-15] MEDS: levETIRAcetam 500 MG/5 ML INJECTION VIAL IVPB SCH ×2 (09:24→21:15)
[2021-03-15] MEDS: TOPIRAMATE 25 MG TABLET GT SCH ×3 (09:25→21:47)
[2021-03-15] MEDS: OXcarbazepine 300 MG/5 ML 250 ML BULK BOTTLE GT SCH ×3 (09:25→21:46)
[2021-03-15 10:02] LABS: BASO % 0.5 % (0-2.0); EOS % 0.7 % (0-4.5); HEMATOCRIT 26.8 % (32.4-45.2); HEMOGLOBIN 9.1 GM/dL (10.7-15.3); LYMPH % 27.5 % (8-40); MCH 32.3 pg (25.7-33.7); MCHC 34.1 g/dl (32.0-36.0); MEAN CELL VOLUME 94.6 fl (80-96); MEAN PLT VOLUME 8.3 fl (7.5-11.1); MONO % 9.2 % (3.8-10.2); NEUT % 62.1 % (42.8-82.8); PLATELET COUNT 101 10^3/uL (134-434); RBC 2.83 M/mm3 (3.60-5.2); RDW 16.3 % (11.6-15.6); WHITE BLOOD COUNT 2.9 K/mm3 (4.0-10.0)
[2021-03-15 11:12] LABS: CHLORIDE 115 mmol/L (98-107); SODIUM 140 mmol/L (136-145)
[2021-03-15 11:14] LABS: CALCIUM 7.9 mg/dL (8.5-10.1)
[2021-03-15 11:15] LABS: ALBUMIN 2.8 g/dl (3.4-5.0); ANION GAP 1 MMOL/L (8-16); BLOOD UREA NITROGEN 10.3 mg/dL (7-18); CO2 24 mmol/L (21-32); GLUCOSE,RANDOM 83 mg/dL (74-106); MAGNESIUM 1.9 mg/dL (1.8-2.4)
[2021-03-15 11:18] LABS: CREATININE 0.4 mg/dL (0.55-1.3); SGOT/AST 19 U/L (15-37); SGPT/ALT 58 U/L (13-61)
[2021-03-15 11:19] LABS: BILIRUBIN,TOTAL 0.2 mg/dL (0.2-1)
[2021-03-15 11:20] LABS: TOT PROT 6.3 g/dl (6.4-8.2)
[2021-03-15 11:21] LABS: ALK PHOS 229 U/L (45-117)
[2021-03-15] MEDS ORDERED: PT OWN MED DRAWER 7, Y5N ONE ×2 (13:58→21:12)
[2021-03-15] MEDS: AMINO ACIDS 4.25%/D5W 1,000 ML IV SCH (14:12)
[2021-03-15] MEDS ORDERED: VANCOMYCIN 1 GRAM (PRE-DOCKED) 1,000 MG/250 ML BAG IVPB SCH (17:00)
[2021-03-15] MEDS ORDERED: LORazepam 2 MG/ML SDV VIAL ONE (22:10)
[2021-03-16] MEDS ORDERED: DEXTROSE 5%-WATER - 50 ML IVPB ONE ×2 (01:15→09:21)
[2021-03-16] MEDS ORDERED: PIPERACILLIN/TAZOBACTAM 2.25 GM VIAL IVPB ONE ×2 (01:15→09:21)
[2021-03-16] MEDS: PIPERACILLIN/TAZOB 2.25 GM 2.25 GM in DEXTROSE 5%-WATER - 50 ML IVPB SCH ×2 (01:42→09:46)
[2021-03-16] MEDS: BACLOFEN 10 MG TABLET (FP) GT SCH ×3 (05:23→21:02)
[2021-03-16 08:08] LABS: BASO % 0.2 % (0-2.0); EOS % 0.9 % (0-4.5); HEMATOCRIT 26.2 % (32.4-45.2); HEMOGLOBIN 9.1 GM/dL (10.7-15.3); LYMPH % 42.3 % (8-40); MCH 33.1 pg (25.7-33.7); MCHC 34.8 g/dl (32.0-36.0); MEAN CELL VOLUME 95.1 fl (80-96); MEAN PLT VOLUME 8.9 fl (7.5-11.1); MONO % 10.1 % (3.8-10.2); NEUT % 46.5 % (42.8-82.8); PLATELET COUNT 97 10^3/uL (134-434); RBC 2.76 M/mm3 (3.60-5.2); RDW 16.5 % (11.6-15.6); WHITE BLOOD COUNT 3.2 K/mm3 (4.0-10.0)
[2021-03-16 08:28] LABS: ALBUMIN 2.7 g/dl (3.4-5.0)
[2021-03-16] MEDS ORDERED: SODIUM CHLORIDE 1,000 ML IV SCH (08:30)
[2021-03-16 08:31] LABS: CREATININE 0.3 mg/dL (0.55-1.3)
[2021-03-16] MEDS ORDERED: PT OWN MED DRAWER 7, Y5N ONE ×4 (09:20→20:47)
[2021-03-16] MEDS: OXcarbazepine 300 MG/5 ML 250 ML BULK BOTTLE GT SCH ×2 (09:25→21:03)
[2021-03-16] MEDS: TOPIRAMATE 25 MG TABLET GT SCH ×2 (09:25→21:02)
[2021-03-16] MEDS: levETIRAcetam 500 MG/5 ML INJECTION VIAL IVPB SCH ×2 (09:26→21:01)
[2021-03-16] MEDS: ENOXAPARIN NA (PORCINE) 40 MG/0.4 ML DISP.SYRIN SQ SCH (09:30)
[2021-03-16 09:50] LABS: BILIRUBIN,TOTAL 0.3 mg/dL (0.2-1); CALCIUM 8.4 mg/dL (8.5-10.1); MAGNESIUM 1.5 mg/dL (1.8-2.4); TOT PROT 6.2 g/dl (6.4-8.2)
[2021-03-16] MEDS ORDERED: SODIUM CHLORIDE 0.45% 1,000 ML IV SCH (10:30)
[2021-03-16] MEDS ORDERED: MAGNESIUM 2GM/50ML STERILE WATER IVPB IVPB ONE (10:30)
[2021-03-16] MEDS ORDERED: PANTOPRAZOLE SODIUM 40 MG in SODIUM CHLORIDE 100 ML IVPB SCH (11:15)
[2021-03-16] MEDS: PANTOPRAZOLE SODIUM 40 MG VIAL IVPUSH SCH (11:42)
[2021-03-16] MEDS ORDERED: DEXTROSE 5%-WATER 100 ML IVPB ONE (16:43)
[2021-03-16] MEDS: CEFTRIAXONE 2 GM in DEXTROSE 5%-WATER 100 ML IVPB SCH (17:18)
[2021-03-17] MEDS: BACLOFEN 10 MG TABLET (FP) GT SCH ×3 (06:16→22:12)
[2021-03-17 07:28] LABS: BASO % 0.3 % (0-2.0); EOS % 0.7 % (0-4.5); HEMATOCRIT 26.6 % (32.4-45.2); HEMOGLOBIN 9.2 GM/dL (10.7-15.3); LYMPH % 39.9 % (8-40); MCH 32.8 pg (25.7-33.7); MCHC 34.8 g/dl (32.0-36.0); MEAN CELL VOLUME 94.4 fl (80-96); MEAN PLT VOLUME 8.9 fl (7.5-11.1); MONO % 10.1 % (3.8-10.2); PLATELET COUNT 120 10^3/uL (134-434); RBC 2.81 M/mm3 (3.60-5.2); RDW 16.8 % (11.6-15.6); WHITE BLOOD COUNT 3.5 K/mm3 (4.0-10.0)
[2021-03-17 07:39] LABS: ALBUMIN 2.7 g/dl (3.4-5.0); CALCIUM 8.5 mg/dL (8.5-10.1)
[2021-03-17 07:40] LABS: BLOOD UREA NITROGEN 11.9 mg/dL (7-18); MAGNESIUM 1.9 mg/dL (1.8-2.4)
[2021-03-17 07:43] LABS: CREATININE 0.4 mg/dL (0.55-1.3)
[2021-03-17 07:44] LABS: BILIRUBIN,TOTAL 0.4 mg/dL (0.2-1); TOT PROT 6.2 g/dl (6.4-8.2)
[2021-03-17] MEDS ORDERED: DEXTROSE 5%-WATER 100 ML IVPB ONE (09:46)
[2021-03-17] MEDS: PANTOPRAZOLE SODIUM 40 MG VIAL IVPUSH SCH (09:47)
[2021-03-17] MEDS: CEFTRIAXONE 2 GM in DEXTROSE 5%-WATER 100 ML IVPB SCH (09:47)
[2021-03-17] MEDS: levETIRAcetam 500 MG/5 ML INJECTION VIAL IVPB SCH ×2 (09:47→22:27)
[2021-03-17] MEDS ORDERED: PT OWN MED DRAWER 7, Y5N ONE ×2 (11:55→22:07)
[2021-03-17 12:24] LABS: INR 1.06 (0.83-1.09); PROTHROMBIN TIME (PATIENT) 13.1 SEC (9.7-13.0)
[2021-03-17] MEDS: TOPIRAMATE 25 MG TABLET GT SCH ×2 (13:39→22:12)
[2021-03-17] MEDS: OXcarbazepine 300 MG/5 ML 250 ML BULK BOTTLE GT SCH ×2 (13:40→22:14)
[2021-03-17] MEDS: KCL 10 MEQ IVPB 10 MEQ/100 ML INFUS.BAG IVPB SCH ×3 (13:40→19:08)
[2021-03-18] MEDS ORDERED: PT OWN MED DRAWER 7, Y5N ONE ×5 (05:44→21:52)
[2021-03-18] MEDS: BACLOFEN 10 MG TABLET (FP) GT SCH ×3 (05:46→21:57)
[2021-03-18 07:02] LABS: BASO % 0.4 % (0-2.0); EOS % 0.9 % (0-4.5); HEMATOCRIT 25.8 % (32.4-45.2); LYMPH % 34.8 % (8-40); MCH 33.4 pg (25.7-33.7); MCHC 34.7 g/dl (32.0-36.0); MEAN PLT VOLUME 9.4 fl (7.5-11.1); NEUT % 52.9 % (42.8-82.8); PLATELET COUNT 138 10^3/uL (134-434); RBC 2.68 M/mm3 (3.60-5.2); RDW 16.7 % (11.6-15.6); WHITE BLOOD COUNT 3.6 K/mm3 (4.0-10.0)
[2021-03-18 07:06] LABS: INR 1.02 (0.83-1.09); PROTHROMBIN TIME (PATIENT) 12.6 SEC (9.7-13.0)
[2021-03-18 07:19] LABS: CALCIUM 8.6 mg/dL (8.5-10.1)
[2021-03-18 07:20] LABS: ALBUMIN 2.6 g/dl (3.4-5.0); MAGNESIUM 1.8 mg/dL (1.8-2.4)
[2021-03-18 07:23] LABS: CREATININE 0.4 mg/dL (0.55-1.3)
[2021-03-18 07:28] LABS: BILIRUBIN,TOTAL 0.3 mg/dL (0.2-1)
[2021-03-18] MEDS ORDERED: MAGNESIUM OXIDE 400 MG TABLET (FP) GT ONE (07:36)
[2021-03-18] MEDS ORDERED: DEXTROSE 5%-WATER 100 ML IVPB ONE (11:05)
[2021-03-18] MEDS: PANTOPRAZOLE SODIUM 40 MG VIAL IVPUSH SCH (11:08)
[2021-03-18] MEDS: ENOXAPARIN NA (PORCINE) 40 MG/0.4 ML DISP.SYRIN SQ SCH (11:08)
[2021-03-18] MEDS: CEFTRIAXONE 2 GM in DEXTROSE 5%-WATER 100 ML IVPB SCH (11:09)
[2021-03-18] MEDS: OXcarbazepine 300 MG/5 ML 250 ML BULK BOTTLE GT SCH ×2 (11:10→22:02)
[2021-03-18] MEDS: TOPIRAMATE 25 MG TABLET GT SCH ×2 (11:10→21:57)
[2021-03-18] MEDS: levETIRAcetam 500 MG/5 ML INJECTION VIAL IVPB SCH (11:57)
[2021-03-18] MEDS: levETIRAcetam 500 MG/5 ML ORAL SOLUTION (UNIT-DOSE CUPS) GT SCH (22:02)
[2021-03-18] MEDS: FAMOTIDINE 40 MG/5 ML ORAL SUSPENSION NGT SCH (22:02)
[2021-03-19] MEDS ORDERED: PT OWN MED DRAWER 7, Y5N ONE ×4 (05:53→22:36)
[2021-03-19] MEDS: BACLOFEN 10 MG TABLET (FP) GT SCH ×3 (05:56→22:37)
[2021-03-19 06:37] LABS: BASO % 0.4 % (0-2.0); EOS % 0.8 % (0-4.5); HEMATOCRIT 27.2 % (32.4-45.2); HEMOGLOBIN 9.3 GM/dL (10.7-15.3); LYMPH % 40.7 % (8-40); MCH 32.8 pg (25.7-33.7); MEAN CELL VOLUME 96.7 fl (80-96); MEAN PLT VOLUME 9.8 fl (7.5-11.1); MONO % 9.4 % (3.8-10.2); NEUT % 48.7 % (42.8-82.8); PLATELET COUNT 142 10^3/uL (134-434); RBC 2.82 M/mm3 (3.60-5.2); RDW 16.7 % (11.6-15.6); WHITE BLOOD COUNT 4.1 K/mm3 (4.0-10.0)
[2021-03-19 07:04] LABS: CALCIUM 8.3 mg/dL (8.5-10.1)
[2021-03-19 07:05] LABS: ALBUMIN 2.6 g/dl (3.4-5.0); BLOOD UREA NITROGEN 14.2 mg/dL (7-18); MAGNESIUM 1.8 mg/dL (1.8-2.4)
[2021-03-19 07:07] LABS: CREATININE 0.3 mg/dL (0.55-1.3)
[2021-03-19 07:09] LABS: BILIRUBIN,TOTAL 0.3 mg/dL (0.2-1)
[2021-03-19] MEDS: TOPIRAMATE 25 MG TABLET GT SCH ×2 (09:54→22:37)
[2021-03-19] MEDS: FAMOTIDINE 40 MG/5 ML ORAL SUSPENSION NGT SCH (09:55)
[2021-03-19] MEDS: OXcarbazepine 300 MG/5 ML 250 ML BULK BOTTLE GT SCH ×2 (09:55→22:38)
[2021-03-19] MEDS: levETIRAcetam 500 MG/5 ML ORAL SOLUTION (UNIT-DOSE CUPS) GT SCH ×2 (09:55→22:37)
[2021-03-19] MEDS: ENOXAPARIN NA (PORCINE) 40 MG/0.4 ML DISP.SYRIN SQ SCH (09:56)
[2021-03-19 11:07] LABS: ALBUMIN 2.8 g/dl (3.4-5.0)
[2021-03-19 11:09] LABS: BILIRUBIN,DIRECT 0.1 mg/dL (0.0-0.2)
[2021-03-19 11:11] LABS: BILIRUBIN,TOTAL 0.5 mg/dL (0.2-1); TOT PROT 6.3 g/dl (6.4-8.2)
[2021-03-19 11:58] LABS: INR 1.06 (0.83-1.09); PROTHROMBIN TIME (PATIENT) 13.1 SEC (9.7-13.0)
[2021-03-19 16:09] VITALS: BMI 28.3
[2021-03-19 17:45] LABS: CALCIUM 8.6 mg/dL (8.5-10.1)
[2021-03-19 17:46] LABS: ALBUMIN 2.8 g/dl (3.4-5.0); BLOOD UREA NITROGEN 11.6 mg/dL (7-18)
[2021-03-19 17:49] LABS: CREATININE 0.4 mg/dL (0.55-1.3)
[2021-03-19 17:51] LABS: BILIRUBIN,TOTAL 0.4 mg/dL (0.2-1); TOT PROT 6.4 g/dl (6.4-8.2)
[2021-03-20] MEDS: BACLOFEN 10 MG TABLET (FP) GT SCH ×3 (05:12→22:00)
[2021-03-20 07:09] LABS: BASO % 0.4 % (0-2.0); EOS % 1.1 % (0-4.5); HEMATOCRIT 27.7 % (32.4-45.2); HEMOGLOBIN 9.4 GM/dL (10.7-15.3); LYMPH % 36.9 % (8-40); MCH 32.6 pg (25.7-33.7); MEAN CELL VOLUME 95.7 fl (80-96); MEAN PLT VOLUME 9.5 fl (7.5-11.1); MONO % 8.7 % (3.8-10.2); NEUT % 52.9 % (42.8-82.8); PLATELET COUNT 197 10^3/uL (134-434); RBC 2.89 M/mm3 (3.60-5.2); RDW 16.5 % (11.6-15.6); WHITE BLOOD COUNT 3.8 K/mm3 (4.0-10.0)
[2021-03-20 07:31] LABS: ALBUMIN 2.7 g/dl (3.4-5.0); BLOOD UREA NITROGEN 10.7 mg/dL (7-18); CALCIUM 8.7 mg/dL (8.5-10.1)
[2021-03-20 07:32] LABS: MAGNESIUM 1.8 mg/dL (1.8-2.4)
[2021-03-20 07:35] LABS: CREATININE 0.4 mg/dL (0.55-1.3)
[2021-03-20 07:36] LABS: BILIRUBIN,TOTAL 0.4 mg/dL (0.2-1); TOT PROT 6.2 g/dl (6.4-8.2)
[2021-03-20] MEDS: TOPIRAMATE 25 MG TABLET GT SCH ×2 (10:50→22:00)
[2021-03-20] MEDS: levETIRAcetam 500 MG/5 ML ORAL SOLUTION (UNIT-DOSE CUPS) GT SCH ×2 (10:50→22:00)
[2021-03-20] MEDS ORDERED: PT OWN MED DRAWER 7, Y5N ONE ×2 (10:58→21:58)
[2021-03-20] MEDS: OXcarbazepine 300 MG/5 ML 250 ML BULK BOTTLE GT SCH ×2 (12:10→22:00)
[2021-03-20] MEDS: ENOXAPARIN NA (PORCINE) 40 MG/0.4 ML DISP.SYRIN SQ SCH (12:10)
[2021-03-21] MEDS ORDERED: PT OWN MED DRAWER 7, Y5N ONE ×5 (05:21→22:08)
[2021-03-21] MEDS: BACLOFEN 10 MG TABLET (FP) GT SCH ×3 (05:22→22:10)
[2021-03-21 07:27] LABS: BASO % 0.2 % (0-2.0); EOS % 0.8 % (0-4.5); HEMATOCRIT 28.4 % (32.4-45.2); HEMOGLOBIN 9.6 GM/dL (10.7-15.3); LYMPH % 30.9 % (8-40); MCH 32.8 pg (25.7-33.7); MCHC 33.9 g/dl (32.0-36.0); MEAN PLT VOLUME 9.3 fl (7.5-11.1); MONO % 7.6 % (3.8-10.2); NEUT % 60.5 % (42.8-82.8); PLATELET COUNT 220 10^3/uL (134-434); RBC 2.93 M/mm3 (3.60-5.2); RDW 17.4 % (11.6-15.6); WHITE BLOOD COUNT 5.3 K/mm3 (4.0-10.0)
[2021-03-21 07:47] LABS: ALBUMIN 2.8 g/dl (3.4-5.0); CALCIUM 8.7 mg/dL (8.5-10.1); MAGNESIUM 1.8 mg/dL (1.8-2.4)
[2021-03-21 07:50] LABS: CREATININE 0.4 mg/dL (0.55-1.3)
[2021-03-21 07:52] LABS: BILIRUBIN,TOTAL 0.3 mg/dL (0.2-1); TOT PROT 6.4 g/dl (6.4-8.2)
[2021-03-21] MEDS: ENOXAPARIN NA (PORCINE) 40 MG/0.4 ML DISP.SYRIN SQ SCH (10:09)
[2021-03-21] MEDS: TOPIRAMATE 25 MG TABLET GT SCH ×2 (10:09→22:09)
[2021-03-21] MEDS: levETIRAcetam 500 MG/5 ML ORAL SOLUTION (UNIT-DOSE CUPS) GT SCH ×2 (10:09→22:10)
[2021-03-21] MEDS: OXcarbazepine 300 MG/5 ML 250 ML BULK BOTTLE GT SCH ×2 (10:10→22:09)
[2021-03-22] MEDS: BACLOFEN 10 MG TABLET (FP) GT SCH ×3 (05:36→21:30)
[2021-03-22] MEDS ORDERED: PT OWN MED DRAWER 7, Y5N ONE ×4 (06:31→21:29)
[2021-03-22 07:18] LABS: BLOOD UREA NITROGEN 16.2 mg/dL (7-18); CALCIUM 8.7 mg/dL (8.5-10.1); MAGNESIUM 1.9 mg/dL (1.8-2.4)
[2021-03-22 07:21] LABS: CREATININE 0.4 mg/dL (0.55-1.3)
[2021-03-22 07:23] LABS: BILIRUBIN,TOTAL 0.3 mg/dL (0.2-1); TOT PROT 6.7 g/dl (6.4-8.2)
[2021-03-22 07:24] LABS: BASO % 0.5 % (0-2.0); EOS % 1.1 % (0-4.5); HEMATOCRIT 30.5 % (32.4-45.2); HEMOGLOBIN 10.3 GM/dL (10.7-15.3); LYMPH % 51.9 % (8-40); MCH 32.6 pg (25.7-33.7); MCHC 33.6 g/dl (32.0-36.0); MEAN CELL VOLUME 96.9 fl (80-96); MONO % 8.9 % (3.8-10.2); NEUT % 37.6 % (42.8-82.8); PLATELET COUNT 303 10^3/uL (134-434); RBC 3.15 M/mm3 (3.60-5.2); WHITE BLOOD COUNT 3.4 K/mm3 (4.0-10.0)
[2021-03-22] MEDS: levETIRAcetam 500 MG/5 ML ORAL SOLUTION (UNIT-DOSE CUPS) GT SCH ×2 (09:04→21:30)
[2021-03-22] MEDS: OXcarbazepine 300 MG/5 ML 250 ML BULK BOTTLE GT SCH ×2 (09:04→21:30)
[2021-03-22] MEDS: ENOXAPARIN NA (PORCINE) 40 MG/0.4 ML DISP.SYRIN SQ SCH (09:04)
[2021-03-22] MEDS: TOPIRAMATE 25 MG TABLET GT SCH ×2 (09:05→21:30)
[2021-03-23] MEDS: BACLOFEN 10 MG TABLET (FP) GT SCH ×2 (05:06→13:19)
[2021-03-23 07:35] LABS: BASO % 0.4 % (0-2.0); EOS % 0.8 % (0-4.5); LYMPH % 43.7 % (8-40); MCH 32.8 pg (25.7-33.7); MCHC 34.4 g/dl (32.0-36.0); MEAN CELL VOLUME 95.5 fl (80-96); MEAN PLT VOLUME 8.4 fl (7.5-11.1); MONO % 9.1 % (3.8-10.2); PLATELET COUNT 348 10^3/uL (134-434); RBC 3.35 M/mm3 (3.60-5.2); RDW 16.7 % (11.6-15.6); WHITE BLOOD COUNT 4.3 K/mm3 (4.0-10.0)
[2021-03-23 07:45] LABS: MAGNESIUM 1.9 mg/dL (1.8-2.4)
[2021-03-23 07:48] LABS: ALBUMIN 3.2 g/dl (3.4-5.0); BLOOD UREA NITROGEN 21.7 mg/dL (7-18)
[2021-03-23 07:49] LABS: CREATININE 0.5 mg/dL (0.55-1.3)
[2021-03-23 07:50] LABS: BILIRUBIN,TOTAL 0.4 mg/dL (0.2-1); TOT PROT 7.3 g/dl (6.4-8.2)
[2021-03-23] MEDS: OXcarbazepine 300 MG/5 ML 250 ML BULK BOTTLE GT SCH (10:56)
[2021-03-23] MEDS: ENOXAPARIN NA (PORCINE) 40 MG/0.4 ML DISP.SYRIN SQ SCH (10:56)
[2021-03-23] MEDS: levETIRAcetam 500 MG/5 ML ORAL SOLUTION (UNIT-DOSE CUPS) GT SCH (10:57)
[2021-03-23] MEDS: TOPIRAMATE 25 MG TABLET GT SCH (10:58)
[2021-03-23 13:37] VITALS: BP 106/61; PULSE 62; TEMP 97.7
== END 2021-03-23 15:19 | disposition home or self-care (01) | DRG 871 ==
LOC: JER 15:11 → JERBED 20:00 → J4S 03-14 02:27
PROVIDERS: ADMIT Internal Medicine; ATTEND Nurse Practitioner Acute Care
PROC: 3E0G76Z Introduction of Nutritional Substance into Upper GI, Via Natural or Artificial Opening (ICD-10-PCS; principal; 2021-03-13)
PROC: 0D20XUZ Change Feeding Device in Upper Intestinal Tract, External Approach (ICD-10-PCS; 2021-03-17)
DX: A41.9 Sepsis, unspecified organism (principal); R53.2 Functional quadriplegia; G80.0 Spastic quadriplegic cerebral palsy; J69.0 Pneumonitis due to inhalation of food and vomit; F73 Profound intellectual disabilities; D61.818 Other pancytopenia; E87.1 Hypo-osmolality and hyponatremia; N39.0 Urinary tract infection, site not specified; I34.0 Nonrheumatic mitral (valve) insufficiency; G40.909 Epilepsy, unspecified, not intractable, without status epilepticus; D70.9 Neutropenia, unspecified; R23.3 Spontaneous ecchymoses; R79.89 Other specified abnormal findings of blood chemistry; R00.1 Bradycardia, unspecified; R74.01 Elevation of levels of liver transaminase levels; E83.42 Hypomagnesemia; K71.9 Toxic liver disease, unspecified; I44.0 Atrioventricular block, first degree; E87.6 Hypokalemia; K94.29 Other complications of gastrostomy; Y83.8 Other surgical procedures as the cause of abnormal reaction of the patient, or of later complication, without mention of misadventure at the time of the procedure; T36.1X5A Adverse effect of cephalosporins and other beta-lactam antibiotics, initial encounter; I36.1 Nonrheumatic tricuspid (valve) insufficiency
CPT/HCPCS: 36415; 49440; 71045-TC-FY; 74176-TC; 76705-TC; 80053; 80076; 80177; 80183; 80201; 81003; 82272; 82550; 82553; 82803; 82962; 83010; 83605; 83615; 83735; 84100; 84439; 84443; 84481; 84484; 85025; 85610; 85730; 86705; 86707; 86708; 86803; 87040; 87086; 87186; 93005; 93010; 93225; 93226; 93306-TC; 99291; C9803; J0475; U0003; U0005

== ENCOUNTER 2022-02-23 11:35 | Inpatient (IN) | payer OTHER ==
[2022-02-23 13:40] LABS: BASO % 0.1 % (0-2.0); EOS % 0.1 % (0-4.5); HEMATOCRIT 33.3 % (32.4-45.2); HEMOGLOBIN 11.3 GM/dL (10.7-15.3); MCH 32.9 pg (25.7-33.7); MCHC 33.8 g/dl (32.0-36.0); MEAN CELL VOLUME 97.2 fl (80-96); MEAN PLT VOLUME 8.4 fl (7.5-11.1); MONO % 3.7 % (3.8-10.2); NEUT % 76.1 % (42.8-82.8); PLATELET COUNT 201 10^3/uL (134-434); RBC 3.42 M/mm3 (3.60-5.2); RDW 16.3 % (11.6-15.6); WHITE BLOOD COUNT 5.8 K/mm3 (4.0-10.0)
[2022-02-23 13:44] LABS: VENOUS BASE EXCESS -4.3 mmol/L (-2-2); VENOUS O2 SATURATION 90.5 % (70-80); VENOUS PCO2 49.3 mmHg (38-52); VENOUS PH 7.28 (7.310-7.410)
[2022-02-23] MEDS ORDERED: VANCOMYCIN 1 GM in D5W (PRE-DOCKED) 1,000 MG/250 ML IVPB ONE (13:53)
[2022-02-23] MEDS ORDERED: SODIUM CHLORIDE 1,000 ML IV STA (13:53)
[2022-02-23] MEDS ORDERED: MEROPENEM 1 GM in DEXTROSE 5%-WATER 100 ML IVPB ONE (13:53)
[2022-02-23 13:55] LABS: INR 0.98 (0.83-1.09); PROTHROMBIN TIME (PATIENT) 11.3 SEC (9.7-13.0)
[2022-02-23] MEDS ORDERED: VANCOMYCIN/WATER FOR INJ (PEG) 1,000 MG/200 ML BAG IVPB ONE (13:57)
[2022-02-23 13:58] LABS: ACTIVATED PTT 47.3 SECONDS (25.2-36.5)
[2022-02-23 14:12] LABS: BLOOD UREA NITROGEN 14.5 mg/dL (7-18)
[2022-02-23 14:14] LABS: ALBUMIN 3.2 g/dl (3.4-5.0)
[2022-02-23 14:16] LABS: CREATININE 0.3 mg/dL (0.55-1.3)
[2022-02-23 14:17] LABS: BILIRUBIN,TOTAL 0.4 mg/dL (0.2-1); TOT PROT 7.5 g/dl (6.4-8.2)
[2022-02-23] MEDS ORDERED: MEROPENEM 1 GM VIAL (RESTRICTED TO ID) IVPB ONE (15:06)
[2022-02-23] MEDS ORDERED: LORazepam 2 MG/ML SDV VIAL IVPUSH ONE (15:14)
[2022-02-23] MEDS ORDERED: levETIRAcetam 500 MG/5 ML INJECTION VIAL IVPB ONE ×2 (15:36→15:41)
[2022-02-23] MEDS ORDERED: diazePAM RECTAL GEL 10 MG KIT (PRE-CALIBRATED) RC PRN (16:10)
[2022-02-23] MEDS: SODIUM CHLORIDE 1,000 ML IV SCH ×2 (16:27→22:50)
[2022-02-23] MEDS ORDERED: LACTATED RINGERS SOLUTION 1000 ML INFUS.BAG IV ONE (16:50)
[2022-02-23 18:20] LABS: URINE APPEARANCE CLEAR; URINE BILIRUBIN NEGATIVE (NEGATIVE); URINE COLOR YELLOW; URINE GLUCOSE (UA) NEGATIVE (NEGATIVE); URINE KETONE NEGATIVE (NEGATIVE); URINE LEUK ESTERASE NEGATIVE (NEGATIVE); URINE NITRITE NEGATIVE (NEGATIVE); URINE PROTEIN NEGATIVE (NEGATIVE); URINE UROBILINOGEN 0.2 mg/dL (0.2-1.0)
[2022-02-23] MEDS ORDERED: levETIRAcetam 500 MG/5 ML ORAL SOLUTION (UNIT-DOSE CUPS) GT SCH (22:00)
[2022-02-23] MEDS: levETIRAcetam 500 MG/5 ML ORAL SOLUTION (UNIT-DOSE CUPS) GT SCH (22:51)
[2022-02-23] MEDS: TOPIRAMATE 25 MG TABLET GT SCH (22:51)
[2022-02-23] MEDS: OXcarbazepine 300 MG/5 ML 250 ML BULK BOTTLE GT SCH (22:51)
[2022-02-24] MEDS ORDERED: VANCOMYCIN 500 MG in DEXTROSE 5%-WATER 100 ML IVPB SCH (02:00)
[2022-02-24] MEDS ORDERED: MEROPENEM 500 MG in DEXTROSE 5%-WATER 100 ML IVPB SCH (02:00)
[2022-02-24] MEDS: ENOXAPARIN NA (PORCINE) 30 MG/0.3 ML DISP.SYRIN SQ SCH (09:21)
[2022-02-24] MEDS: OXcarbazepine 300 MG/5 ML 250 ML BULK BOTTLE GT SCH ×2 (09:21→21:39)
[2022-02-24] MEDS: levETIRAcetam 500 MG/5 ML ORAL SOLUTION (UNIT-DOSE CUPS) GT SCH ×2 (09:22→21:39)
[2022-02-24] MEDS: TOPIRAMATE 25 MG TABLET GT SCH ×2 (09:22→21:39)
[2022-02-24] MEDS ORDERED: AZITHROMYCIN IVPB 500 MG/250 ML BAG IVPB ONE (12:00)
[2022-02-24] MEDS: VANCOMYCIN 500 MG in DEXTROSE 5%-WATER - 250 ML IVPB SCH (12:02)
[2022-02-24] MEDS: MEROPENEM 500 MG in DEXTROSE 5%-WATER 100 ML IVPB SCH (12:02)
[2022-02-24] MEDS: PIPERACILLIN/TAZOB 3.375 GM 3.375 GM in DEXTROSE 5%-WATER - 50 ML IVPB SCH ×2 (12:37→17:17)
[2022-02-24 12:39] LABS: BASO % 0.3 % (0-2.0); EOS % 0.5 % (0-4.5); HEMATOCRIT 28.8 % (32.4-45.2); HEMOGLOBIN 9.8 GM/dL (10.7-15.3); LYMPH % 45.9 % (8-40); MCHC 33.9 g/dl (32.0-36.0); MEAN CELL VOLUME 97.3 fl (80-96); MEAN PLT VOLUME 7.9 fl (7.5-11.1); MONO % 6.7 % (3.8-10.2); NEUT % 46.6 % (42.8-82.8); PLATELET COUNT 161 10^3/uL (134-434); RBC 2.96 M/mm3 (3.60-5.2); RDW 16.5 % (11.6-15.6); WHITE BLOOD COUNT 4.1 K/mm3 (4.0-10.0)
[2022-02-24 12:50] LABS: INR 1.03 (0.83-1.09); PROTHROMBIN TIME (PATIENT) 11.9 SEC (9.7-13.0)
[2022-02-24 12:53] LABS: ACTIVATED PTT 56.2 SECONDS (25.2-36.5)
[2022-02-24 14:42] LABS: ALBUMIN 2.7 g/dl (3.4-5.0)
[2022-02-24 14:43] LABS: BLOOD UREA NITROGEN 10.1 mg/dL (7-18); CALCIUM 8.4 mg/dL (8.5-10.1)
[2022-02-24 14:44] LABS: CREATININE 0.3 mg/dL (0.55-1.3); MAGNESIUM 1.5 mg/dL (1.8-2.4); PHOSPHOROUS 2.9 mg/dL (2.5-4.9)
[2022-02-24 14:45] LABS: BILIRUBIN,TOTAL 0.2 mg/dL (0.2-1); TOT PROT 6.1 g/dl (6.4-8.2)
[2022-02-24] MEDS: SODIUM CHLORIDE 1,000 ML IV SCH (17:17)
[2022-02-25] MEDS: PIPERACILLIN/TAZOB 3.375 GM 3.375 GM in DEXTROSE 5%-WATER - 50 ML IVPB SCH ×4 (01:12→18:36)
[2022-02-25 09:03] LABS: BASO % 0.2 % (0-2.0); EOS % 0.1 % (0-4.5); HEMATOCRIT 29.3 % (32.4-45.2); HEMOGLOBIN 10.1 GM/dL (10.7-15.3); LYMPH % 25.8 % (8-40); MCH 33.4 pg (25.7-33.7); MCHC 34.3 g/dl (32.0-36.0); MEAN CELL VOLUME 97.4 fl (80-96); MEAN PLT VOLUME 7.6 fl (7.5-11.1); MONO % 6.9 % (3.8-10.2); PLATELET COUNT 178 10^3/uL (134-434); RBC 3.01 M/mm3 (3.60-5.2); RDW 15.8 % (11.6-15.6); WHITE BLOOD COUNT 5.5 K/mm3 (4.0-10.0)
[2022-02-25 09:29] LABS: ALBUMIN 2.3 g/dl (3.4-5.0); BLOOD UREA NITROGEN 8.8 mg/dL (7-18); CALCIUM 8.1 mg/dL (8.5-10.1); MAGNESIUM 1.6 mg/dL (1.8-2.4)
[2022-02-25 09:32] LABS: CREATININE 0.5 mg/dL (0.55-1.3); PHOSPHOROUS 2.8 mg/dL (2.5-4.9)
[2022-02-25 09:33] LABS: BILIRUBIN,TOTAL 0.6 mg/dL (0.2-1); TOT PROT 5.5 g/dl (6.4-8.2)
[2022-02-25] MEDS: OXcarbazepine 300 MG/5 ML 250 ML BULK BOTTLE GT SCH ×2 (09:48→21:42)
[2022-02-25] MEDS: levETIRAcetam 500 MG/5 ML ORAL SOLUTION (UNIT-DOSE CUPS) GT SCH ×2 (09:49→21:43)
[2022-02-25] MEDS: ENOXAPARIN NA (PORCINE) 30 MG/0.3 ML DISP.SYRIN SQ SCH (09:49)
[2022-02-25] MEDS: TOPIRAMATE 25 MG TABLET GT SCH ×2 (09:50→21:42)
[2022-02-25] MEDS ORDERED: AZITHROMYCIN IVPB 500 MG in DEXTROSE 5%-WATER - 250 ML IVPB SCH (14:30)
[2022-02-25] MEDS: AZITHROMYCIN IVPB 500 MG/250 ML BAG IVPB SCH (16:20)
[2022-02-26] MEDS: PIPERACILLIN/TAZOB 3.375 GM 3.375 GM in DEXTROSE 5%-WATER - 50 ML IVPB SCH ×4 (00:59→17:06)
[2022-02-26] MEDS: TOPIRAMATE 25 MG TABLET GT SCH ×2 (09:58→22:16)
[2022-02-26] MEDS: ENOXAPARIN NA (PORCINE) 30 MG/0.3 ML DISP.SYRIN SQ SCH (09:58)
[2022-02-26] MEDS: OXcarbazepine 300 MG/5 ML 250 ML BULK BOTTLE GT SCH ×2 (09:58→22:16)
[2022-02-26] MEDS: levETIRAcetam 500 MG/5 ML ORAL SOLUTION (UNIT-DOSE CUPS) GT SCH ×2 (09:59→22:15)
[2022-02-26] MEDS: AZITHROMYCIN IVPB 500 MG/250 ML BAG IVPB SCH (15:58)
[2022-02-27] MEDS: PIPERACILLIN/TAZOB 3.375 GM 3.375 GM in DEXTROSE 5%-WATER - 50 ML IVPB SCH ×5 (00:55→23:23)
[2022-02-27] MEDS: ENOXAPARIN NA (PORCINE) 30 MG/0.3 ML DISP.SYRIN SQ SCH (10:02)
[2022-02-27] MEDS: TOPIRAMATE 25 MG TABLET GT SCH ×2 (10:03→22:31)
[2022-02-27] MEDS: levETIRAcetam 500 MG/5 ML ORAL SOLUTION (UNIT-DOSE CUPS) GT SCH ×2 (10:03→22:30)
[2022-02-27] MEDS: OXcarbazepine 300 MG/5 ML 250 ML BULK BOTTLE GT SCH ×2 (10:04→22:30)
[2022-02-27] MEDS: AZITHROMYCIN IVPB 500 MG/250 ML BAG IVPB SCH (15:02)
[2022-02-28] MEDS: PIPERACILLIN/TAZOB 3.375 GM 3.375 GM in DEXTROSE 5%-WATER - 50 ML IVPB SCH ×2 (05:38→11:50)
[2022-02-28] MEDS: OXcarbazepine 300 MG/5 ML 250 ML BULK BOTTLE GT SCH ×2 (09:35→23:32)
[2022-02-28] MEDS: TOPIRAMATE 25 MG TABLET GT SCH ×2 (09:35→21:41)
[2022-02-28] MEDS: ENOXAPARIN NA (PORCINE) 30 MG/0.3 ML DISP.SYRIN SQ SCH (09:35)
[2022-02-28] MEDS: levETIRAcetam 500 MG/5 ML ORAL SOLUTION (UNIT-DOSE CUPS) GT SCH ×2 (09:35→21:41)
[2022-02-28] MEDS: TOPIRAMATE 200 MG TABLET PO SCH ×2 (12:48→21:43)
[2022-02-28] MEDS: BACLOFEN 10 MG TABLET (FP) GT SCH ×2 (13:06→21:40)
[2022-02-28] MEDS: AZITHROMYCIN IVPB 500 MG/250 ML BAG IVPB SCH (14:53)
[2022-02-28] MEDS: NYSTATIN POWDER 100,000 UNITS/GM - 15 GM TOPICAL POWDER TP SCH ×2 (15:02→21:42)
[2022-02-28 16:59] LABS: BASO % 0.5 % (0-2.0); EOS % 0.8 % (0-4.5); HEMOGLOBIN 9.6 GM/dL (10.7-15.3); LYMPH % 40.6 % (8-40); MCH 33.2 pg (25.7-33.7); MCHC 33.1 g/dl (32.0-36.0); MEAN CELL VOLUME 100.2 fl (80-96); MEAN PLT VOLUME 9.4 fl (7.5-11.1); MONO % 9.4 % (3.8-10.2); NEUT % 48.7 % (42.8-82.8); PLATELET COUNT 124 10^3/uL (134-434); RDW 15.9 % (11.6-15.6); WHITE BLOOD COUNT 3.6 K/mm3 (4.0-10.0)
[2022-02-28 17:22] LABS: CALCIUM 8.2 mg/dL (8.5-10.1)
[2022-02-28 17:24] LABS: BLOOD UREA NITROGEN 10.5 mg/dL (7-18); MAGNESIUM 1.8 mg/dL (1.8-2.4)
[2022-02-28 17:25] LABS: ALBUMIN 2.5 g/dl (3.4-5.0)
[2022-02-28 17:26] LABS: CREATININE 0.3 mg/dL (0.55-1.3)
[2022-02-28 17:27] LABS: BILIRUBIN,TOTAL 0.5 mg/dL (0.2-1)
[2022-02-28] MEDS: AMOX TR/POTASSIUM CLAVULANATE 600 MG/5 ML PO SCH (17:32)
[2022-03-01] MEDS: BACLOFEN 10 MG TABLET (FP) GT SCH ×3 (05:59→22:18)
[2022-03-01] MEDS: AMOX TR/POTASSIUM CLAVULANATE 600 MG/5 ML PO SCH ×2 (09:20→16:54)
[2022-03-01] MEDS: ENOXAPARIN NA (PORCINE) 30 MG/0.3 ML DISP.SYRIN SQ SCH (09:21)
[2022-03-01] MEDS: levETIRAcetam 500 MG/5 ML ORAL SOLUTION (UNIT-DOSE CUPS) GT SCH ×2 (09:22→22:19)
[2022-03-01] MEDS: NYSTATIN POWDER 100,000 UNITS/GM - 15 GM TOPICAL POWDER TP SCH ×2 (09:22→22:23)
[2022-03-01] MEDS: TOPIRAMATE 200 MG TABLET PO SCH ×2 (09:23→22:20)
[2022-03-01] MEDS: TOPIRAMATE 25 MG TABLET GT SCH ×2 (09:23→22:18)
[2022-03-01] MEDS: OXcarbazepine 300 MG/5 ML 250 ML BULK BOTTLE GT SCH ×2 (09:24→22:19)
[2022-03-01 09:46] LABS: BASO % 0.5 % (0-2.0); HEMATOCRIT 31.1 % (32.4-45.2); HEMOGLOBIN 10.1 GM/dL (10.7-15.3); LYMPH % 39.8 % (8-40); MCH 32.2 pg (25.7-33.7); MCHC 32.5 g/dl (32.0-36.0); MEAN CELL VOLUME 99.4 fl (80-96); MEAN PLT VOLUME 8.9 fl (7.5-11.1); MONO % 9.5 % (3.8-10.2); NEUT % 49.2 % (42.8-82.8); PLATELET COUNT 197 10^3/uL (134-434); RBC 3.13 M/mm3 (3.60-5.2); RDW 15.8 % (11.6-15.6); WHITE BLOOD COUNT 4.2 K/mm3 (4.0-10.0)
[2022-03-01 10:31] LABS: CALCIUM 8.9 mg/dL (8.5-10.1)
[2022-03-01 10:32] LABS: ALBUMIN 2.9 g/dl (3.4-5.0); BLOOD UREA NITROGEN 12.1 mg/dL (7-18)
[2022-03-01 10:35] LABS: CREATININE 0.4 mg/dL (0.55-1.3)
[2022-03-01 10:36] LABS: TOT PROT 6.3 g/dl (6.4-8.2)
[2022-03-01 10:37] LABS: BILIRUBIN,TOTAL 0.3 mg/dL (0.2-1)
[2022-03-01 12:42] LABS: BILIRUBIN,DIRECT 0.1 mg/dL (0.0-0.2)
[2022-03-02] MEDS: BACLOFEN 10 MG TABLET (FP) GT SCH ×3 (06:20→23:50)
[2022-03-02 08:20] LABS: BASO % 0.6 % (0-2.0); HEMATOCRIT 28.7 % (32.4-45.2); HEMOGLOBIN 9.5 GM/dL (10.7-15.3); LYMPH % 54.9 % (8-40); MCH 32.9 pg (25.7-33.7); MEAN CELL VOLUME 99.5 fl (80-96); MONO % 11.1 % (3.8-10.2); NEUT % 32.4 % (42.8-82.8); PLATELET COUNT 197 10^3/uL (134-434); RBC 2.89 M/mm3 (3.60-5.2); RDW 15.9 % (11.6-15.6); WHITE BLOOD COUNT 4.1 K/mm3 (4.0-10.0)
[2022-03-02 08:21] LABS: CALCIUM 8.7 mg/dL (8.5-10.1)
[2022-03-02 08:22] LABS: ALBUMIN 2.8 g/dl (3.4-5.0); BLOOD UREA NITROGEN 14.7 mg/dL (7-18); MAGNESIUM 1.9 mg/dL (1.8-2.4)
[2022-03-02 08:25] LABS: CREATININE 0.4 mg/dL (0.55-1.3)
[2022-03-02 08:26] LABS: BILIRUBIN,TOTAL 0.4 mg/dL (0.2-1); TOT PROT 6.1 g/dl (6.4-8.2)
[2022-03-02] MEDS: ENOXAPARIN NA (PORCINE) 30 MG/0.3 ML DISP.SYRIN SQ SCH (11:53)
[2022-03-02] MEDS: AMOX TR/POTASSIUM CLAVULANATE 600 MG/5 ML PO SCH ×2 (11:53→19:02)
[2022-03-02] MEDS: levETIRAcetam 500 MG/5 ML ORAL SOLUTION (UNIT-DOSE CUPS) GT SCH ×2 (11:55→23:12)
[2022-03-02] MEDS: TOPIRAMATE 200 MG TABLET PO SCH ×2 (11:55→23:11)
[2022-03-02] MEDS: OXcarbazepine 300 MG/5 ML 250 ML BULK BOTTLE GT SCH ×2 (11:56→23:27)
[2022-03-02] MEDS: TOPIRAMATE 25 MG TABLET GT SCH ×2 (11:56→23:12)
[2022-03-02] MEDS: NYSTATIN POWDER 100,000 UNITS/GM - 15 GM TOPICAL POWDER TP SCH ×2 (11:57→23:19)
[2022-03-03] MEDS: BACLOFEN 10 MG TABLET (FP) GT SCH ×3 (06:09→22:29)
[2022-03-03] MEDS: LEVOTHYROXINE NA 25 MCG TABLET (FP) PO SCH (06:11)
[2022-03-03] MEDS: AMOX TR/POTASSIUM CLAVULANATE 600 MG/5 ML PO SCH ×2 (08:23→17:01)
[2022-03-03 09:01] LABS: BASO % 0.5 % (0-2.0); HEMATOCRIT 29.5 % (32.4-45.2); HEMOGLOBIN 9.8 GM/dL (10.7-15.3); LYMPH % 42.5 % (8-40); MCH 32.8 pg (25.7-33.7); MCHC 33.2 g/dl (32.0-36.0); MEAN CELL VOLUME 98.7 fl (80-96); MEAN PLT VOLUME 8.7 fl (7.5-11.1); MONO % 9.5 % (3.8-10.2); NEUT % 46.5 % (42.8-82.8); PLATELET COUNT 200 10^3/uL (134-434); RBC 2.99 M/mm3 (3.60-5.2); RDW 15.5 % (11.6-15.6)
[2022-03-03] MEDS: ENOXAPARIN NA (PORCINE) 30 MG/0.3 ML DISP.SYRIN SQ SCH (09:14)
[2022-03-03] MEDS: levETIRAcetam 500 MG/5 ML ORAL SOLUTION (UNIT-DOSE CUPS) GT SCH ×2 (09:15→22:28)
[2022-03-03] MEDS: NYSTATIN POWDER 100,000 UNITS/GM - 15 GM TOPICAL POWDER TP SCH ×2 (09:15→23:12)
[2022-03-03] MEDS: TOPIRAMATE 25 MG TABLET GT SCH ×2 (09:15→22:30)
[2022-03-03] MEDS: TOPIRAMATE 200 MG TABLET PO SCH ×2 (09:15→22:29)
[2022-03-03 09:17] LABS: CHLORIDE 105 mmol/L (98-107); SODIUM 134 mmol/L (136-145)
[2022-03-03 09:19] LABS: CALCIUM 8.7 mg/dL (8.5-10.1)
[2022-03-03 09:20] LABS: ALBUMIN 2.8 g/dl (3.4-5.0); ANION GAP 5 MMOL/L (8-16); CO2 24 mmol/L (21-32)
[2022-03-03 09:21] LABS: BLOOD UREA NITROGEN 16.8 mg/dL (7-18); GLUCOSE,RANDOM 84 mg/dL (74-106); MAGNESIUM 1.6 mg/dL (1.8-2.4)
[2022-03-03 09:23] LABS: BILIRUBIN,DIRECT 0.1 mg/dL (0.0-0.2); CREATININE 0.3 mg/dL (0.55-1.3); SGOT/AST 36 U/L (15-37); SGPT/ALT 258 U/L (13-61)
[2022-03-03 09:24] LABS: BILIRUBIN,TOTAL 0.3 mg/dL (0.2-1); TOT PROT 6.3 g/dl (6.4-8.2)
[2022-03-03 09:26] LABS: ALK PHOS 256 U/L (45-117)
[2022-03-03] MEDS ORDERED: MAGNESIUM OXIDE 400 MG TABLET (FP) GT ONE (10:00)
[2022-03-03] MEDS: OXcarbazepine 300 MG/5 ML 250 ML BULK BOTTLE GT SCH ×2 (10:42→22:31)
[2022-03-03 13:26] VITALS: BMI 31.8
[2022-03-03 15:52] LABS: URINE APPEARANCE CLEAR; URINE BILIRUBIN NEGATIVE (NEGATIVE); URINE COLOR YELLOW; URINE GLUCOSE (UA) NEGATIVE (NEGATIVE); URINE KETONE NEGATIVE (NEGATIVE); URINE LEUK ESTERASE NEGATIVE (NEGATIVE); URINE NITRITE NEGATIVE (NEGATIVE); URINE PROTEIN NEGATIVE (NEGATIVE); URINE UROBILINOGEN 0.2 mg/dL (0.2-1.0)
[2022-03-04] MEDS: LEVOTHYROXINE NA 25 MCG TABLET (FP) PO SCH (06:13)
[2022-03-04] MEDS: BACLOFEN 10 MG TABLET (FP) GT SCH ×2 (06:13→16:15)
[2022-03-04 07:19] VITALS: BP 97/55; PULSE 71; RESP 18; TEMP 98.2
[2022-03-04] MEDS: AMOX TR/POTASSIUM CLAVULANATE 600 MG/5 ML PO SCH (09:34)
[2022-03-04] MEDS: NYSTATIN POWDER 100,000 UNITS/GM - 15 GM TOPICAL POWDER TP SCH (09:35)
[2022-03-04] MEDS: levETIRAcetam 500 MG/5 ML ORAL SOLUTION (UNIT-DOSE CUPS) GT SCH (09:35)
[2022-03-04] MEDS: ENOXAPARIN NA (PORCINE) 30 MG/0.3 ML DISP.SYRIN SQ SCH (09:35)
[2022-03-04 10:06] LABS: BASO % 0.3 % (0-2.0); EOS % 0.3 % (0-4.5); HEMATOCRIT 33.7 % (32.4-45.2); HEMOGLOBIN 11.3 GM/dL (10.7-15.3); LYMPH % 30.8 % (8-40); MCH 32.8 pg (25.7-33.7); MCHC 33.5 g/dl (32.0-36.0); MEAN CELL VOLUME 97.7 fl (80-96); MEAN PLT VOLUME 8.6 fl (7.5-11.1); MONO % 5.9 % (3.8-10.2); NEUT % 62.7 % (42.8-82.8); PLATELET COUNT 276 10^3/uL (134-434); RBC 3.45 M/mm3 (3.60-5.2); WHITE BLOOD COUNT 5.3 K/mm3 (4.0-10.0)
[2022-03-04] MEDS: OXcarbazepine 300 MG/5 ML 250 ML BULK BOTTLE GT SCH (10:24)
[2022-03-04] MEDS: TOPIRAMATE 25 MG TABLET GT SCH (10:25)
[2022-03-04] MEDS: TOPIRAMATE 200 MG TABLET PO SCH (10:25)
[2022-03-04 10:37] LABS: ALBUMIN 3.3 g/dl (3.4-5.0); CALCIUM 8.9 mg/dL (8.5-10.1)
[2022-03-04 10:38] LABS: BLOOD UREA NITROGEN 18.2 mg/dL (7-18); MAGNESIUM 1.9 mg/dL (1.8-2.4)
[2022-03-04 10:40] LABS: BILIRUBIN,DIRECT 0.1 mg/dL (0.0-0.2); CREATININE 0.4 mg/dL (0.55-1.3)
[2022-03-04 10:42] LABS: BILIRUBIN,TOTAL 0.3 mg/dL (0.2-1); TOT PROT 7.2 g/dl (6.4-8.2)
[2022-03-04 19:06] LABS: GLIADIN ANTIBODY IGA 3 units (0-19); GLIADIN ANTIBODY IGG 5 units (0-19); TRANSGLUTAMINASE IGG < 2 U/mL (0-5)
== END 2022-03-04 16:45 | disposition home or self-care (01) | DRG 871 ==
LOC: JER 11:35 → JERBED 16:21 → J7W 20:40
PROVIDERS: ADMIT Internal Medicine; ATTEND Nurse Practitioner Acute Care
PROC: 3E0G76Z Introduction of Nutritional Substance into Upper GI, Via Natural or Artificial Opening (ICD-10-PCS; principal; 2022-02-23)
DX: A41.9 Sepsis, unspecified organism (principal); G80.0 Spastic quadriplegic cerebral palsy; R53.2 Functional quadriplegia; J69.0 Pneumonitis due to inhalation of food and vomit; G80.9 Cerebral palsy, unspecified; G40.909 Epilepsy, unspecified, not intractable, without status epilepticus; I36.1 Nonrheumatic tricuspid (valve) insufficiency; Z93.1 Gastrostomy status; K21.9 Gastro-esophageal reflux disease without esophagitis; I44.0 Atrioventricular block, first degree; R74.01 Elevation of levels of liver transaminase levels; R79.89 Other specified abnormal findings of blood chemistry; K76.0 Fatty (change of) liver, not elsewhere classified
CPT/HCPCS: 0241U-QW; 36415; 71045-TC-FY; 76705-TC; 80053; 80076; 80177; 80183; 80201; 81003; 82553; 82784; 82803; 83516; 83605; 83735; 84100; 84439; 84443; 84481; 85025; 85610; 85730; 86038; 86140; 86850; 86900; 86901; 87040; 87081; 87086; 87186; 87633; 93005; 93010; 94761; 99285-25; C9803-CS; J0475; U0003; U0005

== ENCOUNTER 2022-07-10 18:11 | Inpatient (IN) | payer OTHER ==
[2022-07-10] MEDS ORDERED: SODIUM CHLORIDE 1,497 ML IV ONE (19:19)
[2022-07-10] MEDS ORDERED: SODIUM CHLORIDE FOR INHALATION 3 ML VIAL.NEB IH ONE ×2 (20:33→20:34)
[2022-07-10 20:45] LABS: VENOUS BASE EXCESS -4.1 mmol/L (-2-2); VENOUS O2 SATURATION 94.7 % (70-80); VENOUS PCO2 39.9 mmHg (38-52); VENOUS PH 7.344 (7.310-7.410)
[2022-07-10 21:14] LABS: HEMATOCRIT 31.5 % (32.4-45.2); HEMOGLOBIN 10.9 GM/dL (10.7-15.3); LYMPH % 3.1 % (8-40); MCH 32.9 pg (25.7-33.7); MCHC 34.6 g/dl (32.0-36.0); MEAN PLT VOLUME 8.1 fl (7.5-11.1); MONO % 4.9 % (3.8-10.2); PLATELET COUNT 132 10^3/uL (134-434); RBC 3.32 M/mm3 (3.60-5.2); RDW 15.8 % (11.6-15.6); WHITE BLOOD COUNT 7.2 K/mm3 (4.0-10.0)
[2022-07-10 21:19] LABS: INR 1.04 (0.83-1.09)
[2022-07-10 21:22] LABS: ACTIVATED PTT 36.7 SECONDS (25.2-36.5)
[2022-07-10 21:27] LABS: CALCIUM 9.1 mg/dL (8.5-10.1)
[2022-07-10 21:28] LABS: ALBUMIN 3.1 g/dl (3.4-5.0); BLOOD UREA NITROGEN 23.3 mg/dL (7-18)
[2022-07-10 21:31] LABS: CREATININE 0.5 mg/dL (0.55-1.3)
[2022-07-10 21:32] LABS: BILIRUBIN,TOTAL 0.4 mg/dL (0.2-1); TOT PROT 6.6 g/dl (6.4-8.2)
[2022-07-10 21:38] LABS: URINE APPEARANCE CLEAR; URINE BILIRUBIN NEGATIVE (NEGATIVE); URINE COLOR YELLOW; URINE GLUCOSE (UA) NEGATIVE (NEGATIVE); URINE KETONE NEGATIVE (NEGATIVE); URINE LEUK ESTERASE NEGATIVE (NEGATIVE); URINE NITRITE NEGATIVE (NEGATIVE); URINE PROTEIN NEGATIVE (NEGATIVE); URINE UROBILINOGEN 0.2 mg/dL (0.2-1.0)
[2022-07-10] MEDS ORDERED: PIPERACILLIN/TAZOB 4.5 GM 4.5 GM in DEXTROSE 5%-WATER 100 ML IVPB ONE (21:53)
[2022-07-10 22:10] LABS: ERYTHROCYTE SEDIMENTATION RATE 55 mm/hr (0-20)
[2022-07-10] MEDS ORDERED: PIPERACILLIN/TAZOB 4.5 GM 4.5 GM/100 ML BAG IVPB ONE (22:17)
[2022-07-10] MEDS ORDERED: SODIUM CHLORIDE 0.9% 500 ML INFUS.BAG IV ONE (22:48)
[2022-07-10 23:41] LABS: ANISOCYTOSIS 1+; MACROCYTOSIS 1+
[2022-07-11] MEDS ORDERED: SODIUM CHLORIDE FOR INHALATION 3 ML VIAL.NEB IH ONE (04:30)
[2022-07-11] MEDS ORDERED: PATIENT'S OWN MEDICATION (NON-FORMULARY) (Diazepam [Valtoco] 10 MG/0.1 ML Spray) IN PRN (05:00)
[2022-07-11] MEDS ORDERED: BACLOFEN 10 MG TABLET (FP) ONE ×3 (06:49→21:21)
[2022-07-11] MEDS: BACLOFEN 10 MG TABLET (FP) GT SCH ×3 (06:59→21:57)
[2022-07-11] MEDS ORDERED: ALBUTEROL SO4 0.083% IH SOL 2.5 MG/3 ML VIAL.NEB. NEB ONE ×3 (08:47→21:21)
[2022-07-11] MEDS ORDERED: levETIRAcetam 500 MG TABLET (FP) PO ONE (08:47)
[2022-07-11] MEDS ORDERED: CHOLECALCIFEROL (VIT D3) 1,000 UNIT (25 MCG) TABLET ONE (08:47)
[2022-07-11] MEDS ORDERED: PIPERACILLIN/TAZOB 4.5 GM 4.5 GM/100 ML BAG IVPB ONE ×3 (08:48→22:40)
[2022-07-11] MEDS ORDERED: ENOXAPARIN NA (PORCINE) 40 MG/0.4 ML DISP.SYRIN SQ ONE (08:48)
[2022-07-11] MEDS ORDERED: TOPIRAMATE 25 MG TABLET ONE (08:48)
[2022-07-11] MEDS: ALBUTEROL SO4 0.083% IH SOL 2.5 MG/3 ML VIAL.NEB. NEB SCH ×3 (09:06→21:18)
[2022-07-11] MEDS: ENOXAPARIN NA (PORCINE) 40 MG/0.4 ML DISP.SYRIN SQ SCH (09:07)
[2022-07-11] MEDS: PIPERACILLIN/TAZOB 4.5 GM 4.5 GM in DEXTROSE 5%-WATER 100 ML IVPB SCH ×3 (09:07→22:39)
[2022-07-11 09:32] LABS: BASO % 0.1 % (0-2.0); HEMATOCRIT 31.8 % (32.4-45.2); LYMPH % 4.3 % (8-40); MCH 33.1 pg (25.7-33.7); MCHC 34.7 g/dl (32.0-36.0); MEAN CELL VOLUME 95.5 fl (80-96); MEAN PLT VOLUME 8.3 fl (7.5-11.1); MONO % 6.6 % (3.8-10.2); PLATELET COUNT 136 10^3/uL (134-434); RBC 3.33 M/mm3 (3.60-5.2); WHITE BLOOD COUNT 4.9 K/mm3 (4.0-10.0)
[2022-07-11] MEDS: TOPIRAMATE 200 MG, TOPIRAMATE 50 MG GT SCH ×2 (09:33→21:19)
[2022-07-11] MEDS: levETIRAcetam 500 MG/5 ML ORAL SOLUTION (UNIT-DOSE CUPS) GT SCH ×2 (09:33→21:19)
[2022-07-11] MEDS: VANCOMYCIN/WATER FOR INJ (PEG) 750 MG/150 ML BAG IVPB SCH ×2 (09:33→21:19)
[2022-07-11] MEDS: OXcarbazepine 300 MG/5 ML 250 ML BULK BOTTLE GT SCH ×2 (09:34→21:19)
[2022-07-11] MEDS: CHOLECALCIFEROL (VIT D3) 1,000 UNIT (25 MCG) TABLET GT SCH (09:34)
[2022-07-11] MEDS ORDERED: NUTRITIONAL SUPPLEMENT GT SCH (10:00)
[2022-07-11] MEDS ORDERED: PATIENT'S OWN MEDICATION (NON-FORMULARY) (Topiramate [Topamax] 50 MG Tablet) GT SCH (10:00)
[2022-07-11] MEDS ORDERED: TOPIRAMATE 200 MG TABLET PO SCH (10:00)
[2022-07-11 10:22] LABS: PHOSPHOROUS 2.5 mg/dL (2.5-4.9)
[2022-07-11 10:23] LABS: BLOOD UREA NITROGEN 17.4 mg/dL (7-18); CALCIUM 8.9 mg/dL (8.5-10.1); MAGNESIUM 1.8 mg/dL (1.8-2.4); TOT PROT 6.6 g/dl (6.4-8.2)
[2022-07-11 10:24] LABS: CREATININE 0.4 mg/dL (0.55-1.3)
[2022-07-11 10:25] LABS: BILIRUBIN,TOTAL 0.6 mg/dL (0.2-1)
[2022-07-11] MEDS ORDERED: ACETAMINOPHEN 1000 MG/100 ML BAG IVPB PRN (11:03)
[2022-07-11] MEDS ORDERED: DIAZEPAM 5 MG IV PRN (11:05)
[2022-07-11] MEDS ORDERED: diazePAM CARPU-JECT 10 MG/2 ML DISP.SYRIN IVPUSH PRN (11:06)
[2022-07-11] MEDS ORDERED: ACETYLCYSTEINE 20% 200MG/ML 4 ML VIAL *FOR ORAL / INH USE ONLY IH SCH (11:15)
[2022-07-11] MEDS ORDERED: ACETYLCYSTEINE 20% 200MG/ML 4 ML VIAL *FOR ORAL / INH USE ONLY ONE (16:38)
[2022-07-11] MEDS: ACETYLCYSTEINE 20% 200MG/ML 4 ML VIAL *FOR ORAL / INH USE ONLY IH SCH ×2 (16:42→20:48)
[2022-07-12] MEDS: PIPERACILLIN/TAZOB 4.5 GM 4.5 GM in DEXTROSE 5%-WATER 100 ML IVPB SCH (03:13)
[2022-07-12] MEDS: BACLOFEN 10 MG TABLET (FP) GT SCH ×3 (05:59→23:10)
[2022-07-12 08:16] LABS: BASO % 0.2 % (0-2.0); EOS % 0.3 % (0-4.5); HEMATOCRIT 25.8 % (32.4-45.2); HEMOGLOBIN 8.8 GM/dL (10.7-15.3); LYMPH % 20.5 % (8-40); MCHC 34.3 g/dl (32.0-36.0); MEAN PLT VOLUME 8.3 fl (7.5-11.1); MONO % 6.7 % (3.8-10.2); NEUT % 72.3 % (42.8-82.8); PLATELET COUNT 112 10^3/uL (134-434); RBC 2.68 M/mm3 (3.60-5.2); RDW 16.3 % (11.6-15.6); WHITE BLOOD COUNT 5.8 K/mm3 (4.0-10.0)
[2022-07-12 08:29] LABS: CALCIUM 8.6 mg/dL (8.5-10.1)
[2022-07-12] MEDS: ALBUTEROL SO4 0.083% IH SOL 2.5 MG/3 ML VIAL.NEB. NEB SCH ×3 (08:30→20:01)
[2022-07-12] MEDS: ACETYLCYSTEINE 20% 200MG/ML 4 ML VIAL *FOR ORAL / INH USE ONLY IH SCH ×3 (08:30→20:02)
[2022-07-12 08:33] LABS: CREATININE 0.5 mg/dL (0.55-1.3)
[2022-07-12 08:35] LABS: BILIRUBIN,TOTAL 0.8 mg/dL (0.2-1); TOT PROT 5.7 g/dl (6.4-8.2)
[2022-07-12 08:37] LABS: ALBUMIN 2.4 g/dl (3.4-5.0)
[2022-07-12] MEDS: levETIRAcetam 500 MG/5 ML ORAL SOLUTION (UNIT-DOSE CUPS) GT SCH ×2 (10:01→23:09)
[2022-07-12] MEDS: ENOXAPARIN NA (PORCINE) 40 MG/0.4 ML DISP.SYRIN SQ SCH (10:02)
[2022-07-12] MEDS: TOPIRAMATE 200 MG, TOPIRAMATE 50 MG GT SCH ×2 (10:02→23:10)
[2022-07-12] MEDS: CHOLECALCIFEROL (VIT D3) 1,000 UNIT (25 MCG) TABLET GT SCH (10:02)
[2022-07-12] MEDS: OXcarbazepine 300 MG/5 ML 250 ML BULK BOTTLE GT SCH ×2 (10:02→23:10)
[2022-07-12] MEDS ORDERED: POTASSIUM CHLORIDE ORAL LIQUID 20 MEQ/15 ML PO ONE (13:02)
[2022-07-12] MEDS: PIPERACILLIN/TAZOB 3.375 GM 3.375 GM in DEXTROSE 5%-WATER - 50 ML IVPB SCH ×2 (13:24→17:55)
[2022-07-12 13:41] VITALS: BMI 28.3
[2022-07-12] MEDS ORDERED: POTASSIUM CHLORIDE ORAL LIQUID 20 MEQ/15 ML GT ONE (14:30)
[2022-07-13] MEDS: PIPERACILLIN/TAZOB 3.375 GM 3.375 GM in DEXTROSE 5%-WATER - 50 ML IVPB SCH ×3 (02:19→18:08)
[2022-07-13] MEDS: BACLOFEN 10 MG TABLET (FP) GT SCH ×3 (06:03→21:54)
[2022-07-13] MEDS: ALBUTEROL SO4 0.083% IH SOL 2.5 MG/3 ML VIAL.NEB. NEB SCH ×3 (07:58→20:24)
[2022-07-13] MEDS: ACETYLCYSTEINE 20% 200MG/ML 4 ML VIAL *FOR ORAL / INH USE ONLY IH SCH ×3 (07:59→20:25)
[2022-07-13 08:10] LABS: CALCIUM 8.7 mg/dL (8.5-10.1)
[2022-07-13 08:11] LABS: ALBUMIN 2.3 g/dl (3.4-5.0); BLOOD UREA NITROGEN 16.3 mg/dL (7-18)
[2022-07-13 08:14] LABS: CREATININE 0.4 mg/dL (0.55-1.3)
[2022-07-13 08:16] LABS: TOT PROT 5.7 g/dl (6.4-8.2)
[2022-07-13 08:28] LABS: BASO % 0.3 % (0-2.0); EOS % 0.7 % (0-4.5); HEMATOCRIT 25.9 % (32.4-45.2); HEMOGLOBIN 8.6 GM/dL (10.7-15.3); LYMPH % 22.7 % (8-40); MCH 32.5 pg (25.7-33.7); MCHC 33.1 g/dl (32.0-36.0); MEAN PLT VOLUME 8.7 fl (7.5-11.1); MONO % 7.3 % (3.8-10.2); PLATELET COUNT 117 10^3/uL (134-434); RBC 2.64 M/mm3 (3.60-5.2); RDW 16.6 % (11.6-15.6)
[2022-07-13] MEDS: ENOXAPARIN NA (PORCINE) 40 MG/0.4 ML DISP.SYRIN SQ SCH (09:21)
[2022-07-13] MEDS: CHOLECALCIFEROL (VIT D3) 1,000 UNIT (25 MCG) TABLET GT SCH (09:22)
[2022-07-13] MEDS: OXcarbazepine 300 MG/5 ML 250 ML BULK BOTTLE GT SCH ×2 (09:22→21:54)
[2022-07-13] MEDS: TOPIRAMATE 200 MG, TOPIRAMATE 50 MG GT SCH ×2 (09:22→21:53)
[2022-07-13] MEDS: levETIRAcetam 500 MG/5 ML ORAL SOLUTION (UNIT-DOSE CUPS) GT SCH ×2 (09:22→21:53)
[2022-07-13] MEDS: PIPERACILLIN/TAZOB 4.5 GM 4.5 GM in DEXTROSE 5%-WATER 100 ML IVPB SCH ×2 (19:28→19:29)
[2022-07-13] MEDS: VANCOMYCIN 750 MG in DEXTROSE 5%-WATER - 150 ML IVPB SCH (19:29)
[2022-07-13] MEDS ORDERED: guaiFENesin 200 MG/10 ML 10 ML UNIT-DOSE CUPS GT ONE (23:02)
[2022-07-14] MEDS: PIPERACILLIN/TAZOB 3.375 GM 3.375 GM in DEXTROSE 5%-WATER - 50 ML IVPB SCH ×3 (01:42→17:46)
[2022-07-14] MEDS: guaiFENesin 200 MG/10 ML 10 ML UNIT-DOSE CUPS GT PRN ×2 (01:58→22:05)
[2022-07-14] MEDS: BACLOFEN 10 MG TABLET (FP) GT SCH ×3 (05:17→22:05)
[2022-07-14] MEDS: ACETYLCYSTEINE 20% 200MG/ML 4 ML VIAL *FOR ORAL / INH USE ONLY IH SCH ×4 (08:15→20:34)
[2022-07-14] MEDS: ALBUTEROL SO4 0.083% IH SOL 2.5 MG/3 ML VIAL.NEB. NEB SCH ×4 (08:15→20:33)
[2022-07-14 08:20] LABS: BASO % 0.3 % (0-2.0); EOS % 1.2 % (0-4.5); HEMATOCRIT 25.5 % (32.4-45.2); HEMOGLOBIN 8.5 GM/dL (10.7-15.3); LYMPH % 28.1 % (8-40); MCH 32.4 pg (25.7-33.7); MCHC 33.4 g/dl (32.0-36.0); MONO % 8.2 % (3.8-10.2); NEUT % 62.2 % (42.8-82.8); PLATELET COUNT 146 10^3/uL (134-434); RBC 2.63 M/mm3 (3.60-5.2); RDW 16.6 % (11.6-15.6); WHITE BLOOD COUNT 5.6 K/mm3 (4.0-10.0)
[2022-07-14 08:47] LABS: CALCIUM 8.5 mg/dL (8.5-10.1)
[2022-07-14 08:48] LABS: BLOOD UREA NITROGEN 12.4 mg/dL (7-18); MAGNESIUM 1.8 mg/dL (1.8-2.4)
[2022-07-14 08:51] LABS: CREATININE 0.3 mg/dL (0.55-1.3)
[2022-07-14] MEDS ORDERED: guaiFENesin 200 MG/10 ML 10 ML UNIT-DOSE CUPS GT SCH (10:00)
[2022-07-14] MEDS: ENOXAPARIN NA (PORCINE) 40 MG/0.4 ML DISP.SYRIN SQ SCH (10:55)
[2022-07-14] MEDS: CHOLECALCIFEROL (VIT D3) 1,000 UNIT (25 MCG) TABLET GT SCH (10:55)
[2022-07-14] MEDS: levETIRAcetam 500 MG/5 ML ORAL SOLUTION (UNIT-DOSE CUPS) GT SCH ×2 (10:57→22:05)
[2022-07-14] MEDS: OXcarbazepine 300 MG/5 ML 250 ML BULK BOTTLE GT SCH ×2 (10:58→22:05)
[2022-07-14] MEDS: TOPIRAMATE 200 MG, TOPIRAMATE 50 MG GT SCH ×2 (10:58→22:05)
[2022-07-15] MEDS: PIPERACILLIN/TAZOB 3.375 GM 3.375 GM in DEXTROSE 5%-WATER - 50 ML IVPB SCH ×3 (02:00→17:33)
[2022-07-15] MEDS: TUBE FEED DECLOGGING SOLUTION 12,000 UNITS GT SCH ×4 (02:00→17:34)
[2022-07-15] MEDS: BACLOFEN 10 MG TABLET (FP) GT SCH ×3 (03:37→21:38)
[2022-07-15] MEDS: TOPIRAMATE 200 MG, TOPIRAMATE 50 MG GT SCH ×3 (03:38→21:38)
[2022-07-15] MEDS: OXcarbazepine 300 MG/5 ML 250 ML BULK BOTTLE GT SCH ×3 (03:41→21:38)
[2022-07-15] MEDS: SCOPOLAMINE HYDROBROMIDE 1 PATCH PATCH.TD72 TD SCH (07:38)
[2022-07-15] MEDS: ACETYLCYSTEINE 20% 200MG/ML 4 ML VIAL *FOR ORAL / INH USE ONLY IH SCH ×3 (07:45→20:39)
[2022-07-15] MEDS: ALBUTEROL SO4 0.083% IH SOL 2.5 MG/3 ML VIAL.NEB. NEB SCH ×3 (07:45→20:37)
[2022-07-15] MEDS ORDERED: levETIRAcetam 500 MG/5 ML INJECTION VIAL IVPB ONE (09:49)
[2022-07-15 09:56] LABS: HEMOGLOBIN 10.2 GM/dL (10.7-15.3); MCH 32.9 pg (25.7-33.7); MCHC 33.9 g/dl (32.0-36.0); MEAN CELL VOLUME 97.3 fl (80-96); MEAN PLT VOLUME 9.2 fl (7.5-11.1); RBC 3.08 M/mm3 (3.60-5.2); RDW 16.2 % (11.6-15.6); WHITE BLOOD COUNT 12.7 K/mm3 (4.0-10.0)
[2022-07-15 09:57] LABS: PLATELET COUNT 272 10^3/uL (134-434)
[2022-07-15 10:02] LABS: CALCIUM 9.3 mg/dL (8.5-10.1)
[2022-07-15 10:05] LABS: BLOOD UREA NITROGEN 11.3 mg/dL (7-18)
[2022-07-15 10:06] LABS: CREATININE 0.3 mg/dL (0.55-1.3)
[2022-07-15] MEDS: ENOXAPARIN NA (PORCINE) 40 MG/0.4 ML DISP.SYRIN SQ SCH (10:49)
[2022-07-15 10:57] LABS: ANISOCYTOSIS 1+; MACROCYTOSIS 0
[2022-07-15] MEDS: levETIRAcetam 500 MG/5 ML ORAL SOLUTION (UNIT-DOSE CUPS) GT SCH ×2 (11:22→21:38)
[2022-07-15] MEDS: CHOLECALCIFEROL (VIT D3) 1,000 UNIT (25 MCG) TABLET GT SCH (11:23)
[2022-07-16] MEDS: PIPERACILLIN/TAZOB 3.375 GM 3.375 GM in DEXTROSE 5%-WATER - 50 ML IVPB SCH ×3 (01:51→18:19)
[2022-07-16] MEDS: BACLOFEN 10 MG TABLET (FP) GT SCH ×3 (05:49→22:24)
[2022-07-16] MEDS: ACETYLCYSTEINE 20% 200MG/ML 4 ML VIAL *FOR ORAL / INH USE ONLY IH SCH ×3 (07:55→20:05)
[2022-07-16] MEDS: ALBUTEROL SO4 0.083% IH SOL 2.5 MG/3 ML VIAL.NEB. NEB SCH ×3 (07:55→20:05)
[2022-07-16] MEDS: TUBE FEED DECLOGGING SOLUTION 12,000 UNITS GT SCH ×3 (08:09→18:20)
[2022-07-16 09:00] LABS: BASO % 0.4 % (0-2.0); EOS % 1.3 % (0-4.5); HEMATOCRIT 24.9 % (32.4-45.2); HEMOGLOBIN 8.4 GM/dL (10.7-15.3); LYMPH % 42.8 % (8-40); MCH 32.6 pg (25.7-33.7); MCHC 33.8 g/dl (32.0-36.0); MEAN CELL VOLUME 96.6 fl (80-96); MEAN PLT VOLUME 8.6 fl (7.5-11.1); MONO % 12.6 % (3.8-10.2); NEUT % 42.9 % (42.8-82.8); PLATELET COUNT 213 10^3/uL (134-434); RBC 2.58 M/mm3 (3.60-5.2); RDW 16.1 % (11.6-15.6); WHITE BLOOD COUNT 4.9 K/mm3 (4.0-10.0)
[2022-07-16] MEDS: CHOLECALCIFEROL (VIT D3) 1,000 UNIT (25 MCG) TABLET GT SCH (10:03)
[2022-07-16] MEDS: TOPIRAMATE 200 MG, TOPIRAMATE 50 MG GT SCH ×2 (10:04→22:28)
[2022-07-16] MEDS: levETIRAcetam 500 MG/5 ML ORAL SOLUTION (UNIT-DOSE CUPS) GT SCH ×2 (10:10→22:27)
[2022-07-16] MEDS: ENOXAPARIN NA (PORCINE) 40 MG/0.4 ML DISP.SYRIN SQ SCH (10:11)
[2022-07-16] MEDS: OXcarbazepine 300 MG/5 ML 250 ML BULK BOTTLE GT SCH ×2 (10:12→22:30)
[2022-07-16 10:13] LABS: CALCIUM 8.6 mg/dL (8.5-10.1)
[2022-07-16 10:14] LABS: ALBUMIN 2.4 g/dl (3.4-5.0); BLOOD UREA NITROGEN 14.1 mg/dL (7-18)
[2022-07-16 10:17] LABS: CREATININE 0.4 mg/dL (0.55-1.3)
[2022-07-16 10:19] LABS: BILIRUBIN,TOTAL 0.3 mg/dL (0.2-1)
[2022-07-16] MEDS: methylPREDNISolone NA SUCC 40 MG/1 ML VIAL IVPUSH SCH ×3 (12:27→22:26)
[2022-07-17] MEDS: BACLOFEN 10 MG TABLET (FP) GT SCH ×4 (00:14→21:06)
[2022-07-17] MEDS: methylPREDNISolone NA SUCC 40 MG/1 ML VIAL IVPUSH SCH ×3 (02:00→17:35)
[2022-07-17] MEDS: PIPERACILLIN/TAZOB 3.375 GM 3.375 GM in DEXTROSE 5%-WATER - 50 ML IVPB SCH ×3 (02:00→17:34)
[2022-07-17] MEDS: ALBUTEROL SO4 0.083% IH SOL 2.5 MG/3 ML VIAL.NEB. NEB SCH ×3 (07:54→20:27)
[2022-07-17] MEDS: ACETYLCYSTEINE 20% 200MG/ML 4 ML VIAL *FOR ORAL / INH USE ONLY IH SCH ×3 (07:54→20:28)
[2022-07-17 08:22] LABS: HEMATOCRIT 27.8 % (32.4-45.2); HEMOGLOBIN 9.2 GM/dL (10.7-15.3); MCH 32.2 pg (25.7-33.7); MCHC 33.2 g/dl (32.0-36.0); MEAN PLT VOLUME 8.4 fl (7.5-11.1); PLATELET COUNT 252 10^3/uL (134-434); RBC 2.87 M/mm3 (3.60-5.2); WHITE BLOOD COUNT 4.5 K/mm3 (4.0-10.0)
[2022-07-17] MEDS: guaiFENesin 200 MG/10 ML 10 ML UNIT-DOSE CUPS GT PRN ×2 (08:39→21:07)
[2022-07-17 08:59] LABS: ALBUMIN 2.7 g/dl (3.4-5.0); BLOOD UREA NITROGEN 15.8 mg/dL (7-18); CALCIUM 8.8 mg/dL (8.5-10.1); MAGNESIUM 2.1 mg/dL (1.8-2.4)
[2022-07-17 09:02] LABS: CREATININE 0.4 mg/dL (0.55-1.3)
[2022-07-17 09:03] LABS: TOT PROT 6.6 g/dl (6.4-8.2)
[2022-07-17 09:04] LABS: BILIRUBIN,TOTAL 0.3 mg/dL (0.2-1)
[2022-07-17] MEDS: PANTOPRAZOLE SODIUM 40 MG VIAL IVPUSH SCH (09:31)
[2022-07-17] MEDS: levETIRAcetam 500 MG/5 ML ORAL SOLUTION (UNIT-DOSE CUPS) GT SCH ×2 (09:37→21:07)
[2022-07-17] MEDS: ENOXAPARIN NA (PORCINE) 40 MG/0.4 ML DISP.SYRIN SQ SCH (09:37)
[2022-07-17] MEDS: CHOLECALCIFEROL (VIT D3) 1,000 UNIT (25 MCG) TABLET GT SCH (09:37)
[2022-07-17] MEDS: TOPIRAMATE 200 MG, TOPIRAMATE 50 MG GT SCH ×2 (09:38→21:07)
[2022-07-17] MEDS: OXcarbazepine 300 MG/5 ML 250 ML BULK BOTTLE GT SCH ×2 (09:38→21:07)
[2022-07-17] MEDS: TUBE FEED DECLOGGING SOLUTION 12,000 UNITS GT SCH ×3 (09:40→16:58)
[2022-07-18] MEDS: PIPERACILLIN/TAZOB 3.375 GM 3.375 GM in DEXTROSE 5%-WATER - 50 ML IVPB SCH ×3 (02:27→17:13)
[2022-07-18] MEDS: methylPREDNISolone NA SUCC 40 MG/1 ML VIAL IVPUSH SCH ×3 (02:27→17:13)
[2022-07-18] MEDS: BACLOFEN 10 MG TABLET (FP) GT SCH ×3 (06:05→21:08)
[2022-07-18] MEDS: ACETYLCYSTEINE 20% 200MG/ML 4 ML VIAL *FOR ORAL / INH USE ONLY IH SCH ×3 (07:15→20:25)
[2022-07-18] MEDS: ALBUTEROL SO4 0.083% IH SOL 2.5 MG/3 ML VIAL.NEB. NEB SCH ×3 (07:15→20:25)
[2022-07-18] MEDS: SCOPOLAMINE HYDROBROMIDE 1 PATCH PATCH.TD72 TD SCH (07:17)
[2022-07-18 08:30] LABS: HEMATOCRIT 27.7 % (32.4-45.2); HEMOGLOBIN 9.4 GM/dL (10.7-15.3); MCH 32.8 pg (25.7-33.7); MCHC 33.8 g/dl (32.0-36.0); MEAN CELL VOLUME 97.2 fl (80-96); MEAN PLT VOLUME 8.7 fl (7.5-11.1); PLATELET COUNT 326 10^3/uL (134-434); RBC 2.85 M/mm3 (3.60-5.2); RDW 15.9 % (11.6-15.6)
[2022-07-18 08:41] LABS: ALBUMIN 2.8 g/dl (3.4-5.0); CALCIUM 8.9 mg/dL (8.5-10.1)
[2022-07-18 08:42] LABS: BLOOD UREA NITROGEN 17.6 mg/dL (7-18)
[2022-07-18 08:45] LABS: CREATININE 0.4 mg/dL (0.55-1.3)
[2022-07-18 08:46] LABS: BILIRUBIN,TOTAL 0.2 mg/dL (0.2-1); TOT PROT 6.8 g/dl (6.4-8.2)
[2022-07-18] MEDS: CHOLECALCIFEROL (VIT D3) 1,000 UNIT (25 MCG) TABLET GT SCH (09:28)
[2022-07-18] MEDS: PANTOPRAZOLE SODIUM 40 MG VIAL IVPUSH SCH (09:29)
[2022-07-18] MEDS: ENOXAPARIN NA (PORCINE) 40 MG/0.4 ML DISP.SYRIN SQ SCH (09:30)
[2022-07-18] MEDS: levETIRAcetam 500 MG/5 ML ORAL SOLUTION (UNIT-DOSE CUPS) GT SCH ×2 (09:30→21:08)
[2022-07-18] MEDS: TOPIRAMATE 200 MG, TOPIRAMATE 50 MG GT SCH ×2 (09:31→21:08)
[2022-07-18] MEDS: OXcarbazepine 300 MG/5 ML 250 ML BULK BOTTLE GT SCH ×2 (09:32→21:08)
[2022-07-18] MEDS: TUBE FEED DECLOGGING SOLUTION 12,000 UNITS GT SCH (10:20)
[2022-07-18 11:08] LABS: ANISOCYTOSIS 0; HELMET CELLS 0; HOWELL-JOLLY BODIES 0; MACROCYTOSIS 0; OVALOCYTE 0; ROULEAU 0; SICKELED CELLS 0; TARGET CELLS 0; TEAR DROP CELLS 0; TOXIC GRANULATION 0
[2022-07-18] MEDS ORDERED: FUROSEMIDE 40 MG/4 ML INJECTABLE VIAL IVPUSH ONE (11:29)
[2022-07-18] MEDS: guaiFENesin 200 MG/10 ML 10 ML UNIT-DOSE CUPS GT PRN (21:08)
[2022-07-19] MEDS: methylPREDNISolone NA SUCC 40 MG/1 ML VIAL IVPUSH SCH ×3 (02:30→22:32)
[2022-07-19] MEDS: PIPERACILLIN/TAZOB 3.375 GM 3.375 GM in DEXTROSE 5%-WATER - 50 ML IVPB SCH ×3 (02:30→17:32)
[2022-07-19] MEDS: BACLOFEN 10 MG TABLET (FP) GT SCH ×3 (05:17→22:32)
[2022-07-19] MEDS: ALBUTEROL SO4 0.083% IH SOL 2.5 MG/3 ML VIAL.NEB. NEB SCH ×3 (08:10→20:36)
[2022-07-19] MEDS: ACETYLCYSTEINE 20% 200MG/ML 4 ML VIAL *FOR ORAL / INH USE ONLY IH SCH ×3 (08:10→20:35)
[2022-07-19] MEDS: PANTOPRAZOLE SODIUM 40 MG VIAL IVPUSH SCH (11:41)
[2022-07-19] MEDS: CHOLECALCIFEROL (VIT D3) 1,000 UNIT (25 MCG) TABLET GT SCH ×2 (11:41→17:03)
[2022-07-19] MEDS: levETIRAcetam 500 MG/5 ML ORAL SOLUTION (UNIT-DOSE CUPS) GT SCH (11:42)
[2022-07-19] MEDS: ENOXAPARIN NA (PORCINE) 40 MG/0.4 ML DISP.SYRIN SQ SCH (11:42)
[2022-07-19] MEDS: TOPIRAMATE 200 MG, TOPIRAMATE 50 MG GT SCH ×3 (11:43→22:32)
[2022-07-19] MEDS: OXcarbazepine 300 MG/5 ML 250 ML BULK BOTTLE GT SCH ×3 (11:44→22:32)
[2022-07-19] MEDS: levETIRAcetam 500 MG/5 ML INJECTION VIAL IVPB SCH ×2 (14:36→22:31)
[2022-07-19] MEDS: TUBE FEED DECLOGGING SOLUTION 12,000 UNITS GT SCH (17:29)
[2022-07-20] MEDS: PIPERACILLIN/TAZOB 3.375 GM 3.375 GM in DEXTROSE 5%-WATER - 50 ML IVPB SCH ×3 (02:38→17:36)
[2022-07-20] MEDS: BACLOFEN 10 MG TABLET (FP) GT SCH ×3 (06:01→21:11)
[2022-07-20] MEDS: ACETYLCYSTEINE 20% 200MG/ML 4 ML VIAL *FOR ORAL / INH USE ONLY IH SCH ×3 (08:48→20:29)
[2022-07-20] MEDS: ALBUTEROL SO4 0.083% IH SOL 2.5 MG/3 ML VIAL.NEB. NEB SCH ×3 (08:48→20:29)
[2022-07-20] MEDS: PANTOPRAZOLE SODIUM 40 MG VIAL IVPUSH SCH (09:21)
[2022-07-20] MEDS: ENOXAPARIN NA (PORCINE) 40 MG/0.4 ML DISP.SYRIN SQ SCH (09:21)
[2022-07-20] MEDS: methylPREDNISolone NA SUCC 40 MG/1 ML VIAL IVPUSH SCH (09:23)
[2022-07-20] MEDS: CHOLECALCIFEROL (VIT D3) 1,000 UNIT (25 MCG) TABLET GT SCH (09:25)
[2022-07-20] MEDS: TOPIRAMATE 200 MG, TOPIRAMATE 50 MG GT SCH ×2 (09:26→21:07)
[2022-07-20] MEDS: OXcarbazepine 300 MG/5 ML 250 ML BULK BOTTLE GT SCH ×2 (09:27→21:10)
[2022-07-20] MEDS: levETIRAcetam 500 MG/5 ML INJECTION VIAL IVPB SCH ×2 (09:54→21:03)
[2022-07-20] MEDS: TUBE FEED DECLOGGING SOLUTION 12,000 UNITS GT SCH ×3 (09:56→17:51)
[2022-07-20 11:04] LABS: BASO % 0.3 % (0-2.0); EOS % 0.5 % (0-4.5); HEMATOCRIT 30.4 % (32.4-45.2); HEMOGLOBIN 10.1 GM/dL (10.7-15.3); LYMPH % 52.1 % (8-40); MCH 32.7 pg (25.7-33.7); MCHC 33.3 g/dl (32.0-36.0); MEAN CELL VOLUME 98.3 fl (80-96); MEAN PLT VOLUME 7.9 fl (7.5-11.1); MONO % 7.5 % (3.8-10.2); NEUT % 39.6 % (42.8-82.8); PLATELET COUNT 550 10^3/uL (134-434); RDW 16.2 % (11.6-15.6); WHITE BLOOD COUNT 5.5 K/mm3 (4.0-10.0)
[2022-07-20 11:42] LABS: ALBUMIN 2.9 g/dl (3.4-5.0); CALCIUM 8.9 mg/dL (8.5-10.1)
[2022-07-20 11:46] LABS: CREATININE 0.5 mg/dL (0.55-1.3)
[2022-07-20 11:48] LABS: BILIRUBIN,TOTAL 0.4 mg/dL (0.2-1); TOT PROT 6.9 g/dl (6.4-8.2)
[2022-07-20] MEDS: guaiFENesin 200 MG/10 ML 10 ML UNIT-DOSE CUPS GT PRN (21:11)
[2022-07-21] MEDS: PIPERACILLIN/TAZOB 3.375 GM 3.375 GM in DEXTROSE 5%-WATER - 50 ML IVPB SCH (01:47)
[2022-07-21] MEDS: SCOPOLAMINE HYDROBROMIDE 1 PATCH PATCH.TD72 TD SCH (06:16)
[2022-07-21] MEDS: BACLOFEN 10 MG TABLET (FP) GT SCH ×3 (06:16→21:08)
[2022-07-21 07:52] LABS: HEMATOCRIT 30.8 % (32.4-45.2); HEMOGLOBIN 10.1 GM/dL (10.7-15.3); MCH 32.2 pg (25.7-33.7); MCHC 32.9 g/dl (32.0-36.0); MEAN CELL VOLUME 97.7 fl (80-96); MEAN PLT VOLUME 7.8 fl (7.5-11.1); PLATELET COUNT 563 10^3/uL (134-434); RBC 3.16 M/mm3 (3.60-5.2); RDW 16.5 % (11.6-15.6); WHITE BLOOD COUNT 5.2 K/mm3 (4.0-10.0)
[2022-07-21 07:58] LABS: ALBUMIN 2.9 g/dl (3.4-5.0); CALCIUM 8.9 mg/dL (8.5-10.1)
[2022-07-21 08:01] LABS: CREATININE 0.5 mg/dL (0.55-1.3)
[2022-07-21 08:02] LABS: BILIRUBIN,TOTAL 0.2 mg/dL (0.2-1); TOT PROT 6.7 g/dl (6.4-8.2)
[2022-07-21] MEDS: ACETYLCYSTEINE 20% 200MG/ML 4 ML VIAL *FOR ORAL / INH USE ONLY IH SCH ×3 (08:23→20:12)
[2022-07-21] MEDS: ALBUTEROL SO4 0.083% IH SOL 2.5 MG/3 ML VIAL.NEB. NEB SCH ×3 (08:23→20:12)
[2022-07-21] MEDS: PANTOPRAZOLE SODIUM 40 MG VIAL IVPUSH SCH (09:10)
[2022-07-21] MEDS: CHOLECALCIFEROL (VIT D3) 1,000 UNIT (25 MCG) TABLET GT SCH (09:10)
[2022-07-21] MEDS: methylPREDNISolone NA SUCC 40 MG/1 ML VIAL IVPUSH SCH (09:12)
[2022-07-21] MEDS: TOPIRAMATE 200 MG, TOPIRAMATE 50 MG GT SCH ×2 (09:13→21:07)
[2022-07-21] MEDS: ENOXAPARIN NA (PORCINE) 40 MG/0.4 ML DISP.SYRIN SQ SCH (09:13)
[2022-07-21] MEDS: levETIRAcetam 500 MG/5 ML ORAL SOLUTION (UNIT-DOSE CUPS) GT SCH ×2 (09:17→21:08)
[2022-07-21] MEDS: OXcarbazepine 300 MG/5 ML 250 ML BULK BOTTLE GT SCH ×2 (09:18→21:08)
[2022-07-21] MEDS: TUBE FEED DECLOGGING SOLUTION 12,000 UNITS GT SCH ×3 (09:18→17:21)
[2022-07-21] MEDS: levETIRAcetam 500 MG/5 ML INJECTION VIAL IVPB SCH (09:18)
[2022-07-21 10:29] LABS: ANISOCYTOSIS 0; MACROCYTOSIS 0
[2022-07-21] MEDS: guaiFENesin 200 MG/10 ML 10 ML UNIT-DOSE CUPS GT PRN (21:08)
[2022-07-22] MEDS: BACLOFEN 10 MG TABLET (FP) GT SCH ×3 (05:39→21:12)
[2022-07-22] MEDS: ACETYLCYSTEINE 20% 200MG/ML 4 ML VIAL *FOR ORAL / INH USE ONLY IH SCH ×3 (07:20→21:04)
[2022-07-22] MEDS: ALBUTEROL SO4 0.083% IH SOL 2.5 MG/3 ML VIAL.NEB. NEB SCH ×3 (07:20→21:04)
[2022-07-22] MEDS: TUBE FEED DECLOGGING SOLUTION 12,000 UNITS GT SCH ×3 (09:00→20:36)
[2022-07-22] MEDS: CHOLECALCIFEROL (VIT D3) 1,000 UNIT (25 MCG) TABLET GT SCH (10:26)
[2022-07-22] MEDS: ENOXAPARIN NA (PORCINE) 40 MG/0.4 ML DISP.SYRIN SQ SCH (10:27)
[2022-07-22] MEDS: PANTOPRAZOLE SODIUM 40 MG VIAL IVPUSH SCH (10:28)
[2022-07-22] MEDS: levETIRAcetam 500 MG/5 ML ORAL SOLUTION (UNIT-DOSE CUPS) GT SCH ×2 (10:28→21:11)
[2022-07-22] MEDS: methylPREDNISolone NA SUCC 40 MG/1 ML VIAL IVPUSH SCH (10:28)
[2022-07-22] MEDS: predniSONE 5 MG/5 ML ORAL SOLN- UNIT-DOSE CUP GT SCH (10:29)
[2022-07-22] MEDS: TOPIRAMATE 200 MG, TOPIRAMATE 50 MG GT SCH ×2 (10:31→21:12)
[2022-07-22] MEDS: OXcarbazepine 300 MG/5 ML 250 ML BULK BOTTLE GT SCH ×2 (10:33→21:12)
[2022-07-22] MEDS: guaiFENesin 200 MG/10 ML 10 ML UNIT-DOSE CUPS GT PRN (21:11)
[2022-07-23] MEDS: BACLOFEN 10 MG TABLET (FP) GT SCH ×3 (05:01→21:09)
[2022-07-23] MEDS: ALBUTEROL SO4 0.083% IH SOL 2.5 MG/3 ML VIAL.NEB. NEB SCH ×3 (08:19→20:10)
[2022-07-23] MEDS: ACETYLCYSTEINE 20% 200MG/ML 4 ML VIAL *FOR ORAL / INH USE ONLY IH SCH ×3 (08:20→20:43)
[2022-07-23] MEDS: predniSONE 5 MG/5 ML ORAL SOLN- UNIT-DOSE CUP GT SCH (10:43)
[2022-07-23] MEDS: CHOLECALCIFEROL (VIT D3) 1,000 UNIT (25 MCG) TABLET GT SCH (11:00)
[2022-07-23] MEDS: levETIRAcetam 500 MG/5 ML ORAL SOLUTION (UNIT-DOSE CUPS) GT SCH ×2 (11:00→21:10)
[2022-07-23] MEDS: TOPIRAMATE 200 MG, TOPIRAMATE 50 MG GT SCH ×2 (11:00→21:08)
[2022-07-23] MEDS: OXcarbazepine 300 MG/5 ML 250 ML BULK BOTTLE GT SCH ×2 (11:00→21:07)
[2022-07-23] MEDS: ENOXAPARIN NA (PORCINE) 40 MG/0.4 ML DISP.SYRIN SQ SCH (11:06)
[2022-07-23] MEDS ORDERED: ACETAMINOPHEN 1000 MG/100 ML BAG IVPB ONE (17:08)
[2022-07-23] MEDS: ACETAMINOPHEN 650 MG/20.3 ML ORAL SOLUTION (CUPS) GT PRN (18:09)
[2022-07-23] MEDS: PANTOPRAZOLE SODIUM 40 MG VIAL IVPUSH SCH (18:26)
[2022-07-23] MEDS: TUBE FEED DECLOGGING SOLUTION 12,000 UNITS GT SCH (18:27)
[2022-07-23] MEDS ORDERED: ACETAMINOPHEN 650 MG/20.3 ML ORAL SOLUTION (CUPS) GT PRN (21:00)
[2022-07-24] MEDS: SCOPOLAMINE HYDROBROMIDE 1 PATCH PATCH.TD72 TD SCH (06:21)
[2022-07-24] MEDS: BACLOFEN 10 MG TABLET (FP) GT SCH ×3 (06:21→21:11)
[2022-07-24] MEDS: ALBUTEROL SO4 0.083% IH SOL 2.5 MG/3 ML VIAL.NEB. NEB SCH ×3 (07:35→20:19)
[2022-07-24] MEDS: ACETYLCYSTEINE 20% 200MG/ML 4 ML VIAL *FOR ORAL / INH USE ONLY IH SCH ×3 (07:35→20:19)
[2022-07-24] MEDS: TUBE FEED DECLOGGING SOLUTION 12,000 UNITS GT SCH ×3 (08:53→17:17)
[2022-07-24] MEDS ORDERED: predniSONE 5 MG/5 ML ORAL SOLN- UNIT-DOSE CUP GT SCH (10:00)
[2022-07-24] MEDS: CHOLECALCIFEROL (VIT D3) 1,000 UNIT (25 MCG) TABLET GT SCH (10:14)
[2022-07-24] MEDS: levETIRAcetam 500 MG/5 ML ORAL SOLUTION (UNIT-DOSE CUPS) GT SCH ×2 (10:14→21:10)
[2022-07-24] MEDS: predniSONE 5 MG/5 ML ORAL SOLN- UNIT-DOSE CUP GT SCH (10:14)
[2022-07-24] MEDS: TOPIRAMATE 200 MG, TOPIRAMATE 50 MG GT SCH ×2 (10:15→21:11)
[2022-07-24] MEDS: PANTOPRAZOLE SODIUM 40 MG VIAL IVPUSH SCH (10:16)
[2022-07-24] MEDS: OXcarbazepine 300 MG/5 ML 250 ML BULK BOTTLE GT SCH ×2 (10:17→21:11)
[2022-07-24] MEDS: PANTOPRAZOLE SOD 40 MG SUSPENSION PACKET NR SCH (14:41)
[2022-07-24] MEDS: guaiFENesin 200 MG/10 ML 10 ML UNIT-DOSE CUPS GT PRN (21:12)
[2022-07-24] MEDS: ACETAMINOPHEN 650 MG/20.3 ML ORAL SOLUTION (CUPS) GT PRN (21:12)
[2022-07-25] MEDS: BACLOFEN 10 MG TABLET (FP) GT SCH ×3 (06:03→21:18)
[2022-07-25] MEDS: ACETYLCYSTEINE 20% 200MG/ML 4 ML VIAL *FOR ORAL / INH USE ONLY IH SCH ×3 (07:50→20:30)
[2022-07-25] MEDS: ALBUTEROL SO4 0.083% IH SOL 2.5 MG/3 ML VIAL.NEB. NEB SCH ×3 (07:50→20:30)
[2022-07-25] MEDS: TUBE FEED DECLOGGING SOLUTION 12,000 UNITS GT SCH ×3 (09:31→18:48)
[2022-07-25] MEDS: predniSONE 5 MG/5 ML ORAL SOLN- UNIT-DOSE CUP GT SCH (09:32)
[2022-07-25] MEDS: PANTOPRAZOLE SOD 40 MG SUSPENSION PACKET NR SCH (09:32)
[2022-07-25] MEDS: levETIRAcetam 500 MG/5 ML ORAL SOLUTION (UNIT-DOSE CUPS) GT SCH ×2 (09:32→21:17)
[2022-07-25] MEDS: TOPIRAMATE 200 MG, TOPIRAMATE 50 MG GT SCH ×2 (09:33→21:17)
[2022-07-25] MEDS: OXcarbazepine 300 MG/5 ML 250 ML BULK BOTTLE GT SCH ×2 (09:33→21:18)
[2022-07-25] MEDS: CHOLECALCIFEROL (VIT D3) 1,000 UNIT (25 MCG) TABLET GT SCH (09:33)
[2022-07-25] MEDS: guaiFENesin 200 MG/10 ML 10 ML UNIT-DOSE CUPS GT PRN (21:17)
[2022-07-25] MEDS: ACETAMINOPHEN 650 MG/20.3 ML ORAL SOLUTION (CUPS) GT PRN (21:18)
[2022-07-26] MEDS: BACLOFEN 10 MG TABLET (FP) GT SCH (05:24)
[2022-07-26] MEDS ORDERED: ACETAMINOPHEN 650 MG/20.3 ML ORAL SOLUTION (CUPS) GT PRN (07:35)
[2022-07-26] MEDS ORDERED: guaiFENesin 200 MG/10 ML 10 ML UNIT-DOSE CUPS GT PRN (07:35)
[2022-07-26] MEDS: ACETYLCYSTEINE 20% 200MG/ML 4 ML VIAL *FOR ORAL / INH USE ONLY IH SCH ×2 (07:59→15:20)
[2022-07-26] MEDS: ALBUTEROL SO4 0.083% IH SOL 2.5 MG/3 ML VIAL.NEB. NEB SCH ×2 (08:00→15:20)
[2022-07-26] MEDS ORDERED: OXcarbazepine 300 MG/5 ML 250 ML BULK BOTTLE GT SCH (10:00)
[2022-07-26] MEDS ORDERED: FAMOTIDINE 40 MG/5 ML ORAL SUSPENSION GT SCH (10:00)
[2022-07-26] MEDS ORDERED: TOPIRAMATE 200 MG, TOPIRAMATE 50 MG GT SCH (10:00)
[2022-07-26] MEDS ORDERED: CHOLECALCIFEROL (VIT D3) 1,000 UNIT (25 MCG) TABLET GT SCH (10:00)
[2022-07-26] MEDS ORDERED: predniSONE 5 MG/5 ML ORAL SOLN- UNIT-DOSE CUP GT SCH ×3 (10:00)
[2022-07-26] MEDS ORDERED: levETIRAcetam 500 MG/5 ML ORAL SOLUTION (UNIT-DOSE CUPS) GT SCH (10:00)
[2022-07-26] MEDS: TUBE FEED DECLOGGING SOLUTION 12,000 UNITS GT SCH ×2 (10:11→12:09)
[2022-07-26] MEDS: PANTOPRAZOLE SOD 40 MG SUSPENSION PACKET NR SCH ×2 (10:11→11:25)
[2022-07-26 10:49] VITALS: RESP 18
[2022-07-26] MEDS ORDERED: BACLOFEN 10 MG TABLET (FP) GT SCH (14:00)
[2022-07-26 15:27] VITALS: BP 115/72; PULSE 75; TEMP 98.2
[2022-07-27] MEDS ORDERED: SCOPOLAMINE HYDROBROMIDE 1 PATCH PATCH.TD72 TD SCH (07:15)
[2022-07-28] MEDS ORDERED: predniSONE 5 MG/5 ML ORAL SOLN- UNIT-DOSE CUP GT SCH ×2 (10:00)
== END 2022-07-26 18:05 | disposition home or self-care (01) | DRG 177 ==
LOC: JER 18:11 → JERBED 07-11 00:32 → J4S 07-12 01:34 → J6S 07-26 05:57
PROVIDERS: ADMIT Internal Medicine; ATTEND Nurse Practitioner Acute Care
PROC: 3E0G76Z Introduction of Nutritional Substance into Upper GI, Via Natural or Artificial Opening (ICD-10-PCS; principal; 2022-07-11)
DX: J69.0 Pneumonitis due to inhalation of food and vomit (principal); G80.0 Spastic quadriplegic cerebral palsy; J96.01 Acute respiratory failure with hypoxia; R53.2 Functional quadriplegia; E87.1 Hypo-osmolality and hyponatremia; F73 Profound intellectual disabilities; K21.9 Gastro-esophageal reflux disease without esophagitis; I34.0 Nonrheumatic mitral (valve) insufficiency; G40.909 Epilepsy, unspecified, not intractable, without status epilepticus; D69.6 Thrombocytopenia, unspecified; M81.0 Age-related osteoporosis without current pathological fracture; M41.9 Scoliosis, unspecified; D64.9 Anemia, unspecified; R74.01 Elevation of levels of liver transaminase levels; Z93.1 Gastrostomy status; Z99.81 Dependence on supplemental oxygen; G47.33 Obstructive sleep apnea (adult) (pediatric)
CPT/HCPCS: 0241U-QW; 36415; 71045-TC-FY; 76705-TC; 80048; 80053; 80177; 80183; 80201; 81003; 82550; 82553; 82803; 83605; 83735; 84100; 84439; 84443; 84484; 84703; 85025; 85379; 85384; 85610; 85651; 85730; 86140; 86704; 86803; 86850; 86900; 86901; 87040; 87070; 87086; 87186; 87205; 87340; 87517; 87899; 93005; 93010; 94640; 94761; 99285-25; C9803-CS; J0475; U0003; U0005

== ENCOUNTER 2022-11-09 19:27 | Observation (INO) | payer OTHER ==
[2022-11-09 20:49] LABS: BASO % 0.3 % (0-2.0); EOS % 0.5 % (0-4.5); HEMATOCRIT 32.2 % (32.4-45.2); HEMOGLOBIN 11.2 GM/dL (10.7-15.3); LYMPH % 20.6 % (8-40); MCH 32.8 pg (25.7-33.7); MCHC 34.8 g/dl (32.0-36.0); MEAN CELL VOLUME 94.3 fl (80-96); MEAN PLT VOLUME 7.9 fl (7.5-11.1); MONO % 6.7 % (3.8-10.2); NEUT % 71.9 % (42.8-82.8); PLATELET COUNT 201 10^3/uL (134-434); RBC 3.41 M/mm3 (3.60-5.2); RDW 15.6 % (11.6-15.6); WHITE BLOOD COUNT 5.6 K/mm3 (4.0-10.0)
[2022-11-09 20:55] LABS: INR 1.02 (0.83-1.09); PROTHROMBIN TIME (PATIENT) 11.8 SEC (9.7-13.0)
[2022-11-09 20:58] LABS: ACTIVATED PTT 39.9 SECONDS (25.2-36.5)
[2022-11-09 21:01] LABS: POTASSIUM 4.9 mmol/L (3.5-5.1)
[2022-11-09 21:04] LABS: ALBUMIN 3.5 g/dl (3.4-5.0); BLOOD UREA NITROGEN 27.7 mg/dL (7-18); MAGNESIUM 1.9 mg/dL (1.8-2.4)
[2022-11-09 21:07] LABS: CREATININE 0.3 mg/dL (0.55-1.3); PHOSPHOROUS 4.2 mg/dL (2.5-4.9)
[2022-11-09 21:09] LABS: BILIRUBIN,TOTAL 0.2 mg/dL (0.2-1); TOT PROT 7.2 g/dl (6.4-8.2)
[2022-11-09 22:02] LABS: EPI CELLS 8 /uL (0-25.1); HYALINE CASTS 1 /uL (0-3.1); PH,URINE 8.5 (5.0-8.0); URINE APPEARANCE CLEAR; URINE BACTERIA 14 /uL (0-1359); URINE BILIRUBIN NEGATIVE (NEGATIVE); URINE COLOR YELLOW; URINE GLUCOSE (UA) NEGATIVE (NEGATIVE); URINE KETONE NEGATIVE (NEGATIVE); URINE LEUK ESTERASE TRACE (NEGATIVE); URINE NITRITE NEGATIVE (NEGATIVE); URINE PROTEIN NEGATIVE (NEGATIVE); URINE RBC 3 /uL (0-23.9); URINE UROBILINOGEN 0.2 mg/dL (0.2-1.0); URINE WBC 42 /uL (0-25.8)
[2022-11-09] MEDS ORDERED: CEFTRIAXONE 1 GM in DEXTROSE 5%-WATER - 100 ML IVPB ONE (22:26)
[2022-11-10] MEDS ORDERED: CEFTRIAXONE 1 GM/50 ML BAG ONE (01:46)
[2022-11-10] MEDS ORDERED: SODIUM CHLORIDE NASAL SPRAY 44 ML BOTTLE NS PRN (03:08)
[2022-11-10] MEDS ORDERED: MAG HYDROX/AL HYDROX/SIMETH 30 ML UNIT-DOSE CUP GT PRN (03:08)
[2022-11-10] MEDS ORDERED: BISACODYL 10 MG SUPP.RECT RC PRN (03:08)
[2022-11-10] MEDS ORDERED: VITAMINS A AND D TOPICAL OINTMENT 60 GM TUBE TP PRN (03:08)
[2022-11-10] MEDS ORDERED: diazePAM RECTAL GEL 10 MG KIT (PRE-CALIBRATED) RC PRN (03:08)
[2022-11-10] MEDS ORDERED: SODIUM PHOSPHATE/NA BIPHOS 133 ML ENEMA RC PRN (03:08)
[2022-11-10] MEDS ORDERED: guaiFENesin 200 MG/10 ML 10 ML UNIT-DOSE CUPS GT PRN (03:08)
[2022-11-10] MEDS ORDERED: ACETAMINOPHEN 650 MG/20.3 ML ORAL SOLUTION (CUPS) GT PRN (03:08)
[2022-11-10] MEDS ORDERED: BACITRACIN ZINC 15 GM TUBE TOPICAL OINTMENT TP PRN (03:08)
[2022-11-10] MEDS ORDERED: NAPHAZOLINE/PHENIRAMINE OPHTHALMIC 15 ML BOTTLE OU PRN (03:08)
[2022-11-10] MEDS ORDERED: NYSTATIN/TRIAMCINOLONE TOPICAL CREAM 15 GM TUBE TP PRN (03:08)
[2022-11-10] MEDS ORDERED: SIMETHICONE 40 MG/0.6 ML BOTTLE GT PRN (03:08)
[2022-11-10] MEDS ORDERED: diphenhydrAMINE HCL 12.5 MG/5 ML UNIT-DOSE CUPS GT PRN (03:08)
[2022-11-10] MEDS ORDERED: PATIENT'S OWN MEDICATION (NON-FORMULARY) (Diazepam [Valtoco] 10 MG/0.1 ML Spray) NS PRN (03:08)
[2022-11-10] MEDS ORDERED: levETIRAcetam 500 MG/5 ML INJECTION VIAL IVPB ONE ×2 (03:30→04:07)
[2022-11-10 06:31] LABS: HEMOGLOBIN 11.2 GM/dL (10.7-15.3); MCH 33.1 pg (25.7-33.7); MCHC 35.1 g/dl (32.0-36.0); MEAN CELL VOLUME 94.4 fl (80-96); MEAN PLT VOLUME 8.2 fl (7.5-11.1); PLATELET COUNT 186 10^3/uL (134-434); RBC 3.39 M/mm3 (3.60-5.2); RDW 15.6 % (11.6-15.6); WHITE BLOOD COUNT 7.1 K/mm3 (4.0-10.0)
[2022-11-10 06:39] LABS: POTASSIUM 4.2 mmol/L (3.5-5.1)
[2022-11-10 06:41] LABS: CALCIUM 8.8 mg/dL (8.5-10.1)
[2022-11-10 06:42] LABS: ALBUMIN 3.4 g/dl (3.4-5.0); BLOOD UREA NITROGEN 21.1 mg/dL (7-18)
[2022-11-10 06:45] LABS: CREATININE 0.3 mg/dL (0.55-1.3)
[2022-11-10 06:47] LABS: BILIRUBIN,TOTAL 0.2 mg/dL (0.2-1); TOT PROT 6.9 g/dl (6.4-8.2)
[2022-11-10] MEDS ORDERED: NUTRITIONAL SUPPLEMENT GT SCH (07:00)
[2022-11-10] MEDS: BACLOFEN 10 MG TABLET (FP) GT SCH ×3 (08:00→23:43)
[2022-11-10 08:08] VITALS: BMI 27.0
[2022-11-10] MEDS: ALBUTEROL SO4 0.083% IH SOL 2.5 MG/3 ML VIAL.NEB. NEB SCH ×3 (09:00→20:07)
[2022-11-10] MEDS ORDERED: BACLOFEN 10 MG TABLET (FP) ONE (09:48)
[2022-11-10] MEDS ORDERED: MEROPENEM 1 GM VIAL (RESTRICTED TO ID) IVPB ONE (09:48)
[2022-11-10] MEDS ORDERED: ENOXAPARIN NA (PORCINE) 40 MG/0.4 ML DISP.SYRIN SQ ONE (09:49)
[2022-11-10] MEDS: SENNOSIDES/DOCUSATE COMBO (SENNA PLUS) TABLET (UD) PO SCH ×2 (10:00→23:44)
[2022-11-10] MEDS: SODIUM CHLORIDE 1 GM TABLET GT SCH ×2 (10:00→23:44)
[2022-11-10] MEDS: OXcarbazepine 300 MG/5 ML UNIT DOSE CUPS GT SCH ×2 (10:00→23:46)
[2022-11-10] MEDS: TOPIRAMATE 200 MG TABLET GT SCH (10:00)
[2022-11-10] MEDS: ENOXAPARIN NA (PORCINE) 40 MG/0.4 ML DISP.SYRIN SQ SCH (10:00)
[2022-11-10] MEDS ORDERED: ALBUTEROL SO4 0.083% IH SOL 2.5 MG/3 ML VIAL.NEB. NEB ONE (10:00)
[2022-11-10] MEDS: levETIRAcetam 500 MG/5 ML ORAL SOLUTION (UNIT-DOSE CUPS) GT SCH ×2 (10:00→23:44)
[2022-11-10] MEDS: MEROPENEM 1 GM in DEXTROSE 5%-WATER 100 ML IVPB SCH ×2 (10:16→17:31)
[2022-11-10] MEDS ORDERED: CHOLECALCIFEROL (VIT D SOLUTION) 400 UNIT/1 ML DROPS GT SCH (22:00)
[2022-11-11] MEDS ORDERED: MEROPENEM 1 GM VIAL (RESTRICTED TO ID) IVPB ONE (02:06)
[2022-11-11] MEDS: MEROPENEM 1 GM in DEXTROSE 5%-WATER 100 ML IVPB SCH ×2 (02:41→10:03)
[2022-11-11] MEDS: TOPIRAMATE 200 MG TABLET GT SCH ×3 (02:42→17:39)
[2022-11-11] MEDS: BACLOFEN 10 MG TABLET (FP) GT SCH ×3 (06:33→22:10)
[2022-11-11] MEDS: ALBUTEROL SO4 0.083% IH SOL 2.5 MG/3 ML VIAL.NEB. NEB SCH ×3 (07:25→19:42)
[2022-11-11 07:49] LABS: BASO % 0.3 % (0-2.0); EOS % 0.8 % (0-4.5); HEMATOCRIT 32.7 % (32.4-45.2); HEMOGLOBIN 11.4 GM/dL (10.7-15.3); LYMPH % 23.4 % (8-40); MCH 32.9 pg (25.7-33.7); MCHC 34.8 g/dl (32.0-36.0); MEAN CELL VOLUME 94.6 fl (80-96); MONO % 5.6 % (3.8-10.2); NEUT % 69.9 % (42.8-82.8); PLATELET COUNT 210 10^3/uL (134-434); RBC 3.45 M/mm3 (3.60-5.2); RDW 15.4 % (11.6-15.6); WHITE BLOOD COUNT 5.2 K/mm3 (4.0-10.0)
[2022-11-11 08:10] LABS: CALCIUM 8.9 mg/dL (8.5-10.1)
[2022-11-11 08:11] LABS: ALBUMIN 3.5 g/dl (3.4-5.0); BLOOD UREA NITROGEN 16.6 mg/dL (7-18)
[2022-11-11 08:14] LABS: CREATININE 0.4 mg/dL (0.55-1.3)
[2022-11-11 08:15] LABS: TOT PROT 7.2 g/dl (6.4-8.2)
[2022-11-11 08:16] LABS: BILIRUBIN,TOTAL 0.3 mg/dL (0.2-1)
[2022-11-11] MEDS: levETIRAcetam 500 MG/5 ML ORAL SOLUTION (UNIT-DOSE CUPS) GT SCH ×2 (09:23→22:09)
[2022-11-11] MEDS: ENOXAPARIN NA (PORCINE) 40 MG/0.4 ML DISP.SYRIN SQ SCH (09:24)
[2022-11-11] MEDS: SENNOSIDES/DOCUSATE COMBO (SENNA PLUS) TABLET (UD) PO SCH ×2 (09:25→22:10)
[2022-11-11] MEDS: SODIUM CHLORIDE 1 GM TABLET GT SCH ×2 (09:25→22:09)
[2022-11-11] MEDS: OXcarbazepine 300 MG/5 ML UNIT DOSE CUPS GT SCH ×2 (10:16→22:09)
[2022-11-11] MEDS ORDERED: CHOLECALCIFEROL (VIT D SOLUTION) 400 UNIT/1 ML DROPS GT SCH (18:00)
[2022-11-12] MEDS: BACLOFEN 10 MG TABLET (FP) GT SCH ×2 (06:19→14:02)
[2022-11-12] MEDS: TOPIRAMATE 200 MG TABLET GT SCH (06:19)
[2022-11-12] MEDS ORDERED: OXcarbazepine 300 MG/5 ML UNIT DOSE CUPS GT SCH (07:43)
[2022-11-12] MEDS ORDERED: TOPIRAMATE 100 MG TABLET GT SCH (07:43)
[2022-11-12 07:44] VITALS: PULSE 80; RESP 18; TEMP 98
[2022-11-12] MEDS: ALBUTEROL SO4 0.083% IH SOL 2.5 MG/3 ML VIAL.NEB. NEB SCH (07:56)
[2022-11-12] MEDS ORDERED: SENNOSIDES/DOCUSATE COMBO (SENNA PLUS) TABLET (UD) PO SCH ×2 (09:11→17:00)
[2022-11-12] MEDS: ENOXAPARIN NA (PORCINE) 40 MG/0.4 ML DISP.SYRIN SQ SCH (09:18)
[2022-11-12] MEDS: SODIUM CHLORIDE 1 GM TABLET GT SCH (09:18)
[2022-11-12] MEDS: levETIRAcetam 500 MG/5 ML ORAL SOLUTION (UNIT-DOSE CUPS) GT SCH (09:18)
[2022-11-12 09:57] LABS: BASO % 0.3 % (0-2.0); EOS % 1.1 % (0-4.5); HEMATOCRIT 32.2 % (32.4-45.2); MCH 32.5 pg (25.7-33.7); MCHC 34.3 g/dl (32.0-36.0); MEAN CELL VOLUME 94.9 fl (80-96); MEAN PLT VOLUME 7.6 fl (7.5-11.1); NEUT % 67.6 % (42.8-82.8); PLATELET COUNT 225 10^3/uL (134-434); RBC 3.39 M/mm3 (3.60-5.2); RDW 15.8 % (11.6-15.6); WHITE BLOOD COUNT 5.2 K/mm3 (4.0-10.0)
[2022-11-12] MEDS ORDERED: SENNOSIDES 8.8 MG/5 ML SYRUP GT SCH (10:00)
[2022-11-12] MEDS ORDERED: SENNOSIDES 8.8 MG/5 ML SYRUP PO SCH (10:00)
[2022-11-12 10:28] LABS: POTASSIUM 3.7 mmol/L (3.5-5.1)
[2022-11-12 10:37] LABS: CALCIUM 9.2 mg/dL (8.5-10.1)
[2022-11-12 10:38] LABS: ALBUMIN 3.2 g/dl (3.4-5.0); MAGNESIUM 1.8 mg/dL (1.8-2.4)
[2022-11-12 10:41] LABS: CREATININE 0.3 mg/dL (0.55-1.3)
[2022-11-12 10:43] LABS: BILIRUBIN,TOTAL 0.5 mg/dL (0.2-1)
[2022-11-12 10:45] LABS: TOT PROT 6.9 g/dl (6.4-8.2)
[2022-11-12 14:22] VITALS: BP 112/58
== END 2022-11-12 14:26 | disposition home or self-care (01) ==
LOC: JER 19:27 → JERBED 11-10 00:34 → J8W 11-10 14:20
PROVIDERS: ADMIT Internal Medicine; ATTEND Nurse Practitioner Acute Care
PROC: 3E0F7GC Introduction of Other Therapeutic Substance into Respiratory Tract, Via Natural or Artificial Opening (ICD-10-PCS; principal; 2022-11-10)
PROC: 3E03329 Introduction of Other Anti-infective into Peripheral Vein, Percutaneous Approach (ICD-10-PCS; 2022-11-10)
DX: J96.01 Acute respiratory failure with hypoxia (principal); G80.0 Spastic quadriplegic cerebral palsy; R53.2 Functional quadriplegia; R56.9 Unspecified convulsions; N39.0 Urinary tract infection, site not specified; H47.619 Cortical blindness, unspecified side of brain; Z93.1 Gastrostomy status; M85.80 Other specified disorders of bone density and structure, unspecified site; K21.9 Gastro-esophageal reflux disease without esophagitis; J45.909 Unspecified asthma, uncomplicated; M41.9 Scoliosis, unspecified; R00.1 Bradycardia, unspecified
CPT/HCPCS: 0241U-QW; 36415; 70450-TC; 71045-TC-FY; 76705-TC; 80053; 80177; 80183; 81003; 82550; 83735; 84100; 84484; 85025; 85027; 85610; 85730; 86850; 86900; 86901; 87040; 87086; 87186; 93005; 93010; 94640; 96365; 96372; 99285-25; G0378; J0475

== ENCOUNTER 2022-12-10 12:27 | Inpatient (IN) | payer OTHER ==
[2022-12-10] MEDS ORDERED: PIPERACILLIN/TAZOB 4.5 GM 4.5 GM in DEXTROSE 5%-WATER 100 ML IVPB ONE (13:18)
[2022-12-10] MEDS ORDERED: VANCOMYCIN 1 GM in D5W (PRE-DOCKED) 1,000 MG/250 ML (RESTRICTED TO ID ONLY IVPB ONE (13:18)
[2022-12-10] MEDS ORDERED: VANCOMYCIN 750 MG in DEXTROSE 5%-WATER - 100 ML IVPB ONE (13:22)
[2022-12-10 13:26] LABS: VENOUS BASE EXCESS -2.5 mmol/L (-2-2); VENOUS O2 SATURATION 89.9 % (70-80); VENOUS PCO2 41.9 mmHg (38-52); VENOUS PH 7.356 (7.310-7.410)
[2022-12-10] MEDS ORDERED: PIPERACILLIN/TAZOB 4.5 GM 4.5 GM/100 ML BAG IVPB ONE (13:29)
[2022-12-10] MEDS ORDERED: VANCOMYCIN/WATER FOR INJ (PEG) 1,000 MG/200 ML BAG IVPB ONE (13:29)
[2022-12-10] MEDS ORDERED: ACETYLCYSTEINE 20% 200MG/ML 30 ML VIAL *FOR ORAL / INH USE ONLY NEB ONE (13:35)
[2022-12-10] MEDS ORDERED: SODIUM CHLORIDE FOR INHALATION 3 ML VIAL.NEB IH ONE (13:35)
[2022-12-10] MEDS ORDERED: ACETYLCYSTEINE 20% 200MG/ML 4 ML VIAL *FOR ORAL / INH USE ONLY ONE (13:48)
[2022-12-10 14:04] LABS: HEMOGLOBIN 11.4 GM/dL (10.7-15.3); MCH 31.3 pg (25.7-33.7); MCHC 32.6 g/dl (32.0-36.0); MEAN CELL VOLUME 96.3 fl (80-96); MEAN PLT VOLUME 7.7 fl (7.5-11.1); PLATELET COUNT 247 10^3/uL (134-434); RBC 3.63 M/mm3 (3.60-5.2); RDW 15.6 % (11.6-15.6); WHITE BLOOD COUNT 9.2 K/mm3 (4.0-10.0)
[2022-12-10 14:44] LABS: ALBUMIN 3.6 g/dl (3.4-5.0); BLOOD UREA NITROGEN 18.9 mg/dL (7-18); CALCIUM 8.7 mg/dL (8.5-10.1)
[2022-12-10 14:46] LABS: ANISOCYTOSIS 0; HELMET CELLS 0; HOWELL-JOLLY BODIES 0; MACROCYTOSIS 0; OVALOCYTE 0; ROULEAU 0; SICKELED CELLS 0; TARGET CELLS 0; TEAR DROP CELLS 0; TOXIC GRANULATION 0
[2022-12-10 14:48] LABS: CREATININE 0.4 mg/dL (0.55-1.3)
[2022-12-10 14:49] LABS: BILIRUBIN,TOTAL 0.2 mg/dL (0.2-1)
[2022-12-10 14:50] LABS: TOT PROT 7.2 g/dl (6.4-8.2)
[2022-12-10 15:00] LABS: INR 0.99 (0.83-1.09); PROTHROMBIN TIME (PATIENT) 11.5 SEC (9.7-13.0)
[2022-12-10 15:03] LABS: ACTIVATED PTT 34.6 SECONDS (25.2-36.5)
[2022-12-10 15:58] LABS: EPI CELLS 20 /uL (0-25.1); HYALINE CASTS 1 /uL (0-3.1); PH,URINE 8.5 (5.0-8.0); URINE APPEARANCE CLOUDY; URINE BACTERIA 5995 /uL (0-1359); URINE BILIRUBIN NEGATIVE (NEGATIVE); URINE COLOR YELLOW; URINE GLUCOSE (UA) NEGATIVE (NEGATIVE); URINE KETONE NEGATIVE (NEGATIVE); URINE LEUK ESTERASE 1+ (NEGATIVE); URINE NITRITE POSITIVE (NEGATIVE); URINE PROTEIN NEGATIVE (NEGATIVE); URINE RBC 12 /uL (0-23.9); URINE UROBILINOGEN 0.2 mg/dL (0.2-1.0); URINE WBC 11 /uL (0-25.8)
[2022-12-10] MEDS ORDERED: ACETAMINOPHEN 1000 MG/100 ML BAG IVPB ONE (16:20)
[2022-12-10] MEDS ORDERED: ACETAMINOPHEN INJECTION 100 ML IVPB ONE (16:42)
[2022-12-10 18:41] VITALS: BMI 30.8
[2022-12-10] MEDS ORDERED: SODIUM CHLORIDE NASAL SPRAY 44 ML BOTTLE NS PRN (19:07)
[2022-12-10] MEDS ORDERED: BISACODYL 10 MG SUPP.RECT RC PRN (19:07)
[2022-12-10] MEDS ORDERED: ALBUTEROL SO4 0.083% IH SOL 2.5 MG/3 ML VIAL.NEB. NEB PRN (19:07)
[2022-12-10] MEDS ORDERED: DIPHENHYDRAMINE HCL 25 MG/10 ML CUP GT PRN (19:07)
[2022-12-10] MEDS ORDERED: guaiFENesin 200 MG/10 ML 10 ML UNIT-DOSE CUPS GT PRN (19:07)
[2022-12-10] MEDS ORDERED: SODIUM PHOSPHATE/NA BIPHOS 133 ML ENEMA RC PRN (19:07)
[2022-12-10] MEDS ORDERED: ACETAMINOPHEN 650 MG/20.3 ML ORAL SOLUTION (CUPS) GT PRN (19:07)
[2022-12-10] MEDS ORDERED: NAPHAZOLINE/PHENIRAMINE OPHTHALMIC 15 ML BOTTLE OU PRN (19:07)
[2022-12-10] MEDS ORDERED: SIMETHICONE 40 MG/0.6 ML BOTTLE GT PRN (19:07)
[2022-12-10] MEDS ORDERED: NUTRITIONAL SUPPLEMENT GT SCH (22:00)
[2022-12-10] MEDS: BACLOFEN 10 MG TABLET (FP) GT SCH (22:45)
[2022-12-10] MEDS: OXcarbazepine 300 MG/5 ML UNIT DOSE CUPS GT SCH (22:45)
[2022-12-10] MEDS: levETIRAcetam 500 MG/5 ML ORAL SOLUTION (UNIT-DOSE CUPS) GT SCH (22:45)
[2022-12-10] MEDS ORDERED: diphenhydrAMINE HCL 12.5 MG/5 ML UNIT-DOSE CUPS GT PRN (23:10)
[2022-12-11] MEDS ORDERED: PIPERACILLIN/TAZOBACTAM 3.375 GM VIAL IVPB ONE (01:34)
[2022-12-11] MEDS ORDERED: PIPERACILLIN/TAZOB 3.375 GM 3.375 GM in DEXTROSE 5%-WATER - 50 ML IVPB SCH (02:00)
[2022-12-11] MEDS: SENNOSIDES/DOCUSATE COMBO (SENNA PLUS) TABLET (UD) PO SCH ×2 (06:55→18:41)
[2022-12-11] MEDS: BACLOFEN 10 MG TABLET (FP) GT SCH ×3 (06:55→22:36)
[2022-12-11] MEDS: TOPIRAMATE 100 MG TABLET GT SCH ×2 (06:56→18:41)
[2022-12-11 07:54] LABS: HEMATOCRIT 31.8 % (32.4-45.2); HEMOGLOBIN 10.6 GM/dL (10.7-15.3); MCH 32.1 pg (25.7-33.7); MCHC 33.3 g/dl (32.0-36.0); MEAN CELL VOLUME 96.5 fl (80-96); PLATELET COUNT 225 10^3/uL (134-434); RBC 3.29 M/mm3 (3.60-5.2); RDW 15.9 % (11.6-15.6); WHITE BLOOD COUNT 6.4 K/mm3 (4.0-10.0)
[2022-12-11] MEDS ORDERED: PATIENT'S OWN MEDICATION (NON-FORMULARY) (Diazepam [Valtoco] 10 MG/0.1 ML Spray) NS PRN (08:05)
[2022-12-11 08:10] LABS: POTASSIUM 3.9 mmol/L (3.5-5.1)
[2022-12-11 08:12] LABS: ALBUMIN 3.3 g/dl (3.4-5.0); BLOOD UREA NITROGEN 16.8 mg/dL (7-18); CALCIUM 9.5 mg/dL (8.5-10.1)
[2022-12-11 08:16] LABS: CREATININE 0.5 mg/dL (0.55-1.3); PHOSPHOROUS 3.8 mg/dL (2.5-4.9)
[2022-12-11 08:17] LABS: BILIRUBIN,TOTAL 0.5 mg/dL (0.2-1); TOT PROT 6.8 g/dl (6.4-8.2)
[2022-12-11 09:31] LABS: ANISOCYTOSIS 0; MACROCYTOSIS 1+
[2022-12-11] MEDS ORDERED: [UNRECOGNIZED DRUG - REMARK] GT SCH (10:00)
[2022-12-11] MEDS: levETIRAcetam 500 MG/5 ML ORAL SOLUTION (UNIT-DOSE CUPS) GT SCH ×2 (10:12→22:36)
[2022-12-11] MEDS: ENOXAPARIN NA (PORCINE) 30 MG/0.3 ML DISP.SYRIN SQ SCH (10:12)
[2022-12-11] MEDS: PIPERACILLIN/TAZOB 3.375 GM 3.375 GM in DEXTROSE 5%-WATER - 50 ML IVPB SCH ×2 (10:13→18:41)
[2022-12-11] MEDS: OXcarbazepine 300 MG/5 ML UNIT DOSE CUPS GT SCH ×2 (10:13→22:39)
[2022-12-11] MEDS ORDERED: LORazepam 2 MG/ML SDV VIAL IVPUSH PRN (16:19)
[2022-12-12] MEDS: PIPERACILLIN/TAZOB 3.375 GM 3.375 GM in DEXTROSE 5%-WATER - 50 ML IVPB SCH ×3 (01:15→17:00)
[2022-12-12] MEDS: BACLOFEN 10 MG TABLET (FP) GT SCH ×3 (05:43→21:39)
[2022-12-12] MEDS: TOPIRAMATE 100 MG TABLET GT SCH ×2 (05:43→17:01)
[2022-12-12] MEDS: SENNOSIDES/DOCUSATE COMBO (SENNA PLUS) TABLET (UD) PO SCH ×2 (05:44→17:00)
[2022-12-12] MEDS: ENOXAPARIN NA (PORCINE) 30 MG/0.3 ML DISP.SYRIN SQ SCH (09:36)
[2022-12-12] MEDS: levETIRAcetam 500 MG/5 ML ORAL SOLUTION (UNIT-DOSE CUPS) GT SCH ×2 (09:36→21:40)
[2022-12-12] MEDS: OXcarbazepine 300 MG/5 ML UNIT DOSE CUPS GT SCH ×2 (09:37→21:42)
[2022-12-12] MEDS ORDERED: BACITRACIN ZINC 15 GM TUBE TOPICAL OINTMENT TP PRN (13:36)
[2022-12-13] MEDS: PIPERACILLIN/TAZOB 3.375 GM 3.375 GM in DEXTROSE 5%-WATER - 50 ML IVPB SCH ×3 (01:05→17:32)
[2022-12-13] MEDS: TOPIRAMATE 100 MG TABLET GT SCH ×2 (04:59→17:32)
[2022-12-13] MEDS: SENNOSIDES/DOCUSATE COMBO (SENNA PLUS) TABLET (UD) PO SCH ×2 (05:47→17:32)
[2022-12-13] MEDS: BACLOFEN 10 MG TABLET (FP) GT SCH ×3 (05:48→22:58)
[2022-12-13 08:17] LABS: BASO % 0.5 % (0-2.0); EOS % 1.8 % (0-4.5); HEMATOCRIT 28.4 % (32.4-45.2); HEMOGLOBIN 9.7 GM/dL (10.7-15.3); LYMPH % 40.4 % (8-40); MCH 32.7 pg (25.7-33.7); MCHC 34.1 g/dl (32.0-36.0); MEAN CELL VOLUME 96.1 fl (80-96); MEAN PLT VOLUME 8.4 fl (7.5-11.1); MONO % 7.9 % (3.8-10.2); NEUT % 49.4 % (42.8-82.8); PLATELET COUNT 193 10^3/uL (134-434); RBC 2.96 M/mm3 (3.60-5.2); RDW 15.8 % (11.6-15.6); WHITE BLOOD COUNT 2.9 K/mm3 (4.0-10.0)
[2022-12-13 08:29] LABS: POTASSIUM 3.9 mmol/L (3.5-5.1)
[2022-12-13 08:33] LABS: ALBUMIN 2.9 g/dl (3.4-5.0); CALCIUM 8.6 mg/dL (8.5-10.1)
[2022-12-13 08:34] LABS: BLOOD UREA NITROGEN 12.9 mg/dL (7-18); MAGNESIUM 1.8 mg/dL (1.8-2.4)
[2022-12-13 08:35] LABS: CREATININE 0.4 mg/dL (0.55-1.3)
[2022-12-13 08:37] LABS: BILIRUBIN,TOTAL 0.3 mg/dL (0.2-1); PHOSPHOROUS 4.3 mg/dL (2.5-4.9); TOT PROT 6.4 g/dl (6.4-8.2)
[2022-12-13] MEDS: ENOXAPARIN NA (PORCINE) 30 MG/0.3 ML DISP.SYRIN SQ SCH (10:40)
[2022-12-13] MEDS: levETIRAcetam 500 MG/5 ML ORAL SOLUTION (UNIT-DOSE CUPS) GT SCH ×2 (10:40→22:55)
[2022-12-13] MEDS: OXcarbazepine 300 MG/5 ML UNIT DOSE CUPS GT SCH ×2 (10:40→22:58)
[2022-12-14] MEDS: PIPERACILLIN/TAZOB 3.375 GM 3.375 GM in DEXTROSE 5%-WATER - 50 ML IVPB SCH ×3 (02:52→17:14)
[2022-12-14] MEDS ORDERED: SODIUM CHLORIDE NASAL SPRAY 44 ML BOTTLE NS PRN (07:22)
[2022-12-14] MEDS ORDERED: LORazepam 2 MG/ML SDV VIAL IVPUSH PRN (07:22)
[2022-12-14] MEDS ORDERED: BISACODYL 10 MG SUPP.RECT RC PRN (07:22)
[2022-12-14] MEDS ORDERED: diphenhydrAMINE HCL 12.5 MG/5 ML UNIT-DOSE CUPS GT PRN (07:22)
[2022-12-14] MEDS ORDERED: guaiFENesin 200 MG/10 ML 10 ML UNIT-DOSE CUPS GT PRN (07:22)
[2022-12-14] MEDS ORDERED: NAPHAZOLINE/PHENIRAMINE OPHTHALMIC 15 ML BOTTLE OU PRN (07:22)
[2022-12-14] MEDS ORDERED: ACETAMINOPHEN 650 MG/20.3 ML ORAL SOLUTION (CUPS) GT PRN (07:22)
[2022-12-14] MEDS ORDERED: ALBUTEROL SO4 0.083% IH SOL 2.5 MG/3 ML VIAL.NEB. NEB PRN (07:22)
[2022-12-14] MEDS: TOPIRAMATE 100 MG TABLET GT SCH ×3 (07:34→17:17)
[2022-12-14] MEDS: SENNOSIDES 8.8 MG/5 ML SYRUP GT SCH ×2 (07:35→16:52)
[2022-12-14] MEDS: DOCUSATE NA 100 MG/10 ML UNIT-DOSE CUPS GT SCH ×2 (07:35→16:51)
[2022-12-14] MEDS: BACLOFEN 10 MG TABLET (FP) GT SCH ×3 (07:36→23:04)
[2022-12-14] MEDS: SENNOSIDES/DOCUSATE COMBO (SENNA PLUS) TABLET (UD) PO SCH (07:36)
[2022-12-14] MEDS: MINERAL OIL ENEMA 133 ML ENEMA RC SCH (08:22)
[2022-12-14] MEDS: ENOXAPARIN NA (PORCINE) 30 MG/0.3 ML DISP.SYRIN SQ SCH (10:18)
[2022-12-14] MEDS: levETIRAcetam 500 MG/5 ML ORAL SOLUTION (UNIT-DOSE CUPS) GT SCH ×2 (10:29→23:04)
[2022-12-14] MEDS: guaiFENesin 200 MG/10 ML 10 ML UNIT-DOSE CUPS GT PRN (10:29)
[2022-12-14] MEDS: OXcarbazepine 300 MG/5 ML UNIT DOSE CUPS GT SCH ×2 (10:30→23:04)
[2022-12-14] MEDS: SIMETHICONE 40 MG/0.6 ML BOTTLE GT PRN (10:32)
[2022-12-14] MEDS ORDERED: BACLOFEN 10 MG TABLET (FP) GT SCH ×2 (14:00)
[2022-12-14] MEDS ORDERED: SENNOSIDES/DOCUSATE COMBO (SENNA PLUS) TABLET (UD) PO SCH (17:00)
[2022-12-14] MEDS: ALBUTEROL SO4 0.083% IH SOL 2.5 MG/3 ML VIAL.NEB. NEB PRN (17:47)
[2022-12-15] MEDS: PIPERACILLIN/TAZOB 3.375 GM 3.375 GM in DEXTROSE 5%-WATER - 50 ML IVPB SCH ×3 (03:40→18:08)
[2022-12-15] MEDS: TOPIRAMATE 100 MG TABLET GT SCH ×2 (06:35→18:14)
[2022-12-15] MEDS: BACLOFEN 10 MG TABLET (FP) GT SCH ×3 (06:37→22:14)
[2022-12-15] MEDS: DOCUSATE NA 100 MG/10 ML UNIT-DOSE CUPS GT SCH ×2 (06:39→17:11)
[2022-12-15] MEDS: SENNOSIDES 8.8 MG/5 ML SYRUP GT SCH ×2 (06:39→17:11)
[2022-12-15] MEDS: ALBUTEROL SO4 0.083% IH SOL 2.5 MG/3 ML VIAL.NEB. NEB PRN (07:58)
[2022-12-15 09:31] LABS: BASO % 0.4 % (0-2.0); EOS % 1.3 % (0-4.5); HEMATOCRIT 31.1 % (32.4-45.2); HEMOGLOBIN 10.4 GM/dL (10.7-15.3); LYMPH % 53.3 % (8-40); MCHC 33.4 g/dl (32.0-36.0); MEAN CELL VOLUME 95.8 fl (80-96); MEAN PLT VOLUME 8.1 fl (7.5-11.1); MONO % 7.3 % (3.8-10.2); NEUT % 37.7 % (42.8-82.8); PLATELET COUNT 208 10^3/uL (134-434); RBC 3.25 M/mm3 (3.60-5.2); RDW 15.4 % (11.6-15.6); WHITE BLOOD COUNT 2.8 K/mm3 (4.0-10.0)
[2022-12-15 09:45] LABS: ALBUMIN 3.1 g/dl (3.4-5.0); BLOOD UREA NITROGEN 13.1 mg/dL (7-18); CALCIUM 9.2 mg/dL (8.5-10.1); MAGNESIUM 2.1 mg/dL (1.8-2.4)
[2022-12-15 09:48] LABS: CREATININE 0.4 mg/dL (0.55-1.3)
[2022-12-15 09:50] LABS: BILIRUBIN,TOTAL 0.5 mg/dL (0.2-1); TOT PROT 6.8 g/dl (6.4-8.2)
[2022-12-15] MEDS: ENOXAPARIN NA (PORCINE) 30 MG/0.3 ML DISP.SYRIN SQ SCH (10:07)
[2022-12-15] MEDS: levETIRAcetam 500 MG/5 ML ORAL SOLUTION (UNIT-DOSE CUPS) GT SCH ×2 (10:08→22:14)
[2022-12-15] MEDS: guaiFENesin 200 MG/10 ML 10 ML UNIT-DOSE CUPS GT PRN (10:08)
[2022-12-15] MEDS: OXcarbazepine 300 MG/5 ML UNIT DOSE CUPS GT SCH ×2 (10:08→22:14)
[2022-12-15] MEDS: SIMETHICONE 40 MG/0.6 ML BOTTLE GT PRN (10:09)
[2022-12-16] MEDS: PIPERACILLIN/TAZOB 3.375 GM 3.375 GM in DEXTROSE 5%-WATER - 50 ML IVPB SCH ×3 (01:48→18:01)
[2022-12-16] MEDS: TOPIRAMATE 100 MG TABLET GT SCH ×2 (05:48→18:02)
[2022-12-16] MEDS: SENNOSIDES 8.8 MG/5 ML SYRUP GT SCH ×2 (05:48→18:03)
[2022-12-16] MEDS: DOCUSATE NA 100 MG/10 ML UNIT-DOSE CUPS GT SCH ×2 (05:48→18:03)
[2022-12-16] MEDS: BACLOFEN 10 MG TABLET (FP) GT SCH ×3 (05:50→22:40)
[2022-12-16 09:08] LABS: BASO % 0.3 % (0-2.0); EOS % 1.3 % (0-4.5); HEMATOCRIT 30.4 % (32.4-45.2); HEMOGLOBIN 10.1 GM/dL (10.7-15.3); LYMPH % 48.9 % (8-40); MCH 31.7 pg (25.7-33.7); MEAN CELL VOLUME 95.8 fl (80-96); MONO % 8.3 % (3.8-10.2); NEUT % 41.2 % (42.8-82.8); PLATELET COUNT 201 10^3/uL (134-434); RBC 3.18 M/mm3 (3.60-5.2); RDW 15.5 % (11.6-15.6); WHITE BLOOD COUNT 3.1 K/mm3 (4.0-10.0)
[2022-12-16 09:14] LABS: POTASSIUM 4.2 mmol/L (3.5-5.1)
[2022-12-16 09:22] LABS: BLOOD UREA NITROGEN 15.9 mg/dL (7-18); CALCIUM 8.9 mg/dL (8.5-10.1); MAGNESIUM 2.1 mg/dL (1.8-2.4)
[2022-12-16 09:25] LABS: CREATININE 0.4 mg/dL (0.55-1.3)
[2022-12-16 09:27] LABS: BILIRUBIN,TOTAL 0.5 mg/dL (0.2-1); TOT PROT 6.4 g/dl (6.4-8.2)
[2022-12-16] MEDS: OXcarbazepine 300 MG/5 ML UNIT DOSE CUPS GT SCH ×2 (10:13→22:37)
[2022-12-16] MEDS: levETIRAcetam 500 MG/5 ML ORAL SOLUTION (UNIT-DOSE CUPS) GT SCH ×2 (10:13→22:36)
[2022-12-16] MEDS: ENOXAPARIN NA (PORCINE) 30 MG/0.3 ML DISP.SYRIN SQ SCH (10:14)
[2022-12-16] MEDS: MINERAL OIL ENEMA 133 ML ENEMA RC SCH (10:16)
[2022-12-16] MEDS: ALBUTEROL SO4 2.5/IPRATROPIUM 0.5 INH SOL 3 ML VIAL.NEB. NEB SCH ×3 (12:50→20:50)
[2022-12-17] MEDS: PIPERACILLIN/TAZOB 3.375 GM 3.375 GM in DEXTROSE 5%-WATER - 50 ML IVPB SCH ×3 (01:35→17:51)
[2022-12-17] MEDS: DOCUSATE NA 100 MG/10 ML UNIT-DOSE CUPS GT SCH ×2 (05:04→17:52)
[2022-12-17] MEDS: SENNOSIDES 8.8 MG/5 ML SYRUP GT SCH ×2 (05:05→17:52)
[2022-12-17] MEDS: TOPIRAMATE 100 MG TABLET GT SCH ×2 (05:05→17:52)
[2022-12-17] MEDS: BACLOFEN 10 MG TABLET (FP) GT SCH ×3 (05:07→21:55)
[2022-12-17] MEDS: ALBUTEROL SO4 2.5/IPRATROPIUM 0.5 INH SOL 3 ML VIAL.NEB. NEB SCH ×4 (07:32→19:18)
[2022-12-17 08:39] LABS: BASO % 0.4 % (0-2.0); EOS % 1.4 % (0-4.5); HEMATOCRIT 30.6 % (32.4-45.2); HEMOGLOBIN 10.1 GM/dL (10.7-15.3); LYMPH % 50.2 % (8-40); MCH 31.2 pg (25.7-33.7); MCHC 32.9 g/dl (32.0-36.0); MEAN CELL VOLUME 94.8 fl (80-96); MEAN PLT VOLUME 7.7 fl (7.5-11.1); PLATELET COUNT 219 10^3/uL (134-434); RBC 3.23 M/mm3 (3.60-5.2); RDW 15.5 % (11.6-15.6); WHITE BLOOD COUNT 3.7 K/mm3 (4.0-10.0)
[2022-12-17 09:00] LABS: POTASSIUM 4.6 mmol/L (3.5-5.1)
[2022-12-17 09:06] LABS: CALCIUM 8.8 mg/dL (8.5-10.1)
[2022-12-17 09:07] LABS: BLOOD UREA NITROGEN 17.8 mg/dL (7-18)
[2022-12-17 09:10] LABS: CREATININE 0.4 mg/dL (0.55-1.3)
[2022-12-17 09:11] LABS: BILIRUBIN,TOTAL 0.3 mg/dL (0.2-1); TOT PROT 6.4 g/dl (6.4-8.2)
[2022-12-17] MEDS: ENOXAPARIN NA (PORCINE) 30 MG/0.3 ML DISP.SYRIN SQ SCH (09:45)
[2022-12-17] MEDS: levETIRAcetam 500 MG/5 ML ORAL SOLUTION (UNIT-DOSE CUPS) GT SCH ×2 (09:45→21:45)
[2022-12-17] MEDS: OXcarbazepine 300 MG/5 ML UNIT DOSE CUPS GT SCH ×2 (09:49→21:46)
[2022-12-17] MEDS: MINERAL OIL/PET HY-PHL TOPICAL OINTMENT 454 GM JAR TP SCH (10:26)
[2022-12-18] MEDS: PIPERACILLIN/TAZOB 3.375 GM 3.375 GM in DEXTROSE 5%-WATER - 50 ML IVPB SCH ×3 (01:41→17:29)
[2022-12-18] MEDS: TOPIRAMATE 100 MG TABLET GT SCH ×2 (05:24→17:30)
[2022-12-18] MEDS: SENNOSIDES 8.8 MG/5 ML SYRUP GT SCH ×2 (05:24→16:35)
[2022-12-18] MEDS: BACLOFEN 10 MG TABLET (FP) GT SCH ×3 (05:25→22:45)
[2022-12-18] MEDS: DOCUSATE NA 100 MG/10 ML UNIT-DOSE CUPS GT SCH ×2 (05:25→16:35)
[2022-12-18] MEDS: ALBUTEROL SO4 2.5/IPRATROPIUM 0.5 INH SOL 3 ML VIAL.NEB. NEB SCH ×4 (08:00→19:55)
[2022-12-18 08:32] LABS: POTASSIUM 4.4 mmol/L (3.5-5.1)
[2022-12-18 08:36] LABS: BASO % 0.3 % (0-2.0); EOS % 1.3 % (0-4.5); HEMATOCRIT 31.1 % (32.4-45.2); HEMOGLOBIN 10.4 GM/dL (10.7-15.3); MCH 31.9 pg (25.7-33.7); MCHC 33.4 g/dl (32.0-36.0); MEAN CELL VOLUME 95.6 fl (80-96); MONO % 10.7 % (3.8-10.2); NEUT % 40.7 % (42.8-82.8); PLATELET COUNT 242 10^3/uL (134-434); RBC 3.26 M/mm3 (3.60-5.2); RDW 15.1 % (11.6-15.6)
[2022-12-18 08:37] LABS: BLOOD UREA NITROGEN 16.4 mg/dL (7-18); CALCIUM 8.7 mg/dL (8.5-10.1); MAGNESIUM 1.9 mg/dL (1.8-2.4)
[2022-12-18 08:40] LABS: CREATININE 0.4 mg/dL (0.55-1.3)
[2022-12-18 08:41] LABS: BILIRUBIN,TOTAL 0.4 mg/dL (0.2-1); TOT PROT 6.7 g/dl (6.4-8.2)
[2022-12-18] MEDS: ENOXAPARIN NA (PORCINE) 30 MG/0.3 ML DISP.SYRIN SQ SCH (10:38)
[2022-12-18] MEDS: levETIRAcetam 500 MG/5 ML ORAL SOLUTION (UNIT-DOSE CUPS) GT SCH ×2 (10:38→22:44)
[2022-12-18] MEDS: OXcarbazepine 300 MG/5 ML UNIT DOSE CUPS GT SCH ×2 (10:43→22:48)
[2022-12-18] MEDS: MINERAL OIL/PET HY-PHL TOPICAL OINTMENT 454 GM JAR TP SCH (10:47)
[2022-12-19] MEDS: TOPIRAMATE 100 MG TABLET GT SCH ×2 (05:03→17:33)
[2022-12-19] MEDS: SENNOSIDES 8.8 MG/5 ML SYRUP GT SCH ×2 (05:03→17:50)
[2022-12-19] MEDS: BACLOFEN 10 MG TABLET (FP) GT SCH ×3 (05:06→21:41)
[2022-12-19] MEDS: DOCUSATE NA 100 MG/10 ML UNIT-DOSE CUPS GT SCH ×2 (05:06→17:33)
[2022-12-19] MEDS: ALBUTEROL SO4 2.5/IPRATROPIUM 0.5 INH SOL 3 ML VIAL.NEB. NEB SCH ×4 (07:10→19:40)
[2022-12-19 08:43] LABS: BASO % 0.5 % (0-2.0); EOS % 1.7 % (0-4.5); HEMATOCRIT 33.3 % (32.4-45.2); LYMPH % 53.5 % (8-40); MCH 31.8 pg (25.7-33.7); MCHC 33.1 g/dl (32.0-36.0); MEAN PLT VOLUME 7.8 fl (7.5-11.1); MONO % 11.5 % (3.8-10.2); NEUT % 32.8 % (42.8-82.8); PLATELET COUNT 271 10^3/uL (134-434); RBC 3.46 M/mm3 (3.60-5.2); RDW 15.5 % (11.6-15.6); WHITE BLOOD COUNT 3.1 K/mm3 (4.0-10.0)
[2022-12-19 08:58] LABS: POTASSIUM 4.4 mmol/L (3.5-5.1)
[2022-12-19 09:24] LABS: ALBUMIN 3.4 g/dl (3.4-5.0); CALCIUM 9.4 mg/dL (8.5-10.1)
[2022-12-19 09:25] LABS: BLOOD UREA NITROGEN 19.5 mg/dL (7-18); MAGNESIUM 2.1 mg/dL (1.8-2.4)
[2022-12-19 09:27] LABS: CREATININE 0.4 mg/dL (0.55-1.3)
[2022-12-19 09:29] LABS: BILIRUBIN,TOTAL 0.3 mg/dL (0.2-1)
[2022-12-19] MEDS: OXcarbazepine 300 MG/5 ML UNIT DOSE CUPS GT SCH ×2 (11:01→21:41)
[2022-12-19] MEDS: ENOXAPARIN NA (PORCINE) 30 MG/0.3 ML DISP.SYRIN SQ SCH (11:02)
[2022-12-19] MEDS: MINERAL OIL/PET HY-PHL TOPICAL OINTMENT 454 GM JAR TP SCH (11:02)
[2022-12-19] MEDS: MINERAL OIL ENEMA 133 ML ENEMA RC SCH (11:06)
[2022-12-19] MEDS: levETIRAcetam 500 MG/5 ML ORAL SOLUTION (UNIT-DOSE CUPS) GT SCH ×2 (12:30→21:41)
[2022-12-19] MEDS ORDERED: SENNOSIDES 8.8 MG/5 ML BULK BOTTLE GT SCH (17:46)
[2022-12-19 23:01] VITALS: RESP 18
[2022-12-20] MEDS: DOCUSATE NA 100 MG/10 ML UNIT-DOSE CUPS GT SCH (05:24)
[2022-12-20] MEDS: TOPIRAMATE 100 MG TABLET GT SCH (05:24)
[2022-12-20] MEDS: BACLOFEN 10 MG TABLET (FP) GT SCH (05:25)
[2022-12-20] MEDS: ALBUTEROL SO4 2.5/IPRATROPIUM 0.5 INH SOL 3 ML VIAL.NEB. NEB SCH ×3 (07:15→15:02)
[2022-12-20 09:04] LABS: BASO % 0.2 % (0-2.0); HEMATOCRIT 33.6 % (32.4-45.2); HEMOGLOBIN 11.2 GM/dL (10.7-15.3); LYMPH % 28.5 % (8-40); MCH 31.1 pg (25.7-33.7); MCHC 33.4 g/dl (32.0-36.0); MEAN CELL VOLUME 93.2 fl (80-96); MEAN PLT VOLUME 7.5 fl (7.5-11.1); MONO % 6.1 % (3.8-10.2); NEUT % 64.2 % (42.8-82.8); PLATELET COUNT 302 10^3/uL (134-434); RBC 3.61 M/mm3 (3.60-5.2); RDW 15.2 % (11.6-15.6); WHITE BLOOD COUNT 4.7 K/mm3 (4.0-10.0)
[2022-12-20 09:33] LABS: POTASSIUM 4.3 mmol/L (3.5-5.1)
[2022-12-20 09:38] LABS: ALBUMIN 3.4 g/dl (3.4-5.0); BLOOD UREA NITROGEN 19.1 mg/dL (7-18)
[2022-12-20 09:40] LABS: CREATININE 0.4 mg/dL (0.55-1.3)
[2022-12-20 09:43] LABS: BILIRUBIN,TOTAL 0.3 mg/dL (0.2-1)
[2022-12-20] MEDS: ENOXAPARIN NA (PORCINE) 30 MG/0.3 ML DISP.SYRIN SQ SCH (10:06)
[2022-12-20] MEDS: levETIRAcetam 500 MG/5 ML ORAL SOLUTION (UNIT-DOSE CUPS) GT SCH (10:06)
[2022-12-20] MEDS: MINERAL OIL/PET HY-PHL TOPICAL OINTMENT 454 GM JAR TP SCH (10:07)
[2022-12-20] MEDS: OXcarbazepine 300 MG/5 ML UNIT DOSE CUPS GT SCH (10:07)
[2022-12-20 17:44] VITALS: BP 93/52; PULSE 70; TEMP 97.5
== END 2022-12-20 17:53 | DRG 177 ==
LOC: JER 12:27 → JERBED 14:51 → J4W 17:59 → J8W 12-13 12:31
PROVIDERS: ADMIT Internal Medicine; ATTEND Nurse Practitioner Family
DX: J69.0 Pneumonitis due to inhalation of food and vomit (principal); G80.0 Spastic quadriplegic cerebral palsy; J96.01 Acute respiratory failure with hypoxia; R53.2 Functional quadriplegia; G40.802 Other epilepsy, not intractable, without status epilepticus; Q67.5 Congenital deformity of spine; J45.901 Unspecified asthma with (acute) exacerbation; N39.0 Urinary tract infection, site not specified; F73 Profound intellectual disabilities; K21.9 Gastro-esophageal reflux disease without esophagitis; B96.4 Proteus (mirabilis) (morganii) as the cause of diseases classified elsewhere; M85.88 Other specified disorders of bone density and structure, other site; G47.33 Obstructive sleep apnea (adult) (pediatric); H47.619 Cortical blindness, unspecified side of brain; R74.01 Elevation of levels of liver transaminase levels; K76.0 Fatty (change of) liver, not elsewhere classified; B34.8 Other viral infections of unspecified site; T68.XXXA Hypothermia, initial encounter; I34.0 Nonrheumatic mitral (valve) insufficiency; Z93.1 Gastrostomy status
CPT/HCPCS: 0241U-QW; 36415; 71045-TC-FY; 76705-TC; 80053; 80177; 81003; 82550; 82553; 82803; 82977; 83605; 83735; 84100; 84484; 84703; 85025; 85610; 85730; 86850; 86900; 86901; 87040; 87081; 87086; 87186; 87633; 87635; 87899; 93005; 93010; 94640; 94761; 99285-25; J0475

== ENCOUNTER 2023-04-11 17:36 | Inpatient (IN) | payer OTHER ==
[2023-04-11] MEDS ORDERED: VANCOMYCIN 1,000 MG in DEXTROSE 5%-WATER - 250 ML IVPB ONE (20:18)
[2023-04-11] MEDS ORDERED: SODIUM CHLORIDE 0.9% 500 ML INFUS.BAG IV ONE (20:19)
[2023-04-11] MEDS ORDERED: PIPERACILLIN/TAZOB 3.375 GM 3.375 GM in DEXTROSE 5%-WATER - 50 ML IVPB ONE (20:19)
[2023-04-11 20:27] LABS: VENOUS BASE EXCESS -6.8 mmol/L (-2-2); VENOUS PCO2 36.6 mmHg (38-52); VENOUS PH 7.322 (7.310-7.410)
[2023-04-11 20:28] LABS: HEMATOCRIT 31.5 % (32.4-45.2); HEMOGLOBIN 11.1 GM/dL (10.7-15.3); MCH 32.6 pg (25.7-33.7); MCHC 35.2 g/dl (32.0-36.0); MEAN CELL VOLUME 92.8 fl (80-96); MEAN PLT VOLUME 7.8 fl (7.5-11.1); PLATELET COUNT 126 10^3/uL (134-434); RBC 3.39 M/mm3 (3.60-5.2); WHITE BLOOD COUNT 7.8 K/mm3 (4.0-10.0)
[2023-04-11 20:49] LABS: POTASSIUM 3.8 mmol/L (3.5-5.1)
[2023-04-11 20:52] LABS: MAGNESIUM 1.6 mg/dL (1.8-2.4)
[2023-04-11 20:53] LABS: ALBUMIN 3.5 g/dl (3.4-5.0); BLOOD UREA NITROGEN 11.4 mg/dL (7-18); CALCIUM 8.5 mg/dL (8.5-10.1)
[2023-04-11 20:56] LABS: CREATININE 0.3 mg/dL (0.55-1.3)
[2023-04-11 20:58] LABS: BILIRUBIN,TOTAL 0.3 mg/dL (0.2-1); TOT PROT 7.5 g/dl (6.4-8.2)
[2023-04-11] MEDS ORDERED: PIPERACILLIN/TAZOB 3.375 GM 3.375 GM/50 ML BAG IVPB ONE (21:01)
[2023-04-11 21:03] LABS: PH,URINE 7.5 (5.0-8.0); URINE APPEARANCE CLEAR; URINE BILIRUBIN NEGATIVE (NEGATIVE); URINE COLOR YELLOW; URINE GLUCOSE (UA) NEGATIVE (NEGATIVE); URINE KETONE NEGATIVE (NEGATIVE); URINE LEUK ESTERASE NEGATIVE (NEGATIVE); URINE NITRITE NEGATIVE (NEGATIVE); URINE PROTEIN NEGATIVE (NEGATIVE); URINE UROBILINOGEN 0.2 mg/dL (0.2-1.0)
[2023-04-11 21:20] LABS: ANISOCYTOSIS 2+; MACROCYTOSIS 0; TOXIC GRANULATION 1+
[2023-04-11] MEDS ORDERED: VANCOMYCIN 1 GRAM (PRE-DOCKED) 1,000 MG/250 ML BAG IVPB ONE (21:58)
[2023-04-11 22:20] LABS: N-TERMINAL BNP 358.4 pg/ml (5-125)
[2023-04-12] MEDS ORDERED: PATIENT'S OWN MEDICATION (NON-FORMULARY) (Diazepam [Valtoco] 10 MG/0.1 ML Spray) NS PRN (03:57)
[2023-04-12] MEDS ORDERED: CALCIUM CARB GT PRN (03:57)
[2023-04-12] MEDS ORDERED: ACETAMINOPHEN 160 MG/5 ML *Children Solution GT PRN (03:57)
[2023-04-12] MEDS ORDERED: BACITRACIN ZINC 15 GM TUBE TOPICAL OINTMENT TP PRN (03:57)
[2023-04-12] MEDS ORDERED: BISACODYL 10 MG SUPP.RECT RC PRN (03:57)
[2023-04-12] MEDS ORDERED: [UNRECOGNIZED DRUG - OTHER] GT PRN (03:57)
[2023-04-12] MEDS ORDERED: MAGNESIUM HYDROX GT PRN (03:57)
[2023-04-12] MEDS ORDERED: PATIENT'S OWN MEDICATION (NON-FORMULARY) (Lactose-Reduced Food/Fiber [Jevity 1 Cal Liquid] GT SCH (04:00)
[2023-04-12] MEDS ORDERED: ALBUTEROL SO4 0.083% IH SOL 2.5 MG/3 ML VIAL.NEB. NEB SCH (04:00)
[2023-04-12] MEDS ORDERED: MAGNESIUM SULF 50% (8.12 MEQ/2 ML-1 GM VIAL) IVPB ONE (04:09)
[2023-04-12] MEDS ORDERED: TOPIRAMATE 100 MG TABLET ONE (04:34)
[2023-04-12] MEDS ORDERED: ALBUTEROL SO4 0.083% IH SOL 2.5 MG/3 ML VIAL.NEB. NEB ONE (04:37)
[2023-04-12] MEDS ORDERED: FUROSEMIDE 40 MG/4 ML INJECTABLE VIAL ONE ×2 (04:37→14:59)
[2023-04-12] MEDS ORDERED: MAGNESIUM 1GM/D5W - 1 GM/100 ML IVPB IVPB ONE (04:37)
[2023-04-12] MEDS ORDERED: ALBUTEROL SO4 2.5/IPRATROPIUM 0.5 INH SOL 3 ML VIAL.NEB. NEB ONE ×4 (04:37→21:34)
[2023-04-12] MEDS: FUROSEMIDE 40 MG/4 ML INJECTABLE VIAL IVPUSH SCH ×2 (04:43→15:00)
[2023-04-12] MEDS: ALBUTEROL SO4 2.5/IPRATROPIUM 0.5 INH SOL 3 ML VIAL.NEB. NEB SCH ×4 (04:43→22:01)
[2023-04-12] MEDS: OXcarbazepine 300 MG/5 ML UNIT DOSE CUPS GT SCH ×3 (05:56→23:46)
[2023-04-12] MEDS: TOPIRAMATE 200 MG TABLET GT SCH ×2 (05:56→18:57)
[2023-04-12] MEDS: levETIRAcetam 500 MG/5 ML ORAL SOLUTION (UNIT-DOSE CUPS) GT SCH ×3 (05:56→23:45)
[2023-04-12] MEDS ORDERED: ALBUTEROL SO4 2.5/IPRATROPIUM 0.5 INH SOL 3 ML VIAL.NEB. NEB SCH (08:00)
[2023-04-12 08:54] LABS: HEMATOCRIT 33.8 % (32.4-45.2); HEMOGLOBIN 11.6 GM/dL (10.7-15.3); MCH 32.1 pg (25.7-33.7); MCHC 34.2 g/dl (32.0-36.0); MEAN CELL VOLUME 93.9 fl (80-96); MEAN PLT VOLUME 8.1 fl (7.5-11.1); PLATELET COUNT 132 10^3/uL (134-434); RDW 16.9 % (11.6-15.6); WHITE BLOOD COUNT 9.4 K/mm3 (4.0-10.0)
[2023-04-12 09:26] LABS: BILIRUBIN,TOTAL 0.2 mg/dL (0.2-1); BLOOD UREA NITROGEN 10.2 mg/dL (7-18)
[2023-04-12 09:28] LABS: ALBUMIN 3.2 g/dl (3.4-5.0)
[2023-04-12 09:29] LABS: CALCIUM 8.4 mg/dL (8.5-10.1); CREATININE 0.4 mg/dL (0.55-1.3); MAGNESIUM 2.1 mg/dL (1.8-2.4); PHOSPHOROUS 2.6 mg/dL (2.5-4.9)
[2023-04-12] MEDS ORDERED: SODIUM CHLORIDE NASAL SPRAY 44 ML BOTTLE NS PRN (10:00)
[2023-04-12] MEDS ORDERED: [UNRECOGNIZED DRUG - REMARK] GT SCH (10:00)
[2023-04-12] MEDS ORDERED: NUTRITIONAL SUPPLEMENT GT SCH (10:00)
[2023-04-12 10:33] LABS: INR 0.99 (0.83-1.09); PROTHROMBIN TIME (PATIENT) 11.5 SEC (9.7-13.0)
[2023-04-12 10:35] LABS: ACTIVATED PTT 32.1 SECONDS (25.2-36.5)
[2023-04-12] MEDS: SODIUM CHLORIDE 1 GM TABLET GT SCH ×2 (13:54→23:45)
[2023-04-12] MEDS ORDERED: PIPERACILLIN/TAZOB 3.375 GM 3.375 GM/50 ML BAG IVPB ONE ×2 (14:59→18:40)
[2023-04-12] MEDS: PIPERACILLIN/TAZOB 3.375 GM 3.375 GM in DEXTROSE 5%-WATER - 50 ML IVPB SCH ×2 (15:10→18:57)
[2023-04-12] MEDS ORDERED: SODIUM CHLORIDE 1,000 ML IV SCH (16:00)
[2023-04-12] MEDS ORDERED: DOXYCYCLINE HYCLATE 100 MG VIAL ONE (21:34)
[2023-04-12] MEDS: DOXYCYCLINE INJECTION 100 MG in DEXTROSE 5%-WATER 100 ML IVPB SCH (22:01)
[2023-04-13] MEDS: PIPERACILLIN/TAZOB 3.375 GM 3.375 GM in DEXTROSE 5%-WATER - 50 ML IVPB SCH ×3 (02:45→17:16)
[2023-04-13] MEDS: TOPIRAMATE 200 MG, TOPIRAMATE 100 MG GT SCH ×2 (05:57→17:16)
[2023-04-13] MEDS: TOPIRAMATE 200 MG TABLET GT SCH (05:59)
[2023-04-13 08:12] LABS: BASO % 0.2 % (0-2.0); EOS % 0.4 % (0-4.5); HEMATOCRIT 30.8 % (32.4-45.2); HEMOGLOBIN 10.9 GM/dL (10.7-15.3); LYMPH % 9.9 % (8-40); MCH 33.2 pg (25.7-33.7); MCHC 35.5 g/dl (32.0-36.0); MEAN CELL VOLUME 93.5 fl (80-96); MEAN PLT VOLUME 7.8 fl (7.5-11.1); MONO % 8.1 % (3.8-10.2); NEUT % 81.4 % (42.8-82.8); PLATELET COUNT 147 10^3/uL (134-434); RBC 3.29 M/mm3 (3.60-5.2); RDW 16.3 % (11.6-15.6)
[2023-04-13 08:27] LABS: POTASSIUM 3.4 mmol/L (3.5-5.1)
[2023-04-13 08:28] LABS: CALCIUM 8.7 mg/dL (8.5-10.1)
[2023-04-13 08:29] LABS: BLOOD UREA NITROGEN 9.3 mg/dL (7-18)
[2023-04-13] MEDS: ALBUTEROL SO4 2.5/IPRATROPIUM 0.5 INH SOL 3 ML VIAL.NEB. NEB SCH ×4 (08:30→20:19)
[2023-04-13 08:32] LABS: CREATININE 0.5 mg/dL (0.55-1.3)
[2023-04-13] MEDS ORDERED: POTASSIUM CHLORIDE ORAL LIQUID 20 MEQ/15 ML GT ONE (09:45)
[2023-04-13] MEDS ORDERED: TOPIRAMATE 200 MG, TOPIRAMATE 100 MG GT SCH (10:00)
[2023-04-13] MEDS: levETIRAcetam 500 MG/5 ML ORAL SOLUTION (UNIT-DOSE CUPS) GT SCH ×2 (11:30→21:07)
[2023-04-13] MEDS: OXcarbazepine 300 MG/5 ML UNIT DOSE CUPS GT SCH ×2 (11:31→21:09)
[2023-04-13] MEDS: SODIUM CHLORIDE 1 GM TABLET GT SCH ×2 (11:31→21:08)
[2023-04-13] MEDS: DOXYCYCLINE INJECTION 100 MG in DEXTROSE 5%-WATER 100 ML IVPB SCH ×2 (13:42→21:08)
[2023-04-13 14:00] VITALS: BMI 23.8
[2023-04-14] MEDS: PIPERACILLIN/TAZOB 3.375 GM 3.375 GM in DEXTROSE 5%-WATER - 50 ML IVPB SCH ×3 (01:10→17:57)
[2023-04-14] MEDS: ALBUTEROL SO4 2.5/IPRATROPIUM 0.5 INH SOL 3 ML VIAL.NEB. NEB SCH ×4 (03:00→20:14)
[2023-04-14] MEDS: TOPIRAMATE 200 MG, TOPIRAMATE 100 MG GT SCH ×2 (05:43→17:58)
[2023-04-14 08:28] LABS: BASO % 0.2 % (0-2.0); EOS % 0.9 % (0-4.5); HEMATOCRIT 28.2 % (32.4-45.2); HEMOGLOBIN 9.6 GM/dL (10.7-15.3); LYMPH % 22.3 % (8-40); MCH 32.5 pg (25.7-33.7); MCHC 34.2 g/dl (32.0-36.0); MEAN CELL VOLUME 94.9 fl (80-96); MEAN PLT VOLUME 7.6 fl (7.5-11.1); MONO % 11.6 % (3.8-10.2); PLATELET COUNT 172 10^3/uL (134-434); RBC 2.97 M/mm3 (3.60-5.2); RDW 16.4 % (11.6-15.6); WHITE BLOOD COUNT 7.6 K/mm3 (4.0-10.0)
[2023-04-14 08:34] LABS: POTASSIUM 3.4 mmol/L (3.5-5.1)
[2023-04-14 08:40] LABS: ALBUMIN 2.8 g/dl (3.4-5.0); BLOOD UREA NITROGEN 10.8 mg/dL (7-18); CALCIUM 8.6 mg/dL (8.5-10.1)
[2023-04-14 08:43] LABS: CREATININE 0.4 mg/dL (0.55-1.3)
[2023-04-14 08:45] LABS: BILIRUBIN,TOTAL 0.4 mg/dL (0.2-1); TOT PROT 6.4 g/dl (6.4-8.2)
[2023-04-14] MEDS: DOXYCYCLINE INJECTION 100 MG in DEXTROSE 5%-WATER 100 ML IVPB SCH ×2 (09:36→21:54)
[2023-04-14] MEDS ORDERED: diazePAM RECTAL GEL 10 MG KIT (PRE-CALIBRATED) RC PRN (09:39)
[2023-04-14] MEDS: levETIRAcetam 500 MG/5 ML ORAL SOLUTION (UNIT-DOSE CUPS) GT SCH ×2 (10:51→21:54)
[2023-04-14] MEDS: SODIUM CHLORIDE 1 GM TABLET GT SCH ×2 (10:52→21:55)
[2023-04-14] MEDS: OXcarbazepine 300 MG/5 ML UNIT DOSE CUPS GT SCH ×2 (10:53→22:20)
[2023-04-14] MEDS: guaiFENesin 200 MG/10 ML 10 ML UNIT-DOSE CUPS GT PRN (13:39)
[2023-04-14] MEDS ORDERED: POTASSIUM CHLORIDE TABS 20 MEQ TABLET.ER (FP) PO ONE (13:41)
[2023-04-14] MEDS ORDERED: guaiFENesin/CODEINE 10 ML UNIT-DOSE CUPS GT ONE (14:01)
[2023-04-15] MEDS: PIPERACILLIN/TAZOB 3.375 GM 3.375 GM in DEXTROSE 5%-WATER - 50 ML IVPB SCH ×3 (02:20→17:37)
[2023-04-15] MEDS: TOPIRAMATE 200 MG, TOPIRAMATE 100 MG GT SCH ×2 (05:16→17:39)
[2023-04-15] MEDS: ALBUTEROL SO4 2.5/IPRATROPIUM 0.5 INH SOL 3 ML VIAL.NEB. NEB SCH ×4 (08:00→20:07)
[2023-04-15] MEDS: levETIRAcetam 500 MG/5 ML ORAL SOLUTION (UNIT-DOSE CUPS) GT SCH ×2 (09:16→21:30)
[2023-04-15] MEDS: SODIUM CHLORIDE 1 GM TABLET GT SCH ×2 (09:17→21:30)
[2023-04-15] MEDS: DOXYCYCLINE INJECTION 100 MG in DEXTROSE 5%-WATER 100 ML IVPB SCH ×2 (09:17→21:31)
[2023-04-15] MEDS: OXcarbazepine 300 MG/5 ML UNIT DOSE CUPS GT SCH ×2 (09:17→21:32)
[2023-04-15 09:47] LABS: BASO % 0.2 % (0-2.0); EOS % 1.7 % (0-4.5); HEMATOCRIT 29.5 % (32.4-45.2); LYMPH % 34.8 % (8-40); MCH 32.4 pg (25.7-33.7); MCHC 33.9 g/dl (32.0-36.0); MEAN CELL VOLUME 95.8 fl (80-96); MEAN PLT VOLUME 7.8 fl (7.5-11.1); MONO % 11.2 % (3.8-10.2); NEUT % 52.1 % (42.8-82.8); PLATELET COUNT 185 10^3/uL (134-434); RBC 3.08 M/mm3 (3.60-5.2); RDW 16.4 % (11.6-15.6); WHITE BLOOD COUNT 4.8 K/mm3 (4.0-10.0)
[2023-04-15 10:02] LABS: POTASSIUM 4.4 mmol/L (3.5-5.1)
[2023-04-15 10:04] LABS: ALBUMIN 2.8 g/dl (3.4-5.0); CALCIUM 8.7 mg/dL (8.5-10.1)
[2023-04-15 10:05] LABS: BLOOD UREA NITROGEN 13.1 mg/dL (7-18)
[2023-04-15 10:08] LABS: CREATININE 0.3 mg/dL (0.55-1.3)
[2023-04-15 10:09] LABS: BILIRUBIN,TOTAL 0.3 mg/dL (0.2-1); TOT PROT 6.5 g/dl (6.4-8.2)
[2023-04-15] MEDS: guaiFENesin 200 MG/10 ML 10 ML UNIT-DOSE CUPS GT PRN ×2 (14:26→21:30)
[2023-04-16] MEDS: PIPERACILLIN/TAZOB 3.375 GM 3.375 GM in DEXTROSE 5%-WATER - 50 ML IVPB SCH ×3 (01:23→17:33)
[2023-04-16] MEDS: TOPIRAMATE 200 MG, TOPIRAMATE 100 MG GT SCH ×2 (06:20→17:34)
[2023-04-16 08:26] LABS: BASO % 0.4 % (0-2.0); EOS % 2.2 % (0-4.5); HEMATOCRIT 28.8 % (32.4-45.2); HEMOGLOBIN 9.6 GM/dL (10.7-15.3); LYMPH % 42.7 % (8-40); MCHC 33.3 g/dl (32.0-36.0); MEAN CELL VOLUME 96.3 fl (80-96); MEAN PLT VOLUME 7.9 fl (7.5-11.1); MONO % 8.8 % (3.8-10.2); NEUT % 45.9 % (42.8-82.8); PLATELET COUNT 202 10^3/uL (134-434); RBC 2.99 M/mm3 (3.60-5.2); RDW 16.1 % (11.6-15.6); WHITE BLOOD COUNT 3.9 K/mm3 (4.0-10.0)
[2023-04-16 08:32] LABS: POTASSIUM 3.9 mmol/L (3.5-5.1)
[2023-04-16 08:35] LABS: CALCIUM 8.4 mg/dL (8.5-10.1)
[2023-04-16 08:36] LABS: ALBUMIN 2.7 g/dl (3.4-5.0); BLOOD UREA NITROGEN 15.1 mg/dL (7-18)
[2023-04-16 08:39] LABS: CREATININE 0.4 mg/dL (0.55-1.3)
[2023-04-16 08:41] LABS: BILIRUBIN,TOTAL 0.4 mg/dL (0.2-1); TOT PROT 6.2 g/dl (6.4-8.2)
[2023-04-16] MEDS: DOXYCYCLINE INJECTION 100 MG in DEXTROSE 5%-WATER 100 ML IVPB SCH ×2 (09:23→22:01)
[2023-04-16] MEDS: ALBUTEROL SO4 2.5/IPRATROPIUM 0.5 INH SOL 3 ML VIAL.NEB. NEB SCH ×4 (09:23→21:00)
[2023-04-16] MEDS: SODIUM CHLORIDE 1 GM TABLET GT SCH ×2 (09:24→22:03)
[2023-04-16] MEDS: OXcarbazepine 300 MG/5 ML UNIT DOSE CUPS GT SCH ×2 (09:24→22:04)
[2023-04-16] MEDS: levETIRAcetam 500 MG/5 ML ORAL SOLUTION (UNIT-DOSE CUPS) GT SCH ×2 (09:24→22:04)
[2023-04-16] MEDS: ENOXAPARIN NA (PORCINE) 30 MG/0.3 ML DISP.SYRIN SQ SCH (18:49)
[2023-04-16] MEDS: guaiFENesin 200 MG/10 ML 10 ML UNIT-DOSE CUPS GT PRN (22:06)
[2023-04-17] MEDS: PIPERACILLIN/TAZOB 3.375 GM 3.375 GM in DEXTROSE 5%-WATER - 50 ML IVPB SCH ×3 (01:24→17:04)
[2023-04-17] MEDS: TOPIRAMATE 200 MG, TOPIRAMATE 100 MG GT SCH (05:53)
[2023-04-17] MEDS: ALBUTEROL SO4 2.5/IPRATROPIUM 0.5 INH SOL 3 ML VIAL.NEB. NEB SCH ×4 (08:02→20:50)
[2023-04-17 08:23] LABS: POTASSIUM 4.2 mmol/L (3.5-5.1)
[2023-04-17 08:27] LABS: ALBUMIN 2.6 g/dl (3.4-5.0); CALCIUM 8.4 mg/dL (8.5-10.1)
[2023-04-17 08:28] LABS: MAGNESIUM 1.4 mg/dL (1.8-2.4)
[2023-04-17 08:30] LABS: CREATININE 0.4 mg/dL (0.55-1.3); PHOSPHOROUS 4.5 mg/dL (2.5-4.9)
[2023-04-17 08:32] LABS: BILIRUBIN,TOTAL 0.3 mg/dL (0.2-1)
[2023-04-17] MEDS: MAGNESIUM SULFATE IN WATER 2 GM/50 ML IVPB IVPB ONE ×2 (10:19→10:23)
[2023-04-17] MEDS: ENOXAPARIN NA (PORCINE) 30 MG/0.3 ML DISP.SYRIN SQ SCH (10:20)
[2023-04-17] MEDS: SODIUM CHLORIDE 1 GM TABLET GT SCH ×2 (10:20→22:25)
[2023-04-17] MEDS: TOPIRAMATE 100 MG TABLET GT SCH ×2 (10:21→22:25)
[2023-04-17] MEDS: OXcarbazepine 300 MG/5 ML UNIT DOSE CUPS GT SCH ×2 (10:21→22:25)
[2023-04-17] MEDS: DOXYCYCLINE INJECTION 100 MG in DEXTROSE 5%-WATER 100 ML IVPB SCH ×2 (10:22→22:26)
[2023-04-17 11:09] LABS: BASO % 0.6 % (0-2.0); EOS % 1.8 % (0-4.5); HEMATOCRIT 28.4 % (32.4-45.2); HEMOGLOBIN 9.8 GM/dL (10.7-15.3); LYMPH % 42.1 % (8-40); MCH 32.7 pg (25.7-33.7); MCHC 34.5 g/dl (32.0-36.0); MEAN CELL VOLUME 94.6 fl (80-96); MEAN PLT VOLUME 7.5 fl (7.5-11.1); NEUT % 45.5 % (42.8-82.8); PLATELET COUNT 242 10^3/uL (134-434); RBC 3.01 M/mm3 (3.60-5.2); RDW 16.2 % (11.6-15.6); WHITE BLOOD COUNT 3.5 K/mm3 (4.0-10.0)
[2023-04-17] MEDS: levETIRAcetam 500 MG/5 ML ORAL SOLUTION (UNIT-DOSE CUPS) GT SCH ×2 (11:45→22:25)
[2023-04-17] MEDS ORDERED: POTASSIUM CHLORIDE ORAL LIQUID 20 MEQ/15 ML GT ONE (15:32)
[2023-04-17 18:30] VITALS: RESP 18
[2023-04-18] MEDS: PIPERACILLIN/TAZOB 3.375 GM 3.375 GM in DEXTROSE 5%-WATER - 50 ML IVPB SCH ×2 (02:30→10:23)
[2023-04-18 08:54] LABS: HEMATOCRIT 28.4 % (32.4-45.2); HEMOGLOBIN 9.8 GM/dL (10.7-15.3); MCH 32.5 pg (25.7-33.7); MCHC 34.3 g/dl (32.0-36.0); MEAN CELL VOLUME 94.8 fl (80-96); MEAN PLT VOLUME 7.3 fl (7.5-11.1); PLATELET COUNT 257 10^3/uL (134-434); RDW 16.2 % (11.6-15.6); WHITE BLOOD COUNT 3.4 K/mm3 (4.0-10.0)
[2023-04-18 09:17] LABS: ALBUMIN 2.7 g/dl (3.4-5.0); BLOOD UREA NITROGEN 15.2 mg/dL (7-18); CALCIUM 8.3 mg/dL (8.5-10.1); MAGNESIUM 1.8 mg/dL (1.8-2.4)
[2023-04-18 09:20] LABS: CREATININE 0.4 mg/dL (0.55-1.3); PHOSPHOROUS 4.3 mg/dL (2.5-4.9)
[2023-04-18 09:22] LABS: BILIRUBIN,TOTAL 0.5 mg/dL (0.2-1); TOT PROT 6.3 g/dl (6.4-8.2)
[2023-04-18] MEDS: DOXYCYCLINE INJECTION 100 MG in DEXTROSE 5%-WATER 100 ML IVPB SCH (10:15)
[2023-04-18] MEDS: TOPIRAMATE 100 MG TABLET GT SCH ×2 (10:17→22:22)
[2023-04-18] MEDS: SODIUM CHLORIDE 1 GM TABLET GT SCH ×2 (10:18→22:21)
[2023-04-18] MEDS: ENOXAPARIN NA (PORCINE) 30 MG/0.3 ML DISP.SYRIN SQ SCH (10:18)
[2023-04-18] MEDS: levETIRAcetam 500 MG/5 ML ORAL SOLUTION (UNIT-DOSE CUPS) GT SCH ×2 (10:19→22:21)
[2023-04-18] MEDS: OXcarbazepine 300 MG/5 ML UNIT DOSE CUPS GT SCH ×2 (10:20→22:22)
[2023-04-19 07:25] LABS: BASO % 0.8 % (0-2.0); EOS % 1.9 % (0-4.5); HEMATOCRIT 32.1 % (32.4-45.2); HEMOGLOBIN 10.5 GM/dL (10.7-15.3); LYMPH % 48.1 % (8-40); MCH 31.6 pg (25.7-33.7); MCHC 32.8 g/dl (32.0-36.0); MEAN CELL VOLUME 96.5 fl (80-96); MEAN PLT VOLUME 7.2 fl (7.5-11.1); MONO % 10.1 % (3.8-10.2); NEUT % 39.1 % (42.8-82.8); PLATELET COUNT 317 10^3/uL (134-434); RBC 3.33 M/mm3 (3.60-5.2); RDW 15.6 % (11.6-15.6)
[2023-04-19 07:41] LABS: POTASSIUM 3.8 mmol/L (3.5-5.1)
[2023-04-19 07:44] LABS: BLOOD UREA NITROGEN 16.9 mg/dL (7-18); CALCIUM 8.6 mg/dL (8.5-10.1); MAGNESIUM 1.6 mg/dL (1.8-2.4)
[2023-04-19 07:48] LABS: CREATININE 0.3 mg/dL (0.55-1.3)
[2023-04-19] MEDS: ENOXAPARIN NA (PORCINE) 30 MG/0.3 ML DISP.SYRIN SQ SCH (09:43)
[2023-04-19] MEDS: TOPIRAMATE 100 MG TABLET GT SCH ×2 (09:44→22:15)
[2023-04-19] MEDS: levETIRAcetam 500 MG/5 ML ORAL SOLUTION (UNIT-DOSE CUPS) GT SCH ×2 (09:44→22:15)
[2023-04-19] MEDS: SODIUM CHLORIDE 1 GM TABLET GT SCH ×2 (09:48→22:15)
[2023-04-19] MEDS: OXcarbazepine 300 MG/5 ML UNIT DOSE CUPS GT SCH ×2 (10:03→22:50)
[2023-04-19] MEDS ORDERED: ACETAMINOPHEN 650 MG/20.3 ML ORAL SOLUTION (CUPS) GT PRN (20:19)
[2023-04-19] MEDS ORDERED: BISACODYL 10 MG SUPP.RECT RC PRN (20:19)
[2023-04-19] MEDS ORDERED: guaiFENesin 200 MG/10 ML 10 ML UNIT-DOSE CUPS GT PRN (20:19)
[2023-04-19] MEDS ORDERED: SODIUM CHLORIDE NASAL SPRAY 44 ML BOTTLE NS PRN (20:19)
[2023-04-20 03:32] VITALS: PULSE 77
[2023-04-20 09:59] LABS: HEMATOCRIT 36.9 % (32.4-45.2); HEMOGLOBIN 12.2 GM/dL (10.7-15.3); MCH 31.9 pg (25.7-33.7); MCHC 33.1 g/dl (32.0-36.0); MEAN CELL VOLUME 96.4 fl (80-96); MEAN PLT VOLUME 7.5 fl (7.5-11.1); PLATELET COUNT 394 10^3/uL (134-434); RBC 3.83 M/mm3 (3.60-5.2); RDW 15.8 % (11.6-15.6); WHITE BLOOD COUNT 5.4 K/mm3 (4.0-10.0)
[2023-04-20 10:05] LABS: POTASSIUM 4.2 mmol/L (3.5-5.1)
[2023-04-20 10:19] LABS: ALBUMIN 3.2 g/dl (3.4-5.0); BLOOD UREA NITROGEN 18.7 mg/dL (7-18); CALCIUM 9.3 mg/dL (8.5-10.1); MAGNESIUM 1.9 mg/dL (1.8-2.4)
[2023-04-20 10:22] LABS: CREATININE 0.4 mg/dL (0.55-1.3); PHOSPHOROUS 5.2 mg/dL (2.5-4.9)
[2023-04-20 10:31] LABS: BILIRUBIN,TOTAL 0.2 mg/dL (0.2-1); TOT PROT 7.2 g/dl (6.4-8.2)
[2023-04-20] MEDS: OXcarbazepine 300 MG/5 ML UNIT DOSE CUPS GT SCH (10:54)
[2023-04-20] MEDS: levETIRAcetam 500 MG/5 ML ORAL SOLUTION (UNIT-DOSE CUPS) GT SCH (10:54)
[2023-04-20] MEDS: SODIUM CHLORIDE 1 GM TABLET GT SCH (10:55)
[2023-04-20] MEDS: TOPIRAMATE 100 MG TABLET GT SCH (10:55)
[2023-04-20] MEDS ORDERED: ENOXAPARIN NA (PORCINE) 40 MG/0.4 ML DISP.SYRIN SQ SCH (12:30)
[2023-04-20 14:05] VITALS: BP 115/78; TEMP 97
== END 2023-04-20 16:00 | disposition home or self-care (01) | DRG 177 ==
LOC: JER 17:36 → JERBED 23:11 → J4S 04-12 22:43 → J6S 04-19 11:05
PROVIDERS: ADMIT Internal Medicine; ATTEND Internal Medicine
DX: J69.0 Pneumonitis due to inhalation of food and vomit (principal); G80.0 Spastic quadriplegic cerebral palsy; E87.1 Hypo-osmolality and hyponatremia; G40.909 Epilepsy, unspecified, not intractable, without status epilepticus; M85.80 Other specified disorders of bone density and structure, unspecified site; M41.9 Scoliosis, unspecified; K21.9 Gastro-esophageal reflux disease without esophagitis; J45.909 Unspecified asthma, uncomplicated; Z93.1 Gastrostomy status; I44.0 Atrioventricular block, first degree; D69.6 Thrombocytopenia, unspecified; R74.01 Elevation of levels of liver transaminase levels; E87.6 Hypokalemia; R33.8 Other retention of urine; E83.42 Hypomagnesemia; E86.0 Dehydration
CPT/HCPCS: 0241U-QW; 36415; 71045-TC-FY; 71250-TC; 76705-TC; 80048; 80053; 81003; 82550; 82553; 82803; 82962; 83605; 83735; 83880; 84100; 84484; 85025; 85027; 85610; 85730; 87040; 87081; 87086; 87186; 87635; 87899; 93005; 93010; 93306-TC; 94640; 99285-25

== ENCOUNTER 2023-05-17 01:14 | Inpatient (IN) | payer OTHER ==
[2023-05-17 01:28] VITALS: BMI 39.2
[2023-05-17 02:24] LABS: HEMATOCRIT 38.2 % (32.4-45.2); HEMOGLOBIN 12.7 GM/dL (10.7-15.3); MCH 31.4 pg (25.7-33.7); MCHC 33.2 g/dl (32.0-36.0); MEAN CELL VOLUME 94.6 fl (80-96); MEAN PLT VOLUME 8.1 fl (7.5-11.1); PLATELET COUNT 179 10^3/uL (134-434); RBC 4.04 M/mm3 (3.60-5.2); RDW 16.9 % (11.6-15.6); WHITE BLOOD COUNT 18.2 K/mm3 (4.0-10.0)
[2023-05-17] MEDS ORDERED: methylPREDNISolone NA SUCC 125 MG/2 ML VIAL IVPUSH ONE (02:57)
[2023-05-17] MEDS ORDERED: methylPREDNISolone NA SUCC 125 MG/2 ML VIAL ONE (03:00)
[2023-05-17] MEDS ORDERED: AZITHROMYCIN IVPB 500 MG in DEXTROSE 5%-WATER - 250 ML IVPB ONE (03:02)
[2023-05-17] MEDS ORDERED: CEFTRIAXONE 1 GM in DEXTROSE 5%-WATER - 100 ML IVPB ONE (03:02)
[2023-05-17] MEDS ORDERED: PIPERACILLIN/TAZOB 4.5 GM 4.5 GM in DEXTROSE 5%-WATER 100 ML IVPB ONE (03:09)
[2023-05-17] MEDS: ALBUTEROL SO4 2.5/IPRATROPIUM 0.5 INH SOL 3 ML VIAL.NEB. NEB SCH ×6 (03:11→20:02)
[2023-05-17 03:39] LABS: ANISOCYTOSIS 1+; MACROCYTOSIS 0
[2023-05-17] MEDS ORDERED: PIPERACILLIN/TAZOB 4.5 GM 4.5 GM/100 ML BAG IVPB ONE (03:54)
[2023-05-17 04:35] LABS: INR 1.01 (0.83-1.09); PROTHROMBIN TIME (PATIENT) 11.7 SEC (9.7-13.0)
[2023-05-17 04:38] LABS: ACTIVATED PTT 39.1 SECONDS (25.2-36.5)
[2023-05-17 05:11] LABS: POTASSIUM 4.8 mmol/L (3.5-5.1)
[2023-05-17 05:13] LABS: CALCIUM 8.6 mg/dL (8.5-10.1)
[2023-05-17 05:15] LABS: ALBUMIN 3.3 g/dl (3.4-5.0); BLOOD UREA NITROGEN 15.7 mg/dL (7-18)
[2023-05-17 05:17] LABS: CREATININE 0.4 mg/dL (0.55-1.3)
[2023-05-17 05:18] LABS: BILIRUBIN,TOTAL 0.3 mg/dL (0.2-1)
[2023-05-17] MEDS ORDERED: PATIENT'S OWN MEDICATION (NON-FORMULARY) (Diazepam [Valtoco] 10 MG/0.1 ML Spray) NS PRN (05:20)
[2023-05-17 05:22] LABS: N-TERMINAL BNP 185.9 pg/ml (5-125)
[2023-05-17] MEDS ORDERED: NAPHAZOLINE/PHENIRAMINE OPHTHALMIC 15 ML BOTTLE OU PRN (05:24)
[2023-05-17] MEDS ORDERED: DOXYCYCLINE INJECTION 100 MG in DEXTROSE 5%-WATER 100 ML IVPB SCH (05:42)
[2023-05-17 05:59] LABS: EPI CELLS 4 /uL (0-25.1); HYALINE CASTS 0 /uL (0-3.1); PH,URINE 6.5 (5.0-8.0); URINE APPEARANCE CLEAR; URINE BACTERIA 13 /uL (0-1359); URINE BILIRUBIN NEGATIVE (NEGATIVE); URINE COLOR YELLOW; URINE GLUCOSE (UA) NEGATIVE (NEGATIVE); URINE KETONE NEGATIVE (NEGATIVE); URINE LEUK ESTERASE TRACE (NEGATIVE); URINE NITRITE NEGATIVE (NEGATIVE); URINE PROTEIN NEGATIVE (NEGATIVE); URINE RBC 17 /uL (0-23.9); URINE UROBILINOGEN 0.2 mg/dL (0.2-1.0); URINE WBC 7 /uL (0-25.8)
[2023-05-17] MEDS ORDERED: SODIUM CHLORIDE NASAL SPRAY 44 ML BOTTLE NS PRN (06:27)
[2023-05-17 06:32] LABS: HEMATOCRIT 34.8 % (32.4-45.2); HEMOGLOBIN 11.3 GM/dL (10.7-15.3); MCH 31.2 pg (25.7-33.7); MCHC 32.4 g/dl (32.0-36.0); MEAN CELL VOLUME 96.4 fl (80-96); MEAN PLT VOLUME 7.8 fl (7.5-11.1); PLATELET COUNT 153 10^3/uL (134-434); RBC 3.61 M/mm3 (3.60-5.2); RDW 16.8 % (11.6-15.6); WHITE BLOOD COUNT 19.2 K/mm3 (4.0-10.0)
[2023-05-17] MEDS ORDERED: levETIRAcetam 500 MG TABLET (FP) PO ONE (06:39)
[2023-05-17 06:50] LABS: POTASSIUM 4.3 mmol/L (3.5-5.1)
[2023-05-17] MEDS: levETIRAcetam 500 MG/5 ML ORAL SOLUTION (UNIT-DOSE CUPS) GT SCH ×2 (06:50→17:17)
[2023-05-17 06:51] LABS: CALCIUM 8.7 mg/dL (8.5-10.1)
[2023-05-17 06:52] LABS: ALBUMIN 3.2 g/dl (3.4-5.0)
[2023-05-17 06:55] LABS: CREATININE 0.4 mg/dL (0.55-1.3); PHOSPHOROUS 3.4 mg/dL (2.5-4.9)
[2023-05-17 06:56] LABS: BILIRUBIN,TOTAL 0.4 mg/dL (0.2-1); TOT PROT 6.9 g/dl (6.4-8.2)
[2023-05-17] MEDS: BUDESONIDE/FORMETEROL FUMARATE 80/4.5 mcg INHALER IH SCH ×3 (07:30→22:13)
[2023-05-17] MEDS: OXcarbazepine 300 MG/5 ML UNIT DOSE CUPS GT SCH ×2 (07:30→20:01)
[2023-05-17] MEDS ORDERED: ALBUTEROL SO4 2.5/IPRATROPIUM 0.5 INH SOL 3 ML VIAL.NEB. NEB SCH (08:00)
[2023-05-17] MEDS ORDERED: ENOXAPARIN NA (PORCINE) 40 MG/0.4 ML DISP.SYRIN SQ ONE (09:07)
[2023-05-17] MEDS: ENOXAPARIN NA (PORCINE) 40 MG/0.4 ML DISP.SYRIN SQ SCH (09:14)
[2023-05-17] MEDS ORDERED: OXcarbazepine 300 MG/5 ML UNIT DOSE CUPS GT SCH (10:00)
[2023-05-17] MEDS ORDERED: levETIRAcetam 500 MG/5 ML ORAL SOLUTION (UNIT-DOSE CUPS) GT SCH (10:00)
[2023-05-17] MEDS: methylPREDNISolone NA SUCC 40 MG/1 ML VIAL IVPUSH SCH ×2 (10:05→17:17)
[2023-05-17] MEDS ORDERED: SODIUM CHLORIDE 1,000 ML IV SCH (13:45)
[2023-05-17] MEDS: TOPIRAMATE 100 MG TABLET GT SCH (17:17)
[2023-05-17] MEDS: PIPERACILLIN/TAZOB 3.375 GM 3.375 GM in DEXTROSE 5%-WATER - 50 ML IVPB SCH (17:34)
[2023-05-17] MEDS ORDERED: TOPIRAMATE 200 MG TABLET GT SCH (18:00)
[2023-05-17] MEDS: SCOPOLAMINE HYDROBROMIDE 1 PATCH PATCH.TD72 TD SCH (21:15)
[2023-05-18] MEDS: methylPREDNISolone NA SUCC 40 MG/1 ML VIAL IVPUSH SCH ×3 (02:03→17:28)
[2023-05-18] MEDS: PIPERACILLIN/TAZOB 3.375 GM 3.375 GM in DEXTROSE 5%-WATER - 50 ML IVPB SCH ×3 (02:03→17:29)
[2023-05-18] MEDS: OXcarbazepine 300 MG/5 ML UNIT DOSE CUPS GT SCH ×2 (05:47→17:29)
[2023-05-18] MEDS: TOPIRAMATE 100 MG TABLET GT SCH ×2 (05:47→17:29)
[2023-05-18] MEDS: levETIRAcetam 500 MG/5 ML ORAL SOLUTION (UNIT-DOSE CUPS) GT SCH ×2 (05:47→17:28)
[2023-05-18] MEDS: ENOXAPARIN NA (PORCINE) 40 MG/0.4 ML DISP.SYRIN SQ SCH (10:47)
[2023-05-18] MEDS: BUDESONIDE/FORMETEROL FUMARATE 80/4.5 mcg INHALER IH SCH ×2 (10:48→21:28)
[2023-05-18] MEDS: ALBUTEROL SO4 2.5/IPRATROPIUM 0.5 INH SOL 3 ML VIAL.NEB. NEB SCH ×3 (15:13→20:08)
[2023-05-18 16:03] LABS: HEMATOCRIT 31.2 % (32.4-45.2); HEMOGLOBIN 10.3 GM/dL (10.7-15.3); MCH 31.7 pg (25.7-33.7); MCHC 32.9 g/dl (32.0-36.0); MEAN CELL VOLUME 96.2 fl (80-96); MEAN PLT VOLUME 8.4 fl (7.5-11.1); PLATELET COUNT 139 10^3/uL (134-434); RBC 3.24 M/mm3 (3.60-5.2); RDW 17.4 % (11.6-15.6); WHITE BLOOD COUNT 9.3 K/mm3 (4.0-10.0)
[2023-05-18 16:32] LABS: ANISOCYTOSIS 2+; MACROCYTOSIS 0
[2023-05-19] MEDS: methylPREDNISolone NA SUCC 40 MG/1 ML VIAL IVPUSH SCH ×3 (01:47→17:05)
[2023-05-19] MEDS: PIPERACILLIN/TAZOB 3.375 GM 3.375 GM in DEXTROSE 5%-WATER - 50 ML IVPB SCH ×3 (01:47→17:05)
[2023-05-19] MEDS: levETIRAcetam 500 MG/5 ML ORAL SOLUTION (UNIT-DOSE CUPS) GT SCH ×3 (05:08→17:05)
[2023-05-19] MEDS: TOPIRAMATE 100 MG TABLET GT SCH ×2 (05:08→17:07)
[2023-05-19] MEDS: OXcarbazepine 300 MG/5 ML UNIT DOSE CUPS GT SCH ×2 (05:59→17:05)
[2023-05-19] MEDS: ALBUTEROL SO4 2.5/IPRATROPIUM 0.5 INH SOL 3 ML VIAL.NEB. NEB SCH ×4 (07:51→20:39)
[2023-05-19] MEDS: ENOXAPARIN NA (PORCINE) 40 MG/0.4 ML DISP.SYRIN SQ SCH (09:48)
[2023-05-19] MEDS: BUDESONIDE/FORMETEROL FUMARATE 80/4.5 mcg INHALER IH SCH ×2 (09:52→22:08)
[2023-05-20] MEDS: methylPREDNISolone NA SUCC 40 MG/1 ML VIAL IVPUSH SCH ×3 (01:19→17:44)
[2023-05-20] MEDS: PIPERACILLIN/TAZOB 3.375 GM 3.375 GM in DEXTROSE 5%-WATER - 50 ML IVPB SCH ×3 (01:19→17:43)
[2023-05-20] MEDS: TOPIRAMATE 100 MG TABLET GT SCH ×2 (06:14→17:44)
[2023-05-20] MEDS: levETIRAcetam 500 MG/5 ML ORAL SOLUTION (UNIT-DOSE CUPS) GT SCH ×2 (06:15→17:44)
[2023-05-20] MEDS: OXcarbazepine 300 MG/5 ML UNIT DOSE CUPS GT SCH ×2 (06:17→17:44)
[2023-05-20] MEDS: ALBUTEROL SO4 2.5/IPRATROPIUM 0.5 INH SOL 3 ML VIAL.NEB. NEB SCH ×4 (08:15→19:56)
[2023-05-20] MEDS: ENOXAPARIN NA (PORCINE) 40 MG/0.4 ML DISP.SYRIN SQ SCH (10:34)
[2023-05-20] MEDS: BUDESONIDE/FORMETEROL FUMARATE 80/4.5 mcg INHALER IH SCH ×2 (10:35→22:07)
[2023-05-20 12:28] LABS: BASO % 0.2 % (0-2.0); EOS % 0.5 % (0-4.5); HEMATOCRIT 28.1 % (32.4-45.2); HEMOGLOBIN 9.1 GM/dL (10.7-15.3); LYMPH % 28.7 % (8-40); MCH 31.5 pg (25.7-33.7); MCHC 32.4 g/dl (32.0-36.0); MEAN CELL VOLUME 97.1 fl (80-96); MEAN PLT VOLUME 8.2 fl (7.5-11.1); MONO % 5.8 % (3.8-10.2); NEUT % 64.8 % (42.8-82.8); PLATELET COUNT 129 10^3/uL (134-434); RBC 2.89 M/mm3 (3.60-5.2); RDW 16.5 % (11.6-15.6); WHITE BLOOD COUNT 5.8 K/mm3 (4.0-10.0)
[2023-05-20 12:46] LABS: POTASSIUM 3.3 mmol/L (3.5-5.1)
[2023-05-20 12:47] LABS: CALCIUM 8.4 mg/dL (8.5-10.1)
[2023-05-20 12:48] LABS: BLOOD UREA NITROGEN 12.4 mg/dL (7-18); MAGNESIUM 1.6 mg/dL (1.8-2.4)
[2023-05-20 12:51] LABS: CREATININE 0.4 mg/dL (0.55-1.3); PHOSPHOROUS 3.1 mg/dL (2.5-4.9)
[2023-05-20] MEDS ORDERED: POTASSIUM CHLORIDE ORAL LIQUID 20 MEQ/15 ML GT ONE (17:51)
[2023-05-20] MEDS: SCOPOLAMINE HYDROBROMIDE 1 PATCH PATCH.TD72 TD SCH (20:11)
[2023-05-21] MEDS: PIPERACILLIN/TAZOB 3.375 GM 3.375 GM in DEXTROSE 5%-WATER - 50 ML IVPB SCH ×3 (02:16→17:14)
[2023-05-21] MEDS: methylPREDNISolone NA SUCC 40 MG/1 ML VIAL IVPUSH SCH ×3 (02:16→17:15)
[2023-05-21] MEDS: levETIRAcetam 500 MG/5 ML ORAL SOLUTION (UNIT-DOSE CUPS) GT SCH ×2 (04:47→17:19)
[2023-05-21] MEDS: OXcarbazepine 300 MG/5 ML UNIT DOSE CUPS GT SCH ×2 (04:47→17:20)
[2023-05-21] MEDS: TOPIRAMATE 100 MG TABLET GT SCH ×2 (04:47→17:19)
[2023-05-21] MEDS: ALBUTEROL SO4 2.5/IPRATROPIUM 0.5 INH SOL 3 ML VIAL.NEB. NEB SCH ×4 (07:39→20:26)
[2023-05-21 07:57] LABS: POTASSIUM 4.2 mmol/L (3.5-5.1)
[2023-05-21 08:00] LABS: BASO % 0.1 % (0-2.0); CALCIUM 8.5 mg/dL (8.5-10.1); EOS % 0.2 % (0-4.5); HEMATOCRIT 28.4 % (32.4-45.2); HEMOGLOBIN 9.6 GM/dL (10.7-15.3); LYMPH % 15.8 % (8-40); MCH 32.3 pg (25.7-33.7); MCHC 33.9 g/dl (32.0-36.0); MEAN CELL VOLUME 95.5 fl (80-96); MEAN PLT VOLUME 8.3 fl (7.5-11.1); MONO % 5.3 % (3.8-10.2); NEUT % 78.6 % (42.8-82.8); PLATELET COUNT 127 10^3/uL (134-434); RBC 2.97 M/mm3 (3.60-5.2); RDW 16.7 % (11.6-15.6); WHITE BLOOD COUNT 4.3 K/mm3 (4.0-10.0)
[2023-05-21 08:03] LABS: CREATININE 0.4 mg/dL (0.55-1.3)
[2023-05-21 08:05] LABS: BILIRUBIN,TOTAL 0.2 mg/dL (0.2-1); TOT PROT 6.5 g/dl (6.4-8.2)
[2023-05-21] MEDS: ENOXAPARIN NA (PORCINE) 40 MG/0.4 ML DISP.SYRIN SQ SCH (09:53)
[2023-05-21] MEDS: BUDESONIDE/FORMETEROL FUMARATE 80/4.5 mcg INHALER IH SCH ×2 (09:56→21:41)
[2023-05-22] MEDS: PIPERACILLIN/TAZOB 3.375 GM 3.375 GM in DEXTROSE 5%-WATER - 50 ML IVPB SCH ×2 (01:38→09:07)
[2023-05-22] MEDS: methylPREDNISolone NA SUCC 40 MG/1 ML VIAL IVPUSH SCH ×3 (01:38→17:17)
[2023-05-22] MEDS: levETIRAcetam 500 MG/5 ML ORAL SOLUTION (UNIT-DOSE CUPS) GT SCH ×2 (05:45→17:17)
[2023-05-22] MEDS: OXcarbazepine 300 MG/5 ML UNIT DOSE CUPS GT SCH ×2 (05:45→17:18)
[2023-05-22] MEDS: TOPIRAMATE 100 MG TABLET GT SCH ×2 (05:45→17:18)
[2023-05-22] MEDS: ALBUTEROL SO4 2.5/IPRATROPIUM 0.5 INH SOL 3 ML VIAL.NEB. NEB SCH ×4 (07:38→20:11)
[2023-05-22 08:17] LABS: POTASSIUM 4.1 mmol/L (3.5-5.1)
[2023-05-22 08:19] LABS: CALCIUM 8.6 mg/dL (8.5-10.1)
[2023-05-22 08:20] LABS: BLOOD UREA NITROGEN 14.5 mg/dL (7-18)
[2023-05-22 08:23] LABS: CREATININE 0.4 mg/dL (0.55-1.3)
[2023-05-22 08:25] LABS: BILIRUBIN,TOTAL 0.2 mg/dL (0.2-1); TOT PROT 6.6 g/dl (6.4-8.2)
[2023-05-22 08:26] LABS: EOS % 0.3 % (0-4.5); HEMATOCRIT 29.8 % (32.4-45.2); LYMPH % 18.2 % (8-40); MCH 32.2 pg (25.7-33.7); MCHC 33.6 g/dl (32.0-36.0); MEAN CELL VOLUME 95.7 fl (80-96); MEAN PLT VOLUME 8.4 fl (7.5-11.1); MONO % 6.2 % (3.8-10.2); NEUT % 75.3 % (42.8-82.8); PLATELET COUNT 130 10^3/uL (134-434); RBC 3.11 M/mm3 (3.60-5.2); RDW 16.8 % (11.6-15.6); WHITE BLOOD COUNT 4.3 K/mm3 (4.0-10.0)
[2023-05-22] MEDS: ENOXAPARIN NA (PORCINE) 40 MG/0.4 ML DISP.SYRIN SQ SCH (09:07)
[2023-05-22] MEDS: BUDESONIDE/FORMETEROL FUMARATE 80/4.5 mcg INHALER IH SCH ×2 (09:08→21:35)
[2023-05-22] MEDS ORDERED: levoFLOXacin 750 MG TABLET GT SCH (17:00)
[2023-05-23] MEDS: methylPREDNISolone NA SUCC 40 MG/1 ML VIAL IVPUSH SCH ×3 (01:01→17:51)
[2023-05-23] MEDS: levETIRAcetam 500 MG/5 ML ORAL SOLUTION (UNIT-DOSE CUPS) GT SCH ×2 (04:05→17:51)
[2023-05-23] MEDS: TOPIRAMATE 100 MG TABLET GT SCH ×2 (04:05→18:37)
[2023-05-23] MEDS: OXcarbazepine 300 MG/5 ML UNIT DOSE CUPS GT SCH ×2 (04:06→17:51)
[2023-05-23] MEDS: levoFLOXacin 750 MG TABLET GT SCH (06:43)
[2023-05-23 08:39] LABS: BASO % 0.1 % (0-2.0); EOS % 0.1 % (0-4.5); HEMATOCRIT 31.2 % (32.4-45.2); HEMOGLOBIN 10.3 GM/dL (10.7-15.3); MCHC 32.9 g/dl (32.0-36.0); MEAN CELL VOLUME 97.2 fl (80-96); MEAN PLT VOLUME 8.2 fl (7.5-11.1); MONO % 9.3 % (3.8-10.2); NEUT % 71.5 % (42.8-82.8); PLATELET COUNT 170 10^3/uL (134-434); RBC 3.21 M/mm3 (3.60-5.2); RDW 16.3 % (11.6-15.6); WHITE BLOOD COUNT 5.2 K/mm3 (4.0-10.0)
[2023-05-23] MEDS: ALBUTEROL SO4 2.5/IPRATROPIUM 0.5 INH SOL 3 ML VIAL.NEB. NEB SCH ×4 (08:41→20:00)
[2023-05-23 08:46] LABS: POTASSIUM 3.9 mmol/L (3.5-5.1)
[2023-05-23 08:48] LABS: CALCIUM 8.7 mg/dL (8.5-10.1)
[2023-05-23 08:49] LABS: ALBUMIN 3.1 g/dl (3.4-5.0); BLOOD UREA NITROGEN 13.3 mg/dL (7-18)
[2023-05-23 08:52] LABS: CREATININE 0.3 mg/dL (0.55-1.3); PHOSPHOROUS 3.5 mg/dL (2.5-4.9)
[2023-05-23 08:53] LABS: TOT PROT 6.7 g/dl (6.4-8.2)
[2023-05-23 08:54] LABS: BILIRUBIN,TOTAL 0.3 mg/dL (0.2-1)
[2023-05-23] MEDS: ENOXAPARIN NA (PORCINE) 40 MG/0.4 ML DISP.SYRIN SQ SCH (09:32)
[2023-05-23] MEDS: BUDESONIDE/FORMETEROL FUMARATE 80/4.5 mcg INHALER IH SCH ×2 (09:33→21:26)
[2023-05-23] MEDS: SCOPOLAMINE HYDROBROMIDE 1 PATCH PATCH.TD72 TD SCH (21:25)
[2023-05-24] MEDS: methylPREDNISolone NA SUCC 40 MG/1 ML VIAL IVPUSH SCH ×3 (02:08→21:48)
[2023-05-24] MEDS: levETIRAcetam 500 MG/5 ML ORAL SOLUTION (UNIT-DOSE CUPS) GT SCH ×2 (04:32→17:38)
[2023-05-24] MEDS: TOPIRAMATE 100 MG TABLET GT SCH ×2 (04:32→17:38)
[2023-05-24] MEDS: OXcarbazepine 300 MG/5 ML UNIT DOSE CUPS GT SCH ×2 (04:33→17:38)
[2023-05-24] MEDS: levoFLOXacin 750 MG TABLET GT SCH (06:16)
[2023-05-24] MEDS: ALBUTEROL SO4 2.5/IPRATROPIUM 0.5 INH SOL 3 ML VIAL.NEB. NEB SCH ×4 (08:10→19:28)
[2023-05-24 08:30] LABS: BASO % 0.2 % (0-2.0); EOS % 0.3 % (0-4.5); HEMATOCRIT 32.6 % (32.4-45.2); HEMOGLOBIN 10.6 GM/dL (10.7-15.3); LYMPH % 21.6 % (8-40); MCH 31.6 pg (25.7-33.7); MCHC 32.4 g/dl (32.0-36.0); MEAN CELL VOLUME 97.6 fl (80-96); MEAN PLT VOLUME 7.8 fl (7.5-11.1); MONO % 10.4 % (3.8-10.2); NEUT % 67.5 % (42.8-82.8); PLATELET COUNT 203 10^3/uL (134-434); RBC 3.34 M/mm3 (3.60-5.2); RDW 16.3 % (11.6-15.6); WHITE BLOOD COUNT 4.4 K/mm3 (4.0-10.0)
[2023-05-24 08:51] LABS: POTASSIUM 4.2 mmol/L (3.5-5.1)
[2023-05-24 08:55] LABS: ALBUMIN 3.2 g/dl (3.4-5.0); CALCIUM 9.2 mg/dL (8.5-10.1)
[2023-05-24 08:56] LABS: BLOOD UREA NITROGEN 16.1 mg/dL (7-18)
[2023-05-24 08:58] LABS: CREATININE 0.3 mg/dL (0.55-1.3)
[2023-05-24 09:00] LABS: BILIRUBIN,TOTAL 0.5 mg/dL (0.2-1); TOT PROT 6.8 g/dl (6.4-8.2)
[2023-05-24] MEDS: BUDESONIDE/FORMETEROL FUMARATE 80/4.5 mcg INHALER IH SCH ×2 (11:09→21:48)
[2023-05-24] MEDS: ENOXAPARIN NA (PORCINE) 40 MG/0.4 ML DISP.SYRIN SQ SCH (14:30)
[2023-05-24] MEDS ORDERED: diazePAM CARPU-JECT 10 MG/2 ML DISP.SYRIN IVPUSH PRN (18:35)
[2023-05-25] MEDS: levoFLOXacin 750 MG TABLET GT SCH (05:46)
[2023-05-25] MEDS: TOPIRAMATE 100 MG TABLET GT SCH ×2 (05:46→17:09)
[2023-05-25] MEDS: OXcarbazepine 300 MG/5 ML UNIT DOSE CUPS GT SCH ×2 (05:46→17:10)
[2023-05-25] MEDS: levETIRAcetam 500 MG/5 ML ORAL SOLUTION (UNIT-DOSE CUPS) GT SCH ×2 (05:46→17:09)
[2023-05-25 09:48] LABS: BASO % 0.2 % (0-2.0); EOS % 0.5 % (0-4.5); HEMATOCRIT 31.7 % (32.4-45.2); HEMOGLOBIN 10.8 GM/dL (10.7-15.3); LYMPH % 44.3 % (8-40); MCH 32.8 pg (25.7-33.7); MCHC 33.9 g/dl (32.0-36.0); MEAN CELL VOLUME 96.5 fl (80-96); MONO % 13.6 % (3.8-10.2); NEUT % 41.4 % (42.8-82.8); RBC 3.29 M/mm3 (3.60-5.2); RDW 16.6 % (11.6-15.6); WHITE BLOOD COUNT 4.9 K/mm3 (4.0-10.0)
[2023-05-25 10:12] LABS: MEAN PLT VOLUME 8.1 fl (7.5-11.1); PLATELET COUNT 245 10^3/uL (134-434)
[2023-05-25] MEDS: ENOXAPARIN NA (PORCINE) 40 MG/0.4 ML DISP.SYRIN SQ SCH (10:12)
[2023-05-25] MEDS: methylPREDNISolone NA SUCC 40 MG/1 ML VIAL IVPUSH SCH (10:13)
[2023-05-25] MEDS: BUDESONIDE/FORMETEROL FUMARATE 80/4.5 mcg INHALER IH SCH (10:15)
[2023-05-25 14:28] LABS: POTASSIUM 4.2 mmol/L (3.5-5.1)
[2023-05-25 14:35] LABS: ALBUMIN 3.2 g/dl (3.4-5.0); CALCIUM 9.1 mg/dL (8.5-10.1)
[2023-05-25 14:36] LABS: BLOOD UREA NITROGEN 15.8 mg/dL (7-18); CREATININE 0.4 mg/dL (0.55-1.3)
[2023-05-25 14:38] LABS: BILIRUBIN,TOTAL 0.2 mg/dL (0.2-1); TOT PROT 6.8 g/dl (6.4-8.2)
[2023-05-25 18:14] VITALS: BP 124/73; PULSE 83; RESP 18; TEMP 98.9
== END 2023-05-25 18:25 | DRG 871 ==
LOC: JER 01:14 → JERBED 03:40 → J7W 14:41
PROVIDERS: ADMIT Internal Medicine
DX: A41.9 Sepsis, unspecified organism (principal); G80.0 Spastic quadriplegic cerebral palsy; J69.0 Pneumonitis due to inhalation of food and vomit; J96.01 Acute respiratory failure with hypoxia; J45.901 Unspecified asthma with (acute) exacerbation; F73 Profound intellectual disabilities; R56.9 Unspecified convulsions; G80.9 Cerebral palsy, unspecified; M41.9 Scoliosis, unspecified; K21.9 Gastro-esophageal reflux disease without esophagitis; R74.01 Elevation of levels of liver transaminase levels
CPT/HCPCS: 0241U-QW; 36415; 71045-TC-FY; 80048; 80053; 80177; 81003; 83605; 83735; 83880; 84100; 84484; 85025; 85027; 85610; 85730; 87040; 87070; 87086; 87186; 87205; 87635; 87899; 93005; 93010; 94640; 99285-25

== ENCOUNTER 2023-06-28 14:46 | Inpatient (IN) | payer OTHER ==
[2023-06-28] MEDS: ALBUTEROL SO4 2.5/IPRATROPIUM 0.5 INH SOL 3 ML VIAL.NEB. NEB SCH (16:17)
[2023-06-28] MEDS ORDERED: VANCOMYCIN 1,000 MG in DEXTROSE 5%-WATER - 250 ML IVPB ONE (16:50)
[2023-06-28 17:03] LABS: VENOUS BASE EXCESS -2.8 mmol/L (-2-2); VENOUS O2 SATURATION 98.6 % (70-80); VENOUS PCO2 39.3 mmHg (38-52); VENOUS PH 7.369 (7.310-7.410)
[2023-06-28 17:05] LABS: BASO % 0.2 % (0-2.0); HEMATOCRIT 30.5 % (32.4-45.2); HEMOGLOBIN 10.2 GM/dL (10.7-15.3); LYMPH % 3.9 % (8-40); MCH 32.2 pg (25.7-33.7); MCHC 33.6 g/dl (32.0-36.0); MEAN CELL VOLUME 95.9 fl (80-96); MEAN PLT VOLUME 7.9 fl (7.5-11.1); MONO % 2.7 % (3.8-10.2); NEUT % 93.2 % (42.8-82.8); PLATELET COUNT 140 10^3/uL (134-434); RBC 3.18 M/mm3 (3.60-5.2); RDW 16.2 % (11.6-15.6); WHITE BLOOD COUNT 16.8 K/mm3 (4.0-10.0)
[2023-06-28 17:23] LABS: POTASSIUM 3.5 mmol/L (3.5-5.1)
[2023-06-28 17:25] LABS: CALCIUM 9.1 mg/dL (8.5-10.1)
[2023-06-28 17:26] LABS: BLOOD UREA NITROGEN 13.4 mg/dL (7-18)
[2023-06-28 17:29] LABS: CREATININE 0.3 mg/dL (0.55-1.3)
[2023-06-28 17:30] LABS: BILIRUBIN,TOTAL 0.4 mg/dL (0.2-1); TOT PROT 6.5 g/dl (6.4-8.2)
[2023-06-28 17:52] LABS: ANISOCYTOSIS 1+; MACROCYTOSIS 0
[2023-06-28] MEDS ORDERED: SODIUM CHLORIDE 0.9% 500 ML INFUS.BAG IV ONE (17:54)
[2023-06-28] MEDS ORDERED: CEFTRIAXONE 1 GM/50 ML BAG ONE (18:07)
[2023-06-28 18:18] LABS: URINE APPEARANCE CLEAR; URINE BILIRUBIN NEGATIVE (NEGATIVE); URINE COLOR YELLOW; URINE GLUCOSE (UA) NEGATIVE (NEGATIVE); URINE KETONE NEGATIVE (NEGATIVE); URINE LEUK ESTERASE NEGATIVE (NEGATIVE); URINE NITRITE NEGATIVE (NEGATIVE); URINE PROTEIN NEGATIVE (NEGATIVE); URINE UROBILINOGEN 0.2 mg/dL (0.2-1.0)
[2023-06-28] MEDS ORDERED: VANCOMYCIN 1 GRAM (PRE-DOCKED) 1,000 MG/250 ML BAG IVPB ONE (18:26)
[2023-06-28] MEDS ORDERED: levETIRAcetam 500 MG/5 ML INJECTION VIAL IVPB ONE ×3 (18:46→18:54)
[2023-06-28] MEDS ORDERED: NOREPINEPHRINE BITARTRATE/D5W 8 MG/250 ML BAG IVPB ONE ×2 (18:59→23:02)
[2023-06-28 19:19] LABS: ARTERIAL BLD GAS O2 SATURATION 98.8 % (95-98); ARTERIAL BLOOD GAS BASE EXCESS -14.3 mmol/L (-2-2); ARTERIAL BLOOD GAS PO2 196.1 mmHg (80-100)
[2023-06-28] MEDS: NOREPINEPHRINE BITARTRATE/D5W 8 MG/250 ML BAG IVPB SCH (19:21)
[2023-06-28 19:24] LABS: ALLENS TEST POSITIVE; ARTERIAL BLOOD GAS pH 7.048 (7.350-7.450)
[2023-06-28 19:25] LABS: VENT MODE BIPAP
[2023-06-28 20:49] LABS: VENOUS BASE EXCESS -9.3 mmol/L (-2-2); VENOUS O2 SATURATION 89.4 % (70-80)
[2023-06-28 20:52] LABS: VENOUS PH 7.181 (7.310-7.410)
[2023-06-29 00:58] LABS: VENOUS BASE EXCESS -11.7 mmol/L (-2-2); VENOUS O2 SATURATION 96.3 % (70-80); VENOUS PCO2 45.7 mmHg (38-52)
[2023-06-29 01:01] LABS: VENOUS PH 7.175 (7.310-7.410)
[2023-06-29] MEDS ORDERED: SODIUM BICARBONATE 8.4% 50 MEQ/50 ML DISP.SYRIN IVPUSH ONE ×2 (01:05→01:06)
[2023-06-29 01:10] LABS: POTASSIUM 3.5 mmol/L (3.5-5.1)
[2023-06-29] MEDS ORDERED: SODIUM BICARBONATE 8.4% 50 MEQ/50 ML VIAL ONE (01:12)
[2023-06-29 01:13] LABS: MAGNESIUM 1.9 mg/dL (1.8-2.4)
[2023-06-29 01:16] LABS: CREATININE 0.5 mg/dL (0.55-1.3); PHOSPHOROUS 4.5 mg/dL (2.5-4.9)
[2023-06-29 01:26] LABS: BLOOD UREA NITROGEN 14.5 mg/dL (7-18)
[2023-06-29 01:32] LABS: ARTERIAL BLD GAS O2 SATURATION 99.3 % (95-98); ARTERIAL BLOOD GAS BASE EXCESS -8.3 mmol/L (-2-2); ARTERIAL BLOOD GAS PO2 226.5 mmHg (80-100); ARTERIAL BLOOD GAS pH 7.234 (7.350-7.450)
[2023-06-29] MEDS ORDERED: SODIUM CHLORIDE 500 ML IV STA (01:36)
[2023-06-29] MEDS: VASopressin 40 UNITS/100 ML BAG IV SCH (02:45)
[2023-06-29] MEDS: PIPERACILLIN/TAZOB 3.375 GM 3.375 GM in DEXTROSE 5%-WATER - 50 ML IVPB SCH ×3 (04:30→17:08)
[2023-06-29] MEDS: VANCOMYCIN/WATER FOR INJ (PEG) 1,000 MG/200 ML BAG IVPB SCH ×2 (05:17→17:08)
[2023-06-29 06:19] LABS: HEMATOCRIT 33.2 % (32.4-45.2); HEMOGLOBIN 11.2 GM/dL (10.7-15.3); MCH 32.6 pg (25.7-33.7); MCHC 33.8 g/dl (32.0-36.0); MEAN CELL VOLUME 96.3 fl (80-96); MEAN PLT VOLUME 8.7 fl (7.5-11.1); PLATELET COUNT 198 10^3/uL (134-434); RBC 3.45 M/mm3 (3.60-5.2); WHITE BLOOD COUNT 27.3 K/mm3 (4.0-10.0)
[2023-06-29 06:35] LABS: POTASSIUM 3.9 mmol/L (3.5-5.1)
[2023-06-29 06:37] LABS: ALBUMIN 2.6 g/dl (3.4-5.0); CALCIUM 7.9 mg/dL (8.5-10.1)
[2023-06-29 06:38] LABS: BLOOD UREA NITROGEN 13.7 mg/dL (7-18); MAGNESIUM 1.9 mg/dL (1.8-2.4)
[2023-06-29 06:40] LABS: CREATININE 0.5 mg/dL (0.55-1.3); PHOSPHOROUS 4.1 mg/dL (2.5-4.9)
[2023-06-29 06:42] LABS: BILIRUBIN,TOTAL 0.2 mg/dL (0.2-1); TOT PROT 5.5 g/dl (6.4-8.2)
[2023-06-29 06:55] LABS: ARTERIAL BLD GAS O2 SATURATION 96.9 % (95-98); ARTERIAL BLOOD GAS BASE EXCESS -2.4 mmol/L (-2-2); ARTERIAL BLOOD GAS PO2 93.2 mmHg (80-100); ARTERIAL BLOOD GAS pH 7.367 (7.350-7.450)
[2023-06-29 07:04] LABS: ALLENS TEST POSITIVE
[2023-06-29 07:05] LABS: BG HCT QNS % (32.4-45.2); PT'S TEMP 96.4; VENT MODE S/T; VENT RATE 12
[2023-06-29] MEDS: IPRATROPIUM BR 0.02% 0.5 MG/2.5 ML VIAL.NEB. NEB SCH ×4 (08:25→21:59)
[2023-06-29 08:32] LABS: ANISOCYTOSIS 0; MACROCYTOSIS 0
[2023-06-29] MEDS: levETIRAcetam 500 MG/5 ML INJECTION VIAL IVPB SCH ×2 (09:30→21:40)
[2023-06-29] MEDS: POLYETHYLENE GLYCOL (HEALTHYLAX) 3350 17 GM PACKET PO SCH ×2 (09:31→21:41)
[2023-06-29] MEDS: TOPIRAMATE 100 MG TABLET PO SCH ×2 (09:32→21:42)
[2023-06-29] MEDS: OXcarbazepine 150 MG TABLET (UD) PO SCH ×2 (09:33→21:42)
[2023-06-29] MEDS: HYDROCORTISONE SOD SUCCINATE 100 MG/2 ML VIAL IVPUSH SCH ×2 (11:59→17:09)
[2023-06-29 14:07] VITALS: BMI 34.6
[2023-06-29] MEDS: PANTOPRAZOLE SODIUM 40 MG VIAL IVPUSH SCH (17:08)
[2023-06-29] MEDS: NOREPINEPHRINE BITARTRATE/D5W 8 MG/250 ML BAG IVPB SCH (20:01)
[2023-06-29] MEDS ORDERED: SENNOSIDES 8.8 MG/5 ML SYRUP PO SCH (22:00)
[2023-06-30] MEDS: HYDROCORTISONE SOD SUCCINATE 100 MG/2 ML VIAL IVPUSH SCH ×2 (01:02→09:18)
[2023-06-30] MEDS ORDERED: PIPERACILLIN/TAZOB 3.375 GM 3.375 GM in DEXTROSE 5%-WATER - 50 ML IVPB SCH (02:00)
[2023-06-30] MEDS: PIPERACILLIN/TAZOB 3.375 GM 3.375 GM in DEXTROSE 5%-WATER - 50 ML IVPB SCH ×3 (02:42→17:45)
[2023-06-30] MEDS: VANCOMYCIN/WATER FOR INJ (PEG) 1,000 MG/200 ML BAG IVPB SCH ×2 (02:42→13:33)
[2023-06-30] MEDS ORDERED: VANCOMYCIN/WATER FOR INJ (PEG) 1,000 MG/200 ML BAG IVPB SCH (06:00)
[2023-06-30] MEDS: VASopressin 40 UNITS/100 ML BAG IV SCH (06:51)
[2023-06-30 07:29] LABS: HEMATOCRIT 24.4 % (32.4-45.2); HEMOGLOBIN 8.2 GM/dL (10.7-15.3); MCH 32.5 pg (25.7-33.7); MCHC 33.5 g/dl (32.0-36.0); MEAN PLT VOLUME 8.3 fl (7.5-11.1); PLATELET COUNT 128 10^3/uL (134-434); RBC 2.51 M/mm3 (3.60-5.2); WHITE BLOOD COUNT 11.2 K/mm3 (4.0-10.0)
[2023-06-30 07:44] LABS: POTASSIUM 3.4 mmol/L (3.5-5.1)
[2023-06-30 07:48] LABS: CALCIUM 8.4 mg/dL (8.5-10.1)
[2023-06-30 07:49] LABS: ALBUMIN 2.3 g/dl (3.4-5.0); BLOOD UREA NITROGEN 7.2 mg/dL (7-18); MAGNESIUM 1.7 mg/dL (1.8-2.4)
[2023-06-30 07:52] LABS: CREATININE 0.4 mg/dL (0.55-1.3)
[2023-06-30 07:53] LABS: BILIRUBIN,TOTAL 0.3 mg/dL (0.2-1); TOT PROT 5.3 g/dl (6.4-8.2)
[2023-06-30] MEDS: IPRATROPIUM BR 0.02% 0.5 MG/2.5 ML VIAL.NEB. NEB SCH (08:35)
[2023-06-30] MEDS: levETIRAcetam 500 MG/5 ML INJECTION VIAL IVPB SCH ×2 (09:17→22:06)
[2023-06-30] MEDS: POLYETHYLENE GLYCOL (HEALTHYLAX) 3350 17 GM PACKET PO SCH ×2 (09:18→22:06)
[2023-06-30] MEDS: TOPIRAMATE 100 MG TABLET PO SCH ×2 (09:19→22:07)
[2023-06-30] MEDS: OXcarbazepine 150 MG TABLET (UD) PO SCH (09:19)
[2023-06-30] MEDS ORDERED: ENOXAPARIN NA (PORCINE) 40 MG/0.4 ML DISP.SYRIN SQ SCH (10:00)
[2023-06-30] MEDS: PANTOPRAZOLE SODIUM 40 MG VIAL IVPUSH SCH (10:19)
[2023-06-30] MEDS: ALBUTEROL SO4 2.5/IPRATROPIUM 0.5 INH SOL 3 ML VIAL.NEB. NEB SCH ×3 (11:20→21:00)
[2023-06-30] MEDS ORDERED: MAGNESIUM SULF 50% (8.12 MEQ/2 ML-1 GM VIAL) IVPB ONE (14:30)
[2023-06-30] MEDS: SENNOSIDES 8.8 MG/5 ML SYRUP PO SCH (22:06)
[2023-06-30] MEDS: OXcarbazepine 300 MG/5 ML UNIT DOSE CUPS PO SCH (22:07)
[2023-07-01] MEDS: PIPERACILLIN/TAZOB 3.375 GM 3.375 GM in DEXTROSE 5%-WATER - 50 ML IVPB SCH ×3 (01:01→18:17)
[2023-07-01] MEDS: VANCOMYCIN/WATER FOR INJ (PEG) 1,000 MG/200 ML BAG IVPB SCH ×2 (01:01→14:04)
[2023-07-01 07:16] LABS: BASO % 0.1 % (0-2.0); EOS % 0.7 % (0-4.5); HEMATOCRIT 23.2 % (32.4-45.2); HEMOGLOBIN 7.8 GM/dL (10.7-15.3); LYMPH % 20.8 % (8-40); MCH 33.1 pg (25.7-33.7); MCHC 33.8 g/dl (32.0-36.0); MEAN CELL VOLUME 98.2 fl (80-96); MONO % 4.4 % (3.8-10.2); PLATELET COUNT 100 10^3/uL (134-434); RBC 2.36 M/mm3 (3.60-5.2); RDW 16.2 % (11.6-15.6); WHITE BLOOD COUNT 5.8 K/mm3 (4.0-10.0)
[2023-07-01 07:31] LABS: POTASSIUM 3.1 mmol/L (3.5-5.1)
[2023-07-01 07:34] LABS: CALCIUM 9.1 mg/dL (8.5-10.1)
[2023-07-01 07:35] LABS: ALBUMIN 2.5 g/dl (3.4-5.0); BLOOD UREA NITROGEN 9.1 mg/dL (7-18); MAGNESIUM 2.1 mg/dL (1.8-2.4)
[2023-07-01 07:38] LABS: CREATININE 0.3 mg/dL (0.55-1.3); PHOSPHOROUS 3.4 mg/dL (2.5-4.9)
[2023-07-01 07:41] LABS: BILIRUBIN,TOTAL 0.3 mg/dL (0.2-1); TOT PROT 5.4 g/dl (6.4-8.2)
[2023-07-01] MEDS: ALBUTEROL SO4 2.5/IPRATROPIUM 0.5 INH SOL 3 ML VIAL.NEB. NEB SCH ×4 (07:55→21:15)
[2023-07-01] MEDS ORDERED: POTASSIUM CHLORIDE ORAL LIQUID 20 MEQ/15 ML PO ONE (09:00)
[2023-07-01] MEDS: KCL 10 MEQ IVPB 10 MEQ/100 ML INFUS.BAG IVPB SCH ×3 (09:53→15:35)
[2023-07-01] MEDS: OXcarbazepine 300 MG/5 ML UNIT DOSE CUPS PO SCH ×2 (09:53→22:30)
[2023-07-01] MEDS: ENOXAPARIN NA (PORCINE) 40 MG/0.4 ML DISP.SYRIN SQ SCH (09:54)
[2023-07-01] MEDS: POLYETHYLENE GLYCOL (HEALTHYLAX) 3350 17 GM PACKET PO SCH ×2 (09:54→21:37)
[2023-07-01] MEDS: levETIRAcetam 500 MG/5 ML INJECTION VIAL IVPB SCH ×2 (09:55→21:36)
[2023-07-01] MEDS: PANTOPRAZOLE SODIUM 40 MG VIAL IVPUSH SCH (09:55)
[2023-07-01] MEDS: methylPREDNISolone NA SUCC 40 MG/1 ML VIAL IVPUSH SCH (09:58)
[2023-07-01] MEDS ORDERED: FLU VACCINE (FLULAVAL) PF 60 MCG/0.5 ML SYRINGE 2023-2024 IM ONE (10:00)
[2023-07-01] MEDS ORDERED: methylPREDNISolone NA SUCC 40 MG/1 ML VIAL IVPUSH SCH (10:00)
[2023-07-01] MEDS: TOPIRAMATE 100 MG TABLET PO SCH ×2 (11:00→21:38)
[2023-07-01] MEDS: SENNOSIDES 8.8 MG/5 ML SYRUP PO SCH (21:37)
[2023-07-02] MEDS: PIPERACILLIN/TAZOB 3.375 GM 3.375 GM in DEXTROSE 5%-WATER - 50 ML IVPB SCH ×3 (05:47→17:46)
[2023-07-02] MEDS: VANCOMYCIN/WATER FOR INJ (PEG) 1,000 MG/200 ML BAG IVPB SCH (05:53)
[2023-07-02 06:34] LABS: HEMOGLOBIN 7.9 GM/dL (10.7-15.3); MCH 32.6 pg (25.7-33.7); MCHC 32.9 g/dl (32.0-36.0); MEAN CELL VOLUME 99.2 fl (80-96); MEAN PLT VOLUME 8.4 fl (7.5-11.1); PLATELET COUNT 112 10^3/uL (134-434); RBC 2.42 M/mm3 (3.60-5.2); RDW 16.5 % (11.6-15.6); WHITE BLOOD COUNT 4.3 K/mm3 (4.0-10.0)
[2023-07-02 07:00] LABS: CHLORIDE 111 mmol/L (98-107); POTASSIUM 4.2 mmol/L (3.5-5.1); SODIUM 141 mmol/L (136-145)
[2023-07-02 07:02] LABS: ALBUMIN 2.7 g/dl (3.4-5.0); ANION GAP 4 mmol/L (4-13); BLOOD UREA NITROGEN 10.5 mg/dL (7-18); CALCIUM 9.4 mg/dL (8.5-10.1); CO2 26 mmol/L (21-32); GLUCOSE,RANDOM 107 mg/dL (74-106); MAGNESIUM 1.9 mg/dL (1.8-2.4)
[2023-07-02 07:05] LABS: CREATININE 0.3 mg/dL (0.55-1.3); PHOSPHOROUS 4.3 mg/dL (2.5-4.9); SGPT/ALT 233 U/L (13-61)
[2023-07-02 07:06] LABS: SGOT/AST 131 U/L (15-37)
[2023-07-02 07:07] LABS: BILIRUBIN,TOTAL 0.3 mg/dL (0.2-1); TOT PROT 5.8 g/dl (6.4-8.2)
[2023-07-02 07:10] LABS: ALK PHOS 239 U/L (45-117)
[2023-07-02] MEDS: ALBUTEROL SO4 2.5/IPRATROPIUM 0.5 INH SOL 3 ML VIAL.NEB. NEB SCH ×4 (08:44→20:30)
[2023-07-02] MEDS: levETIRAcetam 500 MG/5 ML INJECTION VIAL IVPB SCH ×2 (09:46→21:21)
[2023-07-02] MEDS: POLYETHYLENE GLYCOL (HEALTHYLAX) 3350 17 GM PACKET PO SCH ×2 (09:47→21:21)
[2023-07-02] MEDS: PANTOPRAZOLE SODIUM 40 MG VIAL IVPUSH SCH (09:47)
[2023-07-02] MEDS: methylPREDNISolone NA SUCC 40 MG/1 ML VIAL IVPUSH SCH (09:47)
[2023-07-02] MEDS: ENOXAPARIN NA (PORCINE) 40 MG/0.4 ML DISP.SYRIN SQ SCH (09:47)
[2023-07-02] MEDS: TOPIRAMATE 100 MG TABLET PO SCH ×2 (10:47→21:22)
[2023-07-02] MEDS: OXcarbazepine 300 MG/5 ML UNIT DOSE CUPS PO SCH ×2 (10:49→21:22)
[2023-07-02] MEDS: SENNOSIDES 8.8 MG/5 ML SYRUP PO SCH (21:21)
[2023-07-03] MEDS: PIPERACILLIN/TAZOB 3.375 GM 3.375 GM in DEXTROSE 5%-WATER - 50 ML IVPB SCH ×3 (01:25→17:42)
[2023-07-03 06:52] LABS: BASO % 0.4 % (0-2.0); EOS % 0.9 % (0-4.5); HEMATOCRIT 23.2 % (32.4-45.2); HEMOGLOBIN 7.8 GM/dL (10.7-15.3); LYMPH % 40.4 % (8-40); MCH 33.3 pg (25.7-33.7); MCHC 33.4 g/dl (32.0-36.0); MEAN CELL VOLUME 99.6 fl (80-96); MEAN PLT VOLUME 8.6 fl (7.5-11.1); MONO % 8.8 % (3.8-10.2); NEUT % 49.5 % (42.8-82.8); PLATELET COUNT 127 10^3/uL (134-434); RBC 2.33 M/mm3 (3.60-5.2); RDW 16.1 % (11.6-15.6); WHITE BLOOD COUNT 4.8 K/mm3 (4.0-10.0)
[2023-07-03 07:09] LABS: POTASSIUM 4.3 mmol/L (3.5-5.1)
[2023-07-03 07:11] LABS: ALBUMIN 2.5 g/dl (3.4-5.0); BLOOD UREA NITROGEN 10.8 mg/dL (7-18); CALCIUM 8.9 mg/dL (8.5-10.1)
[2023-07-03 07:14] LABS: CREATININE 0.3 mg/dL (0.55-1.3)
[2023-07-03 07:16] LABS: BILIRUBIN,TOTAL 0.2 mg/dL (0.2-1); TOT PROT 5.7 g/dl (6.4-8.2)
[2023-07-03] MEDS: ALBUTEROL SO4 2.5/IPRATROPIUM 0.5 INH SOL 3 ML VIAL.NEB. NEB SCH ×4 (07:50→19:20)
[2023-07-03] MEDS: ENOXAPARIN NA (PORCINE) 40 MG/0.4 ML DISP.SYRIN SQ SCH (09:56)
[2023-07-03] MEDS: POLYETHYLENE GLYCOL (HEALTHYLAX) 3350 17 GM PACKET PO SCH ×2 (09:56→21:41)
[2023-07-03] MEDS: methylPREDNISolone NA SUCC 40 MG/1 ML VIAL IVPUSH SCH (09:57)
[2023-07-03] MEDS: levETIRAcetam 500 MG/5 ML INJECTION VIAL IVPB SCH ×2 (09:57→21:43)
[2023-07-03] MEDS: PANTOPRAZOLE SODIUM 40 MG VIAL IVPUSH SCH (09:57)
[2023-07-03] MEDS: TOPIRAMATE 100 MG TABLET PO SCH ×2 (09:57→21:43)
[2023-07-03] MEDS: OXcarbazepine 300 MG/5 ML UNIT DOSE CUPS PO SCH ×2 (10:09→21:42)
[2023-07-03] MEDS: SENNOSIDES 8.8 MG/5 ML SYRUP PO SCH (21:41)
[2023-07-04] MEDS: PIPERACILLIN/TAZOB 3.375 GM 3.375 GM in DEXTROSE 5%-WATER - 50 ML IVPB SCH ×3 (02:14→17:23)
[2023-07-04 07:31] LABS: BASO % 0.3 % (0-2.0); EOS % 0.9 % (0-4.5); HEMATOCRIT 23.5 % (32.4-45.2); HEMOGLOBIN 7.8 GM/dL (10.7-15.3); LYMPH % 38.3 % (8-40); MCH 33.1 pg (25.7-33.7); MCHC 33.3 g/dl (32.0-36.0); MEAN CELL VOLUME 99.4 fl (80-96); MEAN PLT VOLUME 8.5 fl (7.5-11.1); MONO % 8.7 % (3.8-10.2); NEUT % 51.8 % (42.8-82.8); PLATELET COUNT 137 10^3/uL (134-434); RBC 2.36 M/mm3 (3.60-5.2); RDW 15.6 % (11.6-15.6); WHITE BLOOD COUNT 5.3 K/mm3 (4.0-10.0)
[2023-07-04] MEDS: ALBUTEROL SO4 2.5/IPRATROPIUM 0.5 INH SOL 3 ML VIAL.NEB. NEB SCH ×4 (07:40→20:13)
[2023-07-04 07:52] LABS: ALBUMIN 2.5 g/dl (3.4-5.0)
[2023-07-04 07:54] LABS: CALCIUM 8.6 mg/dL (8.5-10.1)
[2023-07-04 07:55] LABS: BLOOD UREA NITROGEN 9.3 mg/dL (7-18); MAGNESIUM 1.9 mg/dL (1.8-2.4); PHOSPHOROUS 4.5 mg/dL (2.5-4.9)
[2023-07-04 07:56] LABS: CREATININE 0.4 mg/dL (0.55-1.3)
[2023-07-04 07:57] LABS: BILIRUBIN,TOTAL 0.3 mg/dL (0.2-1); TOT PROT 5.8 g/dl (6.4-8.2)
[2023-07-04] MEDS: POLYETHYLENE GLYCOL (HEALTHYLAX) 3350 17 GM PACKET PO SCH ×2 (09:06→21:24)
[2023-07-04] MEDS: levETIRAcetam 500 MG/5 ML INJECTION VIAL IVPB SCH ×2 (09:09→21:27)
[2023-07-04] MEDS: methylPREDNISolone NA SUCC 40 MG/1 ML VIAL IVPUSH SCH (09:10)
[2023-07-04] MEDS: PANTOPRAZOLE SODIUM 40 MG VIAL IVPUSH SCH (09:11)
[2023-07-04] MEDS: ENOXAPARIN NA (PORCINE) 40 MG/0.4 ML DISP.SYRIN SQ SCH (09:14)
[2023-07-04] MEDS: TOPIRAMATE 100 MG TABLET PO SCH ×2 (09:15→21:29)
[2023-07-04] MEDS: OXcarbazepine 300 MG/5 ML UNIT DOSE CUPS PO SCH ×2 (09:16→21:29)
[2023-07-04] MEDS: SENNOSIDES 8.8 MG/5 ML SYRUP PO SCH (21:29)
[2023-07-05] MEDS: ALBUTEROL SO4 2.5/IPRATROPIUM 0.5 INH SOL 3 ML VIAL.NEB. NEB SCH ×4 (08:30→20:05)
[2023-07-05] MEDS: ENOXAPARIN NA (PORCINE) 40 MG/0.4 ML DISP.SYRIN SQ SCH (10:31)
[2023-07-05] MEDS: levETIRAcetam 500 MG/5 ML INJECTION VIAL IVPB SCH ×2 (10:36→21:11)
[2023-07-05] MEDS: methylPREDNISolone NA SUCC 40 MG/1 ML VIAL IVPUSH SCH (10:37)
[2023-07-05] MEDS: PANTOPRAZOLE SODIUM 40 MG VIAL IVPUSH SCH (10:37)
[2023-07-05] MEDS: POLYETHYLENE GLYCOL (HEALTHYLAX) 3350 17 GM PACKET PO SCH ×2 (10:37→21:10)
[2023-07-05] MEDS: OXcarbazepine 300 MG/5 ML UNIT DOSE CUPS PO SCH ×2 (10:38→21:11)
[2023-07-05 11:36] LABS: HEMATOCRIT 23.7 % (32.4-45.2); HEMOGLOBIN 7.7 GM/dL (10.7-15.3); MCH 32.8 pg (25.7-33.7); MCHC 32.6 g/dl (32.0-36.0); MEAN CELL VOLUME 100.7 fl (80-96); RBC 2.35 M/mm3 (3.60-5.2); RDW 15.9 % (11.6-15.6)
[2023-07-05 11:39] LABS: POTASSIUM 3.8 mmol/L (3.5-5.1)
[2023-07-05 11:43] LABS: ALBUMIN 2.5 g/dl (3.4-5.0); BLOOD UREA NITROGEN 8.8 mg/dL (7-18); CALCIUM 8.9 mg/dL (8.5-10.1); MAGNESIUM 1.7 mg/dL (1.8-2.4)
[2023-07-05 11:46] LABS: CREATININE 0.3 mg/dL (0.55-1.3)
[2023-07-05 11:48] LABS: BILIRUBIN,TOTAL 0.2 mg/dL (0.2-1); TOT PROT 5.5 g/dl (6.4-8.2)
[2023-07-05 12:37] LABS: WHITE BLOOD COUNT 4.7 K/mm3 (4.0-10.0)
[2023-07-05 12:38] LABS: ANISOCYTOSIS 2+; MACROCYTOSIS 0
[2023-07-05 12:41] LABS: MEAN PLT VOLUME 8.8 fl (7.5-11.1); PLATELET COUNT 99 10^3/uL (134-434)
[2023-07-05] MEDS ORDERED: MAGNESIUM SULF 50% (8.12 MEQ/2 ML-1 GM VIAL) IVPB ONE (12:51)
[2023-07-05] MEDS: TOPIRAMATE 100 MG TABLET PO SCH ×2 (12:59→21:11)
[2023-07-05] MEDS ORDERED: TUBE FEED DECLOGGING SOLUTION 12,000 UNITS GT ONE ×2 (15:00→21:30)
[2023-07-05] MEDS ORDERED: LACTATED RINGERS SOLUTION 1,000 ML/1,000 ML INFUS.BAG IV SCH (15:15)
[2023-07-05] MEDS: SENNOSIDES 8.8 MG/5 ML SYRUP PO SCH (21:10)
[2023-07-06 07:21] LABS: HEMATOCRIT 25.7 % (32.4-45.2); HEMOGLOBIN 8.5 GM/dL (10.7-15.3); MCH 33.2 pg (25.7-33.7); MCHC 33.1 g/dl (32.0-36.0); MEAN CELL VOLUME 100.2 fl (80-96); MEAN PLT VOLUME 7.6 fl (7.5-11.1); PLATELET COUNT 204 10^3/uL (134-434); RBC 2.56 M/mm3 (3.60-5.2); RDW 15.5 % (11.6-15.6); WHITE BLOOD COUNT 4.7 K/mm3 (4.0-10.0)
[2023-07-06 07:42] LABS: POTASSIUM 3.8 mmol/L (3.5-5.1)
[2023-07-06 07:47] LABS: BLOOD UREA NITROGEN 6.5 mg/dL (7-18)
[2023-07-06 07:48] LABS: ALBUMIN 2.7 g/dl (3.4-5.0); CALCIUM 8.9 mg/dL (8.5-10.1); MAGNESIUM 1.9 mg/dL (1.8-2.4)
[2023-07-06] MEDS: ALBUTEROL SO4 2.5/IPRATROPIUM 0.5 INH SOL 3 ML VIAL.NEB. NEB SCH ×4 (07:50→20:05)
[2023-07-06 07:51] LABS: CREATININE 0.3 mg/dL (0.55-1.3); PHOSPHOROUS 3.9 mg/dL (2.5-4.9)
[2023-07-06 07:52] LABS: BILIRUBIN,TOTAL 0.4 mg/dL (0.2-1); TOT PROT 5.9 g/dl (6.4-8.2)
[2023-07-06] MEDS: OXcarbazepine 300 MG/5 ML UNIT DOSE CUPS PO SCH ×2 (10:22→21:00)
[2023-07-06] MEDS: levETIRAcetam 500 MG/5 ML INJECTION VIAL IVPB SCH ×2 (10:23→21:00)
[2023-07-06] MEDS: methylPREDNISolone NA SUCC 40 MG/1 ML VIAL IVPUSH SCH (10:26)
[2023-07-06] MEDS: PANTOPRAZOLE SODIUM 40 MG VIAL IVPUSH SCH (10:27)
[2023-07-06] MEDS: ENOXAPARIN NA (PORCINE) 40 MG/0.4 ML DISP.SYRIN SQ SCH (10:27)
[2023-07-06] MEDS: TOPIRAMATE 100 MG TABLET PO SCH ×2 (10:28→21:00)
[2023-07-06] MEDS: POLYETHYLENE GLYCOL (HEALTHYLAX) 3350 17 GM PACKET PO SCH ×2 (10:29→21:01)
[2023-07-06] MEDS: SENNOSIDES 8.8 MG/5 ML SYRUP PO SCH (21:00)
[2023-07-07 07:28] LABS: BASO % 0.3 % (0-2.0); EOS % 1.3 % (0-4.5); HEMATOCRIT 22.8 % (32.4-45.2); HEMOGLOBIN 7.7 GM/dL (10.7-15.3); LYMPH % 46.2 % (8-40); MCHC 33.9 g/dl (32.0-36.0); MEAN CELL VOLUME 100.1 fl (80-96); MEAN PLT VOLUME 7.7 fl (7.5-11.1); NEUT % 42.2 % (42.8-82.8); PLATELET COUNT 197 10^3/uL (134-434); RBC 2.27 M/mm3 (3.60-5.2); RDW 15.9 % (11.6-15.6)
[2023-07-07] MEDS: ALBUTEROL SO4 2.5/IPRATROPIUM 0.5 INH SOL 3 ML VIAL.NEB. NEB SCH ×4 (07:40→20:05)
[2023-07-07] MEDS ORDERED: DOCUSATE NA 100 MG/10 ML UNIT-DOSE CUPS PO PRN (07:43)
[2023-07-07 07:47] LABS: POTASSIUM 3.6 mmol/L (3.5-5.1)
[2023-07-07] MEDS ORDERED: DOCUSATE NA 100 MG/10 ML UNIT-DOSE CUPS GT PRN (07:49)
[2023-07-07 07:58] LABS: CALCIUM 8.5 mg/dL (8.5-10.1)
[2023-07-07 07:59] LABS: ALBUMIN 2.6 g/dl (3.4-5.0)
[2023-07-07 08:02] LABS: CREATININE 0.3 mg/dL (0.55-1.3); PHOSPHOROUS 4.5 mg/dL (2.5-4.9)
[2023-07-07 08:04] LABS: BILIRUBIN,TOTAL 0.2 mg/dL (0.2-1); TOT PROT 5.7 g/dl (6.4-8.2)
[2023-07-07 08:13] LABS: MAGNESIUM 1.6 mg/dL (1.8-2.4)
[2023-07-07] MEDS: levETIRAcetam 500 MG/5 ML INJECTION VIAL IVPB SCH ×2 (09:26→21:01)
[2023-07-07] MEDS: ENOXAPARIN NA (PORCINE) 40 MG/0.4 ML DISP.SYRIN SQ SCH (09:26)
[2023-07-07] MEDS: PANTOPRAZOLE SODIUM 40 MG VIAL IVPUSH SCH (09:26)
[2023-07-07] MEDS: methylPREDNISolone NA SUCC 40 MG/1 ML VIAL IVPUSH SCH (09:26)
[2023-07-07] MEDS: OXcarbazepine 300 MG/5 ML UNIT DOSE CUPS PO SCH ×2 (09:26→21:01)
[2023-07-07] MEDS: TOPIRAMATE 100 MG TABLET PO SCH ×2 (09:28→21:01)
[2023-07-07] MEDS ORDERED: MAGNESIUM 2GM/50ML STERILE WATER IVPB IVPB ONE (09:30)
[2023-07-07] MEDS: SENNOSIDES 8.8 MG/5 ML SYRUP PO SCH (21:01)
[2023-07-08] MEDS: ALBUTEROL SO4 2.5/IPRATROPIUM 0.5 INH SOL 3 ML VIAL.NEB. NEB SCH ×4 (07:40→20:05)
[2023-07-08 08:11] LABS: HEMATOCRIT 23.8 % (32.4-45.2); HEMOGLOBIN 7.7 GM/dL (10.7-15.3); MCH 32.7 pg (25.7-33.7); MCHC 32.4 g/dl (32.0-36.0); MEAN PLT VOLUME 7.6 fl (7.5-11.1); PLATELET COUNT 251 10^3/uL (134-434); RBC 2.36 M/mm3 (3.60-5.2); RDW 15.9 % (11.6-15.6); WHITE BLOOD COUNT 4.5 K/mm3 (4.0-10.0)
[2023-07-08 08:32] LABS: POTASSIUM 3.6 mmol/L (3.5-5.1)
[2023-07-08 08:41] LABS: CALCIUM 8.5 mg/dL (8.5-10.1)
[2023-07-08 08:42] LABS: ALBUMIN 2.6 g/dl (3.4-5.0); BLOOD UREA NITROGEN 8.1 mg/dL (7-18)
[2023-07-08 08:45] LABS: CREATININE 0.4 mg/dL (0.55-1.3); PHOSPHOROUS 4.4 mg/dL (2.5-4.9)
[2023-07-08 08:47] LABS: BILIRUBIN,TOTAL 0.2 mg/dL (0.2-1); TOT PROT 5.7 g/dl (6.4-8.2)
[2023-07-08] MEDS: levETIRAcetam 500 MG/5 ML INJECTION VIAL IVPB SCH ×2 (09:04→21:47)
[2023-07-08] MEDS: OXcarbazepine 300 MG/5 ML UNIT DOSE CUPS PO SCH ×2 (09:05→21:50)
[2023-07-08] MEDS: TOPIRAMATE 100 MG TABLET PO SCH ×2 (09:06→21:49)
[2023-07-08] MEDS: PANTOPRAZOLE SODIUM 40 MG VIAL IVPUSH SCH (09:06)
[2023-07-08] MEDS: SENNOSIDES 8.8 MG/5 ML SYRUP PO SCH (21:49)
[2023-07-09 07:42] LABS: BASO % 0.4 % (0-2.0); EOS % 0.8 % (0-4.5); HEMATOCRIT 25.4 % (32.4-45.2); HEMOGLOBIN 8.1 GM/dL (10.7-15.3); LYMPH % 41.2 % (8-40); MCH 32.4 pg (25.7-33.7); MEAN CELL VOLUME 101.2 fl (80-96); MEAN PLT VOLUME 7.5 fl (7.5-11.1); MONO % 9.8 % (3.8-10.2); NEUT % 47.8 % (42.8-82.8); PLATELET COUNT 284 10^3/uL (134-434); RBC 2.51 M/mm3 (3.60-5.2); RDW 15.5 % (11.6-15.6); WHITE BLOOD COUNT 3.8 K/mm3 (4.0-10.0)
[2023-07-09] MEDS: ALBUTEROL SO4 2.5/IPRATROPIUM 0.5 INH SOL 3 ML VIAL.NEB. NEB SCH ×3 (07:45→15:40)
[2023-07-09 08:02] LABS: ALBUMIN 2.8 g/dl (3.4-5.0); BLOOD UREA NITROGEN 8.5 mg/dL (7-18); CALCIUM 8.8 mg/dL (8.5-10.1); MAGNESIUM 1.7 mg/dL (1.8-2.4)
[2023-07-09 08:05] LABS: CREATININE 0.3 mg/dL (0.55-1.3); PHOSPHOROUS 4.5 mg/dL (2.5-4.9)
[2023-07-09 08:06] LABS: BILIRUBIN,TOTAL 0.2 mg/dL (0.2-1); TOT PROT 5.9 g/dl (6.4-8.2)
[2023-07-09] MEDS: PANTOPRAZOLE SODIUM 40 MG VIAL IVPUSH SCH (10:53)
[2023-07-09] MEDS: OXcarbazepine 300 MG/5 ML UNIT DOSE CUPS PO SCH ×2 (10:53→21:25)
[2023-07-09] MEDS: TOPIRAMATE 100 MG TABLET PO SCH ×2 (10:54→21:24)
[2023-07-09] MEDS: levETIRAcetam 500 MG/5 ML INJECTION VIAL IVPB SCH ×2 (10:54→21:19)
[2023-07-09] MEDS: SENNOSIDES 8.8 MG/5 ML SYRUP PO SCH (21:22)
[2023-07-10 07:30] LABS: BASO % 0.6 % (0-2.0); HEMOGLOBIN 8.8 GM/dL (10.7-15.3); LYMPH % 36.7 % (8-40); MCHC 32.7 g/dl (32.0-36.0); MEAN CELL VOLUME 100.8 fl (80-96); MEAN PLT VOLUME 7.5 fl (7.5-11.1); MONO % 9.6 % (3.8-10.2); NEUT % 52.1 % (42.8-82.8); PLATELET COUNT 321 10^3/uL (134-434); RBC 2.68 M/mm3 (3.60-5.2); RDW 16.1 % (11.6-15.6); WHITE BLOOD COUNT 4.1 K/mm3 (4.0-10.0)
[2023-07-10 07:53] LABS: POTASSIUM 3.9 mmol/L (3.5-5.1)
[2023-07-10 07:55] LABS: ALBUMIN 2.7 g/dl (3.4-5.0); BLOOD UREA NITROGEN 9.3 mg/dL (7-18); CALCIUM 8.4 mg/dL (8.5-10.1); MAGNESIUM 1.9 mg/dL (1.8-2.4)
[2023-07-10 07:58] LABS: CREATININE 0.4 mg/dL (0.55-1.3); PHOSPHOROUS 4.6 mg/dL (2.5-4.9)
[2023-07-10 08:00] LABS: BILIRUBIN,TOTAL 0.2 mg/dL (0.2-1)
[2023-07-10] MEDS: levETIRAcetam 500 MG/5 ML INJECTION VIAL IVPB SCH ×2 (10:55→21:21)
[2023-07-10] MEDS: PANTOPRAZOLE SODIUM 40 MG VIAL IVPUSH SCH (10:55)
[2023-07-10] MEDS: TOPIRAMATE 100 MG TABLET PO SCH ×2 (10:56→21:22)
[2023-07-10] MEDS: OXcarbazepine 300 MG/5 ML UNIT DOSE CUPS PO SCH ×2 (10:57→21:22)
[2023-07-10] MEDS: SENNOSIDES 8.8 MG/5 ML SYRUP PO SCH (21:21)
[2023-07-11 07:03] LABS: BASO % 0.3 % (0-2.0); EOS % 0.8 % (0-4.5); HEMATOCRIT 26.3 % (32.4-45.2); HEMOGLOBIN 8.7 GM/dL (10.7-15.3); LYMPH % 25.1 % (8-40); MCH 33.4 pg (25.7-33.7); MCHC 33.2 g/dl (32.0-36.0); MEAN CELL VOLUME 100.7 fl (80-96); MEAN PLT VOLUME 7.2 fl (7.5-11.1); MONO % 7.9 % (3.8-10.2); NEUT % 65.9 % (42.8-82.8); PLATELET COUNT 371 10^3/uL (134-434); RBC 2.61 M/mm3 (3.60-5.2); RDW 16.3 % (11.6-15.6); WHITE BLOOD COUNT 4.8 K/mm3 (4.0-10.0)
[2023-07-11 07:13] LABS: POTASSIUM 4.5 mmol/L (3.5-5.1)
[2023-07-11 07:14] LABS: ALBUMIN 2.8 g/dl (3.4-5.0); BLOOD UREA NITROGEN 11.2 mg/dL (7-18); CALCIUM 8.9 mg/dL (8.5-10.1); MAGNESIUM 1.5 mg/dL (1.8-2.4)
[2023-07-11 07:18] LABS: CREATININE 0.4 mg/dL (0.55-1.3); PHOSPHOROUS 4.8 mg/dL (2.5-4.9)
[2023-07-11 07:20] LABS: BILIRUBIN,TOTAL 0.2 mg/dL (0.2-1); TOT PROT 5.9 g/dl (6.4-8.2)
[2023-07-11] MEDS: ENOXAPARIN NA (PORCINE) 40 MG/0.4 ML DISP.SYRIN SQ SCH (09:17)
[2023-07-11] MEDS: TOPIRAMATE 100 MG TABLET PO SCH ×2 (09:18→21:26)
[2023-07-11] MEDS: OXcarbazepine 300 MG/5 ML UNIT DOSE CUPS PO SCH ×2 (09:18→21:26)
[2023-07-11] MEDS: PANTOPRAZOLE SODIUM 40 MG VIAL IVPUSH SCH (09:19)
[2023-07-11] MEDS: levETIRAcetam 500 MG/5 ML INJECTION VIAL IVPB SCH ×2 (09:19→21:25)
[2023-07-11] MEDS ORDERED: DEXTROSE 50%-WATER 25 GM/50 ML DISP.SYRIN ONE (11:28)
[2023-07-11] MEDS ORDERED: CALCIUM GLUCONATE 10% - 1,000 MG/10 ML VIAL ONE (11:36)
[2023-07-11] MEDS ORDERED: ALBUTEROL SO4 2.5/IPRATROPIUM 0.5 INH SOL 3 ML VIAL.NEB. NEB ONE (11:36)
[2023-07-11] MEDS ORDERED: ALBUTEROL SO4 0.083% IH SOL 2.5 MG/3 ML VIAL.NEB. NEB ONE (11:36)
[2023-07-11] MEDS ORDERED: ALBUTEROL SO4 0.5 % INH SOLN 2.5 MG/0.5 ML VIAL.NEB. NEB ONE ×2 (11:36→11:37)
[2023-07-11] MEDS: SENNOSIDES 8.8 MG/5 ML SYRUP PO SCH (21:26)
[2023-07-12] MEDS: levETIRAcetam 500 MG/5 ML INJECTION VIAL IVPB SCH ×2 (09:07→21:12)
[2023-07-12] MEDS: PANTOPRAZOLE SODIUM 40 MG VIAL IVPUSH SCH (09:07)
[2023-07-12] MEDS: TOPIRAMATE 100 MG TABLET PO SCH ×2 (09:07→21:12)
[2023-07-12] MEDS: OXcarbazepine 300 MG/5 ML UNIT DOSE CUPS PO SCH ×2 (09:08→21:12)
[2023-07-12] MEDS: ENOXAPARIN NA (PORCINE) 40 MG/0.4 ML DISP.SYRIN SQ SCH (09:12)
[2023-07-12] MEDS ORDERED: TUBE FEED DECLOGGING SOLUTION 12,000 UNITS GT ONE (20:00)
[2023-07-12] MEDS: SENNOSIDES 8.8 MG/5 ML SYRUP PO SCH (21:12)
[2023-07-13] MEDS ORDERED: LACTATED RINGERS SOLUTION 1,000 ML/1,000 ML INFUS.BAG IV STA (02:40)
[2023-07-13 07:07] LABS: BASO % 0.9 % (0-2.0); EOS % 0.8 % (0-4.5); HEMATOCRIT 27.4 % (32.4-45.2); HEMOGLOBIN 9.1 GM/dL (10.7-15.3); LYMPH % 33.8 % (8-40); MCH 32.9 pg (25.7-33.7); MCHC 33.2 g/dl (32.0-36.0); MEAN CELL VOLUME 99.1 fl (80-96); MEAN PLT VOLUME 7.2 fl (7.5-11.1); MONO % 11.2 % (3.8-10.2); NEUT % 53.3 % (42.8-82.8); PLATELET COUNT 346 10^3/uL (134-434); RBC 2.76 M/mm3 (3.60-5.2); WHITE BLOOD COUNT 2.8 K/mm3 (4.0-10.0)
[2023-07-13 07:40] LABS: ALBUMIN 2.8 g/dl (3.4-5.0); BLOOD UREA NITROGEN 9.4 mg/dL (7-18); CALCIUM 8.5 mg/dL (8.5-10.1)
[2023-07-13 07:41] LABS: MAGNESIUM 1.7 mg/dL (1.8-2.4)
[2023-07-13 07:44] LABS: CREATININE 0.4 mg/dL (0.55-1.3); PHOSPHOROUS 4.4 mg/dL (2.5-4.9)
[2023-07-13 07:46] LABS: BILIRUBIN,TOTAL 0.2 mg/dL (0.2-1); TOT PROT 6.1 g/dl (6.4-8.2)
[2023-07-13] MEDS ORDERED: MAGNESIUM SULF 50% (8.12 MEQ/2 ML-1 GM VIAL) IVPB ONE (07:55)
[2023-07-13] MEDS: PANTOPRAZOLE SODIUM 40 MG VIAL IVPUSH SCH (09:59)
[2023-07-13] MEDS: ENOXAPARIN NA (PORCINE) 40 MG/0.4 ML DISP.SYRIN SQ SCH (09:59)
[2023-07-13] MEDS: levETIRAcetam 500 MG/5 ML INJECTION VIAL IVPB SCH (09:59)
[2023-07-13] MEDS: OXcarbazepine 300 MG/5 ML UNIT DOSE CUPS PO SCH (10:19)
[2023-07-13] MEDS: TOPIRAMATE 100 MG TABLET PO SCH (10:19)
[2023-07-13 14:18] VITALS: BP 108/72
[2023-07-13 15:26] VITALS: PULSE 62; RESP 20; TEMP 96.9
== END 2023-07-13 16:20 | DRG 871 ==
LOC: JER 14:46 → JERBED 18:34 → JICU 06-29 00:43 → J2W 06-30 15:44
PROVIDERS: ADMIT Internal Medicine Pulmonary Disease; ATTEND Internal Medicine
DX: A41.9 Sepsis, unspecified organism (principal); J18.9 Pneumonia, unspecified organism; R65.21 Severe sepsis with septic shock; J96.01 Acute respiratory failure with hypoxia; J96.02 Acute respiratory failure with hypercapnia; E87.1 Hypo-osmolality and hyponatremia; G80.8 Other cerebral palsy; G40.909 Epilepsy, unspecified, not intractable, without status epilepticus; R74.01 Elevation of levels of liver transaminase levels
CPT/HCPCS: 0241U-QW; 36415; 36600; 71045-TC-FY; 71260-TC; 74018-TC-FY; 74177-TC; 80048; 80053; 81003; 82271; 82533; 82607; 82746; 82803; 83605; 83735; 83880; 84100; 84439; 84443; 84484; 85025; 85027; 86850; 86900; 86901; 87040; 87070; 87081; 87086; 87186; 87205; 87635; 93005; 93010; 94640; 94660; 99285-25; G0480; J3490; Q9967

== ENCOUNTER 2023-08-01 10:21 | Inpatient (IN) | payer OTHER ==
[2023-08-01 11:45] LABS: BASO % 0.2 % (0-2.0); EOS % 0.1 % (0-4.5); LYMPH % 9.4 % (8-40); MCH 33.1 pg (25.7-33.7); MCHC 34.5 g/dl (32.0-36.0); MEAN CELL VOLUME 95.9 fl (80-96); MONO % 5.5 % (3.8-10.2); NEUT % 84.8 % (42.8-82.8); PLATELET COUNT 140 10^3/uL (134-434); RBC 3.02 M/mm3 (3.60-5.2); RDW 15.6 % (11.6-15.6); WHITE BLOOD COUNT 8.6 K/mm3 (4.0-10.0)
[2023-08-01 11:46] LABS: VENOUS BASE EXCESS -2.6 mmol/L (-2-2); VENOUS PCO2 39.6 mmHg (38-52); VENOUS PH 7.371 (7.310-7.410)
[2023-08-01 11:53] LABS: INR 1.1 (0.83-1.09); PROTHROMBIN TIME (PATIENT) 12.8 SEC (9.7-13.0)
[2023-08-01 11:56] LABS: ACTIVATED PTT 33.1 SECONDS (25.2-36.5)
[2023-08-01 12:07] LABS: POTASSIUM 4.1 mmol/L (3.5-5.1)
[2023-08-01 12:09] LABS: CALCIUM 9.2 mg/dL (8.5-10.1)
[2023-08-01] MEDS ORDERED: VANCOMYCIN 1 GRAM (PRE-DOCKED) 1,000 MG/250 ML BAG IVPB ONE (12:09)
[2023-08-01] MEDS ORDERED: ACETAMINOPHEN INJECTION 100 ML IVPB ONE (12:09)
[2023-08-01] MEDS ORDERED: PIPERACILLIN/TAZOB 3.375 GM 3.375 GM/50 ML BAG IVPB ONE (12:10)
[2023-08-01 12:11] LABS: ALBUMIN 3.1 g/dl (3.4-5.0); BLOOD UREA NITROGEN 5.8 mg/dL (7-18)
[2023-08-01 12:13] LABS: CREATININE 0.3 mg/dL (0.55-1.3)
[2023-08-01 12:14] LABS: BILIRUBIN,TOTAL 0.4 mg/dL (0.2-1)
[2023-08-01] MEDS: ACETAMINOPHEN 1000 MG/100 ML BAG IVPB ONE (12:17)
[2023-08-01] MEDS: PIPERACILLIN/TAZOB 3.375 GM 3.375 GM in DEXTROSE 5%-WATER - 50 ML IVPB ONE (12:17)
[2023-08-01] MEDS: SODIUM CHLORIDE IV ONE (12:18)
[2023-08-01] MEDS: VANCOMYCIN 1,000 MG in DEXTROSE 5%-WATER - 250 ML IVPB ONE (12:37)
[2023-08-01] MEDS ORDERED: methylPREDNISolone NA SUCC 125 MG/2 ML VIAL ONE (13:20)
[2023-08-01] MEDS ORDERED: EPINEPHrine/PF 1 MG/1 ML (1:1,000) AMPULE ONE (13:27)
[2023-08-01] MEDS: EPINEPHrine/PF 1 MG/1 ML (1:1,000) AMPULE IM ONE (13:34)
[2023-08-01] MEDS: methylPREDNISolone NA SUCC 125 MG/2 ML VIAL IVPUSH ONE (13:35)
[2023-08-01] MEDS: SODIUM CHLORIDE 0.9% 500 ML INFUS.BAG IV ONE (14:06)
[2023-08-01] MEDS: LACTATED RINGERS SOLUTION 1000 ML INFUS.BAG IV ONE (14:07)
[2023-08-01 16:44] LABS: URINE APPEARANCE CLEAR; URINE BILIRUBIN NEGATIVE (NEGATIVE); URINE COLOR YELLOW; URINE GLUCOSE (UA) NEGATIVE (NEGATIVE); URINE KETONE NEGATIVE (NEGATIVE); URINE LEUK ESTERASE NEGATIVE (NEGATIVE); URINE NITRITE NEGATIVE (NEGATIVE); URINE PROTEIN TRACE (NEGATIVE); URINE UROBILINOGEN 0.2 mg/dL (0.2-1.0)
[2023-08-01] MEDS ORDERED: BISACODYL 10 MG SUPP.RECT RC PRN (16:55)
[2023-08-01] MEDS ORDERED: MAGNESIUM HYDROX GT PRN (16:55)
[2023-08-01] MEDS ORDERED: [UNRECOGNIZED DRUG - OTHER] GT PRN (16:55)
[2023-08-01] MEDS ORDERED: SIMETHICONE 40 MG/0.6 ML BOTTLE GT PRN (16:55)
[2023-08-01] MEDS ORDERED: SODIUM CHLORIDE NASAL SPRAY 44 ML BOTTLE NS PRN (16:55)
[2023-08-01] MEDS ORDERED: DIPHENHYDRAMINE HCL GT PRN (16:55)
[2023-08-01] MEDS ORDERED: CALCIUM CARB GT PRN (16:55)
[2023-08-01] MEDS ORDERED: BACITRACIN ZINC 15 GM TUBE TOPICAL OINTMENT TP PRN (16:55)
[2023-08-01] MEDS ORDERED: PATIENT'S OWN MEDICATION (NON-FORMULARY) (Diazepam [Valtoco] 10 MG/0.1 ML Spray) NS PRN (16:56)
[2023-08-01] MEDS ORDERED: guaiFENesin 200 MG/10 ML 10 ML UNIT-DOSE CUPS GT PRN (16:56)
[2023-08-01] MEDS ORDERED: ACETAMINOPHEN 160 MG/5 ML GT PRN (16:56)
[2023-08-01] MEDS ORDERED: ALBUTEROL SO4 0.083% IH SOL 2.5 MG/3 ML VIAL.NEB. NEB PRN (16:56)
[2023-08-01] MEDS ORDERED: diphenhydrAMINE HCL 12.5 MG/5 ML UNIT-DOSE CUPS GT PRN (17:04)
[2023-08-01] MEDS ORDERED: ACETAMINOPHEN 650 MG/20.3 ML ORAL SOLUTION (CUPS) GT PRN (17:04)
[2023-08-01] MEDS ORDERED: NAPHAZOLINE/PHENIRAMINE OPHTHALMIC 15 ML BOTTLE OU PRN (17:05)
[2023-08-01] MEDS ORDERED: MAG HYDROX/AL HYDROX/SIMETH 30 ML UNIT-DOSE CUP GT PRN (17:06)
[2023-08-01] MEDS: SENNOSIDES/DOCUSATE COMBO (SENNA PLUS) TABLET (UD) PO SCH (17:45)
[2023-08-01] MEDS: GENTAMICIN IVPB ONE (17:45)
[2023-08-01] MEDS: WATER IVPB ONE (17:45)
[2023-08-01] MEDS: DEXTROSE 5% IVPB ONE (17:45)
[2023-08-01] MEDS: FUROSEMIDE 40 MG/4 ML INJECTABLE VIAL IVPUSH ONE (17:46)
[2023-08-01] MEDS: TOPIRAMATE 100 MG TABLET GT SCH (17:46)
[2023-08-01] MEDS ORDERED: FUROSEMIDE 40 MG/4 ML INJECTABLE VIAL ONE (17:48)
[2023-08-01] MEDS: ALBUTEROL SO4 2.5/IPRATROPIUM 0.5 INH SOL 3 ML VIAL.NEB. NEB SCH (20:41)
[2023-08-01] MEDS ORDERED: PATIENT'S OWN MEDICATION (NON-FORMULARY) (Lactose-Reduced Food/Fiber [Jevity 1 Cal Liquid] GT SCH (22:00)
[2023-08-01] MEDS ORDERED: PATIENT'S OWN MEDICATION (NON-FORMULARY) (Baclofen [Baclofen] 5 MG Tablet) GT SCH (22:00)
[2023-08-01] MEDS: levETIRAcetam 500 MG/5 ML ORAL SOLUTION (UNIT-DOSE CUPS) GT SCH (22:43)
[2023-08-01] MEDS: BACLOFEN 10 MG TABLET (FP) GT SCH (22:44)
[2023-08-01] MEDS: SODIUM CHLORIDE 1 GM TABLET GT SCH (22:44)
[2023-08-01] MEDS: OXcarbazepine 300 MG/5 ML UNIT DOSE CUPS GT SCH (22:44)
[2023-08-01] MEDS ORDERED: BACLOFEN 10 MG TABLET (FP) ONE (22:45)
[2023-08-01] MEDS: CHOLECALCIFEROL (VIT D3) 1,000 UNIT (25 MCG) TABLET GT SCH (22:50)
[2023-08-02] MEDS ORDERED: TOPIRAMATE 100 MG TABLET ONE ×2 (05:45→05:46)
[2023-08-02] MEDS ORDERED: SENNOSIDES 8.6MG TABLET (FP) PO ONE (05:45)
[2023-08-02] MEDS ORDERED: BACLOFEN 10 MG TABLET (FP) ONE (05:46)
[2023-08-02 07:46] LABS: BASO % 0.2 % (0-2.0); EOS % 0.1 % (0-4.5); HEMATOCRIT 27.3 % (32.4-45.2); HEMOGLOBIN 9.4 GM/dL (10.7-15.3); LYMPH % 39.7 % (8-40); MCH 33.1 pg (25.7-33.7); MCHC 34.4 g/dl (32.0-36.0); MEAN CELL VOLUME 96.2 fl (80-96); MEAN PLT VOLUME 8.7 fl (7.5-11.1); MONO % 8.3 % (3.8-10.2); NEUT % 51.7 % (42.8-82.8); PLATELET COUNT 124 10^3/uL (134-434); RBC 2.83 M/mm3 (3.60-5.2); RDW 15.2 % (11.6-15.6); WHITE BLOOD COUNT 5.3 K/mm3 (4.0-10.0)
[2023-08-02 07:55] LABS: POTASSIUM 3.3 mmol/L (3.5-5.1)
[2023-08-02] MEDS ORDERED: ALBUTEROL SO4 2.5/IPRATROPIUM 0.5 INH SOL 3 ML VIAL.NEB. NEB ONE ×4 (08:17→19:52)
[2023-08-02 08:31] LABS: ALBUMIN 2.9 g/dl (3.4-5.0); CALCIUM 9.4 mg/dL (8.5-10.1)
[2023-08-02 08:32] LABS: MAGNESIUM 1.7 mg/dL (1.8-2.4)
[2023-08-02 08:34] LABS: CREATININE 0.4 mg/dL (0.55-1.3); PHOSPHOROUS 3.6 mg/dL (2.5-4.9)
[2023-08-02 08:36] LABS: BILIRUBIN,TOTAL 0.3 mg/dL (0.2-1); TOT PROT 6.5 g/dl (6.4-8.2)
[2023-08-02] MEDS: ENOXAPARIN NA (PORCINE) 40 MG/0.4 ML DISP.SYRIN SQ SCH (09:51)
[2023-08-02] MEDS: methylPREDNISolone NA SUCC 40 MG/1 ML VIAL IVPUSH SCH (09:51)
[2023-08-02] MEDS ORDERED: AZTREONAM 2 GM VIAL (RESTRICTED TO ID) ONE (18:02)
[2023-08-02] MEDS: AZTREONAM 2 GM in DEXTROSE 5%-WATER 100 ML IVPB SCH (18:26)
[2023-08-02] MEDS: TIGECYCLINE 100 MG in DEXTROSE 5%-WATER - 100 ML IVPB ONE (21:04)
[2023-08-03] MEDS: TIGECYCLINE 50 MG in DEXTROSE 5%-WATER 100 ML IVPB SCH (06:22)
[2023-08-03 09:02] LABS: BASO % 0.1 % (0-2.0); EOS % 0.6 % (0-4.5); HEMATOCRIT 27.6 % (32.4-45.2); HEMOGLOBIN 9.2 GM/dL (10.7-15.3); LYMPH % 50.3 % (8-40); MCH 32.4 pg (25.7-33.7); MCHC 33.2 g/dl (32.0-36.0); MEAN CELL VOLUME 97.6 fl (80-96); MEAN PLT VOLUME 8.3 fl (7.5-11.1); MONO % 8.7 % (3.8-10.2); NEUT % 40.3 % (42.8-82.8); PLATELET COUNT 142 10^3/uL (134-434); RBC 2.83 M/mm3 (3.60-5.2); RDW 14.9 % (11.6-15.6); WHITE BLOOD COUNT 6.1 K/mm3 (4.0-10.0)
[2023-08-03 09:19] LABS: POTASSIUM 3.6 mmol/L (3.5-5.1)
[2023-08-03 09:20] LABS: BLOOD UREA NITROGEN 22.3 mg/dL (7-18); CALCIUM 9.1 mg/dL (8.5-10.1)
[2023-08-03 09:23] LABS: CREATININE 0.4 mg/dL (0.55-1.3)
[2023-08-03 09:25] LABS: BILIRUBIN,TOTAL 0.3 mg/dL (0.2-1); TOT PROT 6.4 g/dl (6.4-8.2)
[2023-08-04] MEDS ORDERED: diazePAM CARPU-JECT 10 MG/2 ML DISP.SYRIN IVPUSH PRN (08:26)
[2023-08-04 08:35] LABS: BASO % 0.1 % (0-2.0); EOS % 0.1 % (0-4.5); HEMATOCRIT 27.2 % (32.4-45.2); HEMOGLOBIN 9.3 GM/dL (10.7-15.3); LYMPH % 48.3 % (8-40); MCH 32.9 pg (25.7-33.7); MCHC 34.2 g/dl (32.0-36.0); MEAN CELL VOLUME 96.2 fl (80-96); MEAN PLT VOLUME 7.8 fl (7.5-11.1); NEUT % 41.5 % (42.8-82.8); PLATELET COUNT 136 10^3/uL (134-434); RBC 2.83 M/mm3 (3.60-5.2); RDW 15.1 % (11.6-15.6); WHITE BLOOD COUNT 3.3 K/mm3 (4.0-10.0)
[2023-08-04 08:52] LABS: POTASSIUM 3.8 mmol/L (3.5-5.1)
[2023-08-04 08:53] LABS: CALCIUM 8.7 mg/dL (8.5-10.1)
[2023-08-04 08:54] LABS: BLOOD UREA NITROGEN 24.4 mg/dL (7-18)
[2023-08-04 08:57] LABS: CREATININE 0.4 mg/dL (0.55-1.3)
[2023-08-04] MEDS: MINERAL OIL/PET HY-PHL TOPICAL OINTMENT 454 GM JAR TP SCH (11:51)
[2023-08-04] MEDS: FAMOTIDINE 10 MG TABLET PO SCH (11:57)
[2023-08-05 09:05] LABS: BASO % 0.1 % (0-2.0); EOS % 2.8 % (0-4.5); HEMATOCRIT 26.8 % (32.4-45.2); LYMPH % 55.8 % (8-40); MCH 32.6 pg (25.7-33.7); MCHC 33.6 g/dl (32.0-36.0); MEAN CELL VOLUME 97.1 fl (80-96); MEAN PLT VOLUME 7.9 fl (7.5-11.1); MONO % 10.6 % (3.8-10.2); NEUT % 30.7 % (42.8-82.8); PLATELET COUNT 144 10^3/uL (134-434); RBC 2.76 M/mm3 (3.60-5.2); RDW 15.5 % (11.6-15.6); WHITE BLOOD COUNT 3.7 K/mm3 (4.0-10.0)
[2023-08-05 09:26] LABS: POTASSIUM 3.8 mmol/L (3.5-5.1)
[2023-08-05 09:27] LABS: CALCIUM 8.9 mg/dL (8.5-10.1)
[2023-08-05 09:28] LABS: BLOOD UREA NITROGEN 23.3 mg/dL (7-18)
[2023-08-05 09:31] LABS: CREATININE 0.3 mg/dL (0.55-1.3)
[2023-08-05] MEDS: methylPREDNISolone NA SUCC 40 MG/1 ML VIAL IVPUSH SCH (10:33)
[2023-08-06 08:46] LABS: EOS % 0.7 % (0-4.5); HEMATOCRIT 29.6 % (32.4-45.2); HEMOGLOBIN 9.7 GM/dL (10.7-15.3); LYMPH % 36.6 % (8-40); MCH 32.3 pg (25.7-33.7); MCHC 32.9 g/dl (32.0-36.0); MEAN CELL VOLUME 98.1 fl (80-96); MEAN PLT VOLUME 7.9 fl (7.5-11.1); MONO % 9.9 % (3.8-10.2); NEUT % 52.8 % (42.8-82.8); PLATELET COUNT 202 10^3/uL (134-434); RBC 3.02 M/mm3 (3.60-5.2); RDW 15.4 % (11.6-15.6); WHITE BLOOD COUNT 6.4 K/mm3 (4.0-10.0)
[2023-08-06 09:01] LABS: POTASSIUM 3.9 mmol/L (3.5-5.1)
[2023-08-06 09:05] LABS: BLOOD UREA NITROGEN 21.3 mg/dL (7-18); CALCIUM 8.9 mg/dL (8.5-10.1)
[2023-08-06 09:09] LABS: CREATININE 0.4 mg/dL (0.55-1.3)
[2023-08-07 08:29] LABS: BASO % 0.2 % (0-2.0); EOS % 1.1 % (0-4.5); HEMOGLOBIN 9.3 GM/dL (10.7-15.3); LYMPH % 42.3 % (8-40); MCH 32.4 pg (25.7-33.7); MCHC 33.1 g/dl (32.0-36.0); MEAN PLT VOLUME 7.9 fl (7.5-11.1); MONO % 10.4 % (3.8-10.2); PLATELET COUNT 207 10^3/uL (134-434); RBC 2.85 M/mm3 (3.60-5.2); WHITE BLOOD COUNT 6.4 K/mm3 (4.0-10.0)
[2023-08-07 08:50] LABS: POTASSIUM 3.8 mmol/L (3.5-5.1)
[2023-08-07 08:56] LABS: BLOOD UREA NITROGEN 22.5 mg/dL (7-18)
[2023-08-07 08:59] LABS: CREATININE 0.3 mg/dL (0.55-1.3)
[2023-08-07] MEDS: FAMOTIDINE 20 MG/2.5 ML ORAL LIQUID PEG SCH (09:58)
[2023-08-07 16:02] VITALS: BMI 34.6
[2023-08-08 10:14] LABS: HEMATOCRIT 29.5 % (32.4-45.2); MCH 33.1 pg (25.7-33.7); MCHC 33.9 g/dl (32.0-36.0); MEAN CELL VOLUME 97.7 fl (80-96); MEAN PLT VOLUME 7.6 fl (7.5-11.1); PLATELET COUNT 221 10^3/uL (134-434); RBC 3.02 M/mm3 (3.60-5.2); RDW 15.7 % (11.6-15.6); WHITE BLOOD COUNT 4.2 K/mm3 (4.0-10.0)
[2023-08-08 10:35] LABS: POTASSIUM 3.9 mmol/L (3.5-5.1)
[2023-08-08 10:38] LABS: BLOOD UREA NITROGEN 22.4 mg/dL (7-18)
[2023-08-08 10:41] LABS: CREATININE 0.3 mg/dL (0.55-1.3)
[2023-08-08 10:55] LABS: ANISOCYTOSIS 0; MACROCYTOSIS 0
[2023-08-08 21:58] VITALS: RESP 18
[2023-08-09 08:11] LABS: BASO % 0.2 % (0-2.0); HEMATOCRIT 32.7 % (32.4-45.2); HEMOGLOBIN 10.7 GM/dL (10.7-15.3); LYMPH % 33.6 % (8-40); MCH 32.1 pg (25.7-33.7); MCHC 32.6 g/dl (32.0-36.0); MEAN CELL VOLUME 98.6 fl (80-96); MEAN PLT VOLUME 7.9 fl (7.5-11.1); MONO % 8.1 % (3.8-10.2); NEUT % 56.1 % (42.8-82.8); PLATELET COUNT 249 10^3/uL (134-434); RBC 3.31 M/mm3 (3.60-5.2); RDW 14.9 % (11.6-15.6)
[2023-08-09 08:36] LABS: POTASSIUM 4.1 mmol/L (3.5-5.1)
[2023-08-09 08:38] LABS: BLOOD UREA NITROGEN 19.4 mg/dL (7-18); CALCIUM 8.6 mg/dL (8.5-10.1)
[2023-08-09 08:42] LABS: CREATININE 0.3 mg/dL (0.55-1.3)
[2023-08-09] MEDS: levETIRAcetam 500 MG/5 ML INJECTION VIAL IVPB SCH (14:42)
[2023-08-09] MEDS ORDERED: SODIUM CHLORIDE 250 ML IV STA (17:16)
[2023-08-10 08:56] LABS: BASO % 0.4 % (0-2.0); EOS % 1.7 % (0-4.5); HEMATOCRIT 30.9 % (32.4-45.2); HEMOGLOBIN 10.3 GM/dL (10.7-15.3); LYMPH % 33.3 % (8-40); MCH 32.6 pg (25.7-33.7); MCHC 33.4 g/dl (32.0-36.0); MEAN CELL VOLUME 97.5 fl (80-96); MEAN PLT VOLUME 7.7 fl (7.5-11.1); MONO % 8.5 % (3.8-10.2); NEUT % 56.1 % (42.8-82.8); PLATELET COUNT 249 10^3/uL (134-434); RBC 3.17 M/mm3 (3.60-5.2); RDW 14.9 % (11.6-15.6); WHITE BLOOD COUNT 3.7 K/mm3 (4.0-10.0)
[2023-08-10 09:28] LABS: POTASSIUM 3.9 mmol/L (3.5-5.1)
[2023-08-10 09:34] LABS: ALBUMIN 2.6 g/dl (3.4-5.0); BLOOD UREA NITROGEN 17.9 mg/dL (7-18); CALCIUM 8.5 mg/dL (8.5-10.1); MAGNESIUM 1.7 mg/dL (1.8-2.4)
[2023-08-10 09:37] LABS: CREATININE 0.3 mg/dL (0.55-1.3)
[2023-08-10 09:38] LABS: BILIRUBIN,TOTAL 0.3 mg/dL (0.2-1)
[2023-08-10] MEDS: MAGNESIUM OXIDE 400 MG TABLET (FP) PO ONE (11:19)
[2023-08-10 15:26] VITALS: BP 95/63; PULSE 69; TEMP 96.3
[2023-08-11] MEDS ORDERED: AMINO ACIDS/PROTEIN HYDROLYS 30 ML LIQUID.PKT GT SCH (08:00)
== END 2023-08-10 16:50 | disposition home or self-care (01) | DRG 177 ==
LOC: JER 10:21 → OBSVTOIN 16:11 → JERBED 16:11 → J7W 08-02 20:06
PROVIDERS: ADMIT Internal Medicine; ATTEND Nurse Practitioner Acute Care
DX: J69.0 Pneumonitis due to inhalation of food and vomit (principal); G80.0 Spastic quadriplegic cerebral palsy; J96.01 Acute respiratory failure with hypoxia; F72 Severe intellectual disabilities; T78.2XXA Anaphylactic shock, unspecified, initial encounter; Z16.24 Resistance to multiple antibiotics; K94.23 Gastrostomy malfunction; K21.9 Gastro-esophageal reflux disease without esophagitis; G40.909 Epilepsy, unspecified, not intractable, without status epilepticus; K76.0 Fatty (change of) liver, not elsewhere classified; R79.89 Other specified abnormal findings of blood chemistry; Y84.8 Other medical procedures as the cause of abnormal reaction of the patient, or of later complication, without mention of misadventure at the time of the procedure
CPT/HCPCS: 0241U-QW; 36415; 71045-TC-FY; 71250-TC; 80048; 80053; 81003; 82550; 82803; 82962; 83605; 83735; 84100; 84484; 85025; 85610; 85730; 86850; 86900; 86901; 87040; 87081; 87086; 87635; 93005; 93010; 94640; 99285-25; J0131; J0475; J3243

== ENCOUNTER 2023-09-26 09:01 | Inpatient (IN) | payer OTHER ==
[2023-09-26] MEDS ORDERED: ALBUTEROL SO4 0.083% IH SOL 2.5 MG/3 ML VIAL.NEB. NEB ONE (09:18)
[2023-09-26] MEDS ORDERED: DEXAMETHASONE SOD PHOSPHATE 10 MG/1 ML VIAL ONE (09:18)
[2023-09-26] MEDS: DEXAMETHASONE SOD PHOSPHATE 10 MG/1 ML VIAL IVPUSH ONE (10:06)
[2023-09-26] MEDS: ALBUTEROL SULFATE 0.021% (0.63 MG/3 ML) VIAL.NEB NEB ONE (10:06)
[2023-09-26 10:08] LABS: PH,URINE 7.5 (5.0-8.0); URINE APPEARANCE CLOUDY; URINE BILIRUBIN NEGATIVE (NEGATIVE); URINE COLOR YELLOW; URINE GLUCOSE (UA) NEGATIVE (NEGATIVE); URINE KETONE NEGATIVE (NEGATIVE); URINE LEUK ESTERASE NEGATIVE (NEGATIVE); URINE NITRITE NEGATIVE (NEGATIVE); URINE PROTEIN NEGATIVE (NEGATIVE); URINE UROBILINOGEN 0.2 mg/dL (0.2-1.0)
[2023-09-26 10:10] LABS: VENOUS BASE EXCESS -4.8 mmol/L (-2-2); VENOUS O2 SATURATION 83.5 % (70-80); VENOUS PCO2 41.4 mmHg (38-52); VENOUS PH 7.322 (7.310-7.410)
[2023-09-26 10:14] LABS: HEMOGLOBIN 10.6 GM/dL (10.7-15.3); MCH 32.1 pg (25.7-33.7); MCHC 34.3 g/dl (32.0-36.0); MEAN CELL VOLUME 93.6 fl (80-96); MEAN PLT VOLUME 7.7 fl (7.5-11.1); PLATELET COUNT 238 10^3/uL (134-434); RBC 3.31 M/mm3 (3.60-5.2); RDW 16.1 % (11.6-15.6); WHITE BLOOD COUNT 15.2 K/mm3 (4.0-10.0)
[2023-09-26 10:16] LABS: INR 0.94 (0.83-1.09); PROTHROMBIN TIME (PATIENT) 10.9 SEC (9.7-13.0)
[2023-09-26 10:19] LABS: ACTIVATED PTT 38.6 SECONDS (25.2-36.5)
[2023-09-26 10:31] LABS: POTASSIUM 3.8 mmol/L (3.5-5.1)
[2023-09-26 10:33] LABS: ALBUMIN 3.3 g/dl (3.4-5.0); BLOOD UREA NITROGEN 9.3 mg/dL (7-18); CALCIUM 8.9 mg/dL (8.5-10.1)
[2023-09-26 10:36] LABS: CREATININE 0.4 mg/dL (0.55-1.3)
[2023-09-26 10:38] LABS: BILIRUBIN,TOTAL 0.2 mg/dL (0.2-1); TOT PROT 7.2 g/dl (6.4-8.2)
[2023-09-26 10:42] LABS: ANISOCYTOSIS 1+; MACROCYTOSIS 0
[2023-09-26] MEDS: SODIUM CHLORIDE 0.9% 500 ML INFUS.BAG IV ONE (12:14)
[2023-09-26 12:55] VITALS: BMI 21.6
[2023-09-26 13:11] LABS: POTASSIUM 3.6 mmol/L (3.5-5.1)
[2023-09-26 13:13] LABS: BLOOD UREA NITROGEN 8.2 mg/dL (7-18)
[2023-09-26 13:15] LABS: CREATININE 0.4 mg/dL (0.55-1.3)
[2023-09-26 14:18] LABS: N-TERMINAL BNP 344.8 pg/ml (5-125)
[2023-09-26] MEDS ORDERED: DOXYCYCLINE HYCLATE 100 MG VIAL ONE (14:42)
[2023-09-26] MEDS ORDERED: ALBUTEROL SO4 2.5/IPRATROPIUM 0.5 INH SOL 3 ML VIAL.NEB. NEB ONE (14:42)
[2023-09-26] MEDS ORDERED: FUROSEMIDE 40 MG/4 ML INJECTABLE VIAL ONE (14:43)
[2023-09-26] MEDS ORDERED: guaiFENesin 200 MG/10 ML 10 ML UNIT-DOSE CUPS GT PRN (14:53)
[2023-09-26] MEDS ORDERED: ACETAMINOPHEN 650 MG/20.3 ML ORAL SOLUTION (CUPS) GT PRN (14:53)
[2023-09-26] MEDS ORDERED: BACITRACIN ZINC 15 GM TUBE TOPICAL OINTMENT TP PRN (14:53)
[2023-09-26] MEDS ORDERED: SODIUM CHLORIDE NASAL SPRAY 44 ML BOTTLE NS PRN (14:53)
[2023-09-26] MEDS ORDERED: BISACODYL 10 MG SUPP.RECT RC PRN (14:53)
[2023-09-26] MEDS ORDERED: PATIENT'S OWN MEDICATION (NON-FORMULARY) (Diazepam [Valtoco] 10 MG/0.1 ML Spray) NS PRN (14:53)
[2023-09-26] MEDS ORDERED: diphenhydrAMINE HCL 12.5 MG/5 ML UNIT-DOSE CUPS GT PRN (14:53)
[2023-09-26] MEDS: FUROSEMIDE 40 MG/4 ML INJECTABLE VIAL IVPUSH SCH (15:05)
[2023-09-26] MEDS: DOXYCYCLINE INJECTION 100 MG in DEXTROSE 5%-WATER 100 ML IVPB SCH (15:05)
[2023-09-26] MEDS: ALBUTEROL SO4 2.5/IPRATROPIUM 0.5 INH SOL 3 ML VIAL.NEB. NEB SCH (15:05)
[2023-09-26] MEDS: CLINDAMYCIN 600MG PREMIX IVPB 600 MG/50 ML BAG IVPB SCH (16:50)
[2023-09-26] MEDS: SENNOSIDES/DOCUSATE COMBO (SENNA PLUS) TABLET (UD) PO SCH (16:53)
[2023-09-26] MEDS: TOPIRAMATE 100 MG TABLET GT SCH (17:24)
[2023-09-26] MEDS: AZTREONAM 1 GM in DEXTROSE 5%-WATER - 50 ML IVPB SCH (17:24)
[2023-09-26] MEDS ORDERED: MEROPENEM 1 GM in DEXTROSE 5%-WATER 100 ML IVPB SCH (18:00)
[2023-09-26 19:23] LABS: POTASSIUM 3.3 mmol/L (3.5-5.1)
[2023-09-26 19:26] LABS: BLOOD UREA NITROGEN 6.4 mg/dL (7-18)
[2023-09-26 19:29] LABS: CREATININE 0.4 mg/dL (0.55-1.3)
[2023-09-26] MEDS: BACLOFEN 10 MG TABLET (FP) GT SCH (21:45)
[2023-09-26] MEDS: SODIUM CHLORIDE 1 GM TABLET GT SCH (21:45)
[2023-09-26] MEDS: levETIRAcetam 500 MG/5 ML ORAL SOLUTION (UNIT-DOSE CUPS) GT SCH (21:46)
[2023-09-26] MEDS: SIMETHICONE 40 MG/0.6 ML BOTTLE GT PRN (21:47)
[2023-09-26] MEDS: OXcarbazepine 300 MG/5 ML UNIT DOSE CUPS GT SCH (21:48)
[2023-09-27 07:12] LABS: BASO % 0.1 % (0-2.0); HEMATOCRIT 28.9 % (32.4-45.2); HEMOGLOBIN 9.8 GM/dL (10.7-15.3); LYMPH % 8.8 % (8-40); MCH 31.7 pg (25.7-33.7); MCHC 33.9 g/dl (32.0-36.0); MEAN CELL VOLUME 93.4 fl (80-96); MEAN PLT VOLUME 7.3 fl (7.5-11.1); MONO % 2.3 % (3.8-10.2); NEUT % 88.8 % (42.8-82.8); PLATELET COUNT 235 10^3/uL (134-434); RBC 3.09 M/mm3 (3.60-5.2); RDW 16.3 % (11.6-15.6); WHITE BLOOD COUNT 12.9 K/mm3 (4.0-10.0)
[2023-09-27 07:31] LABS: POTASSIUM 3.3 mmol/L (3.5-5.1)
[2023-09-27 07:33] LABS: ALBUMIN 3.1 g/dl (3.4-5.0); CALCIUM 9.1 mg/dL (8.5-10.1)
[2023-09-27 07:34] LABS: MAGNESIUM 1.8 mg/dL (1.8-2.4)
[2023-09-27 07:37] LABS: BILIRUBIN,TOTAL 0.3 mg/dL (0.2-1); CREATININE 0.3 mg/dL (0.55-1.3); PHOSPHOROUS 4.2 mg/dL (2.5-4.9); TOT PROT 6.7 g/dl (6.4-8.2)
[2023-09-27] MEDS ORDERED: FUROSEMIDE 40 MG/4 ML INJECTABLE VIAL IVPUSH ONE ×2 (10:15→10:30)
[2023-09-27] MEDS: ENOXAPARIN NA (PORCINE) 40 MG/0.4 ML DISP.SYRIN SQ SCH (10:44)
[2023-09-27] MEDS: FAMOTIDINE 20 MG/2.5 ML ORAL LIQUID PEG SCH (10:48)
[2023-09-27] MEDS: POTASSIUM CHLORIDE ORAL LIQUID 20 MEQ/15 ML PEG ONE (12:31)
[2023-09-27] MEDS: POTASSIUM CHLORIDE ORAL LIQUID 20 MEQ/15 ML PO ONE (12:39)
[2023-09-27] MEDS: FUROSEMIDE 40 MG/4 ML INJECTABLE VIAL IVPUSH ONE (18:58)
[2023-09-27] MEDS: MINERAL OIL/PET HY-PHL TOPICAL OINTMENT 454 GM JAR TP SCH (23:09)
[2023-09-28] MEDS: POTASSIUM CHLORIDE ORAL LIQUID 20 MEQ/15 ML PEG SCH (10:18)
[2023-09-28 11:52] LABS: BASO % 0.2 % (0-2.0); EOS % 0.1 % (0-4.5); HEMATOCRIT 28.9 % (32.4-45.2); HEMOGLOBIN 9.9 GM/dL (10.7-15.3); LYMPH % 20.6 % (8-40); MCHC 34.1 g/dl (32.0-36.0); MEAN PLT VOLUME 7.7 fl (7.5-11.1); MONO % 9.8 % (3.8-10.2); NEUT % 69.3 % (42.8-82.8); PLATELET COUNT 234 10^3/uL (134-434); RBC 3.08 M/mm3 (3.60-5.2); RDW 16.6 % (11.6-15.6); WHITE BLOOD COUNT 5.4 K/mm3 (4.0-10.0)
[2023-09-28 12:14] LABS: POTASSIUM 4.6 mmol/L (3.5-5.1)
[2023-09-28 12:27] LABS: BLOOD UREA NITROGEN 15.6 mg/dL (7-18); CALCIUM 9.3 mg/dL (8.5-10.1)
[2023-09-28 12:30] LABS: CREATININE 0.3 mg/dL (0.55-1.3)
[2023-09-28 12:32] LABS: BILIRUBIN,TOTAL 0.3 mg/dL (0.2-1); TOT PROT 6.9 g/dl (6.4-8.2)
[2023-09-28] MEDS: DEXTROSE 5%-WATER - 1,000 ML IV SCH (13:41)
[2023-09-29 07:21] LABS: POTASSIUM 4.2 mmol/L (3.5-5.1)
[2023-09-29 07:23] LABS: CALCIUM 8.9 mg/dL (8.5-10.1)
[2023-09-29 07:24] LABS: ALBUMIN 2.8 g/dl (3.4-5.0); BLOOD UREA NITROGEN 13.1 mg/dL (7-18)
[2023-09-29 07:27] LABS: CREATININE 0.3 mg/dL (0.55-1.3)
[2023-09-29 07:28] LABS: BILIRUBIN,TOTAL 0.2 mg/dL (0.2-1); TOT PROT 6.2 g/dl (6.4-8.2)
[2023-09-29] MEDS: SODIUM CHLORIDE 1 GM TABLET GT SCH (10:58)
[2023-09-29] MEDS: FUROSEMIDE 40 MG/5 ML UNIT-DOSE CUP GT SCH (10:58)
[2023-10-01 07:54] LABS: HEMATOCRIT 30.5 % (32.4-45.2); HEMOGLOBIN 10.3 GM/dL (10.7-15.3); MCH 32.2 pg (25.7-33.7); MCHC 33.8 g/dl (32.0-36.0); MEAN CELL VOLUME 95.1 fl (80-96); MEAN PLT VOLUME 7.5 fl (7.5-11.1); RBC 3.21 M/mm3 (3.60-5.2); RDW 16.6 % (11.6-15.6)
[2023-10-01 08:07] LABS: POTASSIUM 4.3 mmol/L (3.5-5.1)
[2023-10-01 08:08] LABS: CALCIUM 9.1 mg/dL (8.5-10.1)
[2023-10-01 08:09] LABS: BLOOD UREA NITROGEN 19.7 mg/dL (7-18)
[2023-10-01 08:12] LABS: CREATININE 0.4 mg/dL (0.55-1.3)
[2023-10-01 08:17] LABS: WHITE BLOOD COUNT 5.2 K/mm3 (4.0-10.0)
[2023-10-01 08:18] LABS: PLATELET COUNT 262 10^3/uL (134-434)
[2023-10-01 09:23] LABS: ANISOCYTOSIS 0; MACROCYTOSIS 0
[2023-10-02 08:06] LABS: BASO % 0.6 % (0-2.0); HEMATOCRIT 32.9 % (32.4-45.2); LYMPH % 38.2 % (8-40); MCH 31.9 pg (25.7-33.7); MCHC 33.6 g/dl (32.0-36.0); MEAN CELL VOLUME 95.1 fl (80-96); MEAN PLT VOLUME 7.2 fl (7.5-11.1); MONO % 17.8 % (3.8-10.2); NEUT % 42.4 % (42.8-82.8); PLATELET COUNT 278 10^3/uL (134-434); RBC 3.46 M/mm3 (3.60-5.2); RDW 16.3 % (11.6-15.6); WHITE BLOOD COUNT 3.5 K/mm3 (4.0-10.0)
[2023-10-02 08:21] LABS: POTASSIUM 3.8 mmol/L (3.5-5.1)
[2023-10-02 08:22] LABS: CALCIUM 9.6 mg/dL (8.5-10.1)
[2023-10-02 08:23] LABS: BLOOD UREA NITROGEN 22.1 mg/dL (7-18)
[2023-10-02 08:26] LABS: CREATININE 0.4 mg/dL (0.55-1.3)
[2023-10-02 13:19] VITALS: RESP 18
[2023-10-03 08:22] LABS: BASO % 1.1 % (0-2.0); EOS % 0.8 % (0-4.5); HEMATOCRIT 33.6 % (32.4-45.2); HEMOGLOBIN 10.9 GM/dL (10.7-15.3); MCHC 32.4 g/dl (32.0-36.0); MEAN CELL VOLUME 95.6 fl (80-96); MEAN PLT VOLUME 7.5 fl (7.5-11.1); MONO % 15.6 % (3.8-10.2); NEUT % 51.5 % (42.8-82.8); PLATELET COUNT 249 10^3/uL (134-434); RBC 3.51 M/mm3 (3.60-5.2); RDW 15.9 % (11.6-15.6); WHITE BLOOD COUNT 3.3 K/mm3 (4.0-10.0)
[2023-10-03 08:32] LABS: POTASSIUM 3.9 mmol/L (3.5-5.1)
[2023-10-03 08:42] LABS: BLOOD UREA NITROGEN 24.1 mg/dL (7-18); CALCIUM 9.2 mg/dL (8.5-10.1)
[2023-10-03 08:46] LABS: CREATININE 0.4 mg/dL (0.55-1.3)
[2023-10-03] MEDS: DOXYCYCLINE HYCLATE 100 MG CAPSULE PO SCH (10:28)
[2023-10-03 11:55] VITALS: BP 113/62; PULSE 90; TEMP 98.8
== END 2023-10-03 13:15 | disposition home or self-care (01) | DRG 177 ==
LOC: JER 09:01 → JERBED 09:57 → J7W 15:38
PROVIDERS: ADMIT Internal Medicine; ATTEND Internal Medicine
DX: J69.0 Pneumonitis due to inhalation of food and vomit (principal); J96.01 Acute respiratory failure with hypoxia; E87.1 Hypo-osmolality and hyponatremia; J45.901 Unspecified asthma with (acute) exacerbation; G40.909 Epilepsy, unspecified, not intractable, without status epilepticus; G80.8 Other cerebral palsy; J45.909 Unspecified asthma, uncomplicated; R62.50 Unspecified lack of expected normal physiological development in childhood; M41.9 Scoliosis, unspecified; K76.0 Fatty (change of) liver, not elsewhere classified; E87.6 Hypokalemia; R13.10 Dysphagia, unspecified; H57.04 Mydriasis
CPT/HCPCS: 0241U-QW; 36415; 70450-TC; 71045-TC-FY; 80048; 80053; 81003; 82803; 83605; 83735; 83880; 83930; 83935; 84100; 84443; 84484; 85025; 85610; 85730; 86850; 86900; 86901; 87040; 87070; 87081; 87086; 87186; 87205; 87633; 87635; 87899; 93005; 93010; 94640; 99285-25; J0475; J1100

== ENCOUNTER 2023-10-11 20:23 | Emergency (ER) | payer OTHER ==
[2023-10-11 20:46] VITALS: BP 107/74; PULSE 70; RESP 14; TEMP 98.5; BMI 24.3
[2023-10-11 22:28] LABS: BASO % 0.8 % (0-2.0); EOS % 1.4 % (0-4.5); HEMATOCRIT 30.9 % (32.4-45.2); HEMOGLOBIN 10.5 GM/dL (10.7-15.3); LYMPH % 47.4 % (8-40); MEAN CELL VOLUME 93.9 fl (80-96); MONO % 11.2 % (3.8-10.2); NEUT % 39.2 % (42.8-82.8); RBC 3.29 M/mm3 (3.60-5.2); RDW 16.6 % (11.6-15.6); WHITE BLOOD COUNT 2.3 K/mm3 (4.0-10.0)
[2023-10-11 22:33] LABS: POTASSIUM 3.8 mmol/L (3.5-5.1)
[2023-10-11 22:34] LABS: CALCIUM 9.1 mg/dL (8.5-10.1)
[2023-10-11 22:35] LABS: ALBUMIN 3.1 g/dl (3.4-5.0); BLOOD UREA NITROGEN 12.3 mg/dL (7-18)
[2023-10-11 22:37] LABS: PH,URINE 5.5 (5.0-8.0); URINE APPEARANCE CLOUDY; URINE BILIRUBIN NEGATIVE (NEGATIVE); URINE COLOR YELLOW; URINE GLUCOSE (UA) NEGATIVE (NEGATIVE); URINE KETONE NEGATIVE (NEGATIVE); URINE LEUK ESTERASE NEGATIVE (NEGATIVE); URINE NITRITE NEGATIVE (NEGATIVE); URINE PROTEIN NEGATIVE (NEGATIVE); URINE UROBILINOGEN 0.2 mg/dL (0.2-1.0)
[2023-10-11 22:38] LABS: CREATININE 0.4 mg/dL (0.55-1.3)
[2023-10-11 22:40] LABS: BILIRUBIN,TOTAL 0.2 mg/dL (0.2-1); TOT PROT 7.1 g/dl (6.4-8.2)
== END 2023-10-12 00:07 | disposition home or self-care (01) ==
LOC: JER 20:23
DX: G40.909 Epilepsy, unspecified, not intractable, without status epilepticus (principal)
CPT/HCPCS: 36415; 71045-TC-FY; 80053; 80183; 81003; 83735; 85025; 86850; 86900; 86901; 87086; 87186; 93005; 93010; 99285-25

== ENCOUNTER 2023-12-13 13:20 | Inpatient (IN) | payer OTHER ==
[2023-12-13 15:20] LABS: BASO % 0.2 % (0-2.0); EOS % 0.3 % (0-4.5); HEMATOCRIT 26.7 % (32.4-45.2); HEMOGLOBIN 8.9 GM/dL (10.7-15.3); LYMPH % 26.8 % (8-40); MCH 31.6 pg (25.7-33.7); MCHC 33.5 g/dl (32.0-36.0); MEAN CELL VOLUME 94.4 fl (80-96); MEAN PLT VOLUME 7.8 fl (7.5-11.1); MONO % 6.3 % (3.8-10.2); NEUT % 66.4 % (42.8-82.8); PLATELET COUNT 105 10^3/uL (134-434); RBC 2.82 M/mm3 (3.60-5.2); RDW 18.9 % (11.6-15.6); WHITE BLOOD COUNT 4.3 K/mm3 (4.0-10.0)
[2023-12-13 15:21] LABS: VENOUS O2 SATURATION 98.2 % (70-80); VENOUS PCO2 39.8 mmHg (38-52); VENOUS PH 7.363 (7.310-7.410)
[2023-12-13 15:25] LABS: INR 0.95 (0.83-1.09); PROTHROMBIN TIME (PATIENT) 10.9 SEC (9.7-13.0)
[2023-12-13 15:27] LABS: ACTIVATED PTT 44.4 SECONDS (25.2-36.5)
[2023-12-13 15:43] LABS: POTASSIUM 3.2 mmol/L (3.5-5.1)
[2023-12-13 15:47] LABS: CALCIUM 8.9 mg/dL (8.5-10.1)
[2023-12-13 15:48] LABS: BLOOD UREA NITROGEN 8.7 mg/dL (7-18)
[2023-12-13 15:50] LABS: CREATININE 0.3 mg/dL (0.55-1.3)
[2023-12-13 15:52] LABS: BILIRUBIN,TOTAL 0.4 mg/dL (0.2-1); TOT PROT 6.4 g/dl (6.4-8.2)
[2023-12-13] MEDS ORDERED: ALBUTEROL SO4 2.5/IPRATROPIUM 0.5 INH SOL 3 ML VIAL.NEB. NEB ONE (16:06)
[2023-12-13] MEDS: ALBUTEROL SO4 2.5/IPRATROPIUM 0.5 INH SOL 3 ML VIAL.NEB. NEB ONE (16:20)
[2023-12-13] MEDS ORDERED: KCL 20 MEQ PREMIX BAG 20 MEQ/100 ML INFUS.BAG IVPB SCH (16:45)
[2023-12-13 16:54] LABS: URINE COLOR YELLOW
[2023-12-13 16:55] LABS: URINE APPEARANCE CLEAR; URINE BILIRUBIN NEGATIVE (NEGATIVE); URINE GLUCOSE (UA) NEGATIVE (NEGATIVE); URINE KETONE NEGATIVE (NEGATIVE)
[2023-12-13 16:56] LABS: PH,URINE 6.5 (5.0-8.0); URINE NITRITE NEGATIVE (NEGATIVE); URINE PROTEIN NEGATIVE (NEGATIVE); URINE UROBILINOGEN 0.2 mg/dL (0.2-1.0)
[2023-12-13 16:57] LABS: URINE LEUK ESTERASE 4+ (NEGATIVE)
[2023-12-13] MEDS ORDERED: KCL 10 MEQ IVPB 30 MEQ/300 ML INFUS.BAG IVPB ONE (18:17)
[2023-12-13] MEDS ORDERED: MEROPENEM 1 GM VIAL (RESTRICTED TO ID) IVPB ONE (18:17)
[2023-12-13] MEDS: MEROPENEM 1 GM in DEXTROSE 5%-WATER 100 ML IVPB ONE (18:32)
[2023-12-13] MEDS: KCL 10 MEQ IVPB 10 MEQ/100 ML INFUS.BAG IVPB SCH (18:50)
[2023-12-13] MEDS ORDERED: SIMETHICONE 40 MG/0.6 ML BOTTLE GT PRN (18:51)
[2023-12-13] MEDS ORDERED: guaiFENesin 200 MG/10 ML 10 ML UNIT-DOSE CUPS GT PRN (18:51)
[2023-12-13] MEDS ORDERED: PATIENT'S OWN MEDICATION (NON-FORMULARY) (Diazepam [Valtoco] 10 MG/0.1 ML Spray) NS PRN (18:51)
[2023-12-13] MEDS ORDERED: NAPHAZOLINE/PHENIRAMINE OPHTHALMIC 15 ML BOTTLE OU PRN (18:51)
[2023-12-13] MEDS ORDERED: PATIENT'S OWN MEDICATION (NON-FORMULARY) (Tizanidine Hcl 2 MG Tablet) GT PRN (18:51)
[2023-12-13] MEDS: ALBUTEROL SO4 2.5/IPRATROPIUM 0.5 INH SOL 3 ML VIAL.NEB. NEB SCH (20:43)
[2023-12-13] MEDS: levETIRAcetam 500 MG/5 ML ORAL SOLUTION (UNIT-DOSE CUPS) GT SCH (22:20)
[2023-12-13] MEDS: SODIUM CHLORIDE 1 GM TABLET GT SCH (22:20)
[2023-12-13] MEDS ORDERED: diazePAM CARPU-JECT 10 MG/2 ML DISP.SYRIN IVPUSH PRN (22:33)
[2023-12-13] MEDS: OXcarbazepine 300 MG/5 ML UNIT DOSE CUPS GT SCH (22:55)
[2023-12-14 00:20] VITALS: BMI 30.5
[2023-12-14] MEDS: POTASSIUM CHLORIDE ORAL LIQUID 20 MEQ/15 ML PO ONE (01:45)
[2023-12-14] MEDS: POTASSIUM CHLORIDE TABS 20 MEQ TABLET.ER (FP) PO ONE (01:45)
[2023-12-14] MEDS: TOPIRAMATE 100 MG TABLET GT SCH (04:28)
[2023-12-14] MEDS: MEROPENEM 1 GM in DEXTROSE 5%-WATER 100 ML IVPB SCH ×3 (07:52→19:46)
[2023-12-14] MEDS: ENOXAPARIN NA (PORCINE) 40 MG/0.4 ML DISP.SYRIN SQ SCH (09:23)
[2023-12-14] MEDS: FAMOTIDINE 20 MG/2.5 ML ORAL LIQUID PEG SCH (09:24)
[2023-12-14 09:47] LABS: BASO % 0.2 % (0-2.0); EOS % 0.4 % (0-4.5); HEMATOCRIT 27.4 % (32.4-45.2); HEMOGLOBIN 9.1 GM/dL (10.7-15.3); LYMPH % 11.2 % (8-40); MCH 31.6 pg (25.7-33.7); MEAN CELL VOLUME 95.7 fl (80-96); MEAN PLT VOLUME 8.5 fl (7.5-11.1); MONO % 5.6 % (3.8-10.2); NEUT % 82.6 % (42.8-82.8); PLATELET COUNT 115 10^3/uL (134-434); RBC 2.87 M/mm3 (3.60-5.2); RDW 19.5 % (11.6-15.6); WHITE BLOOD COUNT 5.8 K/mm3 (4.0-10.0)
[2023-12-14 10:14] LABS: POTASSIUM 5.1 mmol/L (3.5-5.1)
[2023-12-14 10:17] LABS: CALCIUM 9.2 mg/dL (8.5-10.1)
[2023-12-14 10:19] LABS: BLOOD UREA NITROGEN 6.8 mg/dL (7-18); MAGNESIUM 1.8 mg/dL (1.8-2.4)
[2023-12-14 10:21] LABS: CREATININE 0.3 mg/dL (0.55-1.3); PHOSPHOROUS 3.1 mg/dL (2.5-4.9)
[2023-12-14 10:24] LABS: BILIRUBIN,TOTAL 0.4 mg/dL (0.2-1); TOT PROT 6.4 g/dl (6.4-8.2)
[2023-12-15 08:28] LABS: BASO % 0.4 % (0-2.0); EOS % 0.7 % (0-4.5); HEMATOCRIT 27.3 % (32.4-45.2); HEMOGLOBIN 9.1 GM/dL (10.7-15.3); LYMPH % 37.8 % (8-40); MCHC 33.4 g/dl (32.0-36.0); MEAN CELL VOLUME 95.7 fl (80-96); MEAN PLT VOLUME 8.3 fl (7.5-11.1); MONO % 7.8 % (3.8-10.2); NEUT % 53.3 % (42.8-82.8); PLATELET COUNT 126 10^3/uL (134-434); RBC 2.85 M/mm3 (3.60-5.2); RDW 19.1 % (11.6-15.6); WHITE BLOOD COUNT 3.4 K/mm3 (4.0-10.0)
[2023-12-15 08:46] LABS: BLOOD UREA NITROGEN 5.7 mg/dL (7-18)
[2023-12-15 08:49] LABS: CREATININE 0.3 mg/dL (0.55-1.3)
[2023-12-15 08:51] LABS: BILIRUBIN,TOTAL 0.4 mg/dL (0.2-1); TOT PROT 6.4 g/dl (6.4-8.2)
[2023-12-15] MEDS: levETIRAcetam 500 MG/5 ML INJECTION VIAL IVPB ONE (11:36)
[2023-12-15] MEDS: TUBE FEED DECLOGGING SOLUTION 12,000 UNITS GT ONE (12:13)
[2023-12-15] MEDS: VALPROATE SODIUM INJECTION 500 MG in SODIUM CHLORIDE 100 ML IVPB SCH (16:57)
[2023-12-15] MEDS: VALPROATE SODIUM 500 MG/5 ML VIAL IVPB SCH (17:08)
[2023-12-15] MEDS: AMINO ACIDS 4.25%/D5W 1,000 ML IV SCH (18:01)
[2023-12-15] MEDS: levETIRAcetam 500 MG/5 ML INJECTION VIAL IVPB SCH (21:25)
[2023-12-16 09:31] LABS: BASO % 0.3 % (0-2.0); EOS % 1.1 % (0-4.5); HEMATOCRIT 29.5 % (32.4-45.2); HEMOGLOBIN 9.8 GM/dL (10.7-15.3); LYMPH % 22.9 % (8-40); MCH 31.8 pg (25.7-33.7); MCHC 33.3 g/dl (32.0-36.0); MEAN CELL VOLUME 95.5 fl (80-96); MONO % 7.1 % (3.8-10.2); NEUT % 68.6 % (42.8-82.8); PLATELET COUNT 149 10^3/uL (134-434); RBC 3.08 M/mm3 (3.60-5.2); RDW 18.8 % (11.6-15.6); WHITE BLOOD COUNT 3.4 K/mm3 (4.0-10.0)
[2023-12-16 09:53] LABS: POTASSIUM 3.8 mmol/L (3.5-5.1)
[2023-12-16 09:59] LABS: BLOOD UREA NITROGEN 7.6 mg/dL (7-18); CALCIUM 9.1 mg/dL (8.5-10.1)
[2023-12-16 10:02] LABS: CREATININE 0.3 mg/dL (0.55-1.3)
[2023-12-16 10:04] LABS: BILIRUBIN,TOTAL 0.5 mg/dL (0.2-1); TOT PROT 6.6 g/dl (6.4-8.2)
[2023-12-16] MEDS: levETIRAcetam 500 MG/5 ML ORAL SOLUTION (UNIT-DOSE CUPS) GT SCH (11:01)
[2023-12-17 08:09] LABS: BASO % 0.3 % (0-2.0); HEMATOCRIT 27.8 % (32.4-45.2); HEMOGLOBIN 9.3 GM/dL (10.7-15.3); LYMPH % 38.5 % (8-40); MCH 32.1 pg (25.7-33.7); MCHC 33.5 g/dl (32.0-36.0); MEAN CELL VOLUME 95.8 fl (80-96); MEAN PLT VOLUME 7.9 fl (7.5-11.1); MONO % 9.3 % (3.8-10.2); NEUT % 50.9 % (42.8-82.8); PLATELET COUNT 165 10^3/uL (134-434); RDW 18.7 % (11.6-15.6); WHITE BLOOD COUNT 3.3 K/mm3 (4.0-10.0)
[2023-12-17 08:22] LABS: POTASSIUM 3.7 mmol/L (3.5-5.1)
[2023-12-17 08:24] LABS: CALCIUM 8.7 mg/dL (8.5-10.1)
[2023-12-17 08:25] LABS: ALBUMIN 2.8 g/dl (3.4-5.0)
[2023-12-17 08:29] LABS: BILIRUBIN,TOTAL 0.3 mg/dL (0.2-1); CREATININE 0.2 mg/dL (0.55-1.3)
[2023-12-17 08:30] LABS: TOT PROT 6.4 g/dl (6.4-8.2)
[2023-12-17] MEDS: TIGECYCLINE 100 MG in DEXTROSE 5%-WATER - 100 ML IVPB ONE (17:48)
[2023-12-18] MEDS: TIGECYCLINE 50 MG in DEXTROSE 5%-WATER - 100 ML IVPB SCH (06:45)
[2023-12-18 08:27] LABS: BASO % 0.3 % (0-2.0); EOS % 0.7 % (0-4.5); HEMATOCRIT 30.2 % (32.4-45.2); HEMOGLOBIN 10.1 GM/dL (10.7-15.3); LYMPH % 28.4 % (8-40); MCHC 33.3 g/dl (32.0-36.0); MEAN CELL VOLUME 96.1 fl (80-96); MEAN PLT VOLUME 7.9 fl (7.5-11.1); MONO % 8.3 % (3.8-10.2); NEUT % 62.3 % (42.8-82.8); PLATELET COUNT 184 10^3/uL (134-434); RBC 3.14 M/mm3 (3.60-5.2); RDW 18.4 % (11.6-15.6); WHITE BLOOD COUNT 3.7 K/mm3 (4.0-10.0)
[2023-12-18 08:33] LABS: POTASSIUM 4.6 mmol/L (3.5-5.1)
[2023-12-18 08:41] LABS: ALBUMIN 2.9 g/dl (3.4-5.0); BLOOD UREA NITROGEN 18.6 mg/dL (7-18); CALCIUM 8.8 mg/dL (8.5-10.1)
[2023-12-18 08:44] LABS: CREATININE 0.3 mg/dL (0.55-1.3)
[2023-12-18 08:45] LABS: BILIRUBIN,TOTAL 0.6 mg/dL (0.2-1); TOT PROT 6.4 g/dl (6.4-8.2)
[2023-12-19] MEDS: FUROSEMIDE 40 MG/4 ML INJECTABLE VIAL IVPUSH ONE (12:13)
[2023-12-19] MEDS: SCOPOLAMINE HYDROBROMIDE 1 PATCH PATCH.TD72 TD SCH (12:13)
[2023-12-20] MEDS: AMINO ACIDS/PROTEIN HYDROLYS 30 ML LIQUID.PKT GT SCH (08:42)
[2023-12-20 09:05] LABS: BASO % 0.4 % (0-2.0); EOS % 1.8 % (0-4.5); HEMATOCRIT 37.9 % (32.4-45.2); LYMPH % 12.2 % (8-40); MCH 32.4 pg (25.7-33.7); MCHC 34.4 g/dl (32.0-36.0); MEAN CELL VOLUME 94.1 fl (80-96); MEAN PLT VOLUME 8.2 fl (7.5-11.1); MONO % 6.9 % (3.8-10.2); NEUT % 78.7 % (42.8-82.8); PLATELET COUNT 390 10^3/uL (134-434); RBC 4.03 M/mm3 (3.60-5.2); RDW 18.3 % (11.6-15.6)
[2023-12-20 09:24] LABS: POTASSIUM 5.9 mmol/L (3.5-5.1)
[2023-12-20 09:41] LABS: CALCIUM 8.8 mg/dL (8.5-10.1)
[2023-12-20 09:42] LABS: ALBUMIN 3.2 g/dl (3.4-5.0); BLOOD UREA NITROGEN 38.5 mg/dL (7-18); MAGNESIUM 2.2 mg/dL (1.8-2.4)
[2023-12-20 09:45] LABS: CREATININE 0.6 mg/dL (0.55-1.3)
[2023-12-20 09:46] LABS: BILIRUBIN,TOTAL 0.3 mg/dL (0.2-1); TOT PROT 7.3 g/dl (6.4-8.2)
[2023-12-20] MEDS: SODIUM CHLORIDE 500 ML IV STA (10:22)
[2023-12-20] MEDS: MIDODRINE HCL 2.5 MG TABLET PO SCH (10:57)
[2023-12-21] MEDS: ACETAMINOPHEN 1000 MG/100 ML BAG IVPB ONE (00:38)
[2023-12-21 09:19] LABS: BASO % 0.6 % (0-2.0); EOS % 0.6 % (0-4.5); HEMATOCRIT 33.9 % (32.4-45.2); HEMOGLOBIN 11.2 GM/dL (10.7-15.3); LYMPH % 33.8 % (8-40); MCH 31.4 pg (25.7-33.7); MCHC 32.9 g/dl (32.0-36.0); MEAN CELL VOLUME 95.3 fl (80-96); PLATELET COUNT 314 10^3/uL (134-434); RBC 3.56 M/mm3 (3.60-5.2); RDW 18.4 % (11.6-15.6); WHITE BLOOD COUNT 4.2 K/mm3 (4.0-10.0)
[2023-12-21 09:53] LABS: POTASSIUM 4.3 mmol/L (3.5-5.1)
[2023-12-21 10:04] LABS: BLOOD UREA NITROGEN 32.1 mg/dL (7-18); CALCIUM 8.7 mg/dL (8.5-10.1); MAGNESIUM 2.3 mg/dL (1.8-2.4)
[2023-12-21 10:05] LABS: ALBUMIN 2.8 g/dl (3.4-5.0)
[2023-12-21 10:08] LABS: CREATININE 0.3 mg/dL (0.55-1.3)
[2023-12-21 10:09] LABS: BILIRUBIN,TOTAL 0.3 mg/dL (0.2-1); TOT PROT 6.2 g/dl (6.4-8.2)
[2023-12-21] MEDS: ENOXAPARIN NA (PORCINE) 40 MG/0.4 ML DISP.SYRIN SQ SCH (14:35)
[2023-12-22 08:51] LABS: BASO % 1.4 % (0-2.0); EOS % 2.8 % (0-4.5); HEMATOCRIT 36.3 % (32.4-45.2); HEMOGLOBIN 11.9 GM/dL (10.7-15.3); MCH 31.8 pg (25.7-33.7); MCHC 32.9 g/dl (32.0-36.0); MEAN CELL VOLUME 96.7 fl (80-96); MEAN PLT VOLUME 9.5 fl (7.5-11.1); MONO % 13.3 % (3.8-10.2); NEUT % 33.5 % (42.8-82.8); PLATELET COUNT 233 10^3/uL (134-434); RBC 3.75 M/mm3 (3.60-5.2); RDW 18.8 % (11.6-15.6); WHITE BLOOD COUNT 3.4 K/mm3 (4.0-10.0)
[2023-12-22 09:29] LABS: POTASSIUM 4.8 mmol/L (3.5-5.1)
[2023-12-22 09:31] LABS: ALBUMIN 3.3 g/dl (3.4-5.0); CALCIUM 8.8 mg/dL (8.5-10.1)
[2023-12-22 09:32] LABS: BLOOD UREA NITROGEN 29.4 mg/dL (7-18)
[2023-12-22 09:34] LABS: CREATININE 0.3 mg/dL (0.55-1.3)
[2023-12-22 09:36] LABS: BILIRUBIN,TOTAL 0.4 mg/dL (0.2-1); TOT PROT 7.1 g/dl (6.4-8.2)
[2023-12-22] MEDS: ALBUTEROL SO4 2.5/IPRATROPIUM 0.5 INH SOL 3 ML VIAL.NEB. NEB PRN (20:41)
[2023-12-22 21:55] VITALS: TEMP 98.4
[2023-12-23 07:51] VITALS: BP 107/70; PULSE 64; RESP 20
== END 2023-12-23 09:35 | disposition home or self-care (01) | DRG 177 ==
LOC: JER 13:20 → JERBED 17:19 → J8W 20:06
PROVIDERS: ADMIT Internal Medicine; ATTEND Nurse Practitioner Acute Care
DX: J69.0 Pneumonitis due to inhalation of food and vomit (principal); R53.2 Functional quadriplegia; N39.0 Urinary tract infection, site not specified; Z16.12 Extended spectrum beta lactamase (ESBL) resistance; F73 Profound intellectual disabilities; R62.50 Unspecified lack of expected normal physiological development in childhood; R23.3 Spontaneous ecchymoses; B96.1 Klebsiella pneumoniae [K. pneumoniae] as the cause of diseases classified elsewhere; G80.9 Cerebral palsy, unspecified; Z93.1 Gastrostomy status
CPT/HCPCS: 0241U-QW; 36415; 71045-TC-FY; 71250-TC; 80053; 81003; 82803; 83605; 83735; 84100; 84484; 85025; 85610; 85730; 86850; 86900; 86901; 87040; 87086; 87186; 87635; 93005; 93010; 94640; 99285-25; J0131; J3243

== ENCOUNTER 2024-01-19 01:47 | Inpatient (IN) | payer OTHER ==
[2024-01-19 02:15] VITALS: BMI 21.6
[2024-01-19] MEDS ORDERED: ACETAMINOPHEN INJECTION 100 ML IVPB ONE (02:31)
[2024-01-19] MEDS: SODIUM CHLORIDE 1,000 ML IV STA ×2 (02:55→05:52)
[2024-01-19] MEDS: ACETAMINOPHEN 1000 MG/100 ML BAG IVPB ONE (03:04)
[2024-01-19 03:05] LABS: VENOUS BASE EXCESS -7.4 mmol/L (-2-2); VENOUS O2 SATURATION 38.9 % (70-80); VENOUS PCO2 41.5 mmHg (38-52); VENOUS PH 7.278 (7.310-7.410)
[2024-01-19 03:07] LABS: BASO % 0.2 % (0-2.0); EOS % 0.1 % (0-4.5); HEMATOCRIT 32.1 % (32.4-45.2); LYMPH % 4.7 % (8-40); MCH 32.5 pg (25.7-33.7); MCHC 34.2 g/dl (32.0-36.0); MEAN CELL VOLUME 95.2 fl (80-96); MEAN PLT VOLUME 8.3 fl (7.5-11.1); MONO % 8.2 % (3.8-10.2); NEUT % 86.8 % (42.8-82.8); PLATELET COUNT 241 10^3/uL (134-434); RBC 3.37 M/mm3 (3.60-5.2); RDW 19.1 % (11.6-15.6); WHITE BLOOD COUNT 8.9 K/mm3 (4.0-10.0)
[2024-01-19 03:18] LABS: ACTIVATED PTT 36.9 SECONDS (25.2-36.5); INR 1.09 (0.83-1.09); PROTHROMBIN TIME (PATIENT) 12.3 SEC (9.7-13.0)
[2024-01-19 03:26] LABS: POTASSIUM 5.9 mmol/L (3.5-5.1)
[2024-01-19 03:28] LABS: ALBUMIN 3.3 g/dl (3.4-5.0); BLOOD UREA NITROGEN 12.6 mg/dL (7-18); CALCIUM 8.9 mg/dL (8.5-10.1)
[2024-01-19 03:30] LABS: EPI CELLS 4 /uL (0-25.1); HYALINE CASTS 0 /uL (0-3.1); PH,URINE 6.5 (5.0-8.0); URINE APPEARANCE CLEAR; URINE BACTERIA 1865 /uL (0-1359); URINE BILIRUBIN NEGATIVE (NEGATIVE); URINE COLOR YELLOW; URINE GLUCOSE (UA) NEGATIVE (NEGATIVE); URINE KETONE NEGATIVE (NEGATIVE); URINE LEUK ESTERASE 2+ (NEGATIVE); URINE NITRITE NEGATIVE (NEGATIVE); URINE PROTEIN NEGATIVE (NEGATIVE); URINE RBC 3 /uL (0-23.9); URINE UROBILINOGEN 0.2 mg/dL (0.2-1.0); URINE WBC 136 /uL (0-25.8)
[2024-01-19 03:31] LABS: CREATININE 0.5 mg/dL (0.55-1.3)
[2024-01-19 03:33] LABS: BILIRUBIN,TOTAL 0.4 mg/dL (0.2-1); TOT PROT 7.5 g/dl (6.4-8.2)
[2024-01-19] MEDS ORDERED: MEROPENEM 1 GM VIAL (RESTRICTED TO ID) IVPB ONE (03:33)
[2024-01-19] MEDS: MEROPENEM 1 GM in DEXTROSE 5%-WATER 100 ML IVPB ONE (03:41)
[2024-01-19] MEDS: SODIUM CHLORIDE 1,000 ML IV SCH (07:14)
[2024-01-19 07:34] LABS: HEMATOCRIT 27.8 % (32.4-45.2); HEMOGLOBIN 9.4 GM/dL (10.7-15.3); MCH 32.8 pg (25.7-33.7); MCHC 33.8 g/dl (32.0-36.0); MEAN CELL VOLUME 96.9 fl (80-96); MEAN PLT VOLUME 8.3 fl (7.5-11.1); PLATELET COUNT 168 10^3/uL (134-434); RBC 2.87 M/mm3 (3.60-5.2); RDW 18.8 % (11.6-15.6); WHITE BLOOD COUNT 7.2 K/mm3 (4.0-10.0)
[2024-01-19 07:42] LABS: POTASSIUM 3.9 mmol/L (3.5-5.1)
[2024-01-19 07:46] LABS: BLOOD UREA NITROGEN 11.5 mg/dL (7-18)
[2024-01-19 07:48] LABS: ALBUMIN 2.8 g/dl (3.4-5.0); CALCIUM 8.2 mg/dL (8.5-10.1); MAGNESIUM 1.7 mg/dL (1.8-2.4)
[2024-01-19 07:50] LABS: CREATININE 0.4 mg/dL (0.55-1.3)
[2024-01-19 07:51] LABS: BILIRUBIN,TOTAL 0.4 mg/dL (0.2-1)
[2024-01-19] MEDS ORDERED: MAGNESIUM SULFATE IN WATER 2 GM/50 ML IVPB IVPB ONE (09:11)
[2024-01-19] MEDS: MAGNESIUM SULFATE IN WATER 2 GM/50 ML IVPB IVPB ONE (09:22)
[2024-01-19] MEDS: ALBUTEROL SO4 2.5/IPRATROPIUM 0.5 INH SOL 3 ML VIAL.NEB. NEB SCH (09:22)
[2024-01-19] MEDS ORDERED: ENOXAPARIN NA (PORCINE) 40 MG/0.4 ML DISP.SYRIN SQ SCH (10:00)
[2024-01-19] MEDS: ENOXAPARIN NA (PORCINE) 40 MG/0.4 ML DISP.SYRIN SQ SCH (10:55)
[2024-01-19] MEDS: MEROPENEM 1 GM in DEXTROSE 5%-WATER 100 ML IVPB SCH (10:55)
[2024-01-19] MEDS: levETIRAcetam 500 MG/5 ML ORAL SOLUTION (UNIT-DOSE CUPS) GT SCH (10:55)
[2024-01-19] MEDS: OXcarbazepine 300 MG/5 ML UNIT DOSE CUPS GT SCH (11:35)
[2024-01-19] MEDS: LYTES/YERBA SANTA 60 ML SPRAY MM SCH (14:03)
[2024-01-19] MEDS ORDERED: ALBUTEROL SO4 2.5/IPRATROPIUM 0.5 INH SOL 3 ML VIAL.NEB. NEB ONE ×2 (14:09→14:15)
[2024-01-19] MEDS ORDERED: ALBUTEROL SO4 2.5/IPRATROPIUM 0.5 INH SOL 3 ML VIAL.NEB. NEB PRN (14:23)
[2024-01-19] MEDS: TOPIRAMATE 100 MG TABLET GT SCH (17:36)
[2024-01-20] MEDS ORDERED: MEROPENEM 1 GM in DEXTROSE 5%-WATER 100 ML IVPB SCH (04:00)
[2024-01-20 09:07] LABS: HEMATOCRIT 27.8 % (32.4-45.2); HEMOGLOBIN 9.6 GM/dL (10.7-15.3); MCH 33.3 pg (25.7-33.7); MCHC 34.4 g/dl (32.0-36.0); MEAN CELL VOLUME 96.8 fl (80-96); MEAN PLT VOLUME 8.2 fl (7.5-11.1); RBC 2.87 M/mm3 (3.60-5.2); WHITE BLOOD COUNT 4.3 K/mm3 (4.0-10.0)
[2024-01-20 09:08] LABS: PLATELET COUNT 144 10^3/uL (134-434)
[2024-01-20 09:29] LABS: POTASSIUM 3.7 mmol/L (3.5-5.1)
[2024-01-20 09:30] LABS: CALCIUM 8.4 mg/dL (8.5-10.1)
[2024-01-20] MEDS: MEROPENEM 1 GM in DEXTROSE 5%-WATER 100 ML IVPB SCH (09:30)
[2024-01-20 09:31] LABS: ALBUMIN 2.6 g/dl (3.4-5.0); BLOOD UREA NITROGEN 4.9 mg/dL (7-18); MAGNESIUM 1.8 mg/dL (1.8-2.4)
[2024-01-20 09:34] LABS: CREATININE 0.3 mg/dL (0.55-1.3)
[2024-01-20 09:36] LABS: BILIRUBIN,TOTAL 0.2 mg/dL (0.2-1); TOT PROT 5.9 g/dl (6.4-8.2)
[2024-01-20 10:30] LABS: ANISOCYTOSIS 1+; MACROCYTOSIS 1+
[2024-01-20 10:32] LABS: PLATELET ESTIMATE ADEQUATE
[2024-01-20] MEDS: MAGNESIUM SULFATE IN WATER 2 GM/50 ML IVPB IVPB ONE (12:58)
[2024-01-20] MEDS: PATIENT'S OWN MEDICATION (NON-FORMULARY) (Tizanidine Hcl 2 MG Tablet) GT SCH ×2 (13:59→14:05)
[2024-01-20] MEDS: methylPREDNISolone NA SUCC 40 MG/1 ML VIAL IVPUSH SCH (14:05)
[2024-01-20] MEDS: SCOPOLAMINE HYDROBROMIDE 1 PATCH PATCH.TD72 TD SCH (17:37)
[2024-01-21] MEDS: FAMOTIDINE 20 MG/2.5 ML ORAL LIQUID PEG SCH (10:10)
[2024-01-21] MEDS: ALBUTEROL SO4 2.5/IPRATROPIUM 0.5 INH SOL 3 ML VIAL.NEB. NEB SCH (12:05)
[2024-01-21 12:52] LABS: BASO % 0.1 % (0-2.0); EOS % 0.2 % (0-4.5); HEMATOCRIT 26.4 % (32.4-45.2); LYMPH % 37.5 % (8-40); MCH 33.1 pg (25.7-33.7); MCHC 34.2 g/dl (32.0-36.0); MEAN CELL VOLUME 96.6 fl (80-96); MEAN PLT VOLUME 8.5 fl (7.5-11.1); MONO % 11.1 % (3.8-10.2); NEUT % 51.1 % (42.8-82.8); PLATELET COUNT 149 10^3/uL (134-434); RBC 2.73 M/mm3 (3.60-5.2); RDW 18.1 % (11.6-15.6); WHITE BLOOD COUNT 3.5 K/mm3 (4.0-10.0)
[2024-01-21 13:14] LABS: POTASSIUM 3.7 mmol/L (3.5-5.1)
[2024-01-21 13:21] LABS: ALBUMIN 2.6 g/dl (3.4-5.0); BLOOD UREA NITROGEN 9.7 mg/dL (7-18); MAGNESIUM 1.9 mg/dL (1.8-2.4)
[2024-01-21 13:23] LABS: CREATININE 0.3 mg/dL (0.55-1.3)
[2024-01-21 13:25] LABS: BILIRUBIN,TOTAL 0.2 mg/dL (0.2-1); TOT PROT 5.9 g/dl (6.4-8.2)
[2024-01-22 09:46] LABS: EOS % 0.1 % (0-4.5); HEMATOCRIT 25.7 % (32.4-45.2); HEMOGLOBIN 8.8 GM/dL (10.7-15.3); LYMPH % 35.1 % (8-40); MCHC 34.4 g/dl (32.0-36.0); MEAN PLT VOLUME 8.3 fl (7.5-11.1); MONO % 6.5 % (3.8-10.2); NEUT % 58.3 % (42.8-82.8); PLATELET COUNT 143 10^3/uL (134-434); RBC 2.68 M/mm3 (3.60-5.2); RDW 18.3 % (11.6-15.6)
[2024-01-22 10:14] LABS: POTASSIUM 3.7 mmol/L (3.5-5.1)
[2024-01-22 10:19] LABS: ALBUMIN 2.7 g/dl (3.4-5.0); BLOOD UREA NITROGEN 10.6 mg/dL (7-18); CALCIUM 8.5 mg/dL (8.5-10.1); MAGNESIUM 1.7 mg/dL (1.8-2.4)
[2024-01-22 10:23] LABS: CREATININE 0.3 mg/dL (0.55-1.3)
[2024-01-22 10:58] LABS: BILIRUBIN,TOTAL 0.2 mg/dL (0.2-1)
[2024-01-22] MEDS: methylPREDNISolone NA SUCC 40 MG/1 ML VIAL IVPUSH SCH (11:49)
[2024-01-22 19:20] VITALS: RESP 18
[2024-01-23 06:39] VITALS: BP 138/92; PULSE 75; TEMP 97.7
[2024-01-23] MEDS: predniSONE 20 MG TABLET (UD) GT SCH (09:34)
== END 2024-01-23 11:44 | disposition home or self-care (01) | DRG 871 ==
LOC: JER 01:47 → JERBED 05:21 → J8W 15:29
PROVIDERS: ADMIT Internal Medicine; ATTEND Nurse Practitioner Acute Care
DX: A41.9 Sepsis, unspecified organism (principal); J69.0 Pneumonitis due to inhalation of food and vomit; J96.01 Acute respiratory failure with hypoxia; N39.0 Urinary tract infection, site not specified; Z16.12 Extended spectrum beta lactamase (ESBL) resistance; F73 Profound intellectual disabilities; J45.901 Unspecified asthma with (acute) exacerbation; G80.8 Other cerebral palsy; G40.909 Epilepsy, unspecified, not intractable, without status epilepticus; B96.1 Klebsiella pneumoniae [K. pneumoniae] as the cause of diseases classified elsewhere; Z93.1 Gastrostomy status
CPT/HCPCS: 0241U-QW; 36415; 71045-TC-FY; 71250-TC; 80053; 81003; 82803; 83605; 83735; 84484; 84703; 85025; 85027; 85610; 85730; 86140; 87040; 87070; 87086; 87186; 87205; 93005; 93010; 94640; 99285-25; J0131

== ENCOUNTER 2024-04-09 00:32 | Inpatient (IN) | payer OTHER ==
[2024-04-09 02:00] LABS: BASO % 0.1 % (0-2.0); HEMATOCRIT 31.6 % (32.4-45.2); LYMPH % 3.2 % (8-40); MCH 32.1 pg (25.7-33.7); MCHC 34.8 g/dl (32.0-36.0); MEAN CELL VOLUME 92.3 fl (80-96); MEAN PLT VOLUME 6.9 fl (7.5-11.1); MONO % 7.6 % (3.8-10.2); NEUT % 89.1 % (42.8-82.8); PLATELET COUNT 161 10^3/uL (134-434); RBC 3.42 M/mm3 (3.60-5.2); RDW 15.5 % (11.6-15.6); WHITE BLOOD COUNT 4.5 K/mm3 (4.0-10.0)
[2024-04-09 02:16] LABS: EPI CELLS 4 /uL (0-25.1); HYALINE CASTS 0 /uL (0-3.1); PH,URINE 7.5 (5.0-8.0); URINE APPEARANCE CLEAR; URINE BACTERIA 2328 /uL (0-1359); URINE BILIRUBIN NEGATIVE (NEGATIVE); URINE COLOR YELLOW; URINE GLUCOSE (UA) NEGATIVE (NEGATIVE); URINE KETONE NEGATIVE (NEGATIVE); URINE LEUK ESTERASE 3+ (NEGATIVE); URINE NITRITE POSITIVE (NEGATIVE); URINE PROTEIN NEGATIVE (NEGATIVE); URINE RBC 3 /uL (0-23.9); URINE UROBILINOGEN 0.2 mg/dL (0.2-1.0); URINE WBC 8 /uL (0-25.8)
[2024-04-09 02:24] LABS: POTASSIUM 3.9 mmol/L (3.5-5.1)
[2024-04-09 02:28] LABS: ALBUMIN 3.3 g/dl (3.4-5.0); BLOOD UREA NITROGEN 7.9 mg/dL (7-18); MAGNESIUM 1.5 mg/dL (1.8-2.4)
[2024-04-09 02:31] LABS: CREATININE 0.2 mg/dL (0.55-1.3)
[2024-04-09 02:32] LABS: BILIRUBIN,TOTAL 0.3 mg/dL (0.2-1); TOT PROT 6.5 g/dl (6.4-8.2)
[2024-04-09] MEDS: MEROPENEM 500 MG in DEXTROSE 5%-WATER 100 ML IVPB ONE (02:42)
[2024-04-09] MEDS ORDERED: ACETAMINOPHEN INJECTION 100 ML ONE (02:46)
[2024-04-09] MEDS: ACETAMINOPHEN 1000 MG/100 ML BAG IVPB ONE (02:52)
[2024-04-09 04:42] LABS: ARTERIAL BLD GAS O2 SATURATION 98.8 % (95-98); ARTERIAL BLOOD GAS BASE EXCESS -3.9 mmol/L (-2-2); ARTERIAL BLOOD GAS PO2 135.2 mmHg (80-100); ARTERIAL BLOOD GAS pH 7.417 (7.350-7.450)
[2024-04-09 04:43] LABS: ALLENS TEST POSITIVE
[2024-04-09] MEDS: methylPREDNISolone NA SUCC 40 MG/1 ML VIAL IVPUSH SCH ×2 (05:46→10:03)
[2024-04-09] MEDS: ALBUTEROL SO4 2.5/IPRATROPIUM 0.5 INH SOL 3 ML VIAL.NEB. NEB SCH (05:55)
[2024-04-09] MEDS ORDERED: MAGNESIUM 1GM/D5W - 1 GM/100 ML IVPB IVPB ONE (06:16)
[2024-04-09] MEDS: MAGNESIUM SULF 50% (8.12 MEQ/2 ML-1 GM VIAL) IVPB ONE (06:20)
[2024-04-09] MEDS ORDERED: TIGECYCLINE 50 MG in DEXTROSE 5%-WATER - 100 ML IVPB ONE (06:53)
[2024-04-09] MEDS: SODIUM CHLORIDE 500 ML IV STA (07:18)
[2024-04-09 07:44] LABS: HEMATOCRIT 25.9 % (32.4-45.2); HEMOGLOBIN 9.1 GM/dL (10.7-15.3); MCH 32.7 pg (25.7-33.7); MCHC 35.2 g/dl (32.0-36.0); MEAN PLT VOLUME 7.5 fl (7.5-11.1); PLATELET COUNT 146 10^3/uL (134-434); RBC 2.78 M/mm3 (3.60-5.2); RDW 15.8 % (11.6-15.6); WHITE BLOOD COUNT 3.7 K/mm3 (4.0-10.0)
[2024-04-09 07:58] LABS: POTASSIUM 3.8 mmol/L (3.5-5.1)
[2024-04-09 08:01] LABS: CALCIUM 8.7 mg/dL (8.5-10.1)
[2024-04-09 08:02] LABS: ALBUMIN 2.7 g/dl (3.4-5.0); BLOOD UREA NITROGEN 8.4 mg/dL (7-18); MAGNESIUM 2.1 mg/dL (1.8-2.4)
[2024-04-09 08:05] LABS: CREATININE 0.4 mg/dL (0.55-1.3); PHOSPHOROUS 2.1 mg/dL (2.5-4.9)
[2024-04-09 08:07] LABS: TOT PROT 5.5 g/dl (6.4-8.2)
[2024-04-09] MEDS ORDERED: ALBUTEROL SO4 2.5/IPRATROPIUM 0.5 INH SOL 3 ML VIAL.NEB. NEB ONE (08:11)
[2024-04-09 09:01] LABS: BILIRUBIN,TOTAL 0.4 mg/dL (0.2-1)
[2024-04-09] MEDS: ENOXAPARIN NA (PORCINE) 40 MG/0.4 ML DISP.SYRIN SQ SCH (10:02)
[2024-04-09] MEDS: levETIRAcetam 500 MG/5 ML ORAL SOLUTION (UNIT-DOSE CUPS) GT SCH (10:02)
[2024-04-09 10:44] LABS: ERYTHROCYTE SEDIMENTATION RATE 70 mm/hr (0-20)
[2024-04-09] MEDS: OXcarbazepine 300 MG/5 ML UNIT DOSE CUPS GT SCH (11:54)
[2024-04-09] MEDS: TIGECYCLINE 100 MG in DEXTROSE 5%-WATER - 100 ML IVPB ONE (12:16)
[2024-04-09] MEDS: TOPIRAMATE 100 MG TABLET GT SCH (18:08)
[2024-04-10] MEDS ORDERED: ALBUTEROL SO4 2.5/IPRATROPIUM 0.5 INH SOL 3 ML VIAL.NEB. NEB PRN (06:00)
[2024-04-10 07:24] LABS: BASO % 0.1 % (0-2.0); HEMATOCRIT 29.3 % (32.4-45.2); LYMPH % 8.2 % (8-40); MCH 32.5 pg (25.7-33.7); MCHC 34.2 g/dl (32.0-36.0); MONO % 6.3 % (3.8-10.2); NEUT % 85.4 % (42.8-82.8); PLATELET COUNT 183 10^3/uL (134-434); RBC 3.08 M/mm3 (3.60-5.2); WHITE BLOOD COUNT 6.2 K/mm3 (4.0-10.0)
[2024-04-10 07:55] LABS: POTASSIUM 4.4 mmol/L (3.5-5.1)
[2024-04-10 08:19] LABS: ALBUMIN 2.9 g/dl (3.4-5.0); BLOOD UREA NITROGEN 17.7 mg/dL (7-18); CALCIUM 9.3 mg/dL (8.5-10.1)
[2024-04-10 08:24] LABS: BILIRUBIN,TOTAL 0.5 mg/dL (0.2-1); CREATININE 0.4 mg/dL (0.55-1.3); TOT PROT 6.1 g/dl (6.4-8.2)
[2024-04-10] MEDS ORDERED: PATIENT'S OWN MEDICATION (NON-FORMULARY) (Tizanidine Hcl 2 MG Tablet) GT SCH (14:00)
[2024-04-10] MEDS: ALBUTEROL SO4 2.5/IPRATROPIUM 0.5 INH SOL 3 ML VIAL.NEB. NEB SCH (15:20)
[2024-04-10] MEDS: SCOPOLAMINE HYDROBROMIDE 1 PATCH PATCH.TD72 TD SCH (15:39)
[2024-04-10] MEDS: SIMETHICONE 40 MG/0.6 ML BOTTLE GT SCH (15:39)
[2024-04-10] MEDS: FAMOTIDINE 20 MG/2.5 ML ORAL LIQUID PEG SCH (15:41)
[2024-04-11 08:23] LABS: BASO % 0.1 % (0-2.0); HEMOGLOBIN 8.6 GM/dL (10.7-15.3); LYMPH % 9.5 % (8-40); MCH 32.8 pg (25.7-33.7); MCHC 34.3 g/dl (32.0-36.0); MEAN CELL VOLUME 95.7 fl (80-96); MONO % 4.9 % (3.8-10.2); NEUT % 85.5 % (42.8-82.8); PLATELET COUNT 143 10^3/uL (134-434); RBC 2.62 M/mm3 (3.60-5.2); RDW 15.9 % (11.6-15.6); WHITE BLOOD COUNT 6.7 K/mm3 (4.0-10.0)
[2024-04-11 08:39] LABS: POTASSIUM 3.9 mmol/L (3.5-5.1)
[2024-04-11 08:49] LABS: ALBUMIN 2.4 g/dl (3.4-5.0); BLOOD UREA NITROGEN 17.7 mg/dL (7-18); CALCIUM 8.8 mg/dL (8.5-10.1)
[2024-04-11 08:51] LABS: CREATININE 0.4 mg/dL (0.55-1.3)
[2024-04-11 08:53] LABS: BILIRUBIN,TOTAL 0.4 mg/dL (0.2-1); TOT PROT 5.4 g/dl (6.4-8.2)
[2024-04-11] MEDS: AZTREONAM 2 GM in DEXTROSE 5%-WATER 100 ML IVPB SCH ×2 (14:44→17:11)
[2024-04-11] MEDS: AZTREONAM 1 GM in DEXTROSE 5%-WATER - 50 ML IVPB SCH (21:31)
[2024-04-12 11:57] LABS: BASO % 0.1 % (0-2.0); HEMATOCRIT 25.6 % (32.4-45.2); HEMOGLOBIN 8.5 GM/dL (10.7-15.3); LYMPH % 20.3 % (8-40); MCH 32.3 pg (25.7-33.7); MCHC 33.3 g/dl (32.0-36.0); MEAN CELL VOLUME 96.9 fl (80-96); MEAN PLT VOLUME 8.2 fl (7.5-11.1); MONO % 6.3 % (3.8-10.2); NEUT % 73.3 % (42.8-82.8); PLATELET COUNT 123 10^3/uL (134-434); RBC 2.64 M/mm3 (3.60-5.2); RDW 16.1 % (11.6-15.6); WHITE BLOOD COUNT 7.1 K/mm3 (4.0-10.0)
[2024-04-12 12:15] LABS: POTASSIUM 3.7 mmol/L (3.5-5.1)
[2024-04-12 12:18] LABS: ALBUMIN 2.4 g/dl (3.4-5.0); CALCIUM 8.9 mg/dL (8.5-10.1)
[2024-04-12 12:21] LABS: CREATININE 0.3 mg/dL (0.55-1.3)
[2024-04-12 12:23] LABS: BILIRUBIN,TOTAL 0.2 mg/dL (0.2-1); TOT PROT 5.5 g/dl (6.4-8.2)
[2024-04-12 12:27] LABS: BLOOD UREA NITROGEN 12.9 mg/dL (7-18)
[2024-04-12 13:33] VITALS: BMI 28.0
[2024-04-12] MEDS: POLYETHYLENE GLYCOL (HEALTHYLAX) 3350 17 GM PACKET GT SCH (15:16)
[2024-04-12] MEDS: TAMSULOSIN HCL 0.4 MG CAP PO ONE (17:34)
[2024-04-12] MEDS: SENNOSIDES 8.8 MG/5 ML SYRUP GT SCH (22:01)
[2024-04-13 09:34] LABS: POTASSIUM 3.6 mmol/L (3.5-5.1)
[2024-04-13 09:36] LABS: ALBUMIN 2.5 g/dl (3.4-5.0); BLOOD UREA NITROGEN 10.6 mg/dL (7-18); CALCIUM 8.5 mg/dL (8.5-10.1)
[2024-04-13 09:38] LABS: BASO % 0.1 % (0-2.0); EOS % 1.1 % (0-4.5); HEMATOCRIT 25.1 % (32.4-45.2); HEMOGLOBIN 8.5 GM/dL (10.7-15.3); LYMPH % 22.9 % (8-40); MCH 32.6 pg (25.7-33.7); MCHC 33.7 g/dl (32.0-36.0); MEAN CELL VOLUME 96.6 fl (80-96); MEAN PLT VOLUME 8.2 fl (7.5-11.1); MONO % 8.4 % (3.8-10.2); NEUT % 67.5 % (42.8-82.8); PLATELET COUNT 131 10^3/uL (134-434); RBC 2.59 M/mm3 (3.60-5.2); RDW 16.1 % (11.6-15.6); WHITE BLOOD COUNT 6.5 K/mm3 (4.0-10.0)
[2024-04-13 09:39] LABS: CREATININE 0.2 mg/dL (0.55-1.3)
[2024-04-13 09:41] LABS: BILIRUBIN,TOTAL 0.3 mg/dL (0.2-1); TOT PROT 5.6 g/dl (6.4-8.2)
[2024-04-13] MEDS: methylPREDNISolone NA SUCC 40 MG/1 ML VIAL IVPUSH SCH (11:04)
[2024-04-13] MEDS: DOXAZOSIN MESYLATE 2 MG TABLET GT SCH (11:06)
[2024-04-13] MEDS: LIPASE/PROTEASE/AMYLASE 24,000 UNIT CAPSULE PO ONE (13:02)
[2024-04-13] MEDS: SODIUM BICARBONATE 650 MG TABLET PO ONE (13:02)
[2024-04-13] MEDS ORDERED: TUBE FEED DECLOGGING SOLUTION 12,000 UNITS GT PRN (13:15)
[2024-04-13] MEDS: TUBE FEED DECLOGGING SOLUTION 12,000 UNITS GT ONE (14:24)
[2024-04-14] MEDS: ACETAMINOPHEN 1000 MG/100 ML BAG IVPB PRN (15:51)
[2024-04-15 09:11] LABS: BASO % 0.1 % (0-2.0); EOS % 1.5 % (0-4.5); HEMATOCRIT 25.2 % (32.4-45.2); HEMOGLOBIN 8.4 GM/dL (10.7-15.3); LYMPH % 34.3 % (8-40); MCH 32.5 pg (25.7-33.7); MCHC 33.5 g/dl (32.0-36.0); MEAN CELL VOLUME 97.3 fl (80-96); MONO % 14.7 % (3.8-10.2); NEUT % 49.4 % (42.8-82.8); PLATELET COUNT 181 10^3/uL (134-434); RBC 2.59 M/mm3 (3.60-5.2); RDW 15.6 % (11.6-15.6); WHITE BLOOD COUNT 4.8 K/mm3 (4.0-10.0)
[2024-04-15 09:30] LABS: POTASSIUM 3.9 mmol/L (3.5-5.1)
[2024-04-15 09:32] LABS: CALCIUM 8.4 mg/dL (8.5-10.1)
[2024-04-15 09:33] LABS: ALBUMIN 2.4 g/dl (3.4-5.0); BLOOD UREA NITROGEN 11.2 mg/dL (7-18); MAGNESIUM 1.7 mg/dL (1.8-2.4)
[2024-04-15 09:36] LABS: CREATININE 0.2 mg/dL (0.55-1.3); PHOSPHOROUS 3.2 mg/dL (2.5-4.9)
[2024-04-15 09:37] LABS: BILIRUBIN,TOTAL 0.2 mg/dL (0.2-1)
[2024-04-15 09:38] LABS: TOT PROT 5.5 g/dl (6.4-8.2)
[2024-04-17 09:22] LABS: HEMATOCRIT 28.4 % (32.4-45.2); HEMOGLOBIN 9.5 GM/dL (10.7-15.3); MCH 32.4 pg (25.7-33.7); MCHC 33.4 g/dl (32.0-36.0); MEAN PLT VOLUME 7.5 fl (7.5-11.1); PLATELET COUNT 350 10^3/uL (134-434); RBC 2.93 M/mm3 (3.60-5.2); RDW 15.7 % (11.6-15.6); WHITE BLOOD COUNT 3.8 K/mm3 (4.0-10.0)
[2024-04-17 09:34] LABS: POTASSIUM 3.6 mmol/L (3.5-5.1)
[2024-04-17 09:40] LABS: ALBUMIN 2.8 g/dl (3.4-5.0)
[2024-04-17 09:41] LABS: CALCIUM 8.7 mg/dL (8.5-10.1)
[2024-04-17 09:42] LABS: BLOOD UREA NITROGEN 9.5 mg/dL (7-18); MAGNESIUM 1.8 mg/dL (1.8-2.4)
[2024-04-17 09:43] LABS: CREATININE 0.3 mg/dL (0.55-1.3); PHOSPHOROUS 3.9 mg/dL (2.5-4.9)
[2024-04-17 09:44] LABS: BILIRUBIN,TOTAL 0.3 mg/dL (0.2-1); TOT PROT 6.1 g/dl (6.4-8.2)
[2024-04-17] MEDS: ACETAMINOPHEN 1000 MG/100 ML BAG IVPB ONE (19:40)
[2024-04-18 14:53] VITALS: BP 116/80; PULSE 75; RESP 18; TEMP 96.8
== END 2024-04-18 15:50 | disposition home or self-care (01) | DRG 177 ==
LOC: JER 00:32 → JERBED 03:16 → J4W 09:53
PROVIDERS: ADMIT Internal Medicine; ATTEND Internal Medicine
DX: J69.0 Pneumonitis due to inhalation of food and vomit (principal); J96.21 Acute and chronic respiratory failure with hypoxia; R53.2 Functional quadriplegia; N39.0 Urinary tract infection, site not specified; E87.1 Hypo-osmolality and hyponatremia; F73 Profound intellectual disabilities; B96.20 Unspecified Escherichia coli [E. coli] as the cause of diseases classified elsewhere; R74.01 Elevation of levels of liver transaminase levels; R33.9 Retention of urine, unspecified; E83.42 Hypomagnesemia; G80.9 Cerebral palsy, unspecified
CPT/HCPCS: 0241U-QW; 36415; 36600; 71045-TC-FY; 71250-TC; 76705-TC; 80053; 80177; 80183; 80201; 81003; 82803; 83605; 83735; 84100; 85025; 85027; 85651; 86140; 86704; 86705; 86803; 87040; 87086; 87186; 87340; 87517; 87635; 93005; 93010; 94640; 97163-GP; 99285-25; J0131; J3243

== ENCOUNTER 2024-06-26 17:49 | Emergency (ER) | payer OTHER ==
[2024-06-26 18:11] VITALS: TEMP 97.3; BMI 25.9
[2024-06-26 19:17] LABS: BASO % 0.2 % (0-2.0); EOS % 0.8 % (0-4.5); HEMATOCRIT 29.6 % (32.4-45.2); HEMOGLOBIN 9.7 GM/dL (10.7-15.3); LYMPH % 34.6 % (8-40); MCH 32.8 pg (25.7-33.7); MCHC 32.9 g/dl (32.0-36.0); MEAN CELL VOLUME 99.5 fl (80-96); MEAN PLT VOLUME 6.9 fl (7.5-11.1); MONO % 6.5 % (3.8-10.2); NEUT % 57.9 % (42.8-82.8); PLATELET COUNT 374 10^3/uL (134-434); RBC 2.98 M/mm3 (3.60-5.2); RDW 18.8 % (11.6-15.6); WHITE BLOOD COUNT 2.7 K/mm3 (4.0-10.0)
[2024-06-26 19:31] LABS: INR 0.96 (0.83-1.09); PROTHROMBIN TIME (PATIENT) 10.9 SEC (9.7-13.0)
[2024-06-26 19:33] LABS: ACTIVATED PTT 46.8 SECONDS (25.2-36.5)
[2024-06-26 19:34] LABS: POTASSIUM 4.2 mmol/L (3.5-5.1)
[2024-06-26 19:36] LABS: ALBUMIN 3.2 g/dl (3.4-5.0); BLOOD UREA NITROGEN 9.8 mg/dL (7-18); CALCIUM 9.3 mg/dL (8.5-10.1); VENOUS BASE EXCESS -3.7 mmol/L (-2-2); VENOUS O2 SATURATION 94.7 % (70-80); VENOUS PCO2 38.1 mmHg (38-52); VENOUS PH 7.364 (7.310-7.410)
[2024-06-26 19:39] LABS: CREATININE 0.4 mg/dL (0.55-1.3)
[2024-06-26 19:41] LABS: BILIRUBIN,TOTAL 0.3 mg/dL (0.2-1); TOT PROT 6.8 g/dl (6.4-8.2)
[2024-06-26 22:35] LABS: EPI CELLS 6 /uL (0-25.1); HYALINE CASTS 1 /uL (0-3.1); PH,URINE 7.5 (5.0-8.0); URINE APPEARANCE TURBID; URINE BACTERIA 1079 /uL (0-1359); URINE BILIRUBIN NEGATIVE (NEGATIVE); URINE COLOR YELLOW; URINE GLUCOSE (UA) NEGATIVE (NEGATIVE); URINE KETONE NEGATIVE (NEGATIVE); URINE LEUK ESTERASE TRACE (NEGATIVE); URINE NITRITE NEGATIVE (NEGATIVE); URINE PROTEIN NEGATIVE (NEGATIVE); URINE RBC 26 /uL (0-23.9); URINE UROBILINOGEN 0.2 mg/dL (0.2-1.0); URINE WBC 22 /uL (0-25.8)
[2024-06-26] MEDS: CEPHALEXIN MONOHYDRATE 500 MG CAPSULE (UD) PEG ONE (23:21)
[2024-06-26] MEDS: SULFAMETHOXAZOLE/TMP 200MG-40MG/5ML PEG ONE (23:32)
[2024-06-26 23:51] VITALS: BP 122/84; PULSE 70; RESP 14
== END 2024-06-27 00:09 | disposition home or self-care (01) ==
LOC: JER 17:49
DX: N39.0 Urinary tract infection, site not specified (principal); I95.9 Hypotension, unspecified; Z20.822 Contact with and (suspected) exposure to COVID-19
CPT/HCPCS: 0241U-QW; 36415; 71045-TC-FY; 80053; 81003; 82803; 83605; 84484; 85025; 85610; 85730; 86850; 86900; 86901; 87040; 87086; 87186; 93005; 93010; 99285-25

== ENCOUNTER 2024-09-07 18:28 | Observation (INO) | payer OTHER ==
[2024-09-07 18:39] VITALS: RESP 18
[2024-09-07 20:49] LABS: BASO % 0.4 % (0-2.0); EOS % 0.5 % (0-4.5); HEMATOCRIT 31.3 % (32.4-45.2); HEMOGLOBIN 10.5 GM/dL (10.7-15.3); LYMPH % 32.3 % (8-40); MCH 32.6 pg (25.7-33.7); MCHC 33.6 g/dl (32.0-36.0); MEAN PLT VOLUME 7.2 fl (7.5-11.1); MONO % 7.6 % (3.8-10.2); NEUT % 59.2 % (42.8-82.8); PLATELET COUNT 341 10^3/uL (134-434); RBC 3.22 M/mm3 (3.60-5.2); RDW 14.6 % (11.6-15.6); WHITE BLOOD COUNT 4.4 K/mm3 (4.0-10.0)
[2024-09-07 21:09] LABS: POTASSIUM 4.5 mmol/L (3.5-5.1)
[2024-09-07 21:10] LABS: CALCIUM 9.3 mg/dL (8.5-10.1)
[2024-09-07 21:11] LABS: BLOOD UREA NITROGEN 6.5 mg/dL (7-18)
[2024-09-07 21:14] LABS: CREATININE 0.2 mg/dL (0.55-1.3)
[2024-09-07 23:41] VITALS: BMI 23.5
[2024-09-08] MEDS: LACTATED RINGERS SOLUTION 1,000 ML/1,000 ML INFUS.BAG IV SCH (02:42)
[2024-09-08] MEDS: levETIRAcetam 500 MG/5 ML INJECTION VIAL IVPB ONE (04:43)
[2024-09-08] MEDS: levETIRAcetam 500 MG/5 ML INJECTION VIAL IVPB SCH (08:56)
[2024-09-08] MEDS ORDERED: ALBUTEROL SO4 2.5/IPRATROPIUM 0.5 INH SOL 3 ML VIAL.NEB. NEB SCH (10:00)
[2024-09-08] MEDS: HEPARIN NA (PORCINE) 5,000 UNITS/ML 1ML VIAL SQ SCH (10:36)
[2024-09-08] MEDS: SCOPOLAMINE HYDROBROMIDE 1 PATCH PATCH.TD72 TD SCH (10:36)
[2024-09-08] MEDS: ALBUTEROL SO4 2.5/IPRATROPIUM 0.5 INH SOL 3 ML VIAL.NEB. NEB SCH (11:15)
[2024-09-08] MEDS: DEXTROSE 5%-LACTATED RINGERS 1,000 ML IV SCH (14:10)
[2024-09-08] MEDS: DEXTROSE 5%-NORMAL SALINE 1,000 ML IV SCH (14:54)
[2024-09-09 09:20] LABS: BASO % 0.2 % (0-2.0); EOS % 0.5 % (0-4.5); HEMATOCRIT 29.4 % (32.4-45.2); LYMPH % 22.3 % (8-40); MEAN PLT VOLUME 6.9 fl (7.5-11.1); MONO % 5.7 % (3.8-10.2); NEUT % 71.3 % (42.8-82.8); PLATELET COUNT 295 10^3/uL (134-434); RBC 3.03 M/mm3 (3.60-5.2); RDW 14.4 % (11.6-15.6); WHITE BLOOD COUNT 4.9 K/mm3 (4.0-10.0)
[2024-09-09 09:26] LABS: INR 1.21 (0.83-1.09); PROTHROMBIN TIME (PATIENT) 13.3 SEC (9.7-13.0)
[2024-09-09 09:39] LABS: POTASSIUM 3.8 mmol/L (3.5-5.1)
[2024-09-09 09:43] LABS: CALCIUM 8.9 mg/dL (8.5-10.1)
[2024-09-09 09:44] LABS: BLOOD UREA NITROGEN 4.4 mg/dL (7-18); MAGNESIUM 1.8 mg/dL (1.8-2.4)
[2024-09-09 09:47] LABS: CREATININE 0.2 mg/dL (0.55-1.3); PHOSPHOROUS 3.4 mg/dL (2.5-4.9)
[2024-09-10] MEDS ORDERED: ALBUTEROL SO4 0.083% IH SOL 2.5 MG/3 ML VIAL.NEB. NEB PRN (11:49)
[2024-09-10] MEDS ORDERED: PATIENT'S OWN MEDICATION (NON-FORMULARY) (Lactose-Reduced Food/Fiber [Jevity 1.5 Cal Liqui GT SCH (12:00)
[2024-09-10] MEDS: levETIRAcetam 500 MG/5 ML ORAL SOLUTION (UNIT-DOSE CUPS) GT SCH (12:15)
[2024-09-10] MEDS: SENNOSIDES/DOCUSATE COMBO (SENNA PLUS) TABLET (UD) PO SCH (12:16)
[2024-09-10] MEDS: SODIUM CHLORIDE 1 GM TABLET GT SCH (12:16)
[2024-09-10] MEDS: FAMOTIDINE 20 MG/2.5 ML ORAL LIQUID PEG SCH (13:10)
[2024-09-10] MEDS: OXcarbazepine 300 MG/5 ML UNIT DOSE CUPS GT SCH (13:11)
[2024-09-10 13:45] LABS: CHLORIDE 113 mmol/L (98-107); POTASSIUM 3.3 mmol/L (3.5-5.1); SODIUM 145 mmol/L (136-145)
[2024-09-10 13:48] VITALS: BP 122/86; PULSE 82; TEMP 98.1
[2024-09-10 13:49] LABS: CALCIUM 8.6 mg/dL (8.5-10.1); GLUCOSE,RANDOM 125 mg/dL (74-106)
[2024-09-10 13:50] LABS: ALBUMIN 2.8 g/dl (3.4-5.0); ANION GAP 7 mmol/L (4-13); CO2 25 mmol/L (21-32); MAGNESIUM 1.7 mg/dL (1.8-2.4)
[2024-09-10 13:53] LABS: CREATININE 0.2 mg/dL (0.55-1.3); PHOSPHOROUS 3.1 mg/dL (2.5-4.9); SGOT/AST 80 U/L (15-37); SGPT/ALT 77 U/L (13-61)
[2024-09-10 13:54] LABS: ALK PHOS 373 U/L (45-117); BILIRUBIN,TOTAL 0.4 mg/dL (0.2-1); TOT PROT 5.9 g/dl (6.4-8.2)
[2024-09-10] MEDS ORDERED: PATIENT'S OWN MEDICATION (NON-FORMULARY) (Tizanidine Hcl 2 MG Tablet) GT SCH (14:00)
[2024-09-10] MEDS ORDERED: SIMETHICONE 40 MG/0.6 ML BOTTLE GT SCH (14:00)
[2024-09-10] MEDS: SIMETHICONE 40 MG/0.6 ML BOTTLE GT SCH (14:33)
[2024-09-10] MEDS ORDERED: TOPIRAMATE 200 MG TABLET GT SCH (18:00)
[2024-09-10] MEDS ORDERED: CHOLECALCIFEROL (VIT D3) 1,000 UNIT (25 MCG) TABLET GT SCH (22:00)
== END 2024-09-10 15:40 ==
LOC: JER 18:28 → JERBED 20:18 → J6S 23:10
PROVIDERS: ADMIT Internal Medicine; ATTEND Internal Medicine
PROC: 3E0F7GC Introduction of Other Therapeutic Substance into Respiratory Tract, Via Natural or Artificial Opening (ICD-10-PCS; principal; 2024-09-07)
PROC: 3E0337Z Introduction of Electrolytic and Water Balance Substance into Peripheral Vein, Percutaneous Approach (ICD-10-PCS; 2024-09-07)
PROC: 3E023GC Introduction of Other Therapeutic Substance into Muscle, Percutaneous Approach (ICD-10-PCS; 2024-09-07)
PROC: 3E033GC Introduction of Other Therapeutic Substance into Peripheral Vein, Percutaneous Approach (ICD-10-PCS; 2024-09-07)
PROC: 0D20XUZ Change Feeding Device in Upper Intestinal Tract, External Approach (ICD-10-PCS; 2024-09-10)
DX: K94.20 Gastrostomy complication, unspecified (principal); G80.9 Cerebral palsy, unspecified; G80.8 Other cerebral palsy; R79.89 Other specified abnormal findings of blood chemistry; G40.909 Epilepsy, unspecified, not intractable, without status epilepticus; J45.909 Unspecified asthma, uncomplicated; R00.1 Bradycardia, unspecified; Z88.0 Allergy status to penicillin; R62.50 Unspecified lack of expected normal physiological development in childhood; J98.4 Other disorders of lung
CPT/HCPCS: 36415; 49440; 80048; 80053; 83735; 84100; 85025; 85610; 86850; 86900; 86901; 94640; 96361; 96372; 96374; 96375; 99285-25; G0378; J1644

== ENCOUNTER 2024-11-17 10:18 | Emergency (ER) | payer OTHER ==
[2024-11-17 10:30] VITALS: BP 126/84; PULSE 64; RESP 18; TEMP 97.8; BMI 14.0
== END 2024-11-17 13:01 | disposition home or self-care (01) ==
LOC: JER 10:18
DX: S63.610A Unspecified sprain of right index finger, initial encounter (principal); X58.XXXA Exposure to other specified factors, initial encounter
CPT/HCPCS: 73130-TC-RT-FY; 99283-25

== ENCOUNTER 2025-03-07 12:50 | Inpatient (IN) | payer OTHER ==
[2025-03-07 14:54] LABS: GLUCOSE,RANDOM 91.0 mg/dL (74-106)
[2025-03-07 14:55] LABS: TOT PROT 6.8 g/dl (6.4-8.2)
[2025-03-07 14:56] LABS: CO2 19.0 mmol/L (21-32)
[2025-03-07 14:57] LABS: ALK PHOS 315.0 U/L (40-150)
[2025-03-07 15:00] LABS: CREATININE 0.28 mg/dL (0.55-1.3); SGOT/AST 31.0 U/L (5-34); SGPT/ALT 95.0 U/L (0-55)
[2025-03-07 16:11] LABS: IMMATURE PLATELET FRACTION # 4.10 x10^3/uL; MCHC 34.1 g/dl (32.2-35.5); MEAN CELL VOLUME 93.8 fl (79.4-94.8); MEAN PLT VOLUME 10.3 fl (9.4-12.3); RDW 15.4 % (12.1-16.8)
[2025-03-07 16:22] LABS: INR 1.0 (0.83-1.09); PROTHROMBIN TIME (PATIENT) 11.0 SEC (9.7-13.0)
[2025-03-07 16:25] LABS: ACTIVATED PTT 37.9 SECONDS (25.2-36.5)
[2025-03-07] MEDS ORDERED: MAGNESIUM SULFATE IN WATER 2 GM/50 ML IVPB IVPB ONE (16:34)
[2025-03-07] MEDS: MAGNESIUM SULF 50% (8.12 MEQ/2 ML-1 GM VIAL) IVPB ONE (16:38)
[2025-03-07 18:39] LABS: EPI CELLS 10 /uL (0-25.1); HYALINE CASTS 0 /uL (0-3.1); URINE APPEARANCE CLEAR; URINE BACTERIA >9,000 /uL (0-1359); URINE BILIRUBIN NEGATIVE (NEGATIVE); URINE COLOR YELLOW; URINE GLUCOSE (UA) NEGATIVE (NEGATIVE); URINE KETONE NEGATIVE (NEGATIVE); URINE LEUK ESTERASE 3+ (NEGATIVE); URINE NITRITE POSITIVE (NEGATIVE); URINE PROTEIN NEGATIVE (NEGATIVE); URINE RBC 13 /uL (0-23.9); URINE UROBILINOGEN 0.2 mg/dL (0.2-1.0); URINE WBC 70 /uL (0-25.8)
[2025-03-07] MEDS ORDERED: ALBUTEROL SO4 0.083% IH SOL 2.5 MG/3 ML VIAL.NEB. NEB PRN (19:04)
[2025-03-07] MEDS: ALBUTEROL SO4 2.5/IPRATROPIUM 0.5 INH SOL 3 ML VIAL.NEB. NEB SCH (21:05)
[2025-03-07] MEDS: INSULIN ASPART SLIDING SCALE (NOVOLOG) 1 VIAL SQ SCH (21:08)
[2025-03-07] MEDS: OXcarbazepine 300 MG/5 ML UNIT DOSE CUPS GT SCH (22:43)
[2025-03-07] MEDS: levETIRAcetam 500 MG/5 ML ORAL SOLUTION (UNIT-DOSE CUPS) GT SCH (22:43)
[2025-03-07] MEDS: SODIUM CHLORIDE 1 GM TABLET GT SCH (22:43)
[2025-03-08] MEDS: TOPIRAMATE 100 MG TABLET GT SCH (04:20)
[2025-03-08 07:35] LABS: BASOPHILS # 0.01 x10^3/uL (0.01-0.08); EOSINOPHILS # 0.04 x10^3/uL (0.04-0.36); MONOCYTE # 0.26 x10^3/uL (0.24-0.86); RDW 15.9 % (12.1-16.8)
[2025-03-08 07:37] LABS: ABSOLUTE IMMATURE GRANULOCYTES 0.00 x10^3/uL (0.0-0.031); EOSINOPHIL % 0.9 % (0.7-5.8); IMMATURE PLATELET FRACTION # 4.50 x10^3/uL; MCHC 31.9 g/dl (32.2-35.5); MEAN CELL VOLUME 98.3 fl (79.4-94.8); MEAN PLT VOLUME 11.0 fl (9.4-12.3); MONOCYTE % 5.8 % (4.7-12.5)
[2025-03-08 07:42] LABS: GLUCOSE,RANDOM 101.0 mg/dL (74-106)
[2025-03-08 07:43] LABS: TOT PROT 6.8 g/dl (6.4-8.2)
[2025-03-08 07:45] LABS: ALK PHOS 323.0 U/L (40-150)
[2025-03-08 07:48] LABS: CREATININE 0.28 mg/dL (0.55-1.3); SGOT/AST 37.0 U/L (5-34); SGPT/ALT 97.0 U/L (0-55)
[2025-03-08 07:52] LABS: CO2 21.0 mmol/L (21-32)
[2025-03-08] MEDS: ENOXAPARIN NA (PORCINE) 40 MG/0.4 ML DISP.SYRIN SQ SCH (09:57)
[2025-03-08] MEDS: MINERAL OIL/PET HY-PHL TOPICAL OINTMENT 454 GM JAR TP SCH (13:06)
[2025-03-08 15:53] VITALS: BMI 17.4
[2025-03-09] MEDS: SODIUM CHLORIDE 1 GM TABLET GT SCH (09:24)
[2025-03-09] MEDS ORDERED: SULFAMETHOXAZOLE/TMP 200MG-40MG/5ML GT SCH (23:12)
[2025-03-09] MEDS: SULFAMETHOXAZOLE/TMP 200MG-40MG/5ML GT SCH (23:24)
[2025-03-09] MEDS: SULFAMETHOXAZOLE/TRIMETHOPRIM 800MG/160MG D.S. TABLET PO SCH (23:39)
[2025-03-10 07:44] LABS: MCHC 31.9 g/dl (32.2-35.5); MEAN CELL VOLUME 100.0 fl (79.4-94.8); MEAN PLT VOLUME 11.1 fl (9.4-12.3); RDW 16.0 % (12.1-16.8)
[2025-03-10 08:06] LABS: GLUCOSE,RANDOM 102.0 mg/dL (74-106); TOT PROT 6.9 g/dl (6.4-8.2)
[2025-03-10 08:07] LABS: CO2 20.0 mmol/L (21-32)
[2025-03-10 08:09] LABS: ALK PHOS 381.0 U/L (40-150)
[2025-03-10 08:11] LABS: SGOT/AST 94.0 U/L (5-34); SGPT/ALT 132.0 U/L (0-55)
[2025-03-10 08:12] LABS: CREATININE 0.32 mg/dL (0.55-1.3)
[2025-03-10] MEDS: MAGNESIUM 1GM/D5W - 1 GM/100 ML IVPB IVPB ONE (15:05)
[2025-03-10] MEDS: MAGNESIUM SULF 50% (8.12 MEQ/2 ML-1 GM VIAL) IVPB ONE (15:05)
[2025-03-11 09:53] LABS: ABSOLUTE IMMATURE GRANULOCYTES 0.01 x10^3/uL (0.0-0.031); BASOPHILS # 0.01 x10^3/uL (0.01-0.08); EOSINOPHIL % 0.6 % (0.7-5.8); EOSINOPHILS # 0.02 x10^3/uL (0.04-0.36); MCHC 29.6 g/dl (32.2-35.5); MEAN CELL VOLUME 105.7 fl (79.4-94.8); MEAN PLT VOLUME 9.9 fl (9.4-12.3); MONOCYTE # 0.28 x10^3/uL (0.24-0.86); MONOCYTE % 8.5 % (4.7-12.5); RDW 16.3 % (12.1-16.8)
[2025-03-11 10:15] LABS: GLUCOSE,RANDOM 112.0 mg/dL (74-106); TOT PROT 7.2 g/dl (6.4-8.2)
[2025-03-11 10:16] LABS: CO2 17.0 mmol/L (21-32)
[2025-03-11 10:18] LABS: ALK PHOS 381.0 U/L (40-150)
[2025-03-11 10:21] LABS: CREATININE 0.4 mg/dL (0.55-1.3); SGOT/AST 71.0 U/L (5-34)
[2025-03-11 10:42] LABS: SGPT/ALT 136.0 U/L (0-55)
[2025-03-11] MEDS: SODIUM CHLORIDE 1 GM TABLET GT SCH (23:29)
[2025-03-12 09:22] LABS: IMMATURE PLATELET FRACTION # 3.10 x10^3/uL; MCHC 31.8 g/dl (32.2-35.5); MEAN CELL VOLUME 100.6 fl (79.4-94.8); MEAN PLT VOLUME 10.4 fl (9.4-12.3); RDW 16.2 % (12.1-16.8)
[2025-03-12 09:40] LABS: GLUCOSE,RANDOM 99.0 mg/dL (74-106)
[2025-03-12 09:41] LABS: TOT PROT 7.5 g/dl (6.4-8.2)
[2025-03-12 09:42] LABS: CO2 21.0 mmol/L (21-32)
[2025-03-12 09:43] LABS: ALK PHOS 387.0 U/L (40-150)
[2025-03-12 09:46] LABS: CREATININE 0.48 mg/dL (0.55-1.3); SGOT/AST 84.0 U/L (5-34); SGPT/ALT 151.0 U/L (0-55)
[2025-03-12] MEDS: AMINO ACIDS/PROTEIN HYDROLYS 30 ML LIQUID.PKT GT SCH (12:22)
[2025-03-12] MEDS: ASCORBIC ACID 500 MG/5 ML UNIT DOSE CUP GT SCH (14:20)
[2025-03-12] MEDS: ASCORBIC ACID 500 MG TABLET (FP) GT SCH (14:20)
[2025-03-12] MEDS: MULTIVIT-MINERALS ORAL LIQUID GT SCH (14:21)
[2025-03-12] MEDS: SODIUM CHLORIDE 1 GM TABLET GT SCH (14:24)
[2025-03-12 17:12] LABS: GLUCOSE,RANDOM 113.0 mg/dL (74-106)
[2025-03-12 17:13] LABS: CO2 20.0 mmol/L (21-32)
[2025-03-12 17:17] LABS: CREATININE 0.4 mg/dL (0.55-1.3)
[2025-03-13 07:09] LABS: MCHC 32.2 g/dl (32.2-35.5); MEAN CELL VOLUME 98.3 fl (79.4-94.8); MEAN PLT VOLUME 9.2 fl (9.4-12.3); RDW 15.9 % (12.1-16.8)
[2025-03-13 07:42] LABS: GLUCOSE,RANDOM 93.0 mg/dL (74-106); TOT PROT 7.2 g/dl (6.4-8.2)
[2025-03-13 07:44] LABS: CO2 20.0 mmol/L (21-32)
[2025-03-13 07:45] LABS: ALK PHOS 360.0 U/L (40-150)
[2025-03-13 07:48] LABS: CREATININE 0.41 mg/dL (0.55-1.3); SGOT/AST 116.0 U/L (5-34); SGPT/ALT 176.0 U/L (0-55)
[2025-03-13 09:54] VITALS: PULSE 101; RESP 18
[2025-03-13] MEDS: ACETAMINOPHEN 650 MG/20.3 ML ORAL SOLUTION (CUPS) PO ONE (14:14)
[2025-03-13 14:40] VITALS: BP 116/82; TEMP 97.7
== END 2025-03-13 17:46 | disposition home or self-care (01) | DRG 640 ==
LOC: JER 12:50 → JERBED 16:25 → J8W 20:05 → OBSVTOIN 03-08 09:05
PROVIDERS: ADMIT Student in an Organized Health Care Education/Training Program; ATTEND Nurse Practitioner Acute Care
DX: E87.1 Hypo-osmolality and hyponatremia (principal); G82.50 Quadriplegia, unspecified; N39.0 Urinary tract infection, site not specified; D69.6 Thrombocytopenia, unspecified; G40.909 Epilepsy, unspecified, not intractable, without status epilepticus; L89.152 Pressure ulcer of sacral region, stage 2; L89.890 Pressure ulcer of other site, unstageable; K76.0 Fatty (change of) liver, not elsewhere classified; R79.89 Other specified abnormal findings of blood chemistry; B96.1 Klebsiella pneumoniae [K. pneumoniae] as the cause of diseases classified elsewhere; J45.909 Unspecified asthma, uncomplicated
CPT/HCPCS: 36415; 71045-TC-FY; 80048; 80053; 81003; 82436; 82962; 83735; 83930; 83935; 84100; 84300; 84439; 84443; 85025; 85027; 85610; 85730; 86850; 86900; 86901; 87086; 87635; 94640; 99285-25; G0378

== ENCOUNTER 2025-04-15 11:39 | Inpatient (IN) | payer OTHER ==
[2025-04-15 11:58] VITALS: BMI 22.9
[2025-04-15 13:38] LABS: MCHC 32.5 g/dl (32.2-35.5); MEAN CELL VOLUME 102.0 fl (79.4-94.8); MEAN PLT VOLUME 10.0 fl (9.4-12.3); RDW 15.7 % (12.1-16.8)
[2025-04-15 13:54] LABS: BG HCT 34.0 % (32.4-45.2); GLUCOSE,RANDOM 101.0 mg/dL (74-106); TOT PROT 6.6 g/dl (6.4-8.2); VENOUS BASE EXCESS -4.2 mmol/L (-2-2); VENOUS O2 SATURATION 96.1 % (70-80); VENOUS PCO2 36.2 mmHg (38-52); VENOUS PH 7.371 (7.310-7.410)
[2025-04-15 13:55] LABS: CO2 19.0 mmol/L (21-32)
[2025-04-15 13:57] LABS: ALK PHOS 182.0 U/L (40-150)
[2025-04-15 14:00] LABS: CREATININE 0.31 mg/dL (0.55-1.3); SGOT/AST 18.0 U/L (5-34); SGPT/ALT 31.0 U/L (0-55)
[2025-04-15] MEDS ORDERED: ACETAMINOPHEN INJECTION 100 ML ONE (14:01)
[2025-04-15] MEDS: ACETAMINOPHEN 1000 MG/100 ML BAG IVPB ONE (14:06)
[2025-04-15 14:09] LABS: EPI CELLS 34 /uL (0-25.1); HYALINE CASTS 0 /uL (0-3.1); URINE APPEARANCE CLEAR; URINE BACTERIA >9,000 /uL (0-1359); URINE BILIRUBIN NEGATIVE (NEGATIVE); URINE COLOR YELLOW; URINE GLUCOSE (UA) NEGATIVE (NEGATIVE); URINE KETONE NEGATIVE (NEGATIVE); URINE LEUK ESTERASE 3+ (NEGATIVE); URINE NITRITE POSITIVE (NEGATIVE); URINE PROTEIN NEGATIVE (NEGATIVE); URINE RBC 5 /uL (0-23.9); URINE UROBILINOGEN 0.2 mg/dL (0.2-1.0); URINE WBC 94 /uL (0-25.8)
[2025-04-15 16:08] LABS: INR 0.96 (0.83-1.09); PROTHROMBIN TIME (PATIENT) 10.6 SEC (9.7-13.0)
[2025-04-15 16:10] LABS: ACTIVATED PTT 36.2 SECONDS (25.2-36.5)
[2025-04-15] MEDS: TOBRAMYCIN SULFATE 120 MG in SODIUM CHLORIDE 100 ML IVPB ONE (18:45)
[2025-04-15] MEDS ORDERED: DIAZEPAM IN PRN (22:05)
[2025-04-15] MEDS ORDERED: guaiFENesin 200 MG/10 ML 10 ML UNIT-DOSE CUPS GT PRN (22:05)
[2025-04-15] MEDS ORDERED: MAG HYDROX/AL HYDROX/SIMETH 30 ML UNIT-DOSE CUP GT PRN (22:05)
[2025-04-15] MEDS ORDERED: SODIUM CHLORIDE NASAL SPRAY 44 ML BOTTLE NS PRN (22:05)
[2025-04-15] MEDS ORDERED: ALBUTEROL SO4 0.083% IH SOL 2.5 MG/3 ML VIAL.NEB. NEB PRN (22:05)
[2025-04-15] MEDS ORDERED: NAPHAZOLINE/PHENIRAMINE OPHTHALMIC 15 ML BOTTLE OU PRN (22:05)
[2025-04-15] MEDS ORDERED: diphenhydrAMINE HCL 12.5 MG/5 ML UNIT-DOSE CUPS GT PRN (22:05)
[2025-04-15] MEDS ORDERED: BACITRACIN ZINC 15 GM TUBE TOPICAL OINTMENT TP PRN (22:05)
[2025-04-15] MEDS ORDERED: SIMETHICONE 40 MG/0.6 ML BOTTLE GT PRN (22:05)
[2025-04-15] MEDS: SCOPOLAMINE HYDROBROMIDE 1 PATCH PATCH.TD72 TD SCH (22:34)
[2025-04-16] MEDS: TOPIRAMATE 100 MG TABLET GT SCH (05:20)
[2025-04-16] MEDS: SODIUM CHLORIDE 1 GM TABLET GT SCH (06:21)
[2025-04-16] MEDS: ALBUTEROL SO4 2.5/IPRATROPIUM 0.5 INH SOL 3 ML VIAL.NEB. NEB SCH (07:55)
[2025-04-16] MEDS: AMINO ACIDS/PROTEIN HYDROLYS 30 ML LIQUID.PKT GT SCH ×2 (08:36→16:44)
[2025-04-16 08:46] LABS: ABSOLUTE IMMATURE GRANULOCYTES 0.01 x10^3/uL (0.0-0.031); BASOPHILS # 0.01 x10^3/uL (0.01-0.08); EOSINOPHIL % 0.4 % (0.7-5.8); EOSINOPHILS # 0.02 x10^3/uL (0.04-0.36); MCHC 32.9 g/dl (32.2-35.5); MEAN CELL VOLUME 101.3 fl (79.4-94.8); MEAN PLT VOLUME 10.3 fl (9.4-12.3); MONOCYTE # 0.39 x10^3/uL (0.24-0.86); MONOCYTE % 7.9 % (4.7-12.5); RDW 15.8 % (12.1-16.8)
[2025-04-16 09:10] LABS: GLUCOSE,RANDOM 90.0 mg/dL (74-106); TOT PROT 7.0 g/dl (6.4-8.2)
[2025-04-16 09:11] LABS: CO2 24.0 mmol/L (21-32)
[2025-04-16 09:13] LABS: ALK PHOS 221.0 U/L (40-150)
[2025-04-16 09:15] LABS: SGOT/AST 28.0 U/L (5-34); SGPT/ALT 45.0 U/L (0-55)
[2025-04-16 09:16] LABS: CREATININE 0.38 mg/dL (0.55-1.3)
[2025-04-16] MEDS: ASCORBIC ACID 500 MG TABLET (FP) GT SCH (09:42)
[2025-04-16] MEDS: levETIRAcetam 500 MG/5 ML ORAL SOLUTION (UNIT-DOSE CUPS) GT SCH (09:42)
[2025-04-16] MEDS: MULTIVIT-MINERALS ORAL LIQUID GT SCH (09:42)
[2025-04-16] MEDS: SENNOSIDES/DOCUSATE COMBO (SENNA PLUS) TABLET (UD) PO SCH (09:43)
[2025-04-16] MEDS: ENOXAPARIN NA (PORCINE) 40 MG/0.4 ML DISP.SYRIN SQ SCH (09:43)
[2025-04-16] MEDS: FAMOTIDINE 20 MG/2.5 ML ORAL LIQUID PEG SCH (09:45)
[2025-04-16] MEDS: OXcarbazepine 300 MG/5 ML UNIT DOSE CUPS GT SCH (09:46)
[2025-04-16] MEDS ORDERED: OXcarbazepine 300 MG/5 ML UNIT DOSE CUPS GT SCH (10:00)
[2025-04-16] MEDS ORDERED: levETIRAcetam 500 MG/5 ML ORAL SOLUTION (UNIT-DOSE CUPS) GT SCH (10:00)
[2025-04-16] MEDS ORDERED: LORazepam 2 MG/ML SDV VIAL IVPUSH PRN (15:15)
[2025-04-16] MEDS: PATIENT'S OWN MEDICATION (NON-FORMULARY) (Tizanidine Hcl 2 MG Tablet) GT SCH (15:35)
[2025-04-16] MEDS: CHOLECALCIFEROL (VIT D3) 1,000 UNIT (25 MCG) TABLET GT SCH (22:03)
[2025-04-16 23:44] LABS: HCV DIAGNOSTIC IN-HOUSE W/RFLX NON-REACTIVE (NONREACTIVE); HIV INTERPRETATION NEGATIVE (NEGATIVE)
[2025-04-17 08:27] LABS: GLUCOSE,RANDOM 100.0 mg/dL (74-106); TOT PROT 7.0 g/dl (6.4-8.2)
[2025-04-17 08:28] LABS: CO2 22.0 mmol/L (21-32)
[2025-04-17 08:29] LABS: ALK PHOS 224.0 U/L (40-150)
[2025-04-17 08:32] LABS: SGOT/AST 29.0 U/L (5-34); SGPT/ALT 44.0 U/L (0-55)
[2025-04-17 08:33] LABS: CREATININE 0.39 mg/dL (0.55-1.3)
[2025-04-17 09:32] LABS: ABSOLUTE IMMATURE GRANULOCYTES 0.01 x10^3/uL (0.0-0.031); BASOPHILS # 0.01 x10^3/uL (0.01-0.08); EOSINOPHIL % 0.4 % (0.7-5.8); EOSINOPHILS # 0.02 x10^3/uL (0.04-0.36); MCHC 32.1 g/dl (32.2-35.5); MEAN CELL VOLUME 102.3 fl (79.4-94.8); MEAN PLT VOLUME 9.9 fl (9.4-12.3); MONOCYTE # 0.48 x10^3/uL (0.24-0.86); MONOCYTE % 9.2 % (4.7-12.5); RDW 16.4 % (12.1-16.8)
[2025-04-17] MEDS: MEROPENEM 500 MG in DEXTROSE 5%-WATER 100 ML IVPB SCH (12:12)
[2025-04-17] MEDS: CLOTRIMAZOLE 1% CREAM TP SCH (15:54)
[2025-04-17] MEDS: ACETAMINOPHEN 650 MG/20.3 ML ORAL SOLUTION (CUPS) GT PRN (19:23)
[2025-04-18 07:30] LABS: ABSOLUTE IMMATURE GRANULOCYTES 0.01 x10^3/uL (0.0-0.031); BASOPHILS # 0.01 x10^3/uL (0.01-0.08); EOSINOPHIL % 0.8 % (0.7-5.8); EOSINOPHILS # 0.04 x10^3/uL (0.04-0.36); MCHC 31.8 g/dl (32.2-35.5); MEAN CELL VOLUME 103.0 fl (79.4-94.8); MEAN PLT VOLUME 10.1 fl (9.4-12.3); MONOCYTE # 0.44 x10^3/uL (0.24-0.86); MONOCYTE % 9.2 % (4.7-12.5); RDW 16.0 % (12.1-16.8)
[2025-04-18 07:55] LABS: GLUCOSE,RANDOM 98.0 mg/dL (74-106)
[2025-04-18 07:56] LABS: CO2 22.0 mmol/L (21-32); TOT PROT 6.2 g/dl (6.4-8.2)
[2025-04-18 07:58] LABS: ALK PHOS 223.0 U/L (40-150)
[2025-04-18 08:01] LABS: CREATININE 0.37 mg/dL (0.55-1.3); SGOT/AST 24.0 U/L (5-34); SGPT/ALT 40.0 U/L (0-55)
[2025-04-18] MEDS: ZINC OXIDE 20% TOPICAL OINTMENT 30 GM TUBE TP SCH (09:46)
[2025-04-20 07:37] LABS: MCHC 31.8 g/dl (32.2-35.5); MEAN CELL VOLUME 102.4 fl (79.4-94.8); MEAN PLT VOLUME 9.6 fl (9.4-12.3); RDW 15.9 % (12.1-16.8)
[2025-04-20 08:07] LABS: GLUCOSE,RANDOM 101.0 mg/dL (74-106)
[2025-04-20 08:08] LABS: TOT PROT 6.4 g/dl (6.4-8.2)
[2025-04-20 08:09] LABS: CO2 23.0 mmol/L (21-32)
[2025-04-20 08:10] LABS: ALK PHOS 217.0 U/L (40-150)
[2025-04-20 08:13] LABS: CREATININE 0.33 mg/dL (0.55-1.3); SGOT/AST 29.0 U/L (5-34); SGPT/ALT 47.0 U/L (0-55)
[2025-04-20 08:22] LABS: INR 1.01 (0.83-1.09); PROTHROMBIN TIME (PATIENT) 11.0 SEC (9.7-13.0)
[2025-04-20] MEDS: MEROPENEM 500 MG in DEXTROSE 5%-WATER 100 ML IVPB SCH (15:28)
[2025-04-20] MEDS: ERTAPENEM SODIUM 1 GM in SODIUM CHLORIDE 50 ML IVPB SCH (19:55)
[2025-04-21 09:11] LABS: MCHC 31.8 g/dl (32.2-35.5); MEAN CELL VOLUME 103.0 fl (79.4-94.8); MEAN PLT VOLUME 9.4 fl (9.4-12.3); RDW 15.8 % (12.1-16.8)
[2025-04-21 09:28] LABS: GLUCOSE,RANDOM 82.0 mg/dL (74-106)
[2025-04-21 09:29] LABS: TOT PROT 6.2 g/dl (6.4-8.2)
[2025-04-21 09:30] LABS: CO2 23.0 mmol/L (21-32)
[2025-04-21 09:31] LABS: ALK PHOS 236.0 U/L (40-150)
[2025-04-21 09:34] LABS: CREATININE 0.35 mg/dL (0.55-1.3); SGOT/AST 34.0 U/L (5-34); SGPT/ALT 55.0 U/L (0-55)
[2025-04-21] MEDS: MEROPENEM 500 MG in DEXTROSE 5%-WATER 100 ML IVPB SCH (11:13)
[2025-04-22 07:32] LABS: ABSOLUTE IMMATURE GRANULOCYTES 0.00 x10^3/uL (0.0-0.031); BASOPHILS # 0.02 x10^3/uL (0.01-0.08); EOSINOPHIL % 2.9 % (0.7-5.8); EOSINOPHILS # 0.08 x10^3/uL (0.04-0.36); MCHC 32.2 g/dl (32.2-35.5); MEAN CELL VOLUME 102.9 fl (79.4-94.8); MEAN PLT VOLUME 9.7 fl (9.4-12.3); MONOCYTE # 0.34 x10^3/uL (0.24-0.86); MONOCYTE % 12.1 % (4.7-12.5); RDW 15.5 % (12.1-16.8)
[2025-04-23 08:12] LABS: ABSOLUTE IMMATURE GRANULOCYTES 0.01 x10^3/uL (0.0-0.031); BASOPHILS # 0.02 x10^3/uL (0.01-0.08); EOSINOPHIL % 1.4 % (0.7-5.8); EOSINOPHILS # 0.06 x10^3/uL (0.04-0.36); MCHC 32.2 g/dl (32.2-35.5); MEAN CELL VOLUME 104.0 fl (79.4-94.8); MEAN PLT VOLUME 9.3 fl (9.4-12.3); MONOCYTE # 0.38 x10^3/uL (0.24-0.86); MONOCYTE % 8.6 % (4.7-12.5); RDW 15.4 % (12.1-16.8)
[2025-04-23 08:24] LABS: GLUCOSE,RANDOM 111.0 mg/dL (74-106); TOT PROT 7.0 g/dl (6.4-8.2)
[2025-04-23 08:25] LABS: CO2 23.0 mmol/L (21-32)
[2025-04-23 08:26] LABS: ALK PHOS 272.0 U/L (40-150)
[2025-04-23 08:29] LABS: SGOT/AST 51.0 U/L (5-34); SGPT/ALT 92.0 U/L (0-55)
[2025-04-23 08:30] LABS: CREATININE 0.36 mg/dL (0.55-1.3)
[2025-04-23] MEDS: SCOPOLAMINE HYDROBROMIDE 1 PATCH PATCH.TD72 TD SCH (16:47)
[2025-04-24 06:53] VITALS: RESP 18
[2025-04-24 09:02] LABS: MCHC 31.7 g/dl (32.2-35.5); MEAN CELL VOLUME 104.3 fl (79.4-94.8); MEAN PLT VOLUME 9.7 fl (9.4-12.3); RDW 15.1 % (12.1-16.8)
[2025-04-24 10:00] VITALS: BP 93/53; PULSE 60; TEMP 97.4
[2025-04-24 12:15] LABS: GLUCOSE,RANDOM 108.0 mg/dL (74-106); TOT PROT 6.9 g/dl (6.4-8.2)
[2025-04-24 12:17] LABS: CO2 23.0 mmol/L (21-32)
[2025-04-24 12:18] LABS: ALK PHOS 260.0 U/L (40-150)
[2025-04-24 12:21] LABS: CREATININE 0.33 mg/dL (0.55-1.3); SGOT/AST 58.0 U/L (5-34); SGPT/ALT 98.0 U/L (0-55)
== END 2025-04-24 12:00 | DRG 871 ==
LOC: JER 11:39 → JERBED 18:10 → J7W 20:56
PROVIDERS: ADMIT Student in an Organized Health Care Education/Training Program
DX: A41.89 Other specified sepsis (principal); G80.0 Spastic quadriplegic cerebral palsy; L89.153 Pressure ulcer of sacral region, stage 3; N39.0 Urinary tract infection, site not specified; R00.0 Tachycardia, unspecified; R68.0 Hypothermia, not associated with low environmental temperature; R19.00 Intra-abdominal and pelvic swelling, mass and lump, unspecified site; G40.909 Epilepsy, unspecified, not intractable, without status epilepticus; L89.510 Pressure ulcer of right ankle, unstageable; R33.9 Retention of urine, unspecified; B96.1 Klebsiella pneumoniae [K. pneumoniae] as the cause of diseases classified elsewhere; K21.9 Gastro-esophageal reflux disease without esophagitis; K59.00 Constipation, unspecified; J45.909 Unspecified asthma, uncomplicated; K71.9 Toxic liver disease, unspecified; R10.11 Right upper quadrant pain; Z93.1 Gastrostomy status
CPT/HCPCS: 36415; 71045-TC-FY; 74177-TC; 76705-TC; 76856-TC; 80053; 81003; 82533; 82803; 83605; 83735; 84080; 84100; 84439; 84443; 84481; 84484; 84703; 85025; 85610; 85730; 86803; 86850; 86900; 86901; 87040; 87086; 87389; 87481; 87635; 87637-QW; 93005; 93010; 94640; 99285-25; Q9967